=== PATIENT | female | born 1960 | race Caucasian/White ===

== ENCOUNTER 2019-10-13 06:00 | Outpatient (RCR) | payer MEDICARE, MEDICAID, SELFPAY | END 2019-11-12 00:01 | LOC: SPT 06:00 | PROVIDERS: Family Provider Family Medicine; Visit Provider Internal Medicine Nephrology | DX: I89.0 Lymphedema, not elsewhere classified (principal) | CPT/HCPCS: 97140 ==

== ENCOUNTER 2020-03-20 11:20 | Outpatient (CLI) | payer MEDICARE, MEDICAID, SELFPAY ==
--- NOTE | 2020-03-20 11:29 | XR_ITS ---
WS: [id number] PROCEDURE: XR chest 2V* [id number] CLINICAL INFORMATION: DYSPNEA, DIMINISHED LUNG SOUNDS COMPARISON: April 04, 2019 FINDINGS: Interval removal of the right central venous catheter. Heart: Cardiomegaly. Aortic calcification. Lungs: Hazy groundglass infiltrate in the right lower lobe. Recommend correlation for right lower lob e pneumonia. This can be further evaluated with chest CT. Left lung is well aerated. Bones: Mild thoracic curve convex left. XR/XR chest 2V* [id number] IMPRESSION: Hazy groundglass opacity in the right lower lobe suspicious for pneumonia. This can be further evaluated with CT. Recommend follow-up to resolution.
== END 2020-03-20 11:21 | disposition home or self-care (01) ==
LOC: RADWPI 11:26
PROVIDERS: Family Provider Family Medicine; PCP Family Medicine; Visit Provider Internal Medicine Nephrology
DX: R06.02 Shortness of breath (principal); R06.89 Other abnormalities of breathing; R06.00 Dyspnea, unspecified
CPT/HCPCS: 71046

== ENCOUNTER 2020-04-13 09:12 | Inpatient (IN) | payer MEDICARE, MEDICAID, SELFPAY ==
[2020-04-13] VITALS (29 sets, daily range): BP systolic 104–174; BP diastolic 51–83; PULSE 84–115; RESP 16–28; TEMP 37.7–39.1; O2SAT 95–99; BMI 42.0
--- NOTE | 2020-04-13 10:02 | ED_ITS ---
HPI - Nausea/Vomiting/Diarrhea General: Chief complaint: Nausea/Vomiting/Diarrhea Stated complaint: N/V Time Seen by Provider: 04/13/20 09:29 History of Present Illness: HPI Narrative: 59-year-old female presents the emergency room with complaint of nausea and vomiting for the last month or greater. She states about 2 months ago she was treated with doxycycline for a 10-day course for pneumonia her cough cleared up but she still had a persistent slight nonproductive cough after that. She is getting dry heaves where she has a frothy kind of vomit associated with chronic nausea. She uses promethazine for that she reports her appetite is been bad she denies any hematemesis coffee- ground emesis melena or black tarry stools she does report having measured temps at night up to 10 3-1 05 but they resolved and 90 9 in the morning she usually sees Dr. Bear and she follows with Dr. Lora for peritoneal dialysis which she does 1 exchange daily she is not had any change recently denies any cloudy fluid from her peritoneal dialysis changes. She has been seeing him via video message because of the recent COVID pandemic. Reports she is not been able to take food or fluids well the last several days she was here about a week ago some of those labs reviewed see the notes. MD elicited complaint: nausea and vomiting Pertinent past history: anorexia Onset (ago): minute(s) Description of vomiting: watery Associated nausea: Yes Associated abdominal pain: Yes Location of pain: Diffuse Pain consistency: constant Severity: severe Quality: cramping Exacerbating factors: eating Relieving factors: none Associated symtoms: Reports fatigue, malaise and nausea; Denies chest pain or dysuria Review of Systems Const: Reports: fever(s), chills, body aches, change in appetite, fatigue and malaise ENMT: Denies: throat pain, ear or mastoid pain, nasal discharge or nasal congestion Card: Denies: chest pain, edema, dyspnea on exertion or orthopnea Resp: Reports: non-productive cough; Denies: dyspnea or productive cough GI: Reports: nausea : Denies: flank pain, difficulty voiding, dysuria, urinary frequency or urinary urgency Skin/Breast: Denies: rash or pruritus PFS ED PFSH: Medical History Congestive heart failure Diabetes Diabetes mellitus type 2, insulin-dependent ESRD (end stage renal disease) On peritoneal dialysis. Followed by Dr. Lora Hyperlipidemia Hypertension Hypothyroidism Surgical History History of cholecystectomy History of lumbar surgery Due to epidural abscess in March 2018 Family History Mother Cancer Uterine and breast cancer Father Diabetes Other CAD (coronary artery disease) Social History Smoking and tobacco status: never smoked Alcohol intake: current Alcohol intake frequency: holidays/special occasions only Substance/Drug Use: never Physical Exam Const: GENERAL APPEARANCE: cooperative and comfortable NUTRITIONAL APPEARANCE: obese ORIENTATION/CONSCIOUSNESS: Yes awake, Yes oriented to person, Yes oriented to place and Yes oriented to time OTHER: Ill-appearing on presentation. HENMT: COMMON NORMALS: normocephalic, atraumatic, hearing grossly normal bilaterally, external ears normal, EAC's normal, TM's normal bilaterally, Normal nasal mucous membranes and turbinates present, moist oral mucous membranes and oropharynx normal HEAD & SCALP: normocephalic and atraumatic NOSE: Normal nasal mucous membranes and turbinates present EXTERNAL EAR: Yes external ears normal EXTERNAL AUDITORY CANAL: EAC's normal TYMPANIC MEMBRANE: TM's normal bilaterally Eye: COMMON NORMALS: Equal, round and reactive pupils present, EOMs intact bilaterally, conjunctivae normal and no scleral icterus CONJUNCTIVA: Yes conjunctivae normal PUPIL: Yes Equal, round and reactive pupils present Neck/C-Spine: COMMON NORMALS: full ROM, no lymphadenopathy, supple and no JVD Lymph: LYMPHATIC: no lymphadenopathy noted and no lymphedema noted Resp: COMMON NORMALS: normal respiratory effort, No retractions, No use of accessory muscles and clear to auscultation bilaterally AUSCULTATION: clear to auscultation bilaterally Cardio: COMMON NORMALS: no JVD, regular rate, regular rhythm and No murmurs present (Cardio) RATE: regular rate RHYTHM: regular rhythm GI: COMMON NORMALS: Soft to palpation and No hepatosplenomegaly present AUSCULTATION: Yes normoactive bowel sounds and Yes Hypoactive bowel sounds present PALPATION: Yes Soft to palpation, Yes Tenderness to palpation present (GI) (diffuse), No Guarding due to palpation present (GI) and Yes No hepatosplenomegaly present Extremity: COMMON NORMALS: normal to inspection NARRATIVE EXTREMITY EXAM: 3+ edema lower extremities bilaterally Neuro: SENSORIUM/ORIENTATION: Yes oriented to person, Yes oriented to place and Yes oriented to time Skin: COMMON NORMALS: no rashes or lesions noted GENERAL SKIN EXAM: no rashes or lesions noted Course Vital Signs: Vital signs: Vital Signs Temperature 99.2 F 04/14/20 15:08 Pulse Rate 87 04/14/20 15:08 Respiratory Rate 17 04/14/20 15:08 Blood Pressure 112/63 04/14/20 15:08 Pulse Oximetry 96 04/14/20 15:08 MDM - Nausea/Vomiting/Diarrhea Lab Data: Labs: Lab Results 04/13/20 04/13/20 04/13/20 Range/Units 09:30 10:40 10:40 WBC 17.2 H (4.0-10.0) 10^3/ uL RBC 2.63 L (4.1-5.3) 10^6/u L Hgb 8.5 L (11.5-15.3) g/dL Hct 27.1 L (37.0-47.0) % MCV 103.0 H (81-99) fL MCH 32.3 (28.0-34.0) pg MCHC 31.4 (30.0-36.0) g/dL RDW 12.6 (12.1-15.1) % Plt Count 298 (130-400) 10^3/c mm MPV 9.5 (7.4-10.4) fL Neut % (Auto) 82.4 % Lymph % (Auto) 4.7 % Calloway % (Auto) 11.8 % Eos % (Auto) 0.1 % Baso % (Auto) 0.2 % Neut # (Auto) 14.2 H (1.8-7.7) 10^3/u L Lymph # (Auto) 0.8 (0.8-4.8) 10^3/u L Calloway # (Auto) 2.0 H (0.2-0.9) 10^3/u L Eos # (Auto) 0.0 (0.0-0.8) 10^3/u L Baso # (Auto) 0.0 (0.0-0.1) 10^3/u L Nucleated RBC % (a uto) 0 % Nucleated RBCs # 0.0 /100WBC Specimen Type Sample Site ABG pH (7.35-7.45) ABG pCO2 (35-45) mmHg ABG pO2 (80.0-100.0) mmH g ABG HCO3 (22-26) mmol/L ABG O2 Saturation ABG Base Excess (-2.0-2.0) mmol/ L Jalil Test A-a O2 Gradient (5-10) mmHg Hematocrit (37-47) % Hgb O2 Saturation (95-100) % Carboxyhemoglobin (0.4-20.1) %THgb Methemoglobin (0.4-1.5) % Total Hemoglobin (12-16) g/dL Ionized Calcium (1.1-1.4) mmol/L O2 Delivery Device FiO2 % Pre K Teacher ID Sodium 129 L (136-145) mmol/L Potassium 4.0 (3.5-5.1) mmol/L Chloride 93 L (98-107) mmol/L Carbon Dioxide 16 L (22-29) mmol/L Anion Gap 24.0 H (5-19) BUN 74 H (6-20) mg/dL Creatinine 10.5 H* (0.5-0.9) mg/dL GFR Calculation 3.8 L (90-130) mL/min Glucose 171 H (65-115) mg/dL Calculated Osmolal ity 272 L (285-295) mOsm/k g Lactate (0.5-2.2) mmol/L Calcium 9.2 (8.5-10.5) mg/dL Total Bilirubin 0.9 (0.15-1.2) mg/dL AST 33 H (0-32) U/L ALT 29 (0-33) U/L Alkaline Phosphata se 89 (35-105) IU/L Total Protein 7.6 (6.6-8.7) g/dL Albumin 2.1 L (3.5-5.2) g/dL Globulin 5.5 H (1.3-4.6) g/dL Lipase 18 (13-60) U/L Urine Color Yellow (Yellow) Urine Appearance Cloudy (CLEAR) Urine pH 5 (5-7) Ur Specific Gravit y 1.015 (1.005-1.030) Urine Protein 3+ H (Negative) Urine Glucose (UA) 4+ H (Normal) Urine Ketones Negative (Negative) Urine Blood 3+ H (Negative) Urine Nitrate Negative (Negative) Urine Bilirubin Neg (NEGATIVE) Urine Urobilinogen Norm (Negative) mg/dL Ur Leukocyte Angélica ase Negative (Negative) Urine RBC 0-4 H (0-2) /hpf Urine WBC 0-4 H (0-5) /hpf Ur Squamous Epith Cells 5-10 H (0-5) Amorphous Sediment 1+ Urine Bacteria 2+ H (NONE) Serum Ketones (Negative) Influenza Type A A g (Negative) Influenza Type B A g (Negative) 04/13/20 04/13/20 04/13/20 Range/Units 10:40 10:40 10:47 WBC (4.0-10.0) 10^3/ uL RBC (4.1-5.3) 10^6/u L Hgb (11.5-15.3) g/dL Hct (37.0-47.0) % MCV (81-99) fL MCH (28.0-34.0) pg MCHC (30.0-36.0) g/dL RDW (12.1-15.1) % Plt Count (130-400) 10^3/c mm MPV (7.4-10.4) fL Neut % (Auto) % Lymph % (Auto) % Calloway % (Auto) % Eos % (Auto) % Baso % (Auto) % Neut # (Auto) (1.8-7.7) 10^3/u L Lymph # (Auto) (0.8-4.8) 10^3/u L Calloway # (Auto) (0.2-0.9) 10^3/u L Eos # (Auto) (0.0-0.8) 10^3/u L Baso # (Auto) (0.0-0.1) 10^3/u L Nucleated RBC % (a uto) % Nucleated RBCs # /100WBC Specimen Type Arterial Sample Site Radial, right ABG pH 7.37 (7.35-7.45) ABG pCO2 26.5 L (35-45) mmHg ABG pO2 74.9 L (80.0-100.0) mmH g ABG HCO3 15.3 L (22-26) mmol/L ABG O2 Saturation 96.3 ABG Base Excess -8.9 L (-2.0-2.0) mmol/ L Jalil Test Pos A-a O2 Gradient 40.9 H (5-10) mmHg Hematocrit 27.6 L (37-47) % Hgb O2 Saturation 94.0 L (95-100) % Carboxyhemoglobin 1.3 (0.4-20.1) %THgb Methemoglobin 1.0 (0.4-1.5) % Total Hemoglobin 9.0 L (12-16) g/dL Ionized Calcium 1.1 (1.1-1.4) mmol/L O2 Delivery Device Room air FiO2 21.0 % Pre K Teacher ID cak Sodium 130.0 L (136-145) mmol/L Potassium 3.7 (3.5-5.1) mmol/L Chloride (98-107) mmol/L Carbon Dioxide (22-29) mmol/L Anion Gap (5-19) BUN (6-20) mg/dL Creatinine (0.5-0.9) mg/dL GFR Calculation (90-130) mL/min Glucose 143.0 H (65-115) mg/dL Calculated Osmolal ity (285-295) mOsm/k g Lactate 1.4 (0.5-2.2) mmol/L Calcium (8.5-10.5) mg/dL Total Bilirubin (0.15-1.2) mg/dL AST (0-32) U/L ALT (0-33) U/L Alkaline Phosphata se (35-105) IU/L Total Protein (6.6-8.7) g/dL Albumin (3.5-5.2) g/dL Globulin (1.3-4.6) g/dL Lipase (13-60) U/L Urine Color (Yellow) Urine Appearance (CLEAR) Urine pH (5-7) Ur Specific Gravit y (1.005-1.030) Urine Protein (Negative) Urine Glucose (UA) (Normal) Urine Ketones (Negative) Urine Blood (Negative) Urine Nitrate (Negative) Urine Bilirubin (NEGATIVE) Urine Urobilinogen (Negative) mg/dL Ur Leukocyte Angélica ase (Negative) Urine RBC (0-2) /hpf Urine WBC (0-5) /hpf Ur Squamous Epith Cells (0-5) Amorphous Sediment Urine Bacteria (NONE) Serum Ketones Negative (Negative) Influenza Type A A g (Negative) Influenza Type B A g (Negative) 04/13/20 Range/Units 11:13 WBC (4.0-10.0) 10^3/ uL RBC (4.1-5.3) 10^6/u L Hgb (11.5-15.3) g/dL Hct (37.0-47.0) % MCV (81-99) fL MCH (28.0-34.0) pg MCHC (30.0-36.0) g/dL RDW (12.1-15.1) % Plt Count (130-400) 10^3/c mm MPV (7.4-10.4) fL Neut % (Auto) % Lymph % (Auto) % Calloway % (Auto) % Eos % (Auto) % Baso % (Auto) % Neut # (Auto) (1.8-7.7) 10^3/u L Lymph # (Auto) (0.8-4.8) 10^3/u L Calloway # (Auto) (0.2-0.9) 10^3/u L Eos # (Auto) (0.0-0.8) 10^3/u L Baso # (Auto) (0.0-0.1) 10^3/u L Nucleated RBC % (a uto) % Nucleated RBCs # /100WBC Specimen Type Sample Site ABG pH (7.35-7.45) ABG pCO2 (35-45) mmHg ABG pO2 (80.0-100.0) mmH g ABG HCO3 (22-26) mmol/L ABG O2 Saturation ABG Base Excess (-2.0-2.0) mmol/ L Jalil Test A-a O2 Gradient (5-10) mmHg Hematocrit (37-47) % Hgb O2 Saturation (95-100) % Carboxyhemoglobin (0.4-20.1) %THgb Methemoglobin (0.4-1.5) % Total Hemoglobin (12-16) g/dL Ionized Calcium (1.1-1.4) mmol/L O2 Delivery Device FiO2 % Pre K Teacher ID Sodium (136-145) mmol/L Potassium (3.5-5.1) mmol/L Chloride (98-107) mmol/L Carbon Dioxide (22-29) mmol/L Anion Gap (5-19) BUN (6-20) mg/dL Creatinine (0.5-0.9) mg/dL GFR Calculation (90-130) mL/min Glucose (65-115) mg/dL Calculated Osmolal ity (285-295) mOsm/k g Lactate (0.5-2.2) mmol/L Calcium (8.5-10.5) mg/dL Total Bilirubin (0.15-1.2) mg/dL AST (0-32) U/L ALT (0-33) U/L Alkaline Phosphata se (35-105) IU/L Total Protein (6.6-8.7) g/dL Albumin (3.5-5.2) g/dL Globulin (1.3-4.6) g/dL Lipase (13-60) U/L Urine Color (Yellow) Urine Appearance (CLEAR) Urine pH (5-7) Ur Specific Gravit y (1.005-1.030) Urine Protein (Negative) Urine Glucose (UA) (Normal) Urine Ketones (Negative) Urine Blood (Negative) Urine Nitrate (Negative) Urine Bilirubin (NEGATIVE) Urine Urobilinogen (Negative) mg/dL Ur Leukocyte Angélica ase (Negative) Urine RBC (0-2) /hpf Urine WBC (0-5) /hpf Ur Squamous Epith Cells (0-5) Amorphous Sediment Urine Bacteria (NONE) Serum Ketones (Negative) Influenza Type A A g Negative (Negative) Influenza Type B A g Negative (Negative) Discharge Plan Discharge Patient Disposition: Admitted As Inpatient Admit Provider: Mona Angel Clinical Impression: Peritoneal dialysis catheter in place, Diabetes, ESRD (end stage renal disease), Bacterial peritonitis Condition: Stable Discharge Date/Time: 04/13/20 14:35 Coding Level of Care Code ED Director Of Patient Care for Ankitg Fwd Exam Comprehensive
--- NOTE | 2020-04-13 10:20 | ECG_ITS ---
Measurements Intervals [place] Rate: 110 P: 52 AL: 172 QRS: -2 QRSD: 99 T: 68 QT: 320 QTc: 435 SINUS TACHYCARDIA LEFT ATRIAL ENLARGEMENT [-0.15mV P WAVE IN V1/V2] LEFT VENTRICULAR HYPERTROPHY AND ST-T CHANGE [VOLTAGE CRITERIA PLUS ST/T AB ABNORMALITY] Compared to ECG 04/04/2019 23:21:43 Atrial abnormality now present ST (T wave) deviation now present Sinus rhythm no longer present T-wave abnormality no longer present Electronically Signed On 04-13-2020 17:04:02 CDT by Abdiel Harmon M.D. [email or web address]
--- NOTE | 2020-04-13 10:20 | XR_ITS ---
WS: [id number] XR chest 1V portable [id number] REASON FOR EXAM: dyspnea/cough FINDINGS: Comparisons were made to March 20, 2020. The nodular deformity in the right lower lung has res olved. We note no definite lesions in the area. The lung martin show no pneumonia, pleural effusion, pulmonary edema. The heart mediastinum were normal. XR/XR chest 1V portable [id number] IMPRESSION: Today's findings negative chest
[2020-04-13] MEDS: ondansetron 2 mg/ML SDV 2 mL 4 MG IVP ×2 (10:38→13:05)
[2020-04-13 10:44] LABS: Basophils % 0.2 %; Eosinophils % 0.1 %; Hematocrit 27.1 % (37.0-47.0); Hemoglobin 8.5 g/dL (11.5-15.3); Lymphocytes # 0.8 10^3/uL (0.8-4.8); Lymphocytes % 4.7 %; Mean Corpuscular HGB Conc 31.4 g/dL (30.0-36.0); Mean Corpuscular Hemoglobin 32.3 pg (28.0-34.0); Mean Platelet Volume 9.5 fL (7.4-10.4); Monocytes % 11.8 %; Neutrophils # 14.2 10^3/uL (1.8-7.7); Neutrophils % 82.4 %; Nucleated Red Blood Cells % 0 %; Platelet Count 298 10^3/cmm (130-400); Red Blood Count 2.63 10^6/uL (4.1-5.3); Red Cell Distribution Width 12.6 % (12.1-15.1); White Blood Count 17.2 10^3/uL (4.0-10.0)
[2020-04-13] MEDS: cefTRIAXone 2,000 MG in sodium chloride 0.9% (plus) 50 ML 100 MG IV (10:49)
[2020-04-13 10:55] LABS: Ketone (Acetest) Serum Negative (Negative)
[2020-04-13 10:58] LABS: ABG PCO2 26.5 mmHg (35-45); ABG PH Result 7.37 (7.35-7.45); Alveolar-Arterial Oxygen Gradi 40.9 mmHg (5-10); Arterial Blood Gas Hematocrit 27.6 % (37-47); Base Excess ABG -8.9 mmol/L (-2.0-2.0); Blood Gas Allen Test Pos; Blood Gas Sample Site Radial, right; Blood Gas Sample Type Arterial; Carboxyhemoglobin 1.3 %THgb (0.4-20.1); HCO3 ABG 15.3 mmol/L (22-26); Ionized Calcium Level - ABG 1.1 mmol/L (1.1-1.4); Oxygen Device ROOM AIR; Oxygen Saturation ABG 96.3; PO2 ABG 74.9 mmHg (80.0-100.0); Potassium Level - ABG 3.7 mmol/L (3.5-5.0)
[2020-04-13 11:05] LABS: Alanine Aminotransferase 29 U/L (0-33); Albumin Level 2.1 g/dL (3.5-5.2); Alkaline Phosphatase 89 IU/L (35-105); Aspartate Amino Transferase 33 U/L (0-32); Blood Urea Nitrogen 74 mg/dL (6-20); Calcium 9.2 mg/dL (8.5-10.5); Carbon Dioxide 16 mmol/L (22-29); Chloride 93 mmol/L (98-107); Globulin 5.5 g/dL (1.3-4.6); Glomerular Filtration Rate 3.8 mL/min (90-130); Glucose 171 mg/dL (65-115); Lipase 18 U/L (13-60); Osmolality Calculated 272 mOsm/kg (285-295); Sodium 129 mmol/L (136-145); Total Bilirubin 0.9 mg/dL (0.15-1.2); Total Protein 7.6 g/dL (6.6-8.7)
[2020-04-13 11:06] LABS: Lactate (Lactic Acid level) 1.4 mmol/L (0.5-2.2)
[2020-04-13 11:30] LABS: Add Urine Microscopic? YES; Bilirubin Urine Neg (NEGATIVE); Blood Urine 3+ (Negative); Glucose Urine UA 4+ (Normal); Ketones Urine Negative (Negative); Leukocyte Esterase Urine Negative (Negative); Nitrate Urine Negative (Negative); Protein Urine 3+ (Negative); Specific Gravity, Urine 1.015 (1.005-1.030); Urine Appearance Cloudy (CLEAR); Urine Color Yellow (Yellow); Urobilinogen Urine Norm (Negative); pH Urine 5 (5-7)
[2020-04-13 11:36] LABS: Amorphous Sediment Urine 1+; RBC Urine 0-4 /hpf (0-2); WBC Urine 0-4 /hpf (0-5)
[2020-04-13 11:37] LABS: Add Urine Culture? Yes; Bacteria Urine 2+
[2020-04-13 11:42] LABS: Influenza A by IFA Negative (Negative); Influenza B by IFA Negative (Negative)
--- NOTE | 2020-04-13 11:56 | CT_ITS ---
WS: [id number] CT abdomen pelvis wo con [id number] REASON FOR EXAM: abd pain IV CONTRAST ADMINISTERED: Without TOTAL EXAM DLP: 1399.[address] scans at [facility] use at least one of these dose optimization techniques: automat ed exposure control; mA and/or kV adjustment per patient size (includes targeted exams where dose is matched to clinical indication); or iterative reconstruction. FINDINGS: The mediastinum was normal as well as the lower lungs. The liver showed no infiltrating changes. Gallbladder surgically absent. The spleen, stomach, adrenal glands are all normal. The right and left adrenal glands are enlarged and hypodense. The right and left kidneys show normal appearance no stones or hydronephrosis. The umbilical area was normal The large bowel in the right was normal no appendicitis seen. In the lower mid line of the abdomen is a catheter extends from the area just adjacent to the paraumb ilical area and is seated in the midline. The urinary bladder was normal. The descending colon as well as the sigmoid colon was essentially normal. A contracted uterus is seen. The pelvis show normal appearance bony structures and the lumbar spine degenerate changes no destruct nery changes. In the soft tissue of the back appears to be some edema this changes of the subcutaneous area and muscles. There is heavy arteriosclerotic changes of the vasculature. CT/CT abdomen pelvis wo con [id number] IMPRESSION: A catheter is seen in the midline of the lower abdomen and adequate position Bilateral enlargement of the adrenal glands. The posterior soft tissues suggests low-grade anasarca. Heavy arteriosclerotic changes of the vasculature.
--- NOTE | 2020-04-13 12:20 | PM.HP ---
Providers/Chief Complaint Admitting Physician: Mona Angel DO Primary Care Provider: Karen Bear MD Chief Complaint: N/V History of Present Illness Alesia Shaw is a 59 year old female with a past medical history of end-stage renal disease on peritoneal dialysis, hypertension, diastolic congestive heart failure, history of an epidural abscess, hypothyroidism and diabetes that presented to the emergency department today for nausea, vomiting, diarrhea for 1 month. Patient reported that she is also been having fever for the past 1 month. Patient reports that she has had a fever at home as high as 105. She stated that is typically worse at night. She reports that she has been having intractable nausea, vomiting and diarrhea that is been bad for 1 month but is become worse over the past 2 weeks. She stated that she has discussed this with providers via telemedicine. She reported that she was diagnosed with pneumonia and completed a course of doxycycline. She has had a dry intermittent cough for the past 1 month, no sputum production, no hemoptysis. Patient denies any exposure to CO VID-19. Patient reports that her nausea will occur throughout the day, no significant association with time or eating. She reports loose diarrhea stools, has been on recent antibiotics for pneumonia as noted. She reports that she is also on well water, her at home has not been sick. She notes some occasional vague abdominal discomfort, no sharp or stabbing pains. Patient reports having history of MRSA with a history of an epidural abscess that was treated at [facility] in [facility] in 2018. She denies any rashes or skin changes. She reports history of chronic lymphedema in the lower extremities of which she is on torsemide. Patient reports that she has not been able to keep down any food or water over the past few days due to worsening nausea, vomiting and diarrhea. Patient was seen and evaluated in the emergency department noted to have concern for sepsis with concern for spontaneous bacterial peritonitis. She was given Rocephin 2 g once and requested for admission to the hospital. Due to her length of symptoms CT scan of the abdomen and pelvis, without contrast due to contrast allergy, was requested. Nephrology consulted. Review of Systems Const: Reports: fever(s) and chills Eyes: Denies: change in vision ENMT: Denies: nasal congestion Card: Reports: edema; Denies: chest pain or palpitations Resp: Reports: non-productive cough; Denies: dyspnea, productive cough or hemoptysis GI: Reports: nausea, vomiting and diarrhea; Denies: abdominal pain, constipation, hematochezia or melena : Denies: dysuria or hematuria Musc: Denies: extremity pain or muscle cramps Skin/Breast: Denies: rash or new lesions Neuro: Denies: headache(s) or dizziness Psych: Denies: anxiety or depression Endo: Denies: polyuria or hot flashes Jimmy/Lymph: Denies: easy bruising or easy bleeding Medications/Allergies Home Medications Medication Instructions Recorded Confirmed Last Taken Type carvedilol 25 mg tablet 12.5 mg PO BID 04/02/20 04/13/20 04/12/20 History clonidine HCl 0.1 mg tablet 0.1 mg PO TID PRN 04/02/20 04/13/20 Unknown History levothyroxine 150 mcg tablet 150 mcg PO DAILY 04/02/20 04/13/20 04/13/20 History promethazine 25 mg tablet 25 mg PO QID PRN 04/02/20 04/13/20 Unknown History sodium bicarbonate 650 mg tablet 650 mg PO BID 04/02/20 04/13/20 04/12/20 History torsemide 20 mg tablet 40 mg PO DAILY PRN tab 04/02/20 04/13/20 Unknown History ergocalciferol (vitamin D2) 1,250 mcg PO DAILY 04/13/20 04/13/20 04/12/20 History insulin NPH and regular human See Rx Instructions .ROUTE .COMPLEX 04/13/20 04/13/20 04/13/20 History [Novolin 70/30 U-100 Insulin] vit B [id number]-M-ibtet ac-zinc 1 tab PO DAILY 04/13/20 04/13/20 04/12/20 History [RenaPlex] Allergies Allergy/AdvReac Type Severity Reaction Status Date / Time codeine Allergy Unknown Verified 04/02/20 10:56 Iodinated Contrast Media Allergy ALGY-Hives Verified 04/02/20 10:56 insulin detemir AdvReac Unknown Verified 04/02/20 10:56 [From Levemir U-100 Insulin] insulin glargine AdvReac Unknown Verified 04/02/20 10:56 [From Lantus U-100 Insulin] PFSH Acute PFSH: Medical History Congestive heart failure Diabetes Diabetes mellitus type 2, insulin-dependent ESRD (end stage renal disease) On peritoneal dialysis. Followed by Dr. Lora Hyperlipidemia Hypertension Hypothyroidism Surgical History History of cholecystectomy History of lumbar surgery Due to epidural abscess in March 2018 Family History Mother Cancer Uterine and breast cancer Father Diabetes Other CAD (coronary artery disease) Social History (Updated 04/13/20 @ 13:39 by Mona Angel DO) Smoking and tobacco status: never smoked Alcohol intake: current Alcohol intake frequency: holidays/special occasions only Substance/Drug Use: never Vitals/I&O/Wt Last Vital Signs Temp 101.6 F H 04/13/20 09:22 Pulse 94 04/13/20 09:42 Resp 16 04/13/20 11:16 BP 127/77 04/13/20 09:42 Pulse Ox 98 04/13/20 09:42 04/12/20 04/13/20 04/13/20 22:59 06:59 14:59 Intake Total 50 / 50 Balance 50 / 50 Weight last 48 hrs Weight 121.563 kg Physical Exam Const: COMMON NORMALS: patient oriented x3 and alert GENERAL APPEARANCE: cooperative and ill appearing ORIENTATION/CONSCIOUSNESS: Yes awake, Yes oriented to person, Yes oriented to place and Yes oriented to time HENMT: COMMON NORMALS: normocephalic and atraumatic HEAD & SCALP: normocephalic and atraumatic Eye: COMMON NORMALS: Equal, round and reactive pupils present PUPIL: Yes Equal, round and reactive pupils present Neck/C-Spine: COMMON NORMALS: supple GENERAL: Yes normal visual inspection Resp: COMMON NORMALS: normal respiratory effort and clear to auscultation bilaterally EFFORT & INSPECTION: Yes able to speak in complete sentences AUSCULTATION: clear to auscultation bilaterally, no crackles, no rales, no rhonchi and no wheezes Cardio: COMMON NORMALS: regular rhythm and No murmurs present (Cardio) RATE: tachycardic RHYTHM: regular rhythm GI: OTHER: Soft, mild diffuse tenderness, no guarding or rigidity, PD catheter site in place with no surrounding erythema or drainage. Normal bowel sounds : COMMON NORMALS: Yes no CVA tenderness BLADDER/KIDNEY EXAM: Yes no CVA tenderness Extremity: NARRATIVE EXTREMITY EXAM: 4+ pitting edema in the lower extremities bilaterally Neuro: COMMON NORMALS: patient oriented x3, CN's II-XII intact bilaterally, moves all extremities and no focal motor deficits SENSORIUM/ORIENTATION: Yes alert, Yes oriented to person, Yes oriented to place and Yes oriented to time SPEECH: speech normal Psych: COMMON NORMALS: mental status grossly normal and cooperative Skin: COMMON NORMALS: no rashes or lesions noted GENERAL SKIN EXAM: no rashes or lesions noted Data : 04/13/20 10:40 04/13/20 13:55 CT Abd/Pel: I personally reviewed and interpreted this imaging study as follows: Radiologist's impression: FINDINGS: The mediastinum was normal as well as the lower lungs. The liver showed no infiltrating changes. Gallbladder surgically absent. The spleen, stomach, adrenal glands are all normal. The right and left adrenal glands are enlarged and hypodense. The right and left kidneys show normal appearance no stones or hydronephrosis. The umbilical area was normal The large bowel in the right was normal no appendicitis seen. In the lower mid line of the abdomen is a catheter extends from the area just adjacent to the paraumbilical area and is seated in the midline. The urinary bladder was normal. The descending colon as well as the sigmoid colon was essentially normal. A contracted uterus is seen. The pelvis show normal appearance bony structures and the lumbar spine degenerate changes no destructive changes. In the soft tissue of the back appears to be some edema this changes of the subcutaneous area and muscles. There is heavy arteriosclerotic changes of the vasculature. CT/CT abdomen pelvis wo con [id number] IMPRESSION: A catheter is seen in the midline of the lower abdomen and adequate position Bilateral enlargement of the adrenal glands. The posterior soft tissues suggests low-grade anasarca. Heavy arteriosclerotic changes of the vasculature. CXR: I personally reviewed and interpreted this imaging study as follows: Radiologist's impression: FINDINGS: Comparisons were made to March 20, 2020. The nodular deformity in the right lower lung has resolved. We note no definite lesions in the area. The lung martin show no pneumonia, pleural effusion, pulmonary edema. The heart mediastinum were normal. XR/XR chest 1V portable [id number] IMPRESSION: Today's findings negative chest A&P Assessment and plan (1) Bacterial peritonitis: Concern for bacterial peritonitis in the setting of peritoneal dialysis Admit to ICU Given 2g Rocephin in the ED, will continue Nephrology consulted while patient was in the ED, appreciate recommendations and assistance in patient's care. Would recommend to have peritoneal fluid obtained for further fluid studies. Blood cultures ordered and pending Status: Acute (2) ESRD (end stage renal disease): Patient is on peritoneal dialysis, followed by Dr. Lora Nephrology consulted. Patient with metabolic acidosis and hyponatremia Status: Acute (3) Diabetes: Patient is on insulin 70/30, 35 units in the morning and 30 units at bedtime Status: Acute (4) Sepsis: Secondary to bacterial peritonitis. Blood cultures ordered and pending, urine culture ordered and pending, will obtain peritoneal fluid for culture and further studies Lactic acid ordered with reflex Close monitoring in the ICU Given IV fluids in the ED, will check serial sodium Status: Acute (5) Hyponatremia: In the setting of patient being on peritoneal dialysis, on torsemide, intractable nausea vomiting and diarrhea that is been worse over the past several weeks. Serial sodium checks Given IV fluids, normal saline while in the ED, will recheck sodium and determine further management at that time. Patient with significant lower extremity edema with prior diagnoses of diastolic congestive heart failure Will check urine sodium, patient reports that she still makes some urine despite being on dialysis Status: Acute (6) Metabolic acidosis: Secondary to sepsis Status: Acute Additional A&P Information Hypothyroidism: TSH within normal limits, continue home levothyroxine Anemia: no active bleeding, appears to be related to chronic disease DVT ppx: Heparin DIet: NPO due to intractable nausea and vomiting Code status: Full code, discussed with patient. Attestations Medical Necessity Statement*: Patient requires ICU admission due to sepsis with continued fever, end-stage renal disease on dialysis with concern for acute hyponatremia and bacterial peritonitis. Expected stay greater than 2 midnights Coding Level of Care Code Acute Outpatient Scheduler for Chg Fwd Exam Comprehensive Diagnoses Bacterial peritonitis K65.9 ESRD (end stage renal disease) N18.6 Diabetes E11.9 Sepsis A41.9 Hyponatremia E87.1 Metabolic acidosis E87.2
[2020-04-13] MEDS: sodium chloride 0.9% 1,000 ML 999 ML IV (12:21)
--- NOTE | 2020-04-13 13:11 | US_ITS ---
WS: [id number] RENAL ULTRASOUND URINARY BLADDER ULTRASOUND HISTORY: Sepsis, UTI COMPARISON: 08/15/2018 TECHNIQUE: 2-D and color Doppler imaging of the kidney submitted. Right kidney: 13.3 cm x 6.6 cm x 5.6 cm. Normal echogenicity with no hydronephrosis or mass. Left kidney: 12.8 cm x 4.7 cm x 6.3 cm. Normal size kidney. The kidney is difficult to visualize due to body habitus. No hydronephrosis. Aorta: Normal. Urinary Bladder: Slightly distended urinary bladder. No intraluminal filling defect. Poor visualizati on of the urinary bladder. US/US renal BI* [id number] IMPRESSION: 1. Limited evaluation of the LEFT kidney and urinary bladder. 2. No hydronephrosis. 3. No atrophy.
[2020-04-13 14:25] LABS: Sodium 130 mmol/L (136-145); Thyroid Stimulating Hormone 1.76 uIU/mL (0.27-4.20)
[2020-04-13] MEDS: heparin 5,000 unit/mL INJ 1 mL 5000 UNIT SUBCUT (15:05)
[2020-04-13] MEDS: sodium chloride 0.9% 1,000 ML 100 ML IV (15:05)
[2020-04-13] MEDS: promethazine 25 mg Tablet PO (15:13)
[2020-04-13] MEDS: acetaminophen 325 mg Tablet 650 MG PO (15:36)
[2020-04-13 16:52] LABS: Lactic Sepsis W/Reflex 0.8 mmol/L (0.5-2.2)
[2020-04-13 16:54] LABS: Glucose Point of Care 130 mg/dL (70-110)
[2020-04-13 17:12] LABS: Body Fluid Polynuclear #Cells 0.019 10^3/uL; Body Fluid WBC 71 /uL; Monocytes # Body Fluid 0.052 10^3/uL; RBC, Body Fluid 0 10^3/uL (0-0)
[2020-04-13] MEDS: insulin aspart 70/30 100 units/1 mL 15 UNIT SUBCUT (17:12)
[2020-04-13] MEDS: sodium bicarbonate 650 mg Tablet PO (17:13)
[2020-04-13] MEDS: carvedilol 12.5 mg Tablet PO (17:13)
[2020-04-13 17:16] LABS: Magnesium 1.6 mg/dL (1.7-2.3); Phosphorus 5.4 mg/dL (2.5-4.5)
[2020-04-13 18:31] LABS: Color, Body Fluid PALE YELLOW (PALE YELLOW)
[2020-04-13 18:32] LABS: Apprearance, Body Fluid CLEAR (CLEAR)
[2020-04-13 18:34] LABS: Body Fluid Specific Gravity 1.015
[2020-04-13 18:35] LABS: PATH Referral YES
[2020-04-13 19:08] LABS: Fluid Alkaline Phos. 5 IU/L
[2020-04-13 19:09] LABS: Albumin Body Fluid 0.4 g/dL; Amylase Body Fluid 3 U/L; Cholesterol Body Fluid 7 mg/dL (0-200); LDH Body Fluid 42 U/L; Total Protein Body Fluid 1 g/dL; Triglycerides Body Fluid 16 mg/dL (0-150); Uric Acid Body Fluid 9 mg/dL
[2020-04-13 19:56] LABS: Glucose Point of Care 96 mg/dL (70-110)
[2020-04-13 20:25] LABS: Anion Gap 20.6 (5-19); Blood Urea Nitrogen 76 mg/dL (6-20); Calcium 8.3 mg/dL (8.5-10.5); Carbon Dioxide 15 mmol/L (22-29); Chloride 98 mmol/L (98-107); Glomerular Filtration Rate 3.8 mL/min (90-130); Glucose 94 mg/dL (65-115); Osmolality Calculated 269 mOsm/kg (285-295); Potassium 3.6 mmol/L (3.5-5.1); Sodium 130 mmol/L (136-145)
--- NOTE | 2020-04-13 21:32 | PM.CONSULT ---
Providers/Reason For Consult Consulting Physican/Specialty*: telenephrology Reason for Consult*: ESRD care Attending Physician: Mona Angel DO Primary Care Provider: Karen Bear MD History of Present Illness History of Present Illness Alesia Shaw is a 59 year old female with a past medical history of end-stage renal disease on peritoneal dialysis, hypertension, diastolic congestive heart failure, history of an epidural abscess, hypothyroidism and diabetes. Pt was admitted w/ a 1 month h/o n/v/d/abd pain, and recently fevers. She was recently diagnosed with pneumonia and treated w/ doxycycline. She has had a dry intermittent cough for the past 1 month No known exposure to COVID-19. Patient reports having history of MRSA with a history of an epidural abscess that was treated at [facility] in [facility] in 2018. Review of Systems General: Reports: 10 or more systems reviewed and unremarkable except in HPI and below Narrative: weak, fevers, headaches, nausea, no sob, no cp. + dry cough, + abd pain, + edema, depressed/ anxious over clinical situation Meds/Allergies Home Medications and Allergies Home Medications Medication Instructions Recorded Confirmed Last Taken Type carvedilol 25 mg tablet 12.5 mg PO BID 04/02/20 04/13/20 04/12/20 History clonidine HCl 0.1 mg tablet 0.1 mg PO TID PRN 04/02/20 04/13/20 Unknown History levothyroxine 150 mcg tablet 150 mcg PO DAILY 04/02/20 04/13/20 04/13/20 History promethazine 25 mg tablet 25 mg PO QID PRN 04/02/20 04/13/20 Unknown History sodium bicarbonate 650 mg tablet 650 mg PO BID 04/02/20 04/13/20 04/12/20 History torsemide 20 mg tablet 40 mg PO DAILY PRN tab 04/02/20 04/13/20 Unknown History ergocalciferol (vitamin D2) 1,250 mcg PO DAILY 04/13/20 04/13/20 04/12/20 History insulin NPH and regular human See Rx Instructions .ROUTE .COMPLEX 04/13/20 04/13/20 04/13/20 History [Novolin 70/30 U-100 Insulin] vit B [id number]-tpbxk ac-zinc 1 tab PO DAILY 04/13/20 04/13/20 04/12/20 History [RenaPlex] Allergies Allergy/AdvReac Type Severity Reaction Status Date / Time codeine Allergy Unknown Verified 04/02/20 10:56 Iodinated Contrast Media Allergy ALGY-Hives Verified 04/02/20 10:56 insulin detemir AdvReac Unknown Verified 04/02/20 10:56 [From Levemir U-100 Insulin] insulin glargine AdvReac Unknown Verified 04/02/20 10:56 [From Lantus U-100 Insulin] Current Medications Current Medications Generic Name Dose Route Start Last Admin Trade Name Freq PRN Reason Stop Dose Admin Acetaminophen 650 mg 04/13/20 14:35 04/13/20 15:36 Tylenol PO 650 mg Q6H PRN Administration MILD PAIN Carvedilol 12.5 mg 04/13/20 18:00 04/13/20 17:13 Coreg PO 12.5 mg BID SHELBY Administration Heparin Sodium (Beef Lung) 5,000 unit 04/13/20 14:35 04/13/20 15:05 Heparin SUBCUT 5,000 unit Q12H SHELBY Administration Sodium Chloride 1,000 mls @ 100 mls/hr 04/13/20 14:35 04/13/20 15:05 Sodium Chloride 0.9% IV 100 mls/hr .Q10H SHELBY Administration Insulin Aspart 0 unit 04/13/20 18:00 04/13/20 16:59 Novolog SUBCUT Not Given TIDWM SHELBY Protocol Insulin Aspart 0 unit 04/13/20 21:00 04/13/20 20:39 Novolog SUBCUT Not Given BEDTIME SHELBY Protocol Insulin Aspart 15 unit 04/13/20 18:00 04/13/20 17:12 Novolog 70/30 SUBCUT 15 unit 0800,1800 SHELBY Administration Promethazine HCl 25 mg 04/13/20 14:35 04/13/20 15:13 Phenergan PO 25 mg QID PRN Administration Nausea Sodium Bicarbonate 650 mg 04/13/20 18:00 04/13/20 17:13 Sodium Bicarbonate PO 650 mg BID SHELBY Administration PFSH Acute PFSH: Medical History Congestive heart failure Diabetes Diabetes mellitus type 2, insulin-dependent ESRD (end stage renal disease) On peritoneal dialysis. Followed by Dr. Lora Hyperlipidemia Hypertension Hypothyroidism Surgical History History of cholecystectomy History of lumbar surgery Due to epidural abscess in March 2018 Family History Mother Cancer Uterine and breast cancer Father Diabetes Other CAD (coronary artery disease) Social History (Updated 04/13/20 @ 13:39 by Mona Angel DO) Smoking and tobacco status: never smoked Alcohol intake: current Alcohol intake frequency: holidays/special occasions only Substance/Drug Use: never Vitals/I&O/Wt Last Vital Signs Temp 101.3 F H 04/13/20 17:15 Pulse 86 04/13/20 20:00 Resp 18 04/13/20 20:00 BP 126/65 04/13/20 20:00 Pulse Ox 96 04/13/20 20:00 04/13/20 04/13/20 04/13/20 06:59 14:59 22:59 Intake Total 50 / 50 Balance 50 / 50 Weight last 48 hrs Weight 121.563 kg Physical Exam Narrative: EXAM NARRATIVE: uncomfortable, in bed NARD Heent- nc/at, eomi neck no jvp lungs crackles b/l heart reg abd soft, nt, +BS, + peritoneal dialysis catheter- c/d/i ext ++ b/l edema neuro- a,a, o x 3 Data Micro: Micro: Microbiology 04/13/20 10:45 Blood Culture - Pr eliminary Blood SPECIMEN [facility] BRYANNA 04/13/20 10:40 Blood Culture - Pr eliminary Blood SPECIMEN [facility] A&P Additional A&P Information 59 yr old female ESRD,hypothyroidism, IDDM, diastolic dysfunction, h/o MRSA epidual abscess. recent doxycycline use. 1. fevers and leukocytosis- PD fluids only 71 wbc -low for Peritonitis- will repeat in am -will give vancomycin 1 gm iv -LDH 2. ESRD- will do CAPD 4 exchanges of 2.5% gluc, 2 l fills 3. BP low for her- dec meds 4. anemia- check spep/ sife, iron studies- Q if due to fevers 5. abd pain- neg CT scan. monitor w/ PD and abx 6. hypothyroidiam- check tsh 7. hyponatremia- monitor w/ CAPD 8. Bone- minerla -metabelism of ESRD- check phos and pth -may need a binder if eating well 9. replace mag 10. enlarged adrenal glands on CT scan- per hospitalist. consider outpt endo eval Consult Attestations Medical Necessity Statement: fevers/ ESRD Time Spent in Patient Care: Greater than 35 minutes Coding Level of Care Code Acute Stretching Machine Operator for Gregorio Thompson
[2020-04-13] MEDS: vancomycin 1,000 MG in sodium chloride 0.9% 250 ML 250 MG IV (22:39)
[2020-04-13] MEDS: Dianeal low Ca w/2.5% dex 2,000 mL Bag 2000 ML INTRAPERIT (22:41)
[2020-04-14] VITALS (39 sets, daily range): BP systolic 106–153; BP diastolic 53–84; PULSE 84–92; RESP 9–25; TEMP 36.8–38.1; O2SAT 90–97
[2020-04-14] MEDS: sodium chloride 0.9% 1,000 ML 100 ML IV (00:56)
[2020-04-14] MEDS: heparin 5,000 unit/mL INJ 1 mL 5000 UNIT SUBCUT ×2 (01:44→13:40)
[2020-04-14] MEDS: Dianeal low Ca w/2.5% dex 2,000 mL Bag 2000 ML INTRAPERIT ×5 (06:09→23:08)
[2020-04-14 06:15] LABS: Hemoglobin 6.6 g/dL (11.5-15.3); Mean Corpuscular HGB Conc 31.7 g/dL (30.0-36.0); Mean Platelet Volume 9.8 fL (7.4-10.4); Nucleated Red Blood Cells % 0 %; Platelet Count 238 10^3/cmm (130-400); Red Blood Count 2.06 10^6/uL (4.1-5.3); Red Cell Distribution Width 12.7 % (12.1-15.1); White Blood Count 13.6 10^3/uL (4.0-10.0)
[2020-04-14 06:23] LABS: Iron 22 ug/dL (37-145); Magnesium 1.8 mg/dL (1.7-2.3); Percent Saturation 34.3 % (20-50); Phosphorus 6.2 mg/dL (2.5-4.5); Total Iron Binding Capacity 64 mcg/dl; Unsaturated Iron Binding 42 ug/dL (112-347)
[2020-04-14 06:25] LABS: Alanine Aminotransferase 29 U/L (0-33); Albumin Level 1.7 g/dL (3.5-5.2); Alkaline Phosphatase 68 IU/L (35-105); Anion Gap 21.8 (5-19); Aspartate Amino Transferase 39 U/L (0-32); Blood Urea Nitrogen 74 mg/dL (6-20); Calcium 8.3 mg/dL (8.5-10.5); Carbon Dioxide 15 mmol/L (22-29); Chloride 98 mmol/L (98-107); Globulin 4.2 g/dL (1.3-4.6); Glomerular Filtration Rate 3.7 mL/min (90-130); Glucose 128 mg/dL (65-115); Osmolality Calculated 273 mOsm/kg (285-295); Potassium 3.8 mmol/L (3.5-5.1); Sodium 131 mmol/L (136-145); Total Bilirubin 0.8 mg/dL (0.15-1.2); Total Protein 5.9 g/dL (6.6-8.7)
[2020-04-14 06:40] LABS: Parathyroid Hormone 68.2 pg/mL (15-65)
[2020-04-14 06:41] LABS: Hematocrit 20.8 % (37.0-47.0)
[2020-04-14 06:42] LABS: Ferritin 2611 ng/mL (15-150)
[2020-04-14 06:43] LABS: Calcium 4.8 mg/dL (8.5-10.5)
--- NOTE | 2020-04-14 07:02 | PM.PN ---
Subjective Subjective: Interval history: weak, diarrhea, sob. nausea, fevers Medications: Reviewed: Yes Medication Review Details: Current Medications Acetaminophen (Tylenol) 650 mg PO Q6H PRN PRN Reason: MILD PAIN Last Admin: 04/13/20 15:36 Dose: 650 mg Documented by: Carvedilol (Coreg) 12.5 mg PO BID [facility] Last Admin: 04/13/20 17:13 Dose: 12.5 mg Documented by: Dextrose (D50w) 25 ml IVP ONCE PRN; Protocol PRN Reason: hypoglycemia protocol Dextrose (D50w) 50 ml IVP PRN PRN; Protocol PRN Reason: hypoglycemia protocol Ergocalciferol (Vitamin D2) 50,000 unit PO SuWe@0600 [facility] Glucagon (Glucagen) 1 mg IM ONCE PRN; Protocol PRN Reason: Adult Acute Hypoglycemia Prot. Heparin Sodium (Beef Lung) (Heparin) 5,000 unit SUBCUT Q12H [facility] Last Admin: 04/14/20 01:44 Dose: 5,000 unit Documented by: Ceftriaxone Sodium 2,000 mg/ (Sodium Chloride) 50 mls @ 100 mls/hr IV Q24H SHELBY; Protocol Dextrose (D5w) 500 mls @ 100 mls/hr IV ONCE PRN; Protocol PRN Reason: Adult Acute Hypoglycemia Prot Sodium Chloride (Sodium Chloride 0.9%) 1,000 mls @ 100 mls/hr IV .Q10H [facility] Last Admin: 04/14/20 00:56 Dose: 100 mls/hr Documented by: Insulin Aspart (Novolog) 0 unit SUBCUT TIDWM [facility]; Protocol Last Admin: 04/13/20 16:59 Dose: Not Given Documented by: Insulin Aspart (Novolog) 0 unit SUBCUT BEDTIME [facility]; Protocol Last Admin: 04/13/20 20:39 Dose: Not Given Documented by: Insulin Aspart (Novolog 70/30) 15 unit SUBCUT 0800,1800 [facility] Last Admin: 04/13/20 17:12 Dose: 15 unit Documented by: Levothyroxine Sodium (Synthroid) 150 mcg PO DAILY [facility] Naloxone HCl (Narcan) 0.1 mg IVP Q2M PRN PRN Reason: RESPIRATORY RATE < 8/MIN Non-Formulary Medication (Vit B Rhtroys-X-Vycqn Ac-Zinc [Renaplex]) 1 tab PO DAILY [facility] Peritoneal Dialysis Solution (Dianeal Low Ca W/2.5% Dex) 2,000 ml INTRAPERIT 5XD SHELBY Last Admin: 04/14/20 06:09 Dose: 2,000 ml Documented by: Promethazine HCl (Phenergan) 25 mg PO QID PRN PRN Reason: Nausea Last Admin: 04/13/20 15:13 Dose: 25 mg Documented by: Vitals/I&O/Wt Last Vital Signs Temp 98.5 F 04/14/20 03:42 Pulse 87 04/14/20 04:00 Resp 19 H 04/14/20 04:00 BP 126/63 04/14/20 04:00 Pulse Ox 94 04/14/20 04:00 04/13/20 04/14/20 04/14/20 22:59 06:59 14:59 Intake Total 1287 / 1337 Balance 1287 / 1337 Weight last 48 hrs Weight 121.563 kg Physical Exam Narrative: EXAM NARRATIVE: comfortable, in bed NARD, sob Heent- nc/at, eomi neck no jvp lungs crackles b/l heart reg abd soft, nt, +BS, + peritoneal dialysis catheter- c/d/i ext ++ b/l edema neuro- a,a, o x 3 Data : 04/14/20 05:25 04/14/20 05:25 Micro: Microbiology 04/13/20 18:05 C.difficile Toxin B Gene (PCR) - Final Stool - Stool Aspirate 04/13/20 14:57 Gram Stain - Final Peritoneal Fluid 04/13/20 10:45 Blood Culture - Preliminary Blood SPECIMEN COLLECTED 04/13/20 10:40 Blood Culture - Preliminary Blood SPECIMEN COLLECTED A&P Additional A&P Information 59 yr old female ESRD,hypothyroidism, IDDM, diastolic dysfunction, h/o MRSA epidual abscess. recent doxycycline use. 1. fevers and leukocytosis- PD fluids only 71 wbc -low for Peritonitis- will repeat cell count and gram stain today -monitor vanco levels -LDH -i am concerned that anemia and fevers may be related- please eval for Malignancy and rheum causes of fevers 2. ESRD- will do CAPD 5exchanges of 2.5% gluc, 2 l fills 3. BP is good 4. anemia- check spep/ sife -high ferritin and iron studies -consider tx 2 u prbc -start epo 5. abd pain- neg CT scan. monitor w/ PD and abx c diff negative 6. hypothyroidiam- check tsh 7. hyponatremia- monitor w/ CAPD 8. Bone- mineral -metabelism of ESRD- start phos binder - pth is low for her- no calcitriol 9. metabolic acidosis- from diarrhea and renal failure- monitor 10. enlarged adrenal glands on CT scan- per hospitalist. consider outpt endo eval 11. repeat calcium as both 8.3 and 4.8 discussed w/ pt and RN Attestations Medical Necessity Statement*: anemia, fevers, ESRD Time Spent in Patient Care: Greater than 35 minutes Coding Level of Care Code Acute Dairy Farmer for Gregorio Thompson
[2020-04-14 07:08] LABS: Hematocrit 23.1 % (37.0-47.0); Hemoglobin 7.3 g/dL (11.5-15.3)
[2020-04-14 07:21] LABS: Glucose Point of Care 158 mg/dL (70-110)
--- NOTE | 2020-04-14 07:32 | CT_ITS ---
WS: [id number] CT chest wo con [id number] REASON FOR EXAM: Fever uncertain origin, cough IV CONTRAST ADMINISTERED: None. TOTAL EXAM DLP: 867.[address] scans at [facility] use at least one of these dose optimization techniques: automat ed exposure control; mA and/or kV adjustment per patient size (includes targeted exams where dose is matched to clinical indication); or iterative reconstruction. FINDINGS: Ascites is seen in the abdomen. The liver shows no infiltrating changes. There is heavy arteriosclerotic changes of the coronary arteries. The peripheral lung show no definite consolidation or pneumonia no pulmonary edema. The thoracic spine shows degenerated changes. CT/CT chest wo con [id number] IMPRESSION: Ascites. the lungs show no definite infiltrates.
[2020-04-14] MEDS: carvedilol 12.5 mg Tablet PO ×2 (08:49→17:46)
[2020-04-14] MEDS: levothyroxine 150 mcg Tablet PO (08:49)
[2020-04-14] MEDS: insulin aspart 70/30 100 units/1 mL 15 UNIT SUBCUT ×2 (08:49→17:46)
[2020-04-14] MEDS: calcium acetate 667 mg Capsule 1334 MG PO ×4 (08:49→17:46)
--- NOTE | 2020-04-14 08:49 | MR_ITS ---
WS: [id number] MRI THORACIC SPINE noncontrast. HISTORY: fever, bacteremia, history of epidural abscess T11-T12 COMPARISON: None available. TECHNIQUE: Multiplanar sequences are performed in sagittal and axial planes. Study is compromised by motion artifact. No contrast was given for this examination therefore epidura l abscess may not be visualized. No fractures or increased STIR or T2 signal within the vertebral bodies to suggest osteomyelitis or d iscitis. Large postsurgical defects in the lower thoracic spine at T11 and T12 from prior decompressi on. There is a linear area of abnormal signal in the conus centered at the T11-12 level. Abnormal signal extends over length of 2.5 cm. On the sagittal image this is predominantly within the midline of the dorsal cord. This is also at the level of the prior surgery. There is no mass effect upon the cord. T here is slight enlargement and widening of the conus. MR/MR thoracic spin wo con* [id number] IMPRESSION: 1. No significant mass effect or cord compression. 2. Linear abnormal T2 signal in the intramedullary cord at the T11-12 level ex tending over a length of 2.5 cm. Signal abnormality within the dorsal midline o f the cord. Differential includes cord infarct, demyelinating lesion and transv erse myelitis/HIV myelitis. Neoplasm thought less likely but cannot be excluded . Additional possible lesions to consider are vitamin deficiency such as B12 an d copper.
--- NOTE | 2020-04-14 08:49 | MR_ITS ---
WS: [id number] MRI LUMBAR SPINE NONCONTRAST HISTORY: fever, bacteremia, history of epidural abscess COMPARISON: 04/05/2018. TECHNIQUE: Sagittal and axial multisequence imaging is submitted. Study was terminated early due to patient discomfort. Prior posterior decompression from T11 to L1 of the posterior vertebral bodies. Previous the describe d abscess at the T11-12 location. Conus tapers to the L1 level. There is mild displacement of the conus and the nerve roots probably du e to adhesions. There is thickening of the nerve roots extending from the conus with clumping and tet felicitas from arachnoiditis. No acute marrow edema. L1-L2: No significant stenosis. L2-L3: Diffuse asymmetric disc osteophyte disease with significant encroachment into the LEFT lateral recess and foramen. Unchanged. L3-L4: Severe central canal stenosis due to ligamentum flavum disease and facet arthritis. Central di sc protrusion is also present. L4-L5: There is a large disc osteophyte complex centrally causing deformity of the ventral thecal sac . Marked clumping of the nerve roots. Similar to the prior study. L5-S1: Osteophytic ridging. No significant stenosis or change. Large amount of fluid in the peritoneal cavity. Marked atrophy of the muscles in the paraspinal regio n and the psoas muscles. MR/MR lumbar spine wo con* [id number] IMPRESSION: 1. Limited evaluation due to lack of contrast and motion and early termination of the study due to patient discomfort. 2. Multilevel areas of central and foraminal stenosis are stable since 04/05/20 18. 3. Decompression of the thoracolumbar spine from T11 to L1 secondary to the pr eviously described epidural abscess. The abscess is no longer present. 4. Again noted is the vague area of increased signal in the posterior thoracic cord at the T11-12 level. See MRI thoracic spine report. 5. 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 6. There is significant stenosis within the lumbar spine as described above. S imilar to the prior study of 04/05/2018.
--- NOTE | 2020-04-14 08:53 | USCV_ITS ---
Shaw, Susan Age: 59 Gender: F : 1960 Exam Date: 04/14/2020 11:04 Ordering Phys: Mona Angel DO Technologist: Janey Millard Exam Location[place] [facility] [place]ication: BACTEREMIA BP: 119 / 53 HR: 85 Rhythm: Sinus Technical Quality: Adequate MEASUREMENTS (Male / Female) Normal Values 2D ECHO LV Diastolic Diameter PLAX 5.4 cm 4.2 - 5.9 / 3.9 - 5.3 cm LV Systolic Diameter PLAX 2.6 cm LV Chamber Size 4.4 cm IVS Diastolic Thickness 0.9 cm 0.6 - 1.0 / 0.6 - 0.9 cm IVS Systolic Thickness 1.6 cm LVPW Diastolic Thickness 1.8 cm 0.6 - 1.0 / 0.6 - 0.9 cm LVPW Systolic Thickness 1.8 cm RV Chamber Size 3.1 cm LVOT Diameter 2.0 cm LV Ejection Fraction 2D Teich 83.3 % LV Ejection Fraction MOD 2C 40.3 % LV Ejection Fraction 2C AL 40.4 % LA Diameter 4.1 cm LA Width 3.6 cm LA Height 5.1 cm RA Width 3.8 cm RA Height 4.1 cm Aorta at Sinotubular Diameter 3.7 cm M-MODE LV Diastolic Diameter MM 5.3 cm 4.2 - 5.9 / 3.9 - 5.3 cm LV Systolic Diameter MM 3.5 cm LV Ejection Fraction MM Teich 62.1 % IVS Diastolic Thickness MM 1.2 cm 0.6 - 1.0 / 0.6 - 0.9 cm IVS Systolic Thickness MM 1.3 cm LVPW Diastolic Thickness MM 1.2 cm 0.6 - 1.0 / 0.6 - 0.9 cm LVPW Systolic Thickness MM 1.9 cm RV Diastolic Diameter MM 1.1 cm Aortic Annulus Diameter 3.0 cm LA Ao Ratio MM 1.4 MV E Point Septal Separation 0.6 cm DOPPLER AV Peak Velocity 181.0 cm/s LVOT Peak Velocity 85.0 cm/s AV Area Cont Eq vti 2.2 cm squared AV Area Cont Eq pk 1.6 cm squared MV Area PHT 4.4 cm squared Mitral E to A Ratio 1.2 MV E' Velocity 9.0 cm/s Mitral E to MV E' Ratio 11.3 Mitral E to LV E' Lateral Ratio 11.4 Mitral E to LV E' Septal Ratio 11.3 TR Peak Velocity 224.8 cm/s TR Peak Gradient 20.2 mmHg TR Mean Velocity 158.6 cm/s TR Mean Gradient 11.6 mmHg TR Velocity Time Integral 51.5 cm Right Atrial Pressure 5.0 mmHg Pulmonary Artery Systolic Pressu 25.2 mmHg PV Peak Velocity 71.0 cm/s RV Acceleration Time 0.1 s RV Ejection Time 0.3 s RV AcT/ET 0.5 FINDINGS Left Ventricle Normal left ventricular size and systolic function, EF 55 %. No gross wall motion normalities Right Ventricle Normal right ventricular size and systolic function. Right Atrium Normal right atrial size. Left Atrium Normal left atrial size. Mitral Valve No gross abnormalities noted Aortic Valve Thickened aortic valve. Tricuspid Valve Mild tricuspid valve regurgitation. Pulmonic Valve Pulmonic valve not well visualized. Pericardium No pericardial effusion. Aorta Normal aortic annulus size. CONCLUSIONS Normal left ventricular size and systolic function, EF 55 %. No gross wall motion normalities. Thickened aortic valve. Mild tricuspid valve regurgitation. There is no pericardial effusion. There are no intracardiac masses. Comparison with the previous study is difficult because of the difference in the technical quality. Consider ERIN, if clinically indicated Dr Elizabeth Gaines MD FACC (Electronically Signed) Final Date: 14 April 2020 20:57 S
[2020-04-14 09:06] LABS: C Reactive Protein 165.4 mg/L (0.0-4.9); Lactate Dehydrogenase 240 U/L (135-214)
--- NOTE | 2020-04-14 09:12 | P.PN_ITS ---
Subjective Subjective: Interval history: Patient awake in bed at time of exam today. Discussed with patient positive blood culture that just returned prior to entering the room. She reported understanding, discussed with her the need for further imaging of her thoracic and lumbar spine. Patient verbalized understanding and agreed. Discussed with patient about HIV testing, she verbalized understanding and agreed with plan. Patient reports that nausea is improved today, no further abdominal pain, continues to have loose stools. Reports chronic nonproductive cough. Patient denies any myalgias or arthralgias Medications: Reviewed: Yes Medication Review Details: Current Medications Acetaminophen (Tylenol) 650 mg PO Q6H PRN PRN Reason: MILD PAIN Last Admin: 04/13/20 15:36 Dose: 650 mg Documented by: Carvedilol (Coreg) 12.5 mg PO BID SHELBY Last Admin: 04/13/20 17:13 Dose: 12.5 mg Documented by: Dextrose (D50w) 25 ml IVP ONCE PRN; Protocol PRN Reason: hypoglycemia protocol Dextrose (D50w) 50 ml IVP PRN PRN; Protocol PRN Reason: hypoglycemia protocol Ergocalciferol (Vitamin D2) 50,000 unit PO SuWe@0600 SHELBY Glucagon (Glucagen) 1 mg IM ONCE PRN; Protocol PRN Reason: Adult Acute Hypoglycemia Prot. Heparin Sodium (Beef Lung) (Heparin) 5,000 unit SUBCUT Q12H SHELBY Last Admin: 04/14/20 01:44 Dose: 5,000 unit Documented by: Ceftriaxone Sodium 2,000 mg/ (Sodium Chloride) 50 mls @ 100 mls/hr IV Q24H SHELBY; Protocol Dextrose (D5w) 500 mls @ 100 mls/hr IV ONCE PRN; Protocol PRN Reason: Adult Acute Hypoglycemia Prot Sodium Chloride (Sodium Chloride 0.9%) 1,000 mls @ 100 mls/hr IV .Q10H SHELBY Last Admin: 04/14/20 00:56 Dose: 100 mls/hr Documented by: Insulin Aspart (Novolog) 0 unit SUBCUT TIDWM SHELBY; Protocol Last Admin: 04/13/20 16:59 Dose: Not Given Documented by: Insulin Aspart (Novolog) 0 unit SUBCUT BEDTIME SHELBY; Protocol Last Admin: 04/13/20 20:39 Dose: Not Given Documented by: Insulin Aspart (Novolog 70/30) 15 unit SUBCUT 0800,1800 SHELBY Last Admin: 04/13/20 17:12 Dose: 15 unit Documented by: Levothyroxine Sodium (Synthroid) 150 mcg PO DAILY [facility] Naloxone HCl (Narcan) 0.1 mg IVP Q2M PRN PRN Reason: RESPIRATORY RATE < 8/MIN Non-Formulary Medication (Vit B [id number] Ac-Zinc [Renaplex]) 1 tab PO DAILY [facility] Peritoneal Dialysis Solution (Dianeal Low Ca W/2.5% Dex) 2,000 ml INTRAPERIT 5XD [facility] Last Admin: 04/14/20 06:09 Dose: 2,000 ml Documented by: Promethazine HCl (Phenergan) 25 mg PO QID PRN PRN Reason: Nausea Last Admin: 04/13/20 15:13 Dose: 25 mg Documented by: Vitals/I&O/Wt Last Vital Signs Temp 99.4 F 04/14/20 08:00 Pulse 18 L 04/14/20 08:00 Resp 18 04/14/20 08:00 BP 133/73 04/14/20 08:00 Pulse Ox 95 04/14/20 08:00 04/13/20 04/14/20 04/14/20 22:59 06:59 14:59 Intake Total 1287 / 1337 Balance 1287 / 1337 Weight last 48 hrs Weight 121.563 kg Physical Exam Const: COMMON NORMALS: patient oriented x3 and alert GENERAL APPEARANCE: cooperative and ill appearing ORIENTATION/CONSCIOUSNESS: Yes awake, Yes or iented to person, Yes oriented to place and Yes oriented to time HENMT: COMMON NORMALS: normocephalic and atraumatic HEAD & SCALP: normocephalic and atraumatic Eye: COMMON NORMALS: Equal, round and reactive pupils present PUPIL: Yes Equal, round and reactive pupils present Neck/C-Spine: COMMON NORMALS: supple GENERAL: Yes normal visual inspection Resp: COMMON NORMALS: normal respiratory effort and clear to auscultation bilaterally EFFORT & INSPECTION: Yes able to speak in complete sentences AUSCULTATION: clear to auscultation bilaterally, no crackles, no rales, no rhonchi and no wheezes Cardio: COMMON NORMALS: regular rate, regular rhythm and No murmurs present (Cardio) RATE: regular rate RHYTHM: regular rhythm GI: OTHER: Obese, soft, no tenderness today, PD catheter in place with no surrounding erythema or drainage : COMMON NORMALS: Yes no CVA tenderness BLADDER/KIDNEY EXAM: Yes no CVA tenderness Back/Pelvis: COMMON NORMALS: no CVA tenderness Extremity: NARRATIVE EXTREMITY EXAM: 4+ pitting edema in the lower extremities bilaterally Neuro: COMMON NORMALS: patient oriented x3, CN's II-XII intact bilaterally, moves all extremities and no focal motor deficits SENSORIUM/ORIENTATION: Yes alert, Yes oriented to person, Yes oriented to place and Yes oriented to time SPEECH: speech normal Psych: COMMON NORMALS: mental status grossly normal and cooperative Skin: COMMON NORMALS: no rashes or lesions noted GENERAL SKIN EXAM: no rash es or lesions noted Data : 04/14/20 07:03 04/14/20 05:25 Micro: Microbiology 04/14/20 08:40 Blood Culture - Preliminary Blood SPECIMEN COLLECTED 04/14/20 08:40 Blood Culture - Preliminary Blood SPECIMEN COLLECTED 04/13/20 10:40 Blood Culture - Preliminary Blood Gram positive cocci 04/13/20 18:05 C.difficile Toxin B Gene (PCR) - Final Stool - Stool Aspirate 04/13/20 14:57 Gram Stain - Final Peritoneal Fluid 04/13/20 10:45 Blood Culture - Preliminary Blood SPECIMEN COLLECTED A&P Assessment and plan (1) Bacterial peritonitis: Concern for bacterial peritonitis in the setting of peritoneal dialysis on initial exam due to her underlying symptoms. Patient's gram stain shows no organisms and further culture pending. In the setting of PD she does have WBC of 71. Will continue on Rocephin at this time until further culture returns Nephrology consulted while patient was in the ED, appreciate recommendations and assistance in patient's care. Status: Acute (2) ESRD (end stage renal disease): Patient is on peritoneal dialysis, followed by Dr. Lora Nephrology consulted, continue PD as recommended Status: Acute (3) Diabetes: Patient is on insulin 70/30, 35 units in the morning and 30 units at bedtime. Decreased to 15 units in the morning and 15 units at bedtime due to intractable nausea and vomiting Status: Acute (4) Sepsis: Concern initially for perotinitis Patient has been reporting fever for approx 1 month Blood culture returned today with 1/4 bottles positive for gram positive cocci with history of epidural abscess in 03/2018 will further evaluate with MRI of the thoracic and lumbar spine Fluid cultures showing no organisms on gram stain, will follow up with culture and continue on Rocephin and Vancomycin at this time Urine culture pending Repeat blood culture today ECHO ordered due to bacteremia Status: Acute (5) Hyponatremia: In the setting of patient being on peritoneal dialysis, on torsemide, intractable nausea vomiting and diarrhea that is been worse Slow improvement concern for SIADH Status: Acute (6) Metabolic acidosis: Secondary to sepsis Status: Acute Additional A&P Information Recurrent fevers: this has been progressive over the past month. Appreciate nephrology consultation. Checking several lab studies to determine if this could be related to hematologic process versus infections versus rheumatologic process. WILLIAM, rheumatoid factor, peripheral smear with manual diff, ESR, CRP. With question of hemotologic process will check reticulocyte count, LDH, B12, folate. Also now presence of positive blood culture as noted above. Will continue on empiric antibiotics and with history of epidural abscess will check MRI of spine. CT chest ordered due to fever for 1 month and cough. Stool cultures pending. Perotineal fluid shows no organisms on gram stain, WBC 71, do not believe this is related to BP at this time and concern for underlying staph infection due to past medical history of MRSA abscess. Hypothyroidism: TSH within normal limits, continue home levothyroxine Chronic lymphedema Anemia: Macrocytic anemia, peripheral smear, manual diff added. Ferritin elevated, no evidence of any neurologic involvement, LFTs with only very slight AST elevation. Secondary hyperparathyroidism in the setting of dialysis History of epidural abscess T11-T12 in 03/2018: Repeat MRI of the thoracic and lumbar spine ordered DVT ppx: Heparin DIet: Clear liquid diet Code status: Full code, discussed with patient. Attestations Medical Necessity Statement*: Patient requires further hospitalization due to sepsis secondary to bacteremia, ESRD with history of epidural abscess. Coding Level of Care Code Acute Lifestyle Block Farmer for Chg Fwd Exam Comprehensive Diagnoses Bacterial peritonitis K65.9 ESRD (end stage renal disease) N18.6 Diabetes E11.9 Sepsis A41.9 Hyponatremia E87.1 Metabolic acidosis E87.2
[2020-04-14 09:14] LABS: LAB Peripheral Smear Sent for Review
[2020-04-14 09:19] LABS: Absolute Segmented Neutrophil 10.3 10/cmm (1.6-7.1); Band Neutrophils Absolute 2.2 10^3/cmm (0.0-1.2); Segmented Neutrophils 76 %; Total Cells Counted 100 (0-100)
[2020-04-14 09:20] LABS: Absolute Neutrophil 12.5 10^3/cmm (1.4-6.5); Platelet Estimate Normal (Normal); Rouleau 1+
[2020-04-14 09:30] LABS: Erythrocyte Sedimentation Rate > 120 mm/hr (0-15); Folate Level > 20.0 ng/mL (4.8-37.3); Vitamin B12 > 2000 pg/mL (232-1245)
[2020-04-14 09:35] LABS: HIV 1 & 2 Antibody Non-Reactive (Non-Reactiv); HIV 1 & 2 Antigen Non-Reactive (Non-Reactiv)
[2020-04-14 09:47] LABS: Hepatitis A Antibody IgM Non-Reactive (Nonreactive); Hepatitis B Core AB, Total Non-Reactive (Nonreactive); Hepatitis B Surface AB 60.4 (0-8.5); Hepatitis B Surface Antigen Non-Reactive (Nonreactive); Hepatitis C Virus Antibody Non-Reactive (Nonreactive)
[2020-04-14 10:09] LABS: INR 1.51 (0.8-1.2)
[2020-04-14 10:15] LABS: Lymphocytes 0 %; Lymphocytes Absolute 0.1 10^3/cmm (1.2-3.4)
[2020-04-14] MEDS: cefTRIAXone 2,000 MG in sodium chloride 0.9% (plus) 50 ML 100 MG IV (10:40)
[2020-04-14 11:17] LABS: Glucose Point of Care 161 mg/dL (70-110)
[2020-04-14] MEDS: LORazepam 1 mg Tablet PO (11:35)
[2020-04-14] MEDS: sodium chloride 0.9% (100 ml) 100 ML 50 ML (13:39)
[2020-04-14 15:17] LABS: Apprearance, Body Fluid CLEAR (CLEAR); Color, Body Fluid COLORLESS (PALE YELLOW)
[2020-04-14 15:20] LABS: Body Fluid WBC 11 /uL; RBC, Body Fluid 0 10^3/uL (0-0)
[2020-04-14 15:23] LABS: PATH Referral YES
[2020-04-14] MEDS: sodium chloride 0.9% (100 ml) 100 ML 125 ML (17:40)
[2020-04-14 17:55] LABS: Glucose Point of Care 233 mg/dL (70-110)
--- NOTE | 2020-04-14 18:20 | PC.NURSE ---
shift review Patient taken for chest CT this AM, taken by bed, she tolerated well. Patient taken for MRI if spine at approximately 1230, this nurse went with her, she tolerated most of the scan well, but towards the end began experiencing lower back pain. Once patient was back on the EMS stretcher, and able to sit up, the bck pain was relieved. Once back to her room at approximately 1330, patient was placed back in bed, and her blood transfusions were started. Patient gave consent for blood products. Patient tolerated first transfusion well. Second transfusion started. This nurse performed PD dialysis x3.
[2020-04-14 21:42] LABS: Glucose Point of Care 212 mg/dL (70-110)
[2020-04-14 23:12] LABS: Basophils # 0.1 10^3/uL (0.0-0.1); Basophils % 0.4 %; Eosinophils # 0.4 10^3/uL (0.0-0.8); Eosinophils % 2.8 %; Hematocrit 27.3 % (37.0-47.0); Hemoglobin 9.1 g/dL (11.5-15.3); Lymphocytes # 0.6 10^3/uL (0.8-4.8); Lymphocytes % 4.2 %; Mean Corpuscular HGB Conc 33.3 g/dL (30.0-36.0); Mean Corpuscular Hemoglobin 32.6 pg (28.0-34.0); Mean Corpuscular Volume 97.8 fL (81-99); Mean Platelet Volume 9.4 fL (7.4-10.4); Monocytes # 1.4 10^3/uL (0.2-0.9); Monocytes % 9.9 %; Neutrophils # 11.4 10^3/uL (1.8-7.7); Neutrophils % 80.6 %; Nucleated Red Blood Cells % 0 %; Platelet Count 292 10^3/cmm (130-400); Red Blood Count 2.79 10^6/uL (4.1-5.3); Red Cell Distribution Width 14.9 % (12.1-15.1); White Blood Count 14.1 10^3/uL (4.0-10.0)
[2020-04-15] VITALS (24 sets, daily range): BP systolic 110–149; BP diastolic 50–78; PULSE 68–84; RESP 13–23; TEMP 37.1–37.9; O2SAT 92–100
[2020-04-15] MEDS: acetaminophen 325 mg Tablet 650 MG PO ×2 (03:02→13:12)
[2020-04-15] MEDS: heparin 5,000 unit/mL INJ 1 mL 5000 UNIT SUBCUT ×2 (03:02→14:59)
[2020-04-15 05:34] LABS: Basophils # 0.1 10^3/uL (0.0-0.1); Basophils % 0.4 %; Eosinophils # 0.5 10^3/uL (0.0-0.8); Eosinophils % 3.6 %; Hemoglobin 8.5 g/dL (11.5-15.3); Lymphocytes # 0.6 10^3/uL (0.8-4.8); Lymphocytes % 4.2 %; Mean Corpuscular HGB Conc 32.7 g/dL (30.0-36.0); Mean Corpuscular Volume 97.7 fL (81-99); Mean Platelet Volume 9.5 fL (7.4-10.4); Monocytes # 1.4 10^3/uL (0.2-0.9); Monocytes % 10.5 %; Neutrophils # 10.4 10^3/uL (1.8-7.7); Neutrophils % 77.1 %; Nucleated Red Blood Cells % 0 %; Platelet Count 271 10^3/cmm (130-400); Red Blood Count 2.66 10^6/uL (4.1-5.3); White Blood Count 13.5 10^3/uL (4.0-10.0)
[2020-04-15 05:51] LABS: Alanine Aminotransferase 34 U/L (0-33); Albumin Level 1.8 g/dL (3.5-5.2); Alkaline Phosphatase 80 IU/L (35-105); Anion Gap 22.5 (5-19); Aspartate Amino Transferase 36 U/L (0-32); Blood Urea Nitrogen 73 mg/dL (6-20); Calcium 8.9 mg/dL (8.5-10.5); Carbon Dioxide 17 mmol/L (22-29); Chloride 97 mmol/L (98-107); Globulin 4.4 g/dL (1.3-4.6); Glomerular Filtration Rate 3.7 mL/min (90-130); Glucose 224 mg/dL (65-115); Osmolality Calculated 282 mOsm/kg (285-295); Potassium 3.5 mmol/L (3.5-5.1); Sodium 133 mmol/L (136-145); Total Bilirubin 1.7 mg/dL (0.15-1.2); Total Protein 6.2 g/dL (6.6-8.7)
[2020-04-15] MEDS: Dianeal low Ca w/2.5% dex 2,000 mL Bag 2000 ML INTRAPERIT ×4 (06:23→23:01)
[2020-04-15] MEDS: ergocalciferol (vitamin D2) 50,000 Unit Capsule 50000 UNIT PO (06:53)
[2020-04-15 06:54] LABS: Phosphorus 5.7 mg/dL (2.5-4.5)
[2020-04-15 07:47] LABS: Glucose Point of Care 225 mg/dL (70-110)
[2020-04-15] MEDS: carvedilol 12.5 mg Tablet PO ×2 (07:52→17:33)
[2020-04-15] MEDS: levothyroxine 150 mcg Tablet PO (07:52)
[2020-04-15] MEDS: calcium acetate 667 mg Capsule 1334 MG PO ×3 (07:52→17:33)
[2020-04-15] MEDS: insulin aspart 70/30 100 units/1 mL 15 UNIT SUBCUT (07:54)
[2020-04-15 08:13] LABS: INR 1.33 (0.8-1.2)
--- NOTE | 2020-04-15 09:07 | PM.PN ---
Subjective Subjective: Interval history: feels better. had low grade temp overnight. still w/ poor appetite and nausea. some sob, leg edema. Medications: Reviewed: Yes Medication Review Details: Current Medications Acetaminophen (Tylenol) 650 mg PO Q6H PRN PRN Reason: MILD PAIN Last Admin: 04/15/20 03:02 Dose: 650 mg Documented by: Calcium Acetate (Phoslo) 1,334 mg PO TIDWM SHELBY Last Admin: 04/15/20 07:52 Dose: 1,334 mg Documented by: Carvedilol (Coreg) 12.5 mg PO BID SHELBY Last Admin: 04/15/20 07:52 Dose: 12.5 mg Documented by: Dextrose (D50w) 25 ml IVP ONCE PRN; Protocol PRN Reason: hypoglycemia protocol Dextrose (D50w) 50 ml IVP PRN PRN; Protocol PRN Reason: hypoglycemia protocol Ergocalciferol (Vitamin D2) 50,000 unit PO SuWe@0600 SHELBY Last Admin: 04/15/20 06:53 Dose: 50,000 unit Documented by: Glucagon (Glucagen) 1 mg IM ONCE PRN; Protocol PRN Reason: Adult Acute Hypoglycemia Prot. Heparin Sodium (Beef Lung) (Heparin) 5,000 unit SUBCUT Q12H SHE[place] Last Admin: 04/15/20 03:02 Dose: 5,000 unit Documented by: Ceftriaxone Sodium 2,000 mg/ (Sodium Chloride) 50 mls @ 100 mls/hr IV Q24H SHELBY; Protocol Last Admin: 04/14/20 10:40 Dose: 100 mls/hr Documented by: Dextrose (D5w) 500 mls @ 100 mls/hr IV ONCE PRN; Protocol PRN Reason: Adult Acute Hypoglycemia Prot Vancomycin HCl 1,000 mg/ (Sodium Chloride) 250 mls @ 250 mls/hr IV Q72H SHE[place]; Protocol Insulin Aspart (Novolog) 0 unit SUBCUT TIDWM SHE[place]; Protocol Last Admin: 04/15/20 07:53 Dose: 8 unit Documented by: Insulin Aspart (Novolog) 0 unit SUBCUT BEDTIME [facility]; Protocol Last Admin: 04/14/20 21:50 Dose: 3 unit Documented by: Insulin Aspart (Novolog 70/30) 15 unit SUBCUT 0800,1800 SHELBY Last Admin: 04/15/20 07:54 Dose: 15 unit Documented by: Levothyroxine Sodium (Synthroid) 150 mcg PO DAILY [facility] Last Admin: 04/15/20 07:52 Dose: 150 mcg Documented by: Naloxone HCl (Narcan) 0.1 mg IVP Q2M PRN PRN Reason: RESPIRATORY RATE < 8/MIN Non-Formulary Medication (Vit B Qzbxzui-[id number]-[id number] Ac-Zinc [Renaplex]) 1 tab PO DAILY [facility] Peritoneal Dialysis Solution (Dianeal Low Ca W/2.5% Dex) 2,000 ml INTRAPERIT 5XD [facility] Last Admin: 04/15/20 06:23 Dose: 2,000 ml Documented by: Promethazine HCl (Phenergan) 25 mg PO QID PRN PRN Reason: Nausea Last Admin: 04/13/20 15:13 Dose: 25 mg Documented by: Vitals/I&O/Wt Last Vital Signs Temp 98.7 F 04/15/20 06:00 Pulse 70 04/15/20 08:00 Resp 20 H 04/15/20 08:00 BP 141/68 04/15/20 08:00 Pulse Ox 99 04/15/20 08:00 04/14/20 04/15/20 04/15/20 22:59 06:59 14:59 Intake Total 2700 / 2700 2000 / 4700 460 / 460 Output Total 5700 / 5700 Balance 2700 / 2700 -3700 / -1000 460 / 460 Weight last 48 hrs Weight 126.099 kg Weight 126.099 kg Weight 121.563 kg Physical Exam Narrative: EXAM NARRATIVE: comfortable, in bed, sitting up Heent- nc/at, eomi neck no jvp lungs crackles b/l heart reg abd soft, nt, +BS, + peritoneal dialysis catheter- c/d/i ext ++ b/l edema neuro- a,a, o x 3 Data : 04/15/20 05:16 04/15/20 05:16 Micro: Microbiology 04/14/20 08:40 Blood Culture - Preliminary Blood NEGATIVE TO DATE 04/14/20 08:40 Blood Culture - Preliminary Blood NEGATIVE TO DATE 04/13/20 14:57 Gram Stain - Final Peritoneal Fluid 04/13/20 10:45 Blood Culture - Preliminary Blood NEGATIVE TO DATE 04/13/20 10:40 Blood Culture - Preliminary Blood Gram positive cocci 04/13/20 18:05 Enteric Pathogens (PCR) - Final Stool - Stool Aspirate Parasite Antigen Panel - Final C.difficile Toxin B Gene (PCR) - Final 04/13/20 09:30 Urine Culture - Preliminary Urine,Clean Catch 04/14/20 04:09 Gram Stain - Final Peritoneal Fluid A&P Additional A&P Information 59 yr old female ESRD,hypothyroidism, IDDM, diastolic dysfunction, h/o MRSA epidual abscess. recent doxycycline use. 1. fevers and leukocytosis- gram + cocci bacteremia in 2/4 cultures -abx as per hospitalist - PD fluids only 71 wbc -and dec yesterday, unlikely peritonitis -monitor vanco levels 2. ESRD- will do CAPD 5exchanges of 2.5% gluc, 2 l fills 3. BP is good 4. anemia- check spep/ sife -high ferritin and iron studies -continue epo 5. hypothyroidiam- tsh 1.76 - is normal 6. hyponatremia- monitor w/ CAPD- is improving 7. Bone- mineral -metabelism of ESRD- start phos binder - pth is low for her- no calcitriol 8. metabolic acidosis- from diarrhea and renal failure- improving w/ CAPD 8. enlarged adrenal glands on CT scan- per hospitalist. consider outpt endo eval discussed w/ pt, Dr. Angel, and RN Attestations Medical Necessity Statement*: bacteremia, esrd, anemia Time Spent in Patient Care: 16 - 35 minutes Coding Level of Care Code Acute Video Editing Intern for Ankitg Jay
[2020-04-15 09:17] LABS: HDL Cholesterol 17 mg/dL (60-100); Triglycerides 155 mg/dL (0-150)
--- NOTE | 2020-04-15 09:32 | P.PN_ITS ---
Subjective Subjective: Interval history: Patient awake in bed at time of exam. She reported that she is feeling slightly better today. Able to tolerate oral diet with improvement in nausea. She denies any abdominal pain. Reports back pain due to sitting, no numbness or tingling in the upper or lower extremities, able to move all extremities as normal. Discussed with patient imaging findings from yesterday, discussed with her that these were reviewed with neurosurgeon with concern for chronic changes. Also discussed with patient plan for critical care consultation today. Discussed with patient plan for further work-up and evaluation, patient verbalized understanding and agreed with plan. Vitals/I&O/Wt Last Vital Signs Temp 98.7 F 04/15/20 06:00 Pulse 70 04/15/20 08:00 Resp 20 H 04/15/20 08:00 BP 141/68 04/15/20 08:00 Pulse Ox 99 04/15/20 08:00 04/14/20 04/15/20 04/15/20 22:59 06:59 14:59 Intake Total 2700 / 2700 2000 / 4700 460 / 460 Output Total 5700 / 5700 Balance 2700 / 2700 -3700 / -1000 460 / 460 Weight last 48 hrs Weight 126.099 kg Weight 126.099 kg Physical Exam Const: COMMON NORMALS: patient oriented x3 and alert GENERAL APPEARANCE: cooperative ORIENTATION/CONSCIOUSNESS: Yes awake, Yes oriented to person, Yes oriented to place and Yes oriented to time HENMT: COMMON NORMALS: normocephalic and atraumatic HEAD & SCALP: normocephalic and atraumatic Eye: COMMON NORMALS: Equal, round and reactive pupils present PUPIL: Yes Equal, round and reactive pupils present Neck/C-Spine: COMMON NORMALS: supple GENERAL: Yes normal visual inspection Resp: COMMON NORMALS: normal respiratory effort and clear to auscultation bilaterally EFFORT & INSPECTION: Yes able to speak in complete sentences AUSCULTATION: clear to auscultation bilaterally, no crackles, no rales, no rhonchi and no wheezes Cardio: COMMON NORMALS: regular rate, regular rhythm and No murmurs present (Cardio) RATE: regular rate RHYTHM: regular rhythm GI: OTHER: Obese, soft, non-tender, PD catheter in place with no surrounding erythema or drainage Back/Pelvis: OTHER: No spinous process tenderness Extremity: NARRATIVE EXTREMITY EXAM: 3+ pitting edema in the lower extremities bilaterally Neuro: COMMON NORMALS: patient oriented x3, CN's II-XII intact bilaterally, moves all extremities and no focal motor deficits SENSORIUM/ORIENTATION: Yes alert, Yes oriented to person, Yes oriented to place and Yes oriented to time SPEECH: speech normal Psych: COMMON NORMALS: mental status grossly normal and cooperative Skin: COMMON NORMALS: no rashes or lesions noted GENERAL SKIN EXAM: no rashes or lesions noted Data : 04/15/20 05:16 04/15/20 05:16 Micro: Microbiology 04/14/20 08:40 Blood Culture - Preliminary Blood NEGATIVE TO DATE 04/14/20 08:40 Blood Culture - Preliminary Blood NEGATIVE TO DATE 04/13/20 14:57 Gram Stain - Final Peritoneal Fluid 04/13/20 10:45 Blood Culture - Preliminary Blood NEGATIVE TO DATE 04/13/20 10:40 Blood Culture - Preliminary Blood Gram positive cocci 04/13/20 18:05 Enteric Pathogens (PCR) - Final Stool - Stool Aspirate Parasite Antigen Panel - Final C.difficile Toxin B Gene (PCR) - Final 04/13/20 09:30 Urine Culture - Preliminary Urine,Clean Catch 04/14/20 04:09 Gram Stain - Final Peritoneal Fluid A&P Assessment and plan (1) Bacterial peritonitis: Initial concern, continuing to treat until final cultures return Gram stain showed no organisms Continue with Rocephin at this time until final cultures return Nephrology consulted, appreciate recommendations and assistance in patient's care. Status: Acute (2) ESRD (end stage renal disease): Patient is on peritoneal dialysis, followed by Dr. Lora Nephrology consulted, continue PD as recommended Status: Acute (3) Diabetes: Patient is on insulin 70/30, 35 units in the morning and 30 units at bedtime. Increase dosing to 25 units twice daily Status: Acute (4) Sepsis: Continue with antibiotic coverage as prescribed Rocephin and vancomycin Initial concern for peritonitis, however as noted above no organisms on Gram stain and culture does not show any organisms at this time. We will continue to treat empirically until final cultures return Patient has a history of MRSA abscess that T11-T12. MRI of the thoracic and lumbar spine ordered yesterday which showed changes mentioned on report, these changes were discussed with neurosurgeon and due to patient not having any neurologic changes believed to be secondary to chronic changes. Recommended contrasted imaging, however patient being on peritoneal dialysis cannot do MRI with contrast. Patient has a CT contrast allergy, will pretreat and obtain CT with contrast of the thoracic and lumbar spine Discussed with Dr. Means today for consultation, appreciate recommendations and assistance in patient's care. Patient has had fever for 1 month's time Echocardiogram does not show any obvious vegetations, will consult cardiology for ERIN due to bacteremia Status: Acute (5) Hyponatremia: Slight improvement today, will continue to follow along with nephrology recommendations, plan for 4 exchanges today with PD Status: Acute Additional A&P Information Bacteremia: Repeat blood cultures ordered, gram positive cocci on initial 2/4 bottles. ECHO completed, will order ERIN, MRI thoracic and lumbar completed will order CT with contrast of thoracic and lumbar spine Recurrent fevers: For 1 month. Appreciate consultation from Dr. Means and Dr. Payne. Continue with Rocephin and vancomycin. Blood culture showing 1 out of 4 gram-positive cocci in clusters, repeat blood cultures ordered and pending. MRI performed of the thoracic and lumbar spine yesterday due to history of epidural abscess. Will further evaluate with CT with contrast today, due to patient having an allergy will pretreat. Continue to work-up further hematologic and rheumatologic processes due to patient's other contributing factors. Elevated ferritin: Continue to work-up for HLH, discussed with Dr. Means and appreciate consultation. Elevated rheumatoid factor: We will check CCP Transaminitis with hyperbilirubinemia: Elevated PT/INR, will check ultrasound of the right upper quadrant today Hypothyroidism: TSH within normal limits, continue home levothyroxine Chronic lymphedema Anemia: Macrocytic anemia, continue further work-up as noted above, checking repeat PT/INR, D-Dimer Secondary hyperparathyroidism in the setting of dialysis History of epidural abscess T11-T12 in 03/2018: Repeat MRI of the thoracic and lumbar spine performed this admission DVT ppx: Heparin DIet: Clear liquid diet, increase to full liquid carb consistent Code status: Full code, discussed with patient. 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
--- NOTE | 2020-04-15 09:41 | US_ITS ---
WS: [id number] ABDOMINAL ULTRASOUND LIMITED REASON FOR VISIT: Transaminitis TECHNIQUE: Grayscale and Doppler ultrasound examination of the abdomen. FINDINGS: Pancreas: Normal Abdominal aorta and IVC: Normal Liver: Liver measures 20.0 cm in length. Coarse reflective pattern throughout the liver consistent wi th fatty infiltration. Hepatopedal circulation portal system normal. Gallbladder: Gallbladder status post cholecystectomy Right kidney: Right kidney measures 12.4 cm x 6.8 cm x 5.5 cm. No hydronephrosis no stones. Small amount of fluid is seen in the pelvis in the right upper quadrant and right lower quadrant. Thi s is very minimal. US/US gall bladder [id number] IMPRESSION: Hepatomegaly with fatty infiltration. Status post cholecystectomy. Very small amount of free fluid is seen in the right upper quadrant and left up per quadrant.
[2020-04-15 10:02] LABS: Chol HDL Ratio 5.12 mg/dL (0.0-4.40); Cholesterol 87 mg/dL (0-200); LDL Cholesterol Calculated 39 mg/dL (50-129); LDL HDL Ratio 2.29 RATIO (0.00-3.22)
[2020-04-15 10:21] LABS: Lactate (Lactic Acid level) 2.4 mmol/L (0.5-2.2)
[2020-04-15 10:24] LABS: Gamma Glutamyl Transferase 40 U/L (5-36); Vancomycin Random 9.3 ug/mL (20.0-40.0)
[2020-04-15 10:41] LABS: D Dimer 13.49 ug/mIFEU (0-0.59)
[2020-04-15 11:30] LABS: Glucose Point of Care 205 mg/dL (70-110)
[2020-04-15] MEDS: cefTRIAXone 2,000 MG in sodium chloride 0.9% (plus) 50 ML 100 MG IV (11:43)
[2020-04-15] MEDS: predniSONE 20 mg Tablet 50 MG PO ×2 (16:31→21:07)
[2020-04-15 16:37] LABS: Anti-Nuclear Antibody Screen NEGATIVE (NEGATIVE)
[2020-04-15 17:17] LABS: Glucose Point of Care 204 mg/dL (70-110)
[2020-04-15] MEDS: insulin aspart 70/30 100 units/1 mL 20 UNIT SUBCUT (18:26)
[2020-04-15 21:05] LABS: Glucose Point of Care 170 mg/dL (70-110)
[2020-04-16] VITALS (27 sets, daily range): BP systolic 104–174; BP diastolic 47–93; PULSE 62–74; RESP 12–21; TEMP 36.6; O2SAT 94–100
[2020-04-16] MEDS: diphenhydrAMINE 50 mg Capsule PO (03:05)
[2020-04-16] MEDS: heparin 5,000 unit/mL INJ 1 mL 5000 UNIT SUBCUT ×2 (03:06→15:00)
[2020-04-16] MEDS: predniSONE 20 mg Tablet 50 MG PO (03:09)
--- NOTE | 2020-04-16 04:30 | CTR_ITS ---
PROCEDURE INFORMATION: Exam: CT Lumbar Spine With Contrast Exam date and time: 04/15/2020 11:59 PM Age: 59 years old Clinical indication: Other: Bacteremia, abnormal mri, HX epidural abscess; Additional info: Bacteremia, abnormal mri, h/o epidural abscess TECHNIQUE: Imaging protocol: Computed tomography images of the lumbar spine with intravenous contrast. Radiation optimization: All CT scans at this facility use at least one of these dose optimization techniques: automated exposure control; mA and/or kV adjustment per patient size (includes targeted exams where dose is matched to clinical indication); or iterative reconstruction. Contrast material: VISI; Contrast volume: 63 ml; Contrast route: 20G; COMPARISON: MR lumbar spine wo con* [id number] 04/14/2020 12:19 PM RADIATION DOSE METRICS: Total DLP: 2138.09 mGy-cm FINDINGS: Vertebrae: T11 and T12 laminectomies again evident. Still no acute fracture. No pars defect or interval malalignment. Moderate degeneration of the L3-L4 facet joints. Partial ossification of the L4-L5 interspinous ligament. Partial bony bridging of the L4-L5 facet joints. Large amount of spurring along the right L5-S1 facet joint. L1-L2: Continued annular bulging and mild canal stenosis at L1-L2. Still no significant foraminal narrowing at this level. L2-L3: Continued disc narrowing, annular bulging and a broad-based left paracentral and foraminal focal disc protrusion at L2-L3; prominent calcification in this protrusion now evident. Moderate canal stenosis, mild left foraminal stenosis and no significant right foraminal narrowing still present at this level. L3-L4: Continued annular bulging and ligamentum flavum hypertrophy at L3-L4 contributing to the moderate to marked canal stenosis in association with the spurring along the degenerated facet joints; interval slight worsening of the canal stenosis not excluded. Continued mild bilateral foraminal stenoses at this level. L4-L5: Continued disc narrowing and a prominent central focal disc protrusion at L4-L5 causing mild canal stenosis; current evidence of prominent calcification within the protrusion. Continued moderate bilateral foraminal stenoses at this level. L5-S1: No interval significant disc narrowing or canal stenosis at L5-S1. Continued mild to moderate bilateral foraminal stenoses at this level. Soft tissues: No acute finding. CT/CT lumbar spine w con [id number] IMPRESSION: 1. No acute fracture. T11 and T12 laminectomies again evident. 2. Multilevel degenerative disease with canal and foraminal stenoses still present as detailed above. Radiation Dose CTDIVOL = (mGy): DLP = 2138.09 (mGy-cm)
--- NOTE | 2020-04-16 04:30 | CTR_ITS ---
PROCEDURE INFORMATION: Exam: CT Thoracic Spine With Contrast Exam date and time: 04/15/2020 11:59 PM Age: 59 years old Clinical indication: Abnormal findings; Abnormal radiologic findings of thoracic; Other: Bacteremia, abnormal mri, HX epidural abscess; Additional info: Bacteremia, abnormal mri, history of epidural abscess TECHNIQUE: Imaging protocol: Computed tomography images of the thoracic spine with intravenous contrast. Radiation optimization: All CT scans at this facility use at least one of these dose optimization techniques: automated exposure control; mA and/or kV adjustment per patient size (includes targeted exams where dose is matched to clinical indication); or iterative reconstruction. Contrast material: VISI; Contrast volume: 63 ml; Contrast route: 20G; COMPARISON: MR thoracic spin wo con* [id number] 04/14/2020 11:58 AM RADIATION DOSE METRICS: Total DLP: 2955.98 mGy-cm FINDINGS: Vertebrae: T11 and T12 laminectomies again evident. Stable slight wedging of T5, T7, T11 and T12. No acute fracture. Alignment still intact. Minimal left convex scoliosis. Discs/Spinal canal/Neural foramina: Continued mild degeneration of the T11-12 disc. No interval canal stenosis. Prominent degeneration of the right T11-12 facet joint more apparent than before. Soft tissues: No acute finding. CT/CT thoracic spine w con [id number] IMPRESSION: 1. No acute bony disease. T11 and T12 laminectomies again evident. Old compression fractures detailed above. 2. Degenerative findings detailed above. Radiation Dose CTDIVOL = (mGy): DLP = 2955.98 (mGy-cm)
--- NOTE | 2020-04-16 04:30 | CTR_ITS ---
PROCEDURE INFORMATION: Exam: CT Cervical Spine With Contrast Exam date and time: 04/15/2020 11:59 PM Age: 59 years old Clinical indication: Other: Bacteremia, abnormal mri, HX epidural abscess; Additional info: Bacteremia, abnormal mri, history of epidural abscess TECHNIQUE: Imaging protocol: Computed tomography images of the cervical spine with intravenous contrast. Radiation optimization: All CT scans at this facility use at least one of these dose optimization techniques: automated exposure control; mA and/or kV adjustment per patient size (includes targeted exams where dose is matched to clinical indication); or iterative reconstruction. Contrast material: VISI; Contrast volume: 63 ml; Contrast route: 20G; COMPARISON: No relevant prior studies available. RADIATION DOSE METRICS: Total DLP: 777.53 mGy-cm FINDINGS: Vertebrae: No acute fracture. Large anterior exuberant spurs at C3-C4 and C4-C5. Moderate anterior spurs at C5-C6 and C6-C7. Alignment intact. Discs/Spinal canal/Neural foramina: Partial ossification of the C6-C7 disc. Ossification in the left paracentral focal disc protrusion at C3-C4 causing mild left canal stenosis. Slight annular bulging at C4-C5 causing no significant canal stenosis. Ossification in the right paracentral focal disc protrusion at C5-C6 causing mild right canal stenosis. Small calcification in the small left paracentral focal disc protrusion at C7-T1. Mild bilateral foraminal stenosis at C3-C4, but no significant foraminal narrowing elsewhere. Soft tissues: No acute finding. Mastoid air cells: Slight inferior right mastoid disease. Lungs: Lung apices unremarkable. CT/CT cervical spine w con [id number] IMPRESSION: 1. No acute fracture. Multilevel degenerative disease with canal and foraminal stenoses detailed above. 2. Slight inferior right mastoid disease. Radiation Dose CTDIVOL = (mGy): DLP = 777.53 (mGy-cm)
[2020-04-16 05:09] LABS: Basophils # 0.1 10^3/uL (0.0-0.1); Basophils % 0.5 %; Eosinophils # 0.1 10^3/uL (0.0-0.8); Eosinophils % 0.3 %; Hematocrit 32.8 % (37.0-47.0); Hemoglobin 10.6 g/dL (11.5-15.3); Lymphocytes # 0.5 10^3/uL (0.8-4.8); Lymphocytes % 2.7 %; Mean Corpuscular HGB Conc 32.3 g/dL (30.0-36.0); Mean Corpuscular Hemoglobin 31.5 pg (28.0-34.0); Mean Corpuscular Volume 97.6 fL (81-99); Mean Platelet Volume 9.6 fL (7.4-10.4); Monocytes # 0.5 10^3/uL (0.2-0.9); Monocytes % 2.4 %; Neutrophils # 17.1 10^3/uL (1.8-7.7); Neutrophils % 87.3 %; Nucleated Red Blood Cells % 0 %; Platelet Count 368 10^3/cmm (130-400); Red Blood Count 3.36 10^6/uL (4.1-5.3); Red Cell Distribution Width 14.7 % (12.1-15.1); White Blood Count 19.6 10^3/uL (4.0-10.0)
[2020-04-16 05:27] LABS: INR 1.29 (0.8-1.2)
[2020-04-16] MEDS: iodixanol 320 mg/mL 100mL Btl IV (05:31)
[2020-04-16 05:36] LABS: Magnesium 2.2 mg/dL (1.7-2.3); Phosphorus 6.4 mg/dL (2.5-4.5)
[2020-04-16 05:40] LABS: Alanine Aminotransferase 44 U/L (0-33); Alkaline Phosphatase 114 IU/L (35-105); Anion Gap 22.9 (5-19); Aspartate Amino Transferase 38 U/L (0-32); Blood Urea Nitrogen 72 mg/dL (6-20); Calcium 9.4 mg/dL (8.5-10.5); Carbon Dioxide 18 mmol/L (22-29); Chloride 94 mmol/L (98-107); Globulin 5.2 g/dL (1.3-4.6); Glomerular Filtration Rate 3.5 mL/min (90-130); Glucose 296 mg/dL (65-115); Osmolality Calculated 282 mOsm/kg (285-295); Potassium 3.9 mmol/L (3.5-5.1); Sodium 131 mmol/L (136-145); Total Bilirubin 0.7 mg/dL (0.15-1.2); Total Protein 7.2 g/dL (6.6-8.7)
[2020-04-16 06:02] LABS: Slide Review Slide Review Perform
--- NOTE | 2020-04-16 07:26 | P.PN_ITS ---
Subjective Subjective: Interval history: chronic sob. BP improved. c/o edema. no n/v/f/c/kearney/d Medications: Reviewed: Yes Medication Review Details: Current Medications Acetaminophen (Tylenol) 650 mg PO Q6H PRN PRN Reason: MILD PAIN Last Admin: 04/15/20 13:12 Dose: 650 mg Documented by: Calcium Acetate (Phoslo) 1,334 mg PO TIDWM SHELBY Last Admin: 04/15/20 17:33 Dose: 1,334 mg Documented by: Carvedilol (Coreg) 12.5 mg PO BID SHELBY Last Admin: 04/15/20 17:33 Dose: 12.5 mg Documented by: Dextrose (D50w) 25 ml IVP ONCE PRN; Protocol PRN Reason: hypoglycemia protocol Dextrose (D50w) 50 ml IVP PRN PRN; Protocol PRN Reason: hypoglycemia protocol Ergocalciferol (Vitamin D2) 50,000 unit PO SuWe@0600 SHE[facility] Last Admin: 04/15/20 06:53 Dose: 50,000 unit Documented by: Glucagon (Glucagen) 1 mg IM ONCE PRN; Protocol PRN Reason: Adult Acute Hypoglycemia Prot. Heparin Sodium (Beef Lung) (Heparin) 5,000 unit SUBCUT Q12H SHE[facility] Last Admin: 04/16/20 03:06 Dose: 5,000 unit Documented by: Ceftriaxone Sodium 2,000 mg/ (Sodium Chloride) 50 mls @ 100 mls/hr IV Q24H SHELBY; Protocol Last Admin: 04/15/20 11:43 Dose: 100 mls/hr Documented by: Dextrose (D5w) 500 mls @ 100 mls/hr IV ONCE PRN; Protocol PRN Reason: Adult Acute Hypoglycemia Prot Vancomycin HCl 1,000 mg/ (Sodium Chloride) 250 mls @ 250 mls/hr IV Q72H SHE[facility]; Protocol Insulin Aspart (Novolog) 0 unit SUBCUT TIDWM [facility]; Protocol Last Admin: 04/15/20 17:32 Dose: 6 unit Documented by: Insulin Aspart (Novolog) 0 unit SUBCUT BEDTIME SHELBY; Protocol Last Admin: 04/15/20 21:07 Dose: 2 unit Documented by: Insulin Aspart (Novolog 70/30) 20 unit SUBCUT 0800,1800 SHE[facility] Last Admin: 04/15/20 18:26 Dose: 20 unit Documented by: Levothyroxine Sodium (Synthroid) 150 mcg PO DAILY [facility] Last Admin: 04/15/20 07:52 Dose: 150 mcg Documented by: Naloxone HCl (Narcan) 0.1 mg IVP Q2M PRN PRN Reason: RESPIRATORY RATE < 8/MIN Non-Formulary Medication (Vit B [id number] Ac-Zinc [Renaplex]) 1 tab PO DAILY [facility] Peritoneal Dialysis Solution (Dianeal Low Ca W/2.5% Dex) 2,000 ml INTRAPERIT Q6H [facility] Last Admin: 04/15/20 23:01 Dose: 2,000 ml Documented by: Promethazine HCl (Phenergan) 25 mg PO QID PRN PRN Reason: Nausea Last Admin: 04/13/20 15:13 Dose: 25 mg Documented by: Vitals/I&O/Wt Last Vital Signs Temp 98.7 F 04/15/20 21:00 Pulse 67 04/16/20 06:00 Resp 15 04/16/20 06:00 BP 157/80 04/16/20 06:00 Pulse Ox 97 04/16/20 06:00 04/15/20 04/16/20 04/16/20 22:59 06:59 14:59 Intake Total 1800 / 4260 2000 / 6260 Output Total 1900 / 4400 2500 / 6900 Balance -100 / -140 -500 / -640 Weight last 48 hrs Weight 127.006 kg Weight 126.099 kg Physical Exam Narrative: EXAM NARRATIVE: uncomfortable, in bed, SOB, weak, swollen legs Heent- nc/at, eomi neck no jvp lungs crackles b/l heart reg abd soft, nt, +BS, + peritoneal dialysis catheter- c/d/i ext ++ b/l edema neuro- a,a, o x 3 Data : 04/16/20 04:13 04/16/20 04:13 Micro: Microbiology 04/13/20 14:57 Mycobacterial Smear - Preliminary Body Fluids - Peritoneal 04/13/20 10:45 Blood Culture - Preliminary Blood Staphylococcus species 04/13/20 10:40 Blood Culture - Preliminary Blood Staphylococcus species 04/15/20 16:13 Blood Culture - Preliminary Blood SPECIMEN COLLECTED 04/15/20 16:08 Blood Culture - Preliminary Blood SPECIMEN COLLECTED 04/14/20 04:09 Gram Stain - Final Peritoneal Fluid Body Fluid Culture - Preliminary 04/13/20 14:57 Gram Stain - Final Peritoneal Fluid Body Fluid Culture - Preliminary 04/13/20 09:30 Urine Culture - Final Urine,Clean Catch 04/14/20 08:40 Blood Culture - Preliminary Blood Gram positive cocci 04/14/20 08:40 Blood Culture - Preliminary Blood NEGATIVE TO DATE A&P Additional A&P Information 59 yr old female ESRD,hypothyroidism, IDDM, diastolic dysfunction, h/o MRSA epidual abscess. recent doxycycline use. 1. fevers and leukocytosis- gram + cocci bacteremia -abx as per hospitalist - PD fluids only 71 wbc -and repeat 11, unlikely peritonitis -monitor vanco levels - was only 9 yesterday- aim for trough under19 if MRSA and needs vanco -wbc up to 19 -abnormal CT and MRI of thoracic and lumbar spine as per medicine and NS- 2. ESRD- will do CAPD 5 exchanges of 2.5% gluc, 2 l fills 3. BP is good -pt c/o edema, and requests diuretics- will restart torsemide 4. anemia- check spep/ sife -high ferritin of 2611- and iron sat of 34%- no iron -hgb improving, dec epo dose 5. hypothyroidiam- tsh 1.76 - is normal 6. hyponatremia- monitor w/ CAPD and torsemide -k is normal 7. Bone- mineral -metabelism of ESRD- sphos binder - pth is low for her- no calcitriol 8. metabolic acidosis- from diarrhea and renal failure- stable w/ CAPD 8. enlarged adrenal glands on CT scan- per hospitalist. 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
[2020-04-16 07:51] LABS: Glucose Point of Care 275 mg/dL (70-110)
[2020-04-16] MEDS: carvedilol 12.5 mg Tablet PO ×2 (08:13→17:25)
[2020-04-16] MEDS: levothyroxine 150 mcg Tablet PO (08:13)
[2020-04-16] MEDS: insulin aspart 70/30 100 units/1 mL 20 UNIT SUBCUT (08:14)
[2020-04-16] MEDS: Dianeal low Ca w/2.5% dex 2,000 mL Bag 2000 ML INTRAPERIT ×3 (08:18→20:45)
--- NOTE | 2020-04-16 09:24 | ANES.PREANE2 ---
Pre-Anesthetic Assessment Pre-Anesthetic Assessment: Height/Weight: Height 1.7 m Weight 127.006 kg Temp Pulse Resp BP Pulse Ox 98.7 F 65 15 157/80 96 04/15/20 21:00 04/16/20 07:33 04/16/20 06:00 04/16/20 06:00 04/16/20 07:33 Preop Diagnosis: IE Familial anesthetic complications: None Was Beta Cristo taken within 24 hours: Yes Last intake: NPO > 8 hrs Social: Social History: No alcohol and No tobacco Airway: Cervical ROM: WNL MP: 3 Dentition: Full Anesthetic Plan: ASA status: 4 Anesthesia: MAC Meds/Allergies Current Medications: Current Medications Generic Name Dose Route Start Last Admin Trade Name Freq PRN Reason Stop Dose Admin Acetaminophen 650 mg 04/13/20 14:35 04/15/20 13:12 Tylenol PO 650 mg Q6H PRN Administration MILD PAIN Calcium Acetate 1,334 mg 04/14/20 08:00 04/15/20 17:33 Phoslo PO 1,334 mg TIDWM [facility] Administration Carvedilol 12.5 mg 04/13/20 18:00 04/16/20 08:13 Coreg PO 12.5 mg BID SHE[facility]BY Administration Ergocalciferol 50,000 unit 04/15/20 06:00 04/15/20 06:53 Vitamin D2 PO 50,000 unit SuWe@0600 SHE[facility] Administration Heparin Sodium (Be ef Lung) 5,000 unit 04/13/20 14:35 04/16/20 03:06 Heparin SUBCUT 5,000 unit Q12H SHE[facility] Administration Ceftriaxone Sodium 2,000 mg/ 50 mls @ 100 mls/ hr 04/14/20 11:00 04/15/20 11:43 Sodium Chloride IV 100 mls/hr Q24H SHE[facility] Administration Protocol Insulin Aspart 0 unit 04/13/20 18:00 04/16/20 08:14 Novolog SUBCUT 10 unit TIDWM [facility] Administration Protocol Insulin Aspart 0 unit 04/13/20 21:00 04/15/20 21:07 Novolog SUBCUT 2 unit BEDTIME SHE[facility] Administration Protocol Insulin Aspart 20 unit 04/15/20 18:00 04/16/20 08:14 Novolog 70/30 SUBCUT 20 unit 0800,1800 SHE[facility] Administration Levothyroxine Sodi um 150 mcg 04/14/20 09:00 04/16/20 08:13 Synthroid PO 150 mcg DAILY SHE[facility]BY Administration Peritoneal Dialysi s Solution 2,000 ml 04/15/20 11:00 04/16/20 08:18 Dianeal Low Ca W /2.5% Dex INTRAPERIT 2,000 ml Q6H SHE[facility] Administration Promethazine HCl 25 mg 04/13/20 14:35 04/13/20 15:13 Phenergan PO 25 mg QID PRN Administration Nausea Additional Medication Information: Current Medications Acetaminophen (Tylenol) 650 mg PO Q6H PRN PRN Reason: MILD PAIN Last Admin: 04/15/20 13:12 Dose: 650 mg Documented by: Calcium Acetate (Phoslo) 1,334 mg PO TIDWM [facility] Last Admin: 04/15/20 17:33 Dose: 1,334 mg Documented by: Carvedilol (Coreg) 12.5 mg PO BID [facility] Last Admin: 04/15/20 17:33 Dose: 12.5 mg Documented by: Dextrose (D50w) 25 ml IVP ONCE PRN; Protocol PRN Reason: hypoglycemia protocol Dextrose (D50w) 50 ml IVP PRN PRN; Protocol PRN Reason: hypoglycemia protocol Ergocalciferol (Vitamin D2) 50,000 unit PO SuWe@0600 [facility] Last Admin: 04/15/20 06:53 Dose: 50,000 unit Documented by: Glucagon (Glucagen) 1 mg IM ONCE PRN; Protocol PRN Reason: Adult Acute Hypoglycemia Prot. Heparin Sodium (Beef Lung) (Heparin) 5,000 unit SUBCUT Q12H [facility] Last Admin: 04/16/20 03:06 Dose: 5,000 unit Documented by: Ceftriaxone Sodium 2,000 mg/ (Sodium Chloride) 50 mls @ 100 mls/hr IV Q24H SHE[facility]; Protocol Last Admin: 04/15/20 11:43 Dose: 100 mls/hr Documented by: Dextrose (D5w) 500 mls @ 100 mls/hr IV ONCE PRN; Protocol PRN Reason: Adult Acute Hypoglycemia Prot Vancomycin HCl 1,000 mg/ (Sodium Chloride) 250 mls @ 250 mls/hr IV Q72H [facility]; Protocol Insulin Aspart (Novolog) 0 unit SUBCUT TIDWM [facility]; Protocol Last Admin: 04/15/20 17:32 Dose: 6 unit Documented by: Insulin Aspart (Novolog) 0 unit SUBCUT BEDTIME [facility]; Protocol Last Admin: 04/15/20 21:07 Dose: 2 unit Documented by: Insulin Aspart (Novolog 70/30) 20 unit SUBCUT 0800,1800 [facility] Last Admin: 04/15/20 18:26 Dose: 20 unit Documented by: Levothyroxine Sodium (Synthroid) 150 mcg PO DAILY [facility] Last Admin: 04/15/20 07:52 Dose: 150 mcg Documented by: Naloxone HCl (Narcan) 0.1 mg IVP Q2M PRN PRN Reason: RESPIRATORY RATE < 8/MIN Non-Formulary Medication (Vit B [id number] Ac-Zinc [Renaplex]) 1 tab PO DAILY [facility] Peritoneal Dialysis Solution (Dianeal Low Ca W/2.5% Dex) 2,000 ml INTRAPERIT Q6H [facility] Last Admin: 04/15/20 23:01 Dose: 2,000 ml Documented by: Promethazine HCl (Phenergan) 25 mg PO QID PRN PRN Reason: Nausea Last Admin: 04/13/20 15:13 Dose: 25 mg Documented by: PFSH Anesthesia PFSH: Medical History Congestive heart failure Diabetes Diabetes mellitus type 2, insulin-dependent ESRD (end stage renal disease) On peritoneal dialysis. Followed by Dr. Lora Hyperlipidemia Hypertension Hypothyroidism Surgical History History of cholecystectomy History of lumbar surgery Due to epidural abscess in March 2018 Family History Mother Cancer Uterine and breast cancer Father Diabetes Other CAD (coronary artery disease) Social History Smoking and tobacco status: never smoked Alcohol intake: current Alcohol intake frequency: holidays/special occasions only Data Anesthesia CBC & Chem 7: 04/16/20 04:13 04/16/20 04:13 Other Labs: Laboratory Results - last 48 hr 04/13/20 04/14/20 04/14/20 10:40 05:25 05:25 WBC RBC Hgb Hct MCV MCH MCHC RDW Plt Count MPV Neut % (Auto) Lymph % (Auto) Alexander % (Auto) Eos % (Auto) Baso % (Auto) Neut # (Auto) Lymph # (Auto) Alexander # (Auto) Eos # (Auto) Baso # (Auto) Nucleated RBC % (auto) Absolute Lymphocytes 0.1 L Lymphocytes (Manual) 0 Nucleated RBCs # Differential Comment ESR PT INR D-Dimer Sodium Potassium Chloride Carbon Dioxide Anion Gap BUN Creatinine GFR Calculation Glucose POC Glucose Calculated Osmolality Lactate Calcium Phosphorus Magnesium Total Bilirubin GGT AST ALT Alkaline Phosphatase Total Protein Albumin Globulin Triglycerides Cholesterol LDL Cholesterol, Calc HDL Cholesterol LDL/HDL Ratio Cholesterol/HDL Ratio Vitamin B12 > 2000 H Folate Fluid Color Fluid Appearance Fluid WBC Fluid RBC Fld Polynuclear WBCs % Fl Mononuclear % Auto Random Vancomycin WILLIAM Screen Negative Hepatitis A IgM Ab Hep Bs Antigen Hep Bs Antibody Hep B Core Total Ab Hepatitis C Antibody HIV 1&2 Ab & HIV 1 Ag HIV 1&2 Antibody Blood Type Rho(D) Type Antibody Screen PEG Antibody Screen Antibody Identification Cold Antibody Screen Crossmatch 04/14/20 04/14/20 04/14/20 05:25 05:25 05:25 WBC RBC Hgb Hct MCV MCH MCHC RDW Plt Count MPV Neut % (Auto) Lymph % (Auto) Alexander % (Auto) Eos % (Auto) Baso % (Auto) Neut # (Auto) Lymph # (Auto) Alexander # (Auto) Eos # (Auto) Baso # (Auto) Nucleated RBC % (auto) Absolute Lymphocytes Lymphocytes (Manual) Nucleated RBCs # Differential Comment ESR > 120 H PT 18.70 H INR 1.51 H D-Dimer Sodium Potassium Chloride Carbon Dioxide Anion Gap BUN Creatinine GFR Calculation Glucose POC Glucose Calculated Osmolality Lactate Calcium Phosphorus Magnesium Total Bilirubin GGT AST ALT Alkaline Phosphatase Total Protein Albumin Globulin Triglycerides Cholesterol LDL Cholesterol, Calc HDL Cholesterol LDL/HDL Ratio Cholesterol/HDL Ratio Vitamin B12 Folate > 20.0 Fluid Color Fluid Appearance Fluid WBC Fluid RBC Fld Polynuclear WBCs % Fl Mononuclear % Auto Random Vancomycin WILLIAM Screen Hepatitis A IgM Ab Hep Bs Antigen Hep Bs Antibody Hep B Core Total Ab Hepatitis C Antibody HIV 1&2 Ab & HIV 1 Ag HIV 1&2 Antibody Blood Type Rho(D) Type Antibody Screen PEG Antibody Screen Antibody Identification Cold Antibody Screen Crossmatch 04/14/20 04/14/20 04/14/20 08:30 08:30 08:30 WBC RBC Hgb Hct MCV MCH MCHC RDW Plt Count MPV Neut % (Auto) Lymph % (Auto) Alexander % (Auto) Eos % (Auto) Baso % (Auto) Neut # (Auto) Lymph # (Auto) Alexander # (Auto) Eos # (Auto) Baso # (Auto) Nucleated RBC % (auto) Absolute Lymphocytes Lymphocytes (Manual) Nucleated RBCs # Differential Comment ESR PT INR D-Dimer Sodium Potassium Chloride Carbon Dioxide Anion Gap BUN Creatinine GFR Calculation Glucose POC Glucose Calculated Osmolality Lactate Calcium Phosphorus Magnesium Total Bilirubin GGT AST ALT Alkaline Phosphatase Total Protein Albumin Globulin Triglycerides Cholesterol LDL Cholesterol, Calc HDL Cholesterol LDL/HDL Ratio Cholesterol/HDL Ratio Vitamin B12 Folate Fluid Color Fluid Appearance Fluid WBC Fluid RBC Fld Polynuclear WBCs % Fl Mononuclear % Auto Random Vancomycin WILLIAM Screen Hepatitis A IgM Ab Non-reactive Hep Bs Antigen Non-reactive Hep Bs Antibody 60.4 H Hep B Core Total Ab Non-reactive Hepatitis C Antibody Non-reactive HIV 1&2 Ab & HIV 1 Ag Non-reactive HIV 1&2 Antibody Non-reactive Blood Type A Positive Rho(D) Type Positive Antibody Screen Positive PEG Antibody Screen Negative Antibody Identification Cold Auto Aintobody Cold Antibody Screen Positive Crossmatch See Detail 04/14/20 04/14/20 04/14/20 11:14 14:20 17:39 WBC RBC Hgb Hct MCV MCH MCHC RDW Plt Count MPV Neut % (Auto) Lymph % (Auto) Alexander % (Auto) Eos % (Auto) Baso % (Auto) Neut # (Auto) Lymph # (Auto) Alexander # (Auto) Eos # (Auto) Baso # (Auto) Nucleated RBC % (auto) Absolute Lymphocytes Lymphocytes (Manual) Nucleated RBCs # Differential Comment Yes ESR PT INR D-Dimer Sodium Potassium Chloride Carbon Dioxide Anion Gap BUN Creatinine GFR Calculation Glucose POC Glucose 161 233 Calculated Osmolality Lactate Calcium Phosphorus Magnesium Total Bilirubin GGT AST ALT Alkaline Phosphatase Total Protein Albumin Globulin Triglycerides Cholesterol LDL Cholesterol, Calc HDL Cholesterol LDL/HDL Ratio Cholesterol/HDL Ratio Vitamin B12 Folate Fluid Color Colorless Fluid Appearance Clear Fluid WBC 11 Fluid RBC 0 Fld Polynuclear WBCs % 36.400 Fl Mononuclear % Auto 63.600 Random Vancomycin WILLIAM Screen Hepatitis A IgM Ab Hep Bs Antigen Hep Bs Antibody Hep B Core Total Ab Hepatitis C Antibody HIV 1&2 Ab & HIV 1 Ag HIV 1&2 Antibody Blood Type Rho(D) Type Antibody Screen PEG Antibody Screen Antibody Identification Cold Antibody Screen Crossmatch 04/14/20 04/14/20 04/15/20 21:39 23:07 05:16 WBC 14.1 H RBC 2.79 L Hgb 9.1 L Hct 27.3 L MCV 97.8 MCH 32.6 MCHC 33.3 D RDW 14.9 Plt Count 292 MPV 9.4 Neut % (Auto) 80.6 Lymph % (Auto) 4.2 Alexander % (Auto) 9.9 Eos % (Auto) 2.8 Baso % (Auto) 0.4 Neut # (Auto) 11.4 H Lymph # (Auto) 0.6 L Alexander # (Auto) 1.4 H Eos # (Auto) 0.4 Baso # (Auto) 0.1 Nucleated RBC % (auto) 0 Absolute Lymphocytes Lymphocytes (Manual) Nucleated RBCs # 0.0 Differential Comment ESR PT INR D-Dimer Sodium Potassium Chloride Carbon Dioxide Anion Gap BUN Creatinine GFR Calculation Glucose POC Glucose 212 Calculated Osmolality Lactate Calcium Phosphorus 5.7 H Magnesium 2.0 Total Bilirubin GGT AST ALT Alkaline Phosphatase Total Protein Albumin Globulin Triglycerides Cholesterol LDL Cholesterol, Calc HDL Cholesterol LDL/HDL Ratio Cholesterol/HDL Ratio Vitamin B12 Folate Fluid Color Fluid Appearance Fluid WBC Fluid RBC Fld Polynuclear WBCs % Fl Mononuclear % Auto Random Vancomycin WILLIAM Screen Hepatitis A IgM Ab Hep Bs Antigen Hep Bs Antibody Hep B Core Total Ab Hepatitis C Antibody HIV 1&2 Ab & HIV 1 Ag HIV 1&2 Antibody Blood Type Rho(D) Type Antibody Screen PEG Antibody Screen Antibody Identification Cold Antibody Screen Crossmatch 04/15/20 04/15/20 04/15/20 05:16 05:16 05:16 WBC 13.5 H RBC 2.66 L Hgb 8.5 L Hct 26.0 L MCV 97.7 MCH 32.0 MCHC 32.7 RDW 15.0 Plt Count 271 MPV 9.5 Neut % (Auto) 77.1 Lymph % (Auto) 4.2 Alexander % (Auto) 10.5 Eos % (Auto) 3.6 Baso % (Auto) 0.4 Neut # (Auto) 10.4 H Lymph # (Auto) 0.6 L Alexander # (Auto) 1.4 H Eos # (Auto) 0.5 Baso # (Auto) 0.1 Nucleated RBC % (auto) 0 Absolute Lymphocytes Lymphocytes (Manual) Nucleated RBCs # 0.0 Differential Comment ESR PT 17.00 H INR 1.33 H D-Dimer Sodium 133 L Potassium 3.5 Chloride 97 L Carbon Dioxide 17 L Anion Gap 22.5 H BUN 73 H Creatinine 10.8 H* GFR Calculation 3.7 L Glucose 224 H POC Glucose Calculated Osmolality 282 L Lactate Calcium 8.9 Phosphorus Magnesium Total Bilirubin 1.7 H GGT AST 36 H ALT 34 H Alkaline Phosphatase 80 Total Protein 6.2 L Albumin 1.8 L Globulin 4.4 Triglycerides Cholesterol LDL Cholesterol, Calc HDL Cholesterol LDL/HDL Ratio Cholesterol/HDL Ratio Vitamin B12 Folate Fluid Color Fluid Appearance Fluid WBC Fluid RBC Fld Polynuclear WBCs % Fl Mononuclear % Auto Random Vancomycin WILLIAM Screen Hepatitis A IgM Ab Hep Bs Antigen Hep Bs Antibody Hep B Core Total Ab Hepatitis C Antibody HIV 1&2 Ab & HIV 1 Ag HIV 1&2 Antibody Blood Type Rho(D) Type Antibody Screen PEG Antibody Screen Antibody Identification Cold Antibody Screen Crossmatch 04/15/20 04/15/20 04/15/20 05:16 07:30 09:39 WBC RBC Hgb Hct MCV MCH MCHC RDW Plt Count MPV Neut % (Auto) Lymph % (Auto) Alexander % (Auto) Eos % (Auto) Baso % (Auto) Neut # (Auto) Lymph # (Auto) Alexander # (Auto) Eos # (Auto) Baso # (Auto) Nucleated RBC % (auto) Absolute Lymphocytes Lymphocytes (Manual) Nucleated RBCs # Differential Comment ESR PT INR D-Dimer 13.49 H Sodium Potassium Chloride Carbon Dioxide Anion Gap BUN Creatinine GFR Calculation Glucose POC Glucose 225 Calculated Osmolality Lactate Calcium Phosphorus Magnesium Total Bilirubin GGT AST ALT Alkaline Phosphatase Total Protein Albumin Globulin Triglycerides 155 H Cholesterol 87 LDL Cholesterol, Calc 39 L HDL Cholesterol 17 L LDL/HDL Ratio 2.29 Cholesterol/HDL Ratio 5.12 H Vitamin B12 Folate Fluid Color Fluid Appearance Fluid WBC Fluid RBC Fld Polynuclear WBCs % Fl Mononuclear % Auto Random Vancomycin WILLIAM Screen Hepatitis A IgM Ab Hep Bs Antigen Hep Bs Antibody Hep B Core Total Ab Hepatitis C Antibody HIV 1&2 Ab & HIV 1 Ag HIV 1&2 Antibody Blood Type Rho(D) Type Antibody Screen PEG Antibody Screen Antibody Identification Cold Antibody Screen Crossmatch 04/15/20 04/15/20 04/15/20 09:39 09:39 11:21 WBC RBC Hgb Hct MCV MCH MCHC RDW Plt Count MPV Neut % (Auto) Lymph % (Auto) Alexander % (Auto) Eos % (Auto) Baso % (Auto) Neut # (Auto) Lymph # (Auto) Alexander # (Auto) Eos # (Auto) Baso # (Auto) Nucleated RBC % (auto) Absolute Lymphocytes Lymphocytes (Manual) Nucleated RBCs # Differential Comment ESR PT INR D-Dimer Sodium Potassium Chloride Carbon Dioxide Anion Gap BUN Creatinine GFR Calculation Glucose POC Glucose 205 Calculated Osmolality Lactate 2.4 H Calcium Phosphorus Magnesium Total Bilirubin GGT 40 H AST ALT Alkaline Phosphatase Total Protein Albumin Globulin Triglycerides Cholesterol LDL Cholesterol, Calc HDL Cholesterol LDL/HDL Ratio Cholesterol/HDL Ratio Vitamin B12 Folate Fluid Color Fluid Appearance Fluid WBC Fluid RBC Fld Polynuclear WBCs % Fl Mononuclear % Auto Random Vancomycin 9.3 L WILLIAM Screen Hepatitis A IgM Ab Hep Bs Antigen Hep Bs Antibody Hep B Core Total Ab Hepatitis C Antibody HIV 1&2 Ab & HIV 1 Ag HIV 1&2 Antibody Blood Type Rho(D) Type Antibody Screen PEG Antibody Screen Antibody Identification Cold Antibody Screen Crossmatch 04/15/20 04/15/20 04/16/20 17:13 21:03 04:13 WBC RBC Hgb Hct MCV MCH MCHC RDW Plt Count MPV Neut % (Auto) Lymph % (Auto) Alexander % (Auto) Eos % (Auto) Baso % (Auto) Neut # (Auto) Lymph # (Auto) Alexander # (Auto) Eos # (Auto) Baso # (Auto) Nucleated RBC % (auto) Absolute Lymphocytes Lymphocytes (Manual) Nucleated RBCs # Differential Comment ESR PT INR D-Dimer Sodium Potassium Chloride Carbon Dioxide Anion Gap BUN Creatinine GFR Calculation Glucose POC Glucose 204 170 Calculated Osmolality Lactate Calcium Phosphorus 6.4 H Magnesium 2.2 Total Bilirubin GGT AST ALT Alkaline Phosphatase Total Protein Albumin Globulin Triglycerides Cholesterol LDL Cholesterol, Calc HDL Cholesterol LDL/HDL Ratio Cholesterol/HDL Ratio Vitamin B12 Folate Fluid Color Fluid Appearance Fluid WBC Fluid RBC Fld Polynuclear WBCs % Fl Mononuclear % Auto Random Vancomycin WILLIAM Screen Hepatitis A IgM Ab Hep Bs Antigen Hep Bs Antibody Hep B Core Total Ab Hepatitis C Antibody HIV 1&2 Ab & HIV 1 Ag HIV 1&2 Antibody Blood Type Rho(D) Type Antibody Screen PEG Antibody Screen Antibody Identification Cold Antibody Screen Crossmatch 04/16/20 04/16/20 04/16/20 04:13 04:13 04:13 WBC 19.6 H RBC 3.36 L Hgb 10.6 L Hct 32.8 L MCV 97.6 MCH 31.5 MCHC 32.3 RDW 14.7 Plt Count 368 MPV 9.6 Neut % (Auto) 87.3 Lymph % (Auto) 2.7 Alexander % (Auto) 2.4 Eos % (Auto) 0.3 Baso % (Auto) 0.5 Neut # (Auto) 17.1 H Lymph # (Auto) 0.5 L Alexander # (Auto) 0.5 Eos # (Auto) 0.1 Baso # (Auto) 0.1 Nucleated RBC % (auto) 0 Absolute Lymphocytes Lymphocytes (Manual) Nucleated RBCs # 0.0 Differential Comment ESR PT 16.50 H INR 1.29 H D-Dimer Sodium 131 L Potassium 3.9 Chloride 94 L Carbon Dioxide 18 L Anion Gap 22.9 H BUN 72 H Creatinine 11.2 H* GFR Calculation 3.5 L Glucose 296 H POC Glucose Calculated Osmolality 282 L Lactate Calcium 9.4 Phosphorus Magnesium Total Bilirubin 0.7 GGT AST 38 H ALT 44 H Alkaline Phosphatase 114 H Total Protein 7.2 Albumin 2.0 L Globulin 5.2 H Triglycerides Cholesterol LDL Cholesterol, Calc HDL Cholesterol LDL/HDL Ratio Cholesterol/HDL Ratio Vitamin B12 Folate Fluid Color Fluid Appearance Fluid WBC Fluid RBC Fld Polynuclear WBCs % Fl Mononuclear % Auto Random Vancomycin WILLIAM Screen Hepatitis A IgM Ab Hep Bs Antigen Hep Bs Antibody Hep B Core Total Ab Hepatitis C Antibody HIV 1&2 Ab & HIV 1 Ag HIV 1&2 Antibody Blood Type Rho(D) Type Antibody Screen PEG Antibody Screen Antibody Identification Cold Antibody Screen Crossmatch 04/16/20 07:43 WBC RBC Hgb Hct MCV MCH MCHC RDW Plt Count MPV Neut % (Auto) Lymph % (Auto) Alexander % (Auto) Eos % (Auto) Baso % (Auto) Neut # (Auto) Lymph # (Auto) Alexander # (Auto) Eos # (Auto) Baso # (Auto) Nucleated RBC % (auto) Absolute Lymphocytes Lymphocytes (Manual) Nucleated RBCs # Differential Comment ESR PT INR D-Dimer Sodium Potassium Chloride Carbon Dioxide Anion Gap BUN Creatinine GFR Calculation Glucose POC Glucose 275 Calculated Osmolality Lactate Calcium Phosphorus Magnesium Total Bilirubin GGT AST ALT Alkaline Phosphatase Total Protein Albumin Globulin Triglycerides Cholesterol LDL Cholesterol, Calc HDL Cholesterol LDL/HDL Ratio Cholesterol/HDL Ratio Vitamin B12 Folate Fluid Color Fluid Appearance Fluid WBC Fluid RBC Fld Polynuclear WBCs % Fl Mononuclear % Auto Random Vancomycin WILLIAM Screen Hepatitis A IgM Ab Hep Bs Antigen Hep Bs Antibody Hep B Core Total Ab Hepatitis C Antibody HIV 1&2 Ab & HIV 1 Ag HIV 1&2 Antibody Blood Type Rho(D) Type Antibody Screen PEG Antibody Screen Antibody Identification Cold Antibody Screen Crossmatch Micro: Microbiology 04/13/20 14:57 Gram Stain - Final Peritoneal Fluid Body Fluid Culture - Preliminary 04/13/20 14:57 Mycobacterial Smear - Preliminary Body Fluids - Peritoneal 04/13/20 10:45 Blood Culture - Preliminary Blood Staphylococcus species 04/13/20 10:40 Blood Culture - Preliminary Blood Staphylococcus species 04/15/20 16:13 Blood Culture - Preliminary Blood SPECIMEN COLLECTED 04/15/20 16:08 Blood Culture - Preliminary Blood SPECIMEN COLLECTED 04/14/20 04:09 Gram Stain - Final Peritoneal Fluid Body Fluid Culture - Preliminary 04/13/20 09:30 Urine Culture - Final Urine,Clean Catch 04/14/20 08:40 Blood Culture - Preliminary Blood Gram positive cocci 04/14/20 08:40 Blood Culture - Preliminary Blood NEGATIVE TO DATE Cardiac Studies: No Data to Display
[2020-04-16] MEDS: TORSEmide 20 mg Tablet 10 MG PO (09:32)
--- NOTE | 2020-04-16 10:20 | PC.SOCIAL ---
IMM Page 2 of IMM explained to patient. Initialed, dated, and timed placed in chart.
--- NOTE | 2020-04-16 11:27 | PC.OT ---
Upon therapist's entry, patient reports fatigue, stating that she has been up since 3 A.M. She declines to participate in occupational therapy at this time, despite being offered the opportunity to perform ADL activity at bed-level. Will attempt to see patient later this afternoon after she has had time to rest, otherwise will provide services to patient tomorrow.
[2020-04-16] MEDS: cefTRIAXone 2,000 MG in sodium chloride 0.9% (plus) 50 ML 100 MG IV (12:00)
[2020-04-16 12:42] LABS: Cyclic Citrullinated Peptide <16 UNITS
--- NOTE | 2020-04-16 13:02 | PM.CONSULT ---
Providers/Reason For Consult Consulting Physican/Specialty*: Dior Gaines MD/cardiology Reason for Consult*: To perform a ERIN for suspected endocarditis Attending Physician: Mona Angel DO Primary Care Provider: Karen Bear MD History of Present Illness History of Present Illness Alesia Shaw is a 59 year old female with a history of end-stage renal disease, on peritoneal dialysis, history of hypertension, type 2 diabetes, hypothyroidism and essential benign hypertension is admitted to the hospital with complaints of fever and chills. Patient apparently has a history of spinal abscess with MRSA for which she underwent surgical intervention in 2018 at the [facility] in [place]. After the antibiotic treatment, patient developed kidney failure ended up requiring peritoneal dialysis. She also had a recent pneumonia for which she had antibiotic treatment as an outpatient. She is currently on IV antibiotics. Her blood culture grew gram-positive cocci,-1 out of 3 bottles; identity is pending. Patient is currently remaining afebrile for the last 78 hours. Is requested to rule out endocarditis. Patient had EGD and colonoscopy in the past. She has occasional dysphagia. She also has a dry cough. No history for any upper GI bleed. No history for any stomach ulcers. Review of Systems Narrative: CONSTITUTIONAL: Recent fever and chills as mentioned above EYES: No blurring of vision or other visual disturbances lately. ENT: No hoarseness of voice, auditory disturbances or sore throat. CARDIOVASCULAR: As to congestive heart failure RESPIRATORY: No significant cough. GASTROINTESTINAL: No hematemesis or melena. GENITOURINARY: End-stage renal disease INTEGUMENTARY: No skin rashes or history of skin cancer. NEURO: No transient ischemic attacks or amaurosis. PSYCHIATRIC: No history of psychosis or major depression. HEMATOLOGIC: Chronic anemia ENDOCRINE: N hypothyroidism MUSCULOSKELETAL: Lymphedema of the extremities ALLERGY/IMMUNOLOGY: As mentioned above. Meds/Allergies Home Medications and Allergies Home Medications Medication Instructions Recorded Confirmed Last Taken Type carvedilol 25 mg tablet 12.5 mg PO BID 04/02/20 04/13/20 04/12/20 History clonidine HCl 0.1 mg tablet 0.1 mg PO TID PRN 04/02/20 04/13/20 Unknown History levothyroxine 150 mcg tablet 150 mcg PO DAILY 04/02/20 04/13/20 04/13/20 History promethazine 25 mg tablet 25 mg PO QID PRN 04/02/20 04/13/20 Unknown History sodium bicarbonate 650 mg tablet 650 mg PO BID 04/02/20 04/13/20 04/12/20 History torsemide 20 mg tablet 40 mg PO DAILY PRN tab 04/02/20 04/13/20 Unknown History ergocalciferol (vitamin D2) 1,250 mcg PO DAILY 04/13/20 04/13/20 04/12/20 History insulin NPH and regular human See Rx Instructions .ROUTE .COMPLEX 04/13/20 04/13/20 04/13/20 History [Novolin 70/30 U-100 Insulin] vit B [id number]-[id number] ac-zinc 1 tab PO DAILY 04/13/20 04/13/20 04/12/20 History [RenaPlex] Allergies Allergy/AdvReac Type Severity Reaction Status Date / Time codeine Allergy Unknown Verified 04/02/20 10:56 Iodinated Contrast Media Allergy ALGY-Hives Verified 04/02/20 10:56 insulin detemir AdvReac Unknown Verified 04/02/20 10:56 [From Levemir U-100 Insulin] insulin glargine AdvReac Unknown Verified 04/02/20 10:56 [From Lantus U-100 Insulin] Current Medications Current Medications Generic Name Dose Route Start Last Admin Trade Name Curtisq PRN Reason Stop Dose Admin Acetaminophen 650 mg 04/13/20 14:35 04/15/20 13:12 Tylenol PO 650 mg Q6H PRN Administration MILD PAIN Calcium Acetate 1,334 mg 04/14/20 08:00 04/16/20 09:33 Phoslo PO Not Given TIDWM SHELBY Carvedilol 12.5 mg 04/13/20 18:00 04/16/20 08:13 Coreg PO 12.5 mg BID SHELBY Administration Ergocalciferol 50,000 unit 04/15/20 06:00 04/15/20 06:53 Vitamin D2 PO 50,000 unit SuWe@0600 SHELBY Administration Heparin Sodium (Beef Lung) 5,000 unit 04/13/20 14:35 04/16/20 03:06 Heparin SUBCUT 5,000 unit Q12H SHELBY Administration Ceftriaxone Sodium 2,000 mg/ 50 mls @ 100 mls/hr 04/14/20 11:00 04/15/20 11:43 Sodium Chloride IV 100 mls/hr Q24H SHELBY Administration Protocol Insulin Aspart 0 unit 04/13/20 18:00 04/16/20 11:31 Novolog SUBCUT 10 unit TIDWM SHELBY Administration Protocol Insulin Aspart 0 unit 04/13/20 21:00 04/15/20 21:07 Novolog SUBCUT 2 unit BEDTIME SHELBY Administration Protocol Insulin Aspart 20 unit 04/15/20 18:00 04/16/20 08:14 Novolog 70/30 SUBCUT 20 unit 0800,1800 SHELBY Administration Levothyroxine Sodium 150 mcg 04/14/20 09:00 04/16/20 08:13 Synthroid PO 150 mcg DAILY SHELBY Administration Peritoneal Dialysis Solution 2,000 ml 04/15/20 11:00 04/16/20 08:18 Dianeal Low Ca W/2.5% Dex INTRAPERIT 2,000 ml Q6H SHELBY Administration Promethazine HCl 25 mg 04/13/20 14:35 04/13/20 15:13 Phenergan PO 25 mg QID PRN Administration Nausea Torsemide 10 mg 04/16/20 08:00 04/16/20 09:32 Demadex PO 10 mg 0800 SHELBY Administration PFSH Acute PFSH: Medical History Congestive heart failure Diabetes Diabetes mellitus type 2, insulin-dependent ESRD (end stage renal disease) On peritoneal dialysis. Followed by Dr. Lora History of congestive heart failure History of MRSA infection Hyperlipidemia Hypertension Hypothyroidism Surgical History History of cholecystectomy History of lumbar surgery Due to epidural abscess in March 2018 Family History Mother Cancer Uterine and breast cancer Father Diabetes Other CAD (coronary artery disease) Social History Smoking and tobacco status: never smoked Alcohol intake: current Alcohol intake frequency: holidays/special occasions only Vitals/I&O/Wt Last Vital Signs Temp 98.7 F 04/15/20 21:00 Pulse 67 04/16/20 11:07 Resp 15 04/16/20 06:00 BP 157/80 04/16/20 06:00 Pulse Ox 100 04/16/20 11:07 04/15/20 04/16/20 04/16/20 22:59 06:59 14:59 Intake Total 1800 / 4260 2000 / 6260 Output Total 1900 / 4400 2500 / 6900 Balance -100 / -140 -500 / -640 Weight last 48 hrs Weight 280 lb Physical Exam Narrative: EXAM NARRATIVE: GENERAL: The patient is alert and oriented times three. Not in any acute distress. HEENT: Minimal pallor ; no icterus or lymphadenopathy.Oral cavity: There are no mucous membrane lesions. NECK: Trachea appears to be central. No masses noted. No JVD or thyromegaly appreciated. RESPIRATORY: Chest is symmetrical. No intercostals muscle retraction or any accessory muscle activation. There is no chest wall tenderness. Breath sounds are heard bilaterally. No rales or rhonchi heard. No evidence of any consolidation. BREASTS: Deferred. HEART: The heart sounds are normal. No S3 or S4. No significant murmurs. No pericardial rub. ABDOMEN: Peritoneal dialysis catheter in place. Normal bowel sounds. : Deferred. RECTAL: Deferred. LYMPHATIC: No lymphadenopathy noted in the neck or groin. EXTREMITIES: Chronic lymphedema of both lower extremities MUSCULOSKELETAL: No acute joint deformities or swelling SKIN: There are no significant rashes or ecchymosis NEUROPSYCHIATRIC: The patient is alert and oriented x3. No focal motor deficit. Data Micro: Micro: Microbiology 04/14/20 08:40 Blood Culture - Pr eliminary Blood Staphylococcus species 04/13/20 14:57 Gram Stain - Final Peritoneal Fluid Anaerobic Culture - Preliminary Body Fluid Culture - Preliminary 04/14/20 04:09 Gram Stain - Final Peritoneal Fluid Body Fluid Culture - Preliminary 04/13/20 14:57 Mycobacterial Smea r - Preliminary Body Fluids - Per itoneal 04/13/20 10:45 Blood Culture - Pr eliminary Blood Staphylococcus species 04/13/20 10:40 Blood Culture - Pr eliminary Blood Staphylococcus species 04/15/20 16:13 Blood Culture - Pr eliminary Blood SPECIMEN [facility] 04/15/20 16:08 Blood Culture - Pr eliminary Blood SPECIMEN [facility] 04/13/20 09:30 Urine Culture - Fi nal Urine,Clean Catch 04/14/20 08:40 Blood Culture - Pr eliminary Blood NEGATIVE TO TONIE E Imaging^: Echo: My impression: Echocardiogram on 04/14/2020 revealed Normal left ventricular size and systolic function, EF 55 %. No gross wall motion normalities. Thickened aortic valve. Mild tricuspid valve regurgitation. There is no pericardial effusion. There are no intracardiac masses. Comparison with the previous study is difficult because of the difference in the technical quality. Consider ERIN, if clinically indicated EKG^: EKG 1: My Interpretation: The EKG revealed sinus tachycardia with left axis deviation. Possible left atrial enlargement. Voltage criteria for LVH. Normal HI and QRS duration. A&P Assessment and plan (1) Bacteremia due to Staphylococcus: Patient is on IV antibiotics and is afebrile at this time. In view of her history of recurrent infection, it may be appropriate to go ahead and do a ERIN to evaluate for any evidence of endocarditis. Currently the patient has no contraindication for this procedure. I discussed with the patient in detail the risk and benefits. The risk of aspiration, bleeding, soft tissue injury, perforation of the stomach/esophagus and other concomitant complications were explained to the patient in detail. The patient understood this well and consented to proceed We will go ahead and schedule this procedure this afternoon Status: Acute (2) History of MRSA infection: Status: Acute (3) History of congestive heart failure: , Currently the heart failure seems to be compensated. 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
[2020-04-16 13:20] LABS: Glucose Point of Care 287 mg/dL (70-110)
--- NOTE | 2020-04-16 13:37 | P.PN_ITS ---
Subjective Subjective: Interval history: Patient awake in bed at time of exam. She reported nausea has resolved. She states that she if feeling better. Discussed with her plan for ERIN today. 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 Dr. Means will consult today. Vitals/I&O/Wt Last Vital Signs Temp 98.7 F 04/15/20 21:00 Pulse 67 04/16/20 11:07 Resp 15 04/16/20 06:00 BP 157/80 04/16/20 06:00 Pulse Ox 100 04/16/20 11:07 04/15/20 04/16/20 04/16/20 22:59 06:59 14:59 Intake Total 1800 / 4260 2000 / 6260 Output Total 1900 / 4400 2500 / 6900 Balance -100 / -140 -500 / -640 Weight last 48 hrs Weight 127.006 kg Physical Exam Const: COMMON NORMALS: patient oriented x3 and alert GENERAL APPEARANCE: cooperative ORIENTATION/CONSCIOUSNESS: Yes awake, Yes oriented to person, Yes oriented to place and Yes oriented to time HENMT: COMMON NORMALS: normocephalic and atraumatic HEAD & SCALP: normocephalic and atraumatic Eye: COMMON NORMALS: Equal, round and reactive pupils present PUPIL: Yes Equal, round and reactive pupils present Neck/C-Spine: COMMON NORMALS: supple GENERAL: Yes normal visual inspection Resp: COMMON NORMALS: normal respiratory effort and clear to auscultation bilaterally EFFORT & INSPECTION: Yes able to speak in complete sentences AUSCULTATION: clear to auscultation bilaterally, no crackles, no rales, no rhonchi and no wheezes OTHER: occasional dry cough Cardio: COMMON NORMALS: regular rate, regular rhythm and No murmurs present (Cardio) RATE: regular rate RHYTHM: regular rhythm GI: OTHER: Obese, soft, non-tender, PD catheter in place with no surrounding erythema or drainage : COMMON NORMALS: Yes no CVA tenderness BLADDER/KIDNEY EXAM: Yes no CVA tenderness Back/Pelvis: COMMON NORMALS: no CVA tenderness OTHER: No spinous process tenderness Extremity: NARRATIVE EXTREMITY EXAM: 3+ pitting edema in the lower extremities bilaterally Neuro: COMMON NORMALS: patient oriented x3, CN's II-XII intact bilaterally, moves all extremities and no focal motor deficits SENSORIUM/ORIENTATION: Yes alert, Yes oriented to person, Yes oriented to place and Yes oriented to time SPEECH: speech normal Psych: COMMON NORMALS: mental status grossly normal and cooperative Skin: COMMON NORMALS: no rashes or lesions noted GENERAL SKIN EXAM: no rashes or lesions noted Data : 04/16/20 04:13 04/16/20 04:13 Micro: Microbiology 04/13/20 10:45 Blood Culture - Preliminary Blood Staphylococcus aureus 04/13/20 10:40 Blood Culture - Preliminary Blood Staphylococcus aureus 04/14/20 08:40 Blood Culture - Preliminary Blood Staphylococcus species 04/13/20 14:57 Gram Stain - Final Peritoneal Fluid Anaerobic Culture - Preliminary Body Fluid Culture - Preliminary 04/14/20 04:09 Gram Stain - Final Peritoneal Fluid Body Fluid Culture - Preliminary 04/13/20 14:57 Mycobacterial Smear - Preliminary Body Fluids - Peritoneal 04/15/20 16:13 Blood Culture - Preliminary Blood SPECIMEN COLLECTED 04/15/20 16:08 Blood Culture - Preliminary Blood SPECIMEN COLLECTED 04/13/20 09:30 Urine Culture - Final Urine,Clean Catch 04/14/20 08:40 Blood Culture - Preliminary Blood NEGATIVE TO DATE A&P Assessment and plan (1) Bacterial peritonitis: Final cultures pending, however this is being ruled out Continue with Rocephin at this time until final cultures return Nephrology consulted, appreciate recommendations and assistance in patient's care. Status: Acute (2) ESRD (end stage renal disease): Patient is on peritoneal dialysis, followed by Dr. Lora Nephrology consulted, continue PD as recommended Status: Acute (3) Diabetes: Patient is on insulin 70/30, 35 units in the morning and 30 units at bedtime. Increase dosing to 30 units twice daily Status: Acute (4) Sepsis: Continue with antibiotic coverage as prescribed Rocephin and vancomycin Patient with concern for infectious endocarditis Patient has a history of MRSA abscess that T11-T12. MRI of the thoracic and lumbar spine ordered yesterday which showed changes mentioned on report, these changes were discussed with neurosurgeon and due to patient not having any neurologic changes believed to be secondary to chronic changes. Recommended contrasted imaging, however patient being on peritoneal dialysis cannot do MRI with contrast. Pretreated with prednisone to perform CT cervical, thoracic and lumbar spine today. NO evidence of abscess formation Dr. Means consulted ERIN to be performed today due to concern for infectious endocarditis, appreciate cardiology consultation Status: Acute (5) Hyponatremia: Appears fluid overloaded, PD per nephrology Restarted torsemide Status: Acute Additional A&P Information Bacteremia: Repeat blood cultures pending, initial repeat cultures remain positive. ERIN today, MRI and CT of spine performed Concern for infectious endocarditis: plan as above, continue IV antibiotics Recurrent fevers: For 1 month. Appreciate consultation from Dr. Means and Dr. Payne. Continue with Rocephin and vancomycin. bacteremia as treatment as above. Continue to work-up further hematologic and rheumatologic processes due to patient's other contributing factors. Elevated ferritin: Continue to work-up for HLH, discussed with Dr. Means and appreciate consultation. Elevated rheumatoid factor: We will check CCP Transaminitis with hyperbilirubinemia: RUQ US without acute abnormality Hypothyroidism: TSH within normal limits, continue home levothyroxine Chronic lymphedema Anemia: Macrocytic anemia, continue further work-up as noted above, checking repeat PT/INR, D-Dimer Secondary hyperparathyroidism in the setting of dialysis History of epidural abscess T11-T12 in 03/2018: Repeat MRI of the thoracic and lumbar spine performed this admission DVT ppx: Heparin DIet: Clear liquid diet, increase to full liquid carb consistent Code status: Full code, discussed with patient. 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
--- NOTE | 2020-04-16 15:08 | PC.OT ---
OT TREATMENT ATTEMPTED THIS P.M. PATIENT REPORTS THAT SHE IS VERY TIRED AND WOULD JUST LIKE TO REST FOR TODAY. OT TREATMENT TO BE ATTEMPTED AGAIN TOMORROW.
[2020-04-16] MEDS: calcium acetate 667 mg Capsule 1334 MG PO (17:25)
[2020-04-16] MEDS: insulin aspart 70/30 100 units/1 mL 25 UNIT SUBCUT (17:26)
[2020-04-16 17:42] LABS: Glucose Point of Care 309 mg/dL (70-110)
--- NOTE | 2020-04-16 18:31 | PM.CONSULT ---
Providers/Reason For Consult Consulting Physican/Specialty*: Pulmonary and critical care medicine Reason for Consult*: Sepsis likely secondary to endocarditis and staph aureus bacteremia Attending Physician: Mona Angel DO Primary Care Provider: Karen Bear MD History of Present Illness History of Present Illness Alesia Shaw is a 59 year old female with a complicated past medical history. The patient has end-stage renal disease and is on peritoneal dialysis. She has been doing the peritoneal dialysis for about 2 years. The etiology for the ESRD is likely diabetes. The patient has a history of MRSA epidural abscess which was in 2018 for which she underwent long-term antibiotic therapy. The patient tells me today that following this antibiotic therapy she had worsening of her kidney function. She also attributes her bilateral lower extremity lymphedema to the antibiotic therapy. The patient also has a past medical history of heart failure with preserved ejection fraction and hypothyroidism. This time the patient presented to the hospital with fever that was ongoing for about a month, diarrhea for the same duration. Apparently, the patient was diagnosed with pneumonia and was treated with doxycycline. I have a chest x-ray from March 20 which showed right lower lobe infiltrate. I am assuming this is the time when she was diagnosed with a pneumonia. On questioning today the patient tells me she has been having difficulty swallowing for more than 6 months. The difficulty is more pronounced with solid food rather than liquids. The patient also tells me she has been suffering from episodes of cough and occasionally she would cough off food that she had eaten before. This makes me wonder whether the patient had an episode of aspiration pneumonia at that time. When the patient presented to the hospital on April 13 with fever, diarrhea and signs of sepsis the initial diagnostic consideration was peritonitis likely secondary to the peritoneal dialysis catheter infection. However, the microbiologic studies from the peritoneal fluid was negative for any infection. The patient then turned out to have positive blood culture for gram-positive cocci in clusters. The initial concern was whether the patient is suffering from MRSA bacteremia that she had suffered from before. The patient does not have any intracardiac or intravascular prosthetic devices to my knowledge. The patient underwent MRI of the thoracic and lumbar spines any evidence of epidural abscess however there was some changes in the signal intensity. To definitively rule out any evidence of epidural abscess the patient underwent CT angiogram of the cervical thoracic and lumbar spine. The patient has contrast allergy and received steroid premedication for the scans. CT with contrast definitely be ruled out any epidural abscess. The patient also had a transthoracic echocardiogram to look for vegetation however it was negative. Her ejection fraction is 55% no gross wall motion abnormalities are detected. The E over E prime ratio was 11 which is not consistent with an elevated pulmonary capillary wedge pressure. The estimated pulmonary artery pressure was 25 mmHg. There was aortic valve thickening and mild tricuspid regurgitation. CT scan of the chest during this hospital admission was essentially unremarkable. The blood cultures from April 13 have been positive for staph aureus the blood culture from April 14 is also positive for staph aureus the cultures are negative from April 15. The staph species has been speciated today to be MSSA. The plan was to do a ERIN today. However there was difficulty in introduction of the ERIN probe into the esophagus. Given the patient's previous history of difficulty swallowing there is significant concern that the patient has upper esophageal stricture. The patient was supposed to undergo a second attempt in the OR with a definitive airway with endotracheal tube and possible muscle relaxation however the patient had eaten dinner somehow. The patient was seen and examined today. The patient appears comfortable and in no acute distress. She is resting comfortably and not complaining of any chest pain shortness of breath or cough. Her fever is also better. Review of Systems General: Reports: 10 or more systems reviewed and unremarkable except in HPI and below Meds/Allergies Home Medications and Allergies Home Medications Medication Instructions Recorded Confirmed Last Taken Type carvedilol 25 mg tablet 12.5 mg PO BID 04/02/20 04/13/20 04/12/20 History clonidine HCl 0.1 mg tablet 0.1 mg PO TID PRN 04/02/20 04/13/20 Unknown History levothyroxine 150 mcg tablet 150 mcg PO DAILY 04/02/20 04/13/20 04/13/20 History promethazine 25 mg tablet 25 mg PO QID PRN 04/02/20 04/13/20 Unknown History sodium bicarbonate 650 mg tablet 650 mg PO BID 04/02/20 04/13/20 04/12/20 History torsemide 20 mg tablet 40 mg PO DAILY PRN tab 04/02/20 04/13/20 Unknown History ergocalciferol (vitamin D2) 1,250 mcg PO DAILY 04/13/20 04/13/20 04/12/20 History insulin NPH and regular human See Rx Instructions .ROUTE .COMPLEX 04/13/20 04/13/20 04/13/20 History [Novolin 70/30 U-100 Insulin] vit B uoofilq-P-idmjr ac-zinc 1 tab PO DAILY 04/13/20 04/13/20 04/12/20 History [RenaPlex] Allergies Allergy/AdvReac Type Severity Reaction Status Date / Time codeine Allergy Unknown Verified 04/02/20 10:56 Iodinated Contrast Media Allergy ALGY-Hives Verified 04/02/20 10:56 insulin detemir AdvReac Unknown Verified 04/02/20 10:56 [From Levemir U-100 Insulin] insulin glargine AdvReac Unknown Verified 04/02/20 10:56 [From Lantus U-100 Insulin] Current Medications Current Medications Generic Name Dose Route Start Last Admin Trade Name Freq PRN Reason Stop Dose Admin Acetaminophen 650 mg 04/13/20 14:35 04/15/20 13:12 Tylenol PO 650 mg Q6H PRN Administration MILD PAIN Calcium Acetate 1,334 mg 04/14/20 08:00 04/16/20 17:25 Phoslo PO 1,334 mg TIDWM [facility] Administration Carvedilol 12.5 mg 04/13/20 18:00 04/16/20 17:25 Coreg PO 12.5 mg BID SHELBY Administration Ergocalciferol 50,000 unit 04/15/20 06:00 04/15/20 06:53 Vitamin D2 PO 50,000 unit SuWe@0600 SHE[facility] Administration Heparin Sodium (Beef Lung) 5,000 unit 04/13/20 14:35 04/16/20 15:00 Heparin SUBCUT 5,000 unit Q12H SHELBY Administration Insulin Aspart 0 unit 04/13/20 18:00 04/16/20 17:25 Novolog SUBCUT 12 unit TIDWM SHELBY Administration Protocol Insulin Aspart 0 unit 04/13/20 21:00 04/15/20 21:07 Novolog SUBCUT 2 unit BEDTIME SHELBY Administration Protocol Insulin Aspart 25 unit 04/16/20 18:00 04/16/20 17:26 Novolog 70/30 SUBCUT 25 unit 0800,1800 SHELBY Administration Levothyroxine Sodium 150 mcg 04/14/20 09:00 04/16/20 08:13 Synthroid PO 150 mcg DAILY SHE[facility] Administration Peritoneal Dialysis Solution 2,000 ml 04/15/20 11:00 04/16/20 14:38 Dianeal Low Ca W/2.5% Dex INTRAPERIT 2,000 ml Q6H SHELBY Administration Promethazine HCl 25 mg 04/13/20 14:35 04/13/20 15:13 Phenergan PO 25 mg QID PRN Administration Nausea Torsemide 10 mg 04/16/20 08:00 04/16/20 09:32 Demadex PO 10 mg 0800 SHELBY Administration PFSH Acute PFSH: Medical History Congestive heart failure Diabetes Diabetes mellitus type 2, insulin-dependent ESRD (end stage renal disease) On peritoneal dialysis. Followed by Dr. Lora History of congestive heart failure History of MRSA infection Hyperlipidemia Hypertension Hypothyroidism Surgical History History of cholecystectomy History of lumbar surgery Due to epidural abscess in March 2018 Family History Mother Cancer Uterine and breast cancer Father Diabetes Other CAD (coronary artery disease) Social History Smoking and tobacco status: never smoked Alcohol intake: current Alcohol intake frequency: holidays/special occasions only Vitals/I&O/Wt Last Vital Signs Temp 98.7 F 04/15/20 21:00 Pulse 64 04/16/20 17:00 Resp 16 04/16/20 17:00 BP 128/82 04/16/20 17:00 Pulse Ox 98 04/16/20 17:00 04/16/20 04/16/20 04/16/20 06:59 14:59 22:59 Intake Total 1999 / 63 480 / 480 Output Total 2500 / 6900 Balance -500 / -590 480 / 480 Weight last 48 hrs Weight 280 lb Physical Exam Narrative: EXAM NARRATIVE: General: Patient is awake alert and oriented, in no distress. Neck: No JVD, no cervical or supraclavicular lymphadenopathy. Respiratory: Inspection: No visible deformity of the chest wall Palpation: Trachea is mildly deviated to the right, bilateral symmetric expansion Percussion: Bilateral tympanic percussion note both anterior and posteriorly Auscultation: Bilateral clear to auscultation both anterior and posteriorly, no crackles wheezing or rhonchi Cardiovascular: Regular rate and rhythm, S1-S2 present, soft ejection systolic murmur at the aortic area, significant bilateral nonpitting peripheral edema Abdomen: Soft, nontender, distended from obesity, positive bowel sound Skin: No Osler nodes, Janeway lesion, rash Neuro: Mental status is normal, no gross cranial nerve deficit, normal motor Data Micro: Micro: Microbiology 04/16/20 17:13 Blood Culture - Pr eliminary Blood SPECIMEN COLLEC BRYANNA 04/16/20 17:08 Blood Culture - Pr eliminary Blood SPECIMEN COLLEC BRYANNA 04/15/20 16:13 Blood Culture - Pr eliminary Blood NEGATIVE TO TONIE E 04/15/20 16:08 Blood Culture - Pr eliminary Blood NEGATIVE TO TONIE E 04/13/20 10:45 Blood Culture - Pr eliminary Blood Staphylococcus aureus 04/13/20 10:40 Blood Culture - Pr eliminary Blood Staphylococcus aureus 04/14/20 08:40 Blood Culture - Pr eliminary Blood Staphylococcus species 04/13/20 14:57 Gram Stain - Final Peritoneal Fluid Anaerobic Culture - Preliminary Body Fluid Culture - Preliminary 04/14/20 04:09 Gram Stain - Final Peritoneal Fluid Body Fluid Culture - Preliminary 04/13/20 14:57 Mycobacterial Smea r - Preliminary Body Fluids - Per itoneal Other Data: Other data: I have reviewed the patient's laboratory, microbiologic and radiologic data. please see the HPI for detail. A&P Assessment and plan (1) Bacteremia due to Staphylococcus: The patient has MSSA bacteremia likely secondary to [place] valve infection and infective endocarditis. There is no evidence of any epidural abscess or abscess in any other part of the body. Based on the Iglesias criteria the patient has possible infective endocarditis. She has positive rheumatoid factor which is an immunologic phenomenon in the setting of infective endocarditis. Her blood cultures are consistently positive 24 hours apart which is 1 of the major criteria. We do not have any evidence of vegetation by transthoracic echocardiogram. The patient will be started on nafcillin. If she does not clear her bacteremia in the next 2 days will consider adding rifampin to her regimen. Unfortunately, the patient most likely has esophageal stricture and we are unable to do a ERIN today. The plan is to do a Gastrografin upper GI follow-through tomorrow morning and based on the result attempting esophageal dilation if that turns out to be the case. If for whatever reason a ERIN could not be performed the patient will be treated empirically with 6 weeks therapy from the first negative culture. And if the patient is positive for vegetation she will receive the same exact treatment. She does not have any evidence of worsening sepsis. Overall the patient is getting better. I have discussed this plan with the patient in detail and she is in agreement with the plan. Status: Acute Coding Level of Care Code Acute Broadcast Operations Director for [facility] Diagnoses Bacteremia due to Staphylococcus R78.81; B95.8
[2020-04-16] MEDS: nafcillin 2,000 MG in sodium chloride 0.9% (plus) 50 ML 100 MG IV (20:48)
[2020-04-16 21:55] LABS: Glucose Point of Care 303 mg/dL (70-110)
[2020-04-17] VITALS (25 sets, daily range): BP systolic 102–176; BP diastolic 59–91; PULSE 59–65; RESP 11–20; TEMP 36.4–36.7; O2SAT 91–100
[2020-04-17] MEDS: nafcillin 2,000 MG in sodium chloride 0.9% (plus) 50 ML 100 MG IV ×6 (01:16→20:59)
[2020-04-17] MEDS: heparin 5,000 unit/mL INJ 1 mL 5000 UNIT SUBCUT ×2 (03:15→15:45)
[2020-04-17] MEDS: Dianeal low Ca w/2.5% dex 2,000 mL Bag 2000 ML INTRAPERIT ×3 (03:15→21:00)
[2020-04-17 05:25] LABS: Basophils # 0.1 10^3/uL (0.0-0.1); Basophils % 0.3 %; Eosinophils % 0.1 %; Hematocrit 30.2 % (37.0-47.0); Lymphocytes # 0.7 10^3/uL (0.8-4.8); Lymphocytes % 3.5 %; Mean Corpuscular HGB Conc 33.1 g/dL (30.0-36.0); Mean Corpuscular Hemoglobin 32.5 pg (28.0-34.0); Mean Corpuscular Volume 98.1 fL (81-99); Mean Platelet Volume 9.6 fL (7.4-10.4); Monocytes # 0.9 10^3/uL (0.2-0.9); Monocytes % 4.5 %; Neutrophils % 83.1 %; Nucleated Red Blood Cells % 0 %; Platelet Count 372 10^3/cmm (130-400); Red Blood Count 3.08 10^6/uL (4.1-5.3); Red Cell Distribution Width 14.6 % (12.1-15.1); White Blood Count 20.5 10^3/uL (4.0-10.0)
[2020-04-17 05:38] LABS: Alanine Aminotransferase 35 U/L (0-33); Albumin Level 1.7 g/dL (3.5-5.2); Alkaline Phosphatase 95 IU/L (35-105); Anion Gap 21.1 (5-19); Aspartate Amino Transferase 24 U/L (0-32); Calcium 8.6 mg/dL (8.5-10.5); Carbon Dioxide 19 mmol/L (22-29); Chloride 97 mmol/L (98-107); Globulin 4.2 g/dL (1.3-4.6); Glomerular Filtration Rate 3.2 mL/min (90-130); Glucose 354 mg/dL (65-115); Magnesium 2.2 mg/dL (1.7-2.3); Osmolality Calculated 290 mOsm/kg (285-295); Phosphorus 6.1 mg/dL (2.5-4.5); Potassium 4.1 mmol/L (3.5-5.1); Sodium 133 mmol/L (136-145); Total Bilirubin 0.4 mg/dL (0.15-1.2); Total Protein 5.9 g/dL (6.6-8.7)
[2020-04-17 05:52] LABS: Blood Urea Nitrogen 85 mg/dL (6-20)
[2020-04-17 06:17] LABS: Slide Review Slide Review Perform
--- NOTE | 2020-04-17 06:58 | ECG_ITS ---
Measurements Intervals [place] Rate: 62 P: 39 IL: 195 QRS: -10 QRSD: 122 T: 24 QT: 473 QTc: 483 SINUS RHYTHM MODERATE INTRAVENTRICULAR CONDUCTION DELAY VOLTAGE CRITERIA FOR LVH PROLONGED QT INTERVAL Compared to ECG 04/13/2020 10:49:48 Intraventricular conduction delay now present Prolonged QT interval now present Sinus tachycardia no longer present Atrial abnormality no longer present ST (T wave) deviation no longer present Electronically Signed On 04-17-2020 17:59:53 CDT by Allison Gamble M.D. [email or web address]
[2020-04-17] MEDS: nitroglycerin 0.4 mg sublingual Tablet SUBLINGUAL (07:03)
--- NOTE | 2020-04-17 07:16 | PC.NURSE ---
SHIFT SUMMARY PT HAS BEEN ALERT AND ORIENTATED. PT ABLE TO GET UP WITH ONE ASSIST. PT HAS BEEN AFEBRILE. PT HAS BEEN STRICT NPO SINCE MIDNIGHT. PT GOT UP TO [facility] AND GAVE SELF A SPONGE BATH. PT BEGAN HAVING CHEST PAIN, DR LÓPEZ WAS CALLED, ONE NITRO SUBLINGUAL WAS ORDERED AND EKG.
[2020-04-17 07:25] LABS: Glucose Point of Care 367 mg/dL (70-110)
[2020-04-17 07:59] LABS: Troponin T (5th) Once 111 ng/mL (0-10)
[2020-04-17] MEDS: carvedilol 12.5 mg Tablet PO ×2 (09:51→17:26)
[2020-04-17] MEDS: levothyroxine 150 mcg Tablet PO (09:51)
[2020-04-17 10:35] LABS: Troponin T (5th) Once 112 ng/L (0-10)
--- NOTE | 2020-04-17 11:23 | PM.PN ---
Subjective Subjective: Interval history: Patient had an episode of chest pain this morning, lower substernal, radiated to the back between the shoulder blades. Lasted for 30 minutes or so. Responded to 1 sublingual nitro. An EKG was performed which revealed no new changes. The troponin T was 100. According the patient, she gets chest pain similar to this in the past. It was a little more severe than usual. He was very nervous this morning and was trying to reposition herself in the bed, which caused the pain?. She has no pain at the time of my examination. Medications: Medication Review Details: Current Medications Acetaminophen (Tylenol) 650 mg PO Q6H PRN PRN Reason: MILD PAIN Last Admin: 04/15/20 13:12 Dose: 650 mg Documented by: Calcium Acetate (Phoslo) 1,334 mg PO TIDWM [facility] Last Admin: 04/17/20 07:42 Dose: Not Given Documented by: Carvedilol (Coreg) 12.5 mg PO BID [facility] Last Admin: 04/17/20 09:51 Dose: 12.5 mg Documented by: Dextrose (D50w) 25 ml IVP ONCE PRN; Protocol PRN Reason: hypoglycemia protocol Dextrose (D50w) 50 ml IVP PRN PRN; Protocol PRN Reason: hypoglycemia protocol Ergocalciferol (Vitamin D2) 50,000 unit PO SuWe@0600 [facility] Last Admin: 04/15/20 06:53 Dose: 50,000 unit Documented by: Glucagon (Glucagen) 1 mg IM ONCE PRN; Protocol PRN Reason: Adult Acute Hypoglycemia Prot. Heparin Sodium (Beef Lung) (Heparin) 5,000 unit SUBCUT Q12H [facility] Last Admin: 04/17/20 03:15 Dose: 5,000 unit Documented by: Dextrose (D5w) 500 mls @ 100 mls/hr IV ONCE PRN; Protocol PRN Reason: Adult Acute Hypoglycemia Prot Nafcillin Sodium 2,000 mg/ (Sodium Chloride) 50 mls @ 100 mls/hr IV Q4H [facility] Last Admin: 04/17/20 09:51 Dose: 100 mls/hr Documented by: Insulin Aspart (Novolog) 0 unit SUBCUT TIDWM SHELBY; Protocol Last Admin: 04/17/20 09:07 Dose: Not Given Documented by: Insulin Aspart (Novolog) 0 unit SUBCUT BEDTIME [facility]; Protocol Last Admin: 04/16/20 21:07 Dose: 6 unit Documented by: Insulin Aspart (Novolog 70/30) 25 unit SUBCUT 0800,1800 [facility] Last Admin: 04/17/20 09:08 Dose: Not Given Documented by: Levothyroxine Sodium (Synthroid) 150 mcg PO DAILY [facility] Last Admin: 04/17/20 09:51 Dose: 150 mcg Documented by: Naloxone HCl (Narcan) 0.1 mg IVP Q2M PRN PRN Reason: RESPIRATORY RATE < 8/MIN Non-Formulary Medication (Vit B Mabfxsq-P-Wbqoz Ac-Zinc [Renaplex]) 1 tab PO DAILY [facility] Peritoneal Dialysis Solution (Dianeal Low Ca W/2.5% Dex) 2,000 ml INTRAPERIT Q6H [facility] Last Admin: 04/17/20 09:56 Dose: 2,000 ml Documented by: Promethazine HCl (Phenergan) 25 mg PO QID PRN PRN Reason: Nausea Last Admin: 04/13/20 15:13 Dose: 25 mg Documented by: Torsemide (Demadex) 10 mg PO 0800 [facility] Last Admin: 04/17/20 07:42 Dose: Not Given Documented by: Vitals/I&O/Wt Last Vital Signs Temp 97.9 F 04/17/20 02:00 Pulse 64 04/17/20 07:00 Resp 18 04/17/20 07:00 BP 138/72 04/17/20 06:00 Pulse Ox 95 04/17/20 06:00 04/16/20 04/17/20 04/17/20 22:59 06:59 14:59 Intake Total 530 / 530 100 / 630 Balance 530 / 530 100 / 630 Weight last 48 hrs Weight 280 lb Weight 280 lb Physical Exam Narrative: EXAM NARRATIVE: GENERAL: The patient is alert and oriented times three. Not in any acute distress. HEENT: Minimal pallor ; no icterus or lymphadenopathy.Oral cavity: There are no mucous membrane lesions. NECK: Trachea appears to be central. No masses noted. No JVD or thyromegaly appreciated. RESPIRATORY: Chest is symmetrical. No intercostals muscle retraction or any accessory muscle activation. There is no chest wall tenderness. Breath sounds are heard bilaterally. No rales or rhonchi heard. No evidence of any consolidation. BREASTS: Deferred. HEART: The heart sounds are normal. No S3 or S4. No significant murmurs. No pericardial rub. ABDOMEN: Peritoneal dialysis catheter in place. Normal bowel sounds. : Deferred. RECTAL: Deferred. LYMPHATIC: No lymphadenopathy noted in the neck or groin. EXTREMITIES: Chronic lymphedema of both lower extremities MUSCULOSKELETAL: No acute joint deformities or swelling SKIN: There are no significant rashes or ecchymosis NEUROPSYCHIATRIC: The patient is alert and oriented x3. No focal motor deficit. Data : 04/17/20 04:08 04/17/20 04:08 Micro: Microbiology 04/14/20 08:40 Blood Culture - Preliminary Blood Staphylococcus aureus 04/13/20 14:57 Gram Stain - Final Peritoneal Fluid Anaerobic Culture - Preliminary Body Fluid Culture - Final 04/14/20 04:09 Gram Stain - Final Peritoneal Fluid Body Fluid Culture - Final 04/16/20 17:13 Blood Culture - Preliminary Blood SPECIMEN COLLECTED 04/16/20 17:08 Blood Culture - Preliminary Blood SPECIMEN COLLECTED 04/15/20 16:13 Blood Culture - Preliminary Blood NEGATIVE TO DATE 04/15/20 16:08 Blood Culture - Preliminary Blood NEGATIVE TO DATE 04/13/20 10:45 Blood Culture - Preliminary Blood Staphylococcus aureus 04/13/20 10:40 Blood Culture - Preliminary Blood Staphylococcus aureus A&P Assessment and plan (1) Atypical chest pain: The etiology of the chest pain is not clear at this time. In view of the patient's multiple risk factors and history of heart failure, possible developing coronary ischemia causing this is a consideration. For further evaluation of her symptoms, she may benefit from a myocardial perfusion imaging or cardiac authorization. We may do a follow-up troponin T at 3 hours and 6 hours. After reviewing the results, further recommendations will be made. Status: Acute (2) Bacteremia due to Staphylococcus: Patient is on IV antibiotics and is afebrile at this time. In view of her history of recurrent infection, it may be appropriate to go ahead and do a ERIN to evaluate for any evidence of endocarditis. Currently the patient has no contraindication for this procedure. I discussed with the patient in detail the risk and benefits. The risk of aspiration, bleeding, soft tissue injury, perforation of the stomach/esophagus and other concomitant complications were explained to the patient in detail. The patient understood this well and consented to proceed ERIN was attempted yesterday. However I could not advance the ERIN probe into the esophagus because of some obstruction. The nurse car designer attempted this with the laryngoscope which also was unsuccessful. For this reason, it was decided to abort the procedure. Patient may benefit from an upper endoscopy and then decide on further evaluation. Status: Acute (3) History of MRSA infection: Patient is on antibiotics which may be continued Status: Acute (4) History of congestive heart failure: , Currently the heart failure seems to be compensated. Status: Acute Additional A&P Information The troponin T does not show any significant delta and the patient continues remain stable with no recurrence of chest pain, it may be appropriate to go ahead with the ERIN. Further recommendations will be made after the above. 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
--- NOTE | 2020-04-17 12:00 | USCV_ITS ---
Alesia Shaw Age: 59 Gender: F : 1960 Exam Date: 04/17/2020 11:53 Ordering Phys: Elizabeth Gaines MD ([email or web address]) Technologist: Janey Millard Exam Location: [facility] [place] Indication: BP: / HR: Rhythm: Sinus Technical Quality: MEASUREMENTS (Male / Female) Normal Values Medications Patient given IV sedation by anesthesia service, for details please refer to the anesthesia report. Complications None. Proc. Components ERIN was performed at multiple levels. FINDINGS Left Ventricle Normal left ventricular size and systolic function with no regional wall motion abnormalities. Left ventricular ejection fraction is estimated at 65-70 %. Right Ventricle Normal right ventricular size and systolic function. Right Atrium Normal right atrial size. Left Atrium Normal left atrial size. LA Appendage Normal left atrial appendage. Normal flow velocities in the left atrial appendage. No thrombus visualized in the left atrial appendage. IA Septum Normal interatrial septum. No evidence of atrial septal defect or patent foramen ovale by color Doppler or agitated saline study. Mitral Valve Structurally normal mitral valve. Trace mitral valve regurgitation. No mobile vegetation seen on the mitral valve. Aortic Valve Trileaflet aortic valve with thickening of left and noncoronary cusp. No aortic valve stenosis. Trace aortic valve regurgitation. Small globular minimally mobile echodensity seen attached to left coronary cusp (10 x 9 mm). This may represent aortic valve endocarditis. Tricuspid Valve Structurally normal tricuspid valve. Trace tricuspid valve regurgitation. No mobile vegetation seen on the tricuspid valve. Pulmonic Valve Structurally normal pulmonic valve. Trace pulmonary valve regurgitation. Pericardium No pericardial effusion. Aorta Normal size aortic root and proximal ascending aorta. No evidence of aortic dilation, aneurysm or dissection. CONCLUSIONS 1. Normal left ventricular size and systolic function with no regional wall motion abnormalities. Left ventricular ejection fraction is estimated at 65-70 %. 2. Trileaflet aortic valve with thickening of left and noncoronary cusp. Small globular minimally mobile echodensity seen attached to left coronary cusp (10 x 9 mm). This does not have the typical appearance of vegetation, however may represent aortic valve endocarditis. Clinical correlation is advised. 3. Trace aortic valve regurgitation. 4. No prior similar studies to compare. Allison Gamble MD (Electronically Signed) Final Date: 17 April 2020 14:59 Amended: 17 April 2020 17:56 C
[2020-04-17 12:13] LABS: Glucose Point of Care 382 mg/dL (70-110)
--- NOTE | 2020-04-17 12:27 | PC.OT ---
PAMELA SMITH, OTR/L SIPTC NDTC PT SCHEDULED FOR 2 TESTS ON TODAY'S DATE DUE TO DESTABILIZATION SECONDARY TO CARDIAC CONDITION. NURSING STATES THAT OT TX IS NOT INDICATED AT THIS TIME. THERAPIST LEFT HANDOUTS REGARDING ENERGY CONSERVATION AND LOG-ROLLING TECHNIQUES TO REVIEW WITH PT ON A LATER DATE.
--- NOTE | 2020-04-17 12:54 | PC.NURSE ---
to surgery for egd and scope
--- NOTE | 2020-04-17 13:03 | PM.PN ---
Subjective Subjective: Interval history: Feels unwell. PD is uncomfortable for her. Some fleeting chest pain this morning and she had some nitro which may have helped her. Hemodynamics remain stable PD fluid effluent is clear Significant LE edema but no other volume assoc Sx. Exit site and catheter is comfortable Medications: Reviewed: Yes Medication Review Details: Current Medications Acetaminophen (Tylenol) 650 mg PO Q6H PRN PRN Reason: MILD PAIN Last Admin: 04/15/20 13:12 Dose: 650 mg Documented by: Calcium Acetate (Phoslo) 1,334 mg PO TIDWM [facility] Last Admin: 04/17/20 07:42 Dose: Not Given Documented by: Carvedilol (Coreg) 12.5 mg PO BID [facility] Last Admin: 04/17/20 09:51 Dose: 12.5 mg Documented by: Dextrose (D50w) 25 ml IVP ONCE PRN; Protocol PRN Reason: hypoglycemia protocol Dextrose (D50w) 50 ml IVP PRN PRN; Protocol PRN Reason: hypoglycemia protocol Ergocalciferol (Vitamin D2) 50,000 unit PO SuWe@0600 [facility] Last Admin: 04/15/20 06:53 Dose: 50,000 unit Documented by: Glucagon (Glucagen) 1 mg IM ONCE PRN; Protocol PRN Reason: Adult Acute Hypoglycemia Prot. Heparin Sodium (Beef Lung) (Heparin) 5,000 unit SUBCUT Q12H [facility] Last Admin: 04/17/20 03:15 Dose: 5,000 unit Documented by: Dextrose (D5w) 500 mls @ 100 mls/hr IV ONCE PRN; Protocol PRN Reason: Adult Acute Hypoglycemia Prot Nafcillin Sodium 2,000 mg/ (Sodium Chloride) 50 mls @ 100 mls/hr IV Q4H [facility] Last Admin: 04/17/20 09:51 Dose: 100 mls/hr Documented by: Insulin Aspart (Novolog) 0 unit SUBCUT TIDWM [facility]; Protocol Last Admin: 04/17/20 09:07 Dose: Not Given Documented by: Insulin Aspart (Novolog) 0 unit SUBCUT BEDTIME [facility]; Protocol Last Admin: 04/16/20 21:07 Dose: 6 unit Documented by: Insulin Aspart (Novolog 70/30) 25 unit SUBCUT 0800,1800 [facility] Last Admin: 04/17/20 09:08 Dose: Not Given Documented by: Levothyroxine Sodium (Synthroid) 150 mcg PO DAILY [facility] Last Admin: 04/17/20 09:51 Dose: 150 mcg Documented by: Naloxone HCl (Narcan) 0.1 mg IVP Q2M PRN PRN Reason: RESPIRATORY RATE < 8/MIN Non-Formulary Medication (Vit B Glciorp-W-Lukov Ac-Zinc [Renaplex]) 1 tab PO DAILY [facility] Peritoneal Dialysis Solution (Dianeal Low Ca W/2.5% Dex) 2,000 ml INTRAPERIT Q6H [facility] Last Admin: 04/17/20 09:56 Dose: 2,000 ml Documented by: Promethazine HCl (Phenergan) 25 mg PO QID PRN PRN Reason: Nausea Last Admin: 04/13/20 15:13 Dose: 25 mg Documented by: Torsemide (Demadex) 10 mg PO 0800 [facility] Last Admin: 04/17/20 07:42 Dose: Not Given Documented by: Vitals/I&O/Wt Last Vital Signs Temp 97.9 F 04/17/20 02:00 Pulse 64 04/17/20 07:00 Resp 18 04/17/20 07:00 BP 138/72 04/17/20 06:00 Pulse Ox 95 04/17/20 06:00 04/16/20 04/17/20 04/17/20 22:59 06:59 14:59 Intake Total 530 / 530 100 / 630 50 / 50 Balance 530 / 530 100 / 630 50 / 50 Weight last 48 hrs Weight 127.006 kg Weight 127.006 kg Physical Exam Narrative: EXAM NARRATIVE: Exam performed via telemed with the aid of the bedside RN GENERAL: The patient is alert and oriented times three. Not in any acute distress. HEENT: Minimal pallor ; no icterus or lymphadenopathy.Oral cavity: There are no mucous membrane lesions. NECK: Trachea appears to be central. No masses noted. No JVD or thyromegaly appreciated. RESPIRATORY: Chest is symmetrical. No intercostals muscle retraction or any accessory muscle activation. There is no chest wall tenderness. Breath sounds are heard bilaterally. No rales or rhonchi heard. No evidence of any consolidation. BREASTS: Deferred. HEART: The heart sounds are normal. No S3 or S4. No significant murmurs. No pericardial rub. ABDOMEN: Peritoneal dialysis catheter in place. Normal bowel sounds. : Deferred. RECTAL: Deferred. LYMPHATIC: No lymphadenopathy noted in the neck or groin. EXTREMITIES: Chronic lymphedema of both lower extremities MUSCULOSKELETAL: No acute joint deformities or swelling SKIN: There are no significant rashes or ecchymosis NEUROPSYCHIATRIC: The patient is alert and oriented x3. No focal motor deficit. Const: COMMON NORMALS: no acute distress, patient oriented x3 and alert GENERAL APPEARANCE: cooperative, comfortable and ill appearing NUTRITIONAL APPEARANCE: obese ORIENTATION/CONSCIOUSNESS: Yes awake, Yes oriented to person, Yes oriented to place and Yes oriented to time OTHER: Ill-appearing on presentation. HENMT: COMMON NORMALS: normocephalic, atraumatic, hearing grossly normal bilaterally, external ears normal, EAC's normal, TM's normal bilaterally, Normal nasal mucous membranes and turbinates present, moist oral mucous membranes and oropharynx normal HEAD & SCALP: normocephalic and atraumatic NOSE: Normal nasal mucous membranes and turbinates present EXTERNAL EAR: Yes external ears normal EXTERNAL AUDITORY CANAL: EAC's normal TYMPANIC MEMBRANE: TM's normal bilaterally Eye: COMMON NORMALS: Equal, round and reactive pupils present, EOMs intact bilaterally, conjunctivae normal and no scleral icterus CONJUNCTIVA: Yes conjunctivae normal PUPIL: Yes Equal, round and reactive pupils present Neck/C-Spine: COMMON NORMALS: full ROM, no lymphadenopathy, supple and no JVD GENERAL: Yes normal visual inspection Lymph: LYMPHATIC: no lymphadenopathy noted and no lymphedema noted Resp: COMMON NORMALS: normal respiratory effort, No retractions, No use of accessory muscles and clear to auscultation bilaterally EFFORT & INSPECTION: Yes able to speak in complete sentences AUSCULTATION: clear to auscultation bilaterally, no crackles, no rales, no rhonchi and no wheezes OTHER: occasional dry cough Cardio: COMMON NORMALS: no JVD, regular rate, regular rhythm and No murmurs present (Cardio) RATE: regular rate and tachycardic RHYTHM: regular rhythm GI: COMMON NORMALS: Soft to palpation and No hepatosplenomegaly present AUSCULTATION: Yes normoactive bowel sounds and Yes Hypoactive bowel sounds present PALPATION: Yes Soft to palpation, Yes Tenderness to palpation present (GI) (diffuse), No Guarding due to palpation present (GI) and Yes No hepatosplenomegaly present OTHER: Obese, soft, non-tender, PD catheter in place with no surrounding erythema or drainage : COMMON NORMALS: Yes no CVA tenderness BLADDER/KIDNEY EXAM: Yes no CVA tenderness Back/Pelvis: COMMON NORMALS: no CVA tenderness OTHER: No spinous process tenderness Extremity: COMMON NORMALS: normal to inspection NARRATIVE EXTREMITY EXAM: 3+ pitting edema in the lower extremities bilaterally Neuro: COMMON NORMALS: patient oriented x3, CN's II-XII intact bilaterally, moves all extremities and no focal motor deficits SENSORIUM/ORIENTATION: Yes alert, Yes oriented to person, Yes oriented to place and Yes oriented to time SPEECH: speech normal Psych: COMMON NORMALS: mental status grossly normal and cooperative Skin: COMMON NORMALS: no rashes or lesions noted GENERAL SKIN EXAM: no rashes or lesions noted Data : 04/17/20 04:08 04/17/20 04:08 Micro: Microbiology 04/14/20 08:40 Blood Culture - Preliminary Blood Staphylococcus aureus 04/13/20 14:57 Gram Stain - Final Peritoneal Fluid Anaerobic Culture - Preliminary Body Fluid Culture - Final 04/14/20 04:09 Gram Stain - Final Peritoneal Fluid Body Fluid Culture - Final 04/16/20 17:13 Blood Culture - Preliminary Blood SPECIMEN COLLECTED 04/16/20 17:08 Blood Culture - Preliminary Blood SPECIMEN COLLECTED 04/15/20 16:13 Blood Culture - Preliminary Blood NEGATIVE TO DATE 04/15/20 16:08 Blood Culture - Preliminary Blood NEGATIVE TO DATE 04/13/20 10:45 Blood Culture - Preliminary Blood Staphylococcus aureus 04/13/20 10:40 Blood Culture - Preliminary Blood Staphylococcus aureus A&P Additional A&P Information 1. ESRD on PD - will change PD prescription to 3 red, 2 greens, each 2L exchanges, each last 3 hrs - dose meds for eGFR < 15 on PD 2. Staph bacteremia - on Nafcillin - for ERIN today - imaging for abscesses so far unrevealing - PD effluent WBCs below threshold (100) for peritonitis 3. Hemodynamics look stable 4. Anemia of ESRD - at goal for ESRD 5. cont phos binders and renal diet Attestations Medical Necessity Statement*: eval for ESRD mgmt Coding Level of Care Code Acute Debug Technician for Gregorio Thompson
--- NOTE | 2020-04-17 13:05 | SUR.OPER ---
Bubbles pushed by Phu Rubio CRNA at 1305
[2020-04-17] MEDS: sodium chloride 0.9% 1,000 ML 30 ML IV ×2 (15:14)
[2020-04-17] MEDS: promethazine 25 mg Tablet PO (15:19)
[2020-04-17 15:57] LABS: Troponin T (5th) Once 112 ng/L (0-10)
--- NOTE | 2020-04-17 16:44 | P.PN_ITS ---
Subjective Subjective: Interval history: Alesia Shaw is a 59 year old female with a history of end-stage renal disease, on peritoneal dialysis, history of hypertension, type 2 diabetes, hypothyroidism and essential benign hypertension is admitted to the hospital with complaints of fever and chills. She also has history of spinal abscess with MRSA for which she underwent surgical interven tion in 2018 at the [facility] in [place]. After the antibiotic treatment, patient developed kidney failure and ended up requiring peritoneal dialysis. Bld cx: (04/13/20) 3/ growing staph aureus and 04/14/20/ growing MSSA; Bld cx from 04/15 and 04/16 NTD. Last temp spike 100.2 on 04/15 midnight. Last 24 hr: She had episode of chest discomfort earlier this morning and troponin T 111->112-->112. She underwent EGD and ERIN earlier today. Medications: Reviewed: Yes Medication Review Details: Current Medications Acetaminophen (Tylenol) 650 mg PO Q6H PRN PRN Reason: MILD PAIN Last Admin: 04/15/20 13:12 Dose: 650 mg Documented by: Calcium Acetate (Phoslo) 1,334 mg PO TIDWM [facility] Last Admin: 04/17/20 12:09 Dose: Not Given Documented by: Carvedilol (Coreg) 12.5 mg PO BID [facility] Last Admin: 04/17/20 09:51 Dose: 12.5 mg Documented by: Dextrose (D50w) 25 ml IVP ONCE PRN; Protocol PRN Reason: hypoglycemia protocol Dextrose (D50w) 50 ml IVP PRN PRN; Protocol PRN Reason: hypoglycemia protocol Ergocalciferol (Vitamin D2) 50,000 unit PO SuWe@0600 [facility] Last Admin: 04/15/20 06:53 Dose: 50,000 unit Documented by: Glucagon (Glucagen) 1 mg IM ONCE PRN; Protocol PRN Reason: Adult Acute Hypoglycemia Prot. Heparin Sodium (Beef Lung) (Heparin) 5,000 unit SUBCUT Q12H [facility] Last Admin: 04/17/20 15:45 Dose: 5,000 unit Documented by: Dextrose (D5w) 500 mls @ 100 mls/hr IV ONCE PRN; Protocol PRN Reason: Adult Acute Hypoglycemia Prot Nafcillin Sodium 2,000 mg/ (Sodium Chloride) 50 mls @ 100 mls/hr IV Q4H [facility] Last Admin: 04/17/20 15:01 Dose: 100 mls/hr Documented by: Sodium Chloride (Sodium Chloride 0.9%) 1,000 mls @ 30 mls/hr IV .Q24H [facility] Last Admin: 04/17/20 15:14 Dose: 30 mls/hr Documented by: Sodium Chloride (Sodium Chloride 0.9%) 1,000 mls @ 30 mls/hr IV .Q24H ONE Stop: 04/18/20 12:16 Last Admin: 04/17/20 15:14 Dose: 30 mls/hr Documented by: Insulin Aspart (Novolog) 0 unit SUBCUT TIDWM [facility]; Protocol Last Admin: 04/17/20 12:14 Dose: 14 unit Documented by: Insulin Aspart (Novolog) 0 unit SUBCUT BEDTIME [facility]; Protocol Last Admin: 04/16/20 21:07 Dose: 6 unit Documented by: Insulin Aspart (Novolog 70/30) 25 unit SUBCUT 0800,1800 [facility] Last Admin: 04/17/20 09:08 Dose: Not Given Documented by: Levothyroxine Sodium (Synthroid) 150 mcg PO DAILY [facility] Last Admin: 04/17/20 09:51 Dose: 150 mcg Documented by: Naloxone HCl (Narcan) 0.1 mg IVP Q2M PRN PRN Reason: RESPIRATORY RATE < 8/MIN Non-Formulary Medication (Vit B Nuggrkm-W-Syhgk Ac-Zinc [Renaplex]) 1 tab PO DAILY [facility] Peritoneal Dialysis Solution (Dianeal Low Ca W/2.5% Dex) 2,000 ml INTRAPERIT BID [facility] Peritoneal Dialysis Solution (Dianeal Low Ca W/4.25% Dex) 2,000 ml INTRAPERIT TID [facility] Promethazine HCl (Phenergan) 25 mg PO QID PRN PRN Reason: Nausea Last Admin: 04/17/20 15:19 Dose: 25 mg Documented by: Torsemide (Demadex) 10 mg PO 0800 [facility] Last Admin: 04/17/20 07:42 Dose: Not Given Documented by: Vitals/I&O/Wt Last Vital Signs Temp 97.7 F 04/17/20 12:00 Pulse 62 04/17/20 14:00 Resp 16 04/17/20 14:00 BP 124/71 04/17/20 14:00 Pulse Ox 100 04/17/20 14:00 04/17/20 04/17/20 04/17/20 06:59 14:59 22:59 Intake Total 100 / 630 50 / 50 Output Total 1999 Balance 100 / 630 -1950 / -1950 Weight last 48 hrs Weight 279 lb 15.793 oz Weight 280 lb Weight 280 lb Physical Exam Narrative: EXAM NARRATIVE: GENERAL: The patient is alert, oriented and not in any acute distress. HEENT: Mild pallor ; no icterus or lymphadenopathy. NECK: No JVD or thyromegaly appreciated. RESPIRATORY: Chest is symmetrical. Breath sounds are heard bilaterally. No rales or rhonchi. HEART: The heart sounds are normal. No S3 or S4. No significant murmurs. EXTREMITIES: Chronic lymphedema of both lower extremities, trace pitting edema CERT PHARMACY TECH: The patient is alert and oriented x3. No focal motor deficit. Data : 04/17/20 04:08 04/17/20 04:08 Micro: Microbiology 04/14/20 08:40 Blood Culture - Preliminary Blood Staphylococcus aureus 04/13/20 14:57 Gram Stain - Final Peritoneal Fluid Anaerobic Culture - Preliminary Body Fluid Culture - Final 04/14/20 04:09 Gram Stain - Final Peritoneal Fluid Body Fluid Culture - Final 04/16/20 17:13 Blood Culture - Preliminary Blood SPECIMEN COLLECTED 04/16/20 17:08 Blood Culture - Preliminary Blood SPECIMEN COLLECTED 04/15/20 16:13 Blood Culture - Preliminary Blood NEGATIVE TO DATE 04/15/20 16:08 Blood Culture - Preliminary Blood NEGATIVE TO DATE 04/13/20 10:45 Blood Culture - Preliminary Blood Staphylococcus aureus 04/13/20 10:40 Blood Culture - Preliminary Blood Staphylococcus aureus A&P Assessment and plan (1) Infectious endocarditis: ERIN: Thickening noted on left and noncoronary cusp of aortic valve. There is a small globular echodense structure in left coronary cusp which is minima lly mobile. This does not have the typical appearance of vegetation. Clinical correlation is advised. -Recommend considering this as aortic valve vegetation and treating as such. -MSSA on cultures. Status: Acute Qualifiers: Infective endocarditis organism: bacterial Chronicity: subacute Qualified Code(s): I33.0 - Acute and subacute infective endocarditis (2) Atypical chest pain: Patient has multiple CAD risk factors. For further evaluation of her symptoms, she may benefit from a myocardial perfusion imaging or cardiac catheterization. Troponin T at 3 hours and 6 hours unchanged. Status: Acute (3) History of MRSA infection: Patient is on antibiotics which may be continued Status: Acute (4) Hypertension: Status: Acute (5) Diabetes: Status: Acute Qualifiers: Diabetes mellitus type: type 2 (6) ESRD (end stage renal disease): Status: Acute Attestations Medical Necessity Statement*: Needs hospital stay for management of sepsis and endocarditis Procedures Time out/Consent Time Out Performed: Yes Consent for Procedure: Consent obtained from patient, Risks & Benefits reviewed and Agrees to proceed with procedure Additional information: ERIN Procedure note Indication: Evaluate for endocarditis Sedation: Propofol by anesthesia The patient was brought down to the OR. Procedure was explained to the patient in detail and informed consent was obtained. Timeout was called. After achieving adequate sedation, upper GI endoscopy was performed given difficulty in inserting probe yesterday. Mid esophageal narrowing noted however there was no stricture and decision was made to proceed with ERIN. The probe was inserted on second attempt with mild resistance. No blood on the probe post procedure. Prelim report: Normal left ventricle size and systolic function. No left atrial or left atrial appendage mass or thrombus visualized. No ASD or PFO identified. Thickening noted on left and noncoronary cusp of aortic valve. There is a small globular echodense structure in left coronary cusp which is minimally mobile. This does not have the typical appearance of vegetation. Clinical correlation is advised. Full report to follow. Patient tolerated the procedure well after initial recovery in OR was transferred to ICU for further management. Coding Level of Care Code Acute Or Nurse Manager for Gregorio Thompson Diagnoses Infectious endocarditis I33.0 Infective endocarditis organism: bacterial Chronicity: subacute Atypical chest pain R07.89 History of MRSA infection Z86.14 Hypertension I10 Diabetes E11.9 Diabetes mellitus type: type 2 ESRD (end stage renal disease) N18.6
[2020-04-17 16:47] LABS: Glucose Point of Care 356 mg/dL (70-110)
--- NOTE | 2020-04-17 17:08 | PM.PN ---
Subjective Subjective: Interval history: Afebrile over last 24 hrs, hemodynamically stable, no acute events, currently on nasal cannula 4lpm. ERIN completed today. WBC trending up to 20. Blood cx last positive on 04/14 with MSSA Medications: Reviewed: Yes Vitals/I&O/Wt Last Vital Signs Temp 97.7 F 04/17/20 12:00 Pulse 62 04/17/20 14:00 Resp 16 04/17/20 14:00 BP 124/71 04/17/20 14:00 Pulse Ox 100 04/17/20 14:00 04/17/20 04/17/20 04/17/20 06:59 14:59 22:59 Intake Total 100 / 630 50 / 50 Output Total 1999 Balance 100 / 630 -1950 / -1950 Weight last 48 hrs Weight 127 kg Weight 127.006 kg Weight 127.006 kg Physical Exam Narrative: EXAM NARRATIVE: GEN: Awake, alert and oriented, no acute distress CVS: S1S2 N RS: CTA B/L Abd: Soft, nt/nd , bs+ PERFUME AND TOILET WATER MAKER: no focal neuro deficits Data : 04/17/20 04:08 04/17/20 04:08 Micro: Microbiology 04/14/20 08:40 Blood Culture - Preliminary Blood Staphylococcus aureus 04/13/20 14:57 Gram Stain - Final Peritoneal Fluid Anaerobic Culture - Preliminary Body Fluid Culture - Final 04/14/20 04:09 Gram Stain - Final Peritoneal Fluid Body Fluid Culture - Final 04/16/20 17:13 Blood Culture - Preliminary Blood SPECIMEN COLLECTED 04/16/20 17:08 Blood Culture - Preliminary Blood SPECIMEN COLLECTED 04/15/20 16:13 Blood Culture - Preliminary Blood NEGATIVE TO DATE 04/15/20 16:08 Blood Culture - Preliminary Blood NEGATIVE TO DATE 04/13/20 10:45 Blood Culture - Preliminary Blood Staphylococcus aureus 04/13/20 10:40 Blood Culture - Preliminary Blood Staphylococcus aureus A&P Assessment and plan (1) Aortic valve endocarditis: Status: Acute (2) Infectious endocarditis: Status: Acute Qualifiers: Infective endocarditis organism: bacterial Chronicity: subacute Qualified Code(s): I33.0 - Acute and subacute infective endocarditis (3) Sepsis: Status: Acute Qualifiers: Sepsis type: methicillin susceptible Staphylococcus aureus (4) ESRD (end stage renal disease): Status: Acute (5) Diabetes: Patient is on insulin 70/30, 35 units in the morning and 30 units at bedtime. Increase dosing to 30 units twice daily Status: Acute Qualifiers: Diabetes mellitus type: type 2 (6) Hyponatremia: Appears fluid overloaded, PD per nephrology Restarted torsemide Status: Acute (7) Atypical chest pain: Status: Acute (8) Hypertension: Status: Acute Additional A&P Information 1. Sepsis from Infective endocarditis / [place] aortic valve endocarditis -Meets major criteria by way of AV vegetation and positive blood cx with typical organism -Blood culture on 04/13 and 04/14 with recovery of MSSA, thus far no growth from 04/15 -Given chronicity of symptoms lasting 2-3 weeks. 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 -Spinal CT incl cervical, thoracic and lumbar w/contrast do not show any current evidence of abscess or discitis. MRI lumbar spine with Decompression of the thoracolumbar spine from T11 to L1 secondary to the previously described epidural abscess. The abscess is no longer present. -CT CAP without underlying abscesses -ERIN performed today shows trileaflet aortic valve with thickening noted of left and noncoronary cusp. Small globular slightly mobile echodensity seen attached to left coronary cusp (10 x 9 mm). This may represent aortic valve endocarditis. -Currently, patient does not show any signs to warrant early surgery such as associated valve dysfunction, symptoms or signs of heart failure (though hard to interpret as she is on PD and torsemide), paravalvular extension of infection with development of annular or aortic abscess, destructive penetrating lesion and/or heart block, persistent positive cx. However, of particular concern is the rising WBC count, large vegetation (~10mm), likely long standing bacteremia and difficult to assess volume status. For now will plan to continue at least 6 weeks of iv abx treatment, with close monitoring for development of any complications. Trend ESR, CRP every 2-3 weeks, on 04/14> 120 and 165 respectively 2. CKD on PD: appreciate renal recommendations 3. Atypical chest pain : Troponin elevated this am to >100, however without significant deltas, less likely ACS, however will need stress test in the near future 4. Dm: on insulin sliding scale Full code DVT ppx: heparin DVT ppx: Heparin DIet: Clear liquid diet, increase to full liquid carb consistent Code status: Full code, discussed with patient. Attestations Medical Necessity Statement*: need for iv antibiocs for infective endocarditis Coding Level of Care Code Acute School Services Officer for Chg Fwd Diagnoses Aortic valve endocarditis I35.8 Infectious endocarditis I33.0 Infective endocarditis organism: bacterial Chronicity: subacute Sepsis A41.9 Sepsis type: methicillin susceptible Staphylococcus aureus ESRD (end stage renal disease) N18.6 Diabetes E11.9 Diabetes mellitus type: type 2 Hyponatremia E87.1 Atypical chest pain R07.89 Hypertension I10
[2020-04-17] MEDS: calcium acetate 667 mg Capsule 1334 MG PO (17:27)
[2020-04-17] MEDS: insulin aspart 70/30 100 units/1 mL 25 UNIT SUBCUT (17:36)
[2020-04-17] MEDS: Dianeal low Ca w/4.25% dex 2,000 mL Bag 2000 ML INTRAPERIT (17:47)
[2020-04-17 21:08] LABS: Glucose Point of Care 239 mg/dL (70-110)
[2020-04-17] MEDS: bisacodyl 5 mg Tablet PO (21:15)
[2020-04-18] VITALS (33 sets, daily range): BP systolic 89–151; BP diastolic 45–80; PULSE 58–68; RESP 9–21; TEMP 36.4–36.6; O2SAT 93–98
[2020-04-18] MEDS: Dianeal low Ca w/4.25% dex 2,000 mL Bag 2000 ML INTRAPERIT ×4 (00:01→19:48)
[2020-04-18] MEDS: nafcillin 2,000 MG in sodium chloride 0.9% (plus) 50 ML 100 MG IV ×4 (01:11→13:11)
[2020-04-18] MEDS: acetaminophen 325 mg Tablet 650 MG PO ×3 (01:14→20:01)
[2020-04-18] MEDS: Dianeal low Ca w/2.5% dex 2,000 mL Bag 2000 ML INTRAPERIT ×3 (03:32→16:02)
[2020-04-18] MEDS: heparin 5,000 unit/mL INJ 1 mL 5000 UNIT SUBCUT ×2 (03:32→14:10)
[2020-04-18 05:23] LABS: Hematocrit 33.6 % (37.0-47.0); Hemoglobin 10.6 g/dL (11.5-15.3); Mean Corpuscular HGB Conc 31.5 g/dL (30.0-36.0); Mean Corpuscular Hemoglobin 31.5 pg (28.0-34.0); Mean Platelet Volume 9.2 fL (7.4-10.4); Nucleated Red Blood Cells % 0 %; Platelet Count 362 10^3/cmm (130-400); Red Blood Count 3.36 10^6/uL (4.1-5.3); Red Cell Distribution Width 14.6 % (12.1-15.1); White Blood Count 17.6 10^3/uL (4.0-10.0)
[2020-04-18 05:41] LABS: Alanine Aminotransferase 35 U/L (0-33); Albumin Level 1.8 g/dL (3.5-5.2); Alkaline Phosphatase 82 IU/L (35-105); Anion Gap 23.1 (5-19); Aspartate Amino Transferase 22 U/L (0-32); Blood Urea Nitrogen 73 mg/dL (6-20); Calcium 8.7 mg/dL (8.5-10.5); Carbon Dioxide 18 mmol/L (22-29); Chloride 98 mmol/L (98-107); Globulin 4.4 g/dL (1.3-4.6); Glomerular Filtration Rate 3.6 mL/min (90-130); Glucose 303 mg/dL (65-115); Magnesium 2.2 mg/dL (1.7-2.3); Osmolality Calculated 293 mOsm/kg (285-295); Phosphorus 6.9 mg/dL (2.5-4.5); Potassium 3.1 mmol/L (3.5-5.1); Sodium 136 mmol/L (136-145); Total Bilirubin 0.4 mg/dL (0.15-1.2); Total Protein 6.2 g/dL (6.6-8.7)
[2020-04-18 06:10] LABS: Slide Review Slide Review Perform
[2020-04-18 06:11] LABS: Absolute Eosinophils 0.3 10^3/cmm (0.0-0.7); Absolute Neutrophil 13.9 10^3/cmm (1.4-6.5); Absolute Segmented Neutrophil 12.1 10/cmm (1.6-7.1); Band Neutrophils Absolute 1.8 10^3/cmm (0.0-1.2); Eosinophils 2 %; Lymphocytes 10 %; Monocytes Absolute 0.7 10^3/cmm (0.1-0.6); Platelet Estimate Increased (Normal); Segmented Neutrophils 69 %; Total Cells Counted 100 (0-100)
--- NOTE | 2020-04-18 06:11 | PC.NURSE ---
SHIFT SUMMARY PT HAS REMAINED ALERT AND ORIENTATED. PT WAS ABLE TO HAVE BOWEL MOVEMENT. PT ABLE TO GET UP TO BSC WITH MINIMAL ASSISTANCE. DR LÓPEZ NOTIFIED OF ELEVATED CREATININE. PT HAS BEEN AFEBRILE. PT FLUIDS REMAIN RUNNING. PT WAS ABLE TO SWALLOW MEDS WITHOUT PROBLEM. IV REMAINS PATENT.
[2020-04-18 07:12] LABS: Glucose Point of Care 296 mg/dL (70-110)
[2020-04-18] MEDS: insulin aspart 70/30 100 units/1 mL 25 UNIT SUBCUT ×2 (07:57→17:03)
[2020-04-18] MEDS: TORSEmide 20 mg Tablet 10 MG PO (09:07)
[2020-04-18] MEDS: calcium acetate 667 mg Capsule 1334 MG PO ×3 (09:08→17:04)
[2020-04-18] MEDS: carvedilol 12.5 mg Tablet PO ×2 (09:13→17:04)
[2020-04-18] MEDS: levothyroxine 150 mcg Tablet PO (09:14)
--- NOTE | 2020-04-18 10:07 | PC.SOCIAL ---
IMM Updated Page 2 of IMM updated and given to the patient. Initialed, dated, and timed and placed back in chart.
--- NOTE | 2020-04-18 11:09 | P.PN_ITS ---
Subjective Subjective: Interval history: tolerating PD well with improved UF since adjusting her prescription. Edema is improving. She feels weak and unwell. ERIN report noted. Afebrile. Medications: Reviewed: Yes Medication Review Details: Current Medications Acetaminophen (Tylenol) 650 mg PO Q6H PRN PRN Reason: MILD PAIN Last Admin: 04/15/20 13:12 Dose: 650 mg Documented by: Calcium Acetate (Phoslo) 1,334 mg PO TIDWM [facility] Last Admin: 04/17/20 12:09 Dose: Not Given Documented by: Carvedilol (Coreg) 12.5 mg PO BID [facility] Last Admin: 04/17/20 09:51 Dose: 12.5 mg Documented by: Dextrose (D50w) 25 ml IVP ONCE PRN; Protocol PRN Reason: hypoglycemia protocol Dextrose (D50w) 50 ml IVP PRN PRN; Protocol PRN Reason: hypoglycemia protocol Ergocalciferol (Vitamin D2) 50,000 unit PO SuWe@0600 [facility] Last Admin: 04/15/20 06:53 Dose: 50,000 unit Documented by: Glucagon (Glucagen) 1 mg IM ONCE PRN; Protocol PRN Reason: Adult Acute Hypoglycemia Prot. Heparin Sodium (Beef Lung) (Heparin) 5,000 unit SUBCUT Q12H [facility] Last Admin: 04/17/20 15:45 Dose: 5,000 unit Documented by: Dextrose (D5w) 500 mls @ 100 mls/hr IV ONCE PRN; Protocol PRN Reason: Adult Acute Hypoglycemia Prot Nafcillin Sodium 2,000 mg/ (Sodium Chloride) 50 mls @ 100 mls/hr IV Q4H [facility] Last Admin: 04/17/20 15:01 Dose: 100 mls/hr Documented by: Sodium Chloride (Sodium Chloride 0.9%) 1,000 mls @ 30 mls/hr IV .Q24H [facility] Last Admin: 04/17/20 15:14 Dose: 30 mls/hr Documented by: Sodium Chloride (Sodium Chloride 0.9%) 1,000 mls @ 30 mls/hr IV .Q24H ONE Stop: 04/18/20 12:16 Last Admin: 04/17/20 15:14 Dose: 30 mls/hr Documented by: Insulin Aspart (Novolog) 0 unit SUBCUT TIDWM [facility]; Protocol Last Admin: 04/17/20 12:14 Dose: 14 unit Documented by: Insulin Aspart (Novolog) 0 unit SUBCUT BEDTIME [facility]; Protocol Last Admin: 04/16/20 21:07 Dose: 6 unit Documented by: Insulin Aspart (Novolog 70/30) 25 unit SUBCUT 0800,1800 [facility] Last Admin: 04/17/20 09:08 Dose: Not Given Documented by: Levothyroxine Sodium (Synthroid) 150 mcg PO DAILY [facility] Last Admin: 04/17/20 09:51 Dose: 150 mcg Documented by: Naloxone HCl (Narcan) 0.1 mg IVP Q2M PRN PRN Reason: RESPIRATORY RATE < 8/MIN Non-Formulary Medication (Vit B [id number] Ac-Zinc [Renaplex]) 1 tab PO DAILY [facility] Peritoneal Dialysis Solution (Dianeal Low Ca W/2.5% Dex) 2,000 ml INTRAPERIT BID [facility] Peritoneal Dialysis Solution (Dianeal Low Ca W/4.25% Dex) 2,000 ml INTRAPERIT TID [facility] Promethazine HCl (Phenergan) 25 mg PO QID PRN PRN Reason: Nausea Last Admin: 04/17/20 15:19 Dose: 25 mg Documented by: Torsemide (Demadex) 10 mg PO 0800 [facility] Last Admin: 04/17/20 07:42 Dose: Not Given Documented by: Vitals/I&O/Wt Last Vital Signs Temp 97.9 F 04/18/20 08:00 Pulse 64 04/18/20 08:00 Resp 15 04/18/20 08:00 BP 135/69 04/18/20 08:00 Pulse Ox 98 04/18/20 08:00 04/17/20 04/18/20 04/18/20 22:59 06:59 14:59 Intake Total 270 / 320 150 / 470 50 / 50 Output Total 1999 Balance 270 / -1680 150 / -1530 50 / 50 Weight last 48 hrs Weight 125.305 kg Weight 127 kg Weight 127 kg Weight 127.006 kg Physical Exam Narrative: EXAM NARRATIVE: Exam performed via telemed with the aid of the bedside RN GENERAL: The patient is alert and oriented times three. Not in any acute distress. HEENT: Minimal pallor ; no icterus or lymphadenopathy.Oral cavity: There are no mucous membrane lesions. NECK: Trachea appears to be central. No masses noted. No JVD or thyromegaly appreciated. RESPIRATORY: Chest is symmetrical. No intercostals muscle retraction or any accessory muscle activation. There is no chest wall tenderness. Breath sounds are heard bilaterally. No rales or rhonchi heard. No evidence of any consolidation. BREASTS: Deferred. HEART: The heart sounds are normal. No S3 or S4. No significant murmurs. No pericardial rub. ABDOMEN: Peritoneal dialysis catheter in place. Normal bowel sounds. : Deferred. RECTAL: Deferred. LYMPHATIC: No lymphadenopathy noted in the neck or groin. EXTREMITIES: Chronic lymphedema of both lower extremities MUSCULOSKELETAL: No acute joint deformities or swelling SKIN: There are no significant rashes or ecchymosis NEUROPSYCHIATRIC: The patient is alert and oriented x3. No focal motor deficit. Const: COMMON NORMALS: no acute distress, patient oriented x3 and alert GENERAL APPEARANCE: cooperative, comfortable and ill appearing NUTRITIONAL APPEARANCE: obese ORIENTATION/CONSCIOUSNESS: Yes awake, Yes oriented to person, Yes oriented to place and Yes oriented to time OTHER: Ill-appearing on presentation. HENMT: COMMON NORMALS: normocephalic, atraumatic, hearing grossly normal bilaterally, external ears normal, EAC's normal, TM's normal bilaterally, Normal nasal mucous membranes and turbinates present, moist oral mucous membranes and oropharynx normal HEAD & SCALP: normocephalic and atraumatic NOSE: Normal nasal mucous membranes and turbinates present EXTERNAL EAR: Yes external ears normal EXTERNAL AUDITORY CANAL: EAC's normal TYMPANIC MEMBRANE: TM's normal bilaterally Eye: COMMON NORMALS: Equal, round and reactive pupils present, EOMs intact bilaterally, conjunctivae normal and no scleral icterus CONJUNCTIVA: Yes conjunctivae normal PUPIL: Yes Equal, round and reactive pupils present Neck/C-Spine: COMMON NORMALS: full ROM, no lymphadenopathy, supple and no JVD GENERAL: Yes normal visual inspection Lymph: LYMPHATIC: no lymphadenopathy noted and no lymphedema noted Resp: COMMON NORMALS: normal respiratory effort, No retractions, No use of accessory muscles and clear to auscultation bilaterally EFFORT & INSPECTION: Yes able to speak in complete sentences AUSCULTATION: clear to auscultation bilaterally, no crackles, no rales, no rhonchi and no wheezes OTHER: occasional dry cough Cardio: COMMON NORMALS: no JVD, regular rate, regular rhythm and No murmurs present (Cardio) RATE: regular rate and tachycardic RHYTHM: regular rhythm GI: COMMON NORMALS: Soft to palpation and No hepatosplenomegaly present AUSCULTATION: Yes normoactive bowel sounds and Yes Hypoactive bowel sounds present PALPATION: Yes Soft to palpation, Yes Tenderness to palpation present (GI) (diffuse), No Guarding due to palpation present (GI) and Yes No hepatosplenomegaly present OTHER: Obese, soft, non-tender, PD catheter in place with no surrounding erythema or drainage : COMMON NORMALS: Yes no CVA tenderness BLADDER/KIDNEY EXAM: Yes no CVA tenderness Back/Pelvis: COMMON NORMALS: no CVA tenderness OTHER: No spinous process tenderness Extremity: COMMON NORMALS: normal to inspection NARRATIVE EXTREMITY EXAM: 3+ pitting edema in the lower extremities bilaterally Neuro: COMMON NORMALS: patient oriented x3, CN's II-XII intact bilaterally, moves all extremities and no focal motor deficits SENSORIUM/ORIENTATION: Yes alert, Yes oriented to person, Yes oriented to place and Yes oriented to time SPEECH: speech normal Psych: COMMON NORMALS: mental status grossly normal and cooperative Skin: COMMON NORMALS: no rashes or lesions noted GENERAL SKIN EXAM: no rashes or lesions noted Data : 04/18/20 04:55 04/18/20 04:55 Micro: Microbiology 04/14/20 08:40 Blood Culture - Preliminary Blood Staphylococcus aureus 04/13/20 10:45 Blood Culture - Final Blood Staphylococcus aureus 04/13/20 10:40 Blood Culture - Final Blood Staphylococcus aureus 04/13/20 14:57 Gram Stain - Final Peritoneal Fluid Anaerobic Culture - Preliminary Body Fluid Culture - Final 04/16/20 17:13 Blood Culture - Preliminary Blood NEGATIVE TO DATE 04/16/20 17:08 Blood Culture - Preliminary Blood NEGATIVE TO DATE 04/14/20 04:09 Gram Stain - Final Peritoneal Fluid Body Fluid Culture - Final A&P Additional A&P Information 1. ESRD on PD - PD prescription 3 red, 2 greens, each 2L exchanges, each last 3 hrs - dose meds for eGFR < 15 on PD 2. Staph bacteremia - on Nafcillin - ERIN noted for thickening of AV leaflet - PD effluent WBCs below threshold (100) for peritonitis 3. Hemodynamics look stable 4. Anemia of ESRD - at goal for ESRD 5. cont phos binders and renal diet Attestations Medical Necessity Statement*: mgmt of PD Coding Level of Care Code Acute Nurse Practitioner Adult for Gregorio Thompson
[2020-04-18 11:24] LABS: Glucose Point of Care 227 mg/dL (70-110)
--- NOTE | 2020-04-18 11:36 | PM.PN ---
Subjective Subjective: Interval history: Afebrile, last temperature 100.2F on 04/15. Last positive cx from 04/14, clear since 04/15. Medications: Reviewed: Yes Medication Review Details: Current Medications Acetaminophen (Tylenol) 650 mg PO Q6H PRN PRN Reason: MILD PAIN Last Admin: 04/15/20 13:12 Dose: 650 mg Documented by: Calcium Acetate (Phoslo) 1,334 mg PO TIDWM [facility] Last Admin: 04/17/20 12:09 Dose: Not Given Documented by: Carvedilol (Coreg) 12.5 mg PO BID [facility] Last Admin: 04/17/20 09:51 Dose: 12.5 mg Documented by: Dextrose (D50w) 25 ml IVP ONCE PRN; Protocol PRN Reason: hypoglycemia protocol Dextrose (D50w) 50 ml IVP PRN PRN; Protocol PRN Reason: hypoglycemia protocol Ergocalciferol (Vitamin D2) 50,000 unit PO SuWe@0600 [facility] Last Admin: 04/15/20 06:53 Dose: 50,000 unit Documented by: Glucagon (Glucagen) 1 mg IM ONCE PRN; Protocol PRN Reason: Adult Acute Hypoglycemia Prot. Heparin Sodium (Beef Lung) (Heparin) 5,000 unit SUBCUT Q12H [facility] Last Admin: 04/17/20 15:45 Dose: 5,000 unit Documented by: Dextrose (D5w) 500 mls @ 100 mls/hr IV ONCE PRN; Protocol PRN Reason: Adult Acute Hypoglycemia Prot Nafcillin Sodium 2,000 mg/ (Sodium Chloride) 50 mls @ 100 mls/hr IV Q4H [facility] Last Admin: 04/17/20 15:01 Dose: 100 mls/hr Documented by: Sodium Chloride (Sodium Chloride 0.9%) 1,000 mls @ 30 mls/hr IV .Q24H [facility] Last Admin: 04/17/20 15:14 Dose: 30 mls/hr Documented by: Sodium Chloride (Sodium Chloride 0.9%) 1,000 mls @ 30 mls/hr IV .Q24H ONE Stop: 04/18/20 12:16 Last Admin: 04/17/20 15:14 Dose: 30 mls/hr Documented by: Insulin Aspart (Novolog) 0 unit SUBCUT TIDWM [facility]; Protocol Last Admin: 04/17/20 12:14 Dose: 14 unit Documented by: Insulin Aspart (Novolog) 0 unit SUBCUT BEDTIME [facility]; Protocol Last Admin: 04/16/20 21:07 Dose: 6 unit Documented by: Insulin Aspart (Novolog 70/30) 25 unit SUBCUT 0800,1800 [facility] Last Admin: 04/17/20 09:08 Dose: Not Given Documented by: Levothyroxine Sodium (Synthroid) 150 mcg PO DAILY [facility] Last Admin: 04/17/20 09:51 Dose: 150 mcg Documented by: Naloxone HCl (Narcan) 0.1 mg IVP Q2M PRN PRN Reason: RESPIRATORY RATE < 8/MIN Non-Formulary Medication (Vit B Jrbyhsm-T-Dztnh Ac-Zinc [Renaplex]) 1 tab PO DAILY [facility] Peritoneal Dialysis Solution (Dianeal Low Ca W/2.5% Dex) 2,000 ml INTRAPERIT BID [facility] Peritoneal Dialysis Solution (Dianeal Low Ca W/4.25% Dex) 2,000 ml INTRAPERIT TID [facility] Promethazine HCl (Phenergan) 25 mg PO QID PRN PRN Reason: Nausea Last Admin: 04/17/20 15:19 Dose: 25 mg Documented by: Torsemide (Demadex) 10 mg PO 0800 [facility] Last Admin: 04/17/20 07:42 Dose: Not Given Documented by: Vitals/I&O/Wt Last Vital Signs Temp 97.9 F 04/18/20 08:00 Pulse 64 04/18/20 08:00 Resp 15 04/18/20 08:00 BP 135/69 04/18/20 08:00 Pulse Ox 98 04/18/20 08:00 04/17/20 04/18/20 04/18/20 22:59 06:59 14:59 Intake Total 270 / 320 150 / 470 1006 / 1006 Output Total 1999 Balance 270 / -1680 150 / -1530 1006 / 1006 Weight last 48 hrs Weight 125.305 kg Weight 127 kg Weight 127 kg Weight 127.006 kg Physical Exam Narrative: EXAM NARRATIVE: GEN: Awake, alert and oriented, no acute distress CVS: S1S2 N RS: CTA B/L Abd: Soft, nt/nd , bs+ 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 SURGEON: no focal neuro deficits EXT: lower extremity lymphedema Data : 04/18/20 04:55 04/18/20 04:55 Micro: Microbiology 04/14/20 08:40 Blood Culture - Preliminary Blood Staphylococcus aureus 04/13/20 10:45 Blood Culture - Final Blood Staphylococcus aureus 04/13/20 10:40 Blood Culture - Final Blood Staphylococcus aureus 04/13/20 14:57 Gram Stain - Final Peritoneal Fluid Anaerobic Culture - Preliminary Body Fluid Culture - Final 04/16/20 17:13 Blood Culture - Preliminary Blood NEGATIVE TO DATE 04/16/20 17:08 Blood Culture - Preliminary Blood NEGATIVE TO DATE 04/14/20 04:09 Gram Stain - Final Peritoneal Fluid Body Fluid Culture - Final A&P Assessment and plan (1) Aortic valve endocarditis: Status: Acute (2) Infectious endocarditis: Status: Acute Qualifiers: Infective endocarditis organism: bacterial Chronicity: subacute Qualified Code(s): I33.0 - Acute and subacute infective endocarditis (3) Sepsis: Status: Acute Qualifiers: Sepsis type: methicillin susceptible Staphylococcus aureus (4) ESRD (end stage renal disease): Status: Acute (5) Diabetes: Patient is on insulin 70/30, 35 units in the morning and 30 units at bedtime. Increase dosing to 30 units twice daily Status: Acute Qualifiers: Diabetes mellitus type: type 2 (6) Hyponatremia: Appears fluid overloaded, PD per nephrology Restarted torsemide Status: Acute (7) Atypical chest pain: Status: Acute (8) Hypertension: Status: Acute Additional A&P Information 1. Sepsis from Infective endocarditis / [place] aortic valve endocarditis -Meets major criteria by way of AV vegetation and positive blood cx with typical organism -Blood culture on 04/13 and 04/14 with recovery of MSSA, thus far no growth from 04/15 -Given chronicity of symptoms lasting 2-3 weeks. 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 -Spinal CT incl cervical, thoracic and lumbar w/contrast do not show any current evidence of abscess or discitis. MRI lumbar spine with Decompression of the thoracolumbar spine from T11 to L1 secondary to the previously described epidural abscess. The abscess is no longer present. -CT CAP without underlying abscesses -ERIN performed shows trileaflet aortic valve with thickening noted of left and noncoronary cusp. Small globular slightly mobile echodensity seen attached to left coronary cusp (10 x 9 mm). This may represent aortic valve endocarditis. -Currently, patient does not show any signs to warrant early surgery such as associated valve dysfunction, symptoms or signs of heart failure (though hard to interpret as she is on PD and torsemide), paravalvular extension of infection with development of annular or aortic abscess, destructive penetrating lesion and/or heart block, persistent positive cx. Echodensity doesnt appear freely mobile, less risk for embolization. However, of concern is the persisting WBC count(though she did receive steroids prior to her spine CT), large vegetation (~10mm), likely long standing bacteremia and difficult to assess volume status. For now will plan to continue at least 6 weeks of iv abx treatment, with close monitoring for development of any complications. Trend ESR, CRP every 2-3 weeks, on 04/14> 120 and 165 respectively On discharge will plan to transition to iv oxacillin via continuous home infusion pump if available. If not available, will likely use nafcillin vs cefazolin upon discharge, though would prefer nafcillin ideally. 2. CKD on PD: appreciate renal recommendations 3. Atypical chest pain : Troponin elevated this am to >100, however without significant deltas, less likely ACS, however will need stress test in the near future 4. 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
[2020-04-18] MEDS: potassium chloride oral liq 20 mEq/15 mL UDC 40 MEQ PO (14:44)
[2020-04-18 16:13] LABS: Glucose Point of Care 300 mg/dL (70-110)
[2020-04-18] MEDS: nafcillin 2,000 MG in sodium chloride 0.9% (plus) 50 ML 50 MG IV ×2 (17:02→21:12)
--- NOTE | 2020-04-18 17:10 | PM.PN ---
Subjective Subjective: Interval history: Stable denies any complaint. Vitals/I&O/Wt Last Vital Signs Temp 97.7 F 04/18/20 16:00 Pulse 66 04/18/20 16:00 Resp 17 04/18/20 16:00 BP 128/69 04/18/20 16:00 Pulse Ox 97 04/18/20 16:00 04/18/20 04/18/20 04/18/20 06:59 14:59 22:59 Intake Total 150 / 470 1532 / 1532 Output Total 1999 Balance 150 / -1530 1532 / 1532 Weight last 48 hrs Weight 276 lb 4 oz Weight 279 lb 15.793 oz Weight 279 lb 15.793 oz Weight 280 lb Physical Exam Narrative: EXAM NARRATIVE: GENERAL: Patient is alert, awake and oriented x3. NECK: No jugular vein distension. HEENT: No cyanosis. No icterus. No pallor. HEART: Regular S1 and S2. No murmur, rub or gallop. LUNGS: Clear to auscultate bilaterally. ABDOMEN: Soft, nontender and nondistended. Positive bowel sounds. No guarding, rebound or tenderness. CENTRAL NERVOUS SYSTEM: Grossly nonfocal. EXTREMITIES: Lower extremities without edema Data : 04/18/20 04:55 04/18/20 04:55 Micro: Microbiology 04/15/20 16:08 Blood Culture - Preliminary Blood Gram positive cocci 04/14/20 08:40 Blood Culture - Preliminary Blood Staphylococcus aureus 04/13/20 10:45 Blood Culture - Final Blood Staphylococcus aureus 04/13/20 10:40 Blood Culture - Final Blood Staphylococcus aureus 04/13/20 14:57 Gram Stain - Final Peritoneal Fluid Anaerobic Culture - Preliminary Body Fluid Culture - Final 04/16/20 17:13 Blood Culture - Preliminary Blood NEGATIVE TO DATE 04/16/20 17:08 Blood Culture - Preliminary Blood NEGATIVE TO DATE A&P Assessment and plan (1) Infectious endocarditis: Patient has suspicion of aortic valve endocarditis as it shows thickening, and the presence of persistent bacteremia we will assume it to be bacterial endocarditis. There is no perforation of the valve therefore we recommend continuimg antibiotics as per ID and medicine. Repeat echocardiogram in 3 months. Continue constant observation with repeated exam over the next few weeks. Status: Acute Qualifiers: Infective endocarditis organism: bacterial Chronicity: subacute Qualified Code(s): I33.0 - Acute and subacute infective endocarditis (2) Congestive heart failure: Well compensated continue med Status: Acute Qualifiers: Heart failure type: diastolic Heart failure chronicity: chronic Qualified Code(s): I50.32 - Chronic diastolic (congestive) heart failure (3) Hypertension: Optimally controlled continue medicine Status: Acute Qualifiers: Hypertension type: essential hypertension Qualified Code(s): I10 - Essential (primary) hypertension (4) ESRD (end stage renal disease): As per medicine and nephrology Status: Acute Attestations Medical Necessity Statement*: Require continuation hospitalization for above defined care. 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
--- NOTE | 2020-04-18 19:23 | PM.TDS ---
Transfer Summary Providers Date of Admission: 04/13/20 13:01 Date of Discharge: 04/18/20 Attending Provider at Admission: Mona Angel DO Attending Provider at Transfer: Althea Larkin MD Primary Care Provider: Karen Bear MD Anticipated Date of Transfer: Anticipated date of transfer: 04/18/20 Receiving Facility & Provider: Receiving Provider: [Dr. Crystal, cardiothoracic service ] Receiving facility: [[facility]] Diagnoses at Discharge Discharge Diagnosis (1) Infectious endocarditis: Status: Acute Qualifiers: Chronicity: subacute Infective endocarditis organism: bacterial Qualified Code(s): I33.0 - Acute and subacute infective endocarditis (2) Congestive heart failure: Status: Acute Qualifiers: Heart failure chronicity: chronic Heart failure type: diastolic Qualified Code(s): I50.32 - Chronic diastolic (congestive) heart failure (3) Hypertension: Status: Acute Qualifiers: Hypertension type: essential hypertension Qualified Code(s): I10 - Essential (primary) hypertension (4) ESRD (end stage renal disease): Status: Acute Problem details: On peritoneal dialysis. Followed by Dr. Lora Reason for Visit Reason for Visit: N/V Hospital Course Hospital Course: from HPI: Alesia Shaw is a 59 year old female with a past medical history of end-stage renal disease on peritoneal dialysis, hypertension, diastolic congestive heart failure, history of an epidural abscess, hypothyroidism and diabetes that presented to the emergency department on 04/13 for nausea, vomiting, diarrhea for 1 month. Patient reported that she is also been having fever for the past 1 month. Patient reports that she has had a fever at home as high as 105. She discussed the above symptoms via telemedicine and was prescribed a course of doxycycline.Patient was seen and evaluated in the emergency department noted to have concern for sepsis with concern for spontaneous bacterial peritonitis initially and started on ceftriaxone. Subsequently her blood culture returned positive for MSSA on 04/13 and 04/14. Peritoneal call count was 70, PMNLs 26%. No gross cellulitic changes at site of PD. She has chronic lymphedema without current signs of cellulitis. With recovery of bacteremia, further w/up pursued as below. She is currentlty on Nafcillin. She is being transferred now to [facility] per her and family request for higher level of care. Discharge Summary: 1. Sepsis from Infective endocarditis / [place] aortic valve endocarditis -Meets major criteria by way of AV vegetation and positive blood cx with typical organism -Blood culture on 04/13 and 04/14 with recovery of MSSA, thus far no growth from 04/15 -Given chronicity of symptoms lasting 2-3 weeks. she is likely to have been bacteremic for much longer duration -Patient started on Ceftriaxone initially, with switch to nafcillin on 04/16, continue same for now -Portal of entry may be from PD catheter, however peritoneal gram stain and cx without organisms -Of concern, patient reportedly has a history of MRSA epidural abscess, however cx results not available for review directly- records requested from [facility]. -Spinal CT incl cervical, thoracic and lumbar w/contrast do not show any current evidence of abscess or discitis. MRI lumbar spine with Decompression of the thoracolumbar spine from T11 to L1 secondary to the previous epidural abscess. The abscess is no longer present. -CT CAP without underlying abscesses or collections -ERIN performed on 04/17 shows trileaflet aortic valve with thickening noted of left and noncoronary cusp. Small globular slightly mobile echodensity seen attached to left coronary cusp (10 x 9 mm). This may represent aortic valve endocarditis. Cardiology consult appreciated. -Currently, patient does not show any signs to warrant early surgery such as associated valve dysfunction, symptoms or signs of heart failure (though hard to interpret as she is on PD and torsemide), paravalvular extension of infection with development of annular or aortic abscess, destructive penetrating lesion and/or heart block, persistent positive cx. However, of concern is the persisting WBC count, large vegetation (~10mm), likely long standing bacteremia and difficult to assess volume status. For now will plan to continue at least 6 weeks of iv abx treatment, with close monitoring for development of any complications. Trend ESR, CRP every 2-3 weeks, on 04/14> 120 and 165 respectively On discharge will plan to transition to iv oxacillin via continuous home infusion pump if available. If not available, will likely use nafcillin vs cefazolin upon discharge, though would prefer nafcillin ideally. PICC line to facilitate above. However, will wait until blood cx from 04/15 and 04/16 definitive negative. last fever 04/15, afebrile since then 2. CKD on PD: appreciate renal recommendations 3. Atypical chest pain on 6/5 : Troponin elevated to >111, however without significant deltas or acute ST-T changes, less likely ACS. May be secondary to endocarditis vs renal dysfunction. 4. Dm: on insulin sliding scale Dvt ppx: heparin s/c Full code Physical Exam Narrative: EXAM NARRATIVE: GEN: Awake, alert and oriented, no acute distress CVS: S1S2 N RS: CTA B/L Abd: Soft, nt/nd , bs+ , PD site without gross signs of cellulitis or infection MAGNETIZER: no focal neuro deficits TS Data Data Completed and Pending: Completed Studies During Hospitalization Category Date Time Status CT abdomen pelvis wo con [id number] Urge nt Cat Scan 04/13/20 11:[address] cervical spine w con [id number] Routi ne Cat Scan 04/16/20 04:[address] chest wo con 7 1250 Routine Cat Scan 04/14/20 07:[address] lumbar spine w con [id number] Routine Cat Scan 04/16/20 04:[address] thoracic spine w con [id number] Routi ne Cat Scan 04/16/20 04:30 Completed XR chest 1V pierce ble [id number] Stat Exams 04/13/20 10:20 Completed MR lumbar spine w o con* [id number] Routi ne MRI 04/14/20 08:49 Completed MR thoracic spin wo con* [id number] Rout ine MRI 04/14/20 08:49 Completed CV echo complete* [id number] Routine Ultrasound 04/14/20 08:53 Completed CV echo transesop hageal [id number] Routi ne Ultrasound 04/17/20 12:00 Completed US gall bladder 7 6705 Routine Ultrasound 04/15/20 09:41 Completed US renal BI* [id number] Routine Ultrasound 04/13/20 13:11 Completed Pending at discharge Category Date Time Status Anaerobic Culture Routine Lab 04/13/20 14:57 Results Blood Culture Sta t Lab 04/14/20 08:40 Results Blood Culture Sta t Lab 04/15/20 16:13 Results Blood Culture Sta t Lab 04/16/20 17:13 Results Body Fluid Cultur e & GS Routine Lab 04/13/20 14:57 Results Complete Blood Co unt w/Auto AM LABS Lab 04/19/20 04:00 Ordered Comprehensive Met abolic Panel AM LA BS Lab 04/19/20 04:00 Ordered Magnesium AM LABS Lab 04/19/20 04:00 Ordered Mycobacteria, Cul ture w/Fluor Routi ne Lab 04/13/20 14:57 Results Phosphorus AM LAB S Lab 04/19/20 04:00 Ordered Cytology [PTH] Ro utine Pth 04/13/20 13:12 Received Labs from last 24 hours 04/18/20 04/18/20 04/18/20 16:10 11:21 07:09 WBC RBC Hgb Hct MCV MCH MCHC RDW Plt Count MPV Nucleated RBC % (a uto) Total Counted Absolute Neutrophi ls Segmented Neutroph ils Abs Segm Neuts (Ma n) Band Neutrophils Abs Band Neuts (Ma n) Lymphocytes (Manua l) Monocytes (Manual) Absolute Monocytes Eosinophils (Manua l) Absolute Eosinophi ls Metamyelocytes Nucleated RBCs # Platelet Estimate Sodium Potassium Chloride Carbon Dioxide Anion Gap BUN Creatinine GFR Calculation Glucose POC Glucose 300 227 296 Calculated Osmolal ity Calcium Phosphorus Magnesium Total Bilirubin AST ALT Alkaline Phosphata se Total Protein Albumin Globulin 04/18/20 04/18/20 04/17/20 04:55 04:55 20:49 WBC 17.6 H RBC 3.36 L Hgb 10.6 L Hct 33.6 L MCV 100.0 H MCH 31.5 MCHC 31.5 RDW 14.6 Plt Count 362 MPV 9.2 Nucleated RBC % (a uto) 0 Total Counted 100 Absolute Neutrophi ls 13.9 H Segmented Neutroph ils 69 Abs Segm Neuts (Ma n) 12.1 H Band Neutrophils 10.0 Abs Band Neuts (Ma n) 1.8 H Lymphocytes (Manua l) 10 Monocytes (Manual) 4.0 Absolute Monocytes 0.7 H Eosinophils (Manua l) 2 Absolute Eosinophi ls 0.3 Metamyelocytes 5.0 Nucleated RBCs # 0.0 Platelet Estimate Increased H Sodium 136 Potassium 3.1 L Chloride 98 Carbon Dioxide 18 L Anion Gap 23.1 H BUN 73 H Creatinine 11.1 H* GFR Calculation 3.6 L Glucose 303 H POC Glucose 239 Calculated Osmolal ity 293 Calcium 8.7 Phosphorus 6.9 H Magnesium 2.2 Total Bilirubin 0.4 AST 22 ALT 35 H Alkaline Phosphata se 82 Total Protein 6.2 L Albumin 1.8 L Globulin 4.4 Vitals: Last Vital Signs Temp 97.7 F 04/18/20 16:02 Pulse 66 04/18/20 18:00 Resp 12 04/18/20 18:00 BP 151/77 04/18/20 18:00 Pulse Ox 95 04/18/20 18:00 TS Medications Medications Home Medications carvedilol 25 mg tablet 12.5 mg PO BID 04/02/20 [History Confirmed 04/13/20] clonidine HCl 0.1 mg tablet 0.1 mg PO TID PRN 04/02/20 [History Confirmed 04/13/20] levothyroxine 150 mcg tablet 150 mcg PO DAILY 04/02/20 [History Confirmed 04/13/20] promethazine 25 mg tablet 25 mg PO QID PRN 04/02/20 [History Confirmed 04/13/20] sodium bicarbonate 650 mg tablet 650 mg PO BID 04/02/20 [History Confirmed 04/13/20] torsemide 20 mg tablet 40 mg PO DAILY PRN tab 04/02/20 [History Confirmed 04/13/20] ergocalciferol (vitamin D2) 1,250 mcg PO DAILY 04/13/20 [History Confirmed 04/13/20] insulin NPH and regular human [Novolin 70/30 U-100 Insulin] See Rx Instructions .ROUTE .COMPLEX 04/13/20 [History Confirmed 04/13/20] vit B ubrlnze-O-tclpo ac-zinc [RenaPlex] 1 tab PO DAILY 04/13/20 [History Confirmed 04/13/20] Active Medications Acetaminophen (Tylenol) 650 mg PO Q6H PRN PRN Reason: MILD PAIN Last Admin: 04/18/20 09:44 Dose: 650 mg Documented by: Bisacodyl (Dulcolax) 5 mg PO DAILY PRN PRN Reason: CONSTIPATION Last Admin: 04/17/20 21:15 Dose: 5 mg Documented by: Calcium Acetate (Phoslo) 1,334 mg PO TIDWM COUNTS INCLUDE 234 BEDS AT THE [facility] Last Admin: 04/18/20 17:04 Dose: 1,334 mg Documented by: Carvedilol (Coreg) 12.5 mg PO BID COUNTS INCLUDE 234 BEDS AT THE [facility] Last Admin: 04/18/20 17:04 Dose: 12.5 mg Documented by: Dextrose (D50w) 25 ml IVP ONCE PRN; Protocol PRN Reason: hypoglycemia protocol Dextrose (D50w) 50 ml IVP PRN PRN; Protocol PRN Reason: hypoglycemia protocol Ergocalciferol (Vitamin D2) 50,000 unit PO SuWe@0600 COUNTS INCLUDE 234 BEDS AT THE [facility] Last Admin: 04/15/20 06:53 Dose: 50,000 unit Documented by: Glucagon (Glucagen) 1 mg IM ONCE PRN; Protocol PRN Reason: Adult Acute Hypoglycemia Prot. Heparin Sodium (Beef Lung) (Heparin) 5,000 unit SUBCUT Q12H [facility] Last Admin: 04/18/20 14:10 Dose: 5,000 unit Documented by: Dextrose (D5w) 500 mls @ 100 mls/hr IV ONCE PRN; Protocol PRN Reason: Adult Acute Hypoglycemia Prot Nafcillin Sodium 2,000 mg/ (Sodium Chloride) 50 mls @ 100 mls/hr IV Q4H [facility] Last Infusion: 04/18/20 18:02 Dose: Infused Documented by: Insulin Aspart (Novolog) 0 unit SUBCUT TIDWM [place]; Protocol Last Admin: 04/18/20 17:01 Dose: 10 unit Documented by: Insulin Aspart (Novolog) 0 unit SUBCUT BEDTIME [facility]; Protocol Last Admin: 04/17/20 20:59 Dose: 4 unit Documented by: Insulin Aspart (Novolog 70/30) 25 unit SUBCUT 0800,1800 [facility] Last Admin: 04/18/20 17:03 Dose: 25 unit Documented by: Levothyroxine Sodium (Synthroid) 150 mcg PO DAILY [facility] Last Admin: 04/18/20 09:14 Dose: 150 mcg Documented by: Naloxone HCl (Narcan) 0.1 mg IVP Q2M PRN PRN Reason: RESPIRATORY RATE < 8/MIN Non-Formulary Medication (Vit B Toekzqt-Z-Wcrnm Ac-Zinc [Renaplex]) 1 tab PO DAILY COUNTS INCLUDE 234 BEDS AT THE [facility] Peritoneal Dialysis Solution (Dianeal Low Ca W/4.25% Dex) 2,000 ml INTRAPERIT Q6H [facility] Last Admin: 04/18/20 13:01 Dose: 2,000 ml Documented by: Peritoneal Dialysis Solution (Dianeal Low Ca W/2.5% Dex) 2,000 ml INTRAPERIT Q6H [facility] Last Admin: 04/18/20 16:02 Dose: 2,000 ml Documented by: Promethazine HCl (Phenergan) 25 mg PO QID PRN PRN Reason: Nausea Last Admin: 04/17/20 15:19 Dose: 25 mg Documented by: Torsemide (Demadex) 10 mg PO 0800 [facility] Last Admin: 04/18/20 09:07 Dose: 10 mg Documented by: Discharge Plan Discharge Patient Disposition: Xfer Other Condition: Stable Prescriptions: No Action sodium bicarbonate 650 mg tablet 650 mg PO BID RF: 0 promethazine 25 mg tablet 25 mg PO QID PRN (Reason: Nausea) RF: 0 levothyroxine [Synthroid] 150 mcg tablet 150 mcg PO DAILY RF: 0 clonidine HCl 0.1 mg tablet 0.1 mg PO TID PRN (Reason: Blood Pressure) RF: 0 carvedilol 25 mg tablet 12.5 mg PO BID RF: 0 torsemide 20 mg tablet 40 mg PO DAILY PRN (Reason: Blood Pressure) RF: 0 ergocalciferol (vitamin D2) 1,250 mcg (50,000 unit) Capsule 1,250 mcg PO DAILY RF: 0 RenaPlex 800 mcg- 12.5 mg Tablet 1 tab PO DAILY RF: 0 Novolin 70/30 U-100 Insulin 100 unit/mL (70-30) suspension See Rx Instructions .ROUTE .COMPLEX RF: 0 Discharge Orders: Transfer Out of Facility (Order); Ordered 04/18/20 Ordered By: Althea Larkin Referrals: [facility] [Other] (This is the infusion pharmacy that will be delivering your IV medication to your home. If you have any questions or concerns regarding delivery of your IV medication, please call them at the phone number provided.) [facility] [place]) [Outside] (This is your home health company that will help in teaching you or your family how to administer the IV medication you will be receiving for 6 weeks. ) Karen Bear MD [Primary Care Provider] - Transfer Attestations Time Spent in Transfer Care*: greater than 30 min Specific Discharge Activities: Specific discharge activities: educating and/or supporting family/caregiver, discussing with pcp/other providers and documenting/other paperwork Quality Metrics Clinical Quality Measures: During this hospital stay, did patient experience: None Coding Level of Care Code Acute Ball Winder for g Fwd Diagnoses Infectious endocarditis I33.0 Chronicity: subacute Infective endocarditis organism: bacterial Congestive heart failure I50.32 Heart failure chronicity: chronic Heart failure type: diastolic Hypertension I10 Hypertension type: essential hypertension ESRD (end stage renal disease) N18.6
[2020-04-18 20:59] LABS: Glucose Point of Care 234 mg/dL (70-110)
--- NOTE | 2020-04-18 23:04 | PC.NURSE ---
Report called to MARCIANO Luis at [id number]. Ambulance service notified. Unsure of transport time. Patient aware. Personal belongings packed and ready. PD catheter capped and taped. VSS. No s/s distress noted. Chart copied and forms signed.
== END 2020-04-18 23:54 | disposition short-term general hospital (02) | DRG 871 ==
LOC: ER 12:24 → ICU 13:39
PROVIDERS: Internal Medicine; Internal Medicine Cardiovascular Disease; Internal Medicine Nephrology; Surgery; Admitting Provider Family Medicine; Emergency Provider Family Medicine; PCP Family Medicine; Visit Provider Student in an Organized Health Care Education/Training Program
PROC: (CPT 93312; principal; 2020-04-16 17:00)
PROC: 0DJ08ZZ Inspection of Upper Intestinal Tract, Via Natural or Artificial Opening Endoscopic (ICD-10-PCS; CPT 43235; principal; 2020-04-17 12:00)
PROC: (CPT 93312; 2020-04-17 12:00)
DX: A41.9 Sepsis, unspecified organism (principal); N18.6 End stage renal disease; I33.0 Acute and subacute infective endocarditis; I13.0 Hypertensive heart and chronic kidney disease with heart failure and stage 1 through stage 4 chronic kidney disease, or unspecified chronic kidney disease; I50.32 Chronic diastolic (congestive) heart failure; E87.1 Hypo-osmolality and hyponatremia; E87.2 Acidosis; Z99.2 Dependence on renal dialysis; E11.22 Type 2 diabetes mellitus with diabetic chronic kidney disease; E03.9 Hypothyroidism, unspecified; I89.0 Lymphedema, not elsewhere classified; Z79.4 Long term (current) use of insulin; D63.1 Anemia in chronic kidney disease; Z86.14 Personal history of Methicillin resistant Staphylococcus aureus infection; E78.5 Hyperlipidemia, unspecified; B95.61 Methicillin susceptible Staphylococcus aureus infection as the cause of diseases classified elsewhere
CPT/HCPCS: 12345; 36415; 36416; 36430; 36600; 43235; 71045; 71250; 72126; 72129; 72132; 72146; 72148; 74176; 76705; 76770; 80048; 80051; 80053; 80061; 80202; 80500; 81001; 82009; 82042; 82150; 82310; 82465; 82607; 82728; 82746; 82810; 82945; 82962; 82977; 83540; 83550; 83605; 83615; 83690; 83735; 83970; 83986; 84075; 84100; 84157; 84295; 84315; 84443; 84478; 84484; 84560; 85007; 85014; 85018; 85025; 85045; 85378; 85610; 85651; 86038; 86140; 86431; 86705; 86706; 86709; 86803; 86850; 86870; 86900; 86920; 87040; 87070; 87075; 87077; 87086; 87186; 87205; 87340; 87493; 87506; 87804; 87806; 88112; 88305; 89050; 90935; 93005; 93306; 93312; 93320; 93325; 94664; 96372; 96375; 97110; 97161; 97166; 97530; 97535; 99283; J0330; J0696; J1644; J1815; J2405; J3370; J3475; J3490; J7030; J7050; J7512; P9016; Q0163; Q0169; Q3014; Q9967

== ENCOUNTER 2020-05-06 16:35 | Outpatient (CLI) | payer MEDICARE, MEDICAID, SELFPAY ==
[2020-05-06 17:11] LABS: Basophils # 0.1 10^3/uL (0.0-0.1); Basophils % 0.5 %; Eosinophils # 0.9 10^3/uL (0.0-0.8); Lymphocytes % 10.4 %; Mean Corpuscular HGB Conc 30.7 g/dL (30.0-36.0); Mean Corpuscular Hemoglobin 31.4 pg (28.0-34.0); Mean Corpuscular Volume 102.6 fL (81-99); Mean Platelet Volume 9.6 fL (7.4-10.4); Monocytes # 1.1 10^3/uL (0.2-0.9); Monocytes % 10.8 %; Neutrophils # 6.8 10^3/uL (1.8-7.7); Neutrophils % 68.6 %; Nucleated Red Blood Cells % 0 %; Platelet Count 281 10^3/cmm (130-400); Red Blood Count 1.94 10^6/uL (4.1-5.3); Red Cell Distribution Width 15.9 % (12.1-15.1); White Blood Count 9.9 10^3/uL (4.0-10.0)
[2020-05-06 17:30] LABS: Hemoglobin 6.1 g/dL (11.5-15.3)
[2020-05-06 17:31] LABS: Hematocrit 19.9 % (37.0-47.0)
[2020-05-06 20:21] LABS: Alanine Aminotransferase < 5 U/L (0-33); Albumin Level 2.3 g/dL (3.5-5.2); Alkaline Phosphatase 109 IU/L (35-105); Anion Gap 29.5 (5-19); Aspartate Amino Transferase 17 U/L (0-32); Calcium 7.2 mg/dL (8.5-10.5); Carbon Dioxide 19 mmol/L (22-29); Chloride 84 mmol/L (98-107); Globulin 4.2 g/dL (1.3-4.6); Glomerular Filtration Rate 2.9 mL/min (90-130); Glucose 139 mg/dL (65-115); Osmolality Calculated 269 mOsm/kg (285-295); Potassium 4.5 mmol/L (3.5-5.1); Sodium 128 mmol/L (136-145); Total Bilirubin 0.2 mg/dL (0.15-1.2); Total Protein 6.5 g/dL (6.6-8.7)
[2020-05-06 20:51] LABS: Blood Urea Nitrogen 97 mg/dL (6-20)
== END 2020-05-06 16:36 | disposition home or self-care (01) ==
LOC: LAB 16:39
PROVIDERS: PCP Family Medicine; Visit Provider Family Medicine
DX: I38 Endocarditis, valve unspecified (principal); N18.6 End stage renal disease
CPT/HCPCS: 80053; 85025

== ENCOUNTER 2020-05-07 10:38 | Observation (INO) | payer MEDICARE, MEDICAID, SELFPAY ==
[2020-05-07] VITALS (22 sets, daily range): BP systolic 112–151; BP diastolic 52–74; PULSE 85–103; RESP 13–20; TEMP 36.7–37.4; O2SAT 95–99; BMI 41.6
--- NOTE | 2020-05-07 11:37 | ED_ITS ---
HPI - Recheck/Abnormal Lab/Rx General: Chief Complaint: Recheck/Abnormal Lab/Rx Stated Complaint: LOW BLOOD Time Seen by Provider: 05/07/20 11:05 Source: patient Mode of arrival: ambulatory Limitations: no limitations History of Present Illness: HPI narrative: Patient is a 59-year-old female with a history of end-stage renal failure on peritoneal dialysis at home, she also has a history of diabetes mellitus. She was recently admitted to this facility and then transferred to [facility] in [place] for MSSA bacteremia and possible infective endocarditis. She has been discharged home on cefazolin 500 mg every 12 hours to go on until June 09. Blood was drawn yesterday and she was noted to be anemic and requiring blood transfusion. Hemoglobin was 6.1. She was therefore sent here for transfusion. The patient complains of weakness, dizziness and lightheadedness, and nausea. Review of Systems General: Reports: 10 or more systems reviewed and unremarkable except in HPI and below Const: Denies: fever(s), chills or body aches Eyes: Denies: change in vision or blurry vision ENMT: Denies: throat pain, enlarged tonsils, odynophagia, hoarseness, mouth pain or swelling of lips/tongue Card: Denies: palpitations, irregular heart rhythm, edema or swelling of feet/ankles Resp: Denies: dyspnea, productive cough or non-productive cough GI: Reports: nausea and vomiting : Denies: flank pain, difficulty voiding, dysuria, urinary frequency, urinary urgency or urinary hesitancy Musc: Denies: neck pain, back pain or extremity swelling Skin/Breast: Denies: rash, pruritus or erythema Neuro: Reports: dizziness Endo: Denies: polyuria, polydipsia or tired all the time PFS ED PFSH: Medical History (Updated 05/07/20 @ 15:38 by Dayron Regalado MD, [facility]) Atypical chest pain Congestive heart failure Diabetes Diabetes mellitus type 2, insulin-dependent ESRD (end stage renal disease) On peritoneal dialysis. Followed by Dr. Lora History of congestive heart failure History of MRSA infection Hyperlipidemia Hypertension Hypothyroidism Surgical History History of cholecystectomy History of lumbar surgery Due to epidural abscess in March 2018 Family History Mother Cancer Uterine and breast cancer Father Diabetes Other CAD (coronary artery disease) Social History Smoking and tobacco status: never smoked Alcohol intake: current Alcohol intake frequency: holidays/special occasions only Physical Exam Const: COMMON NORMALS: no acute distress, average body habitus, patient oriented x3, no limitations, healthy appearing, alert and well nourished HENMT: COMMON NORMALS: normocephalic, atraumatic and moist oral mucous membranes HEAD & SCALP: normocephalic and atraumatic Neck/C-Spine: COMMON NORMALS: no meningeal signs and no JVD Resp: COMMON NORMALS: normal respiratory effort, No retractions, No use of accessory muscles, clear to auscultation bilaterally and percussion normal AUSCULTATION: clear to auscultation bilaterally PERCUSSION: percussion normal Cardio: COMMON NORMALS: no JVD, regular rate, regular rhythm, S1 normal heart sound present, S2 normal heart sound present, No gallops present (Cardio), No clicks present (Cardio), No murmurs present (Cardio), No rub (Cardio) and Peripheral pulses 2+ throughout RATE: regular rate RHYTHM: regular rhythm HEART SOUNDS: S1 normal heart sound present and S2 normal heart sound present PERIPHERAL PULSES: Peripheral pulses 2+ throughout GI: COMMON NORMALS: Normal to inspection, nondistended, normoactive bowel sounds present, Soft to palpation, non-tender, No hepatosplenomegaly present, no masses and no bruits PALPATION: Yes Soft to palpation and Yes No hepatosplenomegaly present : COMMON NORMALS: Yes no CVA tenderness BLADDER/KIDNEY EXAM: Yes no CVA tenderness Back/Pelvis: COMMON NORMALS: no CVA tenderness Extremity: COMMON NORMALS: normal to inspection, full ROM, capillary refill normal and no calf tenderness GENERAL: Yes edema (Chronic lymphedema.) Neuro: COMMON NORMALS: patient oriented x3 SENSORIUM/ORIENTATION: Yes alert MENINGEAL SIGNS: Yes no meningeal signs Skin: COMMON NORMALS: no rashes or lesions noted, no wounds, turgor normal, no jaundice, no petechiae and no mottling GENERAL SKIN EXAM: no rashes or lesions noted and turgor normal Course Reevaluation(s): Reevaluation #1: Discussed her lab findings with her. Explained that she needed 2 units of blood transfusion. Explained her creatinine values, she said it has been high since she started antibiotics and this is not unusual. We will admit her on an outpatient bed for blood transfusion and she will be discharged after that. She voiced understanding and is in agreement with the plan. Time: 15:00 Vital Signs: Vital signs: Vital Signs Temperature 98.3 F 05/07/20 15:25 Pulse Rate 96 05/07/20 15:25 Respiratory Rate 14 05/07/20 15:25 Blood Pressure 140/62 05/07/20 15:25 Pulse Oximetry 96 05/07/20 15:25 MDM - Recheck/Abnormal Lab/Rx MDM Narrative: Medical decision making narrative: 59-year-old female with end- stage renal failure on peritoneal dialysis at home, and who was recently discharged after admission here and at [place] for infective endocarditis. She is currently on Ancef 500 mg every 12 with end date on 06/01/2020. She is admitted to an outpatient bed for transfusion of 2 units of packed red blood cells and will be discharged home after that. The GI Lab was uncomfortable transfusing this patient and this is why she is admitted to the hospital. Lab Data: Labs: Lab Results 05/07/20 05/07/20 05/07/20 Range/Units 11:57 12:43 12:43 WBC 9.0 (4.0-10.0) 10^3/ uL RBC 1.88 L (4.1-5.3) 10^6/u L Hgb 6.3 L* (11.5-15.3) g/dL Hct 19.4 L* (37.0-47.0) % MCV 103.2 H (81-99) fL MCH 33.5 (28.0-34.0) pg MCHC 32.5 (30.0-36.0) g/dL RDW 16.1 H (12.1-15.1) % Plt Count 354 (130-400) 10^3/c mm MPV 9.7 (7.4-10.4) fL Neut % (Auto) 74.7 % Lymph % (Auto) 7.4 % [place] % (Auto) 11.3 % Eos % (Auto) 5.1 % Baso % (Auto) 0.6 % Neut # (Auto) 6.7 (1.8-7.7) 10^3/u L Lymph # (Auto) 0.7 L (0.8-4.8) 10^3/u L [place] # (Auto) 1.0 H (0.2-0.9) 10^3/u L Eos # (Auto) 0.5 (0.0-0.8) 10^3/u L Baso # (Auto) 0.1 (0.0-0.1) 10^3/u L Nucleated RBC % (a uto) 0 % Nucleated RBCs # 0.0 /100WBC Sodium 127 L (136-145) mmol/L Potassium 4.9 (3.5-5.1) mmol/L Chloride 83 L (98-107) mmol/L Carbon Dioxide 21 L (22-29) mmol/L Anion Gap 27.9 H (5-19) BUN 97 H* (6-20) mg/dL Creatinine 13.4 H* (0.5-0.9) mg/dL GFR Calculation 2.9 L (90-130) mL/min Glucose 170 H (65-115) mg/dL Calculated Osmolal ity 269 L (285-295) mOsm/k g Calcium 7.6 L (8.5-10.5) mg/dL Total Bilirubin 0.2 (0.15-1.2) mg/dL AST 17 (0-32) U/L ALT < 5 (0-33) U/L Alkaline Phosphata se 107 H (35-105) IU/L Total Protein 7.5 (6.6-8.7) g/dL Albumin 2.2 L (3.5-5.2) g/dL Globulin 5.3 H (1.3-4.6) g/dL Blood Type A Positive Rho(D) Type Positive Antibody Screen Negative Crossmatch See Detail Discharge Plan Discharge Patient Disposition: Placed in Observation Admit Provider: Driss Ann Clinical Impression: Diabetes, Hypertension, ESRD (end stage renal disease) Anemia Qualifiers: Chronic kidney disease stage: on chronic dialysis Condition: Stable Interventions: ED Discharge Assessment Last Done: 05/07/20 15:25 ED Charges Last Done: 05/07/20 15:25 Discharge Date/Time: 05/07/20 15:29 Coding Level of Care Code ED Substation Supervisor for Chg Fwd Exam Comprehensive
[2020-05-07] MEDS: ondansetron 2 mg/ML SDV 2 mL 4 MG IVP (12:00)
[2020-05-07 12:17] LABS: Basophils # 0.1 10^3/uL (0.0-0.1); Basophils % 0.6 %; Eosinophils # 0.5 10^3/uL (0.0-0.8); Eosinophils % 5.1 %; Lymphocytes # 0.7 10^3/uL (0.8-4.8); Lymphocytes % 7.4 %; Mean Corpuscular HGB Conc 32.5 g/dL (30.0-36.0); Mean Corpuscular Hemoglobin 33.5 pg (28.0-34.0); Mean Corpuscular Volume 103.2 fL (81-99); Mean Platelet Volume 9.7 fL (7.4-10.4); Monocytes % 11.3 %; Neutrophils # 6.7 10^3/uL (1.8-7.7); Neutrophils % 74.7 %; Nucleated Red Blood Cells % 0 %; Platelet Count 354 10^3/cmm (130-400); Red Blood Count 1.88 10^6/uL (4.1-5.3); Red Cell Distribution Width 16.1 % (12.1-15.1)
[2020-05-07 12:19] LABS: Hematocrit 19.4 % (37.0-47.0); Hemoglobin 6.3 g/dL (11.5-15.3)
[2020-05-07 13:18] LABS: Alanine Aminotransferase < 5 U/L (0-33); Albumin Level 2.2 g/dL (3.5-5.2); Alkaline Phosphatase 107 IU/L (35-105); Anion Gap 27.9 (5-19); Aspartate Amino Transferase 17 U/L (0-32); Calcium 7.6 mg/dL (8.5-10.5); Carbon Dioxide 21 mmol/L (22-29); Chloride 83 mmol/L (98-107); Globulin 5.3 g/dL (1.3-4.6); Glomerular Filtration Rate 2.9 mL/min (90-130); Glucose 170 mg/dL (65-115); Osmolality Calculated 269 mOsm/kg (285-295); Potassium 4.9 mmol/L (3.5-5.1); Sodium 127 mmol/L (136-145); Total Bilirubin 0.2 mg/dL (0.15-1.2); Total Protein 7.5 g/dL (6.6-8.7)
[2020-05-07 13:35] LABS: Blood Urea Nitrogen 97 mg/dL (6-20)
[2020-05-07] MEDS: sodium chloride 0.9% 500 ML IV (14:00)
[2020-05-07] MEDS: promethazine 25 mg Tablet 12.5 MG PO (16:27)
--- NOTE | 2020-05-07 20:00 | PC.NURSE ---
Pt. blood transfusions complete, vitals stable. Pt. IV removed and patient assisted into wheelchair and taken to private vehicle with driving. All personal belongings with patient.
== END 2020-05-07 20:00 | disposition home or self-care (01) ==
LOC: ER 13:45 → MEDSURG 15:23
PROVIDERS: Admitting Provider Internal Medicine; Emergency Provider Family Medicine; PCP Family Medicine; Visit Provider Internal Medicine
DX: D64.9 Anemia, unspecified (principal)
CPT/HCPCS: 12345; 36430; 80053; 85025; 86850; 86900; 86920; 96365; 96367; 96375; 99283; 99285; G0378; J0690; J2405; J7040; P9016; Q0169

== ENCOUNTER 2020-05-11 15:11 | Inpatient (IN) | payer MEDICARE, MEDICAID, SELFPAY ==
[2020-05-11 15:23] VITALS: BP 148/73; PULSE 105; RESP 20; TEMP 37.7; O2SAT 98; BMI 41.0
--- NOTE | 2020-05-11 15:47 | ED_ITS ---
HPI - General Adult General: Chief complaint: General Medical Stated complaint: SWOLLEN LEFT FOOT Time Seen by Provider: 05/11/20 15:32 History of Present Illness: HPI narrative: 59-year-old female comes in complaining of a foot infection. Patient was recently infected with MRSA she was here at our hospital initially thought she had a endocarditis she had MRSA blood positive blood cultures that were positive there is also concern for spontaneous bacterial peritonitis because of her peritoneal dialysis. She was admitted here treated with Rocephin initially and then changed to nafcillin ultimately was transferred to [place]. She was seen back on 625 for anemia as noted in the chart from the ER visit such as being admitted to [facility] but then she was it did not look like she actually got admitted that day I do not find an H&P. She currently does have a PICC line she continues to receive to receive CFIDS Mitchell for her endocarditis. Now she is complaining of some swelling bilaterally in her feet she has chronic lymphedema she states her left foot is beginning to become very tender and swollen and mildly reddened she felt this was present when she was at [place] earlier this month but they kept her on the current antibiotics they did not change any of the antibiotics. She denies having any temps at home she does have some nausea and vomiting and she had chills when she first arrived here. Associated symptoms: Deny chest pain, dyspnea, malaise, nausea, rash or vomiting Review of Systems Const: Denies: fever(s), chills, body aches, change in appetite, fatigue or malaise ENMT: Denies: throat pain, ear or mastoid pain, nasal discharge or nasal congestion Card: Denies: chest pain, edema, dyspnea on exertion or orthopnea Resp: Denies: dyspnea, productive cough or non-productive cough GI: Denies: abdominal pain, nausea, vomiting, hematemesis, coffee ground emesis, diarrhea, constipation, bloating, hematochezia or melena : Denies: flank pain, difficulty voiding, dysuria, urinary frequency or urinary urgency Skin/Breast: Denies: rash or pruritus [facility] ED PFSH: Medical History Atypical chest pain Congestive heart failure Diabetes Diabetes mellitus type 2, insulin-dependent ESRD (end stage renal disease) On peritoneal dialysis. Followed by Dr. Lora History of congestive heart failure History of MRSA infection Hyperlipidemia Hypertension Hypothyroidism Surgical History History of cholecystectomy History of lumbar surgery Due to epidural abscess in March 2018 Family History Mother Cancer Uterine and breast cancer Father Diabetes Other CAD (coronary artery disease) Social History Smoking and tobacco status: never smoked Alcohol intake: current Alcohol intake frequency: holidays/special occasions only Physical Exam Const: COMMON NORMALS: no acute distress GENERAL APPEARANCE: cooperative and comfortable ORIENTATION/CONSCIOUSNESS: Yes awake, Yes oriented to person, Yes oriented to place and Yes oriented to time Eye: COMMON NORMALS: Equal, round and reactive pupils present, EOMs intact bilaterally, conjunctivae normal and no scleral icterus CONJUNCTIVA: Yes conjunctivae normal PUPIL: Yes Equal, round and reactive pupils present Neck/C-Spine: COMMON NORMALS: full ROM, no lymphadenopathy, supple and no JVD Lymph: LYMPHATIC: no lymphadenopathy noted and no lymphedema noted Resp: COMMON NORMALS: normal respiratory effort, No retractions, No use of accessory muscles and clear to auscultation bilaterally AUSCULTATION: clear to auscultation bilaterally Cardio: COMMON NORMALS: no JVD, regular rate, regular rhythm and No murmurs present (Cardio) RATE: regular rate RHYTHM: regular rhythm GI: COMMON NORMALS: Soft to palpation and No hepatosplenomegaly present AUSCULTATION: Yes normoactive bowel sounds PALPATION: Yes Soft to palpation, No Tenderness to palpation present (GI), No Guarding due to palpation present (GI) and Yes No hepatosplenomegaly present Extremity: NARRATIVE EXTREMITY EXAM: 3+ pedal edema with mild redness around t he left foot and ankle and some maceration at the heel but no full-thickness breakdown of the skin on the left foot. There is no erythema on the right foot, but she does have 3+ edema of the right foot. Neuro: SENSORIUM/ORIENTATION: Yes oriented to person, Yes oriented to place and Yes oriented to time Skin: COMMON NORMALS: no rashes or lesions noted GENERAL SKIN EXAM: no rashes or lesions noted Course Vital Signs: Vital signs: Vital Signs Temperature 97.9 F 05/14/20 13:45 Pulse Rate 86 05/14/20 13:45 Respiratory Rate 19 H 05/14/20 13:45 Blood Pressure 147/75 05/14/20 13:45 Pulse Oximetry 96 05/14/20 13:45 MDM - General Adult MDM Narrative: Medical decision making narrative: Initially plan to discharge home with follow-up with the wound care clinic she is on outpatient antibiotics however her troponin came back over 300 her baseline troponin with renal disease is a little over 100 she is not having any chest pain I cannot really explain her to elevated troponin she will not be able to get a CTA of the chest she not really having any shortness of breath discussed discussed with Dr. Buchanan will go ahead and admit her and evaluate her for this elevated troponin she will also need to have nephrology consulted continue her antibiotics. She may need wound care referral as well. Lab Data: Labs: Lab Results 05/11/20 05/11/20 05/11/20 Range/Units 16:28 16:28 16:28 WBC 10.0 (4.0-10.0) 10^3/ uL RBC 2.23 L (4.1-5.3) 10^6/u L Hgb 7.1 L (11.5-15.3) g/dL Hct 22.5 L (37.0-47.0) % MCV 100.9 H (81-99) fL MCH 31.8 (28.0-34.0) pg MCHC 31.6 (30.0-36.0) g/dL RDW 15.4 H (12.1-15.1) % Plt Count 410 H (130-400) 10^3/c mm MPV 8.6 (7.4-10.4) fL Neut % (Auto) 70.6 % Lymph % (Auto) 7.1 % Dodge % (Auto) 13.1 % Eos % (Auto) 5.4 % Baso % (Auto) 0.4 % Neut # (Auto) 7.0 (1.8-7.7) 10^3/u L Lymph # (Auto) 0.7 L (0.8-4.8) 10^3/u L Dodge # (Auto) 1.3 H (0.2-0.9) 10^3/u L Eos # (Auto) 0.5 (0.0-0.8) 10^3/u L Baso # (Auto) 0.0 (0.0-0.1) 10^3/u L Nucleated RBC % (a uto) 0 % Nucleated RBCs # 0.0 /100WBC Sodium 129 L (136-145) mmol/L Potassium 5.4 H (3.5-5.1) mmol/L Chloride 88 L (98-107) mmol/L Carbon Dioxide 20 L (22-29) mmol/L Anion Gap 26.4 H (5-19) BUN 110 H* (6-20) mg/dL Creatinine 13.1 H* (0.5-0.9) mg/dL GFR Calculation 2.9 L (90-130) mL/min Glucose 168 H (65-115) mg/dL Calculated Osmolal ity 273 L (285-295) mOsm/k g Lactate 0.8 (0.5-2.2) mmol/L Calcium 7.4 L (8.5-10.5) mg/dL Total Bilirubin 0.2 (0.15-1.2) mg/dL AST 18 (0-32) U/L ALT < 5 (0-33) U/L Alkaline Phosphata se 111 H (35-105) IU/L Troponin T Baselin e (0-10) ng/L Total Protein 7.4 (6.6-8.7) g/dL Albumin 2.2 L (3.5-5.2) g/dL Globulin 5.2 H (1.3-4.6) g/dL Serum Ketones (Negative) 05/11/20 05/11/20 Range/Units 16:28 16:28 WBC (4.0-10.0) 10^3/ uL RBC (4.1-5.3) 10^6/u L Hgb (11.5-15.3) g/dL Hct (37.0-47.0) % MCV (81-99) fL MCH (28.0-34.0) pg MCHC (30.0-36.0) g/dL RDW (12.1-15.1) % Plt Count (130-400) 10^3/c mm MPV (7.4-10.4) fL Neut % (Auto) % Lymph % (Auto) % Dodge % (Auto) % Eos % (Auto) % Baso % (Auto) % Neut # (Auto) (1.8-7.7) 10^3/u L Lymph # (Auto) (0.8-4.8) 10^3/u L Dodge # (Auto) (0.2-0.9) 10^3/u L Eos # (Auto) (0.0-0.8) 10^3/u L Baso # (Auto) (0.0-0.1) 10^3/u L Nucleated RBC % (a uto) % Nucleated RBCs # /100WBC Sodium (136-145) mmol/L Potassium (3.5-5.1) mmol/L Chloride (98-107) mmol/L Carbon Dioxide (22-29) mmol/L Anion Gap (5-19) BUN (6-20) mg/dL Creatinine (0.5-0.9) mg/dL GFR Calculation (90-130) mL/min Glucose (65-115) mg/dL Calculated Osmolal ity (285-295) mOsm/k g Lactate (0.5-2.2) mmol/L Calcium (8.5-10.5) mg/dL Total Bilirubin (0.15-1.2) mg/dL AST (0-32) U/L ALT (0-33) U/L Alkaline Phosphata se (35-105) IU/L Troponin T Baselin e 361 H* (0-10) ng/L Total Protein (6.6-8.7) g/dL Albumin (3.5-5.2) g/dL Globulin (1.3-4.6) g/dL Serum Ketones Negative (Negative) Discharge Plan Discharge Patient Disposition: Admitted As Inpatient Admit Provider: Angel Baez Clinical Impression: Elevated troponin I level, ESRD (end stage renal disease), Peritoneal dialysis catheter in place, Bacteremia due to Staphylococcus, Aortic valve endocarditis, Lymphedema of both lower extremities, Diabetes, Anemia Condition: Stable Discharge Orders: Discharge Order (Routine); Ordered 05/11/20 Ordered By: Shelton Saunders Referrals: [facility] [Other] (This is the company that provides your IV medication. If you have any questions regarding delivery or issues with your IV medication, you may call them at the number provided.) [facility] [Outside] (This is your home health company.) WOUND CARE CLINIC, [Staff Physician] - 05/19/20 1:00 pm (You have an appointment with Dr. Camacho at the [facility] [place] at [address] [place] [address].) Karen Bear MD [Primary Care Provider] - Discharge Diet: Usual diet Discharge Activity: Limit activity as instructed Additional Instructions: Case management will call with referral to the wound care clinic. Interventions: ED Discharge Assessment Last Done: 05/11/20 18:32 ED Charges Last Done: 05/11/20 18:32 Discharge Date/Time: 05/11/20 18:46 Coding Level of Care Code ED Medical Practice Administrator for Chg Fwd Exam Comprehensive
--- NOTE | 2020-05-11 15:59 | ECG_ITS ---
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 Measurements Intervals [place] Rate: 104 P: 55 [place]: 182 QRS: -10 QRSD: 98 T: 64 QT: 341 QTc: 450 Interpretive Statements SINUS TACHYCARDIA POSSIBLE LEFT ATRIAL ENLARGEMENT [-0.1mV P WAVE IN V1/V2] POSSIBLE LEFT VENTRICULAR HYPERTROPHY [VOLTAGE CRITERIA PLUS LAE OR QRS WIDENING] Compared to ECG 04/17/2020 06:59:02 Sinus rhythm no longer present Intraventricular conduction delay no longer present Prolonged QT interval no longer present Electronically Signed On 05-11-2020 16:55:25 CDT by Abdiel Harmon M.D. [id number]
--- NOTE | 2020-05-11 15:59 | XRR_ITS ---
PROCEDURE INFORMATION: Exam: XR Chest, 1 View Exam date and time: 05/11/2020 4:15 PM Age: 59 years old Clinical indication: Cough and dyspnea; Additional info: Dyspnea/cough TECHNIQUE: Imaging protocol: XR of the chest Views: 1 view. COMPARISON: CR XR chest 1V portable [id number] 04/13/2020 11:02 AM FINDINGS: Tubes, catheters and devices: There is a right IJ central line with tip in the superior vena cava. Lungs: There is shallow inspiration with bibasilar linear atelectasis. The lungs are otherwise clear. No airspace consolidation. Pleural space: Unremarkable. No pleural effusion. No pneumothorax. Heart/Mediastinum: The heart is enlarged. Bones/joints: No acute abnormality. XR/XR chest 1V portable [id number] IMPRESSION: Mild atelectasis. The lungs are otherwise clear.
[2020-05-11 16:38] LABS: Basophils % 0.4 %; Eosinophils # 0.5 10^3/uL (0.0-0.8); Eosinophils % 5.4 %; Hematocrit 22.5 % (37.0-47.0); Hemoglobin 7.1 g/dL (11.5-15.3); Lymphocytes # 0.7 10^3/uL (0.8-4.8); Lymphocytes % 7.1 %; Mean Corpuscular HGB Conc 31.6 g/dL (30.0-36.0); Mean Corpuscular Hemoglobin 31.8 pg (28.0-34.0); Mean Corpuscular Volume 100.9 fL (81-99); Mean Platelet Volume 8.6 fL (7.4-10.4); Monocytes # 1.3 10^3/uL (0.2-0.9); Monocytes % 13.1 %; Neutrophils % 70.6 %; Nucleated Red Blood Cells % 0 %; Platelet Count 410 10^3/cmm (130-400); Red Blood Count 2.23 10^6/uL (4.1-5.3); Red Cell Distribution Width 15.4 % (12.1-15.1)
[2020-05-11 16:50] LABS: Lactate (Lactic Acid level) 0.8 mmol/L (0.5-2.2)
--- NOTE | 2020-05-11 17:00 | USCV_ITS ---
Shaw, Susan Age: 59 Gender: F : 1960 Exam Date: 05/11/2020 17:13 Ordering Phys: Shelton Saunders DO Technologist: Lula Brown [place]am Location[place] [facility] [place] Indication: SWELLING HISTORY: Lower extremity swelling. PROCEDURES: Venous duplex imaging was performed in bilateral lower extremities. The following venous structures were evaluated: common femoral vein, profunda vein, proximal portion of the greater saphenous vein, superficial femoral vein, and the popliteal vein. In addition, the posterior tibial and peroneal trunk were evaluated. Serial compression, augmentation maneuvers, and spectral Doppler flow evaluation were performed. FINDINGS: Normal 2-D Doppler and augmentation and compressibility throughout the lower extremity venous structures. Additional imaging through the proximal calf veins also reveals no thrombus. Limited evaluation of the greater saphenous vein is patent with no thrombus.. CONCLUSIONS No evidence of right lower extremity DVT. No evidence of left lower extremity DVT. All [place] MD (Electronically Signed) Final Date: 12 May 2020 16:39 S
[2020-05-11 17:01] LABS: Alanine Aminotransferase < 5 U/L (0-33); Albumin Level 2.2 g/dL (3.5-5.2); Alkaline Phosphatase 111 IU/L (35-105); Anion Gap 26.4 (5-19); Aspartate Amino Transferase 18 U/L (0-32); Calcium 7.4 mg/dL (8.5-10.5); Carbon Dioxide 20 mmol/L (22-29); Chloride 88 mmol/L (98-107); Globulin 5.2 g/dL (1.3-4.6); Glomerular Filtration Rate 2.9 mL/min (90-130); Glucose 168 mg/dL (65-115); Ketone (Acetest) Serum Negative (Negative); Osmolality Calculated 273 mOsm/kg (285-295); Potassium 5.4 mmol/L (3.5-5.1); Sodium 129 mmol/L (136-145); Total Bilirubin 0.2 mg/dL (0.15-1.2); Total Protein 7.4 g/dL (6.6-8.7)
[2020-05-11 17:33] LABS: Blood Urea Nitrogen 110 mg/dL (6-20)
[2020-05-11 17:34] LABS: Troponin(5th) Baseline 361 ng/L (0-10)
--- NOTE | 2020-05-11 18:00 | ECG_ITS ---
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 Measurements Intervals [place] Rate: 107 P: 51 [place]: 171 QRS: 1 QRSD: 100 T: 68 QT: 333 QTc: 446 Interpretive Statements SINUS TACHYCARDIA POSSIBLE LEFT ATRIAL ENLARGEMENT [-0.1mV P WAVE IN V1/V2] POSSIBLE LEFT VENTRICULAR HYPERTROPHY [VOLTAGE CRITERIA PLUS LAE OR QRS WIDENING] NONSPECIFIC T-WAVE ABNORMALITY Compared to ECG 05/11/2020 16:38:26 T-wave abnormality now present Electronically Signed On 05-12-2020 19:33:39 CDT by Ramone Seay M.D. [id number]
[2020-05-11] MEDS: LORazepam 2 mg/mL INJ 1 mL IVP (18:15)
[2020-05-11 18:32] VITALS: BP 121/70; PULSE 105; RESP 16; O2SAT 96
[2020-05-11 19:00] VITALS: BP 140/71; PULSE 98; RESP 16; O2SAT 98
--- NOTE | 2020-05-11 19:00 | PC.NURSE ---
Pt arrived via stretcher from ED with c/o elevated troponin and bilateral foot pain. Pt FONSECA x 4. VSS. NAD. Pt has PICC line to right neck upon admission. Also has an excoriated bottom with a couple small spots that looked to be healing. Left heel is soft and boggy and red. Also left leg is red and warm to the touch. Pt oriented to room and call light.
--- NOTE | 2020-05-11 19:20 | P.HP_ITS ---
Providers/Chief Complaint Admitting Physician: Angel Baez MD Primary Care Provider: Karen Bear MD Chief Complaint: SWOLLEN LEFT FOOT History of Present Illness Alesia Shaw is a 59 year old female who carries history of end-stage renal disease on peritoneal dialysis, diastolic congestive heart failure, diabetes hypothyroidism history of epidural abscess sepsis from infective endocarditis, aortic valve vegetation blood culture grew MSSA, was transferred to [facility] for further work-up, she was discharged from the hospital on IV cefazolin regimen coming in today for worsening left leg pain. Patient is stating that her assist her with peritoneal dialysis and IV antibiotics. She required 2 units of PRBC few days back. She has not noticed any bright bleed per rectum or dark-colored stools, she is denying hemoptysis or hematemesis. She has not been on anticoagulants. For last few days she has been noticing pain in her left leg, today it has gotten worse, her left foot looks more swollen and red, she did not notice any purulent drainage, she is not able to ambulate because of pain and increased swelling. Visiting nurse today at home noted high temperature, patient is not sure whether it was 100.9 or 109F. She is denying chills, but is endorsing nausea, one episode of vomiting and 2-3 liquidy bowel movements today. Diagnosis in the ER revealed anemia hemoglobin 7.1, low-grade temperature, tachycardia, Dopplers of lower extremity did not reveal DVT By the time I saw her she was in room 107, heart rate was persistently high 10 1-1 04, sinus tachycardia patient was chest pain-free no shortness of breath, he is endorsing sleeping in a recliner Her left foot has hyperemia, I have requested CT of lower extremity, did not see any purulent drainage, started Keflex For symptomatic anemia hemoglobin 7.1 and recent infective endocarditis I would transfuse her with 1 unit of PRBC Review of Systems Const: Reports: fever(s), body aches and fatigue; Denies: chills Eyes: Denies: change in vision ENMT: Denies: throat pain Card: Reports: swelling of feet/ankles, dyspnea on exertion and orthopnea; Denies: chest pain or palpitations Resp: Reports: dyspnea; Denies: productive cough or non-productive cough GI: Reports: abdominal pain, nausea, vomiting and diarrhea : Denies: flank pain Musc: Reports: extremity swelling, joint pain, joint redness and joint warmth Skin/Breast: Reports: erythema, skin tenderness and new lesions Neuro: Denies: headache(s) Psych: Reports: depression Endo: Denies: polyuria Jimmy/Lymph: Denies: easy bruising All/Imm: Denies: urticaria Medications/Allergies Home Medications Medication Instructions Recorded Confirmed Last Taken Type levothyroxine 150 mcg tablet 150 mcg PO DAILY 04/02/20 05/11/20 05/11/20 History ergocalciferol (vitamin D2) 1,250 mcg PO DAILY 04/13/20 05/11/20 05/10/20 History insulin NPH and regular human See Rx Instructions .ROUTE .COMPLEX 04/13/20 05/11/20 05/06/20 History [Novolin 70/30 U-100 Insulin] vit B fycxinm-E-llqih ac-zinc 1 tab PO DAILY 04/13/20 05/11/20 05/11/20 History [RenaPlex] cefazolin 1 g IM Q12H 05/07/20 05/11/20 05/11/20 History gentamicin 1 applic TOPICAL TID 05/07/20 05/11/20 05/11/20 History hydrocodone-acetaminophen 1 tab PO Q6H PRN #30 tab 05/11/20 Unknown Rx Allergies Allergy/AdvReac Type Severity Reaction Status Date / Time codeine Allergy Unknown Verified 05/11/20 15:27 Iodinated Contrast Media Allergy ALGY-Hives Verified 05/11/20 15:27 insulin detemir AdvReac Unknown Verified 05/11/20 15:27 [From Levemir U-100 Insulin] insulin glargine AdvReac Unknown Verified 05/11/20 15:27 [From Lantus U-100 Insulin] PFSH Acute PFSH: Medical History Atypical chest pain Congestive heart failure Diabetes Diabetes mellitus type 2, insulin-dependent ESRD (end stage renal disease) On peritoneal dialysis. Followed by Dr. Lora History of congestive heart failure History of MRSA infection Hyperlipidemia Hypertension Hypothyroidism Surgical History History of cholecystectomy History of lumbar surgery Due to epidural abscess in March 2018 Family History Mother Cancer Uterine and breast cancer Father Diabetes Other CAD (coronary artery disease) Social History Smoking and tobacco status: never smoked Alcohol intake: current Alcohol intake frequency: holidays/special occasions only Vitals/I&O/Wt Last Vital Signs Temp 99.8 F H 05/11/20 15:23 Pulse 105 H 05/11/20 18:32 Resp 16 05/11/20 18:32 BP 121/70 05/11/20 18:32 Pulse Ox 96 05/11/20 18:32 Weight last 48 hrs Weight 117.027 kg Physical Exam Narrative: EXAM NARRATIVE: Head to toe examination Obese obese female sitting comfortably in her bed Saturating well on room air, Sinus tachycardia heart rate 104 Blood pressure 140s systolic No active chest pain or shortness of breath S1, S2 I do not hear any murmur Abdomen soft nontender, peritoneal dialysis catheter without any signs of drainage or signs of abdominal wall infection She has pressure stage I ulcer on her back on admission, Left lower extremity hyperemia without any purulent drainage however I see some skin breakdown at plantar side of the foot Dorsalis pedis pulse palpable bilaterally Profuse pitting edema Awake alert oriented x3 GCS 15 EOMI, PERRLA Neurological nonfocal exam Lungs are clear to auscultation Data : 05/11/20 16:28 05/11/20 16:28 Micro: Microbiology 05/11/20 16:30 Blood Culture - Preliminary Blood SPECIMEN COLLECTED 05/11/20 16:28 Blood Culture - Preliminary Blood SPECIMEN COLLECTED A&P Assessment and plan (1) Cellulitis: Status: Acute (2) Aortic valve endocarditis: Status: Acute (3) Lymphedema of both lower extremities: Status: Acute (4) Anemia: Status: Acute (5) History of congestive heart failure: Status: Acute (6) Peritoneal dialysis catheter in place: Status: Acute (7) ESRD (end stage renal disease): Status: Acute (8) Diabetes: Status: Acute (9) Atypical chest pain: Status: Acute Additional A&P Information nonpurulent cellulitis of left extremity without sepsis No DVT as per venous Doppler report from the ER, official report is pending No leukocytosis, I would start her on Bactrim for MRSA coverage and continue cefazolin for her MSSA endocarditis cefazolin would adequately cover for nonpurulent cellulitis, Bactrim would co ary for MRSA Blood cultures obtained in the ER Currently she is afebrile She is not hypoxic [place] aortic valve endocarditis Currently on cefazolin, her last cefazolin dose is on May 02 Blood cultures taken, I do not hear any systolic murmur on pericardial auscultation Would not repeat echo at this point Abnormal troponin Is chest pain-free, negative delta troponin, I believe this is secondary to chronic kidney disease, type II OK Serial troponin and EKG Monitoring in CSU Acute on chronic macrocytic anemia She recently received 2 units of PRBC Considering her recent endocarditis history I will give her another unit of PRBC to keep her hemoglobin at 8 End-stage renal disease peritoneal dialysis dependent Dr. Vazquez consulted and notified Full code Distant carb diet/renal diet Would avoid DVT prophylaxis because of active anemia, will obtain VQ scan in the morning as well to rule out PE for persistent sinus tachycardia, I am going to give her 500 normal saline bolus to see fluid responsiveness Attestations Medical Necessity Statement*: Anticipating stay in the hospital cross more shakira n 2 midnight currently need blood transfusion and antibiotics for nonpurulent cellulitis with underlying multiple comorbid condition Time Spent in Patient Care: (>than 50% of time spent in counselling and/or direct pt care on unit) . 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
[2020-05-11 19:31] VITALS: BP 140/71; PULSE 101; RESP 17; O2SAT 98
--- NOTE | 2020-05-11 20:06 | CTR_ITS ---
PROCEDURE INFORMATION: Exam: CT Left Lower Extremity Without Contrast; Lower Leg Exam date and time: 05/11/2020 9:26 PM Age: 59 years old Clinical indication: Cellulitis; Lower leg; Left TECHNIQUE: Imaging protocol: CT of the Left lower extremity without contrast was performed. Exam focused on the lower leg. Radiation optimization: All CT scans at this facility use at least one of these dose optimization techniques: automated exposure control; mA and/or kV adjustment per patient size (includes targeted exams where dose is matched to clinical indication); or iterative reconstruction. COMPARISON: No relevant prior studies available. RADIATION DOSE METRICS: Total DLP (mGy-cm): 1140.05 FINDINGS: Bones/joints: There is a very small knee joint effusion. There is extensive debris deformity and destruction in the hindfoot and ankle. There is extensive comminuted fracture deformity of the distal fibula and the calcaneus. There is some destruction and nondisplaced fracture through the neck of the talus. The Lisfranc joint alignment is intact. There is some bony remodeling of the medial malleolus with chronic avulsion fracture fragments. There is debris in the ankle joint. There is extensive calcific debris lateral to the calcaneal fracture and distal fibula. Note is made that overall the bone density is appropriate which would be more typical for a Charcot type deformity rather than osteomyelitis. Soft tissues: There is edema in the subcutaneous fat and skin of ankle, hand foot and less prominently the the lower leg. No peripherally enhancing fluid collection or abscess. There is no gas in the muscles or soft tissues. The muscles are atrophic. No intramuscular fluid collection. No foreign body. There is abundant soft tissue thickening/edema and fluid surrounding the ankle and hindfoot especially adjacent to the destruction of the calcaneus, talus and fibula. There arm vascular calcifications. CT/CT lower leg LT wo con* [id number] IMPRESSION: 1. No peripherally enhancing fluid collection or abscess. No intramuscular fluid collection. There is diffuse subcutaneous and soft tissue edema that may reflect cellulitis, lymphedema or venous stasis. Some of this is probable reactive edema due to the extensive deformity in the ankle and hindfoot. 2. Extensive destruction, deformity and debris with comminuted fractures of the calcaneus, distal fibula and talus. This appearance is suspected be Charcot deformity given the extent of the destruction and deformity. Superimposed osteomyelitis cannot be excluded given the abundant soft tissue edema immediately adjacent to the fracture deformities in the hindfoot. Radiation Dose CTDIVOL = (mGy): DLP = 1140.05 (mGy-cm)
[2020-05-11 20:38] LABS: Glucose Point of Care 163 mg/dL (70-110)
--- NOTE | 2020-05-11 21:47 | PC.NURSE ---
Needing clarification of Ancef order. Was ordered as an IV push. Informed Dr Hooks and received ok to change to IV.
--- NOTE | 2020-05-11 21:57 | PC.NURSE ---
PICC line in place upon admission to right neck. Patent, CDI.
--- NOTE | 2020-05-11 22:00 | ECG_ITS ---
[facility] ED Test Date: 2020-05-11 Pat Name: Alesia hSaw Department: Room: 107 Gender: Female Partner Marketing Manager: SALIMA GUZMÁNB: 1960 Requested By: Shelton Junior Order Number: [id number] Reading MD: Ramone Seay M.D. Measurements Intervals [place] Rate: 93 P: 47 ND: 173 QRS: -18 QRSD: 102 T: 48 QT: 363 QTc: 453 Interpretive Statements SINUS RHYTHM POSSIBLE LEFT ATRIAL ENLARGEMENT [-0.1mV P WAVE IN V1/V2] POSSIBLE LEFT VENTRICULAR HYPERTROPHY [VOLTAGE CRITERIA PLUS LAE OR QRS WIDENING] Compared to ECG 05/11/2020 18:15:07 Sinus tachycardia no longer present T-wave abnormality no longer present Electronically Signed On 05-12-2020 19:33:53 CDT by Ramone Seay M.D. [email or web address] Biologicswinston medical centerPicarroblanchard valley [facility].[email or web address]/[id number]
[2020-05-11] MEDS: sodium chloride 0.9% 250 ML IV (22:03)
[2020-05-11] MEDS: ceFAZolin 1,000 MG in sodium chloride 0.9% (plus) 50 ML 100 MG IV (22:28)
[2020-05-11 22:43] LABS: Troponin 5 6HR Delta 8.3 ng/L (0-12)
[2020-05-11 22:45] LABS: Troponin 5 6HR 369.3 ng/L (0-10)
[2020-05-11 23:28] VITALS: BP 115/59; PULSE 97; RESP 12; O2SAT 96
[2020-05-11] MEDS: acetaminophen 325 mg Tablet 650 MG PO (23:30)
[2020-05-11] MEDS: Dianeal low Ca w/2.5% dex 2,000 mL Bag 2000 ML INTRAPERIT (23:43)
--- NOTE | 2020-05-11 23:45 | PC.NURSE ---
Pt started on Peritoneal Dialysis. Infusing bag had 1800 gm to start out with. Procedure done in sterile technique. Pt tolerated well.
[2020-05-12] VITALS (12 sets, daily range): BP systolic 127–159; BP diastolic 65–79; PULSE 85–96; RESP 15–23; TEMP 36.5–37.2; O2SAT 96–98
[2020-05-12] MEDS: sodium chloride 0.9% (100 ml) 100 ML 75 ML (00:45)
--- NOTE | 2020-05-12 01:27 | PC.NURSE ---
Addendum entered by Chioma Deluna RN 05/12/20 04:40: Spoke with pt again and she is dwelling for 6 hours at home. Disregard previous note. Original Note: While talking with pt she explained that when she does her dialysis at home she does not allow much dwell time before she drains.
[2020-05-12 05:09] LABS: Basophils # 0.1 10^3/uL (0.0-0.1); Basophils % 0.8 %; Eosinophils # 0.8 10^3/uL (0.0-0.8); Eosinophils % 8.1 %; Hemoglobin 7.5 g/dL (11.5-15.3); Lymphocytes # 1.2 10^3/uL (0.8-4.8); Lymphocytes % 12.7 %; Mean Corpuscular HGB Conc 31.3 g/dL (30.0-36.0); Mean Corpuscular Hemoglobin 32.2 pg (28.0-34.0); Mean Platelet Volume 8.7 fL (7.4-10.4); Monocytes # 1.2 10^3/uL (0.2-0.9); Monocytes % 13.2 %; Neutrophils # 5.6 10^3/uL (1.8-7.7); Neutrophils % 60.9 %; Nucleated Red Blood Cells % 0 %; Platelet Count 373 10^3/cmm (130-400); Red Blood Count 2.33 10^6/uL (4.1-5.3); Red Cell Distribution Width 16.2 % (12.1-15.1); White Blood Count 9.2 10^3/uL (4.0-10.0)
[2020-05-12 05:35] LABS: Alanine Aminotransferase < 5 U/L (0-33); Albumin Level 1.8 g/dL (3.5-5.2); Alkaline Phosphatase 107 IU/L (35-105); Anion Gap 25.1 (5-19); Aspartate Amino Transferase 19 U/L (0-32); Calcium 7.3 mg/dL (8.5-10.5); Carbon Dioxide 19 mmol/L (22-29); Chloride 92 mmol/L (98-107); Globulin 4.9 g/dL (1.3-4.6); Glucose 131 mg/dL (65-115); Osmolality Calculated 275 mOsm/kg (285-295); Potassium 5.1 mmol/L (3.5-5.1); Sodium 131 mmol/L (136-145); Total Bilirubin 0.3 mg/dL (0.15-1.2); Total Protein 6.7 g/dL (6.6-8.7)
[2020-05-12 05:49] LABS: Blood Urea Nitrogen 107 mg/dL (6-20)
[2020-05-12 06:34] LABS: Glucose Point of Care 135 mg/dL (70-110)
--- NOTE | 2020-05-12 06:41 | PC.NURSE ---
1900 gm drained from PD. Clear, light yellow fluid. Pt tolerated well.
[2020-05-12] MEDS: Dianeal low Ca w/2.5% dex 2,000 mL Bag 2000 ML INTRAPERIT ×3 (06:45→21:21)
--- NOTE | 2020-05-12 06:45 | PC.NURSE ---
PD infusing. Bag had 1800 gm of fluid in it.
--- NOTE | 2020-05-12 07:43 | PC.NURSE ---
Patient taken to nuclear medicine for V/Q scan. patient taken on her bed.
[2020-05-12] MEDS: sulfamethoxazole-trimeth DS 160-800 mg Tablet 1 TAB PO (09:53)
[2020-05-12] MEDS: ceFAZolin 1,000 MG in sodium chloride 0.9% (plus) 50 ML 100 MG IV ×2 (09:53→21:12)
[2020-05-12] MEDS: levothyroxine 150 mcg Tablet PO (09:53)
--- NOTE | 2020-05-12 10:31 | P.PN_ITS ---
Subjective Subjective: Interval history: Admitted overnight. H&P and labs noted. On examination patient lying comfortably in bed. Complaining of mild shortness of breath, cough for last 4 to 5 days along with minimal expectoration. She is complaining of occasional orthopnea and PND as well. She states she is been taking cefazolin twice daily every day along with peritoneal dialysis which she done as per the schedule. States main reason for her being in the hospital was pain in her left foot which is been going on for last 2 years but is getting worse for last 1 week. Vitals/I&O/Wt Last Vital Signs Temp 97.7 F 05/12/20 07:00 Pulse 88 05/12/20 07:00 Resp 17 05/12/20 07:00 BP 142/72 05/12/20 07:00 Pulse Ox 98 05/12/20 07:00 05/11/20 05/12/20 05/12/20 22:59 06:59 14:59 Intake Total 50 / 50 600 / 650 240 / 240 Output Total 200 / 200 Balance 50 / 50 600 / 650 40 / 40 Weight last 48 hrs Weight 117.027 kg Physical Exam Narrative: EXAM NARRATIVE: General: Obese obese female sitting comfortably in her bed Cardiac:S1, S2 regular, early diastolic murmur present in the aortic area soft, no gallop, JVD normal, no tachycardia Abdomen: Soft nontender, peritoneal dialysis catheter without any signs of drainage or signs of abdominal wall infection, bowel sounds present She has pressure stage I ulcer on her back on admission, Extremity: Left lower extremity hyperemia without any purulent drainage however I see some skin breakdown at plantar side of the foot Dorsalis pedis pulse palpable bilaterally Profuse pitting edema Neuro: Awake alert oriented x3 GCS 15 EOMI, PERRLA Neurological nonfocal exam Lungs: Normal vesicular breath sounds, bilaterally decreased air breath sounds clear to auscultation. Data : 05/12/20 04:48 05/12/20 04:48 Micro: Microbiology 05/12/20 06:55 Occult Blood (FIT) - Final Stool - Stool Aspirate 05/11/20 16:30 Blood Culture - Preliminary Blood SPECIMEN COLLECTED 05/11/20 16:28 Blood Culture - Preliminary Blood SPECIMEN COLLECTED A&P Assessment and plan (1) Cellulitis: Status: Acute (2) Aortic valve endocarditis: Status: Acute (3) Lymphedema of both lower extremities: Status: Acute (4) Anemia: Status: Acute (5) History of congestive heart failure: Status: Acute (6) Peritoneal dialysis catheter in place: Status: Acute (7) ESRD (end stage renal disease): Status: Acute (8) Diabetes: Status: Acute (9) Atypical chest pain: Status: Acute (10) SOB (shortness of breath): Status: Acute Additional A&P Information Bilateral chronic lymphedema: Patient states her pain has been chronic but has been getting worse for last 2 to 3 days. Lower limb Dopplers negative for DVT. Lower limb CT scan consistent with Charcot's foot with possibility of osteomyelitis which cannot be ruled out because of extensive edema. We will check ESR, CRP. We will compared to the ESR, CRP done on previous admission around April 14, 2020. Both values are going down it is highly unlikely that patient is having osteomyelitis. Patient CT scan discussed with Dr. Santana and he thinks patient does have Charcot's foot but chances of osteomyelitis is minimal. He is asking for plain film nonweightbearing. Will do x-ray of the foot and ankle. Patient's pain most likely because of Charcot's foot. Will need to follow-up with Dr. Santana as an outpatient. For possible cellulitis: Patient does not have any fever since admission but does report a fever of 101 low-grade fever of 99.8 on presentation to the ER but does not have any leukocytosis. Continue cefazolin which will cover for both MSSA endocarditis, Bactrim which started last night for possible MRSA infection. For additional gram-negative and possible Pseudomonas coverage given her history of diabetes and extensive cellulitis we will start patient on levofloxacin as per her renal functions and parenteral dialysis status. Check MRSA swab. If MRSA is negative can discontinue Bactrim. Patient will most likely need additional antibiotic coverage for cellulitis for overall 5 days. [place] aortic valve endocarditis: Currently getting treatment from with cefazolin 1 g IV every 12 hours. We will request documents from [facility] regarding further treatment plan. Case discussed with Dr. Gamble. For now patient is due for an outpatient ERIN on May 20. If patient worsens can do a ERIN before that. Limited TTE to evaluate for ejection fraction. Shortness of breath: Check proBNP, CT chest abdomen pelvis without contrast, PE has been ruled out by low probability on VQ scan. Given her recent admission at [facility] in [place] we will have to rule out COVID as patient has been having shortness of breath, cough, malaise and fevers at home also. Droplet and contact isolation precautions till then. Keep saturation over 92%. As her saturation is well-maintained on room air right now we will hold off on any IV diuresis for nebulization for now. Abnormal troponin Is chest pain-free, negative delta troponin, I believe this is secondary to chronic kidney disease, type II MT Serial troponin and EKG Monitoring in CSU Acute on chronic macrocytic anemia: Overall has received 2 units of PRBC in last 1 week. Check iron panel, erythropoietin levels. Anemia most likely because of chronic disease and CKD. We will discuss with nephrology for possible erythropoietin shot. End-stage renal disease: Dependent on peritoneal dialysis. Patient is more acidotic and creatinine continues to be on the higher side so we will discuss with Dr. Yin for possible change in dialysis fluid or regimen. Full code Renal on dialysis carb consistent diet DVT prophylaxis: Heparin 5000 subcu every 12 hour. Attestations Medical Necessity Statement*: Infective endocarditis, shortness of breath, rule out COVID-19 Time Spent in Patient Care: Greater than 35 minutes (>than 50% of time spent in counselling and/or direct pt care on unit) . Coding Level of Care Code Acute Purchasing/Receiving for g Fwd Diagnoses Cellulitis L03.90 Aortic valve endocarditis I35.8 Lymphedema of both lower extremities I89.0 Anemia D64.9 History of congestive heart failure Z86.79 Peritoneal dialysis catheter in place Z99.2 ESRD (end stage renal disease) N18.6 Diabetes E11.9 Atypical chest pain R07.89 SOB (shortness of breath) R06.02
[2020-05-12 10:42] LABS: Estmated Average Glucose 117; Hemoglobin A1C 5.7 % (4.0-6.0)
--- NOTE | 2020-05-12 10:47 | PM.PN ---
Subjective Subjective: Interval history: Patient feels well today, a little SOB and slight cough. Received PD overnight without pain, clear effluent and easy flow. No uremic Sx and she denies fevers and chills. Chronic LE edema. Some erythema of the lower legs Vitals/I&O/Wt Last Vital Signs Temp 97.7 F 05/12/20 07:00 Pulse 88 05/12/20 07:00 Resp 17 05/12/20 07:00 BP 142/72 05/12/20 07:00 Pulse Ox 98 05/12/20 07:00 05/11/20 05/12/20 05/12/20 22:59 06:59 14:59 Intake Total 50 / 50 600 / 650 240 / 240 Output Total 200 / 200 Balance 50 / 50 600 / 650 40 / 40 Weight last 48 hrs Weight 117.027 kg Physical Exam Narrative: EXAM NARRATIVE: Exam performed with the aid of the bedside RN S1, S2 no murmur Abdomen soft nontender, peritoneal dialysis catheter without any signs of drainage or signs of abdominal wall infection She has pressure stage I ulcer on her back on admission, Left lower extremity hyperemia without any purulent drainage however I see some skin breakdown at plantar side of the foot Profuse pitting edema Awake alert oriented x3 GCS 15 EOMI, PERRLA Neurological nonfocal exam Lungs are clear to auscultation Const: ORIENTATION/CONSCIOUSNESS: Yes oriented to person, Yes oriented to place and Yes oriented to time Eye: COMMON NORMALS: Equal, round and reactive pupils present, EOMs intact bilaterally, conjunctivae normal and no scleral icterus CONJUNCTIVA: Yes conjunctivae normal PUPIL: Yes Equal, round and reactive pupils present Neck/C-Spine: COMMON NORMALS: full ROM, no lymphadenopathy, supple and no JVD Lymph: LYMPHATIC: no lymphadenopathy noted and no lymphedema noted Resp: COMMON NORMALS: normal respiratory effort, No retractions, No use of accessory muscles and clear to auscultation bilaterally AUSCULTATION: clear to auscultation bilaterally Cardio: COMMON NORMALS: no JVD, regular rate, regular rhythm and No murmurs present (Cardio) RATE: regular rate RHYTHM: regular rhythm GI: COMMON NORMALS: Soft to palpation and No hepatosplenomegaly present AUSCULTATION: Yes normoactive bowel sounds PALPATION: Yes Soft to palpation, No Tenderness to palpation present (GI), No Guarding due to palpation present (GI) and Yes No hepatosplenomegaly present Neuro: SENSORIUM/ORIENTATION: Yes oriented to person, Yes oriented to place and Yes oriented to time Skin: COMMON NORMALS: no rashes or lesions noted GENERAL SKIN EXAM: no rashes or lesions noted Data : 05/12/20 04:48 05/12/20 04:48 Micro: Microbiology 05/12/20 06:55 Occult Blood (FIT) - Final Stool - Stool Aspirate 05/11/20 16:30 Blood Culture - Preliminary Blood SPECIMEN COLLECTED 05/11/20 16:28 Blood Culture - Preliminary Blood SPECIMEN COLLECTED A&P Additional A&P Information 1. ESRD - At home she was receiving only once daily PD exchange, 2L over 6hrs; this would rely on a reasonable [place] kidney function, which is now likely that she has lost - will do Q6 exchanges a day and see how she does - will d/w Dr Lora to increase outpatient prescription when she is close to DC - avoid the usual nephrotoxins - dose meds for eGFR < 15 on dialysis 2. Lytes ok 3. Anemia - will check iron levels and TIBC and give EPO today 4. ID - Possible LE cellulitis; Bactrim for MRSA coverage and continue cefazolin for her MSSA endocarditis Thanks, please call with any concerns; [phone] Attestations Medical Necessity Statement*: eval for ESRD Coding Level of Care Code Acute Ship Pilot Dispatcher for Gregorio Thompson
--- NOTE | 2020-05-12 10:58 | PC.CHAP ---
Pastoral Care Encounter/Spiritual Assessment Type of Contact [] Declined senior it project manager visit [] Patient/Family/Request visit [] Outpatient visit [] Follow-up visit [] Physician referral [] Code/Alert [] Routine visit [] Staff referral [] Actively dying [] Patient sleeping [] Family support [] [] Out of room [] Palliative care [] [] Receiving care in room [] Pre-surgical visit [] Trauma [] Long length of stay [] ICU visit [x] Other: with staff, needs a fellow up Relational/Emotional Strength [] Patient feels connected with others/family/visitors/staff [] Distress [] Loneliness/isolation [] Abandonment Spirituality of Patient [] Person of Mana [] Attends Confucianist of their Mana [] Believes in Prayer [] Reads Bible or Judaism materials [] There are Spiritual issues to be addressed Assembler [employer] Interventions [] Prayer [] Active listening [] Non-anxious presence [] Spiritual/emotional support [] Crisis/trauma care [] Spiritual counseling [] Bereavement support [] Provided bereavement packet [] Provided Bible/devotional materials [] Provided toy/stuffed animal, coloring book to patient or family member [] Provided Communion [] Anointing/[place] [] Salvation [] Completed spiritual assessment [] Other: Impact on Illness or Injury [] Angry [] Fearful [] Anxious [] Often cries [] Exhaustion [] Unable to work [] Unable to attend jehovah's witness [] Unable to walk/stand [] Unable to read [] Unable to drive [] Unable to eat/drink [] Unable to sleep [] Unable to be with family [] Patient intubated [] Other: Summary with staff, needs a fellow up Time spent with patient 5 mins
--- NOTE | 2020-05-12 11:04 | DCPLANNER ---
airborne operations manager had message to schedule a follow up appointment for patient with Wound Care. airborne operations manager called Wound Care, spoke with Anupama, a follow up appointment is scheduled for Tuesday, May 19, 2020 at 1:00 with . Clinic will call patient with appointment information. airborne operations manager called the in patient side of care coordination, and gave them the appointment information to add to discharge plan.
[2020-05-12 11:10] LABS: NT Pro B Type Natriuretic Pept 9557 pg/mL (0-125); Procalcitonin 1.75 ng/mL (0-0.5)
--- NOTE | 2020-05-12 11:12 | PC.NURSE ---
In to bedside to assist primary nurse Jaylene. Dr. Ward came to bedside to round as well as telenephro doc. Instructions from Dr Ward to obtain Covid swab. Covid swab kit brought down by lab. Swab obtained at 11:00. Labeled and sent to lab immediately. Report given to primary nurse Jaylene.
[2020-05-12 11:15] LABS: Glucose Point of Care 180 mg/dL (70-110)
[2020-05-12 11:20] LABS: C Reactive Protein 79.1 mg/L (0.0-4.9)
[2020-05-12 11:36] LABS: Iron 41 ug/dL (37-145); Percent Saturation 46.5 % (20-50); Total Iron Binding Capacity 88 mcg/dl; Unsaturated Iron Binding 47 ug/dL (112-347)
[2020-05-12 11:38] LABS: Erythrocyte Sedimentation Rate > 120 mm/hr (0-15)
[2020-05-12] MEDS: epoetin alfa 10,000 unit/mL INJ 10000 UNIT SUBCUT (14:11)
[2020-05-12] MEDS: HYDROcodone-acetaminophen 5-325 mg Tablet 1 TAB PO (16:10)
[2020-05-12 16:24] LABS: Glucose Point of Care 146 mg/dL (70-110)
[2020-05-12] MEDS: sulfamethoxazole-trimeth DS 160-800 mg Tablet 0.5 TAB PO (17:27)
--- NOTE | 2020-05-12 20:25 | NM_ITS ---
WS: [id number] NUCLEAR MEDICINE LUNG VENTILATION AND PERFUSION CLINICAL INFORMATION: Persistent sinus tachycardia TECHNIQUE: Ventilation/perfusion lung scan with 32.2 mCi technetium 99m DTPA. 5.5 mCi technetium 99m MAA COMPARISON: Radiograph May 11, 2020 FINDINGS: Patchy radiotracer deposition on the ventilatory images consistent with emphysema. Mild central bronc hial deposition. Normal symmetric radiotracer uptake on the perfusion weighted images. No mismatched perfusion defects to indicate pulmonary embolus. No lobar defects. Exam interpreted using the PIOPED II criteria 2008: 1. Normal 2. High probability (> 80%) 3. Intermediate probability (20-79%) 4. Low probability (10-19%) 5. Very low probability (<10%) JNM 2006 6. Indeterminate NM/NM pul vent and perfus* [id number] IMPRESSION: 1. Low probability for pulmonary embolus.
[2020-05-12 20:45] LABS: Glucose Point of Care 213 mg/dL (70-110)
--- NOTE | 2020-05-12 21:00 | PC.NURSE ---
Pt resting comfortably in bed.PICC line to right subclavian in place with clean, dry, and intact dressing. Left foot ulcer and redness spreading up LLE. BLE edema present. Denies complains. Peritoneal dialysis in progress. Dry cough persists with small amount of production per patient. No signs or symptoms of distress. Call light in reach. No further needs at this time.
[2020-05-13] VITALS (8 sets, daily range): BP systolic 97–138; BP diastolic 57–79; PULSE 67–97; RESP 16–25; TEMP 36.7–37.2; O2SAT 96–98
[2020-05-13] MEDS: HYDROcodone-acetaminophen 5-325 mg Tablet 1 TAB PO (00:12)
[2020-05-13] MEDS: Dianeal low Ca w/2.5% dex 2,000 mL Bag 2000 ML INTRAPERIT (04:35)
[2020-05-13 04:52] LABS: Basophils # 0.1 10^3/uL (0.0-0.1); Basophils % 0.6 %; Eosinophils # 0.8 10^3/uL (0.0-0.8); Hematocrit 23.6 % (37.0-47.0); Hemoglobin 7.3 g/dL (11.5-15.3); Lymphocytes % 10.1 %; Mean Corpuscular HGB Conc 30.9 g/dL (30.0-36.0); Mean Corpuscular Hemoglobin 31.6 pg (28.0-34.0); Mean Corpuscular Volume 102.2 fL (81-99); Mean Platelet Volume 8.8 fL (7.4-10.4); Monocytes # 1.1 10^3/uL (0.2-0.9); Monocytes % 10.6 %; Neutrophils # 6.8 10^3/uL (1.8-7.7); Nucleated Red Blood Cells % 0 %; Platelet Count 392 10^3/cmm (130-400); Red Blood Count 2.31 10^6/uL (4.1-5.3); Red Cell Distribution Width 16.2 % (12.1-15.1); White Blood Count 10.3 10^3/uL (4.0-10.0)
[2020-05-13 05:07] LABS: Alanine Aminotransferase < 5 U/L (0-33); Albumin Level 1.7 g/dL (3.5-5.2); Alkaline Phosphatase 103 IU/L (35-105); Anion Gap 25.9 (5-19); Aspartate Amino Transferase 17 U/L (0-32); Calcium 7.5 mg/dL (8.5-10.5); Carbon Dioxide 19 mmol/L (22-29); Chloride 92 mmol/L (98-107); Creatinine Clr Calc Pharmacy 6.6173; Globulin 4.9 g/dL (1.3-4.6); Glomerular Filtration Rate 3.2 mL/min (90-130); Glucose 135 mg/dL (65-115); Osmolality Calculated 277 mOsm/kg (285-295); Potassium 4.9 mmol/L (3.5-5.1); Sodium 132 mmol/L (136-145); Total Bilirubin 0.2 mg/dL (0.15-1.2); Total Protein 6.6 g/dL (6.6-8.7)
--- NOTE | 2020-05-13 05:07 | PC.NURSE ---
Pt stable through out this shift. Remains on room air. Cough persists. Pain controlled with PRN medications, see MAR. Pt bathed with minimal assist. Complete bed bath with CHG wipes, shower cap, and oral care provided. Pt sitting in chair per request. No acute changes throughout the night. Peritoneal dialyisis with total loss of 1.1 L. Pt denies any further needs at this time.
[2020-05-13 05:33] LABS: Blood Urea Nitrogen 100 mg/dL (6-20)
[2020-05-13 06:14] LABS: Glucose Point of Care 178 mg/dL (70-110)
[2020-05-13] MEDS: levoFLOXacin 500 mg Tablet PO (06:25)
[2020-05-13 07:32] LABS: Coronavirus Lab Test PTC NOT DETECTED
--- NOTE | 2020-05-13 07:35 | PC.NURSE ---
DR. UP NOTIFIED OF PATIENT'S COVID TEST BEING NEGATIVE. DC ISOLATION.
--- NOTE | 2020-05-13 07:38 | XRR_ITS ---
PROCEDURE INFORMATION: Exam: XR Left Ankle Exam date and time: 05/13/2020 8:36 AM Age: 59 years old Clinical indication: Pain; Ankle; Left; Additional info: Possible charcot foot, pain/swelling x 2 years TECHNIQUE: Imaging protocol: XR Left ankle. Views: 3 or more views. COMPARISON: No relevant prior studies available. FINDINGS: Bones/joints: There is pronounced fragmentation of the calcaneus, with loss of height and disruption of the normal talocalcaneal articulation. There is fragmentation of the distal fibula. Soft tissues: There is diffuse soft tissue swelling. XR/XR ankle LT min 3V* [id number] IMPRESSION: Fragmentation of the hindfoot, particularly in the calcaneus, with loss of height and disruption of the talocalcaneal articulation. Findings may reflect remote trauma or infection. Charcot foot is a consideration, although this typically involves the midfoot.
--- NOTE | 2020-05-13 08:57 | PM.PN ---
Subjective Subjective: Interval history: No acute events overnight. Patient has remained stable. COVID-19 came back negative. On examination today patient is lying comfortably in bed. States her breathing is little better, feels overall better but still concerned about cough. Patient has remained afebrile, denies having chest pain, headache, dizziness, palpitations. Vitals/I&O/Wt Last Vital Signs Temp 98.1 F 05/13/20 07:53 Pulse 97 05/13/20 07:53 Resp 25 H 05/13/20 07:53 BP 97/63 05/13/20 07:53 Pulse Ox 98 05/13/20 07:53 05/12/20 05/13/20 05/13/20 22:59 06:59 14:59 Intake Total 4240 / 6770 2600 / 9370 Output Total 2400 / 4900 2700 / 7600 Balance 1840 / 1870 -100 / 1770 Weight last 48 hrs Weight 117.027 kg Physical Exam Narrative: EXAM NARRATIVE: General: Obese obese female sitting comfortably in her bed Cardiac:S1, S2 regular, early diastolic murmur present in the aortic area soft, no gallop, JVD normal, no tachycardia Abdomen: Soft nontender, peritoneal dialysis catheter without any signs of drainage or signs of abdominal wall infection, bowel sounds present She has pressure stage I ulcer on her back on admission, Extremity: Left lower extremity hyperemia without any purulent drainage however I see some skin breakdown at plantar side of the foot Dorsalis pedis pulse palpable bilaterally Profuse pitting edema Neuro: Awake alert oriented x3 GCS 15, EOMI, PERRLA Neurological nonfocal exam Lungs: Normal vesicular breath sounds, bilaterally decreased air breath sounds clear to auscultation. Data : 05/13/20 03:32 05/13/20 03:32 Micro: Microbiology 05/11/20 16:30 Blood Culture - Preliminary Blood NEGATIVE TO DATE 05/11/20 16:28 Blood Culture - Preliminary Blood NEGATIVE TO DATE 05/12/20 06:55 Occult Blood (FIT) - Final Stool - Stool Aspirate A&P Assessment and plan (1) Cellulitis: Status: Acute (2) Aortic valve endocarditis: Status: Acute (3) Lymphedema of both lower extremities: Status: Acute (4) Anemia: Status: Acute (5) History of congestive heart failure: Status: Acute (6) Peritoneal dialysis catheter in place: Status: Acute (7) ESRD (end stage renal disease): Status: Acute (8) Diabetes: Status: Acute (9) Atypical chest pain: Status: Acute (10) SOB (shortness of breath): Status: Acute Additional A&P Information Bilateral chronic lymphedema: Patient states her pain has been chronic but has been getting worse for last 2 to 3 days. Lower limb Dopplers negative for DVT. Lower limb CT scan consistent with Charcot's foot with possibility of osteomyelitis which cannot be ruled out because of extensive edema. ESR still more than 120 CRP is coming down. With these results and as per my discussion with Dr. Santana osteomyelitis is Patient CT scan discussed with Dr. Santana and he thinks patient does have Charcot's foot but chances of osteomyelitis is minimal. He is asking for plain film nonweightbearing. Will do x-ray of the foot and ankle. We will follow-up with recommendations regarding patient's weightbearing status, possible need of prosthesis. For possible cellulitis: Patient does not have any fever since admission but does report a fever of 101 low-grade fever of 99.8 on presentation to the ER but does not have any leukocytosis. Continue cefazolin which will cover for both MSSA endocarditis, continue with Bactrim and levofloxacin for MRSA and Pseudomonas coverage respectively. Patient would most likely need 5-day course of Bactrim and levofloxacin to cover for cellulitis. If MRSA swab comes back negative will discontinue Bactrim. Lymphedema wraps. PT/OT evaluation. [place] aortic valve endocarditis: Currently getting treatment from with cefazolin 1 g IV every 12 hours. We will request documents from [facility] regarding further treatment plan. Case discussed with Dr. Gamble. For now patient is due for an outpatient ERIN on May 20. We will keep patient n.p.o. overnight. If patient spikes fever then will do ERIN tomorrow otherwise on the schedule date. Limited TTE to evaluate for ejection fraction. Shortness of breath: CT abdomen pelvis with chest negative for any fluid overload, infiltrate. COVID-19 negative. Shortness of breath most likely because of acidosis because of ESRD. Remove isolation, contact precautions. Keep saturation over 92%. As her saturation is well-maintained on room air right now we will hold off on any IV diuresis for nebulization for now. Abnormal troponin Is chest pain-free, negative delta troponin, I believe this is secondary to chronic kidney disease, type II [place] Serial troponin and EKG Monitoring in CSU Acute on chronic macrocytic anemia: Overall has received 2 units of PRBC in last 1 week. Hemoglobin stable. Continue with oral iron supplementation. Patient received Procrit yesterday. End-stage renal disease: Dependent on peritoneal dialysis. Appreciate Dr. Yin's recommendation. If patient continues to remain acidotic we will start patient on oral sodium bicarbonate supplementation. Check phosphorus levels. If elevated will start patient on phoslo. Full code Renal on dialysis carb consistent diet, n.p.o. after midnight for possible ERIN tomorrow if patient spikes fever DVT prophylaxis: Heparin 5000 subcu every 12 hour. Attestations Medical Necessity Statement*: Chronic lymphedema, infective endocarditis, ESRD Coding Level of Care Code Acute Spanish Speaking Nanny for [facility] Fwd Diagnoses Cellulitis L03.90 Aortic valve endocarditis I35.8 Lymphedema of both lower extremities I89.0 Anemia D64.9 History of congestive heart failure Z86.79 Peritoneal dialysis catheter in place Z99.2 ESRD (end stage renal disease) N18.6 Diabetes E11.9 Atypical chest pain R07.89 SOB (shortness of breath) R06.02
--- NOTE | 2020-05-13 09:00 | CT_ITS ---
WS: [id number] CT CHEST, ABDOMEN, AND PELVIS TECHNIQUE: Noncontrast CT of the chest, abdomen, and pelvis with coronal and sagittal reformatted mariia ges. CLINICAL INFORMATION: sob, ascitis COMPARISON: CT chest April 14, [address] April 13, 2020 DLP: 2514.[address] scans at [facility] use at least one of these dose optimization techniques: automat ed exposure control; mA and/or kV adjustment per patient size (includes targeted exams where dose is matched to clinical indication); or iterative reconstruction. CT CHEST: Both lungs are well aerated. No acute pulmonary infiltrates. No consolidation or pleural fluid. No mejia spicious pulmonary opacities. Subsegmental atelectasis in the right middle lobe. Slight subpleural fi brosis right lower lobe. Normal caliber thoracic aorta. Coronary calcification. No axillary lymphadenopathy. No mediastinal or hilar lymphadenopathy. Postoperative changes lower thoracic spine. CT ABDOMEN AND PELVIS: Prior postoperative hysterectomy. Atrophic uterus. Small amount of perihepatic ascites. Normal GE lizzeth ction. Small amount perisplenic ascites. Small amount of ascites in the pericolic gutters. Moderate a scites in the pelvis with pelvic catheter. Ascites is increased from April 13, 2020. No evidence of small or large bowel obstruction. Colon appears normal. Small bilateral adrenal adenom as. Atrophic pancreas. Vascular calcification. No hydronephrosis in either kidney. No periaortic lymp hadenopathy. A few slightly prominent para-aortic lymph nodes nonspecific but likely reactive the lar gest measuring 9 mm unchanged. Hypertrophic changes thoracic and lumbar spine. Disc osteophyte comple x L4-5 with moderate central canal stenosis unchanged. CT/CT chest abd pel wo con IMPRESSION: 1. No acute chest findings. 2. Mild perisplenic and perihepatic ascites. Small amount of fluid pericolic g utters. Mild to moderate fluid in the pelvis is increased from April 13, 2020. 3. Stable position of the pelvic catheter in the pelvis. 4. Small bilateral adrenal adenomas. 5. A few prominent periaortic lymph nodes likely reactive and unchanged. 6. No hydronephrosis in either kidney. 7. Prior cholecystectomy. Atrophic uterus.
[2020-05-13] MEDS: promethazine 25 mg Tablet 12.5 MG PO ×2 (09:01→15:52)
[2020-05-13] MEDS: sulfamethoxazole-trimeth DS 160-800 mg Tablet 0.5 TAB PO (09:01)
[2020-05-13] MEDS: levothyroxine 150 mcg Tablet PO (09:01)
[2020-05-13] MEDS: ceFAZolin 1,000 MG in sodium chloride 0.9% (plus) 50 ML 100 MG IV ×2 (09:06→21:09)
[2020-05-13 09:26] LABS: Magnesium 1.9 mg/dL (1.7-2.3)
[2020-05-13] MEDS: sodium bicarbonate 650 mg Tablet PO ×3 (09:27→21:08)
[2020-05-13 09:39] LABS: Phosphorus 8.2 mg/dL (2.5-4.5)
--- NOTE | 2020-05-13 10:34 | PM.PN ---
Subjective Subjective: Interval history: Feels weak and tired. PD is uncomfortable for her at these higher volumes. Hemodynamics remain labile. Chronic heavy LE edema. Passing urine in small amounts. Denies additional uremic Sx. Hyperphos noted Vitals/I&O/Wt Last Vital Signs Temp 98.1 F 05/13/20 07:53 Pulse 97 05/13/20 07:53 Resp 25 H 05/13/20 07:53 BP 97/63 05/13/20 07:53 Pulse Ox 98 05/13/20 07:53 05/12/20 05/13/20 05/13/20 22:59 06:59 14:59 Intake Total 4290 / 6820 2600 / 9420 360 / 360 Output Total 2400 / 4900 2700 / 7600 Balance 1890 / 1920 -100 / 1820 360 / 360 Weight last 48 hrs Weight 117.027 kg Physical Exam Narrative: EXAM NARRATIVE: Exam performed with the aid of the bedside RN S1, S2 no murmur Abdomen soft nontender, peritoneal dialysis catheter without any signs of drainage or signs of abdominal wall infection She has pressure stage I ulcer on her back on admission, Left lower extremity hyperemia without any purulent drainage however I see some skin breakdown at plantar side of the foot Profuse pitting edema Awake alert oriented x3 GCS 15 EOMI, PERRLA Neurological nonfocal exam Lungs are clear to auscultation Const: ORIENTATION/CONSCIOUSNESS: Yes oriented to person, Yes oriented to place and Yes oriented to time Eye: COMMON NORMALS: Equal, round and reactive pupils present, EOMs intact bilaterally, conjunctivae normal and no scleral icterus CONJUNCTIVA: Yes conjunctivae normal PUPIL: Yes Equal, round and reactive pupils present Neck/C-Spine: COMMON NORMALS: full ROM, no lymphadenopathy, supple and no JVD Lymph: LYMPHATIC: no lymphadenopathy noted and no lymphedema noted Resp: COMMON NORMALS: normal respiratory effort, No retractions, No use of accessory muscles and clear to auscultation bilaterally AUSCULTATION: clear to auscultation bilaterally Cardio: COMMON NORMALS: no JVD, regular rate, regular rhythm and No murmurs present (Cardio) RATE: regular rate RHYTHM: regular rhythm GI: COMMON NORMALS: Soft to palpation and No hepatosplenomegaly present AUSCULTATION: Yes normoactive bowel sounds PALPATION: Yes Soft to palpation, No Tenderness to palpation present (GI), No Guarding due to palpation present (GI) and Yes No hepatosplenomegaly present Neuro: SENSORIUM/ORIENTATION: Yes oriented to person, Yes oriented to place and Yes oriented to time Skin: COMMON NORMALS: no rashes or lesions noted GENERAL SKIN EXAM: no rashes or lesions noted Data : 05/13/20 03:32 05/13/20 03:32 Micro: Microbiology 05/11/20 16:30 Blood Culture - Preliminary Blood NEGATIVE TO DATE 05/11/20 16:28 Blood Culture - Preliminary Blood NEGATIVE TO DATE 05/12/20 06:55 Occult Blood (FIT) - Final Stool - Stool Aspirate A&P Additional A&P Information 1. ESRD - At home she was receiving only once daily PD exchange, 2L over 6hrs; this would rely on a reasonable [place] kidney function, which is now likely that she has lost - still under dialyzed, creatinine coming down with slightly improved clearance - reduce volume to 1.5L Q6 as we continue to tweak prescription, something that can tolerate; I have discussed with Dr Lora, she may need to transition to dialysis for a period of time - avoid the usual nephrotoxins - dose meds for eGFR < 15 on dialysis 2. Hyperphos - add phoslo 3. Anemia - s/p EPO 05/12 - iron levels look good 4. 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
--- NOTE | 2020-05-13 10:36 | USCV_ITS ---
Alesia Shaw Age: 59 Gender: F : 1960 Exam Date: 05/13/2020 10:42 Ordering Phys: Angel Baez MD Technologist: Abi Andino Exam Location: [facility] [place] Indication: ao valve endocarditis BP: 97 / 63 HR: 97 Rhythm: Sinus Technical Quality: Adequate MEASUREMENTS (Male / Female) Normal Values 2D ECHO LV Diastolic Diameter PLAX 4.1 cm 4.2 - 5.9 / 3.9 - 5.3 cm LV Systolic Diameter PLAX 3.1 cm IVS Diastolic Thickness 1.2 cm 0.6 - 1.0 / 0.6 - 0.9 cm IVS Systolic Thickness 1.3 cm LVPW Diastolic Thickness 1.3 cm 0.6 - 1.0 / 0.6 - 0.9 cm LVPW Systolic Thickness 1.8 cm LVOT Diameter 2.1 cm LV Ejection Fraction 2D Teich 48.2 % LV Ejection Fraction MOD 2C 64.6 % LV Ejection Fraction 2C AL 67.1 % LA Diameter 2.9 cm LA Width 3.1 cm LA Height 4.9 cm RA Width 2.4 cm RA Height 3.8 cm M-MODE LV Diastolic Diameter MM 5.5 cm 4.2 - 5.9 / 3.9 - 5.3 cm LV Systolic Diameter MM 3.1 cm LV Ejection Fraction MM Teich 73.5 % IVS Diastolic Thickness MM 1.4 cm 0.6 - 1.0 / 0.6 - 0.9 cm IVS Systolic Thickness MM 1.6 cm LVPW Diastolic Thickness MM 1.3 cm 0.6 - 1.0 / 0.6 - 0.9 cm LVPW Systolic Thickness MM 1.9 cm Aortic Annulus Diameter 2.9 cm LA Ao Ratio MM 1.0 MV E Point Septal Separation 0.5 cm DOPPLER AV Peak Velocity 113.0 cm/s LVOT Peak Velocity 100.0 cm/s AV Area Cont Eq vti 4.1 cm squared AV Area Cont Eq pk 3.2 cm squared MV Peak Velocity 104.0 cm/s MV Area PHT 4.1 cm squared Mitral E to A Ratio 0.6 MV E' Velocity 11.0 cm/s Mitral E to MV E' Ratio 6.9 Mitral E to LV E' Lateral Ratio 5.4 Mitral E to LV E' Septal Ratio 9.5 TR Peak Velocity 73.0 cm/s TR Peak Gradient 2.1 mmHg Right Atrial Pressure 3.0 mmHg Pulmonary Artery Systolic Pressu 5.1 mmHg PV Peak Velocity 106.0 cm/s RV Acceleration Time 0.1 s FINDINGS Left Ventricle Normal left ventricular cavity size. Normal left ventricular systolic function. Left ventricular ejection fraction is estimated at 65%. No diagnostic regional wall motion abnormalities. Right Ventricle Normal right ventricular size and systolic function, RVSP 5.1 mmHg. Right Atrium Normal right atrial size. Left Atrium Normal left atrial size. Mitral Valve Structurally normal mitral valve. Trace mitral valve regurgitation. Aortic Valve Mildly thickened trileaflet aortic valve (thickening seems to be more pronounced in noncoronary cusp). No aortic valve stenosis. No evidence of vegetation on aortic valve. Trace aortic valve regurgitation. Tricuspid Valve Structurally normal tricuspid valve. Trace tricuspid valve regurgitation. Pulmonic Valve Pulmonic valve not well visualized. Pericardium No pericardial effusion. Aorta Normal-sized aortic root. CONCLUSIONS 1. Normal left ventricular cavity size and systolic function. Left ventricular ejection fraction is estimated at 65%. No diagnostic regional wall motion abnormalities. 2. Normal right ventricular size and systolic function, RVSP 5.1 mmHg. 3. Mildly thickened trileaflet aortic valve. Previously noted possible aortic valve vegetation was not seen on this study. Trace aortic valve regurgitation. Allison Gamble MD (Electronically Signed) Final Date: 13 May 2020 15:54 S
[2020-05-13 11:28] LABS: Glucose Point of Care 158 mg/dL (70-110)
[2020-05-13] MEDS: calcium acetate 667 mg Capsule 1334 MG PO ×2 (12:53→17:16)
--- NOTE | 2020-05-13 14:29 | P.CONIM_ITS ---
Providers/Reason For Consult Consulting Physican/Specialty*: Curtis Santana D.P.M. Reason for Consult*: Charcot arthropathy left lower extremity. Attending Physician: Angel Baez MD Primary Care Provider: Karen Bear MD History of Present Illness History of Present Illness Alesia Shaw is a 59 year old female with significant comorbidities including type 2 diabetes, stage V renal disease, hypothyroidism, aortic valve vegetation, hypothyroidism, CHF and lymphedema. She has a history of spinal abscess in 2018 with surgical intervention at [facility] in [place]. She has been on long-term antibiotics with history of MRSA. Patient has complained of increased redness, swelling and pain at her left lower extremity. I was consulted to evaluate patient's left foot pain several weeks in duration. She has had increased redness, swelling and pain with weightbearing. She denies any known injury or trauma. Review of Systems General: Reports: 10 or more systems reviewed and unremarkable except in HPI and below Const: Denies: fever(s) or chills Card: Denies: chest pain or palpitations Resp: Denies: productive cough GI: Denies: nausea or vomiting : Denies: flank pain Musc: Reports: back pain, extremity pain, extremity swelling, joint pain, joint swelling, joint stiffness, limited range of motion and deformity Skin/Breast: Reports: erythema, nail changes and change in hair Neuro: Reports: numbness in extremities, sensory changes and difficulty walking Psych: Denies: suicidal ideation Jimmy/Lymph: Denies: easy bruising Meds/Allergies Home Medications and Allergies Home Medications Medication Instructions Recorded Confirmed Last Taken Type levothyroxine 150 mcg tablet 150 mcg PO DAILY 04/02/20 05/11/20 05/11/20 History ergocalciferol (vitamin D2) 1,250 mcg PO DAILY 04/13/20 05/11/20 05/10/20 History insulin NPH and regular human See Rx Instructions .ROUTE .COMPLEX 04/13/20 05/11/20 05/06/20 History [Novolin 70/30 U-100 Insulin] vit B [id number] ac-zinc 1 tab PO DAILY 04/13/20 05/11/20 05/11/20 History [RenaPlex] cefazolin 1 g IM Q12H 05/07/20 05/11/20 05/11/20 History gentamicin 1 applic TOPICAL TID 05/07/20 05/11/20 05/11/20 History hydrocodone-acetaminophen 1 tab PO Q6H PRN #30 tab 05/11/20 Unknown Rx Allergies Allergy/AdvReac Type Severity Reaction Status Date / Time codeine Allergy Unknown Verified 05/11/20 15:27 Iodinated Contrast Media Allergy ALGY-Hives Verified 05/11/20 15:27 insulin detemir AdvReac Unknown Verified 05/11/20 15:27 [From Levemir U-100 Insulin] insulin glargine AdvReac Unknown Verified 05/11/20 15:27 [From Lantus U-100 Insulin] Current Medications Current Medications Generic Name Dose Route Start Last Admin Trade Name Freq PRN Reason Stop Dose Admin Acetaminophen 650 mg 05/11/20 20:06 05/11/20 23:30 Tylenol PO 650 mg Q4H PRN Administration MILD PAIN OR INCREASE TEMP Hydrocodone Bitart/Acetaminophen 1 tab 05/11/20 19:20 05/13/20 00:12 Barnard 5-325 Mg PO 1 tab Q4H PRN Administration MODERATE TO SEVERE PAIN Calcium Acetate 1,334 mg 05/13/20 12:00 05/13/20 12:53 Phoslo PO 1,334 mg TIDWM SHELBY Administration Cefazolin Sodium 1,000 mg/ 50 mls @ 100 mls/hr 05/11/20 22:00 05/13/20 09:06 Sodium Chloride IV 100 mls/hr Q12H SHELBY Administration Insulin Aspart 0 unit 05/11/20 21:00 05/13/20 12:54 Novolog SUBCUT 4 unit WM&BEDTIME SHELBY Administration Protocol Levofloxacin 500 mg 05/13/20 07:00 05/13/20 06:25 Levaquin PO 500 mg Q48H SHELBY Administration Protocol Levothyroxine Sodium 150 mcg 05/12/20 09:00 05/13/20 09:01 Synthroid PO 150 mcg DAILY SHELBY Administration Promethazine HCl 12.5 mg 05/13/20 07:48 05/13/20 09:01 Phenergan PO 12.5 mg Q6H PRN Administration NAUSEA Sodium Bicarbonate 650 mg 05/13/20 09:00 05/13/20 09:27 Sodium Bicarbonate PO 650 mg TID SHELBY Administration PFSH Acute PFSH: Medical History Atypical chest pain Congestive heart failure Diabetes Diabetes mellitus type 2, insulin-dependent ESRD (end stage renal disease) On peritoneal dialysis. Followed by Dr. Lora History of congestive heart failure History of MRSA infection Hyperlipidemia Hypertension Hypothyroidism Surgical History History of cholecystectomy History of lumbar surgery Due to epidural abscess in March 2018 Family History Mother Cancer Uterine and breast cancer Father Diabetes Other CAD (coronary artery disease) Social History Smoking and tobacco status: never smoked Alcohol intake: current Alcohol intake frequency: holidays/special occasions only Vitals/I&O/Wt Last Vital Signs Temp 98.1 F 05/13/20 12:00 Pulse 94 05/13/20 14:11 Resp 18 05/13/20 14:11 BP 129/73 05/13/20 12:00 Pulse Ox 98 05/13/20 14:11 05/12/20 05/13/20 05/13/20 22:59 06:59 14:59 Intake Total 4290 / 6820 2600 / 9420 480 / 480 Output Total 2400 / 4900 2700 / 7600 Balance 1890 / 1920 -100 / 1820 480 / 480 Weight last 48 hrs Weight 258 lb Physical Exam Narrative: EXAM NARRATIVE: GENERAL: Patient is alert and oriented ?3 and in no acute distress. The following is a focused bilateral lower extremity exam. VASCULAR: Dorsalis pedis and posterior tibial arteries faintly palpable likely secondary to edema. Capillary refill time less than 3 seconds to the distal hallux bilaterally. Calf is supple and nontender proximally and distally. Diminished hair growth at bilateral legs and feet. Grade 4 pitting edema to the lower extremities. NEUROLOGICAL: Protective sensation intact 0/10 sites, tested with [place]fina monofilament to bilateral feet. DERMATOLOGICAL: Indurated skin at the left ankle. Lower extremity integument is thin and atrophic has shiny appearance with decreased texture and turgor. There is dependent rubor to the left lower extremity without warmth. No proximal lymphangitic streaking. There is a [place] grade 1 wound at the medial aspect of the left instep limited to breakdown of skin, there is an epithelialized margin. No purulent drainage or warmth to this area. Toenails 1 through 5 bilaterally are elongated, thickened and discolored with subungual debris. MUSCULOSKELETAL: Ligamentous laxity and hypermobility at the left foot, tenderness to palpation about the left rear foot. Muscle strength is 5 out of 5 in all 3 cardinal planes to bilateral foot and ankle. Pes planus foot type. Data Micro: Micro: Microbiology 05/12/20 14:50 MRSA Culture - Fin al Nose 05/11/20 16:30 Blood Culture - Pr eliminary Blood NEGATIVE TO OTNIE E 05/11/20 16:28 Blood Culture - Pr eliminary Blood NEGATIVE TO TONIE E Other Data: Other data: Left ankle 3 views taken significant for fragmentation at the rear foot of the left lower extremity including the distal fibula, talus and calcaneus. There is dislocation of the subtalar joint, findings highly suggestive of Charcot arthropathy. CT scan left lower extremity significant for subcutaneous and soft tissue edema, lymphedema, extensive destruction and deformity with debris with comminuted fractures of the calcaneus, distal fibula and talus, dislocation of subtalar joint, degenerative changes at the medial malleolus, findings favor Charcot arthropathy, osteomyelitis unable to be ruled out or differentiated on CT scan. A&P Assessment and plan (1) Charcot's joint of foot in type 2 diabetes mellitus: Status: Acute (2) Diabetes: Status: Acute (3) Lymphedema of both lower extremities: Status: Acute Patient is a pleasant 59-year-old female with significant comorbidities no linda in HPI. Patient was examined and evaluated, findings and treatment options were discussed with patient at length. Inflammatory markers including CRP, ESR and procalcitonin are elevated. Given clinical exam and review of CT scan and plain film x-ray I do not believe that the left lower extremity is her most likely source for these elevated inflammatory markers. Findings more consistent with acute phase of Charcot arthropathy of the left rear foot, findings consistent with osteopenia, fragmentation and joint dislocation on imaging, clinically there is swelling, erythema and ligamentous laxity with hypermobility at the affected joints. There is a [place]el[place] grade 1 at the instep of the left rear foot which is limited to breakdown of skin epidermis only there is no full- thickness wound, no purulent drainage. Due to patient's body habitus and lymphedema she will be very challenging to offload. At this time she is to be nonweightbearing to the left lower extremity as she is high risk for development of wounds and further collapse of unstable rear foot. Left subtalar joint is completely dislocated and talus is medial to the calcaneus and displaced completely inferiorly. There are no signs of wound formation clinically corresponding to this bony deformity at this time however should she be weightbearing she will likely further collapse putting her at risk for wound formation. Recommending complete decongestive therapy for bilateral lower extremity edema with end goal been able to be brace able with Charcot restraint orthotic walker which would allow her to weight-bear for transfers and therapy. At this time she is not brace able due to grade 4 lymphedema. She currently dialyzes through peritoneal dialysis daily, she does have home health, will incorporate lymphedema wraps with current home health plan. Patient would benefit from wheelchair will discuss this with social media marketing specialist. She will need to utilize wheelchair until she could be fitted for a ALEKNAGIK walker. Educated patient on importance of elevating her feet while at rest and avoid long periods of gravity dependent positioning. No plans for surgical intervention as patient is not an operative candidate for reconstruction of her right foot deformity due to comorbidities and body habitus. Will continue to monitor for signs of acute infection, work-up favors Charcot arthropathy at this time to the left lower extremity. At this time bone biopsy would be more risk than benefit as this could be a nidus for infection / new portal of entry for possible infection. Patient to follow-up in podiatry clinic on outpatient basis, physical therapy performing lymphedema wraps during this hospitalization. Consult Attestations Medical Necessity Statement: Acute Charcot left lower extremity. Coding Level of Care Code Acute Computed Tomography Scanner Operator for Gregorio Thompson Diagnoses Charcot's joint of foot in type 2 diabetes mellitus E11.610 Diabetes E11.9 Lymphedema of both lower extremities I89.0
[2020-05-13 15:25] LABS: Erythropoietin 11.2 mIU/mL (2.6-18.5)
[2020-05-13] MEDS: benzonatate 100 mg Capsule PO ×2 (15:52→21:08)
[2020-05-13 16:54] LABS: Glucose Point of Care 134 mg/dL (70-110)
[2020-05-13] MEDS: Dianeal low Ca w/2.5% dex 2,000 mL Bag 1500 ML INTRAPERIT (17:16)
[2020-05-13] MEDS: ferrous sulfate EC 325 mg Tablet PO (17:16)
--- NOTE | 2020-05-13 20:47 | P.CONIM_ITS ---
Providers/Reason For Consult Consulting Physican/Specialty*: Dr. Gamble, Cardiology Reason for Consult*: Consult for ERIN to evaluate for endocarditis Attending Physician: Angel Baez MD Primary Care Provider: Karen Bear MD History of Present Illness History of Present Illness Alesia Shaw is a 59 year old female with a history of end-stage renal disease, on peritoneal dialysis, history of hypertension, type 2 diabetes, hypothyroidism and history of spinal abscess with MRSA for which she underwent surgical intervention in 2018 at the [facility] in [place]. After the antibiotic treatment, patient developed kidney failure ended up requiring peritoneal dialysis. She was hospitalized last month for possible aortic valve vegetation with blood culture grew MSSA, was transferred to [facility] per patient and family request. She was evaluated by CT surgery and conservative approach with treatment with antibiotics and follow up ERIN was recommended. She was discharged from the hospital on IV cefazolin regimen and was admitted for worsening left leg pain. She required 3 units of PRBC few days back. She has not noticed any bright bleed per rectum or dark-colored stools, she is denying hemoptysis or hematemesis. She has not been on anticoagulants. Visiting nurse today at home noted high temperature, patient was not sure whether it was 100.9 or 109F. Patient had EGD and colonoscopy in the past. She has occasional dysphagia. No history for any stomach ulcers. I have asked to evaluate her for repeat ERIN. Review of Systems General: Reports: 10 or more systems reviewed and unremarkable except in HPI and below Const: Reports: fever(s) and fatigue; Denies: chills ENMT: Denies: nasal congestion or epistaxis Card: Reports: edema; Denies: chest pain, syncope or pre-syncope Resp: Denies: productive cough or non-productive cough GI: Reports: nausea and vomiting; Denies: hematochezia : Denies: hematuria Musc: Reports: extremity swelling and joint pain Skin/Breast: Denies: rash Neuro: Denies: weakness in extremities or confusion Psych: Denies: anxiety or depression Jimmy/Lymph: Denies: petechiae or purpura Meds/Allergies Home Medications and Allergies Home Medications Medication Instructions Recorded Confirmed Last Taken Type levothyroxine 150 mcg tablet 150 mcg PO DAILY 04/02/20 05/11/20 05/11/20 History ergocalciferol (vitamin D2) 1,250 mcg PO DAILY 04/13/20 05/11/20 05/10/20 History insulin NPH and regular human See Rx Instructions .ROUTE .COMPLEX 04/13/20 05/11/20 05/06/20 History [Novolin 70/30 U-100 Insulin] vit B [id number]-[id number]-brgur ac-zinc 1 tab PO DAILY 04/13/20 05/11/20 05/11/20 History [RenaPlex] cefazolin 1 g IM Q12H 05/07/20 05/11/20 05/11/20 History gentamicin 1 applic TOPICAL TID 05/07/20 05/11/20 05/11/20 History hydrocodone-acetaminophen 1 tab PO Q6H PRN #30 tab 05/11/20 Unknown Rx Allergies Allergy/AdvReac Type Severity Reaction Status Date / Time Iodinated Contrast Media Allergy ALGY-Hives Verified 05/11/20 15:27 Current Medications Current Medications Generic Name Dose Route Start Last Admin Trade Name Freq PRN Reason Stop Dose Admin Acetaminophen 650 mg 05/11/20 20:06 05/11/20 23:30 Tylenol PO 650 mg Q4H PRN Administration MILD PAIN OR INCREASE TEMP Hydrocodone Bitart/Acetaminophen 1 tab 05/11/20 19:20 05/13/20 00:12 [place] 5-325 Mg PO 1 tab Q4H PRN Administration MODERATE TO SEVERE PAIN Benzonatate 100 mg 05/13/20 15:00 05/13/20 15:52 Tessalon Pearls PO 100 mg TID SHELBY Administration Calcium Acetate 1,334 mg 05/13/20 12:00 05/13/20 17:16 Phoslo PO 1,334 mg TIDWM SHELBY Administration Ferrous Sulfate 325 mg 05/13/20 18:00 05/13/20 17:16 Ferrous Sulfate PO 325 mg BIDWM SHELBY Administration Cefazolin Sodium 1,000 mg/ 50 mls @ 100 mls/hr 05/11/20 22:00 05/13/20 09:06 Sodium Chloride IV 100 mls/hr Q12H SHELBY Administration Insulin Aspart 0 unit 05/11/20 21:00 05/13/20 16:54 Novolog SUBCUT Not Given WM&BEDTIME SHELBY Protocol Levofloxacin 500 mg 05/13/20 07:00 05/13/20 06:25 Levaquin PO 500 mg Q48H HSELBY Administration Protocol Levothyroxine Sodium 150 mcg 05/12/20 09:00 05/13/20 09:01 Synthroid PO 150 mcg DAILY SHELBY Administration Promethazine HCl 12.5 mg 05/13/20 07:48 05/13/20 15:52 Phenergan PO 12.5 mg Q6H PRN Administration NAUSEA Sodium Bicarbonate 650 mg 05/13/20 09:00 05/13/20 15:52 Sodium Bicarbonate PO 650 mg TID SHELBY Administration PFSH Acute PFSH: Medical History Atypical chest pain Congestive heart failure Diabetes Diabetes mellitus type 2, insulin-dependent ESRD (end stage renal disease) On peritoneal dialysis. Followed by Dr. Lora History of congestive heart failure History of MRSA infection Hyperlipidemia Hypertension Hypothyroidism Surgical History History of cholecystectomy History of lumbar surgery Due to epidural abscess in March 2018 Family History Mother Cancer Uterine and breast cancer Father Diabetes Other CAD (coronary artery disease) Social History Smoking and tobacco status: never smoked Alcohol intake: current Alcohol intake frequency: holidays/special occasions only Vitals/I&O/Wt Last Vital Signs Temp 99.0 F 05/13/20 15:54 Pulse 67 05/13/20 20:40 Resp 22 H 05/13/20 15:54 BP 134/75 05/13/20 15:54 Pulse Ox 97 05/13/20 20:40 05/13/20 05/13/20 05/13/20 06:59 14:59 22:59 Intake Total 2600 / 9420 480 / 480 240 / 720 Output Total 2700 / 7600 Balance -100 / 1820 480 / 480 240 / 720 Physical Exam Const: COMMON NORMALS: no acute distress, patient oriented x3 and alert G ENERAL APPEARANCE: cooperative, comfortable, well kempt and well hydrated HENMT: COMMON NORMALS: normocephalic, atraumatic, hearing grossly normal bilaterally and external ears normal HEAD & SCALP: normocephalic and atraumatic EXTERNAL EAR: Yes external ears normal Eye: COMMON NORMALS: Equal, round and reactive pupils present, EOMs intact bilaterally and conjunctivae normal GENERAL EYE: appearance normal, both eyes and all related structures ALIGNMENT: Yes alignment normal CONJUNCTIVA: Yes conjunctivae normal SCLERA: sclerae normal PUPIL: Yes Equal, round and reactive pupils present Neck/C-Spine: COMMON NORMALS: supple and no JVD CAROTIDS: Yes normal carotid upstroke Resp: COMMON NORMALS: clear to auscultation bilaterally AUSCULTATION: clear to auscultation bilaterally, no crackles, no rales, no rhonchi and no wheezes Cardio: COMMON NORMALS: no JVD, regular rate, regular rhythm, S1 normal heart sound present, S2 normal heart sound present and Peripheral pulses 2+ throughout PALPATION: normal PMI RATE: regular rate RHYTHM: regular rhythm HEART SOUNDS: S1 normal heart sound present, S2 normal heart sound present, no gallops and no murmurs BRUITS: no carotid bruits PERIPHERAL PULSES: Peripheral pulses 2+ throughout, radial pulses present, posterior tibial pulses present and dorsalis pedis present GI: COMMON NORMALS: Soft to palpation AUSCULTATION: Yes normoactive bowel sounds PALPATION: Yes Soft to palpation, No Tenderness to palpation present (GI), No Guarding due to palpation present (GI) and No Rigid due to palpation Extremity: GENERAL: Yes edema and No pallor Neuro: COMMON NORMALS: patient oriented x3, CN's II-XII intact bilaterally and no focal motor deficits SENSORIUM/ORIENTATION: Yes alert Psych: COMMON NORMALS: Normal thought process present and speech normal APPEARANCE: Yes well kempt SPEECH: Yes normal speech MOOD & AFFECT: Yes euthymic mood THOUGHT PROCESS: Normal thought process present Data Micro: Micro: Microbiology 05/12/20 14:50 MRSA Culture - Fin al Nose 05/11/20 16:30 Blood Culture - Pr eliminary Blood NEGATIVE TO TONIE E 05/11/20 16:28 Blood Culture - Pr eliminary Blood NEGATIVE TO TONIE E A&P Assessment and plan (1) Aortic valve endocarditis: Previous ERIN with mass that may represent IE. -On IV cefazolin, cultures negative here. -Will plan to follow up ERIN in am in OR. -Risks and benefit discussed with patient and she is agreeable for the procedure. Status: Acute (2) Hypertension: Status: Acute Qualifiers: Hypertension type: essential hypertension Qualified Code(s): I10 - Essential (primary) hypertension (3) ESRD (end stage renal disease): Status: Acute (4) Diabetes: Status: Acute Qualifiers: Diabetes mellitus type: type 2 Diabetes mellitus intermission coordinator insulin use: with intermediate use Additional A&P Information Anemia Metabolic acidosis Thank you for allowing me to participate in patient's care. Please feel free to call with questions or concerns. Consult Attestations Medical Necessity Statement: As per primary team Coding Level of Care Code Acute Recreational Vehicle Resort Manager for Gregorio Fwd Diagnoses Aortic valve endocarditis I35.8 Hypertension I10 Hypertension type: essential hypertension ESRD (end stage renal disease) N18.6 Diabetes E11.9 Diabetes mellitus type: type 2 Diabetes mellitus intermission coordinator insulin use: with intermediate use
[2020-05-14] VITALS (13 sets, daily range): BP systolic 111–170; BP diastolic 56–88; PULSE 86–100; RESP 14–20; TEMP 36.4–36.9; O2SAT 95–100
[2020-05-14] MEDS: Dianeal low Ca w/2.5% dex 2,000 mL Bag 1500 ML INTRAPERIT ×4 (00:15→23:15)
--- NOTE | 2020-05-14 00:18 | PC.NURSE ---
Performed peritoneal dialysis using aseptic technique. Removed 1900ml of clear, pale yellow fluid. Re-instilled 1500ml of dialysis fluid as ordered. Patient c/o mild nausea at present. Denies other needs. No other distressed observed.
[2020-05-14 00:54] LABS: Glucose Point of Care 167 mg/dL (70-110)
[2020-05-14 03:39] LABS: Basophils # 0.1 10^3/uL (0.0-0.1); Basophils % 0.7 %; Eosinophils # 0.6 10^3/uL (0.0-0.8); Eosinophils % 5.1 %; Hematocrit 23.4 % (37.0-47.0); Hemoglobin 7.1 g/dL (11.5-15.3); Lymphocytes % 8.6 %; Mean Corpuscular HGB Conc 30.3 g/dL (30.0-36.0); Mean Corpuscular Volume 105.4 fL (81-99); Mean Platelet Volume 8.4 fL (7.4-10.4); Monocytes # 1.1 10^3/uL (0.2-0.9); Monocytes % 9.4 %; Neutrophils # 8.2 10^3/uL (1.8-7.7); Neutrophils % 71.4 %; Nucleated Red Blood Cells % 0 %; Platelet Count 390 10^3/cmm (130-400); Red Blood Count 2.22 10^6/uL (4.1-5.3); Red Cell Distribution Width 15.9 % (12.1-15.1); White Blood Count 11.5 10^3/uL (4.0-10.0)
[2020-05-14 04:01] LABS: Alanine Aminotransferase < 5 U/L (0-33); Albumin Level 1.8 g/dL (3.5-5.2); Alkaline Phosphatase 98 IU/L (35-105); Anion Gap 22.9 (5-19); Aspartate Amino Transferase 15 U/L (0-32); Calcium 7.7 mg/dL (8.5-10.5); Carbon Dioxide 22 mmol/L (22-29); Chloride 91 mmol/L (98-107); Globulin 4.8 g/dL (1.3-4.6); Glomerular Filtration Rate 3.2 mL/min (90-130); Glucose 139 mg/dL (65-115); Osmolality Calculated 275 mOsm/kg (285-295); Potassium 4.9 mmol/L (3.5-5.1); Sodium 131 mmol/L (136-145); Total Bilirubin 0.2 mg/dL (0.15-1.2); Total Protein 6.6 g/dL (6.6-8.7)
[2020-05-14 04:07] LABS: Creatinine Clr Calc Pharmacy 6.6173
[2020-05-14 04:08] LABS: Blood Urea Nitrogen 97 mg/dL (6-20)
[2020-05-14] MEDS: ondansetron 2 mg/ML SDV 2 mL 4 MG IVP ×2 (04:27→08:43)
--- NOTE | 2020-05-14 04:35 | PC.NURSE ---
Nausea/vomiting Patient c/o severe nausea with vomiting. Emesis is a moderate amount of clear fluid. Patient stated, I can't take Zofran because it makes me act crazy. Reports not being able to keep down anything. Informed Dr Hooks of patient condition and received a verbal order which was read back and verified for a one time dose of Phenergan 12.5mg IM. Instructed patient on use of IM medication to include side effects. Patient agreed to take the IM and expressed complete understanding of all instruction. Patient requested to have dialysis fluids drained at this time to have some relief if possible and is refusing to have re-instilled for now. Patient stated, I am just overwhelmed with everything and I need a break. I am tired of feeling sick to my stomach constantly.
[2020-05-14] MEDS: promethazine 25 mg/mL SDV 1 mL 12.5 MG IM (04:43)
--- NOTE | 2020-05-14 04:48 | PC.NURSE ---
Peritoneal Dialysis Patient refusing to have PD fluid instilled at this time, agreeable to have 1100 dose instilled Continues to feel sick to her stomach and just wants a break. PD fluids drained presently. Patient had 2100ml return of pale yellow diasylate.
--- NOTE | 2020-05-14 04:56 | PC.NURSE ---
Refusing [address] dose of dialysis In[address] Dr Hooks of patient's refusal to have this dose of dialysis given at this time. Patient is agreeable to have 1100 dose given. is okay and reports to let her have a break.
[2020-05-14 06:38] LABS: Glucose Point of Care 159 mg/dL (70-110)
--- NOTE | 2020-05-14 07:27 | USCV_ITS ---
Alesia Shaw Age: 59 Gender: F : 1960 Exam Date: 05/14/2020 12:32 Ordering Phys: Allison Gamble MD ([email or web address]) Technologist: Peter Javier Exam Location: [facility] [place] Indication: ENDOCARDITIS BP: / HR: Rhythm: Sinus Technical Quality: Adequate MEASUREMENTS (Male / Female) Normal Values Medications Patient received IV sedation by anesthesia. Please refer to the anesthesia report for details. Complications Intubation attempts x3, difficult intubation with known history of esophageal narrowing (no esophageal stricture). No blood on probe post procedure. No periprocedural complications. Proc. Components Multiple images were obtained at mid esophageal level. FINDINGS Left Ventricle Normal left ventricular size, systolic function with no regional wall motion abnormalities. Left ventricular ejection fraction is estimated at 65 %. Right Ventricle Normal right ventricular size and systolic function. Right Atrium Normal right atrial size. Left Atrium Normal left atrial size. LA Appendage Normal left atrial appendage. Normal flow velocities in the left atrial appendage. No thrombus visualized in the left atrial appendage. IA Septum Normal interatrial septum. No patent foramen ovale. No evidence for an atrial septal defect. Mitral Valve Structurally normal mitral valve. Trace mitral valve regurgitation. Evidence of vegetation on mitral valve. Aortic Valve Thickened trileaflet aortic valve. Thickening is more pronounced in noncoronary and left cusps. No aortic valve stenosis. Trace aortic valve regurgitation. No evidence of vegetation on aortic valve. Tricuspid Valve Structurally normal tricuspid valve. Mild tricuspid valve regurgitation. No evidence of vegetation on tricuspid valve. Pulmonic Valve Structurally normal pulmonic valve. Trace pulmonary valve regurgitation. No evidence of vegetation on pulmonary valve. Pericardium No pericardial effusion. Aorta Normal size aortic root and proximal ascending aorta. No evidence of aortic dilation, aneurysm or dissection. CONCLUSIONS 1. Normal left ventricular size, systolic function with no regional wall motion abnormalities. Left ventricular ejection fraction is estimated at 65 %. 2. Thickened trileaflet aortic valve. Thickening is more pronounced in noncoronary and left cusps. Trace aortic valve regurgitation. No evidence of vegetation on aortic valve. 3. The possible vegetation noted on aortic valve on previous study from 04/17/2020 seems to be just thickening of the cusps rather than true vesgetation. 4. No evidence of infective endocarditis. Findings of the study were discussed with the primary team. Allison Gamble MD (Electronically Signed) Final Date: 14 May 2020 17:28 S
[2020-05-14] MEDS: levothyroxine 150 mcg Tablet PO (08:35)
[2020-05-14] MEDS: ceFAZolin 1,000 MG in sodium chloride 0.9% (plus) 50 ML 100 MG IV ×2 (09:59→21:33)
--- NOTE | 2020-05-14 10:56 | PM.PN ---
Subjective Subjective: Interval history: Feels ok, no overt uremic Sx at this time. Still has heavy LE edema, no pain. Eating and drinking ok. Vitals/I&O/Wt Last Vital Signs Temp 98.4 F 05/14/20 07:59 Pulse 100 05/14/20 07:59 Resp 17 05/14/20 07:59 BP 113/87 05/14/20 07:59 Pulse Ox 97 05/14/20 07:59 05/13/20 05/14/20 05/14/20 22:59 06:59 14:59 Intake Total 290 / 820 1500 / 2320 Output Total 4000 / 4000 Balance 290 / 820 -2500 / -1680 Physical Exam Narrative: EXAM NARRATIVE: Exam performed with the aid of the bedside RN S1, S2 no murmur Abdomen soft nontender, peritoneal dialysis catheter without any signs of drainage or signs of abdominal wall infection She has pressure stage I ulcer on her back on admission, Left lower extremity hyperemia without any purulent drainage however I see some skin breakdown at plantar side of the foot Profuse pitting edema Awake alert oriented x3 GCS 15 EOMI, PERRLA Neurological nonfocal exam Lungs are clear to auscultation Const: ORIENTATION/CONSCIOUSNESS: Yes oriented to person, Yes oriented to place and Yes oriented to time Eye: COMMON NORMALS: Equal, round and reactive pupils present, EOMs intact bilaterally, conjunctivae normal and no scleral icterus CONJUNCTIVA: Yes conjunctivae normal PUPIL: Yes Equal, round and reactive pupils present Neck/C-Spine: COMMON NORMALS: full ROM, no lymphadenopathy, supple and no JVD Lymph: LYMPHATIC: no lymphadenopathy noted and no lymphedema noted Resp: COMMON NORMALS: normal respiratory effort, No retractions, No use of accessory muscles and clear to auscultation bilaterally AUSCULTATION: clear to auscultation bilaterally Cardio: COMMON NORMALS: no JVD, regular rate, regular rhythm and No murmurs present (Cardio) RATE: regular rate RHYTHM: regular rhythm GI: COMMON NORMALS: Soft to palpation and No hepatosplenomegaly present AUSCULTATION: Yes normoactive bowel sounds PALPATION: Yes Soft to palpation, No Tenderness to palpation present (GI), No Guarding due to palpation present (GI) and Yes No hepatosplenomegaly present Neuro: SENSORIUM/ORIENTATION: Yes oriented to person, Yes oriented to place and Yes oriented to time Skin: COMMON NORMALS: no rashes or lesions noted GENERAL SKIN EXAM: no rashes or lesions noted Data : 05/14/20 03:30 05/14/20 03:30 Micro: Microbiology 05/12/20 14:50 MRSA Culture - Final Nose A&P Additional A&P Information 1. ESRD - At home she was receiving only once daily PD exchange, 2L over 6hrs; this would rely on a reasonable grayling kidney function, which is now likely that she has lost - reduce volume to 1.5L Q6 as we continue to tweak prescription, something that can tolerate; I have discussed with Dr Lora, she may need to transition to hemodialysis for a period of time - D/w outpatient PD nurse, [facility], who will ook into training her on night time cycler ([facility]) - avoid the usual nephrotoxins - dose meds for eGFR < 15 on dialysis 2. Hyperphos - on phoslo - dietary conuseling 3. Anemia - s/p EPO 05/12 - iron levels look good 4. ID - Possible LE cellulitis; Bactrim for MRSA coverage and continue cefazolin for her MSSA endocarditis Thanks, please call with any concerns; [phone] Attestations Medical Necessity Statement*: eval for ESRD mgmt Coding Level of Care Code Acute Career Transition Specialist for Gregorio Thompson
[2020-05-14 10:59] LABS: Lactate Dehydrogenase 323 U/L (135-214)
[2020-05-14] MEDS: ondansetron 2 mg/ML SDV 2 mL 8 MG IVP (11:49)
[2020-05-14 11:50] LABS: Glucose Point of Care 132 mg/dL (70-110)
[2020-05-14] MEDS: sodium chloride 0.9% (100 ml) 100 ML (11:50)
--- NOTE | 2020-05-14 12:07 | PC.NURSE ---
patient taken to OR for ERIN via gurney. continued vital signs and monitoring will continue with OR staff.
--- NOTE | 2020-05-14 12:24 | P.ANESASSM_ITS ---
Pre-Anesthetic Assessment Pre-Anesthetic Assessment: Height/Weight: Height 1.69 m Weight 117.027 kg Temp Pulse Resp BP Pulse Ox 98.2 F 94 18 132/69 98 05/14/20 11:53 05/14/20 11:53 05/14/20 11:53 05/14/20 11:53 05/14/20 11:53 Preop Diagnosis: IE Proposed Procedure: Operation Date: 05/14/20 12:05 Proposed Procedures p ERIN(Not Applicable) - Allison Gamble MD s EGD(Not Applicable) - Eros Jorgensen MD Operation Date: 05/14/20 12:00 Proposed Procedures p ERIN (Transesophageal Echocardiogram)(Not Applicable) - Allison Gamble MD Familial anesthetic complications: None Was Beta Cristo taken within 24 hours: N/A Last intake: NPO > 8 hrs Social: Social History: No alcohol and No tobacco Exam: Pre-Anes Outpt Exam: alert, oriented x 3, clear to auscultation bilaterally and regular rate & rhythm Airway: Cervical ROM: WNL MP: 4 Dentition: Full Additional comments: currrently N/V getting zofran, phenergan large tongue Pulmonary: Pulmonary: ARANGO CV/HEM: CV/HEM: Anemia (getting prbcs), CHF and HTN Comments: echo - EF 65% IE? lymphedema : : Chronic renal failure Comments: peritoneal dialysis Metabolic: Metabolic: DM, Morbid obesity and Thyroid Anesthetic Plan: ASA status: 4 Anesthesia: General Risk of > 500 ml bl ood loss (7ml/kg in children): No Meds/Allergies Current Medications: Current Medications Generic Name Dose Route Start Last Admin Trade Name Freq PRN Reason Stop Dose Admin Acetaminophen 650 mg 05/11/20 20:06 05/11/20 23:30 Tylenol PO 650 mg Q4H PRN Administration MILD PAIN OR INCR EASE TEMP Hydrocodone Bitart /Acetaminophen 1 tab 05/11/20 19:20 05/13/20 00:12 [place] 5-325 Mg PO 1 tab Q4H PRN Administration MODERATE TO SEVER E PAIN Benzonatate 100 mg 05/13/20 15:00 05/14/20 08:46 Tessalon Pearls PO Not Given TID SHELBY Calcium Acetate 1,334 mg 05/13/20 12:00 05/14/20 11:10 Phoslo PO Not Given TIDWM SHELBY Ferrous Sulfate 325 mg 05/13/20 18:00 05/14/20 08:45 Ferrous Sulfate PO Not Given BIDWM SHELBY Cefazolin Sodium 1 ,000 mg/ 50 mls @ 100 mls/ hr 05/11/20 22:00 05/14/20 09:59 Sodium Chloride IV 100 mls/hr Q12H SHELBY Administration Insulin Aspart 0 unit 05/11/20 21:00 05/14/20 11:50 Novolog SUBCUT Not Given WM&BEDTIME SHELBY Protocol Levofloxacin 500 mg 05/13/20 07:00 05/13/20 06:25 Levaquin PO 500 mg Q48H SHELBY Administration Protocol Levothyroxine Sodi um 150 mcg 05/12/20 09:00 05/14/20 08:35 Synthroid PO 150 mcg DAILY SHELBY Administration Ondansetron HCl 8 mg 05/14/20 09:33 05/14/20 11:49 Zofran IVP 8 mg Q6H PRN Administration NAUSEA AND VOMITI NG Peritoneal Dialysi s Solution 1,500 ml 05/13/20 23:00 05/14/20 10:30 Dianeal Low Ca W /2.5% Dex INTRAPERIT 1,500 ml Q6H SHELBY Administration Sodium Bicarbonate 650 mg 05/13/20 09:00 05/14/20 08:34 Sodium Bicarbona te PO Not Given TID SHELBY PFSH Anesthesia PFSH: Medical History Atypical chest pain Congestive heart failure Diabetes Diabetes mellitus type 2, insulin-dependent ESRD (end stage renal disease) On peritoneal dialysis. Followed by Dr. Lora History of congestive heart failure History of MRSA infection Hyperlipidemia Hypertension Hypothyroidism Surgical History History of cholecystectomy History of lumbar surgery Due to epidural abscess in March 2018 Family History Mother Cancer Uterine and breast cancer Father Diabetes Other CAD (coronary artery disease) Social History Smoking and tobacco status: never smoked Alcohol intake: current Alcohol intake frequency: holidays/special occasions only Data Anesthesia CBC & Chem 7: 05/14/20 03:30 05/14/20 03:30 Other Labs: Laboratory Results - last 48 hr 05/11/20 05/12/20 05/12/20 22:10 04:48 11:00 WBC RBC Hgb Hct MCV MCH MCHC RDW Plt Count MPV Neut % (Auto) Lymph % (Auto) [place] % (Auto) Eos % (Auto) Baso % (Auto) Neut # (Auto) Lymph # (Auto) [place] # (Auto) Eos # (Auto) Baso # (Auto) Nucleated RBC % (auto) Nucleated RBCs # Haptoglobin Sodium Potassium Chloride Carbon Dioxide Anion Gap BUN Creatinine GFR Calculation Glucose POC Glucose Calculated Osmolality Calcium Phosphorus Magnesium Erythropoietin 11.2 Total Bilirubin AST ALT Alkaline Phosphatase Lactate Dehydrogenase Total Protein Albumin Globulin Nasal/Oral COVID-19 PCR Not detected Blood Type A Positive Rho(D) Type Positive Antibody Screen Negative Crossmatch See Detail 05/12/20 05/12/20 05/13/20 16:20 20:33 03:32 WBC 10.3 H RBC 2.31 L Hgb 7.3 L Hct 23.6 L MCV 102.2 H MCH 31.6 MCHC 30.9 RDW 16.2 H Plt Count 392 MPV 8.8 Neut % (Auto) 66.0 Lymph % (Auto) 10.1 [place] % (Auto) 10.6 Eos % (Auto) 8.0 Baso % (Auto) 0.6 Neut # (Auto) 6.8 Lymph # (Auto) 1.0 [place] # (Auto) 1.1 H Eos # (Auto) 0.8 Baso # (Auto) 0.1 Nucleated RBC % (auto) 0 Nucleated RBCs # 0.0 Haptoglobin Sodium Potassium Chloride Carbon Dioxide Anion Gap BUN Creatinine GFR Calculation Glucose POC Glucose 146 213 Calculated Osmolality Calcium Phosphorus Magnesium Erythropoietin Total Bilirubin AST ALT Alkaline Phosphatase Lactate Dehydrogenase Total Protein Albumin Globulin Nasal/Oral COVID-19 PCR Blood Type Rho(D) Type Antibody Screen Crossmatch 05/13/20 05/13/20 05/13/20 03:32 03:32 06:04 WBC RBC Hgb Hct MCV MCH MCHC RDW Plt Count MPV Neut % (Auto) Lymph % (Auto) [place] % (Auto) Eos % (Auto) Baso % (Auto) Neut # (Auto) Lymph # (Auto) [place] # (Auto) Eos # (Auto) Baso # (Auto) Nucleated RBC % (auto) Nucleated RBCs # Haptoglobin Sodium 132 L Potassium 4.9 Chloride 92 L Carbon Dioxide 19 L Anion Gap 25.9 H BUN 100 H* Creatinine 12.2 H* GFR Calculation 3.2 L Glucose 135 H POC Glucose 178 Calculated Osmolality 277 L Calcium 7.5 L Phosphorus 8.2 H* Magnesium 1.9 Erythropoietin Total Bilirubin 0.2 AST 17 ALT < 5 Alkaline Phosphatase 103 Lactate Dehydrogenase Total Protein 6.6 Albumin 1.7 L Globulin 4.9 H Nasal/Oral COVID-19 PCR Blood Type Rho(D) Type Antibody Screen Crossmatch 05/13/20 05/13/20 05/13/20 11:24 16:50 21:03 WBC RBC Hgb Hct MCV MCH MCHC RDW Plt Count MPV Neut % (Auto) Lymph % (Auto) [place] % (Auto) Eos % (Auto) Baso % (Auto) Neut # (Auto) Lymph # (Auto) [place] # (Auto) Eos # (Auto) Baso # (Auto) Nucleated RBC % (auto) Nucleated RBCs # Haptoglobin Sodium Potassium Chloride Carbon Dioxide Anion Gap BUN Creatinine GFR Calculation Glucose POC Glucose 158 134 167 Calculated Osmolality Calcium Phosphorus Magnesium Erythropoietin Total Bilirubin AST ALT Alkaline Phosphatase Lactate Dehydrogenase Total Protein Albumin Globulin Nasal/Oral COVID-19 PCR Blood Type Rho(D) Type Antibody Screen Crossmatch 05/14/20 05/14/20 05/14/20 03:30 03:30 03:30 WBC 11.5 H RBC 2.22 L Hgb 7.1 L Hct 23.4 L MCV 105.4 H MCH 32.0 MCHC 30.3 RDW 15.9 H Plt Count 390 MPV 8.4 Neut % (Auto) 71.4 Lymph % (Auto) 8.6 [place] % (Auto) 9.4 Eos % (Auto) 5.1 Baso % (Auto) 0.7 Neut # (Auto) 8.2 H Lymph # (Auto) 1.0 [place] # (Auto) 1.1 H Eos # (Auto) 0.6 Baso # (Auto) 0.1 Nucleated RBC % (auto) 0 Nucleated RBCs # 0.0 Haptoglobin 183.0 Sodium 131 L Potassium 4.9 Chloride 91 L Carbon Dioxide 22 Anion Gap 22.9 H BUN 97 H* Creatinine 12.2 H* GFR Calculation 3.2 L Glucose 139 H POC Glucose Calculated Osmolality 275 L Calcium 7.7 L Phosphorus Magnesium Erythropoietin Total Bilirubin 0.2 AST 15 ALT < 5 Alkaline Phosphatase 98 Lactate Dehydrogenase 323 H Total Protein 6.6 Albumin 1.8 L Globulin 4.8 H Nasal/Oral COVID-19 PCR Blood Type Rho(D) Type Antibody Screen Crossmatch 05/14/20 05/14/20 06:29 11:09 WBC RBC Hgb Hct MCV MCH MCHC RDW Plt Count MPV Neut % (Auto) Lymph % (Auto) [place] % (Auto) Eos % (Auto) Baso % (Auto) Neut # (Auto) Lymph # (Auto) [place] # (Auto) Eos # (Auto) Baso # (Auto) Nucleated RBC % (auto) Nucleated RBCs # Haptoglobin Sodium Potassium Chloride Carbon Dioxide Anion Gap BUN Creatinine GFR Calculation Glucose POC Glucose 159 132 Calculated Osmolality Calcium Phosphorus Magnesium Erythropoietin Total Bilirubin AST ALT Alkaline Phosphatase Lactate Dehydrogenase Total Protein Albumin Globulin Nasal/Oral COVID-19 PCR Blood Type Rho(D) Type Antibody Screen Crossmatch Micro: Microbiology 05/12/20 14:50 MRSA Culture - Final Nose Cardiac Studies: No Data to Display
[2020-05-14] MEDS: sodium chloride 0.9% 1,000 ML 30 ML IV (12:26)
--- NOTE | 2020-05-14 12:37 | PM.PN ---
Subjective Subjective: Interval history: No events overnight. Patient seen multiple times today. Patient also seen post ERIN today. Tolerated pressure well. Extubated. Discussed in detail with patient that most likely most of her symptoms of difficulty in breathing, nausea is most likely from poorly controlled ESRD on her current schedule peritoneal dialysis. Also discussed that most likely she needs more aggressive peritoneal dialysis now. And if that peritoneal dialysis is not working she would most likely need hemodialysis. Vitals and labs noted. Patient has remained afebrile Vitals/I&O/Wt Last Vital Signs Temp 98.1 F 05/14/20 12:18 Pulse 92 05/14/20 12:18 Resp 18 05/14/20 12:18 BP 137/73 05/14/20 12:18 Pulse Ox 97 05/14/20 12:18 05/13/20 05/14/20 05/14/20 22:59 06:59 14:59 Intake Total 290 / 820 1500 / 2320 0 / 0 Output Total 4000 / 4000 Balance 290 / 820 -2500 / -1680 0 / 0 Physical Exam Narrative: EXAM NARRATIVE: General: Obese obese female sitting comfortably in her bed Cardiac:S1, S2 regular, early diastolic murmur present in the aortic area soft, no gallop, JVD normal, no tachycardia Abdomen: Soft nontender, peritoneal dialysis catheter without any signs of drainage or signs of abdominal wall infection, bowel sounds present She has pressure stage I ulcer on her back on admission, Extremity: Left lower extremity hyperemia without any purulent drainage however I see some skin breakdown at plantar side of the foot Dorsalis pedis pulse palpable bilaterally Profuse pitting edema Neuro: Awake alert oriented x3 GCS 15, EOMI, PERRLA Neurological nonfocal exam Lungs: Normal vesicular breath sounds, bilaterally decreased air breath sounds clear to auscultation. Data : 05/14/20 03:30 05/14/20 03:30 Micro: Microbiology 05/12/20 14:50 MRSA Culture - Final Nose A&P Assessment and plan (1) Cellulitis: Status: Acute (2) Aortic valve endocarditis: Status: Acute (3) Lymphedema of both lower extremities: Status: Acute (4) Anemia: Status: Acute (5) History of congestive heart failure: Status: Acute (6) Peritoneal dialysis catheter in place: Status: Acute (7) ESRD (end stage renal disease): Status: Acute (8) Diabetes: Status: Acute (9) Atypical chest pain: Status: Acute (10) SOB (shortness of breath): Status: Acute Additional A&P Information Bilateral chronic lymphedema: Patient states her pain has been chronic but has been getting worse for last 2 to 3 days. Lower limb Dopplers negative for DVT. Lower limb CT scan consistent with Charcot's foot with possibility of osteomyelitis which cannot be ruled out because of extensive edema. ESR still more than [address] is [address] down[address] scan reviewed with Dr. Santana. Osteomyelitis unlikely. He is asking for plain film nonweightbearing. Will do x-ray of the foot and ankle. We will follow-up with recommendations regarding patient's weightbearing status, possible need of prosthesis. Appreciate Dr. Santana's recommendations. For possible cellulitis: Patient does not have any fever since admission but does report a fever of 101 low-grade fever of 99.8 on presentation to the ER but does not have any leukocytosis. Continue cefazolin which will cover for both MSSA endocarditis, levofloxacin for possible Pseudomonas. Will most likely need overall 5-day course. Bactrim discontinued yesterday as MRSA was negative. Lymphedema wraps. PT/OT evaluation. [place] aortic valve endocarditis: Currently getting treatment from with cefazolin 1 g IV every 12 hours. Underwent ERIN today. Tolerated well. To finish course of cefazolin on June 11. Shortness of breath: Improving. CT abdomen pelvis with chest negative for any fluid overload, infiltrate. COVID-19 negative. Shortness of breath most likely because of acidosis because of ESRD. Keep saturation over 92%. As her saturation is well-maintained on room air right now we will hold off on any IV diuresis for nebulization for now. Abnormal troponin Is chest pain-free, negative delta troponin, I believe this is secondary to chronic kidney disease, type II CT Serial troponin and EKG Monitoring in CSU Acute on chronic macrocytic anemia: Overall received 3 units PRBC in the last 1 week. Rec received Procrit in this admission. Vitamin B12, folate level, erythropoietin levels within normal limits. Most likely because of her anemia of chronic disease and chronic infection. We will transfuse 1 more unit of PRBC today as hemoglobin 7.1. End-stage renal disease: Dependent on peritoneal dialysis. Appreciate Dr. Yin's recommendation. Continue with sodium bicarbonate and PhosLo. Full code Renal on dialysis carb consistent diet, DVT prophylaxis: Heparin 5000 subcu every 12 hour. Attestations Medical Necessity Statement*: Infective endocarditis, ESRD, cellulitis Time Spent in Patient Care: Greater than 35 minutes (>than 50% of time spent in counselling and/or direct pt care on unit). Coding Level of Care Code Acute Ear Muff Assembler for [facility] Fwd Diagnoses Cellulitis L03.90 Aortic valve endocarditis I35.8 Lymphedema of both lower extremities I89.0 Anemia D64.9 History of congestive heart failure Z86.79 Peritoneal dialysis catheter in place Z99.2 ESRD (end stage renal disease) N18.6 Diabetes E11.9 Atypical chest pain R07.89 SOB (shortness of breath) R06.02
--- NOTE | 2020-05-14 13:09 | PC.NURSE ---
See anesthesias note for monitoring blood and vital signs.
--- NOTE | 2020-05-14 13:32 | SUR.PHASEI ---
1321 PT TO PACU AWAKE ALERT WITH GOOD RESP NOTED PT COUGHING UP LARGE AMTS CLEAR THICK SECRETIONS PT VERBALIZING AND ASKING QUESTIONS ISAC LEIJA IV TO RT SUBCLAVIAN PORT DUAL LUMEN NS AT KVO AND PRBC INFUSING PER PUMP [id number]
[2020-05-14] MEDS: ferrous sulfate EC 325 mg Tablet PO (16:29)
[2020-05-14] MEDS: calcium acetate 667 mg Capsule 1334 MG PO (16:29)
[2020-05-14 16:36] LABS: Glucose Point of Care 147 mg/dL (70-110)
--- NOTE | 2020-05-14 19:17 | PM.PN ---
Subjective Subjective: Interval history: PLan for ERIN today, Nausea this morning and no vomiting. Medications: Reviewed: Yes Vitals/I&O/Wt Last Vital Signs Temp 98.0 F 05/14/20 16:15 Pulse 87 05/14/20 16:15 Resp 18 05/14/20 16:15 BP 119/67 05/14/20 16:15 Pulse Ox 96 05/14/20 16:15 05/14/20 05/14/20 05/14/20 06:59 14:59 22:59 Intake Total 1500 / 2320 0 / 0 240 / 240 Output Total 4000 / 4000 0 / 0 Balance -2500 / -1680 0 / 0 240 / 240 Physical Exam Const: COMMON NORMALS: no acute distress, patient oriented x3 and alert GENERAL APPEARANCE: cooperative, comfortable and well hydrated HENMT: COMMON NORMALS: normocephalic, atraumatic, hearing grossly normal bilaterally and external ears normal HEAD & SCALP: normocephalic and atraumatic EXTERNAL EAR: Yes external ears normal Eye: COMMON NORMALS: Equal, round and reactive pupils present, EOMs intact bilaterally and conjunctivae normal GENERAL EYE: appearance normal, both eyes and all related structures ALIGNMENT: Yes alignment normal CONJUNCTIVA: Yes conjunctivae normal SCLERA: sclerae normal PUPIL: Yes Equal, round and reactive pupils present Neck/C-Spine: COMMON NORMALS: supple and no JVD CAROTIDS: Yes normal carotid upstroke Resp: COMMON NORMALS: clear to auscultation bilaterally AUSCULTATION: clear to auscultation bilaterally, no crackles, no rales and no wheezes Cardio: COMMON NORMALS: no JVD, regular rate, regular rhythm, S1 normal heart sound present and S2 normal heart sound present PALPATION: normal PMI RATE: regular rate RHYTHM: regular rhythm HEART SOUNDS: S1 normal heart sound present, S2 normal heart sound present and no murmurs PERIPHERAL PULSES: radial pulses present Extremity: GENERAL: Yes edema (bilateral 1-2+) and No pallor Neuro: COMMON NORMALS: patient oriented x3 and no focal motor deficits SENSORIUM/ORIENTATION: Yes alert Psych: COMMON NORMALS: speech normal SPEECH: Yes normal speech Data : 05/14/20 03:30 05/14/20 03:30 A&P Assessment and plan (1) Aortic valve endocarditis: Previous ERIN with mass that may represent IE without typical appearance of endocarditis. -On IV cefazolin, cultures negative here. -Reviewing and comparing the images it seems like the possible mass is likely just off axis visualization of thickened aortic valve leaflet. THERE IS NO EVIDENCE OF INFECTIVE ENDOCARDITIS on aortic or any other valves. -Recommend finishing 6 week course of antibiotics. -I will sign off. Follow up in office in 3-4 weeks. Status: Acute (2) Hypertension: Status: Acute Qualifiers: Hypertension type: essential hypertension Qualified Code(s): I10 - Essential (primary) hypertension (3) ESRD (end stage renal disease): Status: Acute (4) Diabetes: Status: Acute Qualifiers: Diabetes mellitus watermelon harvesting supervisor insulin use: with watermelon harvesting supervisor use Diabetes mellitus type: type 2 Additional A&P Information Anemia Metabolic acidosis Thank you for allowing me to participate in patient's care. Please feel free to call with questions or concerns. Attestations Medical Necessity Statement*: As per primary team. Procedures Time out/Consent Time Out Performed: Yes Consent for Procedure: Consent obtained from patient, Risks & Benefits reviewed and Agrees to proceed with procedure Procedure Narrative ERIN Indication: MSSA sepsis r/o endocarditis; f/u on possible aortic valve endocarditis. Sedation By anesthesia, Intubation difficult, Attempts x 3, no blood on probe post procedure. Prelim report: Normal LV size and function. Thickening of trileaflet aortic valve. THERE IS NO EVIDENCE OF INFECTIVE ENDOCARDITIS on aortic or any other valves. Full report to follow. Patient tolerated the procedure well and after initial recovery in PACU was transfered to the floor. Coding Level of Care Code Acute Slubber Frame Changer for Greg[facility] Thompson Diagnoses Aortic valve endocarditis I35.8 Hypertension I10 Hypertension type: essential hypertension ESRD (end stage renal disease) N18.6 Diabetes E11.9 Diabetes mellitus nursing home insulin use: with watermelon harvesting supervisor use Diabetes mellitus type: type 2
--- NOTE | 2020-05-14 20:30 | PC.NURSE ---
Received report from MARCIANO Whittington. Pt resting in bed with no complaints. See nursing assessment. BLE have lymphedema wraps on, no SCD's applied for this reason.
[2020-05-14] MEDS: sodium bicarbonate 650 mg Tablet PO (21:16)
[2020-05-14] MEDS: benzonatate 100 mg Capsule PO (21:16)
[2020-05-14 22:37] LABS: Glucose Point of Care 128 mg/dL (70-110)
[2020-05-15] VITALS: BP 133/68; PULSE 87; RESP 20; TEMP 36.6; O2SAT 97
[2020-05-15 04:00] VITALS: BP 125/62; PULSE 87; RESP 12; TEMP 36.8; O2SAT 97
[2020-05-15] MEDS: ondansetron 2 mg/ML SDV 2 mL 8 MG IVP (04:06)
[2020-05-15 04:58] LABS: Alanine Aminotransferase < 5 U/L (0-33); Albumin Level 2.1 g/dL (3.5-5.2); Alkaline Phosphatase 106 IU/L (35-105); Anion Gap 25.1 (5-19); Aspartate Amino Transferase 19 U/L (0-32); Blood Urea Nitrogen 80 mg/dL (6-20); Carbon Dioxide 22 mmol/L (22-29); Chloride 91 mmol/L (98-107); Globulin 5.7 g/dL (1.3-4.6); Glomerular Filtration Rate 3.2 mL/min (90-130); Glucose 134 mg/dL (65-115); Osmolality Calculated 278 mOsm/kg (285-295); Potassium 5.1 mmol/L (3.5-5.1); Sodium 133 mmol/L (136-145); Total Bilirubin 0.2 mg/dL (0.15-1.2); Total Protein 7.8 g/dL (6.6-8.7)
[2020-05-15] MEDS: Dianeal low Ca w/2.5% dex 2,000 mL Bag 1500 ML INTRAPERIT ×2 (05:34→11:31)
[2020-05-15 05:53] LABS: Basophils # 0.1 10^3/uL (0.0-0.1); Basophils % 0.6 %; Eosinophils # 0.4 10^3/uL (0.0-0.8); Eosinophils % 3.4 %; Hemoglobin 8.4 g/dL (11.5-15.3); Lymphocytes # 1.2 10^3/uL (0.8-4.8); Mean Corpuscular HGB Conc 31.1 g/dL (30.0-36.0); Mean Corpuscular Hemoglobin 31.2 pg (28.0-34.0); Mean Corpuscular Volume 100.4 fL (81-99); Mean Platelet Volume 8.6 fL (7.4-10.4); Monocytes # 1.1 10^3/uL (0.2-0.9); Monocytes % 8.7 %; Neutrophils # 8.9 10^3/uL (1.8-7.7); Nucleated Red Blood Cells % 0 %; Platelet Count 457 10^3/cmm (130-400); Red Blood Count 2.69 10^6/uL (4.1-5.3); Red Cell Distribution Width 15.9 % (12.1-15.1); White Blood Count 12.3 10^3/uL (4.0-10.0)
[2020-05-15 05:59] LABS: Slide Review Slide Review Perform
[2020-05-15] MEDS: levoFLOXacin 500 mg Tablet PO (06:21)
[2020-05-15 06:40] LABS: Glucose Point of Care 146 mg/dL (70-110)
[2020-05-15] MEDS: ferrous sulfate EC 325 mg Tablet PO (07:40)
[2020-05-15] MEDS: calcium acetate 667 mg Capsule 1334 MG PO (07:40)
[2020-05-15 08:00] VITALS: BP 121/71; PULSE 89; RESP 18; TEMP 37; O2SAT 97
[2020-05-15] MEDS: benzonatate 100 mg Capsule PO (08:42)
[2020-05-15] MEDS: levothyroxine 150 mcg Tablet PO (08:42)
[2020-05-15] MEDS: sodium bicarbonate 650 mg Tablet PO (08:42)
--- NOTE | 2020-05-15 10:12 | P.PN_ITS ---
Subjective Subjective: Interval history: Feels good, keen to go home. No overt uremic Sx. Chronic LE edema. No orthostatic Sx and her hemodynamics are stable Medications: Reviewed: Yes Vitals/I&O/Wt Last Vital Signs Temp 98.6 F 05/15/20 08:00 Pulse 89 05/15/20 08:00 Resp 18 05/15/20 08:00 BP 121/71 05/15/20 08:00 Pulse Ox 97 05/15/20 08:00 05/14/20 05/15/20 05/15/20 22:59 06:59 14:59 Intake Total 240 / 290 3170 / 3460 480 / 480 Output Total 0 / 0 4000 / 4000 Balance 240 / 290 -830 / -540 480 / 480 Weight last 48 hrs Weight 127.051 kg Physical Exam Narrative: EXAM NARRATIVE: Exam performed with the aid of the bedside RN S1, S2 no murmur Abdomen soft nontender, peritoneal dialysis catheter without any signs of drainage or signs of abdominal wall infection She has pressure stage I ulcer on her back on admission, Left lower extremity hyperemia without any purulent drainage however I see some skin breakdown at plantar side of the foot Profuse pitting edema Awake alert oriented x3 GCS 15 EOMI, PERRLA Neurological nonfocal exam Lungs are clear to auscultation Const: ORIENTATION/CONSCIOUSNESS: Yes oriented to person, Yes oriented to place and Yes oriented to time Eye: COMMON NORMALS: Equal, round and reactive pupils present, EOMs intact bilaterally, conjunctivae normal and no scleral icterus CONJUNCTIVA: Yes conjunctivae normal PUPIL: Yes Equal, round and reactive pupils present Neck/C-Spine: COMMON NORMALS: full ROM, no lymphadenopathy, supple and no JVD Lymph: LYMPHATIC: no lymphadenopathy noted and no lymphedema noted Resp: COMMON NORMALS: normal respiratory effort, No retractions, No use of accessory muscles and clear to auscultation bilaterally AUSCULTATION: clear to auscultation bilaterally Cardio: COMMON NORMALS: no JVD, regular rate, regular rhythm and No murmurs present (Cardio) RATE: regular rate RHYTHM: regular rhythm GI: COMMON NORMALS: Soft to palpation and No hepatosplenomegaly present AUSCULTATION: Yes normoactive bowel sounds PALPATION: Yes Soft to palpation, No Tenderness to palpation present (GI), No Guarding due to palpation present (GI) and Yes No hepatosplenomegaly present Neuro: SENSORIUM/ORIENTATION: Yes oriented to person, Yes oriented to place and Yes oriented to time Skin: COMMON NORMALS: no rashes or lesions noted GENERAL SKIN EXAM: no rashes or lesions noted Data : 05/15/20 04:03 05/15/20 04:03 A&P Additional A&P Information 1. ESRD - At home she was receiving only once daily PD exchange, 2L over 6hrs; this would rely on a reasonable [place] kidney function, which is now likely that she has lost - D/w outpatient PD nurse, Oseas, who will look into training her on night time cycler ([facility]); this was also relayed to Dr Lora - avoid the usual nephrotoxins - dose meds for eGFR < 15 on dialysis 2. Hyperphos - on phoslo - dietary conuseling 3. Anemia - s/p EPO 05/12 - iron levels look good 4. ID - Possible LE cellulitis; Bactrim for MRSA coverage and continue cefazolin for her MSSA endocarditis; ERIN negative; to finish Abx for this - home today, ok with me Thanks, please call with any concerns; [phone] Attestations Medical Necessity Statement*: ESRD mgmt Coding Level of Care Code Acute Tugboat Mate for Gregorio Thompson
--- NOTE | 2020-05-15 10:28 | P.DS_ITS ---
Discharge Providers Date of Admission: 05/11/20 18:13 Date of Discharge: May 15, 2020 Attending Provider at Admission: Angel Baez MD Attending Provider at Discharge: Angel Baez MD Consults: Cardiology: Dr. Gamble Telemetry nephro: Dr. Yin Podiatry: Dr. Santana Primary Care Provider: Karen Bear MD Diagnoses at Discharge Discharge Diagnosis (1) Aortic valve endocarditis: Status: Acute (2) Hypertension: Status: Acute Qualifiers: Hypertension type: essential hypertension Qualified Code(s): I10 - Essential (primary) hypertension (3) ESRD (end stage renal disease): Status: Acute Problem details: On peritoneal dialysis. Followed by Dr. Lora (4) Diabetes: Status: Acute Problem details: Diabetes mellitus type 2, insulin-dependent Qualifiers: Diabetes mellitus [employer] insulin use: with [employer] use Diabetes mellitus type: type 2 Reason for Visit Reason for Visit: SWOLLEN LEFT FOOT Hospital Course Discharge Summary: Alesia Shaw is a 59 year old female who carries history of end-stage renal disease on peritoneal dialysis, diastolic congestive heart failure, diabetes hypothyroidism history of epidural abscess sepsis from infective endocarditis, aortic valve vegetation blood culture grew MSSA, was transferred to [facility] for further work-up, she was discharged from the hospital on IV cefazolin regimen coming in today for worsening left leg pain. Patient is stating that her assist her with peritoneal dialysis and IV antibiotics. She required 2 units of PRBC few days back. She has not noticed any bright bleed per rectum or dark-colored stools, she is denying hemoptysis or hematemesis. She has not been on anticoagulants. For last few days she has been noticing pain in her left leg, today it has gotten worse, her left foot looks more swollen and red, she did not notice any purulent drainage, she is not able to ambulate because of pain and increased swelling. Visiting nurse today at home noted high temperature, patient is not sure whether it was 100.9 or 109F. She is denying chills, but is endorsing nausea, one episode of vomiting and 2-3 liquidy bowel movements today. Patient was admitted to the floor with working diagnosis of possible osteomyelitis left ankle and CT foot was done. Patient's antibiotics were broadened to cover for MRSA, Pseudomonas. CT foot showed extensive destruction, deformity and debris with comminuted fractures of the calcaneus, distal fibula and talus. Densities and osteomyelitis could not be ruled out because of exten sive edema. ESR and CRP were rechecked and came down to be lower than 1 done on previous admission a month ago. Podiatry was consulted and CT scan was reviewed. As per podiatry recommendation patient most likely does not have osteomyelitis and changes in pain is most likely because of chronic fibular fracture/Charcot's foot. Because of downtrending CRP along with podiatry recommendation along with patient being on cefazolin for last 6 weeks chances of osteomyelitis is very low. Patient's MRSA came back negative so Bactrim was discontinued. Patient's blood work done in the ER admission was consistent with chronically elevated creatinine with new metabolic acidosis. It was thought to be because of inadequate peritoneal dialysis sessions. Nephrology was consulted and peritoneal dialysis was adjusted. She supposed to do 1.5 L exchanges at least 4 times a day. She tolerated the change well. Patient symptoms of nausea, difficulty in breathing, mild acidosis were thought to be because of inadequate treatment for ESRD. It was discussed in detail with patient and her family along with multiple education and counseling that patient most likely require more aggressive peritoneal dialysis for adequate treatment. Shortness of breath: Multiple etiologies were entertained. As patient's imaging remained clear pneumonia and CHF was ruled out. VQ scan was done which is negative for PE because patient was recently [place] around with episodes of fever since discharge COVID-19 was tested and was ruled out as well. Shortness of breath is most likely because of chronic acidosis because of ESRD. Her breathing pattern and shortness of breath improved once acidosis was improving as well. Infective endocarditis: Because patient was scheduled for ERIN as an outpatient on May 20 patient underwent ERIN during this hospitalization as she was deemed stable and COVID 19 was negative. ERIN done on this admission showed a normal EF with normal ventricular size, thickened trileaflet aortic valve which is more pronounced on noncoronary and left carbs trace AI, with no evidence of vegetation. ERIN reveals no evidence of infective endocarditis. Overall it is believed that patient symptoms are most likely because of inadequate dialysis for ESRD. Her symptoms improved once he started having aggressive dialysis. Her pain in the foot is most likely because of chronic fibular fracture. She is advised to follow-up with Dr. Santana as an outpatient. She is also advised to have a prosthetic boot fitting done once her lower limb swelling reduces. She is advised to follow-up with Dr. Santana as an outpatient. For possible infective endocarditis patient did have multiple blood cultures positive for MSSA with last blood culture being positive in April 22. Patient has multiple sources of possible infection including history of epidural abscess/discitis, possible endocarditis possible osteomyelitis but endocarditis was ruled out on this ERIN done on May 14. Discitis/epidural abscess was ruled out on MRI back done before. For now the best treatment plan would be to finish the antibiotic course for MSSA bacteremia till June 01. Patient is to continue IV antibiotics with home health as before. Patient is been discharged hemodynamically stable Physical Exam Narrative: EXAM NARRATIVE: General: Obese obese female sitting comfortably in her bed Cardiac:S1, S2 regular, early diastolic murmur present in the aortic area soft, no gallop, JVD normal, no tachycardia Abdomen: Soft nontender, peritoneal dialysis catheter without any signs of drainage or signs of abdominal wall infection, bowel sounds present She has pressure stage I ulcer on her back on admission, Extremity: Left lower extremity hyperemia without any purulent drainage however I see some skin breakdown at plantar side of the foot Dorsalis pedis pulse palpable bilaterally Profuse pitting edema Neuro: Awake alert oriented x3 GCS 15, EOMI, PERRLA Neurological nonfocal exam Lungs: Normal vesicular breath sounds, bilaterally decreased air breath sounds clear to auscultation. Discharge Data Data Completed and Pending: Completed Studies During Hospitalization Category Date Time Status CT chest abd pel wo con Routine Cat Scan 05/13/20 09:[address] lower leg LT w o con* [id number] Stat Cat Scan 05/11/20 20:06 Completed XR ankle LT min 3 V* [id number] Routine Exams 05/13/20 07:38 Completed XR chest 1V pierce ble [id number] Stat Exams 05/11/20 15:59 Completed NM pul vent and p erfus* [id number] Routi ne Nuc Med 05/12/20 20:25 Completed CV echo limited 9 3308 Routine Ultrasound 05/13/20 10:36 Completed CV echo transesop hageal [id number] Routi ne Ultrasound 05/14/20 07:27 [place] [id number] Urgent Ultrasound 05/11/20 17:00 Completed Pending at discharge Category Date Time Status Blood Culture Sta t Lab 05/11/20 16:30 Results Labs from last 24 hours 05/15/20 05/15/20 05/15/20 06:24 04:03 04:03 WBC 12.3 H RBC 2.69 L Hgb 8.4 L Hct 27.0 L MCV 100.4 H MCH 31.2 MCHC 31.1 RDW 15.9 H Plt Count 457 H MPV 8.6 Neut % (Auto) 72.0 Lymph % (Auto) 10.0 [place] % (Auto) 8.7 Eos % (Auto) 3.4 Baso % (Auto) 0.6 Neut # (Auto) 8.9 H Lymph # (Auto) 1.2 [place] # (Auto) 1.1 H Eos # (Auto) 0.4 Baso # (Auto) 0.1 Nucleated RBC % (a uto) 0 Nucleated RBCs # 0.0 Haptoglobin Sodium 133 L Potassium 5.1 Chloride 91 L Carbon Dioxide 22 Anion Gap 25.1 H BUN 80 H Creatinine 12.0 H* GFR Calculation 3.2 L Glucose 134 H POC Glucose 146 Calculated Osmolal ity 278 L Calcium 8.0 L Total Bilirubin 0.2 AST 19 ALT < 5 Alkaline Phosphata se 106 H Lactate Dehydrogen ase Total Protein 7.8 Albumin 2.1 L Globulin 5.7 H Blood Type Rho(D) Type Antibody Screen Crossmatch 05/14/20 05/14/20 05/14/20 21:00 16:28 11:09 WBC RBC Hgb Hct MCV MCH MCHC RDW Plt Count MPV Neut % (Auto) Lymph % (Auto) [place] % (Auto) Eos % (Auto) Baso % (Auto) Neut # (Auto) Lymph # (Auto) [place] # (Auto) Eos # (Auto) Baso # (Auto) Nucleated RBC % (a uto) Nucleated RBCs # Haptoglobin Sodium Potassium Chloride Carbon Dioxide Anion Gap BUN Creatinine GFR Calculation Glucose POC Glucose 128 147 132 Calculated Osmolal ity Calcium Total Bilirubin AST ALT Alkaline Phosphata se Lactate Dehydrogen ase Total Protein Albumin Globulin Blood Type Rho(D) Type Antibody Screen Crossmatch 05/14/20 05/11/20 03:30 22:10 WBC RBC Hgb Hct MCV MCH MCHC RDW Plt Count MPV Neut % (Auto) Lymph % (Auto) [place] % (Auto) Eos % (Auto) Baso % (Auto) Neut # (Auto) Lymph # (Auto) [place] # (Auto) Eos # (Auto) Baso # (Auto) Nucleated RBC % (a uto) Nucleated RBCs # Haptoglobin 183.0 Sodium Potassium Chloride Carbon Dioxide Anion Gap BUN Creatinine GFR Calculation Glucose POC Glucose Calculated Osmolal ity Calcium Total Bilirubin AST ALT Alkaline Phosphata se Lactate Dehydrogen ase 323 H Total Protein Albumin Globulin Blood Type A Positive Rho(D) Type Positive Antibody Screen Negative Crossmatch See Detail Addt'l Data from Hospital Stay: CT chest abdomen pelvis IMPRESSION: 1. No acute chest findings. 2. Mild perisplenic and perihepatic ascites. Small amount of fluid pericolic gutters. Mild to moderate fluid in the pelvis is increased from April 13, 2020. 3. Stable position of the pelvic catheter in the pelvis. 4. Small bilateral adrenal adenomas. 5. A few prominent periaortic lymph nodes likely reactive and unchanged. 6. No hydronephrosis in either kidney. 7. Prior cholecystectomy. Atrophic uterus. VQ scan: IMPRESSION: 1. Low probability for pulmonary embolus. Ankle x-ray: IMPRESSION: Fragmentation of the hindfoot, particularly in the calcaneus, with loss of height and disruption of the talocalcaneal articulation. Findings may reflect remote trauma or infection. Charcot foot is a consideration, although this typically involves the midfoot. Foot CT scan: IMPRESSION: 1. No peripherally enhancing fluid collection or abscess. No intramuscular fluid collection. There is diffuse subcutaneous and soft tissue edema that may reflect cellulitis, lymphedema or venous stasis. Some of this is probable reactive edema due to the extensive deformity in the ankle and hindfoot. 2. Extensive destruction, deformity and debris with comminuted fractures of the calcaneus, distal fibula and talus. This appearance is suspected be Charcot deformity given the extent of the destruction and deformity. Superimposed osteomyelitis cannot be excluded given the abundant soft tissue edema immediately adjacent to the fracture deformities in the hindfoot. Vitals: Last Vital Signs Temp 98.6 F 05/15/20 08:00 Pulse 89 05/15/20 08:00 Resp 18 05/15/20 08:00 BP 121/71 05/15/20 08:00 Pulse Ox 97 05/15/20 08:00 Discharge Plan Discharge Patient Disposition: Home, Self-Care Condition: Stable Prescriptions: New hydrocodone-acetaminophen 5-325 mg tablet 1 tab PO Q6H PRN (Reason: pain) Qty: 30 RF: 0 sodium bicarbonate 650 mg Tablet 650 mg PO TID Qty: 60 RF: 0 levofloxacin 500 mg Tablet 500 mg PO Q48H 5 Days Qty: 3 RF: 0 ferrous sulfate 325 mg (65 mg iron) Tablet,Delayed Release (Dr/Ec) 325 mg PO BIDWM Qty: 60 RF: 0 Calphron 667 mg Tablet 1,334 mg PO TIDWM Qty: 60 RF: 0 ondansetron HCl 8 mg tablet 8 mg PO DAILY PRN (Reason: nausea and vomiting) 5 Days Qty: 14 RF: 0 Continued levothyroxine [Synthroid] 150 mcg tablet 150 mcg PO DAILY RF: 0 cefazolin 1 gram Recon Soln 1 g IM Q12H RF: 0 gentamicin 0.1 % Cream 1 applic TOPICAL TID RF: 0 ergocalciferol (vitamin D2) 1,250 mcg (50,000 unit) Capsule 1,250 mcg PO DAILY RF: 0 RenaPlex 800 mcg- 12.5 mg Tablet 1 tab PO DAILY RF: 0 Novolin 70/30 U-100 Insulin 100 unit/mL (70-30) suspension See Rx Instructions .ROUTE .COMPLEX RF: 0 Discharge Orders: Discharge Order (Routine); Ordered 05/11/20 Ordered By: Shelton Saunders Other Ambulatory Orders: DME: Wheelchair (Order) Location: None Selected Ordered By: Angel Baez DME: [employer] (Order) Location: None Selected Ordered By: Angel Baez Referrals: [facility] [Other] (This is the company that provides your IV medication. If you have any questions regarding delivery or issues with your IV medication, you may call them at the number provided.) [facility] [Outside] (This is your home health company.) Alfonso Lora MD [Referring] - 2 weeks (Dr. storm office should contact you with appointment. If you have not heard from them by monday please contact them for a follow up appointment with in 2 weeks. ) Curtis Santana DPM [Physician] - 1 month (The orthopedic clinic will contact you with an ap[pointment date and time. If you do not hear from them by monday please call them to schedual and appointment with in 1 month. ) WOUND [facility]ARE CLINIC, [Staff Physician] - 05/19/20 1:00 pm (You have an appointment with Dr. Camacho at the [facility] located at [address] [place] [address].) Karen Bear MD [Primary Care Provider] - 2 weeks (The clinic should contact you with an appointment. If you do not hear from them by monday afternoon please call them. ) Discharge Diet: Usual diet Discharge Activity: Limit activity as instructed Patient Instructions: Levofloxacin (By mouth), Calcium Acetate (By mouth), Ascorbic Acid/Cyanocobalamin/Ferrous Fumarate (By mouth), Sodium Bicarbonate (By mouth), Transesophageal Echocardiogram (DC), Endocarditis (DC), Acute Wound Care (DC), Chronic Wound Care (DC) Activity Restrictions/Additional Instructions: Case management will call with referral to the wound care clinic. Discharge Date/Time: 05/15/20 13:00 Discharge Attestations Time Spent in Discharge Care*: greater than 30 min Specific Discharge Activities: Specific discharge activities: educating patient, discussing with pcp/other providers, discussing with upper caser/social workers/dc planners, documenting/other paperwork and evaluating patient/reviewing data Status at Discharge: Cognitive status at discharge: cognitively intact , Behavioral status at discharge: cooperative , Functional status at discharge: uses cane/walker Overall status at discharge: patient is back to baseline Quality Metrics Clinical Quality Measures During this hospital stay, did patient experience: None Coding Level of Care Code Acute Wet Machine Cutter for Chg Fwd Diagnoses Aortic valve endocarditis I35.8 Hypertension I10 Hypertension type: essential hypertension ESRD (end stage renal disease) N18.6 Diabetes E11.9 Diabetes mellitus [facility] insulin use: with [employer] use Diabetes mellitus type: type 2
[2020-05-15] MEDS: ceFAZolin 1,000 MG in sodium chloride 0.9% (plus) 50 ML 100 MG IV (10:43)
[2020-05-15 11:13] VITALS: BP 121/71; PULSE 89; RESP 18; TEMP 37; O2SAT 97
--- NOTE | 2020-05-25 14:29 | DCPLANNER ---
Patient did attend appointment scheduled for 05.19.20 with Wound Care.
== END 2020-05-15 13:00 | disposition home or self-care (01) | DRG 602 ==
LOC: ER 17:34 → CSU 22:10
PROVIDERS: Internal Medicine Cardiovascular Disease; Internal Medicine Nephrology; Admitting Provider Student in an Organized Health Care Education/Training Program; Emergency Provider Family Medicine; PCP Family Medicine; Visit Provider Student in an Organized Health Care Education/Training Program
PROC: (CPT 93312; principal; 2020-05-14 12:00)
DX: L03.116 Cellulitis of left lower limb (principal); N18.6 End stage renal disease; I12.0 Hypertensive chronic kidney disease with stage 5 chronic kidney disease or end stage renal disease; E87.2 Acidosis; I50.30 Unspecified diastolic (congestive) heart failure; E11.22 Type 2 diabetes mellitus with diabetic chronic kidney disease; Z99.2 Dependence on renal dialysis; Z79.4 Long term (current) use of insulin; I35.8 Other nonrheumatic aortic valve disorders; E03.9 Hypothyroidism, unspecified; Z11.59 Encounter for screening for other viral diseases; D63.1 Anemia in chronic kidney disease; I89.0 Lymphedema, not elsewhere classified
CPT/HCPCS: 12345; 36415; 36416; 36430; 36592; 71045; 71250; 73610; 73700; 74176; 78014; 80053; 82009; 82274; 82668; 82962; 83010; 83036; 83540; 83550; 83605; 83615; 83735; 83880; 84100; 84145; 84484; 85025; 85651; 86140; 86850; 86900; 86920; 87040; 87635; 87641; 90935; 93005; 93308; 93312; 93320; 93325; 93970; 96372; 96375; 97110; 97140; 97161; 97530; 99283; A9540; A9567; J0330; J0690; J1815; J2001; J2060; J2405; J2550; J2704; J3010; J3490; J7030; J7050; P9016; Q0169; Q3014; Q4081

== ENCOUNTER 2020-05-19 11:50 | Outpatient (CLI) | payer MEDICARE, MEDICAID, SELFPAY | END 2020-05-19 11:51 | disposition home or self-care (01) | LOC: WOUND 11:51 | PROVIDERS: PCP Family Medicine; Visit Provider Surgery | DX: I89.0 Lymphedema, not elsewhere classified (principal) | CPT/HCPCS: A6545; G0463 ==

== ENCOUNTER 2020-05-26 15:04 | Outpatient (CLI) | payer MEDICARE, MEDICAID, SELFPAY ==
[2020-05-26 16:08] LABS: Basophils # 0.1 10^3/uL (0.0-0.1); Basophils % 0.9 %; Eosinophils # 0.5 10^3/uL (0.0-0.8); Eosinophils % 3.8 %; Hematocrit 23.9 % (37.0-47.0); Hemoglobin 7.4 g/dL (11.5-15.3); Lymphocytes # 0.9 10^3/uL (0.8-4.8); Lymphocytes % 7.6 %; Mean Corpuscular Hemoglobin 31.4 pg (28.0-34.0); Mean Corpuscular Volume 101.3 fL (81-99); Mean Platelet Volume 9.3 fL (7.4-10.4); Monocytes # 1.2 10^3/uL (0.2-0.9); Monocytes % 10.3 %; Neutrophils # 8.83 10^3/uL (1.8-7.7); Neutrophils % 75.1 %; Nucleated Red Blood Cells % 0 %; Platelet Count 400 10^3/cmm (130-400); Red Blood Count 2.36 10^6/uL (4.1-5.3); Red Cell Distribution Width 14.6 % (12.1-15.1); White Blood Count 11.8 10^3/uL (4.0-10.0)
== END 2020-05-26 15:05 | disposition home or self-care (01) ==
LOC: LAB 15:08
PROVIDERS: PCP Family Medicine; Visit Provider Family Medicine
DX: Z01.89 Encounter for other specified special examinations (principal)
CPT/HCPCS: 85025

== ENCOUNTER 2020-06-02 14:33 | Outpatient (CLI) | payer MEDICARE, MEDICAID, SELFPAY ==
[2020-06-02 15:39] LABS: Basophils # 0.1 10^3/uL (0.0-0.1); Basophils % 0.6 %; Eosinophils # 0.9 10^3/uL (0.0-0.8); Hematocrit 24.4 % (37.0-47.0); Hemoglobin 7.3 g/dL (11.5-15.3); Lymphocytes # 1.1 10^3/uL (0.8-4.8); Lymphocytes % 10.4 %; Mean Corpuscular HGB Conc 29.9 g/dL (30.0-36.0); Mean Corpuscular Hemoglobin 30.8 pg (28.0-34.0); Mean Platelet Volume 9.1 fL (7.4-10.4); Monocytes # 1.3 10^3/uL (0.2-0.9); Monocytes % 12.2 %; Neutrophils # 7.16 10^3/uL (1.8-7.7); Neutrophils % 66.9 %; Nucleated Red Blood Cells % 0 %; Platelet Count 281 10^3/cmm (130-400); Red Blood Count 2.37 10^6/uL (4.1-5.3); Red Cell Distribution Width 14.6 % (12.1-15.1); White Blood Count 10.7 10^3/uL (4.0-10.0)
[2020-06-02 16:28] LABS: Alanine Aminotransferase < 5 U/L (0-33); Albumin Level 2.5 g/dL (3.5-5.2); Alkaline Phosphatase 84 IU/L (35-105); Aspartate Amino Transferase 13 U/L (0-32); Calcium 7.6 mg/dL (8.5-10.5); Carbon Dioxide 20 mmol/L (22-29); Chloride 92 mmol/L (98-107); Globulin 5.4 g/dL (1.3-4.6); Glomerular Filtration Rate 3.6 mL/min (90-130); Glucose 145 mg/dL (65-115); Osmolality Calculated 275 mOsm/kg (285-295); Sodium 131 mmol/L (136-145); Total Bilirubin 0.2 mg/dL (0.15-1.2); Total Protein 7.9 g/dL (6.6-8.7)
[2020-06-02 16:59] LABS: Blood Urea Nitrogen 89 mg/dL (6-20)
== END 2020-06-02 14:34 | disposition home or self-care (01) ==
LOC: LAB 14:37
PROVIDERS: PCP Family Medicine; Visit Provider Family Medicine
DX: I38 Endocarditis, valve unspecified (principal); L03.90 Cellulitis, unspecified; N18.6 End stage renal disease
CPT/HCPCS: 80053; 85025

== ENCOUNTER 2020-06-08 16:37 | Outpatient (CLI) | payer MEDICARE, MEDICAID, SELFPAY ==
[2020-06-08 17:44] LABS: Basophils % 0.4 %; Eosinophils # 0.9 10^3/uL (0.0-0.8); Eosinophils % 8.6 %; Hematocrit 21.3 % (37.0-47.0); Hemoglobin 6.7 g/dL (11.5-15.3); Lymphocytes # 0.9 10^3/uL (0.8-4.8); Lymphocytes % 8.3 %; Mean Corpuscular HGB Conc 31.5 g/dL (30.0-36.0); Mean Corpuscular Hemoglobin 31.2 pg (28.0-34.0); Mean Corpuscular Volume 99.1 fL (81-99); Mean Platelet Volume 8.9 fL (7.4-10.4); Monocytes # 1.5 10^3/uL (0.2-0.9); Monocytes % 13.6 %; Neutrophils # 7.33 10^3/uL (1.8-7.7); Nucleated Red Blood Cells % 0 %; Platelet Count 298 10^3/cmm (130-400); Red Blood Count 2.15 10^6/uL (4.1-5.3); Red Cell Distribution Width 14.1 % (12.1-15.1); White Blood Count 10.8 10^3/uL (4.0-10.0)
[2020-06-08 17:47] LABS: Anion Gap 27.9 (5-19); Carbon Dioxide 17 mmol/L (22-29); Chloride 91 mmol/L (98-107); Sodium 129 mmol/L (136-145)
[2020-06-08 17:48] LABS: Alanine Aminotransferase < 5 U/L (0-33); Albumin Level 2.6 g/dL (3.5-5.2); Alkaline Phosphatase 93 IU/L (35-105); Aspartate Amino Transferase 16 U/L (0-32); Calcium 7.4 mg/dL (8.5-10.5); Globulin 4.7 g/dL (1.3-4.6); Glomerular Filtration Rate 3.4 mL/min (90-130); Glucose 106 mg/dL (65-115); Osmolality Calculated 270 mOsm/kg (285-295); Total Bilirubin 0.2 mg/dL (0.15-1.2); Total Protein 7.3 g/dL (6.6-8.7)
[2020-06-08 18:25] LABS: Blood Urea Nitrogen 102 mg/dL (6-20); Potassium 6.9 mmol/L (3.5-5.1)
== END 2020-06-08 16:38 | disposition home or self-care (01) ==
LOC: LAB 16:40
PROVIDERS: PCP Family Medicine; Visit Provider Family Medicine
DX: I38 Endocarditis, valve unspecified (principal); L03.90 Cellulitis, unspecified; N18.6 End stage renal disease
CPT/HCPCS: 80053; 85025

== ENCOUNTER 2020-06-08 19:57 | Inpatient (IN) | payer MEDICARE, MEDICAID, SELFPAY ==
[2020-06-08] VITALS (7 sets, daily range): BP systolic 105–138; BP diastolic 55–70; PULSE 96–105; RESP 14–23; TEMP 36.5–37.1; O2SAT 95–100; BMI 41.9
--- NOTE | 2020-06-08 20:01 | ECG_ITS ---
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 Measurements Intervals [place] Rate: 101 P: 48 IN: 156 QRS: -16 QRSD: 90 T: 49 QT: 349 QTc: 452 Interpretive Statements SINUS TACHYCARDIA POSSIBLE LEFT ATRIAL ENLARGEMENT [-0.1mV P WAVE IN V1/V2] POSSIBLE LEFT VENTRICULAR HYPERTROPHY [VOLTAGE CRITERIA PLUS LAE OR QRS WIDENING] Compared to ECG 05/11/2020 22:04:47 Sinus rhythm no longer present Electronically Signed On 06-08-2020 21:18:37 CDT by Allison Gamble M.D. [email or web address]
[2020-06-08 20:41] LABS: Basophils % 0.4 %; Eosinophils % 10.2 %; Hematocrit 21.1 % (37.0-47.0); Lymphocytes % 11.1 %; Mean Corpuscular HGB Conc 30.8 g/dL (30.0-36.0); Mean Corpuscular Hemoglobin 31.4 pg (28.0-34.0); Mean Corpuscular Volume 101.9 fL (81-99); Mean Platelet Volume 8.1 fL (7.4-10.4); Monocytes # 1.3 10^3/uL (0.2-0.9); Neutrophils # 5.86 10^3/uL (1.8-7.7); Nucleated Red Blood Cells % 0 %; Platelet Count 236 10^3/cmm (130-400); Red Blood Count 2.07 10^6/uL (4.1-5.3); Red Cell Distribution Width 13.9 % (12.1-15.1); White Blood Count 9.3 10^3/uL (4.0-10.0)
--- NOTE | 2020-06-08 21:01 | W.ED.RECABL ---
HPI - Recheck/Abnormal Lab/Rx General: Chief Complaint: Recheck/Abnormal Lab/Rx Stated Complaint: abnormal labs Time Seen by Provider: 06/08/20 20:19 Source: patient and family Mode of arrival: wheelchair Limitations: no limitations History of Present Illness: HPI narrative: Alesia is a nice 59-year-old female who comes in with report of abnormal labs. The patient had outpatient labs drawn off of her dialysis catheter that she is using for IV antibiotics. The patient was told her creatinine was elevated which is a known issue as she is a peritoneal dialysis patient. She was also told her potassium was elevated. The patient does peritoneal dialysis and is currently doing peritoneal dialysis. She states though when she gets IV antibiotics this will sometimes hurt her kidneys and cause her to have increased potassium. She states otherwise she denies any complaints or concerns at this time. Review of Systems Const: Denies: fever(s), chills, body aches, fatigue, malaise or diaphoresis Eyes: Denies: change in vision, blurry vision, blind spots, photophobia, eye discharge or eye redness ENMT: Denies: throat pain, odynophagia, hoarseness, swelling of lips/tongue, oral sores, ear or mastoid pain, ear discharge, change in hearing or nasal discharge Card: Denies: chest pain, palpitations, irregular heart rhythm, edema, lightheadedness, syncope, pre-syncope, dyspnea on exertion or orthopnea Resp: Denies: dyspnea, productive cough, non-productive cough, wheezing, hemoptysis or chest congestion GI: Denies: abdominal pain, nausea, vomiting, hematemesis, coffee ground emesis, heartburn, diarrhea, constipation, GI cramping, hematochezia or melena : Denies: flank pain, dysuria, urinary frequency, urinary urgency or hematuria Musc: Denies: neck pain, back pain, extremity pain, extremity swelling, joint pain, joint swelling, joint redness, joint warmth or joint stiffness Skin/Breast: Denies: rash, pruritus, erythema, skin tenderness or jaundice Neuro: Denies: headache(s), numbness in extremities, weakness in extremities, sensory changes, lack of coordination, difficulty walking, dizziness, vertigo, confusion, Slurred speech present or seizure-like activity Jimmy/Lymph: Denies: easy bruising, easy bleeding, petechiae, purpura or enlarged lymph nodes All/Imm: Denies: urticaria, throat swelling, tongue swelling, facial swelling or acute wheezing PFSH ED PFSH: Medical History Atypical chest pain Congestive heart failure Diabetes Diabetes mellitus type 2, insulin-dependent ESRD (end stage renal disease) On peritoneal dialysis. Followed by Dr. Lora History of congestive heart failure History of MRSA infection Hyperlipidemia Hypertension Hypothyroidism Surgical History History of cholecystectomy History of lumbar surgery Due to epidural abscess in March 2018 Family History Mother Cancer Uterine and breast cancer Father Diabetes Other CAD (coronary artery disease) Social History Smoking and tobacco status: never smoked Alcohol intake: current Alcohol intake frequency: holidays/special occasions only Physical Exam Const: COMMON NORMALS: no acute distress, patient oriented x3, no limitations, healthy appearing and well nourished GENERAL APPEARANCE: cooperative, well kempt and well developed HENMT: COMMON NORMALS: normocephalic, atraumatic, external ears normal, EAC's normal and Normal external nose present HEAD & SCALP: normal to inspection, normocephalic and atraumatic FACE & SINUS: normal facial exam and face symmetric NOSE: Normal external nose present and Normal nares present EXTERNAL EAR: Yes external ears normal EXTERNAL AUDITORY CANAL: EAC's normal MOUTH: Normal oral and palatal mucosa present, lip normal and tongue normal Eye: COMMON NORMALS: Equal, round and reactive pupils present and conjunctivae normal GENERAL EYE: appearance normal, both eyes and all related structures ALIGNMENT: Yes alignment normal PERIORBITAL: periorbital findings normal EYELID: eyelids normal CONJUNCTIVA: Yes conjunctivae normal SCLERA: sclerae normal PUPIL: Yes Equal, round and reactive pupils present Neck/C-Spine: COMMON NORMALS: full ROM, no lymphadenopathy, supple, no meningeal signs and no JVD GENERAL: Yes normal visual inspection and Yes trachea midline Chest: COMMONS NORMALS: normal inspection of the chest and normal palpation of entire chest wall Resp: COMMON NORMALS: normal respiratory effort, No retractions and No use of accessory muscles EFFORT & INSPECTION: Yes able to speak in complete sentences and Yes symmetric chest movement AUSCULTATION: no crackles, no rales, no rhonchi and no wheezes Cardio: COMMON NORMALS: no JVD, regular rate, regular rhythm, S1 normal heart sound present and S2 normal heart sound present RATE: regular rate RHYTHM: regular rhythm HEART SOUNDS: S1 normal heart sound present, S2 normal heart sound present, no click, no gallops, no murmurs, no rubs and abnormal split S2 GI: COMMON NORMALS: Soft to palpation and No hepatosplenomegaly present PALPATION: Yes Soft to palpation, No Tenderness to palpation present (GI), No Guarding due to palpation present (GI), No Rigid due to palpation, Yes No hepatosplenomegaly present, No Hernia present, No Palpable mass present and No Pulsatile mass present : COMMON NORMALS: Yes no CVA tenderness BLADDER/KIDNEY EXAM: Yes no CVA tenderness EXTERNAL FEMALE EXAM: No Hernia present Back/Pelvis: COMMON NORMALS: no CVA tenderness, thoracic and lumbar spine normal to inspection, no thoracic nor lumbar tenderness and thoraco-lumbar ROM normal Extremity: COMMON NORMALS: normal to inspection, full ROM, capillary refill normal, no joint enlargement, no clubbing, cyanosis or edema and no calf tenderness Neuro: COMMON NORMALS: patient oriented x3, CN's II-XII intact bilaterally, moves all extremities, no focal motor deficits and no sensory deficits noted MENINGEAL SIGNS: Yes no meningeal signs SPEECH: speech normal Psych: COMMON NORMALS: mental status grossly normal, Normal thought process present, cooperative, normal affect, speech normal and activity/motor behavior normal APPEARANCE: Yes well kempt SPEECH: Yes normal speech THOUGHT PROCESS: Normal thought process present Skin: COMMON NORMALS: no rashes or lesions noted, turgor normal, no jaundice, no petechiae and no mottling GENERAL SKIN EXAM: no rashes or lesions noted and turgor normal Course Vital Signs: Vital signs: Vital Signs Temperature 98.5 F 06/08/20 20:08 Pulse Rate 105 H 06/08/20 20:08 Respiratory Rate 20 H 06/08/20 20:08 Blood Pressure 105/58 06/08/20 20:08 Pulse Oximetry 98 06/08/20 20:08 MDM - Recheck/Abnormal Lab/Rx MDM Narrative: Medical decision making narrative: The case was reviewed with both Drs. Hooks bharat Vazquez, they will admit and consult respectively. Dr. Ca will supervise the transfusion and Dr. Yin says he will likely let the patient finish her peritoneal dialysis and recheck her BMP in the morning. Lab Data: Attestation: I reviewed the patient's lab results. Labs: Lab Results 06/08/20 06/08/20 06/08/20 Range/Units 20:34 20:34 21:20 WBC 9.3 (4.0-10.0) 10^3/ uL RBC 2.07 L (4.1-5.3) 10^6/u L Hgb 6.5 L* (11.5-15.3) g/dL Hct 21.1 L (37.0-47.0) % MCV 101.9 H (81-99) fL MCH 31.4 (28.0-34.0) pg MCHC 30.8 (30.0-36.0) g/dL RDW 13.9 (12.1-15.1) % Plt Count 236 (130-400) 10^3/c mm MPV 8.1 (7.4-10.4) fL Neut % (Auto) 63.0 % Lymph % (Auto) 11.1 % [place] % (Auto) 14.0 % Eos % (Auto) 10.2 % Baso % (Auto) 0.4 % Neut # (Auto) 5.86 (1.8-7.7) 10^3/u L Lymph # (Auto) 1.0 (0.8-4.8) 10^3/u L [place] # (Auto) 1.3 H (0.2-0.9) 10^3/u L Eos # (Auto) 1.0 H (0.0-0.8) 10^3/u L Baso # (Auto) 0.0 (0.0-0.1) 10^3/u L Nucleated RBC % (a uto) 0 % Nucleated RBCs # 0.0 /100WBC PT 15.60 H (10.5-13.3) SECO NDS INR 1.20 (0.8-1.2) APTT 33.7 (23.9-36.7) SECO NDS Sodium 128 L (136-145) mmol/L Potassium 5.9 H (3.5-5.1) mmol/L Chloride 91 L (98-107) mmol/L Carbon Dioxide 18 L (22-29) mmol/L Anion Gap 24.9 H (5-19) BUN 97 H* (6-20) mg/dL Creatinine 11.7 H* (0.5-0.9) mg/dL GFR Calculation 3.3 L (90-130) mL/min Glucose 173 H (65-115) mg/dL Calculated Osmolal ity 271 L (285-295) mOsm/k g Calcium 7.4 L (8.5-10.5) mg/dL Total Bilirubin 0.2 (0.15-1.2) mg/dL AST 13 (0-32) U/L ALT < 5 (0-33) U/L Alkaline Phosphata se 84 (35-105) IU/L Total Protein 7.3 (6.6-8.7) g/dL Albumin 2.3 L (3.5-5.2) g/dL Globulin 5.0 H (1.3-4.6) g/dL EKG Data^: EKG 1: Attestation: I personally reviewed and interpreted this EKG as follows: EKG interpretation date: 06/08/20 EKG interpretation time: 20:50 Interpretation: Sinus tachycardia 101 beats a minute, LVH, peak T waves in precordial leads, otherwise no acute ST or T wave changes. Discharge Plan Discharge Patient Disposition: Placed in Observation Clinical Impression: Acute hyperkalemia, ESRD (end stage renal disease), Anemia Condition: Stable Prescriptions: No Action gabapentin 300 mg capsule 300 mg PO TID Qty: 90 RF: 1 levothyroxine [Synthroid] 150 mcg tablet 150 mcg PO DAILY RF: 0 Lasix 40 mg tablet 40 mg PO DAILY RF: 0 ergocalciferol (vitamin D2) 1,250 mcg (50,000 unit) Capsule 1,250 mcg PO DAILY RF: 0 RenaPlex 800 mcg- 12.5 mg Tablet 1 tab PO DAILY RF: 0 Novolin 70/30 U-100 Insulin 100 unit/mL (70-30) suspension See Rx Instructions .ROUTE .COMPLEX RF: 0 hydrocodone-acetaminophen 5-325 mg tablet 1 tab PO Q6H PRN (Reason: pain) Qty: 30 RF: 0 sodium bicarbonate 650 mg Tablet 650 mg PO TID Qty: 60 RF: 0 ferrous sulfate 325 mg (65 mg iron) Tablet,Delayed Release (Dr/Ec) 325 mg PO BIDWM Qty: 60 RF: 0 Referrals: Karen Bear MD [Primary Care Provider] - Coding Level of Care Code ED Product Marketing Director for Chg Fwd Exam Comprehensive
[2020-06-08 21:02] LABS: Hemoglobin 6.5 g/dL (11.5-15.3)
[2020-06-08 21:18] LABS: Alanine Aminotransferase < 5 U/L (0-33); Albumin Level 2.3 g/dL (3.5-5.2); Alkaline Phosphatase 84 IU/L (35-105); Anion Gap 24.9 (5-19); Aspartate Amino Transferase 13 U/L (0-32); Calcium 7.4 mg/dL (8.5-10.5); Carbon Dioxide 18 mmol/L (22-29); Chloride 91 mmol/L (98-107); Glomerular Filtration Rate 3.3 mL/min (90-130); Glucose 173 mg/dL (65-115); Osmolality Calculated 271 mOsm/kg (285-295); Potassium 5.9 mmol/L (3.5-5.1); Sodium 128 mmol/L (136-145); Total Bilirubin 0.2 mg/dL (0.15-1.2); Total Protein 7.3 g/dL (6.6-8.7)
--- NOTE | 2020-06-08 21:32 | PM.HP ---
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 Patient was called from our clinic because of abnormal labs, she was told about high potassium and creatinine. Patient is endorsing not paying attention to her peritoneal dialysis because of twice a day IV antibiotics that she is taking for bacteremia, she finished her IV antibiotics on Monday, she is denying nausea, chest pain, palpitations, dysuria. She does make urine. She has not noticed any bleeding in her stool. Her last colonoscopy did not reveal any active bleeders, however polypectomy was done. Peritoneal fluid cytology 04/22 did not reveal any malignancy. Patient is wheelchair-bound. Diagnosis in the ER revealed normal hemodynamics systolic blood pressure 118, persistent tachycardia heart rate fluctuating between 98-1 02, sinus tachycardia, hemoglobin 6.5, potassium 5.9, creatinine 11.7 Calcium 7.4 albumin 2.3 Review of Systems Const: Reports: chills, body aches and fatigue; Denies: fever(s) Eyes: Denies: change in vision ENMT: Denies: throat pain Card: Denies: chest pain Resp: Denies: dyspnea GI: Reports: diarrhea (Patient is endorsing chronic loose stools); Denies: abdominal pain, nausea or vomiting : Denies: flank pain Musc: Denies: neck pain Skin/Breast: Reports: lesions (Lymphedema with venous stasis dermatitis right lower leg hyperemia nonpurulent cellulitis) Neuro: Denies: headache(s) Psych: Denies: anxiety Endo: Denies: polyuria Jimmy/Lymph: Denies: easy bruising All/Imm: Denies: urticaria Medications/Allergies Home Medications Medication Instructions Recorded Confirmed Last Taken Type levothyroxine 150 mcg tablet 150 mcg PO DAILY 04/02/20 06/08/20 06/07/20 History Novolin 70/30 U-100 Insulin See Rx Instructions .ROUTE .COMPLEX 04/13/20 06/08/20 06/07/20 History RenaPlex 1 tab PO DAILY 04/13/20 06/08/20 06/07/20 History ergocalciferol (vitamin D2) 1,250 mcg PO DAILY 04/13/20 06/08/20 06/07/20 History hydrocodone-acetaminophen 1 tab PO Q6H PRN #30 tab 05/11/20 06/08/20 Unknown Rx ferrous sulfate 325 mg PO BIDWM #60 tab 05/15/20 06/08/20 Unknown Rx sodium bicarbonate 650 mg PO TID #60 tab 05/15/20 06/08/20 Unknown Rx furosemide [Lasix] 40 mg PO DAILY 06/08/20 06/08/20 Unknown History gabapentin 300 mg capsule 300 mg PO TID #90 cap 06/08/20 06/08/20 06/08/20 Rx Allergies Allergy/AdvReac Type Severity Reaction Status Date / Time Iodinated Contrast Media Allergy ALGY-Hives Verified 06/08/20 20:43 PFSH Acute PFSH: Medical History (Updated 06/08/20 @ 22:14 by Ramone Hooks MD) Atypical chest pain Congestive heart failure Diabetes Diabetes mellitus type 2, insulin-dependent ESRD (end stage renal disease) On peritoneal dialysis. Followed by Dr. Lora History of congestive heart failure History of MRSA infection Hyperlipidemia Hypertension Hypothyroidism MSSA (methicillin susceptible Staphylococcus aureus) Recent transesophageal echo rule out infective endocarditis, MRI of spine rule out epidural abscess, Status post IV cefazolin course finished on 06/02 Surgical History History of cholecystectomy History of lumbar surgery Due to epidural abscess in March 2018 Family History Mother Cancer Uterine and breast cancer Father Diabetes Other CAD (coronary artery disease) Social History Smoking and tobacco status: never smoked Alcohol intake: current Alcohol intake frequency: holidays/special occasions only Vitals/I&O/Wt Last Vital Signs Temp 98.5 F 06/08/20 20:08 Pulse 105 H 06/08/20 20:08 Resp 20 H 06/08/20 20:08 BP 105/58 07/27/20 20:08 Pulse Ox 98 06/08/20 20:08 Weight last 48 hrs Weight 117.934 kg Physical Exam Narrative: EXAM NARRATIVE: Patient is laying comfortable in her bed, currently saturating well on room air Sinus tachycardia noted S1, S2 no murmur appreciated Lungs are clear to auscultation EOMI, PERRLA Neurologically no focal deficit Lower semi-lymphedema with venous stasis dermatitis, right lower extremity nonpurulent cellulitis Abdomen soft peritoneal dialysis catheter without any drainage Nontender abdomen Appropriate mood and affect Patient seems to be in good spirits Data : 06/08/20 20:34 06/08/20 20:34 A&P Assessment and plan (1) Acute hyperkalemia: Status: Acute (2) Anemia: Status: Acute Qualifiers: Anemia type: unspecified type Qualified Code(s): D64.9 - Anemia, unspecified (3) Neuropathy: Status: Acute (4) Charcot's joint of foot in type 2 diabetes mellitus: Status: Acute (5) Lymphedema of both lower extremities: Status: Acute (6) Cellulitis: Status: Acute (7) ESRD (end stage renal disease): Status: Acute (8) Diabetes: Status: Acute Qualifiers: Diabetes mellitus keno terminal operator insulin use: with assisted use Diabetes mellitus type: type 2 Additional A&P Information Hyperkalemia Without hemodynamic compromise, I will give her 1 dose of calcium gluconate Peritoneal dialysis dependent for end-stage renal disease: Inadequate peritoneal dialysis regimen at home Nephro consult stat Anemia of chronic disease Macrocytic anemia Required blood transfusion in the past as well No source of GI bleed has been identified Colonoscopy without active source of bleeding, status post polypectomy No history of peptic ulcer disease We will transfuse 2 units Continue iron supplementation along folic acid Check B12 level Nonpurulent cellulitis of right lower extremity I would use doxycycline for now, avoid Bactrim Patient uses compression stockings Follows up with wound care Bilateral lower extremity Dopplers because of persistent sinus tachycardia Type 2 diabetes: Consistent carb diet, moderate sliding scale Full code Renal dialysis diet DVT prophylaxis not needed, I highly doubt compression devices will be completely wrapped on her lower extremities because of the extent of lymphedema Not a candidate of anticoagulation Attestations Medical Necessity Statement*: Anticipating stay in the hospital cross more than 2 midnights currently need management for hyperkalemia and inadequate peritoneal dialysis Requiring 2 units of blood transfusion for anemia Time Spent in Patient Care: 60mins Coding Level of Care Code Acute Quality Assurance Supervisor for Chg Fwd Diagnoses Acute hyperkalemia E87.5 Anemia D64.9 Anemia type: unspecified type Neuropathy G62.9 Charcot's joint of foot in type 2 diabetes mellitus E11.610 Lymphedema of both lower extremities I89.0 Cellulitis L03.90 ESRD (end stage renal disease) N18.6 Diabetes E11.9 Diabetes mellitus assisted insulin use: with keno terminal operator use Diabetes mellitus type: type 2
[2020-06-08 21:38] LABS: Partial Thromboplastin Time 33.7 SECONDS (23.9-36.7)
[2020-06-08 21:41] LABS: Blood Urea Nitrogen 97 mg/dL (6-20)
--- NOTE | 2020-06-08 21:43 | PM.MISC ---
Miscellaneous Note Purpose of Documentation: Brief Renal Note Note: EMR reviewed and case d/w Dr Sommer. Will see bedside in the am. Labs reviewed, K non critical i.e. continue PD to treat this without other therapy. Labs in the am at 4am. PD orders placed. 2.5% of 2L of [place], QID. For PRBCs Please call with any concerns overnight João Vazquez MD Nephrology,
--- NOTE | 2020-06-08 21:46 | PM.PN ---
Vitals/I&O/Wt Last Vital Signs Temp 98.5 F 06/08/20 20:08 Pulse 105 H 06/08/20 20:08 Resp 20 H 06/08/20 20:08 BP 105/58 06/08/20 20:08 Pulse Ox 98 06/08/20 20:08 Weight last 48 hrs Weight 117.934 kg Data : 06/08/20 20:34 06/08/20 20:34 A&P Additional A&P Information Case d/w Dr Sommer and EMR reviewed. Patient sent in with abnormal labs, found to have Hb 6.5 and hyperK. PD prescribed 2L, 2.5%, QID Hyperk noted, now 5.9. Cont PD for this with no other treatment To receive PRBCs Will see on the queen in the am Please call with any questions or concerns João Vazquez MD Nephrology, Attestations Medical Necessity Statement*: Eval and mgmt of ESRD Coding Level of Care Code Acute Casting Machine Set Up Operator for Ankitg Fwkaris
--- NOTE | 2020-06-08 21:49 | PC.NURSE ---
lab called critical bun 97; creatinine 11.7; and albumin 2.3. Notified Dr. Frey
--- NOTE | 2020-06-08 22:28 | PC.NURSE ---
during pt rounds, pt requesting gabapentin for neuropathy pain
[2020-06-08] MEDS: sodium chloride 0.9% 1,000 ML 100 ML IV (23:04)
--- NOTE | 2020-06-08 23:33 | PC.NURSE ---
pt placed on 2lpm of o2 after sats dropping and maintaining 86% on r/a
[2020-06-09] VITALS (11 sets, daily range): BP systolic 134–167; BP diastolic 64–80; PULSE 88–97; RESP 16–22; TEMP 36.5–36.9; O2SAT 93–100
--- NOTE | 2020-06-09 01:43 | USCV_ITS ---
Alesia Shaw Age: 59 Gender: F : 1960 Exam Date: 06/09/2020 13:11 Ordering Phys: Ramone Hooks MD Technologist: ALEJANDRO CORDOBA Exam Location: [facility] [place] Indication: SWELLING HISTORY: Lower extremity swelling. PROCEDURES: Venous duplex imaging was performed in bilateral lower extremities. The following venous structures were evaluated: common femoral vein, profunda vein, proximal portion of the greater saphenous vein, superficial femoral vein, and the popliteal vein. In addition, the posterior tibial and peroneal trunk were evaluated. FINDINGS: Normal 2-D Doppler and augmentation and compressibility throughout the lower extremity venous structures. Additional imaging through the proximal calf veins also reveals no thrombus. Limited evaluation of the greater saphenous vein is patent with no thrombus. CONCLUSIONS No evidence of right lower extremity DVT. No evidence of left lower extremity DVT. All [place] MD (Electronically Signed) Final Date: 09 June 2020 15:38 S
[2020-06-09 02:20] LABS: Vitamin B12 369 pg/mL (232-1245)
[2020-06-09] MEDS: ferrous sulfate EC 325 mg Tablet PO (02:49)
--- NOTE | 2020-06-09 03:58 | PC.NURSE ---
SCDs Unable to fit onto legs at this time.
[2020-06-09 05:29] LABS: Basophils # 0.1 10^3/uL (0.0-0.1); Basophils % 0.5 %; Eosinophils # 1.1 10^3/uL (0.0-0.8); Eosinophils % 11.4 %; Hematocrit 24.4 % (37.0-47.0); Hemoglobin 7.2 g/dL (11.5-15.3); Lymphocytes # 1.1 10^3/uL (0.8-4.8); Lymphocytes % 11.6 %; Mean Corpuscular HGB Conc 29.5 g/dL (30.0-36.0); Mean Corpuscular Hemoglobin 31.3 pg (28.0-34.0); Mean Corpuscular Volume 106.1 fL (81-99); Mean Platelet Volume 8.5 fL (7.4-10.4); Monocytes # 1.5 10^3/uL (0.2-0.9); Monocytes % 15.1 %; Neutrophils # 5.82 10^3/uL (1.8-7.7); Neutrophils % 60.3 %; Nucleated Red Blood Cells % 0 %; Platelet Count 247 10^3/cmm (130-400); Red Cell Distribution Width 14.2 % (12.1-15.1); White Blood Count 9.7 10^3/uL (4.0-10.0)
[2020-06-09 05:38] LABS: Anion Gap 25.2 (5-19); Calcium 7.3 mg/dL (8.5-10.5); Carbon Dioxide 16 mmol/L (22-29); Chloride 92 mmol/L (98-107); Glomerular Filtration Rate 3.3 mL/min (90-130); Glucose 112 mg/dL (65-115); Osmolality Calculated 266 mOsm/kg (285-295); Potassium 6.2 mmol/L (3.5-5.1); Sodium 127 mmol/L (136-145)
[2020-06-09 05:53] LABS: Blood Urea Nitrogen 98 mg/dL (6-20)
[2020-06-09 07:04] LABS: Glucose Point of Care 108 mg/dL (70-110)
[2020-06-09] MEDS: gabapentin 100 mg Capsule PO ×3 (08:30→20:12)
[2020-06-09] MEDS: sodium bicarbonate 650 mg Tablet PO ×3 (08:30→20:12)
[2020-06-09] MEDS: doxycycline 100 mg Tablet PO ×2 (08:30→17:29)
[2020-06-09] MEDS: sodium chloride 0.9% (100 ml) 100 ML (08:30)
[2020-06-09] MEDS: FUROsemide 40 mg Tablet PO (08:31)
[2020-06-09] MEDS: levothyroxine 150 mcg Tablet PO (08:31)
[2020-06-09] MEDS: b-complex-vitamin c Tablet 1 EACH PO (08:31)
[2020-06-09] MEDS: Dianeal low Ca w/2.5% dex 2,000 mL Bag 2000 ML INTRAPERIT (08:33)
--- NOTE | 2020-06-09 10:46 | PC.CHAP ---
Pastoral Care Encounter/Spiritual Assessment Type of Contact [] Declined fact checker visit [] Patient/Family/Request visit [] Outpatient visit [] Follow-up visit [] Physician referral [] Code/Alert [x] Routine visit [] Staff referral [] Actively dying [] Patient sleeping [] Family support [] [] Out of room [] Palliative care [] [x] Receiving care in room [] Pre-surgical visit [] Trauma [] Long length of stay [] ICU visit [] Other: Relational/Emotional Strength [x] Patient feels connected with others/family/visitors/staff [] Distress [] Loneliness/isolation [] Abandonment Spirituality of Patient [x] Person of Mana [] Attends Islam of their Mana [x] Believes in Prayer [] Reads Bible or Catholic materials [] There are Spiritual issues to be addressed Professor Of Pathology Interventions [x] Prayer [x] Active listening [x] Non-anxious presence [x] Spiritual/emotional support [] Crisis/trauma care [x] Spiritual counseling [] Bereavement support [] Provided bereavement packet [] Provided Bible/devotional materials [] Provided toy/stuffed animal, coloring book to patient or family member [] Provided Communion [] Anointing/[place] [] Salvation [x] Completed spiritual assessment [] Other: Impact on Illness or Injury [] Angry [] Fearful [] Anxious [] Often cries [] Exhaustion [] Unable to work [] Unable to attend roman catholic [] Unable to walk/stand [] Unable to read [] Unable to drive [] Unable to eat/drink [] Unable to sleep [] Unable to be with family [] Patient intubated [] Other: Summary In pain has good attitude, negative feelings, also doesn't know when she can go home Time spent with patient 10 mins
[2020-06-09 11:24] LABS: Glucose Point of Care 149 mg/dL (70-110)
--- NOTE | 2020-06-09 11:34 | P.PN_ITS ---
Subjective Subjective: Interval history: Admitted yesterday with hyperK. She feels ok with heavy LE edema which is chronic, no other overt uremic Sx. Passing small amounts of urine. Admits that she is only doing 2 exchanges a day, rarely 3 exchanges a day due to the burden of the time that this takes for her and her . PD is going well when she does the exchanges, ie the flow is fine, fredy ar effluent. She was found to be anemic and received PRBCs yesterday. Seen on PD today Vitals/I&O/Wt Last Vital Signs Temp 98.1 F 06/09/20 08:17 Pulse 92 06/09/20 08:17 Resp 18 06/09/20 08:17 BP 134/74 06/09/20 08:17 Pulse Ox 93 06/09/20 08:17 06/08/20 06/09/20 06/09/20 22:59 06:59 14:59 Intake Total 0 / 0 578 / 578 410 / 410 Balance 0 / 0 578 / 578 410 / 410 Weight last 48 hrs Weight 117.934 kg Physical Exam Narrative: EXAM NARRATIVE: Exam performed via telemed with aid of the bedside RN Constitutional: Awake, conversant, jovial HEENT: Wet mucosa, no jvp, non icteric Lungs: Bilaterally clear without discernible wheeze, rales in all lung zones CVS: S1 S2, no murmurs Abdo: Soft, BS ok Ext 4: Heavy edema, peripheral perfusion with no cyanosis Neurological: Grossly non-focal Data : 06/09/20 04:50 06/09/20 04:50 Micro: Microbiology 06/08/20 20:35 Blood Culture - Preliminary Blood SPECIMEN COLLECTED 06/08/20 20:34 Blood Culture - Preliminary Blood SPECIMEN COLLECTED A&P Additional A&P Information 1. ESRD - grossly under dialyzed using her current prescription. It is likely she was reliant on her [place] kidney function to support her small PD prescription and this has now failed - PD today increased to 1.5L every 6hrs - NPO tonight - tunneled line to be placed tomorrow - Hemodialysis tomorrow; 2K, UF 2-3L as tolerated - therapeutic case manager to organize outpatient dialysis in Dr Lora's clinic 2. HyperK - increased PD prescription - Hemodialysis tomorrow to definitely treat - Repeat K later today - low K diet 3. Anemia - S/p PRBCs, for iron and EPO as outpatient 4. Hemodynamics appear to be stable Attestations Medical Necessity Statement*: mgmt of ESRD Coding Level of Care Code Acute Trailhead Construction Worker for Gregorio Thompson
--- NOTE | 2020-06-09 13:28 | P.PN_ITS ---
Documented by User: YAHIR Spears STDALISIA 06/09/20 18:42 Subjective Subjective: Interval history: Patient was resting in bed and eating lunch. She reports lower extremity pain that it is improved with her current dose of gabapentin. She is fatigued but is conversant. Discussed plan to proceed with tunneled line placement and hemodialysis tomorrow and she seemed accepting of this plan. Vitals/I&O/Wt Last Vital Signs Temp 98.4 F 06/09/20 12:00 Pulse 88 06/09/20 12:00 Resp 18 06/09/20 12:00 BP 147/76 06/09/20 12:00 Pulse Ox 99 06/09/20 12:00 06/08/20 06/09/20 06/09/20 22:59 06:59 14:59 Intake Total 0 / 0 578 / 578 410 / 410 Balance 0 / 0 578 / 578 410 / 410 Weight last 48 hrs Weight 260 lb Physical Exam Narrative: EXAM NARRATIVE: General: Awake and alert x3. Conversant. Lungs: Lungs clear to auscultation. Cardio: Regular rate and rhythm, S1 and S2. No murmurs heard. Abdomen: Soft and nontender. No guarding. Bowel sounds active. Extremity: Significant lower extremity edema. Nonpurulent erythema seen on distal right extremity. Erythema was anterolateral and extended from ankle to near the lower knee. Data : 06/09/20 04:50 06/09/20 04:50 Micro: Microbiology 06/08/20 20:35 Blood Culture - Preliminary Blood SPECIMEN COLLECTED 06/08/20 20:34 Blood Culture - Preliminary Blood SPECIMEN COLLECTED A&P Assessment and plan (1) Acute hyperkalemia: Status: Acute (2) Anemia: Status: Acute Qualifiers: Anemia type: unspecified type Qualified Code(s): D64.9 - Anemia, unspecified (3) Neuropathy: Status: Acute (4) Charcot's joint of foot in type 2 diabetes mellitus: Status: Acute (5) Protein-energy malnutrition: Status: Acute (6) Cellulitis: Status: Acute (7) Anemia: Status: Acute (8) Lymphedema of both lower extremities: Status: Acute (9) Peritoneal dialysis catheter in place: Status: Acute (10) ESRD (end stage renal disease): Status: Acute (11) Diabetes: Status: Acute Qualifiers: 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 Continue telemetry. Increased PD to 1.5L every 6hrs per Dr. Vazquez. Planned hemodialysis for tomorrow. Reassess K later today. Hyponatremia Hypochloremia High anion gap metabolic acidosis Significantly elevated Cr of 11.7 These metabolic findings are suggestive of continued worsening end stage renal failure. Since no improvement has been made despite increased PD schedule, it is recommended by Dr. Vazquez to initiate hemodialysis. Tunneled line placement planned for tomorrow and hemodialysis will be initiated following placement. Continued hemodialysis should be coordinated in an outpatient setting with Dr. Lora. Patient is n.p.o. tonight Hypocalcemia but corrected for albumin level, calcium is normal at 8.7 Neuropathy controlled on gabapentin Continue outpatient follow-up with Dr. Santana for Charcot's arthropathy Diabetes mellitus Continue sliding scale insulin and consistent carb diet Lymphedema of lower extremities Chronic Patient uses compression stockings and is being evaluated in outpatient setting by Dr. Santana. Has been authorized for pneumatic lymphedema pumps. Bilateral lower extremities negative for DVT via US Anemia Macrocytic, consider checking B12 and folate. Denied blood in stool and negative stool occult blood on 05/12. Likely secondary to renal failure. Patient was given 2 units PRBC and hgb is 7.2 Patient was given one dose iron po and should be evaluated for EPO supplementation and iron infusion on outpatient basis. Cellulitis Continue doxycycline. Today is day 2 of doxycycline treatment. Expect 7 days total. Full code Renal dialysis, consistent carb diet DVT prophylaxis not indicated. SCDs are not likely to fit over leg edema and patient is not a candidate for anticoagulation due to severe anemia. Attestations Medical Necessity Statement*: Patient needs continued hospitalization for hyperkalemia and initiation of hemodialysis for end stage renal disease. 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 Other Attestations: Independently seen and examined patient. Reviewed medical student's findings above. Discussed with nephrology, and due to inadequacy of peritoneal dialysis, with persistent metabolic derangements as listed above, unfortunately he has needed to transition to hemodialysis. Discussed with general surgery and hemodialysis catheter will be placed tomorrow. N.p.o. after midnight. Otherwise continue doxycycline for right lower extremity cellulitis superimposed on severe lower extremity edema. She is awake and alert, having her lunch. Lucid. Appears comfortable. MMM No JVD RRR, no M/R/G Abdomen soft, nontender. PD catheter in place. Chronic severe lower extremity edema. Bilateral foot deformity. Right lower extremity skin with ill-defined large area of erythema from ankle extending proximally to below the knee and anterolateral portion mostly. Few small blisters, nonpurulent fluid. No weeping. 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
--- NOTE | 2020-06-09 15:47 | P.CONIM_ITS ---
Providers/Reason For Consult Consulting Physican/Specialty*: General Surgery Jose De Jesus Castro MD Reason for Consult*: Requesting tunneled hemodialysis catheter placement. Attending Physician: Arnold Hernandez Primary Care Provider: Karen Bear MD History of Present Illness History of Present Illness Alesia Shaw is a 59 year old female recently admitted with worsening hyperkalemia and evidence of worsening sequelae of end-stage renal disease, not being adequately treated by peritoneal dialysis. I have been asked to place a tunneled hemodialysis catheter for the patient. The patient had a dual-lumen central venous catheter placed at another institution approximately a month ago for treatment of methicillin sensitive Staphylococcus aureus infection. Her most recent blood cultures have been negative. Review of Systems General: Reports: 10 or more systems reviewed and unremarkable except in HPI and below Const: Denies: fever(s) Jimmy/Lymph: Reports: other (Bilateral lower extremity lymphedema) Meds/Allergies Home Medications and Allergies Home Medications Medication Instructions Recorded Confirmed Last Taken Type levothyroxine 150 mcg tablet 150 mcg PO DAILY 04/02/20 06/08/20 06/07/20 History Novolin 70/30 U-100 Insulin See Rx Instructions .ROUTE .COMPLEX 04/13/20 06/08/20 06/07/20 History RenaPlex 1 tab PO DAILY 04/13/20 06/08/20 06/07/20 History ergocalciferol (vitamin D2) 1,250 mcg PO DAILY 04/13/20 06/08/20 06/07/20 History hydrocodone-acetaminophen 1 tab PO Q6H PRN #30 tab 05/11/20 06/08/20 Unknown Rx ferrous sulfate 325 mg PO BIDWM #60 tab 05/15/20 06/08/20 Unknown Rx sodium bicarbonate 650 mg PO TID #60 tab 05/15/20 06/08/20 Unknown Rx furosemide [Lasix] 40 mg PO DAILY 06/08/20 06/08/20 Unknown History gabapentin 300 mg capsule 300 mg PO TID #90 cap 06/08/20 06/08/20 06/08/20 Rx Allergies Allergy/AdvReac Type Severity Reaction Status Date / Time Iodinated Contrast Media Allergy ALGY-Hives Verified 06/08/20 20:43 Current Medications Current Medications Generic Name Dose Route Start Last Admin Trade Name Freq PRN Reason Stop Dose Admin Doxycycline Monohydrate 100 mg 06/09/20 09:00 06/09/20 08:30 Vibramycin PO 100 mg BID SHELBY Administration Protocol Ferrous Sulfate 325 mg 06/09/20 01:43 06/09/20 02:49 Ferrous Sulfate PO 325 mg Q48H SHELBY Administration Furosemide 40 mg 06/09/20 09:00 06/09/20 08:31 Lasix PO 40 mg DAILY SHELBY Administration Gabapentin 100 mg 06/09/20 09:00 06/09/20 14:26 Neurontin PO 100 mg TID SHELBY Administration Sodium Chloride 500 mls @ 50 mls/hr 06/08/20 22:30 06/08/20 23:04 Sodium Chloride 0.9% IV Not Given .Q10H SHELBY Sodium Chloride 1,000 mls @ 100 mls/hr 06/08/20 22:30 06/08/20 23:04 Sodium Chloride 0.9% IV 100 mls/hr .Q10H SHELBY Administration Insulin Aspart 0 unit 06/09/20 08:00 06/09/20 12:23 Novolog SUBCUT 4 unit WM&BEDTIME SHELBY Administration Protocol Levothyroxine Sodium 150 mcg 06/09/20 09:00 06/09/20 08:31 Synthroid PO 150 mcg DAILY SHELBY Administration Multivitamins 1 each 06/09/20 09:00 06/09/20 08:31 Allbee-C PO 1 each DAILY SHELBY Administration Sodium Bicarbonate 650 mg 06/09/20 09:00 06/09/20 14:26 Sodium Bicarbonate PO 650 mg TID SHELBY Administration PFSH Acute PFSH: Medical History (Updated 06/09/20 @ 15:54 by Jose De Jesus Castro MD) Atypical chest pain Congestive heart failure Diabetes Diabetes mellitus type 2, insulin-dependent ESRD (end stage renal disease) History of colon polyps History of congestive heart failure History of MRSA infection Hyperlipidemia Hypertension Hypothyroidism MSSA (methicillin susceptible Staphylococcus aureus) Recent transesophageal echo rule out infective endocarditis, MRI of spine rule out epidural abscess, Status post IV cefazolin course finished on 06/02 Surgical History (Updated 06/09/20 @ 15:58 by Jose De Jesus Castro MD) Central vascular catheter in place upon arrival History of cholecystectomy History of lumbar surgery Due to epidural abscess in March 2018 Peritoneal dialysis catheter in place Family History Mother Cancer Uterine and breast cancer Father Diabetes Other CAD (coronary artery disease) Social History Smoking and tobacco status: never smoked Alcohol intake: current Alcohol intake frequency: holidays/special occasions only Female Reproductive History: Date of last menstrual period: 05/28/14 Vitals/I&O/Wt Last Vital Signs Temp 98.4 F 06/09/20 12:00 Pulse 88 06/09/20 12:00 Resp 18 06/09/20 12:00 BP 147/76 06/09/20 12:00 Pulse Ox 99 06/09/20 12:00 06/09/20 06/09/20 06/09/20 06:59 14:59 22:59 Intake Total 578 / 578 410 / 410 Balance 578 / 578 410 / 410 Weight last 48 hrs Weight 260 lb Physical Exam Narrative: EXAM NARRATIVE: The patient was encountered in her hospital room. She does not appear to be in any distress. The pupils are equal. No carotid bruits are heard. The patient has a double-lumen central venous catheter in her internal jugular vein on the right side. The site is unremarkable. The lungs seem clear anteriorly. The heart is regular. The abdomen is obese but is soft. The patient has a peritoneal dialysis catheter exiting the left side of the abdomen just above the umbilical level. The lower extremities show significant lymphedema bilaterally. She does have some erythema involving the right lower leg. Data Micro: Micro: Microbiology 06/08/20 20:35 Blood Culture - Pr eliminary Blood SPECIMEN [facility] 06/08/20 20:34 Blood Culture - Pr eliminary Blood SPECIMEN [facility] A&P Assessment and plan (1) ESRD (end stage renal disease): I have discussed converting the patient's current central line into a hoda neled hemodialysis catheter. Risks of surgery including bleeding, infection, etc. were all discussed. Her most recent blood cultures have been negative to date. The patient seems to understand and agrees to proceed. The patient will be made n.p.o. after midnight tonight. We will make arrangements for a tunneled hemodialysis catheter placement tomorrow morning. Status: Acute Consult Attestations Medical Necessity Statement: See admitting service's notation. Coding Level of Care Code Acute Financial Risk Manager for [facility] Diagnoses ESRD (end stage renal disease) N18.6
[2020-06-09] MEDS: Dianeal low Ca w/2.5% dex 2,000 mL Bag 1500 ML INTRAPERIT ×2 (15:49→22:26)
[2020-06-09 16:36] LABS: Glucose Point of Care 114 mg/dL (70-110)
[2020-06-09 19:00] LABS: Bilirubin Urine Neg (NEGATIVE); Blood Urine 3+ (Negative); Glucose Urine UA 2+ (Normal); Ketones Urine Negative (Negative); Leukocyte Esterase Urine 2+ (Negative); Nitrate Urine Negative (Negative); Protein Urine 3+ (Negative); Urine Color Yellow (Yellow); Urobilinogen Urine Neg (Negative); pH Urine 7 (5-7)
[2020-06-09 19:01] LABS: Add Urine Culture? No; Bacteria Urine 1+; Squamous Epithelial Cell Urine TOO NUMEROUS TO CNT (0-5)
[2020-06-09 21:28] LABS: Glucose Point of Care 140 mg/dL (70-110)
[2020-06-10] VITALS (13 sets, daily range): BP systolic 97–144; BP diastolic 49–71; PULSE 95–110; RESP 14–20; TEMP 36.7–37.7; O2SAT 94–99
--- NOTE | 2020-06-10 | SCC_ITS ---
Procedure Done: 1. Placement of 16 Fr. 31 cm HemoSplit long-term dialysis catheter into the right internal jugular vein over an existing central venous catheter tract with intraoperative fluoroscopy interpretation. 2. Removal of existing central venous catheter from right internal jugular vein. 27.1 seconds of fluoroscopic guidance, for a cumulative dose of 3.85 mGy, was provided to Dr. Castro by the radiology department. C-arm images of the chest were saved for the patient's permanent record. AMAURY
--- NOTE | 2020-06-10 06:45 | P.PN_ITS ---
Subjective Subjective: Interval history: Blood cultures remain negative to date. The patient says she is ready to proceed with her dialysis catheter placement. Vitals/I&O/Wt Last Vital Signs Temp 98.9 F 06/10/20 06:30 Pulse 110 H 06/10/20 06:30 Resp 20 H 06/10/20 06:30 BP 133/70 06/10/20 06:30 Pulse Ox 98 06/10/20 06:30 06/09/20 06/09/20 06/10/20 14:59 22:59 06:59 Intake Total 410 / 410 Output Total 150 / 150 Balance 410 / 260 -150 / 260 Weight last 48 hrs Weight 260 lb Physical Exam Narrative: EXAM NARRATIVE: Exam essentially unchanged. Patient remains afebrile. Data : 06/09/20 04:50 06/09/20 04:50 Micro: Microbiology 06/08/20 20:35 Blood Culture - Preliminary Blood NEGATIVE TO DATE 06/08/20 20:34 Blood Culture - Preliminary Blood NEGATIVE TO DATE A&P Assessment and plan (1) ESRD (end stage renal disease): Tunneled dialysis catheter placement this morning. Status: Acute Attestations Medical Necessity Statement*: See admitting service's notation. Coding Level of Care Code Acute Director Investment Banking for Gregorio Thompson Diagnoses ESRD (end stage renal disease) N18.6
--- NOTE | 2020-06-10 06:46 | P.ANESASSM_ITS ---
Pre-Anesthetic Assessment Pre-Anesthetic Assessment: Height/Weight: Height 1.68 m Weight 117.934 kg Temp Pulse Resp BP Pulse Ox 98.9 F 110 H 20 H 133/70 98 06/10/20 06:30 06/10/20 06:30 06/10/20 06:30 06/10/20 06:30 06/10/20 06:30 Preop Diagnosis: IE Proposed Procedure: Operation Date: 06/10/20 07:45 Proposed Procedures p Dialysis Catheter Insertion(Not Applicable) - Jose De Jesus Castro MD Last intake: Intake Last Liquid Date 06/09/20 Last Liquid Time 23:50 Last Solid Date 06/09/20 Last Solid Time 23:50 Social: Social History: No alcohol and No tobacco Exam: Pre-Anes Outpt Exam: alert, oriented x 3, clear to auscultation bilaterally and regular rate & rhythm Airway: Submandibular: WNL Cervical ROM: WNL MP: 2 Dentition: Other (teeth ok) History/ROS: No significant history except as noted Pulmonary: Pulmonary: ARANGO and Sleep apnea CV/HEM: CV/HEM: CHF and HTN : : Chronic renal failure Hepatic: Hepatic: Cirrohsis GI: GI: GERD (occ) Metabolic: Metabolic: DM, Hyperlipidemia, Morbid obesity and Thyroid Musc/skel: Musc/skel: Lower Back Pain, OA/DJD and Weakness (gen) Neuropsych: Neuropsych: Neuropathy (feet) Anesthetic Plan: ASA status: 3 Anesthesia: Anesthesia Evaluation and MAC Risk of > 500 ml blood loss (7ml/kg in children): No Meds/Allergies Current Medications: Current Medications Generic Name Dose Route Start Last Admin Trade Name Curtisq PRN Reason Stop Dose Admin Doxycycline Monohy drate 100 mg 06/09/20 09:00 06/09/20 17:29 Vibramycin PO 100 mg BID SHELBY Administration Protocol Ferrous Sulfate 325 mg 06/09/20 01:43 06/09/20 02:49 Ferrous Sulfate PO 325 mg Q48H SHELBY Administration Furosemide 40 mg 06/09/20 09:00 06/09/20 08:31 Lasix PO 40 mg DAILY SHELBY Administration Gabapentin 100 mg 06/09/20 09:00 06/09/20 20:12 Neurontin PO 100 mg TID SHELBY Administration Sodium Chloride 500 mls @ 50 mls/ hr 06/08/20 22:30 06/08/20 23:04 Sodium Chloride 0.9% IV Not Given .Q10H SHELBY Sodium Chloride 1,000 mls @ 100 m ls/hr 06/08/20 22:30 06/08/20 23:04 Sodium Chloride 0.9% IV 100 mls/hr .Q10H SHELBY Administration Insulin Aspart 0 unit 06/09/20 08:00 06/09/20 21:41 Novolog SUBCUT Not Given WM&BEDTIME SHELBY Protocol Levothyroxine Sodi um 150 mcg 06/09/20 09:00 06/09/20 08:31 Synthroid PO 150 mcg DAILY SHELBY Administration Multivitamins 1 each 06/09/20 09:00 06/09/20 08:31 Allbee-C PO 1 each DAILY SHELBY Administration Peritoneal Dialysi s Solution 1,500 ml 06/09/20 13:00 06/09/20 22:26 Dianeal Low Ca W /2.5% Dex INTRAPERIT 1,500 ml QID SHELBY Administration Sodium Bicarbonate 650 mg 06/09/20 09:00 06/09/20 20:12 Sodium Bicarbona te PO 650 mg TID SHELBY Administration PFSH Anesthesia PFSH: Medical History Atypical chest pain Congestive heart failure Diabetes Diabetes mellitus type 2, insulin-dependent ESRD (end stage renal disease) History of colon polyps History of congestive heart failure History of MRSA infection Hyperlipidemia Hypertension Hypothyroidism MSSA (methicillin susceptible Staphylococcus aureus) Recent transesophageal echo rule out infective endocarditis, MRI of spine rule out epidural abscess, Status post IV cefazolin course finished on 06/02 Surgical History Central vascular catheter in place upon arrival History of cholecystectomy History of lumbar surgery Due to epidural abscess in March 2018 Peritoneal dialysis catheter in place Family History Mother Cancer Uterine and breast cancer Father Diabetes Other CAD (coronary artery disease) Social History Smoking and tobacco status: never smoked Alcohol intake: current Alcohol intake frequency: holidays/special occasions only Female Reproductive History: Date of last menstrual period: 05/28/14 Data Anesthesia CBC & Chem 7: 06/09/20 04:50 06/09/20 04:50 Other Labs: Laboratory Results - last 48 hr 06/08/20 06/08/20 06/08/20 18:01 20:34 20:34 WBC 9.3 RBC 2.07 L Hgb 6.5 L* Hct 21.1 L MCV 101.9 H MCH 31.4 MCHC 30.8 RDW 13.9 Plt Count 236 MPV 8.1 Neut % (Auto) 63.0 Lymph % (Auto) 11.1 [facility] % (Auto) 14.0 Eos % (Auto) 10.2 Baso % (Auto) 0.4 Neut # (Auto) 5.86 Lymph # (Auto) 1.0 [facility] # (Auto) 1.3 H Eos # (Auto) 1.0 H Baso # (Auto) 0.0 Nucleated RBC % (auto) 0 Nucleated RBCs # 0.0 PT INR APTT Sodium 128 L Potassium 5.9 H Chloride 91 L Carbon Dioxide 18 L Anion Gap 24.9 H BUN 97 H* Creatinine 11.7 H* GFR Calculation 3.3 L Glucose 173 H POC Glucose Calculated Osmolality 271 L Calcium 7.4 L Total Bilirubin 0.2 AST 13 ALT < 5 Alkaline Phosphatase 84 Total Protein 7.3 Albumin 2.3 L Globulin 5.0 H Vitamin B12 Urine Color Yellow Urine Appearance Sl cloudy A Urine pH 7 Ur Specific [place] 1.010 Urine Protein 3+ H Urine Glucose (UA) 2+ Urine Ketones Negative Urine Blood 3+ H Urine Nitrate Negative Urine Bilirubin Neg Urine Urobilinogen Neg Ur Leukocyte Esterase 2+ H Urine RBC 10-15 H Urine WBC 10-15 H Ur Squamous Epith Cells Too numerous to cnt H Amorphous Sediment Not Reportable Urine Bacteria 1+ H Blood Type Rho(D) Type Antibody Screen Antibody Identification Cold Antibody Screen Crossmatch 06/08/20 06/08/20 06/08/20 21:20 21:20 21:32 WBC RBC Hgb Hct MCV MCH MCHC RDW Plt Count MPV Neut % (Auto) Lymph % (Auto) [facility] % (Auto) Eos % (Auto) Baso % (Auto) Neut # (Auto) Lymph # (Auto) [facility] # (Auto) Eos # (Auto) Baso # (Auto) Nucleated RBC % (auto) Nucleated RBCs # PT 15.60 H INR 1.20 APTT 33.7 Sodium Potassium Chloride Carbon Dioxide Anion Gap BUN Creatinine GFR Calculation Glucose POC Glucose Calculated Osmolality Calcium Total Bilirubin AST ALT Alkaline Phosphatase Total Protein Albumin Globulin Vitamin B12 369 Urine Color Urine Appearance Urine pH Ur Specific [place] Urine Protein Urine Glucose (UA) Urine Ketones Urine Blood Urine Nitrate Urine Bilirubin Urine Urobilinogen Ur Leukocyte Esterase Urine RBC Urine WBC Ur Squamous Epith Cells Amorphous Sediment Urine Bacteria Blood Type A Positive Rho(D) Type Positive Antibody Screen Negative Antibody Identification Cold Antibody Cold Antibody Screen Positive Crossmatch See Detail 06/09/20 06/09/20 06/09/20 04:50 04:50 06:48 WBC 9.7 RBC 2.30 L Hgb 7.2 L Hct 24.4 L MCV 106.1 H MCH 31.3 MCHC 29.5 L RDW 14.2 Plt Count 247 MPV 8.5 Neut % (Auto) 60.3 Lymph % (Auto) 11.6 [place] % (Auto) 15.1 Eos % (Auto) 11.4 Baso % (Auto) 0.5 Neut # (Auto) 5.82 Lymph # (Auto) 1.1 [facility] # (Auto) 1.5 H Eos # (Auto) 1.1 H Baso # (Auto) 0.1 Nucleated RBC % (auto) 0 Nucleated RBCs # 0.0 PT INR APTT Sodium 127 L Potassium 6.2 H Chloride 92 L Carbon Dioxide 16 L Anion Gap 25.2 H BUN 98 H* Creatinine 11.7 H* GFR Calculation 3.3 L Glucose 112 POC Glucose 108 Calculated Osmolality 266 L Calcium 7.3 L Total Bilirubin AST ALT Alkaline Phosphatase Total Protein Albumin Globulin Vitamin B12 Urine Color Urine Appearance Urine pH Ur Specific [place] Urine Protein Urine Glucose (UA) Urine Ketones Urine Blood Urine Nitrate Urine Bilirubin Urine Urobilinogen Ur Leukocyte Esterase Urine RBC Urine WBC Ur Squamous Epith Cells Amorphous Sediment Urine Bacteria Blood Type Rho(D) Type Antibody Screen Antibody Identification Cold Antibody Screen Crossmatch 06/09/20 06/09/20 06/09/20 11:22 16:30 21:23 WBC RBC Hgb Hct MCV MCH MCHC RDW Plt Count MPV Neut % (Auto) Lymph % (Auto) [facility] % (Auto) Eos % (Auto) Baso % (Auto) Neut # (Auto) Lymph # (Auto) [facility] [place] # (Auto) Eos # (Auto) Baso # (Auto) Nucleated RBC % (auto) Nucleated RBCs # PT INR APTT Sodium Potassium Chloride Carbon Dioxide Anion Gap BUN Creatinine GFR Calculation Glucose POC Glucose 149 114 140 Calculated Osmolality Calcium Total Bilirubin AST ALT Alkaline Phosphatase Total Protein Albumin Globulin Vitamin B12 Urine Color Urine Appearance Urine pH Ur Specific [place] Urine Protein Urine Glucose (UA) Urine Ketones Urine Blood Urine Nitrate Urine Bilirubin Urine Urobilinogen Ur Leukocyte Esterase Urine RBC Urine WBC Ur Squamous Epith Cells Amorphous Sediment Urine Bacteria Blood Type Rho(D) Type Antibody Screen Antibody Identification Cold Antibody Screen Crossmatch Micro: Microbiology 06/08/20 20:35 Blood Culture - Preliminary Blood NEGATIVE TO DATE 06/08/20 20:34 Blood Culture - Preliminary Blood NEGATIVE TO DATE Cardiac Studies: No Data to Display
[2020-06-10] MEDS: sodium chloride 0.9% 1,000 ML 30 ML IV (06:49)
--- NOTE | 2020-06-10 06:52 | PC.NURSE ---
patient off unit at shift change
--- NOTE | 2020-06-10 07:54 | SC_ITS ---
WS: [id number] INTRAOPERATIVE TECHNIQUE: 2 Spot fluoroscopic images for intraoperative purposes. FLUOROSCOPY TIME: 27 seconds CLINICAL INFORMATION: surgery COMPARISON: None. FINDINGS: Right subclavian central venous dual-lumen catheter in the distal IVC and right atrium. No visualized pneumothorax. SC/C-arm FL for CVA [id number] IMPRESSION: Images obtained for intraoperative purposes..
[2020-06-10] MEDS: heparin, porcine 1,000 unit/mL INJ 10 mL 10000 UNIT HE (08:11)
--- NOTE | 2020-06-10 08:28 | P.OP_ITS ---
Operative Report Date of procedure: June 10, 2020 Pre-op Diagnosis: End-stage renal disease, failing peritoneal dialysis. Post-op diagnosis: same Procedure Done: 1. Placement of 16 Fr. 31 cm HemoSplit long-term dialysis catheter into the right internal jugular vein over an existing central venous catheter tract with intraoperative fluoroscopy interpretation. 2. Removal of existing central venous catheter from right internal jugular v ein. Pathology: none sent Surgeon: Jose De Jesus Castro Anesthesia: MAC Estimated blood loss (mL): 5 Complications: None. Condition: stable Disposition: PACU Procedure: The patient was brought to the operating room and was placed in a supine position on the operating room table. A monitored anesthetic was induced. The right side of the neck and chest including the dual-lumen central line in the right internal jugular vein were prepped and draped in a sterile fashion. A combination of 1% lidocaine with 1 to 100,000 parts epinephrine and 0.5% bupivacaine was used for local anesthetic on throughout the procedure. A guidewire was easily passed down the venous catheter lumen and the catheter was removed. The C-arm was positioned and showed the guidewire extending down the vena cava. A 16 [place] HemoSplit long-term dialysis catheter was then placed on the right side of the chest and measured so that the subcutaneous cuff would be an appropriate location in the subcutaneous tunnel. The local anesthetic mixture was used to anesthetize a subcutaneous tract from the right chest wall to the right side of the neck over the top of the clavicle. A small incision was made on the chest wall at the proposed exit point and a small incision was also made adjacent to the guidewire on the right side of the neck. The HemoSplit catheter was then tunneled from the small incision on the chest to the small incision on the right side of the neck using the passer provided in the kit. Small to medium sized dilators were then placed over the guidewire to dilate the skin opening and the subcutaneous tissue, using fluoroscopy intermittently to assure continued good position of the J- wire/dilators. The introducer and sheath were then passed over the guidewire into the right internal jugular vein. The guidewire and introducer were removed and the arms of the HemoSplit dialysis catheter were easily passed down the sheath which was then torn away. The C-arm was once again positioned and showed good placement of the dialysis catheter tip in the vena cava. Both ports were aspirated and flushed with hep flush solution. Both ports showed excellent flow and were then left filled with concentrated hep flush solution. The catheter was sewn in place at the skin on the chest with some sutures of 3-0 Prolene. The small incision on the right side of the neck was closed using some interrupted inverted sutures of 4-0 Vicryl. The incision on the neck was covered with some surgical glue. A sterile dressing was placed over the HemoSplit exit site on the chest. The patient was taken back to the recovery area postoperatively in stable condition. INTRAOPERATIVE FLUOROSCOPY interpretation: FINDINGS: Intraoperative fluoroscopic images of a hemodialysis catheter placement were reviewed. An initial image reveals a guidewire entering the right internal jugular vein and extending down the vena cava. Subsequent images reveal a dialysis catheter on that side of the chest with its tubing tip in good location in the superior vena cava. No obvious pneumothorax is identified.
[2020-06-10] MEDS: doxycycline 100 mg Tablet PO ×2 (09:41→17:46)
[2020-06-10] MEDS: sodium bicarbonate 650 mg Tablet PO ×3 (09:41→21:57)
[2020-06-10] MEDS: b-complex-vitamin c Tablet 1 EACH PO (09:41)
[2020-06-10] MEDS: levothyroxine 150 mcg Tablet PO (09:42)
[2020-06-10] MEDS: FUROsemide 40 mg Tablet PO (09:42)
[2020-06-10] MEDS: gabapentin 100 mg Capsule PO ×3 (09:42→21:57)
--- NOTE | 2020-06-10 10:03 | PC.NURSE ---
Dr. Hernandez order to hold this scheduled dose of lasix, see MAR for further details.
[2020-06-10 10:54] LABS: Basophils % 0.3 %; Eosinophils # 0.2 10^3/uL (0.0-0.8); Eosinophils % 1.6 %; Hemoglobin 8.5 g/dL (11.5-15.3); Lymphocytes # 0.5 10^3/uL (0.8-4.8); Mean Corpuscular HGB Conc 30.4 g/dL (30.0-36.0); Mean Corpuscular Hemoglobin 30.8 pg (28.0-34.0); Mean Corpuscular Volume 101.4 fL (81-99); Mean Platelet Volume 8.5 fL (7.4-10.4); Monocytes # 1.2 10^3/uL (0.2-0.9); Monocytes % 9.7 %; Neutrophils # 10.64 10^3/uL (1.8-7.7); Neutrophils % 83.5 %; Nucleated Red Blood Cells % 0 %; Platelet Count 255 10^3/cmm (130-400); Red Blood Count 2.76 10^6/uL (4.1-5.3); Red Cell Distribution Width 14.3 % (12.1-15.1); White Blood Count 12.7 10^3/uL (4.0-10.0)
[2020-06-10 11:06] LABS: Glucose Point of Care 145 mg/dL (70-110)
[2020-06-10 11:08] LABS: Alanine Aminotransferase < 5 U/L (0-33); Alkaline Phosphatase 97 IU/L (35-105); Anion Gap 25.2 (5-19); Aspartate Amino Transferase 16 U/L (0-32); Calcium 7.3 mg/dL (8.5-10.5); Carbon Dioxide 18 mmol/L (22-29); Chloride 93 mmol/L (98-107); Globulin 5.1 g/dL (1.3-4.6); Glomerular Filtration Rate 3.2 mL/min (90-130); Glucose 137 mg/dL (65-115); Osmolality Calculated 273 mOsm/kg (285-295); Potassium 6.2 mmol/L (3.5-5.1); Sodium 130 mmol/L (136-145); Total Bilirubin 0.2 mg/dL (0.15-1.2); Total Protein 7.1 g/dL (6.6-8.7)
[2020-06-10 11:27] LABS: Blood Urea Nitrogen 98 mg/dL (6-20)
[2020-06-10 11:28] LABS: Phosphorus 9.9 mg/dL (2.5-4.5)
--- NOTE | 2020-06-10 11:29 | PC.NURSE ---
notified Dr Hernandez of critical lab values BUN 98, Creatinine 12.0, and phosp 9.9. and that patient is going to dialysis soon.
--- NOTE | 2020-06-10 11:48 | PC.NURSE ---
Patient taken to dialysis.
--- NOTE | 2020-06-10 13:26 | P.PN_ITS ---
Subjective Subjective: Interval history: Feels ok, s/p HD tunneled line placement No uremic Sx but she is very weak. Heavy LE edema Breathing comfortably Vitals/I&O/Wt Last Vital Signs Temp 98.9 F 06/10/20 11:15 Pulse 97 06/10/20 11:15 Resp 14 06/10/20 11:15 BP 113/66 06/10/20 11:15 Pulse Ox 94 06/10/20 11:15 06/09/20 06/10/20 06/10/20 22:59 06:59 14:59 Intake Total 50 / 50 Output Total 150 / 150 5 / 5 Balance -150 / 260 45 / 45 Weight last 48 hrs Weight 117.934 kg Physical Exam Narrative: EXAM NARRATIVE: Exam performed via telemed with aid of the bedside RN Constitutional: Awake, conversant, jovial HEENT: Wet mucosa, no jvp, non icteric Lungs: Bilaterally clear without discernible wheeze, rales in all lung zones CVS: S1 S2, no murmurs Abdo: Soft, BS ok Ext 4: Heavy edema, peripheral perfusion with no cyanosis Neurological: Grossly non-focal Data : 06/10/20 10:38 06/10/20 10:38 Micro: Microbiology 06/08/20 20:35 Blood Culture - Preliminary Blood NEGATIVE TO DATE 06/08/20 20:34 Blood Culture - Preliminary Blood NEGATIVE TO DATE A&P Additional A&P Information 1. ESRD - grossly under dialyzed using her current prescription. It is likely she was reliant on her [place] kidney function to support her small PD prescription and this has now failed - PD can now be held - hemodialysis today and will cont MWF prescription; 2K, UF 2-3L as tolerated - leather case finisher to organize outpatient dialysis in Dr Lora's clinic 2. HyperK - Will repeat labs this evening after dialysuis to make sure she is effectively dialyzed and cleaned up - low K diet 3. Anemia - S/p PRBCs, for iron and EPO as outpatient 4. Hemodynamics appear to be stable - ok for DC today after dialysis if labs look good Attestations Medical Necessity Statement*: eval for ESRD Coding Level of Care Code Acute Sterilization Tech for Ankitg Jay
--- NOTE | 2020-06-10 16:23 | PC.NURSE ---
patient requesting to be discharged today. telegraphic typewriter operator notified Dr Hernandez. Per Dr Hernandez, patient can be discharged home today if HD is set up and repeat BMP. Continuity Reader entered order for BMP and asked case management where we are on the outpatient HD
[2020-06-10 17:16] LABS: Anion Gap 17.1 (5-19); Blood Urea Nitrogen 45 mg/dL (6-20); Calcium 7.7 mg/dL (8.5-10.5); Carbon Dioxide 24 mmol/L (22-29); Chloride 97 mmol/L (98-107); Glucose 161 mg/dL (65-115); Osmolality Calculated 279 mOsm/kg (285-295); Potassium 4.1 mmol/L (3.5-5.1); Sodium 134 mmol/L (136-145)
--- NOTE | 2020-06-10 18:06 | PC.NURSE ---
notified Dr Hernandez of critical creatinine of 6.2 after HD.
--- NOTE | 2020-06-10 18:06 | PC.NURSE ---
Per Maylin with SS, we are waiting harvesting contractor back from Dr Lora about the HD
--- NOTE | 2020-06-10 18:33 | PM.PN ---
Subjective Subjective: Interval history: He did well with hemodialysis this evening. We have not been able to yet secure a slot for hemodialysis for her for Monday. He states that she is okay staying here tonight, and that also her is already gone, and so would no longer be able to give her a ride. Vitals/I&O/Wt Last Vital Signs Temp 98.9 F 06/10/20 11:15 Pulse 97 06/10/20 11:15 Resp 14 06/10/20 11:15 BP 113/66 06/10/20 11:15 Pulse Ox 94 06/10/20 11:15 06/10/20 06/10/20 06/10/20 06:59 14:59 22:59 Intake Total 50 / 50 360 / 410 Output Total 5 / 5 Balance 45 / 45 360 / 405 Weight last 48 hrs Weight 117.934 kg Physical Exam Const: COMMON NORMALS: no acute distress and patient oriented x3 GENERAL APPEARANCE: cooperative and comfortable NUTRITIONAL APPEARANCE: obese HENMT: COMMON NORMALS: oropharynx normal Neck/C-Spine: COMMON NORMALS: no JVD Resp: COMMON NORMALS: normal respiratory effort and clear to auscultation bilaterally AUSCULTATION: clear to auscultation bilaterally Cardio: COMMON NORMALS: no JVD, regular rhythm, S1 normal heart sound present, S2 normal heart sound present and No murmurs present (Cardio) RHYTHM: regular rhythm HEART SOUNDS: S1 normal heart sound present and S2 normal heart sound present GI: COMMON NORMALS: Normal to inspection, nondistended, normoactive bowel sounds present, Soft to palpation and non-tender PALPATION: Yes Soft to palpation Extremity: COMMON NORMALS: no joint enlargement GENERAL: Yes edema (Chronic severe swelling of bilateral lower extremities.) Neuro: COMMON NORMALS: patient oriented x3 and moves all extremities Skin: RASHES: rashes noted (Poorly defined, today pale erythema of anterolateral right ruth.) OTHER: Healing abrasions on anterior right ruth, left heel, medial foot, chronic skin, without surrounding cellulitis, no drainage. Data : 06/10/20 10:38 06/10/20 16:38 Micro: Microbiology 06/08/20 20:35 Blood Culture - Preliminary Blood NEGATIVE TO DATE 06/08/20 20:34 Blood Culture - Preliminary Blood NEGATIVE TO DATE A&P Assessment and plan (1) ESRD (end stage renal disease): Uncontrolled with PD, with metabolic abnormalities including hyperkalemia, acidosis. Tolerated HD well this evening. Try to secure a outpatient hemodialysis slot for her for this Monday, but were not yet able to accomplish this. Due to this, and since it is late and she is no longer able to get a ride home, will plan for discharge tomorrow morning on confirmation of availability of hemodialysis. Status: Acute (2) Acute hyperkalemia: Hyperkalemia responded to hemodialysis. Status: Acute (3) Cellulitis: This is improving. Faint erythema on right anterolateral lower ruth. Continue doxycycline. Status: Acute (4) Anemia: Responded well to 2 units. BC transfusion. Continue iron replacement. Erythropoietin with HD. Status: Acute Qualifiers: Anemia type: unspecified type Qualified Code(s): D64.9 - Anemia, unspecified (5) Neuropathy: Status: Acute (6) Charcot's joint of foot in type 2 diabetes mellitus: Continue follow-up with podiatry. Status: Acute (7) Lymphedema of both lower extremities: Status: Acute (8) Diabetes: Status: Acute Qualifiers: Diabetes mellitus half-way insulin use: with half-way use Diabetes mellitus type: type 2 Attestations Medical Necessity Statement*: Continue admission for discharge arrangements due to need for hemodialysis due to multiple metabolic derangements not responsive to peritoneal dialysis. Coding Level of Care Code Acute Logging Tractor Operator Swamp for [facility] Fwd Diagnoses ESRD (end stage renal disease) N18.6 Acute hyperkalemia E87.5 Cellulitis L03.90 Anemia D64.9 Anemia type: unspecified type Neuropathy G62.9 Charcot's joint of foot in type 2 diabetes mellitus E11.610 Lymphedema of both lower extremities I89.0 Diabetes E11.9 Diabetes mellitus half-way insulin use: with half-way use Diabetes mellitus type: type 2
[2020-06-10 20:46] LABS: Glucose Point of Care 137 mg/dL (70-110)
[2020-06-11] VITALS (7 sets, daily range): BP systolic 106–143; BP diastolic 55–72; PULSE 90–93; RESP 16–18; TEMP 36.7–37.1; O2SAT 95–97
[2020-06-11 03:20] LABS: Basophils % 0.4 %; Eosinophils # 0.7 10^3/uL (0.0-0.8); Eosinophils % 7.3 %; Hematocrit 24.4 % (37.0-47.0); Hemoglobin 7.4 g/dL (11.5-15.3); Lymphocytes % 10.1 %; Mean Corpuscular HGB Conc 30.3 g/dL (30.0-36.0); Mean Corpuscular Hemoglobin 30.3 pg (28.0-34.0); Mean Platelet Volume 8.5 fL (7.4-10.4); Monocytes # 1.2 10^3/uL (0.2-0.9); Monocytes % 12.3 %; Neutrophils # 6.89 10^3/uL (1.8-7.7); Neutrophils % 69.2 %; Nucleated Red Blood Cells % 0 %; Platelet Count 218 10^3/cmm (130-400); Red Blood Count 2.44 10^6/uL (4.1-5.3); Red Cell Distribution Width 14.1 % (12.1-15.1)
[2020-06-11 03:36] LABS: Alanine Aminotransferase < 5 U/L (0-33); Albumin Level 1.9 g/dL (3.5-5.2); Alkaline Phosphatase 95 IU/L (35-105); Anion Gap 16.7 (5-19); Aspartate Amino Transferase 21 U/L (0-32); Blood Urea Nitrogen 49 mg/dL (6-20); Calcium 6.9 mg/dL (8.5-10.5); Carbon Dioxide 23 mmol/L (22-29); Chloride 95 mmol/L (98-107); Glomerular Filtration Rate 5.8 mL/min (90-130); Glucose 127 mg/dL (65-115); Osmolality Calculated 270 mOsm/kg (285-295); Potassium 4.7 mmol/L (3.5-5.1); Sodium 130 mmol/L (136-145); Total Bilirubin 0.2 mg/dL (0.15-1.2); Total Protein 6.9 g/dL (6.6-8.7)
[2020-06-11] MEDS: HYDROcodone-acetaminophen 5-325 mg Tablet 1 TAB PO (06:28)
[2020-06-11 06:45] LABS: Glucose Point of Care 126 mg/dL (70-110)
--- NOTE | 2020-06-11 09:00 | PC.SOCIAL ---
IMM Page 2 of IMM explained to patient. Initialed, dated, and timed and placed in chart. Copy provided to patient.
[2020-06-11] MEDS: sodium bicarbonate 650 mg Tablet PO ×2 (09:13→14:01)
[2020-06-11] MEDS: doxycycline 100 mg Tablet PO (09:14)
[2020-06-11] MEDS: ferrous sulfate EC 325 mg Tablet PO (09:14)
[2020-06-11] MEDS: b-complex-vitamin c Tablet 1 EACH PO (09:14)
[2020-06-11] MEDS: FUROsemide 40 mg Tablet PO (09:14)
[2020-06-11] MEDS: gabapentin 100 mg Capsule PO ×2 (09:15→14:01)
[2020-06-11] MEDS: levothyroxine 150 mcg Tablet PO (09:15)
--- NOTE | 2020-06-11 09:19 | ANE.PACU2 ---
Inpatient post-anesthesia follow up: Airway intact: Yes Vital signs: Temperature 98.8 F Pulse Rate [Monito r] 105 Pulse Rate 92 Respiratory Rate 17 Blood Pressure [Ri ght Arm] 105/58 Blood Pressure 118/68 Pulse Oximetry 97 Oxygen Delivery Me thod Room Air Oxygen Flow Rate 2 Fraction of Inspir ed Oxygen Hydration adequate: Yes Nausea and vomiting: Yes Pain level: 1 Mental status: Baseline
[2020-06-11 11:24] LABS: Glucose Point of Care 167 mg/dL (70-110)
--- NOTE | 2020-06-11 13:07 | P.DS_ITS ---
Discharge Providers Date of Admission: 06/08/20 23:19 Date of Discharge: June 11, 2020 Attending Provider at Admission: Ramone Hooks MD Attending Provider at Discharge: Arnold Hernandez Primary Care Provider: Karen Bear MD Diagnoses at Discharge Discharge Diagnosis (1) ESRD (end stage renal disease): Status: Acute (2) Acute hyperkalemia: Status: Acute (3) Cellulitis: Status: Acute (4) Anemia: Status: Acute Qualifiers: Anemia type: unspecified type Qualified Code(s): D64.9 - Anemia, unspecified (5) Neuropathy: Status: Acute (6) Charcot's joint of foot in type 2 diabetes mellitus: Status: Acute (7) Lymphedema of both lower extremities: Status: Acute (8) Diabetes: Status: Acute Problem details: Diabetes mellitus type 2, insulin-dependent Qualifiers: Diabetes mellitus [facility] insulin use: with predatory animal exterminator use Diabetes mellitus type: type 2 Reason for Visit Reason for Visit: abnormal labs Hospital Course Hospital Course: Very pleasant 59-year-old lady with ESRD, until now undergoing peritoneal dialysis, with chronic lower extremity edema, chronic diastolic congestive heart failure, diabetes complicated by neuropathy, Charcot foot, hypothyroidism, 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 On presentation also noticed with area of cellulitis over anterolateral right ruth which has been treated with doxycycline with gradual improvement in the hospital. Noted chronic anemia. She was seen and assessed by nephrology, with recommendation for initiation of hemodialysis, and due to this had a tunneled hemodialysis catheter placed by surgery, with first session of hemodialysis on 06/10, with subsequent improvement in metabolic abnormalities. She tolerated first hemodialysis session well. She will need to continue follow-up with nephrology outpatient with regards to ESRD and chronic anemia, and continue hemodialysis for which she has a scheduled session for noon tomorrow. She is aware to confirm this in the morning when the clinic opens. She will complete the course of doxycycline for cellulitis. She is encouraged to continue follow- up with podiatry with regards to Charcot foot. Physical Exam Const: COMMON NORMALS: no acute distress and patient oriented x3 GENERAL APPEARANCE: cooperative and comfortable NUTRITIONAL APPEARANCE: obese OTHER: Today she is feeling well, denies any discomfort, and feels ready to return home. HENMT: COMMON NORMALS: oropharynx normal Neck/C-Spine: COMMON NORMALS: no JVD Resp: COMMON NORMALS: normal respiratory effort and clear to auscultation bilaterally AUSCULTATION: clear to auscultation bilaterally Cardio: COMMON NORMALS: no JVD, regular rhythm, S1 normal heart sound present, S2 normal heart sound present and No murmurs present (Cardio) RHYTHM: regular rhythm HEART SOUNDS: S1 normal heart sound present and S2 normal heart sound present GI: COMMON NORMALS: Normal to inspection, nondistended, normoactive bowel sounds present, Soft to palpation and non-tender PALPATION: Yes Soft to palpation Extremity: COMMON NORMALS: no joint enlargement GENERAL: Yes edema (Chronic severe swelling of bilateral lower extremities.) Neuro: COMMON NORMALS: patient oriented x3 and moves all extremities Skin: RASHES: rashes noted (Poorly defined, pale erythema of anterolateral right ruth.) OTHER: Healing abrasions on anterior right ruth, left heel, medial foot, chronic skin, without surrounding cellulitis, no drainage. Discharge Data Data Completed and Pending: Completed Studies During Hospitalization Category Date [place] [id number] Routin e Ultrasound 06/09/20 01:43 Completed Pending at discharge Category Date Time Status Blood Culture Sta t Lab 06/08/20 20:35 Results Complete Blood Co unt w/Auto AM LABS Lab 06/12/20 04:00 Ordered Comprehensive Met abolic Panel AM LA BS Lab 06/12/20 04:00 Ordered Labs from last 24 hours 06/11/20 06/11/20 06/11/20 10:45 06:13 02:56 WBC RBC Hgb Hct MCV MCH MCHC RDW Plt Count MPV Neut % (Auto) Lymph % (Auto) [place] % (Auto) Eos % (Auto) Baso % (Auto) Neut # (Auto) Lymph # (Auto) [place] # (Auto) Eos # (Auto) Baso # (Auto) Nucleated RBC % (a uto) Nucleated RBCs # Sodium 130 L Potassium 4.7 Chloride 95 L Carbon Dioxide 23 Anion Gap 16.7 BUN 49 H Creatinine 7.3 H* GFR Calculation 5.8 L Glucose 127 H POC Glucose 167 126 Calculated Osmolal ity 270 L Calcium 6.9 L Total Bilirubin 0.2 AST 21 ALT < 5 Alkaline Phosphata se 95 Total Protein 6.9 Albumin 1.9 L Globulin 5.0 H 06/11/20 06/10/20 06/10/20 02:56 19:26 16:38 WBC 10.0 RBC 2.44 L Hgb 7.4 L Hct 24.4 L MCV 100.0 H MCH 30.3 MCHC 30.3 RDW 14.1 Plt Count 218 MPV 8.5 Neut % (Auto) 69.2 Lymph % (Auto) 10.1 [place] % (Auto) 12.3 Eos % (Auto) 7.3 Baso % (Auto) 0.4 Neut # (Auto) 6.89 Lymph # (Auto) 1.0 [place] # (Auto) 1.2 H Eos # (Auto) 0.7 Baso # (Auto) 0.0 Nucleated RBC % (a uto) 0 Nucleated RBCs # 0.0 Sodium 134 L Potassium 4.1 Chloride 97 L Carbon Dioxide 24 Anion Gap 17.1 BUN 45 H Creatinine 6.2 H* GFR Calculation 7.0 L Glucose 161 H POC Glucose 137 Calculated Osmolal ity 279 L Calcium 7.7 L Total Bilirubin AST ALT Alkaline Phosphata se Total Protein Albumin Globulin Vitals: Last Vital Signs Temp 98.8 F 06/11/20 11:28 Pulse 93 06/11/20 11:28 Resp 17 06/11/20 11:28 BP 130/65 06/11/20 11:28 Pulse Ox 97 06/11/20 11:28 Discharge Plan Discharge Patient Disposition: Home Health Service Condition: Stable Prescriptions: New doxycycline monohydrate 100 mg Tablet 100 mg PO BID Qty: 14 RF: 0 Continued gabapentin 300 mg capsule 300 mg PO TID Qty: 90 RF: 1 levothyroxine [Synthroid] 150 mcg tablet 150 mcg PO DAILY RF: 0 Lasix 40 mg tablet 40 mg PO DAILY RF: 0 ergocalciferol (vitamin D2) 1,250 mcg (50,000 unit) Capsule 1,250 mcg PO DAILY RF: 0 RenaPlex 800 mcg- 12.5 mg Tablet 1 tab PO DAILY RF: 0 Novolin 70/30 U-100 Insulin 100 unit/mL (70-30) suspension See Rx Instructions .ROUTE .COMPLEX RF: 0 hydrocodone-acetaminophen 5-325 mg tablet 1 tab PO Q6H PRN (Reason: pain) Qty: 30 RF: 0 sodium bicarbonate 650 mg Tablet 650 mg PO TID Qty: 60 RF: 0 ferrous sulfate 325 mg (65 mg iron) Tablet,Delayed Release (Dr/Ec) 325 mg PO BIDWM Qty: 60 RF: 0 Discharge Orders: Discharge Order (Routine); Ordered 06/11/20 Ordered By: Arnold Hernandez Referrals: [facility] [place], [place] [Other] - 06/12/20 12:00 pm [facility] [Outside] Alfonso Lora MD [Referring] - 1 week Karen Bear MD [Primary Care Provider] - 4-7 days Discharge Activity: Increase activity as tolerated Activity Restrictions/Additional Instructions: Continue renal hemodialysis diet. Please follow-up with your parts and service manager next week. Continue follow-up with [facility] for hemodialysis. Please call the dialysis clinic early tomorrow morning to confirm your appointment for hemodialysis at noon. If you notice any worsening of redness, swelling, tenderness in the extremity affected by cellulitis, please contact your primary care provider, or seek assessment in urgent care or ER. Please continue follow-up with podiatry with regards to Charcot foot disorder. Discharge Attestations Time Spent in Discharge Care*: greater than 30 min Status at Discharge: Cognitive status at discharge: cognitively intact , Behavioral status at discharge: cooperative , Quality Metrics Clinical Quality Measures During this hospital stay, did patient experience: None Coding Level of Care Code Acute Counselor Dormitory for g Fwd Diagnoses ESRD (end stage renal disease) N18.6 Acute hyperkalemia E87.5 Cellulitis L03.90 Anemia D64.9 Anemia type: unspecified type Neuropathy G62.9 Charcot's joint of foot in type 2 diabetes mellitus E11.610 Lymphedema of both lower extremities I89.0 Diabetes E11.9 Diabetes mellitus [facility] insulin use: with predatory animal exterminator use Diabetes mellitus type: type 2
--- NOTE | 2020-06-11 13:58 | PM.PN ---
Subjective Subjective: Interval history: Feels ok today. Happy to go home. Dialysis went well yesterday Vitals/I&O/Wt Last Vital Signs Temp 98.8 F 06/11/20 11:28 Pulse 93 06/11/20 11:28 Resp 17 06/11/20 11:28 BP 130/65 06/11/20 11:28 Pulse Ox 97 06/11/20 11:28 06/10/20 06/11/20 06/11/20 22:59 06:59 14:59 Intake Total 360 / 410 200 / 610 1080 / 1080 Balance 360 / 405 200 / 605 1080 / 1080 Physical Exam Narrative: EXAM NARRATIVE: Exam performed via telemed with aid of the bedside RN Constitutional: Awake, conversant, jovial HEENT: Wet mucosa, no jvp, non icteric Lungs: Bilaterally clear without discernible wheeze, rales in all lung zones CVS: S1 S2, no murmurs Abdo: Soft, BS ok Ext 4: Heavy edema, peripheral perfusion with no cyanosis Neurological: Grossly non-focal Data : 06/11/20 02:56 06/11/20 02:56 A&P Additional A&P Information 1. ESRD - grossly under dialyzed using her current prescription. It is likely she was reliant on her [place] kidney function to support her small PD prescription and this has now failed - PD can now be held - hemodialysis today and will cont MWF prescription; 2K, UF 2-3L as tolerated - d/w [place] her PD RN 2. HyperK - improving labs after effective hemodialysis 3. Anemia - S/p PRBCs, for iron and EPO as outpatient 4. Hemodynamics appear to be stable - ok for DC today after dialysis if labs look good Attestations Medical Necessity Statement*: eval and mgmt of HD Coding Level of Care Code Acute Software Solutions Architect for Ankit[employer] Jay
== END 2020-06-11 14:11 | disposition home health service (06) | DRG 640 ==
LOC: ER 21:44 → MEDSURG 06-09 00:05
PROVIDERS: Emergency Medicine; Internal Medicine Nephrology; Surgery; Admitting Provider Internal Medicine; Emergency Provider Emergency Medicine; PCP Family Medicine; Visit Provider Internal Medicine
PROC: 0JH63XZ Insertion of Tunneled Vascular Access Device into Chest Subcutaneous Tissue and Fascia, Percutaneous Approach (ICD-10-PCS; principal; 2020-06-10 07:45)
DX: E87.5 Hyperkalemia (principal); N18.6 End stage renal disease; I13.2 Hypertensive heart and chronic kidney disease with heart failure and with stage 5 chronic kidney disease, or end stage renal disease; L03.115 Cellulitis of right lower limb; I50.30 Unspecified diastolic (congestive) heart failure; I89.0 Lymphedema, not elsewhere classified; E11.22 Type 2 diabetes mellitus with diabetic chronic kidney disease; E11.610 Type 2 diabetes mellitus with diabetic neuropathic arthropathy; Z79.4 Long term (current) use of insulin; E11.40 Type 2 diabetes mellitus with diabetic neuropathy, unspecified; E03.9 Hypothyroidism, unspecified; Z86.14 Personal history of Methicillin resistant Staphylococcus aureus infection; E78.5 Hyperlipidemia, unspecified; D63.1 Anemia in chronic kidney disease
CPT/HCPCS: 12345; 36415; 36416; 36430; 76000; 77001; 80048; 80053; 81001; 82607; 82962; 84100; 85025; 85610; 85730; 86850; 86870; 86900; 86920; 87040; 93005; 93970; 96372; 99283; C1750; C1769; J0610; J0690; J1644; J1815; J2704; J3010; J3490; J7030; P9016; Q3014

== ENCOUNTER 2020-06-27 07:11 | Outpatient (CLI) | payer MEDICARE, MEDICAID, SELFPAY ==
[2020-06-27] VITALS (13 sets, daily range): BP systolic 134–177; BP diastolic 62–75; PULSE 78–88; RESP 17–19; TEMP 36.5–37.4; O2SAT 93–98; BMI 41.6
--- NOTE | 2020-06-27 11:47 | PC.CHAP ---
Pastoral Care Encounter/Spiritual Assessment Type of Contact [] Declined manager acquisition visit [] Patient/Family/Request visit [] Outpatient visit [] Follow-up visit [] Physician referral [] Code/Alert [X] Routine visit [] Staff referral [] Actively dying [] Patient sleeping [] Family support [] [] Out of room [] Palliative care [] [] Receiving care in room [] Pre-surgical visit [] Trauma [] Long length of stay [] ICU visit [] Other: Relational/Emotional Strength [] Patient feels connected with others/family/visitors/staff [] Distress [] Loneliness/isolation [] Abandonment Spirituality of Patient [] Person of Mana [] Attends Mormon of their Mana [] Believes in Prayer [] Reads Bible or Christian materials [] There are Spiritual issues to be addressed Canal Equipment Maintenance Supervisor Interventions [] Prayer [] Active listening [] Non-anxious presence [] Spiritual/emotional support [] Crisis/trauma care [] Spiritual counseling [] Bereavement support [] Provided bereavement packet [] Provided Bible/devotional materials [] Provided toy/stuffed animal, coloring book to patient or family member [] Provided Communion [] Anointing/[place] [] Salvation [] Completed spiritual assessment [] Other: Impact on Illness or Injury [] Angry [] Fearful [] Anxious [] Often cries [] Exhaustion [] Unable to work [] Unable to attend yarsanism [] Unable to walk/stand [] Unable to read [] Unable to drive [] Unable to eat/drink [] Unable to sleep [] Unable to be with family [] Patient intubated [] Other: Summary Time spent with patient
[2020-06-27] MEDS: sodium chloride 0.9% (100 ml) 100 ML 75 ML (12:12)
[2020-06-27 14:51] LABS: Hematocrit 20.8 % (37.0-47.0); Hemoglobin 6.3 g/dL (11.5-15.3)
--- NOTE | 2020-06-27 17:19 | P.HP_ITS ---
Providers/Chief Complaint Primary Care Provider: Karen Bear MD Chief Complaint: end stage renal disease History of Present Illness Alesia Shaw is a pleasant 59 year old lady with ESRD, undergoing hemodialysis which was set up recently after peritoneal dialysis was found and adequate for her needs, with chronic anemia in addition to other chronic medical problems came in initially as outpatient blood transfusion referred by her tobacco classer, however, following transfusion hemoglobin was rechecked, and was noted to be 6.3. Due to this she is kept for observation, additional 1 unit blood transfusion. She reports recently has been feeling fatigued, as she states usually does when she becomes anemic. She reports she has had upper and lower endoscopy, not in [address] Jorgensen, reporting normal EGD results, and a polyp found on colonoscopy. She denies any hematochezia. Denies any shiraz blood in her urine or elsewhere. Does say that she intermittently gets iron by her tobacco classer. Denies NSAID use. Does state that she intermittently uses aspirin if she feels some palpitations or other discomfort as needed. She denies any prior NM or CVA. She otherwise has been at her baseline state of health. Review of Systems Const: Reports: fatigue; Denies: fever(s), chills, body aches or malaise Eyes: Denies: change in vision or eye redness ENMT: Denies: throat pain, oral sores or ear or mastoid pain Card: Reports: edema (Chronic); Denies: chest pain, pre-syncope or dyspnea on exertion Resp: Denies: dyspnea, productive cough, change in phlegm color or hemoptysis GI: Denies: abdominal pain, nausea, vomiting, diarrhea, constipation, hematochezia or melena : Denies: flank pain, urinary frequency or hematuria Musc: Denies: back pain, joint swelling or joint redness Skin/Breast: Denies: rash, sores or new lesions Neuro: Denies: headache(s), numbness in extremities, weakness in extremities, dizziness, confusion or seizure-like activity Endo: Denies: polyuria or polydipsia Jimmy/Lymph: Denies: easy bleeding or purpura All/Imm: Denies: urticaria, throat swelling or tongue swelling Medications/Allergies Home Medications Medication Instructions Recorded Confirmed Last Taken Type levothyroxine 150 mcg tablet 150 mcg PO DAILY 04/02/20 06/08/20 06/07/20 History Novolin 70/30 U-100 Insulin See Rx Instructions .ROUTE .COMPLEX 04/13/20 06/08/20 06/07/20 History RenaPlex 1 tab PO DAILY 04/13/20 06/08/20 06/07/20 History ergocalciferol (vitamin D2) 1,250 mcg PO DAILY 04/13/20 06/08/20 06/07/20 History hydrocodone-acetaminophen 1 tab PO Q6H PRN #30 tab 05/11/20 06/08/20 Unknown Rx ferrous sulfate 325 mg PO BIDWM #60 tab 05/15/20 06/08/20 Unknown Rx sodium bicarbonate 650 mg PO TID #60 tab 05/15/20 06/08/20 Unknown Rx Lasix 40 mg PO DAILY 06/08/20 06/08/20 Unknown History gabapentin 300 mg capsule 300 mg PO TID #90 cap 06/08/20 06/08/20 06/08/20 Rx doxycycline monohydrate 100 mg PO BID #14 tab 06/11/20 Unknown Rx Allergies Allergy/AdvReac Type Severity Reaction Status Date / Time Iodinated Contrast Media Allergy ALGY-Hives Verified 06/08/20 20:43 PFSH Acute PFSH: Medical History Atypical chest pain Congestive heart failure Diabetes Diabetes mellitus type 2, insulin-dependent ESRD (end stage renal disease) History of colon polyps History of congestive heart failure History of MRSA infection Hyperlipidemia Hypertension Hypothyroidism MSSA (methicillin susceptible Staphylococcus aureus) Recent transesophageal echo rule out infective endocarditis, MRI of spine rule out epidural abscess, Status post IV cefazolin course finished on 06/02 Surgical History Central vascular catheter in place upon arrival History of cholecystectomy History of lumbar surgery Due to epidural abscess in March 2018 Peritoneal dialysis catheter in place Family History Mother Cancer Uterine and breast cancer Father Diabetes Other CAD (coronary artery disease) Social History Smoking and tobacco status: never smoked Alcohol intake: current Alcohol intake frequency: holidays/special occasions only Female Reproductive History: Date of last menstrual period: 05/28/14 Vitals/I&O/Wt Last Vital Signs Temp 98.7 F 06/27/20 16:34 Pulse 80 06/27/20 16:34 Resp 17 06/27/20 16:34 BP 164/66 06/27/20 16:34 Pulse Ox 95 06/27/20 16:34 06/27/20 06/27/20 06/27/20 06:59 14:59 22:59 Intake Total 450 / 450 0 / 450 Balance 450 / 450 0 / 450 Physical Exam Const: COMMON NORMALS: no acute distress, patient oriented x3 and alert NUTRITIONAL APPEARANCE: obese ORIENTATION/CONSCIOUSNESS: Yes awake OTHER: Very pleasant, conversant, reclined in bed. Not in discomfort. Pale. HENMT: COMMON NORMALS: oropharynx normal Neck/C-Spine: COMMON NORMALS: no JVD Resp: COMMON NORMALS: normal respiratory effort and clear to auscultation bilaterally AUSCULTATION: clear to auscultation bilaterally Cardio: COMMON NORMALS: no JVD, regular rhythm, S1 normal heart sound present, S2 normal heart sound present and No murmurs present (Cardio) RHYTHM: regular rhythm HEART SOUNDS: S1 normal heart sound present and S2 normal heart sound present GI: COMMON NORMALS: Normal to inspection, nondistended, normoactive bowel sounds present, Soft to palpation and non-tender PALPATION: Yes Soft to palpation Extremity: COMMON NORMALS: no joint enlargement GENERAL: Yes edema (Chronic edema) Neuro: COMMON NORMALS: patient oriented x3 and moves all extremities Skin: COMMON NORMALS: no rashes or lesions noted GENERAL SKIN EXAM: no rashes or lesions noted OTHER: Chronic nonpitting, and pitting lower extremity edema, cellulitis appears resolved Data : 06/27/20 14:39 A&P Assessment and plan (1) Anemia: Symptomatic anemia. Was referred here for outpatient blood transfusion by her tobacco classer. Received 1 unit PRBC, subsequently rechecked hemoglobin with hemoglobin still low at 6.3. Will receive additional unit transfusion. Will monitor overnight, recheck hemoglobin. She has previously had EGD and colonoscopy, but in 2018, with history of polyp. Currently reports perhaps intermittently some dark stools. Does not report taking aspirin as needed for some palpitations and discomfort, although does not have history of non-STEMI or CVA. Discussed with her to discontinue taking aspirin as they does not strong for primary prevention, and otherwise it increases risk of bleeding, risk of gastritis, etc. Will start on PPI twice daily. Check iron panel. Check Hemoccult. Discussed with her she may need repeat of endoscopic evaluation. We will also check for H. pylori. TSH. Status: Acute Qualifiers: Anemia type: unspecified type Qualified Code(s): D64.9 - Anemia, unspecified Additional A&P Information ESRD, HD MWF, previously PD Diabetes with peripheral neuropathy, Charcot arthropathy Recent cellulitis: Completed antibiotics, and cellulitis resolved Chronic lower extremity edema/lymphedema Charcot arthropathy: Continue follow-up with podiatry HLD HTN Hypothyroidism History of epidural abscess from infective endocarditis Aortic valve vegetation History of MSSA bacteremia Among other chronic medical problems. Will request for medications to be reconciled. Attestations Medical Necessity Statement*: Place in observation. Coding Level of Care Code Acute Receiving And Processing Supervisor for [facility] Fwd Exam Comprehensive Diagnoses Anemia D64.9 Anemia type: unspecified type
[2020-06-27 17:59] LABS: H. Pylori IgG Antibody Negative (Negative)
[2020-06-27 18:04] LABS: Iron 33 ug/dL (37-145); Percent Saturation 27.7 % (20-50); Thyroid Stimulating Hormone 2.61 uIU/mL (0.27-4.20); Total Iron Binding Capacity 119 mcg/dl; Unsaturated Iron Binding 86 ug/dL (112-347)
[2020-06-27 18:17] LABS: Ferritin 1806 ng/mL (15-150)
[2020-06-27] MEDS: pantoprazole DR 40 mg Tablet PO (18:21)
[2020-06-27] MEDS: sodium chloride 0.9% (100 ml) 100 ML 125 ML (19:25)
[2020-06-27 20:20] LABS: Hemoglobin 7.1 g/dL (11.5-15.3)
[2020-06-27] MEDS: insulin glargine 100 units/1 mL 10 UNIT SUBCUT (21:26)
[2020-06-27 21:45] LABS: Glucose Point of Care 137 mg/dL (70-110)
[2020-06-28] VITALS: BP 168/66; PULSE 74; RESP 20; TEMP 37.4; O2SAT 97
[2020-06-28 03:49] LABS: Basophils # 0.1 10^3/uL (0.0-0.1); Basophils % 1.1 %; Eosinophils # 0.6 10^3/uL (0.0-0.8); Eosinophils % 6.4 %; Hematocrit 23.2 % (37.0-47.0); Hemoglobin 7.1 g/dL (11.5-15.3); Lymphocytes # 1.5 10^3/uL (0.8-4.8); Lymphocytes % 16.1 %; Mean Corpuscular HGB Conc 30.6 g/dL (30.0-36.0); Mean Corpuscular Hemoglobin 30.1 pg (28.0-34.0); Mean Corpuscular Volume 98.3 fL (81-99); Monocytes # 1.2 10^3/uL (0.2-0.9); Monocytes % 12.6 %; Neutrophils # 5.85 10^3/uL (1.8-7.7); Nucleated Red Blood Cells % 0 %; Platelet Count 270 10^3/cmm (130-400); Red Blood Count 2.36 10^6/uL (4.1-5.3); Red Cell Distribution Width 16.8 % (12.1-15.1); White Blood Count 9.3 10^3/uL (4.0-10.0)
[2020-06-28 03:50] VITALS: BP 164/60; PULSE 78; RESP 20; TEMP 37.2; O2SAT 96
[2020-06-28 04:09] LABS: Alanine Aminotransferase 7 U/L (0-33); Albumin Level 2.5 g/dL (3.5-5.2); Alkaline Phosphatase 84 IU/L (35-105); Anion Gap 11.2 (5-19); Aspartate Amino Transferase 18 U/L (0-32); Blood Urea Nitrogen 24 mg/dL (6-20); Calcium 7.8 mg/dL (8.5-10.5); Carbon Dioxide 30 mmol/L (22-29); Chloride 98 mmol/L (98-107); Globulin 4.7 g/dL (1.3-4.6); Glomerular Filtration Rate 9.8 mL/min (90-130); Glucose 117 mg/dL (65-115); Osmolality Calculated 278 mOsm/kg (285-295); Potassium 4.2 mmol/L (3.5-5.1); Sodium 135 mmol/L (136-145); Total Bilirubin 0.3 mg/dL (0.15-1.2); Total Protein 7.2 g/dL (6.6-8.7)
[2020-06-28] MEDS: levothyroxine 150 mcg Tablet PO (08:37)
[2020-06-28] MEDS: pantoprazole DR 40 mg Tablet PO (08:37)
[2020-06-28] MEDS: FUROsemide 40 mg Tablet PO (08:37)
[2020-06-28] MEDS: carvedilol 25 mg Tablet PO (08:37)
[2020-06-28] MEDS: acetaminophen 325 mg Tablet 650 MG PO (11:35)
[2020-06-28 11:41] LABS: Glucose Point of Care 161 mg/dL (70-110)
[2020-06-28 12:00] VITALS: BP 158/63; PULSE 74; RESP 18; TEMP 37.1; O2SAT 98
--- NOTE | 2020-06-28 12:14 | P.DS_ITS ---
Discharge Providers Date of Discharge: June 28, 2020 Attending Provider at Discharge: Arnold Hernandez Primary Care Provider: Karen Bear MD Diagnoses at Discharge Discharge Diagnosis (1) Anemia: Status: Acute Qualifiers: Anemia type: unspecified type Qualified Code(s): D64.9 - Anemia, unspecified Reason for Visit Reason for Visit: end stage renal disease Hospital Course Hospital Course: Very pleasant 59-year-old lady was placed in observation due to persistent anemia despite 1 unit. Received transfusion, with hemoglobin 6.3 after the transfusion. Additional unit was prepared and transfused. Subsequently hemoglobin remained stable at seven-point 1 in the evening and in the morning. It appears that due to difficulties during hemodialysis and unknown amount of her blood could not be returned to her due to clotting in the machine. This likely contributed to acute on chronic anemia. We checked Hemoccult in the hospital and this was normal. Iron studies appear to show normal iron saturation. H. pylori serology was negative, stool antigen was ordered and is pending, will need to be followed up. She is empirically started on PPI. Has a history of colonic polyp. Please reassess anemia, if needed refer for additional evaluation by endoscopy. She does take as needed aspirin for palpitations, without any history of RI/known coronary disease or CVA. Discussed with her increased risk of bleeding and unclear benefit from primary prophylaxis using aspirin. B12, folic acid were previously checked in the end of May and were normal. She is instructed to revisit anemia again with her pleating machine operator in office with consideration of erythropoietin. In case of persistent anemia hematology referral may be considered. At this time no evidence of hemolysis. She is instructed to also discuss with her primary care doctor regarding fatty liver infiltration noted in the past. So far there has been no sign of cirrhosis yet, but liver will need to be monitored for any progression to fibrosis or cirrhosis. She is otherwise feeling well. Is strong enough and happy to return home. All questions answered to her satisfaction. Physical Exam Const: COMMON NORMALS: no acute distress, patient oriented x3 and alert NUTRITIONAL APPEARANCE: obese ORIENTATION/CONSCIOUSNESS: Yes awake OTHER: Very pleasant, conversant, sitting up at the edge of the bed. Not in discomfort. Pale. HENMT: COMMON NORMALS: oropharynx normal Neck/C-Spine: COMMON NORMALS: no JVD Resp: COMMON NORMALS: normal respiratory effort and clear to auscultation bilaterally AUSCULTATION: clear to auscultation bilaterally Cardio: COMMON NORMALS: no JVD, regular rhythm, S1 normal heart sound present, S2 normal heart sound present and No murmurs present (Cardio) RHYTHM: regular rhythm HEART SOUNDS: S1 normal heart sound present and S2 normal heart sound present GI: COMMON NORMALS: Normal to inspection, nondistended, normoactive bowel sounds present, Soft to palpation and non-tender PALPATION: Yes Soft to palpation Extremity: COMMON NORMALS: no joint enlargement GENERAL: Yes edema (Chronic edema) Neuro: COMMON NORMALS: patient oriented x3 and moves all extremities SENSORIUM/ORIENTATION: Yes alert Skin: COMMON NORMALS: no rashes or lesions noted GENERAL SKIN EXAM: no rashes or lesions noted OTHER: Chronic nonpitting, and pitting lower extremity edema, cellulitis appears resolved Discharge Data Data Completed and Pending: Pending at discharge Category Date Time Status Complete Blood Co unt w/Auto AM LABS Lab 06/29/20 04:00 Ordered Complete Blood Co unt w/Auto AM LABS Lab 06/30/20 04:00 Ordered Comprehensive Met abolic Panel AM LA BS Lab 06/29/20 04:00 Ordered Comprehensive Met abolic Panel AM LA BS Lab 06/30/20 04:00 Ordered Helicobacter Pylo ri AG Stool Routin e Lab 06/27/20 19:45 Received Labs from last 24 hours 06/28/20 06/28/20 06/28/20 11:37 02:58 02:58 WBC 9.3 RBC 2.36 L Hgb 7.1 L Hct 23.2 L MCV 98.3 MCH 30.1 MCHC 30.6 RDW 16.8 H Plt Count 270 MPV 9.0 Neut % (Auto) 63.0 Lymph % (Auto) 16.1 [place] % (Auto) 12.6 Eos % (Auto) 6.4 Baso % (Auto) 1.1 Neut # (Auto) 5.85 Lymph # (Auto) 1.5 [place] # (Auto) 1.2 H Eos # (Auto) 0.6 Baso # (Auto) 0.1 Nucleated RBC % (a uto) 0 Nucleated RBCs # 0.0 Sodium 135 L Potassium 4.2 Chloride 98 Carbon Dioxide 30 H Anion Gap 11.2 BUN 24 H Creatinine 4.6 H GFR Calculation 9.8 L Glucose 117 H POC Glucose 161 Calculated Osmolal ity 278 L Calcium 7.8 L Iron TIBC % Saturation Unsat Iron Binding Ferritin Total Bilirubin 0.3 AST 18 ALT 7 Alkaline Phosphata se 84 Total Protein 7.2 Albumin 2.5 L Globulin 4.7 H TSH Stool H. pylori Ag H. pylori IgG Anti body Blood Type Rho(D) Type Antibody Screen Crossmatch 06/27/20 06/27/20 06/27/20 21:15 20:07 19:45 WBC RBC Hgb 7.1 L Hct MCV MCH MCHC RDW Plt Count MPV Neut % (Auto) Lymph % (Auto) [place] % (Auto) Eos % (Auto) Baso % (Auto) Neut # (Auto) Lymph # (Auto) [place] # (Auto) Eos # (Auto) Baso # (Auto) Nucleated RBC % (a uto) Nucleated RBCs # Sodium Potassium Chloride Carbon Dioxide Anion Gap BUN Creatinine GFR Calculation Glucose POC Glucose 137 Calculated Osmolal ity Calcium Iron TIBC % Saturation Unsat Iron Binding Ferritin Total Bilirubin AST ALT Alkaline Phosphata se Total Protein Albumin Globulin TSH Stool H. pylori Ag Pending H. pylori IgG Anti body Blood Type Rho(D) Type Antibody Screen Crossmatch 06/27/20 06/27/20 06/27/20 14:39 08:10 08:10 WBC RBC Hgb 6.3 L* Hct 20.8 L* MCV MCH MCHC RDW Plt Count MPV Neut % (Auto) Lymph % (Auto) [place] % (Auto) Eos % (Auto) Baso % (Auto) Neut # (Auto) Lymph # (Auto) [place] # (Auto) Eos # (Auto) Baso # (Auto) Nucleated RBC % (a uto) Nucleated RBCs # Sodium Potassium Chloride Carbon Dioxide Anion Gap BUN Creatinine GFR Calculation Glucose POC Glucose Calculated Osmolal ity Calcium Iron 33 L TIBC 119 % Saturation 27.7 Unsat Iron Binding 86 L Ferritin 1806 H Total Bilirubin AST ALT Alkaline Phosphata se Total Protein Albumin Globulin TSH 2.61 Stool H. pylori Ag H. pylori IgG Anti body Negative Blood Type Rho(D) Type Antibody Screen Crossmatch 06/27/20 08:10 WBC RBC Hgb Hct MCV MCH MCHC RDW Plt Count MPV Neut % (Auto) Lymph % (Auto) [place] % (Auto) Eos % (Auto) Baso % (Auto) Neut # (Auto) Lymph # (Auto) [place] # (Auto) Eos # (Auto) Baso # (Auto) Nucleated RBC % (a uto) Nucleated RBCs # Sodium Potassium Chloride Carbon Dioxide Anion Gap BUN Creatinine GFR Calculation Glucose POC Glucose Calculated Osmolal ity Calcium Iron TIBC % Saturation Unsat Iron Binding Ferritin Total Bilirubin AST ALT Alkaline Phosphata se Total Protein Albumin Globulin TSH Stool H. pylori Ag H. pylori IgG Anti body Blood Type A Positive Rho(D) Type Positive Antibody Screen Negative Crossmatch See Detail Vitals: Last Vital Signs Temp 99.0 F 06/28/20 03:50 Pulse 78 06/28/20 03:50 Resp 20 H 06/28/20 03:50 BP 164/60 06/28/20 03:50 Pulse Ox 96 06/28/20 03:50 Discharge Plan Discharge Patient Disposition: Home Prescriptions: New pantoprazole 40 mg Tablet,Delayed Release (Dr/Ec) 40 mg PO BID Qty: 60 RF: 0 Continued gabapentin 300 mg capsule 300 mg PO TID Qty: 90 RF: 1 levothyroxine [Synthroid] 150 mcg tablet 150 mcg PO DAILY RF: 0 furosemide [Lasix] 40 mg tablet 40 mg PO DAILY RF: 0 ergocalciferol (vitamin D2) 1,250 mcg (50,000 unit) Capsule 1,250 mcg PO DAILY RF: 0 RenaPlex 800 mcg- 12.5 mg Tablet 1 tab PO DAILY RF: 0 Novolin 70/30 U-100 Insulin 100 unit/mL (70-30) suspension See Rx Instructions .ROUTE .COMPLEX RF: 0 hydrocodone-acetaminophen 5-325 mg tablet 1 tab PO Q6H PRN (Reason: pain) Qty: 30 RF: 0 sodium bicarbonate 650 mg Tablet 650 mg PO TID Qty: 60 RF: 0 ferrous sulfate 325 mg (65 mg iron) Tablet,Delayed Release (Dr/Ec) 325 mg PO BIDWM Qty: 60 RF: 0 carvedilol 25 mg tablet 25 mg PO BID RF: 0 Discontinued doxycycline monohydrate 100 mg Tablet 100 mg PO BID Qty: 14 RF: 0 Discharge Orders: Discharge Order (Routine); Ordered 06/28/20 Ordered By: Arnold Hernandez Referrals: Alfonso Lora MD [Referring] - 07/01/20 (Anemia) Karen Bear MD [Primary Care Provider] - 4-7 days Diet: Usual diet Activity: Limit activity as instructed Activity Restrictions/Additional Instructions: Please discuss with your pleating machine operator regarding anemia, as well as with your primary care doctor. You likely may benefit from additional red blood cell unit transfusion with hemodialysis tomorrow. For now you are started on acid gabbie medication pantoprazole. Occult blood in the stool was negative. Discuss with your primary care doctor consideration of repeating this. Discuss also regarding referral for additional evaluation of your anemia. If pneumonia is persistent despite treatment by your pleating machine operator, referral to a electrical system specialist. Continue follow-up with your rcis. Discharge Attestations Time Spent in Discharge Care*: greater than 30 min Status at Discharge: Cognitive status at discharge: cognitively intact , Behavioral status at discharge: cooperative , Quality Metrics Clinical Quality Measures During this hospital stay, did patient experience: None Coding Level of Care Code Acute Mechanical Apprentice for [facility] Diagnoses Anemia D64.9 Anemia type: unspecified type
== END 2020-06-28 13:55 | disposition home or self-care (01) ==
LOC: OPS 07:15 → MEDSURG 07:52
PROVIDERS: Internal Medicine; PCP Family Medicine; Referring Provider Internal Medicine Nephrology; Visit Provider Internal Medicine Nephrology
DX: D64.9 Anemia, unspecified (principal)
CPT/HCPCS: 36415; 36416; 36430; 80053; 82274; 82728; 82962; 83540; 83550; 84443; 85014; 85018; 85025; 86677; 86850; 86900; 86920; 87338; 96372; J1815 ×2; P9016

== ENCOUNTER 2020-06-29 14:25 | Outpatient (CLI) | payer MEDICARE, MEDICAID, SELFPAY ==
[2020-06-29 15:04] LABS: Hematocrit 24.6 % (37.0-47.0); Hemoglobin 7.9 g/dL (11.5-15.3)
== END 2020-06-29 14:26 | disposition home or self-care (01) ==
PROVIDERS: PCP Family Medicine; Visit Provider Internal Medicine Nephrology
DX: D64.9 Anemia, unspecified (principal)
CPT/HCPCS: 83010; 85014; 85018; 86880

== ENCOUNTER 2020-09-03 09:47 | Outpatient (CLI) | payer MEDICARE, MEDICAID, SELFPAY | END 2020-09-03 09:48 | disposition home or self-care (01) | LOC: WOUND 09:48 | PROVIDERS: PCP Family Medicine; Visit Provider Nurse Practitioner Family | DX: E11.621 Type 2 diabetes mellitus with foot ulcer (principal); L97.412 Non-pressure chronic ulcer of right heel and midfoot with fat layer exposed; L97.421 Non-pressure chronic ulcer of left heel and midfoot limited to breakdown of skin | CPT/HCPCS: 11042; 11045; 87070; 87077; 87176; 87186; 87205; G0463; L4397 ==

== ENCOUNTER 2020-09-10 10:06 | Outpatient (CLI) | payer MEDICARE, MEDICAID, SELFPAY | END 2020-09-10 10:07 | disposition home or self-care (01) | LOC: WOUND 10:07 | PROVIDERS: PCP Family Medicine; Visit Provider Nurse Practitioner Family | DX: L89.622 Pressure ulcer of left heel, stage 2; L89.612 Pressure ulcer of right heel, stage 2 | CPT/HCPCS: 11042; 11045 ==

== ENCOUNTER 2020-09-17 09:22 | Outpatient (CLI) | payer MEDICARE, MEDICAID, SELFPAY | END 2020-09-17 09:23 | disposition home or self-care (01) | LOC: WOUND 09:23 | PROVIDERS: PCP Family Medicine; Visit Provider Nurse Practitioner Family | DX: E11.621 Type 2 diabetes mellitus with foot ulcer; L97.411 Non-pressure chronic ulcer of right heel and midfoot limited to breakdown of skin; L97.421 Non-pressure chronic ulcer of left heel and midfoot limited to breakdown of skin | CPT/HCPCS: 11042; 11045 ==

== ENCOUNTER 2020-09-24 09:07 | Outpatient (CLI) | payer MEDICARE, MEDICAID, SELFPAY | END 2020-09-24 09:08 | disposition home or self-care (01) | LOC: WOUND 09:08 | PROVIDERS: PCP Family Medicine; Visit Provider Nurse Practitioner Family | DX: E11.621 Type 2 diabetes mellitus with foot ulcer (principal); L97.411 Non-pressure chronic ulcer of right heel and midfoot limited to breakdown of skin; L97.421 Non-pressure chronic ulcer of left heel and midfoot limited to breakdown of skin | CPT/HCPCS: 11042; 11045 ==

== ENCOUNTER 2020-10-01 08:59 | Outpatient (CLI) | payer MEDICARE, MEDICAID, SELFPAY | END 2020-10-01 09:00 | disposition home or self-care (01) | LOC: WOUND 09:00 | PROVIDERS: PCP Family Medicine; Visit Provider Nurse Practitioner Family | DX: L89.620 Pressure ulcer of left heel, unstageable (principal); L89.610 Pressure ulcer of right heel, unstageable | CPT/HCPCS: G0463 ==

== ENCOUNTER 2020-10-21 09:10 | Outpatient (CLI) | payer MEDICARE, MEDICAID, SELFPAY ==
[2020-10-21 11:01] LABS: Basophils # 0.1 10^3/uL (0.0-0.1); Basophils % 0.5 %; Eosinophils # 0.5 10^3/uL (0.0-0.8); Eosinophils % 4.1 %; Hematocrit 25.8 % (37.0-47.0); Hemoglobin 8.2 g/dL (11.5-15.3); Lymphocytes % 7.7 %; Mean Corpuscular HGB Conc 31.8 g/dL (30.0-36.0); Mean Corpuscular Hemoglobin 30.7 pg (28.0-34.0); Mean Corpuscular Volume 96.6 fL (81-99); Mean Platelet Volume 8.5 fL (7.4-10.4); Monocytes # 1.5 10^3/uL (0.2-0.9); Monocytes % 11.9 %; Neutrophils # 9.22 10^3/uL (1.8-7.7); Neutrophils % 74.3 %; Nucleated Red Blood Cells % 0 %; Platelet Count 302 10^3/cmm (130-400); Red Blood Count 2.67 10^6/uL (4.1-5.3); Red Cell Distribution Width 17.5 % (12.1-15.1); White Blood Count 12.4 10^3/uL (4.0-10.0)
[2020-10-21 11:21] LABS: Alanine Aminotransferase 10 U/L (0-33); Albumin Level 2.4 g/dL (3.5-5.2); Alkaline Phosphatase 163 IU/L (35-105); Anion Gap 26.3 (5-19); Aspartate Amino Transferase 12 U/L (0-32); Blood Urea Nitrogen 77 mg/dL (6-20); Calcium 6.6 mg/dL (8.5-10.5); Carbon Dioxide 19 mmol/L (22-29); Chloride 93 mmol/L (98-107); Globulin 4.8 g/dL (1.3-4.6); Glomerular Filtration Rate 2.7 mL/min (90-130); Glucose 147 mg/dL (65-115); Homocysteine 17.81; Lactate Dehydrogenase 337 U/L (135-214); Osmolality Calculated 302 mOsm/kg (285-295); Potassium 5.3 mmol/L (3.5-5.1); Sodium 133 mmol/L (136-145); Total Bilirubin 0.4 mg/dL (0.15-1.2); Total Protein 7.2 g/dL (6.6-8.7)
[2020-10-21 11:35] LABS: Vitamin B12 432 pg/mL (232-1245)
[2020-10-21 11:57] LABS: Erythrocyte Sedimentation Rate > 120 mm/hr (0-15)
[2020-10-21 12:10] LABS: Folate Level 7.8 ng/mL (4.8-37.3)
--- NOTE | 2020-10-22 09:14 | ONC CON_ITS ---
Dr. Goel New Patient Note Patient: Alesia Shaw Unit #: [id number]: 1960 Dicatated By: Darerll Goel M.D.Date of Visit: Oct 21, 2020 Onc MED New Patient/Consult Referring Physician: Dr. CARLOS Lora M.D. Chief Complaint: Anemia. History of Present Illness: This is a 60-year-old woman with transfusion dependent anemia. Her chronic medical illnesses included hypertension, hyperlipidemia, type 2 diabetes, and hypothyroidism. In November 2017 she underwent laparoscopic cholecystectomy. During that hospitalization, she had become moderately anemic. Her serum iron studies at that time were suggestive of iron deficiency. She has since then remained anemic to the point that she has now become transfusion dependent. Her further clinical course has been very complicated, most significantly by an epidural abscess at T11-12 due to MRSA in May 2018. Subsequent to that illness she had progressive decline in renal function to the point that she began hemodialysis in March 2019, subsequently transitioned to home peritoneal dialysis. She also developed congestive heart failure and chronic lymphedema of the lower extremities. In April 2020 she was hospitalized with aortic valve endocarditis due to methicillin sensitive staph aureus. She has remained anemic, requiring PRBC transfusions on 6 occasions between April and June 2020, now totaling 9 units. She has had negative stool FIT on 2 occasions. She had undergone EGD and colonoscopy back in August 2018 and she had EGD again in April 2020. She remains on home peritoneal dialysis. She is generally weak and essentially not on ambulatory. ECOG score is 3. She says her appetite is not too great. Her weight has fluctuated due to her edema and dialysis. She has not had any recent fever and she does not have night sweating. She has shortness of breath which gets worse when she tries to lie flat. She has nonproductive cough, and she currently is being treated for bronchitis. She occasionally has chest pain. She sometimes has nausea. She has no other GI or complaints. She has some chronic generalized joint pain, particularly in her hands. She has been having pain in her lower back/tailbone and in her left hip and leg after a fall last week. She does not complain of headache or dizziness. She sometimes has numbness in her hands. Past Medical History: Her medical history includes chronic lymphedema, diastolic congestive heart failure, end stage renal disease, hyperlipidemia, hypertension, hypothyroidism, type II diabetes, aortic valve endocarditis due to MSSA in 2019, and epidural abscess due to MRSA in 2017. Past Surgical History: Her surgical/procedural history includes EGD in 2019, laparoscopic placement of peritoneal dialysis catheter in 2018, EGD and colonoscopy in 2017, spinal surgery for T11-12 epidural abscess in 2017, cholecystectomy in 2017, and lumbar laminectomy for ruptured disc in 1997. Medications: Carvedilol 1 Tablet (of 25 mg) Oral b.i.d., Cefdinir 1 Capsule (of 300 mg) Oral b.i.d., Chlorpheniramine-Phenylephrine 5 mL (of 4-10 mg/5mL) Liquid Oral q 6 hours PRN, Ergocalciferol 1 Capsule (of 1.25 mg ) Oral daily, Euthyrox 1 Tablet (of 150 mcg) Oral daily, Ferrous Sulfate 1 Tablet (of 325 (65 fe) mg) Oral b.i.d., Furosemide 1 Tablet (of 40 mg) Oral daily, Gabapentin 1 Capsule (of 300 mg) Oral t.i.d., HYDROcodone-Acetaminophen 1 Tablet (of 5-325 mg) Oral q 4 hours PRN, Insulin NPH (Human) (Isophane) (100 Units/mL) Subcutaneous Take as Directed, Levothyroxine Sodium 1 Tablet (of 150 mcg) Oral daily, Sodium Bicarbonate 1 Tablet (of 650 mg) Oral t.i.d., Vitamin B Complex 1 Tablet Oral daily Allergies: Iodinated Contrast Dye Social History: Ms. Shaw is . She is a non-smoker. She has occasional alcohol use. Family History: Both parents are living. Father has diabetes. Mother is been treated for uterine cancer and breast cancer. Two brothers are in good health. She has no children. Review Of Symptoms: Constitutional - She is generally weak and she has no energy. She has been non-ambulatory and in a wheelchair since April. Her appetite is good and her weight is up related to lymphedema. No fever, night sweats, or hot flashes. ECOG score is 3, Eyes - She has had loss in vision since 2018, ENMT - She has chronic sinusitis. No mouth sores. No sore throat or difficulty swallowing. She has a some tenderness to the right side of her neck, Hematologic/Lymphatic - No abnormal bruising or bleeding, Respiratory - She has shortness of breath with and without activity. She has a chronic dry cough. No pleuritic pain or hemoptysis. She is currently being treated for bronchitis, Cardiovascular - She occasionally has chest pain. No palpitations, Gastrointestinal - She has occasional nausea. No vomiting. No heartburn or acid reflux. No diarrhea or constipation. No blood in the stool or black stools, Genitourinary (F) - No dysuria or hematuria. No urinary frequency. No urgency or incontinence, Musculoskeletal - She has generalized chronic joint pain, especially in her hands. She fell last week and she has since then had pain in her lower back and left hip and leg, Integumentary - She has chronic lymphedema in her lower extremities, Neurologic - No headache or dizziness. She sometimes has numbness in her hands. No other focal neurologic symptoms, Psychiatric - No anxiety or depression. She does not sleep well. Vital Signs: Performed on Oct 21, 2020 09:38: 10, 41.02 (HIGH), 2.24 sq.m, 66.50 in, 96 %, 96 /min, 24 /min, 147/76 mm(hg) (HIGH), 98.9 F (HIGH), and 258.0 lbs (HIGH). Physical Examination: Constitutional - She appears generally weak, Eyes - Sclerae nonicteric. Conjunctivae clear, ENMT - No lesions noted in the oral cavity, Neck - No mass or thyromegaly. There is mild tenderness in the right submandibular area, Hematologic/Lymphatic - No cervical, clavicular, or axillary adenopathy, Respiratory - Lungs are clear with good air movement bilaterally, Cardiovascular - Heart rhythm is regular. There is a mild tachycardia. There is no murmur, gallop, or rub noted, Abdomen - Soft and non-tender. Liver and spleen are not enlarged. There is no abdominal mass or ascites noted and there is no inguinal adenopathy, Back/Spine - No spine or CVA tenderness noted, Extremities - There is severe, chronic swelling of both legs. I am not able to palpate pedal pulses, Integumentary - No rashes. No suspicious skin lesions noted, Neurologic - No focal neurologic deficits noted. Impression: 1. Patient with persistent/chronic anemia, now transfusion dependent. Etiology is uncertain, but in her particular situation the major concerns would be the possibility of multiple myeloma or myelodysplastic syndrome. 2. She developed end-stage renal disease from 2706-8629, and she is now on home peritoneal dialysis. Her anemia has not been responsive to treatment with GARRETT's. 3. In April 2020 she was treated for aortic valve endocarditis due to MSSA. 4. In May 2018 she was treated for T11-12 epidural abscess due to MRSA. Her other medical illnesses include: 5. Hypertension. 6. Hyperlipidemia. 7. Type 2 diabetes. 8. Diastolic congestive heart failure. 9. Chronic lower extremity lymphedema. 10. Hypothyroidism. Plan: The laboratory findings were reviewed with the patient and we discussed the clinical implications. She has developed transfusion dependent anemia in the setting of end-stage renal disease, and anemia has not been responding to treatment with an erythropoietin stimulating agent. As noted, in her situation I am mainly concerned about the possibility of multiple myeloma or myelodysplastic syndrome. She will have additional laboratory studies today to include CBC, comprehensive metabolic profile, reticulocyte count, LDH and haptoglobin levels, B12 and folate levels, methylmalonic acid and homocysteine levels, sed rate, serum protein electrophoresis, and serum free light chain assay. I will review the blood smear. She will have further evaluation as indicated. I anticipate that she will need to undergo bone marrow aspiration/biopsy. Signed By: Darrell Goel M.D. <<Signature on File>>
[2020-10-22 11:53] LABS: PROTEIN, TOTAL 6.5 g/dL (6.1-8.1)
[2020-10-22 14:59] LABS: KAPPA LIGHT CHAIN, FREE, SERUM 473.2 mg/L (3.3-19.4); KAPPA/LAMBDA LIGHT CHAINS FREE 1.75 (0.26-1.65); LAMBDA LIGHT CHAIN, FREE, SERU 270.5 mg/L (5.7-26.3)
[2020-10-23 14:38] LABS: ALPHA 1 GLOBULIN 0.7 g/dL (0.2-0.3); ALPHA 2 GLOBULIN 1.1 g/dL (0.5-0.9); BETA 1 GLOBULIN 0.3 g/dL (0.4-0.6); BETA 2 GLOBULIN 0.5 g/dL (0.2-0.5); GAMMA GLOBULIN 1.9 g/dL (0.8-1.7)
[2020-10-25 19:52] LABS: Methylmalonic Acid 1460 nmol/L (87-318)
== END 2020-10-21 09:11 | disposition home or self-care (01) ==
LOC: ONCMED 09:16
PROVIDERS: PCP Family Medicine; Visit Provider Internal Medicine Medical Oncology
DX: D64.9 Anemia, unspecified (principal); I13.2 Hypertensive heart and chronic kidney disease with heart failure and with stage 5 chronic kidney disease, or end stage renal disease; E11.22 Type 2 diabetes mellitus with diabetic chronic kidney disease; N18.6 End stage renal disease; I50.30 Unspecified diastolic (congestive) heart failure; E78.5 Hyperlipidemia, unspecified; I89.0 Lymphedema, not elsewhere classified; E03.9 Hypothyroidism, unspecified; Z79.4 Long term (current) use of insulin; Z86.14 Personal history of Methicillin resistant Staphylococcus aureus infection
CPT/HCPCS: 36415; 80053; 82607; 82746; 83010; 83090; 83615; 83883; 83921; 84155; 84165; 85025; 85045; 85651; 99204

== ENCOUNTER 2020-10-27 16:45 | Outpatient (CLI) | payer MEDICARE, MEDICAID, SELFPAY ==
[2020-10-27 17:08] LABS: Basophils # 0.1 10^3/uL (0.0-0.1); Basophils % 0.4 %; Eosinophils # 0.5 10^3/uL (0.0-0.8); Eosinophils % 3.2 %; Hematocrit 24.4 % (37.0-47.0); Hemoglobin 7.7 g/dL (11.5-15.3); Lymphocytes % 6.5 %; Mean Corpuscular HGB Conc 31.6 g/dL (30.0-36.0); Mean Corpuscular Hemoglobin 30.7 pg (28.0-34.0); Mean Corpuscular Volume 97.2 fL (81-99); Mean Platelet Volume 8.8 fL (7.4-10.4); Monocytes # 1.6 10^3/uL (0.2-0.9); Monocytes % 10.4 %; Neutrophils # 12.04 10^3/uL (1.8-7.7); Neutrophils % 78.6 %; Nucleated Red Blood Cells % 0 %; Platelet Count 323 10^3/cmm (130-400); Red Blood Count 2.51 10^6/uL (4.1-5.3); Red Cell Distribution Width 16.4 % (12.1-15.1); White Blood Count 15.3 10^3/uL (4.0-10.0)
[2020-10-27 17:52] LABS: Alanine Aminotransferase 11 U/L (0-33); Albumin Level 2.4 g/dL (3.5-5.2); Alkaline Phosphatase 160 IU/L (35-105); Anion Gap 27.3 (5-19); Aspartate Amino Transferase 14 U/L (0-32); Blood Urea Nitrogen 70 mg/dL (6-20); Calcium 6.6 mg/dL (8.5-10.5); Carbon Dioxide 19 mmol/L (22-29); Chloride 94 mmol/L (98-107); Globulin 4.8 g/dL (1.3-4.6); Glucose 98 mg/dL (65-115); Osmolality Calculated 300 mOsm/kg (285-295); Potassium 5.3 mmol/L (3.5-5.1); Sodium 135 mmol/L (136-145); Total Bilirubin 0.4 mg/dL (0.15-1.2); Total Protein 7.2 g/dL (6.6-8.7)
== END 2020-10-27 16:46 | disposition home or self-care (01) ==
LOC: LAB 16:50
PROVIDERS: PCP Family Medicine; Visit Provider Internal Medicine Nephrology
DX: D63.1 Anemia in chronic kidney disease (principal)
CPT/HCPCS: 80053; 85025

== ENCOUNTER 2020-11-16 13:06 | Outpatient (CLI) | payer MEDICARE, MEDICAID, SELFPAY | END 2020-11-16 13:07 | disposition home or self-care (01) | LOC: WOUND 13:07 | PROVIDERS: PCP Family Medicine; Visit Provider Thoracic Surgery (Cardiothoracic Vascular Surgery) | DX: L89.610 Pressure ulcer of right heel, unstageable (principal); L89.620 Pressure ulcer of left heel, unstageable | CPT/HCPCS: 11042; 11045 ==

== ENCOUNTER 2020-11-23 06:42 | Day surgery (SDC) | payer MEDICARE, MEDICAID, SELFPAY ==
[2020-11-20 13:05] VITALS: BMI 42.3
[2020-11-23] VITALS (10 sets, daily range): BP systolic 129–146; BP diastolic 52–74; PULSE 73–83; RESP 12–18; TEMP 36.4–36.8; O2SAT 91–100
--- NOTE | 2020-11-23 | SCC_ITS ---
Procedure Done: Placement of tunneled temporary dialysis catheter 16 [place] and 31 cm length via the right internal jugular vein Ultrasound and fluoroscopic interpretation was done by me through the whole entire procedure 54.8 seconds of fluoroscopic guidance, for a cumulative dose of 11.75 mGy, was provided to Dr. Medina by the radiology department. C-arm images of the chest were saved for the patient's permanent record. [facility]
--- NOTE | 2020-11-23 06:42 | SC_ITS ---
WS: [id number] INTRAOPERATIVE TECHNIQUE: 2 Spot fluoroscopic images for intraoperative purposes. FLUOROSCOPY TIME: 54.8 seconds CLINICAL INFORMATION: Powerport Placement COMPARISON: None. FINDINGS: Right dual-lumen Port-A-Cath with tips in the right atrium in good position. No visualized pneumothor ax. Endotracheal tube in good position. SC/C-arm [place] for CVA 10125 IMPRESSION: Images obtained for intraoperative purposes.
[2020-11-23] MEDS: sodium chloride 0.9% 1,000 ML 30 ML IV (07:45)
[2020-11-23 07:48] LABS: Glucose Point of Care 124 mg/dL (70-110)
--- NOTE | 2020-11-23 08:59 | ANES.PREANE2 ---
Pre-Anesthetic Assessment Pre-Anesthetic Assessment: Height/Weight: Height 1.69 m Weight 120.656 kg Temp Pulse Resp BP Pulse Ox 98.2 F 83 18 137/52 100 11/23/20 07:16 11/23/20 07:16 11/23/20 07:16 11/23/20 07:16 11/23/20 07:16 Preop Diagnosis: Lack of IV access Proposed Procedure: Operation Date: 11/23/20 08:20 Proposed Procedures p Portacath Placement 30941 [id number] D64.9(Not Applicable) - Denys Medina MD s PD Cath Removal(Not Applicable) - Denys Medina MD s Hemodialysis Catheter Insertion(Not Applicable) - Denys Medina MD Was Beta Cristo taken within 24 hours: Yes Social: Social History: No alcohol and No tobacco Exam: Pre-Anes Outpt Exam: alert, oriented x 3, clear to auscultation bilaterally and regular rate & rhythm Airway: Submandibular: WNL Cervical ROM: WNL MP: 2 Dentition: Full Pulmonary: Pulmonary: None reported CV/HEM: CV/HEM: Anemia : : Chronic renal failure Hepatic: Hepatic: None reported GI: GI: None reported Metabolic: Metabolic: DM and Morbid obesity Musc/skel: Musc/skel: None reported Neuropsych: Neuropsych: None reported Anesthetic Plan: ASA status: 3 Anesthesia: General Risk of > 500 ml blood loss (7ml/kg in children): No Meds/Allergies Current Medications: Current Medications Generic Name Dose Route Start Last Admin Trade Name Freq PRN Reason Stop Dose Admin Sodium Chloride 1,000 mls @ 30 ml s/hr 11/23/20 06:45 11/23/20 07:45 Sodium Chloride 0.9% IV 11/24/20 06:44 30 mls/hr .Q24H SHELBY Administration PFSH Anesthesia PFSH: Medical History (Updated 11/02/20 @ 14:37 by Karen Bear MD) Atypical chest pain Congestive heart failure Diabetes Diabetes mellitus type 2, insulin-dependent ESRD (end stage renal disease) History of colon polyps History of congestive heart failure History of MRSA infection Hyperlipidemia Hypertension Hypothyroidism MSSA (methicillin susceptible Staphylococcus aureus) Recent transesophageal echo rule out infective endocarditis, MRI of spine rule out epidural abscess, Status post IV cefazolin course finished on 06/02 Surgical History Central vascular catheter in place upon arrival History of cholecystectomy History of lumbar surgery Due to epidural abscess in March 2018 Peritoneal dialysis catheter in place Family History Mother Cancer Uterine and breast cancer Father Diabetes Other CAD (coronary artery disease) Social History Smoking and tobacco status: never smoked Alcohol intake: current Alcohol intake frequency: holidays/special occasions only Female Reproductive History: Date of last menstrual period: 05/28/14 Data Anesthesia Other Labs: Laboratory Results - last 48 hr 11/23/20 07:37 POC Glucose 124 H Cardiac Studies: No Data to Display
--- NOTE | 2020-11-23 09:55 | W.PM.OPSFHP ---
Same Day Surgery H&P Indication for Procedure/HPI DATE OF PROCEDURE: November 23, 2020 CHIEF COMPLAINT/INDICATIONFOR SURGICAL PROCEDURE: Hemodialysis catheter placement PREOP DIAGNOSIS: Requiring hemodialysis catheter/end-stage renal disease PLANNED PROCEDRUE: Operation Date: 11/23/20 08:20 Proposed Procedures p Portacath Placement [id number] D64.9(Not Applicable) - Denys Medina MD s PD Cath Removal(Not Applicable) - Denys Medina MD s Hemodialysis Catheter Insertion(Not Applicable) - Denys Medina MD This is a pleasant 60 years old female patient with multiple medical comorbidities requiring hemodialysis catheter as currently patient is not getting the goals via the peritoneal dialysis catheter per nephrology service. Patient was supposed to get a Port-A-Cath today originally yet I did receive a phone call from dialysis unit last Monday about adding hemodialysis catheter and explantation of the peritoneal dialysis catheter. Today after further clarification from Dr. Lora himself at this point he elected to request only the hemodialysis catheter and hold off putting Port-A-Cath and explantation of the PD catheter. It seems that there is some sort of infection of unknown etiology and he would rather confined the procedure today only to the HD catheter. Patient understands the discussion and we will proceed accordingly ROS All systems have been reviewed negative except as per the above or per problem list Medications/Allergies* Home Medications Medication Instructions Recorded Confirmed Type RenaPlex 1 tab PO DAILY 04/13/20 11/23/20 History furosemide [Lasix] 40 mg PO PRN 06/08/20 11/23/20 History carvedilol 25 mg PO DAILY 06/27/20 11/23/20 History levothyroxine [Synthroid] 150 mcg PO DAILY 11/20/20 11/23/20 History Allergies/Adverse Reactions Allergy/AdvReac Type Severity Reaction Status Date / Time Iodinated Contrast Media Allergy ALGY-Hives Verified 11/23/20 09:57 Current Medications: Generic Name Dose Route Start Last Admin Trade Name Freq PRN Reason Stop Dose Admin Sodium Chloride 1,000 mls @ 30 mls/hr 11/23/20 06:45 11/23/20 07:45 Sodium Chloride 0.9% IV 11/24/20 06:44 30 mls/hr .Q24H SHELBY Administration Pertinent History/Comorbid Conditions* Medical History (Updated 11/02/20 @ 14:37 by Karen Bear MD) Atypical chest pain Congestive heart failure Diabetes Diabetes mellitus type 2, insulin-dependent ESRD (end stage renal disease) History of colon polyps History of congestive heart failure History of MRSA infection Hyperlipidemia Hypertension Hypothyroidism MSSA (methicillin susceptible Staphylococcus aureus) Recent transesophageal echo rule out infective endocarditis, MRI of spine rule out epidural abscess, Status post IV cefazolin course finished on 06/02 Surgical History (Updated 09/08/20 @ 06:44 by Denys Medina MD) Central vascular catheter in place upon arrival History of cholecystectomy History of lumbar surgery Due to epidural abscess in March 2018 Peritoneal dialysis catheter in place Family History (Updated 04/13/20 @ 12:40 by Mona Angel DO) Diabetes Father CAD (coronary artery disease) Cancer Mother Uterine and breast cancer Social History Smoking and tobacco status: never smoked Alcohol intake: current Alcohol intake frequency: holidays/special occasions only Pertinent Exam Findings alert, oriented x 3, clear to auscultation bilaterally, regular rate & rhythm, operative site marked and procedure specific exam findings (Abdominal examination nontender there are nondistended soft, morbidly obese) Peritoneal dialysis catheter in place Recommendations Surgery/Procedure today (Placement of tunneled hemodialysis catheter. Informed consent per chart) Coding Level of Care Code Acute Store Facility Technician for Gregorio Thompson
[2020-11-23] MEDS: heparin, porcine 1,000 unit/mL INJ 10 mL 10000 UNIT IRRIGATION (10:51)
[2020-11-23] MEDS: lidocaine 2% INJ 20 mL INJECTION (11:13)
--- NOTE | 2020-11-23 11:18 | PM.OP ---
Operative Report Date of procedure: November 23, 2020 Pre-op Diagnosis: Requiring hemodialysis catheter/end-stage renal disease Post-op diagnosis: same Post-op Findings: Normal anatomy of right internal jugular vein Procedure Done: Placement of tunneled temporary dialysis catheter 16 [place] Islander and 31 cm length via the right internal jugular vein Ultrasound and fluoroscopic interpretation was done by me through the whole entire procedure Implants: Placement of tunneled temporary dialysis catheter 16 [place] Islander and 31 cm length via the right internal jugular vein Surgeon: Denys Medina Production Supervisor Trainee: processing technologist Michelle Circulating nurse Nia Anesthesia: General (Norma Potts) Estimated blood loss (mL): 10 Condition: stable Disposition: same day Brief History: Plan of care; After thorough history physical examination and reviewing the chart, I counseled the patient for tunneled hemodialysis catheter, indications, risks including pneumothorax and injury of major vascular structures, benefits,indications and alternatives were all discussed with the patient, patient understands and is interested to proceed. Rationale was carefully and clearly discussed with the patient.Appropriate informed consent have been reviewed and signed. Procedure: Right IJ Placement Patient was identified in the holding area and taken to the operative room and placed in supine position ,both arms were tucked,Time-out was done verifying the patient's name/date of /planned procedure and destination after the procedure, all were in agreement.SCDs confirmed to be functioning, intubated by anesthesia ,patient was given prophylactic antibiotics administered per protocol, and beta gabbie protocol was confirmed, appropriate positioning of the patient was done by me. Medications were reviewed to assess for anticoagulant usage. Risks and benefits and prevention of central line associated blood stream infection (CLABSI) were discussed with the patient/CPOA, and a consent was obtained. Monitors were in place and monitored throughout the procedure. All necessary supplies were available prior to start. Hand hygiene was completed prior to starting. Maximum barrier technique was utilized including a sterile gown, sterile gloves with a hat and mask. Site was was prepped with [chlorhexidine] and a full body drape was placed. 5 mL of 2% lidocaine was injected into the skin with a 25 gauge needle. Prep& drape was done under the usual sterile technique of upper chest right and left as well as the neck both sides, lidocaine 2% was injected at the site of the stick, started by Right Internal jugular vein stick that retrieved Venous blood was obtained from the first stickUnder ultrasound guidance where no evidence of intraluminal thromboses was detected. A guidewire was then threaded without any difficulty and under the guidance of fluoroscopy position was confirmed to be in the IVC, there was no PVC changes, at that point the guidewire was secured to the drapes with a hemostat and the needle was taken out, attention was then deviated towards creation of an insert for the HD catheter at the right upper chest, were lidocaine 2% was injected using an 15 blade knife skin incision was created dissection using a hemostat to create an entrance and for the HD catheter to be inserted were it was connected to a tunneler, and the tunneler was used to accommodate the catheter of the HD catheter to be delivered through the incision first created at the site of the stick ,which is at the right side of the neck, a small romelia was created with 11 blade knife to allow delivery of the catheter outside the wound ,at that point under fluoroscopy,serial dilators were done that come in the in the KIT, followed by that a dilator with the sheath introduced onto the guidewire ,the dilator and the wire were retrieved and the catheter of the port was introduced via the sheath where it was peeled off and the catheter maintained, to be in good position in the right atrium And the cuff of the catheter maintained to be in the subcutaneous layer. Both ports were flushed with heparin and appropriate And good blood Flow was retrieved.Hep-Lock's were then applied The whole procedure was done under fluoroscopy,the position maintained to be in the rt atrium that was confirmed with fluoroscopy, and the fluoroscopy interpretation was done by me throughout the entire procedure..Confirmation also was done with Dr. Washington radiologist over the phone The stick site was closed by 3-0 Vicryl deep subdermal interrupted sutures, followed by 4-0 Monocryl and Dermabond was used followed by dry dressing was applied. A 3/0 nylon was used to secure the hemodialysis catheter onto the anterior chest wall Patient tolerated the procedure well was taken to the recovery area Count was correct at the end of the procedure I was present for the whole entire procedure Position of the catheter was checked with a postoperative chest x-ray and it was in good position without evidence of pneumothorax.
[2020-11-23] MEDS: neomycin-poly-bacitracin oint 28 gm 1 APPLIC TOPICAL (11:20)
--- NOTE | 2020-11-23 11:21 | XRR_ITS ---
PROCEDURE INFORMATION: Exam: XR Chest, 1 View Exam date and time: 11/23/2020 11:22 AM Age: 60 years old Clinical indication: Device placement; Other: Status post placement of right internal jugular vein TECHNIQUE: Imaging protocol: XR of the chest Views: 1 view. COMPARISON: CT chest abd pel wo con 05/13/2020 8:11 AM FINDINGS: Tubes, catheters and devices: There is a tunneled right jugular dialysis catheter with the distal tip in the superior right atrium. Lungs: Decreased lung volumes. Bibasilar airspace disease likely due to atelectasis. Pleural space: No pleural effusion or pneumothorax. Heart/Mediastinum: The cardiac silhouette is not enlarged. Bones/joints: No acute osseous abnormality. XR/XR chest 1V portable [id number] IMPRESSION: 1. Right jugular dialysis catheter with the tip in the upper right atrium. 2. No pneumothorax. 3. Bibasilar atelectasis.
[2020-11-23] MEDS: ondansetron 2 mg/ML SDV 2 mL 4 MG IVP ×2 (11:40→11:45)
[2020-11-23] MEDS: metoclopramide 5 mg/mL SDV 2 mL 10 MG IVP (11:50)
--- NOTE | 2020-11-23 14:08 | ANE.PACU2 ---
Inpatient post-anesthesia follow up: Airway intact: Yes Vital signs: Temperature 97.6 F Pulse Rate 73 Respiratory Rate 16 Blood Pressure 133/68 Pulse Oximetry 91 Oxygen Delivery Me thod Room Air Oxygen Flow Rate 8 Fraction of Inspir ed Oxygen Hydration adequate: Yes Nausea and vomiting: No Pain level: 1 Mental status: Baseline
== END 2020-11-23 12:55 | disposition home or self-care (01) ==
PROVIDERS: PCP Family Medicine; Visit Provider Surgery
PROC: (CPT 36561; 2020-11-23 08:20)
DX: E66.01 Morbid (severe) obesity due to excess calories (principal); Z68.41 Body mass index [BMI] 40.0-44.9, adult; I13.2 Hypertensive heart and chronic kidney disease with heart failure and with stage 5 chronic kidney disease, or end stage renal disease; E11.22 Type 2 diabetes mellitus with diabetic chronic kidney disease; N18.6 End stage renal disease; I50.9 Heart failure, unspecified; Z86.14 Personal history of Methicillin resistant Staphylococcus aureus infection; E78.5 Hyperlipidemia, unspecified; E03.9 Hypothyroidism, unspecified; Z82.49 Family history of ischemic heart disease and other diseases of the circulatory system; Z83.3 Family history of diabetes mellitus
CPT/HCPCS: 36561; 12345; 36416; 71045; 77001; 82962; C1750; J0690; J1644; J2370; J2405; J2765; J3010; J3490; J7030

== ENCOUNTER 2020-11-26 13:03 | Outpatient (CLI) | payer MEDICARE, MEDICAID, SELFPAY | END 2020-11-26 13:04 | disposition home or self-care (01) | LOC: WOUND 13:05 | PROVIDERS: PCP Family Medicine; Visit Provider Thoracic Surgery (Cardiothoracic Vascular Surgery) | DX: L89.619 Pressure ulcer of right heel, unspecified stage (principal); L89.629 Pressure ulcer of left heel, unspecified stage | CPT/HCPCS: 11043; 11046; 87070; 87077; 87176; 87186; 87205 ==

== ENCOUNTER 2020-12-03 12:58 | Outpatient (CLI) | payer MEDICARE, MEDICAID, SELFPAY | END 2020-12-03 12:59 | disposition home or self-care (01) | LOC: WOUND 12:59 | PROVIDERS: PCP Family Medicine; Visit Provider Thoracic Surgery (Cardiothoracic Vascular Surgery) | DX: I96 Gangrene, not elsewhere classified (principal); L89.613 Pressure ulcer of right heel, stage 3; L89.623 Pressure ulcer of left heel, stage 3 | CPT/HCPCS: 11042; 11045 ==

== ENCOUNTER 2020-12-10 13:06 | Outpatient (CLI) | payer MEDICARE, MEDICAID, SELFPAY | END 2020-12-10 13:07 | disposition home or self-care (01) | LOC: WOUND 13:09 | PROVIDERS: PCP Family Medicine; Visit Provider Thoracic Surgery (Cardiothoracic Vascular Surgery) | DX: I96 Gangrene, not elsewhere classified (principal); L89.613 Pressure ulcer of right heel, stage 3; L89.623 Pressure ulcer of left heel, stage 3 | CPT/HCPCS: 11042; 11045 ==

== ENCOUNTER 2020-12-17 13:13 | Outpatient (CLI) | payer MEDICARE, MEDICAID, SELFPAY | END 2020-12-17 13:14 | disposition home or self-care (01) | LOC: WOUND 13:14 | PROVIDERS: PCP Family Medicine; Visit Provider Nurse Practitioner Family | DX: L89.613 Pressure ulcer of right heel, stage 3 (principal); L89.623 Pressure ulcer of left heel, stage 3; E11.622 Type 2 diabetes mellitus with other skin ulcer; L97.322 Non-pressure chronic ulcer of left ankle with fat layer exposed | CPT/HCPCS: 11042; 11045 ==

== ENCOUNTER 2020-12-24 09:42 | Outpatient (CLI) | payer MEDICARE, MEDICAID, SELFPAY ==
--- NOTE | 2020-12-24 11:36 | XR_ITS ---
WS: [id number] Bilateral feet, 3 views each, 12/24/2020 Clinical Data: BL foot pain Comparison: None. Findings: Right foot: There is erosion of all of the tarsal bones with loss of normal relationships between the tarsal bone s and loss of normal relationship between the tarsal bones and the ankle. There is diffuse osteoporos is of the tarsal bones, metatarsals and phalanges. Soft tissue swelling around the foot and ankle is noted. There are calcifications in the guardado of the small vessels of the right foot. No distinct fra ctures are seen. Left foot: There is erosion of all of the tarsal bones. There is complete dislocation of the ankle from the left tibia and fibula. The normal relationships of the tarsal bones show disruption and erosions. There i s soft tissue swelling about the left foot and ankle. There are calcifications in the guardado of small vessels. No definite fractures are seen. XR/[place] [id number] ORTH Impression: Bilateral tarsal bone erosions and disruptions consistent with bilateral Leroy t foot and joint.
--- NOTE | 2020-12-24 11:41 | XR_ITS ---
WS: [id number] Left ankle, 3 views, 12/24/2020 Clinical Data: pain Comparison: None. Findings: There is complete disruption with dislocation of the tarsal bones laterally. There are erosions of al l the tarsal bones with distortion of there are normal relationships. Bony fragments surround the lef t ankle. There is soft tissue swelling about the ankle. There are calcifications in the guardado of the small vessels. XR/XR ankle LT min 3V* [id number] Impression: Total disruption of the ankle joint with the tarsal bone erosion consistent wit h Charcot joint.
== END 2020-12-24 09:43 | disposition home or self-care (01) ==
LOC: WOUND 09:43
PROVIDERS: PCP Family Medicine; Visit Provider Nurse Practitioner Family
DX: I96 Gangrene, not elsewhere classified (principal); L89.613 Pressure ulcer of right heel, stage 3; L89.623 Pressure ulcer of left heel, stage 3; E11.622 Type 2 diabetes mellitus with other skin ulcer; L97.322 Non-pressure chronic ulcer of left ankle with fat layer exposed; M79.672 Pain in left foot; M79.671 Pain in right foot
CPT/HCPCS: 73610; 73630; 99214

== ENCOUNTER 2020-12-25 10:56 | Inpatient (IN) | payer MEDICARE, MEDICAID, SELFPAY ==
[2020-12-25] VITALS (10 sets, daily range): BP systolic 133–164; BP diastolic 71–99; PULSE 78–89; RESP 16–23; TEMP 36.1–36.8; O2SAT 96–100; BMI 41.6
[2020-12-25 12:45] LABS: Basophils # 0.1 10^3/uL (0.0-0.1); Basophils % 0.5 %; Eosinophils # 0.4 10^3/uL (0.0-0.8); Eosinophils % 4.3 %; Hematocrit 24.9 % (37.0-47.0); Hemoglobin 7.8 g/dL (11.5-15.3); Lymphocytes % 10.5 %; Mean Corpuscular HGB Conc 31.3 g/dL (30.0-36.0); Mean Corpuscular Hemoglobin 31.5 pg (28.0-34.0); Mean Corpuscular Volume 100.4 fL (81-99); Mean Platelet Volume 9.4 fL (7.4-10.4); Monocytes # 0.9 10^3/uL (0.2-0.9); Monocytes % 9.4 %; Neutrophils # 7.04 10^3/uL (1.8-7.7); Neutrophils % 74.8 %; Nucleated Red Blood Cells % 0 %; Platelet Count 183 10^3/cmm (130-400); Red Blood Count 2.48 10^6/uL (4.1-5.3); Red Cell Distribution Width 16.5 % (12.1-15.1); White Blood Count 9.4 10^3/uL (4.0-10.0)
[2020-12-25 13:03] LABS: Alanine Aminotransferase 7 U/L (0-33); Albumin Level 2.4 g/dL (3.5-5.2); Alkaline Phosphatase 120 IU/L (35-105); Aspartate Amino Transferase 11 U/L (0-32); Blood Urea Nitrogen 14 mg/dL (6-20); Calcium 7.8 mg/dL (8.5-10.5); Carbon Dioxide 27 mmol/L (22-29); Chloride 97 mmol/L (98-107); Globulin 4.8 g/dL (1.3-4.6); Glomerular Filtration Rate 10.9 mL/min (90-130); Glucose 161 mg/dL (65-115); Osmolality Calculated 280 mOsm/kg (285-295); Sodium 133 mmol/L (136-145); Total Bilirubin 0.3 mg/dL (0.15-1.2); Total Protein 7.2 g/dL (6.6-8.7)
[2020-12-25 13:04] LABS: Lactate (Lactic Acid level) 1.1 mmol/L (0.5-2.2)
--- NOTE | 2020-12-25 13:34 | ED_ITS ---
HPI - Wound/Laceration General: Chief Complaint: Wound/Laceration Stated Complaint: L FOOT/LEG PAIN, SENT OVER BY DR. KELLY, Time Seen by Provider: 12/25/20 11:28 Source: patient and old records reviewed History of Present Illness: HPI narrative: Patient presents emergency department with complaint of left foot infection. She has been on antibiotics for the past 2 weeks with no improvement. She has a history of Charcot foot. She saw Dr. Kelly, podiatry who recommended that she follow-up in the ER to be admitted for probable BKA. Associated symptoms: Denies fever(s), nausea or vomiting Review of Systems General: Reports: 10 or more systems reviewed and unremarkable except in HPI and below Const: Denies: fever(s) Eyes: Denies: change in vision ENMT: Denies: throat pain Card: Denies: chest pain Resp: Denies: dyspnea GI: Denies: abdominal pain, nausea or vomiting : Denies: flank pain Musc: Reports: deformity (Deformity, redness, and drainage from left ankle.); Denies: neck pain Skin/Breast: Reports: other (Patient with redness and drainage from the left foot) [facility] ED PFSH: Medical History (Updated 12/25/20 @ 13:43 by Rocky Parra MD) Atypical chest pain Congestive heart failure Diabetes Diabetes mellitus type 2, insulin-dependent ESRD (end stage renal disease) History of colon polyps History of congestive heart failure History of MRSA infection Hyperlipidemia Hypertension Hypothyroidism MSSA (methicillin susceptible Staphylococcus aureus) Recent transesophageal echo rule out infective endocarditis, MRI of spine rule out epidural abscess, Status post IV cefazolin course finished on 06/02 Surgical History Central vascular catheter in place upon arrival History of cholecystectomy History of lumbar surgery Due to epidural abscess in March 2018 Peritoneal dialysis catheter in place Family History Mother Cancer Uterine and breast cancer Father Diabetes Other CAD (coronary artery disease) Social History Smoking and tobacco status: never smoked Alcohol intake: current Alcohol intake frequency: holidays/special occasions only Female Reproductive History: Date of last menstrual period: 05/28/14 Physical Exam Const: COMMON NORMALS: no acute distress HENMT: COMMON NORMALS: normocephalic, atraumatic, hearing grossly normal bilaterally, external ears normal, EAC's normal, TM's normal bilaterally, Normal external nose present, Normal nasal mucous membranes and turbinates present, moist oral mucous membranes, oropharynx normal, dentition normal and gingiva normal HEAD & SCALP: normocephalic and atraumatic NOSE: Normal external nose present and Normal nasal mucous membranes and turbinates present EXTERNAL EAR: Yes external ears normal EXTERNAL AUDITORY CANAL: EAC's normal TYMPANIC MEMBRANE: TM's normal bilaterally Neck/C-Spine: COMMON NORMALS: no JVD Lymph: LYMPHATIC: lymphedema Resp: COMMON NORMALS: normal respiratory effort Cardio: COMMON NORMALS: no JVD, regular rate, regular rhythm, S1 normal heart sound present, S2 normal heart sound present, No gallops present (Cardio), No clicks present (Cardio), No murmurs present (Cardio), No rub (Cardio) and Peripheral pulses 2+ throughout RATE: regular rate RHYTHM: regular rhythm HEART SOUNDS: S1 normal heart sound present and S2 normal heart sound present PERIPHERAL PULSES: Peripheral pulses 2+ throughout Extremity: NARRATIVE EXTREMITY EXAM: Bilateral lower extremities with lymphedema. Both ankles have deformity, left worse than right. There is a chronic ulceration of the right heel. There is an infected ulceration of the left heel with an open draining hole in the skin. Course Vital Signs: Vital signs: Vital Signs Temperature 97.0 F L 12/25/20 11:04 Pulse Rate 78 12/25/20 11:04 Respiratory Rate 16 12/25/20 11:04 Blood Pressure 146/76 12/25/20 11:04 Pulse Oximetry 100 12/25/20 11:04 MDM - Wound/Laceration MDM Narrative: Medical decision making narrative: Patient to be admitted to the hospitalist with orthopedic consultation for possible BKA. Will need furt her evaluation and treatment. Will start on IV antibiotics. Failed outpatient treatment with oral antibiotics. Lab Data: Labs: Lab Results 12/25/20 12/25/20 12/25/20 Range/Units 12:20 12:20 12:20 WBC 9.4 (4.0-10.0) 10^3/ uL RBC 2.48 L (4.1-5.3) 10^6/u L Hgb 7.8 L (11.5-15.3) g/dL Hct 24.9 L (37.0-47.0) % MCV 100.4 H (81-99) fL MCH 31.5 (28.0-34.0) pg MCHC 31.3 (30.0-36.0) g/dL RDW 16.5 H (12.1-15.1) % Plt Count 183 (130-400) 10^3/c mm MPV 9.4 (7.4-10.4) fL Neut % (Auto) 74.8 % Lymph % (Auto) 10.5 % [place] % (Auto) 9.4 % Eos % (Auto) 4.3 % Baso % (Auto) 0.5 % Neut # (Auto) 7.04 (1.8-7.7) 10^3/u L Lymph # (Auto) 1.0 (0.8-4.8) 10^3/u L [place] # (Auto) 0.9 (0.2-0.9) 10^3/u L Eos # (Auto) 0.4 (0.0-0.8) 10^3/u L Baso # (Auto) 0.1 (0.0-0.1) 10^3/u L Nucleated RBC % (a uto) 0 % Nucleated RBCs # 0.0 /100WBC Sodium 133 L (136-145) mmol/L Potassium 4.0 (3.5-5.1) mmol/L Chloride 97 L (98-107) mmol/L Carbon Dioxide 27 (22-29) mmol/L Anion Gap 13.0 (5-19) BUN 14 (6-20) mg/dL Creatinine 4.2 H (0.5-0.9) mg/dL GFR Calculation 10.9 L (90-130) mL/min Glucose 161 H (65-115) mg/dL Calculated Osmolal ity 280 L (285-295) mOsm/k g Lactate 1.1 (0.5-2.2) mmol/L Calcium 7.8 L (8.5-10.5) mg/dL Total Bilirubin 0.3 (0.15-1.2) mg/dL AST 11 (0-32) U/L ALT 7 (0-33) U/L Alkaline Phosphata se 120 H (35-105) IU/L Total Protein 7.2 (6.6-8.7) g/dL Albumin 2.4 L (3.5-5.2) g/dL Globulin 4.8 H (1.3-4.6) g/dL Discharge Plan Discharge Patient Disposition: Admitted As Inpatient Clinical Impression: Charcot's joint of foot in type 2 diabetes mellitus, Cellulitis and abscess of lower extremity, ESRD (end stage renal disease) Condition: Stable Prescriptions: No Action Novolin 70/30 U-100 Insulin 100 unit/mL (70-30) suspension See Rx Instructions .ROUTE .COMPLEX Qty: 10 RF: 3 (DME) insulin syringe-needle U-100 [BD Insulin Syringe Ultra-Fine] 1 mL 30 gauge x 1/2 syringe See Rx Instructions .ROUTE .MEDSUPPLY Qty: 100 RF: 6 linezolid 600 mg tablet 600 mg PO BID@0600,1800 RF: 0 promethazine 25 mg tablet 25 mg PO Q6H PRN (Reason: NAUSEA/VOMITING) RF: 0 Synthroid 150 mcg tablet 150 mcg PO DAILY@0600 RF: 0 carvedilol 25 mg tablet 25 mg PO DAILY@0600 RF: 0 Referrals: Karen Bear MD [Primary Care Provider] - Coding Level of Care Code ED Grounds Caretaker for Gregorio Thompson
--- NOTE | 2020-12-25 13:55 | USCV_ITS ---
Alesia Shaw Age: 60 Gender: F : 1960 Exam Date: 12/25/2020 13:57 Ordering Phys: Angel Baez MD Technologist: Exam Location: [facility] [place]_ Indication: PVD RIGHT LEFT Brachial 165.00 mmHg Brachial 152.00 mmHg Pressure (mmHg) Waveform Pressure (mmHg) Waveform PROCESS PROJECT ENGINEER 180.00 85.00 Pre-Exercise Toe Pressure 44.00 0.52 Pre-Exercise Toe/Brachial Index 0.24 FINDINGS LT DPA >220 Supernormal resting ABIs bilaterally. TBI of 0.52 on the right side and 0.24 on the left side CONCLUSIONS 1. Murmur noncompressible arteries bilaterally 2. Abnormal TBI's bilaterally, suggestive of mild peripheral artery disease on the right and moderately severe disease on the left side, possibly involving the distal vessels No similar previous studies are available for comparison Dr Elizabeth Gaines MD [facility] (Electronically Signed) Final Date: 26 December 2020 18:07 S
--- NOTE | 2020-12-25 13:57 | PM.HP ---
Providers/Chief Complaint Primary Care Provider: Karen Bear MD Chief Complaint: L FOOT/LEG PAIN, SENT OVER BY DR. KELLY, History of Present Illness Alesia Shaw is a 60 year old female with past medical history of CKD stage IV on hemodialysis Monday, type 2 diabetes mellitus, hypothyroidism, lymphedema, history of MRSA infection, history of aortic valve endocarditis, history of diastolic heart failure, bilateral Charcot's foot who presents to the ER today at recommendation of Dr. Kelly for BKA. Patient states she has been having recurrent infection because of her lymphedema and Charcot's foot and her feet for over many years. She states she has been on antibiotics for last 4 weeks because of recurrent infections. She states right now she has 2 open wounds on her legs with the most recent one which is opened on the inner side of her left foot which opened around 2 weeks ago and since then has been bleeding a lot for which she has required up to 2 bandages per day which is usually done by her . She complains of bloody serosanguineous to purulent discharge on and off. Because of recurrent infections she was sent over to Dr. Kelly for possible surgery for Charcot's foot. Dr. Kelly advised her to get BKA hence she is in the ER. She denies any nausea, vomiting, headache, dysuria, no exposure to COVID-19, fever. She denies of having any diarrhea though complains of occasional constipation. Blood work in the ER showed a hemoglobin of 7.8, white count of 9.4, platelet count of 183, sodium of 133, chloride of 97, creatinine of 4.2, BUN of 14, calcium 7.8, alkaline phosphatase of 120, AST/ALT of 11/7 Review of Systems General: Reports: 10 or more systems reviewed and unremarkable except in HPI and below Const: Denies: fever(s), chills, body aches, change in appetite, change in weight, malaise, night sweats, diaphoresis, change in sleep pattern, daytime sleepiness or snoring Eyes: Denies: change in vision, blurry vision, photophobia, eye discomfort or eye discharge ENMT: Denies: throat pain, enlarged tonsils, hoarseness, mouth pain, oral sores, dry mouth, tinnitus, nasal congestion or post nasal drip Card: Denies: chest pain, palpitations, irregular heart rhythm, edema, swelling of feet/ankles, lightheadedness, syncope, pre-syncope, dyspnea on exertion, orthopnea, leg pain with exertion or acrocyanosis Resp: Denies: dyspnea, productive cough, non-productive cough, wheezing, stridor, pain on inspiration, change in phlegm color, hemoptysis or chest congestion GI: Denies: abdominal pain, nausea, vomiting, hematemesis, coffee ground emesis, dysphagia, heartburn, diarrhea, constipation, bloating, GI cramping, change in bowel habits, pain on defecation, hematochezia or melena : Denies: flank pain, dysuria, urinary frequency, urinary urgency, urinary hesitancy, nocturia or hematuria Musc: Denies: neck pain, back pain, extremity pain, joint pain, joint swelling, joint redness, joint stiffness or limited range of motion Neuro: Denies: headache(s), numbness in extremities, weakness in extremities, sensory changes, lack of coordination, difficulty walking, frequent falls, dizziness, vertigo, confusion, Slurred speech present, difficulty communicating thoughts or seizure-like activity Psych: Denies: anxiety, depression, mood swings, panic attacks, hopelessness or irritability Endo: Denies: polyuria, polydipsia, tired all the time, cold intolerance, excessive sweating, flushing or heat intolerance Jimmy/Lymph: Denies: easy bruising or easy bleeding All/Imm: Denies: tongue swelling, facial swelling or acute wheezing Medications/Allergies Home Medications Medication Instructions Recorded Confirmed Last Taken Type carvedilol 25 mg PO DAILY@0600 06/27/20 12/25/20 12/25/20 History insulin human U-100 NPH-regulr See Rx Instructions .ROUTE 07/23/20 12/25/20 11/22/20 Rx 70-30 mix 100 unit/mL subcutaneous .COMPLEX #10 ml susp insulin syringe-needle U-100 1 mL #100 ea 10/09/20 12/25/20 Unknown Rx 30 gauge x 1/2 Synthroid 150 mcg PO DAILY@0600 12/25/20 12/25/20 12/25/20 History linezolid 600 mg PO BID@0600,1800 12/25/20 12/25/20 12/25/20 History promethazine 25 mg PO Q6H PRN 12/25/20 12/25/20 Unknown History Allergies Allergy/AdvReac Type Severity Reaction Status Date / Time Iodinated Contrast Media Allergy ALGY-Hives Verified 12/25/20 11:08 PFSH Acute PFSH: Medical History (Updated 12/25/20 @ 13:59 by Angel Baez MD) Acute bronchitis Anemia Aortic valve endocarditis Atypical chest pain Bacteremia due to Staphylococcus EKG done this morning revealed normal sinus rhythm with a left axis deviation. Voltage area for LVH. No significant ST-T changes. Congestive heart failure Diabetes Diabetes mellitus type 2, insulin-dependent Dyspnea on exertion Elevated troponin I level ESRD (end stage renal disease) History of colon polyps History of congestive heart failure History of MRSA infection Hyperlipidemia Hypertension Hypothyroidism Infectious endocarditis MSSA (methicillin susceptible Staphylococcus aureus) Recent transesophageal echo rule out infective endocarditis, MRI of spine rule out epidural abscess, Status post IV cefazolin course finished on 06/02 Protein-energy malnutrition SOB (shortness of breath) Surgical History Central vascular catheter in place upon arrival History of cholecystectomy History of lumbar surgery Due to epidural abscess in March 2018 Peritoneal dialysis catheter in place Family History Mother Cancer Uterine and breast cancer Father Diabetes Other CAD (coronary artery disease) Social History Smoking and tobacco status: never smoked Alcohol intake: current Alcohol intake frequency: holidays/special occasions only Female Reproductive History: Date of last menstrual period: 05/28/14 Vitals/I&O/Wt Last Vital Signs Temp 97.0 F L 12/25/20 11:04 Pulse 87 12/25/20 13:34 Resp 21 H 12/25/20 13:34 BP 164/99 12/25/20 13:34 Pulse Ox 99 12/25/20 13:34 Weight last 48 hrs Weight 117.027 kg Physical Exam Narrative: EXAM NARRATIVE: General: No acute distress, AO x3 morbid obesity HEENT: PERRLA, pupils bilaterally equal and reactive Chest: Normal vesicular breath sounds, no added sounds, equal good air entry bilaterally CVS: S1-S2 regular, no murmurs, no tachycardia, no gallops, no rubs Abdomen: Soft, nontender, no organomegaly, bowel sounds present Neuro: No focal deficits, no facial deformity, AO x3, power 5/5 in all limbs Extremities: Bilateral dorsalis pedis and posterior tibialis artery nonpalpable secondary to edema, capillary refill less than 3 seconds. Wound at the left medial malleolus probes to bone with serous sanguinous drainage and localized erythema no proximal lymphangitic streaking. Indurated skin at lower extremities. Wound at the left plantar heel with eschar No underlying fluctuance or purulent drainage. Wound at the right plantar heel also with eschar, no underlying fluctuance. Data : 12/25/20 12:20 12/25/20 12:20 Micro: Microbiology 12/25/20 12:20 Blood Culture - Preliminary Blood SPECIMEN COLLECTED 12/25/20 12:20 Blood Culture - Preliminary Blood SPECIMEN COLLECTED A&P Assessment and plan (1) Cellulitis and abscess of lower extremity: Status: Acute (2) Diabetic ulcer of foot associated with diabetes mellitus due to underlying condition, limited to breakdown of skin: Status: Acute (3) Charcot's joint of foot in type 2 diabetes mellitus: Status: Acute (4) Anemia: Status: Acute Qualifiers: Anemia type: unspecified type Qualified Code(s): D64.9 - Anemia, unspecified (5) ESRD (end stage renal disease): Status: Acute (6) History of congestive heart failure: Status: Acute (7) Diabetes: Status: Acute Qualifiers: Diabetes mellitus terminal press operator insulin use: with terminal press operator use Diabetes mellitus type: type 2 (8) History of MRSA infection: Status: Acute (9) Lymphedema of both lower extremities: Status: Acute Additional A&P Information Bilateral Charcot's foot interval diabetes mellitus with cellulitis and abscess of lower extremities: Suggested BKA by Dr. Kelly. Check blood culture, urine culture, MRSA swab, procalcitonin. Start patient on vancomycin and Zosyn as per renal functions. Patient has previous history of Enterococcus faecalis and MRSA growing from her wound in the past. For now cover for both. Most likely patient would not require antibiotics post BKA until his blood cultures come back positive. Dr. Tobar has been consulted from the ER. Check bilateral NHAN to rule out peripheral vascular disease because of morbid obesity and anemia and type 2 diabetes mellitus: End-stage renal disease on hemodialysis: We will consult nephrology for inpatient hemodialysis. No metabolic acidosis letter abnormality at present. Anemia: Most likely anemia of chronic disease not responding to erythropoietin and requiring multiple transfusions. Patient has followed up with Dr. Geol in the past for the same. Cannot rule out multiple myeloma versus myelodysplastic syndrome. Patient is awaiting bone marrow biopsy. Check iron panel. Hemoglobin stable for now. Type 2 diabetes mellitus: Insulin sliding scale at moderate dose. Carb consistent diet. History of congestive heart failure: Last echocardiogram done in 2019 shows an EF of 55% with no R WMA and mild TR. No exacerbation at present. Monitor strict input output. Daily weights. Continue other chronic medications including Synthroid. Check iron panel, ferritin, reticulocyte count, vitamin B12, folate level, TSH. Full code. Renal dialysis carb consistent diet. DVT prophylaxis: We will hold off on starting pharmacological DVT prophylaxis because of possible procedure tomorrow along with chronic anemia. Cannot do SCDs or foot pumps because of extensive lymphedema and open wounds. Famotidine for PUD prophylaxis. Attestations Medical Necessity Statement*: Anticipate admission for more than 2 midnights for treatment of cellulitis and Charcot's foot with type 2 diabetes mellitus most likely requiring bilateral BKA's. Time Spent in Patient Care: Greater than 35 minutes (>than 50% of time spent in counselling and/or direct pt care on unit). Coding Level of Care Code Acute Community Development Officer for [facility] Diagnoses Cellulitis and abscess of lower extremity L03.119; L02.419 Diabetic ulcer of foot associated with diabetes mellitus due to underlying condition, limited to breakdown of skin E08.621; L97.501 Charcot's joint of foot in type 2 diabetes mellitus E11.610 Anemia D64.9 Anemia type: unspecified type ESRD (end stage renal disease) N18.6 History of congestive heart failure Z86.79 Diabetes E11.9 Diabetes mellitus fdc insulin use: with fdc use Diabetes mellitus type: type 2 History of MRSA infection Z86.14 Lymphedema of both lower extremities I89.0
[2020-12-25] MEDS: vancomycin 1,500 MG/300 ML PIGGYBACK 200 MG IV (14:37)
[2020-12-25] MEDS: piperacillin-tazobactam 3.375 GM in sodium chloride 0.9% (plus) 50 ML IV (14:37)
[2020-12-25 14:44] LABS: Procalcitonin 0.73 ng/mL (0-0.5); Thyroid Stimulating Hormone 3.12 uIU/mL (0.27-4.20)
--- NOTE | 2020-12-25 16:03 | PC.NURSE ---
PT STATES THAT SHE GETS VERY SICK WITH ANAESTHESIA, NAUSEA AND VOMITTING, MAKES PT FEEL LIKE SHE CAN NOT BREATHE.
--- NOTE | 2020-12-25 16:08 | P.CONIM_ITS ---
Providers/Reason For Consult Consulting Physican/Specialty*: Tomasa Hernandez DO, telenephrology Reason for Consult*: ESRD Attending Physician: Angel Baez MD Primary Care Provider: Karen Bear MD History of Present Illness History of Present Illness Alesia Shaw is a 60 year old female presenting for treatment of bilateral lower extremity infections related to DM, lymphedema, Charcot joint. She states leg has been weeping and bleeding x > 1 week. Has been on antibiotics. Plan is for BKA tomorrow. ESRD x 3 years, on peritoneal dialysis unil 3 weeks ago. Developed peritonitis, now on HD via right IJ dialysis catheter. Has urine output. PD catheter remains in placed. Needs to be flushed. Review of Systems General: Reports: Other (see HPI) Meds/Allergies Home Medications and Allergies Home Medications Medication Instructions Recorded Confirmed Last Taken Type carvedilol 25 mg PO DAILY@0600 06/27/20 12/25/20 12/25/20 History insulin human U-100 NPH-regulr See Rx Instructions .ROUTE 07/23/20 12/25/20 11/22/20 Rx 70-30 mix 100 unit/mL subcutaneous .COMPLEX #10 ml susp insulin syringe-needle U-100 1 mL #100 ea 10/09/20 12/25/20 Unknown Rx 30 gauge x 1/2 Synthroid 150 mcg PO DAILY@0600 12/25/20 12/25/20 12/25/20 History linezolid 600 mg PO BID@0600,1800 12/25/20 12/25/20 12/25/20 History promethazine 25 mg PO Q6H PRN 12/25/20 12/25/20 Unknown History Allergies Allergy/AdvReac Type Severity Reaction Status Date / Time Iodinated Contrast Media Allergy ALGY-Hives Verified 12/25/20 11:08 Current Medications Current Medications Generic Name Dose Route Start Last Admin Trade Name Freq PRN Reason Stop Dose Admin Piperacillin Sod/Tazobactam 50 mls @ 12.5 mls/hr 12/25/20 15:00 12/25/20 14:37 Sod 3.375 gm/ Sodium Chloride IV 12.5 mls/hr Q12H SHELBY Administration Protocol Vancomycin/PEG/NADA/Lysine/Water 1,500 mg in 300 mls @ 200 mls/hr 12/25/20 15:00 12/25/20 14:37 Vancocin IV 200 mls/hr Q48H SHELBY Administration PFSH Acute PFSH: Medical History Acute bronchitis Anemia Aortic valve endocarditis Atypical chest pain Bacteremia due to Staphylococcus EKG done this morning revealed normal sinus rhythm with a left axis deviation. Voltage area for LVH. No significant ST-T changes. Congestive heart failure Diabetes Diabetes mellitus type 2, insulin-dependent Dyspnea on exertion Elevated troponin I level ESRD (end stage renal disease) History of colon polyps History of congestive heart failure History of MRSA infection Hyperlipidemia Hypertension Hypothyroidism Infectious endocarditis MSSA (methicillin susceptible Staphylococcus aureus) Recent transesophageal echo rule out infective endocarditis, MRI of spine rule out epidural abscess, Status post IV cefazolin course finished on 06/02 Protein-energy malnutrition SOB (shortness of breath) Surgical History Central vascular catheter in place upon arrival History of cholecystectomy History of lumbar surgery Due to epidural abscess in March 2018 Peritoneal dialysis catheter in place Family History Mother Cancer Uterine and breast cancer Father Diabetes Other CAD (coronary artery disease) Social History Smoking and tobacco status: never smoked Alcohol intake: current Alcohol intake frequency: holidays/special occasions only Female Reproductive History: Date of last menstrual period: 05/28/14 Vitals/I&O/Wt Last Vital Signs Temp 98.2 F 12/25/20 15:00 Pulse 82 12/25/20 15:00 Resp 17 12/25/20 15:00 BP 163/77 12/25/20 15:00 Pulse Ox 98 12/25/20 15:00 Weight last 48 hrs Weight 117.027 kg Physical Exam Const: COMMON NORMALS: no acute distress GENERAL APPEARANCE: cooperative Extremity: GENERAL: Yes edema Data Labs: Other Labs: albumin 2.4, tamia Ca 9, LFTs normal Micro: Micro: Microbiology 12/25/20 12:20 Blood Culture - Pr eliminary Blood SPECIMEN [facility] BRYANNA 12/25/20 12:20 Blood Culture - Pr eliminary Blood SPECIMEN [facility] A&P Additional A&P Information 1. ESRD currently on hemodialysis MWF 2. Diabetic foot infections 3. Anemia 4. Mild hyponatremia 5. Hypoalbuminemia Plan: HD today, 3.5 hours, 3K, 2 liters UF as BP tolerates. Check iron studies, epogen at dialysis. Will arrange to flush PD catheter over weekend. Add Protein supplements. Consult Attestations Medical Necessity Statement: see above Time Spent in Patient Care: Greater than 35 minutes Coding Level of Care Code Acute Train Gateman for Greg[facility] Thompson
[2020-12-25 17:25] LABS: Hepatitis B Surface AB 67.3 (0-8.5); Hepatitis B Surface Antigen Non-Reactive (Nonreactive); Hepatitis C Virus Antibody Non-Reactive (Nonreactive)
[2020-12-25 17:45] LABS: Glucose Point of Care 117 mg/dL (70-110)
[2020-12-25 20:30] LABS: Phosphorus 3.1 mg/dL (2.5-4.5)
[2020-12-25 20:58] LABS: Ferritin 1800 ng/mL (15-150)
[2020-12-25 22:00] LABS: Glucose Point of Care 126 mg/dL (70-110)
[2020-12-25] MEDS: famotidine 20 mg/2 mL INJ IVP (22:13)
[2020-12-25] MEDS: ferrous gluconate 324 mg Tablet PO (22:14)
[2020-12-25 23:34] LABS: Iron 20 ug/dL (37-145); Total Iron Binding Capacity 80 mcg/dl; Unsaturated Iron Binding 60 ug/dL (112-347)
[2020-12-26] VITALS (41 sets, daily range): BP systolic 90–152; BP diastolic 45–80; PULSE 64–89; RESP 7–20; TEMP 36.2–37.7; O2SAT 18–100
[2020-12-26] MEDS: piperacillin-tazobactam 3.375 GM in sodium chloride 0.9% (plus) 50 ML IV (03:10)
[2020-12-26] MEDS: carvedilol 25 mg Tablet PO (05:50)
[2020-12-26] MEDS: levothyroxine 75 mcg Tablet 150 MCG PO (05:50)
[2020-12-26 06:54] LABS: Basophils # 0.1 10^3/uL (0.0-0.1); Basophils % 0.6 %; Eosinophils # 0.4 10^3/uL (0.0-0.8); Eosinophils % 4.9 %; Hematocrit 24.4 % (37.0-47.0); Hemoglobin 7.5 g/dL (11.5-15.3); Lymphocytes # 1.2 10^3/uL (0.8-4.8); Lymphocytes % 14.1 %; Mean Corpuscular HGB Conc 30.7 g/dL (30.0-36.0); Mean Corpuscular Hemoglobin 31.5 pg (28.0-34.0); Mean Corpuscular Volume 102.5 fL (81-99); Monocytes # 0.8 10^3/uL (0.2-0.9); Monocytes % 8.8 %; Neutrophils # 6.13 10^3/uL (1.8-7.7); Neutrophils % 71.3 %; Nucleated Red Blood Cells % 0 %; Platelet Count 184 10^3/cmm (130-400); Red Blood Count 2.38 10^6/uL (4.1-5.3); White Blood Count 8.6 10^3/uL (4.0-10.0)
[2020-12-26 07:16] LABS: Glucose Point of Care 112 mg/dL (70-110)
[2020-12-26 07:52] LABS: Alanine Aminotransferase 8 U/L (0-33); Albumin Level 2.1 g/dL (3.5-5.2); Alkaline Phosphatase 108 IU/L (35-105); Blood Urea Nitrogen 8 mg/dL (6-20); C Reactive Protein 34.5 mg/L (0.0-4.9); Calcium 7.6 mg/dL (8.5-10.5); Carbon Dioxide 26 mmol/L (22-29); Chloride 98 mmol/L (98-107); Cholesterol 82 mg/dL (0-200); Globulin 4.6 g/dL (1.3-4.6); Glomerular Filtration Rate 18.1 mL/min (90-130); Glucose 91 mg/dL (65-115); HDL Cholesterol 39 mg/dL (60-100); LDL Cholesterol Calculated 26 mg/dL (50-129); LDL HDL Ratio 0.67 RATIO (0.00-3.22); Magnesium 1.9 mg/dL (1.7-2.3); Osmolality Calculated 274 mOsm/kg (285-295); Phosphorus 2.3 mg/dL (2.5-4.5); Sodium 133 mmol/L (136-145); Total Bilirubin 0.4 mg/dL (0.15-1.2); Total Protein 6.7 g/dL (6.6-8.7); Triglycerides 83 mg/dL (0-150)
[2020-12-26 08:09] LABS: Aspartate Amino Transferase 21 U/L (0-32)
[2020-12-26 08:41] LABS: Estmated Average Glucose 94; Hemoglobin A1C 4.9 % (4.0-6.0)
[2020-12-26] MEDS: sodium chloride 0.9% 1,000 ML 30 ML IV (09:16)
--- NOTE | 2020-12-26 09:35 | P.ANESASSM_ITS ---
Pre-Anesthetic Assessment Pre-Anesthetic Assessment: Height/Weight: Height 1.68 m Weight 113.852 kg Temp Pulse Resp BP Pulse Ox 98.6 F 79 18 143/72 98 12/26/20 09:10 12/26/20 09:10 12/26/20 09:10 12/26/20 09:10 12/26/20 09:10 Preop Diagnosis: Requiring hemodialysis catheter/end-stage renal disease Proposed Procedure: Operation Date: 12/26/20 09:20 Proposed Procedures p Below Knee Amputation(Left) - Marbin Tobar MD Was Beta Cristo taken within 24 hours: Yes Social: Social History: No alcohol and No tobacco Exam: Pre-Anes Outpt Exam: alert, oriented x 3, clear to auscultation bilaterally and regular rate & rhythm Airway: Submandibular: WNL Cervical ROM: WNL MP: 2 Dentition: Full Pulmonary: Pulmonary: None reported CV/HEM: CV/HEM: Anemia, CHF and HTN : : Chronic renal failure GI: GI: GERD Metabolic: Metabolic: DM and Morbid obesity Musc/skel: Musc/skel: Weakness Neuropsych: Neuropsych: Neuropathy Anesthetic Plan: ASA status: 3 Anesthesia: Regional (specify below) Other: SAB Risk of > 500 ml blood loss (7ml/kg in children): No Meds/Allergies Current Medications: Current Medications Generic Name Dose Route Start Last Admin Trade Name Freq PRN Reason Stop Dose Admin Carvedilol 25 mg 12/26/20 06:00 12/26/20 05:50 Carvedilol 25 Mg Tablet PO 25 mg DAILY@0600 SHELBY Administration Famotidine 20 mg 12/25/20 15:49 12/25/20 22:13 Famotidine 20 Mg /2 Ml Inj IVP 20 mg Q12H SHELBY Administration Ferrous Gluconate 324 mg 12/25/20 18:00 12/25/20 22:14 Ferrous Gluconat e 324 Mg Tablet PO 324 mg BIDWM SHELBY Administration Piperacillin Sod/T azobactam 50 mls @ 12.5 mls /hr 12/25/20 15:00 12/26/20 08:25 Sod 3.375 gm/ So dium Chloride IV Infused Q12H SHELBY Infusion Protocol Vancomycin/PEG/NAD A/Lysine/Water 1,500 mg in 300 m ls @ 200 mls/hr 12/25/20 15:00 12/25/20 16:07 Vancocin IV Infused Q48H SHELBY Infusion Sodium Chloride 1,000 mls @ 30 ml s/hr 12/26/20 09:00 12/26/20 09:16 Sodium Chloride 0.9% IV 12/27/20 08:59 30 mls/hr .Q24H SHELBY Administration Insulin Aspart 0 unit 12/25/20 18:00 12/25/20 22:37 Insulin Aspart 1 00 Unit/1 Ml SUBCUT Not Given WM&BEDTIME SHELBY Protocol Levothyroxine Sodi um 150 mcg 12/26/20 06:00 12/26/20 05:50 Levothyroxine 75 Mcg Tablet PO 150 mcg DAILY@0600 SHELBY Administration PFSH Anesthesia PFSH: Medical History Acute bronchitis Anemia Aortic valve endocarditis Atypical chest pain Bacteremia due to Staphylococcus EKG done this morning revealed normal sinus rhythm with a left axis deviation. Voltage area for LVH. No significant ST-T changes. Congestive heart failure Diabetes Diabetes mellitus type 2, insulin-dependent Dyspnea on exertion Elevated troponin I level ESRD (end stage renal disease) History of colon polyps History of congestive heart failure History of MRSA infection Hyperlipidemia Hypertension Hypothyroidism Infectious endocarditis MSSA (methicillin susceptible Staphylococcus aureus) Recent transesophageal echo rule out infective endocarditis, MRI of spine rule out epidural abscess, Status post IV cefazolin course finished on 06/02 Protein-energy malnutrition SOB (shortness of breath) Surgical History Central vascular catheter in place upon arrival History of cholecystectomy History of lumbar surgery Due to epidural abscess in March 2018 Peritoneal dialysis catheter in place Family History Mother Cancer Uterine and breast cancer Father Diabetes Other CAD (coronary artery disease) Social History Smoking and tobacco status: never smoked Alcohol intake: current Alcohol intake frequency: holidays/special occasions only Female Reproductive History: Date of last menstrual period: 05/28/14 Data Anesthesia CBC & Chem 7: 12/26/20 05:52 12/26/20 05:52 Other Labs: Laboratory Results - last 48 hr 12/25/20 12/25/20 12/25/20 12:20 12:20 12:20 WBC 9.4 RBC 2.48 L Hgb 7.8 L Hct 24.9 L MCV 100.4 H MCH 31.5 MCHC 31.3 RDW 16.5 H Plt Count 183 MPV 9.4 Neut % (Auto) 74.8 Lymph % (Auto) 10.5 [place] % (Auto) 9.4 Eos % (Auto) 4.3 Baso % (Auto) 0.5 Neut # (Auto) 7.04 Lymph # (Auto) 1.0 [place] # (Auto) 0.9 Eos # (Auto) 0.4 Baso # (Auto) 0.1 Nucleated RBC % (auto) 0 Nucleated RBCs # 0.0 PT INR Sodium 133 L Potassium 4.0 Chloride 97 L Carbon Dioxide 27 Anion Gap 13.0 BUN 14 Creatinine 4.2 H GFR Calculation 10.9 L Glucose 161 H POC Glucose Estimat Average Glucose Hemoglobin A1c Calculated Osmolality 280 L Lactate 1.1 Calcium 7.8 L Phosphorus Magnesium Iron TIBC % Saturation Unsat Iron Binding Ferritin Total Bilirubin 0.3 AST 11 ALT 7 Alkaline Phosphatase 120 H C-Reactive Protein NT-Pro-B Natriuret Pep Total Protein 7.2 Albumin 2.4 L Globulin 4.8 H Triglycerides Cholesterol LDL Cholesterol, Calc HDL Cholesterol LDL/HDL Ratio Cholesterol/HDL Ratio Procalcitonin TSH Hep Bs Antigen Hep Bs Antibody Hepatitis C Antibody 12/25/20 12/25/20 12/25/20 12:20 12:20 12:20 WBC RBC Hgb Hct MCV MCH MCHC RDW Plt Count MPV Neut % (Auto) Lymph % (Auto) [place] % (Auto) Eos % (Auto) Baso % (Auto) Neut # (Auto) Lymph # (Auto) [place] # (Auto) Eos # (Auto) Baso # (Auto) Nucleated RBC % (auto) Nucleated RBCs # PT INR Sodium Potassium Chloride Carbon Dioxide Anion Gap BUN Creatinine GFR Calculation Glucose POC Glucose Estimat Average Glucose Hemoglobin A1c Calculated Osmolality Lactate Calcium Phosphorus Magnesium Iron 20 L TIBC 80 % Saturation 25.0 Unsat Iron Binding 60 L Ferritin Total Bilirubin AST ALT Alkaline Phosphatase C-Reactive Protein NT-Pro-B Natriuret Pep 310402 H Total Protein Albumin Globulin Triglycerides Cholesterol LDL Cholesterol, Calc HDL Cholesterol LDL/HDL Ratio Cholesterol/HDL Ratio Procalcitonin 0.73 H TSH 3.12 Cancelled Hep Bs Antigen Non-reactive Hep Bs Antibody 67.3 H Hepatitis C Antibody Non-reactive 12/25/20 12/25/20 12/25/20 12:20 17:42 21:35 WBC RBC Hgb Hct MCV MCH MCHC RDW Plt Count MPV Neut % (Auto) Lymph % (Auto) [place] % (Auto) Eos % (Auto) Baso % (Auto) Neut # (Auto) Lymph # (Auto) [place] # (Auto) Eos # (Auto) Baso # (Auto) Nucleated RBC % (auto) Nucleated RBCs # PT INR Sodium Potassium Chloride Carbon Dioxide Anion Gap BUN Creatinine GFR Calculation Glucose POC Glucose 117 H 126 H Estimat Average Glucose Hemoglobin A1c Calculated Osmolality Lactate Calcium Phosphorus 3.1 Magnesium Iron TIBC % Saturation Unsat Iron Binding Ferritin 1800 H Total Bilirubin AST ALT Alkaline Phosphatase C-Reactive Protein NT-Pro-B Natriuret Pep Total Protein Albumin Globulin Triglycerides Cholesterol LDL Cholesterol, Calc HDL Cholesterol LDL/HDL Ratio Cholesterol/HDL Ratio Procalcitonin TSH Hep Bs Antigen Hep Bs Antibody Hepatitis C Antibody 12/26/20 12/26/20 12/26/20 05:52 05:52 05:52 WBC 8.6 RBC 2.38 L Hgb 7.5 L Hct 24.4 L MCV 102.5 H MCH 31.5 MCHC 30.7 RDW 17.0 H Plt Count 184 MPV 10.0 Neut % (Auto) 71.3 Lymph % (Auto) 14.1 [place] % (Auto) 8.8 Eos % (Auto) 4.9 Baso % (Auto) 0.6 Neut # (Auto) 6.13 Lymph # (Auto) 1.2 [place] # (Auto) 0.8 Eos # (Auto) 0.4 Baso # (Auto) 0.1 Nucleated RBC % (auto) 0 Nucleated RBCs # 0.0 PT 16.60 H INR 1.30 H Sodium 133 L Potassium 4.0 Chloride 98 Carbon Dioxide 26 Anion Gap 13.0 BUN 8 Creatinine 2.7 H GFR Calculation 18.1 L Glucose 91 POC Glucose Estimat Average Glucose Hemoglobin A1c Calculated Osmolality 274 L Lactate Calcium 7.6 L Phosphorus 2.3 L Magnesium 1.9 Iron TIBC % Saturation Unsat Iron Binding Ferritin Total Bilirubin 0.4 AST 21 ALT 8 Alkaline Phosphatase 108 H C-Reactive Protein 34.5 H NT-Pro-B Natriuret Pep Total Protein 6.7 Albumin 2.1 L Globulin 4.6 Triglycerides 83 Cholesterol 82 LDL Cholesterol, Calc 26 L HDL Cholesterol 39 L LDL/HDL Ratio 0.67 Cholesterol/HDL Ratio 2.10 Procalcitonin TSH Hep Bs Antigen Hep Bs Antibody Hepatitis C Antibody 12/26/20 12/26/20 05:52 06:47 WBC RBC Hgb Hct MCV MCH MCHC RDW Plt Count MPV Neut % (Auto) Lymph % (Auto) [place] % (Auto) Eos % (Auto) Baso % (Auto) Neut # (Auto) Lymph # (Auto) [place] # (Auto) Eos # (Auto) Baso # (Auto) Nucleated RBC % (auto) Nucleated RBCs # PT INR Sodium Potassium Chloride Carbon Dioxide Anion Gap BUN Creatinine GFR Calculation Glucose POC Glucose 112 H Estimat Average Glucose 94 Hemoglobin A1c 4.9 Calculated Osmolality Lactate Calcium Phosphorus Magnesium Iron TIBC % Saturation Unsat Iron Binding Ferritin Total Bilirubin AST ALT Alkaline Phosphatase C-Reactive Protein NT-Pro-B Natriuret Pep Total Protein Albumin Globulin Triglycerides Cholesterol LDL Cholesterol, Calc HDL Cholesterol LDL/HDL Ratio Cholesterol/HDL Ratio Procalcitonin TSH Hep Bs Antigen Hep Bs Antibody Hepatitis C Antibody Micro: Microbiology 12/25/20 12:20 Blood Culture - Preliminary Blood SPECIMEN COLLECTED 12/25/20 12:20 Blood Culture - Preliminary Blood SPECIMEN COLLECTED Cardiac Studies: No Data to Display
--- NOTE | 2020-12-26 09:41 | PM.CONSULT ---
Providers/Reason For Consult Consulting Physican/Specialty*: Marbin Tobar MD; orthopedic surgery Reason for Consult*: Charcot arthropathy bilateral lower extremities with osteomyelitis left ankle and gangrenous wound right foot Attending Physician: Angel Baez MD Primary Care Provider: Karen Bear MD History of Present Illness History of Present Illness Alesia Shaw is a 60 year old female unfortunate recent history. She states in 2018 she was diagnosed with a MRSA abscess in her spine. During the course of her treatment with antibiotics she acquired kidney disease and now is on hemodialysis. She has had problems with wounds in both lower extremities and has been under the care of her primary physician and wound care. She describes deformities in both feet which is more or less left her nonambulatory over the past year. She describes of 4 weeks ago developing drainage from the medial aspect of her left ankle in 2 weeks ago she was seen by her primary physician and given antibiotics. He was evaluated in wound care where the wound over her medial left ankle was seem to be deep communicating with the joint. She was seen by Dr. Santana on and he told her that she needed to go to the emergency room for admission for amputation. It was reported to me that she had quite a bit of erythema in her left foot last night. She was admitted to medicine has been treated with vancomycin and Zosyn. She denies any appreciable pain. As stated above she has not ambulated in the year. She is able to stand on her feet and transfer to the toilet and get in and out of bed. She has a who has been very involved with her care particularly with wound care. Meds/Allergies Home Medications and Allergies Home Medications Medication Instructions Recorded Confirmed Last Taken Type carvedilol 25 mg PO DAILY@0600 06/27/20 12/25/20 12/25/20 History insulin human U-100 NPH-regulr See Rx Instructions .ROUTE 07/23/20 12/25/20 11/22/20 Rx 70-30 mix 100 unit/mL subcutaneous .COMPLEX #10 ml susp insulin syringe-needle U-100 1 mL #100 ea 10/09/20 12/25/20 Unknown Rx 30 gauge x 1/2 Synthroid 150 mcg PO DAILY@0600 12/25/20 12/25/20 12/25/20 History linezolid 600 mg PO BID@0600,1800 12/25/20 12/25/20 12/25/20 History promethazine 25 mg PO Q6H PRN 12/25/20 12/25/20 Unknown History Allergies Allergy/AdvReac Type Severity Reaction Status Date / Time Iodinated Contrast Media Allergy ALGY-Hives Verified 12/25/20 11:08 Current Medications Current Medications Generic Name Dose Route Start Last Admin Trade Name Freq PRN Reason Stop Dose Admin Carvedilol 25 mg 12/26/20 06:00 12/26/20 05:50 Carvedilol 25 Mg Tablet PO 25 mg DAILY@0600 SHELBY Administration Famotidine 20 mg 12/25/20 15:49 12/25/20 22:13 Famotidine 20 Mg/2 Ml Inj IVP 20 mg Q12H SHELBY Administration Ferrous Gluconate 324 mg 12/25/20 18:00 12/25/20 22:14 Ferrous Gluconate 324 Mg Tablet PO 324 mg BIDWM SHELBY Administration Piperacillin Sod/Tazobactam 50 mls @ 12.5 mls/hr 12/25/20 15:00 12/26/20 08:25 Sod 3.375 gm/ Sodium Chloride IV Infused Q12H SHELBY Infusion Protocol Vancomycin/PEG/NA[place]/Lysine/Water 1,500 mg in 300 mls @ 200 mls/hr 12/25/20 15:00 12/25/20 16:07 Vancocin IV Infused Q48H SHELBY Infusion Sodium Chloride 1,000 mls @ 30 mls/hr 12/26/20 09:00 12/26/20 09:16 Sodium Chloride 0.9% IV 12/27/20 08:59 30 mls/hr .Q24H SHELBY Administration Insulin Aspart 0 unit 12/25/20 18:00 12/25/20 22:37 Insulin Aspart 100 Unit/1 Ml SUBCUT Not Given WM&BEDTIME SHELBY Protocol Levothyroxine Sodium 150 mcg 12/26/20 06:00 12/26/20 05:50 Levothyroxine 75 Mcg Tablet PO 150 mcg DAILY@0600 SHELBY Administration PFSH Acute PFSH: Medical History Acute bronchitis Anemia Aortic valve endocarditis Atypical chest pain Bacteremia due to Staphylococcus EKG done this morning revealed normal sinus rhythm with a left axis deviation. Voltage area for LVH. No significant ST-T changes. Congestive heart failure Diabetes Diabetes mellitus type 2, insulin-dependent Dyspnea on exertion Elevated troponin I level ESRD (end stage renal disease) History of colon polyps History of congestive heart failure History of MRSA infection Hyperlipidemia Hypertension Hypothyroidism Infectious endocarditis MSSA (methicillin susceptible Staphylococcus aureus) Recent transesophageal echo rule out infective endocarditis, MRI of spine rule out epidural abscess, Status post IV cefazolin course finished on 06/02 Protein-energy malnutrition SOB (shortness of breath) Surgical History Central vascular catheter in place upon arrival History of cholecystectomy History of lumbar surgery Due to epidural abscess in March 2018 Peritoneal dialysis catheter in place Family History Mother Cancer Uterine and breast cancer Father Diabetes Other CAD (coronary artery disease) Social History Smoking and tobacco status: never smoked Alcohol intake: current Alcohol intake frequency: holidays/special occasions only Female Reproductive History: Date of last menstrual period: 05/28/14 Vitals/I&O/Wt Last Vital Signs Temp 98.6 F 12/26/20 09:10 Pulse 79 12/26/20 09:10 Resp 18 12/26/20 09:10 BP 143/72 12/26/20 09:10 Pulse Ox 98 12/26/20 09:10 12/25/20 12/26/20 12/26/20 22:59 06:59 14:59 Intake Total 350 / 350 50 / 50 Balance 350 / 350 50 / 50 Weight last 48 hrs Weight 251 lb Weight 258 lb Physical Exam Narrative: EXAM NARRATIVE: Patient is a larger female supine in bed. She is pleasant to conversation and answers questions with good understanding. She has marked edema both lower extremities distal to the knees. Left ankle and foot are remarkable for a valgus alignment and a flaccid hindfoot and ankle. There is a area of gangrene identified over the heel. A 1 cm wound is seen over the medial ankle that is draining serous fluid. She has diminished sensation in the foot. Her foot is warm but I cannot feel any palpable dorsalis pedis or tibialis posterior pulses. The right ankle reveals a superficial area of green 5 cm in diameter. No ankle wounds are noted but is a valgus deformity across the ankle. She again has diminished sensation and absent pulses there. Data Micro: Micro: Microbiology 12/25/20 12:20 Blood Culture - Pr eliminary Blood SPECIMEN [facility] 12/25/20 12:20 Blood Culture - Pr eliminary Blood SPECIMEN [facility] Imaging^: Other Xray: I personally reviewed and interpreted this imaging study as follows: (3 views of both feet and 3 views the left ankle dated 12/24/2020) My impression: The patient has severe Charcot degeneration of both ankles and hindfeet. The left ankle reveals's fragmentation and collapse of the entire of the hindfoot with lateral dislocation of the talus and what is left of the mortise. There is fragmentation and collapse of the navicular and calcaneus. The foot is in varus alignment. The appearance is most consistent with Charcot degeneration but septic arthropathy cannot be excluded. Radiographs of the right foot revealed degeneration of the tibiotalar and talocalcaneal arc articulation with collapse of the hindfoot. Again suggestive of Charcot degeneration. Additional osteomyelitis cannot be excluded. A&P Assessment and plan (1) Charcot's joint, left ankle and foot: Status: Acute (2) Septic arthritis of left ankle: Status: Acute (3) Diabetic ulcer of left foot: The clinical appearance of the left ankle is consistent with longstanding Charcot degeneration and now deep infection. With the degree of bone destruction I certainly agree with Dr. Santana that there really is no salvage operations for the foot and ankle. The only option we would have for this would be amputation. I discussed amputation with the patient. She has hopes of maintaining some ambulatory status. I told her below-knee amputation would probably be the only chance she would have being able to continue to ambulate somewhat. She has disease in her contralateral extremity and is heavy and there really is no chance of regaining amatory status with bilateral AKA's. Altogether her skin seems warm and I think we have a reasonable chance of a below-knee amputation healing. I told her that if it fails we would have to proceed with an above-knee amputation. Status: Acute (4) Charcot's joint, right ankle and foot: Status: Acute (5) Diabetic ulcer of right foot: The patient as Charcot degeneration in the right ankle and a area of gangrene on the heel. Fortunately there is no coexisting cellulitis. I suspect she will need an amputation here as well. She still has hopes of attempting to save the foot. We can get Dr. Santana in on Monday to see if he can help with local wound care or bracing. We will proceed with a left below-knee amputation today.. Status: Acute Coding Level of Care Code Acute [id number] Technical Lead for [facility] Diagnoses Charcot's joint, left ankle and foot M14.672 Septic arthritis of left ankle M00.9 Diabetic ulcer of left foot E11.621; L97.529 Charcot's joint, right ankle and foot M14.671 Diabetic ulcer of right foot E11.621; L97.519
--- NOTE | 2020-12-26 11:29 | P.PN_ITS ---
Subjective Subjective: Interval history: No acute events overnight. Patient has remained hemodynamically stable and afebrile. Patient due for left BKA today. Vitals/I&O/Wt Last Vital Signs Temp 98.6 F 12/26/20 09:10 Pulse 79 12/26/20 09:10 Resp 18 12/26/20 09:10 BP 143/72 12/26/20 09:10 Pulse Ox 98 12/26/20 09:10 12/25/20 12/26/20 12/26/20 22:59 06:59 14:59 Intake Total 350 / 350 50 / 50 Balance 350 / 350 50 / 50 Weight last 48 hrs Weight 113.852 kg Weight 117.027 kg Physical Exam 2 Narrative: EXAM NARRATIVE: General: No acute distress, AO x3 morbid obesity HEENT: PERRLA, pupils bilaterally equal and reactive Chest: Normal vesicular breath sounds, no added sounds, equal good air entry bilaterally CVS: S1-S2 regular, no murmurs, no tachycardia, no gallops, no rubs Abdomen: Soft, nontender, no organomegaly, bowel sounds present Neuro: No focal deficits, no facial deformity, AO x3, power 5/5 in all limbs Extremities: Bilateral dorsalis pedis and posterior tibialis artery nonpalpable secondary to edema, capillary refill less than 3 seconds. Wound at the left medial malleolus probes to bone with serous sanguinous drainage and localized erythema no proximal lymphangitic streaking. Indurated skin at lower extremities. Wound at the left plantar heel with eschar No underlying fluctuance or purulent drainage. Wound at the right plantar heel also with eschar, no underlying fluctuance. Data : 12/26/20 11:17 12/26/20 05:52 Other Labs: Pertinent Labs During Stay 12/25/20 12/25/20 12/25/20 12:20 12:20 12:20 Hemoglobin A1c Iron 20 L TIBC 80 % Saturation 25.0 Ferritin 1800 H C-Reactive Protein NT-Pro-B Natriuret Pep 795289 H Triglycerides Cholesterol HDL Cholesterol Procalcitonin 0.73 H TSH 3.12 Cancelled 12/26/20 12/26/20 05:52 05:52 Hemoglobin A1c 4.9 Iron TIBC % Saturation Ferritin C-Reactive Protein 34.5 H NT-Pro-B Natriuret Pep Triglycerides 83 Cholesterol 82 HDL Cholesterol 39 L Procalcitonin TSH Micro: Microbiology 12/25/20 12:20 Blood Culture - Preliminary Blood SPECIMEN COLLECTED 12/25/20 12:20 Blood Culture - Preliminary Blood SPECIMEN COLLECTED A&P Assessment and plan (1) Cellulitis and abscess of lower extremity: Status: Acute (2) Diabetic ulcer of foot associated with diabetes mellitus due to underlying condition, limited to breakdown of skin: Status: Acute (3) Charcot's joint of foot in type 2 diabetes mellitus: Status: Acute (4) Anemia: Status: Acute Qualifiers: Anemia type: unspecified type Qualified Code(s): D64.9 - Anemia, unspecified (5) ESRD (end stage renal disease): Status: Acute (6) History of congestive heart failure: Status: Acute (7) Diabetes: Status: Acute Qualifiers: 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 Santana. Left BKA with Dr. Segura today. Continue patient on vancomycin and Zosyn as per culture results. We will follow-up blood culture and urine culture results. Patient has previous history of Enterococcus faecalis and MRSA growing from her wound in the past. For now cover for both. Most likely patient would not require antibiotics post BKA until her blood cultures come back positive. NHAN results awaited. End-stage renal disease on hemodialysis: Hemodialysis session Monday, Monday, Monday. Appreciate nephrology consultation. No metabolic acidosis letter abnormality at present. Anemia: Most likely anemia of chronic disease not responding to erythropoietin and requiring multiple transfusions. Patient has followed up with Dr. Goel in the past for the same. Cannot rule out multiple myeloma versus myelodysplastic syndrome. Patient is awaiting bone marrow biopsy. Iron panel, ferritin levels appreciated. We will continue to monitor hemoglobin postoperatively. Type 2 diabetes mellitus: HbA1c 4.9. Change insulin sliding scale to low-dose protocol. Carb consistent diet. History of congestive heart failure: Last echocardiogram done in 2019 shows an EF of 55% with no R WMA and mild TR. No exacerbation at present. Monitor strict input output. Daily weights. Hypertension: Goal blood pressure less than 140/90 mmHg keeping mean over 65. Continue home dose of carvedilol for now. Continue other chronic medications including Synthroid. Check iron panel, ferritin, reticulocyte count, vitamin B12, folate level, TSH. Full code. Renal dialysis carb consistent diet. DVT prophylaxis: We will hold off on starting pharmacological DVT prophylaxis because of possible procedure tomorrow along with chronic anemia. Cannot do SCDs or foot pumps because of extensive lymphedema and open wounds. Famotidine for PUD prophylaxis. Attestations Medical Necessity Statement*: Patient requires further hospitalization for left BKA in setting of recurrent cellulitis/osteomyelitis due to charcoaled foot in patient with ESRD, type 2 diabetes mellitus. Time Spent in Patient Care: Greater than 35 minutes (>than 50% of time spent in counselling and/or direct pt care on unit) . 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
[2020-12-26 12:13] LABS: Basophils # 0.1 10^3/uL (0.0-0.1); Basophils % 0.8 %; Eosinophils # 0.4 10^3/uL (0.0-0.8); Eosinophils % 5.4 %; Lymphocytes # 1.2 10^3/uL (0.8-4.8); Mean Corpuscular Hemoglobin 31.9 pg (28.0-34.0); Mean Corpuscular Volume 102.7 fL (81-99); Mean Platelet Volume 9.8 fL (7.4-10.4); Monocytes # 0.5 10^3/uL (0.2-0.9); Neutrophils # 4.35 10^3/uL (1.8-7.7); Neutrophils % 66.3 %; Nucleated Red Blood Cells % 0 %; Platelet Count 161 10^3/cmm (130-400); Red Blood Count 1.82 10^6/uL (4.1-5.3); Red Cell Distribution Width 17.1 % (12.1-15.1); White Blood Count 6.5 10^3/uL (4.0-10.0)
[2020-12-26 12:15] LABS: Hemoglobin 5.8 g/dL (11.5-15.3)
[2020-12-26 12:16] LABS: Hematocrit 18.7 % (37.0-47.0)
[2020-12-26] MEDS: fentaNYL 50 mcg/mL INJ 2mL IVP (13:20)
[2020-12-26 13:22] LABS: Glucose Point of Care 108 mg/dL (70-110)
--- NOTE | 2020-12-26 13:23 | PM.OP ---
Operative Report Date of procedure: December 26, 2020 Pre-op Diagnosis: Osteomyelitis left ankle/Charcot degeneration Post-op diagnosis: same Post-op Findings: Same Procedure Done: Left below-knee amputation Pathology: none sent Surgeon: Marbin Tobar Anesthesia: Nerve Block (Spinal) Estimated blood loss (mL): 2,200 IV fluids (mL): 900 Complications: None Findings: Patient had Charcot degeneration in the ankle and hindfoot with severe destruction of bone and a draining wound suggestive of osteomyelitis Condition: stable Procedure: The patient was taken to the operating room and given a spinal anesthesia. She was given no additional antibiotics other than those given on the floor. A tourniquet was applied on the left leg. The draining sinus from the ankle was isolated from the surgical field with a sterile glove and adhesive drapes. The leg was prepped in the usual fashion. A tourniquet was initially inflated 250 mmHg. A short anterior curved incision was made over the tibia with significant bleeding suggestive of insufficient pressure and veinous bleeding. Hemostasis was accomplished electrocautery. The tourniquet was then briefly deflated with decreased bleeding. A longer posterior flap was fashioned with a scalpel blade dissection was carried down to the tibia with electrocautery. Dissection was then accomplished to the anterior lateral musculature. Excessively calcified vessels of the tibialis anterior were then identified. The tourniquet was reinflated this time to 400mmHg with some improvement in bleeding. Ultimately the calcified vessels were controlled with hemostats. An oscillating saw was used to transect the tibia just proximal to the anterior flap and the fibula at a slightly higher level. An amputation knife was used to complete the amputation. Multiple much smaller calcified vessels were identified with continued bleeding despite the tourniquet. The tibialis anterior and popliteal vessels were identified and ligated with multiple 0 silk sutures. Multiple smaller calcified vessels were dealt with with electrocautery. The tourniquet was then deflated with no significant additional bleeding identified. Posterior musculature could be drawn relatively easily up to the tibia. 3 drill holes were made in the tibia and 2 ultra braid sutures passed through the holes exiting the anterior cortex. The sutures were secured to the gastrocnemius/soleus musculature drawing that flap anteriorly. Ethibond suture was then used to approximate the anterior flap to the fascia over the anterior lateral musculature. Patient's subcutaneous tissues were indurated and calcified which made mobilization particularly medially difficult. Cautery was used to thin the stiff posterior medial tissue creating more pliable flaps. The skin was then reapproximated beginning laterally with 1 Prolene suture in a vertical mattress fashion. The skin edges were covered with Xeroflo gauze, 4 x 4's, ABD pads, compressive web roll and an Aba wrap. The patient was taken to recovery in stable condition. Total fluids provided during the case included 900 cc of crystalloid, 250 cc of albumin, 2 units of fresh frozen plasma and 1 unit of packed red blood cells with a second unit scheduled to be given in PACU.
--- NOTE | 2020-12-26 13:50 | ANE.PACU2 ---
Inpatient post-anesthesia follow up: Airway intact: Yes Vital signs: Temperature 98.4 F Pulse Rate [Monito r] 78 Pulse Rate 70 Respiratory Rate 17 Blood Pressure [Le ft Arm] 146/76 Blood Pressure 121/73 Pulse Oximetry 97 Oxygen Delivery Me thod Nasal Cannula Oxygen Flow Rate 2 Fraction of Inspir ed Oxygen Hydration adequate: Yes Nausea and vomiting: No Pain level: 2 Mental status: Baseline Additional Comments: Significant intraop blood loss, transfused and stable.
--- NOTE | 2020-12-26 13:55 | SUR.PHASEI ---
1242 PT TO OPS ROOM 11 AWAKE ALERT ON 8LMASK, GOOD RESP BP LOW, PRBC INFUSING PER WARMER,AT FAST RATE BY CRACKER AND COOKIE MACHINE OPERATOR AND DR HAM BOTH AT BEDSIDE. TO # 18 IV TO LT WRIST STARTED BY ANESTHESIA IN OR, DRESING TO LT STUMP D/I KNEES ELEVATED PER BED HOB AT 10 DEGREES, IV INFUSING AT MOD RATE PER CRACKER AND COOKIE MACHINE OPERATOR. 1252 UNIT INFUSED AND 2ND UNIT STARTED BY C OWNS SYLVESTER AT FAST RATE, DR HAM AT BEDSIDE,BLOOD WARMER USED IV SITE INTACT NO SWELLING NOTED PATENT VSS TAKEN 1320 PT COMPLAINS OF PAIN TO RT STUMP , SPINAL LEVEL TO HIP AREA, PT FEELS SOME TOUGH TO RT KNEE AREA. AND ABLE TO MOVE RT FOOT. SEE PAIN MED GIVEN PER DR HAM'S ORDER 1310 PT VERY ALERT STATES PAIN IS BETTER, PT UPDATED AND TO ROOM TO BE WITH PT , PT NOW ON 2LNC. 1327 2NS UNIT INFUSED AND FLUSHED PER DR HAM, IV SITE HEPLOCKED BY Sita TORRES RN. PT AWAKE ALERT SATS 97% NO DISTRESS NOTED. 1400 STAT H&H DRAWN BY RN , PT TO GO TO FLOOR PER DR HAM'S OK VSS PT ALERT , WILL CALL REPORT TO FLOOR. LT STUMP DRESSING D/I PT COLOR MORE PINK VSS.
[2020-12-26 14:22] LABS: Hematocrit 18.8 % (37.0-47.0)
[2020-12-26 14:24] LABS: Hemoglobin 6.2 g/dL (11.5-15.3)
[2020-12-26] MEDS: HYDROcodone-acetaminophen 5-325 mg Tablet 1 TAB PO (14:52)
[2020-12-26] MEDS: ondansetron 2 mg/ML SDV 2 mL 4 MG IVP (14:52)
[2020-12-26] MEDS: piperacillin-tazobactam 3.375 GM in sodium chloride 0.9% (plus) 50 ML 6 GM IV (14:53)
[2020-12-26] MEDS: HYDROmorphone 1 mg/mL INJ 1 mL IVP ×3 (15:08→22:45)
--- NOTE | 2020-12-26 15:55 | PC.NURSE ---
To Floor: Pt brought to floor by bed. Pt is awake and alert. -VSS. -Pt has NIC wrap bandage to Left BKA. -20g IV to Left arm and 20g to Right arm; both PDI. -On RA. -Pt is rating pain at 9/10 to left BKA. -PRN pain med is being administered.
--- NOTE | 2020-12-26 16:44 | PM.PN ---
Subjective Subjective: Interval history: seen postop BKA, other than pain in left leg, no complaints. She has eaten a small meal. Current BS 144. O2sat 98% RA Received 2uFFP earlier and has orders for 2 units pRBC Medications: Reviewed: Yes Vitals/I&O/Wt Last Vital Signs Temp 97.8 F 12/26/20 15:30 Pulse 74 12/26/20 15:30 Resp 18 12/26/20 15:30 BP 118/69 12/26/20 15:30 Pulse Ox 96 12/26/20 15:30 12/26/20 12/26/20 12/26/20 06:59 14:59 22:59 Intake Total 1243 / 1243 Output Total 2200 / 2200 Balance -957 / -957 Weight last 48 hrs Weight 113.852 kg Weight 117.027 kg Physical Exam Const: COMMON NORMALS: alert GENERAL APPEARANCE: cooperative Neuro: SENSORIUM/ORIENTATION: Yes alert Data : 12/26/20 14:00 12/26/20 05:52 Micro: Microbiology 12/25/20 12:20 Blood Culture - Preliminary Blood NEGATIVE TO DATE 12/25/20 12:20 Blood Culture - Preliminary Blood NEGATIVE TO DATE A&P Additional A&P Information 1. ESRD currently on hemodialysis MWF via left IJ tunneled catheter 2. Diabetic foot infection/Charcot joint s/p left BKA 3. Anemia, worsened postop, will receive 2 additional units pRBC tonight 4. Mild hyponatremia 5. Hypoalbuminemia Plan: May need HD tomorrow. Will arrange to flush PD catheter over weekend. Add Protein supplements. Check vancomycin levels predosing. Attestations Medical Necessity Statement*: postop BKA Time Spent in Patient Care: 16 - 35 minutes Coding Level of Care Code Acute Evaluation Engineer for Gregorio Thompson
[2020-12-26 16:53] LABS: Glucose Point of Care 144 mg/dL (70-110)
[2020-12-26] MEDS: promethazine 25 mg Tablet PO (17:51)
[2020-12-26 20:46] LABS: Glucose Point of Care 138 mg/dL (70-110)
[2020-12-26] MEDS: famotidine 20 mg/2 mL INJ IVP (22:41)
[2020-12-27] VITALS (11 sets, daily range): BP systolic 101–153; BP diastolic 58–76; PULSE 71–89; RESP 17–20; TEMP 36.1–37.4; O2SAT 96–100
[2020-12-27 01:29] LABS: Hematocrit 23.1 % (37.0-47.0); Hemoglobin 7.7 g/dL (11.5-15.3)
[2020-12-27] MEDS: HYDROcodone-acetaminophen 5-325 mg Tablet 1 TAB PO ×3 (02:01→20:51)
[2020-12-27] MEDS: piperacillin-tazobactam 3.375 GM in sodium chloride 0.9% (plus) 50 ML IV ×2 (02:12→15:41)
[2020-12-27] MEDS: ondansetron 2 mg/ML SDV 2 mL 4 MG IVP (02:12)
[2020-12-27] MEDS: levothyroxine 75 mcg Tablet 150 MCG PO (05:46)
[2020-12-27] MEDS: HYDROmorphone 1 mg/mL INJ 1 mL IVP ×2 (05:57→15:32)
[2020-12-27 06:26] LABS: Basophils # 0.1 10^3/uL (0.0-0.1); Basophils % 0.6 %; Eosinophils # 0.5 10^3/uL (0.0-0.8); Eosinophils % 4.9 %; Hematocrit 23.5 % (37.0-47.0); Hemoglobin 7.8 g/dL (11.5-15.3); Lymphocytes # 1.7 10^3/uL (0.8-4.8); Lymphocytes % 18.3 %; Mean Corpuscular HGB Conc 33.2 g/dL (30.0-36.0); Mean Corpuscular Hemoglobin 31.5 pg (28.0-34.0); Mean Platelet Volume 9.3 fL (7.4-10.4); Monocytes % 10.9 %; Neutrophils # 6.05 10^3/uL (1.8-7.7); Neutrophils % 64.8 %; Nucleated Red Blood Cells % 0 %; Platelet Count 173 10^3/cmm (130-400); Red Blood Count 2.48 10^6/uL (4.1-5.3); Red Cell Distribution Width 16.9 % (12.1-15.1); White Blood Count 9.4 10^3/uL (4.0-10.0)
[2020-12-27 06:31] LABS: Alanine Aminotransferase < 5 U/L (0-33); Alkaline Phosphatase 79 IU/L (35-105); Aspartate Amino Transferase 10 U/L (0-32); Blood Urea Nitrogen 13 mg/dL (6-20); Calcium 7.3 mg/dL (8.5-10.5); Carbon Dioxide 25 mmol/L (22-29); Chloride 99 mmol/L (98-107); Globulin 3.1 g/dL (1.3-4.6); Glomerular Filtration Rate 12.6 mL/min (90-130); Glucose 106 mg/dL (65-115); Osmolality Calculated 273 mOsm/kg (285-295); Sodium 131 mmol/L (136-145); Total Bilirubin 0.6 mg/dL (0.15-1.2); Total Protein 5.1 g/dL (6.6-8.7)
[2020-12-27 06:40] LABS: Glucose Point of Care 102 mg/dL (70-110)
--- NOTE | 2020-12-27 07:27 | PM.PN ---
Subjective Subjective: Interval history: feels well. no n/v/f/cp/kearney. s/p Rt BKA- left foot ulcer Medications: Reviewed: Yes Medication Review Details: Current Medications Acetaminophen (Acetaminophen 325 Mg Tablet) 650 mg PO Q6H PRN PRN Reason: Mild/Mod Pain Or Temp >/= 101 Hydrocodone Bitart/Acetaminophen (Hydrocodone-Acetaminophen 5-325 Mg Tablet) 1 tab PO Q8H PRN PRN Reason: MODERATE TO SEVERE PAIN Last Admin: 12/27/20 02:01 Dose: 1 tab Documented by: Bisacodyl (Bisacodyl 5 Mg Tablet) 10 mg PO DAILY PRN PRN Reason: CONSTIPATION Carvedilol (Carvedilol 25 Mg Tablet) 25 mg PO DAILY@0600 [facility] Last Admin: 12/26/20 05:50 Dose: 25 mg Documented by: Dextrose (Dextrose 50% Syringe 50 Ml) 25 ml IVP ONCE PRN; Protocol PRN Reason: hypoglycemia protocol Dextrose (Dextrose 50% Syringe 50 Ml) 50 ml IVP PRN PRN; Protocol PRN Reason: hypoglycemia protocol Famotidine (Famotidine 20 Mg/2 Ml Inj) 20 mg IVP Q12H [facility] Last Admin: 12/26/20 22:41 Dose: 20 mg Documented by: Ferrous Gluconate (Ferrous Gluconate 324 Mg Tablet) 324 mg PO BIDWM [facility] Last Admin: 12/26/20 20:51 Dose: Not Given Documented by: Glucagon (Glucagon 1 Mg/Ml Inj 1 Ml) 1 mg IM ONCE PRN; Protocol PRN Reason: Adult Acute Hypoglycemia Prot. Hydromorphone HCl (Hydromorphone 1 Mg/Ml Inj 1 Ml) 0.5 - 1 mg IVP Q3H PRN PRN Reason: Pain not managed by oral agent Last Admin: 12/27/20 05:57 Dose: 1 mg Documented by: Piperacillin Sod/Tazobactam (Sod 3.375 gm/ Sodium Chloride) 50 mls @ 12.5 mls/hr IV Q12H [facility]; Protocol Last Infusion: 12/27/20 06:59 Dose: Infused Documented by: Vancomycin/PEG/NADA/Lysine/Water (Vancocin) 1,500 mg in 300 mls @ 200 mls/hr IV Q48H [facility] Last Infusion: 12/25/20 16:07 Dose: Infused Documented by: Dextrose (D5w) 500 mls @ 100 mls/hr IV ONCE PRN; Protocol PRN Reason: Adult Acute Hypoglycemia Prot Sodium Chloride (Sodium Chloride 0.9%) 1,000 mls @ 0 mls/hr IV .Q0M PRN PRN Reason: hypotension or symptomatic Insulin Aspart (Insulin Aspart 100 Unit/1 Ml) 0 unit SUBCUT WM&BEDTIME [facility]; Protocol Last Admin: 12/26/20 21:11 Dose: Not Given Documented by: Lactulose (Lactulose Oral Liq 20 Gm/30 Ml Udc) 10 gm PO DAILY PRN PRN Reason: CONSTIPA Levothyroxine Sodium (Levothyroxine 75 Mcg Tablet) 150 mcg PO DAILY@0600 [facility] Last Admin: 12/27/20 05:46 Dose: 150 mcg Documented by: Ondansetron HCl (Ondansetron 2 Mg/Ml Sdv 2 Ml) 4 mg IVP Q8H PRN PRN Reason: vomiting, or N/V if npo Last Admin: 12/27/20 02:12 Dose: 4 mg Documented by: Promethazine HCl (Promethazine 25 Mg Tablet) 25 mg PO Q6H PRN PRN Reason: NAUSEA/VOMITING Last Admin: 12/26/20 17:51 Dose: 25 mg Documented by: Vitals/I&O/Wt Last Vital Signs Temp 96.9 F L 12/27/20 04:00 Pulse 82 12/27/20 04:00 Resp 19 H 12/27/20 05:57 BP 145/72 12/27/20 04:00 Pulse Ox 97 12/27/20 04:00 12/26/20 12/27/20 12/27/20 22:59 06:59 14:59 Intake Total 845 / 2088 1170 / 3258 Output Total 0 / 2200 Balance 845 / -112 1170 / 1058 Weight last 48 hrs Weight 107.683 kg Weight 113.852 kg Weight 117.027 kg Physical Exam Narrative: EXAM NARRATIVE: obese, NARD, VVSS heent- nc/at, eomi, anicteric neck supple lungs clear heart reg abd soft, nt, nd, +BS ext + b/l edema Left BKA bandaged. Rt foot ulcer weak legs neuro- a,a, o x 3 mood good Data : 12/27/20 01:07 12/27/20 05:30 Micro: Microbiology 12/25/20 12:20 Blood Culture - Preliminary Blood NEGATIVE TO DATE 12/25/20 12:20 Blood Culture - Preliminary Blood NEGATIVE TO DATE A&P Additional A&P Information 1. ESRD currently on hemodialysis MWF via left IJ tunneled catheter - will get routine HD today or tomorrow 2. Diabetic foot infection/Charcot joint s/p left BKA 3. Anemia, worsened postop, s/p 2 additional units pRBC tonight 4. Mild hyponatremia - m onitor w/ HD 5. Hypoalbuminemia 6. cellulitis- renal dose abx 7. DM control per medicine 8. BP stable 9. hypothyroidism on synthroid 10. hypocalcemia- corrects for hypoalbuminemia- check vit d and pth seen w/ RN- telehealth visit Attestations Medical Necessity Statement*: ESRD, DM foot ulcer, R BKA Time Spent in Patient Care: 16 - 35 minutes Coding Level of Care Code Acute General Education Professor for Gregorio Thompson
[2020-12-27] MEDS: ferrous gluconate 324 mg Tablet PO ×2 (08:54→17:36)
[2020-12-27 09:05] LABS: Mean Corpuscular Volume 94.8 fL (81-99)
[2020-12-27 10:46] LABS: Glucose Point of Care 198 mg/dL (70-110)
[2020-12-27] MEDS: promethazine 25 mg Tablet PO (11:25)
[2020-12-27] MEDS: famotidine 20 mg/2 mL INJ IVP ×2 (11:26→21:20)
--- NOTE | 2020-12-27 12:00 | PM.CONSULT ---
Providers/Reason For Consult Consulting Physican/Specialty*: Curtis Santana D.P.M. Reason for Consult*: Right heel ulcer Attending Physician: Angel Baez MD Primary Care Provider: Karen Bear MD History of Present Illness History of Present Illness Alesia Shaw is a 60 year old female with bilateral foot and ankle Charcot arthropathy. Status post left below-knee amputation. I saw her in clinic 12/24/2020 and directed her to the emergency department for admission and surgical intervention. She is in positive spirits, has a lot of support with her who also assists in transfers and daily medical care. Unfortunately patient has gross instability at her right ankle secondary to Charcot, she also has a wound at the plantar heel. I was consulted to manage the wound at her right heel during this hospitalization. Review of Systems General: Reports: 10 or more systems reviewed and unremarkable except in HPI and below Const: Denies: fever(s) or chills Card: Denies: chest pain or palpitations Resp: Denies: productive cough GI: Denies: abdominal pain, nausea or vomiting : Denies: flank pain Musc: Reports: extremity swelling, joint pain, joint stiffness, limited range of motion and deformity Skin/Breast: Reports: sores, nail changes and change in hair; Denies: rash Neuro: Reports: numbness in extremities, sensory changes and difficulty walking Psych: Denies: suicidal ideation Jimmy/Lymph: Denies: easy bruising Meds/Allergies Home Medications and Allergies Home Medications Medication Instructions Recorded Confirmed Last Taken Type carvedilol 25 mg PO DAILY@0600 06/27/20 12/25/20 12/25/20 History insulin human U-100 NPH-regulr See Rx Instructions .ROUTE 07/23/20 12/25/20 11/22/20 Rx 70-30 mix 100 unit/mL subcutaneous .COMPLEX #10 ml susp insulin syringe-needle U-100 1 mL #100 ea 10/09/20 12/25/20 Unknown Rx 30 gauge x 1/2 Synthroid 150 mcg PO DAILY@0600 12/25/20 12/25/20 12/25/20 History linezolid 600 mg PO BID@0600,1800 12/25/20 12/25/20 12/25/20 History promethazine 25 mg PO Q6H PRN 12/25/20 12/25/20 Unknown History Allergies Allergy/AdvReac Type Severity Reaction Status Date / Time Iodinated Contrast Media Allergy ALGY-Hives Verified 12/25/20 11:08 Current Medications Current Medications Generic Name Dose Route Start Last Admin Trade Name Freq PRN Reason Stop Dose Admin Hydrocodone Bitart/Acetaminophen 1 tab 12/25/20 15:49 12/27/20 11:25 Hydrocodone-Acetaminophen 5-325 Mg Tablet PO 1 tab Q8H PRN Administration MODERATE TO SEVERE PAIN Carvedilol 25 mg 12/26/20 06:00 12/26/20 05:50 Carvedilol 25 Mg Tablet PO 25 mg DAILY@0600 [facility] Administration Famotidine 20 mg 12/25/20 15:49 12/27/20 11:26 Famotidine 20 Mg/2 Ml Inj IVP 20 mg Q12H [facility] Administration Ferrous Gluconate 324 mg 12/25/20 18:00 12/27/20 08:54 Ferrous Gluconate 324 Mg Tablet PO 324 mg BIDWM [facility] Administration Hydromorphone HCl 0.5 - 1 mg 12/26/20 14:15 12/27/20 05:57 Hydromorphone 1 Mg/Ml Inj 1 Ml IVP 1 mg Q3H PRN Administration Pain not managed by oral agent Piperacillin Sod/Tazobactam 50 mls @ 12.5 mls/hr 12/25/20 15:00 12/27/20 06:59 Sod 3.375 gm/ Sodium Chloride IV Infused Q12H [facility] Infusion Protocol Vancomycin/PEG/NADA/Lysine/Water 1,500 mg in 300 mls @ 200 mls/hr 12/25/20 15:00 12/25/20 16:07 Vancocin IV Infused Q48H [facility] Infusion Insulin Aspart 0 unit 12/25/20 18:00 12/27/20 11:26 Insulin Aspart 100 Unit/1 Ml SUBCUT 4 unit WM&BEDTIME [facility] Administration Protocol Levothyroxine Sodium 150 mcg 12/26/20 06:00 12/27/20 05:46 Levothyroxine 75 Mcg Tablet PO 150 mcg DAILY@0600 [facility] Administration Ondansetron HCl 4 mg 12/25/20 15:49 12/27/20 02:12 Ondansetron 2 Mg/Ml Sdv 2 Ml IVP 4 mg Q8H PRN Administration vomiting, or N/V if npo Promethazine HCl 25 mg 12/25/20 15:49 12/27/20 11:25 Promethazine 25 Mg Tablet PO 25 mg Q6H PRN Administration NAUSEA/VOMITING PFSH Acute PFSH: Medical History Acute bronchitis Anemia Aortic valve endocarditis Atypical chest pain Bacteremia due to Staphylococcus EKG done this morning revealed normal sinus rhythm with a left axis deviation. Voltage area for LVH. No significant ST-T changes. Congestive heart failure Diabetes Diabetes mellitus type 2, insulin-dependent Dyspnea on exertion Elevated troponin I level ESRD (end stage renal disease) History of colon polyps History of congestive heart failure History of MRSA infection Hyperlipidemia Hypertension Hypothyroidism Infectious endocarditis MSSA (methicillin susceptible Staphylococcus aureus) Recent transesophageal echo rule out infective endocarditis, MRI of spine rule out epidural abscess, Status post IV cefazolin course finished on 06/02 Protein-energy malnutrition SOB (shortness of breath) Surgical History Central vascular catheter in place upon arrival History of cholecystectomy History of lumbar surgery Due to epidural abscess in March 2018 Peritoneal dialysis catheter in place Family History Mother Cancer Uterine and breast cancer Father Diabetes Other CAD (coronary artery disease) Social History Smoking and tobacco status: never smoked Alcohol intake: current Alcohol intake frequency: holidays/special occasions only Female Reproductive History: Date of last menstrual period: 05/28/14 Vitals/I&O/Wt Last Vital Signs Temp 98.1 F 12/27/20 11:26 Pulse 89 12/27/20 11:26 Resp 18 12/27/20 11:26 BP 147/65 12/27/20 11:26 Pulse Ox 100 12/27/20 11:26 12/26/20 12/27/20 12/27/20 22:59 06:59 14:59 Intake Total 845 / 2088 1170 / 3258 340 / 340 Output Total 0 / 2200 Balance 845 / -112 1170 / 1058 340 / 340 Weight last 48 hrs Weight 237 lb 6.4 oz Weight 251 lb Physical Exam Narrative: EXAM NARRATIVE: GENERAL: Patient is alert and oriented ?3 and in no acute distress. The following is a focused right lower extremity exam. Patient's is present. VASCULAR: Dorsalis pedis nonpalpable, posterior tibial artery nonpalpable likely secondary to edema. Capillary refill time less than 3 seconds to the distal hallux bilaterally. Calf is supple and nontender proximally and distally. Pitting edema to the lower extremity. NEUROLOGICAL: Protective sensation intact 0/10 sites, tested with [place] monofilament to bilateral feet. DERMATOLOGICAL: Wound at the right plantar heel measures 9.5 cm x 10.5 cm x 0.3 cm with fibrous devitalized base predebridement. Post debridement wound does not probe directly to bone that was exposed to fat layer. There is no purulent drainage from the wound. Wound does have foul odor, no periwound erythema or proximal lymphangitic streaking noted. No tunneling or undermining. Lower extremity integument is indurated. MUSCULOSKELETAL: Hypermobility at the right ankle and foot. Patient's right foot is not plantar great due to the extent of instability at her ankle and rear foot. Muscle strength is 5 out of 5 in all 3 cardinal planes. No pain with debridement secondary to neuropathy. 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 Shaw is a pleasant 60-year-old diabetic female with history of end-stage renal failure, bilateral Charcot arthropathy and recently status post left below-knee amputation. Bunch grade 2 ulceration to the right plantar heel, performed sharp debridement excisional nature utilizing pickups and a #10 blade down to fat layer. Unable to probe to bone, no purulence. Right heel wound is clinically stable, x-ray 12/24/2020 is negative for obvious osteomyelitis or soft tissue emphysema, given underlying Charcot osteomyelitis is unable to be ruled out. At this point efforts are being made to preserve the right lower extremity as she is status post below-knee amputation date of operation 12/26/2020, preserving her right foot given her levels of activity which are essentially just for transfers would allow her to transfer more efficiently. Ultimately she will likely require a below-knee amputation of the right lower extremity down the road but at this time will focus on local wound care and bracing options to help stabilize her right ankle to prevent further collapse and even open fracture which she is at risk of due to the instability. Following debridement performed wound care dressing consisting of silver alginate, sterile 4 x 4's and Kerlix. Applied a extra-large cam boot to the right lower extremity for the time being and will contact [employer] for Charcot restraint orthotic walker in efforts to allow her to utilize her right leg for transfers. Recommend wound care follow-up for her right heel ulcer after this hospitalization, she is currently established and was actively being treated at wound care prior to admission. 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
[2020-12-27] MEDS: vancomycin 1,500 MG/300 ML PIGGYBACK 200 MG IV (14:01)
--- NOTE | 2020-12-27 14:03 | P.PN_ITS ---
Subjective Subjective: Interval history: Last 24 hours patient underwent BKA. Patient had estimated blood loss for 2200 cc. Patient received 2 units of FFP, 1 unit of PRBC intraoperatively and 2 units postoperatively on the floor. No acute events overnight. Patient has remained hemodynamically stable. On examination sitting comfortably in bed having her lunch. Denies any nausea, vomiting, headache. In good spirits. Worked well with physical therapy. Has boot on right foot. Vitals/I&O/Wt Last Vital Signs Temp 98.1 F 12/27/20 11:26 Pulse 89 12/27/20 11:26 Resp 18 12/27/20 11:26 BP 147/65 12/27/20 11:26 Pulse Ox 100 12/27/20 11:26 12/26/20 12/27/20 12/27/20 22:59 06:59 14:59 Intake Total 845 / 2088 1170 / 3258 340 / 340 Output Total 0 / 2200 Balance 845 / -112 1170 / 1058 340 / 340 Weight last 48 hrs Weight 107.683 kg Weight 113.852 kg Physical Exam Narrative: EXAM NARRATIVE: General: No acute distress, AO x3 morbid obesity HEENT: PERRLA, pupils bilaterally equal and reactive Chest: Normal vesicular breath sounds, no added sounds, equal good air entry bilaterally CVS: S1-S2 regular, no murmurs, no tachycardia, no gallops, no rubs Abdomen: Soft, nontender, no organomegaly, bowel sounds present Neuro: No focal deficits, no facial deformity, AO x3, power 5/5 in all limbs Extremities: Bilateral dorsalis pedis and posterior tibialis artery nonpalpable secondary to edema, capillary refill less than 3 seconds. Wound at the left medial malleolus probes to bone with serous sanguinous drainage and localized erythema no proximal lymphangitic streaking. Indurated skin at lower extremities. Wound at the left plantar heel with eschar No underlying fluctuance or purulent drainage. Wound at the right plantar heel also with eschar, no underlying fluctuance. Data : 12/27/20 05:30 12/27/20 05:30 Micro: Microbiology 12/25/20 12:20 Blood Culture - Preliminary Blood NEGATIVE TO DATE 12/25/20 12:20 Blood Culture - Preliminary Blood NEGATIVE TO DATE A&P Assessment and plan (1) Cellulitis and abscess of lower extremity: Status: Acute (2) Diabetic ulcer of foot associated with diabetes mellitus due to underlying condition, limited to breakdown of skin: Status: Acute (3) Charcot's joint of foot in type 2 diabetes mellitus: Status: Acute (4) Anemia: Status: Acute Qualifiers: Anemia type: unspecified type Qualified Code(s): D64.9 - Anemia, unspecified (5) ESRD (end stage renal disease): Status: Acute (6) History of congestive heart failure: Status: Acute (7) Diabetes: Status: Acute Qualifiers: Diabetes mellitus termite helper insulin use: with termite helper use Diabetes mellitus type: type 2 (8) History of MRSA infection: Status: Acute (9) Lymphedema of both lower extremities: Status: Acute Additional A&P Information Bilateral Charcot's foot interval diabetes mellitus with cellulitis and abscess of lower extremities: Post left BKA by Dr. Tobar yesterday. Postoperative day 1. Continue patient on vancomycin and Zosyn as per culture results. We will follow-up blood culture and urine culture results. Patient has previous history of Enterococcus faecalis and MRSA growing from her wound in the past. For now cover for both. Most likely patient would not require antibiotics post BKA until her blood cultures come back positive. NHAN results awaited. Will consult Dr. Santana for possible debridement of wound on right heel and wound care suggestions. End-stage renal disease on hemodialysis: Hemodialysis session Monday, Monday, Monday. Appreciate nephrology consultation. No metabolic acidosis letter abnormality at present. Anemia: Post 3 units blood transfusion yesterday evening for acute blood loss anemia on chronic anemia. Chronic anemia most likely anemia of chronic disease not responding to erythropoietin and requiring multiple transfusions. Patient has followed up with Dr. Goel in the past for the same. Cannot rule out multiple myeloma versus myelodysplastic syndrome. Patient is awaiting bone marrow biopsy. Iron panel, ferritin levels appreciated. Hemoglobin back to baseline now. We will continue to monitor daily. Type 2 diabetes mellitus: HbA1c 4.9. Change insulin sliding scale to low-dose protocol. Carb consistent diet. History of congestive heart failure: Last echocardiogram done in 2019 shows an EF of 55% with no R WMA and mild TR. No exacerbation at present. Monitor strict input output. Daily weights. Hypertension: Goal blood pressure less than 140/90 mmHg keeping mean over 65. Continue home dose of carvedilol for now. Continue other chronic medications including Synthroid. Check iron panel, ferritin, reticulocyte count, vitamin B12, folate level, TSH. Full code. Renal dialysis carb consistent diet. DVT prophylaxis: We will hold off on starting pharmacological DVT prophylaxis because of possible procedure tomorrow along with chronic anemia. Cannot do SCDs or foot pumps because of extensive lymphedema and open wounds. Famotidine for PUD prophylaxis. Discharge planning: Most likely discharge in next 24 hours if patient continues to do well with PT and OT. Plan for discharge to home for now. Attestations Medical Necessity Statement*: Patient requires further hospitalization for postoperative management of left BKA for bilateral Charcot's foot disease with cellulitis and abscess of lower extremities in setting of diabetes mellitus Time Spent in Patient Care: Greater than 35 minutes (>than 50% of time spent in counselling and/or direct pt care on unit) . Coding Level of Care Code Acute Sign Fabricator for [facility] Diagnoses Cellulitis and abscess of lower extremity L03.119; L02.419 Diabetic ulcer of foot associated with diabetes mellitus due to underlying condition, limited to breakdown of skin E08.621; L97.501 Charcot's joint of foot in type 2 diabetes mellitus E11.610 Anemia D64.9 Anemia type: unspecified type ESRD (end stage renal disease) N18.6 History of congestive heart failure Z86.79 Diabetes E11.9 Diabetes mellitus termite helper insulin use: with senior care use Diabetes mellitus type: type 2 History of MRSA infection Z86.14 Lymphedema of both lower extremities I89.0
[2020-12-27 15:11] LABS: Bilirubin Urine Neg (Negative); Blood Urine 2+ (Negative); Glucose Urine UA 2+ (Normal); Ketones Urine 1+ (Negative); Nitrate Urine Negative (Negative); Protein Urine 3+ (Negative); Specific Gravity, Urine 1.015 (1.005-1.030); Urine Appearance Turbid (CLEAR); Urine Color Yellow (Yellow); pH Urine 9 (5-7)
[2020-12-27 15:12] LABS: Leukocyte Esterase Urine Negative (Negative); Urobilinogen Urine Norm (Negative)
[2020-12-27 15:31] LABS: Sulfosalicylic Acid Urine Positive (Negative)
[2020-12-27 15:33] LABS: Bacteria Urine 2+ /hpf; Mucus Urine 4+ /hpf; Squamous Epithelial Cell Urine 15-25 /hpf (0-5)
[2020-12-27 15:34] LABS: Add Urine Culture? No
[2020-12-27 16:45] LABS: Potassium, Radom Urine 58 mmol/L; Urine Random Chloride 27 mmol/L; Urine Random Sodium 45 mmol/L
[2020-12-27 17:14] LABS: Glucose Point of Care 145 mg/dL (70-110)
--- NOTE | 2020-12-27 19:32 | PM.PN ---
Subjective Subjective: Interval history: Patient doing quite well in good spirits. Pain tolerable with Vitals/I&O/Wt Last Vital Signs Temp 99.4 F 12/27/20 15:46 Pulse 83 12/27/20 15:46 Resp 18 12/27/20 15:46 BP 101/58 12/27/20 15:46 Pulse Ox 100 12/27/20 11:26 12/27/20 12/27/20 12/27/20 06:59 14:59 22:59 Intake Total 1170 / 3258 660 / 660 780 / 1440 Output Total 200 / 200 Balance 1170 / 1058 460 / 460 780 / 1240 Weight last 48 hrs Weight 237 lb 6.4 oz Weight 251 lb Physical Exam Narrative: EXAM NARRATIVE: medications right bloody drainage left below-knee amputation Data : 12/27/20 05:30 12/27/20 05:30 A&P Assessment and plan (1) Status post below-knee amputation of left lower extremity: Continue to mobilize with therapy. Patient and very familiar with wheelchair and transfers and hopefully she can go home soon. I discussed the patient's soft tissue envelope. There certainly is some concern that this may not heal and the patient seems to understand that but is grateful with the effort to save much of her leg as possible. Status: Acute (2) Anemia: Patient with chronic anemia with superimposed acute component due to operative blood loss. Hemoglobin improved posttransfusion. Status: Acute Qualifiers: Anemia type: unspecified type Qualified Code(s): D64.9 - Anemia, unspecified Attestations Medical Necessity Statement*: As per medicine Coding Level of Care Code Acute Cosmetic Manager for [facility] Diagnoses Status post below-knee amputation of left lower extremity Z89.512 Anemia D64.9 Anemia type: unspecified type
[2020-12-27 20:33] LABS: Glucose Point of Care 162 mg/dL (70-110)
[2020-12-28] VITALS (9 sets, daily range): BP systolic 114–149; BP diastolic 51–75; PULSE 80–93; RESP 17–18; TEMP 36.4–37.8; O2SAT 94–100
[2020-12-28] MEDS: HYDROmorphone 1 mg/mL INJ 1 mL IVP ×2 (01:07→15:54)
[2020-12-28] MEDS: piperacillin-tazobactam 3.375 GM in sodium chloride 0.9% (plus) 50 ML IV (02:44)
[2020-12-28] MEDS: levothyroxine 75 mcg Tablet 150 MCG PO (05:55)
[2020-12-28 06:02] LABS: Calcium 6.8 mg/dL (8.5-10.5); Parathyroid Hormone 185.7 pg/mL (15-65)
[2020-12-28 06:29] LABS: 25 Hydroxy Vitamin D 23 ng/mL (30-100); Alanine Aminotransferase 6 U/L (0-33); Albumin Level 2.1 g/dL (3.5-5.2); Alkaline Phosphatase 92 IU/L (35-105); Aspartate Amino Transferase 13 U/L (0-32); Blood Urea Nitrogen 18 mg/dL (6-20); Carbon Dioxide 22 mmol/L (22-29); Chloride 101 mmol/L (98-107); Globulin 3.5 g/dL (1.3-4.6); Glomerular Filtration Rate 10.3 mL/min (90-130); Glucose 88 mg/dL (65-115); Magnesium 1.9 mg/dL (1.7-2.3); Osmolality Calculated 279 mOsm/kg (285-295); Phosphorus 3.8 mg/dL (2.5-4.5); Sodium 134 mmol/L (136-145); Total Bilirubin 0.4 mg/dL (0.15-1.2); Total Protein 5.6 g/dL (6.6-8.7)
[2020-12-28 06:35] LABS: Glucose Point of Care 97 mg/dL (70-110)
[2020-12-28 06:38] LABS: Anion Gap 15.4 (5-19); Potassium 4.4 mmol/L (3.5-5.1)
--- NOTE | 2020-12-28 06:41 | PM.PN ---
Subjective Subjective: Interval history: feels better. leg stable, still w/ edema Medications: Reviewed: Yes Medication Review Details: Current Medications Acetaminophen (Acetaminophen 325 Mg Tablet) 650 mg PO Q6H PRN PRN Reason: Mild/Mod Pain Or Temp >/= 101 Hydrocodone Bitart/Acetaminophen (Hydrocodone-Acetaminophen 5-325 Mg Tablet) 1 tab PO Q8H PRN PRN Reason: MODERATE TO SEVERE PAIN Last Admin: 12/27/20 20:51 Dose: 1 tab Documented by: Bisacodyl (Bisacodyl 5 Mg Tablet) 10 mg PO DAILY PRN PRN Reason: CONSTIPATION Carvedilol (Carvedilol 25 Mg Tablet) 25 mg PO DAILY@0600 [facility] Last Admin: 12/26/20 05:50 Dose: 25 mg Documented by: Dextrose (Dextrose 50% Syringe 50 Ml) 25 ml IVP ONCE PRN; Protocol PRN Reason: hypoglycemia protocol Dextrose (Dextrose 50% Syringe 50 Ml) 50 ml IVP PRN PRN; Protocol PRN Reason: hypoglycemia protocol Famotidine (Famotidine 20 Mg/2 Ml Inj) 20 mg IVP Q12H [facility] Last Admin: 12/27/20 21:20 Dose: 20 mg Documented by: Ferrous Gluconate (Ferrous Gluconate 324 Mg Tablet) 324 mg PO BIDWM [facility] Last Admin: 12/27/20 17:36 Dose: 324 mg Documented by: Glucagon (Glucagon 1 Mg/Ml Inj 1 Ml) 1 mg IM ONCE PRN; Protocol PRN Reason: Adult Acute Hypoglycemia Prot. Hydromorphone HCl (Hydromorphone 1 Mg/Ml Inj 1 Ml) 0.5 - 1 mg IVP Q3H PRN PRN Reason: Pain not managed by oral agent Last Admin: 12/28/20 01:07 Dose: 1 mg Documented by: Piperacillin Sod/Tazobactam (Sod 3.375 gm/ Sodium Chloride) 50 mls @ 12.5 mls/hr IV Q12H [facility]; Protocol Last Admin: 12/28/20 02:44 Dose: 12.5 mls/hr Documented by: Vancomycin/PEG/NADA/Lysine/Water (Vancocin) 1,500 mg in 300 mls @ 200 mls/hr IV Q48H [facility] Last Infusion: 12/27/20 15:40 Dose: Infused Documented by: Dextrose (D5w) 500 mls @ 100 mls/hr IV ONCE PRN; Protocol PRN Reason: Adult Acute Hypoglycemia Prot Sodium Chloride (Sodium Chloride 0.9%) 1,000 mls @ 0 mls/hr IV .Q0M PRN PRN Reason: hypotension or symptomatic Albumin Human (Albumin) 12.5 gm in 50 mls @ 60 mls/hr IV PRN PRN PRN Reason: Hypotension and/or symptomatic Insulin Aspart (Insulin Aspart 100 Unit/1 Ml) 0 unit SUBCUT WM&BEDTIME [facility]; Protocol Last Admin: 12/27/20 20:52 Dose: 2 unit Documented by: Lactulose (Lactulose Oral Liq 20 Gm/30 Ml Udc) 10 gm PO DAILY PRN PRN Reason: CONSTIPA Levothyroxine Sodium (Levothyroxine 75 Mcg Tablet) 150 mcg PO DAILY@0600 [facility] Last Admin: 12/28/20 05:55 Dose: 150 mcg Documented by: Ondansetron HCl (Ondansetron 2 Mg/Ml Sdv 2 Ml) 4 mg IVP Q8H PRN PRN Reason: vomiting, or N/V if npo Last Admin: 12/27/20 02:12 Dose: 4 mg Documented by: Promethazine HCl (Promethazine 25 Mg Tablet) 25 mg PO Q6H PRN PRN Reason: NAUSEA/VOMITING Last Admin: 12/27/20 11:25 Dose: 25 mg Documented by: Vitals/I&O/Wt Last Vital Signs Temp 97.9 F 12/28/20 04:00 Pulse 85 12/28/20 04:00 Resp 17 12/28/20 04:00 BP 128/69 12/28/20 04:00 Pulse Ox 96 12/28/20 04:00 12/27/20 12/27/20 12/28/20 14:59 22:59 06:59 Intake Total 660 / 660 830 / 1490 360 / 1850 Output Total 200 / 200 100 / 300 Balance 460 / 460 830 / 1290 260 / 1550 Weight last 48 hrs Weight 109.588 kg Weight 107.683 kg Physical Exam Narrative: EXAM NARRATIVE: obese, NARD, VVSS heent- nc/at, eomi, anicteric neck supple lungs clear heart reg abd soft, nt, nd, +BS ext + b/l edema Left BKA bandaged. Rt foot ulcer weak legs neuro- a,a, o x 3 mood good Data : 12/27/20 05:30 12/28/20 05:01 A&P Additional A&P Information 1. ESRD currently on hemodialysis MWF via left IJ tunneled catheter - HD now- 3.5 hrs, 3k remove 2l, 2. Diabetic foot infection/Charcot joint s/p left BKA 3. Anemia, worsened postop, s/p 3l units pRBC transfussion 4. Mild hyponatremia - monitor w/ HD 5. Hypoalbuminemia 6. cellulitis- renal dose abx 7. DM control per medicine 8. BP stable 9. hypothyroidism on synthroid 10. hypocalcemia- corrects for hypoalbuminemia- check vit d and pth= 185- good for ESRD 11. s/p debridement ot ft heel seen w/ RN- telehealth visit Attestations Medical Necessity Statement*: per medicine Time Spent in Patient Care: 16 - 35 minutes Coding Level of Care Code Acute Latcher for [facility]
--- NOTE | 2020-12-28 06:46 | PC.NURSE ---
Patient taken to Dialysis.
--- NOTE | 2020-12-28 07:29 | PC.NURSE ---
Patient in dialysis at shift change
--- NOTE | 2020-12-28 08:34 | PC.SOCIAL ---
IMM Update Pg. 2 of IMM updated. Initialed, dated, and timed. Copy provided to patient.
[2020-12-28] MEDS: ferrous gluconate 324 mg Tablet PO ×2 (11:03→17:30)
[2020-12-28] MEDS: famotidine 20 mg/2 mL INJ IVP ×2 (11:03→21:55)
--- NOTE | 2020-12-28 12:18 | P.PN_ITS ---
Subjective Subjective: Interval history: No acute events overnight. Denies any nausea, vomiting, headache. Patient doing good mood. Underwent scheduled hemodialysis today. Denies any nausea vomiting, headache. Has remained afebrile and hemodynamically stable overnight. Requesting to be discharged tomorrow due to bad weather. States he does not have any transportation to her home, no water at her home. Vitals/I&O/Wt Last Vital Signs Temp 98.8 F 12/28/20 08:00 Pulse 82 12/28/20 09:29 Resp 18 12/28/20 08:00 BP 149/72 12/28/20 08:00 Pulse Ox 100 12/28/20 08:00 12/27/20 12/28/20 12/28/20 22:59 06:59 14:59 Intake Total 830 / 1490 410 / 1900 Output Total 100 / 300 Balance 830 / 1290 310 / 1600 Weight last 48 hrs Weight 109.588 kg Weight 107.683 kg Physical Exam Narrative: EXAM NARRATIVE: General: No acute distress, AO x3 morbid obesity HEENT: PERRLA, pupils bilaterally equal and reactive Chest: Normal vesicular breath sounds, no added sounds, equal good air entry bilaterally CVS: S1-S2 regular, no murmurs, no tachycardia, no gallops, no rubs Abdomen: Soft, nontender, no organomegaly, bowel sounds present Neuro: No focal deficits, no facial deformity, AO x3, power 5/5 in all limbs Extremities: Bilateral dorsalis pedis and posterior tibialis artery nonpalpable secondary to edema, capillary refill less than 3 seconds. Wound at the left medial malleolus probes to bone with serous sanguinous drainage and localized erythema no proximal lymphangitic streaking. Indurated skin at lower extremities. Wound at the left plantar heel with eschar No underlying fluctuance or purulent drainage. Wound at the right plantar heel also with eschar, no underlying fluctuance. Data : 12/27/20 05:30 12/28/20 05:01 A&P Assessment and plan (1) Cellulitis and abscess of lower extremity: Status: Acute (2) Diabetic ulcer of foot associated with diabetes mellitus due to underlying condition, limited to breakdown of skin: Status: Acute (3) Charcot's joint of foot in type 2 diabetes mellitus: Status: Acute (4) Anemia: Status: Acute Qualifiers: Anemia type: unspecified type Qualified Code(s): D64.9 - Anemia, unspecified (5) ESRD (end stage renal disease): Status: Acute (6) History of congestive heart failure: Status: Acute (7) Diabetes: Status: Acute Qualifiers: Diabetes mellitus skilled nursing insulin use: with skilled nursing use Diabetes mellitus type: type 2 (8) History of MRSA infection: Status: Acute (9) Lymphedema of both lower extremities: Status: Acute Additional A&P Information Bilateral Charcot's foot interval diabetes mellitus with cellulitis and abscess of lower extremities: Post left BKA by Dr. Tobar yesterday. Postoperative day 2 Switch antibiotics to linezolid as per the most recent culture results of Enterococcus from right knee wound earlier this year. Dressing as per Dr. Santana. End-stage renal disease on hemodialysis: Hemodialysis session Monday, Monday, Monday. Appreciate nephrology consultation. No metabolic acidosis letter abnormality at present. Anemia: Hemoglobin stable at baseline now. Post 3 units blood transfusion yesterday evening for acute blood loss anemia on chronic anemia. Chronic anemia most likely anemia of chronic disease not responding to erythropoietin and requiring multiple transfusions. Patient has followed up with Dr. Goel in the past for the same. Cannot rule out multiple myeloma versus myelodysplastic syndrome. Patient is awaiting bone marrow biopsy. Iron panel, ferritin levels appreciated. Type 2 diabetes mellitus: HbA1c 4.9. Change insulin sliding scale to low-dose protocol. Carb consistent diet. History of congestive heart failure: Last echocardiogram done in 2019 shows an EF of 55% with no R WMA and mild TR. No exacerbation at present. Monitor strict input output. Daily weights. Hypertension: Goal blood pressure less than 140/90 mmHg keeping mean over 65. Continue home dose of carvedilol for now. Continue other chronic medications including Synthroid. Check iron panel, ferritin, reticulocyte count, vitamin B12, folate level, TSH. Full code. Renal dialysis carb consistent diet. DVT prophylaxis: We will hold off on starting pharmacological DVT prophylaxis because of possible procedure tomorrow along with chronic anemia. Cannot do SCDs or foot pumps because of extensive lymphedema and open wounds. Famotidine for PUD prophylaxis. Discharge planning: Most likely discharge in next 24 hours if patient continues to do well with PT and OT. Plan for discharge to home for now. Attestations Medical Necessity Statement*: Requires further hospitalization for postoperative care for left BKA, right Charcot's foot with cellulitis and ulcer, ESRD on hemodialysis session today while safe discharge planning is sought Time Spent in Patient Care: Greater than 35 minutes (>than 50% of time spent in counselling and/or direct pt care on unit) . Coding Level of Care Code Acute Clerical Manager for [facility] Diagnoses Cellulitis and abscess of lower extremity L03.119; L02.419 Diabetic ulcer of foot associated with diabetes mellitus due to underlying condition, limited to breakdown of skin E08.621; L97.501 Charcot's joint of foot in type 2 diabetes mellitus E11.610 Anemia D64.9 Anemia type: unspecified type ESRD (end stage renal disease) N18.6 History of congestive heart failure Z86.79 Diabetes E11.9 Diabetes mellitus skilled nursing insulin use: with interviewing clerk use Diabetes mellitus type: type 2 History of MRSA infection Z86.14 Lymphedema of both lower extremities I89.0
[2020-12-28 12:27] LABS: Glucose Point of Care 128 mg/dL (70-110)
[2020-12-28] MEDS: HYDROcodone-acetaminophen 5-325 mg Tablet 1 TAB PO (12:39)
--- NOTE | 2020-12-28 14:13 | PC.NURSE ---
Notified Dr Baez 260 I just noticed that she has an order for MRSA swab nose. It was ordered on the . Just checking to see if you still want that since she was going to go home today? Just asking Read 12/28/20, 14:[address] Baez, No let it be 12/28/20, 14:07
[2020-12-28] MEDS: promethazine 25 mg Tablet PO (15:54)
[2020-12-28 17:22] LABS: Glucose Point of Care 157 mg/dL (70-110)
[2020-12-28] MEDS: linezolid 600 mg Tablet PO (17:30)
--- NOTE | 2020-12-28 18:22 | P.PN_ITS ---
Subjective Subjective: Interval history: Pain controlled with oral meds Vitals/I&O/Wt Last Vital Signs Temp 99.5 F 12/28/20 16:00 Pulse 89 12/28/20 16:00 Resp 18 12/28/20 16:00 BP 127/64 12/28/20 16:00 Pulse Ox 95 12/28/20 16:00 12/28/20 12/28/20 12/28/20 06:59 14:59 22:59 Intake Total 410 / 1900 240 / 240 360 / 600 Output Total 100 / 300 Balance 310 / 1600 240 / 240 360 / 600 Weight last 48 hrs Weight 241 lb 9.6 oz Weight 237 lb 6.4 oz Physical Exam Narrative: EXAM NARRATIVE: Slight staining left below-knee amputation dressing Data : 12/27/20 05:30 12/28/20 05:01 A&P Assessment and plan (1) Status post below-knee amputation of left lower extremity: Continue to mobilize with therapy. Dressing change in a.m. Status: Acute Attestations Medical Necessity Statement*: Discharge home when arrangements can be made at home. Fortunately very supportive Coding Level of Care Code Acute Cocoa Bean Cleaner for [facility] Diagnoses Status post below-knee amputation of left lower extremity Z89.512
[2020-12-28 21:27] LABS: Glucose Point of Care 185 mg/dL (70-110)
[2020-12-29] VITALS (7 sets, daily range): BP systolic 129–151; BP diastolic 68–75; PULSE 81–94; RESP 16–18; TEMP 36.8–37.1; O2SAT 96–99
[2020-12-29] MEDS: HYDROcodone-acetaminophen 5-325 mg Tablet 1 TAB PO ×3 (00:45→20:42)
[2020-12-29 03:05] LABS: Basophils # 0.1 10^3/uL (0.0-0.1); Basophils % 0.7 %; Eosinophils # 0.8 10^3/uL (0.0-0.8); Eosinophils % 8.1 %; Hematocrit 23.5 % (37.0-47.0); Hemoglobin 7.5 g/dL (11.5-15.3); Lymphocytes # 1.8 10^3/uL (0.8-4.8); Lymphocytes % 17.9 %; Mean Corpuscular HGB Conc 31.9 g/dL (30.0-36.0); Mean Corpuscular Hemoglobin 31.8 pg (28.0-34.0); Mean Corpuscular Volume 99.6 fL (81-99); Mean Platelet Volume 9.3 fL (7.4-10.4); Monocytes # 1.4 10^3/uL (0.2-0.9); Monocytes % 13.5 %; Neutrophils # 5.99 10^3/uL (1.8-7.7); Neutrophils % 59.2 %; Nucleated Red Blood Cells % 0 %; Platelet Count 238 10^3/cmm (130-400); Red Blood Count 2.36 10^6/uL (4.1-5.3); Red Cell Distribution Width 16.2 % (12.1-15.1); White Blood Count 10.1 10^3/uL (4.0-10.0)
[2020-12-29 03:21] LABS: Alanine Aminotransferase 7 U/L (0-33); Albumin Level 2.2 g/dL (3.5-5.2); Alkaline Phosphatase 111 IU/L (35-105); Anion Gap 10.9 (5-19); Aspartate Amino Transferase 13 U/L (0-32); Blood Urea Nitrogen 13 mg/dL (6-20); Calcium 7.1 mg/dL (8.5-10.5); Carbon Dioxide 27 mmol/L (22-29); Chloride 98 mmol/L (98-107); Globulin 3.8 g/dL (1.3-4.6); Glomerular Filtration Rate 12.6 mL/min (90-130); Glucose 116 mg/dL (65-115); Magnesium 1.8 mg/dL (1.7-2.3); Osmolality Calculated 275 mOsm/kg (285-295); Phosphorus 3.2 mg/dL (2.5-4.5); Potassium 3.9 mmol/L (3.5-5.1); Sodium 132 mmol/L (136-145); Total Bilirubin 0.3 mg/dL (0.15-1.2)
[2020-12-29] MEDS: levothyroxine 75 mcg Tablet 150 MCG PO (06:21)
[2020-12-29] MEDS: linezolid 600 mg Tablet PO ×2 (06:22→17:43)
[2020-12-29 07:07] LABS: Glucose Point of Care 101 mg/dL (70-110)
[2020-12-29] MEDS: ferrous gluconate 324 mg Tablet PO ×2 (07:37→17:43)
--- NOTE | 2020-12-29 07:41 | PM.PN ---
Subjective Subjective: Interval history: seen and examined w/ RN. feels well. Rt leg in brace, left leg bandaged. no n/v/f/c/kearney/d/sob. Medications: Reviewed: Yes Medication Review Details: Current Medications Acetaminophen (Acetaminophen 325 Mg Tablet) 650 mg PO Q6H PRN PRN Reason: Mild/Mod Pain Or Temp >/= 101 Hydrocodone Bitart/Acetaminophen (Hydrocodone-Acetaminophen 5-325 Mg Tablet) 1 tab PO Q8H PRN PRN Reason: MODERATE TO SEVERE PAIN Last Admin: 12/29/20 00:45 Dose: 1 tab Documented by: Bisacodyl (Bisacodyl 5 Mg Tablet) 10 mg PO DAILY PRN PRN Reason: CONSTIPATION Carvedilol (Carvedilol 6.25 Mg Tablet) 6.25 mg PO 0900,2100 [facility] Dextrose (Dextrose 50% Syringe 50 Ml) 25 ml IVP ONCE PRN; Protocol PRN Reason: hypoglycemia protocol Dextrose (Dextrose 50% Syringe 50 Ml) 50 ml IVP PRN PRN; Protocol PRN Reason: hypoglycemia protocol Famotidine (Famotidine 20 Mg/2 Ml Inj) 20 mg IVP Q12H [facility] Last Admin: 12/28/20 21:55 Dose: 20 mg Documented by: Ferrous Gluconate (Ferrous Gluconate 324 Mg Tablet) 324 mg PO BIDWM [facility] Last Admin: 12/29/20 07:37 Dose: 324 mg Documented by: Glucagon (Glucagon 1 Mg/Ml Inj 1 Ml) 1 mg IM ONCE PRN; Protocol PRN Reason: Adult Acute Hypoglycemia Prot. Hydromorphone HCl (Hydromorphone 1 Mg/Ml Inj 1 Ml) 0.5 - 1 mg IVP Q3H PRN PRN Reason: Pain not managed by oral agent Last Admin: 12/28/20 15:54 Dose: 1 mg Documented by: Dextrose (D5w) 500 mls @ 100 mls/hr IV ONCE PRN; Protocol PRN Reason: Adult Acute Hypoglycemia Prot Sodium Chloride (Sodium Chloride 0.9%) 1,000 mls @ 0 mls/hr IV .Q0M PRN PRN Reason: hypotension or symptomatic Albumin Human (Albumin) 12.5 gm in 50 mls @ 60 mls/hr IV PRN PRN PRN Reason: Hypotension and/or symptomatic Insulin Aspart (Insulin Aspart 100 Unit/1 Ml) 0 unit SUBCUT WM&BEDTIME [facility]; Protocol Last Admin: 12/29/20 07:18 Dose: Not Given Documented by: Lactulose (Lactulose Oral Liq 20 Gm/30 Ml Udc) 10 gm PO DAILY PRN PRN Reason: CONSTIPA Levothyroxine Sodium (Levothyroxine 75 Mcg Tablet) 150 mcg PO DAILY@0600 [facility] Last Admin: 12/29/20 06:21 Dose: 150 mcg Documented by: Linezolid (Linezolid 600 Mg Tablet) 600 mg PO BID@0600,1800 [facility]; Protocol Last Admin: 12/29/20 06:22 Dose: 600 mg Documented by: Ondansetron HCl (Ondansetron 2 Mg/Ml Sdv 2 Ml) 4 mg IVP Q8H PRN PRN Reason: vomiting, or N/V if npo Last Admin: 12/27/20 02:12 Dose: 4 mg Documented by: Promethazine HCl (Promethazine 25 Mg Tablet) 25 mg PO Q6H PRN PRN Reason: NAUSEA/VOMITING Last Admin: 12/28/20 15:54 Dose: 25 mg Documented by: Vitals/I&O/Wt Last Vital Signs Temp 98.8 F 12/29/20 04:00 Pulse 81 12/29/20 07:18 Resp 16 12/29/20 04:00 BP 144/69 12/29/20 04:00 Pulse Ox 96 12/29/20 04:00 12/28/20 12/29/20 12/29/20 22:59 06:59 14:59 Intake Total 360 / 600 600 / 1200 Balance 360 / 600 600 / 1200 Weight last 48 hrs Weight 109.316 kg Weight 109.588 kg Physical Exam Narrative: EXAM NARRATIVE: obese, NARD, VSS heent- nc/at, eomi, anicteric neck supple lungs clear heart reg abd soft, nt, nd, +BS ext -Left BKA bandaged. Rt leg in a boot Neuro- a,a, o x 3 skin- no rashes mood good Data : 12/29/20 02:46 12/29/20 02:46 A&P Additional A&P Information 1. ESRD currently on hemodialysis MWF via left IJ tunneled catheter - HD in am- 3.5 hrs, 3k remove 2l, 2. Diabetic foot infection/Charcot joint s/p left BKA 3. Anemia, worsened postop, s/p 3l units pRBC transfusion -give epo on HD in am. may need further prbc tx 4. Hyponatremia - monitor w/ HD 5. Hypoalbuminemia 6. cellulitis- renal dose abx 7. DM control per medicine 8. BP stable 9. hypothyroidism on synthroid 10. hypocalcemia- corrects for hypoalbuminemia- replace vit d and pth= 185- good for ESRD -phos excellent 11. s/p debridement of right heel seen w/ RN- telehealth visit Attestations Medical Necessity Statement*: per medicine. s/p BKA on left and rt foot debridement Time Spent in Patient Care: 16 - 35 minutes Coding Level of Care Code Acute Coal Unloader for [facility]
--- NOTE | 2020-12-29 08:05 | P.PN_ITS ---
Subjective Subjective: Interval history: Patient seen bedside, denies any acute events overnight. Her is present. Efforts being made for correction placement. Vitals/I&O/Wt Last Vital Signs Temp 98.8 F 12/29/20 04:00 Pulse 81 12/29/20 07:18 Resp 16 12/29/20 04:00 BP 144/69 12/29/20 04:00 Pulse Ox 96 12/29/20 04:00 12/28/20 12/29/20 12/29/20 22:59 06:59 14:59 Intake Total 360 / 600 600 / 1200 Balance 360 / 600 600 / 1200 Weight last 48 hrs Weight 241 lb Weight 241 lb 9.6 oz Physical Exam Narrative: EXAM NARRATIVE: GENERAL: Patient is alert and oriented ?3 and in no acute distress. The following is a focused right lower extremity exam. Patient's is present. VASCULAR: Dorsalis pedis nonpalpable, posterior tibial artery nonpalpable likely secondary to edema. Capillary refill time less than 3 seconds to the distal hallux bilaterally. Calf is supple and nontender proximally and distally. Pitting edema to the lower extremity. NEUROLOGICAL: Protective sensation intact 0/10 sites, tested with Earp Josefina monofilament to bilateral feet. DERMATOLOGICAL: Wound at the right plantar heel measures 9.5 cm x 10.5 cm x 0.3 cm with fibrous devitalized base predebridement. Post debridement wound does not probe directly to bone that was exposed to fat layer. There is no purulent drainage from the wound. Wound does have foul odor, no periwound erythema or proximal lymphangitic streaking noted. No tunneling or undermining. Lower extremity integument is indurated. MUSCULOSKELETAL: Hypermobility at the right ankle and foot. Patient's right foot is not plantar great due to the extent of instability at her ankle and rear foot. Muscle strength is 5 out of 5 in all 3 cardinal planes. No pain with debridement secondary to neuropathy. 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 Shaw is a pleasant 60-year-old diabetic female with history of end-stage renal failure, bilateral Charcot arthropathy and recently status post left below-knee amputation. Bunch grade 2 ulceration to the right plantar heel, wound is clinically stable, x-ray 12/24/2020 is negative for obvious osteomyelitis or soft tissue emphysema, given underlying Charcot osteomyelitis is unable to be ruled out. At this point efforts are being made to preserve the right lower extremity as she is status post below-knee amputation date of operation 12/26/2020, preserving her right f oot given her levels of activity which are essentially just for transfers would allow her to transfer more efficiently. Ultimately she will likely require a below-knee amputation of the right lower extremity down the road but at this time will focus on local wound care and bracing options to help stabilize her right ankle to prevent further collapse and even open fracture which she is at risk of due to the instability. Dressing change Betadine wet-to-dry performed by myself this morning will place order for nursing staff to change the dressing Betadine wet-to-dry twice daily. Continue offloading with cam boot. Will place order to the [facility] for [place] boot. 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
[2020-12-29] MEDS: cholecalciferol (vitamin D3) 1,000 unit Tablet 1000 UNIT PO (08:35)
[2020-12-29] MEDS: carvedilol 6.25 mg Tablet PO (08:35)
[2020-12-29] MEDS: famotidine 20 mg/2 mL INJ IVP ×2 (08:35→22:55)
[2020-12-29] MEDS: b-complex-vitamin c Tablet 1 EACH PO (08:35)
--- NOTE | 2020-12-29 08:39 | PC.NURSE ---
Dr Santana changed dressing to right heel this AM
[2020-12-29 12:00] LABS: Glucose Point of Care 123 mg/dL (70-110)
--- NOTE | 2020-12-29 13:58 | P.PN_ITS ---
Subjective Subjective: Interval history: Still with some pain but controlled with meds Vitals/I&O/Wt Last Vital Signs Temp 98.4 F 12/29/20 12:00 Pulse 83 12/29/20 12:00 Resp 18 12/29/20 12:00 BP 145/75 12/29/20 12:00 Pulse Ox 98 12/29/20 12:00 12/28/20 12/29/20 12/29/20 22:59 06:59 14:59 Intake Total 360 / 600 600 / 1200 240 / 240 Balance 360 / 600 600 / 1200 240 / 240 Weight last 48 hrs Weight 241 lb Weight 241 lb 9.6 oz Physical Exam Narrative: EXAM NARRATIVE: Below-knee amputation incision clean. Just a minimal amount of duskiness along the medial skin edges. Overall posterior flap seems very viable. Data : 12/29/20 02:46 12/29/20 02:46 A&P Assessment and plan (1) Status post below-knee amputation of left lower extremity: Alesia's wound looks at surprisingly good. Certainly with her atherosclerotic disease and poor soft tissue envelope she has a very high risk of wound healing complications but we seem to be everting that at this point. Therapy will be difficult. She is considering a [facility] transfer which may be a good idea. Status: Acute Attestations Medical Necessity Statement*: As per medicine Coding Level of Care Code Acute Benefits Assistant for Gregorio Thompson Diagnoses Status post below-knee amputation of left lower extremity Z89.512
--- NOTE | 2020-12-29 14:15 | PC.NURSE ---
Dr Tobar changed dressing to left stump.
[2020-12-29 16:54] LABS: Glucose Point of Care 159 mg/dL (70-110)
[2020-12-29] MEDS: promethazine 25 mg Tablet PO (18:13)
--- NOTE | 2020-12-29 19:30 | PM.PN ---
Subjective Subjective: Interval history: Patient is doing well. Denies any uncontrolled pain. In good spirits. Denies nausea or vomiting. No signs of bleeding. Medications: Reviewed: Yes Medication Review Details: Generic Name Dose Route Start Last Admin Trade Name Freq PRN Reason Stop Dose Admin Hydrocodone Bitart /Acetaminophen 1 tab 12/25/20 15:49 12/29/20 13:03 Hydrocodone-Acet aminophen 5-325 Mg Tablet PO 1 tab Q8H PRN Administration MODERATE TO SEVER E PAIN Carvedilol 6.25 mg 12/29/20 09:00 12/29/20 08:35 Carvedilol 6.25 Mg Tablet PO 6.25 mg 0900,2100 SHELBY Administration Famotidine 20 mg 12/25/20 15:49 12/29/20 08:35 Famotidine 20 Mg /2 Ml Inj IVP 20 mg Q12H SHELBY Administration Ferrous Gluconate 324 mg 12/25/20 18:00 12/29/20 17:43 Ferrous Gluconat e 324 Mg Tablet PO 324 mg BIDWM SHELBY Administration Hydromorphone HCl 0.5 - 1 mg 12/26/20 14:15 12/28/20 15:54 Hydromorphone 1 Mg/Ml Inj 1 Ml IVP 1 mg Q3H PRN Administration Pain not managed by oral agent Insulin Aspart 0 unit 12/25/20 18:00 12/29/20 17:43 Insulin Aspart 1 00 Unit/1 Ml SUBCUT 2 unit WM&BEDTIME SHELBY Administration Protocol Levothyroxine Sodi um 150 mcg 12/26/20 06:00 12/29/20 06:21 Levothyroxine 75 Mcg Tablet PO 150 mcg DAILY@0600 SHELBY Administration Linezolid 600 mg 12/28/20 18:00 12/29/20 17:43 Linezolid 600 Mg Tablet PO 600 mg BID@0600,1800 SHELBY Administration Protocol Multivitamins 1 each 12/29/20 09:00 12/29/20 08:35 G-Cqizmno-Aaszqr n C Tablet PO 1 each DAILY SHELBY Administration Ondansetron HCl 4 mg 12/25/20 15:49 12/27/20 02:12 Ondansetron 2 Mg /Ml Sdv 2 Ml IVP 4 mg Q8H PRN Administration vomiting, or N/V if npo Promethazine HCl 25 mg 12/25/20 15:49 12/29/20 18:13 Promethazine 25 Mg Tablet PO 25 mg Q6H PRN Administration NAUSEA/VOMITING Vitamin D 1,000 unit 12/29/20 09:00 12/29/20 08:35 Cholecalciferol (Vitamin D3) 1,000 Unit Tablet PO 1,000 unit DAILY SHELBY Administration Vitals/I&O/Wt Last Vital Signs Temp 98.2 F 12/29/20 15:44 Pulse 81 12/29/20 15:44 Resp 18 12/29/20 15:44 BP 147/70 12/29/20 15:44 Pulse Ox 99 12/29/20 15:44 12/29/20 12/29/20 12/29/20 06:59 14:59 22:59 Intake Total 600 / 1200 240 / 240 780 / 1020 Balance 600 / 1200 240 / 240 780 / 1020 Weight last 48 hrs Weight 109.316 kg Weight 109.588 kg Physical Exam Narrative: EXAM NARRATIVE: Awake alert oriented. No acute distress. Mood and affect are appropriate. Skin warm and dry. Moist mucous nares. Neck supple. No JVD Lungs clear. No respiratory distress Heart S1, S2, regular Abdomen soft, obese, nontender, bowel sounds are present Extremities left lower extremity status post BKA. Dressing is dry and clean. There is no peripheral cyanosis. Normal capillary refill Data : 12/29/20 02:46 12/29/20 02:46 A&P Assessment and plan (1) Cellulitis and abscess of lower extremity: Status: Acute (2) Diabetic ulcer of foot associated with diabetes mellitus due to underlying condition, limited to breakdown of skin: Status: Acute (3) Charcot's joint of foot in type 2 diabetes mellitus: Status: Acute (4) Anemia: Status: Acute Qualifiers: Anemia type: unspecified type Qualified Code(s): D64.9 - Anemia, unspecified (5) ESRD (end stage renal disease): Status: Acute (6) History of congestive heart failure: Status: Acute (7) Diabetes: Status: Acute Qualifiers: 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 Tobar yesterday. Postoperative day 2 Switch antibiotics to linezolid as per the most recent culture results of Enterococcus from right knee wound earlier this year. Dressing as per Dr. Santana. End-stage renal disease on hemodialysis: Hemodialysis session Monday, Monday, Monday. Appreciate nephrology consultation. No metabolic acidosis letter abnormality at present. Anemia: Hemoglobin stable at baseline now. Post 3 units blood transfusion yesterday evening for acute blood loss anemia on chronic anemia. Chronic anemia most likely anemia of chronic disease not responding to erythropoietin and requiring multiple transfusions. Patient has followed up with Dr. Goel in the past for the same. Cannot rule out multiple myeloma versus myelodysplastic syndrome. Patient is awaiting bone marrow biopsy. Iron panel, ferritin levels appreciated. Type 2 diabetes mellitus: HbA1c 4.9. Change insulin sliding scale to low-dose protocol. Carb consistent diet. History of congestive heart failure: Last echocardiogram done in 2019 shows an EF of 55% with no R WMA and mild TR. No exacerbation at present. Monitor strict input output. Daily weights. Hypertension: Goal blood pressure less than 140/90 mmHg keeping mean over 65. Continue home dose of carvedilol for now. Continue other chronic medications including Synthroid. Check iron panel, ferritin, reticulocyte count, vitamin B12, folate level, TSH. Full code. Renal dialysis carb consistent diet. DVT prophylaxis: We will hold off on starting pharmacological DVT prophylaxis because of possible procedure tomorrow along with chronic anemia. Cannot do SCDs or foot pumps because of extensive lymphedema and open wounds. Famotidine for PUD prophylaxis. Discharge planning: Most likely discharge in next 24 hours if patient continues to do well with PT and OT. Plan for discharge to home for now. [place] Status post left BKA by Dr. Tobar. Doing very well overall. The pain is well controlled. Right lower extremity wound. Previous culture positive for Enterococcus resistant type. Currently on linezolid based on sensitivities. Duration will depend on condition of the wound per outpatient wound care future evaluation results. Case management is working on her discharge needs. End-stage renal disease. Dialysis treatments per nephrology. Anemia. Expected acute blood loss secondary to surgery. Received 4 units. Stable currently. Continue monitoring. Will follow up with Dr. Goel after discharge for additional testing including bone marrow aspiration. Diabetes. Continue current management. Pretension. Well-controlled. Continue current management. History of CHF. Currently stable. Continue current management. The plan of care was discussed with the patient, her , multidisciplinary team. They verbalized understanding and agreement. Attestations Medical Necessity Statement*: SNF placement is pending Coding Level of Care Code Acute Senior Linux Administrator for [facility] Fwd Diagnoses Cellulitis and abscess of lower extremity L03.119; L02.419 Diabetic ulcer of foot associated with diabetes mellitus due to underlying condition, limited to breakdown of skin E08.621; L97.501 Charcot's joint of foot in type 2 diabetes mellitus E11.610 Anemia D64.9 Anemia type: unspecified type ESRD (end stage renal disease) N18.6 History of congestive heart failure Z86.79 Diabetes E11.9 Diabetes mellitus penitentiary insulin use: with penitentiary use Diabetes mellitus type: type 2 History of MRSA infection Z86.14 Lymphedema of both lower extremities I89.0
[2020-12-29 21:18] LABS: Glucose Point of Care 220 mg/dL (70-110)
[2020-12-30 00:33] VITALS: BP 152/72; PULSE 84; RESP 18; TEMP 36.6; O2SAT 97
[2020-12-30 03:35] LABS: Alanine Aminotransferase 7 U/L (0-33); Alkaline Phosphatase 103 IU/L (35-105); Anion Gap 12.1 (5-19); Aspartate Amino Transferase 12 U/L (0-32); Blood Urea Nitrogen 20 mg/dL (6-20); Calcium 6.8 mg/dL (8.5-10.5); Carbon Dioxide 25 mmol/L (22-29); Chloride 102 mmol/L (98-107); Globulin 3.8 g/dL (1.3-4.6); Glomerular Filtration Rate 9.5 mL/min (90-130); Glucose 118 mg/dL (65-115); Magnesium 1.9 mg/dL (1.7-2.3); Osmolality Calculated 284 mOsm/kg (285-295); Phosphorus 4.2 mg/dL (2.5-4.5); Potassium 4.1 mmol/L (3.5-5.1); Sodium 135 mmol/L (136-145); Total Bilirubin 0.2 mg/dL (0.15-1.2); Total Protein 5.8 g/dL (6.6-8.7)
[2020-12-30 04:18] VITALS: BP 160/74; PULSE 78; RESP 18; TEMP 36.6; O2SAT 100
[2020-12-30] MEDS: levothyroxine 75 mcg Tablet 150 MCG PO (06:00)
[2020-12-30] MEDS: linezolid 600 mg Tablet PO ×2 (06:14→18:06)
[2020-12-30 06:30] LABS: Glucose Point of Care 139 mg/dL (70-110)
[2020-12-30 07:32] VITALS: BP 160/76; PULSE 81; RESP 19; TEMP 36.8; O2SAT 98
[2020-12-30 08:00] VITALS: PULSE 83
--- NOTE | 2020-12-30 08:13 | PM.PN ---
Subjective Subjective: Interval history: no new complaints. rt leg in a boot, left BKA. no n/v/f/c/kearney/d Medications: Reviewed: Yes Medication Review Details: Current Medications Acetaminophen (Acetaminophen 325 Mg Tablet) 650 mg PO Q6H PRN PRN Reason: Mild/Mod Pain Or Temp >/= 101 Hydrocodone Bitart/Acetaminophen (Hydrocodone-Acetaminophen 5-325 Mg Tablet) 1 tab PO Q8H PRN PRN Reason: MODERATE TO SEVERE PAIN Last Admin: 12/29/20 20:42 Dose: 1 tab Documented by: Bisacodyl (Bisacodyl 5 Mg Tablet) 10 mg PO DAILY PRN PRN Reason: CONSTIPATION Carvedilol (Carvedilol 6.25 Mg Tablet) 6.25 mg PO 0900,2100 [facility] Last Admin: 12/29/20 08:35 Dose: 6.25 mg Documented by: Dextrose (Dextrose 50% Syringe 50 Ml) 25 ml IVP ONCE PRN; Protocol PRN Reason: hypoglycemia protocol Dextrose (Dextrose 50% Syringe 50 Ml) 50 ml IVP PRN PRN; Protocol PRN Reason: hypoglycemia protocol Famotidine (Famotidine 20 Mg/2 Ml Inj) 20 mg IVP Q12H [facility] Last Admin: 12/29/20 22:55 Dose: 20 mg Documented by: Ferrous Gluconate (Ferrous Gluconate 324 Mg Tablet) 324 mg PO BIDWM [facility] Last Admin: 12/29/20 17:43 Dose: 324 mg Documented by: Glucagon (Glucagon 1 Mg/Ml Inj 1 Ml) 1 mg IM ONCE PRN; Protocol PRN Reason: Adult Acute Hypoglycemia Prot. Hydromorphone HCl (Hydromorphone 1 Mg/Ml Inj 1 Ml) 0.5 - 1 mg IVP Q3H PRN PRN Reason: Pain not managed by oral agent Last Admin: 12/28/20 15:54 Dose: 1 mg Documented by: Dextrose (D5w) 500 mls @ 100 mls/hr IV ONCE PRN; Protocol PRN Reason: Adult Acute Hypoglycemia Prot Sodium Chloride (Sodium Chloride 0.9%) 1,000 mls @ 0 mls/hr IV .Q0M PRN PRN Reason: hypotension or symptomatic Albumin Human (Albumin) 12.5 gm in 50 mls @ 60 mls/hr IV PRN PRN PRN Reason: Hypotension and/or symptomatic Insulin Aspart (Insulin Aspart 100 Unit/1 Ml) 0 unit SUBCUT WM&BEDTIME [facility]; Protocol Last Admin: 12/29/20 22:54 Dose: 4 unit Documented by: Lactulose (Lactulose Oral Liq 20 Gm/30 Ml Udc) 10 gm PO DAILY PRN PRN Reason: CONSTIPA Levothyroxine Sodium (Levothyroxine 75 Mcg Tablet) 150 mcg PO DAILY@0600 [facility] Last Admin: 12/30/20 06:00 Dose: 150 mcg Documented by: Linezolid (Linezolid 600 Mg Tablet) 600 mg PO BID@0600,1800 [facility]; Protocol Last Admin: 12/30/20 06:14 Dose: 600 mg Documented by: Multivitamins (I-Dtmadxx-Avypbqf C Tablet) 1 each PO DAILY [facility] Last Admin: 12/29/20 08:35 Dose: 1 each Documented by: Ondansetron HCl (Ondansetron 2 Mg/Ml Sdv 2 Ml) 4 mg IVP Q8H PRN PRN Reason: vomiting, or N/V if npo Last Admin: 12/27/20 02:12 Dose: 4 mg Documented by: Promethazine HCl (Promethazine 25 Mg Tablet) 25 mg PO Q6H PRN PRN Reason: NAUSEA/VOMITING Last Admin: 12/29/20 18:13 Dose: 25 mg Documented by: Vitamin D (Cholecalciferol (Vitamin D3) 1,000 Unit Tablet) 1,000 unit PO DAILY [facility] Last Admin: 12/29/20 08:35 Dose: 1,000 unit Documented by: Vitals/I&O/Wt Last Vital Signs Temp 98.3 F 12/30/20 07:32 Pulse 81 12/30/20 07:32 Resp 19 H 12/30/20 07:32 BP 160/76 12/30/20 07:32 Pulse Ox 98 12/30/20 07:32 12/29/20 12/30/20 12/30/20 22:59 06:59 14:59 Intake Total 780 / 1020 Output Total 0 / 0 Balance 780 / 1020 0 / 1020 Weight last 48 hrs Weight 109.316 kg Weight 109.316 kg Physical Exam Narrative: EXAM NARRATIVE: obese, NARD, VSS heent- nc/at, eomi, anicteric neck supple lungs clear heart reg abd soft, nt, nd, +BS ext -Left BKA bandaged. Rt leg in a boot Neuro- a,a, o x 3 skin- no rashes mood good Data : 12/29/20 02:46 12/30/20 02:39 A&P Additional A&P Information 1. ESRD currently on hemodialysis MWF via left IJ tunneled catheter - HD now- 3.5 hrs, 3k remove 2l, 2. Diabetic foot infection/Charcot joint s/p left BKA 3. Anemia, worsened postop, s/p 3l units pRBC transfusion -give epo on HD - may need further prbc tx 4. Hyponatremia - monitor w/ HD 5. Hypoalbuminemia 6. cellulitis- renal dose abx 7. DM control per medicine 8. BP stable 9. hypothyroidism on synthroid 10. hypocalcemia- corrects for hypoalbuminemia- replace vit d and pth= 185- good for ESRD -phos excellent 11. s/p debridement of right heel seen w/ RN- telehealth visit Attestations Medical Necessity Statement*: per medicine Time Spent in Patient Care: 16 - 35 minutes Coding Level of Care Code Acute Energy Specialist for Gregorio Thompson
--- NOTE | 2020-12-30 09:21 | PC.NURSE ---
OFF UNIT TO DIALYSIS
--- NOTE | 2020-12-30 09:41 | PC.CHAP ---
Pastoral Care Encounter/Spiritual Assessment Type of Contact [] Declined shop steward visit [] Patient/Family/Request visit [] Outpatient visit [] Follow-up visit [] Physician referral [] Code/Alert [x] Routine visit [] Staff referral [] Actively dying [] Patient sleeping [] Family support [] [] Out of room [] Palliative care [] [x] Receiving care in room [] Pre-surgical visit [] Trauma [] Long length of stay [] ICU visit [] Other: Relational/Emotional Strength [] Patient feels connected with others/family/visitors/staff [] Distress [] Loneliness/isolation [] Abandonment Spirituality of Patient [] Person of Mana [] Attends Denominational of their Mana [] Believes in Prayer [] Reads Bible or Moravian materials [] There are Spiritual issues to be addressed Tile Setter Apprentice Interventions [] Prayer [] Active listening [] Non-anxious presence [] Spiritual/emotional support [] Crisis/trauma care [] Spiritual counseling [] Bereavement support [] Provided bereavement packet [] Provided Bible/devotional materials [] Provided toy/stuffed animal, coloring book to patient or family member [] Provided Communion [] Anointing/[place] [] Salvation [] Completed spiritual assessment [] Other: Impact on Illness or Injury [] Angry [] Fearful [] Anxious [] Often cries [] Exhaustion [] Unable to work [] Unable to attend anabaptist [] Unable to walk/stand [] Unable to read [] Unable to drive [] Unable to eat/drink [] Unable to sleep [] Unable to be with family [] Patient intubated [] Other: Summary Time spent with patient
[2020-12-30] MEDS: heparin, porcine 1,000 unit/mL INJ 10 mL HE (10:10)
--- NOTE | 2020-12-30 11:40 | PC.NURSE ---
REMAINS IN DIALYSIS
[2020-12-30 11:44] VITALS: BP 144/66; PULSE 78; RESP 16; TEMP 37.1; O2SAT 96
[2020-12-30 11:45] LABS: Glucose Point of Care 138 mg/dL (70-110)
--- NOTE | 2020-12-30 12:15 | P.PN_ITS ---
Subjective Subjective: Interval history: No comlaints. Pain ok with meds Vitals/I&O/Wt Last Vital Signs Temp 98.7 F 12/30/20 11:44 Pulse 78 12/30/20 11:44 Resp 16 12/30/20 11:44 BP 144/66 12/30/20 11:44 Pulse Ox 96 12/30/20 11:44 12/29/20 12/30/20 12/30/20 22:59 06:59 14:59 Intake Total 780 / 1020 240 / 240 Output Total 0 / 0 100 / 100 Balance 780 / 1020 0 / 1020 140 / 140 Weight last 48 hrs Weight 241 lb Weight 241 lb Physical Exam Narrative: EXAM NARRATIVE: Slight serosanuenous staining dressing. Dressing changed. Data : 12/29/20 02:46 12/30/20 02:39 A&P Assessment and plan (1) Status post below-knee amputation of left lower extremity: BKA flaps at high risk to to poor soft tissue envelope, DM and ESRS but thus far wounds look good. Status: Acute Attestations Medical Necessity Statement*: OK for discharge per ortho Coding Level of Care Code Acute Cabin Equipment Supervisor for [facility] Fwd Diagnoses Status post below-knee amputation of left lower extremity Z89.512
--- NOTE | 2020-12-30 13:14 | PC.NURSE ---
PT UP WITH PT - ANNABEL WELL
[2020-12-30] MEDS: cholecalciferol (vitamin D3) 1,000 unit Tablet 1000 UNIT PO (14:05)
[2020-12-30] MEDS: ferrous gluconate 324 mg Tablet PO (14:06)
[2020-12-30] MEDS: b-complex-vitamin c Tablet 1 EACH PO (14:06)
--- NOTE | 2020-12-30 14:49 | P.DS_ITS ---
Discharge Providers Date of Admission: 12/25/20 13:43 Date of Discharge: December 30, 2020 Attending Provider at Admission: Angel Baez MD Attending Provider at Discharge: Ezekiel Veronica Primary Care Provider: Karen Bear MD Diagnoses at Discharge Discharge Diagnosis (1) Status post below-knee amputation of left lower extremity: Status: Acute Reason for Visit Reason for Visit: L FOOT/LEG PAIN, SENT OVER BY DR. KELLY, Hospital Course Hospital Course Discharge diagnoses and problem list status post left BKA by Dr. Tobar. Doing very well overall. The pain is well controlled. Cleared for discharge. Will continue follow-up with outpatient wound care and Dr. Belcher Right lower extremity wound. Previous culture positive for Enterococcus resistant type. Currently on linezolid based on sensitivities. Duration will depend on condition of the wound per outpatient wound care future evaluation results. End-stage renal disease. Continue dialysis treatment in the senior living facility. Anemia. Expected acute blood loss secondary to surgery. Received 4 units. Stable currently. Continue monitoring. Will follow up with Dr. Goel after discharge for additional testing including bone marrow aspiration. Diabetes. Continue current management. Pretension. Well-controlled. Continue current management. History of CHF. Currently stable. Continue current management. The plan of care was discussed with the patient, her , multidisciplinary team. They verbalized understanding and agreement. Physical Exam Narrative: EXAM NARRATIVE: Awake alert oriented. No acute distress. Mood and affect are appropriate. Skin warm and dry. Moist mucous nares. Neck supple. No JVD Lungs clear. No respiratory distress Heart S1, S2, regular Abdomen soft, obese, nontender, bowel sounds are present Extremities left lower extremity status post BKA. Dressing is dry and clean. There is no peripheral cyanosis. Normal capillary refill Discharge Data Data Completed and Pending: Completed Studies During Hospitalization Category Date Time Status CV ankle brachial index 86921 Routi ne Ultrasound 12/25/20 13:55 Completed Pending at discharge Category Date Time Status Complete Blood Co unt w/Auto AM LABS Lab 12/31/20 04:00 Ordered MRSA by PCR Routi ne Lab 12/25/20 14:44 Ordered Magnesium AM LABS Lab 12/31/20 04:00 Ordered Renal Function Pa krystal AM LABS Lab 12/31/20 04:00 Ordered Vitamin D 1,25 Di hydroxy Routine Lab 12/27/20 05:30 Received Pathology: Surgic al [PTH] Routine Pth 12/26/20 12:49 Received Labs from last 24 hours 12/30/20 12/30/20 12/30/20 11:42 06:07 02:39 Sodium 135 L Potassium 4.1 Chloride 102 Carbon Dioxide 25 Anion Gap 12.1 BUN 20 Creatinine 4.7 H GFR Calculation 9.5 L Glucose 118 H POC Glucose 138 H 139 H Calculated Osmolal ity 284 L Calcium 6.8 L Phosphorus 4.2 Magnesium 1.9 Total Bilirubin 0.2 AST 12 ALT 7 Alkaline Phosphata se 103 Total Protein 5.8 L Albumin 2.0 L Globulin 3.8 12/29/20 12/29/20 21:04 16:49 Sodium Potassium Chloride Carbon Dioxide Anion Gap BUN Creatinine GFR Calculation Glucose POC Glucose 220 H 159 H Calculated Osmolal ity Calcium Phosphorus Magnesium Total Bilirubin AST ALT Alkaline Phosphata se Total Protein Albumin Globulin Vitals: Last Vital Signs Temp 98.7 F 12/30/20 11:44 Pulse 78 12/30/20 11:44 Resp 16 12/30/20 11:44 BP 144/66 12/30/20 11:44 Pulse Ox 96 12/30/20 11:44 Discharge Plan Discharge Patient Disposition: Home Condition: Stable Prescriptions: New carvedilol 6.25 mg Tablet 6.25 mg PO 0900,2099 Qty: 60 RF: 0 Novolog U-100 Insulin aspart 100 unit/mL Solution 0 unit SUBCUT WM&BEDTIME Qty: 0 RF: 0 B-complex with vitamin C Tablet 1 ea PO DAILY Qty: 30 RF: 0 cholecalciferol (vitamin D3) 25 mcg (1,000 unit) Tablet 1,000 unit PO DAILY Qty: 30 RF: 0 ferrous gluconate 324 mg (37.5 mg iron) Tablet 324 mg PO BIDWM 30 Days Qty: 60 RF: 0 Continued (DME) insulin syringe-needle U-100 [BD Insulin Syringe Ultra-Fine] 1 mL 30 gauge x 1/2 syringe See Rx Instructions .ROUTE .MEDSUPPLY Qty: 100 RF: 6 linezolid 600 mg tablet 600 mg PO BID@0600,1800 RF: 0 promethazine 25 mg tablet 25 mg PO Q6H PRN (Reason: NAUSEA/VOMITING) RF: 0 Synthroid 150 mcg tablet 150 mcg PO DAILY@0600 RF: 0 Discontinued Novolin 70/30 U-100 Insulin 100 unit/mL (70-30) suspension See Rx Instructions .ROUTE .COMPLEX Qty: 10 RF: 3 carvedilol 25 mg tablet 25 mg PO DAILY@0600 RF: 0 Discharge Orders: Discharge Order (Routine); Ordered 12/30/20 Ordered By: Ezekiel Veronica Other Ambulatory Orders: DME: [facility] (Order) Location: None Selected Ordered By: Angel Baez Referrals: Marbin Tobar MD [Physician] - 2 weeks (PLEASE CALL FOR APPOINTMENT) Karen Bear MD [Primary Care Provider] - 2 weeks (PLEASE CALL FOR APPOINTMENT) Discharge Diet: Diabetic Discharge Activity: Increase activity as tolerated Activity Restrictions/Additional Instructions: Tubigauze to left below-knee amputation stump. May change dressing as needed for drainage. 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
--- NOTE | 2020-12-30 15:10 | PC.NURSE ---
DR KELLY RIGHT FOOT DRESSING CHANGE DONE PER DR KELLY - ANNABEL VALENZUELA
[2020-12-30 15:48] VITALS: BP 172/81; PULSE 82; RESP 18; TEMP 36.8; O2SAT 100
--- NOTE | 2020-12-30 16:01 | PC.NURSE ---
[facility] REPORT CALLED TO RACHEAL DAHL LPN AT [facility]
--- NOTE | 2020-12-30 16:17 | PC.SOCIAL ---
*IMM Updated* Patient received updated IMM. This content writer initialled and placed in chart.
--- NOTE | 2020-12-30 16:37 | PC.NURSE ---
LATE ENTRY 699 - RIGHT CHEST WALL FISTULA NOTED TO BE C/D/I - LEFT PD SITE C/D/I
[2020-12-30 17:05] LABS: Glucose Point of Care 149 mg/dL (70-110)
--- NOTE | 2020-12-30 17:33 | PM.PN ---
Subjective Subjective: Interval history: Patient seen bedside today for dressing change to the right foot. Have been doing Betadine wet-to-dry twice daily. She has also been utilizing a cam boot for stabilization for transfers only. She remains in positive spirits. Plans for transfer to [facility]. Vitals/I&O/Wt Last Vital Signs Temp 98.2 F 12/30/20 15:48 Pulse 82 12/30/20 15:48 Resp 18 12/30/20 15:48 BP 172/81 12/30/20 15:48 Pulse Ox 100 12/30/20 15:48 12/30/20 12/30/20 12/30/20 06:59 14:59 22:59 Intake Total 240 / 240 Output Total 0 / 0 100 / 100 Balance 0 / 1020 140 / 140 Weight last 48 hrs Weight 241 lb Weight 241 lb Physical Exam Narrative: EXAM NARRATIVE: Patient is alert and oriented ?3 and in no acute distress. The following is a focused right lower extremity exam. Patient's is present. VASCULAR: Dorsalis pedis nonpalpable, posterior tibial artery nonpalpable likely secondary to edema. Capillary refill time less than 3 seconds to the distal hallux bilaterally. Calf is supple and nontender proximally and distally. Pitting edema to the lower extremity. NEUROLOGICAL: Protective sensation intact 0/10 sites, tested with [place] Josefina monofilament to bilateral feet. DERMATOLOGICAL: Wound at the right plantar heel measures 9.5 cm x 10.5 cm x 0.3 cm with fibrous devitalized base predebridement. Post debridement wound does not probe directly to bone that was exposed to fat layer. There is no purulent drainage from the wound. Wound does have foul odor, no periwound erythema or proximal lymphangitic streaking noted. No tunneling or undermining. Lower extremity integument is indurated. MUSCULOSKELETAL: Hypermobility at the right ankle and foot. Patient's right foot is not plantar great due to the extent of instability at her ankle and rear foot. Muscle strength is 5 out of 5 in all 3 cardinal planes. No pain with debridement secondary to neuropathy. 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 Shaw is a pleasant 60-year-old diabetic female with history of end-stage renal failure, bilateral Charcot arthropathy and recently status post left below-knee amputation. Bunch grade 2 ulceration to the right plantar heel, wound is clinically stable, x-ray 12/24/2020 is negative for obvious osteomyelitis or soft tissue emphysema, given underlying Charcot osteomyelitis is unable to be ruled out. At this point efforts are being made to preserve the right lower extremity as she is status post below-knee amputation date of operation 12/26/2020, preserving her right foot given her levels of activity which are essentially just for transfers would allow her to transfer more efficiently. Ultimately she will likely require a below-knee amputation of the right lower extremity down the road but at this time will focus on local wound care and bracing options to help stabilize her right ankle to prevent further collapse and even open fracture which she is at risk of due to the instability. Continue with Betadine wet-to-dry twice daily at alf for right heel wound. Recommend lymphedema wraps to the right lower extremity while at [place] Recommend follow-up appointment at [facility] wound care Continue with cam boot to the right lower extremity to utilize when transferring Order sent to [facility] for [place] boot to the right lower extremity. 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
[2021-01-05 19:23] LABS: Vit D 1,25 (Oh)2, Total <8 pg/mL (18-72); Vit D2 1,25 (Oh)2 <8 pg/mL; Vit D3 1,25 (Oh)2 <8 pg/mL
== END 2020-12-30 20:30 | disposition home or self-care (01) | DRG 40 ==
LOC: ER 13:43 → MEDSURG 14:08
PROVIDERS: Anesthesiology; Internal Medicine; Internal Medicine Nephrology; Orthopaedic Surgery; Admitting Provider Student in an Organized Health Care Education/Training Program; Emergency Provider Emergency Medicine; PCP Family Medicine; Visit Provider Internal Medicine
PROC: 0Y6G0ZZ Detachment at Left Knee Region, Open Approach (ICD-10-PCS; CPT 27880; principal; 2020-12-26 09:20)
DX: E11.610 Type 2 diabetes mellitus with diabetic neuropathic arthropathy (principal); N18.6 End stage renal disease; L03.119 Cellulitis of unspecified part of limb; D62 Acute posthemorrhagic anemia; L97.412 Non-pressure chronic ulcer of right heel and midfoot with fat layer exposed; M00.9 Pyogenic arthritis, unspecified; L02.419 Cutaneous abscess of limb, unspecified; I12.0 Hypertensive chronic kidney disease with stage 5 chronic kidney disease or end stage renal disease; L97.501 Non-pressure chronic ulcer of other part of unspecified foot limited to breakdown of skin; E11.621 Type 2 diabetes mellitus with foot ulcer; Z86.14 Personal history of Methicillin resistant Staphylococcus aureus infection; Z86.79 Personal history of other diseases of the circulatory system; L97.529 Non-pressure chronic ulcer of other part of left foot with unspecified severity; M14.672 Charcot's joint, left ankle and foot; L97.519 Non-pressure chronic ulcer of other part of right foot with unspecified severity; I89.0 Lymphedema, not elsewhere classified; E03.9 Hypothyroidism, unspecified; E11.22 Type 2 diabetes mellitus with diabetic chronic kidney disease; Z99.2 Dependence on renal dialysis; E78.5 Hyperlipidemia, unspecified
CPT/HCPCS: 36415; 36416; 36430; 73610; 73630; 80053; 80061; 80202; 81001; 82306; 82310; 82436; 82652; 82728; 82962; 83036; 83540; 83550; 83605; 83735; 83880; 83970; 84100; 84133; 84145; 84300; 84443; 85014; 85018; 85025; 85610; 86140; 86706; 86803; 86850; 86900; 86920; 86927; 87040; 87340; 88307; 93922; 94664; 96372; 97110; 97161; 97165; 97530; 97535; 99214; 99285; J1170; J1644; J1815; J2405; J2543; J3010; J3370; J3490; J7030; P9016; P9017; Q0169; Q3014; Q4081

== ENCOUNTER 2020-12-31 13:09 | Outpatient (CLI) | payer MEDICARE, MEDICAID, SELFPAY | END 2020-12-31 13:10 | disposition home or self-care (01) | LOC: WOUND 13:10 | PROVIDERS: PCP Family Medicine; Visit Provider Nurse Practitioner Family | DX: I96 Gangrene, not elsewhere classified (principal); L89.613 Pressure ulcer of right heel, stage 3 | CPT/HCPCS: 11042; 11045 ==

== ENCOUNTER 2021-01-07 10:01 | Outpatient (CLI) | payer MEDICARE, MEDICAID, SELFPAY ==
[2021-01-07 10:24] LABS: Basophils # 0.1 10^3/uL (0.0-0.1); Basophils % 1.2 %; Eosinophils # 0.4 10^3/uL (0.0-0.8); Eosinophils % 5.5 %; Hematocrit 25.8 % (37.0-47.0); Lymphocytes # 1.3 10^3/uL (0.8-4.8); Lymphocytes % 17.3 %; Mean Corpuscular Hemoglobin 32.5 pg (28.0-34.0); Mean Corpuscular Volume 104.9 fL (81-99); Mean Platelet Volume 9.7 fL (7.4-10.4); Monocytes # 0.8 10^3/uL (0.2-0.9); Monocytes % 10.4 %; Neutrophils % 65.3 %; Nucleated Red Blood Cells % 0 %; Platelet Count 197 10^3/cmm (130-400); Red Blood Count 2.46 10^6/uL (4.1-5.3); Red Cell Distribution Width 17.5 % (12.1-15.1); White Blood Count 7.2 10^3/uL (4.0-10.0)
== END 2021-01-07 10:02 | disposition home or self-care (01) ==
LOC: LAB 10:04
PROVIDERS: PCP Family Medicine; Visit Provider Nurse Practitioner Family
DX: D64.9 Anemia, unspecified (principal)
CPT/HCPCS: 85025

== ENCOUNTER 2021-01-07 13:00 | Outpatient (CLI) | payer MEDICARE, MEDICAID, SELFPAY | END 2021-01-07 13:01 | disposition home or self-care (01) | LOC: WOUND 13:01 | PROVIDERS: PCP Family Medicine; Visit Provider Thoracic Surgery (Cardiothoracic Vascular Surgery) | DX: I96 Gangrene, not elsewhere classified (principal); L89.613 Pressure ulcer of right heel, stage 3 | CPT/HCPCS: 11042; 11045 ==

== ENCOUNTER 2021-01-14 12:58 | Outpatient (CLI) | payer MEDICARE, MEDICAID, SELFPAY | END 2021-01-14 12:59 | disposition home or self-care (01) | LOC: WOUND 12:59 | PROVIDERS: PCP Family Medicine; Visit Provider Thoracic Surgery (Cardiothoracic Vascular Surgery) | DX: L89.613 Pressure ulcer of right heel, stage 3 (principal) | CPT/HCPCS: 11043; 11046; L8440 ==

== ENCOUNTER 2021-01-21 13:13 | Outpatient (CLI) | payer MEDICARE, MEDICAID, SELFPAY | END 2021-01-21 13:14 | disposition home or self-care (01) | LOC: WOUND 13:14 | PROVIDERS: PCP Family Medicine; Visit Provider Thoracic Surgery (Cardiothoracic Vascular Surgery) | DX: L89.893 Pressure ulcer of other site, stage 3 (principal); T81.31XA Disruption of external operation (surgical) wound, not elsewhere classified, initial encounter; Y83.8 Other surgical procedures as the cause of abnormal reaction of the patient, or of later complication, without mention of misadventure at the time of the procedure | CPT/HCPCS: 11042; 11045 ==

== ENCOUNTER 2021-02-04 09:33 | Outpatient (CLI) | payer MEDICARE, MEDICAID, SELFPAY | END 2021-02-04 09:34 | disposition home or self-care (01) | LOC: WOUND 09:35 | PROVIDERS: PCP Family Medicine; Visit Provider Nurse Practitioner Family | DX: E11.621 Type 2 diabetes mellitus with foot ulcer (principal); L89.613 Pressure ulcer of right heel, stage 3; T81.31XA Disruption of external operation (surgical) wound, not elsewhere classified, initial encounter; Y83.8 Other surgical procedures as the cause of abnormal reaction of the patient, or of later complication, without mention of misadventure at the time of the procedure; Z89.512 Acquired absence of left leg below knee | CPT/HCPCS: 11042; 11045; G0463 ==

== ENCOUNTER 2021-02-11 09:40 | Outpatient (CLI) | payer MEDICARE, MEDICAID, SELFPAY | END 2021-02-11 09:41 | disposition home or self-care (01) | LOC: WOUND 09:41 | PROVIDERS: PCP Family Medicine; Visit Provider Nurse Practitioner Family | DX: I96 Gangrene, not elsewhere classified (principal); L89.613 Pressure ulcer of right heel, stage 3; E11.621 Type 2 diabetes mellitus with foot ulcer; T81.31XA Disruption of external operation (surgical) wound, not elsewhere classified, initial encounter; Y83.8 Other surgical procedures as the cause of abnormal reaction of the patient, or of later complication, without mention of misadventure at the time of the procedure; Z89.512 Acquired absence of left leg below knee | CPT/HCPCS: 99212 ==

== ENCOUNTER 2021-02-18 09:15 | Outpatient (CLI) | payer MEDICARE, MEDICAID, SELFPAY | END 2021-02-18 09:16 | disposition home or self-care (01) | LOC: WOUND 09:16 | PROVIDERS: PCP Family Medicine; Visit Provider Nurse Practitioner Family | DX: I96 Gangrene, not elsewhere classified (principal); L89.613 Pressure ulcer of right heel, stage 3 | CPT/HCPCS: 11042; 11045 ==

== ENCOUNTER → 2021-03-02 08:33 | Outpatient (BNVA) | payer MEDICARE, MEDICAID, SELFPAY | PROVIDERS: PCP Family Medicine; Visit Provider Orthopaedic Surgery | DX: Z01.812 Encounter for preprocedural laboratory examination (principal); Z20.822 Contact with and (suspected) exposure to COVID-19 | CPT/HCPCS: 87635 ==

== ENCOUNTER 2021-03-04 07:11 | Day surgery (SDC) | payer MEDICARE, MEDICAID, SELFPAY ==
[2021-03-03 19:02] VITALS: BMI 36.2
[2021-03-04] VITALS (14 sets, daily range): BP systolic 104–176; BP diastolic 49–84; PULSE 58–81; RESP 9–19; TEMP 36.3–36.7; O2SAT 92–100
[2021-03-04 08:09] LABS: Glucose Point of Care 102 mg/dL (70-110)
[2021-03-04] MEDS: sodium chloride 0.9% 1,000 ML 30 ML IV (08:09)
[2021-03-04] MEDS: scopolamine 1.5 Patch 1 PATCH TRANSDERMA (08:09)
--- NOTE | 2021-03-04 08:47 | ANES.PREANE2 ---
Pre-Anesthetic Assessment Pre-Anesthetic Assessment: Height/Weight: Height 1.69 m Weight 103.419 kg Temp Pulse Resp BP Pulse Ox 98.1 F 69 18 176/84 99 03/04/21 07:49 03/04/21 07:49 03/04/21 07:49 03/04/21 07:49 03/04/21 07:49 Preop Diagnosis: Dehiscence left below-knee amputation Proposed Procedure: Operation Date: 03/04/21 09:25 Proposed Procedures p Debridement and closure below knee amputation dehisced 24268 Z89.512(Not Applicable) - Marbin Tobar MD Was Beta Cristo taken within 24 hours: Yes Was Clonidine taken within 24 hours: N/A Last intake: Intake Last Liquid Date 03/04/21 Last Liquid Time 22:00 Last Solid Date 03/03/21 Last Solid Time 18:30 Social: Social History: No alcohol and No tobacco Exam: Pre-Anes Outpt Exam: alert, oriented x 3, clear to auscultation bilaterally and regular rate & rhythm Airway: Submandibular: WNL Cervical ROM: WNL MP: 2 Dentition: Full CV/HEM: CV/HEM: Anemia, CHF and HTN : : Chronic renal failure Metabolic: Metabolic: DM and Morbid obesity Musc/skel: Musc/skel: Weakness Comments: Charcot Neuropsych: Neuropsych: Neuropathy Anesthetic Plan: ASA status: 3 Anesthesia: General Risk of > 500 ml blood loss (7ml/kg in children): No Meds/Allergies Current Medications: Current Medications Generic Name Dose Route Start Last Admin Trade Name Freq PRN Reason Stop Dose Admin Sodium Chloride 1,000 mls @ 30 ml s/hr 03/04/21 07:30 03/04/21 08:09 Sodium Chloride 0.9% IV 03/05/21 07:29 30 mls/hr .Q24H SHELBY Administration PFSH Anesthesia PFSH: Medical History Acute bronchitis Anemia Aortic valve endocarditis Atypical chest pain Bacteremia due to Staphylococcus EKG done this morning revealed normal sinus rhythm with a left axis deviation. Voltage area for LVH. No significant ST-T changes. 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 Protein-energy malnutrition Septic arthritis of left ankle SOB (shortness of breath) Surgical History Central vascular catheter in place upon arrival History of cholecystectomy History of lumbar surgery Due to epidural abscess in March 2018 Peritoneal dialysis catheter in place Family History Mother Cancer Uterine and breast cancer Father Diabetes Other CAD (coronary artery disease) Social History Smoking and tobacco status: never smoked Alcohol intake: current Alcohol intake frequency: holidays/special occasions only Female Reproductive History: Date of last menstrual period: 05/28/14 Data Anesthesia Other Labs: Laboratory Results - last 48 hr 03/04/21 08:04 POC Glucose 102 Cardiac Studies: No Data to Display
--- NOTE | 2021-03-04 09:49 | W.PM.OPSUD ---
Surgery/Procedure H&P Update DATE OF PROCEDURE: March 04, 2021 DATE H&P PERFORMED: 02/16/21 PREOP DIAGNOSIS: Dehiscence left below-knee amputation PLANNED PROCEDURE: Operation Date: 03/04/21 09:25 Proposed Procedures p Debridement and closure below knee amputation dehisced 38713 Z89.512(Not Applicable) - Marbin Tobar MD
[2021-03-04] MEDS: midazolam 1 mg/mL INJ 2 mL 2 MG IVP (09:58)
--- NOTE | 2021-03-04 11:00 | P.OP_ITS ---
Operative Report Date of procedure: March 04, 2021 Pre-op Diagnosis: Dehiscence left below-knee amputation Post-op Diagnosis: Dehiscence left below-knee amputation Post-op Findings: Dehiscence left below-knee amputation Procedure Done: Aggressive debridement below-knee amputation wound with closure over [place] drain Pathology: none sent Anesthesia: General Estimated blood loss (mL): 20 Complications: None Findings: The patient had an approximately 4 cm long dehiscence over anterior medial below-knee amputation with extension down to the deep muscular flap and a fluid cavity extending deeper between the muscular flap and distal tissues medially. Deep cultures were sent but there is no obvious necrosis or purulent tissue noted Disposition: PACU Brief History: Alesia underwent a left below-knee amputation with a dehiscence of the anterior medial skin. Local wound care failed to show improvement and she is taken to the operating room for debridement and closure of the wound Procedure: The patient was taken to the operating room and given a general anesthesia. Necrotic material at the base of the medial skin wound was initially abraded with the scissors and pickups bringing us down to the interval between the level of her posterior flap. There is communication then posteriorly between the subcutaneous tissue and fat. There was no obvious purulent or necrotic tissue and vascularity there seemed reasonable. Deep cultures were sent. The wound edges were aggressively cleaned in the subcutaneous tissues with a ronjoure and scissors. A small amount of hyalinized subcutaneous fat was removed from the most lateral aspect of the incision to facilitate a more tension-free repair. The wound was irrigated with saline. Quarter inch [place] was then routed from the deep cavity medially exiting the skin approximately 5 cm proximal to the wound. The skin edges were approximated with a vertical 2 and 1 Prolene sutures. 4 x 4's and ABD pad and compression to be gauze were applied. The patient was taken recovery room in stable condition.
--- NOTE | 2021-03-04 11:12 | P.PCN_ITS ---
PACU note PACU note: VSS, Good respiratory effort, report to VIOLIN TUTOR Post-Anesthesia Exam: awake
--- NOTE | 2021-03-04 11:12 | PM.PACU ---
PACU note PACU note: VSS, Good respiratory effort, report to AGRICULTURAL INSPECTOR Post-Anesthesia Exam: awake
[2021-03-04] MEDS: fentaNYL 50 mcg/mL INJ 2mL IVP ×2 (11:29→11:34)
--- NOTE | 2021-03-04 12:32 | SUR.PHASEII ---
patient states pain at 4/10. patient states her and her are going to eat after DC and she wants to wait to take a pain med until after she eats lunch.
--- NOTE | 2021-03-04 15:41 | ANE.PACU2 ---
Inpatient post-anesthesia follow up: Airway intact: Yes Vital signs: Temperature 97.8 F Pulse Rate 81 Respiratory Rate 18 Blood Pressure 142/80 Pulse Oximetry 92 Oxygen Delivery Me thod Room Air Oxygen Flow Rate 8 Fraction of Inspir ed Oxygen Hydration adequate: Yes Nausea and vomiting: No Pain level: 2 Mental status: Baseline
== END 2021-03-04 12:47 | disposition home or self-care (01) ==
PROVIDERS: PCP Family Medicine; Visit Provider Orthopaedic Surgery
PROC: (CPT 11042; principal; 2021-03-04 09:15)
DX: T87.81 Dehiscence of amputation stump (principal); E66.01 Morbid (severe) obesity due to excess calories; Z68.36 Body mass index [BMI] 36.0-36.9, adult; E11.40 Type 2 diabetes mellitus with diabetic neuropathy, unspecified; E11.22 Type 2 diabetes mellitus with diabetic chronic kidney disease; I13.2 Hypertensive heart and chronic kidney disease with heart failure and with stage 5 chronic kidney disease, or end stage renal disease; N18.6 End stage renal disease; I50.9 Heart failure, unspecified; Z86.010 Personal history of colon polyps; Z86.14 Personal history of Methicillin resistant Staphylococcus aureus infection; E78.5 Hyperlipidemia, unspecified; E03.9 Hypothyroidism, unspecified
CPT/HCPCS: 11042; 36416; 82962; 87070; 87075; 87077; 87186; 87205; 96374; J2250; J2405; J2704; J3010; J7030

== ENCOUNTER 2021-03-18 10:07 | Outpatient (CLI) | payer MEDICARE, MEDICAID, SELFPAY | END 2021-03-18 10:08 | disposition home or self-care (01) | LOC: WOUND 10:09 | PROVIDERS: PCP Family Medicine; Visit Provider Nurse Practitioner Family | DX: I96 Gangrene, not elsewhere classified (principal); L89.613 Pressure ulcer of right heel, stage 3 | CPT/HCPCS: 99212 ==

== ENCOUNTER 2021-03-30 13:14 | Outpatient (CLI) | payer MEDICARE, MEDICAID, SELFPAY | END 2021-03-30 13:15 | disposition home or self-care (01) | LOC: WOUND 13:15 | PROVIDERS: PCP Family Medicine; Visit Provider Thoracic Surgery (Cardiothoracic Vascular Surgery) | DX: I96 Gangrene, not elsewhere classified (principal); L89.613 Pressure ulcer of right heel, stage 3 | CPT/HCPCS: 11042; 11045 ==

== ENCOUNTER → 2021-04-19 12:31 | Outpatient (BNVA) | payer MEDICARE, MEDICAID, SELFPAY | PROVIDERS: PCP Family Medicine; Visit Provider Surgery | DX: Z01.812 Encounter for preprocedural laboratory examination (principal); Z20.822 Contact with and (suspected) exposure to COVID-19 | CPT/HCPCS: 87635 ==

== ENCOUNTER 2021-04-29 09:32 | Outpatient (CLI) | payer MEDICARE, MEDICAID, SELFPAY | END 2021-04-29 09:33 | disposition home or self-care (01) | LOC: WOUND 09:33 | PROVIDERS: PCP Family Medicine; Visit Provider Nurse Practitioner Family | DX: L89.613 Pressure ulcer of right heel, stage 3 (principal); T81.31XA Disruption of external operation (surgical) wound, not elsewhere classified, initial encounter; Y83.8 Other surgical procedures as the cause of abnormal reaction of the patient, or of later complication, without mention of misadventure at the time of the procedure | CPT/HCPCS: 11042; 11045 ==

== ENCOUNTER → 2021-05-14 11:34 | Outpatient (BNVA) | payer MEDICARE, MEDICAID, SELFPAY | PROVIDERS: PCP Family Medicine; Visit Provider Surgery | DX: Z11.52 Encounter for screening for COVID-19 (principal) | CPT/HCPCS: 87635 ==

== ENCOUNTER 2021-05-20 08:28 | Day surgery (SDC) | payer MEDICARE, MEDICAID, SELFPAY ==
[2021-05-19 17:30] VITALS: BMI 35.5
[2021-05-20 09:05] VITALS: PULSE 62; RESP 18; TEMP 36.3; O2SAT 97
[2021-05-20] MEDS: scopolamine 1.5 Patch 1 PATCH TRANSDERMA (09:12)
--- NOTE | 2021-05-20 09:16 | ANES.PREANE2 ---
Pre-Anesthetic Assessment Pre-Anesthetic Assessment: Height/Weight: Height 1.68 m Weight 99.79 kg Temp Pulse Resp Pulse Ox 97.3 F L 62 18 97 05/20/21 09:05 05/20/21 09:05 05/20/21 09:05 05/20/21 09:05 Preop Diagnosis: Removal of PD catheter Proposed Procedure: Operation Date: 05/20/21 11:00 Proposed Procedures p Peritoneal Catheter Removal 97701 z998.2(Not Applicable) - Eros Jorgensen MD Was Beta Cristo taken within 24 hours: Yes Was Clonidine taken within 24 hours: Yes Last intake: Intake Last Liquid Date 05/19/21 Last Liquid Time 20:30 Last Solid Date 05/19/21 Last Solid Time 20:30 Social: Social History: No alcohol and No tobacco Exam: Pre-Anes Outpt Exam: alert, oriented x 3 and regular rate & rhythm Additional Exam Findings (including area of procedure): dminished BS bilaterall L>R Airway: Submandibular: WNL Cervical ROM: WNL MP: 2 Dentition: Caps Pulmonary: Pulmonary: SOB CV/HEM: CV/HEM: HTN : : Chronic renal failuer Hepatic: Comments: Hepatomegaly GI: GI: None reported Metabolic: Metabolic: Thyroid Musc/skel: Musc/skel: Weakness Neuropsych: Neuropsych: None reported Anesthetic Plan: ASA status: 3 Anesthesia: MAC PFSH Anesthesia PFSH: Medical History (Updated 05/11/21 @ 15:53 by Eros Jorgensen MD) Acute bronchitis Anemia Aortic valve endocarditis Bacteremia due to Staphylococcus EKG done this morning revealed normal sinus rhythm with a left axis deviation. Voltage area for LVH. No significant ST-T changes. 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 Protein-energy malnutrition Septic arthritis of left ankle Surgical History (Updated 05/11/21 @ 15:55 by Eros Jorgensen MD) Central vascular catheter in place upon arrival History of cholecystectomy History of colonoscopy with polypectomy 2017 History of left below knee amputation History of lumbar surgery Due to epidural abscess in March 2018 Peritoneal dialysis catheter in place S/P hemodialysis catheter insertion Family History Mother Cancer Uterine and breast cancer Father Diabetes Other CAD (coronary artery disease) Social History Smoking and tobacco status: never smoked Alcohol intake: current Alcohol intake frequency: holidays/special occasions only Female Reproductive History: Date of last menstrual period: 05/28/14 Data Anesthesia Cardiac Studies: No Data to Display
[2021-05-20] MEDS: sodium chloride 0.9% 1,000 ML 30 ML IV (09:40)
[2021-05-20 09:41] LABS: Glucose Point of Care 129 mg/dL (70-110)
--- NOTE | 2021-05-20 09:55 | W.PM.OPSUD ---
Surgery/Procedure H&P Update DATE OF PROCEDURE: May 20, 2021 DATE H&P PERFORMED: 05/11/21 H&P UPDATE INFORMATION: I have reviewed H&P completed within last 30 days, I have examined patient prior to procedure and No changes to prior documentation PREOP DIAGNOSIS: Removal of PD catheter PLANNED PROCEDURE: Operation Date: 05/20/21 11:00 Proposed Procedures p Peritoneal Catheter Removal 62293 z998.2(Not Applicable) - Eros Jorgensen MD
[2021-05-20] MEDS: lidocaine 1% INJ 20 mL IM (10:28)
--- NOTE | 2021-05-20 10:41 | SUR.OPER ---
1041 catheter removed intact and inspected by dr christianson.disposed of in biohazard
[2021-05-20 10:56] VITALS: BP 190/87; PULSE 60; RESP 16; TEMP 36.2; O2SAT 100
[2021-05-20 11:01] VITALS: BP 188/92; PULSE 61; RESP 15; O2SAT 100
[2021-05-20 11:05] VITALS: BP 187/87; PULSE 62; RESP 13; TEMP 36.6; O2SAT 95
[2021-05-20 11:35] VITALS: BP 186/82; PULSE 60; RESP 16; TEMP 36.6; O2SAT 95
--- NOTE | 2021-05-20 15:15 | ANE.PACU2 ---
Inpatient post-anesthesia follow up: Airway intact: Yes Vital signs: Temperature 97.8 F Pulse Rate 60 Respiratory Rate 16 Blood Pressure 186/82 Pulse Oximetry 95 Oxygen Delivery Me thod Room Air Oxygen Flow Rate 8 Fraction of Inspir ed Oxygen Hydration adequate: Yes Nausea and vomiting: No Pain level: 3 Mental status: Baseline
--- NOTE | 2021-05-20 18:02 | PM.OP ---
Operative Report Date of procedure: May 20, 2021 Pre-op Diagnosis: ESRD on hemodialysis requiring removal of peritoneal dialysis catheter Post-op diagnosis: same Procedure Done: Removal of peritoneal dialysis catheter Pathology: none sent Surgeon: Eros Jorgensen Anesthesia: MAC and Local Condition: stable Disposition: PACU Procedure: The patient was taken to the operating room and placed under MAC after IV antibiotic had been administered. The abdomen including the catheter was prepped and draped in a sterile manner. 1% lidocaine with 0.5% Marcaine was infiltrated around the catheter in the left upper quadrant as well as at the site of planned incision to the left and inferior to the umbilicus. Using a 15 blade a 3 cm transverse incision was made at the site of prior entry into the peritoneal cavity. The subcutaneous tissue was divided using electrocautery and the catheter was dissected free from the surrounding subcutaneous tissue and removed from the peritoneal cavity without difficulty. The fascial defect was closed using [id number] 0 Vicryl suture. The distal cuff was dissected free from the surrounding subcutaneous tissue. Using hemostats the catheter up to the cuff was dissected free from the surrounding subcutaneous tissues through the catheter exit site , the catheter was cut and removed in 2 pieces without any difficulty. The wound was irrigated with saline and subcutaneous tissues approximated using interrupted 3-0 Vicryl suture and skin was closed using running subcuticular 4-0 Monocryl suture and surgical glue. The patient was transferred to recovery room in stable condition.
== END 2021-05-20 11:40 | disposition home or self-care (01) ==
PROVIDERS: PCP Family Medicine; Visit Provider Surgery
PROC: (CPT 49422; principal; 2021-05-20 11:00)
DX: Z49.02 Encounter for fitting and adjustment of peritoneal dialysis catheter (principal); Z86.14 Personal history of Methicillin resistant Staphylococcus aureus infection; E03.9 Hypothyroidism, unspecified; E11.22 Type 2 diabetes mellitus with diabetic chronic kidney disease; I12.0 Hypertensive chronic kidney disease with stage 5 chronic kidney disease or end stage renal disease; N18.6 End stage renal disease; Z99.2 Dependence on renal dialysis
CPT/HCPCS: 49422; 36416; 82962; J0690; J2250; J2704; J3490; J7030

== ENCOUNTER 2021-06-03 09:53 | Outpatient (CLI) | payer MEDICARE, MEDICAID, SELFPAY | END 2021-06-03 09:54 | disposition home or self-care (01) | LOC: WOUND 09:54 | PROVIDERS: PCP Family Medicine; Visit Provider Nurse Practitioner Family | DX: L89.613 Pressure ulcer of right heel, stage 3 (principal); T81.31XA Disruption of external operation (surgical) wound, not elsewhere classified, initial encounter; Y83.8 Other surgical procedures as the cause of abnormal reaction of the patient, or of later complication, without mention of misadventure at the time of the procedure; Z89.512 Acquired absence of left leg below knee | CPT/HCPCS: G0463 ==

== ENCOUNTER 2021-06-03 13:38 | Outpatient (CLI) | payer MEDICARE, MEDICAID, SELFPAY ==
--- NOTE | 2021-06-03 13:57 | XR_ITS ---
WS: [id number] Portable AP upright chest, 06/03/2021 Clinical Data: Z99.2 - Dependence on renal dialysis Comparison: Portable chest, 11/23/2020. Findings: There is a moderate left pleural effusion occupying half of the left lung. The right lung s hows no effusion. Heart is probably enlarged. The pulmonary vascularity is slightly increased. The [facility] dialysis catheter remains in the same position. XR/XR chest 2V* [id number] Impression: 1. Moderate left pleural effusion. 2. Cardiomegaly and minimal pulmonary vascular congestion.
== END 2021-06-03 13:39 | disposition home or self-care (01) ==
PROVIDERS: PCP Family Medicine; Visit Provider Surgery
DX: Z99.2 Dependence on renal dialysis (principal); J90 Pleural effusion, not elsewhere classified; I51.7 Cardiomegaly
CPT/HCPCS: 71046

== ENCOUNTER → 2021-06-04 10:42 | Day surgery (SDC) | payer MEDICARE, MEDICAID, SELFPAY ==
[2021-06-04] MEDS: alteplase 1 mg/mL SDV 2 mL 2 MG INTRACATH (11:09)
[2021-06-04 11:11] VITALS: BP 189/115; PULSE 68; RESP 18; TEMP 36.5; O2SAT 96; BMI 36.1
== END ==
PROVIDERS: PCP Family Medicine; Visit Provider Surgery
DX: Z45.2 Encounter for adjustment and management of vascular access device (principal)
CPT/HCPCS: 36593; 96374; J1642; J2997

== ENCOUNTER 2021-06-13 11:51 | Inpatient (IN) | payer MEDICARE, MEDICAID, SELFPAY ==
[2021-06-13] VITALS (9 sets, daily range): BP systolic 171–192; BP diastolic 86–120; PULSE 64–87; RESP 16–24; TEMP 36.6–37.1; O2SAT 88–100; BMI 35.8
--- NOTE | 2021-06-13 12:11 | ECG_ITS ---
[facility] Test Date: 2021-06-13 Pat Name: Alesia Shaw Department: Room: Gender: Female Manager Physical: : 1960 Requested By: Alli Gonzales Order Number: [id number] Reading MD: SARAHI TIWARI Measurements Intervals [place] Rate: 78 P: 49 ME: 213 QRS: -22 QRSD: 109 T: 121 QT: 403 QTc: 459 Interpretive Statements SINUS RHYTHM WITH FIRST DEGREE AV BLOCK POSSIBLE LEFT ATRIAL ENLARGEMENT [-0.1mV P WAVE IN V1/V2] LEFT VENTRICULAR HYPERTROPHY AND ST-T CHANGE [VOLTAGE CRITERIA PLUS ST/T ABNORMALITY] POSSIBLE SEPTAL MYOCARDIAL INFARCTION [30 ms Q WAVE IN V1/V2], PROBABLY OLD Compared to ECG 06/08/2020 20:50:08 First degree AV block now present ST (T wave) deviation now present Myocardial infarct finding now present Sinus tachycardia no longer present Electronically Signed On 06-13-2021 20:13:27 CDT by SARAHI TIWARI [id number]
--- NOTE | 2021-06-13 12:11 | XRR_ITS ---
PROCEDURE INFORMATION: Exam: XR Chest Exam date and time: 06/13/2021 12:11 PM Age: 60 years old Clinical indication: Shortness of breath; Additional info: SOB TECHNIQUE: Imaging protocol: XR of the chest. Views: 1 view. COMPARISON: CR XR chest 2V* [id number] 06/03/2021 2:04 PM FINDINGS: Tubes, catheters and devices: Unchanged position of right IJ dual lumen catheter with tip near the cavoatrial junction. Lungs: Moderate to large left pleural effusion obscuring the lung base, unchanged. The left upper lung and the right lung are well aerated. Pleural spaces: No visible pleural effusion on the right. No visible pneumothorax. Heart/Mediastinum: Cardiac silhouette probably upper normal. Bones/joints: No acute bony abnormality. XR/XR chest 1V portable [id number] IMPRESSION: No significant interval change. Moderate to large left pleural effusion with associated atelectasis. Superimposed left basilar pneumonia not excluded.
--- NOTE | 2021-06-13 12:13 | ED_ITS ---
HPI - SOB/Dyspnea General: Chief Complaint: Shortness of Breath/Dyspnea Stated Complaint: SOB Time Seen by Provider: 06/13/21 12:08 History of Present Illness: HPI Narrative: This patient is a 60-year-old female who presents to the emergency department with complaint of shortness of breath. Patient is a long history of dialysis and has a Oliveira catheter and is on her right chest. Patient states that she recently had it checked and everything looked fine.a chest x-ray they were described fluid in her lung. Believe the patient is describing a pleural effusion. Patient states that she is had issues with fluid on her lungs and lymphedema for years and has been taking dialysis but does not seem to improve it. Patient states she gets dialysis is on Wednesdays and Fridays. Patient comes in states she just cannot take this anymore wants a medical evaluation and see what can be done. Patient does not appear to be acutely sick and appears to have chronic conditions are stable. Patient states that she has had the Covid vaccine. Patient states she also had Covid 2 weeks ago. Will do medical evaluation treat as needed. MD elicited complaint: shortness of breath and cough Associated symptoms: Deny abdominal pain, chest pain, extremity pain, fever(s), lightheadedness, nausea, palpitations or vomiting Review of Systems General: Reports: 10 or more systems reviewed and unremarkable except in HPI and below Const: Denies: fever(s), chills, body aches or fatigue Eyes: Denies: change in vision or blurry vision ENMT: Denies: throat pain, hoarseness or mouth pain Card: Reports: edema; Denies: chest pain, palpitations, irregular heart rhythm, swelling of feet/ankles or lightheadedness Resp: Reports: dyspnea and non-productive cough; Denies: productive cough, wheezing or pain on inspiration GI: Denies: abdominal pain, nausea or vomiting : Denies: flank pain, difficulty voiding, dysuria, urinary frequency, urinary urgency or urinary hesitancy Musc: Denies: neck pain, back pain, extremity pain, extremity swelling, joint pain, joint swelling, joint redness, joint warmth or limited range of motion Skin/Breast: Denies: rash, pruritus, erythema or skin tenderness Neuro: Denies: headache(s), numbness in extremities or weakness in extremities Psych: Denies: anxiety or depression PFSH ED PFSH: Medical History Acute bronchitis Anemia Aortic valve endocarditis Bacteremia due to Staphylococcus EKG done this morning revealed normal sinus rhythm with a left axis deviation. Voltage area for LVH. No significant ST-T changes. 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 Protein-energy malnutrition Septic arthritis of left ankle Surgical History Central vascular catheter in place upon arrival History of cholecystectomy History of colonoscopy with polypectomy 2017 History of left below knee amputation History of lumbar surgery Due to epidural abscess in March 2018 Peritoneal dialysis catheter in place removal 05/20/21 S/P hemodialysis catheter insertion Family History Mother Cancer Uterine and breast cancer Father Diabetes Other CAD (coronary artery disease) Social History Smoking and tobacco status: never smoked Alcohol intake: current Alcohol intake frequency: holidays/special occasions only Female Reproductive History: Date of last menstrual period: 05/28/14 Physical Exam Const: COMMON NORMALS: no acute distress, average body habitus, patient oriented x3, no limitations, healthy appearing, alert and well nourished HENMT: COMMON NORMALS: normocephalic, atraumatic, hearing grossly normal bilaterally, external ears normal, EAC's normal, TM's normal bilaterally, Normal external nose present, Normal nasal mucous membranes and turbinates present, moist oral mucous membranes, oropharynx normal, dentition normal and gingiva normal HEAD & SCALP: normocephalic and atraumatic NOSE: Normal external nose present and Normal nasal mucous membranes and turbinates present EXTERNAL EAR: Yes external ears normal EXTERNAL AUDITORY CANAL: EAC's normal TYMPANIC MEMBRANE: TM's normal bilaterally Neck/C-Spine: COMMON NORMALS: full ROM, no lymphadenopathy, supple, no meningeal signs, no JVD, Thyroid normal and No carotid bruits THYROID: Thyroid normal Chest: COMMONS NORMALS: normal inspection of the chest, normal palpation of entire chest wall, normal inspection of the breasts and normal palpation of the breasts Breast/axilla inspection: Yes normal inspection of the breasts BREAST/AXILLA PALPATION: Yes normal palpation of the breasts Resp: COMMON NORMALS: normal respiratory effort, No retractions, No use of accessory muscles, clear to auscultation bilaterally and percussion normal AUSCULTATION: clear to auscultation bilaterally PERCUSSION: percussion normal Cardio: COMMON NORMALS: no JVD, regular rate, regular rhythm, S1 normal heart sound present, S2 normal heart sound present, No gallops present (Cardio), No clicks present (Cardio), No murmurs present (Cardio), No rub (Cardio) and Peripheral pulses 2+ throughout RATE: regular rate RHYTHM: regular rhythm HEART SOUNDS: S1 normal heart sound present and S2 normal heart sound present PERIPHERAL PULSES: Peripheral pulses 2+ throughout GI: COMMON NORMALS: Normal to inspection, nondistended, normoactive bowel sounds present, Soft to palpation, non-tender, No hepatosplenomegaly present, no masses and no bruits PALPATION: Yes Soft to palpation and Yes No hepatosplenomegaly present Back/Pelvis: COMMON NORMALS: thoracic and lumbar spine normal to inspection, no thoracic nor lumbar tenderness, thoraco-lumbar ROM normal and straight leg raise negative bilaterally Extremity: COMMON NORMALS: normal to inspection, full ROM, capillary refill normal, no joint enlargement, no clubbing, cyanosis or edema, no calf tenderness and no pedal edema GENERAL: Yes other findings (Chronic lymphedema to lower extremities. Patient also has below the knee a) Neuro: COMMON NORMALS: patient oriented x3 SENSORIUM/ORIENTATION: Yes alert MENINGEAL SIGNS: Yes no meningeal signs Course Reevaluation(s): Reevaluation #1: I did discuss at length with patient and family about findings and suggested patient be admitted to the hospital for further evaluation. They state understanding and agree Time: 15:41 Consultations: Consultation #1: I did discuss at length with hospitalist Dr. Hooks who is accepted this patient for admission. He will see patient write additional orders Time: 15:41 Vital Signs: Vital signs: Vital Signs Temperature 98.8 F 06/13/21 11:58 Pulse Rate 79 06/13/21 13:32 Respiratory Rate 24 H 06/13/21 13:32 Blood Pressure 185/90 06/13/21 11:58 Pulse Oximetry 100 06/13/21 13:32 MDM - SOB/Dyspnea 2 MDM Narrative: Medical decision making narrative: This patient is a 60-year-old female who presents to the emergency department with complaint of shortness of breath. Patient is a long history of dialysis and has a Oliveira catheter and is on her right chest. Patient states that she recently had it checked and everything looked fine.a chest x-ray they were described fluid in her lung. Believe the patient is describing a pleural effusion. Patient states that she is had issues with fluid on her lungs and lymphedema for years and has been taking dialysis but does not seem to improve it. Patient states she gets dialysis is on Wednesdays and Fridays. Patient comes in states she just cannot take this anymore wants a medical evaluation and see what can be done. Patient does not appear to be acutely sick and appears to have chronic conditions are stable. Patient states that she has had the Covid vaccine. Patient states she also had Covid 2 weeks ago. Will do medical evaluation treat as needed. I did discuss at length with patient and family about findings and suggested patient be admitted to the hospital for further evaluation. They state understanding and agree I did discuss at length with hospitalist Dr. Hooks who is accepted this patient for admission. He will see patient write additional orders Lab Data: Labs: Lab Results 06/13/21 06/13/21 06/13/21 Range/Units 12:43 12:45 12:45 WBC 3.8 L (4.0-10.0) 10^3/ uL RBC 3.46 L (4.1-5.3) 10^6/u L Hgb 11.4 L (11.5-15.3) g/dL Hct 35.6 L (37.0-47.0) % MCV 102.9 H (81-99) fL MCH 32.9 (28.0-34.0) pg MCHC 32.0 (30.0-36.0) g/dL RDW 16.2 H (12.1-15.1) % Plt Count 120 L (130-400) 10^3/c mm MPV 10.6 H (7.4-10.4) fL Neut % (Auto) 70.4 % Lymph % (Auto) 12.1 % [place] % (Auto) 15.0 % Eos % (Auto) 1.1 % Baso % (Auto) 1.1 % Neut # (Auto) 2.67 (1.8-7.7) 10^3/u L Lymph # (Auto) 0.5 L (0.8-4.8) 10^3/u L [place] # (Auto) 0.6 (0.2-0.9) 10^3/u L Eos # (Auto) 0.0 (0.0-0.8) 10^3/u L Baso # (Auto) 0.0 (0.0-0.1) 10^3/u L Nucleated RBC % (a uto) 0 % Nucleated RBCs # 0.0 /100WBC PT Cancelled INR Cancelled D-Dimer Cancelled Specimen Type Arterial Sample Site Brachial, left ABG pH 7.41 (7.35-7.45) ABG pCO2 46.8 H (35-45) mmHg ABG pO2 137.0 H (80.0-100.0) mmH g ABG HCO3 29.9 H (22-26) mmol/L ABG Base Excess 4.5 H (-2.0-2.0) mmol/ L [place] Test Pos Hematocrit 34.9 L (37-47) % Hgb O2 Saturation 97.5 (95-100) % Carboxyhemoglobin 1.3 (0.4-20.1) %THgb Methemoglobin 0.8 (0.4-1.5) % Total Hemoglobin 11.4 L (12-16) g/dL O2 Delivery Device Nc [employer] Portal Developer ID [email or web address] Sodium Potassium Chloride Carbon Dioxide Anion Gap BUN Creatinine GFR Calculation Glucose Calculated Osmolal ity Calcium Magnesium Total Bilirubin AST ALT Alkaline Phosphata se NT-Pro-B Natriuret Pep Total Protein Albumin Globulin SARS-CoV-2 Ag (Rap id) (Negative) 06/13/21 06/13/21 06/13/21 Range/Units 12:45 12:45 13:13 WBC (4.0-10.0) 10^3/ uL RBC (4.1-5.3) 10^6/u L Hgb (11.5-15.3) g/dL Hct (37.0-47.0) % MCV (81-99) fL MCH (28.0-34.0) pg MCHC (30.0-36.0) g/dL RDW (12.1-15.1) % Plt Count (130-400) 10^3/c mm MPV (7.4-10.4) fL Neut % (Auto) % Lymph % (Auto) % [place] % (Auto) % Eos % (Auto) % Baso % (Auto) % Neut # (Auto) (1.8-7.7) 10^3/u L Lymph # (Auto) (0.8-4.8) 10^3/u L [place] # (Auto) (0.2-0.9) 10^3/u L Eos # (Auto) (0.0-0.8) 10^3/u L Baso # (Auto) (0.0-0.1) 10^3/u L Nucleated RBC % (a uto) % Nucleated RBCs # /100WBC PT INR D-Dimer Specimen Type Sample Site ABG pH (7.35-7.45) ABG pCO2 (35-45) mmHg ABG pO2 (80.0-100.0) mmH g ABG HCO3 (22-26) mmol/L ABG Base Excess (-2.0-2.0) mmol/ L [place] Test Hematocrit (37-47) % Hgb O2 Saturation (95-100) % Carboxyhemoglobin (0.4-20.1) %THgb Methemoglobin (0.4-1.5) % Total Hemoglobin (12-16) g/dL O2 Delivery Device [employer] Portal Developer ID Sodium Cancelled 135 L Potassium Cancelled 4.7 Chloride Cancelled 96 L Carbon Dioxide Cancelled 28 Anion Gap Cancelled 15.7 BUN Cancelled 16 Creatinine Cancelled 4.4 H GFR Calculation Cancelled 10.3 L Glucose Cancelled 96 Calculated Osmolal ity Cancelled 281 L Calcium Cancelled 8.4 L Magnesium Cancelled 2.0 Total Bilirubin Cancelled 0.6 AST Cancelled 18 ALT Cancelled 11 Alkaline Phosphata se Cancelled 174 H NT-Pro-B Natriuret Pep Cancelled > 21649 H Total Protein Cancelled 7.6 Albumin Cancelled 3.6 Globulin Cancelled 4.0 SARS-CoV-2 Ag (Rap id) Negative (Negative) 06/13/21 Range/Units 13:13 WBC (4.0-10.0) 10^3/ uL RBC (4.1-5.3) 10^6/u L Hgb (11.5-15.3) g/dL Hct (37.0-47.0) % MCV (81-99) fL MCH (28.0-34.0) pg MCHC (30.0-36.0) g/dL RDW (12.1-15.1) % Plt Count (130-400) 10^3/c mm MPV (7.4-10.4) fL Neut % (Auto) % Lymph % (Auto) % [place] % (Auto) % Eos % (Auto) % Baso % (Auto) % Neut # (Auto) (1.8-7.7) 10^3/u L Lymph # (Auto) (0.8-4.8) 10^3/u L [place] # (Auto) (0.2-0.9) 10^3/u L Eos # (Auto) (0.0-0.8) 10^3/u L Baso # (Auto) (0.0-0.1) 10^3/u L Nucleated RBC % (a uto) % Nucleated RBCs # /100WBC PT 15.60 H INR 1.20 D-Dimer 2.70 H Specimen Type Sample Site ABG pH (7.35-7.45) ABG pCO2 (35-45) mmHg ABG pO2 (80.0-100.0) mmH g ABG HCO3 (22-26) mmol/L ABG Base Excess (-2.0-2.0) mmol/ L [place]il Test Hematocrit (37-47) % Hgb O2 Saturation (95-100) % Carboxyhemoglobin (0.4-20.1) %THgb Methemoglobin (0.4-1.5) % Total Hemoglobin (12-16) g/dL O2 Delivery Device [employer] Portal Developer ID Sodium Potassium Chloride Carbon Dioxide Anion Gap BUN Creatinine GFR Calculation Glucose Calculated Osmolal ity Calcium Magnesium Total Bilirubin AST ALT Alkaline Phosphata se NT-Pro-B Natriuret Pep Total Protein Albumin Globulin SARS-CoV-2 Ag (Rap id) (Negative) Imaging Data^: CXR: Attestation: I personally reviewed and interpreted this imaging study as follows: Radiologist's impression: FINDINGS: Tubes, catheters and devices: Unchanged position of right IJ dual lumen catheter with tip near the cavoatrial junction. Lungs: Moderate to large left pleural effusion obscuring the lung base, unchanged. The left upper lung and the right lung are well aerated. Pleural spaces: No visible pleural effusion on the right. No visible pneumothorax. Heart/Mediastinum: Cardiac silhouette probably upper normal. Bones/joints: No acute bony abnormality. XR/XR chest 1V portable [id number] IMPRESSION: No significant interval change. Moderate to large left pleural effusion with associated atelectasis. Superimposed left basilar pneumonia not excluded. CT Chest: Attestation: I personally reviewed and interpreted this imaging study as follows: Radiologist's impression: FINDINGS: Tubes, catheters and devices: Right IJ dual lumen catheter with tip within the distal SVC. Lungs and pleural spaces: Moderate to large left basilar pleural effusion with associated lower lobe atelectasis/consolidation. Mild right basilar atelectasis with trace layering effusion. No pneumothorax. Central airways normal caliber and patent. Heart: Upper normal. Coronary artery calcifications. Trace pericardial effusion. Aorta: Unremarkable. No aortic aneurysm. Lymph nodes: Nonspecific scattered enlarged mediastinal nodes which are new from prior. Largest nodes include 20 mm short axis subcarinal and 17 mm right lower paratracheal. Bones/joints: No acute or aggressive osseous lesion. Soft tissues: Unremarkable. Upper abdomen: No acute findings within the included upper abdomen. Extensive arterial calcifications. Unchanged bilateral adrenal thickening. CT/CT chest wo con [id number] IMPRESSION: 1. Moderate to large left pleural effusion with associated lower lobe atelectasis. Superimposed pneumonia not excluded. Trace right effusion. 2. Nonspecific enlarged mediastinal nodes, possibly reactive. EKG Data^: EKG 1: Attestation: I personally reviewed and interpreted this EKG as follows: EKG Interpretation Date: 06/13/21 EKG interpretation time: 12:20 Prior EKG tracings: not available for review Interpretation: Sinus rhythm with first-degree AV block left atrial enlargement left ventricle hypertrophy with nonspecific ST changes. Heart rate 78 Discharge Plan Discharge Patient Disposition: Placed in Observation Clinical Impression: Increasing shortness of breath, Diabetes, S/P hemodialysis catheter insertion, ESRD (end stage renal disease), Large pleural effusion Coding Level of Care Code ED Telemetry Nurse for Chg Fwd Exam Comprehensive
--- NOTE | 2021-06-13 12:36 | PC.PHAR ---
PT STATES SHE TAKES CARE OF HER OWN MEDICATIONS-PT STATES SHE HASNT TAKEN [facility] PACKET FOR A WHILE EXT MED HISTORY SHOWS LAST FILLED 04/28/21 30D/S-PT STATES SHE NEVER PICKED UP A CLONIDINE 0.2MG/24HOUR PATCH EXT MED HISTORY SHOWS LAST FILLED ON 05/21/21 -PT STATES SHE WAS TAKING CLONIDINE 0.2MG TABS BUT STATES THAT WAS DCED EXT MED HISTORY SHOWS LAST FILLED ON 05/14/21 30D/S 0.2MG TID- PT STATES SHE DOESNT TAKE INSULIN ANYMORE STATES SHE HASNT TAKEN SINCE NOV OR DEC EXT MED HISTORY SHOWS NOVOLOG FLEXPEN LAST FILLED ON 01/22/21 30D/S FOR SS QID-PT STATES SHE ONLY TAKES THE MEDICATIONS ENTERED
[2021-06-13 12:55] LABS: ABG PCO2 46.8 mmHg (35-45); ABG PH Result 7.41 (7.35-7.45); Arterial Blood Gas Hematocrit 34.9 % (37-47); Base Excess ABG 4.5 mmol/L (-2.0-2.0); Blood Gas Allen Test Pos; Blood Gas Sample Site Brachial, left; Blood Gas Sample Type Arterial; Carboxyhemoglobin 1.3 %THgb (0.4-20.1); HCO3 ABG 29.9 mmol/L (22-26); HGB O2 Sat 97.5 % (95-100); Methemoglobin 0.8 % (0.4-1.5); Oxygen Device NC; Total Hemoglobin 11.4 g/dL (12-16)
[2021-06-13 13:00] LABS: Basophils % 1.1 %; Eosinophils % 1.1 %; Hematocrit 35.6 % (37.0-47.0); Hemoglobin 11.4 g/dL (11.5-15.3); Lymphocytes # 0.5 10^3/uL (0.8-4.8); Lymphocytes % 12.1 %; Mean Corpuscular Hemoglobin 32.9 pg (28.0-34.0); Mean Corpuscular Volume 102.9 fL (81-99); Mean Platelet Volume 10.6 fL (7.4-10.4); Monocytes # 0.6 10^3/uL (0.2-0.9); Neutrophils # 2.67 10^3/uL (1.8-7.7); Neutrophils % 70.4 %; Nucleated Red Blood Cells % 0 %; Platelet Count 120 10^3/cmm (130-400); Red Blood Count 3.46 10^6/uL (4.1-5.3); Red Cell Distribution Width 16.2 % (12.1-15.1); White Blood Count 3.8 10^3/uL (4.0-10.0)
[2021-06-13] MEDS: ondansetron 2 mg/ML SDV 2 mL 4 MG IVP (13:46)
--- NOTE | 2021-06-13 14:06 | CTR_ITS ---
PROCEDURE INFORMATION: Exam: CT Chest Without Contrast; Diagnostic Exam date and time: 06/13/2021 2:06 PM Age: 60 years old Clinical indication: Shortness of breath; Prior surgery; Surgery type: Dialysis cath. ; Patient HX: SOB. Pleural effusion on cxr. ; Additional info: Pleural effusion TECHNIQUE: Imaging protocol: Diagnostic computed tomography of the chest without contrast. Radiation optimization: All CT scans at this facility use at least one of these dose optimization techniques: automated exposure control; mA and/or kV adjustment per patient size (includes targeted exams where dose is matched to clinical indication); or iterative reconstruction. COMPARISON: CT chest abd pel wo con 05/13/2020 8:11 AM RADIATION DOSE METRICS: Total DLP (mGy-cm): 882.7 FINDINGS: Tubes, catheters and devices: Right IJ dual lumen catheter with tip within the distal SVC. Lungs and pleural spaces: Moderate to large left basilar pleural effusion with associated lower lobe atelectasis/consolidation. Mild right basilar atelectasis with trace layering effusion. No pneumothorax. Central airways normal caliber and patent. Heart: Upper normal. Coronary artery calcifications. Trace pericardial effusion. Aorta: Unremarkable. No aortic aneurysm. Lymph nodes: Nonspecific scattered enlarged mediastinal nodes which are new from prior. Largest nodes include 20 mm short axis subcarinal and 17 mm right lower paratracheal. Bones/joints: No acute or aggressive osseous lesion. Soft tissues: Unremarkable. Upper abdomen: No acute findings within the included upper abdomen. Extensive arterial calcifications. Unchanged bilateral adrenal thickening. CT/CT chest wo con [id number] IMPRESSION: 1. Moderate to large left pleural effusion with associated lower lobe atelectasis. Superimposed pneumonia not excluded. Trace right effusion. 2. Nonspecific enlarged mediastinal nodes, possibly reactive. Radiation Dose CTDIVOL = (mGy): DLP = 882.7 (mGy-cm)
[2021-06-13 14:14] LABS: SARS Covid-2 Antigen Negative (Negative)
[2021-06-13 14:37] LABS: Alanine Aminotransferase 11 U/L (0-33); Albumin Level 3.6 g/dL (3.5-5.2); Alkaline Phosphatase 174 IU/L (35-105); Anion Gap 15.7 (5-19); Aspartate Amino Transferase 18 U/L (0-32); Blood Urea Nitrogen 16 mg/dL (6-20); Calcium 8.4 mg/dL (8.5-10.5); Carbon Dioxide 28 mmol/L (22-29); Chloride 96 mmol/L (98-107); Glomerular Filtration Rate 10.3 mL/min (90-130); Glucose 96 mg/dL (65-115); Osmolality Calculated 281 mOsm/kg (285-295); Potassium 4.7 mmol/L (3.5-5.1); Sodium 135 mmol/L (136-145); Total Bilirubin 0.6 mg/dL (0.15-1.2); Total Protein 7.6 g/dL (6.6-8.7)
[2021-06-13 15:02] LABS: NT Pro B Type Natriuretic Pept > 70000 pg/mL (0-125)
--- NOTE | 2021-06-13 16:25 | PM.HP ---
Providers/Chief Complaint Primary Care Provider: Karen Bear MD Chief Complaint: SOB History of Present Illness Alesia Shaw is a 60 year old female past medical history of CKD stage IV on hemodialysis Monday, type 2 diabetes mellitus, hypothyroidism, lymphedema, history of MRSA infection, history of aortic valve endocarditis, history of diastolic heart failure, Charcot's foot, preserved ejection fraction heart failure presented today with chief complaint of shortness of breath. Patient is stating that she has chronic shortness of breath but never required any oxygen in the past. Her peritoneal dialysis catheter got infected then she was transitioned to hemodialysis from December 03. Dr. Jorgensen placed her dialysis catheter which was recently evaluated by Dr. Medina, there is no plan of replacing the catheter, there was some concern regarding Cathflo. For last few months her shortness of breath has been getting worse, recently she has not noticed any fever, sinusitis, allergies, she is endorsing orthopnea, PND and getting short of breath easily with minimal exertion. The symptoms are associated with nausea and dry heaves. She has been producing yellow-colored sputum as well. She is a non-smoker. She has not been vaccinated for COVID-19. And she is not planning for vaccination in future as well. Her symptoms are also associated with left-sided chest pressure which she feels on laying flat. Her last dialysis session was on Monday. She decided to come to the hospital for further evaluation for worsening of her shortness of breath Diagnosis in the ER revealed hypertensive urgency, she was requiring 2 L of oxygen at rest however saturating 100%, CT chest revealed left-sided pleural effusion high D-dimer, multiple scattered lymph nodes, mediastinal lymphadenopathy, no active signs of consolidation Considering symptomatic shortness of breath she will need thoracentesis Review of Systems Const: Reports: chills, change in appetite, change in weight and fatigue Eyes: Denies: change in vision ENMT: Denies: throat pain Card: Reports: chest pain, dyspnea on exertion and orthopnea Resp: Reports: dyspnea and productive cough GI: Reports: abdominal pain and nausea : Denies: flank pain Musc: Denies: neck pain Skin/Breast: Reports: lesions Neuro: Denies: headache(s) Psych: Reports: anxiety Endo: Denies: polyuria Jimmy/Lymph: Denies: easy bruising All/Imm: Denies: urticaria Medications/Allergies Home Medications Medication Instructions Recorded Confirmed Last Taken Type Stump Research Lab Assistant #1 ea 01/12/21 06/13/21 Unknown Rx carvedilol [Coreg] 25 mg PO BID 05/19/21 06/13/21 06/12/21 History hydrocodone-acetaminophen 1 tab PO Q6H PRN #20 tab 05/20/21 06/13/21 Unknown Rx ondansetron HCl [Zofran] 4 mg PO Q6H PRN #20 tab 05/20/21 06/13/21 Unknown Rx promethazine-DM 6.25 mg-15 mg/5 mL 5 ml PO Q6H PRN #160 ml 06/07/21 06/13/21 Unknown Rx oral syrup albuterol sulfate [ProAir HFA] 2 puff INHALATION Q4H PRN 06/13/21 06/13/21 Unknown History docusate sodium [Colace] 100 mg PO BID PRN 06/13/21 06/13/21 Unknown History doxazosin [Cardura] 4 mg PO BID 06/13/21 06/13/21 06/13/21 10:00 History levothyroxine [Synthroid] 150 mcg PO QAM 06/13/21 06/13/21 06/13/21 History promethazine 25 mg PO Q6H PRN 06/13/21 06/13/21 Unknown History vit B,G-WI-mknb-selen-vit D3-E 1 tab PO DAILY 06/13/21 06/13/21 06/12/21 History [RenaPlex-D] Allergies Allergy/AdvReac Type Severity Reaction Status Date / Time Iodinated Contrast Media Allergy ALGY-Hives Verified 06/13/21 11:58 PFSH Acute PFSH: Medical History (Updated 06/13/21 @ 16:54 by Ramone Hooks MD) Acute bronchitis Anemia Aortic valve endocarditis Bacteremia due to Staphylococcus EKG done this morning revealed normal sinus rhythm with a left axis deviation. Voltage area for LVH. No significant ST-T changes. Charcot's joint of foot in type 2 diabetes mellitus Charcot's joint, left ankle and foot Congestive heart failure Diabetes Diabetes mellitus type 2, insulin-dependent. 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 Protein-energy malnutrition Septic arthritis of left ankle Surgical History (Updated 06/13/21 @ 16:54 by Ramone Hooks MD) Central vascular catheter in place upon arrival History of cholecystectomy History of colonoscopy with polypectomy 2017 History of left below knee amputation History of lumbar surgery Due to epidural abscess in March 2018 Peritoneal dialysis catheter in place removal 05/20/21 S/P hemodialysis catheter insertion Status post below-knee amputation of left lower extremity Family History Mother Cancer Uterine and breast cancer Father Diabetes Other CAD (coronary artery disease) Social History Smoking and tobacco status: never smoked Alcohol intake: current Alcohol intake frequency: holidays/special occasions only Female Reproductive History: Date of last menstrual period: 05/28/14 Vitals/I&O/Wt Last Vital Signs Temp 98.8 F 06/13/21 11:58 Pulse 78 06/13/21 16:13 Resp 23 H 06/13/21 16:13 BP 187/120 06/13/21 16:13 Pulse Ox 100 06/13/21 16:13 Weight last 48 hrs Weight 100.698 kg Physical Exam Narrative: EXAM NARRATIVE: Elderly female who was sitting in her bed saturating 100% on 2 L nasal cannula Has mild conversational dyspnea No active chest pain S1, S2 sinus rhythm no murmur appreciated Bilateral diminished breath sounds however no active wheezing Abdomen soft nontender some soreness secondary to excessive coughing No signs of peritonitis Right lower extremity lymphedema, Charcot foot EOMI, PERRLA Awake alert oriented x3 GCS 15 Right IJ dialysis catheter Appropriate mood and affect Data : 06/13/21 12:45 06/13/21 13:13 A&P Assessment and plan (1) Increasing shortness of breath: Status: Acute (2) Large pleural effusion: Status: Acute (3) Difficult intravenous access: Status: Acute (4) Neuropathy: Status: Acute (5) Hypertension: Status: Acute Qualifiers: Hypertension type: essential hypertension Qualified Code(s): I10 - Essential (primary) hypertension (6) ESRD (end stage renal disease): Status: Acute Additional A&P Information Symptomatic large pleural effusion Multiple mediastinal lymphadenopathy evident on CT scan Etiology most likely fluid overload due to end-stage renal disease with underlying heart failure Therapeutic and diagnostic thoracentesis in the morning Will request cytology as well I will keep her on Levaquin, no active consolidation evident on CT scan but is hard to delineate considering large pleural effusion however she is afebrile without leukocytosis End stage Renal disease last dialysis session was on Monday, consulted Dr. Yin Updated and notified, no acute indication of dialysis Hemoglobin stable Anemia: Hemoglobin stable Type 2 diabetes: Patient has been taken off insulin Preserved ejection fraction heart failure with underlying lymphedema No acute exacerbation Lymphedema of right leg without any active signs of cellulitis, follows up with wound care Does have signs of venous stasis dermatitis Full code Renal dialysis diet DVT prophylaxis currently on hold in anticipation of thoracentesis tomorrow She has high D-dimer, would recommend contrast CTA chest to rule out PE before dialysis She will need outpatient follow-up with pulmonology for mediastinal lymphadenopathy SCDs Attestations Medical Necessity Statement*: Anticipating discharge within 48 hours will need thoracentesis in the morning for symptomatic pleural effusion Time Spent in Patient Care: 16 - 35 minutes Coding Level of Care Code Acute Electronic Equipment Maint Tech for Chg Fwd Diagnoses Increasing shortness of breath R06.02 Large pleural effusion J90 Difficult intravenous access Z78.9 Neuropathy G62.9 Hypertension I10 Hypertension type: essential hypertension ESRD (end stage renal disease) N18.6
[2021-06-13] MEDS: metoprolol tartrate 1 mg/1 mL SDV 5 mL 5 MG IV (17:20)
[2021-06-13] MEDS: carvedilol 25 mg Tablet PO (18:47)
[2021-06-14] VITALS (11 sets, daily range): BP systolic 156–167; BP diastolic 69–83; PULSE 62–68; RESP 14–25; TEMP 36.6–37; O2SAT 95–99
[2021-06-14] MEDS: levothyroxine 150 mcg Tablet PO (05:11)
[2021-06-14] MEDS: levoFLOXacin 750 mg Tablet PO (05:11)
[2021-06-14 06:25] LABS: Basophils % 0.7 %; Eosinophils # 0.1 10^3/uL (0.0-0.8); Eosinophils % 1.9 %; Hemoglobin 10.6 g/dL (11.5-15.3); Lymphocytes # 0.8 10^3/uL (0.8-4.8); Lymphocytes % 19.5 %; Mean Corpuscular HGB Conc 31.2 g/dL (30.0-36.0); Mean Corpuscular Hemoglobin 32.7 pg (28.0-34.0); Mean Corpuscular Volume 104.9 fL (81-99); Mean Platelet Volume 10.6 fL (7.4-10.4); Monocytes # 0.6 10^3/uL (0.2-0.9); Monocytes % 13.4 %; Neutrophils # 2.64 10^3/uL (1.8-7.7); Neutrophils % 64.3 %; Nucleated Red Blood Cells % 0 %; Platelet Count 132 10^3/cmm (130-400); Red Blood Count 3.24 10^6/uL (4.1-5.3); White Blood Count 4.1 10^3/uL (4.0-10.0)
[2021-06-14 06:57] LABS: INR 1.17 (0.8-1.2)
[2021-06-14 07:00] LABS: Anion Gap 13.6 (5-19); Blood Urea Nitrogen 21 mg/dL (6-20); Calcium 8.3 mg/dL (8.5-10.5); Carbon Dioxide 28 mmol/L (22-29); Chloride 99 mmol/L (98-107); Glomerular Filtration Rate 8.7 mL/min (90-130); Glucose 101 mg/dL (65-115); Lactate Dehydrogenase 161 U/L (135-214); Osmolality Calculated 285 mOsm/kg (285-295); Potassium 4.6 mmol/L (3.5-5.1); Sodium 136 mmol/L (136-145)
--- NOTE | 2021-06-14 08:00 | US_ITS ---
WS: [id number] ULTRASOUND-GUIDED THORACENTESIS CLINICAL INFORMATION: Left-sided pleural effusion, symptom COMPARISON: None. PROCEDURE: Informed consent: The risks, benefits, and alternatives of the procedure were discussed with the caridad ent. Verbal and written consent was obtained. Timeout: A timeout was performed to confirm the correct patient, procedure, and site. Site: Left chest Preparation: A suitable skin site was identified. The patient was prepped and draped in usual sterile fashion. Lidocaine 1% was used for local anesthesia. Catheter: 4 [place] One-Step catheter. Fluid Volume: 1100 ml Color: Yellow 50 cc sent to the laboratory for requested tests. Remainder discarded safely. Complications: None US/ thoracentesis [id number] IMPRESSION: Uncomplicated ultrasound-guided left thoracentesis. 1100 cc yellow fluid remove d.
--- NOTE | 2021-06-14 08:00 | USCV_ITS ---
Alesia hSaw Age: 60 Gender: F : 1960 Exam Date: 06/14/2021 12:00 Ordering Phys: Ramone Hooks MD Technologist: Jarod Quick Exam Location: [facility] [place] Indication: RLE PAIN HISTORY: Lower extremity pain. PROCEDURES: Venous duplex imaging was performed in only the right lower extremity. The following venous structures were evaluated: common femoral vein, profunda vein, proximal portion of the greater saphenous vein, superficial femoral vein, and the popliteal vein. In addition, the posterior tibial and peroneal trunk were evaluated. Serial compression, augmentation maneuvers, and spectral Doppler flow evaluation were performed. FINDINGS: No evidence of DVT seen in any vessel visualized at this time. CONCLUSIONS No evidence of right lower extremity DVT. All Washington MD (Electronically Signed) Final Date: 14 June 2021 17:29 S
[2021-06-14] MEDS: doxazosin 4 mg Tablet PO ×2 (08:35→18:37)
[2021-06-14] MEDS: carvedilol 25 mg Tablet PO ×2 (08:36→18:36)
[2021-06-14] MEDS: fluticasone nasal spray 16gm Btl 2 SPRAY NASAL (10:30)
--- NOTE | 2021-06-14 11:42 | XR_ITS ---
WS: [id number] CHEST XRAY TECHNIQUE: Portable chest. CLINICAL INFORMATION: post thoracentesis COMPARISON: June 13, 2021 FINDINGS: Status post left thoracentesis. No pneumothorax. Improved left pleural effusion. Persistent infiltrate with consolidation left lower lobe. Heart: Cardiomegaly. Right central venous catheter with tip in the SVC. Lungs: No pneumothorax. Improved left pleural effusion with persistent infiltrate and consolidation l eft lower lobe. Right lung is well aerated. Bones: Normal visualized bony structures. XR/XR chest 1V portable [id number] IMPRESSION: 1. Status post left thoracentesis. No pneumothorax. 2. Improved left pleural effusion with persistent consolidation left lower lob e. 3. Right central venous catheter with tip in SVC.
--- NOTE | 2021-06-14 12:25 | PM.PN ---
Subjective Subjective: Interval history: Patient was seen and examined this morning, shortness of breath has improved slightly. Currently she denies any chest pain, nausea vomiting, due for thoracentesis today. Vitals and labs have been reviewed. Medications: Reviewed: Yes Vitals/I&O/Wt Last Vital Signs Temp 98.2 F 06/14/21 08:00 Pulse 65 06/14/21 08:00 Resp 14 06/14/21 08:00 BP 163/79 06/14/21 08:00 Pulse Ox 97 06/14/21 08:00 06/13/21 06/14/21 06/14/21 22:59 06:59 14:59 Intake Total 250 / 250 150 / 400 240 / 240 Balance 250 / 250 150 / 400 240 / 240 Weight last 48 hrs Weight 100.698 kg Physical Exam Const: COMMON NORMALS: patient oriented x3 Resp: EFFORT & INSPECTION: Yes symmetric chest movement OTHER: Diminished air entry bilaterally more on the left lung. Cardio: COMMON NORMALS: regular rate, regular rhythm, S1 normal heart sound present, S2 normal heart sound present, No gallops present (Cardio), No murmurs present (Cardio), No rub (Cardio) and Peripheral pulses 2+ throughout RATE: regular rate RHYTHM: regular rhythm HEART SOUNDS: S1 normal heart sound present and S2 normal heart sound present PERIPHERAL PULSES: Peripheral pulses 2+ throughout GI: COMMON NORMALS: Normal to inspection, nondistended, normoactive bowel sounds present, Soft to palpation, non-tender, No hepatosplenomegaly present and no masses AUSCULTATION: Yes normoactive bowel sounds PALPATION: Yes Soft to palpation and Yes No hepatosplenomegaly present RECTAL EXAM: deferred Extremity: COMMON NORMALS: no clubbing, cyanosis or edema and no pedal edema NARRATIVE EXTREMITY EXAM: S/P LT BKA . Lymphedema of the right lower extremity. Neuro: COMMON NORMALS: patient oriented x3 Data : 06/14/21 06:06 06/14/21 06:06 A&P Assessment and plan (1) Increasing shortness of breath: Status: Acute (2) Large pleural effusion: Status: Acute (3) Difficult intravenous access: Status: Acute (4) Neuropathy: Status: Acute (5) Hypertension: Status: Acute Qualifiers: Hypertension type: essential hypertension Qualified Code(s): I10 - Essential (primary) hypertension (6) ESRD (end stage renal disease): Status: Acute Additional A&P Information Symptomatic large pleural effusion Multiple mediastinal lymphadenopathy evident on CT scan Etiology most likely fluid overload due to end-stage renal disease with underlying heart failure Therapeutic and diagnostic thoracentesis in the morning Will request cytology as well I will keep her on Levaquin, no active consolidation evident on CT scan but is hard to delineate considering large pleural effusion however she is afebrile without leukocytosis End stage Renal disease last dialysis session was on Monday, consulted Dr. Yin Updated and notified, no acute indication of dialysis Hemoglobin stable Anemia: Hemoglobin stable Type 2 diabetes: Patient has been taken off insulin Preserved ejection fraction heart failure with underlying lymphedema No acute exacerbation Lymphedema of right leg without any active signs of cellulitis, follows up with wound care Does have signs of venous stasis dermatitis Full code Renal dialysis diet DVT prophylaxis currently on hold in anticipation of thoracentesis tomorrow She has high D-dimer, would recommend contrast CTA chest to rule out PE before dialysis She will need outpatient follow-up with pulmonology for mediastinal lymphadenopathy SCDs Attestations Medical Necessity Statement*: Patient needs to be in hospital for management of symptomatic large left pleural effusion. Coding Level of Care Code Acute Presales Senior Specialist for Chg Fwd Diagnoses Increasing shortness of breath R06.02 Large pleural effusion J90 Difficult intravenous access Z78.9 Neuropathy G62.9 Hypertension I10 Hypertension type: essential hypertension ESRD (end stage renal disease) N18.6
[2021-06-14 12:50] LABS: Appearance, Pleural Fluid CLEAR (CLEAR); Color, Pleural Fluid Yellow (Pale Yellow)
[2021-06-14 13:07] LABS: LDH Pleural Fluid 127 U/L
[2021-06-14 13:11] LABS: Total Protein Body Fluid 4.1 g/dL; Triglycerides Body Fluid 19 mg/dL (0-150)
[2021-06-14 13:25] LABS: Mononuclear %, Pleural Fluid 92 %; Mononuclear, Pleural Fluid # 0.093 10^3/uL; Polynuclear Cells, Pleural # 0.008 10^3/uL; Polynuclear Cells, Pleural % 8 %
[2021-06-14 14:24] LABS: Left Pleural Fluid Analysis Left Lung
[2021-06-14 14:29] LABS: PATH Referal YES; PATH Referral YES
--- NOTE | 2021-06-14 14:46 | P.PN_ITS ---
Subjective Subjective: Interval history: Ms Shaw presents from facility with shortness of breath. CT scan demonstrated left-sided pleural effusion. She underwent thoracentesis today and has been some improvement in her shortness of breath, she just has a slight cough. She last had hemodialysis on Monday. Uneventful session. She does note that they take off relatively low amounts of ultrafiltrate when they do dialysis. She is receiving dialysis via a tunneled dialysis catheter. This is been functioning well. She has some mild chronic lymphedema and her leg. No other symptoms of hypervolemia at this time. No uremic symptoms. Blood pressure was elevated in the emergency room, and after some up titration of her medications her blood pressure did come down somewhat but is still a little elevated at 160 systolic. Vitals/I&O/Wt Last Vital Signs Temp 98.2 F 06/14/21 08:00 Pulse 65 06/14/21 13:18 Resp 16 06/14/21 13:18 BP 163/79 06/14/21 08:00 Pulse Ox 99 06/14/21 13:18 06/13/21 06/14/21 06/14/21 22:59 06:59 14:59 Intake Total 250 / 250 150 / 400 240 / 240 Balance 250 / 250 150 / 400 240 / 240 Weight last 48 hrs Weight 100.698 kg Physical Exam Narrative: EXAM NARRATIVE: Constitutional: Awake, comfortable HEENT: Wet mucosa, no jvp, non icteric Lungs: Bilaterally clear without discernible wheeze, rales in all lung zones CVS: S1 S2, no murmurs Abdo: Soft, BS ok Ext 4: Minimal edema, peripheral perfusion with no cyanosis Neurological: Grossly non-focal Data : 06/14/21 06:06 06/14/21 06:06 A&P Additional A&P Information 1. ESRD Dialysis pending for today, I will use a 2K bath, ultrafiltration goal of 3 L if we can get this. Treatment time of 3.5 hours. Continue Monday, Monday, Monday schedule. Dose medication for GFR less than 15 on dialysis. 2. Shortness of breath and pleural effusion Status post thoracentesis. Pending the results of the analysis. It may be worth trying to drive down and challenge her dry weight in effort to reduce intravascular volume. 3. Hypertension. Pending 3 L of ultrafiltration on dialysis today, further medication titration following this. Continue home medications. 4. Chronic ESRD issues These to be handled in the outpatient dialysis clinic as part of standard monthly care. João Vazquez MD Nephrology [phone] Patient seen and examined via telemedicine, with the assistance of the bedside RN > 25 min spent in evaluation and mgmt of patient Attestations Medical Necessity Statement*: eval for ESRD mgmt Coding Level of Care Code Acute Commercial Pest Control Representative for Chg Jay
[2021-06-14] MEDS: guaiFENesin 100 mg/5 mL UDC 10 mL 200 MG PO (18:36)
--- NOTE | 2021-06-14 19:14 | PC.HD ---
UF off briefly during treatment d/t cramping, back on at lower rate but pt developed cramping again and asked to sign off [address] Vazquez notified.
--- NOTE | 2021-06-14 19:30 | PC.NURSE ---
Patient left unit at 1450 with dialysis nurse. Transported on her bed. Patient returned to CSU at 1815. Patient's at bedside. Patient given dinner.
--- NOTE | 2021-06-14 21:15 | PC.NURSE ---
Patient has soiled dressings to left stump and right heel. There is currently no wound care/dressing change order. Patient states her has the supplies and that wound care clinic will have instructions for it. Dr. Hooks notified. Ordered to change dressings. Wet to dry gauze on both wounds. Patient refused Kerlix, stating the wrap irritates her skin. She asked that the gauze be taped, like her does it.
[2021-06-15] VITALS (11 sets, daily range): BP systolic 134–182; BP diastolic 88–105; PULSE 62–72; RESP 14–23; TEMP 36.6–36.8; O2SAT 94–100
--- NOTE | 2021-06-15 00:56 | PC.NURSE ---
Patient is currently resting with eyes closed. Will monitor.
[2021-06-15 04:28] LABS: Basophils % 0.8 %; Eosinophils # 0.1 10^3/uL (0.0-0.8); Eosinophils % 1.6 %; Hematocrit 31.9 % (37.0-47.0); Hemoglobin 9.8 g/dL (11.5-15.3); Lymphocytes # 0.9 10^3/uL (0.8-4.8); Lymphocytes % 23.2 %; Mean Corpuscular HGB Conc 30.7 g/dL (30.0-36.0); Mean Corpuscular Hemoglobin 32.5 pg (28.0-34.0); Mean Corpuscular Volume 105.6 fL (81-99); Mean Platelet Volume 10.4 fL (7.4-10.4); Monocytes # 0.4 10^3/uL (0.2-0.9); Monocytes % 11.7 %; Neutrophils # 2.28 10^3/uL (1.8-7.7); Neutrophils % 62.4 %; Nucleated Red Blood Cells % 0 %; Platelet Count 118 10^3/cmm (130-400); Red Blood Count 3.02 10^6/uL (4.1-5.3); White Blood Count 3.7 10^3/uL (4.0-10.0)
[2021-06-15 04:50] LABS: Alanine Aminotransferase 8 U/L (0-33); Alkaline Phosphatase 153 IU/L (35-105); Anion Gap 12.3 (5-19); Aspartate Amino Transferase 17 U/L (0-32); Blood Urea Nitrogen 16 mg/dL (6-20); Calcium 7.8 mg/dL (8.5-10.5); Carbon Dioxide 26 mmol/L (22-29); Chloride 98 mmol/L (98-107); Globulin 3.5 g/dL (1.3-4.6); Glomerular Filtration Rate 11.8 mL/min (90-130); Glucose 86 mg/dL (65-115); Osmolality Calculated 274 mOsm/kg (285-295); Potassium 4.3 mmol/L (3.5-5.1); Sodium 132 mmol/L (136-145); Total Bilirubin 0.5 mg/dL (0.15-1.2); Total Protein 6.5 g/dL (6.6-8.7)
[2021-06-15] MEDS: FUROsemide 10 mg/mL SDV 4mL 40 MG IVP (06:00)
[2021-06-15] MEDS: levothyroxine 150 mcg Tablet PO (06:00)
--- NOTE | 2021-06-15 08:56 | USCV_ITS ---
Alesia Shaw Age: 60 Gender: F : 1960 Exam Date: 06/15/2021 15:32 Ordering Phys: Ron Ca MD Technologist: Exam Location: [facility] – [place] Indication: Assess LV function BP: 134 / 105 HR: 67 Rhythm: Sinus Technical Quality: Good MEASUREMENTS (Male / Female) Normal Values 2D ECHO LV Diastolic Diameter PLAX 5.2 cm 4.2 - 5.9 / 3.9 - 5.3 cm LV Systolic Diameter PLAX 4.5 cm IVS Diastolic Thickness 1.5 cm 0.6 - 1.0 / 0.6 - 0.9 cm IVS Systolic Thickness 1.2 cm LVPW Diastolic Thickness 0.9 cm 0.6 - 1.0 / 0.6 - 0.9 cm LVPW Systolic Thickness 1.2 cm LVOT Diameter 2.1 cm LV Ejection Fraction 2D Teich 26.2 % LV Ejection Fraction MOD 2C 19.3 % LV Ejection Fraction 2C AL 20.5 % LA Diameter 4.7 cm Aorta at Sinotubular Diameter 2.5 cm DOPPLER AV Peak Velocity 147.0 cm/s LVOT Peak Velocity 64.7 cm/s AV Area Cont Eq vti 1.7 cm squared AV Area Cont Eq pk 1.5 cm squared MV Area PHT 5.0 cm squared Mitral E to A Ratio 2.3 MV E' Velocity 39.6 cm/s Mitral E to MV E' Ratio 20.0 Mitral E to LV E' Lateral Ratio 19.2 Mitral E to LV E' Septal Ratio 20.9 TR Peak Velocity 306.0 cm/s TR Peak Gradient 37.5 mmHg Right Atrial Pressure 3.0 mmHg Pulmonary Artery Systolic Pressu 40.5 mmHg FINDINGS Left Ventricle Mildly dilated left ventricle. Severely decreased left ventricular systolic function. Left ventricular ejection fraction is estimated at 15 %. There is severe global hypokinesis with relative sparing of basal to mid inferolateral guardado. Restrictive diastolic filling pattern with severely increased filling pressure. Right Ventricle Mildly increased right ventricular size. Moderately decreased right ventricular systolic function. Right ventricular systolic pressure 62 mmHg. Right Atrium Mildly increased right atrial size. Right atrial pressure estimated at 15 mmHg. Left Atrium Mildly increased left atrial size. Mitral Valve Moderately thickened mitral valve. No mitral valve stenosis. Trace mitral valve regurgitation. Aortic Valve Moderately thickened trileaflet aortic valve. Thickening is more pronounced in noncoronary and left cusps. No aortic valve stenosis. No aortic valve regurgitation. Tricuspid Valve Structurally normal tricuspid valve. No tricuspid valve stenosis. Moderate tricuspid valve regurgitation. Pulmonic Valve Pulmonic valve not well visualized. Trace pulmonary valve regurgitation. Pericardium No pericardial effusion. Aorta Normal-sized aortic root. Dilated inferior vena cava with decreased respiratory variation. CONCLUSIONS 1. Mildly dilated left ventricle. Severely decreased left ventricular systolic function. Left ventricular ejection fraction is estimated at 15 %. There is severe global hypokinesis with relative sparing of basal to mid inferolateral guardado. Restrictive diastolic filling pattern with severely increased filling pressure. 2. Mildly increased right ventricular size. Moderately decreased right ventricular systolic function. 3. Mild biatrial enlargement. 4. Moderate tricuspid valve regurgitation. 5. Severely increased pulmonary artery pressure estimated at 62 mmHg. 6. When compared to previous echocardiogram dated 05/13/2020, left ventricular and right ventricular systolic function has decreased. Allison Gamble MD (Electronically Signed) Final Date: 15 June 2021 17:49 S
--- NOTE | 2021-06-15 09:21 | P.PN_ITS ---
Subjective Subjective: Interval history: She feels much better, breathing is much more improved. No uremic Sx. Hemodynamics are looking good. S/p pleural effusion thoracentesis yesterday, appears to be exudative. No chest pain, palpitation. Cough has resolved. Medications: Reviewed: Yes Vitals/I&O/Wt Last Vital Signs Temp 98 F 06/15/21 04:00 Pulse 62 06/15/21 05:59 Resp 16 06/15/21 05:59 BP 134/105 06/15/21 05:59 Pulse Ox 98 06/15/21 04:00 06/14/21 06/15/21 06/15/21 22:59 06:59 14:59 Intake Total 460 / 820 150 / 970 Output Total 2419 / 2419 Balance -1959 / -1599 150 / -1449 Weight last 48 hrs Weight 97.7 kg Weight 100.698 kg Physical Exam Narrative: EXAM NARRATIVE: Constitutional: Awake, comfortable HEENT: Wet mucosa, no jvp, non icteric Lungs: Bilaterally clear without discernible wheeze, rales in all lung zones CVS: S1 S2, no murmurs Abdo: Soft, BS ok Ext 4: Minimal edema, peripheral perfusion with no cyanosis Neurological: Grossly non-focal Data : 06/15/21 03:40 06/15/21 03:40 Micro: Microbiology 06/15/21 03:42 Blood Culture - Preliminary Blood SPECIMEN COLLECTED 06/15/21 03:40 Blood Culture - Preliminary Blood SPECIMEN COLLECTED 06/13/21 11:45 Gram Stain - Final Pleural Fluid A&P Additional A&P Information 1. ESRD Dialysis requested for tomorrow; 2K, UF 2-3L as tolerated Continue Monday, Monday, Monday schedule. Dose medication for GFR less than 15 on dialysis. 2. Shortness of breath and pleural effusion Status post thoracentesis. Appears exudative, further diagnostic work up per primary team 3. Hypertension. Controlled after dialysis yesterday 4. Chronic ESRD issues These to be handled in the outpatient dialysis clinic as part of standard monthly care. João Vazquez MD Nephrology [phone] Patient seen and examined via telemedicine, with the assistance of the bedside RN > 25 min spent in evaluation and mgmt of patient Attestations Medical Necessity Statement*: Eval for eSRD mgmt Coding Level of Care Code Acute [employer]ist[employer] Server for Chg Fwd
[2021-06-15] MEDS: fluticasone nasal spray 16gm Btl 2 SPRAY NASAL (09:31)
[2021-06-15] MEDS: doxazosin 4 mg Tablet PO ×2 (09:31→18:05)
[2021-06-15] MEDS: carvedilol 25 mg Tablet PO ×2 (09:31→18:05)
--- NOTE | 2021-06-15 09:38 | P.PN_ITS ---
Subjective Subjective: Interval history: Patient was seen and examined this morning, shortness of breath has improved post thoracentesis.Denies any other complaints. Medications: Reviewed: Yes Vitals/I&O/Wt Last Vital Signs Temp 98 F 06/15/21 04:00 Pulse 62 06/15/21 05:59 Resp 16 06/15/21 05:59 BP 134/105 06/15/21 05:59 Pulse Ox 98 06/15/21 04:00 06/14/21 06/15/21 06/15/21 22:59 06:59 14:59 Intake Total 460 / 820 150 / 970 Output Total 2419 / 2419 Balance -1959 / -1599 150 / -1449 Weight last 48 hrs Weight 97.7 kg Weight 100.698 kg Physical Exam Const: COMMON NORMALS: patient oriented x3 Resp: EFFORT & INSPECTION: Yes symmetric chest movement OTHER: Diminished air entry bilaterally more on the left lung. Cardio: COMMON NORMALS: regular rate, regular rhythm, S1 normal heart sound present, S2 normal heart sound present, No gallops present (Cardio), No murmurs present (Cardio), No rub (Cardio) and Peripheral pulses 2+ throughout RATE: regular rate RHYTHM: regular rhythm HEART SOUNDS: S1 normal heart sound present and S2 normal heart sound present PERIPHERAL PULSES: Peripheral pulses 2+ throughout GI: COMMON NORMALS: Normal to inspection, nondistended, normoactive bowel sounds present, Soft to palpation, non-tender, No hepatosplenomegaly present and no masses AUSCULTATION: Yes normoactive bowel sounds PALPATION: Yes Soft to palpation and Yes No hepatosplenomegaly present RECTAL EXAM: deferred Extremity: COMMON NORMALS: no clubbing, cyanosis or edema and no pedal edema NARRATIVE EXTREMITY EXAM: S/P LT BKA . Lymphedema of the right lower extremity. Neuro: COMMON NORMALS: patient oriented x3 Data : 06/15/21 03:40 06/15/21 03:40 Micro: Microbiology 06/15/21 03:42 Blood Culture - Preliminary Blood SPECIMEN COLLECTED 06/15/21 03:40 Blood Culture - Preliminary Blood SPECIMEN COLLECTED 06/13/21 11:45 Gram Stain - Final Pleural Fluid A&P Assessment and plan (1) Large pleural effusion: Status: Acute (2) Heart failure with reduced ejection fraction: Status: Acute (3) Increasing shortness of breath: Status: Acute (4) Difficult intravenous access: Status: Acute (5) Neuropathy: Status: Acute (6) Hypertension: Status: Acute Qualifiers: Hypertension type: essential hypertension Qualified Code(s): I10 - Essential (primary) hypertension (7) ESRD (end stage renal disease): Status: Acute Additional A&P Information Symptomatic large pleural effusion: CT chest without contrast: Moderate to large left pleural effusion with associated lower lobe atelectasis. Superimposed pneumonia not excluded. 2D echo: Mildly dilated left ventricle. Severely decreased left ventricular systolic function. Left ventricular ejection fraction is estimated at 15 %. There is severe global hypokinesis with relative sparing of basal to mid inferolateral guardado. Restrictive diastolic filling pattern with severely increased filling pressure. Mildly increased right ventricular size. Moderately decreased right ventricular systolic function. Mild biatrial enlargement. Moderate tricuspid valve regurgitation. Severely increased pulmonary artery pressure estimated at 62 mmHg. S/p: Left thoracentesis: With removal of 1100 cc yellow pleural fluid. Pleural fluid analysis as per light criteria is consistent with exudative effusi on possibly secondary to pneumonia, cannot conclusively rule out pseudoexudate, though the patient has not been on Lasix or other diuretic, longstanding pleural effusion, can have pseudoexudative characteristics even in absence of diuretic use.Pleural fluid proBNP will be helpful, given the fact that the patient has significant heart failure with reduced ejection fraction. pleural fluid pathology: Chronic inflammation with reactive mesothelial cells. No malignancy identified.) Continue levofloxacin 500 mg p.o. every 48 hour daily for now. Heart failure with reduced ejection fraction: Cardiology consult: To rule out underlying coronary artery disease. End stage Renal disease ( MWF ) Nephrology on board Anemia: Hemoglobin stable Type 2 diabetes: Patient has been taken off insulin Lymphedema of right leg without any active signs of cellulitis, follows up with wound care Does have signs of venous stasis dermatitis Full code Renal dialysis diet DVT :Heparin 5000 sc q12 h daily She will need outpatient follow-up with pulmonology for mediastinal lymphadenopathy Attestations Medical Necessity Statement*: Needs to the hospital for management of symptomatic pleural effusion, severely depressed ejection fraction, need for cardiology evaluation. Coding Level of Care Code Acute Gripper Attacher for Ch Fwd Diagnoses Large pleural effusion J90 Heart failure with reduced ejection fraction I50.20 Increasing shortness of breath R06.02 Difficult intravenous access Z78.9 Neuropathy G62.9 Hypertension I10 Hypertension type: essential hypertension ESRD (end stage renal disease) N18.6
--- NOTE | 2021-06-15 17:30 | P.CONIM_ITS ---
Providers/Reason For Consult Consulting Physician/Specialty*: Dr. Gamble, cardiology Reason for Consult*: Congestive heart failure with drop in left ventricular systolic function Attending Physician: Ron Ca MD Primary Care Provider: Karen Bear MD History of Present Illness History of Present Illness Alesia Shaw is a 60 year old female with a history of end-stage renal disease on hemodialysis via tunneled catheter (M,W, F, still making urine), history of hypertension, type 2 diabetes, HFpEF, chronic leg swelling, hypothyroidism and history of spinal abscess with MRSA for which she underwent surgical intervention in 2018 at the [facility] ([facility] in [place]. After the antibiotic treatment, patient developed kidney failure ended up requiring peritoneal dialysis. She was hospitalized 04/2020 for suspected aortic valve vegetation on ERIN with blood culture grew MSSA, was transferred to [facility] per patient and family request. She was evaluated by CT surgery and conservative approach with treatment with antibiotics and follow up ERIN did not show any aortic valve vegetation. She underwent left BKA in 12/2020 for left ankle osteomyelitis and Charcoat foot requiring repeat sx for dehiscence in 02/2021. She was admitted this time for few month h/o worsening shortness of breath with minimal exertion and coughing with intermittent productive of yellowish sputum. No fever, sinusitis or allergies. +orthopnea with some PND, nausea and dry heaves. She is a non-smoker, has not been vaccinated for COVID-19. CT chest revealed left-sided pleural effusion. She underwent thoracentesis and echo showed severely decreased LV function. I have been asked to assist in further management. Review of Systems Const: Reports: change in appetite, change in weight, fatigue and malaise; Denies: fever(s) or chills Eyes: Denies: change in vision ENMT: Denies: throat pain or epistaxis Card: Reports: chest pain, edema, dyspnea on exertion and orthopnea Resp: Reports: dyspnea and productive cough GI: Reports: abdominal pain and nausea; Denies: change in bowel habits, hematochezia or melena : Denies: flank pain, hematuria or vaginal bleeding Musc: Denies: neck pain Skin/Breast: Denies: rash Neuro: Denies: headache(s), dizziness or Slurred speech present Psych: Reports: anxiety Endo: Denies: polyuria Jimmy/Lymph: Denies: easy bruising or easy bleeding All/Imm: Denies: urticaria Meds/Allergies Home Medications and Allergies Home Medications Medication Instructions Recorded Confirmed Last Taken Type Stump Automation Lead #1 ea 01/12/21 06/13/21 Unknown Rx carvedilol [Coreg] 25 mg PO BID 05/19/21 06/13/21 06/12/21 History hydrocodone-acetaminophen 1 tab PO Q6H PRN #20 tab 05/20/21 06/13/21 Unknown Rx ondansetron HCl [Zofran] 4 mg PO Q6H PRN #20 tab 05/20/21 06/13/21 Unknown Rx promethazine-DM 6.25 mg-15 mg/5 mL 5 ml PO Q6H PRN #160 ml 06/07/21 06/13/21 Unknown Rx oral syrup albuterol sulfate [ProAir HFA] 2 puff INHALATION Q4H PRN 06/13/21 06/13/21 Unknown History docusate sodium [Colace] 100 mg PO BID PRN 06/13/21 06/13/21 Unknown History doxazosin [Cardura] 4 mg PO BID 06/13/21 06/13/21 06/13/21 10:00 History levothyroxine [Synthroid] 150 mcg PO QAM 06/13/21 06/13/21 06/13/21 History promethazine 25 mg PO Q6H PRN 06/13/21 06/13/21 Unknown History vit B,Q-EQ-wres-selen-vit D3-E 1 tab PO DAILY 06/13/21 06/13/21 06/12/21 History [RenaPlex-D] Allergies Allergy/AdvReac Type Severity Reaction Status Date / Time Iodinated Contrast Media Allergy ALGY-Hives Verified 06/13/21 11:58 Current Medications Current Medications Generic Name Dose Route Start Last Admin Trade Name Freq PRN Reason Stop Dose Admin Carvedilol 25 mg 06/13/21 18:04 06/15/21 09:31 Carvedilol 25 Mg Tablet PO 25 mg BID SHELBY Administration Doxazosin Mesylate 4 mg 06/14/21 09:00 06/15/21 09:31 Doxazosin 4 Mg Tablet PO 4 mg BID SHELBY Administration Fluticasone Propionate 2 spray 06/14/21 09:15 06/15/21 09:31 Fluticasone Nasal [place] 16gm Btl NASAL 2 spray DAILY SHELBY Administration Furosemide 40 mg 06/14/21 18:00 06/15/21 06:00 Furosemide 10 Mg/Ml Sdv 4ml IVP 40 mg Q12H SHELBY Administration Guaifenesin 200 mg 06/14/21 09:07 06/14/21 18:36 Guaifenesin 100 Mg/5 Ml Udc 10 Ml PO 200 mg Q4H PRN Administration COUGH AND CONGESTION Levothyroxine Sodium 150 mcg 06/14/21 06:00 06/15/21 06:00 Levothyroxine 150 Mcg Tablet PO 150 mcg QAM SHELBY Administration PFSH Acute PFSH: Medical History Acute bronchitis Anemia Aortic valve endocarditis Bacteremia due to Staphylococcus EKG done this morning revealed normal sinus rhythm with a left axis deviation. Voltage area for LVH. No significant ST-T changes. Charcot's joint of foot in type 2 diabetes mellitus Charcot's joint, left ankle and foot Congestive heart failure Diabetes Diabetes mellitus type 2, insulin-dependent. 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 Protein-energy malnutrition Septic arthritis of left ankle Surgical History Central vascular catheter in place upon arrival History of cholecystectomy History of colonoscopy with polypectomy 2017 History of left below knee amputation History of lumbar surgery Due to epidural abscess in March 2018 Peritoneal dialysis catheter in place removal 05/20/21 S/P hemodialysis catheter insertion Status post below-knee amputation of left lower extremity Family History Mother Cancer Uterine and breast cancer Father Diabetes Other CAD (coronary artery disease) Social History Smoking and tobacco status: never smoked Alcohol intake: current Alcohol intake frequency: holidays/special occasions only Female Reproductive History: Date of last menstrual period: 05/28/14 Vitals/I&O/Wt Last Vital Signs Temp 98 F 06/15/21 04:00 Pulse 67 06/15/21 15:09 Resp 14 06/15/21 15:09 BP 177/88 06/15/21 15:09 Pulse Ox 98 06/15/21 04:00 06/15/21 06/15/21 06/15/21 06:59 14:59 22:59 Intake Total 150 / 970 240 / 240 Balance 150 / -1449 240 / 240 Weight last 48 hrs Weight 215 lb 6.266 oz Physical Exam Narrative: EXAM NARRATIVE: GENERAL: obese woman sitting in bed in no acute distress HEENT: Pupils equal round reactive to light. No pallor or icterus. NECK: Elevated JVD. No carotid bruit. CARDIOVASCULAR SYSTEM: S1-S2 regular. PMI displaced. No murmur rubs or gallops. RESPIRATORY SYSTEM: Chest clear to auscultation. No wheezes rhonchi or rubs heard. No use of accessory muscles. ABDOMEN: Soft, nontender and nondistended. Normal bowel sounds present. EXTREMITIES: No cyanosis or clubbing. No edema. Left below-knee amputation PAN DUMPER: Patient is alert oriented ?3. No focal neurological deficits. SKIN: Normal turgor and temperature. PSYCH: Normal insight and judgment. Data Labs: Other Labs: NT proBNP greater than 70,000, Micro: Micro: Microbiology 06/13/21 11:45 Gram Stain - Final Pleural Fluid Body Fluid Culture - Preliminary 06/15/21 03:42 Blood Culture - Pr eliminary Blood SPECIMEN [facility] 06/15/21 03:40 Blood Culture - Pr eliminary Blood SPECIMEN [facility] Imaging^: US Vascular: Radiologist's impression: No evidence of right lower extremity DVT Other Data: Attestation for Other Data: I personally reviewed and interpreted the following: Other data: Chest x-ray 14 June 2021 IMPRESSION: 1. Status post left thoracentesis. No pneumothorax. 2. Improved left pleural effusion with persistent consolidation left lower lobe. 3. Right central venous catheter with tip in SVC. CT chest 13 June 2021 IMPRESSION: 1. Moderate to large left pleural effusion with associated lower lobe atelectasis. Superimposed pneumonia not excluded. Trace right effusion. 2. Nonspecific enlarged mediastinal nodes, possibly reactive NHAN 25 December 2020 FINDINGS LT DPA >220 Supernormal resting ABIs bilaterally. TBI of 0.52 on the right side and 0.24 on the left side CONCLUSIONS 1. Murmur noncompressible arteries bilaterally 2. Abnormal TBI's bilaterally, suggestive of mild peripheral artery disease on the right and moderately severe disease on the left side, possibly involving the distal vessels No similar previous studies are available for comparison Transthoracic echocardiogram 15 June 2021 CONCLUSIONS 1. Mildly dilated left ventricle. Severely decreased left ventricular systolic function. Left ventricular ejection fraction is estimated at 15 %. There is severe global hypokinesis with relative sparing of basal to mid inferolateral guardado. Restrictive diastolic filling pattern with severely increased filling pressure. 2. Mildly increased right ventricular size. Moderately decreased right ventricular systolic function. 3. Mild biatrial enlargement. 4. Moderate tricuspid valve regurgitation. 5. Severely increased pulmonary artery pressure estimated at 62 mmHg. 6. When compared to previous echocardiogram dated 05/13/2020, left ventricular and right ventricular systolic function has decreased. A&P Assessment and plan (1) Heart failure with reduced ejection fraction: On coreg. -continue to diurese. -Given marked drop in LV function, plan for LHC once feasible. -will need to be premedicated given iodine allergy (hives). Status: Acute (2) Large pleural effusion: s/p thoracentesis. Status: Acute (3) Hypertension: Blood pressure elevated. Status: Acute Qualifiers: Hypertension type: essential hypertension Qualified Code(s): I10 - Essential (primary) hypertension (4) ESRD (end stage renal disease): Status: Acute (5) Diabetes: Status: Acute Additional A&P Information Macrocytic anemia Thrombocytopenia Elevated alkaline phosphatase Thank you for allowing me to participate in patient's care. Please feel free to call with questions or concerns. Consult Attestations Medical Necessity Statement: Needs hospital stay for decompensated congestive heart failure Time Spent in Patient Care: Greater than 35 minutes (>than 50% of time spent in counselling and/or direct pt care on unit) . Coding Level of Care Code Acute Inner Tube Cutter for Gregorio Fwkaris Diagnoses Heart failure with reduced ejection fraction I50.20 Large pleural effusion J90 Hypertension I10 Hypertension type: essential hypertension ESRD (end stage renal disease) N18.6 Diabetes E11.9
[2021-06-15] MEDS: heparin 5,000 unit/mL INJ 1 mL 5000 UNIT SUBCUT (18:53)
--- NOTE | 2021-06-15 19:23 | PC.NURSE ---
Shift Note Frequent safety and comfort rounds continue. Orders and/or nursing care completed as indicated. Patient monitored for response to intervention and treatment(s). Education provided includes[wound care,medications]. Patient and/or security representative[verb understanding]. Will continue to monitor.
--- NOTE | 2021-06-15 19:44 | PC.NURSE ---
Shift Note Frequent safety and comfort rounds continue. Orders and/or nursing care completed as indicated. Patient monitored for response to intervention and treatment(s). Education provided includes[]. Patient and/or agency service representative[]. Will continue to monitor. Received report from MARCIANO Valdez. Dr Gamble to see patient. Patient currently talking on the phone.
[2021-06-15] MEDS: HYDROcodone-acetaminophen 5-325 mg Tablet 1 TAB PO (23:20)
[2021-06-16] VITALS (12 sets, daily range): BP systolic 131–197; BP diastolic 76–100; PULSE 59–75; RESP 15–25; TEMP 35.8–36.9; O2SAT 95–98
[2021-06-16 04:52] LABS: Basophils % 0.6 %; Eosinophils # 0.1 10^3/uL (0.0-0.8); Eosinophils % 2.8 %; Hematocrit 33.5 % (37.0-47.0); Hemoglobin 10.5 g/dL (11.5-15.3); Lymphocytes # 1.2 10^3/uL (0.8-4.8); Mean Corpuscular HGB Conc 31.3 g/dL (30.0-36.0); Mean Corpuscular Hemoglobin 32.7 pg (28.0-34.0); Mean Corpuscular Volume 104.4 fL (81-99); Mean Platelet Volume 10.7 fL (7.4-10.4); Monocytes # 0.7 10^3/uL (0.2-0.9); Monocytes % 13.4 %; Nucleated Red Blood Cells % 0 %; Platelet Count 138 10^3/cmm (130-400); Red Blood Count 3.21 10^6/uL (4.1-5.3); Red Cell Distribution Width 15.8 % (12.1-15.1); White Blood Count 4.9 10^3/uL (4.0-10.0)
[2021-06-16] MEDS: heparin 5,000 unit/mL INJ 1 mL 5000 UNIT SUBCUT ×2 (05:07→18:25)
[2021-06-16] MEDS: levothyroxine 150 mcg Tablet PO (05:07)
[2021-06-16] MEDS: levoFLOXacin 500 mg Tablet PO (05:07)
[2021-06-16 05:16] LABS: Alanine Aminotransferase 10 U/L (0-33); Alkaline Phosphatase 158 IU/L (35-105); Anion Gap 14.3 (5-19); Aspartate Amino Transferase 20 U/L (0-32); Blood Urea Nitrogen 26 mg/dL (6-20); Calcium 7.8 mg/dL (8.5-10.5); Carbon Dioxide 25 mmol/L (22-29); Chloride 100 mmol/L (98-107); Globulin 3.8 g/dL (1.3-4.6); Glomerular Filtration Rate 8.1 mL/min (90-130); Glucose 104 mg/dL (65-115); Osmolality Calculated 285 mOsm/kg (285-295); Potassium 4.3 mmol/L (3.5-5.1); Sodium 135 mmol/L (136-145); Total Bilirubin 0.4 mg/dL (0.15-1.2); Total Protein 6.8 g/dL (6.6-8.7)
--- NOTE | 2021-06-16 06:00 | XR_ITS ---
WS: [id number] Portable AP upright chest, 06/16/2021 Clinical Data: lt pleural effusion s/p thoracentesis Comparison: Portable chest, 06/14/2021. Findings: The left pleural effusion remains the same. There is a small right effusion. There is patch y opacity overlying both lower lobes, more on the left consistent with atelectasis and/or pneumonia. The heart size is slightly enlarged. There is a large dialysis catheter entering the right internal j ugular vein and ending in the superior vena cava. Monitor leads are on the chest wall. XR/XR chest 1V portable [id number] Impression: 1. Moderate left pleural effusion and small right effusion. 2. Patchy atelectasis and/or pneumonia overlying both lower lobes.
--- NOTE | 2021-06-16 06:37 | PC.NURSE ---
Patient taken via bed to dialysis at this time.
--- NOTE | 2021-06-16 06:53 | P.PN_ITS ---
Subjective Subjective: Interval history: feels sob on dialysis. no n/v/f/c/kearney/cp/d Medications: Reviewed: Yes Medication Review Details: Current Medications Hydrocodone Bitart/Acetaminophen (Hydrocodone-Acetaminophen 5-325 Mg Tablet) 1 tab PO Q6H PRN PRN Reason: pain Last Admin: 06/15/21 23:20 Dose: 1 tab Documented by: Albuterol Sulfate (Albuterol 8 Gm Mdi) 2 puff INHALATION Q4H PRN PRN Reason: Shortness Of Breath Albuterol/Ipratropium (Ipratropium-Albuterol 3 Ml Neb) 3 ml INHALATION Q6H PRN PRN Reason: SHORTNESS OF BREATH Carvedilol (Carvedilol 25 Mg Tablet) 25 mg PO BID [facility] Last Admin: 06/15/21 18:05 Dose: 25 mg Documented by: Docusate Sodium (Docusate Sodium 100 Mg Capsule) 100 mg PO BID PRN PRN Reason: Constipation Doxazosin Mesylate (Doxazosin 4 Mg Tablet) 4 mg PO BID [facility] Last Admin: 06/15/21 18:05 Dose: 4 mg Documented by: Fluticasone Propionate (Fluticasone Nasal [place] 16gm Btl) 2 spray NASAL DAILY [facility] Last Admin: 06/15/21 09:31 Dose: 2 spray Documented by: Furosemide (Furosemide 10 Mg/Ml Sdv 4ml) 40 mg IVP 0800,1400 [facility] Guaifenesin (Guaifenesin 100 Mg/5 Ml Udc 10 Ml) 200 mg PO Q4H PRN PRN Reason: COUGH AND CONGESTION Last Admin: 06/14/21 18:36 Dose: 200 mg Documented by: Heparin Sodium (Beef Lung) (Heparin 5,000 Unit/Ml Inj 1 Ml) 5,000 unit SUBCUT Q12H [facility] Last Admin: 06/16/21 05:07 Dose: 5,000 unit Documented by: Levofloxacin (Levofloxacin 500 Mg Tablet) 500 mg PO Q48H [facility]; Protocol Last Admin: 06/16/21 05:07 Dose: 500 mg Documented by: Levothyroxine Sodium (Levothyroxine 150 Mcg Tablet) 150 mcg PO QAM [facility] Last Admin: 06/16/21 05:07 Dose: 150 mcg Documented by: Ondansetron HCl (Ondansetron 4 Mg Tablet) 4 mg PO Q6H PRN PRN Reason: nausea and vomiting Ondansetron HCl (Ondansetron 2 Mg/Ml Sdv 2 Ml) 4 mg IVP Q6H PRN PRN Reason: NAUSEA AND VOMITING Promethazine HCl/Dextromethorphan (Promethazine-Dm 6.25-15 Mg/5 Ml Syrup) 5 ml PO Q6H PRN PRN Reason: cough Vitals/I&O/Wt Last Vital Signs Temp 98.3 F 06/16/21 04:00 Pulse 60 06/16/21 04:46 Resp 19 H 06/16/21 04:00 BP 186/83 06/16/21 04:00 Pulse Ox 98 06/16/21 04:00 06/15/21 06/15/21 06/16/21 14:59 22:59 06:59 Intake Total 240 / 240 240 / 480 150 / 630 Balance 240 / 240 240 / 480 150 / 630 Weight last 48 hrs Weight 97.7 kg Physical Exam Narrative: EXAM NARRATIVE: seen on dialysis. is sob, weak, VSS heent-nc/at, eomi, anicteric neck- supple lungs- wheezing heart- reg, +TATY abd soft, nt, nd ext L BKA, 1+ edema neuro- a,a,o x 3 Data : 06/16/21 04:23 06/16/21 04:23 Micro: Microbiology 06/15/21 03:42 Blood Culture - Preliminary Blood NEGATIVE TO DATE 06/15/21 03:40 Blood Culture - Preliminary Blood NEGATIVE TO DATE 06/13/21 11:45 Gram Stain - Final Pleural Fluid Body Fluid Culture - Preliminary A&P Additional A&P Information 1. ESRD Dialysis now- 2K, UF 2-3L as tolerated Continue Monday, Monday, Monday schedule. Dose medication for GFR less than 15 on dialysis. 2. Shortness of breath and pleural effusion Status post thoracentesis. Appears exudative, further diagnostic work up per primary team 3. Hypertension. -on beta-gabbie, add ARB or entresto as per cardiology 4. COPD- as per medicine -hypercapneia- bipap 5, anemia - hgb 10.5 6. Renal - BMM- ca 7.8, check phos and pth 7. hyponatremia-monitor w/ dialysis 8. systolic chf- low ef- for cath as per cardiology Patient seen and examined via telemedicine, with the assistance of the bedside RN > 25 min spent in evaluation and mgmt of patient Attestations Medical Necessity Statement*: CHF, ESRD -per medicine Time Spent in Patient Care: 16 - 35 minutes Coding Level of Care Code Acute Cellular Equipment Installer for Gregorio Thompson
[2021-06-16] MEDS: carvedilol 25 mg Tablet PO ×2 (11:05→18:25)
[2021-06-16] MEDS: FUROsemide 10 mg/mL SDV 4mL 40 MG IVP ×2 (11:05→14:27)
[2021-06-16] MEDS: b-complex-vitamin c Tablet 1 EACH PO (11:05)
[2021-06-16] MEDS: fluticasone nasal spray 16gm Btl 2 SPRAY NASAL (11:06)
[2021-06-16] MEDS: losartan 50 mg Tablet PO (11:07)
--- NOTE | 2021-06-16 12:11 | P.PN_ITS ---
Subjective Subjective: Interval history: She had shortness of breath and coughing this morning. Coughing and shortness of breath has improved. Urine output not well documented. -2.4 L by dialysis on 06/15/21. Today, UO 300 ml and HD 3300 ml. Medications: Reviewed: Yes Medication Review Details: Current Medications Hydrocodone Bitart/Acetaminophen (Hydrocodone-Acetaminophen 5-325 Mg Tablet) 1 tab PO Q6H PRN PRN Reason: pain Last Admin: 06/15/21 23:20 Dose: 1 tab Documented by: Albuterol Sulfate (Albuterol 8 Gm Mdi) 2 puff INHALATION Q4H PRN PRN Reason: Shortness Of Breath Albuterol/Ipratropium (Ipratropium-Albuterol 3 Ml Neb) 3 ml INHALATION Q6H PRN PRN Reason: SHORTNESS OF BREATH Carvedilol (Carvedilol 25 Mg Tablet) 25 mg PO BID [facility] Last Admin: 06/16/21 11:05 Dose: 25 mg Documented by: Docusate Sodium (Docusate Sodium 100 Mg Capsule) 100 mg PO BID PRN PRN Reason: Constipation Fluticasone Propionate (Fluticasone Nasal [place] 16gm Btl) 2 spray NASAL DAILY [facility] Last Admin: 06/16/21 11:06 Dose: 2 spray Documented by: Furosemide (Furosemide 10 Mg/Ml Sdv 4ml) 40 mg IVP 0800,1400 [facility] Last Admin: 06/16/21 11:05 Dose: 40 mg Documented by: Guaifenesin (Guaifenesin 100 Mg/5 Ml Udc 10 Ml) 200 mg PO Q4H PRN PRN Reason: COUGH AND CONGESTION Last Admin: 06/14/21 18:36 Dose: 200 mg Documented by: Heparin Sodium (Beef Lung) (Heparin 5,000 Unit/Ml Inj 1 Ml) 5,000 unit SUBCUT Q12H [facility] Last Admin: 06/16/21 05:07 Dose: 5,000 unit Documented by: Levofloxacin (Levofloxacin 500 Mg Tablet) 500 mg PO Q48H [facility]; Protocol Last Admin: 06/16/21 05:07 Dose: 500 mg Documented by: Levothyroxine Sodium (Levothyroxine 150 Mcg Tablet) 150 mcg PO QAM [facility] Last Admin: 06/16/21 05:07 Dose: 150 mcg Documented by: Losartan Potassium (Losartan 50 Mg Tablet) 50 mg PO DAILY [facility] Last Admin: 06/16/21 11:07 Dose: 50 mg Documented by: Multivitamins (S-Pzonkhw-Rjgwotk C Tablet) 1 each PO DAILY [facility] Last Admin: 06/16/21 11:05 Dose: 1 each Documented by: Ondansetron HCl (Ondansetron 4 Mg Tablet) 4 mg PO Q6H PRN PRN Reason: nausea and vomiting Ondansetron HCl (Ondansetron 2 Mg/Ml Sdv 2 Ml) 4 mg IVP Q6H PRN PRN Reason: NAUSEA AND VOMITING Promethazine HCl/Dextromethorphan (Promethazine-Dm 6.25-15 Mg/5 Ml Syrup) 5 ml PO Q6H PRN PRN Reason: cough Vitals/I&O/Wt Last Vital Signs Temp 96.4 F L 06/16/21 07:05 Pulse 60 06/16/21 07:05 Resp 20 H 06/16/21 07:05 BP 175/79 06/16/21 11:07 Pulse Ox 98 06/16/21 04:00 06/15/21 06/16/21 06/16/21 22:59 06:59 14:59 Intake Total 240 / 480 150 / 630 Balance 240 / 480 150 / 630 Weight last 48 hrs Weight 97.7 kg Physical Exam Const: COMMON NORMALS: patient oriented x3 Resp: EFFORT & INSPECTION: Yes symmetric chest movement OTHER: Diminished air entry bilaterally more on the left lung. Cardio: COMMON NORMALS: regular rate, regular rhythm, S1 normal heart sound present, S2 normal heart sound present, No gallops present (Cardio), No murmurs present (Cardio), No rub (Cardio) and Peripheral pulses 2+ throughout RATE: regular rate RHYTHM: regular rhythm HEART SOUNDS: S1 normal heart sound present and S2 normal heart sound present PERIPHERAL PULSES: Peripheral pulses 2+ throughout GI: COMMON NORMALS: Normal to inspection, nondistended, normoactive bowel sounds present, Soft to palpation, non-tender, No hepatosplenomegaly present and no masses AUSCULTATION: Yes normoactive bowel sounds PALPATION: Yes Soft to palpation and Yes No hepatosplenomegaly present RECTAL EXAM: deferred Extremity: COMMON NORMALS: no clubbing, cyanosis or edema and no pedal edema NARRATIVE EXTREMITY EXAM: S/P LT BKA . Lymphedema of the right lower extremity. Neuro: COMMON NORMALS: patient oriented x3 Data : 06/16/21 04:23 06/16/21 04:23 Micro: Microbiology 06/15/21 03:42 Blood Culture - Preliminary Blood NEGATIVE TO DATE 06/15/21 03:40 Blood Culture - Preliminary Blood NEGATIVE TO DATE 06/13/21 11:45 Gram Stain - Final Pleural Fluid Body Fluid Culture - Preliminary A&P Assessment and plan (1) Large pleural effusion: Status: Acute (2) Heart failure with reduced ejection fraction: Status: Acute (3) Increasing shortness of breath: Status: Acute (4) Difficult intravenous access: Status: Acute (5) Neuropathy: Status: Acute (6) Hypertension: Status: Acute Qualifiers: Hypertension type: essential hypertension Qualified Code(s): I10 - Essential (primary) hypertension (7) ESRD (end stage renal disease): Status: Acute Additional A&P Information Symptomatic large pleural effusion: CT chest without contrast: Moderate to large left pleural effusion with associated lower lobe atelectasis. Superimposed pneumonia not excluded. Xray chest : Persistent Moderate left pleural effusion and small right effusion. 2D echo: Mildly dilated left ventricle. Severely decreased left ventricular systolic function. Left ventricular ejection fraction is estimated at 15 %. There is severe global hypokinesis with relative sparing of basal to mid infe rolateral guardado. Restrictive diastolic filling pattern with severely increased filling pressure. Mildly increased right ventricular size. Moderately decreased right ventricular systolic function. Mild biatrial enlargement. Moderate tricuspid valve regurgitation. Severely increased pulmonary artery pressure estimated at 62 mmHg. S/p: Left thoracentesis: With removal of 1100 cc yellow pleural fluid. Pleural fluid analysis as per light criteria is consistent with exudative effusion possibly secondary to pneumonia, cannot conclusively rule out pseudoexudate, though the patient has not been on Lasix or other diuretic, longstanding pleural effusion, can have pseudoexudative characteristics even in absence of diuretic use.Pleural fluid proBNP will be helpful, given the fact that the patient has significant heart failure with reduced ejection fraction. pleural fluid pathology: Chronic inflammation with reactive mesothelial cells. No malignancy identified.) Continue levofloxacin 500 mg p.o. every 48 hour daily for now. Heart failure with reduced ejection fraction: Patient is due for LHC/RHC in am.To rule out underlying coronary artery disease. 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 Coding Level of Care Code Acute Marine Pipefitter for Chg Fwd Exam Detailed Diagnoses Large pleural effusion J90 Heart failure with reduced ejection fraction I50.20 Increasing shortness of breath R06.02 Difficult intravenous access Z78.9 Neuropathy G62.9 Hypertension I10 Hypertension type: essential hypertension ESRD (end stage renal disease) N18.6
--- NOTE | 2021-06-16 13:21 | P.PN_ITS ---
Subjective Subjective: Interval history: She had shortness of breath and coughing this morning. Coughing and shortness of breath has improved. Urine output not well documented. -2.4 L by dialysis on 06/15/21. Today, UO 300 ml and HD 3300 ml. Medications: Reviewed: Yes Medication Review Details: Current Medications Hydrocodone Bitart/Acetaminophen (Hydrocodone-Acetaminophen 5-325 Mg Tablet) 1 tab PO Q6H PRN PRN Reason: pain Last Admin: 06/15/21 23:20 Dose: 1 tab Documented by: Albuterol Sulfate (Albuterol 8 Gm Mdi) 2 puff INHALATION Q4H PRN PRN Reason: Shortness Of Breath Albuterol/Ipratropium (Ipratropium-Albuterol 3 Ml Neb) 3 ml INHALATION Q6H PRN PRN Reason: SHORTNESS OF BREATH Carvedilol (Carvedilol 25 Mg Tablet) 25 mg PO BID [facility] Last Admin: 06/16/21 11:05 Dose: 25 mg Documented by: Docusate Sodium (Docusate Sodium 100 Mg Capsule) 100 mg PO BID PRN PRN Reason: Constipation Fluticasone Propionate (Fluticasone Nasal [place] 16gm Btl) 2 spray NASAL DAILY [facility] Last Admin: 06/16/21 11:06 Dose: 2 spray Documented by: Furosemide (Furosemide 10 Mg/Ml Sdv 4ml) 40 mg IVP 0800,1400 [facility] Last Admin: 06/16/21 11:05 Dose: 40 mg Documented by: Guaifenesin (Guaifenesin 100 Mg/5 Ml Udc 10 Ml) 200 mg PO Q4H PRN PRN Reason: COUGH AND CONGESTION Last Admin: 06/14/21 18:36 Dose: 200 mg Documented by: Heparin Sodium (Beef Lung) (Heparin 5,000 Unit/Ml Inj 1 Ml) 5,000 unit SUBCUT Q12H [facility] Last Admin: 06/16/21 05:07 Dose: 5,000 unit Documented by: Levofloxacin (Levofloxacin 500 Mg Tablet) 500 mg PO Q48H [facility]; Protocol Last Admin: 06/16/21 05:07 Dose: 500 mg Documented by: Levothyroxine Sodium (Levothyroxine 150 Mcg Tablet) 150 mcg PO QAM [facility] Last Admin: 06/16/21 05:07 Dose: 150 mcg Documented by: Losartan Potassium (Losartan 50 Mg Tablet) 50 mg PO DAILY [facility] Last Admin: 06/16/21 11:07 Dose: 50 mg Documented by: Multivitamins (P-Ddcelfl-Oogohnb C Tablet) 1 each PO DAILY [facility] Last Admin: 06/16/21 11:05 Dose: 1 each Documented by: Ondansetron HCl (Ondansetron 4 Mg Tablet) 4 mg PO Q6H PRN PRN Reason: nausea and vomiting Ondansetron HCl (Ondansetron 2 Mg/Ml Sdv 2 Ml) 4 mg IVP Q6H PRN PRN Reason: NAUSEA AND VOMITING Promethazine HCl/Dextromethorphan (Promethazine-Dm 6.25-15 Mg/5 Ml Syrup) 5 ml PO Q6H PRN PRN Reason: cough Vitals/I&O/Wt Last Vital Signs Temp 96.4 F L 06/16/21 07:05 Pulse 60 06/16/21 07:05 Resp 20 H 06/16/21 07:05 BP 175/79 06/16/21 11:07 Pulse Ox 98 06/16/21 04:00 06/15/21 06/16/21 06/16/21 22:59 06:59 14:59 Intake Total 240 / 480 150 / 630 Balance 240 / 480 150 / 630 Weight last 48 hrs Weight 215 lb 6.266 oz Physical Exam Narrative: EXAM NARRATIVE: GENERAL: obese woman sitting in bed in no acute distress HEENT: Pupils equal round reactive to light. No pallor or icterus. NECK: Elevated JVD. No carotid bruit. CARDIOVASCULAR SYSTEM: S1-S2 regular. PMI displaced. grade 3/6 SM in LLSB. RESPIRATORY SYSTEM: Absent breath sounds bilateral mid to basal posterior lung martin (L>R). No wheezes or rhonchi heard. ABDOMEN: Soft, nontender and nondistended. Normal bowel sounds present. EXTREMITIES: No cyanosis or clubbing. 1+ pitting and non pitting edema below knee on right. Left below-knee amputation [employer] SYSTEMS ENGINEER: Patient is alert oriented ?3. No focal neurological deficits. SKIN: Normal turgor and temperature. PSYCH: Normal insight and judgment. Data : 06/17/21 03:33 06/17/21 03:33 Micro: Microbiology 06/15/21 03:42 Blood Culture - Preliminary Blood NEGATIVE TO DATE 06/15/21 03:40 Blood Culture - Preliminary Blood NEGATIVE TO DATE 06/13/21 11:45 Gram Stain - Final Pleural Fluid Body Fluid Culture - Preliminary A&P Assessment and plan (1) Heart failure with reduced ejection fraction: LVEF (55-->15%)On coreg. Start on losartan and aldactone. -continue to diurese. -Given marked drop in LV function, plan for [facility] hopefully tomorrow. -will need to be premedicated given iodine allergy (hives). Status: Acute (2) Large pleural effusion: s/p thoracentesis with removal of 1100 ml of pleural fluid. Status: Acute (3) Hypertension: Blood pressure elevated. Status: Acute Qualifiers: Hypertension type: essential hypertension Qualified Code(s): I10 - Essential (primary) hypertension (4) ESRD (end stage renal disease): Status: Acute (5) Diabetes: Status: Acute Additional A&P Information Macrocytic anemia Thrombocytopenia Elevated alkaline phosphatase Thank you for allowing me to participate in patient's care. Please feel free to call with questions or concerns. Attestations Medical Necessity Statement*: Needs hospital stay for decompensated congestive heart failure, pleural effusion and for further work-up of recent drop in LV function. Time Spent in Patient Care: 16 - 35 minutes (>than 50% of time spent in counselling and/or direct pt care on unit) . Coding Level of Care Code Acute Manager Utilization for Gregorio Thompson Diagnoses Heart failure with reduced ejection fraction I50.20 Large pleural effusion J90 Hypertension I10 Hypertension type: essential hypertension ESRD (end stage renal disease) N18.6 Diabetes E11.9
[2021-06-16] MEDS: spironolactone 25 mg Tablet PO (14:28)
--- NOTE | 2021-06-16 19:07 | PC.NURSE ---
Shift Note Received report from MARCIANO Valdez. Frequent safety and comfort rounds continue. Orders and/or nursing care completed as indicated. Patient monitored for response to intervention and treatment(s). Education provided includes prednisone and left and right heart catheterization. Patient and/or sales representative womens health verbalized complete understanding. Will continue to monitor. Denies needs at this time. No distress observed.
--- NOTE | 2021-06-16 19:21 | PC.NURSE ---
Shift Note Frequent safety and comfort rounds continue. Orders and/or nursing care completed as indicated. Patient monitored for response to intervention and treatment(s). Education provided includes[lasix and coreg]. Patient and/or sales promotion representative[verb understanding]. Will continue to monitor.
[2021-06-16] MEDS: predniSONE 20 mg Tablet 50 MG PO (19:54)
[2021-06-16] MEDS: guaiFENesin 100 mg/5 mL UDC 10 mL 200 MG PO (20:13)
[2021-06-16] MEDS: HYDROcodone-acetaminophen 5-325 mg Tablet 1 TAB PO (20:13)
--- NOTE | 2021-06-16 20:23 | PC.NURSE ---
Performed dressing changes to left stump and right heal as ordered. Minimal purulent drainage observed. No foul odors detected. Patient tolerated well.
[2021-06-16] MEDS: hyDRALAzine 20 mg/mL INJ 1 mL 10 MG IVP (20:47)
--- NOTE | 2021-06-16 20:51 | PC.NURSE ---
Informed Dr Hooks of patient's elevated blood pressure as documented. Received order to give Hydralazine 10mg IVP now. Will recheck BP in one hour post administration and begin with PO Hydralazine as ordered based on BP. Instructed patient on hydralazine and expectations. Patient verbalized complete understanding.
[2021-06-16] MEDS: hyDRALAzine 25 mg Tablet PO (22:01)
--- NOTE | 2021-06-16 22:03 | PC.NURSE ---
Current blood pressure 169/91. Administered PO Hydralazine as ordered per Dr Hooks.
[2021-06-17] VITALS (24 sets, daily range): BP systolic 129–191; BP diastolic 77–97; PULSE 70–84; RESP 12–27; TEMP 36.4–36.7; O2SAT 90–99
--- NOTE | 2021-06-17 00:02 | PC.NURSE ---
Patient reports feeling like she is having a reaction to new medication. Patient reports feeling flush and hot. Assessed patient's skin no rash, redness or hives observed at this time. Patient appears anxious about her scheduled procedure in the am. Patient blood pressure 197/98 post hydralazine administration. Patient has not slept in past [address] Hooks and received telephone order for Ativan 0.5mg PO one time dose. RBVO
[2021-06-17] MEDS: LORazepam 0.5 mg Tablet PO (00:17)
--- NOTE | 2021-06-17 00:18 | PC.NURSE ---
Instructed patient on need for sleep for scheduled procedure. Also discussed need to control elevated BP. Instructed on the use of Ativan per Dr Hooks to achieve these goals. Patient expressed great thanks and verbalized complete understanding.
[2021-06-17] MEDS: predniSONE 20 mg Tablet 50 MG PO ×2 (01:55→08:07)
--- NOTE | 2021-06-17 01:58 | PC.NURSE ---
Patient resting with eyes closed. Easily aroused. Patient reports feeling better.
[2021-06-17 04:52] LABS: Basophils % 0.3 %; Eosinophils % 0.2 %; Hematocrit 36.4 % (37.0-47.0); Hemoglobin 11.5 g/dL (11.5-15.3); Lymphocytes # 0.3 10^3/uL (0.8-4.8); Lymphocytes % 5.8 %; Mean Corpuscular HGB Conc 31.6 g/dL (30.0-36.0); Mean Corpuscular Hemoglobin 32.4 pg (28.0-34.0); Mean Corpuscular Volume 102.5 fL (81-99); Mean Platelet Volume 10.4 fL (7.4-10.4); Monocytes # 0.1 10^3/uL (0.2-0.9); Monocytes % 1.2 %; Neutrophils # 5.45 10^3/uL (1.8-7.7); Neutrophils % 92.2 %; Nucleated Red Blood Cells % 0 %; Platelet Count 147 10^3/cmm (130-400); Red Blood Count 3.55 10^6/uL (4.1-5.3); Red Cell Distribution Width 15.6 % (12.1-15.1); White Blood Count 5.9 10^3/uL (4.0-10.0)
[2021-06-17] MEDS: heparin 5,000 unit/mL INJ 1 mL 5000 UNIT SUBCUT ×2 (04:59→18:42)
[2021-06-17] MEDS: levothyroxine 150 mcg Tablet PO (04:59)
[2021-06-17 05:11] LABS: Calcium 8.1 mg/dL (8.5-10.5)
[2021-06-17 05:27] LABS: Slide Review Slide Review Perform
[2021-06-17 05:28] LABS: 25 Hydroxy Vitamin D 27 ng/mL (30-100); Alanine Aminotransferase 11 U/L (0-33); Albumin Level 3.1 g/dL (3.5-5.2); Alkaline Phosphatase 162 IU/L (35-105); Anion Gap 14.5 (5-19); Aspartate Amino Transferase 19 U/L (0-32); Blood Urea Nitrogen 21 mg/dL (6-20); Carbon Dioxide 24 mmol/L (22-29); Chloride 95 mmol/L (98-107); Ferritin 980 ng/mL (15-150); Globulin 4.1 g/dL (1.3-4.6); Glomerular Filtration Rate 10.3 mL/min (90-130); Glucose 174 mg/dL (65-115); Iron 34 ug/dL (37-145); Magnesium 2.1 mg/dL (1.7-2.3); Osmolality Calculated 275 mOsm/kg (285-295); Percent Saturation 30.6 % (20-50); Phosphorus 3.4 mg/dL (2.5-4.5); Potassium 4.5 mmol/L (3.5-5.1); Sodium 129 mmol/L (136-145); Total Bilirubin 0.5 mg/dL (0.15-1.2); Total Iron Binding Capacity 111 mcg/dl; Total Protein 7.2 g/dL (6.6-8.7); Unsaturated Iron Binding 77 ug/dL (112-347)
--- NOTE | 2021-06-17 06:44 | PC.NURSE ---
Shift Note Frequent safety and comfort rounds continue. Orders and/or nursing care completed as indicated. Patient monitored for response to intervention and treatment. Education provided includes left and right heart catheterization. Patient verbalized complete understanding. Consent signed and placed in chart. Patient prepped and ready. Patient denies pain this morning. No distress observed. Will continue to monitor.
--- NOTE | 2021-06-17 06:56 | P.PN_ITS ---
Subjective Subjective: Interval history: feels better. no n/v/f/c/kearney/d/sob. dec edema. awaiting cardiac cath today. Medications: Reviewed: Yes Medication Review Details: Current Medications Hydrocodone Bitart/Acetaminophen (Hydrocodone-Acetaminophen 5-325 Mg Tablet) 1 tab PO Q6H PRN PRN Reason: pain Last Admin: 06/16/21 20:13 Dose: 1 tab Documented by: Albuterol Sulfate (Albuterol 8 Gm Mdi) 2 puff INHALATION Q4H PRN PRN Reason: Shortness Of Breath Albuterol/Ipratropium (Ipratropium-Albuterol 3 Ml Neb) 3 ml INHALATION Q6H PRN PRN Reason: SHORTNESS OF BREATH Carvedilol (Carvedilol 25 Mg Tablet) 25 mg PO BID [facility] Last Admin: 06/16/21 18:25 Dose: 25 mg Documented by: Diphenhydramine HCl (Diphenhydramine 50 Mg Capsule) 50 mg PO ONCE ONE Stop: 06/17/21 09:01 Docusate Sodium (Docusate Sodium 100 Mg Capsule) 100 mg PO BID PRN PRN Reason: Constipation Fluticasone Propionate (Fluticasone Nasal [place] 16gm Btl) 2 spray NASAL DAILY [facility] Last Admin: 06/16/21 11:06 Dose: 2 spray Documented by: Furosemide (Furosemide 10 Mg/Ml Sdv 4ml) 40 mg IVP 0800,1400 [facility] Last Admin: 06/16/21 14:27 Dose: 40 mg Documented by: Guaifenesin (Guaifenesin 100 Mg/5 Ml Udc 10 Ml) 200 mg PO Q4H PRN PRN Reason: COUGH AND CONGESTION Last Admin: 06/16/21 20:13 Dose: 200 mg Documented by: Heparin Sodium (Beef Lung) (Heparin 5,000 Unit/Ml Inj 1 Ml) 5,000 unit SUBCUT Q12H [facility] Last Admin: 06/17/21 04:59 Dose: 5,000 unit Documented by: Hydralazine HCl (Hydralazine 25 Mg Tablet) 25 mg PO TID [facility] Last Admin: 06/16/21 22:01 Dose: 25 mg Documented by: Levofloxacin (Levofloxacin 500 Mg Tablet) 500 mg PO Q48H [facility]; Protocol Last Admin: 06/16/21 05:07 Dose: 500 mg Documented by: Levothyroxine Sodium (Levothyroxine 150 Mcg Tablet) 150 mcg PO QAM [facility] Last Admin: 06/17/21 04:59 Dose: 150 mcg Documented by: Lorazepam (Lorazepam 0.5 Mg Tablet) 0.5 mg PO ONCE PRN PRN Reason: ANXIETY Last Admin: 06/17/21 00:17 Dose: 0.5 mg Documented by: Losartan Potassium (Losartan 50 Mg Tablet) 50 mg PO DAILY [facility] Last Admin: 06/16/21 11:07 Dose: 50 mg Documented by: Multivitamins (P-Ukoffti-Znbcdjg C Tablet) 1 each PO DAILY [facility] Last Admin: 06/16/21 11:05 Dose: 1 each Documented by: Ondansetron HCl (Ondansetron 4 Mg Tablet) 4 mg PO Q6H PRN PRN Reason: nausea and vomiting Ondansetron HCl (Ondansetron 2 Mg/Ml Sdv 2 Ml) 4 mg IVP Q6H PRN PRN Reason: NAUSEA AND VOMITING Prednisone (Prednisone 20 Mg Tablet) 50 mg PO 0200,08,1999 [facility] Stop: 06/17/21 08:01 Last Admin: 06/17/21 01:55 Dose: 50 mg Documented by: Promethazine HCl/Dextromethorphan (Promethazine-Dm 6.25-15 Mg/5 Ml Syrup) 5 ml PO Q6H PRN PRN Reason: cough Spironolactone (Spironolactone 25 Mg Tablet) 25 mg PO DAILY [facility] Last Admin: 06/16/21 14:28 Dose: 25 mg Documented by: Vitals/I&O/Wt Last Vital Signs Temp 98 F 06/17/21 04:00 Pulse 81 06/17/21 04:27 Resp 20 H 06/17/21 04:00 BP 176/97 06/17/21 04:00 Pulse Ox 96 06/17/21 04:00 06/16/21 06/16/21 06/17/21 14:59 22:59 06:59 Intake Total 300 / 300 240 / 540 240 / 780 Output Total 3400 / 3400 250 / 3650 50 / 3700 Balance -3100 / -3100 -10 / -3110 190 / -2920 Weight last 48 hrs Weight 95.3 kg Physical Exam Narrative: EXAM NARRATIVE: comfortable, NARD, VS noted heent-nc/at, eomi, anicteric neck- supple lungs- good air movement b/l heart- reg, +TATY abd soft, nt, nd ext L BKA, 1+ edema neuro- a,a,o x 3 Data : 06/17/21 03:33 06/17/21 03:33 Micro: Microbiology 06/16/21 12:24 Gram Stain - Final Sputum - Expectorated Sputum 06/13/21 11:45 Anaerobic Culture - Preliminary Pleural Fluid 06/13/21 11:45 Gram Stain - Final Pleural Fluid Body Fluid Culture - Preliminary 06/15/21 03:42 Blood Culture - Preliminary Blood NEGATIVE TO DATE 06/15/21 03:40 Blood Culture - Preliminary Blood NEGATIVE TO DATE A&P Additional A&P Information 1. ESRD Dialysis in am- 2K, UF 2-3L as tolerated Continue Monday, Monday, Monday schedule. Dose medication for GFR less than 15 on dialysis. 2. Shortness of breath and pleural effusion Status post thoracentesis. Appears exudative, further diagnostic work up per pr imary team 3. Hypertension. -on beta-gabbie, add ARB or entresto as per cardiology -dec weight on dialysis 4. COPD- as per medicine -hypercapneia- bipap 5, anemia - hgb 10.5 ferritin 980, % sat 30 - no iv iron-may need 6. Renal - BMM- ca 8, normal phos and pth= 69, low vit d- replete po 7. hyponatremia-monitor w/ dialysis 8. systolic chf- low ef- for cath as per cardiology Patient seen and examined via telemedicine, with the assistance of the bedside RN > 25 min spent in evaluation and mgmt of patient Attestations Medical Necessity Statement*: per cardiology Time Spent in Patient Care: 16 - 35 minutes Coding Level of Care Code Acute Systems Testing Laboratory Technician for Ankitg Jay
[2021-06-17] MEDS: b-complex-vitamin c Tablet 1 EACH PO (08:08)
[2021-06-17] MEDS: carvedilol 25 mg Tablet PO ×2 (08:08→18:43)
[2021-06-17] MEDS: losartan 50 mg Tablet PO (08:08)
[2021-06-17] MEDS: diphenhydrAMINE 50 mg Capsule PO (08:09)
[2021-06-17] MEDS: fluticasone nasal spray 16gm Btl 2 SPRAY NASAL (08:10)
--- NOTE | 2021-06-17 09:29 | PC.NURSE ---
Shift Note Frequent safety and comfort rounds continue. Orders and/or nursing care completed as indicated. Patient monitored for response to intervention and treatment(s). Education provided includes[post cath procedures and restrictions]. Patient and/or b2b outside sales representative[state understanding. is at bedside.]. Will continue to monitor. HR, BP. Dr. Raines at bedside. Doctor okayed to hold diuretics this morning as patient scheduled at 1000 for heart cath.
--- NOTE | 2021-06-17 11:47 | PC.SOCIAL ---
IMM UPDATE Gave patient IMM update w/ at bedside. Provided them copy of pg 2. Verbalized understanding. 06/17/21 @ 1134. Initialed, dated, timed and placed in chart.
--- NOTE | 2021-06-17 12:19 | P.PN_ITS ---
Subjective Subjective: Interval history: Overall she is felling better.SOB has improved.Due for Cardiac Cath Today. Medications: Reviewed: Yes Medication Review Details: Current Medications Hydrocodone Bitart/Acetaminophen (Hydrocodone-Acetaminophen 5-325 Mg Tablet) 1 tab PO Q6H PRN PRN Reason: pain Last Admin: 06/16/21 20:13 Dose: 1 tab Documented by: Albuterol Sulfate (Albuterol 8 Gm Mdi) 2 puff INHALATION Q4H PRN PRN Reason: Shortness Of Breath Albuterol/Ipratropium (Ipratropium-Albuterol 3 Ml Neb) 3 ml INHALATION Q6H PRN PRN Reason: SHORTNESS OF BREATH Carvedilol (Carvedilol 25 Mg Tablet) 25 mg PO BID [facility] Last Admin: 06/16/21 18:25 Dose: 25 mg Documented by: Diphenhydramine HCl (Diphenhydramine 50 Mg Capsule) 50 mg PO ONCE ONE Stop: 06/17/21 09:01 Docusate Sodium (Docusate Sodium 100 Mg Capsule) 100 mg PO BID PRN PRN Reason: Constipation Fluticasone Propionate (Fluticasone Nasal Yulan 16gm Btl) 2 spray NASAL DAILY [facility] Last Admin: 06/16/21 11:06 Dose: 2 spray Documented by: Furosemide (Furosemide 10 Mg/Ml Sdv 4ml) 40 mg IVP 0800,1400 [facility] Last Admin: 06/16/21 14:27 Dose: 40 mg Documented by: Guaifenesin (Guaifenesin 100 Mg/5 Ml Udc 10 Ml) 200 mg PO Q4H PRN PRN Reason: COUGH AND CONGESTION Last Admin: 06/16/21 20:13 Dose: 200 mg Documented by: Heparin Sodium (Beef Lung) (Heparin 5,000 Unit/Ml Inj 1 Ml) 5,000 unit SUBCUT Q12H [facility] Last Admin: 06/17/21 04:59 Dose: 5,000 unit Documented by: Hydralazine HCl (Hydralazine 25 Mg Tablet) 25 mg PO TID [facility] Last Admin: 06/16/21 22:01 Dose: 25 mg Documented by: Levofloxacin (Levofloxacin 500 Mg Tablet) 500 mg PO Q48H [facility]; Protocol Last Admin: 06/16/21 05:07 Dose: 500 mg Documented by: Levothyroxine Sodium (Levothyroxine 150 Mcg Tablet) 150 mcg PO QAM [facility] Last Admin: 06/17/21 04:59 Dose: 150 mcg Documented by: Lorazepam (Lorazepam 0.5 Mg Tablet) 0.5 mg PO ONCE PRN PRN Reason: ANXIETY Last Admin: 06/17/21 00:17 Dose: 0.5 mg Documented by: Losartan Potassium (Losartan 50 Mg Tablet) 50 mg PO DAILY [facility] Last Admin: 06/16/21 11:07 Dose: 50 mg Documented by: Multivitamins (K-Ciigjfg-Hwtmsuj C Tablet) 1 each PO DAILY [facility] Last Admin: 06/16/21 11:05 Dose: 1 each Documented by: Ondansetron HCl (Ondansetron 4 Mg Tablet) 4 mg PO Q6H PRN PRN Reason: nausea and vomiting Ondansetron HCl (Ondansetron 2 Mg/Ml Sdv 2 Ml) 4 mg IVP Q6H PRN PRN Reason: NAUSEA AND VOMITING Prednisone (Prednisone 20 Mg Tablet) 50 mg PO 0200,0800,1999 [facility] Stop: 06/17/21 08:01 Last Admin: 06/17/21 01:55 Dose: 50 mg Documented by: Promethazine HCl/Dextromethorphan (Promethazine-Dm 6.25-15 Mg/5 Ml Syrup) 5 ml PO Q6H PRN PRN Reason: cough Spironolactone (Spironolactone 25 Mg Tablet) 25 mg PO DAILY [facility] Last Admin: 06/16/21 14:28 Dose: 25 mg Documented by: Vitals/I&O/Wt Last Vital Signs Temp 97.6 F 06/17/21 11:44 Pulse 76 06/17/21 11:44 Resp 18 06/17/21 11:44 BP 177/85 06/17/21 11:44 Pulse Ox 91 06/17/21 11:44 06/16/21 06/17/21 06/17/21 22:59 06:59 14:59 Intake Total 240 / 540 240 / 780 Output Total 250 / 3650 50 / 3700 Balance -10 / -3110 190 / -2920 Weight last 48 hrs Weight 95.3 kg Physical Exam Const: COMMON NORMALS: patient oriented x3 Resp: EFFORT & INSPECTION: Yes symmetric chest movement OTHER: Diminished air entry bilaterally more on the left lung. Cardio: COMMON NORMALS: regular rate, regular rhythm, S1 normal heart sound present, S2 normal heart sound present, No gallops present (Cardio), No murmurs present (Cardio), No rub (Cardio) and Peripheral pulses 2+ throughout RATE: regular rate RHYTHM: regular rhythm HEART SOUNDS: S1 normal heart sound present and S2 normal heart sound present PERIPHERAL PULSES: Peripheral pulses 2+ throughout GI: COMMON NORMALS: Normal to inspection, nondistended, normoactive bowel sounds present, Soft to palpation, non-tender, No hepatosplenomegaly present and no masses AUSCULTATION: Yes normoactive bowel sounds PALPATION: Yes Soft to palpation and Yes No hepatosplenomegaly present RECTAL EXAM: deferred Extremity: COMMON NORMALS: no clubbing, cyanosis or edema and no pedal edema NARRATIVE EXTREMITY EXAM: S/P LT BKA . Lymphedema of the right lower extremity. Neuro: COMMON NORMALS: patient oriented x3 Data : 06/17/21 03:33 06/17/21 03:33 Micro: Microbiology 06/16/21 12:24 Gram Stain - Final Sputum - Expectorated Sputum 06/13/21 11:45 Anaerobic Culture - Preliminary Pleural Fluid 06/13/21 11:45 Gram Stain - Final Pleural Fluid Body Fluid Culture - Preliminary A&P Assessment and plan (1) Large pleural effusion: Status: Acute (2) Heart failure with reduced ejection fraction: Status: Acute (3) Increasing shortness of breath: Status: Acute (4) Difficult intravenous access: Status: Acute (5) Neuropathy: Status: Acute (6) Hypertension: Status: Acute Qualifiers: Hypertension type: essential hypertension Qualified Code(s): I10 - Essential (primary) hypertension (7) ESRD (end stage renal disease): Status: Acute Additional A&P Information #CAD : Extremely calcified tight mid LAD lesion as well as Diagonal lesion.Will need atherectomy. #Symptomatic large pleural effusion: CT chest without contrast: Moderate to large left pleural effusion with associated lower lobe atelectasis. Superimposed pneumonia not excluded. Xray chest : Persistent Moderate left pleural effusion and small right effusion. 2D echo: Mildly dilated left ventricle. Severely decreased left ventricular systolic function. Left ventricular ejection fraction is estimated at 15 %. There is severe global hypokinesis with relative sparing of basal to mid inferolateral guardado. Restrictive diastolic filling pattern with severely increased filling pressure. Mildly increased right ventricular size. Moderately decreased right ventricular systolic function. Mild biatrial enlargement. Moderate tricuspid valve regurgitation. Severely increased pulmonary artery pressure estimated at 62 mmHg. S/p: Left thoracentesis: With removal of 1100 cc yellow pleural fluid. Pleural fluid analysis as per light criteria is consistent with exudative effusi on possibly secondary to pneumonia, cannot conclusively rule out pseudoexudate, though the patient has not been on Lasix or other diuretic, longstanding pleural effusion, can have pseudoexudative characteristics even in absence of diuretic use.Pleural fluid proBNP will be helpful, given the fact that the patient has significant heart failure with reduced ejection fraction. pleural fluid pathology: Chronic inflammation with reactive mesothelial cells. No malignancy identified.) Continue levofloxacin 500 mg p.o. every 48 hour daily for now. #Decempensated Heart failure with Severely reduced ejection fraction: Patient is due for LHC/RHC in am.To rule out underlying coronary artery disease. Appreciate Cardiology consult: End stage Renal disease: ( MWF ) Nephrology on board Anemia: Hemoglobin stable Type 2 diabetes: Patient has been taken off insulin Lymphedema of right leg without any active signs of cellulitis, follows up with wound care Does have signs of venous stasis dermatitis Full code Renal dialysis diet DVT :Heparin 5000 sc q12 h daily She will need outpatient follow-up with pulmonology for mediastinal lymphadenopathy Attestations Medical Necessity Statement*: Patient needs to be in hospital for the management of Symptomatic large pleural effusion,decompensated heart failure with reduced E.F ,CAD and need for atherectomy. Coding Level of Care Code Acute Product Sales Representative for Gregorio Fwd Diagnoses Large pleural effusion J90 Heart failure with reduced ejection fraction I50.20 Increasing shortness of breath R06.02 Difficult intravenous access Z78.9 Neuropathy G62.9 Hypertension I10 Hypertension type: essential hypertension ESRD (end stage renal disease) N18.6
[2021-06-17] MEDS: losartan 50 mg Tablet 25 MG PO (14:15)
--- NOTE | 2021-06-17 14:30 | PC.NURSE ---
Patient taken to dialysis on hospital bed
--- NOTE | 2021-06-17 18:23 | XACV_ITS ---
Exam Room: [facility] Ht: 168 cm Wt: 95 kg BSA: 2.14 m2 Gender: Female : 1960 Any Known Allergies: Contrast Exam Priority: Routine Indication(s): - CHF Procedure(s): Procedure Description: Diagnostic procedure Procedure Description: Left Heart Catheterization Procedure Description: Coronary Angiography Diagnostic Cath Status: Urgent Diagnostic Findings * Right Coronary Artery has no disease. It is a large, dominant vessel. * Proximal Left Anterior Descending: obstructive 70% stenosis, YANIQUE: 3 flow. It is a heavily calcified vessel. * Mid Left Anterior Descending to Mid Left Anterior Descending: severe 85% stenosis, YANIQUE: 3 flow. Heavy calcification is noted and there is bifurcation disease present with involvement of of the diagonal artery. * First Obtuse Marginal Branch Segment: severe 90% stenosis, YANIQUE: 3 flow. Small sized artery. * Left Main has no disease. * Proximal Circumflex: moderate 50% stenosis, YANIQUE: 3 flow. * 1st Diagonal: obstructive 70% stenosis, YANIQUE: 3 flow. * Coronary angiography shows right dominance. Conclusions 1. There is severe proximal to mid LAD, heavily calcified stenosis. There is also severe ostial diagonal artery stenosis. 2. OM 1 is a small sized vessel and has obstructive disease. Recommendations * Given severe coronary artery disease, we will proceed with PCI of the proximal to mid LAD/diagonal artery. We will stage the procedure as will need arthrectomy and may require ICU bed afterwards that is not available today. * Continue aspirin and statin. We will load her with Plavix. * Transfer back to CSU. Interventional RX Recommendation: PCI w/o planned CABG Diagnostic RX Recommendation: PCI w/o planned CABG Pressures Phase:Rest AO : 193 / 77 ( 119 ) @ 9:49:00 AM 190 / 77 ( 118 ) @ 9:49:00 AM 153 / 75 ( 109 ) @ 9:50:00 AM 144 / 76 ( 106 ) @ 9:53:00 AM 176 / 66 ( 108 ) @ 10:01:00 AM 175 / 66 ( 107 ) @ 10:01:00 AM LV : 228 / 12 / 105 @ 10:01:00 AM 184 / -4 / 20 @ 10:01:00 AM 183 / -5 / 18 @ 10:01:00 AM Valves Phase:DefaultPhase AV : 6.0 @ 11:33:19 AM AV Mean Gradient: 8.0 @ 11:33:19 AM Clinical Evaluation EBL: 5mL-10mL Procedural Details Procedure Consent Obtained. Pre-Procedure Time Out. Identified patient by full name and date of as verbalized by the patient/guarantor. Does the consent match the physician's order: Yes. Accurate & Complete Informed Consent: Yes. Inpatient/Outpatient History & Physical on Chart: Yes. If H&P is completed, is and addenduem needed: No; If yes, is the addendum complete: N/A. Visualize and Verify Site with Patient/Guarantor: N/A. Relevant Radiology Images available: N/A. Pre-op teaching completed and patient verbalized understanding. The risks, benefits, and alternatives of sedation and/or procedure were discussed by physician. The patient agrees to continue. Procedure started. [facility] Clinical Fraility Score: 4: Vulnerable. 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 Chest Pain Symptom Assessment: Atypical Angina. Cardiovascular Instability: No. Correct patient, site and procedure confirmed by cath team. Current diagnosis: Heart Failure; Reduced EF. PERRLA. Strong, equal hand marketing operations assistant bilaterally. Lungs clear x 5 lobes. IV Site on Arrival: 20 gauge in the left anticubital. IV Fluids: 0.9% NaCl at KVO. 0 mL infused prior to recyclable materials collector. Pre Procedural Pulses: bilateral radial was 2+. Pre Procedural Pulses: bilateral posterior tibial was Doppled. Pre Procedural Pulses: bilateral dorsalis pedis was Doppled. Oxygen started at 2liters/min via nasal canula. bilateral groins was prepped with chloroprep then draped in the usual sterile fashion. Physician notified. Admit Source: In Patient. Physician arrived. Equipment: 5F - Femoral. Equipment: 6F - Femoral. Heparinized Saline (2 units/mL), 1000 mL bag. Kit, Micropuncture. Cardiac Cath Pack. ACIST Manifold Kit Model BT 2000. Physician scrubbed in. Immediate Pre-Procedure Time Out. Correct Patient: Yes; Correct Procedure: Yes; Correct Site: Yes; Correct Patient Position: Yes; Correct Supplies: Yes; Dried Flammable Prep: Yes; Blood Products Available: N/A;. Lidocaine 1% infiltrated to the right groin. Current Diagnosis : Heart Failure; Reduced EF. CONTRAST ALLERGY- PATIENT PREMEDICATED PRIOR TO PROCEDURE. AWARE. OKAY TO PROCEED. Arterial access obtained with micropuncture set. A CRD 5F JL4 Diagnostic Catheter was advanced over the wire and used for left coronary angiography. Catheter seated in the LCS. Multiple views taken of left coronary artery. Catheter removed over the wire. A CRD 5F JR4 Diagnostic Catheter was advanced over the wire and used for Right coronary angiography. Multiple views taken of right coronary artery. JR 4 into LV over the wire. EDP Sample taken: LV 228/12,105; HR: 73 BPM; SpO2: 94%. EDP Sample taken: LV 184/-5,20; HR: 74 BPM; SpO2: 93%. Pullback taken: LV 183/-6,18; AO 176/66(108); Mean: 8mmHg, Peak to Peak: 6mmHg, SEP: 23sec/min; HR: 73 BPM; SpO2: 95%. Catheter removed over the wire. Hand injection of the common femoral, right. Physician review of cine films. Physician scrubbed out. Manual Compression was successful in obtaining hemostatsis at the right femoral artery insertion site. No hematoma formation noted. Sheath(s) removed and manual pressure held until hemostasis was achieved. Sterile 4x4 and Op-site applied to the puncture site. No oozing or hematoma noted. Post sheath removal instructions were given and the patient verbalized understanding. Post Procedure: Pulses reassessed and unchanged. PERRLA. Strong, equal hand marketing operations assistant bilaterally. No VTE prophylaxis required. Medication's Wasted: Lidocaine 1% = 5 ml. Medication's Wasted: Heparin = 1000 units. Medication's Wasted: Fentanyl = 50 mcg. Total IV fluids: 39 mL. Fluoro: 4:00. Contrast type used: Visipaque 320 mgI/mL, 200 mL bottle. Visipaque 94 ml. Medication's Wasted: Versed = 1 mg. Post-op diagnosis: Severe Multivessel CAD. Complications: None. Estimated blood loss: 5mL-10mL. Procedure completed. Patient transferred by bed to 1st floor. Vital chart was stopped. Access Site Site: Right Femoral artery Sheath Size: 6 Fr Hemostasis Method: Manual Compression Hemostasis Success: Successful Procedure Medications Start: 10:40 AM Stop: 10:40 AM Medication: Versed Amount: 1 mg Route: I.V. Start: 10:42 AM Stop: 10:42 AM Medication: Versed Amount: 1 mg Route: I.V. Start: 10:42 AM Stop: 10:42 AM Medication: Fentanyl Amount: 50 mcg Route: I.V. Start: 10:46 AM Stop: 10:46 AM Medication: Versed Amount: 1 mg Route: I.V. I, the attending physician, have reviewed and verified all procedure medications. Yes, all medications given per verbal order History/Risk Factors Hypertension: Yes Dyslipidemia: No Peripheral Arterial Disease (PAD): No Myocardial Infarction (ME): No Obesity: Yes Renal Disease: Yes Tobacco Use: Never Dialysis: Current Prior Interventions PCI: No CABG: Yes Valve Surgery: No Report Signatures Finalized by Fly Long MD on 06/29/2021 11:30 AM
--- NOTE | 2021-06-17 18:51 | PC.NURSE ---
Shift Note Frequent safety and comfort rounds continue. Orders and/or nursing care completed as indicated. Patient monitored for response to intervention and treatment(s). Education provided includes[post cath care]. Patient and/or sales representative supervisor [states understanding]. Will continue to monitor BP, right femoral site, respiratory effort..
--- NOTE | 2021-06-17 23:09 | W.PM.OPSUD ---
Surgery/Procedure H&P Update DATE OF PROCEDURE: June 17, 2021 DATE H&P PERFORMED: 06/15/21 H&P UPDATE INFORMATION: I have reviewed H&P completed within last 30 days, I have examined patient prior to procedure and No changes to prior documentation PREOP DIAGNOSIS: New onset heart failure with reduced ejection fraction PRIMARY INDICATION FOR PROCEDURE: New onset heart failure with reduced ejection fraction PLANNED PROCEDURE: Left heart cath with possible percutaneous coronary intervention PATIENT REASSESSED PRIOR TO SEDATION, WITH NO CHANGE NOTED: Yes PHYSICAL EXAM: alert, oriented x 3, clear to auscultation bilaterally and regular rate & rhythm AIRWAY EVAL/ANESTHESIA PLAN: ASA III, Monitored Anesthesia, Local Anesthesia, Risks, benefits & alternatives of sedation and/or procedure discussed and Patient agrees to continue as planned
--- NOTE | 2021-06-17 23:16 | PM.MISC ---
Miscellaneous Note Purpose of Documentation: Brief procedure note Note: Patient underwent coronary angiogram today to assess heart failure. She has severe, heavily calcified 85% stenosis of the mid LAD. Large diagonal artery also has a ostial severe 75% stenosis. Ostial Left circumflex artery has a moderate 40-50% stenosis. RCA is a large artery and is patent. Patient will need PCI of the LAD/Diagonal artery with arthrectomy. We will stage it on Monday as she needs further optimization of the respiratory status. Also we did not have ICU bed availability today and given high risk nature of the procedure, she may require ICU bed post procedure. May also require impella support but we will decide on that on the day of procedure based on her condition at that time. Continue aspirin. Load with Plavix 600mg and then 75mg daily.
[2021-06-18] VITALS (10 sets, daily range): BP systolic 156–168; BP diastolic 61–98; PULSE 70–111; RESP 16–18; TEMP 36.5–36.7; O2SAT 93–96
--- NOTE | 2021-06-18 00:57 | PC.NURSE ---
Around 0030: Patient c/o itching to skin around perineum and buttocks. Skin dry and intact with red leathery appearance. Notified Dr. Hooks. Orders received, see JAN.
[2021-06-18] MEDS: guaiFENesin 100 mg/5 mL UDC 10 mL 200 MG PO ×2 (01:36→21:24)
[2021-06-18] MEDS: ALPRAZolam 0.5 mg Tablet 0.25 MG PO (01:36)
[2021-06-18] MEDS: nystatin cream 30 gm 1 APPLIC TOPICAL (01:44)
[2021-06-18 04:12] LABS: Basophils % 0.1 %; Hematocrit 35.8 % (37.0-47.0); Hemoglobin 11.7 g/dL (11.5-15.3); Lymphocytes # 0.7 10^3/uL (0.8-4.8); Lymphocytes % 8.6 %; Mean Corpuscular HGB Conc 32.7 g/dL (30.0-36.0); Mean Corpuscular Hemoglobin 33.2 pg (28.0-34.0); Mean Corpuscular Volume 101.7 fL (81-99); Mean Platelet Volume 9.7 fL (7.4-10.4); Monocytes # 0.6 10^3/uL (0.2-0.9); Monocytes % 6.9 %; Neutrophils # 6.92 10^3/uL (1.8-7.7); Nucleated Red Blood Cells % 0 %; Platelet Count 167 10^3/cmm (130-400); Red Blood Count 3.52 10^6/uL (4.1-5.3); Red Cell Distribution Width 16.1 % (12.1-15.1); White Blood Count 8.2 10^3/uL (4.0-10.0)
[2021-06-18 04:36] LABS: Alanine Aminotransferase 11 U/L (0-33); Alkaline Phosphatase 136 IU/L (35-105); Anion Gap 14.9 (5-19); Aspartate Amino Transferase 19 U/L (0-32); Blood Urea Nitrogen 22 mg/dL (6-20); Calcium 8.1 mg/dL (8.5-10.5); Carbon Dioxide 25 mmol/L (22-29); Chloride 98 mmol/L (98-107); Globulin 3.8 g/dL (1.3-4.6); Glomerular Filtration Rate 14.4 mL/min (90-130); Glucose 214 mg/dL (65-115); Osmolality Calculated 288 mOsm/kg (285-295); Phosphorus 2.6 mg/dL (2.5-4.5); Potassium 3.9 mmol/L (3.5-5.1); Sodium 134 mmol/L (136-145); Total Bilirubin 0.5 mg/dL (0.15-1.2); Total Protein 6.8 g/dL (6.6-8.7)
[2021-06-18] MEDS: levoFLOXacin 500 mg Tablet PO (06:07)
[2021-06-18] MEDS: heparin 5,000 unit/mL INJ 1 mL 5000 UNIT SUBCUT ×2 (06:08→18:25)
[2021-06-18] MEDS: levothyroxine 150 mcg Tablet PO (06:08)
[2021-06-18] MEDS: FUROsemide 10 mg/mL SDV 4mL 40 MG IVP (09:36)
[2021-06-18] MEDS: losartan 50 mg Tablet 75 MG PO (09:40)
[2021-06-18] MEDS: spironolactone 25 mg Tablet PO ×3 (09:40→18:38)
[2021-06-18] MEDS: b-complex-vitamin c Tablet 1 EACH PO (09:40)
[2021-06-18] MEDS: fluticasone nasal spray 16gm Btl 2 SPRAY NASAL (09:41)
[2021-06-18] MEDS: carvedilol 25 mg Tablet PO ×2 (09:41→18:21)
--- NOTE | 2021-06-18 10:33 | P.PN_ITS ---
Subjective Subjective: Interval history: s/p LHC by Dr. Long, found to have calcified mid LAD and proximal D1 stenosis. Medications: Reviewed: Yes Vitals/I&O/Wt Last Vital Signs Temp 97.9 F 06/18/21 04:04 Pulse 70 06/18/21 08:00 Resp 17 06/18/21 08:00 BP 160/73 06/18/21 09:40 Pulse Ox 96 06/18/21 08:00 06/17/21 06/18/21 06/18/21 22:59 06:59 14:59 Intake Total 300 / 300 400 / 700 Output Total 2800 / 2800 500 / 3300 Balance -2500 / -2500 -100 / -2600 Weight last 48 hrs Weight 218 lb 7.649 oz Weight 210 lb 1.608 oz Physical Exam Narrative: EXAM NARRATIVE: GENERAL: obese woman sitting in bed in no acute distress HEENT: Pupils equal round reactive to light. No pallor or icterus. NECK: Elevated JVD. No carotid bruit. CARDIOVASCULAR SYSTEM: S1-S2 regular. PMI displaced. grade 3/6 SM in LLSB. RESPIRATORY SYSTEM: Absent breath sounds bilateral mid to basal posterior lung martin (L>R). No wheezes or rhonchi heard. ABDOMEN: Soft, nontender and nondistended. Normal bowel sounds present. EXTREMITIES: No cyanosis or clubbing. 1+ pitting and non pitting edema below knee on right. 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 No focal neurological deficits. SKIN: Normal turgor and temperature. PSYCH: Normal insight and judgment. Data : 06/18/21 03:46 06/18/21 03:46 Micro: Microbiology 06/13/21 11:45 Anaerobic Culture - Preliminary Pleural Fluid 06/16/21 12:24 Gram Stain - Final Sputum - Expectorated Sputum Sputum Culture - Preliminary 06/13/21 11:45 Gram Stain - Final Pleural Fluid Body Fluid Culture - Final A&P Assessment and plan (1) Heart failure with reduced ejection fraction: LVEF (55-->15-20%)On coreg. Currently on losartan 75 mg and increase aldactone to 50 mg daily. -continue to diurese. will increase lasix to 80 mg IV BID. -s/p LHC on . Status: Acute (2) CAD (coronary artery disease): s/p LHC by Dr. Long, found to have calcified mid LAD and proximal D1 stenosis. - Plan for atherectomy and intervention on Monday -will need to be premedicated given iodine allergy (hives). -start on ASA 81 mg and statin. Status: Acute Qualifiers: Coronary Disease-Associated Artery/Lesion type: [place] artery [place] vs. transplanted heart: [place] heart Associated angina: without angina Qualified Code(s): I25.10 - Atherosclerotic heart disease of [place] coronary artery without angina pectoris (3) Large pleural effusion: s/p thoracentesis with removal of 1100 ml of pleural fluid. Status: Acute (4) Hypertension: Blood pressure elevated. Status: Acute Qualifiers: Hypertension type: essential hypertension Qualified Code(s): I10 - Essential (primary) hypertension (5) ESRD (end stage renal disease): She is due for dialysis tomorrow. Status: Acute (6) Diabetes: Status: Acute Additional A&P Information Macrocytic anemia Thrombocytopenia Elevated alkaline phosphatase Thank you for allowing me to participate in patient's care. Please feel free to call with questions or concerns. Attestations Medical Necessity Statement*: needs hospital stay for CHF and CAD Time Spent in Patient Care: 16 - 35 minutes Coding Level of Care Code Acute Grip for Chg Fwd Diagnoses Heart failure with reduced ejection fraction I50.20 CAD (coronary artery disease) I25.10 Coronary Disease-Associated Artery/Lesion type: [place] artery [place] vs. transplanted heart: [place] heart Associated angina: without angina Large pleural effusion J90 Hypertension I10 Hypertension type: essential hypertension ESRD (end stage renal disease) N18.6 Diabetes E11.9
--- NOTE | 2021-06-18 11:29 | P.PN_ITS ---
Subjective Subjective: Interval history: Ms. Shaw is doing well today with no acute complaints. No chest pain, palpitations, shortness of breath. Following hospitalization, her extremity ed sam is improving. C noted yesterday for multivessel disease, plan for PCI on Monday/Monday next week. Medications: Reviewed: Yes Medication Review Details: Current Medications Hydrocodone Bitart/Acetaminophen (Hydrocodone-Acetaminophen 5-325 Mg Tablet) 1 tab PO Q6H PRN PRN Reason: pain Last Admin: 06/16/21 20:13 Dose: 1 tab Documented by: Albuterol Sulfate (Albuterol 8 Gm Mdi) 2 puff INHALATION Q4H PRN PRN Reason: Shortness Of Breath Albuterol/Ipratropium (Ipratropium-Albuterol 3 Ml Neb) 3 ml INHALATION Q6H PRN PRN Reason: SHORTNESS OF BREATH Carvedilol (Carvedilol 25 Mg Tablet) 25 mg PO BID [facility] Last Admin: 06/16/21 18:25 Dose: 25 mg Documented by: Diphenhydramine HCl (Diphenhydramine 50 Mg Capsule) 50 mg PO ONCE ONE Stop: 06/17/21 09:01 Docusate Sodium (Docusate Sodium 100 Mg Capsule) 100 mg PO BID PRN PRN Reason: Constipation Fluticasone Propionate (Fluticasone Nasal [place] 16gm Btl) 2 spray NASAL DAILY [facility] Last Admin: 06/16/21 11:06 Dose: 2 spray Documented by: Furosemide (Furosemide 10 Mg/Ml Sdv 4ml) 40 mg IVP 0800,1400 [facility] Last Admin: 06/16/21 14:27 Dose: 40 mg Documented by: Guaifenesin (Guaifenesin 100 Mg/5 Ml Udc 10 Ml) 200 mg PO Q4H PRN PRN Reason: COUGH AND CONGESTION Last Admin: 06/16/21 20:13 Dose: 200 mg Documented by: Heparin Sodium (Beef Lung) (Heparin 5,000 Unit/Ml Inj 1 Ml) 5,000 unit SUBCUT Q12H [facility] Last Admin: 06/17/21 04:59 Dose: 5,000 unit Documented by: Hydralazine HCl (Hydralazine 25 Mg Tablet) 25 mg PO TID [facility] Last Admin: 06/16/21 22:01 Dose: 25 mg Documented by: Levofloxacin (Levofloxacin 500 Mg Tablet) 500 mg PO Q48H [facility]; Protocol Last Admin: 06/16/21 05:07 Dose: 500 mg Documented by: Levothyroxine Sodium (Levothyroxine 150 Mcg Tablet) 150 mcg PO QAM [facility] Last Admin: 06/17/21 04:59 Dose: 150 mcg Documented by: Lorazepam (Lorazepam 0.5 Mg Tablet) 0.5 mg PO ONCE PRN PRN Reason: ANXIETY Last Admin: 06/17/21 00:17 Dose: 0.5 mg Documented by: Losartan Potassium (Losartan 50 Mg Tablet) 50 mg PO DAILY [facility] Last Admin: 06/16/21 11:07 Dose: 50 mg Documented by: Multivitamins (L-Aaqfcan-Hmfgidh C Tablet) 1 each PO DAILY [facility] Last Admin: 06/16/21 11:05 Dose: 1 each Documented by: Ondansetron HCl (Ondansetron 4 Mg Tablet) 4 mg PO Q6H PRN PRN Reason: nausea and vomiting Ondansetron HCl (Ondansetron 2 Mg/Ml Sdv 2 Ml) 4 mg IVP Q6H PRN PRN Reason: NAUSEA AND VOMITING Prednisone (Prednisone 20 Mg Tablet) 50 mg PO 0200,0800,1999 [facility] Stop: 06/17/21 08:01 Last Admin: 06/17/21 01:55 Dose: 50 mg Documented by: Promethazine HCl/Dextromethorphan (Promethazine-Dm 6.25-15 Mg/5 Ml Syrup) 5 ml PO Q6H PRN PRN Reason: cough Spironolactone (Spironolactone 25 Mg Tablet) 25 mg PO DAILY [facility] Last Admin: 06/16/21 14:28 Dose: 25 mg Documented by: Vitals/I&O/Wt Last Vital Signs Temp 97.9 F 06/18/21 04:04 Pulse 70 06/18/21 08:00 Resp 17 06/18/21 08:00 BP 160/73 06/18/21 09:40 Pulse Ox 96 06/18/21 08:00 06/17/21 06/18/21 06/18/21 22:59 06:59 14:59 Intake Total 300 / 300 400 / 700 Output Total 2800 / 2800 500 / 3300 Balance -2500 / -2500 -100 / -2600 Weight last 48 hrs Weight 99.1 kg Weight 95.3 kg Physical Exam Narrative: EXAM NARRATIVE: Constitutional: Awake, comfortable HEENT: Wet mucosa, no jvp, non icteric Lungs: Bilaterally clear without discernible wheeze, rales in all lung zones CVS: S1 S2, no murmurs Abdo: Soft, BS ok Ext 4: Minimal edema, peripheral perfusion with no cyanosis Neurological: Grossly non-focal Data : 06/18/21 03:46 06/18/21 03:46 Micro: Microbiology 06/16/21 12:24 Gram Stain - Final Sputum - Expectorated Sputum Sputum Culture - Final 06/13/21 11:45 Anaerobic Culture - Preliminary Pleural Fluid 06/13/21 11:45 Gram Stain - Final Pleural Fluid Body Fluid Culture - Final A&P Additional A&P Information 1. ESRD Dialysis requested for tomorrow; 2K, UF 2-3L as tolerated Continue Monday, Monday, Monday schedule next week Dose medication for GFR less than 15 on dialysis. 2. Shortness of breath and pleural effusion Status post thoracentesis. Appears exudative; mgmt noted per primary tea, 3. CAD LHC noted yesterday for multivessel disease, plan for PCI on Monday/Monday next week. 4. Chronic ESRD issues These to be handled in the outpatient dialysis clinic as part of standard monthly care. João Vazquez MD Nephrology [phone] Patient seen and examined via telemedicine, with the assistance of the bedside RN > 25 min spent in evaluation and mgmt of patient Attestations Medical Necessity Statement*: Eval for ESRD Coding Level of Care Code Acute Cabin Man for Gregorio Thompson
--- NOTE | 2021-06-18 14:14 | PM.PN ---
Subjective Subjective: Interval history: Patient was seen and examined this morning no acute events overnight. Underwent hemodialysis yesterday. Medications: Reviewed: Yes Medication Review Details: Current Medications Hydrocodone Bitart/Acetaminophen (Hydrocodone-Acetaminophen 5-325 Mg Tablet) 1 tab PO Q6H PRN PRN Reason: pain Last Admin: 06/16/21 20:13 Dose: 1 tab Documented by: Albuterol Sulfate (Albuterol 8 Gm Mdi) 2 puff INHALATION Q4H PRN PRN Reason: Shortness Of Breath Albuterol/Ipratropium (Ipratropium-Albuterol 3 Ml Neb) 3 ml INHALATION Q6H PRN PRN Reason: SHORTNESS OF BREATH Carvedilol (Carvedilol 25 Mg Tablet) 25 mg PO BID [facility] Last Admin: 06/16/21 18:25 Dose: 25 mg Documented by: Diphenhydramine HCl (Diphenhydramine 50 Mg Capsule) 50 mg PO ONCE ONE Stop: 06/17/21 09:01 Docusate Sodium (Docusate Sodium 100 Mg Capsule) 100 mg PO BID PRN PRN Reason: Constipation Fluticasone Propionate (Fluticasone Nasal [place] 16gm Btl) 2 spray NASAL DAILY [facility] Last Admin: 06/16/21 11:06 Dose: 2 spray Documented by: Furosemide (Furosemide 10 Mg/Ml Sdv 4ml) 40 mg IVP 0800,1400 [facility] Last Admin: 06/16/21 14:27 Dose: 40 mg Documented by: Guaifenesin (Guaifenesin 100 Mg/5 Ml Udc 10 Ml) 200 mg PO Q4H PRN PRN Reason: COUGH AND CONGESTION Last Admin: 06/16/21 20:13 Dose: 200 mg Documented by: Heparin Sodium (Beef Lung) (Heparin 5,000 Unit/Ml Inj 1 Ml) 5,000 unit SUBCUT Q12H [facility] Last Admin: 06/17/21 04:59 Dose: 5,000 unit Documented by: Hydralazine HCl (Hydralazine 25 Mg Tablet) 25 mg PO TID [facility] Last Admin: 06/16/21 22:01 Dose: 25 mg Documented by: Levofloxacin (Levofloxacin 500 Mg Tablet) 500 mg PO Q48H [facility]; Protocol Last Admin: 06/16/21 05:07 Dose: 500 mg Documented by: Levothyroxine Sodium (Levothyroxine 150 Mcg Tablet) 150 mcg PO QAM [facility] Last Admin: 06/17/21 04:59 Dose: 150 mcg Documented by: Lorazepam (Lorazepam 0.5 Mg Tablet) 0.5 mg PO ONCE PRN PRN Reason: ANXIETY Last Admin: 06/17/21 00:17 Dose: 0.5 mg Documented by: Losartan Potassium (Losartan 50 Mg Tablet) 50 mg PO DAILY [facility] Last Admin: 06/16/21 11:07 Dose: 50 mg Documented by: Multivitamins (N-Pmrgyot-Dlbvzes C Tablet) 1 each PO DAILY [facility] Last Admin: 06/16/21 11:05 Dose: 1 each Documented by: Ondansetron HCl (Ondansetron 4 Mg Tablet) 4 mg PO Q6H PRN PRN Reason: nausea and vomiting Ondansetron HCl (Ondansetron 2 Mg/Ml Sdv 2 Ml) 4 mg IVP Q6H PRN PRN Reason: NAUSEA AND VOMITING Prednisone (Prednisone 20 Mg Tablet) 50 mg PO 0200,0800,1999 [facility] Stop: 06/17/21 08:01 Last Admin: 06/17/21 01:55 Dose: 50 mg Documented by: Promethazine HCl/Dextromethorphan (Promethazine-Dm 6.25-15 Mg/5 Ml Syrup) 5 ml PO Q6H PRN PRN Reason: cough Spironolactone (Spironolactone 25 Mg Tablet) 25 mg PO DAILY [facility] Last Admin: 06/16/21 14:28 Dose: 25 mg Documented by: Vitals/I&O/Wt Last Vital Signs Temp 97.9 F 06/18/21 04:04 Pulse 108 H 06/18/21 12:00 Resp 18 06/18/21 12:00 BP 168/98 06/18/21 12:00 Pulse Ox 95 06/18/21 12:00 06/17/21 06/18/21 06/18/21 22:59 06:59 14:59 Intake Total 300 / 300 400 / 700 Output Total 2800 / 2800 500 / 3300 Balance -2500 / -2500 -100 / -2600 Weight last 48 hrs Weight 99.1 kg Physical Exam Const: COMMON NORMALS: patient oriented x3 Resp: EFFORT & INSPECTION: Yes symmetric chest movement OTHER: Diminished air entry bilaterally more on the left lung. Cardio: COMMON NORMALS: regular rate, regular rhythm, S1 normal heart sound present, S2 normal heart sound present, No gallops present (Cardio), No murmurs present (Cardio), No rub (Cardio) and Peripheral pulses 2+ throughout RATE: regular rate RHYTHM: regular rhythm HEART SOUNDS: S1 normal heart sound present and S2 normal heart sound present PERIPHERAL PULSES: Peripheral pulses 2+ throughout GI: COMMON NORMALS: Normal to inspection, nondistended, normoactive bowel sounds present, Soft to palpation, non-tender, No hepatosplenomegaly present and no masses AUSCULTATION: Yes normoactive bowel sounds PALPATION: Yes Soft to palpation and Yes No hepatosplenomegaly present RECTAL EXAM: deferred Extremity: COMMON NORMALS: no clubbing, cyanosis or edema and no pedal edema NARRATIVE EXTREMITY EXAM: S/P LT BKA . Lymphedema of the right lower extremity. Neuro: COMMON NORMALS: patient oriented x3 Data : 06/18/21 03:46 06/18/21 03:46 Micro: Microbiology 06/16/21 12:24 Gram Stain - Final Sputum - Expectorated Sputum Sputum Culture - Final 06/13/21 11:45 Anaerobic Culture - Preliminary Pleural Fluid 06/13/21 11:45 Gram Stain - Final Pleural Fluid Body Fluid Culture - Final A&P Assessment and plan (1) Large pleural effusion: Status: Acute (2) Heart failure with reduced ejection fraction: Status: Acute (3) Increasing shortness of breath: Status: Acute (4) Difficult intravenous access: Status: Acute (5) Neuropathy: Status: Acute (6) Hypertension: Status: Acute Qualifiers: Hypertension type: essential hypertension Qualified Code(s): I10 - Essential (primary) hypertension (7) ESRD (end stage renal disease): Status: Acute Additional A&P Information #CAD : Extremely calcified tight mid LAD lesion as well as Diagonal lesion.Will need atherectomy. #Symptomatic large pleural effusion: CT chest without contrast: Moderate to large left pleural effusion with associated lower lobe atelectasis. Superimposed pneumonia not excluded. Xray chest : Persistent Moderate left pleural effusion and small right effusion. 2D echo: Mildly dilated left ventricle. Severely decreased left ventricular systolic function. Left ventricular ejection fraction is estimated at 15 %. There is severe global hypokinesis with relative sparing of basal to mid inferolateral guard[place]. Restrictive diastolic filling pattern with severely increased filling pressure. Mildly increased right ventricular size. Moderately decreased right ventricular systolic function. Mild biatrial enlargement. Moderate tricuspid valve regurgitation. Severely increased pulmonary artery pressure estimated at 62 mmHg. S/p: Left thoracentesis: With removal of 1100 cc yellow pleural fluid. Pleural fluid analysis as per light criteria is consistent with exudative effusion possibly secondary to pneumonia, cannot conclusively rule out pseudoexudate, though the patient has not been on Lasix or other diuretic, longstanding pleural effusion, can have pseudoexudative characteristics even in absence of diuretic use.Pleural fluid proBNP will be helpful, given the fact that the patient has significant heart failure with reduced ejection fraction. pleural fluid pathology: Chronic inflammation with reactive mesothelial cells. No malignancy identified.) Empirically continue levofloxacin 500 mg p.o. every 48 hour daily for now. #Decempensated Heart failure with Severely reduced ejection fraction: Lasix 80 mg I.V Daily Carvedilol 25 mg p.o. twice daily Losartan 75 mg p.o. daily Spironolactone 50 mg p.o. daily End stage Renal disease: ( MWF ) Nephrology on board #CAD . Aspirin 81 mg p.o. daily s/p LHC by Dr. Long, found to have calcified mid LAD and proximal D1 stenosis. Due for PCI on Monday. Anemia: Hemoglobin stable Type 2 diabetes: Patient has been taken off insulin Lymphedema of right leg without any active signs of cellulitis, follows up with wound care Does have signs of venous stasis dermatitis Full code Renal dialysis diet DVT :Heparin 5000 sc q12 h daily She will need outpatient follow-up with pulmonology for mediastinal lymphadenopathy Attestations Medical Necessity Statement*: Patient needs to be in hospital for management of symptomatic heart failure, need for PCI. Coding Level of Care Code Acute Order Filler for Chg Fwd Diagnoses Large pleural effusion J90 Heart failure with reduced ejection fraction I50.20 Increasing shortness of breath R06.02 Difficult intravenous access Z78.9 Neuropathy G62.9 Hypertension I10 Hypertension type: essential hypertension ESRD (end stage renal disease) N18.6
[2021-06-18] MEDS: aspirin 81 mg Chew Tablet PO (18:24)
[2021-06-18] MEDS: FUROsemide 10 mg/mL SDV 4mL 80 MG IVP (18:24)
[2021-06-18] MEDS: atorvastatin 40 mg Tablet PO (21:24)
[2021-06-18] MEDS: temazepam 15 mg Capsule PO (21:24)
[2021-06-19] VITALS (12 sets, daily range): BP systolic 158–183; BP diastolic 74–95; PULSE 56–82; RESP 16–20; TEMP 36.4–36.9; O2SAT 93–96
[2021-06-19 03:19] LABS: Basophils % 0.4 %; Eosinophils # 0.1 10^3/uL (0.0-0.8); Eosinophils % 1.6 %; Hematocrit 34.6 % (37.0-47.0); Lymphocytes # 1.8 10^3/uL (0.8-4.8); Lymphocytes % 26.6 %; Mean Corpuscular HGB Conc 31.8 g/dL (30.0-36.0); Mean Corpuscular Hemoglobin 32.8 pg (28.0-34.0); Mean Corpuscular Volume 103.3 fL (81-99); Mean Platelet Volume 9.8 fL (7.4-10.4); Monocytes # 0.6 10^3/uL (0.2-0.9); Neutrophils # 4.19 10^3/uL (1.8-7.7); Neutrophils % 62.1 %; Nucleated Red Blood Cells % 0 %; Platelet Count 178 10^3/cmm (130-400); Red Blood Count 3.35 10^6/uL (4.1-5.3); Red Cell Distribution Width 16.6 % (12.1-15.1); White Blood Count 6.8 10^3/uL (4.0-10.0)
[2021-06-19 03:47] LABS: Alanine Aminotransferase 11 U/L (0-33); Alkaline Phosphatase 128 IU/L (35-105); Anion Gap 12.7 (5-19); Aspartate Amino Transferase 19 U/L (0-32); Blood Urea Nitrogen 33 mg/dL (6-20); Carbon Dioxide 27 mmol/L (22-29); Chloride 100 mmol/L (98-107); Chol HDL Ratio 2.36 mg/dL (0.0-4.40); Cholesterol 92 mg/dL (0-200); Globulin 3.4 g/dL (1.3-4.6); Glucose 121 mg/dL (65-115); HDL Cholesterol 39 mg/dL (60-100); LDL Cholesterol Calculated 39 mg/dL (50-129); LDL Cholesterol Direct 46 mg/dL (0-100); Magnesium 2.1 mg/dL (1.7-2.3); Osmolality Calculated 291 mOsm/kg (285-295); Phosphorus 3.1 mg/dL (2.5-4.5); Potassium 3.7 mmol/L (3.5-5.1); Sodium 136 mmol/L (136-145); Total Bilirubin 0.4 mg/dL (0.15-1.2); Total Protein 6.4 g/dL (6.6-8.7); Triglycerides 68 mg/dL (0-150)
[2021-06-19 03:56] LABS: Estmated Average Glucose 131; Hemoglobin A1C 6.2 % (4.0-6.0)
[2021-06-19] MEDS: levothyroxine 150 mcg Tablet PO (06:03)
[2021-06-19] MEDS: heparin 5,000 unit/mL INJ 1 mL 5000 UNIT SUBCUT ×2 (06:08→18:36)
[2021-06-19] MEDS: aspirin 81 mg Chew Tablet PO (08:48)
[2021-06-19] MEDS: spironolactone 25 mg Tablet 50 MG PO (08:48)
[2021-06-19] MEDS: losartan 50 mg Tablet 75 MG PO (08:48)
[2021-06-19] MEDS: carvedilol 25 mg Tablet PO ×2 (08:49→18:35)
[2021-06-19] MEDS: b-complex-vitamin c Tablet 1 EACH PO (08:50)
[2021-06-19] MEDS: fluticasone nasal spray 16gm Btl 2 SPRAY NASAL (08:50)
[2021-06-19] MEDS: FUROsemide 10 mg/mL SDV 4mL 80 MG IVP ×2 (08:50→15:00)
--- NOTE | 2021-06-19 09:41 | P.PN_ITS ---
Subjective Subjective: Interval history: Patient is overall doing well. Denies chest pain. Breathing is improved. Vitals/I&O/Wt Last Vital Signs Temp 98.5 F 06/19/21 07:50 Pulse 63 06/19/21 09:35 Resp 18 06/19/21 09:35 BP 171/85 06/19/21 08:48 Pulse Ox 96 06/19/21 09:35 06/18/21 06/19/21 06/19/21 22:59 06:59 14:59 Intake Total 450 / 450 Balance 450 / 450 Weight last 48 hrs Weight 218 lb 7.649 oz Physical Exam Narrative: EXAM NARRATIVE: GENERAL: Patient is alert, awake and oriented x3. [] NECK: No jugular vein distension. [] HEENT: No cyanosis. No icterus. No pallor. [] HEART: Regular S1 and S2. No murmur, rub or gallop. [] LUNGS: Has mild wheezing ABDOMEN: Soft, nontender and nondistended. Positive bowel sounds. No guarding, rebound or tenderness. [] CENTRAL NERVOUS SYSTEM: Grossly nonfocal. [] EXTREMITIES: Lower extremities with 1+ edema bilaterally. Pulses palpable in the lower extremities, both dorsalis pedis and posterior tibial. [] Data : 06/19/21 02:56 06/19/21 02:56 Micro: Microbiology 06/13/21 11:45 Anaerobic Culture - Preliminary Pleural Fluid 06/16/21 12:24 Gram Stain - Final Sputum - Expectorated Sputum Sputum Culture - Final A&P Assessment and plan (1) Heart failure with reduced ejection fraction: LVEF (55-->15-20%)On coreg. On losartan and Aldactone. Continue diuretics. Patient has severe mid LAD/diagonal artery disease. Plan for arthrectomy and PCI on Monday. Status: Acute (2) CAD (coronary artery disease): Has calcified mid LAD and proximal LAD diagonal artery stenosis. - Plan for atherectomy and intervention on Monday -will need to be premedicated given iodine allergy (hives). Continue aspirin. Loaded with Plavix 600 mg. Status: Acute Qualifiers: Coronary Disease-Associated Artery/Lesion type: [place] artery [place] vs. transplanted heart: [place] heart Associated angina: without angina Qualified Code(s): I25.10 - Atherosclerotic heart disease of [place] coronary artery without angina pectoris (3) Large pleural effusion: s/p thoracentesis with removal of 1100 ml of pleural fluid. Status: Acute (4) Hypertension: Blood pressure elevated. Status: Acute Qualifiers: Hypertension type: essential hypertension Qualified Code(s): I10 - Essential (primary) hypertension (5) ESRD (end stage renal disease): Will get dialysis today. Status: Acute (6) Diabetes: Status: Acute Additional A&P Information Macrocytic anemia Thrombocytopenia Elevated alkaline phosphatase Thank you for involving us with care of this patient. We will continue to follow. Please call with questions. Attestations Medical Necessity Statement*: Care expected to cross 2 midnights. Coding Level of Care Code Acute Fisheries Manager for Gregorio Fwd Diagnoses Heart failure with reduced ejection fraction I50.20 CAD (coronary artery disease) I25.10 Coronary Disease-Associated Artery/Lesion type: [place] artery [place] vs. transplanted heart: [place] heart Associated angina: without angina Large pleural effusion J90 Hypertension I10 Hypertension type: essential hypertension ESRD (end stage renal disease) N18.6 Diabetes E11.9
--- NOTE | 2021-06-19 10:10 | PC.SOCIAL ---
IMM UPDATE Gave patient IMM update. Provided them copy of pg 2. Verbalized understanding. Initialed, dated, timed and placed in chart.
[2021-06-19] MEDS: heparin, porcine 1,000 unit/mL INJ 10 mL 10000 UNIT HE (10:38)
--- NOTE | 2021-06-19 11:04 | P.PN_ITS ---
Subjective Subjective: Interval history: No new issues today. No chest pain, palpitations, shortness of breath. No uremia. No extremity edema. She is about to be transferred to hemodialysis. Medications: Reviewed: Yes Medication Review Details: Current Medications Hydrocodone Bitart/Acetaminophen (Hydrocodone-Acetaminophen 5-325 Mg Tablet) 1 tab PO Q6H PRN PRN Reason: pain Last Admin: 06/16/21 20:13 Dose: 1 tab Documented by: Albuterol Sulfate (Albuterol 8 Gm Mdi) 2 puff INHALATION Q4H PRN PRN Reason: Shortness Of Breath Albuterol/Ipratropium (Ipratropium-Albuterol 3 Ml Neb) 3 ml INHALATION Q6H PRN PRN Reason: SHORTNESS OF BREATH Carvedilol (Carvedilol 25 Mg Tablet) 25 mg PO BID [facility] Last Admin: 06/16/21 18:25 Dose: 25 mg Documented by: Diphenhydramine HCl (Diphenhydramine 50 Mg Capsule) 50 mg PO ONCE ONE Stop: 06/17/21 09:01 Docusate Sodium (Docusate Sodium 100 Mg Capsule) 100 mg PO BID PRN PRN Reason: Constipation Fluticasone Propionate (Fluticasone Nasal [place] 16gm Btl) 2 spray NASAL DAILY [facility] Last Admin: 06/16/21 11:06 Dose: 2 spray Documented by: Furosemide (Furosemide 10 Mg/Ml Sdv 4ml) 40 mg IVP 0800,1400 [facility] Last Admin: 06/16/21 14:27 Dose: 40 mg Documented by: Guaifenesin (Guaifenesin 100 Mg/5 Ml Udc 10 Ml) 200 mg PO Q4H PRN PRN Reason: COUGH AND CONGESTION Last Admin: 06/16/21 20:13 Dose: 200 mg Documented by: Heparin Sodium (Beef Lung) (Heparin 5,000 Unit/Ml Inj 1 Ml) 5,000 unit SUBCUT Q12H [facility] Last Admin: 06/17/21 04:59 Dose: 5,000 unit Documented by: Hydralazine HCl (Hydralazine 25 Mg Tablet) 25 mg PO TID [facility] Last Admin: 06/16/21 22:01 Dose: 25 mg Documented by: Levofloxacin (Levofloxacin 500 Mg Tablet) 500 mg PO Q48H [facility]; Protocol Last Admin: 06/16/21 05:07 Dose: 500 mg Documented by: Levothyroxine Sodium (Levothyroxine 150 Mcg Tablet) 150 mcg PO QAM [facility] Last Admin: 06/17/21 04:59 Dose: 150 mcg Documented by: Lorazepam (Lorazepam 0.5 Mg Tablet) 0.5 mg PO ONCE PRN PRN Reason: ANXIETY Last Admin: 06/17/21 00:17 Dose: 0.5 mg Documented by: Losartan Potassium (Losartan 50 Mg Tablet) 50 mg PO DAILY [facility] Last Admin: 06/16/21 11:07 Dose: 50 mg Documented by: Multivitamins (C-Ertbrsw-Yqctdmn C Tablet) 1 each PO DAILY [facility] Last Admin: 06/16/21 11:05 Dose: 1 each Documented by: Ondansetron HCl (Ondansetron 4 Mg Tablet) 4 mg PO Q6H PRN PRN Reason: nausea and vomiting Ondansetron HCl (Ondansetron 2 Mg/Ml Sdv 2 Ml) 4 mg IVP Q6H PRN PRN Reason: NAUSEA AND VOMITING Prednisone (Prednisone 20 Mg Tablet) 50 mg PO 0200,0800,1999 [facility] Stop: 06/17/21 08:01 Last Admin: 06/17/21 01:55 Dose: 50 mg Documented by: Promethazine HCl/Dextromethorphan (Promethazine-Dm 6.25-15 Mg/5 Ml Syrup) 5 ml PO Q6H PRN PRN Reason: cough Spironolactone (Spironolactone 25 Mg Tablet) 25 mg PO DAILY [facility] Last Admin: 06/16/21 14:28 Dose: 25 mg Documented by: Vitals/I&O/Wt Last Vital Signs Temp 98.5 F 06/19/21 07:50 Pulse 63 06/19/21 09:35 Resp 18 06/19/21 09:35 BP 171/85 06/19/21 08:48 Pulse Ox 96 06/19/21 09:35 06/18/21 06/19/21 06/19/21 22:59 06:59 14:59 Intake Total 450 / 450 Balance 450 / 450 Weight last 48 hrs Weight 99.1 kg Physical Exam Narrative: EXAM NARRATIVE: Constitutional: Awake, comfortable HEENT: Wet mucosa, no jvp, non icteric Lungs: Bilaterally clear without discernible wheeze, rales in all lung zones CVS: S1 S2, no murmurs Abdo: Soft, BS ok Ext 4: Minimal edema, peripheral perfusion with no cyanosis Neurological: Grossly non-focal Data : 06/19/21 02:56 06/19/21 02:56 Micro: Microbiology 06/13/21 11:45 Anaerobic Culture - Preliminary Pleural Fluid 06/16/21 12:24 Gram Stain - Final Sputum - Expectorated Sputum Sputum Culture - Final A&P Additional A&P Information 1. ESRD Dialysis today; 2K, UF 2-3L as tolerated Continue Monday, Monday, Monday schedule next week Dose medication for GFR less than 15 on dialysis. 2. Shortness of breath and pleural effusion Status post thoracentesis. Appears exudative; mgmt noted per primary team 3. CAD LHC noted or multivessel disease, plan for PCI on Monday/Monday next week. 4. Chronic ESRD issues These to be handled in the outpatient dialysis clinic as part of standard monthly care. João Vazquez MD Nephrology [phone] Patient seen and examined via telemedicine, with the assistance of the bedside RN > 25 min spent in evaluation and mgmt of patient Attestations Medical Necessity Statement*: ESRd mgmt Coding Level of Care Code Acute Home Service Technician for Gregorio Thompson
--- NOTE | 2021-06-19 14:54 | PC.NURSE ---
return from dialysis.appears to have tolerated well.
[2021-06-19] MEDS: levoFLOXacin 500 mg Tablet PO (15:00)
--- NOTE | 2021-06-19 15:23 | P.PN_ITS ---
Subjective Subjective: Interval history: Patient was seen and examined this morning, no acute events overnight, underwent hemodialysis today. Denies any chest pain, shortness of breath has improved. Medications: Reviewed: Yes Medication Review Details: Current Medications Hydrocodone Bitart/Acetaminophen (Hydrocodone-Acetaminophen 5-325 Mg Tablet) 1 tab PO Q6H PRN PRN Reason: pain Last Admin: 06/16/21 20:13 Dose: 1 tab Documented by: Albuterol Sulfate (Albuterol 8 Gm Mdi) 2 puff INHALATION Q4H PRN PRN Reason: Shortness Of Breath Albuterol/Ipratropium (Ipratropium-Albuterol 3 Ml Neb) 3 ml INHALATION Q6H PRN PRN Reason: SHORTNESS OF BREATH Carvedilol (Carvedilol 25 Mg Tablet) 25 mg PO BID [facility] Last Admin: 06/16/21 18:25 Dose: 25 mg Documented by: Diphenhydramine HCl (Diphenhydramine 50 Mg Capsule) 50 mg PO ONCE ONE Stop: 06/17/21 09:01 Docusate Sodium (Docusate Sodium 100 Mg Capsule) 100 mg PO BID PRN PRN Reason: Constipation Fluticasone Propionate (Fluticasone Nasal [place] 16gm Btl) 2 spray NASAL DAILY [facility] Last Admin: 06/16/21 11:06 Dose: 2 spray Documented by: Furosemide (Furosemide 10 Mg/Ml Sdv 4ml) 40 mg IVP 0800,1400 [facility] Last Admin: 06/16/21 14:27 Dose: 40 mg Documented by: Guaifenesin (Guaifenesin 100 Mg/5 Ml Udc 10 Ml) 200 mg PO Q4H PRN PRN Reason: COUGH AND CONGESTION Last Admin: 06/16/21 20:13 Dose: 200 mg Documented by: Heparin Sodium (Beef Lung) (Heparin 5,000 Unit/Ml Inj 1 Ml) 5,000 unit SUBCUT Q12H [facility] Last Admin: 06/17/21 04:59 Dose: 5,000 unit Documented by: Hydralazine HCl (Hydralazine 25 Mg Tablet) 25 mg PO TID [facility] Last Admin: 06/16/21 22:01 Dose: 25 mg Documented by: Levofloxacin (Levofloxacin 500 Mg Tablet) 500 mg PO Q48H [facility]; Protocol Last Admin: 06/16/21 05:07 Dose: 500 mg Documented by: Levothyroxine Sodium (Levothyroxine 150 Mcg Tablet) 150 mcg PO QAM [facility] Last Admin: 06/17/21 04:59 Dose: 150 mcg Documented by: Lorazepam (Lorazepam 0.5 Mg Tablet) 0.5 mg PO ONCE PRN PRN Reason: ANXIETY Last Admin: 06/17/21 00:17 Dose: 0.5 mg Documented by: Losartan Potassium (Losartan 50 Mg Tablet) 50 mg PO DAILY [facility] Last Admin: 06/16/21 11:07 Dose: 50 mg Documented by: Multivitamins (U-Skvsexa-Ctvxrjt C Tablet) 1 each PO DAILY [facility] Last Admin: 06/16/21 11:05 Dose: 1 each Documented by: Ondansetron HCl (Ondansetron 4 Mg Tablet) 4 mg PO Q6H PRN PRN Reason: nausea and vomiting Ondansetron HCl (Ondansetron 2 Mg/Ml Sdv 2 Ml) 4 mg IVP Q6H PRN PRN Reason: NAUSEA AND VOMITING Prednisone (Prednisone 20 Mg Tablet) 50 mg PO 0200,08,1999 [facility] Stop: 06/17/21 08:01 Last Admin: 06/17/21 01:55 Dose: 50 mg Documented by: Promethazine HCl/Dextromethorphan (Promethazine-Dm 6.25-15 Mg/5 Ml Syrup) 5 ml PO Q6H PRN PRN Reason: cough Spironolactone (Spironolactone 25 Mg Tablet) 25 mg PO DAILY [facility] Last Admin: 06/16/21 14:28 Dose: 25 mg Documented by: Vitals/I&O/Wt Last Vital Signs Temp 98.4 F 06/19/21 11:28 Pulse 64 06/19/21 11:28 Resp 18 06/19/21 11:28 BP 167/78 06/19/21 11:28 Pulse Ox 96 06/19/21 09:35 06/19/21 06/19/21 06/19/21 06:59 14:59 22:59 Intake Total 450 / 450 Balance 450 / 450 Weight last 48 hrs Weight 99.1 kg Physical Exam Const: COMMON NORMALS: patient oriented x3 Resp: EFFORT & INSPECTION: Yes symmetric chest movement OTHER: Diminished air entry bilaterally more on the left lung. Cardio: COMMON NORMALS: regular rate, regular rhythm, S1 normal heart sound present, S2 normal heart sound present, No gallops present (Cardio), No murmurs present (Cardio), No rub (Cardio) and Peripheral pulses 2+ throughout RATE: regular rate RHYTHM: regular rhythm HEART SOUNDS: S1 normal heart sound present and S2 normal heart sound present PERIPHERAL PULSES: Peripheral pulses 2+ throughout GI: COMMON NORMALS: Normal to inspection, nondistended, normoactive bowel sounds present, Soft to palpation, non-tender, No hepatosplenomegaly present and no masses AUSCULTATION: Yes normoactive bowel sounds PALPATION: Yes Soft to palpation and Yes No hepatosplenomegaly present RECTAL EXAM: deferred Extremity: COMMON NORMALS: no clubbing, cyanosis or edema and no pedal edema NARRATIVE EXTREMITY EXAM: S/P LT BKA . Lymphedema of the right lower extremity. Neuro: COMMON NORMALS: patient oriented x3 Data : 06/19/21 02:56 06/19/21 02:56 Micro: Microbiology 06/13/21 11:45 Anaerobic Culture - Preliminary Pleural Fluid 06/16/21 12:24 Gram Stain - Final Sputum - Expectorated Sputum Sputum Culture - Final A&P Assessment and plan (1) Large pleural effusion: Status: Acute (2) Heart failure with reduced ejection fraction: Status: Acute (3) Increasing shortness of breath: Status: Acute (4) Difficult intravenous access: Status: Acute (5) Neuropathy: Status: Acute (6) Hypertension: Status: Acute Qualifiers: Hypertension type: essential hypertension Qualified Code(s): I10 - Essential (primary) hypertension (7) ESRD (end stage renal disease): Status: Acute Additional A&P Information #CAD : Extremely calcified tight mid LAD lesion as well as Diagonal lesion. Due for arthrectomy and PCI on Monday. #Symptomatic large pleural effusion: CT chest without contrast: Moderate to large left pleural effusion with associated lower lobe atelectasis. Superimposed pneumonia not excluded. Xray chest : Persistent Moderate left pleural effusion and small right effusion. 2D echo: Mildly dilated left ventricle. Severely decreased left ventricular systolic function. Left ventricular ejection fraction is estimated at 15 %. There is severe global hypokinesis with relative sparing of basal to mid inferolateral guardado. Restrictive diastolic filling pattern with severely increased filling pressure. Mildly increased right ventricular size. Moderately decreased right ventricular systolic function. Mild biatrial enlargement. Moderate tricuspid valve regurgitation. Severely increased pulmonary artery pressure estimated at 62 mmHg. S/p: Left thoracentesis: With removal of 1100 cc yellow pleural fluid. Pleural fluid analysis as per light criteria is consistent with exudative effusion possibly secondary to pneumonia, cannot conclusively rule out pseudoexudate, though the patient has not been on Lasix or other diuretic, longstanding pleural effusion, can have pseudoexudative characteristics even in absence of diuretic use.Pleural fluid proBNP will be helpful, given the fact that the patient has significant heart failure with reduced ejection fraction. pleural fluid pathology: Chronic inflammation with reactive mesothelial cells. No malignancy identified.) Empirically continue levofloxacin 500 mg p.o. every 48 hour daily for now. #Decempensated Heart failure with Severely reduced ejection fraction:Patient has B/L PLeural effusion, SOB. Lasix 80 mg I.V BID Carvedilol 25 mg p.o. twice daily Losartan 75 mg p.o. daily Spironolactone 50 mg p.o. daily End stage Renal disease: ( MW ) Nephrology on board #CAD . Aspirin 81 mg p.o. daily s/p LHC by Dr. Long, found to have calcified mid LAD and proximal D1 stenosis. Due for PCI on Monday. Anemia: Hemoglobin stable Type 2 diabetes: Patient has been taken off insulin Lymphedema of right leg without any active signs of cellulitis, follows up with wound care Does have signs of venous stasis dermatitis Full code Renal dialysis diet DVT :Heparin 5000 sc q12 h daily She will need outpatient follow-up with pulmonology for mediastinal lym phadenopathy Attestations Medical Necessity Statement*: Patient needs to be in hospital for the management of Symptomatic h/f, CAD , need, for PCI Coding Level of Care Code Acute Medical Laboratory Technician for Chg Fwd Diagnoses Large pleural effusion J90 Heart failure with reduced ejection fraction I50.20 Increasing shortness of breath R06.02 Difficult intravenous access Z78.9 Neuropathy G62.9 Hypertension I10 Hypertension type: essential hypertension ESRD (end stage renal disease) N18.6
--- NOTE | 2021-06-19 15:51 | PC.HD ---
Dr Vazquez notified that fluid removal goal was not met due to patient's legs cramping.
--- NOTE | 2021-06-19 18:27 | PC.NURSE ---
Shift Note Frequent safety and comfort rounds continue. Orders and/or nursing care completed as indicated. Patient monitored for response to intervention and treatment(s). Education provided includes[coreg]. Patient and/or enrollment eligibility representative verb understanding of instruction]. Will continue to monitor.
[2021-06-19] MEDS: nystatin cream 30 gm 1 APPLIC TOPICAL (18:45)
--- NOTE | 2021-06-19 19:32 | PC.NURSE ---
Shift Note Frequent safety and comfort rounds continue. Orders and/or nursing care completed as indicated. Patient monitored for response to intervention and treatment(s). Education provided includes[]. Patient and/or manufacturer's representative [ResponseToTeaching]. Will continue to monitor. Received report from MARCIANO Valdez. Patient resting in bed. Assisted patient up to BSC. Patient tolerated well. Discussed thoracentesis for tomorrow and return to cathode washer on Monday. Patient verbalized complete understanding. Patient denies pain presently but does c/o persistent dry cough. Patient requesting cough syrup with bedtime medications. No other distress observed.
[2021-06-19] MEDS: temazepam 15 mg Capsule PO (20:07)
[2021-06-19] MEDS: atorvastatin 40 mg Tablet PO (20:07)
[2021-06-20] VITALS (12 sets, daily range): BP systolic 155–192; BP diastolic 75–96; PULSE 64–75; RESP 15–25; TEMP 36.3–37; O2SAT 89–97
[2021-06-20 03:12] LABS: Basophils % 0.6 %; Eosinophils # 0.3 10^3/uL (0.0-0.8); Eosinophils % 4.2 %; Hematocrit 34.4 % (37.0-47.0); Lymphocytes # 1.2 10^3/uL (0.8-4.8); Lymphocytes % 17.9 %; Mean Corpuscular Hemoglobin 32.9 pg (28.0-34.0); Mean Platelet Volume 9.9 fL (7.4-10.4); Monocytes # 0.7 10^3/uL (0.2-0.9); Monocytes % 10.9 %; Neutrophils # 4.36 10^3/uL (1.8-7.7); Neutrophils % 65.9 %; Nucleated Red Blood Cells % 0 %; Platelet Count 174 10^3/cmm (130-400); Red Blood Count 3.34 10^6/uL (4.1-5.3); Red Cell Distribution Width 16.6 % (12.1-15.1); White Blood Count 6.6 10^3/uL (4.0-10.0)
[2021-06-20 03:37] LABS: Anion Gap 14.1 (5-19); Blood Urea Nitrogen 24 mg/dL (6-20); Carbon Dioxide 25 mmol/L (22-29); Chloride 98 mmol/L (98-107); Glomerular Filtration Rate 13.4 mL/min (90-130); Glucose 113 mg/dL (65-115); Osmolality Calculated 281 mOsm/kg (285-295); Potassium 4.1 mmol/L (3.5-5.1); Sodium 133 mmol/L (136-145)
--- NOTE | 2021-06-20 04:34 | PC.NURSE ---
Clarified Heparin SQ order due this morning with Dr Bautista. Patient is scheduled to have thoracentesis this morning. Received instruction to hold this morning dose of Heparin SQ. RBVO
[2021-06-20] MEDS: levothyroxine 150 mcg Tablet PO (06:00)
--- NOTE | 2021-06-20 06:00 | XRR_ITS ---
PROCEDURE INFORMATION: Exam: XR Chest Exam date and time: 06/20/2021 6:00 AM Age: 60 years old Clinical indication: Condition or disease; Lung condition and disease; Pleural effusion; Influenza; Additional info: Lt pleural effusion TECHNIQUE: Imaging protocol: XR of the chest. Views: 1 view. COMPARISON: CR XR chest 1V portable [id number] 06/16/2021 6:27 AM FINDINGS: Tubes, catheters and devices: There is a tunneled right jugular hemodialysis catheter with the tip in the superior vena cava just above the cavoatrial junction. Lungs: Suspect left basilar compressive atelectasis. Pleural spaces: There is a moderate to large size left pleural effusion, slightly increased in volume in the interval. There is a trace right pleural effusion. No pneumothorax. Heart/Mediastinum: The cardiac silhouette is not enlarged. The mediastinal contours are within normal limits. Bones/joints: Degenerative changes in the thoracic spine. XR/XR chest 1V portable [id number] IMPRESSION: Increased volume of left pleural effusion.
--- NOTE | 2021-06-20 06:01 | PC.NURSE ---
Shift Note Frequent safety and comfort rounds continue. Orders and/or nursing care completed as indicated. Patient monitored for response to intervention and treatment(s). Education provided includes Restoril. Patient and/or senior outside sales representative verbalized complete understanding. Patient resting bed with eyes closed. Arouses easily. Administered medication as ordered. Patient expressed for the Restoril to help with sleep. Patient reports not sleeping well for a while. Also reports unable to lie flat to sleep. Noted patient to be orthopnic sleeping sitting up in bed. Patient denies pain or other needs this am. Will continue to monitor.
--- NOTE | 2021-06-20 06:52 | P.PN_ITS ---
Subjective Subjective: Interval history: inc uop w/ lasix. still sob and edema. no n/v/f/c/kearney/d Medications: Reviewed: Yes Medication Review Details: Current Medications Acetaminophen (Acetaminophen 325 Mg Tablet) 650 mg PO Q6H PRN PRN Reason: MILD PAIN Hydrocodone Bitart/Acetaminophen (Hydrocodone-Acetaminophen 5-325 Mg Tablet) 1 tab PO Q6H PRN PRN Reason: MODERATE pain Last Admin: 06/16/21 20:13 Dose: 1 tab Documented by: Al Hydrox/Mg Hydrox/Simethicone (Hknn-Vic-Pagreknfh-Luis Armando 30 Ml Udc) 30 ml PO Q15M PRN PRN Reason: INDIGESTION Albuterol Sulfate (Albuterol 8 Gm Mdi) 2 puff INHALATION Q4H PRN PRN Reason: Shortness Of Breath Albuterol/Ipratropium (Ipratropium-Albuterol 3 Ml Neb) 3 ml INHALATION Q6H PRN PRN Reason: SHORTNESS OF BREATH Alprazolam (Alprazolam 0.5 Mg Tablet) 0.25 mg PO TID PRN PRN Reason: ANXIETY Last Admin: 06/18/21 01:36 Dose: 0.25 mg Documented by: Aspirin (Aspirin 81 Mg Chew Tablet) 81 mg PO DAILY [facility] Last Admin: 06/19/21 08:48 Dose: 81 mg Documented by: Atorvastatin Calcium (Atorvastatin 40 Mg Tablet) 40 mg PO BEDTIME [facility] Last Admin: 06/19/21 20:07 Dose: 40 mg Documented by: Atropine Sulfate (Atropine 1 Mg/Ml Sdv 1 Ml) 0.5 mg IVP PRN PRN PRN Reason: Symptomatic bradycardia Carvedilol (Carvedilol 25 Mg Tablet) 25 mg PO BID [facility] Last Admin: 06/19/21 18:35 Dose: 25 mg Documented by: Docusate Sodium (Docusate Sodium 100 Mg Capsule) 100 mg PO BID PRN PRN Reason: Constipation Fentanyl (Fentanyl 50 Mcg/Ml Inj 2ml) 50 mcg IVP PRN PRN PRN Reason: PAIN Fluticasone Propionate (Fluticasone Nasal [place] 16gm Btl) 2 spray NASAL DAILY [facility] Last Admin: 06/19/21 08:50 Dose: 2 spray Documented by: Furosemide (Furosemide 10 Mg/Ml Sdv 4ml) 80 mg IVP 0800,1400 [facility] Last Admin: 06/19/21 15:00 Dose: 80 mg Documented by: Guaifenesin (Guaifenesin 100 Mg/5 Ml Udc 10 Ml) 200 mg PO Q4H PRN PRN Reason: COUGH AND CONGESTION Last Admin: 06/18/21 21:24 Dose: 200 mg Documented by: Heparin Sodium (Beef Lung) (Heparin 5,000 Unit/Ml Inj 1 Ml) 5,000 unit SUBCUT Q12H [facility] Last Admin: 06/20/21 04:34 Dose: Not Given Documented by: Albumin Human (Albumin) 12.5 gm in 50 mls @ 60 mls/hr IV PRN PRN PRN Reason: Hypotension and/or symptomatic Albumin Human (Albumin) 12.5 gm in 50 mls @ 60 mls/hr IV PRN PRN PRN Reason: Hypotension and/or symptomatic Levofloxacin (Levofloxacin 500 Mg Tablet) 500 mg PO Q48H [facility]; Protocol Last Admin: 06/19/21 15:00 Dose: 500 mg Documented by: Levothyroxine Sodium (Levothyroxine 150 Mcg Tablet) 150 mcg PO QAM [facility] Last Admin: 06/20/21 06:00 Dose: 150 mcg Documented by: Losartan Potassium (Losartan 50 Mg Tablet) 75 mg PO DAILY [facility] Last Admin: 06/19/21 08:48 Dose: 75 mg Documented by: Magnesium Hydroxide (Magnesium Hydroxide 30 Ml Udc) 30 ml PO DAILY PRN PRN Reason: CONSTIPATION Multivitamins (D-Xmnjzxf-Zujkhcw C Tablet) 1 each PO DAILY [facility] Last Admin: 06/19/21 08:50 Dose: 1 each Documented by: Naloxone HCl (Naloxone 0.4 Mg/Ml Sdv) 0.1 mg IVP Q2M PRN PRN Reason: RESPIRATORY RATE < 8/MIN Nitroglycerin (Nitroglycerin 0.4 Mg Sublingual Tablet) 0.4 mg SUBLINGUAL Q5M PRN PRN Reason: CHEST PAIN Nystatin (Nystatin Cream 30 Gm) 1 applic TOPICAL BID PRN PRN Reason: ITCHING Last Admin: 06/19/21 18:45 Dose: 1 gm Documented by: Ondansetron HCl (Ondansetron 4 Mg Tablet) 4 mg PO Q6H PRN PRN Reason: nausea and vomiting Ondansetron HCl (Ondansetron 2 Mg/Ml Sdv 2 Ml) 4 mg IVP Q6H PRN PRN Reason: NAUSEA AND VOMITING Promethazine HCl/Dextromethorphan (Promethazine-Dm 6.25-15 Mg/5 Ml Syrup) 5 ml PO Q6H PRN PRN Reason: cough Last Admin: 06/19/21 20:11 Dose: 5 ml Documented by: Spironolactone (Spironolactone 25 Mg Tablet) 50 mg PO DAILY [facility] Last Admin: 06/19/21 08:48 Dose: 50 mg Documented by: Temazepam (Temazepam 15 Mg Capsule) 15 mg PO BEDTIME PRN PRN Reason: INSOMNIA Last Admin: 06/19/21 20:07 Dose: 15 mg Documented by: Vitals/I&O/Wt Last Vital Signs Temp 97.5 F L 06/19/21 19:34 Pulse 64 06/20/21 05:07 Resp 20 H 06/20/21 02:54 BP 155/75 06/20/21 02:54 Pulse Ox 94 06/20/21 02:54 06/19/21 06/19/21 06/20/21 14:59 22:59 06:59 Intake Total 450 / 450 240 / 690 240 / 930 Output Total 3930 / 3930 Balance 450 / 450 -3690 / -3240 240 / -3000 Weight last 48 hrs Weight 94.6 kg Physical Exam Narrative: EXAM NARRATIVE: somewhat SOB, VS noted heent-nc/at, eomi, anicteric neck- supple, no jvp RT ACW dialysis catheetr lungs- dull bases b/l heart- reg, +TATY abd soft, nt, nd ext L BKA, 1+ edema neuro- a,a,o x 3 Data : 06/20/21 02:58 06/20/21 02:58 Micro: Microbiology 06/15/21 03:42 Blood Culture - Final Blood NO GROWTH AFTER 5 DAYS 06/15/21 03:40 Blood Culture - Final Blood NO GROWTH AFTER 5 DAYS 06/13/21 11:45 Anaerobic Culture - Preliminary Pleural Fluid A&P Additional A&P Information 1. ESRD s/p Dialysis yesterday; -plan repeat HD in am- 3.5 hrs, 3K, UF 2-3L as tolerated Continue Monday, Monday, Monday schedule Dose medication for GFR less than 15 on dialysis. 2. Shortness of breath and pleural effusion ct chest still w/ moderate to large pleural effusions- eval for another thoracentesis -Status post thoracentesis. Appears exudative; mgmt noted per primary team 3. CAD LHC noted or multivessel disease, plan for PCI and artherctomy tomorrow. 4. CHF- 2D echo: Mildly dilated left ventricle. Severely decreased left ventricular systolic function. Left ventricular ejection fraction is estimated at 15 %. There is severe global hypokinesis with relative sparing of basal to mid inferolateral guardado. Restrictive diastolic filling pattern with severely increased filling pressure. Mildly increased right ventricular size. Moderately decreased right ventricular systolic function. Mild biatrial enlargement. Moderate tricuspid valve regurgitation. Severely increased pulmonary artery pressure estimated at 62 mmHg. -on aldactone, lasix and ARB 5. BP - monitor on current meds and thoracentesis and fluid removal on hd 6. hgb okay 7. renal bone- mineral -metabolism- normal phos, ca 8, pth 69- no vit d analouges 8. hyponatremia- from ESRD and CHF Patient seen and examined via telemedicine, with the assistance of the bedside RN > 25 min spent in evaluation and mgmt of patient Attestations Medical Necessity Statement*: for cardiac cath and HD in am. for thoracentesis for pleural effusion Time Spent in Patient Care: 16 - 35 minutes Coding Level of Care Code Acute Wood Engraver for Gregorio Thompson
[2021-06-20] MEDS: FUROsemide 10 mg/mL SDV 4mL 80 MG IVP ×2 (09:35→16:39)
[2021-06-20] MEDS: carvedilol 25 mg Tablet PO ×2 (09:36→18:19)
[2021-06-20] MEDS: b-complex-vitamin c Tablet 1 EACH PO (09:36)
[2021-06-20] MEDS: losartan 50 mg Tablet 75 MG PO (09:36)
[2021-06-20] MEDS: aspirin 81 mg Chew Tablet PO (09:36)
[2021-06-20] MEDS: spironolactone 25 mg Tablet 50 MG PO (09:37)
[2021-06-20] MEDS: fluticasone nasal spray 16gm Btl 2 SPRAY NASAL (09:38)
[2021-06-20] MEDS: ALPRAZolam 0.5 mg Tablet 0.25 MG PO (09:39)
--- NOTE | 2021-06-20 11:17 | P.PN_ITS ---
Subjective Subjective: Interval history: Patient was seen and examined today, no acute event overnight,bedside ultrasound done has shown moderate lt pleural effusion.She is due for thoracentesis today. Medications: Reviewed: Yes Medication Review Details: Current Medications Acetaminophen (Acetaminophen 325 Mg Tablet) 650 mg PO Q6H PRN PRN Reason: MILD PAIN Hydrocodone Bitart/Acetaminophen (Hydrocodone-Acetaminophen 5-325 Mg Tablet) 1 tab PO Q6H PRN PRN Reason: MODERATE pain Last Admin: 06/16/21 20:13 Dose: 1 tab Documented by: Al Hydrox/Mg Hydrox/Simethicone (Jcon-Hnd-Kklmsybup-Luis Armando 30 Ml Udc) 30 ml PO Q15M PRN PRN Reason: INDIGESTION Albuterol Sulfate (Albuterol 8 Gm Mdi) 2 puff INHALATION Q4H PRN PRN Reason: Shortness Of Breath Albuterol/Ipratropium (Ipratropium-Albuterol 3 Ml Neb) 3 ml INHALATION Q6H PRN PRN Reason: SHORTNESS OF BREATH Alprazolam (Alprazolam 0.5 Mg Tablet) 0.25 mg PO TID PRN PRN Reason: ANXIETY Last Admin: 06/18/21 01:36 Dose: 0.25 mg Documented by: Aspirin (Aspirin 81 Mg Chew Tablet) 81 mg PO DAILY [facility] Last Admin: 06/19/21 08:48 Dose: 81 mg Documented by: Atorvastatin Calcium (Atorvastatin 40 Mg Tablet) 40 mg PO BEDTIME [facility] Last Admin: 06/19/21 20:07 Dose: 40 mg Documented by: Atropine Sulfate (Atropine 1 Mg/Ml Sdv 1 Ml) 0.5 mg IVP PRN PRN PRN Reason: Symptomatic bradycardia Carvedilol (Carvedilol 25 Mg Tablet) 25 mg PO BID [facility] Last Admin: 06/19/21 18:35 Dose: 25 mg Documented by: Docusate Sodium (Docusate Sodium 100 Mg Capsule) 100 mg PO BID PRN PRN Reason: Constipation Fentanyl (Fentanyl 50 Mcg/Ml Inj 2ml) 50 mcg IVP PRN PRN PRN Reason: PAIN Fluticasone Propionate (Fluticasone Nasal [place] 16gm Btl) 2 spray NASAL DAILY [facility] Last Admin: 06/19/21 08:50 Dose: 2 spray Documented by: Furosemide (Furosemide 10 Mg/Ml Sdv 4ml) 80 mg IVP 0800,1400 [facility] Last Admin: 06/19/21 15:00 Dose: 80 mg Documented by: Guaifenesin (Guaifenesin 100 Mg/5 Ml Udc 10 Ml) 200 mg PO Q4H PRN PRN Reason: COUGH AND CONGESTION Last Admin: 06/18/21 21:24 Dose: 200 mg Documented by: Heparin Sodium (Beef Lung) (Heparin 5,000 Unit/Ml Inj 1 Ml) 5,000 unit SUBCUT Q12H [facility] Last Admin: 06/20/21 04:34 Dose: Not Given Documented by: Albumin Human (Albumin) 12.5 gm in 50 mls @ 60 mls/hr IV PRN PRN PRN Reason: Hypotension and/or symptomatic Albumin Human (Albumin) 12.5 gm in 50 mls @ 60 mls/hr IV PRN PRN PRN Reason: Hypotension and/or symptomatic Levofloxacin (Levofloxacin 500 Mg Tablet) 500 mg PO Q48H [facility]; Protocol Last Admin: 06/19/21 15:00 Dose: 500 mg Documented by: Levothyroxine Sodium (Levothyroxine 150 Mcg Tablet) 150 mcg PO QAM [facility] Last Admin: 06/20/21 06:00 Dose: 150 mcg Documented by: Losartan Potassium (Losartan 50 Mg Tablet) 75 mg PO DAILY [facility] Last Admin: 06/19/21 08:48 Dose: 75 mg Documented by: Magnesium Hydroxide (Magnesium Hydroxide 30 Ml Udc) 30 ml PO DAILY PRN PRN Reason: CONSTIPATION Multivitamins (T-Ysfgoji-Tdayaac C Tablet) 1 each PO DAILY [facility] Last Admin: 06/19/21 08:50 Dose: 1 each Documented by: Naloxone HCl (Naloxone 0.4 Mg/Ml Sdv) 0.1 mg IVP Q2M PRN PRN Reason: RESPIRATORY RATE < 8/MIN Nitroglycerin (Nitroglycerin 0.4 Mg Sublingual Tablet) 0.4 mg SUBLINGUAL Q5M PRN PRN Reason: CHEST PAIN Nystatin (Nystatin Cream 30 Gm) 1 applic TOPICAL BID PRN PRN Reason: ITCHING Last Admin: 06/19/21 18:45 Dose: 1 gm Documented by: Ondansetron HCl (Ondansetron 4 Mg Tablet) 4 mg PO Q6H PRN PRN Reason: nausea and vomiting Ondansetron HCl (Ondansetron 2 Mg/Ml Sdv 2 Ml) 4 mg IVP Q6H PRN PRN Reason: NAUSEA AND VOMITING Promethazine HCl/Dextromethorphan (Promethazine-Dm 6.25-15 Mg/5 Ml Syrup) 5 ml PO Q6H PRN PRN Reason: cough Last Admin: 06/19/21 20:11 Dose: 5 ml Documented by: Spironolactone (Spironolactone 25 Mg Tablet) 50 mg PO DAILY [facility] Last Admin: 06/19/21 08:48 Dose: 50 mg Documented by: Temazepam (Temazepam 15 Mg Capsule) 15 mg PO BEDTIME PRN PRN Reason: INSOMNIA Last Admin: 06/19/21 20:07 Dose: 15 mg Documented by: Vitals/I&O/Wt Last Vital Signs Temp 97.8 F 06/20/21 09:00 Pulse 66 06/20/21 09:00 Resp 18 06/20/21 09:00 BP 176/84 06/20/21 09:36 Pulse Ox 94 06/20/21 07:32 06/19/21 06/20/21 06/20/21 22:59 06:59 14:59 Intake Total 240 / 690 240 / 930 Output Total 3930 / 3930 Balance -3690 / -3240 240 / -3000 Weight last 48 hrs Weight 94.6 kg Physical Exam Const: COMMON NORMALS: patient oriented x3 Resp: EFFORT & INSPECTION: Yes symmetric chest movement OTHER: Diminished air entry bilaterally more on the left lung. Cardio: COMMON NORMALS: regular rate, regular rhythm, S1 normal heart sound present, S2 normal heart sound present, No gallops present (Cardio), No murmurs present (Cardio), No rub (Cardio) and Peripheral pulses 2+ throughout RATE: regular rate RHYTHM: regular rhythm HEART SOUNDS: S1 normal heart sound present and S2 normal heart sound present PERIPHERAL PULSES: Peripheral pulses 2+ throughout GI: COMMON NORMALS: Normal to inspection, nondistended, normoactive bowel sounds present, Soft to palpation, non-tender, No hepatosplenomegaly present and no masses AUSCULTATION: Yes normoactive bowel sounds PALPATION: Yes Soft to palpation and Yes No hepatosplenomegaly present RECTAL EXAM: deferred Extremity: COMMON NORMALS: no clubbing, cyanosis or edema and no pedal edema NARRATIVE EXTREMITY EXAM: S/P LT BKA . Lymphedema of the right lower extremity. Neuro: COMMON NORMALS: patient oriented x3 Data : 06/20/21 02:58 06/20/21 02:58 Micro: Microbiology 06/15/21 03:42 Blood Culture - Final Blood NO GROWTH AFTER 5 DAYS 06/15/21 03:40 Blood Culture - Final Blood NO GROWTH AFTER 5 DAYS 06/13/21 11:45 Anaerobic Culture - Preliminary Pleural Fluid A&P Assessment and plan (1) Large pleural effusion: Status: Acute (2) Heart failure with reduced ejection fraction: Status: Acute (3) Increasing shortness of breath: Status: Acute (4) Difficult intravenous access: Status: Acute (5) Neuropathy: Status: Acute (6) Hypertension: Status: Acute Qualifiers: Hypertension type: essential hypertension Qualified Code(s): I10 - Essential (primary) hypertension (7) ESRD (end stage renal disease): Status: Acute Additional A&P Information #CAD : Extremely calcified tight mid LAD lesion as well as Diagonal lesion. Due for arthrectomy and PCI on Monday. #Symptomatic large pleural effusion: CT chest without contrast: Moderate to large left pleural effusion with associated lower lobe atelectasis. Superimposed pneumonia not excluded. Xray chest : Persistent Moderate left pleural effusion and small right effusion. 2D echo: Mildly dilated left ventricle. Severely decreased left ventricular systolic function. Left ventricular ejection fraction is estimated at 15 %. There is severe global hypokinesis with relative sparing of basal to mid inferolateral [place]. Restrictive diastolic filling pattern with severely increased filling pressure. Mildly increased right ventricular size. Moderately decreased right ventricular systolic function. Mild biatrial enlargement. Moderate tricuspid valve regurgitation. Severely increased pulmonary artery pressure estimated at 62 mmHg. S/p: Left thoracentesis: With removal of 1100 cc yellow pleural fluid. S/P Repeat thoracentesis on 06/20 with removal of 1400cc straw colored fluid.Sent for analysis. Pleural fluid analysis as per light criteria is consistent with exudative effusion possibly secondary to pneumonia, cannot conclusively rule out pseudoexudate, though the patient has not been on Lasix or other diuretic, longstanding pleural effusion, can have pseudoexudative characteristics even in absence of diuretic use.Pleural fluid proBNP will be helpful, given the fact that the patient has significant heart failure with reduced ejection fraction. pleural fluid pathology: Chronic inflammation with reactive mesothelial cells. No malignancy identified.) Empirically continue levofloxacin 500 mg p.o. every 48 hour daily for now. #Decempensated Heart failure with Severely reduced ejection fraction:Patient has B/L PLeural effusion, SOB. Lasix 80 mg I.V BID Carvedilol 25 mg p.o. twice daily Losartan 75 mg p.o. daily Spironolactone 50 mg p.o. daily End stage Renal disease: ( MWF ) Nephrology on board #CAD . Aspirin 81 mg p.o. daily s/p LHC by Dr. Long, found to have calcified mid LAD and proximal D1 stenosis. Due for PCI on Monday. Anemia: Hemoglobin stable Type 2 diabetes: Patient has been taken off insulin Lymphedema of right leg without any active signs of cellulitis, follows up with wound care Does have signs of venous stasis dermatitis Full code Renal dialysis diet DVT :Heparin 5000 sc q12 h daily She will need outpatient follow-up with pulmonology for mediastinal lymphadenopathy Attestations Medical Necessity Statement*: Patient is due for PCI on Monday. Coding Level of Care Code Acute Tight Bar[employer] Inspector for Gregorio Fwd Diagnoses Large pleural effusion J90 Heart failure with reduced ejection fraction I50.20 Increasing shortness of breath R06.02 Difficult intravenous access Z78.9 Neuropathy G62.9 Hypertension I10 Hypertension type: essential hypertension ESRD (end stage renal disease) N18.6
--- NOTE | 2021-06-20 11:17 | PM.PN ---
Subjective Subjective: Interval history: Patient is having shortness of breath. Chest x-ray showing significant pleural effusion. Plan for PCI tomorrow however will need thoracentesis before that. Vitals/I&O/Wt Last Vital Signs Temp 97.8 F 06/20/21 09:00 Pulse 66 06/20/21 09:00 Resp 18 06/20/21 09:00 BP 176/84 06/20/21 09:36 Pulse Ox 94 06/20/21 07:32 06/19/21 06/20/21 06/20/21 22:59 06:59 14:59 Intake Total 240 / 690 240 / 930 Output Total 3930 / 3930 Balance -3690 / -3240 240 / -3000 Weight last 48 hrs Weight 208 lb 8.917 oz Physical Exam Narrative: EXAM NARRATIVE: GENERAL: Patient is alert, awake and oriented x3. [] NECK: No jugular vein distension. [] HEENT: No cyanosis. No icterus. No pallor. [] HEART: Regular S1 and S2. No murmur, rub or gallop. [] LUNGS: Has mild wheezing ABDOMEN: Soft, nontender and nondistended. Positive bowel sounds. No guarding, rebound or tenderness. [] CENTRAL NERVOUS SYSTEM: Grossly nonfocal. [] EXTREMITIES: Lower extremities with 1+ edema bilaterally. Pulses palpable in the lower extremities, both dorsalis pedis and posterior tibial. [] Data : 06/20/21 02:58 06/20/21 02:58 Micro: Microbiology 06/15/21 03:42 Blood Culture - Final Blood NO GROWTH AFTER 5 DAYS 06/15/21 03:40 Blood Culture - Final Blood NO GROWTH AFTER 5 DAYS 06/13/21 11:45 Anaerobic Culture - Preliminary Pleural Fluid A&P Assessment and plan (1) Heart failure with reduced ejection fraction: LVEF (55-->15-20%)On coreg. On losartan and Aldactone. Continue diuretics. Patient has severe mid LAD/diagonal artery disease. Plan for arthrectomy and PCI tomorrow. Patient's respiratory status is worse today and she has significant residual pleural effusion on chest x-ray. Will benefit from thoracentesis today. Plan with pulmonology. Status: Acute (2) CAD (coronary artery disease): Has calcified mid LAD and proximal LAD diagonal artery stenosis. - Plan for atherectomy and intervention on Monday -Premedication for iodine allergy ordered.. Continue aspirin. Loaded with Plavix 600 mg. Status: Acute Qualifiers: Coronary Disease-Associated Artery/Lesion type: [place] artery [place] vs. transplanted heart: [place] heart Associated angina: without angina Qualified Code(s): I25.10 - Atherosclerotic heart disease of [place] coronary artery without angina pectoris (3) Large pleural effusion: s/p thoracentesis with removal of 1100 ml of pleural fluid. Status: Acute (4) Hypertension: Blood pressure elevated. Status: Acute Qualifiers: Hypertension type: essential hypertension Qualified Code(s): I10 - Essential (primary) hypertension (5) ESRD (end stage renal disease): Will get dialysis today. Status: Acute (6) Diabetes: Status: Acute Additional A&P Information Macrocytic anemia Thrombocytopenia Elevated alkaline phosphatase Thank you for involving us with care of this patient. We will continue to follow. Please call with questions. Attestations Medical Necessity Statement*: Care expected to cross 2 midnights. Coding Level of Care Code Acute [employer] Agent for Gregorio Thompson Diagnoses Heart failure with reduced ejection fraction I50.20 CAD (coronary artery disease) I25.10 Coronary Disease-Associated Artery/Lesion type: [place] artery [place] vs. transplanted heart: [place] heart Associated angina: without angina Large pleural effusion J90 Hypertension I10 Hypertension type: essential hypertension ESRD (end stage renal disease) N18.6 Diabetes E11.9
[2021-06-20] MEDS: clopidogrel 300 mg Tablet 600 MG PO (12:45)
--- NOTE | 2021-06-20 16:08 | PC.CHAP ---
Pastoral Care Encounter/Spiritual Assessment Type of Contact [] Declined nurses assistant visit [] Patient/Family/Request visit [] Outpatient visit [] Follow-up visit [] Physician referral [] Code/Alert [XX] Routine visit [] Staff referral [] Actively dying [] Patient sleeping [] Family support [] [] Out of room [] Palliative care [] [] Receiving care in room [] Pre-surgical visit [] Trauma [] Long length of stay [] ICU visit [] Other: Relational/Emotional Strength [XX] Patient feels connected with others/family/visitors/staff [] Distress [] Loneliness/isolation [] Abandonment Spirituality of Patient [XX] Person of Mana [] Attends Hinduism of their Mana [XX] Believes in Prayer [XX] Reads Bible or Hinduism materials [] There are Spiritual issues to be addressed Long Lines Operator Interventions [XX] Prayer [XX] Active listening [XX] Non-anxious presence [] Spiritual/emotional support [] Crisis/trauma care [] Spiritual counseling [] Bereavement support [] Provided bereavement packet [XX] Provided Bible/devotional materials [] Provided toy/stuffed animal, coloring book to patient or family member [] Provided Communion [] Anointing/Independence [] Salvation [XX] Completed spiritual assessment [] Other: Impact on Illness or Injury [] Angry [] Fearful [] Anxious [] Often cries [] Exhaustion [] Unable to work [] Unable to attend judaism [] Unable to walk/stand [] Unable to read [] Unable to drive [] Unable to eat/drink [] Unable to sleep [] Unable to be with family [] Patient intubated [] Other: Summary: Spouse present with pt. Pt reports having a staph infection three years ago the treatment for which led to a series of events...renal failure, lymphedema, and lowe limb amputation. Current problem is blocked arteries causing pulmonary edema. Tomorrow, pt will have procedure to place stents or bypass blocked arteries. Pt and her are strong believers and full of gratitude. Pt hopes to be able to sing gospel songs, again, when she can breathe. Community support is primarily from her family. They've not yet found a lutheran home (moved here 6 years ago). Provided prayer and Daily Bread. Time spent with patient: 15 mins
--- NOTE | 2021-06-20 16:26 | XRR_ITS ---
PROCEDURE INFORMATION: Exam: XR Chest Exam date and time: 06/20/2021 4:26 PM Age: 60 years old Clinical indication: Shortness of breath; Prior surgery; Patient HX: Post thoracentesis TECHNIQUE: Imaging protocol: XR of the chest. Views: 1 view. COMPARISON: CR (CHEST, ) 06/20/2021 8:46 AM FINDINGS: Tubes, catheters and devices: Stable right dialysis catheter. Lungs: Linear atelectasis or scarring in the left lung base with re-expansion. The right lung is clear. Pleural spaces: Small left pleural effusion has improved, consistent with thoracentesis. No pneumothorax. Heart/Mediastinum: Unremarkable. No cardiomegaly. Bones/joints: Unremarkable. XR/XR chest 1V portable [id number] IMPRESSION: 1. No pneumothorax following left thoracentesis.
--- NOTE | 2021-06-20 16:47 | PM.ACPR ---
Procedure/Consent Time out: Time Out Performed: Yes Consent: Consent for Procedure: Consent obtained from patient Procedure Narrative: Name of the procedure: Left sided thoracentesis under ultrasound guidance Indication: Symptomatic pleural effusion Anesthetics: Local anesthesia with 1% lidocaine. IV pain medication: None. Description of the procedure: The procedure was explained to the patient in detail including the risks and a consent was obtained. The left hemithorax was scanned with ultrasound to find a safe fluid pocket. Moderate free-flowing fluid was noted. There was no complexity. Following identification of the fluid pocket the site was marked. The site was cleaned using sterile technique. Lidocaine 1% was injected into the skin and the subcutaneous tissue. Subsequently, the periosteum in the parietal pleural was also anesthetized using lidocaine. The pleural space was entered in the posterior axillary line in the left eighth intercostal space. Straw-colored fluid was aspirated. About 1450 cc of fluid was aspirated. Sample: The pleural fluid was sent for cell count and differential, pH, protein, LDH, albumin, Gram stain and culture, fungal stain and culture, AFB stain and culture and cytology. Postprocedure chest x-ray did not show any pneumothorax. Acute Procedures Epistaxis Control: Time out performed: Yes
[2021-06-20 17:53] LABS: Body Fluid WBC 3 /uL; Monocytes # Body Fluid 0.003; RBC, Body Fluid 0 10^3/uL
[2021-06-20 17:56] LABS: Apprearance, Body Fluid CLEAR; Color, Body Fluid YELLOW; PATH Referral YES
[2021-06-20 18:17] LABS: LDH Pleural Fluid 104 U/L; Total Protein Pleural Fluid 4.1 g/dL
[2021-06-20] MEDS: heparin 5,000 unit/mL INJ 1 mL 5000 UNIT SUBCUT (18:19)
[2021-06-20] MEDS: predniSONE 20 mg Tablet 40 MG PO ×2 (18:19→23:49)
--- NOTE | 2021-06-20 18:30 | PC.NURSE ---
Shift Note Frequent safety and comfort rounds continue. Orders and/or nursing care completed as indicated. Patient monitored for response to intervention and treatment(s). Education provided includes[thoracentesis]. Patient and/or hr representative verb understanding.dr carpenter performed thoracentesis.1450 cc straw colored fluid obtained.pt tolerated procedure well.pcxr performed after procedure. Will continue to monitor.
[2021-06-20] MEDS: temazepam 15 mg Capsule PO (20:53)
[2021-06-20] MEDS: atorvastatin 40 mg Tablet PO (20:53)
[2021-06-21] VITALS (20 sets, daily range): BP systolic 116–191; BP diastolic 59–92; PULSE 62–76; RESP 11–32; TEMP 36.4–36.8; O2SAT 93–95
[2021-06-21] MEDS: predniSONE 20 mg Tablet 40 MG PO ×3 (05:25→19:42)
[2021-06-21] MEDS: levothyroxine 150 mcg Tablet PO (05:27)
--- NOTE | 2021-06-21 05:27 | PC.NURSE ---
Heparin not given per Dr Long. Patient to go to lab head this morning for procedure.
[2021-06-21 06:26] LABS: Basophils % 0.2 %; Eosinophils % 0.1 %; Hematocrit 37.5 % (37.0-47.0); Hemoglobin 12.2 g/dL (11.5-15.3); Lymphocytes # 0.4 10^3/uL (0.8-4.8); Lymphocytes % 4.9 %; Mean Corpuscular HGB Conc 32.5 g/dL (30.0-36.0); Mean Corpuscular Hemoglobin 32.8 pg (28.0-34.0); Mean Corpuscular Volume 100.8 fL (81-99); Mean Platelet Volume 10.5 fL (7.4-10.4); Monocytes # 0.1 10^3/uL (0.2-0.9); Neutrophils # 8.17 10^3/uL (1.8-7.7); Nucleated Red Blood Cells % 0 %; Platelet Count 190 10^3/cmm (130-400); Red Blood Count 3.72 10^6/uL (4.1-5.3); Red Cell Distribution Width 16.2 % (12.1-15.1); White Blood Count 8.8 10^3/uL (4.0-10.0)
[2021-06-21 06:48] LABS: Magnesium 2.2 mg/dL (1.7-2.3); Phosphorus 3.7 mg/dL (2.5-4.5)
[2021-06-21 07:00] LABS: Anion Gap 15.8 (5-19); Blood Urea Nitrogen 39 mg/dL (6-20); Calcium 8.1 mg/dL (8.5-10.5); Carbon Dioxide 23 mmol/L (22-29); Chloride 98 mmol/L (98-107); Glomerular Filtration Rate 9.8 mL/min (90-130); Glucose 207 mg/dL (65-115); Osmolality Calculated 289 mOsm/kg (285-295); Potassium 4.8 mmol/L (3.5-5.1); Sodium 132 mmol/L (136-145)
--- NOTE | 2021-06-21 07:08 | PM.PN ---
Subjective Subjective: Interval history: feels better after fluid removed from thoracentesis Medications: Reviewed: Yes Medication Review Details: Current Medications Acetaminophen (Acetaminophen 325 Mg Tablet) 650 mg PO Q6H PRN PRN Reason: MILD PAIN Hydrocodone Bitart/Acetaminophen (Hydrocodone-Acetaminophen 5-325 Mg Tablet) 1 tab PO Q6H PRN PRN Reason: MODERATE pain Last Admin: 06/16/21 20:13 Dose: 1 tab Documented by: Albuterol Sulfate (Albuterol 8 Gm Mdi) 2 puff INHALATION Q4H PRN PRN Reason: Shortness Of Breath Albuterol/Ipratropium (Ipratropium-Albuterol 3 Ml Neb) 3 ml INHALATION Q6H PRN PRN Reason: SHORTNESS OF BREATH Alprazolam (Alprazolam 0.5 Mg Tablet) 0.25 mg PO TID PRN PRN Reason: ANXIETY Last Admin: 06/20/21 09:39 Dose: 0.25 mg Documented by: Aspirin (Aspirin 81 Mg Chew Tablet) 81 mg PO DAILY [facility] Last Admin: 06/20/21 09:36 Dose: 81 mg Documented by: Atorvastatin Calcium (Atorvastatin 40 Mg Tablet) 40 mg PO BEDTIME [facility] Last Admin: 06/20/21 20:53 Dose: 40 mg Documented by: Atropine Sulfate (Atropine 1 Mg/Ml Sdv 1 Ml) 0.5 mg IVP PRN PRN PRN Reason: Symptomatic bradycardia Carvedilol (Carvedilol 25 Mg Tablet) 25 mg PO BID [facility] Last Admin: 06/20/21 18:19 Dose: 25 mg Documented by: Clopidogrel Bisulfate (Clopidogrel 75 Mg Tablet) 75 mg PO DAILY [facility] Docusate Sodium (Docusate Sodium 100 Mg Capsule) 100 mg PO BID PRN PRN Reason: Constipation Fentanyl (Fentanyl 50 Mcg/Ml Inj 2ml) 50 mcg IVP PRN PRN PRN Reason: PAIN Fluticasone Propionate (Fluticasone Nasal [place] 16gm Btl) 2 spray NASAL DAILY [facility] Last Admin: 06/20/21 09:38 Dose: 2 spray Documented by: Furosemide (Furosemide 10 Mg/Ml Sdv 4ml) 80 mg IVP 0800,1400 [facility] Last Admin: 06/20/21 16:39 Dose: 80 mg Documented by: Guaifenesin (Guaifenesin 100 Mg/5 Ml Udc 10 Ml) 200 mg PO Q4H PRN PRN Reason: COUGH AND CONGESTION Last Admin: 06/18/21 21:24 Dose: 200 mg Documented by: Heparin Sodium (Beef Lung) (Heparin 5,000 Unit/Ml Inj 1 Ml) 5,000 unit SUBCUT Q12H [facility] Last Admin: 06/21/21 05:27 Dose: Not Given Documented by: Albumin Human (Albumin) 12.5 gm in 50 mls @ 60 mls/hr IV PRN PRN PRN Reason: Hypotension and/or symptomatic Albumin Human (Albumin) 12.5 gm in 50 mls @ 60 mls/hr IV PRN PRN PRN Reason: Hypotension and/or symptomatic Sodium Chloride (Sodium Chloride 0.9%) 1,000 mls @ 50 mls/hr IV .Q20H ONE Stop: 06/21/21 07:24 Levofloxacin (Levofloxacin 500 Mg Tablet) 500 mg PO Q48H [facility]; Protocol Last Admin: 06/19/21 15:00 Dose: 500 mg Documented by: Levothyroxine Sodium (Levothyroxine 150 Mcg Tablet) 150 mcg PO QAM [facility] Last Admin: 06/21/21 05:27 Dose: 150 mcg Documented by: Losartan Potassium (Losartan 50 Mg Tablet) 75 mg PO DAILY [facility] Last Admin: 06/20/21 09:36 Dose: 75 mg Documented by: Magnesium Hydroxide (Magnesium Hydroxide 30 Ml Udc) 30 ml PO DAILY PRN PRN Reason: CONSTIPATION Multivitamins (K-Wsoszrf-Hgkujjx C Tablet) 1 each PO DAILY [facility] Last Admin: 06/20/21 09:36 Dose: 1 each Documented by: Naloxone HCl (Naloxone 0.4 Mg/Ml Sdv) 0.1 mg IVP Q2M PRN PRN Reason: RESPIRATORY RATE < 8/MIN Nitroglycerin (Nitroglycerin 0.4 Mg Sublingual Tablet) 0.4 mg SUBLINGUAL Q5M PRN PRN Reason: CHEST PAIN Nystatin (Nystatin Cream 30 Gm) 1 applic TOPICAL BID PRN PRN Reason: ITCHING Last Admin: 06/19/21 18:45 Dose: 1 gm Documented by: Ondansetron HCl (Ondansetron 4 Mg Tablet) 4 mg PO Q6H PRN PRN Reason: nausea and vomiting Ondansetron HCl (Ondansetron 2 Mg/Ml Sdv 2 Ml) 4 mg IVP Q6H PRN PRN Reason: NAUSEA AND VOMITING Prednisone (Prednisone 20 Mg Tablet) 40 mg PO QID [facility] Last Admin: 06/21/21 05:25 Dose: 40 mg Documented by: Promethazine HCl/Dextromethorphan (Promethazine-Dm 6.25-15 Mg/5 Ml Syrup) 5 ml PO Q6H PRN PRN Reason: cough Last Admin: 06/20/21 20:53 Dose: 5 ml Documented by: Spironolactone (Spironolactone 25 Mg Tablet) 50 mg PO DAILY [facility] Last Admin: 06/20/21 09:37 Dose: 50 mg Documented by: Temazepam (Temazepam 15 Mg Capsule) 15 mg PO BEDTIME PRN PRN Reason: INSOMNIA Last Admin: 06/20/21 20:53 Dose: 15 mg Documented by: Vitals/I&O/Wt Last Vital Signs Temp 98 F 06/21/21 03:54 Pulse 68 06/21/21 06:00 Resp 11 L 06/21/21 03:54 BP 191/89 06/21/21 03:54 Pulse Ox 94 06/21/21 03:54 06/20/21 06/21/21 06/21/21 22:59 06:59 14:59 Intake Total 120 / 120 Balance 120 / 120 Weight last 48 hrs Weight 94.6 kg Physical Exam Narrative: EXAM NARRATIVE: more comfortable in bed heent-nc/at, eomi, anicteric neck- supple, no jvp RT ACW dialysis catheter lungs- dull bases b/l heart- reg, +TATY abd soft, nt, nd ext L BKA, 1+ edema neuro- a,a,o x 3 Data : 06/21/21 06:00 06/21/21 06:00 Micro: Microbiology 06/20/21 16:00 Gram Stain - Final Pleural Fluid 06/13/21 11:45 Anaerobic Culture - Preliminary Pleural Fluid 06/15/21 03:42 Blood Culture - Final Blood NO GROWTH AFTER 5 DAYS 06/15/21 03:40 Blood Culture - Final Blood NO GROWTH AFTER 5 DAYS A&P Additional A&P Information 1. ESRD s/p Dialysis yesterday; -plan repeat HD after cardiac cath -3.5 hrs, 2K, UF 2-3L as tolerated Continue Monday, Monday, Monday schedule Dose medication for GFR less than 15 on dialysis. 2. Shortness of breath and pleural effusion ct chest still w/ moderate to large pleural effusions- s/p second thoracentesis - mgmt per primary and pulmonary team 3. CAD LHC noted or multivessel disease, plan for PCI and artherctomy today. 4. CHF- 2D echo: Mildly dilated left ventricle. Severely decreased left ventricular systolic function. Left ventricular ejection fraction is estimated at 15 %. There is severe global hypokinesis with relative sparing of basal to mid inferolateral guardado. Restrictive diastolic filling pattern with severely increased filling pressure. Mildly increased right ventricular size. Moderately decreased right ventricular systolic function. Mild biatrial enlargement. Moderate tricuspid valve regurgitation. Severely increased pulmonary artery pressure estimated at 62 mmHg. -on aldactone, lasix and ARB 5. BP - monitor on current meds and thoracentesis and fluid removal on hd -will titrate meds w/ cardiology 6. hgb okay 7. renal bone- mineral -metabolism- normal phos, ca 8.1, pth 69- no vit d analouges 8. hyponatremia- from ESRD and CHF Patient seen and examined via telemedicine, with the assistance of the bedside RN 30 min spent in evaluation and mgmt of patient Attestations Medical Necessity Statement*: cad, esrd, htn, pleural effusions Time Spent in Patient Care: 16 - 35 minutes Coding Level of Care Code Acute Jack Spooler Tender for Gregorio Thompson
[2021-06-21] MEDS: clopidogrel 75 mg Tablet PO (09:06)
[2021-06-21] MEDS: b-complex-vitamin c Tablet 1 EACH PO (09:06)
[2021-06-21] MEDS: aspirin 81 mg Chew Tablet PO (09:06)
[2021-06-21] MEDS: spironolactone 25 mg Tablet 50 MG PO (09:07)
[2021-06-21] MEDS: carvedilol 25 mg Tablet PO ×2 (09:07→18:44)
[2021-06-21] MEDS: losartan 50 mg Tablet 75 MG PO (09:07)
[2021-06-21] MEDS: FUROsemide 10 mg/mL SDV 4mL 80 MG IVP (09:09)
--- NOTE | 2021-06-21 09:55 | PC.CHAP ---
Pastoral Care Encounter/Spiritual Assessment Type of Contact [] Declined thread marker visit [] Patient/Family/Request visit [] Outpatient visit [] Follow-up visit [] Physician referral [] Code/Alert [] Routine visit [] Staff referral [] Actively dying [] Patient sleeping [] Family support [] [] Out of room [] Palliative care [] [] Receiving care in room [] Pre-surgical visit [] Trauma [] Long length of stay [] ICU visit [] Other: Relational/Emotional Strength [] Patient feels connected with others/family/visitors/staff [] Distress [] Loneliness/isolation [] Abandonment Spirituality of Patient [] Person of Mana [] Attends Uatsdin of their Mana [] Believes in Prayer [] Reads Bible or Episcopalian materials [] There are Spiritual issues to be addressed Stress Test Technician Interventions [x] Prayer [] Active listening [] Non-anxious presence [] Spiritual/emotional support [] Crisis/trauma care [] Spiritual counseling [] Bereavement support [] Provided bereavement packet [] Provided Bible/devotional materials [] Provided toy/stuffed animal, coloring book to patient or family member [] Provided Communion [] Anointing/[place] [] Salvation [x] Completed spiritual assessment [] Other: Impact on Illness or Injury [] Angry [] Fearful [] Anxious [] Often cries [] Exhaustion [] Unable to work [] Unable to attend anabaptism [] Unable to walk/stand [] Unable to read [] Unable to drive [] Unable to eat/drink [] Unable to sleep [] Unable to be with family [] Patient intubated [] Other: Summary Time spent with patient
--- NOTE | 2021-06-21 10:43 | XACV_ITS ---
Exam Room: [facility] Ht: 168 cm Wt: 95 kg BSA: 2.14 m2 Gender: Female : 1960 Any Known Allergies: Contrast Exam Priority: Routine Procedure(s): Procedure Description: Diagnostic procedure Procedure Description: PCI procedure Procedure Description: Drug Eluting Coronary Stent Procedure Description: Coronary Atherectomy Procedure Description: Miscellaneous Procedure Description: Angio-Seal Procedure Description: ACT Procedure Description: Coronary Angiography Diagnostic Cath Status: Urgent Diagnostic Findings * Right Coronary Artery was not injected. * INDICATION: LV dysfunction. * This is a staged procedure for PCI of the LAD/Diagonal artery bifurcation. For full diagnostic report, please refer to report from 06/17/2021. * Mid Left Anterior Descending to Mid Left Anterior Descendin% stenosis, YANIQUE: 3 flow. * Left Main has no disease. * Circumflex has no disease. * Proximal Left Anterior Descending to Mid Left Anterior Descending: obstructive 70% stenosis, YANIQUE: 3 flow. * 1st Diagonal: obstructive 70% stenosis, YANIQUE: 3 flow. PCI Status: Urgent PCI Indication: Other Interventional Findings * Procedure detail: Pain is left main artery with XB 3.5 guide catheter. We used run-through guidewire to cross proximal and mid LAD stenosis. This was exchanged for Viper arthrectomy wire. This was followed by performance of CSI orbital arthrectomy from proximal to mid LAD. We then switched Viper wire back to run-through wire. A second run-through wire was used to cross into the diagonal artery. We predilated diagonal artery stenosis with 2.5 x 12 mm semicompliant balloon. This was followed by predilation of mid LAD stenosis with 2.5 x 12 mm semicompliant balloon. We then predilated the proximal LAD stenosis with 2.5 x 12 mm semicompliant balloon. We then performed bifurcation stenting of LAD/diagonal artery using mini crush technique. 2.75 x 15 mm resolute Noelle drug-eluting stent was deployed in diagonal artery with 3.0 x 22 mm resolute [place] drug-eluting stent parked in the mid LAD. Diagonal artery stent was crushed with the mid LAD stent. This was followed by placement of 3.5 x 18 mm resolute Noelle stent from proximal to to mid LAD. Both proximal and mid LAD stents overlapped each other. We performed post dilation of proximal LAD stent with 3.75 x 8 mm noncompliant balloon. This was followed by post dilation of mid LAD stent with a 3.0 x 6 mm noncompliant balloon. We tried performing final kissing balloon inflation in diagonal artery and mid LAD however wire could not be crossed into diagonal stent. At this time final angiogram was performed which showed excellent stent expansion, no residual stenosis and YANIQUE-3 flow.. * Proximal Left Anterior Descending to Mid Left Anterior Descendin% stenosis treated with a AB TREK 2.50X12 RX BALLOON, MDT R NOELLE 3.5X18 JD, and MDT NC EUPHORA RX [id number] BALLOON. 0% residual stenosis, YANIQUE: 3 flow. * Mid Left Anterior Descending to Mid Left Anterior Descendin% stenosis treated with a AB TREK 2.50X12 RX BALLOON, MDT R NOELLE 3.0X22 JD, and MDT NC EUPHORA RX [id number] BALLOON. 0% residual stenosis, YANIQUE: 3 flow. * 1st Diagonal: 70% stenosis treated with a AB TREK 2.50X12 RX BALLOON, and MDT R NOELLE 2.75X15 JD. 0% residual stenosis, YANIQUE: 3 flow. Conclusions 1. Severe proximal to mid LAD stenosis. Severe ostial diagonal artery stenosis. 2. Successful revascularization of the LAD with orbital arthrectomy and PCI with JD x 2 including bifurcation stenting of mid LAD and diagonal artery using mini-crush technique (2 stents placed in LAD and 1 in diagonal artery). Recommendations * Transfer to [facility]. * Aspirin and Plavix for atleast 1 year. * High intensity statin therapy. * Guideline directed heart failure therapy. * Outpatient cardiology follow up in 1 month. Interventional RX Recommendation: PCI w/o planned CABG Diagnostic RX Recommendation: PCI w/o planned CABG Anticoagulation: Heparin Pressures Phase:Rest AO : 3 / -1 ( 0 ) @ 10:10:00 AM 196 / 85 ( 127 ) @ 10:14:00 AM 170 / 68 ( 107 ) @ 10:19:00 AM 162 / 58 ( 98 ) @ 10:20:00 AM 147 / 63 ( 96 ) @ 11:04:00 AM 168 / 69 ( 107 ) @ 12:03:00 PM Clinical Evaluation EBL: 5mL-10mL Procedural Details Pre-Procedure Time Out. Identified patient by full name and date of as verbalized by the patient/guarantor. Does the consent match the physician's order: Yes. Accurate & Complete Informed Consent: Yes. Inpatient/Outpatient History & Physical on Chart: Yes. If H&P is completed, is and addenduem needed: No; If yes, is the addendum complete: N/A. Visualize and Verify Site with Patient/Guarantor: N/A. Relevant Radiology Images available: N/A. Pre-op teaching completed and patient verbalized understanding. The risks, benefits, and alternatives of sedation and/or procedure were discussed by physician. The patient agrees to continue. Procedure started. [facility] Clinical Fraility Score: 4: Vulnerable. Supervisor Chemical Indications: LV Dysfunction. Chest Pain Symptom Assessment: Atypical Angina. Cardiovascular Instability: No. Correct patient, site and procedure confirmed by cath team. Current diagnosis: LV Dysfunction. PERRLA. Strong, equal hand pheresis specialist bilaterally. Lungs clear x 5 lobes. IV Site on Arrival: 20 gauge in the right anticubital. IV Fluids: 0.9% NaCl at KVO. 0 mL infused prior to clinical laboratory medical director. Pre Procedural Pulses: bilateral radial was 3+. Pre Procedural Pulses: bilateral posterior tibial was Doppled. Pre Procedural Pulses: bilateral dorsalis pedis was Doppled. Oxygen started at 3liters/min via nasal canula. bilateral groins was prepped with chloroprep then draped in the usual sterile fashion. Physician notified. Physician arrived. Current Diagnosis : ACS. Physician Scrubbed in. Hemodynamic formulas in Rest were re-calculated based on hemoglobin value from 06/21/2021 6:00:00 AM. Baseline sample Acquired. HR: 72 BPM. Abnormal Labs discussed prior to start with MD. No new orders. Creat 4.4. Patient to be dialyzed post procedure. Lidocaine 1% infiltrated to the right groin. Arterial access obtained with micropuncture set. Patient's Family Updated. 7 kenyan XB 3.5 guide catheter was inserted over the wire. Guide seated in the LCS. 300 cm Runthrough guidewire was advanced through the guide catheter to lesion in the prox LAD. Runthrough advanced across the lesion. Teleport Microcatheter inserted over the wire. Advanced to the Distal LAD. Runthrough removed. Viperwire inserted. Teleport catheter removed over the wire. Angiography performed. CSI device inserted. Tested prior to insert. Advanced to the lesion in the Proximal LAD. Atherectomy of the Proximal LAD performed. Angiography performed. [place] Advanced to mid LAD. Atherectomy of the Mid LAD performed. ACT drawn. Results 376 seconds. Therapeutic limits - pre-heparin administration 90-150 seconds and monitoring heparin during a vascular procedure >250 seconds. Angiography performed. CSI rob removed over the wire. Teleport catheter inserted over the viper wire. Viper wire removed. 300 cm Runthrough inserted. Teleport removed over the wire. 2nd runthrough 180 cm inserted and advanced down the 1st diagonal. Equipment: 6F - Femoral. Cardiac Cath Pack. ACIST Manifold Kit Model BT 2000. Heparinized Saline (2 units/mL), 1000 mL bag. Kit, Micropuncture. Inflation number : 1 A AB TREK 2.50X12 RX BALLOON was prepped and advanced across the 1st Diag , then inflated to 12 SCOTTIE for 0:31 seconds. Inflation number: 2 The AB TREK 2.50X12 RX BALLOON was reinflated across the 1st Diag, to 12 SCOTTIE for 0:29 seconds. Balloon out over the wire. Balloon inserted over 300 cm Runthrough wire. Balloon out over the wire. 300 cm Runthrough removed. 2nd 180 cm Runthrough inserted and advanced down the LAD. Inflation number: 1 The AB TREK 2.50X12 RX BALLOON was reinflated across the Mid LAD, to 12 SCOTTIE for 0:17 seconds. Inflation number: 2 The AB TREK 2.50X12 RX BALLOON was reinflated across the Mid LAD, to 12 SCOTTIE for 0:17 seconds. Inflation number: 3 The AB TREK 2.50X12 RX BALLOON was reinflated across the Mid LAD, to 12 SCOTTIE for 0:17 seconds. Balloon back to Proximal LAD. Inflation number: 1 The AB TREK 2.50X12 RX BALLOON was reinflated across the Prox LAD, to 12 SCOTTIE for 0:13 seconds. Balloon out over the wire. Angiography performed. INVENTORY: ENDOFLATOR X2. Inflation Number : 3 A MDT R NOELLE 2.75X15 JD -Lot Number# [id number] was prepped and advanced across the 1st Diag. The stent was deployed at 12 SCOTTIE for 0:33 seconds. EXP 12/16/2022. Diagonal balloon removed over the wire. Angiography performed. Diagonal Runthrough wire removed. Inflation Number : 4 A MDT R NOELLE 3.0X22 JD -Lot Number# [id number] was prepped and advanced across the Mid LAD. The stent was deployed at 14 SCOTTIE for 0:33 seconds. EXP 01/15/2023. LAD balloon out over the wire. Angiography performed. Inflation Number : 2 A MDT R NOELLE 3.5X18 JD -Lot Number# [id number] was prepped and advanced across the Prox LAD. The stent was deployed at 12 SCOTTIE for 0:32 seconds. EXP 01/20/2023. Stent balloon out over the wire. Angiography performed. Runthrough pulled back into the guide. Attempting to advance down the diagonal 1. Unable to advance runthrough. Wire removed. Runthrough wire inserted and advanced down the LAD. ACT drawn. Results 298 seconds. Therapeutic limits - pre-heparin administration 90-150 seconds and monitoring heparin during a vascular procedure >250 seconds. Lathe Set Up Person 50 inserted and attempted to advance down the diagonal 1. Unable to cannulated. Lathe Set Up Person 50 removed. New Lathe Set Up Person 50 wire inserted. Attempting to cross with use of teleport catheter. Unable to cannulate. Teleport and missile control pilot 50 removed. Inflation number : 3 A MDT ARJUN EUPHORA RX [id number] BALLOON was prepped and advanced across the Prox LAD , then inflated to 14 SCOTTIE for 0:21 seconds. Inflation number: 4 The MDT NC EUPHORA RX [id number] BALLOON was reinflated across the Prox LAD, to 14 SCOTTIE for 0:17 seconds. Balloon out over the wire. Inflation number : 5 A MDT NC EUPHORA RX [id number] BALLOON was prepped and advanced across the Mid LAD , then inflated to 14 SCOTTIE for 0:12 seconds. Inflation number: 6 The MDT NC EUPHORA RX [id number] BALLOON was reinflated across the Mid LAD, to 16 SCOTTIE for 0:15 seconds. Inflation number: 7 The MDT NC EUPHORA RX [id number] BALLOON was reinflated across the Mid LAD, to 16 SCOTTIE for 0:18 seconds. Inflation number: 8 The MDT NC EUPHORA RX 3.87M92IJ BALLOON was reinflated across the Mid LAD, to 16 SCOTTIE for 0:17 seconds. Balloon out over the wire. Angiography performed. Lathe Set Up Person 50 wire going in. Attempting to cross into diagonal 1. Lathe Set Up Person 50 out. Runthrough inserted. Runthrough advanced down the diagonal 1. 1.2X12 balloon inserted but unable to advance across the lesion. Balloon removed over the wire. LAD runthrough wire removed. Diagonal wire removed. Runthrough reshaped inserted. Teleport catheter inserted. Runthrough removed. New Lathe Set Up Person 50 wire inserted. Wire out. Teleport catheter out. Angiography performed. Guide catheter out over the wire. Physician review of films. Hand injection of right common femoral to assess for closure device. ACT drawn. Results 223 seconds. Therapeutic limits - pre-heparin administration 90-150 seconds and monitoring heparin during a vascular procedure >250 seconds. Lidocaine 1% infiltrated to the right groin. Immediate Pre-Procedure Time Out. Correct Patient: Yes; Correct Procedure: Yes; Correct Site: Yes; Correct Patient Position: Yes; Correct Supplies: Yes; Dried Flammable Prep: Yes; Blood Products Available: N/A;. A Angio-Seal VIP ([place]) was successful obtaining hemostatsis at the Right Femoral artery insertion site. Sheath(s) removed and manual pressure held until hemostasis was achieved. Sterile 4x4 and Op-site applied to the puncture site. No oozing or hematoma noted. Post sheath removal instructions were given and the patient verbalized understanding. Angioseal placed without complications. No signs or symptoms of hematoma noted. Sterile dressing applied per usual sterile fashion. Lot #[id number] Exp 02/10/2022. Post Procedure: Pulses reassessed and unchanged. PERRLA. Strong, equal hand pheresis specialist bilaterally. No VTE prophylaxis required. Medication's Wasted: Lidocaine 1% = 2 ml. Medication's Wasted: Heparin = 3000 units. Medication's Wasted: Hydralazine = 10 mg. Medication's Wasted: Versed = 1 mg. Medication's Wasted: Nitro = 49 mg. Total IV fluids: 157 mL. Fluoro: 55:01. Contrast type used: Omnipaque 300 mgI/mL, 500 mL bottle. [id number]. [id number]. PCI Indication: Angina; severe LAD stenosis; diagonal stenosis. Vital chart was stopped. Post-op diagnosis: SEVERE LAD AND DIAGONAL STENOSIS. Complications: None. Estimated blood loss: 5mL-10mL. Procedure completed. Patient transferred by bed to 1st floor. Vital chart was stopped. Access Site Site: Right Femoral artery Sheath Size: 7 Fr Hemostasis Method: Angio-Seal VIP ([place]) Hemostasis Success: Successful Procedure Medications Start: 11:08 AM Stop: 11:08 AM Medication: Versed Amount: 1 mg Route: I.V. Start: 11:08 AM Stop: 11:08 AM Medication: Fentanyl Amount: 50 mcg Route: I.V. Start: 11:11 AM Stop: 11:11 AM Medication: Versed Amount: 1 mg Route: I.V. Start: 11:14 AM Stop: 11:14 AM Medication: Heparin Amount: 9000 units Route: I.V. Start: 11:14 AM Stop: 11:14 AM Medication: Hydralazine Amount: 10 mg Route: I.V. Start: 11:17 AM Stop: 11:17 AM Medication: Fentanyl Amount: 50 mcg Route: I.V. Start: 11:24 AM Stop: 11:24 AM Medication: Versed Amount: 1 mg Route: I.V. Start: 11:32 AM Stop: 11:32 AM Medication: Versed Amount: 1 mg Route: I.V. Start: 11:37 AM Stop: 11:37 AM Medication: Fentanyl Amount: 50 mcg Route: I.V. Start: 11:40 AM Stop: 11:40 AM Medication: Versed Amount: 1 mg Route: I.V. Start: 12:00 PM Stop: 12:00 PM Medication: Heparin Amount: 2000 units Route: I.V. Start: 12:22 PM Stop: 12:22 PM Medication: Fentanyl Amount: 50 mcg Route: I.V. Start: 12:22 PM Stop: 12:22 PM Medication: Heparin Amount: 1000 units Route: I.V. Start: 12:05 PM Stop: 12:05 PM Medication: Versed Amount: 1 mg Route: I.V. Start: 12:58 PM Stop: 12:58 PM Medication: Versed Amount: 1 mg Route: I.V. Start: 12:50 PM Stop: 12:50 PM Medication: Heparin Amount: 1000 units Route: I.V. Start: 1:13 PM Stop: 1:13 PM Medication: Heparin Amount: 2000 units Route: I.V. I, the attending physician, have reviewed and verified all procedure medications. Yes, all medications given per verbal order History/Risk Factors Hypertension: Yes Dyslipidemia: No Peripheral Arterial Disease (PAD): No Myocardial Infarction (ND): No Obesity: Yes Renal Disease: Yes Tobacco Use: Never Dialysis: Current Prior Interventions PCI: No CABG: Yes Valve Surgery: No Report Signatures Finalized by Fly Long MD on 07/06/2021 07:10 PM
[2021-06-21] MEDS: diphenhydrAMINE 50 mg Capsule PO (10:51)
--- NOTE | 2021-06-21 10:54 | PC.NURSE ---
off unit to cook house laborer via bed
--- NOTE | 2021-06-21 12:39 | PM.PN ---
Subjective Subjective: Interval history: Status post 1400 cc removed from left pleural yesterday, patient endorsed feeling better, she was saturating well on room air Going for PCI today Vitals/I&O/Wt Last Vital Signs Temp 97.8 F 06/21/21 07:24 Pulse 69 06/21/21 07:35 Resp 20 H 06/21/21 07:35 BP 176/89 06/21/21 09:07 Pulse Ox 95 06/21/21 07:35 06/20/21 06/21/21 06/21/21 22:59 06:59 14:59 Intake Total 120 / 120 Balance 120 / 120 Weight last 48 hrs Weight 94.6 kg Physical Exam Narrative: EXAM NARRATIVE: Patient was saturating well on room air EOMI, PERRLA Awake alert oriented x3 GCS 15 S1, S2 with mild signs of fluid overload 1+ edema Right dialysis catheter Bilateral breath sounds with diminished flow at the bases Abdomen soft no signs of peritonitis Appropriate mood and affect No neurological deficits Left BKA Data : 06/21/21 06:00 06/21/21 06:00 Micro: Microbiology 06/20/21 16:00 Gram Stain - Final Pleural Fluid 06/13/21 11:45 Anaerobic Culture - Preliminary Pleural Fluid A&P Assessment and plan (1) CAD (coronary artery disease): Status: Acute Qualifiers: Coronary Disease-Associated Artery/Lesion type: [place] artery [place] vs. transplanted heart: [place] heart Associated angina: without angina Qualified Code(s): I25.10 - Atherosclerotic heart disease of [place] coronary artery without angina pectoris (2) Heart failure with reduced ejection fraction: Status: Acute (3) Increasing shortness of breath: Status: Acute (4) Large pleural effusion: Status: Acute (5) Charcot's joint, right ankle and foot: Status: Acute (6) Diabetic ulcer of left foot: Status: Acute (7) Anemia: Status: Acute Qualifiers: Anemia type: unspecified type Qualified Code(s): D64.9 - Anemia, unspecified Additional A&P Information Established coronary disease Extremely calcified tight mid LAD lesion as well as diagonal Patient awaiting PCI today/arthrectomy Symptomatic left-sided pleural effusion Exudative in nature Secondary to use of Lasix Patient has been continued on Levaquin empirically every 48 hours Chronic inflammation with reactive mesothelial cells without any malignancy Patient underwent thoracentesis twice with removal of 1100 cc yellow pleural fluid and then repeat thoracentesis on 06/20 1400 cc straw-colored fluid removed CT chest revealed mediastinal lymphadenopathy, will need outpatient follow-up Decompensated heart failure with underlying severe reduced action fraction Patient is getting higher doses of Lasix along evidence-based medicine for reduced action fraction heart failure End-stage renal disease Monday Nephrology is following up, appreciate recommendations Chronic anemia seems anemia of chronic disease stable Right leg edema: Venous stasis dermatitis: Wound care, has history of peripheral vascular disease Renal dialysis diet after procedure Continue DVT prophylaxis Heparin after her procedure Attestations Medical Necessity Statement*: Continue medical management, awaiting PCI today Time Spent in Patient Care: less than 15 minutes Coding Level of Care Code 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 transplanted heart: [place] heart Associated angina: without angina Heart failure with reduced ejection fraction I50.20 Increasing shortness of breath R06.02 Large pleural effusion J90 Charcot's joint, right ankle and foot M14.671 Diabetic ulcer of left foot E11.621; L97.529 Anemia D64.9 Anemia type: unspecified type
--- NOTE | 2021-06-21 13:30 | PC.NURSE ---
From dental laboratory assistant pt is alert, oriented. denies any pain or discomfort. Right groin dressing is dry and intact. no bleeding, hematoma or swelling noted. old bruises from previous procedure noted. Instructed pt on activity bedrest and to let the nurse know of any unusual pain, pressure or discomfort on right groin. pt verbalizes understanding. v/s taken.
--- NOTE | 2021-06-21 14:28 | PC.SOCIAL ---
IMM UPDATE Gave patient IMM update with her at bedside. Provided her copy of pg 2. Verbalized understanding. Initialed, dated, timed and placed in chart.
--- NOTE | 2021-06-21 14:49 | PC.NURSE ---
off unit to Hemodialysis room via bed
--- NOTE | 2021-06-21 18:27 | PC.NURSE ---
Shift summary Pt is alert, oriented x4. Denies any chest pain or discomfort post left heart cath. Pt had an angioseal to her right groin. Dressing to right groin is clean, dry and intact. No hematoma, swelling or bleeding. Activity restrictions such as bedrest discuss to pt. Pt verbalizes and teach. 1430 pm-Pt had her hemodialysis. Will keep monitoring.
[2021-06-21] MEDS: levoFLOXacin 500 mg Tablet PO (18:45)
[2021-06-21] MEDS: heparin 5,000 unit/mL INJ 1 mL 5000 UNIT SUBCUT (18:49)
[2021-06-21] MEDS: atorvastatin 40 mg Tablet PO (19:42)
[2021-06-21] MEDS: nystatin cream 30 gm 1 APPLIC TOPICAL (21:00)
--- NOTE | 2021-06-21 23:36 | P.PN_ITS ---
Subjective Subjective: Interval history: Patient underwent successful PCI of proximal to mid LAD today with arthrectomy and bifurcation stenting of the LAD/first diagonal artery. Feeling well. Underwent dialysis post procedure Vitals/I&O/Wt Last Vital Signs Temp 98.3 F 06/21/21 20:00 Pulse 72 06/21/21 21:59 Resp 32 H 06/21/21 20:00 BP 116/59 06/21/21 20:00 Pulse Ox 94 06/21/21 20:00 06/21/21 06/21/21 06/22/21 14:59 22:59 06:59 Intake Total 360 / 360 Output Total 2498 / 2498 Balance -2138 / -2138 Weight last 48 hrs Weight 201 lb 0.985 oz Physical Exam Narrative: EXAM NARRATIVE: GENERAL: Patient is alert, awake and oriented x3. [] NECK: No jugular vein distension. [] HEENT: No cyanosis. No icterus. No pallor. [] HEART: Regular S1 and S2. No murmur, rub or gallop. [] LUNGS: Has mild wheezing ABDOMEN: Soft, nontender and nondistended. Positive bowel sounds. No guarding, rebound or tenderness. [] CENTRAL NERVOUS SYSTEM: Grossly nonfocal. [] EXTREMITIES: Lower extremity lympedema on the right side. [] Data : 06/21/21 06:00 06/21/21 06:00 Micro: Microbiology 06/13/21 11:45 Anaerobic Culture - Final Pleural Fluid 06/20/21 16:00 Gram Stain - Final Pleural Fluid A&P Assessment and plan (1) Heart failure with reduced ejection fraction: LVEF (55-->15-20%)On coreg. On losartan and Aldactone. Continue diuretics. Patient had severe prox to mid LAD/diagonal artery disease. Patient had PCI of prox to mid LAD and diagonal artery with arthrectomy and JD X3. Aspirin and Plavix for atleast 1 [address] Will follow [address] Dr Gamble Status: Acute (2) CAD (coronary artery disease): Underwent successful PCI of the LAD/Diagonal artery with JD x3 and arthrectomy. Continue aspirin and plavix for atleast 1 year Status: Acute Qualifiers: Coronary Disease-Associated Artery/Lesion type: [place] artery [place] vs. transplanted heart: [place] heart Associated angina: without angina Qualified Code(s): I25.10 - Atherosclerotic heart disease of [place] coronary artery without angina pectoris (3) Large pleural effusion: Had throcentesis done yesterday Status: Acute (4) Hypertension: Blood pressure elevated. Status: Acute Qualifiers: Hypertension type: essential hypertension Qualified Code(s): I10 - Essential (primary) hypertension (5) ESRD (end stage renal disease): Dialysis done today Status: Acute (6) Diabetes: Status: Acute Additional A&P Information Macrocytic anemia Thrombocytopenia Elevated alkaline phosphatase Thank you for involving us with care of this patient. We will continue to follow. Please call with questions. Attestations Medical Necessity Statement*: Care expected to cross 2 midnights. Coding Level of Care Code Acute Contract Runner for Gregorio Thompson Diagnoses Heart failure with reduced ejection fraction I50.20 CAD (coronary artery disease) I25.10 Coronary Disease-Associated Artery/Lesion type: [place] artery [place] vs. transplanted heart: [place] heart Associated angina: without angina Large pleural effusion J90 Hypertension I10 Hypertension type: essential hypertension ESRD (end stage renal disease) N18.6 Diabetes E11.9
[2021-06-22 04:00] VITALS: BP 174/83; PULSE 71; RESP 15; TEMP 36.8; O2SAT 97
[2021-06-22 04:08] VITALS: PULSE 70
[2021-06-22 04:36] LABS: Basophils % 0.1 %; Hematocrit 37.4 % (37.0-47.0); Hemoglobin 12.2 g/dL (11.5-15.3); Lymphocytes # 0.4 10^3/uL (0.8-4.8); Mean Corpuscular HGB Conc 32.6 g/dL (30.0-36.0); Mean Corpuscular Hemoglobin 32.6 pg (28.0-34.0); Mean Platelet Volume 10.4 fL (7.4-10.4); Monocytes # 0.3 10^3/uL (0.2-0.9); Monocytes % 2.2 %; Neutrophils # 11.47 10^3/uL (1.8-7.7); Neutrophils % 94.2 %; Nucleated Red Blood Cells % 0 %; Platelet Count 201 10^3/cmm (130-400); Red Blood Count 3.74 10^6/uL (4.1-5.3); Red Cell Distribution Width 16.8 % (12.1-15.1); White Blood Count 12.2 10^3/uL (4.0-10.0)
[2021-06-22 04:56] LABS: Anion Gap 14.6 (5-19); Blood Urea Nitrogen 37 mg/dL (6-20); Calcium 8.2 mg/dL (8.5-10.5); Carbon Dioxide 25 mmol/L (22-29); Chloride 98 mmol/L (98-107); Glomerular Filtration Rate 12.6 mL/min (90-130); Glucose 226 mg/dL (65-115); Osmolality Calculated 292 mOsm/kg (285-295); Potassium 4.6 mmol/L (3.5-5.1); Sodium 133 mmol/L (136-145)
[2021-06-22 04:57] LABS: Creatinine Clr Calc Pharmacy 18.8535
[2021-06-22 04:59] LABS: Magnesium 2.1 mg/dL (1.7-2.3)
[2021-06-22] MEDS: levothyroxine 150 mcg Tablet PO (05:36)
[2021-06-22] MEDS: heparin 5,000 unit/mL INJ 1 mL 5000 UNIT SUBCUT (05:36)
--- NOTE | 2021-06-22 06:52 | PM.PN ---
Subjective Subjective: Interval history: feels better. s/p PCI of proximal to mid LAD and arthrectomy yesterday. tolerated HD well. no n/v/f/c/kearney/d. dec sob- improved resp status Medications: Reviewed: Yes Medication Review Details: Current Medications Acetaminophen (Acetaminophen 325 Mg Tablet) 650 mg PO Q6H PRN PRN Reason: MILD PAIN Hydrocodone Bitart/Acetaminophen (Hydrocodone-Acetaminophen 5-325 Mg Tablet) 1 tab PO Q6H PRN PRN Reason: MODERATE pain Last Admin: 06/16/21 20:13 Dose: 1 tab Documented by: Al Hydrox/Mg Hydrox/Simethicone (Ugwn-Lrh-Wtrdurftj-Luis Armando 30 Ml Udc) 30 ml PO Q15M PRN PRN Reason: INDIGESTION Albuterol Sulfate (Albuterol 8 Gm Mdi) 2 puff INHALATION Q4H PRN PRN Reason: Shortness Of Breath Albuterol/Ipratropium (Ipratropium-Albuterol 3 Ml Neb) 3 ml INHALATION Q6H PRN PRN Reason: SHORTNESS OF BREATH Alprazolam (Alprazolam 0.5 Mg Tablet) 0.25 mg PO TID PRN PRN Reason: ANXIETY Aspirin (Aspirin 81 Mg Chew Tablet) 81 mg PO DAILY [facility] [place] Last Admin: 06/21/21 09:06 Dose: 81 mg Documented by: Atorvastatin Calcium (Atorvastatin 40 Mg Tablet) 40 mg PO BEDTIME [facility] [place] Last Admin: 06/21/21 19:42 Dose: 40 mg Documented by: Atropine Sulfate (Atropine 1 Mg/Ml Sdv 1 Ml) 0.5 mg IVP PRN PRN PRN Reason: Symptomatic bradycardia Atropine Sulfate (Atropine 1 Mg/Ml Sdv 1 Ml) 0.5 mg IVP PRN PRN PRN Reason: Symptomatic bradycardia Carvedilol (Carvedilol 25 Mg Tablet) 25 mg PO BID [facility] [place] Last Admin: 06/21/21 18:44 Dose: 25 mg Documented by: Clopidogrel Bisulfate (Clopidogrel 75 Mg Tablet) 75 mg PO DAILY [facility] [place] Last Admin: 06/21/21 09:06 Dose: 75 mg Documented by: Docusate Sodium (Docusate Sodium 100 Mg Capsule) 100 mg PO BID PRN PRN Reason: Constipation Fentanyl (Fentanyl 50 Mcg/Ml Inj 2ml) 50 mcg IVP PRN PRN PRN Reason: PAIN Fentanyl (Fentanyl 50 Mcg/Ml Inj 2ml) 50 mcg IVP PRN PRN PRN Reason: PAIN Fluticasone Propionate (Fluticasone Nasal [place] 16gm Btl) 2 spray NASAL DAILY [facility] [place] Last Admin: 06/21/21 09:11 Dose: Not Given Documented by: Furosemide (Furosemide 10 Mg/Ml Sdv 4ml) 80 mg IVP 0800,1400 [facility] [place] Last Admin: 06/21/21 09:09 Dose: 80 mg Documented by: Guaifenesin (Guaifenesin 100 Mg/5 Ml Udc 10 Ml) 200 mg PO Q4H PRN PRN Reason: COUGH AND CONGESTION Last Admin: 06/18/21 21:24 Dose: 200 mg Documented by: Heparin Sodium (Beef Lung) (Heparin 5,000 Unit/Ml Inj 1 Ml) 5,000 unit SUBCUT Q12H [facility] [place] Last Admin: 06/22/21 05:36 Dose: 5,000 unit Documented by: Albumin Human (Albumin) 12.5 gm in 50 mls @ 60 mls/hr IV PRN PRN PRN Reason: Hypotension and/or symptomatic Levofloxacin (Levofloxacin 500 Mg Tablet) 500 mg PO Q48H [facility] [place]; Protocol Last Admin: 06/21/21 18:45 Dose: 500 mg Documented by: Levothyroxine Sodium (Levothyroxine 150 Mcg Tablet) 150 mcg PO QAM [facility] [place] Last Admin: 06/22/21 05:36 Dose: 150 mcg Documented by: Losartan Potassium (Losartan 50 Mg Tablet) 75 mg PO DAILY [facility] [place] Last Admin: 06/21/21 09:07 Dose: 75 mg Documented by: Magnesium Hydroxide (Magnesium Hydroxide 30 Ml Udc) 30 ml PO DAILY PRN PRN Reason: CONSTIPATION Multivitamins (K-Xzwzykl-Tphnxzj C Tablet) 1 each PO DAILY [facility] [place] Last Admin: 06/21/21 09:06 Dose: 1 each Documented by: Naloxone HCl (Naloxone 0.4 Mg/Ml Sdv) 0.1 mg IVP Q2M PRN PRN Reason: RESPIRATORY RATE < 8/MIN Nitroglycerin (Nitroglycerin 0.4 Mg Sublingual Tablet) 0.4 mg SUBLINGUAL Q5M PRN PRN Reason: CHEST PAIN Nystatin (Nystatin Cream 30 Gm) 1 applic TOPICAL BID PRN PRN Reason: ITCHING Last Admin: 06/21/21 21:00 Dose: 1 applic Documented by: Ondansetron HCl (Ondansetron 4 Mg Tablet) 4 mg PO Q6H PRN PRN Reason: nausea and vomiting Ondansetron HCl (Ondansetron 2 Mg/Ml Sdv 2 Ml) 4 mg IVP Q6H PRN PRN Reason: NAUSEA AND VOMITING Prednisone (Prednisone 20 Mg Tablet) 40 mg PO QID [facility] [place] Last Admin: 06/21/21 19:42 Dose: 40 mg Documented by: Spironolactone (Spironolactone 25 Mg Tablet) 50 mg PO DAILY [facility] [place] Last Admin: 06/21/21 09:07 Dose: 50 mg Documented by: Temazepam (Temazepam 15 Mg Capsule) 15 mg PO BEDTIME PRN PRN Reason: INSOMNIA Vitals/I&O/Wt Last Vital Signs Temp 98.3 F 06/22/21 04:00 Pulse 70 06/22/21 04:08 Resp 15 06/22/21 04:00 BP 174/83 06/22/21 04:00 Pulse Ox 97 06/22/21 04:00 06/21/21 06/21/21 06/22/21 14:59 22:59 06:59 Intake Total 360 / 360 450 / 810 Output Total 2498 / 2498 Balance -2138 / -2138 450 / -1688 Weight last 48 hrs Weight 91.2 kg Physical Exam Narrative: EXAM NARRATIVE: vs noted- bp remains elevated comfortable in bed heent-nc/at, eomi, anicteric neck- supple, no jvp RT ACW dialysis catheter lungs- improved air movement b/l heart- reg, +TATY abd soft, nt, nd ext L BKA, trace b/l leg edema neuro- a,a,o x 3 Data : 06/22/21 04:23 06/22/21 04:23 Micro: Microbiology 06/13/21 11:45 Anaerobic Culture - Final Pleural Fluid A&P Additional A&P Information 1. ESRD s/p Dialysis yesterday; -plan repeat HD in am- MWF -3.5 hrs, 2K, UF 2-3L as tolerated Can be as outpt Dose medication for GFR less than 15 on dialysis. 2. Shortness of breath and pleural effusion -feels better after thoracentesis, Cath w/ PCI and HD 3. CAD LHC noted or multivessel disease, s/p LAD PCI and artherctomy on 06-21-21 -on asa and plavix 4. CHF- 2D echo: Mildly dilated left ventricle. Severely decreased left ventricular systolic function. Left ventricular ejection fraction is estimated at 15 %. There is severe global hypokinesis with relative sparing of basal to mid inferolateral [place]. Restrictive diastolic filling pattern with severely increased filling pressure. Mildly increased right ventricular size. Moderately decreased right ventricular systolic function. Mild biatrial enlargement. Moderate tricuspid valve regurgitation. Severely increased pulmonary artery pressure estimated at 62 mmHg. -on aldactone, lasix and ARB 5. BP - monitor on current meds and fluid removal on hd 6. hgb okay 6b. leukocytosis- monitor per medicine and cardiology 7. renal bone- mineral -metabolism- normal phos, ca 8.1, pth 69- no vit d analouges 8. hyponatremia- from ESRD and CHF Patient seen and examined via telemedicine, with the assistance of the bedside RN 25 min spent in evaluation and mgmt of patient Attestations Medical Necessity Statement*: per medicine and cardiology Time Spent in Patient Care: 16 - 35 minutes Coding Level of Care Code Acute Chicken Hatchery Helper for Gregorio Thompson
[2021-06-22 08:00] VITALS: BP 156/82; PULSE 76; RESP 22; TEMP 36.7; O2SAT 98
--- NOTE | 2021-06-22 08:18 | PC.NUTR ---
Nutrition follow up: Contacted Dr. Hooks, as apparently after PCI procedure, diet was changed to Cardiac. Received ordered to change back to previous Renal dialysis consistent carb diet. Recommend to continue with Nepro 4 oz TID and encourage po intakes of meals/supplement. See full RD assessment for further details.
[2021-06-22] MEDS: b-complex-vitamin c Tablet 1 EACH PO (09:58)
[2021-06-22] MEDS: aspirin 81 mg Chew Tablet PO (09:58)
[2021-06-22] MEDS: spironolactone 25 mg Tablet 50 MG PO (09:58)
[2021-06-22] MEDS: carvedilol 25 mg Tablet PO (09:58)
[2021-06-22] MEDS: clopidogrel 75 mg Tablet PO (09:58)
[2021-06-22] MEDS: predniSONE 20 mg Tablet 40 MG PO (09:58)
--- NOTE | 2021-06-22 10:36 | P.PN_ITS ---
Subjective Subjective: Interval history: s/p repeat LHC and stents to LAD and diagonal via R femoral access. Medications: Reviewed: Yes Vitals/I&O/Wt Last Vital Signs Temp 98.0 F 06/22/21 08:00 Pulse 76 06/22/21 08:00 Resp 22 H 06/22/21 08:00 BP 156/82 06/22/21 08:00 Pulse Ox 98 06/22/21 08:00 06/21/21 06/22/21 06/22/21 22:59 06:59 14:59 Intake Total 360 / 360 450 / 810 Output Total 2498 / 2498 Balance -2138 / -2138 450 / -1688 Weight last 48 hrs Weight 201 lb 0.985 oz Physical Exam Narrative: EXAM NARRATIVE: GENERAL: obese woman sitting in bed in no acute distress HEENT: Pupils equal round reactive to light. No pallor or icterus. NECK: Elevated JVD. No carotid bruit. CARDIOVASCULAR SYSTEM: S1-S2 regular. PMI displaced. grade 3/6 SM in LLSB. RESPIRATORY SYSTEM: Absent breath sounds bilateral mid to basal posterior lung martin (L>R). No wheezes or rhonchi heard. ABDOMEN: Soft, nontender and nondistended. Normal bowel sounds present. EXTREMITIES: No cyanosis or clubbing. 1+ pitting and non pitting edema below knee on right. Left below-knee amputation HELPER/DRIVER: Patient is alert oriented ?3. No focal neurological deficits. SKIN: Normal turgor and temperature. PSYCH: Normal insight and judgment. Data : 06/22/21 04:23 06/22/21 04:23 Micro: Microbiology 06/20/21 16:00 Gram Stain - Final Pleural Fluid Body Fluid Culture - Preliminary 06/13/21 11:45 Anaerobic Culture - Final Pleural Fluid A&P Assessment and plan (1) Heart failure with reduced ejection fraction: LVEF (55-->15-20%)On coreg, losartan and Aldactone. -continue lasix 80 mg PO daily Patient had severe prox to mid LAD/diagonal artery disease. Patient had PCI of prox to mid LAD and diagonal artery with arthrectomy and JD X3. Aspirin and Plavix for at least 1 year F/u with Ms. Fatima in 4-7 days and f/u with me in 1 month. -Declined Life vest. No arrhythmias on telemetry. -Stable to be discharged. Status: Acute (2) CAD (coronary artery disease): Underwent successful PCI of the LAD/Diagonal artery with JD x3 and arthrectomy. Continue aspirin and plavix for atleast 1 year Status: Acute Qualifiers: Coronary Disease-Associated Artery/Lesion type: [place] artery [place] vs. transplanted heart: [place] heart Associated angina: without angina Qualified Code(s): I25.10 - Atherosclerotic heart disease of [place] coronary artery without angina pectoris (3) Large pleural effusion: Had throcentesis done twice in this hospitalization Status: Acute (4) Hypertension: Blood pressure improved Status: Acute Qualifiers: Hypertension type: essential hypertension Qualified Code(s): I10 - Essential (primary) hypertension (5) ESRD (end stage renal disease): Dialysis done yesterday Status: Acute (6) Diabetes: Status: Acute Additional A&P Information Macrocytic anemia Thrombocytopenia Elevated alkaline phosphatase Thank you for involving us with care of this patient. We will continue to follow. Please call with questions. Attestations Medical Necessity Statement*: stable to be discharged Time Spent in Patient Care: 16 - 35 minutes (>than 50% of time spent in counselling and/or direct pt care on unit) . Coding Level of Care Code Acute Pot Press Operator for Gregorio Thompson Diagnoses Heart failure with reduced ejection fraction I50.20 CAD (coronary artery disease) I25.10 Coronary Disease-Associated Artery/Lesion type: [place] artery [place] vs. transplanted heart: [place] heart Associated angina: without angina Large pleural effusion J90 Hypertension I10 Hypertension type: essential hypertension ESRD (end stage renal disease) N18.6 Diabetes E11.9
--- NOTE | 2021-06-22 10:53 | P.DS_ITS ---
Discharge Providers Date of Admission: 06/14/21 20:11 Date of Discharge: June 22, 2021 Attending Provider at Admission: Ramone Hooks MD Attending Provider at Discharge: Ramone Hooks MD Primary Care Provider: Karen Bear MD Diagnoses at Discharge Discharge Diagnosis (1) Heart failure with reduced ejection fraction: Status: Acute (2) CAD (coronary artery disease): Status: Acute Qualifiers: Coronary Disease-Associated Artery/Lesion type: koi artery [place] vs. transplanted heart: koi heart Associated angina: without angina Qualified Code(s): I25.10 - Atherosclerotic heart disease of koi coronary artery without angina pectoris (3) Large pleural effusion: Status: Acute (4) Hypertension: Status: Acute Qualifiers: Hypertension type: essential hypertension Qualified Code(s): I10 - Essential (primary) hypertension (5) ESRD (end stage renal disease): Status: Acute (6) Diabetes: Status: Acute Permanent problem details: Diabetes mellitus type 2, insulin-dependent. HbA1c January 03?4.9 Reason for Visit Reason for Visit: SOB Hospital Course Hospital Course HPI Alesia Shaw is a 60 year old female past medical history of CKD stage IV on hemodialysis Monday, type 2 diabetes mellitus, hypothyroidism, lymphedema, history of MRSA infection, history of aortic valve endocarditis, history of diastolic heart failure, Charcot's foot, preserved ejection fraction heart failure presented today with chief complaint of shortness of breath. Patient is stating that she has chronic shortness of breath but never required any oxygen in the past. Her peritoneal dialysis catheter got infected then she was transitioned to hemodialysis from December 03. Dr. Jorgensen placed her dial ysis catheter which was recently evaluated by Dr. Medina, there is no plan of replacing the catheter, there was some concern regarding Cathflo. For last few months her shortness of breath has been getting worse, recently she has not noticed any fever, sinusitis, allergies, she is endorsing orthopnea, PND and getting short of breath easily with minimal exertion. The symptoms are associated with nausea and dry heaves. She has been producing yellow-colored sputum as well. She is a non-smoker. She has not been vaccinated for COVID-19. And she is not planning for vaccination in future as well. Her symptoms are also associated with left-sided chest pressure which she feels on laying flat. Her last dialysis session was on Monday. She decided to come to the hospital for further evaluation for worsening of her shortness of breath Diagnosis in the ER revealed hypertensive urgency, she was requiring 2 L of oxygen at rest however saturating 100%, CT chest revealed left-sided pleural ef fusion high D-dimer, multiple scattered lymph nodes, mediastinal lymphadenopathy, no active signs of consolidation Considering symptomatic shortness of breath she will need thoracentesis Hospital course Patient was admitted for management of symptomatic pleural effusion, shortness of breath, and chest pain. She underwent left-sided thoracentesis twice, 1100 cc and 1400 cc were removed by Dr. Means, it was an exudative fluid however she has been getting Lasix, she was put on antibiotics empirically however chest imaging did not show any active consolidation. This could very well be secondary to Lasix induced conversion of transudative to exudative pleural effusion. She stayed afebrile, cultures negative, pleural cytology negative for malignancy showed chronic inflammation, AFB negative. Fungal cultures negative. For her persistent shortness of breath, reduced ejection fraction 15 to 20% EF, she underwent cardiac cath through right groin, LHC by Dr. Long, found to have calcified mid LAD and proximal D1 stenosis. s/p repeat LHC and stents to LAD and diagonal via R femoral access. Patient had severe prox to mid LAD/diagonal artery disease. Patient had PCI of prox to mid LAD and diagonal artery with arthrectomy and JD X3. Patient felt better after thoracentesis and placement of stents, remarkable improvement in symptoms after stent placement. To continue dual antiplatelet therapy for at least 1 year. She is a non-smoker. Nonalcoholic. Gets dialyzed Monday. She was dialyzed after her heart cath. Cardiology evaluated her today and deemed her stable to go home. Patient refused LifeVest, no arrhythmia noted on telemetry during hospitalization. Physical Exam Narrative: EXAM NARRATIVE: Patient was saturating well on room air EOMI, PERRLA Awake alert oriented x3 GCS 15 S1, S2 with mild signs of fluid overload 1+ edema Right dialysis catheter Bilateral breath sounds with diminished flow at the bases Abdomen soft no signs of peritonitis Appropriate mood and affect No neurological deficits Left BKA Discharge Data Data Completed and Pending: Completed Studies During Hospitalization Category Date Time Status CT chest wo con 7 1250 Stat Cat Scan 06/13/21 14:06 Completed CXRP [XR chest 1V portable [id number]] R outine Exams 06/14/21 11:42 Completed XR chest 1V pierce ble [id number] Routine Exams 06/16/21 06:00 Completed XR chest 1V pierce ble [id number] Routine Exams 06/20/21 06:00 Completed XR chest 1V pierce ble [id number] Stat Exams 06/20/21 16:26 Completed XR chest 1V pierce ble [id number] Urgent Exams 06/13/21 12:11 [place] [id number] Routin e Ultrasound 06/14/21 08:00 Completed CV. echo complete * [id number] Routine Ultrasound 06/15/21 08:56 Completed US thoracentesis [id number] Routine Ultrasound 06/14/21 08:00 Completed Pending at discharge Category Date Time Status CLOCK MECHANIC request for service Routin e Exams 06/17/21 18:23 Taken CLOCK MECHANIC request for service Routin e Exams 06/21/21 10:43 Taken Body Fluid Cultur e & GS Routine Lab 06/20/21 16:00 Results Complete Blood Co unt w/Auto AM LABS Lab 06/23/21 04:00 Ordered Complete Blood Co unt w/Auto AM LABS Lab 06/24/21 04:00 Ordered Magnesium AM LABS Lab 06/23/21 04:00 Ordered Mycobacteria, Cul ture w/Fluor Routi ne Lab 06/20/21 16:00 Received Phosphorus AM LAB S Lab 06/23/21 04:00 Ordered Cytology [PTH] Ro utine Pth 06/20/21 16:42 Received Labs from last 24 hours 06/22/21 06/22/21 06/22/21 04:23 04:23 04:23 WBC 12.2 H RBC 3.74 L Hgb 12.2 Hct 37.4 MCV 100.0 H MCH 32.6 MCHC 32.6 RDW 16.8 H Plt Count 201 MPV 10.4 Neut % (Auto) 94.2 Lymph % (Auto) 3.0 [place] % (Auto) 2.2 Eos % (Auto) 0.0 Baso % (Auto) 0.1 Neut # (Auto) 11.47 H Lymph # (Auto) 0.4 L [place] # (Auto) 0.3 Eos # (Auto) 0.0 Baso # (Auto) 0.0 Nucleated RBC % (a uto) 0 Nucleated RBCs # 0.0 Sodium 133 L Potassium 4.6 Chloride 98 Carbon Dioxide 25 Anion Gap 14.6 BUN 37 H Creatinine 3.7 H GFR Calculation 12.6 L Glucose 226 H Calculated Osmolal ity 292 Calcium 8.2 L Phosphorus 3.0 Magnesium 2.1 Vitals: Last Vital Signs Temp 98.0 F 06/22/21 08:00 Pulse 76 06/22/21 08:00 Resp 22 H 06/22/21 08:00 BP 156/82 06/22/21 08:00 Pulse Ox 98 06/22/21 08:00 Discharge Plan Discharge Patient Disposition: Home Condition: Stable Prescriptions: New atorvastatin 40 mg Tablet 40 mg PO BEDTIME 90 Days Qty: 90 RF: 2 clopidogrel 75 mg Tablet 75 mg PO DAILY 90 Days Qty: 90 RF: 2 nitroglycerin 0.4 mg Tablet, Sublingual 0.4 mg sublingual Q5M PRN (Reason: Chest Pain) 30 Days Qty: 30 RF: 2 Children's Aspirin 81 mg Tablet,Chewable 81 mg PO DAILY 90 Days Qty: 90 RF: 2 furosemide 80 mg tablet 80 mg PO DAILY@0800 30 Days Qty: 30 RF: 2 losartan 100 mg tablet 100 mg PO DAILY 30 Days RF: 2 spironolactone 50 mg tablet 50 mg PO DAILY 30 Days RF: 2 Continued (DME) Stump Inlayer Silver See Rx Instructions .Route .MEDSUPPLY Qty: 1 RF: 0 promethazine-DM 6.25-15 mg/5 mL syrup 5 ml PO Q6H PRN (Reason: cough) Qty: 160 RF: 0 promethazine 25 mg tablet 25 mg PO Q6H PRN (Reason: Nausea And Vomiting) RF: 0 Synthroid 150 mcg tablet 150 mcg PO QAM RF: 0 ProAir HFA 90 mcg/actuation Hfa Aerosol Inhaler 2 puff INHALATION Q4H PRN (Reason: Shortness Of Breath) RF: 0 Cardura 2 mg tablet 4 mg PO BID RF: 0 RenaPlex-D 800 mcg-12.5 mg -2,000 unit tablet 1 tab PO DAILY RF: 0 Colace 100 mg capsule 100 mg PO BID PRN (Reason: Constipation) RF: 0 carvedilol [Coreg] 25 mg Tablet 25 mg PO BID RF: 0 hydrocodone-acetaminophen 5-325 mg tablet 1 tab PO Q6H PRN (Reason: pain) Qty: 20 RF: 0 ondansetron HCl [Zofran] 4 mg tablet 4 mg PO Q6H PRN (Reason: nausea and vomiting) Qty: 20 RF: 0 Discharge Orders: Discharge Order (Routine); Ordered 06/22/21 Ordered By: Ramone Hooks Referrals: Marli Fatima FNP [Nurse Practitioner] - 4-7 days (Monday or , per patient request) Allison Gamble MD [Physician] - 1 month Karen Bear MD [Primary Care Provider] - Discharge Diet: Cardiac Discharge Activity: Increase activity as tolerated and Use walker/crutches as instructed Patient Instructions: Left Heart Catheterization (DC), Heart Healthy Diet (DC), Opioid Safety Activity Restrictions/Additional Instructions: * Do not lift anything more than 5 lbs for 1 week. Keep the site dry and clean * Take medications as prescribed and follow up as scheduled. Discharge Attestations Time Spent in Discharge Care*: less than 30 min Status at Discharge: Cognitive status at discharge: cognitively intact , Behavioral status at discharge: cooperative , Quality Metrics Clinical Quality Measures During this hospital stay, did patient experience: AMI Clinical Trial Participant: No Contraindication to aspirin (AMI): Aspirin given Con traindication to statin: Statin prescribed Contraindication to PCI: PCI performed Contraindication to Fibrinolytics: Medical contraindication Coding Level of Care Code Acute [facility] note Diagnoses Heart failure with reduced ejection fraction I50.20 CAD (coronary artery disease) I25.10 Coronary Disease-Associated Artery/Lesion type: koi artery [place] vs. transplanted heart: koi heart Associated angina: without angina Large pleural effusion J90 Hypertension I10 Hypertension type: essential hypertension ESRD (end stage renal disease) N18.6 Diabetes E11.9
[2021-06-22 12:00] VITALS: BP 187/82; PULSE 78; RESP 22; O2SAT 96
[2021-06-22 12:45] VITALS: BP 171/82; PULSE 74; RESP 24; TEMP 36.6; O2SAT 98
[2021-06-22 12:53] VITALS: BP 171/82; PULSE 74; RESP 24; TEMP 36.6; O2SAT 98
--- NOTE | 2021-06-22 13:28 | PC.NURSE ---
Discharge Note Patient discharged to [home] via [wheelchair] accompanied by [spouse]. Discharge instructions reviewed with patient and/or jewelry sales representative. Mobile pharmacy medications and/or prescriptions provided. Belongings/home medications returned.
--- NOTE | 2021-06-28 09:07 | PC.SOCIAL ---
Follow up discharge call made, no answer. Message left.
--- NOTE | 2021-06-28 09:30 | PC.SOCIAL ---
hospital follow up call made. patient states she is feeling great, everyone at the hospital was wondering. she filled all of her new medications and has made her follow up appointments.
== END 2021-06-22 13:20 | disposition home or self-care (01) | DRG 246 ==
LOC: ER 15:40 → CSU 16:42
PROVIDERS: Internal Medicine; Internal Medicine Cardiovascular Disease; Internal Medicine Critical Care Medicine; Internal Medicine Nephrology; Admitting Provider Internal Medicine; Emergency Provider Emergency Medicine; PCP Family Medicine; Visit Provider Internal Medicine
PROC: 4A023N7 Measurement of Cardiac Sampling and Pressure, Left Heart, Percutaneous Approach (ICD-10-PCS; principal; 2021-06-17 10:00)
DX: I13.2 Hypertensive heart and chronic kidney disease with heart failure and with stage 5 chronic kidney disease, or end stage renal disease (principal); I50.31 Acute diastolic (congestive) heart failure; N18.6 End stage renal disease; E87.1 Hypo-osmolality and hyponatremia; D69.6 Thrombocytopenia, unspecified; E11.22 Type 2 diabetes mellitus with diabetic chronic kidney disease; I25.10 Atherosclerotic heart disease of native coronary artery without angina pectoris; E11.40 Type 2 diabetes mellitus with diabetic neuropathy, unspecified; E03.9 Hypothyroidism, unspecified; Z99.2 Dependence on renal dialysis; J44.9 Chronic obstructive pulmonary disease, unspecified; E78.5 Hyperlipidemia, unspecified; R59.0 Localized enlarged lymph nodes; D63.1 Anemia in chronic kidney disease; E11.621 Type 2 diabetes mellitus with foot ulcer; D72.829 Elevated white blood cell count, unspecified; R06.89 Other abnormalities of breathing; R74.8 Abnormal levels of other serum enzymes; I16.0 Hypertensive urgency; Z20.822 Contact with and (suspected) exposure to COVID-19; Z79.4 Long term (current) use of insulin; Z72.89 Other problems related to lifestyle; Z79.82 Long term (current) use of aspirin; Z78.9 Other specified health status; Z89.512 Acquired absence of left leg below knee; Z80.3 Family history of malignant neoplasm of breast; Z80.49 Family history of malignant neoplasm of other genital organs; Z79.890 Hormone replacement therapy
CPT/HCPCS: 32555; 36415; 36600; 71045; 71250; 80048; 80053; 80061; 80500; 82306; 82310; 82728; 82805; 82945; 83036; 83540; 83550; 83615; 83721; 83735; 83880; 83970; 83986; 84100; 84157; 84478; 85025; 85347; 85378; 85610; 87015; 87040; 87070; 87075; 87116; 87205; 87206; 87426; 87801; 88112; 88305; 89050; 90935; 93005; 93306; 93452; 93971; 94640; 96372; 96374; 96375; 99285; C1724; C1725; C1760; C1769; C1874; C1887; C1894; C9602; G0378; J0360; J1644; J1940; J2250; J2405; J3010; J3490; J7030; J7512; J7611; Q0163; Q3014; Q9967

== ENCOUNTER 2021-07-01 08:46 | Outpatient (CLI) | payer MEDICARE, MEDICAID, SELFPAY | END 2021-07-01 08:47 | disposition home or self-care (01) | LOC: WOUND 08:47 | PROVIDERS: PCP Family Medicine; Visit Provider Nurse Practitioner Family | DX: L89.613 Pressure ulcer of right heel, stage 3 (principal); T81.31XA Disruption of external operation (surgical) wound, not elsewhere classified, initial encounter; Y83.8 Other surgical procedures as the cause of abnormal reaction of the patient, or of later complication, without mention of misadventure at the time of the procedure; Z89.512 Acquired absence of left leg below knee | CPT/HCPCS: 11042 ==

== ENCOUNTER 2021-07-20 09:58 | Emergency (ER) | payer MEDICARE, MEDICAID, SELFPAY ==
[2021-07-20 11:40] VITALS: BP 188/86; PULSE 66; RESP 18; TEMP 36.8; O2SAT 95; BMI 33.2
--- NOTE | 2021-07-20 12:03 | XRR_ITS ---
PROCEDURE INFORMATION: Exam: XR Chest Exam date and time: 07/20/2021 12:03 PM Age: 60 years old Clinical indication: Device placement; Other: Dialysis cath fell out; Prior surgery; Surgery type: Dialysis cath, heart stents; Patient HX: Dialysis catheter came out while brushing her teeth this morning. This was last used 07/16/21. Had 3 heart stents placed early June and drained fluid off left lung. ; Additional info: Possible fractured dialysis cath. , Pa/lat per elizabeth TECHNIQUE: Imaging protocol: XR of the chest. Views: 2 views. Total images: 2 COMPARISON: CR (CHEST, ) 06/20/2021 4:22 PM FINDINGS: Lungs: Nonspecific left lung base opacity favors atelectasis or pneumonia. Pleural spaces: There is a moderate left pleural effusion. Heart/Mediastinum: Heart size is stable when compared to the prior exam. Bones/joints: Osseous structures are unchanged from the prior exam. XR/XR chest 2V* [id number] IMPRESSION: 1. Nonspecific left lung base opacity favors atelectasis or pneumonia. 2. There is a moderate left pleural effusion.
--- NOTE | 2021-07-20 19:05 | ED_ITS ---
HPI - General Adult General: Chief complaint: General Medical Stated complaint: dr thapa sent over Time Seen by Provider: 07/20/21 18:46 Source: patient Mode of arrival: ambulatory Limitations: no limitations History of Present Illness: HPI narrative: 60-year-old female states that she was brushing teeth this morning and her dialysis catheter developed. She had this dialysis catheter placed in May as a tunneling catheter in the right IJ. She states she called the Dr. Jorgensen's office who told her,.. She denies any shortness of breath denies any bleeding from the site. Associated symptoms: Deny chest pain, dyspnea, headache(s), nausea, rash or vomiting Review of Systems Const: Denies: fever(s), chills, body aches or change in appetite Eyes: Denies: blurry vision or eye discomfort ENMT: Denies: throat pain or dental pain Card: Denies: chest pain Resp: Denies: dyspnea GI: Denies: abdominal pain, nausea, vomiting or diarrhea : Denies: dysuria Musc: Denies: neck pain or back pain Skin/Breast: Denies: rash Neuro: Denies: headache(s) Psych: Denies: depression Jimmy/Lymph: Denies: easy bruising All/Imm: Denies: urticaria PFSH ED PFSH: Medical History Acute bronchitis Anemia Aortic valve endocarditis Bacteremia due to Staphylococcus EKG done this morning revealed normal sinus rhythm with a left axis deviation. Voltage area for LVH. No significant ST-T changes. 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 Neuropathy Protein-energy malnutrition Septic arthritis of left ankle Surgical History Central vascular catheter in place upon arrival History of cholecystectomy History of colonoscopy with polypectomy 2017 History of left below knee amputation History of lumbar surgery Due to epidural abscess in March 2018 Peritoneal dialysis catheter in place removal 05/20/21 S/P hemodialysis catheter insertion Status post below-knee amputation of left lower extremity Family History Mother Cancer Uterine and breast cancer Father Diabetes Other CAD (coronary artery disease) Social History Alcohol intake: current Alcohol intake frequency: holidays/special occasions only Female Reproductive History: Date of last menstrual period: 05/28/14 Physical Exam Const: COMMON NORMALS: no acute distress, patient oriented x3 and healthy appearing HENMT: COMMON NORMALS: normocephalic and atraumatic HEAD & SCALP: normocephalic and atraumatic Eye: COMMON NORMALS: Equal, round and reactive pupils present and EOMs intact bilaterally PUPIL: Yes Equal, round and reactive pupils present Neck/C-Spine: COMMON NORMALS: full ROM and supple Chest: COMMONS NORMALS: normal inspection of the chest and normal palpation of entire chest wall OTHER: Catheter on the right side has fallen out she has no bleeding at the site. Resp: COMMON NORMALS: normal respiratory effort, No retractions, No use of accessory muscles and clear to auscultation bilaterally AUSCULTATION: clear to auscultation bilaterally Cardio: COMMON NORMALS: regular rate, regular rhythm and No murmurs present (Cardio) RATE: regular rate RHYTHM: regular rhythm GI: COMMON NORMALS: Normal to inspection, nondistended, normoactive bowel sounds present, Soft to palpation, non-tender and no masses PALPATION: Yes Soft to palpation Extremity: COMMON NORMALS: normal to inspection and full ROM Neuro: COMMON NORMALS: patient oriented x3, moves all extremities and no focal motor deficits Psych: COMMON NORMALS: mental status grossly normal, Normal thought process present and cooperative THOUGHT PROCESS: Normal thought process present Skin: COMMON NORMALS: no rashes or lesions noted and no wounds GENERAL SKIN EXAM: no rashes or lesions noted Course Vital Signs: Vital signs: Vital Signs Temperature 98.2 F 07/20/21 11:40 Pulse Rate 66 07/20/21 11:40 Respiratory Rate 18 09/07/21 11:40 Blood Pressure 188/86 07/20/21 11:40 Pulse Oximetry 95 07/20/21 11:40 MDM - General Adult MDM Narrative: Medical decision making narrative: Patient presents here after having her dialysis catheter falling out. I spoke to Dr. Castro he is going to try to place it tomorrow Outpatient Surgery while case management set this up. Patient stable for discharge. Discharge Plan Discharge Patient Disposition: Home Clinical Impression: Dialysis catheter clot or failure Condition: Stable Prescriptions: No Action nystatin 100,000 unit/gram cream 1 applic topical BID Qty: 30 RF: 0 (DME) Stump Habitat Conservation Planner See Rx Instructions .Route .MEDSUPPLY Qty: 1 RF: 0 promethazine-DM 6.25-15 mg/5 mL syrup 5 ml PO Q6H PRN (Reason: cough) Qty: 160 RF: 0 Synthroid 150 mcg tablet See Rx Instructions .ROUTE .COMPLEX Qty: 90 RF: 0 promethazine 25 mg tablet 25 mg PO Q6H PRN (Reason: Nausea And Vomiting) RF: 0 ProAir HFA 90 mcg/actuation Hfa Aerosol Inhaler 2 puff INHALATION Q4H PRN (Reason: Shortness Of Breath) RF: 0 Cardura 2 mg tablet 4 mg PO BID RF: 0 RenaPlex-D 800 mcg-12.5 mg -2,000 unit tablet 1 tab PO DAILY RF: 0 Colace 100 mg capsule 100 mg PO BID PRN (Reason: Constipation) RF: 0 atorvastatin 40 mg Tablet 40 mg PO BEDTIME 90 Days Qty: 90 RF: 2 clopidogrel 75 mg Tablet 75 mg PO DAILY 90 Days Qty: 90 RF: 2 nitroglycerin 0.4 mg Tablet, Sublingual 0.4 mg sublingual Q5M PRN (Reason: Chest Pain) 30 Days Qty: 30 RF: 2 Children's Aspirin 81 mg Tablet,Chewable 81 mg PO DAILY 90 Days Qty: 90 RF: 2 furosemide 80 mg tablet 80 mg PO DAILY@0800 30 Days Qty: 30 RF: 2 losartan 100 mg tablet 100 mg PO DAILY 30 Days RF: 2 spironolactone 50 mg tablet 50 mg PO DAILY 30 Days RF: 2 carvedilol [Coreg] 25 mg Tablet 25 mg PO BID RF: 0 hydrocodone-acetaminophen 5-325 mg tablet 1 tab PO Q6H PRN (Reason: pain) Qty: 20 RF: 0 ondansetron HCl [Zofran] 4 mg tablet 4 mg PO Q6H PRN (Reason: nausea and vomiting) Qty: 20 RF: 0 Discharge Orders: Discharge ED (Routine); Ordered 07/20/21 Ordered By: Telma Darnell Referrals: Jose De Jesus Castro MD [Physician] - 1-3 days Karen Bear MD [Primary Care Provider] - Discharge Diet: Advance as tolerated Discharge Activity: Resume usual activity Patient Instructions: Tunneled Central Lines Child (ED), Opioid Safety Coding Level of Care Code ED Wool Shearer for Gregorio Thompson
[2021-07-20 19:26] VITALS: BP 198/80; PULSE 65; RESP 18; O2SAT 97
--- NOTE | 2021-07-21 08:44 | DCPLANNER ---
crisis manager had message to schedule an outpatient port placement. crisis manager called out patient surgery, spoke with Medina, gave her patients information. crisis manager was told that Medina would take care of getting patient scheduled.
== END 2021-07-20 19:28 | disposition home or self-care (01) ==
PROVIDERS: Emergency Provider Emergency Medicine; PCP Family Medicine
DX: T82.898A Other specified complication of vascular prosthetic devices, implants and grafts, initial encounter (principal); Z79.02 Long term (current) use of antithrombotics/antiplatelets; I25.10 Atherosclerotic heart disease of native coronary artery without angina pectoris; E11.40 Type 2 diabetes mellitus with diabetic neuropathy, unspecified; E11.22 Type 2 diabetes mellitus with diabetic chronic kidney disease; I13.2 Hypertensive heart and chronic kidney disease with heart failure and with stage 5 chronic kidney disease, or end stage renal disease; I50.9 Heart failure, unspecified; N18.6 End stage renal disease; E78.5 Hyperlipidemia, unspecified; Z89.512 Acquired absence of left leg below knee
CPT/HCPCS: 71046; 99282

== ENCOUNTER 2021-07-21 13:09 | Day surgery (SDC) | payer MEDICARE, MEDICAID, SELFPAY ==
--- NOTE | 2021-07-21 | SCC_ITS ---
Procedure Done: Placement of 16 Fr. 28 cm HemoSplit long-term dialysis catheter into the right internal jugular vein 2.5 seconds of fluoroscopic guidance, for a cumulative dose of 0.46 mGy, was provided to Dr. Castro by the radiology department. C-arm images of the chest were saved for the patient's permanent record. [facility]
--- NOTE | 2021-07-21 14:13 | ANES.PREANE2 ---
Pre-Anesthetic Assessment Pre-Anesthetic Assessment: Height/Weight: Height 1.68 m Preop Diagnosis: New onset heart failure with reduced ejection fraction Proposed Procedure: Operation Date: 07/21/21 16:40 Proposed Procedures p Dialysis Catheter Insertion(Not Applicable) - Jose De Jesus Castro MD Familial anesthetic complications: none Was Beta Cristo taken within 24 hours: Yes Was Clonidine taken within 24 hours: N/A Last intake: > 8 hrs Social: Social History: No alcohol and No tobacco Exam: Pre-Anes Outpt Exam: alert, oriented x 3, clear to auscultation bilaterally and regular rate & rhythm Airway: MP: 2 Dentition: Full CV/HEM: CV/HEM: CAD (stent 07/03) Comments: CONCLUSIONS 1. Normal left ventricular size, systolic function with no regional wall motion abnormalities. Left ventricular ejection fraction is estimated at 65 %. 2. Thickened trileaflet aortic valve. Thickening is more pronounced in noncoronary and left cusps. Trace aortic valve regurgitation. No evidence of vegetation on aortic valve. 3. The possible vegetation noted on aortic valve on previous study from 04/17/2020 seems to be just thickening of the cusps rather than true vesgetation. 4. No evidence of infective endocarditis. Findings of the study were discussed with the primary team : : Chronic renal failure Metabolic: Metabolic: DM and Thyroid Anesthetic Plan: ASA status: 4 Anesthesia: MAC Risk of > 500 ml blood loss (7ml/kg in children): No PFSH Anesthesia PFSH: Medical History Acute bronchitis Anemia Aortic valve endocarditis Bacteremia due to Staphylococcus EKG done this morning revealed normal sinus rhythm with a left axis deviation. Voltage area for LVH. No significant ST-T changes. 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 Neuropathy Protein-energy malnutrition Septic arthritis of left ankle Surgical History Central vascular catheter in place upon arrival History of cholecystectomy History of colonoscopy with polypectomy 2017 History of left below knee amputation History of lumbar surgery Due to epidural abscess in March 2018 Peritoneal dialysis catheter in place removal 05/20/21 S/P hemodialysis catheter insertion Status post below-knee amputation of left lower extremity Family History Mother Cancer Uterine and breast cancer Father Diabetes Other CAD (coronary artery disease) Social History Alcohol intake: current Alcohol intake frequency: holidays/special occasions only Female Reproductive History: Date of last menstrual period: 05/28/14 Data Anesthesia Cardiac Studies: Echocardiogram 06/15/21
[2021-07-21 14:28] VITALS: BP 173/86; PULSE 67; RESP 18; TEMP 36.9; O2SAT 97; BMI 33.2
[2021-07-21 14:31] LABS: Glucose Point of Care 81 mg/dL (70-110)
[2021-07-21] MEDS: sodium chloride 0.9% 1,000 ML 30 ML IV (14:35)
[2021-07-21] MEDS: scopolamine 1.5 Patch 1 PATCH TRANSDERMA (14:36)
--- NOTE | 2021-07-21 15:15 | P.HP_ITS ---
Providers/Chief Complaint Admitting Physician: General Surgery Jose De Jesus Castro MD Primary Care Provider: Karen Bear MD Chief Complaint: Hemodialysis catheter fell out History of Present Illness Alesia Shaw is a 60 year old female who is currently on hemodialysis 3 times a week. She says her last hemodialysis catheter was placed 6 or 7 months ago. She woke up yesterday and was brushing her teeth and realized the catheter was falling out. She is not sure if it was partially pulled out during her sleep, etc. She contacted Dr. Medina's office and was told to go to the emergency room. She says she waited for 9 hours in the emergency room before finding out that the hospital did not have any beds and arrangements were made for her to come back today for replacement of the dialysis catheter. Review of Systems General: Reports: 10 or more systems reviewed and unremarkable except in HPI and below Medications/Allergies Home Medications Medication Instructions Recorded Confirmed Last Taken Type Stump Sports Clerk #1 ea 01/12/21 07/21/21 07/20/21 Rx carvedilol [Coreg] 25 mg PO BID 05/19/21 07/21/21 07/21/21 History hydrocodone-acetaminophen 1 tab PO Q6H PRN #20 tab 05/20/21 07/21/21 07/20/21 Rx ondansetron HCl [Zofran] 4 mg PO Q6H PRN #20 tab 05/20/21 07/21/21 07/20/21 Rx promethazine-DM 6.25 mg-15 mg/5 mL 5 ml PO Q6H PRN #160 ml 06/07/21 07/21/21 07/20/21 Rx oral syrup RenaPlex-D 1 tab PO DAILY 06/13/21 07/21/21 07/20/21 History albuterol sulfate [ProAir HFA] 2 puff INHALATION Q4H PRN 06/13/21 07/21/21 07/20/21 History docusate sodium [Colace] 100 mg PO BID PRN 06/13/21 07/21/21 07/20/21 History doxazosin [Cardura] 4 mg PO BID 06/13/21 07/21/21 07/21/21 History promethazine 25 mg PO Q6H PRN 06/13/21 07/21/21 07/20/21 History aspirin [Children's Aspirin] 81 mg PO DAILY 90 Days #90 tab 06/22/21 07/21/21 07/20/21 Rx atorvastatin 40 mg PO BEDTIME 90 Days #90 tab 06/22/21 07/21/21 07/20/21 Rx clopidogrel 75 mg PO DAILY 90 Days #90 tab 06/22/21 07/21/21 07/20/21 Rx furosemide 80 mg PO DAILY@0800 30 Days #30 tab 06/22/21 07/21/21 07/20/21 Rx losartan 100 mg PO DAILY 30 Days tab 06/22/21 07/21/21 07/21/21 Rx nitroglycerin 0.4 mg SUBLINGUAL Q5M PRN 30 Days 06/22/21 07/21/21 07/20/21 Rx #30 tab spironolactone 50 mg PO DAILY 30 Days tab 06/22/21 07/21/21 07/20/21 Rx nystatin 100,000 unit/gram topical 1 applic TOPICAL BID #30 g 06/29/21 07/21/21 07/20/21 Rx cream levothyroxine [Synthroid] 150 mcg PO DAILY 07/21/21 07/21/21 07/20/21 History Allergies Allergy/AdvReac Type Severity Reaction Status Date / Time Iodinated Contrast Media Allergy ALGY-Hives Verified 07/21/21 14:13 PFSH Acute PFSH: Medical History Acute bronchitis Anemia Aortic valve endocarditis Bacteremia due to Staphylococcus EKG done this morning revealed normal sinus rhythm with a left axis deviation. Voltage area for LVH. No significant ST-T changes. 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 Neuropathy Protein-energy malnutrition Septic arthritis of left ankle Surgical History Central vascular catheter in place upon arrival History of cholecystectomy History of colonoscopy with polypectomy 2017 History of left below knee amputation History of lumbar surgery Due to epidural abscess in March 2018 Peritoneal dialysis catheter in place removal 05/20/21 S/P hemodialysis catheter insertion Status post below-knee amputation of left lower extremity Family History Mother Cancer Uterine and breast cancer Father Diabetes Other CAD (coronary artery disease) Social History Alcohol intake: current Alcohol intake frequency: holidays/special occasions only Female Reproductive History: Date of last menstrual period: 05/28/14 Vitals/I&O/Wt Last Vital Signs Temp 98.4 F 07/21/21 14:28 Pulse 67 07/21/21 14:28 Resp 18 07/21/21 14:28 BP 173/86 07/21/21 14:28 Pulse Ox 97 07/21/21 14:28 Weight last 48 hrs Weight 206 lb Physical Exam Narrative: EXAM NARRATIVE: The patient was encountered in her room in Outpatient Surgery. She does not appear to be in any distress. The pupils are equal. No carotid bruits are heard. The lungs reveal diminished air movement on the left side consistent with an effusion. The heart is regular. The abd omen is mildly to moderately obese but is soft and nontender. The patient is status post below the knee amputation on the left side. She has significant edema in the right lower leg. She can move all remaining limbs to command. Data : 07/21/21 11:10 A&P Assessment and plan (1) Chronic kidney disease with end stage renal failure on dialysis: The patient is here to have another dialysis catheter placed. She last took her Plavix and aspirin last night. I told her that these medications effects unfortunately last in the bloodstream for days, making any surgical procedure little bit more risky. She seems to understand. Placement of a hemodialysis catheter was gone over her but she has been through this multiple times before. She is agreeable to proceeding. The patient has been n.p.o. all day. I will make arrangements for a tunneled hemodialysis catheter placement today. Status: Acute Attestations Medical Necessity Statement*: The patient will be left in outpatient status for now. Coding Level of Care Code Acute Community Engagement Leader for Gregorio Thompson Diagnoses Chronic kidney disease with end stage renal failure on dialysis N18.6; Z99.2
[2021-07-21 15:46] LABS: Blood Urea Nitrogen 46 mg/dL (6-20); Calcium 9.2 mg/dL (8.5-10.5); Carbon Dioxide 20 mmol/L (22-29); Chloride 102 mmol/L (98-107); Glomerular Filtration Rate 5.9 mL/min (90-130); Glucose 84 mg/dL (65-115); Osmolality Calculated 299 mOsm/kg (285-295); Sodium 139 mmol/L (136-145)
--- NOTE | 2021-07-21 16:53 | SC_ITS ---
WS: [id number] C-arm fluoroscopy, right dialysis catheter insertion, 07/21/2021 Clinical Data: Placement of HemoSplit long-term dialysis catheter Comparison: None. Findings: A right dialysis catheter has been inserted via the right internal jugular vein. It ends in the super ior vena cava. SC/C-arm FL for CVA [id number] Impression: Dialysis catheter insertion.
[2021-07-21] MEDS: heparin, porcine 1,000 unit/mL INJ 10 mL 10000 UNIT XX (17:26)
--- NOTE | 2021-07-21 17:36 | P.OP_ITS ---
Operative Report Date of procedure: July 21, 2021 Pre-op Diagnosis: Chronic renal failure requiring dialysis. Post-op diagnosis: same Procedure Done: Placement of 16 Fr. 28 cm HemoSplit long-term dialysis catheter into the right internal jugular vein using intraoperative ultrasound guidance and intraoperative fluoroscopy. Implants: As above. Pathology: none sent Surgeon: Jose De Jesus Castro Anesthesia: MAC Estimated blood loss (mL): 10 Complications: None. Condition: stable Disposition: PACU Procedure: The patient was brought to the operating room and was placed in a supine position on the operating room table. A monitored anesthetic was induced. The right side of the neck and chest were prepped and draped in a sterile fashion. Intraoperative ultrasound was used to find the right internal jugular vein as evidenced by its size and compressibility. 1% lidocaine was used for local anesthetic on the neck and the right internal jugular vein was accessed with a needle and syringe on the first pass as evidenced by the return of dark nonpulsatile blood. The guidewire was easily passed down the needle and the needle was removed. The C-arm was positioned and showed the guidewire extending down the vena cava. A 16 Nepali 21 cm HemoSplit long-term dialysis catheter was then placed on the right side of the chest and measured so that the subcutaneous cuff would be an appropriate location in the subcutaneous tunnel. A combination of 1% lidocaine and 0.5% bupivacaine with 1-200,000 parts epinephrine was used to anesthetize a subcutaneous tract from the right chest wall to the right side of the neck over the top of the clavicle. A small incision was made on the chest wall at the proposed exit point and a small incision was also made adjacent to the guidewire on the right side of the neck. The HemoSplit catheter was then tunneled from the small incision on the chest to the small incision on the right side of the neck using the passer provided in the kit. Small to medium sized dilators were then placed over the guidewire to dilate the skin opening and the subcutaneous tissue. The introducer and sheath were then passed over the guidewire easily into the right internal jugular vein. The guidewire and introducer were removed and the arms of the HemoSplit dialysis catheter were easily passed down the sheath which was then torn away. The C-arm was once again positioned and showed good placement of the dialysis catheter tip in the vena cava. Both ports were aspirated and flushed with hep flush solution. Both ports showed excellent flow and were then left filled with concentrated hep flush solution. The catheter was sewn in place at the skin on the chest with some sutures of 2-0 Prolene. The small incision on the right side of the neck was closed using some interrupted inverted sutures of 4-0 Vicryl. The incision on the neck was covered with some Dermabond. A sterile dressing was placed over the HemoSplit e xit site on the chest. The patient was taken back to the recovery area postoperatively in stable condition. INTRAOPERATIVE FLUOROSCOPY FINDINGS: Intraoperative fluoroscopic images of a hemodialysis catheter placement were reviewed. An initial image reveals a guidewire entering the right internal jugular vein and extending down the vena cava. Subsequent images reveal a dialysis catheter on that side of the chest with its tubing tip in good location in the superior vena cava. No obvious pneumothorax is identified.
[2021-07-21 17:40] VITALS: BP 168/76; PULSE 67; RESP 16; TEMP 36.6; O2SAT 92
[2021-07-21 17:45] VITALS: BP 166/78; PULSE 68; RESP 17; O2SAT 90
[2021-07-21 17:50] VITALS: BP 166/82; PULSE 69; RESP 16; TEMP 36.6; O2SAT 91
[2021-07-21 18:00] VITALS: BP 179/84; PULSE 68; RESP 18; O2SAT 91
[2021-07-21] MEDS: ondansetron 2 mg/ML SDV 2 mL 4 MG IVP (18:24)
[2021-07-21 18:32] VITALS: BP 179/86; PULSE 65; RESP 18; O2SAT 90
[2021-07-21 18:36] LABS: Anion Gap 23.5 (5-19)
[2021-07-21 18:37] LABS: Potassium 6.5 mmol/L (3.5-5.1)
== END 2021-07-21 18:45 | disposition home or self-care (01) ==
PROVIDERS: Anesthesiology; PCP Family Medicine; Visit Provider Surgery
PROC: (CPT 36561; principal; 2021-07-21 16:40)
DX: Z49.01 Encounter for fitting and adjustment of extracorporeal dialysis catheter (principal); N18.6 End stage renal disease; Z99.2 Dependence on renal dialysis; I25.10 Atherosclerotic heart disease of native coronary artery without angina pectoris; Z86.14 Personal history of Methicillin resistant Staphylococcus aureus infection; E03.9 Hypothyroidism, unspecified; E78.5 Hyperlipidemia, unspecified; I10 Essential (primary) hypertension; E11.42 Type 2 diabetes mellitus with diabetic polyneuropathy; Z95.5 Presence of coronary angioplasty implant and graft
CPT/HCPCS: 36561; 36416; 76000; 77001; 80048; 82962; C1750; J0690; J1644; J2405; J2704; J3010; J3490; J7030

== ENCOUNTER 2021-07-29 08:51 | Outpatient (CLI) | payer MEDICARE, MEDICAID, SELFPAY | END 2021-07-29 08:52 | disposition home or self-care (01) | LOC: WOUND 08:55 | PROVIDERS: PCP Family Medicine; Visit Provider Emergency Medicine | DX: L89.613 Pressure ulcer of right heel, stage 3 (principal); T81.31XA Disruption of external operation (surgical) wound, not elsewhere classified, initial encounter; Y83.8 Other surgical procedures as the cause of abnormal reaction of the patient, or of later complication, without mention of misadventure at the time of the procedure; E11.9 Type 2 diabetes mellitus without complications | CPT/HCPCS: 11042; 11045 ==

== ENCOUNTER 2021-08-12 08:57 | Outpatient (CLI) | payer MEDICARE, MEDICAID, SELFPAY | END 2021-08-12 08:58 | disposition home or self-care (01) | LOC: WOUND 08:58 | PROVIDERS: PCP Family Medicine; Visit Provider Emergency Medicine | DX: I96 Gangrene, not elsewhere classified (principal); L89.613 Pressure ulcer of right heel, stage 3 | CPT/HCPCS: G0463 ==

== ENCOUNTER 2021-08-13 10:32 | Outpatient (CLI) | payer MEDICARE, MEDICAID, SELFPAY ==
--- NOTE | 2021-08-13 10:52 | XR_ITS ---
WS: [id number] CHEST 2 VIEWS HISTORY: I50.32 - Chronic diastolic (congestive) heart failure COMPARISON: 07/20/2021 Lungs: Moderate elevation of the LEFT hemidiaphragm with a moderate-sized effusion. Similar to the pr ior study. There is very slight vascular congestion. RIGHT lung is clear with no pneumonia. Cardiac size: Cardiac silhouette is obscured by the LEFT effusion. Mediastinum/Aorta: Mild atherosclerosis aorta. Bones: Bilateral AC joint arthritis. Double lumen dialysis catheter with tips in the distal SVC. XR/XR chest 2V* [id number] IMPRESSION: 1. Moderate LEFT pleural effusion is unchanged since the prior exam. 2. Very minimal pulmonary congestion.
== END 2021-08-13 10:33 | disposition home or self-care (01) ==
LOC: RAD 10:39
PROVIDERS: PCP Family Medicine; Visit Provider Internal Medicine Cardiovascular Disease
DX: I50.32 Chronic diastolic (congestive) heart failure (principal); J90 Pleural effusion, not elsewhere classified
CPT/HCPCS: 71046

== ENCOUNTER → 2021-08-17 09:37 | Outpatient (BNVA) | payer MEDICARE, MEDICAID, SELFPAY | PROVIDERS: PCP Family Medicine; Visit Provider Internal Medicine Cardiovascular Disease | DX: J90 Pleural effusion, not elsewhere classified (principal); I50.32 Chronic diastolic (congestive) heart failure; I25.10 Atherosclerotic heart disease of native coronary artery without angina pectoris | CPT/HCPCS: 80053; 83735; 83880 ==

== ENCOUNTER 2021-08-19 08:02 | Outpatient (CLI) | payer MEDICARE, MEDICAID, SELFPAY ==
--- NOTE | 2021-08-19 08:00 | MR_ITS ---
WS: [id number] MRI HEAD WITHOUT CONTRAST TECHNIQUE: Sagittal T1, T2 axial, T2 axial FLAIR, axial and coronal T1 images, axial susceptibility w eighted imaging, axial diffusion weighted images, and coronal T2 images were obtained. CLINICAL INFORMATION: MASS BASE OF SKULL COMPARISON: CT 11 018 FINDINGS: No evidence of restricted diffusion to suggest acute ischemia. Ventricular system and basal cisterns are patent. Mild small vessel changes. Mild parenchymal volume loss. No hemosiderin on susceptibly we ighted images. Normal posterior fossa. Normal vascular flow voids at the skull base. No extra-axial fluid collection s. No evidence of mass or mass effect. Paranasal sinuses are well aerated. Mastoid air cells are well aerated. No evidence of skull base mass. Contrast was not administered due to contrast allergy. Normal optic chiasm and pituitary infundibulum. Mild symmetric atrophy temporal lobes and hippocampal formations. No other significant findings. MR/MR head wo con* [id number] IMPRESSION: 1. No evidence of restricted diffusion to suggest acute ischemia. 2. Mild small vessel changes with mild parenchymal volume loss. 3. Paranasal sinuses and mastoid air cells are well aerated. 4. No definite visualized skull base mass. Contrast was not administered due t o history of reported contrast allergy. 5. No hemosiderin on susceptibly weighted images. 6. No other significant findings.
== END 2021-08-19 08:03 | disposition home or self-care (01) ==
LOC: RADSHAW 08:05
PROVIDERS: PCP Family Medicine; Visit Provider Internal Medicine Nephrology
DX: R22.0 Localized swelling, mass and lump, head (principal)
CPT/HCPCS: 70551

== ENCOUNTER 2021-08-26 08:32 | Outpatient (CLI) | payer MEDICARE, MEDICAID, SELFPAY | END 2021-08-26 08:33 | disposition home or self-care (01) | LOC: WOUND 08:33 | PROVIDERS: PCP Family Medicine; Visit Provider Emergency Medicine | DX: L89.613 Pressure ulcer of right heel, stage 3 (principal) | CPT/HCPCS: G0463 ==

== ENCOUNTER 2021-08-31 11:03 | Outpatient (CLI) | payer MEDICARE, MEDICAID, SELFPAY ==
--- NOTE | 2021-08-31 11:12 | XR_ITS ---
WS: [id number] RIGHT FOOT: 3 VIEW(S) TECHNIQUE: AP, oblique and lateral. HISTORY: TYPE 2 DIABETES MELLANTIS WITH FOOT ULCER, RIGHT HEEL STAGE3 COMPARISON: 12/24/2020 Severe osteopenia and severe peripheral arterial disease. Widening of the intertarsal joint spaces. Loss of the normal cortex of the ankle, calcaneus and talus . Chronic appearing dislocation at the ankle joint was also seen on the prior examination. No acute f ractures. Significant changes of Charcot joint. XR/XR foot RT min 3V* [id number] IMPRESSION: 1. Progression of the known Charcot joint. 2. Osteopenia with severe peripheral arterial calcifications. 3. Intertarsal joint space widening with loss of the normal cortex of the bone and subluxations at the tibiotalar joint.
== END 2021-08-31 11:04 | disposition home or self-care (01) ==
PROVIDERS: PCP Family Medicine; Visit Provider Emergency Medicine
DX: E11.621 Type 2 diabetes mellitus with foot ulcer (principal); L97.419 Non-pressure chronic ulcer of right heel and midfoot with unspecified severity; E11.610 Type 2 diabetes mellitus with diabetic neuropathic arthropathy; M85.871 Other specified disorders of bone density and structure, right ankle and foot
CPT/HCPCS: 73630

== ENCOUNTER 2021-09-07 09:20 | Outpatient (CLI) | payer MEDICARE, MEDICAID, SELFPAY | END 2021-09-07 09:21 | disposition home or self-care (01) | LOC: WOUND 09:21 | PROVIDERS: PCP Family Medicine; Visit Provider Thoracic Surgery (Cardiothoracic Vascular Surgery) | DX: L89.613 Pressure ulcer of right heel, stage 3 (principal); E11.9 Type 2 diabetes mellitus without complications | CPT/HCPCS: 99212 ==

== ENCOUNTER 2021-09-14 08:20 | Outpatient (CLI) | payer MEDICARE, MEDICAID, SELFPAY | END 2021-09-14 08:21 | disposition home or self-care (01) | LOC: WOUND 08:21 | PROVIDERS: PCP Family Medicine; Visit Provider Thoracic Surgery (Cardiothoracic Vascular Surgery) | DX: L89.613 Pressure ulcer of right heel, stage 3 (principal); E11.22 Type 2 diabetes mellitus with diabetic chronic kidney disease; I13.0 Hypertensive heart and chronic kidney disease with heart failure and stage 1 through stage 4 chronic kidney disease, or unspecified chronic kidney disease; N18.4 Chronic kidney disease, stage 4 (severe); I50.9 Heart failure, unspecified | CPT/HCPCS: 97597 ==

== ENCOUNTER 2021-09-28 08:20 | Outpatient (CLI) | payer MEDICARE, MEDICAID, SELFPAY | END 2021-09-28 08:21 | disposition home or self-care (01) | LOC: WOUND 08:22 | PROVIDERS: PCP Family Medicine; Visit Provider Emergency Medicine | DX: L89.613 Pressure ulcer of right heel, stage 3 (principal); E11.22 Type 2 diabetes mellitus with diabetic chronic kidney disease; I12.0 Hypertensive chronic kidney disease with stage 5 chronic kidney disease or end stage renal disease; N18.6 End stage renal disease | CPT/HCPCS: 11042; A6252 ==

== ENCOUNTER 2021-09-28 09:36 | Outpatient (CLI) | payer MEDICARE, MEDICAID, SELFPAY ==
--- NOTE | 2021-09-28 10:15 | USCV_ITS ---
Alesia Shaw Age: 61 Gender: F : 1960 Exam Date: 09/28/2021 10:39 Ordering Phys: Marli Fatima Technologist: BJ Exam Location: [facility] [place] Indication: CONGESTIVE HEART FAILURE BP: 150 / 80 HR: 64 Rhythm: Sinus Technical Quality: Very poor MEASUREMENTS (Male / Female) Normal Values 2D ECHO LV Diastolic Diameter PLAX 3.8 cm 4.2 - 5.9 / 3.9 - 5.3 cm LV Systolic Diameter PLAX 3.5 cm IVS Diastolic Thickness 1.7 cm 0.6 - 1.0 / 0.6 - 0.9 cm IVS Systolic Thickness 1.8 cm LVPW Diastolic Thickness 2.1 cm 0.6 - 1.0 / 0.6 - 0.9 cm LVPW Systolic Thickness 2.3 cm LVOT Diameter 3.1 cm LV Ejection Fraction 2D Teich 19.5 % LV Ejection Fraction MOD 2C 20.2 % LV Ejection Fraction 2C AL 21.5 % LA Diameter 2.6 cm Aorta at Sinotubular Diameter 2.5 cm FINDINGS Left Ventricle Right Ventricle Right Atrium Left Atrium Mitral Valve Aortic Valve Tricuspid Valve Pulmonic Valve Pericardium Aorta CONCLUSIONS 1. This is technically very difficult and limited study. 2. Mildly dilated left ventricular cavity size. Moderate concentric left ventricle hypertrophy. Severely decreased left ventricle systolic function. Left ventricular ejection fraction estimated at 25% Global hypokinesis with regional variation (more pronounced in anterior and anteroseptal guardado. 3. When compared to previous echocardiogram 06/15/2021, left ventricle systolic function may have improved somewhat. Allison Gamble MD (Electronically Signed) Final Date: 29 September 2021 12:49 S
== END 2021-09-28 09:37 | disposition home or self-care (01) ==
LOC: RAD 09:39
PROVIDERS: PCP Family Medicine; Visit Provider Nurse Practitioner Family
DX: I50.32 Chronic diastolic (congestive) heart failure (principal)
CPT/HCPCS: 93308

== ENCOUNTER → 2021-10-14 17:07 | Outpatient (BNVA) | payer MEDICARE, MEDICAID, SELFPAY | PROVIDERS: PCP Family Medicine; Visit Provider Family Medicine | DX: E03.9 Hypothyroidism, unspecified (principal); E11.9 Type 2 diabetes mellitus without complications; E78.5 Hyperlipidemia, unspecified; I10 Essential (primary) hypertension; R07.89 Other chest pain | CPT/HCPCS: 80053; 80061; 83036; 84443; 85025 ==

== ENCOUNTER 2021-11-16 11:59 | Outpatient (CLI) | payer MEDICARE, MEDICAID, SELFPAY ==
--- NOTE | 2021-11-16 12:04 | XRR_ITS ---
PROCEDURE INFORMATION: Exam: XR Chest Exam date and time: 11/16/2021 12:04 PM Age: 61 years old Clinical indication: Condition or disease; Lung condition and disease; Pleural effusion; Other: Not specified; Prior surgery; Surgery type: 3 stents; Additional info: J90 - pleural effusion, not elsewhere classified TECHNIQUE: Imaging protocol: XR of the chest. Views: 2 views. COMPARISON: CR XR chest 2V* [id number] 08/13/2021 10:58 AM FINDINGS: Tubes, catheters and devices: Right central line extends into the right atrium. Lungs: There is interstitial congestion in the left hilar region.. No consolidation. Pleural spaces: There is a large left lower lobe pleural effusion. No pneumothorax. Heart/Mediastinum: Unremarkable. No cardiomegaly. Bones/joints: Unremarkable. Other findings: Comparison to prior examination similar findings are seen. XR/XR chest 2V* [id number] IMPRESSION: 1. Stable large left lower lobe pleural effusion the 2. Right central line is in the right atrium
== END 2021-11-16 12:00 | disposition home or self-care (01) ==
PROVIDERS: PCP Family Medicine; Visit Provider Internal Medicine Cardiovascular Disease
DX: J90 Pleural effusion, not elsewhere classified (principal)
CPT/HCPCS: 71046

== ENCOUNTER 2021-11-16 13:57 | Outpatient (CLI) | payer MEDICARE, MEDICAID, SELFPAY | END 2021-11-16 13:58 | disposition home or self-care (01) | LOC: WOUND 13:58 | PROVIDERS: PCP Family Medicine; Visit Provider Nurse Practitioner Family | DX: E11.621 Type 2 diabetes mellitus with foot ulcer (principal); L97.412 Non-pressure chronic ulcer of right heel and midfoot with fat layer exposed | CPT/HCPCS: 11042; 99213 ==

== ENCOUNTER 2021-11-19 13:31 | Day surgery (SDC) | payer MEDICARE, MEDICAID, SELFPAY ==
[2021-11-19 14:00] VITALS: BP 126/66; PULSE 74; RESP 22; TEMP 37; O2SAT 93
[2021-11-19 14:15] VITALS: BMI 33.9
--- NOTE | 2021-11-19 14:43 | XR_ITS ---
WS: [id number] Portable AP upright chest, 11/19/2021 Clinical Data: post thoracentesis Comparison: PA and lateral chest, 11/16/2021. Findings: The left pleural effusion is greatly diminished following a thoracentesis. No pneumothorax is seen. A right dialysis catheter remains in good position. The heart size is slightly enlarged. XR/XR chest 1V portable [id number] Impression: Marked decrease in left pleural effusion following thoracentesis without pneumo thorax.
--- NOTE | 2021-11-19 14:59 | PM.PROC ---
Procedure Note: Date of procedure: 11/19/21 Pre-procedure diagnosis: large left pleural effusion in pt with CHF and ESRD on HD Post-procedure diagnosis: same Procedure: Timeout Performed: Consent for procedure: Obtained from patient and placed in chart Name of the procedure: Left sided thoracentesis under ultrasound guidance Indication: Symptomatic pleural effusion Anesthetics: Local anesthesia with 1% lidocaine. IV pain medication: None. Description of the procedure: The procedure was explained to the patient in detail including the risks and a consent was obtained. The left hemithorax was scanned with ultrasound to find a safe fluid pocket. Large free-flowing fluid was noted. There was no complexity. Following identification of the fluid pocket Using ultrasound the site was marked. The site was cleaned using sterile technique. Lidocaine 1% was injected into the skin and the subcutaneous tissue. Subsequently, the periosteum in the parietal pleural was also anesthetized using lidocaine. The pleural space was entered in the posterior axillary line in the left eighth intercostal space. Straw-colored fluid was aspirated. About 1900 cc of fluid was aspirated including labs. There is still about 500-600 cc fluid left but informed pt that with dialysis and lasix it should improve. Patient tolerated procedure well Sample: The pleural fluid was sent for cell count and differential, pH, protein, LDH, albumin, Gram stain and culture, ADA and cytology. Postprocedure chest x-ray did not show any pneumothorax. 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
[2021-11-19 15:11] VITALS: BP 157/75; PULSE 68; RESP 18; O2SAT 96
[2021-11-19 18:28] LABS: Body Fluid Polynuclear #Cells 0.037; Body Fluid WBC 228 /uL; Monocytes # Body Fluid 0.191
[2021-11-19 18:58] LABS: Albumin Body Fluid 2.5 g/dL; Amylase Body Fluid 24 U/L; Fluid Alkaline Phos. 31 IU/L; LDH Body Fluid 128 U/L; Triglycerides Body Fluid 27 mg/dL (0-150); Uric Acid Body Fluid 3 mg/dL
[2021-11-19 19:01] LABS: Apprearance, Body Fluid CLOUDY; Color, Body Fluid RED
[2021-11-19 22:04] LABS: Cholesterol Body Fluid 62 mg/dL (0-200)
[2021-11-19 23:44] LABS: Total Protein Pleural Fluid 4.3 g/dL
[2021-11-23 21:17] LABS: Pleural Fld Adenosine Deami 10.3 U/L (<9.2)
== END 2021-11-19 15:15 | disposition home or self-care (01) ==
PROVIDERS: PCP Family Medicine; Visit Provider Internal Medicine Pulmonary Disease
PROC: (CPT 32554; principal; 2021-11-19 14:00)
DX: J90 Pleural effusion, not elsewhere classified (principal)
CPT/HCPCS: 32554; 71045; 80500; 82042; 82150; 82465; 82945; 83615; 83986; 84075; 84157; 84311; 84315; 84478; 84560; 87015; 87070; 87075; 87116; 87205; 87206; 87801; 88112; 88305; 89050

== ENCOUNTER 2021-11-23 15:43 | Outpatient (CLI) | payer MEDICARE, MEDICAID, SELFPAY ==
--- NOTE | 2021-11-23 16:00 | XRR_ITS ---
PROCEDURE INFORMATION: Exam: XR Chest Exam date and time: 11/23/2021 4:00 PM Age: 61 years old Clinical indication: Condition or disease; Lung condition and disease; Pleural effusion; Other: Not elsewhere classified; Additional info: J90 - pleural effusion, not elsewhere classified TECHNIQUE: Imaging protocol: XR of the chest. Views: 2 views. COMPARISON: CR XR chest 1V portable [id number] 11/19/2021 2:56 PM FINDINGS: Tubes, catheters and devices: Right central line terminates within the proximal right atrium. Lungs: No consolidation. Pleural spaces: Moderate volume left pleural effusion, increased from prior study. No pneumothorax. Heart/Mediastinum: Similar cardiomegaly. Bones/joints: Unremarkable. XR/XR chest 2V* [id number] IMPRESSION: 1. Moderate volume left pleural effusion, increased from prior study. 2. Similar cardiomegaly.
== END 2021-11-23 15:44 | disposition home or self-care (01) ==
LOC: RAD 15:47
PROVIDERS: PCP Family Medicine; Visit Provider Family Medicine
DX: J90 Pleural effusion, not elsewhere classified (principal); I51.7 Cardiomegaly
CPT/HCPCS: 71046

== ENCOUNTER 2021-11-23 16:53 | Inpatient (IN) | payer MEDICARE, MEDICAID, SELFPAY ==
[2021-11-23] VITALS (7 sets, daily range): BP systolic 120–161; BP diastolic 55–80; PULSE 75–90; RESP 18–22; TEMP 37.2–38.5; O2SAT 88–98; BMI 33.7; BMI 33.9
--- NOTE | 2021-11-23 17:03 | ECG_ITS ---
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 Measurements Intervals [place] Rate: 87 P: 67 AR: 191 QRS: -39 QRSD: 137 T: 108 QT: 408 QTc: 493 Interpretive Statements SINUS RHYTHM LEFT AXIS DEVIATION [QRS AXIS < -30] INTRAVENTRICULAR CONDUCTION DELAY [130+ ms QRS DURATION] Compared to ECG 06/13/2021 12:20:49 Left-axis deviation now present Intraventricular conduction delay now present First degree AV block no longer present Left ventricular hypertrophy no longer present ST (T wave) deviation no longer present Myocardial infarct finding no longer present Electronically Signed On 11-24-2021 19:54:17 MANUFACTURING LABORER by Elizabeth Gaines M.D. [email or web address]
--- NOTE | 2021-11-23 18:11 | W.ED.SOB ---
HPI - SOB/Dyspnea General: Chief Complaint: Shortness of Breath/Dyspnea Stated Complaint: Cant breath, sent over for poss fluid in lungs Time Seen by Provider: 11/23/21 17:59 History of Present Illness: HPI Narrative: Ms Shaw is a 61-year-old lady with complex past medical history including hypertension, hyperlipidemia, diabetes, CAD, heart failure with reduced ejection fraction, CKD, history of MRSA, thyroid disorder, and recurrent pleural effusions of somewhat unclear etiology requiring thoracentesis most recently on Monday. Symptoms of been worse for the past 3 days. Course has been progressively worsening. Exacerbated by lying flat. Severe last night. Patient presents with hypoxemia and tachypnea with oxygen saturations in the 80s requiring supplemental oxygen which is different the patient's baseline. Otherwise has chronic generalized symptoms including nausea without vomiting and chronic diarrhea however no other changes in health, exacerbating, relieving factors identified. This is worse than it has been in the past. Patient did have an x-ray prior to arrival and is follow-up with pulmonology. MD elicited complaint: shortness of breath and chest pain Pertinent past history: congestive heart failure Onset (ago): day(s) Context: other (history of pleural effusions, unclear etiology) Timing: progressively worsening Severity: severe Exacerbating factors: lying flat Relieving factors: nothing Known history of: congestive heart failure and other Associated symptoms: Reports no associated symptoms Treatment prior to arrival: none Review of Systems General: Reports: 10 or more systems reviewed and unremarkable except in HPI and below PFSH ED PFSH: Medical History Acute bronchitis Anemia Aortic valve endocarditis Bacteremia due to Staphylococcus EKG done this morning revealed normal sinus rhythm with a left axis deviation. Voltage area for LVH. No significant ST-T changes. 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 Neuropathy Protein-energy malnutrition Septic arthritis of left ankle Surgical History Central vascular catheter in place upon arrival History of cholecystectomy History of colonoscopy with polypectomy 2017 History of left below knee amputation History of lumbar surgery Due to epidural abscess in March 2018 Peritoneal dialysis catheter in place removal 05/20/21 S/P hemodialysis catheter insertion Status post below-knee amputation of left lower extremity Family History Mother Cancer Uterine and breast cancer Father Diabetes Other CAD (coronary artery disease) Social History Alcohol intake: current Alcohol intake frequency: holidays/special occasions only Female Reproductive History: Date of last menstrual period: 05/28/14 Physical Exam Const: COMMON NORMALS: alert GENERAL APPEARANCE: cooperative, well developed and ill appearing HENMT: COMMON NORMALS: normocephalic and atraumatic HEAD & SCALP: normocephalic and atraumatic THROAT: posterior oropharynx normal Eye: COMMON NORMALS: conjunctivae normal CONJUNCTIVA: Yes conjunctivae normal SCLERA: sclerae normal Neck/C-Spine: COMMON NORMALS: supple GENERAL: Yes trachea midline Resp: EFFORT & INSPECTION: Yes tachypneic and Yes uses accessory muscles AUSCULTATION: diminished lung sounds on the left Cardio: COMMON NORMALS: regular rhythm RATE: tachycardic RHYTHM: regular rhythm OTHER: no significant peripheral edema GI: COMMON NORMALS: Soft to palpation PALPATION: Yes Soft to palpation and No Tenderness to palpation present (GI) PERCUSSION: normal to percussion Extremity: GENERAL: Yes normal exam except as noted and No edema Neuro: COMMON NORMALS: moves all extremities SENSORIUM/ORIENTATION: Yes alert and No Orientation impaired Psych: COMMON NORMALS: mental status grossly normal and Normal thought process present THOUGHT PROCESS: Normal thought process present Skin: NARRATIVE SKIN EXAM: no evidence of obvious infection from prior thoracentesis Course ED course: - Patient was seen and evaluated by me at bedside - Patient placed on cardiac monitors, IV access obtained - Initial evaluation notable for somewhat ill appearance, mild tachypnea though adequate oxygen saturation on supplemental oxygen. - Labs notable for leukocytosis, macrocytic anemia worse than recent however recent is a number of months old and she has had low hemoglobin in the past. No evidence of active bleeding on clinical exam. Metabolic panel consistent with known end-stage renal disease, no emergent indication for dialysis. Troponin baseline is elevated to repeat it is less likely indicating this is secondary to CKD. BNP elevated above 35,000, no evidence of gross fluid overload peripherally on clinical exam. Rapid COVID-negative - Imaging obtained prior to ED visit however this was reviewed and notable for moderate left-sided pleural effusion consistent with clinical history and physical exam - Upon serial reexamination after treatment the patient was similar. She did have improvement on supplemental oxygen subjectively. - Based on patient history, evaluation, labs, and imaging as interpreted the most likely cause of the patient's condition is recurrent pleural effusion and SIRS criteria. I discussed this case with Dr. Means of the pulmonology service. Very complex case especially in the context of rapid recurrence and end-stage renal disease. The patient does meet SIRS criteria so certainly infected pleural effusion is a consideration and after discussion patient will be given a dose of Zosyn. Given severity of symptoms and progressive worsening patient will be admitted for observation and evaluation by Dr. Coffman tomorrow morning for consideration of repeat thoracentesis versus other management. - The results of ED evaluation were discussed with the patient including plan for admission due to requirement for level of care not available if discharged to prevent significant worsening/deterioration. - Hospitalist service contacted and agreed to admit the patient. - Patient was admitted without further deterioration or significant events. Vital Signs: Vital signs: Vital Signs Temperature 98.1 F 11/28/21 14:52 Pulse Rate 66 11/28/21 14:52 Respiratory Rate 16 11/28/21 14:52 Blood Pressure 181/83 11/28/21 14:52 Pulse Oximetry 98 11/28/21 14:52 MDM - SOB/Dyspnea MDM Narrative: Medical decision making narrative: 61-year-old lady with complex past medical history including hypertension, hyperlipidemia, history of MRSA, CAD, heart failure with reduced ejection fraction, CKD on dialysis who presents to the emergency department with new oxygen requirement and rapidly recurrent pleural effusion. Patient does meet SIRS criteria. Very mixed picture regarding etiology of symptoms and laboratory abnormalities as well as best management strategy. Patient does not require emergent thoracentesis in the emergency department however after discussion with pulmonology does require further evaluation in the inpatient setting. Medical Records: Attestation: I reviewed the patient's medical records. Lab Data: Attestation: I reviewed the patient's lab results. Labs: Lab Results 11/23/21 11/23/21 11/23/21 18:35 18:35 18:35 WBC 12.6 10^3/uL H 10 ^3/uL (4.0-10.0) RBC 2.80 10^6/uL L 10 ^6/uL (4.1-5.3) Hgb 9.3 g/dL L g/dL (11.5-15.3) Hct 28.6 % L % (37.0-47.0) MCV 102.1 fl H fl (81-99) MCH 33.2 pg pg (28.0-34.0) MCHC 32.5 g/dL g/dL (30.0-36.0) RDW 14.6 % % (12.1-15.1) Plt Count 204 10^3/cmm 10^3 /cmm (130-400) MPV 10.5 fL H fL (7.4-10.4) Neut % (Auto) 85.1 % % Lymph % (Auto) 2.7 % % [place] % (Auto) 10.7 % % Eos % (Auto) 0.6 % % Baso % (Auto) 0.6 % % Neut # (Auto) 10.69 10^3/uL H 1 0^3/uL (1.8-7.7) Lymph # (Auto) 0.3 10^3/uL L 10^ 3/uL (0.8-4.8) [place] # (Auto) 1.4 10^3/uL H 10^ 3/uL (0.2-0.9) Eos # (Auto) 0.1 10^3/uL 10^3/ uL (0.0-0.8) Baso # (Auto) 0.1 10^3/uL 10^3/ uL (0.0-0.1) Nucleated RBC % (a uto) 0 % % Nucleated RBCs # 0.0 /100WBC /100W BC Sodium 136 mmol/L mmol/L (136-145) Potassium 5.0 mmol/L mmol/L (3.5-5.1) Chloride 90 mmol/L L mmol/ L (98-107) Carbon Dioxide 31 mmol/L H mmol/ L (22-29) Anion Gap 20.0 H (5-19) BUN 27 mg/dL H mg/dL (6-20) Creatinine 5.4 mg/dL H mg/dL (0.5-0.9) GFR Calculation 8.1 mL/min L mL/m in (90-130) Glucose 145 mg/dL H mg/dL (65-115) Calculated Osmolal ity 290 mOsm/kg mOsm/ kg (285-295) Calcium 9.6 mg/dL mg/dL (8.5-10.5) Troponin T Baselin e 211 ng/L H* ng/L (0-10) Troponin T 120 Min [place] Troponin T C-Reactive Protein NT-Pro-B Natriuret Pep > 91151 pg/mL H p g/mL (0-125) Procalcitonin SARS-CoV-2 Ag (Rap id) 11/23/21 11/23/21 11/23/21 18:35 19:32 20:19 WBC RBC Hgb Hct MCV MCH MCHC RDW Plt Count MPV Neut % (Auto) Lymph % (Auto) [place] % (Auto) Eos % (Auto) Baso % (Auto) Neut # (Auto) Lymph # (Auto) [place] # (Auto) Eos # (Auto) Baso # (Auto) Nucleated RBC % (a uto) Nucleated RBCs # Sodium Potassium Chloride Carbon Dioxide Anion Gap BUN Creatinine GFR Calculation Glucose Calculated Osmolal ity Calcium Troponin T Baselin e Troponin T 120 Min [place] 197.4 ng/L H ng/L (0-10) [place] Troponin T -13.6 ABS# L ABS# (0-10) C-Reactive Protein 16.3 mg/L H mg/L (0.0-4.9) NT-Pro-B Natriuret Pep Procalcitonin 0.22 ng/mL ng/mL (0-0.5) SARS-CoV-2 Ag (Rap id) Negative (Negative) EKG Data^: EKG 1: Attestation: I personally reviewed and interpreted this EKG as follows: EKG Interpretation Date: 11/23/21 EKG interpretation time: 18:30 Interpretation: Twelve-lead EKG shows a regular rhythm at a rate of 87. IL interval 191, QRS duration 137, QTc 453. Left axis deviation. Interpretation: Sinus rhythm. Left bundle branch block. Discharge Plan Discharge Patient Disposition: Placed in Observation Admit Provider: Althea Larkin Clinical Impression: Pleural effusion, left, History of MRSA infection, Chronic kidney disease with end stage renal failure on dialysis, Hypoxemia, SIRS (systemic inflammatory response syndrome) Discharge Diet: Advance as tolerated and Cardiac Coding Level of Care Code ED Lip Reading Teacher for Chg Fwd Exam Comprehensive
[2021-11-23 18:44] LABS: Basophils # 0.1 10^3/uL (0.0-0.1); Basophils % 0.6 %; Eosinophils # 0.1 10^3/uL (0.0-0.8); Eosinophils % 0.6 %; Hematocrit 28.6 % (37.0-47.0); Hemoglobin 9.3 g/dL (11.5-15.3); Lymphocytes # 0.3 10^3/uL (0.8-4.8); Lymphocytes % 2.7 %; Mean Corpuscular HGB Conc 32.5 g/dL (30.0-36.0); Mean Corpuscular Hemoglobin 33.2 pg (28.0-34.0); Mean Corpuscular Volume 102.1 fl (81-99); Mean Platelet Volume 10.5 fL (7.4-10.4); Monocytes # 1.4 10^3/uL (0.2-0.9); Monocytes % 10.7 %; Neutrophils # 10.69 10^3/uL (1.8-7.7); Neutrophils % 85.1 %; Nucleated Red Blood Cells % 0 %; Platelet Count 204 10^3/cmm (130-400); Red Cell Distribution Width 14.6 % (12.1-15.1); White Blood Count 12.6 10^3/uL (4.0-10.0)
[2021-11-23 19:11] LABS: Troponin(5th) Baseline 211 ng/L (0-10)
[2021-11-23 19:17] LABS: Blood Urea Nitrogen 27 mg/dL (6-20); Calcium 9.6 mg/dL (8.5-10.5); Carbon Dioxide 31 mmol/L (22-29); Chloride 90 mmol/L (98-107); Glomerular Filtration Rate 8.1 mL/min (90-130); Glucose 145 mg/dL (65-115); Osmolality Calculated 290 mOsm/kg (285-295); Sodium 136 mmol/L (136-145)
[2021-11-23 19:37] LABS: C Reactive Protein 16.3 mg/L (0.0-4.9)
[2021-11-23 19:44] LABS: Procalcitonin 0.22 ng/mL (0-0.5)
[2021-11-23 20:05] LABS: SARS Covid-2 Antigen Negative (Negative)
[2021-11-23 20:16] LABS: NT Pro B Type Natriuretic Pept > 35000 pg/mL (0-125)
[2021-11-23] MEDS: acetaminophen 500 mg Tablet 1000 MG PO (20:36)
[2021-11-23 20:54] LABS: Troponin 5 2HR Delta -13.6 ABS# (0-10)
[2021-11-23 20:55] LABS: Troponin 5 2HR 197.4 ng/L (0-10)
[2021-11-23] MEDS: piperacillin-tazobactam 4.5 GM in sodium chloride 0.9% (plus) 50 ML IV (21:28)
--- NOTE | 2021-11-23 23:03 | ECG_ITS ---
[facility] Test Date: 2021-11-24 Pat Name: Alesia Shaw Department: Room: 258 Gender: Female Financial Analyst: : 1960 Requested By: Deepak Jimenez Order Number: [id number] Leah MD: Elizabeth Gaines M.D. Measurements Intervals [place] Rate: 72 P: 22 FL: 170 QRS: -16 QRSD: 133 T: 139 QT: 418 QTc: 459 Interpretive Statements SINUS RHYTHM POSSIBLE LEFT ATRIAL ENLARGEMENT [-0.1mV P WAVE IN V1/V2] INTRAVENTRICULAR CONDUCTION DELAY [130+ ms QRS DURATION] LEFT VENTRICULAR HYPERTROPHY AND ST-T CHANGE [VOLTAGE CRITERIA PLUS ST/T ABNORMALITY] POSSIBLE ANTERIOR MYOCARDIAL INFARCTION , OF INDETERMINATE AGE [30 ms Q WAVE IN V3/V4, OR R < 0.2 mV IN V4] Compared to ECG 11/23/2021 18:24:54 Left ventricular hypertrophy now present ST (T wave) deviation now present Myocardial infarct finding now present Left-axis deviation no longer present Electronically Signed On 11-24-2021 20:07:31 PIPE BOWLS PAINT TRIMMER by Elizabeth Gaines M.D. [id number]
[2021-11-23 23:31] LABS: Adenovirus Not Detected (NOT DETECT); Chlamydia Pneumoniae Not Detected (NOT DETECT); Coronavirus 229E,HKU1,NL63,OC4 Not Detected (NOT DETECT); Human Metapneumovirus Not Detected (NOT DETECT); Human Rhinovirus/Enterovirus Not Detected (NOT DETECT); Influenza A Not Detected (NOT DETECT); Influenza A H1 Not Detected (NOT DETECT); Influenza A H1-2009 Not Detected (NOT DETECT); Influenza A H3 Not Detected (NOT DETECT); Influenza B Not Detected (NOT DETECT); Mycoplasma Pneumoniae Not Detected (NOT DETECT); Parainfluenza Virus Type 1 Not Detected (NOT DETECT); Parainfluenza Virus Type 2 Not Detected (NOT DETECT); Parainfluenza Virus Type 3 Not Detected (NOT DETECT); Parainfluenza Virus Type 4 Not Detected (NOT DETECT); Respiratory Syncytial Virus A Not Detected (NOT DETECT); Respiratory Syncytial Virus B Not Detected (NOT DETECT); SARS-COV-2 Not Detected (NOT DETECT)
[2021-11-24] VITALS (14 sets, daily range): BP systolic 114–159; BP diastolic 57–77; PULSE 67–78; RESP 16–18; TEMP 36.6–37.7; O2SAT 97–100
--- NOTE | 2021-11-24 00:33 | PC.NURSE ---
2215 to rm [id number] via stretcher from ER. Pt a/ox4. Reports increased shortness of breath since had fluid drained off of left lung Monday. O2 at 3L in use. Pt is Left below knee amputee and right foot turned outwards. Pt reports she has a prosthetic but doesn't use. She uses w/c and slide board for transfers. Bedside commode at bedside with one rail down for slide board use. Right leg approx 8cm area of redness and warmth noted to anterior below knee. Pt says she gets that way when she is hot and/or has fever. Right leg edema noted non pitting. POC explained. Awaiting doctor orders for further care. Voices understanding.
--- NOTE | 2021-11-24 00:41 | PC.NURSE ---
5830 Dr. Larkin notified pt to rm [id number]. She reports she will see pt and add orders as soon as possible. No immediate needs at this time. Pt not in resp distress, lungs diminished bilat.
--- NOTE | 2021-11-24 00:42 | PC.NURSE ---
0030 RT at bedside for EKG.
[2021-11-24 01:23] LABS: Troponin 5 6HR 204.7 ng/L (0-10); Troponin 5 6HR Delta -6.3 ng/L (0-12)
--- NOTE | 2021-11-24 01:38 | P.HP_ITS ---
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 She has a left sided pleural effusion which has been pres ent since at least 06/2021 and has undergone thoracentesis on multiple occassions, most recently on 11/19/21. cell count and differential 223 predominant mononuclear, pH 8, LDH 128, albumin 2.5, Gram stain and culture no organisms , ADA ordered but results not seen in system and cytology with chronic i nflammation with mesothelial cells. Her last known EF is at 25% Global hypokinesis with regional variation. On her last cardiology visit she reported that she stopped taking Entresto because of hyperkalemia and spironolactone due to diarrhea. declined life vest due to concern for intereference with tunneled cath, per her she is being considered for AICS placement nect month. On 11/16 Bumex dose was increased to 4mg BID and hydralazine was added 50mg TID. However patient currently taking Lasix 120mg BID instead of Bumex. Came to ER today with c/o worsening dyspnea, reports a new 02 requirement of 3lpm, however per review of prior admissions, patient has been between 2-8 lpm supplemetal 02 on priro admissions. Unbale to find a home 02 eval at this time however in the past has been discharged to SNF. also c/o productive cough and chronic diarrhea. X ray in the ER shows reaccumulation of left sided pleural effusion. EKG without acute ST-T wave changes. Trop elevated at >2-00 however delta not significant at 2 and 6 hrs. Prior numbers from 2019 within the same range. though patient denied any fever or chills at home, current T max at 101.3F in the ER. COVID PCR negative. Denies dyruia, follows with [facility] for gr 2 diabetic wound over right heel which has been healing well per notes review. Review of Systems General: Reports: 10 or more systems reviewed and unremarkable except in HPI and below Const: Denies: fever(s), chills or body aches Eyes: Denies: change in vision, blurry vision or photophobia ENMT: Reports: hoarseness; Denies: throat pain, enlarged tonsils, odynophagia or nasal congestion Card: Denies: chest pain, palpitations, irregular heart rhythm, edema, swelling of feet/ankles, lightheadedness, pre-syncope, dyspnea on exertion or orthopnea Resp: Denies: dyspnea, productive cough, non-productive cough, wheezing, stridor, pain on inspiration, change in phlegm color, hemoptysis or chest congestion GI: Denies: abdominal pain, nausea, vomiting, hematemesis, coffee ground emesis, dysphagia, heartburn, diarrhea, constipation, GI cramping, change in stool character, hematochezia or melena : Denies: flank pain, difficulty voiding, dysuria, urinary frequency, urinary urgency, urinary hesitancy or hematuria Musc: Denies: neck pain, back pain, extremity pain, joint swelling, joint warmth or deformity Neuro: Denies: headache(s), numbness in extremities, weakness in extremities, sensory changes, difficulty walking, frequent falls, dizziness, vertigo, behavioral changes, Slurred speech present or seizure-like activity Psych: Denies: anxiety, depression, suicidal ideation or homicidal ideation Endo: Denies: polyuria, polydipsia, tired all the time, cold intolerance or hot flashes Jimmy/Lymph: Denies: easy bruising or easy bleeding Medications/Allergies Home Medications Medication Instructions Recorded Confirmed Last Taken Type Stump Copy Writer #1 ea 01/12/21 11/23/21 07/20/21 Rx carvedilol [Coreg] 25 mg PO BID 05/19/21 11/23/21 11/23/21 History RenaPlex-D 1 tab PO DAILY 06/13/21 11/23/21 11/23/21 History albuterol sulfate [ProAir HFA] 2 puff INHALATION Q4H PRN 06/13/21 11/23/21 07/20/21 History aspirin [Children's Aspirin] 81 mg PO DAILY 90 Days #90 tab 06/22/21 11/23/21 11/22/21 Rx clopidogrel 75 mg PO DAILY 90 Days #90 tab 06/22/21 11/23/21 11/23/21 Rx nitroglycerin 0.4 mg SUBLINGUAL Q5M PRN 30 Days 06/22/21 11/23/21 07/20/21 Rx #30 tab nystatin 100,000 unit/gram topical 1 applic TOPICAL BID #30 g 06/29/21 11/23/21 07/20/21 Rx cream dextromethorphan-guaifenesin 10 1 tab-cap PO Q8H PRN 07/30/21 11/23/21 Unknown History mg-200 mg capsule furosemide 80 mg tablet 120 mg PO 0800,1400 #270 tab 09/14/21 11/23/21 11/23/21 Rx levothyroxine 150 mcg tablet 150 mcg PO DAILY #30 tab 10/14/21 11/23/21 11/23/21 Rx promethazine 25 mg tablet 25 mg PO Q6H PRN #30 tab 10/14/21 11/23/21 Unknown Rx isosorbide mononitrate 120 mg 120 mg PO DAILY #30 tab 11/09/21 11/23/21 11/23/21 Rx tablet,extended release 24 hr doxazosin 2 mg tablet 8 mg PO BID tab 11/16/21 11/23/21 11/23/21 History hydralazine 50 mg tablet 50 mg PO TID #90 tab 11/16/21 11/23/21 11/23/21 Rx psyllium husk [Metamucil] 0.4 g PO DAILY 11/23/21 11/23/21 11/23/21 History Allergies Allergy/AdvReac Type Severity Reaction Status Date / Time Iodinated Contrast Media Allergy ALGY-Hives Verified 11/19/21 15:19 PFSH Acute PFSH: Medical History Acute bronchitis Anemia Aortic valve endocarditis Bacteremia due to Staphylococcus EKG done this morning revealed normal sinus rhythm with a left axis deviation. Voltage area for LVH. No significant ST-T changes. 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 Neuropathy Protein-energy malnutrition Septic arthritis of left ankle Surgical History Central vascular catheter in place upon arrival History of cholecystectomy History of colonoscopy with polypectomy 2017 History of left below knee amputation History of lumbar surgery Due to epidural abscess in March 2018 Peritoneal dialysis catheter in place removal 05/20/21 S/P hemodialysis catheter insertion Status post below-knee amputation of left lower extremity Family History Mother Cancer Uterine and breast cancer Father Diabetes Other CAD (coronary artery disease) Social History Smoking and tobacco status: never smoked Alcohol intake: current Alcohol intake frequency: holidays/special occasions only Female Reproductive History: Date of last menstrual period: 05/28/14 Vitals/I&O/Wt Last Vital Signs Temp 99 F 11/23/21 22:45 Pulse 73 11/24/21 00:32 Resp 18 11/23/21 22:45 BP 120/64 11/23/21 22:45 Pulse Ox 97 11/24/21 00:32 Weight last 48 hrs Weight 95.254 kg Weight 94.801 kg Physical Exam Narrative: EXAM NARRATIVE: General: No acute distress, AO x3 HEENT: PERRLA, pupils bilaterally equal and reactive, pallors not present Chest: Normal vesicular breath sounds, no added sounds, equal good air entry bilaterally CVS: S1-S2 regular, no murmurs, no tachycardia, no gallops, no rubs Abdomen: Soft, nontender, no organomegaly, bowel sounds present Neuro: No focal deficits, no facial deformity, AO x3, power 5/5 in all limbs HD access site without signs of cellulitis Data : 11/23/21 18:35 11/23/21 18:35 Micro: Microbiology 11/23/21 20:19 Blood Culture - Preliminary Blood SPECIMEN COLLECTED 11/23/21 20:16 Blood Culture - Preliminary Blood SPECIMEN COLLECTED Attestation for Other Data: I personally reviewed and interpreted the following: Other data: Laboratory Results WBC 12.6 10^3/uL (4.0-10.0) H 11/23/21 18:35 RBC 2.80 10^6/uL (4.1-5.3) L 11/23/21 18:35 Hgb 9.3 g/dL (11.5-15.3) L 11/23/21 18:35 Hct 28.6 % (37.0-47.0) L 11/23/21 18:35 MCV 102.1 fl (81-99) H 11/23/21 18:35 MCH 33.2 pg (28.0-34.0) 11/23/21 18:35 MCHC 32.5 g/dL (30.0-36.0) 11/23/21 18:35 RDW 14.6 % (12.1-15.1) 11/23/21 18:35 Plt Count 204 10^3/cmm (130-400) 11/23/21 18:35 MPV 10.5 fL (7.4-10.4) H 11/23/21 18:35 Neut % (Auto) 85.1 % 11/23/21 18:35 Lymph % (Auto) 2.7 % 11/23/21 18:35 [place] % (Auto) 10.7 % 11/23/21 18:35 Eos % (Auto) 0.6 % 11/23/21 18:35 Baso % (Auto) 0.6 % 11/23/21 18:35 Neut # (Auto) 10.69 10^3/uL (1.8-7.7) H 11/23/21 18:35 Lymph # (Auto) 0.3 10^3/uL (0.8-4.8) L 11/23/21 18:35 [place] # (Auto) 1.4 10^3/uL (0.2-0.9) H 11/23/21 18:35 Eos # (Auto) 0.1 10^3/uL (0.0-0.8) 11/23/21 18:35 Baso # (Auto) 0.1 10^3/uL (0.0-0.1) 11/23/21 18:35 Nucleated RBC % (auto) 0 % 11/23/21 18:35 Nucleated RBCs # 0.0 /100WBC 11/23/21 18:35 Sodium 136 mmol/L (136-145) 11/23/21 18:35 Potassium 5.0 mmol/L (3.5-5.1) 11/23/21 18:35 Chloride 90 mmol/L (98-107) L 11/23/21 18:35 Carbon Dioxide 31 mmol/L (22-29) H 11/23/21 18:35 Anion Gap 20.0 (5-19) H 11/23/21 18:35 BUN 27 mg/dL (6-20) H 11/23/21 18:35 Creatinine 5.4 mg/dL (0.5-0.9) H 11/23/21 18:35 GFR Calculation 8.1 mL/min (90-130) L 11/23/21 18:35 Glucose 145 mg/dL (65-115) H 11/23/21 18:35 Calculated Osmolality 290 mOsm/kg (285-295) 11/23/21 18:35 Calcium 9.6 mg/dL (8.5-10.5) 11/23/21 18:35 Troponin T Baseline 211 ng/L (0-10) H* 11/23/21 18:35 Troponin T 120 Minute 197.4 ng/L (0-10) H 11/23/21 20:19 Delta Troponin T -13.6 ABS# (0-10) L 11/23/21 20:19 Troponin T Hi Sens 6Hr 204.7 ng/L (0-10) H 11/24/21 00:35 Troponin T Hi Sens 6Hr Delta -6.3 ng/L (0-12) L 11/24/21 00:35 C-Reactive Protein 16.3 mg/L (0.0-4.9) H 11/23/21 18:35 NT-Pro-B Natriuret Pep > 74670 pg/mL (0-125) H 11/23/21 18:35 Procalcitonin 0.22 ng/mL (0-0.5) 11/23/21 18:35 Coronavirus 229E (PCR) Not detected (NOT DETECT) 11/23/21 21:29 SARS-CoV-2 (PCR) Not detected (NOT DETECT) 11/23/21 21:29 SARS-CoV-2 Ag (Rapid) Negative (Negative) 11/23/21 19:32 XR/XR chest 2V* [id number] IMPRESSION: 1. Moderate volume left pleural effusion, increased from prior study. 2. Similar cardiomegaly. A&P Assessment and plan (1) Hypoxemia: Status: Acute (2) Pleural effusion, left: Status: Acute (3) ESRD (end stage renal disease): Status: Acute (4) CAD (coronary artery disease): Status: Acute Qualifiers: Associated angina: without angina Coronary Disease-Associated Artery/Lesion type: [place] artery [place] vs. transplanted heart: [place] heart Qualified Code(s): I25.10 - Atherosclerotic heart disease of [place] coronary artery without angina pectoris (5) Diabetic ulcer of foot associated with diabetes mellitus due to underlying condition, limited to breakdown of skin: Status: Acute (6) Ischemic cardiomyopathy: Status: Acute (7) Fever: Status: Acute Qualifiers: Fever type: unspecified Qualified Code(s): R50.9 - Fever, unspecified Additional A&P Information Patient with complex PMH as outlined above presneting today with worsened dyspnea, fever, requiring 3lpm supplemental 02 and reaccumulated long standing left sided pleural effusion Admit to med/surg as inpatient CXR with left pleural effusion, unable to appreciate underlying consolidation on current film COVID PCR negative check UA, Urine cx, blood cx, c diff PCR given ongoing diarrhea. Empirically recieved Zosyn in the ER which will be continued recent thoracentesis on 11/19 - pleural fluid analysis appears more likely to be transudative effusion. Gram stain and cx negative from this day Foot ulcer healing well per patient account and [facility] notes review, HD access without signs of cellulitis or drainage Pulmonology consulted from ER for possible thorcaneteis nephrology consult to resume MWF dialysis Bumex 2mg IV q12h in the interim Attestations Medical Necessity Statement*: anticipate >2 midnight admission for above defined care Coding Level of Care Code Acute Rn Imaging for Chg Fwd Diagnoses Hypoxemia R09.02 Pleural effusion, left J90 ESRD (end stage renal disease) N18.6 CAD (coronary artery disease) I25.10 Associated angina: without angina Coronary Disease-Associated Artery/Lesion type: [place] artery [place] vs. transplanted heart: [place] heart Diabetic ulcer of foot associated with diabetes mellitus due to underlying condition, limited to breakdown of skin E08.621; L97.501 Ischemic cardiomyopathy I25.5 Fever R50.9 Fever type: unspecified
[2021-11-24] MEDS: bumetanide 0.25 mg/mL SDV 10 mL 2 MG IVP ×2 (03:59→14:52)
[2021-11-24] MEDS: heparin 5,000 unit/mL INJ 1 mL 5000 UNIT SUBCUT ×2 (04:00→14:52)
--- NOTE | 2021-11-24 05:52 | PC.NURSE ---
0545 Dr Larkin at bedside.
--- NOTE | 2021-11-24 07:16 | P.CONIM_ITS ---
Providers/Reason For Consult Consulting Physician/Specialty*: dex dowd md / telenephrology Reason for Consult*: ESRD care Attending Physician: Althea Larkin MD Primary Care Provider: Karen Bear MD History of Present Illness History of Present Illness Alesia Shaw is a 61 year old female w/ ESRD on HD MWF, HTN, type 2 DM, chronic systolic dysfunction ( EF 25%) , leg edema, hypothyroidism, history of spinal abscess with MRSA 2017, 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 She has a left sided pleural effusion which has been present since at least 06/2021 and has undergone thoracentesis on multiple occasions, most recently on 11/19/21. Pt presented to ER w/ inc MOTT, orthopnea and SOB. In ER cxr reveled a left pleural effusion. renal consulted for ESRD care. Review of Systems General: Reports: 10 or more systems reviewed and unremarkable except in HPI and below Narrative: weak, sob, mott, leg edema, poor appetite, cough Medications/Allergies Home Medications Medication Instructions Recorded Confirmed Last Taken Type Stump Clinical Systems Analyst #1 ea 01/12/21 11/23/21 07/20/21 Rx carvedilol [Coreg] 25 mg PO BID 05/19/21 11/23/21 11/23/21 History RenaPlex-D 1 tab PO DAILY 06/13/21 11/23/21 11/23/21 History albuterol sulfate [ProAir HFA] 2 puff INHALATION Q4H PRN 06/13/21 11/23/21 07/20/21 History aspirin [Children's Aspirin] 81 mg PO DAILY 90 Days #90 tab 06/22/21 11/23/21 11/22/21 Rx clopidogrel 75 mg PO DAILY 90 Days #90 tab 06/22/21 11/23/21 11/23/21 Rx nitroglycerin 0.4 mg SUBLINGUAL Q5M PRN 30 Days 06/22/21 11/23/21 07/20/21 Rx #30 tab nystatin 100,000 unit/gram topical 1 applic TOPICAL BID #30 g 06/29/21 11/23/21 07/20/21 Rx cream dextromethorphan-guaifenesin 10 1 tab-cap PO Q8H PRN 07/30/21 11/23/21 Unknown History mg-200 mg capsule furosemide 80 mg tablet 120 mg PO 0800,1400 #270 tab 09/14/21 11/23/21 11/23/21 Rx levothyroxine 150 mcg tablet 150 mcg PO DAILY #30 tab 10/14/21 11/23/21 11/23/21 Rx promethazine 25 mg tablet 25 mg PO Q6H PRN #30 tab 10/14/21 11/23/21 Unknown Rx isosorbide mononitrate 120 mg 120 mg PO DAILY #30 tab 11/09/21 11/23/21 11/23/21 Rx tablet,extended release 24 hr doxazosin 2 mg tablet 8 mg PO BID tab 11/16/21 11/23/21 11/23/21 History hydralazine 50 mg tablet 50 mg PO TID #90 tab 11/16/21 11/23/21 11/23/21 Rx psyllium husk [Metamucil] 0.4 g PO DAILY 11/23/21 11/23/21 11/23/21 History Allergies Allergy/AdvReac Type Severity Reaction Status Date / Time Iodinated Contrast Media Allergy ALGY-Hives Verified 11/19/21 15:19 Current Medications Generic Name Dose Route Start Last Admin Trade Name Freq PRN Reason Stop Dose Admin Bumetanide 2 mg 11/24/21 02:15 11/24/21 03:59 Bumetanide 0.25 Mg/Ml Sdv 10 Ml IVP 2 mg Q12H SHELBY Administration Heparin Sodium (Porcine) 5,000 unit 11/24/21 02:15 11/24/21 04:00 Heparin 5,000 Unit/Ml Inj 1 Ml SUBCUT 5,000 unit Q12H SHELBY Administration PFSH Acute PFSH: Medical History Acute bronchitis Anemia Aortic valve endocarditis Bacteremia due to Staphylococcus EKG done this morning revealed normal sinus rhythm with a left axis deviation. Voltage area for LVH. No significant ST-T changes. 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 Neuropathy Protein-energy malnutrition Septic arthritis of left ankle Surgical History Central vascular catheter in place upon arrival History of cholecystectomy History of colonoscopy with polypectomy 2017 History of left below knee amputation History of lumbar surgery Due to epidural abscess in March 2018 Peritoneal dialysis catheter in place removal 05/20/21 S/P hemodialysis catheter insertion Status post below-knee amputation of left lower extremity Family History Mother Cancer Uterine and breast cancer Father Diabetes Other CAD (coronary artery disease) Social History Smoking and tobacco status: never smoked Alcohol intake: current Alcohol intake frequency: holidays/special occasions only Female Reproductive History: Date of last menstrual period: 05/28/14 Vitals/I&O/Wt Last Vital Signs Temp 99.1 F 11/24/21 04:00 Pulse 71 11/24/21 06:00 Resp 16 11/24/21 04:00 BP 114/57 11/24/21 04:00 Pulse Ox 97 11/24/21 04:00 11/23/21 11/24/21 11/24/21 22:59 06:59 14:59 Intake Total 170 / 170 Balance 170 / 170 Weight last 48 hrs Weight 95.254 kg Weight 94.801 kg Physical Exam Narrative: EXAM NARRATIVE: sob in bed, using 02 vs note heent- nc/at, eomi, anicteric neck supple lungs dull bases heart- s1, s2, reg abd soft, nt, nd, + bs ext- left BKA, rt sided edema neuro- a,a, o x 3 access- rt sided permacath Data Micro: Micro: Microbiology 11/23/21 20:19 Blood Culture - Pr eliminary Blood SPECIMEN [facility] BRYANNA 11/23/21 20:16 Blood Culture - Pr eliminary Blood SPECIMEN [facility] A&P Additional A&P Information 61 yr old female 1. pleural effusion- agree w/ pulm eval for possible thoracentesis - q pna - renal dose abx 2. acute on chronic systolic CHF-refused life vest- per cardiology- elevated BNP noted 3. ESRD- HD MWF- HD now- 3.5 hrs, 2k, remove 2l -check vit d, pth, phos 4. htn- dec hydralazine to have bp room for dialysis 5. anemia- check iron studies and give GARRETT seen and examined w/ RN- telehealth visit Consult Attestations Medical Necessity Statement: sob, pleural effusion, esrd- per medicine Time Spent in Patient Care: Greater than 35 minutes (>than 50% of time spent in counselling and/or direct pt care on unit) . Coding Level of Care Code Acute Reel System Operator for Gregorio Thompson
--- NOTE | 2021-11-24 07:32 | USCV_ITS ---
Alesia Shaw Age: 61 Gender: F : 1960 Exam Date: 11/24/2021 08:14 Ordering Phys: Irwin Payne MD Technologist: Jarod Quick Exam Location: [facility] – [place]_ Indication: EDEMA PROCEDURES: Venous duplex imaging was performed in bilateral lower extremities. The following venous structures were evaluated: common femoral vein, profunda vein, proximal portion of the greater saphenous vein, superficial femoral vein, and the popliteal vein. In addition, the posterior tibial and peroneal trunk were evaluated. Serial compression, augmentation maneuvers, and spectral Doppler flow evaluation were performed. FINDINGS: Could not visualize right posterior tibs due to swelling. The patient also has her left leg amputated below the knee.normal 2- D Doppler and augmentation and compressibility throughout the lower extremity venous structures. Additional imaging through the proximal calf veins also reveals no thrombus. Limited evaluation of the greater saphenous vein is patent with no thrombus.. CONCLUSIONS No evidence of right lower extremity DVT. Right posterior tibial not visualized due to edema No evidence of left lower extremity DVT. Prior Left BKA Prominent lymph nodes left groin non specific but likely reactive All Washington MD (Electronically Signed) Final Date: 24 November 2021 09:41 S
[2021-11-24] MEDS: pantoprazole DR 40 mg Tablet PO (08:30)
[2021-11-24] MEDS: clopidogrel 75 mg Tablet PO (08:30)
[2021-11-24] MEDS: carvedilol 25 mg Tablet PO ×2 (08:30→17:25)
[2021-11-24] MEDS: levothyroxine 150 mcg Tablet PO (08:30)
[2021-11-24] MEDS: psyllium powder Pkt 1 PACKET PO (08:30)
[2021-11-24] MEDS: aspirin 81 mg Chew Tablet PO (08:30)
[2021-11-24] MEDS: isosorbide mononitrate ER 60 mg Tablet 120 MG PO (08:30)
[2021-11-24] MEDS: hyDRALAzine 50 mg Tablet PO (08:31)
[2021-11-24] MEDS: hyDRALAzine 10 mg Tablet PO ×3 (08:33→21:22)
[2021-11-24] MEDS: nystatin cream 30 gm 1 APPLIC TOPICAL ×2 (08:33→17:32)
[2021-11-24] MEDS: b-complex-vitamin c Tablet 1 EACH PO (08:33)
[2021-11-24] MEDS: piperacillin-tazobactam 3.375 GM in sodium chloride 0.9% (plus) 50 ML IV ×2 (08:37→21:26)
[2021-11-24 09:37] LABS: Hepatitis B Surface AB 3.9 (11.5-1000); Hepatitis C Virus Antibody Non-Reactive (Nonreactive)
[2021-11-24 10:51] LABS: Hepatitis B Surface Antigen Non-Reactive (Nonreactive)
--- NOTE | 2021-11-24 11:04 | PC.CHAP ---
Pastoral Care Encounter/Spiritual Assessment Type of Contact [] Declined visitor use assistant visit [] Patient/Family/Request visit [] Outpatient visit [] Follow-up visit [] Physician referral [] Code/Alert [x] Routine visit [] Staff referral [] Actively dying [] Patient sleeping [] Family support [] [] Out of room [] Palliative care [] [] Receiving care in room [] Pre-surgical visit [] Trauma [] Long length of stay [] ICU visit [] Other: Relational/Emotional Strength [x] Patient feels connected with others/family/visitors/staff [] Distress [] Loneliness/isolation [] Abandonment Spirituality of Patient [x [] There are Spiritual issues to be addressed Mental Telepathist Interventions [x] Prayer [] Active listening [x] Non-anxious presence [x] Spiritual/emotional support [] Crisis/trauma care [] Spiritual counseling [] Bereavement support [] Provided bereavement packet [] Provided Bible/devotional materials [] Provided toy/stuffed animal, coloring book to patient or family member [] Provided Communion [] Anointing/[place] [] Salvation [x] Completed spiritual assessment [] Other: Impact on Illness or Injury [] Angry [] Fearful [] Anxious [] Often cries [] Exhaustion [] Unable to work [] Unable to attend muslim [] Unable to walk/stand [] Unable to read [] Unable to drive [] Unable to eat/drink [] Unable to sleep [] Unable to be with family [] Patient intubated [] Other: Summary Time spent with patient 10 min
[2021-11-24] MEDS: acetaminophen 325 mg Tablet 650 MG PO (14:53)
[2021-11-24] MEDS: HYDROmorphone 1 mg/mL INJ 1 mL 0.5 MG IVP (17:45)
[2021-11-24] MEDS: lidocaine 1% INJ 20 mL 5 ML IV (17:46)
--- NOTE | 2021-11-24 18:37 | XRR_ITS ---
PROCEDURE INFORMATION: Exam: XR Chest Exam date and time: 11/24/2021 6:37 PM Age: 61 years old Clinical indication: Device placement; Chest tube; Additional info: Chest tube, lung expansion TECHNIQUE: Imaging protocol: XR of the chest. Views: 1 view. COMPARISON: CR XR chest 2V* [id number] 11/23/2021 4:21 PM FINDINGS: Tubes, catheters and devices: Right central line terminates in the right atrium. Lungs: No consolidation. Pleural spaces: Interval placement of a chest tube terminating at the left lung base. Interval resolution of moderate volume left pleural effusion. There is now a moderate volume pneumothorax measuring roughly 6 cm from the diaphragm to the base of the lung. Probable trace right pleural effusion. Heart/Mediastinum: Stable heart size. Bones/joints: Visualized osseous structures are intact. XR/XR chest 1V portable [id number] IMPRESSION: Interval placement of left chest tube terminating at the left lung base. Resolution of previously noted moderate sized left pleural effusion. New moderate volume pneumothorax noted at the left lung base.
--- NOTE | 2021-11-24 18:44 | P.PCN_ITS ---
Procedure/Consent Time out: Time Out Performed: Yes Consent: Consent for Procedure: Consent obtained from patient, Risks & Benefits reviewed and Agrees to proceed with procedure Procedure Narrative: PULMONARY AND CRITICAL CARE MEDICINE 14 LATVIAN PIGTAIL PLACEMENT and left pleural cavity Procedure: Ultrasound-guided 14 Dutch pigtail placement in left pleural cavity Ultrasound-guided thoracentesis Indication: Worsening left pleural effusion-patient with fevers-suspected empyema Therapeutic Case Manager(s): Camilo Urenar Consent: Obtained from patient and placed in chart Anesthesia: 15 cc 1% lidocaine without epinephrine Description: Left pleural was localized using ultrasound guidance and site marked accordingly. After chlorhexidine skin prep, area was draped in a sterile manner. 1% lidocaine was used for local anesthesia. 14 Dutch pigtail catheter was then inserted into the pleural space using Seldinger technique with return of 1500 cc of bloody fluid. Catheter was connected to underwater seal then sutured in place, and a sterile dressing applied. Ultrasound guidance used: Yes. Image saved to ultrasound machine yes. EBL: 10 cc Complications: Postprocedure chest x-ray showed resolution of previously noted moderate-sized left pleural effusion with a new moderate volume pneumothorax noted at the left lung base suggestive of trapped lung. We will obtain a CT chest for better visualization of left pleural pathology. Patient remains hemodynamically stable Acute Procedures Epistaxis Control: Time out performed: Yes
--- NOTE | 2021-11-24 19:06 | CTR_ITS ---
PROCEDURE INFORMATION: Exam: CT Chest Without Contrast; Diagnostic Exam date and time: 11/24/2021 7:06 PM Age: 61 years old Clinical indication: Shortness of breath; Prior surgery; Surgery type: Chest tube; Additional info: Trappedlung TECHNIQUE: Imaging protocol: Diagnostic computed tomography of the chest without contrast. Radiation optimization: All CT scans at this facility use at least one of these dose optimization techniques: automated exposure control; mA and/or kV adjustment per patient size (includes targeted exams where dose is matched to clinical indication); or iterative reconstruction. COMPARISON: CT chest con [id number] 06/13/2021 2:48 PM RADIATION DOSE METRICS: Total DLP (mGy-cm): 1035.16 FINDINGS: Tubes, catheters and devices: Interval placement of percutaneous left basilar chest tube with decreased left pleural fluid collection. Lungs: Partially calcified rounded atelectasis in the dependent portion of the posterior segment left lower lobe. Pleural spaces: Interval appearance of air within the left pleural space with prominent loculated left basilar pneumothorax and mild left apical pneumothorax with overall 30-40% left pneumothorax. Heart: Stable severe calcified coronary artery disease. Aorta: Unremarkable. No aortic aneurysm. Lymph nodes: Borderline bilateral axillary lymphadenopathy which may be reactive. Mild mediastinal adenopathy which may be reactive. Gallbladder and bile ducts: Surgical clips in the gallbladder fossa consistent with cholecystectomy. Adrenal glands: Left adrenal hyperplasia. Kidneys and ureters: Small vessel arterial calcifications in the renal joesph bilaterally which are often associated with chronic renal failure. Bones/joints: Moderate thoracic spondylosis. Levoscoliosis. Soft tissues: Unremarkable. CT/CT chest [facility] [id number] IMPRESSION: 1. Stable severe calcified coronary artery disease. 2. Interval placement of percutaneous left basilar chest tube with decreased left pleural fluid collection. 3. Interval appearance of air within the left pleural space with prominent loculated left basilar pneumothorax and mild left apical pneumothorax with overall 30-40% left pneumothorax. 4. Partially calcified rounded atelectasis in the dependent portion of the posterior segment left lower lobe. Large caliber double lumen right central line with tip over the atrial caval junction. 5. Small vessel arterial calcifications in the renal joesph bilaterally which are often associated with chronic renal failure. 6. Borderline bilateral axillary lymphadenopathy which may be reactive. 7. Mild mediastinal adenopathy which may be reactive.
[2021-11-24 19:43] LABS: Hematocrit 23.2 % (37.0-47.0); Hemoglobin 7.3 g/dL (11.5-15.3); Mean Corpuscular HGB Conc 31.5 g/dL (30.0-36.0); Mean Corpuscular Hemoglobin 33.3 pg (28.0-34.0); Mean Corpuscular Volume 105.9 fl (81-99); Platelet Count 176 10^3/cmm (130-400); Red Blood Count 2.19 10^6/uL (4.1-5.3); Red Cell Distribution Width 14.5 % (12.1-15.1); White Blood Count 7.3 10^3/uL (4.0-10.0)
--- NOTE | 2021-11-24 19:47 | PM.CONSULT ---
Providers/Reason For Consult Consulting Physician/Specialty*: Camilo Coffman MD / Pulmonary Critical Care Reason for Consult*: Worsening left pleural effusion presented with fevers-suspected empyema Requesting Physician: Marques Short MD Attending Physician: Angel Baez MD Primary Care Provider: Karen Bear MD History of Present Illness History of Present Illness Alesia Shaw is a 61 year old female is a 61-year-old female with past medical history of ESRD on hemodialysis via tunneled catheter with history of hypertension, type 2 diabetes HFpEF, 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 She has been on supplemental oxygen 2 to 8 L/min on prior hospitalizations. She also complained of productive cough and chronic diarrhea. Chest x-ray in the ER showed reaccumulation of left pleural effusion. EKG without acute ST-T wave changes troponin elevated at > 200. On admission patient has T-max 101.3. COVID PCR negative. She denied any fevers or chills at home, dysuria. She follows up with wound care clinic for grade 2 diabetic wound over right heel which has been healing well per notes review. She has a left sided pleural effusion which has been present since at least 06/2021 and has undergone thoracentesis in June 2021 and most recently on 11/19/21. Patient was seen by survival specialist on 11/16/2021 and had a chest x-ray which showed large left pleural effusion for which she came to my clinic on 11/19/2021 reporting that her shortness of breath is worse and she could not sleep. She underwent therapeutic thoracentesis and 1900 cc of blood-tinged straw-colored fluid drained. There was still about 400 to 600 cc of fluid which was not drained as patient is on hemodialysis and Lasix and expected to improve. cell count and differential 223 predominant mononuclear, pH 8, LDH 128, albumin 2.5, Gram stain and culture no organisms , ADA 10 and cytology with chronic inflammation with mesothelial cells. Her last known EF is at 25% Global hypokinesis with regional variation. On her last cardiology visit she reported that she stopped taking Entresto because of hyperkalemia and spironolactone due to diarrhea. declined life vest due to concern for intereference with tunneled cath, per her she is being considered for AICD placement nect month. On 11/16 Bumex dose was increased to 4mg BID and hydralazine was added 50mg TID. However patient currently taking Lasix 120mg BID instead of Bumex. Pulmonary consultation requested for thoracentesis in this patient with worsening left pleural effusion and fever spikes as there were concerns for empyema. -Patient seen at bedside today -Reported after thoracentesis on 11/19/2021 she felt better-but gradually her dyspnea got worse and she has to come to ER. She underwent hemodialysis on 11/22/2021 and today as well -Labs and other imaging reviewed Review of Systems General: Reports: 10 or more systems reviewed and unremarkable except in HPI and below Medications/Allergies Home Medications Medication Instructions Recorded Confirmed Last Taken Type Stump Foil Wrapper #1 ea 01/12/21 11/23/21 07/20/21 Rx carvedilol [Coreg] 25 mg PO BID 05/19/21 11/23/21 11/23/21 History RenaPlex-D 1 tab PO DAILY 06/13/21 11/23/21 11/23/21 History albuterol sulfate [ProAir HFA] 2 puff INHALATION Q4H PRN 06/13/21 11/23/21 07/20/21 History aspirin [Children's Aspirin] 81 mg PO DAILY 90 Days #90 tab 06/22/21 11/23/21 11/22/21 Rx clopidogrel 75 mg PO DAILY 90 Days #90 tab 06/22/21 11/23/21 11/23/21 Rx nitroglycerin 0.4 mg SUBLINGUAL Q5M PRN 30 Days 06/22/21 11/23/21 07/20/21 Rx #30 tab nystatin 100,000 unit/gram topical 1 applic TOPICAL BID #30 g 06/29/21 11/23/21 07/20/21 Rx cream dextromethorphan-guaifenesin 10 1 tab-cap PO Q8H PRN 07/30/21 11/23/21 Unknown History mg-200 mg capsule furosemide 80 mg tablet 120 mg PO 0800,1400 #270 tab 09/14/21 11/23/21 11/23/21 Rx levothyroxine 150 mcg tablet 150 mcg PO DAILY #30 tab 10/14/21 11/23/21 11/23/21 Rx promethazine 25 mg tablet 25 mg PO Q6H PRN #30 tab 10/14/21 11/23/21 Unknown Rx isosorbide mononitrate 120 mg 120 mg PO DAILY #30 tab 11/09/21 11/23/21 11/23/21 Rx tablet,extended release 24 hr doxazosin 2 mg tablet 8 mg PO BID tab 11/16/21 11/23/21 11/23/21 History hydralazine 50 mg tablet 50 mg PO TID #90 tab 11/16/21 11/23/21 11/23/21 Rx psyllium husk [Metamucil] 0.4 g PO DAILY 11/23/21 11/23/21 11/23/21 History Allergies Allergy/AdvReac Type Severity Reaction Status Date / Time Iodinated Contrast Media Allergy ALGY-Hives Verified 11/19/21 15:19 Current Medications Generic Name Dose Route Start Last Admin Trade Name Curtisq PRN Reason Stop Dose Admin Acetaminophen 650 mg 11/24/21 02:10 11/24/21 14:53 Acetaminophen 325 Mg Tablet PO 650 mg Q6H PRN Administration Mild/Mod Pain Or Temp >/= 101 Aspirin 81 mg 11/24/21 09:00 11/24/21 08:30 Aspirin 81 Mg Chew Tablet PO 81 mg DAILY SHELBY Administration Bumetanide 2 mg 11/24/21 02:15 11/24/21 14:52 Bumetanide 0.25 Mg/Ml Sdv 10 Ml IVP 2 mg Q12H SHELBY Administration Carvedilol 25 mg 11/24/21 09:00 11/24/21 17:25 Carvedilol 25 Mg Tablet PO 25 mg BID SHELBY Administration Clopidogrel Bisulfate 75 mg 11/24/21 09:00 11/24/21 08:30 Clopidogrel 75 Mg Tablet PO 75 mg DAILY SHELBY Administration Heparin Sodium (Porcine) 5,000 unit 11/24/21 02:15 11/24/21 14:52 Heparin 5,000 Unit/Ml Inj 1 Ml SUBCUT 5,000 unit Q12H SHELBY Administration Hydralazine HCl 10 mg 11/24/21 09:00 11/24/21 14:53 Hydralazine 10 Mg Tablet PO 10 mg TID SHELBY Administration Piperacillin Sod/Tazobactam 50 mls @ 12.5 mls/hr 11/24/21 10:00 11/24/21 13:02 Sod 3.375 gm/ Sodium Chloride IV Infused Q12H SHELBY Infusion Protocol Isosorbide Mononitrate 120 mg 11/24/21 09:00 11/24/21 08:30 Isosorbide Mononitrate Er 60 Mg Tablet PO 120 mg DAILY SHELBY Administration Levothyroxine Sodium 150 mcg 11/24/21 09:00 11/24/21 08:30 Levothyroxine 150 Mcg Tablet PO 150 mcg DAILY SHELBY Administration Multivitamins 1 each 11/24/21 09:00 11/24/21 08:33 N-Nusvipg-Dmrujqh C Tablet PO 1 each DAILY SHELBY Administration Nystatin 1 applic 11/24/21 09:00 11/24/21 17:32 Nystatin Cream 30 Gm TOPICAL 1 applic BID SHELBY Administration Pantoprazole Sodium 40 mg 11/24/21 09:00 11/24/21 08:[address] 40 Mg Tablet PO 40 mg DAILY SHELBY Administration Psyllium Hydrophilic Mucilloid 1 packet 11/24/21 09:00 11/24/21 08:30 Psyllium Powder Pkt PO 1 packet DAILY SHELBY Administration PFSH Acute PFSH: Medical History Acute bronchitis Anemia Aortic valve endocarditis Bacteremia due to Staphylococcus EKG done this morning revealed normal sinus rhythm with a left axis deviation. Voltage area for LVH. No significant ST-T changes. 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 Neuropathy Protein-energy malnutrition Septic arthritis of left ankle Surgical History Central vascular catheter in place upon arrival History of cholecystectomy History of colonoscopy with polypectomy 2017 History of left below knee amputation History of lumbar surgery Due to epidural abscess in March 2018 Peritoneal dialysis catheter in place removal 05/20/21 S/P hemodialysis catheter insertion Status post below-knee amputation of left lower extremity Family History Mother Cancer Uterine and breast cancer Father Diabetes Other CAD (coronary artery disease) Social History Smoking and tobacco status: never smoked Alcohol intake: current Alcohol intake frequency: holidays/special occasions only Female Reproductive History: Date of last menstrual period: 05/28/14 Vitals/I&O/Wt Last Vital Signs Temp 98.9 F 11/24/21 19:23 Pulse 71 11/24/21 19:23 Resp 18 11/24/21 19:23 BP 159/70 11/24/21 19:23 Pulse Ox 97 11/24/21 16:00 11/24/21 11/24/21 11/24/21 06:59 14:59 22:59 Intake Total 170 / 170 290 / 290 640 / 930 Output Total 2315 / 2315 Balance 170 / 170 290 / 290 -1675 / -1385 Weight last 48 hrs Weight 225 lb 1.471 oz Weight 210 lb Weight 209 lb Physical Exam Narrative: EXAM NARRATIVE: General: alert, NAD HEENT: conj clear, EOMI, PERRL, mmm, Neck: supple, no meningismus Heme: no cervical LAP Pulmonary: Reduced breath sounds on left lower lung zone Cardiovascular: rrr, nl s1s2, no mrg Abdomen: soft, nt, nd, no r/g, bs+ Extremities: Left BKA, pulses +, 1+ pitting pedal edema : no CVA tenderness Skin: intact, no rash MSK: no back or neck pain Neurologic: grossly intact Data Labs: Other Labs: Radiology Impressions Chest X-Ray 11/24/21 18:37 IMPRESSION: Interval placement of left chest tube terminating at the left lung base. Resolution of previously noted moderate sized left pleural effusion. New moderate volume pneumothorax noted at the left lung base. ADDENDUM: 11/24/211926 Findings were discussed Dr. Coffman at 11/24/2021 7:24 PM [employer] SYSTEM[employer]. Laboratory Results WBC 7.3 10^3/uL (4.0- 10.0) 11/24/21 19:33 RBC 2.19 10^6/uL (4.1 -5.3) L 11/24/21 19:33 Hgb 7.3 g/dL (11.5-15 .3) L 11/24/21 19: Hct 23.2 % (37.0-47.0 ) L 11/24/21 19: MCV 105.9 fl (81-99) H 11/24/21 19: MCH 33.3 pg (28.0-34. 0) 11/24/21: MCHC 31.5 g/dL (30.0-3 6.0) 11/24/21 19: RDW 14.5 % (12.1-15.1 ) 11/24/21 19: Plt Count 176 10^3/cmm (130 -400) 11/24/21 19: MPV 11.0 fL (7.4-10.4 ) H 11/24/21 19:33 Neut % (Auto) 85.1 % 11/23/21 18:35 Lymph % (Auto) 2.7 % 11/23/21 18:35 Hale % (Auto) 10.7 % 11/23/21 18:35 Eos % (Auto) 0.6 % 11/23/21 18:35 Baso % (Auto) 0.6 % 11/23/21 18:35 Neut # (Auto) 10.69 10^3/uL (1. 8-7.7) H 11/23/21 18:35 Lymph # (Auto) 0.3 10^3/uL (0.8- 4.8) L 11/23/21 18:35 Hale # (Auto) 1.4 10^3/uL (0.2- 0.9) H 11/23/21 18:35 Eos # (Auto) 0.1 10^3/uL (0.0- 0.8) 11/23/21 18:35 Baso # (Auto) 0.1 10^3/uL (0.0- 0.1) 11/23/21 18:35 Nucleated RBC % (a uto) 0 % 11/23/21 18:35 Nucleated RBCs # 0.0 /100WBC 11/23/21 18:35 Sodium 136 mmol/L (136-1 45) 11/23/21 18:35 Potassium 5.0 mmol/L (3.5-5 .1) 11/23/21 18:35 Chloride 90 mmol/L (98-107 ) L 11/23/21 18:35 Carbon Dioxide 31 mmol/L (22-29) H 11/23/21 18:35 Anion Gap 20.0 (5-19) H 11/23/21 18:35 BUN 27 mg/dL (6-20) H 11/23/21 18:35 Creatinine 5.4 mg/dL (0.5-0. 9) H 11/23/21 18:35 GFR Calculation 8.1 mL/min (90-13 0) L 11/23/21 18:35 Glucose 145 mg/dL (65-115 ) H 11/23/21 18:35 Calculated Osmolal ity 290 mOsm/kg (285- 295) 11/23/21 18:35 Calcium 9.6 mg/dL (8.5-10 .5) 11/23/21 18:35 Troponin T Baselin e 211 ng/L (0-10) H* 11/23/21 18:35 Troponin T 120 Min [place] 197.4 ng/L (0-10) H 11/23/21 20:19 Delta Troponin T -13.6 ABS# (0-10) L 11/23/21 20:19 Troponin T Hi Sens 6Hr 204.7 ng/L (0-10) H 11/24/21 00:35 Troponin T Hi Sens 6Hr Delta -6.3 ng/L (0-12) L 11/24/21 00:35 C-Reactive Protein 16.3 mg/L (0.0-4. 9) H 11/23/21 18:35 NT-Pro-B Natriuret Pep > 97611 pg/mL (0- 125) H 11/23/21 18:35 Procalcitonin 0.22 ng/mL (0-0.5 ) 11/23/21 18:35 Coronavirus 229E ( PCR) Not detected (NO T DETECT) 11/23/21 21:29 Hep Bs Antigen Non-reactive (No nreactive) 11/24/21 07:59 Hep Bs Antibody 3.9 (11.5-1000) L 11/24/21 07:59 Hepatitis C Antibo dy Non-reactive (No nreactive) 11/24/21 07:59 SARS-CoV-2 (PCR) Not detected (NO T DETECT) 11/23/21 21:29 SARS-CoV-2 Ag (Rap id) Negative (Negati ve) 11/23/21 19:32 Micro: Micro: Microbiology 11/24/21 09:05 C.difficile Toxin B Gene (PCR) - Fin al Stool Routine Col lection 11/23/21 20:19 Blood Culture - Pr eliminary Blood SPECIMEN [facility] 11/23/21 20:16 Blood Culture - Pr eliminary Blood SPECIMEN [facility] A&P Assessment and plan (1) Pleural effusion, left: Status: Acute (2) Fever: Status: Acute Qualifiers: Fever type: unspecified Qualified Code(s): R50.9 - Fever, unspecified (3) Ischemic cardiomyopathy: Status: Acute (4) ESRD (end stage renal disease): Status: Acute (5) Chronic kidney disease with end stage renal failure on dialysis: Status: Acute (6) Congestive heart failure: Status: Acute Qualifiers: Heart failure type: diastolic Heart failure chronicity: chronic Qualified Code(s): I50.32 - Chronic diastolic (congestive) heart failure #Recurrent left pleural effusion in patient with history of ESRD on hemodialysis and severe systolic heart failure with EF < 25% # -Patient underwent initial thoracentesis 06/20/2021 which showed total protein 4.1 and LDH 104 -on 11/19/2021 with worsening dyspnea and imaging on 11/16/2021 showing large left pleural effusion- -patient was on Plavix for her CAD and was explained about possible bleeding and pneumothorax as potential complications-she underwent therapeutic thoracentesis and drained 1900 cc blood-tinged straw-colored fluid -Studies from 11/19/2021 pleural fluid showed cell count and differential 223 predominant mononuclear, pH 8, LDH 128, albumin 2.5, Gram stain and culture no organisms , ADA 10 and cytology with chronic inflammation with mesothelial cells. -Again presented this visit with fevers and again worsening left pleural effusion-suspect empyema due to recent thoracentesis -Bedside ultrasound showed fibrinous strands with moderate pleural effusion-initial aspiration showed cloudy bloody fluid-and so 14 [place] pigtail was placed and connected to Pleur-evac and collected 1500 cc bloody dark maroon blood-consistent with possible hemothorax and postprocedure imaging showed atelectatic left lower base with moderate volume pneumothorax at left lung base suggesting lung entrapment -Also ordered CT chest for better visualization of pleural pathology and may need surgical consultation if it is a trapped lung -Fluid sent for analysis, cultures Gram stain, cytology -Post procedure CBC showed hemoglobin 7.323; yesterday during admission 9.02/07 -There is no active bleeding noted-I will repeat CBC in 3 to 4 hours and transfuse 1 unit of PRBC if there is a gradual drop to keep H&H greater than 7/ -Patient is hemodynamically stable and saturating 99% on 3 L Recommendations conveyed to RN, RT, hospitalist taking care of the patient Consult Attestations Medical Necessity Statement: Deferred to hospitalist Time Spent in Patient Care: Greater than 35 minutes (>than 50% of time spent in counselling and/or direct pt care on unit). Critical Care Time: Critical Care Time (min): 70 Coding Level of Care Code Acute Wash Operator for g Fwd Diagnoses Pleural effusion, left J90 Fever R50.9 Fever type: unspecified Ischemic cardiomyopathy I25.5 ESRD (end stage renal disease) N18.6 Chronic kidney disease with end stage renal failure on dialysis N18.6; Z99.2 Congestive heart failure I50.32 Heart failure type: diastolic Heart failure chronicity: chronic
[2021-11-24 20:09] LABS: Apprearance, Body Fluid CLOUDY; Color, Body Fluid RED
[2021-11-24 20:10] LABS: Body Fluid Polynuclear #Cells 0.036; Body Fluid WBC 305 /uL; Monocytes # Body Fluid 0.269
[2021-11-24 20:27] LABS: Absolute Eosinophils 0.1 10^3/cmm (0.0-0.7); Absolute Segmented Neutrophil 5.8 10/cmm (1.6-7.1); Eosinophils 2 %; Lymphocytes 10 %; Lymphocytes Absolute 0.8 10^3/cmm (1.2-3.4); Monocytes Absolute 0.5 10^3/cmm (0.1-0.6); Segmented Neutrophils 80 %; Total Cells Counted 100 (0-100)
[2021-11-24 20:28] LABS: Absolute Neutrophil 5.8 10^3/cmm (1.4-6.5); Platelet Estimate Normal (Normal)
[2021-11-24] MEDS: fluticasone nasal spray 16gm Btl 1 SPRAY NASAL (21:21)
[2021-11-24] MEDS: HYDROmorphone 1 mg/mL INJ 1 mL 0.25 MG SUBCUT (21:22)
[2021-11-24 21:46] LABS: Albumin Body Fluid 2.2 g/dL; Amylase Body Fluid 18 U/L; Fluid Alkaline Phos. 34 IU/L; LDH Body Fluid 133 U/L
[2021-11-24 21:47] LABS: Cholesterol Body Fluid 50 mg/dL (0-200); Total Protein Pleural Fluid 3.7 g/dL; Triglycerides Body Fluid 24 mg/dL (0-150); Uric Acid Body Fluid 3 mg/dL
[2021-11-24 22:48] LABS: Basophils % 0.6 %; Eosinophils # 0.1 10^3/uL (0.0-0.8); Eosinophils % 1.3 %; Hematocrit 23.6 % (37.0-47.0); Hemoglobin 7.3 g/dL (11.5-15.3); Lymphocytes # 0.7 10^3/uL (0.8-4.8); Lymphocytes % 10.5 %; Mean Corpuscular HGB Conc 30.9 g/dL (30.0-36.0); Mean Corpuscular Hemoglobin 32.7 pg (28.0-34.0); Mean Corpuscular Volume 105.8 fl (81-99); Mean Platelet Volume 11.2 fL (7.4-10.4); Monocytes # 0.7 10^3/uL (0.2-0.9); Monocytes % 11.6 %; Neutrophils # 4.69 10^3/uL (1.8-7.7); Neutrophils % 75.5 %; Nucleated Red Blood Cells % 0 %; Platelet Count 168 10^3/cmm (130-400); Red Blood Count 2.23 10^6/uL (4.1-5.3); Red Cell Distribution Width 14.6 % (12.1-15.1); White Blood Count 6.2 10^3/uL (4.0-10.0)
[2021-11-25] VITALS (18 sets, daily range): BP systolic 131–167; BP diastolic 61–81; PULSE 66–74; RESP 16–22; TEMP 36.7–37.3; O2SAT 94–100
[2021-11-25] MEDS: bumetanide 0.25 mg/mL SDV 10 mL 2 MG IVP ×2 (02:19→13:33)
[2021-11-25] MEDS: heparin 5,000 unit/mL INJ 1 mL 5000 UNIT SUBCUT ×2 (02:19→13:33)
[2021-11-25 02:31] LABS: Iron 21 ug/dL (37-145); Percent Saturation 15.9 % (20-50); Total Iron Binding Capacity 132 mcg/dl; Unsaturated Iron Binding 111 ug/dL (112-347)
[2021-11-25] MEDS: HYDROmorphone 1 mg/mL INJ 1 mL 0.25 MG SUBCUT (02:36)
[2021-11-25 02:47] LABS: Folate Level 12.2 ng/mL (4.8-37.3); Vitamin B12 394 pg/mL (232-1245)
[2021-11-25] MEDS: sodium chloride 0.9% (100 ml) 100 ML 150 ML (06:00)
--- NOTE | 2021-11-25 06:00 | XR_ITS ---
WS: [id number] XR chest 1V portable [id number] REASON FOR EXAM: pneumonia FINDINGS: Right transjugular vein dialysis catheter remains in position at the cavoatrial junction. Small left pleural effusion. Linear and reticular lung opacities in the right lower lung. No change f rom 11/24/2021. In the lower left pleural space. Previously demonstrated pneumothorax has decreased in volume compare d to 11/24/2021. Left pleural effusion persists. Areas of consolidative opacity in the left lower lung which in part are atelectasis. No other interval change or new finding. XR/XR chest 1V portable [id number] IMPRESSION: Left pneumothorax decreased in volume. Otherwise stable abnormal chest.
[2021-11-25] MEDS: ondansetron 2 mg/ML SDV 2 mL 4 MG IVP (06:02)
[2021-11-25 06:20] LABS: Basophils # 0.1 10^3/uL (0.0-0.1); Basophils % 0.8 %; Eosinophils # 0.1 10^3/uL (0.0-0.8); Eosinophils % 1.7 %; Hematocrit 26.3 % (37.0-47.0); Hemoglobin 8.2 g/dL (11.5-15.3); Lymphocytes # 0.7 10^3/uL (0.8-4.8); Lymphocytes % 8.6 %; Mean Corpuscular HGB Conc 31.2 g/dL (30.0-36.0); Mean Corpuscular Hemoglobin 32.9 pg (28.0-34.0); Mean Corpuscular Volume 105.6 fl (81-99); Mean Platelet Volume 11.2 fL (7.4-10.4); Monocytes # 1.2 10^3/uL (0.2-0.9); Neutrophils # 5.66 10^3/uL (1.8-7.7); Neutrophils % 73.4 %; Nucleated Red Blood Cells % 0 %; Platelet Count 188 10^3/cmm (130-400); Red Blood Count 2.49 10^6/uL (4.1-5.3); Red Cell Distribution Width 15.3 % (12.1-15.1); White Blood Count 7.7 10^3/uL (4.0-10.0)
[2021-11-25 06:54] LABS: Alanine Aminotransferase 7 U/L (0-33); Albumin Level 3.2 g/dL (3.5-5.2); Alkaline Phosphatase 102 IU/L (35-105); Anion Gap 20.4 (5-19); Aspartate Amino Transferase 13 U/L (0-32); Blood Urea Nitrogen 21 mg/dL (6-20); Calcium 8.1 mg/dL (8.5-10.5); Carbon Dioxide 26 mmol/L (22-29); Chloride 96 mmol/L (98-107); Globulin 3.2 g/dL (1.3-4.6); Glomerular Filtration Rate 10.8 mL/min (90-130); Glucose 80 mg/dL (65-115); Iron 24 ug/dL (37-145); Magnesium 1.9 mg/dL (1.7-2.3); Osmolality Calculated 288 mOsm/kg (285-295); Percent Saturation 18.4 % (20-50); Phosphorus 4.7 mg/dL (2.5-4.5); Potassium 4.4 mmol/L (3.5-5.1); Sodium 138 mmol/L (136-145); Total Bilirubin 0.8 mg/dL (0.15-1.2); Total Iron Binding Capacity 130 mcg/dl; Total Protein 6.4 g/dL (6.6-8.7); Unsaturated Iron Binding 106 ug/dL (112-347)
[2021-11-25 06:55] LABS: Calcium 7.9 mg/dL (8.5-10.5)
[2021-11-25 07:02] LABS: 25 Hydroxy Vitamin D 30 ng/mL (30-100)
[2021-11-25 07:07] LABS: Ferritin 1315 ng/mL (15-150)
--- NOTE | 2021-11-25 07:15 | P.PN_ITS ---
Subjective Subjective: Interval history: feels better s/p HD and thoracentesis. Medications: Reviewed: Yes Medication Review Details: Current Medications Acetaminophen (Acetaminophen 325 Mg Tablet) 650 mg PO Q6H PRN PRN Reason: Mild/Mod Pain Or Temp >/= 101 Last Admin: 11/24/21 14:53 Dose: 650 mg Documented by: Albuterol Sulfate (Albuterol 8 Gm Mdi) 2 puff INHALATION Q4H PRN PRN Reason: Shortness Of Breath Aspirin (Aspirin 81 Mg Chew Tablet) 81 mg PO DAILY [facility] Last Admin: 11/24/21 08:30 Dose: 81 mg Documented by: Bumetanide (Bumetanide 0.25 Mg/Ml Sdv 10 Ml) 2 mg IVP Q12H [facility] Last Admin: 11/25/21 02:19 Dose: 2 mg Documented by: Carvedilol (Carvedilol 25 Mg Tablet) 25 mg PO BID [facility] Last Admin: 11/24/21 17:25 Dose: 25 mg Documented by: Clopidogrel Bisulfate (Clopidogrel 75 Mg Tablet) 75 mg PO DAILY [facility] Last Admin: 11/24/21 08:30 Dose: 75 mg Documented by: Epoetin Stephan (Epoetin Stephan 1000 Unit/0.05 Ml (Esrd)) 6,000 unit HE DAILY PRN PRN Reason: EACH DIALYSIS SESSION Stop: 12/01/21 07:52 Fluticasone Propionate (Fluticasone Nasal [place] 16gm Btl) 1 spray NASAL DAILY [facility] Last Admin: 11/24/21 21:21 Dose: 1 spray Documented by: Heparin Sodium (Porcine) (Heparin 5,000 Unit/Ml Inj 1 Ml) 5,000 unit SUBCUT Q12H [facility] Last Admin: 11/25/21 02:19 Dose: 5,000 unit Documented by: Hydralazine HCl (Hydralazine 10 Mg Tablet) 10 mg PO TID [facility] Last Admin: 11/24/21 21:22 Dose: 10 mg Documented by: Hydromorphone HCl (Hydromorphone 1 Mg/Ml Inj 1 Ml) 0.25 mg SUBCUT Q6H PRN PRN Reason: PAIN Last Admin: 11/25/21 02:36 Dose: 0.25 mg Documented by: Piperacillin Sod/Tazobactam (Sod 3.375 gm/ Sodium Chloride) 50 mls @ 12.5 mls/hr IV Q12H [facility]; Protocol Last Infusion: 11/25/21 01:00 Dose: Infused Documented by: Albumin Human (Albumin) 12.5 gm in 50 mls @ 60 mls/hr IV PRN PRN PRN Reason: Hypotension and/or symptomatic Isosorbide Mononitrate (Isosorbide Mononitrate Er 60 Mg Tablet) 120 mg PO DAILY [facility] Last Admin: 11/24/21 08:30 Dose: 120 mg Documented by: Levothyroxine Sodium (Levothyroxine 150 Mcg Tablet) 150 mcg PO DAILY [facility] Last Admin: 11/24/21 08:30 Dose: 150 mcg Documented by: Multivitamins (Y-Supzxyl-Onkxyie C Tablet) 1 each PO DAILY [facility] Last Admin: 11/24/21 08:33 Dose: 1 each Documented by: Naloxone HCl (Naloxone 0.4 Mg/Ml Sdv) 0.1 mg IVP Q2M PRN PRN Reason: OPIATERV Nitroglycerin (Nitroglycerin 0.4 Mg Sublingual Tablet) 0.4 mg SUBLINGUAL Q5M PRN PRN Reason: Chest Pain Non-Formulary Medication (Dextromethorphan-Guaifenesin [Coricidin Hbp Chest Lukas-Cough]) 1 tab-cap PO Q8H PRN PRN Reason: Cough Nystatin (Nystatin Cream 30 Gm) 1 applic TOPICAL BID [facility] Last Admin: 11/24/21 17:32 Dose: 1 applic Documented by: Ondansetron HCl (Ondansetron 2 Mg/Ml Sdv 2 Ml) 4 mg IVP Q8H PRN PRN Reason: vomiting, or N/V if npo Last Admin: 11/25/21 06:02 Dose: 4 mg Documented by: Pantoprazole Sodium (Pantoprazole Dr 40 Mg Tablet) 40 mg PO DAILY [facility] Last Admin: 11/24/21 08:30 Dose: 40 mg Documented by: Promethazine HCl (Promethazine 25 Mg Tablet) 25 mg PO Q6H PRN PRN Reason: Nausea And Vomiting Psyllium Hydrophilic Mucilloid (Psyllium Powder Pkt) 1 packet PO DAILY [facility] Last Admin: 11/24/21 08:30 Dose: 1 packet Documented by: Vitals/I&O/Wt Last Vital Signs Temp 98.8 F 11/25/21 07:08 Pulse 72 11/25/21 07:08 Resp 18 11/25/21 07:08 BP 156/71 11/25/21 07:08 Pulse Ox 98 11/25/21 07:08 11/24/21 11/25/21 11/25/21 22:59 06:59 14:59 Intake Total 760 / 1050 330 / 1380 Output Total 2315 / 2315 300 / 2615 Balance -1555 / -1265 30 / -1235 Weight last 48 hrs Weight 102.1 kg Weight 95.254 kg Weight 94.801 kg Physical Exam Narrative: EXAM NARRATIVE: comfortable, NARD in bed vs note heent- nc/at, eomi, anicteric neck supple lungs dull bases and crackles, left sided chest tube heart- s1, s2, reg abd soft, nt, nd, + bs ext- left BKA, rt sided edema neuro- a,a, o x 3 access- rt sided permacath Data : 11/25/21 05:17 11/25/21 05:17 Micro: Microbiology 11/23/21 20:16 Blood Culture - Preliminary Blood NEGATIVE TO DATE 11/23/21 20:19 Blood Culture - Preliminary Blood NEGATIVE TO DATE 11/24/21 09:05 C.difficile Toxin B Gene (PCR) - Final Stool Routine Collection A&P Additional A&P Information 61 yr old female 1. pleural effusion- s/p -thoracentesis and 14 [place] pigtail was placed and connected to Pleur-evac and collected 1500 cc bloody dark maroon blood- consistent with possible hemothorax and postprocedure imaging showed atelectatic left lower base with moderate volume pneumothorax at left lung base suggesting lung entrapment - q pna - renal dose abx 2. acute on chronic systolic CHF-refused life vest- per cardiology- elevated BNP noted 3. ESRD- HD MWF- s/p HD yesterday 3.5 hrs, 2k, remove 1.9l -check vit d, pth 96, phos= 4.7 -repeat HD in am 4. htn- monitor w/ fluid removal 5. anemia- ferritin 1315- no iv iron - GARRETT seen and examined w/ RN- telehealth visit Attestations Medical Necessity Statement*: esrd, pleural effusions Time Spent in Patient Care: 16 - 35 minutes Coding Level of Care Code Acute Banking Pin Adjuster for Chg Jay
[2021-11-25] MEDS: b-complex-vitamin c Tablet 1 EACH PO (08:46)
[2021-11-25] MEDS: pantoprazole DR 40 mg Tablet PO (08:46)
[2021-11-25] MEDS: aspirin 81 mg Chew Tablet PO (08:46)
[2021-11-25] MEDS: piperacillin-tazobactam 3.375 GM in sodium chloride 0.9% (plus) 50 ML IV ×2 (08:46→21:00)
[2021-11-25] MEDS: carvedilol 25 mg Tablet PO ×2 (08:46→17:06)
[2021-11-25] MEDS: isosorbide mononitrate ER 60 mg Tablet 120 MG PO (08:46)
[2021-11-25] MEDS: levothyroxine 150 mcg Tablet PO (08:46)
[2021-11-25] MEDS: hyDRALAzine 10 mg Tablet PO ×3 (08:46→21:00)
[2021-11-25] MEDS: fluticasone nasal spray 16gm Btl 1 SPRAY NASAL (08:46)
[2021-11-25] MEDS: nystatin cream 30 gm 1 APPLIC TOPICAL ×2 (09:01→17:16)
[2021-11-25] MEDS: psyllium powder Pkt 1 PACKET PO (09:01)
[2021-11-25] MEDS: HYDROmorphone 1 mg/mL INJ 1 mL 0.25 MG IVP ×3 (09:14→21:08)
[2021-11-25 14:40] LABS: Add Urine Microscopic? YES; Bilirubin Urine Neg (Negative); Blood Urine Neg (Negative); Glucose Urine UA 2+ (Normal); Ketones Urine Negative (Negative); Leukocyte Esterase Urine Negative (Negative); Nitrate Urine Negative (Negative); Protein Urine 3+ (Negative); Urine Appearance Clear (CLEAR); Urine Color Yellow (Yellow); Urobilinogen Urine Norm (Negative); pH Urine 9 (5-7)
[2021-11-25 14:41] LABS: Squamous Epithelial Cell Urine 15-25 /hpf (0-5)
[2021-11-25 14:42] LABS: Add Urine Culture? No; Bacteria Urine TRACE /hpf
--- NOTE | 2021-11-25 17:17 | PM.PN ---
Subjective Subjective: Interval history: Patient feels a little better. Underwent thoracentesis with placement of thoracostomy tube. Feels like dyspnea is improved. Appetite fair Medications: Reviewed: Yes Vitals/I&O/Wt Last Vital Signs Temp 98.1 F 11/25/21 15:28 Pulse 72 11/25/21 15:28 Resp 18 11/25/21 15:28 BP 132/75 11/25/21 15:28 Pulse Ox 94 11/25/21 15:28 11/25/21 11/25/21 11/25/21 06:59 14:59 22:59 Intake Total 330 / 1380 530 / 530 Output Total 300 / 2615 Balance 30 / -1235 530 / 530 Weight last 48 hrs Weight 102.1 kg Weight 95.254 kg Weight 94.801 kg Physical Exam Narrative: EXAM NARRATIVE: Chronically ill, cooperative, pleasant, not in acute distress Const: COMMON NORMALS: patient oriented x3 and alert HENMT: COMMON NORMALS: normocephalic, atraumatic and moist oral mucous membranes HEAD & SCALP: normocephalic and atraumatic Eye: COMMON NORMALS: Equal, round and reactive pupils present, EOMs intact bilaterally and no scleral icterus PUPIL: Yes Equal, round and reactive pupils present Neck/C-Spine: COMMON NORMALS: full ROM, supple and no JVD Chest: OTHER: left side chest tube in place Resp: COMMON NORMALS: normal respiratory effort and clear to auscultation bilaterally AUSCULTATION: clear to auscultation bilaterally Cardio: COMMON NORMALS: no JVD, regular rate, regular rhythm, No clicks present (Cardio) and No murmurs present (Cardio) RATE: regular rate RHYTHM: regular rhythm GI: COMMON NORMALS: Soft to palpation PALPATION: Yes Soft to palpation, No Tenderness to palpation present (GI) and No Guarding due to palpation present (GI) Extremity: COMMON NORMALS: normal to inspection and no clubbing, cyanosis or edema Neuro: COMMON NORMALS: patient oriented x3, moves all extremities and no sensory deficits noted SENSORIUM/ORIENTATION: Yes alert Psych: COMMON NORMALS: cooperative, normal affect, speech normal and activity/motor behavior normal SPEECH: Yes normal speech Skin: COMMON NORMALS: no rashes or lesions noted, no wounds and turgor normal GENERAL SKIN EXAM: no rashes or lesions noted and turgor normal Data : 11/25/21 05:17 11/25/21 05:17 Micro: Microbiology 11/25/21 13:16 Bacterial Antigens - Final Urine Kidney 11/24/21 19:00 Gram Stain - Final Pleural Fluid Anaerobic Culture - Preliminary 11/25/21 13:16 Legionella Urinary Antigen - Final Urine,Clean Catch 11/23/21 20:16 Blood Culture - Preliminary Blood NEGATIVE TO DATE 11/23/21 20:19 Blood Culture - Preliminary Blood NEGATIVE TO DATE 11/24/21 09:05 C.difficile Toxin B Gene (PCR) - Final Stool Routine Collection A&P Assessment and plan (1) Pleural effusion: Recurrent left sided pleural effusion as noted. Appreciate pulmonary input. Patient underwent left sided thoracentesis as noted with thoracostomy tube in place. Pleural fluid sent for cell count, cytology and culture. 1500 cc of bloody pleural fluid removed. Continue empiric antibiotic coverage - febrile on arrival Continue supplemental oxygen, pain management Monitor closely CTS consult placed after discussing with pulm Status: Acute (2) Ischemic cardiomyopathy: Patient with cardiomyopathy and EF of 25 percent Recd IV bumex Switch to PO bumex Continue to monitor closely Status: Acute (3) Hypoxemia: as above Status: Acute (4) Chronic kidney disease with end stage renal failure on dialysis: Appreciate nephrology consult- dialysis per nephrology Status: Acute (5) Diabetes: Continue current monitoring and management Status: Acute Qualifiers: Chronic kidney disease stage: on chronic dialysis Diabetes mellitus complication detail: with chronic kidney disease Diabetes mellitus complication status: with kidney complications Diabetes mellitus [facility] insulin use: unspecified [facility] insulin use status Diabetes mellitus type: type 2 Qualified Code(s): E11.22 - Type 2 diabetes mellitus with diabetic chronic kidney disease; N18.6 - End stage renal disease; Z99.2 - Dependence on renal dialysis Attestations Medical Necessity Statement*: Patient requires continuing hospitalization for management of recurrent pleural effusion, fever, hypoxia, and renal failure as well as ischemic cardiomyopathy Coding Level of Care Code Acute Debrander for g Fwd Exam Comprehensive Diagnoses Pleural effusion J90 Ischemic cardiomyopathy I25.5 Hypoxemia R09.02 Chronic kidney disease with end stage renal failure on dialysis N18.6; Z99.2 Diabetes E11.22; N18.6; Z99.2 Chronic kidney disease stage: on chronic dialysis Diabetes mellitus complication detail: with chronic kidney disease Diabetes mellitus complication status: with kidney complications Diabetes mellitus [facility] insulin use: unspecified 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
[2021-11-25] MEDS: HYDROcodone-acetaminophen 7.5-325 mg Tablet 1 TAB PO (20:59)
[2021-11-26] VITALS (15 sets, daily range): BP systolic 98–166; BP diastolic 70–78; PULSE 60–102; RESP 16–20; TEMP 36.7–37; O2SAT 93–99
[2021-11-26] MEDS: heparin 5,000 unit/mL INJ 1 mL 5000 UNIT SUBCUT ×2 (02:36→13:13)
[2021-11-26] MEDS: HYDROcodone-acetaminophen 7.5-325 mg Tablet 1 TAB PO ×3 (02:39→20:02)
[2021-11-26 05:34] LABS: Basophils # 0.1 10^3/uL (0.0-0.1); Basophils % 0.9 %; Eosinophils # 0.3 10^3/uL (0.0-0.8); Hematocrit 25.3 % (37.0-47.0); Lymphocytes # 1.1 10^3/uL (0.8-4.8); Lymphocytes % 13.3 %; Mean Corpuscular HGB Conc 31.6 g/dL (30.0-36.0); Mean Corpuscular Hemoglobin 32.8 pg (28.0-34.0); Mean Corpuscular Volume 103.7 fl (81-99); Mean Platelet Volume 11.4 fL (7.4-10.4); Monocytes # 1.2 10^3/uL (0.2-0.9); Monocytes % 14.8 %; Neutrophils # 5.46 10^3/uL (1.8-7.7); Neutrophils % 66.4 %; Nucleated Red Blood Cells % 0 %; Platelet Count 205 10^3/cmm (130-400); Red Blood Count 2.44 10^6/uL (4.1-5.3); Red Cell Distribution Width 15.1 % (12.1-15.1); White Blood Count 8.2 10^3/uL (4.0-10.0)
[2021-11-26 05:56] LABS: Alanine Aminotransferase 7 U/L (0-33); Alkaline Phosphatase 111 IU/L (35-105); Anion Gap 18.6 (5-19); Aspartate Amino Transferase 12 U/L (0-32); Blood Urea Nitrogen 32 mg/dL (6-20); Carbon Dioxide 26 mmol/L (22-29); Chloride 97 mmol/L (98-107); Globulin 3.4 g/dL (1.3-4.6); Glomerular Filtration Rate 8.1 mL/min (90-130); Glucose 149 mg/dL (65-115); Magnesium 2.2 mg/dL (1.7-2.3); Osmolality Calculated 294 mOsm/kg (285-295); Phosphorus 5.9 mg/dL (2.5-4.5); Potassium 4.6 mmol/L (3.5-5.1); Sodium 137 mmol/L (136-145); Total Bilirubin 0.6 mg/dL (0.15-1.2); Total Protein 6.4 g/dL (6.6-8.7)
[2021-11-26] MEDS: psyllium powder Pkt 1 PACKET PO (08:42)
[2021-11-26] MEDS: isosorbide mononitrate ER 60 mg Tablet 120 MG PO (08:43)
[2021-11-26] MEDS: carvedilol 25 mg Tablet PO ×2 (08:43→17:27)
[2021-11-26] MEDS: bumetanide 1 mg Tablet 2 MG PO (08:43)
[2021-11-26] MEDS: hyDRALAzine 10 mg Tablet PO ×3 (08:43→20:03)
[2021-11-26] MEDS: fluticasone nasal spray 16gm Btl 1 SPRAY NASAL (08:48)
--- NOTE | 2021-11-26 08:56 | PC.SOCIAL ---
IMM Update Pg. 2 of IMM updated and reviewed with patient, who verbalized understanding. Copy provided.
[2021-11-26] MEDS: nystatin cream 30 gm 1 APPLIC TOPICAL ×2 (09:20→17:27)
[2021-11-26] MEDS: HYDROmorphone 1 mg/mL INJ 1 mL 0.25 MG IVP ×2 (09:57→18:39)
--- NOTE | 2021-11-26 11:18 | P.PN_ITS ---
Subjective Subjective: Interval history: Seen and examined on dialysis. Tolerating treatment insistent that we only remove 1.5L of UF. No edema and no other hypervolemic Sx. No uremic Sx Feels better after thoracentesis Medications: Reviewed: Yes Medication Review Details: Current Medications Acetaminophen (Acetaminophen 325 Mg Tablet) 650 mg PO Q6H PRN PRN Reason: Mild/Mod Pain Or Temp >/= 101 Last Admin: 11/24/21 14:53 Dose: 650 mg Documented by: Albuterol Sulfate (Albuterol 8 Gm Mdi) 2 puff INHALATION Q4H PRN PRN Reason: Shortness Of Breath Aspirin (Aspirin 81 Mg Chew Tablet) 81 mg PO DAILY [facility] Last Admin: 11/24/21 08:30 Dose: 81 mg Documented by: Bumetanide (Bumetanide 0.25 Mg/Ml Sdv 10 Ml) 2 mg IVP Q12H [facility] Last Admin: 11/25/21 02:19 Dose: 2 mg Documented by: Carvedilol (Carvedilol 25 Mg Tablet) 25 mg PO BID [facility] Last Admin: 11/24/21 17:25 Dose: 25 mg Documented by: Clopidogrel Bisulfate (Clopidogrel 75 Mg Tablet) 75 mg PO DAILY [facility] Last Admin: 11/24/21 08:30 Dose: 75 mg Documented by: Epoetin Stehpan (Epoetin Stephan 1000 Unit/0.05 Ml (Esrd)) 6,000 unit HE DAILY PRN PRN Reason: EACH DIALYSIS SESSION Stop: 12/01/21 07:52 Fluticasone Propionate (Fluticasone Nasal [place] 16gm Btl) 1 spray NASAL DAILY [facility] Last Admin: 11/24/21 21:21 Dose: 1 spray Documented by: Heparin Sodium (Porcine) (Heparin 5,000 Unit/Ml Inj 1 Ml) 5,000 unit SUBCUT Q12H [facility] Last Admin: 11/25/21 02:19 Dose: 5,000 unit Documented by: Hydralazine HCl (Hydralazine 10 Mg Tablet) 10 mg PO TID [facility] Last Admin: 11/24/21 21:22 Dose: 10 mg Documented by: Hydromorphone HCl (Hydromorphone 1 Mg/Ml Inj 1 Ml) 0.25 mg SUBCUT Q6H PRN PRN Reason: PAIN Last Admin: 11/25/21 02:36 Dose: 0.25 mg Documented by: Piperacillin Sod/Tazobactam (Sod 3.375 gm/ Sodium Chloride) 50 mls @ 12.5 mls/hr IV Q12H [facility]; Protocol Last Infusion: 11/25/21 01:00 Dose: Infused Documented by: Albumin Human (Albumin) 12.5 gm in 50 mls @ 60 mls/hr IV PRN PRN PRN Reason: Hypotension and/or symptomatic Isosorbide Mononitrate (Isosorbide Mononitrate Er 60 Mg Tablet) 120 mg PO DAILY [facility] Last Admin: 11/24/21 08:30 Dose: 120 mg Documented by: Levothyroxine Sodium (Levothyroxine 150 Mcg Tablet) 150 mcg PO DAILY [facility] Last Admin: 11/24/21 08:30 Dose: 150 mcg Documented by: Multivitamins (S-Njjtmoj-Lunrvng C Tablet) 1 each PO DAILY [facility] Last Admin: 11/24/21 08:33 Dose: 1 each Documented by: Naloxone HCl (Naloxone 0.4 Mg/Ml Sdv) 0.1 mg IVP Q2M PRN PRN Reason: OPIATERV Nitroglycerin (Nitroglycerin 0.4 Mg Sublingual Tablet) 0.4 mg SUBLINGUAL Q5M PRN PRN Reason: Chest Pain Non-Formulary Medication (Dextromethorphan-Guaifenesin [Coricidin Hbp Chest Lukas-Cough]) 1 tab-cap PO Q8H PRN PRN Reason: Cough Nystatin (Nystatin Cream 30 Gm) 1 applic TOPICAL BID [facility] Last Admin: 11/24/21 17:32 Dose: 1 applic Documented by: Ondansetron HCl (Ondansetron 2 Mg/Ml Sdv 2 Ml) 4 mg IVP Q8H PRN PRN Reason: vomiting, or N/V if npo Last Admin: 11/25/21 06:02 Dose: 4 mg Documented by: Pantoprazole Sodium (Pantoprazole Dr 40 Mg Tablet) 40 mg PO DAILY [facility] Last Admin: 11/24/21 08:30 Dose: 40 mg Documented by: Promethazine HCl (Promethazine 25 Mg Tablet) 25 mg PO Q6H PRN PRN Reason: Nausea And Vomiting Psyllium Hydrophilic Mucilloid (Psyllium Powder Pkt) 1 packet PO DAILY [facility] Last Admin: 11/24/21 08:30 Dose: 1 packet Documented by: Vitals/I&O/Wt Last Vital Signs Temp 98.2 F 11/26/21 11:16 Pulse 66 11/26/21 11:16 Resp 16 11/26/21 11:16 BP 98/70 11/26/21 11:16 Pulse Ox 96 11/26/21 11:16 11/25/21 11/26/21 11/26/21 22:59 06:59 14:59 Intake Total 120 / 650 990 / 1640 240 / 240 Output Total 2049 / 2049 550 / 550 Balance -1930 / -1400 990 / -410 -310 / -310 Weight last 48 hrs Weight 104.099 kg Weight 102.1 kg Data : 11/26/21 04:52 11/26/21 04:52 Micro: Microbiology 11/24/21 19:00 Gram Stain - Final Pleural Fluid Anaerobic Culture - Preliminary Body Fluid Culture - Preliminary 11/25/21 13:16 Bacterial Antigens - Final Urine Kidney 11/25/21 13:16 Legionella Urinary Antigen - Final Urine,Clean Catch A&P Additional A&P Information 61 yr old female 1. pleural effusion- s/p -thoracentesis and 14 [place] pigtail was placed and connected to Pleur-evac and collected 1500 cc bloody dark maroon blood- consistent with possible hemothorax and postprocedure imaging showed atelectatic left lower base with moderate volume pneumothorax at left lung base suggesting lung entrapment - q pna - renal dose abx - I counseled her that we should consider decreasing her dry weight ie pulling more UF 2. acute on chronic systolic CHF-refused life vest- per cardiology- elevated BNP noted 3. ESRD- HD MWF- - seen and examined on dialysis today, plan next treatment on Monday - check vit d, pth 96, phos= 4.7 4. htn- monitor w/ fluid removal 5. anemia- ferritin 1315- no iv iron - GARRETT seen and examined w/ RN- telehealth visit Attestations Medical Necessity Statement*: eval for ESRD mgmt Coding Level of Care Code Acute Fixed Wing Aircraft Crew Chief for Gregorio Thompson
--- NOTE | 2021-11-26 12:03 | PM.MISC ---
Miscellaneous Note Purpose of Documentation: Ms. Shaw was in dialysis at the time of my visit to her room. I did confer with her during my visit to her room. I have also conferred with my colleague, Dr. Means from pulmonary medicine. I know her well from wound care services. She has a pigtail catheter in place in the left lower hemithorax from a chronic left effusion which, upon drainage, reveals what appears to be a portion of the left lower lobe which is trapped and unable to expand. I have been asked to give surgical opinion concerning potential for decortication. She has numerous comorbidities including chronic renal failure on hemodialysis, obesity, deconditioning, and cardiomyopathy with an ejection fraction of approximately 25%. Current plan after discussion with Dr. Means will be to continue management and then separately discharged with follow-up in my clinic. I will need to have a careful discussion with Ms. Shaw and her concerning benefits versus risk of decortication given her overall medical condition and numerous comorbidities. It appears with my conversation, that he also is a bit reticent to consider a major procedure. I will be off service until of next week.
[2021-11-26] MEDS: b-complex-vitamin c Tablet 1 EACH PO (13:13)
[2021-11-26] MEDS: pantoprazole DR 40 mg Tablet PO (13:13)
[2021-11-26] MEDS: levothyroxine 150 mcg Tablet PO (13:13)
[2021-11-26] MEDS: aspirin 81 mg Chew Tablet PO (13:13)
[2021-11-26] MEDS: piperacillin-tazobactam 3.375 GM in sodium chloride 0.9% (plus) 50 ML IV (13:14)
--- NOTE | 2021-11-26 13:58 | PM.PN ---
Subjective Subjective: Interval history: Patient feels better. Returned from dialysis. Dyspnea much improved. CT tube still in place. Pain better controlled Medications: Reviewed: Yes Vitals/I&O/Wt Last Vital Signs Temp 98.2 F 11/26/21 11:16 Pulse 66 11/26/21 11:16 Resp 16 11/26/21 11:16 BP 98/70 11/26/21 11:16 Pulse Ox 96 11/26/21 11:16 11/25/21 11/26/21 11/26/21 22:59 06:59 14:59 Intake Total 120 / 650 990 / 1640 240 / 240 Output Total 2049 / 2049 550 / 550 Balance -1930 / -1400 990 / -410 -310 / -310 Weight last 48 hrs Weight 104.099 kg Weight 102.1 kg Physical Exam Narrative: EXAM NARRATIVE: Patient alert, sitting on side of bed, chronically ill appearing Const: COMMON NORMALS: no acute distress, average body habitus, patient oriented x3 and alert HENMT: COMMON NORMALS: normocephalic, atraumatic and hearing grossly normal bilaterally HEAD & SCALP: normocephalic and atraumatic Eye: COMMON NORMALS: Equal, round and reactive pupils present, conjunctivae normal and no scleral icterus CONJUNCTIVA: Yes conjunctivae normal PUPIL: Yes Equal, round and reactive pupils present Neck/C-Spine: COMMON NORMALS: full ROM, supple, no JVD and Thyroid normal THYROID: Thyroid normal Chest: COMMONS NORMALS: normal inspection of the chest Resp: COMMON NORMALS: normal respiratory effort, No retractions and No use of accessory muscles Cardio: COMMON NORMALS: no JVD, regular rate and regular rhythm RATE: regular rate RHYTHM: regular rhythm GI: COMMON NORMALS: Normal to inspection, nondistended, normoactive bowel sounds present and no masses Extremity: COMMON NORMALS: full ROM OTHER: left BKA Neuro: COMMON NORMALS: patient oriented x3 and no sensory deficits noted SENSORIUM/ORIENTATION: Yes alert Psych: COMMON NORMALS: mental status grossly normal, cooperative and speech normal ATTITUDE: Yes calm SPEECH: Yes normal speech MOOD & AFFECT: Yes euthymic mood Skin: COMMON NORMALS: no rashes or lesions noted, no wounds, turgor normal and no petechiae GENERAL SKIN EXAM: no rashes or lesions noted and turgor normal Data : 11/26/21 04:52 11/26/21 04:52 Micro: Microbiology 11/24/21 19:00 Gram Stain - Final Pleural Fluid Anaerobic Culture - Preliminary Body Fluid Culture - Preliminary 11/25/21 13:16 Bacterial Antigens - Final Urine Kidney 11/25/21 13:16 Legionella Urinary Antigen - Final Urine,Clean Catch A&P Assessment and plan (1) Pleural effusion: Recurrent left sided pleural effusion as noted Patient underwent left sided thoracentesis as noted with thoracostomy tube in place. Pleural fluid sent for cell count, cytology and culture. 1500 cc of bloody pleural fluid removed on 11/25/21- cultures so far NG. Pathology reveals chronic inflammation, no malignant cells identified Continue empiric antibiotic coverage - febrile on arrival Continue supplemental oxygen, pain management Monitor closely CTS consult obtained with Dr Camacho- appreciate input Status: Acute (2) Ischemic cardiomyopathy: Patient with cardiomyopathy and EF of 25 percent On PO bumex Continue to monitor closely Status: Acute (3) Hypoxemia: as above Status: Acute (4) Chronic kidney disease with end stage renal failure on dialysis: Appreciate nephrology consult- dialysis per nephrology Status: Acute (5) Diabetes: Continue current monitoring and management Status: Acute Qualifiers: Chronic kidney disease stage: on chronic dialysis Diabetes mellitus complication detail: with chronic kidney disease Diabetes mellitus complication status: with kidney complications Diabetes mellitus detention insulin use: unspecified detention insulin use status Diabetes mellitus type: type 2 Qualified Code(s): E11.22 - Type 2 diabetes mellitus with diabetic chronic kidney disease; N18.6 - End stage renal disease; Z99.2 - Dependence on renal dialysis Attestations Medical Necessity Statement*: Patient requires ongoing hospitalization for management of her acute illness/medical issues, including recurrent pleural effusion, ESRD on dialysis and generalized weakness/hypoxia as well as ischemic cardiomyopathy Coding Level of Care Code Acute Lead Technical Writer for [facility] Diagnoses Pleural effusion J90 Ischemic cardiomyopathy I25.5 Hypoxemia R09.02 Chronic kidney disease with end stage renal failure on dialysis N18.6; Z99.2 Diabetes E11.22; N18.6; Z99.2 Chronic kidney disease stage: on chronic dialysis Diabetes mellitus complication detail: with chronic kidney disease Diabetes mellitus complication status: with kidney complications Diabetes mellitus detention insulin use: unspecified detention insulin use status Diabetes mellitus type: type 2
--- NOTE | 2021-11-26 14:07 | PC.HD ---
Dr Vazquez notified of fluid removal goal not met due to cramping and transient hypotension, and of early termination d/t diarrhea coming on.
--- NOTE | 2021-11-26 15:35 | PM.PN ---
Subjective Subjective: Interval history: The patient was seen and examined after she returned from dialysis. Her was at bedside. The patient appeared comfortable. 450 cc of serosanguineous fluid was noted in the pleural fluid drainage system. The patient appears comfortable. Chest x-ray from yesterday reviewed reaccumulation of pleural fluid which is expected in the setting of lung entrapment. The microbiology study from pleural fluid has been negative. Medications: Reviewed: Yes Vitals/I&O/Wt Last Vital Signs Temp 98.6 F 11/26/21 14:00 Pulse 67 11/26/21 14:00 Resp 18 11/26/21 14:00 BP 161/78 11/26/21 14:00 Pulse Ox 96 11/26/21 11:16 11/26/21 11/26/21 11/26/21 06:59 14:59 22:59 Intake Total 990 / 1640 760 / 760 Output Total 1136 / 1136 Balance 990 / -410 -376 / -376 Weight last 48 hrs Weight 238 lb 15.697 oz Weight 229 lb 8 oz Physical Exam Narrative: EXAM NARRATIVE: General: Patient is awake alert and oriented, in no distress. Neck: No JVD Respiratory: Auscultation: Reduced breath sound in the left posterior hemithorax, the breath sound is equal bilaterally otherwise, no wheezing or rhonchi Cardiovascular: Regular rate and rhythm, soft heart sounds, S1-S2 present, no murmur, edema in the right lower extremity Abdomen: Soft, nontender, mildly distended from obesity, positive bowel sound Musculoskeletal: Left below-knee amputation Skin: No rash Neuro: Mental status is normal, no gross motor deficit Data : 11/26/21 04:52 11/26/21 04:52 Micro: Microbiology 11/24/21 19:00 Gram Stain - Final Pleural Fluid Anaerobic Culture - Preliminary Body Fluid Culture - Preliminary 11/25/21 13:16 Urine Culture - Preliminary Urine,Clean Catch 11/25/21 13:16 Bacterial Antigens - Final Urine Kidney 11/25/21 13:16 Legionella Urinary Antigen - Final Urine,Clean Catch Attestation for Other Data: I personally reviewed and interpreted the following: Other data: I have reviewed the patient's laboratory, microbiologic and radiologic data. A&P Assessment and plan (1) Pleural effusion, left: This is a 61-year-old lady with recurrent left-sided pleural effusion. I had performed an extensive chart review for the patient. I had performed a thoracentesis in June 2021. At that time the pleural fluid analysis showed very minimally cellular pleural fluid. The patient had 3 lymphocytes and cell count analysis. Her LDH at that time was normal however the total protein was elevated. Postthoracentesis chest x-ray in June 2021 did reveal changes associated with pleural thickening. Since then, the patient has suffered from recurrent pleural effusion. The earliest time when I can see a normal chest x-ray was in November 2020. Between November and May the patient likely suffered from left-sided pleural space infection/inflammation. 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 The 2 other thoracentesis performed in November are consistent with lymphocyte predominant exudative pleural effusion. Exudation is determined by an elevated total protein count which can be present with trapped lung physiology. Post chest tube placement CT scan revealed thick pleural rind and basilar pneumothorax on the chest x-ray are both consistent with trapped lung physiology. There is no evidence of left-sided pleural space infection at this time. At least with MRSA. I do believe that the patient has dual pathology for the left-sided recurrent pleural effusion. The first pathology is that trapped lung which will cause recurrent but usually self-limiting pleural effusion as soon as the pleural drainage is removed. However, an additional component of fluid accumulation likely due to ESRD and heart failure is making the pleural effusion larger than what would be expected with only trapped lung physiology on the left side. The only way this can be fixed is by decortication which will allow for the expansion of the left lung and a position with the chest wall. However, the patient has a 25% ejection fraction and is of that vasculopath which does increase operative risk. Since the patient is comfortable, I am going to clamp the chest tube. We will obtain a chest x-ray tomorrow morning. The patient will likely have reaccumulation of the pleural fluid back. If the patient looks comfortable the chest tube can be discontinued at that point. When the patient leaves the hospital she will likely have pleural effusion. However as long as we can prevent a second etiology for worsening of the pleural effusion, i.e., heart failure and ESRD the patient will be able to stay out of the hospital. The patient tells me that she is still having urine output. She is on Bumex. Intensification of that may be beneficial. In the absence of that, dialysis more frequently may also be beneficial. In any case, the patient will follow-up with Dr. Camacho as outpatient and discuss the possibility of decortication in the future. Status: Acute Attestations Medical Necessity Statement*: Will defer to the primary team Coding Level of Care Code Acute Sales Representative Supervisor for Chg Fwd Diagnoses Pleural effusion, left J90
[2021-11-26] MEDS: heparin, porcine 1,000 unit/mL INJ 10 mL HE (17:28)
--- NOTE | 2021-11-26 18:43 | PC.NURSE ---
Clamped chest tube.
[2021-11-27] VITALS (13 sets, daily range): BP systolic 125–183; BP diastolic 47–77; PULSE 59–76; RESP 16–18; TEMP 36.1–37; O2SAT 90–100
[2021-11-27] MEDS: heparin 5,000 unit/mL INJ 1 mL 5000 UNIT SUBCUT ×2 (02:17→14:15)
[2021-11-27] MEDS: piperacillin-tazobactam 3.375 GM in sodium chloride 0.9% (plus) 50 ML IV (02:17)
[2021-11-27] MEDS: HYDROcodone-acetaminophen 7.5-325 mg Tablet 1 TAB PO ×3 (02:22→15:23)
[2021-11-27 05:30] LABS: Basophils # 0.1 10^3/uL (0.0-0.1); Eosinophils # 0.5 10^3/uL (0.0-0.8); Eosinophils % 6.1 %; Hematocrit 25.9 % (37.0-47.0); Lymphocytes # 1.4 10^3/uL (0.8-4.8); Lymphocytes % 17.6 %; Mean Corpuscular HGB Conc 30.9 g/dL (30.0-36.0); Mean Corpuscular Hemoglobin 32.3 pg (28.0-34.0); Mean Corpuscular Volume 104.4 fl (81-99); Mean Platelet Volume 11.1 fL (7.4-10.4); Monocytes # 1.1 10^3/uL (0.2-0.9); Monocytes % 14.7 %; Neutrophils % 59.9 %; Nucleated Red Blood Cells % 0 %; Platelet Count 231 10^3/cmm (130-400); Red Blood Count 2.48 10^6/uL (4.1-5.3); Red Cell Distribution Width 14.6 % (12.1-15.1); White Blood Count 7.7 10^3/uL (4.0-10.0)
[2021-11-27 05:46] LABS: Alanine Aminotransferase 7 U/L (0-33); Albumin Level 3.2 g/dL (3.5-5.2); Alkaline Phosphatase 118 IU/L (35-105); Aspartate Amino Transferase 10 U/L (0-32); Blood Urea Nitrogen 28 mg/dL (6-20); Carbon Dioxide 28 mmol/L (22-29); Chloride 98 mmol/L (98-107); Globulin 3.1 g/dL (1.3-4.6); Glomerular Filtration Rate 11.1 mL/min (90-130); Glucose 114 mg/dL (65-115); Magnesium 2.2 mg/dL (1.7-2.3); Osmolality Calculated 292 mOsm/kg (285-295); Phosphorus 4.8 mg/dL (2.5-4.5); Sodium 138 mmol/L (136-145); Total Bilirubin 0.5 mg/dL (0.15-1.2); Total Protein 6.3 g/dL (6.6-8.7)
[2021-11-27] MEDS: carvedilol 25 mg Tablet PO ×2 (08:53→16:53)
[2021-11-27] MEDS: bumetanide 1 mg Tablet 2 MG PO (08:53)
[2021-11-27] MEDS: levothyroxine 150 mcg Tablet PO (08:53)
[2021-11-27] MEDS: isosorbide mononitrate ER 60 mg Tablet 120 MG PO (08:53)
[2021-11-27] MEDS: hyDRALAzine 10 mg Tablet PO ×3 (08:53→21:30)
[2021-11-27] MEDS: b-complex-vitamin c Tablet 1 EACH PO (08:53)
[2021-11-27] MEDS: aspirin 81 mg Chew Tablet PO (08:53)
[2021-11-27] MEDS: pantoprazole DR 40 mg Tablet PO (08:53)
[2021-11-27] MEDS: psyllium powder Pkt 1 PACKET PO (08:54)
[2021-11-27] MEDS: fluticasone nasal spray 16gm Btl 1 SPRAY NASAL (08:59)
[2021-11-27] MEDS: nystatin cream 30 gm 1 APPLIC TOPICAL ×2 (09:02→16:53)
--- NOTE | 2021-11-27 10:00 | XRR_ITS ---
PROCEDURE INFORMATION: Exam: XR Chest Exam date and time: 11/27/2021 10:00 AM Age: 61 years old Clinical indication: Device placement; Chest tube; Additional info: Chest tube placement TECHNIQUE: Imaging protocol: XR of the chest. Views: 1 view. Total images: 1 COMPARISON: CR XR chest 1V portable [id number] 11/25/2021 5:24 AM FINDINGS: Tubes, catheters and devices: Tubes and catheters are unchanged from the prior exam. Lungs: Stable bilateral pleuroparenchymal disease. Pleural spaces: Residual pneumothorax noted on the left slightly improved. Heart/Mediastinum: Heart size is stable when compared to the prior exam. Bones/joints: Osseous structures are unchanged from the prior exam. XR/XR chest 1V portable [id number] IMPRESSION: 1. Tubes and catheters are unchanged from the prior exam. 2. Residual pneumothorax noted on the left slightly improved. 3. Stable bilateral pleuroparenchymal disease.
[2021-11-27] MEDS: HYDROmorphone 1 mg/mL INJ 1 mL 0.25 MG IVP ×2 (10:42→14:24)
[2021-11-27] MEDS: artificial tears Op Soln 15 mL Btl 1 DROP EYE-BOTH (11:20)
--- NOTE | 2021-11-27 12:20 | P.PN_ITS ---
Subjective Subjective: Interval history: Patient feels improved. Dyspnea has resolved. She has less pain. Chest tube is clamped. Medications: Reviewed: Yes Vitals/I&O/Wt Last Vital Signs Temp 97.9 F 11/27/21 11:59 Pulse 65 11/27/21 11:59 Resp 16 11/27/21 11:59 BP 148/47 11/27/21 11:59 Pulse Ox 90 11/27/21 11:59 11/26/21 11/27/21 11/27/21 22:59 06:59 14:59 Intake Total 530 / 1290 250 / 1540 240 / 240 Output Total 0 / 1136 Balance 530 / 154 250 / 404 240 / 240 Weight last 48 hrs Weight 108.4 kg Weight 104.099 kg Physical Exam Narrative: EXAM NARRATIVE: Patient in no distress, chronically ill appearing Const: COMMON NORMALS: patient oriented x3 HENMT: COMMON NORMALS: normocephalic and atraumatic HEAD & SCALP: nor mocephalic and atraumatic Eye: COMMON NORMALS: Equal, round and reactive pupils present and conjunctivae normal CONJUNCTIVA: Yes conjunctivae normal PUPIL: Yes Equal, round and reactive pupils present Neck/C-Spine: COMMON NORMALS: full ROM and supple Chest: OTHER: chest tube in place left chest Resp: COMMON NORMALS: normal respiratory effort, No use of accessory muscles and clear to auscultation bilaterally AUSCULTATION: clear to auscultation bilaterally Cardio: COMMON NORMALS: regular rate, regular rhythm, S1 normal heart sound present and S2 normal heart sound present RATE: regular rate RHYTHM: regular rhythm HEART SOUNDS: S1 normal heart sound present and S2 normal heart sound present GI: COMMON NORMALS: Soft to palpation, non-tender, No hepatosplenomegaly present and no masses PALPATION: Yes Soft to palpation and Yes No hepatosplenomegaly present Extremity: COMMON NORMALS: normal to inspection and full ROM OTHER: left BKA Neuro: COMMON NORMALS: patient oriented x3 and moves all extremities Psych: COMMON NORMALS: Normal thought process present and cooperative ATTITUDE: Yes calm MOOD & AFFECT: Yes euthymic mood THOUGHT PROCESS: Normal thought process present Skin: COMMON NORMALS: no rashes or lesions noted, no wounds and turgor normal GENERAL SKIN EXAM: no rashes or lesions noted and turgor normal Data : 11/27/21 04:47 11/27/21 04:47 Micro: Microbiology 11/25/21 13:16 Urine Culture - Final Urine,Clean Catch 11/24/21 19:00 Gram Stain - Final Pleural Fluid Anaerobic Culture - Preliminary Body Fluid Culture - Preliminary A&P Assessment and plan (1) Pleural effusion: Recurrent left sided pleural effusion as noted Patient underwent left sided thoracentesis as noted with thoracostomy tube in place. Pleural fluid sent for cell count, cytology and culture. 1500 cc of bloody pleural fluid removed on 11/25/21- cultures so far NG. Pathology reveals chronic inflammation, no malignant cells identified. Chest tube clamped- repeat CXR reveals residual pneumothorax and chest tube in place. Chest tube likely will be removed today or tomorrow. 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 Plan for decortication discussed and patient plans to F/U with Dr Camacho as outpatient. She is a high surgical risk as she has ischemic cardiomyopathy and CAD, stents with EF of 25 percent. Per patient, she has discussed ICD/defibrillator placement with her saw runner and she is a candidate for this as well She takes lasix 120 mg BID- will D/C bumex and resume home dose of lasix She still has urine output. Unfortunately patient unable to maximize fluid removal with dialysis as she does not tolerate it. Continue to monitor closely Zosyn discontinued. Afebrile, cultures negative Status: Acute (2) Ischemic cardiomyopathy: Patient with cardiomyopathy and EF of 25 percent On PO lasix- see above Continue to monitor closely Status: Acute (3) Hypoxemia: resolved- she is now on RA Status: Acute (4) Chronic kidney disease with end stage renal failure on dialysis: Appreciate nephrology consult- dialysis per nephrology Status: Acute (5) Diabetes: Continue current monitoring and management Status: Acute Qualifiers: Chronic kidney disease stage: on chronic dialysis Diabetes mellitus complication detail: with chronic kidney disease Diabetes mellitus complication status: with kidney complications Diabetes mellitus [facility] insulin use: unspecified [facility] insulin use status Diabetes mellitus type: type 2 Qualified Code(s): E11.22 - Type 2 diabetes mellitus with diabetic chronic kidney disease; N18.6 - End stage renal disease; Z99.2 - Dependence on renal dialysis Attestations Medical Necessity Statement*: Patient requires ongoing hospitalization for management of her acute medical problems including recurrent pleural effusion and ischemic cardiomyopaathy as well as ESRD on dialysis Coding Level of Care Code Acute Auto Body Mechanic Apprentice for Chg Fwd Exam Comprehensive Diagnoses Pleural effusion J90 Ischemic cardiomyopathy I25.5 Hypoxemia R09.02 Chronic kidney disease with end stage renal failure on dialysis N18.6; Z99.2 Diabetes E11.22; N18.6; Z99.2 Chronic kidney disease stage: on chronic dialysis Diabetes mellitus complication detail: with chronic kidney disease Diabetes mellitus complication status: with kidney complications Diabetes mellitus termite control representative insulin use: unspecified termite control representative insulin use status Diabetes mellitus type: type 2
[2021-11-27] MEDS: nitroglycerin 0.4 mg sublingual Tablet SUBLINGUAL ×2 (14:07→14:16)
[2021-11-27] MEDS: ondansetron 2 mg/ML SDV 2 mL 4 MG IVP ×2 (14:07→21:29)
--- NOTE | 2021-11-27 14:12 | ECG_ITS ---
[facility] Test Date: 2021-11-27 Pat Name: Alesia Shaw Department: Room: 258 Gender: Female Clothes Marker: : 1960 Requested By: Edel Blancas Order Number: [id number] Reading MD: SARAHI TIWARI Measurements Intervals [place] Rate: 67 P: 48 [place]: 185 QRS: -21 QRSD: 125 T: 116 QT: 470 QTc: 499 Interpretive Statements SINUS RHYTHM POSSIBLE LEFT ATRIAL ENLARGEMENT [-0.1mV P WAVE IN V1/V2] BORDERLINE LEFT AXIS DEVIATION [QRS AXIS < -20] LEFT VENTRICULAR HYPERTROPHY AND ST-T CHANGE [VOLTAGE CRITERIA PLUS ST/T ABNORMALITY] Compared to ECG 11/24/2021 00:25:18 Intraventricular conduction delay no longer present Myocardial infarct finding no longer present ST (T wave) deviation still present Electronically Signed On 11-27-2021 19:56:12 HAND DRILLER by SARAHI TIWARI [id number]
[2021-11-27] MEDS: promethazine 25 mg Tablet PO (14:24)
[2021-11-27] MEDS: FUROsemide 40 mg Tablet 80 MG PO (16:52)
[2021-11-27] MEDS: FUROsemide 40 mg Tablet PO (16:52)
--- NOTE | 2021-11-27 17:01 | PM.PN ---
Subjective Subjective: Interval history: Patient was seen and examined. She has been complaining of abdominal discomfort and nausea. Chest x-ray did not reveal any significant worsening of pleural effusion on the left side. I am going to remove the chest tube. Medications: Reviewed: Yes Vitals/I&O/Wt Last Vital Signs Temp 98.6 F 11/27/21 16:00 Pulse 71 11/27/21 16:00 Resp 16 11/27/21 16:00 BP 125/69 11/27/21 16:00 Pulse Ox 90 11/27/21 16:00 11/27/21 11/27/21 11/27/21 06:59 14:59 22:59 Intake Total 250 / 1540 480 / 480 Output Total 0 / 1136 Balance 250 / 404 480 / 480 Weight last 48 hrs Weight 238 lb 15.697 oz Weight 229 lb 8 oz Physical Exam Narrative: EXAM NARRATIVE: General: Patient is awake alert and oriented, in no distress. Neck: No JVD Respiratory: Auscultation: Reduced breath sound in the left posterior hemithorax, the breath sound is equal bilaterally otherwise, no wheezing or rhonchi Cardiovascular: Regular rate and rhythm, soft heart sounds, S1-S2 present, no murmur, edema in the right lower extremity Abdomen: Soft, nontender, mildly distended from obesity, positive bowel sound Musculoskeletal: Left below-knee amputation Skin: No rash Neuro: Mental status is normal, no gross motor deficit Data : 11/27/21 04:47 11/27/21 04:47 Micro: Microbiology 11/24/21 19:00 Gram Stain - Final Pleural Fluid Anaerobic Culture - Preliminary Body Fluid Culture - Preliminary 11/25/21 13:16 Urine Culture - Final Urine,Clean Catch Attestation for Other Data: I personally reviewed and interpreted the following: Other data: I have reviewed the patient's lab work and microbiological neurologic data. A&P Assessment and plan (1) Pleural effusion, left: The patient did not have any worsening of the respiratory status with chest tube clamping. Interestingly, noted significant amount of fluid returned on the left side. I am going to remove the chest tube. Following the removal of the chest tube some degree of pleural effusion will recur due to trapped lung physiology however this should not be enough to cause her any shortness of breath. The patient can be discharged on Augmentin to complete a total of 10-day therapy. The patient is to follow-up with Dr. Camacho for further intervention. The patient is currently on Lasix 120 mg twice a day. If necessary this can be increased to 160 twice a day. We need to prevent fluid accumulation due to renal failure to prevent her recurrent hospital visits. Status: Acute Attestations Medical Necessity Statement*: Will defer to the primary team Coding Level of Care Code Acute Medical Surgery Nurse for Gregorio Castillod Diagnoses Pleural effusion, left J90
--- NOTE | 2021-11-27 17:21 | PM.PN ---
Subjective Subjective: Interval history: I am seeing her in follow up for her ESRD management and dialysis needs. Feeling better. Got dialysis yesterday. No chest pain or shortness of breath Medications: Reviewed: Yes Vitals/I&O/Wt Last Vital Signs Temp 98.6 F 11/27/21 16:00 Pulse 71 11/27/21 16:00 Resp 16 11/27/21 16:00 BP 125/69 11/27/21 16:00 Pulse Ox 90 11/27/21 16:00 11/27/21 11/27/21 11/27/21 06:59 14:59 22:59 Intake Total 250 / 1540 480 / 480 Output Total 0 / 1136 Balance 250 / 404 480 / 480 Weight last 48 hrs Weight 108.4 kg Weight 104.099 kg Physical Exam Const: COMMON NORMALS: no acute distress and patient oriented x3 GENERAL APPEARANCE: cooperative ORIENTATION/CONSCIOUSNESS: Yes awake Extremity: GENERAL: No edema Neuro: COMMON NORMALS: patient oriented x3 Data : 11/27/21 04:47 11/27/21 04:47 Micro: Microbiology 11/24/21 19:00 Gram Stain - Final Pleural Fluid Anaerobic Culture - Preliminary Body Fluid Culture - Preliminary 11/25/21 13:16 Urine Culture - Final Urine,Clean Catch A&P Assessment and plan (1) ESRD (end stage renal disease): No indication for dialysis today. Will plan next HD on monday Status: Acute (2) Hypertension: BP stable Status: Acute Qualifiers: Hypertension type: essential hypertension Qualified Code(s): I10 - Essential (primary) hypertension (3) Anemia: Will give epo with dialysis Status: Acute Attestations Medical Necessity Statement*: pleural effusion Coding Level of Care Code Acute Tufting Supervisor for g Fwd Diagnoses ESRD (end stage renal disease) N18.6 Hypertension I10 Hypertension type: essential hypertension Anemia D64.9
[2021-11-28] VITALS (8 sets, daily range): BP systolic 141–181; BP diastolic 57–83; PULSE 64–79; RESP 16–20; TEMP 36.5–36.7; O2SAT 87–98
[2021-11-28] MEDS: heparin 5,000 unit/mL INJ 1 mL 5000 UNIT SUBCUT (02:16)
[2021-11-28 05:15] LABS: Basophils # 0.1 10^3/uL (0.0-0.1); Basophils % 1.1 %; Eosinophils # 0.5 10^3/uL (0.0-0.8); Eosinophils % 7.1 %; Hematocrit 25.6 % (37.0-47.0); Hemoglobin 8.1 g/dL (11.5-15.3); Lymphocytes # 1.2 10^3/uL (0.8-4.8); Lymphocytes % 18.4 %; Mean Corpuscular HGB Conc 31.6 g/dL (30.0-36.0); Mean Corpuscular Hemoglobin 32.8 pg (28.0-34.0); Mean Corpuscular Volume 103.6 fl (81-99); Mean Platelet Volume 10.7 fL (7.4-10.4); Monocytes # 0.9 10^3/uL (0.2-0.9); Monocytes % 13.7 %; Neutrophils # 3.91 10^3/uL (1.8-7.7); Neutrophils % 58.9 %; Nucleated Red Blood Cells % 0 %; Platelet Count 245 10^3/cmm (130-400); Red Blood Count 2.47 10^6/uL (4.1-5.3); Red Cell Distribution Width 14.2 % (12.1-15.1); White Blood Count 6.6 10^3/uL (4.0-10.0)
[2021-11-28] MEDS: pantoprazole DR 40 mg Tablet PO (08:34)
[2021-11-28] MEDS: levothyroxine 150 mcg Tablet PO (08:34)
[2021-11-28] MEDS: carvedilol 25 mg Tablet PO (08:34)
[2021-11-28] MEDS: psyllium powder Pkt 1 PACKET PO (08:34)
[2021-11-28] MEDS: isosorbide mononitrate ER 60 mg Tablet 120 MG PO (08:34)
[2021-11-28] MEDS: FUROsemide 40 mg Tablet PO (08:34)
[2021-11-28] MEDS: hyDRALAzine 10 mg Tablet PO (08:34)
[2021-11-28] MEDS: b-complex-vitamin c Tablet 1 EACH PO (08:34)
[2021-11-28] MEDS: aspirin 81 mg Chew Tablet PO (08:35)
[2021-11-28] MEDS: FUROsemide 40 mg Tablet 80 MG PO (08:35)
[2021-11-28] MEDS: fluticasone nasal spray 16gm Btl 1 SPRAY NASAL (08:36)
[2021-11-28] MEDS: nystatin cream 30 gm 1 APPLIC TOPICAL (08:36)
--- NOTE | 2021-11-28 11:51 | P.DS_ITS ---
Discharge Providers Date of Admission: 11/23/21 21:04 Date of Discharge: November 28, 2021 Attending Provider at Admission: Althea Larkin MD Attending Provider at Discharge: Edel Blancas MD Primary Care Provider: Karen Bear MD Diagnoses at Discharge Discharge Diagnosis (1) Pleural effusion, left: Status: Acute (2) Ischemic cardiomyopathy: Status: Acute (3) ESRD (end stage renal disease): Status: Acute (4) Hypertension: Status: Acute Qualifiers: Hypertension type: essential hypertension Qualified Code(s): I10 - Essential (primary) hypertension (5) Anemia: Status: Acute Reason for Visit Reason for Visit: Cant breath, sent over for poss fluid in lungs Hospital Course Hospital Course Patient is 61 year old female with h/o ESRD on dialysis, HTN, anemia of CKD, and ischemic cardiomyopathy with EF of 25 percent , h/o spinal abscess with MRSA in 2017, 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 Patient noted to have recurrent pleural effusion on left side which has been previously evaluated and noted to be exudative. Dr Means consulted and patient underwent left sided thoracostomy tube placement with removal of 1500 ml of bloody fluid. Patient COVID negative. Placed on IV antibiotics for broad spectrum coverage and switched to PO. Cultures negative. Patient underwent consultation with Dr Camacho to discuss possible decortication. She is a high surgical risk due to multiple medical issues including CAD, previous stent placements and ischemic cardiomyopathy with EF of 25 percent. Patient plans to F/U with Dr Camacho as an outpatient to explore theses options. Patient underwent hemodialysis while in hospital per nephrology and at discharge, will resume her Mon-Wed-Mon schedule. Patient requiring 2 L supplemental oxygen with exertion at discharge and also would benefit from overnight oximetry as an outpatient to r/u sleep apnea. Patient is stable for discharge. Thoracostomy tube removed on 11/27/21 and she remains stable. She will F/U with Dr Means in 7-10 days and her PCP in 5-7 days Discharge Data Data Completed and Pending: Completed Studies During Hospitalization Category Date Time Status CT chest wo con 7 1250 Stat Cat Scan 11/24/21 19:06 Completed XR chest 1V pierce ble [id number] Routine Exams 11/25/21 06:00 Completed XR chest 1V pierce ble [id number] Routine Exams 11/27/21 10:00 Completed XR chest 1V pierce ble [id number] Stat Exams 11/24/21 18:37 [place] [id number] Routin e Ultrasound 11/24/21 07:32 Completed Pending at discharge Category Date Time Status Anaerobic Culture Routine Lab 11/24/21 19:00 Results Blood Culture Sta t Lab 11/23/21 20:19 Results Body Fluid Cultur e & GS Routine Lab 11/24/21 19:00 Results Fungal Culture no t HR/SK/BL Routine Lab 11/24/21 19:00 Received MRSA by PCR Routi ne Lab 11/24/21 11:02 Ordered Mycobacteria, Cul ture w/Fluor Routi ne Lab 11/24/21 19:00 Received Cytology [PTH] Ro utine Pth 11/24/21 18:48 Received Labs from last 24 hours 11/28/21 04:50 WBC 6.6 RBC 2.47 L Hgb 8.1 L Hct 25.6 L MCV 103.6 H MCH 32.8 MCHC 31.6 RDW 14.2 Plt Count 245 MPV 10.7 H Neut % (Auto) 58.9 Lymph % (Auto) 18.4 Gray % (Auto) 13.7 Eos % (Auto) 7.1 Baso % (Auto) 1.1 Neut # (Auto) 3.91 Lymph # (Auto) 1.2 Gray # (Auto) 0.9 Eos # (Auto) 0.5 Baso # (Auto) 0.1 Nucleated RBC % (a uto) 0 Nucleated RBCs # 0.0 Vitals: Last Vital Signs Temp 98.1 F 11/28/21 11:28 Pulse 66 11/28/21 11:28 Resp 16 11/28/21 11:28 BP 181/83 11/28/21 11:28 Pulse Ox 98 11/28/21 11:28 Discharge Plan Discharge Patient Disposition: Home Condition: Stable Prescriptions: New amoxicillin-pot clavulanate 875-125 mg Tablet 1 tab PO BID Qty: 14 RF: 0 ondansetron HCl 4 mg Tablet 8 mg PO Q8H PRN (Reason: Nausea And Vomiting) Qty: 10 RF: 0 Continued nystatin 100,000 unit/gram cream 1 applic topical BID Qty: 30 RF: 0 furosemide 80 mg tablet 120 mg PO 0800,1400 Qty: 270 RF: 1 Synthroid 150 mcg tablet 150 mcg PO DAILY Qty: 30 RF: 5 promethazine 25 mg tablet 25 mg PO Q6H PRN (Reason: Nausea And Vomiting) Qty: 30 RF: 4 (DME) [facility] See Rx Instructions .Route .MEDSUPPLY Qty: 1 RF: 0 Coricidin HBP Chest Lukas-Cough 10-200 mg capsule 1 tab-cap PO Q8H PRN (Reason: Cough) RF: 0 hydralazine 50 mg tablet 50 mg PO TID Qty: 90 RF: 3 isosorbide mononitrate 120 mg tablet extended release 24 hr 120 mg PO DAILY Qty: 30 RF: 2 albuterol sulfate [ProAir HFA] 90 mcg/actuation Hfa Aerosol Inhaler 2 puff INHALATION Q4H PRN (Reason: Shortness Of Breath) RF: 0 RenaPlex-D 800 mcg-12.5 mg -2,000 unit tablet 1 tab PO DAILY RF: 0 clopidogrel 75 mg Tablet 75 mg PO DAILY 90 Days Qty: 90 RF: 2 nitroglycerin 0.4 mg Tablet, Sublingual 0.4 mg sublingual Q5M PRN (Reason: Chest Pain) 30 Days Qty: 30 RF: 2 aspirin [Children's Aspirin] 81 mg Tablet,Chewable 81 mg PO DAILY 90 Days Qty: 90 RF: 2 doxazosin [Cardura] 2 mg tablet 8 mg PO BID RF: 0 Metamucil 0.4 gram Capsule 0.4 g PO DAILY RF: 0 carvedilol [Coreg] 25 mg Tablet 25 mg PO BID RF: 0 Discharge Orders: Discharge Order (Routine); Ordered 11/28/21 Ordered By: Edel Blancas Other Ambulatory Orders: DME: Oxygen ( DIRECTED) Location: None Selected Ordered By: Edel Blancas Referrals: Jaden Camacho MD [Physician] - 4-7 days (Please call tomorrow to make a follow up appointment with Heart care services in 4-7 days. ) Epi Means MD [Physician] - 7-10 days (Please call Tomorrow to make a follow up appointment with Pulmonology within 7-10 days. ) Karen Bear MD [Primary Care Provider] - 4-7 days (Please call Monday to make a hospital follow up in 4-7 days. ) Discharge Diet: Advance as tolerated and Cardiac Patient Instructions: Amoxicillin (By mouth), Heart Failure (DC), Pleural Effusion (DC), Sepsis (GEN), Hypoxia (GEN), CHF Stoplight, Opioid Safety Activity Restrictions/Additional Instructions: Home oxygen at 2 L/min with exertion Discharge Attestations Time Spent in Discharge Care*: greater than 30 min Status at Discharge: Cognitive status at discharge: cognitively intact , Behavioral status at discharge: cooperative , Quality Metrics Clinical Quality Measures During this hospital stay, did patient experience: None Coding Level of Care Code Acute Chg FW DC note Diagnoses Pleural effusion, left J90 Ischemic cardiomyopathy I25.5 ESRD (end stage renal disease) N18.6 Hypertension I10 Hypertension type: essential hypertension Anemia D64.9
--- NOTE | 2021-11-28 12:53 | PC.NURSE ---
Discharge orders discussed with patient and spouse. Verbalized understanding.
--- NOTE | 2021-11-28 14:51 | PC.NURSE ---
Patient wheeled down to private vehicle with spouse.
--- NOTE | 2021-11-28 16:21 | P.PN_ITS ---
Subjective Subjective: Interval history: I am seeing her in follow up for her ESRD management and dialysis needs. Chest tube was removed yesterday. No cheat pain or shortness of breath Medications: Reviewed: Yes Vitals/I&O/Wt Last Vital Signs Temp 98.1 F 11/28/21 14:52 Pulse 66 11/28/21 14:52 Resp 16 11/28/21 14:52 BP 181/83 11/28/21 14:52 Pulse Ox 98 11/28/21 14:52 11/28/21 11/28/21 11/28/21 06:59 14:59 22:59 Intake Total 500 / 1580 480 / 480 Output Total 0 / 0 Balance 500 / 1580 480 / 480 Weight last 48 hrs Weight 106.231 kg Physical Exam Const: COMMON NORMALS: no acute distress, patient oriented x3 and alert GENERAL APPEARANCE: cooperative ORIENTATION/CONSCIOUSNESS: Yes awake Resp: COMMON NORMALS: clear to auscultation bilaterally AUSCULTATION: clear to auscultation bilaterally Cardio: COMMON NORMALS: S1 normal heart sound present and S2 normal heart sound present HEART SOUNDS: S1 normal heart sound present and S2 normal heart sound present GI: AUSCULTATION: Yes normoactive bowel sounds Extremity: GENERAL: Yes edema Neuro: COMMON NORMALS: patient oriented x3 SENSORIUM/ORIENTATION: Yes alert Skin: COMMON NORMALS: no rashes or lesions noted GENERAL SKIN EXAM: no rashes or lesions noted Data : 11/28/21 04:50 11/27/21 04:47 Micro: Microbiology 11/24/21 19:00 Gram Stain - Final Pleural Fluid Anaerobic Culture - Preliminary Body Fluid Culture - Final A&P Assessment and plan (1) ESRD (end stage renal disease): No indication for dialysis today. Ok to discharge pt from kidney standpoint Status: Acute (2) Hypertension: BP under control Status: Acute Qualifiers: Hypertension type: essential hypertension Qualified Code(s): I10 - Essential (primary) hypertension (3) Anemia: Pt will get epo with dialysis Status: Acute Attestations Medical Necessity Statement*: ESRD Coding Level of Care Code Acute [employer] Technician for [facility] Fwd Diagnoses ESRD (end stage renal disease) N18.6 Hypertension I10 Hypertension type: essential hypertension Anemia D64.9
== END 2021-11-28 14:58 | disposition home or self-care (01) | DRG 291 ==
LOC: ER 21:12 → MEDSURG 22:04
PROVIDERS: Emergency Medicine; Internal Medicine Nephrology; Internal Medicine Pulmonary Disease; Student in an Organized Health Care Education/Training Program; Admitting Provider Student in an Organized Health Care Education/Training Program; Emergency Provider Emergency Medicine; PCP Family Medicine; Visit Provider Internal Medicine
DX: I13.2 Hypertensive heart and chronic kidney disease with heart failure and with stage 5 chronic kidney disease, or end stage renal disease (principal); I50.23 Acute on chronic systolic (congestive) heart failure; N18.6 End stage renal disease; L97.411 Non-pressure chronic ulcer of right heel and midfoot limited to breakdown of skin; J90 Pleural effusion, not elsewhere classified; J93.9 Pneumothorax, unspecified; E11.22 Type 2 diabetes mellitus with diabetic chronic kidney disease; Z99.2 Dependence on renal dialysis; E78.5 Hyperlipidemia, unspecified; I25.10 Atherosclerotic heart disease of native coronary artery without angina pectoris; Z86.14 Personal history of Methicillin resistant Staphylococcus aureus infection; D63.1 Anemia in chronic kidney disease; E11.610 Type 2 diabetes mellitus with diabetic neuropathic arthropathy; E11.40 Type 2 diabetes mellitus with diabetic neuropathy, unspecified; E11.621 Type 2 diabetes mellitus with foot ulcer; Z89.512 Acquired absence of left leg below knee; E03.9 Hypothyroidism, unspecified; I25.5 Ischemic cardiomyopathy; Z79.82 Long term (current) use of aspirin; Z79.02 Long term (current) use of antithrombotics/antiplatelets; Z79.51 Long term (current) use of inhaled steroids
CPT/HCPCS: 12345; 36415; 36430; 71045; 71046; 71250; 80048; 80053; 80500; 81001; 82042; 82150; 82306; 82310; 82465; 82607; 82728; 82746; 82945; 83540; 83550; 83615; 83735; 83880; 83970; 83986; 84075; 84100; 84145; 84157; 84315; 84478; 84484; 84560; 85007; 85025; 85027; 86140; 86403; 86706; 86803; 86850; 86900; 86920; 87015; 87040; 87070; 87075; 87086; 87102; 87116; 87205; 87206; 87340; 87426; 87449; 87493; 87635; 87801; 88305; 89050; 93005; 93970; 94664; 96372; J1170; J1644; J2405; J2543; J3490; P9016; Q0169; Q3014; Q4081

== ENCOUNTER 2021-12-02 14:39 | Outpatient (CLI) | payer MEDICARE, MEDICAID, SELFPAY ==
--- NOTE | 2021-12-02 14:51 | XR_ITS ---
WS: [email or web address] Exam: XR chest 2V* [id number] Date/Time of Exam: 12/02/2021 2:55 PM Reason For Exam: J90 - Pleural effusion, not elsewhere classified Comparison 11/27/2021. Increasing consolidation and atelectasis in the lingula and left lower lobe. Improving right basal at electasis. The heart is enlarged. Pulmonary vascularity is increased. A double lumen dialysis cathete r is noted on the right and appears to extend into the right atrium. It is unchanged in location. No pneumothorax seen. The mediastinum is not widened. Bony structures are intact. Probable small right b dayen pleural effusion. XR/XR chest 2V* [id number] IMPRESSION: 1. Increasing consolidating infiltrate and atelectasis in the left lower lobe a nd lingula. Resolved left pneumothorax. 2. Cardiomegaly unchanged. 3. Improved right basal atelectasis since prior study. There is probably right basal pleural effusion present.
== END 2021-12-02 14:40 | disposition home or self-care (01) ==
LOC: ONCMED 14:49
PROVIDERS: PCP Family Medicine; Visit Provider Thoracic Surgery (Cardiothoracic Vascular Surgery)
DX: J90 Pleural effusion, not elsewhere classified (principal); J98.11 Atelectasis; I51.7 Cardiomegaly
CPT/HCPCS: 71046

== ENCOUNTER 2021-12-14 09:01 | Outpatient (CLI) | payer MEDICARE, MEDICAID, SELFPAY ==
--- NOTE | 2021-12-14 09:20 | XR_ITS ---
WS: [email or web address] PROCEDURE: XR chest 2V* [id number] CLINICAL INFORMATION: J90 - Pleural effusion, not elsewhere classified COMPARISON: December 02, 2021 FINDINGS: Heart: Cardiomegaly. Dual lumen right central venous catheter with tips in the distal SVC and right a trium. Lungs: Small left pleural effusion with compressive atelectasis and infiltrates in the left lower lob e. Patchy infiltrates in the left midlung similar to previous. Tiny right pleural effusion. Bones: Normal visualized bony structures. XR/XR chest 2V* [id number] IMPRESSION: 1. Stable cardiomegaly and right dual-lumen central venous catheter. 2. Stable small left pleural effusion with left lower lobe pneumonia. Patchy i nfiltrates in the left midlung are similar to previous. 3. Small right pleural effusion. 4. Overall no significant changes since December 02, 2021
== END 2021-12-14 09:02 | disposition home or self-care (01) ==
LOC: RAD 09:17
PROVIDERS: PCP Family Medicine; Visit Provider Thoracic Surgery (Cardiothoracic Vascular Surgery)
DX: J90 Pleural effusion, not elsewhere classified (principal); I51.7 Cardiomegaly; J18.9 Pneumonia, unspecified organism
CPT/HCPCS: 71046

== ENCOUNTER 2021-12-14 13:00 | Outpatient (CLI) | payer MEDICARE, MEDICAID, SELFPAY | END 2021-12-14 13:01 | disposition home or self-care (01) | LOC: WOUND 13:01 | PROVIDERS: PCP Family Medicine; Visit Provider Emergency Medicine | DX: I96 Gangrene, not elsewhere classified (principal); E11.621 Type 2 diabetes mellitus with foot ulcer; L97.412 Non-pressure chronic ulcer of right heel and midfoot with fat layer exposed | CPT/HCPCS: 99212 ==

== ENCOUNTER 2021-12-25 05:35 | Inpatient (IN) | payer MEDICARE, MEDICAID, SELFPAY ==
[2021-12-25] VITALS (7 sets, daily range): BP systolic 112–139; BP diastolic 54–82; PULSE 71–98; RESP 14–20; TEMP 36.8–39.6; O2SAT 90–99; BMI 36.1
--- NOTE | 2021-12-25 06:00 | XRR_ITS ---
PROCEDURE INFORMATION: Exam: XR Chest Exam date and time: 12/25/2021 6:00 AM Age: 61 years old Clinical indication: Fever TECHNIQUE: Imaging protocol: XR of the chest. Views: 1 view. COMPARISON: CR XR chest 2V* [id number] 12/14/2021 9:25 AM FINDINGS: Tubes, catheters and devices: Right IJ central venous catheter terminates in the region of the right atrium. Lungs: Left basilar airspace opacities are mildly improved from 12/14/2021. Pleural spaces: Small bilateral pleural effusions, similar to prior. No pneumothorax. Heart/Mediastinum: Unremarkable. No cardiomegaly. Bones/joints: Unremarkable. XR/XR chest 1V portable [id number] IMPRESSION: 1. Left basilar airspace opacities are mildly improved from 12/14/2021. 2. Similar small bilateral pleural effusions.
[2021-12-25] MEDS: sodium chloride 0.9% 1,000 ML 999 ML IV (06:15)
--- NOTE | 2021-12-25 06:19 | XRR_ITS ---
PROCEDURE INFORMATION: Exam: XR Right Tibia and Fibula Exam date and time: 12/25/2021 6:19 AM Age: 61 years old Clinical indication: Cellulitis; Lower leg; Right; Additional info: Foot pain TECHNIQUE: Imaging protocol: XR Right tibia and fibula. Views: 2 views. COMPARISON: CR XR foot RT min 3V* [id number] 08/31/2021 11:22 AM FINDINGS: Bones/joints: No acute fracture. 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 Osteopenia. Soft tissues: Soft tissue edema about the right leg. Vasculature: Vascular calcifications. XR/XR tibia fibula RT 2V [id number] IMPRESSION: 1. No acute fracture. 2. 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 3. Soft tissue edema about the right leg.
--- NOTE | 2021-12-25 06:19 | XRR_ITS ---
PROCEDURE INFORMATION: Exam: XR Right Foot Exam date and time: 12/25/2021 6:19 AM Age: 61 years old Clinical indication: Cellulitis; Foot; Right; Additional info: Foot swelling and pain TECHNIQUE: Imaging protocol: XR Right foot. Views: 1 or 2 views. COMPARISON: CR XR foot RT min 3V* [id number] 08/31/2021 11:22 AM FINDINGS: Bones/joints: No acute fracture. There is suggestion of neuropathic arthropathy of the midfoot and hindfoot, consistent with Charcot joint, similar to mildly progressed from prior. Marked osteopenia. Widening of the talonavicular joint with hindfoot valgus collapse. No specific radiographic evidence of acute osteomyelitis. Soft tissues: Subcutaneous soft tissue edema about the right ankle and foot. Vasculature: Vascular calcifications. XR/XR foot RT 2V [id number] IMPRESSION: 1. No acute fracture or specific radiographic evidence of acute osteomyelitis. 2. Evidence of Charcot joint, similar to mildly progressed from prior. 3. Soft tissue edema about the right foot and ankle.
--- NOTE | 2021-12-25 06:19 | XRR_ITS ---
PROCEDURE INFORMATION: Exam: XR Right Ankle Exam date and time: 12/25/2021 6:19 AM Age: 61 years old Clinical indication: Cellulitis; Ankle; Right; Additional info: Foot pain TECHNIQUE: Imaging protocol: XR Right ankle. Views: 1 or 2 views. COMPARISON: CR XR foot RT min 3V* [id number] 08/31/2021 11:22 AM FINDINGS: Bones/joints: No acute fracture. 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 Evidence of Charcot arthropathy of the hindfoot with lateral migration of the talus relative to the tibia and hindfoot valgus collapse. Osteopenia. Soft tissues: Extensive soft tissue edema about the right ankle. Vasculature: Vascular calcifications. XR/XR ankle RT 2V [id number] IMPRESSION: 1. No acute fracture. 2. Redemonstrated Charcot arthropathy of the hindfoot. 3. Remote fracture of the distal fibula with nonunion.
--- NOTE | 2021-12-25 06:29 | W.ED.GENADLT ---
HPI - General Adult General: Chief complaint: Fever Stated complaint: Infection\N\V\F\ from [facility] Time Seen by Provider: 12/25/21 06:15 History of Present Illness: Patient is a 61-year-old female with a history of dialysis Monday/Monday/Monday, DM c/b L aka who presents to the emergency room for evaluation of nausea/vomiting, diarrhea and fever and chills. Patient tells me that she has been having symptoms for the last 3 to 4 days. Patient underwent dialysis successfully yesterday afternoon. She has had COVID about 3 months ago. Reports mild cough generalized weakness and body ache. Denies any dyspnea or chest pain, or abdominal pain. Of note, patient has chronic diabetic ulcer in the right foot and L AKA. Onset: 3-4 days ago Duration:3-4days Location:home Severity:moderate Associated symptoms: Reports nausea and vomiting; Deny chest pain, dyspnea, rash or palpitations Review of Systems Const: Reports: fever(s), chills, body aches, fatigue and other (generalized weakness) Eyes: Denies: change in vision ENMT: Denies: mouth pain Card: Denies: chest pain or palpitations Resp: Reports: non-productive cough; Denies: dyspnea GI: Reports: nausea, vomiting and diarrhea; Denies: abdominal pain : Denies: dysuria Musc: Denies: extremity pain Skin/Breast: Denies: rash or new lesions Neuro: Denies: weakness in extremities Psych: Reports: other (Normal mood) Jimmy/Lymph: Denies: easy bruising PFS ED PFSH: Medical History Acute bronchitis Anemia Aortic valve endocarditis Bacteremia due to Staphylococcus EKG done this morning revealed normal sinus rhythm with a left axis deviation. Voltage area for LVH. No significant ST-T changes. 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 Neuropathy Protein-energy malnutrition Septic arthritis of left ankle Surgical History Central vascular catheter in place upon arrival History of cholecystectomy History of colonoscopy with polypectomy 2017 History of left below knee amputation History of lumbar surgery Due to epidural abscess in March 2018 Peritoneal dialysis catheter in place removal 05/20/21 S/P hemodialysis catheter insertion Status post below-knee amputation of left lower extremity Family History Mother Cancer Uterine and breast cancer Father Diabetes Other CAD (coronary artery disease) Social History Alcohol intake: current Alcohol intake frequency: holidays/special occasions only Female Reproductive History: Date of last menstrual period: 05/28/14 Physical Exam Const: COMMON NORMALS: alert HENMT: COMMON NORMALS: atraumatic HEAD & SCALP: atraumatic MOUTH: moist mucous membranes abnormal Eye: COMMON NORMALS: EOMs intact bilaterally and conjunctivae normal CONJUNCTIVA: Yes conjunctivae normal Neck/C-Spine: COMMON NORMALS: full ROM and supple Resp: OTHER: +coarse breath sounds b/l Cardio: COMMON NORMALS: regular rate RATE: regular rate GI: COMMON NORMALS: Soft to palpation and non-tender PALPATION: Yes Soft to palpation Extremity: COMMON NORMALS: full ROM NARRATIVE EXTREMITY EXAM: +R lower extremity swelling and warmth, stage 2 decubitus heel ulcer R side, sensation intact in the RLE, no crepitus, cap refill < 3 seconds b/l OTHER: +L AKA Neuro: SENSORIUM/ORIENTATION: Yes alert MOTOR EXAM: No Abnormal motor strength present and Other motor observations present (no focal motor deficits) Psych: COMMON NORMALS: speech normal SPEECH: Yes normal speech MOOD & AFFECT: Yes euthymic mood Course Vital Signs: Vital signs: Vital Signs Temperature 103.3 F H 12/25/21 05:50 Pulse Rate 98 12/25/21 05:50 Respiratory Rate 20 H 12/25/21 05:50 Blood Pressure 112/66 02/12/22 05:50 Pulse Oximetry 90 12/25/21 05:50 MDM - General Adult Medical Decision Making 61-year-old female w/ hx of dialysis presents emergency room with complaints of fever/chills, cough, diarrhea, nausea/vomiting. On arrival, patient is febrile to 103.3. Patient is also noted to be satting between 91 to 92% on room air. Lungs appears to be clear. WBC of 15.2, procalcitonin appears grossly elevated. Covid test negative today. X-ray chest not showing signs of pneumonia. Patient is end-stage renal is unable to provide us with urine. Patient received vancomycin, cefepime and 1 L fluid. Patient was made to defer 30 cc/kg of IVF given the fact that patient is on dialysis. At the present time it is unclear what the source of the fever is. Blood culture is pending. Disposition: admission Lab Data : 12/25/21 06:00 12/25/21 06:00 Radiology Impressions Chest X-Ray 12/25/21 06:00 IMPRESSION: 1. Left basilar airspace opacities are mildly improved from 12/14/2021. 2. Similar small bilateral pleural effusions. Ankle X-Ray 12/25/21 06:19 IMPRESSION: 1. No acute fracture. 2. Redemonstrated Charcot arthropathy of the hindfoot. 3. Remote fracture of the distal fibula with nonunion. Foot X-Ray 12/25/21 06:19 IMPRESSION: 1. No acute fracture or specific radiographic evidence of acute osteomyelitis. 2. Evidence of Charcot joint, similar to mildly progressed from prior. 3. Soft tissue edema about the right foot and ankle. Tibia/Fibula X-Ray 12/25/21 06:19 IMPRESSION: 1. No acute fracture. 2. 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 3. Soft tissue edema about the right leg. Laboratory Results WBC 15.2 10^3/uL (4.0-10.0) H 12/25/21 06:00 RBC 2.78 10^6/uL (4.1-5.3) L 12/25/21 06:00 Hgb 9.3 g/dL (11.5-15.3) L 12/25/21 06:00 Hct 28.8 % (37.0-47.0) L 12/25/21 06:00 MCV 103.6 fl (81-99) H 12/25/21 06:00 MCH 33.5 pg (28.0-34.0) 12/25/21 06:00 MCHC 32.3 g/dL (30.0-36.0) 12/25/21 06:00 RDW 15.9 % (12.1-15.1) H 12/25/21 06:00 Plt Count 159 10^3/cmm (130-400) 12/25/21 06:00 MPV 10.6 fL (7.4-10.4) H 12/25/21 06:00 Neut % (Auto) 92.1 % 12/25/21 06:00 Lymph % (Auto) 1.8 % 12/25/21 06:00 Ashley % (Auto) 4.4 % 12/25/21 06:00 Eos % (Auto) 0.0 % 12/25/21 06:00 Baso % (Auto) 0.3 % 12/25/21 06:00 Neut # (Auto) 13.99 10^3/uL (1.8-7.7) H 12/25/21 06:00 Lymph # (Auto) 0.3 10^3/uL (0.8-4.8) L 12/25/21 06:00 Ashley # (Auto) 0.7 10^3/uL (0.2-0.9) 12/25/21 06:00 Eos # (Auto) 0.0 10^3/uL (0.0-0.8) 12/25/21 06:00 Baso # (Auto) 0.0 10^3/uL (0.0-0.1) 12/25/21 06:00 Nucleated RBC % (auto) 0 % 12/25/21 06:00 Nucleated RBCs # 0.0 /100WBC 12/25/21 06:00 Sodium 136 mmol/L (136-145) 12/25/21 06:00 Potassium 4.2 mmol/L (3.5-5.1) 12/25/21 06:00 Chloride 94 mmol/L (98-107) L 12/25/21 06:00 Carbon Dioxide 27 mmol/L (22-29) 12/25/21 06:00 Anion Gap 19.2 (5-19) H 12/25/21 06:00 BUN 16 mg/dL (6-20) 12/25/21 06:00 Creatinine 3.7 mg/dL (0.5-0.9) H 12/25/21 06:00 GFR Calculation 12.5 mL/min (90-130) L 12/25/21 06:00 Glucose 90 mg/dL (65-115) 12/25/21 06:00 Calculated Osmolality 283 mOsm/kg (285-295) L 12/25/21 06:00 Lactate 1.9 mmol/L (0.5-2.2) 12/25/21 06:00 Calcium 8.4 mg/dL (8.5-10.5) L 12/25/21 06:00 Magnesium 2.0 mg/dL (1.7-2.3) 12/25/21 06:00 Total Bilirubin 1.0 mg/dL (0.15-1.2) 12/25/21 06:00 AST 26 U/L (0-32) 12/25/21 06:00 ALT 11 U/L (0-33) 12/25/21 06:00 Alkaline Phosphatase 207 IU/L (35-105) H 12/25/21 06:00 C-Reactive Protein 18.3 mg/L (0.0-4.9) H 12/25/21 06:00 Total Protein 7.6 g/dL (6.6-8.7) 12/25/21 06:00 Albumin 3.8 g/dL (3.5-5.2) 12/25/21 06:00 Globulin 3.8 g/dL (1.3-4.6) 12/25/21 06:00 Procalcitonin 8.23 ng/mL (0-0.5) H 12/25/21 06:00 Coronavirus 229E (PCR) Not detected (NOT DETECT) 12/25/21 06:28 SARS-CoV-2 (PCR) Not detected (NOT DETECT) 12/25/21 06:28 Imaging Data Other Imaging: Radiologist's impression: [address] [address] XRay Report Signed Patient: Alesia Shaw Unit #: [id number] : 1960 Age/Sex: 61 / F ADM Date: 12/25/21 Loc: ER Room/Bed: Attending Dr: Ordering Provider/Ordering MD: Deepak Jimenez MD Date of Service: 12/25/21 Procedure(s): XR tibia fibula RT 2V 61426 Accession Number(s): [id number] Report Number: [id number] PROCEDURE INFORMATION: Exam: XR Right Tibia and Fibula Exam date and time: 12/25/2021 6:19 AM Age: 61 years old Clinical indication: Cellulitis; Lower leg; Right; Additional info: Foot pain TECHNIQUE: Imaging protocol: XR Right tibia and fibula. Views: 2 views. COMPARISON: CR XR foot RT min 3V* [id number] 08/31/2021 11:22 AM FINDINGS: Bones/joints: No acute fracture. 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 Osteopenia. Soft tissues: Soft tissue edema about the right leg. Vasculature: Vascular calcifications. XR/XR tibia fibula RT 2V [id number] IMPRESSION: 1. No acute fracture. 2. 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 3. Soft tissue edema about the right leg. ? Dictated By: Vanessa Goddard MD Signed By: Vanessa Goddard MD Signed Date/Time: 12/25/21 0759 DD/ [address] [address] XRay Report Signed Patient: Alesia Shwa Unit #: [id number] : 1960 Age/Sex: 61 / F ADM Date: 12/25/21 Loc: ER Room/Bed: Attending Dr: Ordering Provider/Ordering MD: Deepak Jimenez MD Date of Service: 12/25/21 Procedure(s): XR foot RT 2V 45062 Accession Number(s): [id number] Report Number: [id number] PROCEDURE INFORMATION: Exam: XR Right Foot Exam date and time: 12/25/2021 6:19 AM Age: 61 years old Clinical indication: Cellulitis; Foot; Right; Additional info: Foot swelling and pain TECHNIQUE: Imaging protocol: XR Right foot. Views: 1 or 2 views. COMPARISON: CR XR foot RT min 3V* [id number] 08/31/2021 11:22 AM FINDINGS: Bones/joints: No acute fracture. There is suggestion of neuropathic arthropathy of the midfoot and hindfoot, consistent with Charcot joint, similar to mildly progressed from prior. Marked osteopenia. Widening of the talonavicular joint with hindfoot valgus collapse. No specific radiographic evidence of acute osteomyelitis. Soft tissues: Subcutaneous soft tissue edema about the right ankle and foot. Vasculature: Vascular calcifications. XR/XR foot RT 2V [id number] IMPRESSION: 1. No acute fracture or specific radiographic evidence of acute osteomyelitis. 2. Evidence of Charcot joint, similar to mildly progressed from prior. 3. Soft tissue edema about the right foot and ankle. ? Dictated By: Vanessa Goddard MD Signed By: Vanessa Goddard MD Signed Date/Time: 12/25/21 0758 DD/ 0619 [place] [address] XRay Report Signed Patient: Alesia Shaw Unit #: [id number] : 1960 Age/Sex: 61 / F ADM Date: 12/25/21 Loc: ER Room/Bed: Attending Dr: Ordering Provider/Ordering MD: Deepak Jimenez MD Date of Service: 12/25/21 Procedure(s): XR ankle RT 2V 86716 Accession Number(s): [id number] Report Number: [id number] PROCEDURE INFORMATION: Exam: XR Right Ankle Exam date and time: 12/25/2021 6:19 AM Age: 61 years old Clinical indication: Cellulitis; Ankle; Right; Additional info: Foot pain TECHNIQUE: Imaging protocol: XR Right ankle. Views: 1 or 2 views. COMPARISON: CR XR foot RT min 3V* [id number] 08/31/2021 11:22 AM FINDINGS: Bones/joints: No acute fracture. 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 Evidence of Charcot arthropathy of the hindfoot with lateral migration of the talus relative to the tibia and hindfoot valgus collapse. Osteopenia. Soft tissues: Extensive soft tissue edema about the right ankle. Vasculature: Vascular calcifications. XR/XR ankle RT 2V [id number] IMPRESSION: 1. No acute fracture. 2. Redemonstrated Charcot arthropathy of the hindfoot. 3. Remote fracture of the distal fibula with nonunion. ? Dictated By: Vanessa Goddard MD Signed By: Vanessa Goddard MD Signed Date/Time: 12/25/21 0800 DD/ [address] [address] XRay Report Signed Patient: Alesia Shaw Unit #: [id number] : 1960 Age/Sex: 61 / F ADM Date: 12/25/21 Loc: ER Room/Bed: Attending Dr: Ordering Provider/Ordering MD: Don Pineda DO Date of Service: 12/25/21 Procedure(s): XR chest 1V portable [id number] Accession Number(s): [id number] Report Number: [id number] PROCEDURE INFORMATION: Exam: XR Chest Exam date and time: 12/25/2021 6:00 AM Age: 61 years old Clinical indication: Fever TECHNIQUE: Imaging protocol: XR of the chest. Views: 1 view. COMPARISON: CR XR chest 2V* [id number] 12/14/2021 9:25 AM FINDINGS: Tubes, catheters and devices: Right IJ central venous catheter terminates in the region of the right atrium. Lungs: Left basilar airspace opacities are mildly improved from 12/14/2021. Pleural spaces: Small bilateral pleural effusions, similar to prior. No pneumothorax. Heart/Mediastinum: Unremarkable. No cardiomegaly. Bones/joints: Unremarkable. XR/XR chest 1V portable [id number] IMPRESSION: 1. Left basilar airspace opacities are mildly improved from 12/14/2021. 2. Similar small bilateral pleural effusions. ? Dictated By: Vanessa Goddard MD Signed By: Vanessa Goddard MD Signed Date/Time: 12/25/21 0755 DD/ 0600 Discharge Plan Discharge Condition: Stable Prescriptions: No Action nystatin 100,000 unit/gram cream 1 applic topical BID Qty: 30 0RF furosemide 80 mg tablet 120 mg PO 0800,1400 Qty: 270 1RF Synthroid 150 mcg tablet 150 mcg PO DAILY Qty: 30 5RF Rx Instructions: Take 1 tablet by mouth once daily (DME) Stump Nurse Practitioner Home Assessments See Rx Instructions .Route .MEDSUPPLY Qty: 1 0RF Rx Instructions: As directed hydralazine 50 mg tablet 50 mg PO TID Qty: 90 3RF isosorbide mononitrate 120 mg tablet extended release 24 hr 120 mg PO DAILY Qty: 30 2RF promethazine-DM 6.25-15 mg/5 mL syrup 5 ml PO Q6H PRN (Reason: cough) Qty: 160 0RF albuterol sulfate [ProAir HFA] 90 mcg/actuation Hfa Aerosol Inhaler 2 puff INHALATION Q4H PRN (Reason: Shortness Of Breath) 0RF RenaPlex-D 800 mcg-12.5 mg -2,000 unit tablet 1 tab PO DAILY 0RF clopidogrel 75 mg Tablet 75 mg PO DAILY 90 Days Qty: 90 2RF nitroglycerin 0.4 mg Tablet, Sublingual 0.4 mg sublingual Q5M PRN (Reason: Chest Pain) 30 Days Qty: 30 2RF aspirin [Children's Aspirin] 81 mg Tablet,Chewable 81 mg PO DAILY 90 Days Qty: 90 2RF doxazosin [Cardura] 2 mg tablet 8 mg PO BID 0RF Metamucil 0.4 gram Capsule 0.4 g PO DAILY 0RF amoxicillin-pot clavulanate 875-125 mg Tablet 1 tab PO BID Qty: 14 0RF ondansetron HCl 4 mg Tablet 8 mg PO Q8H PRN (Reason: Nausea And Vomiting) Qty: 10 0RF carvedilol [Coreg] 25 mg Tablet 25 mg PO BID 0RF Referrals: Karen Bear MD [Primary Care Provider] - Coding Level of Care Code ED Nurse Technician for [facility] Exam Comprehensive
[2021-12-25 06:34] LABS: Basophils % 0.3 %; Hematocrit 28.8 % (37.0-47.0); Hemoglobin 9.3 g/dL (11.5-15.3); Lymphocytes # 0.3 10^3/uL (0.8-4.8); Lymphocytes % 1.8 %; Mean Corpuscular HGB Conc 32.3 g/dL (30.0-36.0); Mean Corpuscular Hemoglobin 33.5 pg (28.0-34.0); Mean Corpuscular Volume 103.6 fl (81-99); Mean Platelet Volume 10.6 fL (7.4-10.4); Monocytes # 0.7 10^3/uL (0.2-0.9); Monocytes % 4.4 %; Neutrophils # 13.99 10^3/uL (1.8-7.7); Neutrophils % 92.1 %; Nucleated Red Blood Cells % 0 %; Platelet Count 159 10^3/cmm (130-400); Red Blood Count 2.78 10^6/uL (4.1-5.3); Red Cell Distribution Width 15.9 % (12.1-15.1); White Blood Count 15.2 10^3/uL (4.0-10.0)
[2021-12-25] MEDS: acetaminophen 500 mg Tablet 1000 MG PO (06:34)
[2021-12-25] MEDS: ondansetron 2 mg/ML SDV 2 mL 4 MG IVP ×2 (06:34→21:46)
[2021-12-25] MEDS: cefepime 1,000 MG in sodium chloride 0.9% (plus) 50 ML 100 MG IV (06:46)
[2021-12-25 06:58] LABS: Lactate (Lactic Acid level) 1.9 mmol/L (0.5-2.2)
[2021-12-25 06:59] LABS: Alanine Aminotransferase 11 U/L (0-33); Albumin Level 3.8 g/dL (3.5-5.2); Alkaline Phosphatase 207 IU/L (35-105); Aspartate Amino Transferase 26 U/L (0-32); Blood Urea Nitrogen 16 mg/dL (6-20); C Reactive Protein 18.3 mg/L (0.0-4.9); Calcium 8.4 mg/dL (8.5-10.5); Carbon Dioxide 27 mmol/L (22-29); Chloride 94 mmol/L (98-107); Globulin 3.8 g/dL (1.3-4.6); Glomerular Filtration Rate 12.5 mL/min (90-130); Glucose 90 mg/dL (65-115); Osmolality Calculated 283 mOsm/kg (285-295); Sodium 136 mmol/L (136-145); Total Protein 7.6 g/dL (6.6-8.7)
[2021-12-25 07:04] LABS: Procalcitonin 8.23 ng/mL (0-0.5)
[2021-12-25 07:19] LABS: Anion Gap 19.2 (5-19); Potassium 4.2 mmol/L (3.5-5.1)
[2021-12-25] MEDS: vancomycin 1,000 MG in sodium chloride 0.9% 250 ML 250 MG IV (07:25)
[2021-12-25 08:56] LABS: Adenovirus Not Detected (NOT DETECT); Chlamydia Pneumoniae Not Detected (NOT DETECT); Coronavirus 229E,HKU1,NL63,OC4 Not Detected (NOT DETECT); Human Metapneumovirus Not Detected (NOT DETECT); Human Rhinovirus/Enterovirus Not Detected (NOT DETECT); Influenza A Not Detected (NOT DETECT); Influenza A H1 Not Detected (NOT DETECT); Influenza A H1-2009 Not Detected (NOT DETECT); Influenza A H3 Not Detected (NOT DETECT); Influenza B Not Detected (NOT DETECT); Mycoplasma Pneumoniae Not Detected (NOT DETECT); Parainfluenza Virus Type 1 Not Detected (NOT DETECT); Parainfluenza Virus Type 2 Not Detected (NOT DETECT); Parainfluenza Virus Type 3 Not Detected (NOT DETECT); Parainfluenza Virus Type 4 Not Detected (NOT DETECT); Respiratory Syncytial Virus A Not Detected (NOT DETECT); Respiratory Syncytial Virus B Not Detected (NOT DETECT); SARS-COV-2 Not Detected (NOT DETECT)
[2021-12-25] MEDS: enoxaparin 40 mg/0.4 mL Syringe SUBCUT (11:54)
[2021-12-25] MEDS: piperacillin-tazobactam 3.375 GM in sodium chloride 0.9% (plus) 100 ML IV ×2 (11:54→23:08)
--- NOTE | 2021-12-25 18:00 | P.HP_ITS ---
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 She has a left sided pleural effusion which has been present since at least 06/2021 and has undergone thoracentesis on multiple occassions, admitted 11/24 for fever and underwent left sided thoracostomy tube placement due to concern for empyema with removal of 1500 ml of bloody fluid. Patient underwent consultation with Dr Camacho to discuss possible decortication. She is a high surgical risk due to multiple medical issues including CAD, previous stent placements and ischemic cardiomyopathy with EF of 25 percent, therefore has been serially monitored with CXR which have shown steady improvement, including today. Cultures negative, including recent fungal and AFB cx from one month ago. Path showed chronic inflammatory cells with hemosiderin laden histiocytes and reactive mesothelial cells. no malignancy. Presents to the ER today with 4-5 days of feeling unwell, fever noted to be 103F on ER arrival, poor po intake, diaarrhea at baseline. No recent increase in cough or sputum production. Covid PCR negative. Recently underwent wound debridement at [facility] on 12/14 following which reports that 3 days latre her right leg started to have worsening swelling (has baseline lymphedema) and became red and warm. Mild discharge at wound site post debridement. HD tunneled cath in >1 year currently, has declined AVF formation as she is worried about cardiovascular tolerance for surgery and difficulties travelling to [place] Review of Systems General: Reports: 10 or more systems reviewed and unremarkable except in HPI and below Medications/Allergies Home Medications Medication Instructions Recorded Confirmed Last Taken Type Stump News Technical Director #1 ea 01/12/21 12/25/21 07/20/21 Rx carvedilol 25 mg tablet (Coreg) 25 mg PO BID 05/19/21 12/25/21 11/23/21 History albuterol sulfate 90 mcg/actuation 2 puff INHALATION Q4H PRN 06/13/21 12/25/21 07/20/21 History aerosol inhaler (ProAir HFA) vit B,C-folic ac 800 mcg-zinc 12.5 1 tab PO DAILY 06/13/21 12/25/21 11/23/21 History mg-selen-D3 2,000 unit-vit E tablet (RenaPlex-D) aspirin 81 mg chewable tablet 81 mg PO DAILY 90 Days #90 tab 06/22/21 12/25/21 11/22/21 Rx (Children's Aspirin) clopidogrel 75 mg tablet 75 mg PO DAILY 90 Days #90 tab 06/22/21 12/25/21 11/23/21 Rx nitroglycerin 0.4 mg sublingual 0.4 mg SUBLINGUAL Q5M PRN 30 Days 06/22/21 12/25/21 07/20/21 Rx tablet #30 tab nystatin 100,000 unit/gram topical 1 applic TOPICAL BID #30 g 06/29/21 12/25/21 07/20/21 Rx cream furosemide 80 mg tablet 120 mg PO 0800,1400 #270 tab 09/14/21 12/25/21 11/23/21 Rx levothyroxine 150 mcg tablet 150 mcg PO DAILY #30 tab 10/14/21 12/25/21 11/23/21 Rx (Synthroid) isosorbide mononitrate 120 mg 120 mg PO DAILY #30 tab 11/09/21 12/25/21 11/23/21 Rx tablet,extended release 24 hr doxazosin 2 mg tablet (Cardura) 8 mg PO BID tab 11/16/21 12/25/21 11/23/21 History hydralazine 50 mg tablet 50 mg PO TID #90 tab 11/16/21 12/25/21 11/23/21 Rx psyllium husk 0.4 gram capsule 0.4 g PO DAILY 11/23/21 12/25/21 11/23/21 History (Metamucil) ondansetron HCl 4 mg tablet 8 mg PO Q8H PRN #10 tab 11/28/21 12/25/21 Unknown Rx promethazine-DM 6.25 mg-15 mg/5 mL 5 ml PO Q6H PRN #160 ml 12/10/21 12/25/21 Unknown Rx oral syrup calcium carbonate 470 mg calcium 3,531 mg PO . TID AND WITH MEALS 12/25/21 12/25/21 Unknown History (1,177 mg) chewable tablet (Tums Ultra) sevelamer carbonate 800 mg tablet 800 mg PO DAILY 12/25/21 12/25/21 Unknown History (Renvela) Allergies Allergy/AdvReac Type Severity Reaction Status Date / Time Iodinated Contrast Media Allergy ALGY-Hives Verified 12/02/21 15:19 PFSH Acute PFSH: Medical History Acute bronchitis Anemia Aortic valve endocarditis Bacteremia due to Staphylococcus EKG done this morning revealed normal sinus rhythm with a left axis deviation. Voltage area for LVH. No significant ST-T changes. 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 Neuropathy Protein-energy malnutrition Septic arthritis of left ankle Surgical History Central vascular catheter in place upon arrival History of cholecystectomy History of colonoscopy with polypectomy 2017 History of left below knee amputation History of lumbar surgery Due to epidural abscess in March 2018 Peritoneal dialysis catheter in place removal 05/20/21 S/P hemodialysis catheter insertion Status post below-knee amputation of left lower extremity Family History Mother Cancer Uterine and breast cancer Father Diabetes Other CAD (coronary artery disease) Social History Alcohol intake: current Alcohol intake frequency: holidays/special occasions only Female Reproductive History: Date of last menstrual period: 05/28/14 Vitals/I&O/Wt Last Vital Signs Temp 103.3 F H 12/25/21 05:50 Pulse 78 12/25/21 12:48 Resp 15 12/25/21 12:03 BP 117/54 12/25/21 12:48 Pulse Ox 99 12/25/21 12:48 12/25/21 12/25/21 12/25/21 06:59 14:59 22:59 Intake Total 1300 / 1300 Balance 1300 / 1300 Weight last 48 hrs Weight 101.605 kg Physical Exam Narrative: GEN: Awake, alert and oriented, no acute distress CVS: S1S2 N RS: CTA B/L all areas Abd: Soft, nt/nd , bs+ 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 ROOM 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: no focal neuro deficits RLE lymphedema+, cellulitic appeparance of leg , red, warm and mildly tender Data : 12/25/21 06:00 12/25/21 06:00 Micro: Microbiology 12/25/21 06:00 Blood Culture - Preliminary Blood SPECIMEN COLLECTED 12/25/21 05:50 Blood Culture - Preliminary Blood SPECIMEN COLLECTED A&P Assessment and plan (1) Sepsis: Status: Acute Plan Sepsis, as evidenced by fever, leukocytosis, multiple potential sources of infection currently under evaluation Currently has cellulitic apperanace of RLE, high risk given known lymphedema awaiting blood cx HD site looks healthy on appearance, awaiting blood cx Wound itself does not appear grossly infected No fluid bolus as HD patient empiric zosyn/vanc persistent right pleural effusion, s/p recent thoracentesis, decortication deferred due to multiple comorbidities, recent cx all negative, completed extended course of broad spectrum abx. CXR today shows serial improvement. if continues to be febrile, will likely obtain CT imaging of the chest for interval follow up pending c diff Nephrology consult to resume HD on schedule EF 25%, continue CHF medications including lasix, imdur Full code Attestations Medical Necessity Statement*: >2midnight admission anticipaited for sepsis, source under evaluation, need for iv abx, HD Coding Level of Care Code Acute Esl Instructor for g Fwd Diagnoses Sepsis A41.9
[2021-12-25] MEDS: nystatin cream 30 gm 1 APPLIC TOPICAL (21:10)
[2021-12-25] MEDS: carvedilol 25 mg Tablet PO (21:45)
[2021-12-25] MEDS: hyDRALAzine 50 mg Tablet PO (21:45)
[2021-12-25] MEDS: calcium carbonate 500 mg Chew Tablet 3000 MG PO (21:45)
[2021-12-25] MEDS: heparin 5,000 unit/mL INJ 1 mL 5000 UNIT SUBCUT (21:45)
[2021-12-25] MEDS: acetaminophen 325 mg Tablet 650 MG PO (21:46)
[2021-12-26] VITALS (10 sets, daily range): BP systolic 109–127; BP diastolic 58–74; PULSE 63–105; RESP 16–21; TEMP 36.4–37.4; O2SAT 92–100
[2021-12-26 01:23] LABS: Glucose Point of Care 128 mg/dL (70-110)
[2021-12-26 03:23] LABS: Bacillus cereus group Not Detected (NOT DETECT); Bacillus subtillis group Not Detected (NOT DETECT); Corynebacterium Not Detected (NOT DETECT); Cutibacterium acnes (P.acnes) Not Detected (NOT DETECT); Enterococcus Not Detected (NOT DETECT); Enterococcus faecalis Not Detected (NOT DETECT); Enterococcus faecium Not Detected (NOT DETECT); Lactobacillus species Not Detected (NOT DETECT); Listeria Not Detected (NOT DETECT); Listeria monocytogenes Not Detected (NOT DETECT); Micrococcus Not Detected (NOT DETECT); Pan Candida Not Detected (NOT DETECT); Pan Gram-Negative Not Detected (NOT DETECT); Staphylococcus epidermidis Not Detected (NOT DETECT); Staphylococcus lugdunensis Not Detected (NOT DETECT); Staphylococcus species Not Detected (NOT DETECT); Streptococcus agalactiae Not Detected (NOT DETECT); Streptococcus anginosus group Not Detected (NOT DETECT); Streptococcus pneumoniae Not Detected (NOT DETECT); Streptococcus pyogenes Not Detected (NOT DETECT); Streptococcus species Detected (NOT DETECT)
[2021-12-26 05:50] LABS: Basophils # 0.1 10^3/uL (0.0-0.1); Basophils % 0.5 %; Eosinophils # 0.1 10^3/uL (0.0-0.8); Eosinophils % 0.3 %; Hematocrit 25.2 % (37.0-47.0); Hemoglobin 7.9 g/dL (11.5-15.3); Lymphocytes # 0.7 10^3/uL (0.8-4.8); Lymphocytes % 4.4 %; Mean Corpuscular HGB Conc 31.3 g/dL (30.0-36.0); Mean Corpuscular Hemoglobin 33.9 pg (28.0-34.0); Mean Corpuscular Volume 108.2 fl (81-99); Mean Platelet Volume 10.8 fL (7.4-10.4); Monocytes # 0.8 10^3/uL (0.2-0.9); Monocytes % 5.2 %; Neutrophils # 13.26 10^3/uL (1.8-7.7); Neutrophils % 89.1 %; Nucleated Red Blood Cells % 0 %; Platelet Count 141 10^3/cmm (130-400); Red Blood Count 2.33 10^6/uL (4.1-5.3); White Blood Count 14.9 10^3/uL (4.0-10.0)
[2021-12-26 06:08] LABS: Alanine Aminotransferase 11 U/L (0-33); Albumin Level 3.1 g/dL (3.5-5.2); Alkaline Phosphatase 142 IU/L (35-105); Aspartate Amino Transferase 25 U/L (0-32); Blood Urea Nitrogen 27 mg/dL (6-20); Calcium 8.2 mg/dL (8.5-10.5); Carbon Dioxide 29 mmol/L (22-29); Chloride 94 mmol/L (98-107); Globulin 3.5 g/dL (1.3-4.6); Glomerular Filtration Rate 9.3 mL/min (90-130); Glucose 112 mg/dL (65-115); Osmolality Calculated 284 mOsm/kg (285-295); Sodium 134 mmol/L (136-145); Total Bilirubin 0.7 mg/dL (0.15-1.2); Total Protein 6.6 g/dL (6.6-8.7)
[2021-12-26 06:13] LABS: Anion Gap 15.4 (5-19); Potassium 4.4 mmol/L (3.5-5.1)
[2021-12-26] MEDS: heparin 5,000 unit/mL INJ 1 mL 5000 UNIT SUBCUT ×2 (06:43→17:18)
[2021-12-26] MEDS: sevelamer 800 mg Tablet PO (08:25)
[2021-12-26] MEDS: isosorbide mononitrate ER 60 mg Tablet 120 MG PO (08:25)
[2021-12-26] MEDS: calcium carbonate 500 mg Chew Tablet 3000 MG PO ×3 (08:25→20:41)
[2021-12-26] MEDS: hyDRALAzine 50 mg Tablet PO ×3 (08:26→20:41)
[2021-12-26] MEDS: clopidogrel 75 mg Tablet PO (08:26)
[2021-12-26] MEDS: FUROsemide 40 mg Tablet 120 MG PO ×2 (08:26→14:20)
[2021-12-26] MEDS: levothyroxine 150 mcg Tablet PO (08:26)
[2021-12-26] MEDS: carvedilol 25 mg Tablet PO ×2 (08:26→17:18)
[2021-12-26] MEDS: aspirin 81 mg Chew Tablet PO (08:26)
[2021-12-26] MEDS: pantoprazole DR 40 mg Tablet PO (08:26)
[2021-12-26] MEDS: piperacillin-tazobactam 3.375 GM in sodium chloride 0.9% (plus) 100 ML IV (10:40)
[2021-12-26 11:16] LABS: Glucose Point of Care 109 mg/dL (70-110)
[2021-12-26] MEDS: artificial tears Op Soln 15 mL Btl 1 DROP EYE-BOTH (14:19)
[2021-12-26 16:59] LABS: Glucose Point of Care 110 mg/dL (70-110)
[2021-12-26] MEDS: nystatin cream 30 gm 1 APPLIC TOPICAL (17:19)
--- NOTE | 2021-12-26 17:47 | PM.PN ---
Subjective Subjective: Afebrile over last 24 hours. States feeling improved today. Blood culture positive for Streptococcus species, awaiting further identification. Hemodynamically stable. Complains of pain over right leg. Cellulitis appears to be stable compared to yesterday's exam. 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 Data : 12/26/21 05:01 12/26/21 05:01 Micro: Microbiology 12/25/21 06:00 Blood Culture - Preliminary Blood Streptococcus Group C 12/25/21 05:50 Blood Culture - Preliminary Blood NEGATIVE TO DATE A&P Assessment and plan (1) Sepsis: Status: Acute Plan Sepsis, as evidenced by fever, leukocytosis Blood cx now positive for streptococcus species awaiting further identification Source suspected to be RLE cellulitis to which patient is highly susceptible given ssignificant lymphedema and recent debridement. HD site looks uninfected in appearance right plantar Wound itself does not appear grossly infected persistent right pleural effusion, s/p recent thoracentesis Nov 2021, decortication deferred due to multiple comorbidities, recent pleural cx all negative, completed extended course of broad spectrum abx. CXR today shows serial improvement. Less likely that persisting empyema is the source, however if strep spp turns out to be strep pneumo or if fails to improve with improvement in cellulitis, remains persistently bacteremia, will likely need CT imaging of the chest for interval follow up for empyema. Nephrology consult to resume HD on schedule EF 25%, ischemic cardiomyopathy, continue home meds D/c zosyn/vanc---> change to ceftriaxone 2g iv q24h. Attestations Medical Necessity Statement*: needs iv abx for treatment of strep bacteremia, HD Coding Level of Care Code Acute Labor Custodian for [facility] Fwd Diagnoses Sepsis A41.9
[2021-12-26] MEDS: cefTRIAXone 2,000 MG in sodium chloride 0.9% (plus) 100 ML 100 MG IV (18:19)
[2021-12-26 20:34] LABS: Glucose Point of Care 108 mg/dL (70-110)
[2021-12-26] MEDS: HYDROcodone-acetaminophen 5-325 mg Tablet 1 TAB PO (20:47)
[2021-12-27] VITALS (10 sets, daily range): BP systolic 106–148; BP diastolic 55–78; PULSE 62–99; RESP 13–18; TEMP 36.4–37.2; O2SAT 93–100
[2021-12-27 05:34] LABS: Basophils # 0.1 10^3/uL (0.0-0.1); Basophils % 0.4 %; Eosinophils # 0.3 10^3/uL (0.0-0.8); Eosinophils % 2.7 %; Hematocrit 23.8 % (37.0-47.0); Hemoglobin 7.4 g/dL (11.5-15.3); Lymphocytes # 0.8 10^3/uL (0.8-4.8); Mean Corpuscular HGB Conc 31.1 g/dL (30.0-36.0); Mean Corpuscular Hemoglobin 33.8 pg (28.0-34.0); Mean Corpuscular Volume 108.7 fl (81-99); Monocytes # 0.8 10^3/uL (0.2-0.9); Monocytes % 6.6 %; Neutrophils # 9.45 10^3/uL (1.8-7.7); Neutrophils % 82.9 %; Nucleated Red Blood Cells % 0 %; Platelet Count 169 10^3/cmm (130-400); Red Blood Count 2.19 10^6/uL (4.1-5.3); Red Cell Distribution Width 15.7 % (12.1-15.1); White Blood Count 11.4 10^3/uL (4.0-10.0)
[2021-12-27] MEDS: heparin 5,000 unit/mL INJ 1 mL 5000 UNIT SUBCUT ×2 (05:46→17:17)
[2021-12-27 05:49] LABS: Alanine Aminotransferase 12 U/L (0-33); Albumin Level 3.2 g/dL (3.5-5.2); Alkaline Phosphatase 148 IU/L (35-105); Anion Gap 17.4 (5-19); Aspartate Amino Transferase 21 U/L (0-32); Blood Urea Nitrogen 38 mg/dL (6-20); Calcium 8.2 mg/dL (8.5-10.5); Carbon Dioxide 26 mmol/L (22-29); Chloride 93 mmol/L (98-107); Globulin 3.6 g/dL (1.3-4.6); Glomerular Filtration Rate 8.1 mL/min (90-130); Glucose 117 mg/dL (65-115); Osmolality Calculated 284 mOsm/kg (285-295); Potassium 4.4 mmol/L (3.5-5.1); Sodium 132 mmol/L (136-145); Total Bilirubin 0.5 mg/dL (0.15-1.2); Total Protein 6.8 g/dL (6.6-8.7)
[2021-12-27 06:46] LABS: Glucose Point of Care 111 mg/dL (70-110)
--- NOTE | 2021-12-27 08:15 | P.CONIM_ITS ---
Providers/Reason For Consult Consulting Physician/Specialty*: dex dowd md / telenedphrology Reason for Consult*: ESRD care Requesting Physician: Dr. Althea Laboy Attending Physician: Ron Ca MD Primary Care Provider: Karen Bear MD History of Present Illness History of Present Illness Alesia Shaw is a 61 year old female h/o ESRD via tunnneled catheter MWF, CAD- multiple stents, htn, dmn, systolic dysfunction, hypothyroidism, L BKA. 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 She has a left sided pleural effusion which has been present since at least 06/2021 and has undergone thoracentesis on multiple occasions. The pt was admitted on 12/25 w/ fevers, diarrhea, leg swelling Pt was started on vanco and zosyn. Blood cultures grew strep and abx were changed to ceftriaxone. renal called today for ESRD care. Review of Systems Narrative: weak ,fevers, poor vision, h/a, sob, nausea, diarrhea, leg pains, edema. Medications/Allergies Home Medications Medication Instructions Recorded Confirmed Last Taken Type Stump Windows Server Architect #1 ea 01/12/21 12/25/21 07/20/21 Rx carvedilol 25 mg tablet (Coreg) 25 mg PO BID 05/19/21 12/25/21 11/23/21 History albuterol sulfate 90 mcg/actuation 2 puff INHALATION Q4H PRN 06/13/21 12/25/21 07/20/21 History aerosol inhaler (ProAir HFA) vit B,C-folic ac 800 mcg-zinc 12.5 1 tab PO DAILY 06/13/21 12/25/21 11/23/21 History mg-selen-D3 2,000 unit-vit E tablet (RenaPlex-D) aspirin 81 mg chewable tablet 81 mg PO DAILY 90 Days #90 tab 06/22/21 12/25/21 11/22/21 Rx (Children's Aspirin) clopidogrel 75 mg tablet 75 mg PO DAILY 90 Days #90 tab 06/22/21 12/25/21 11/23/21 Rx nitroglycerin 0.4 mg sublingual 0.4 mg SUBLINGUAL Q5M PRN 30 Days 06/22/21 12/25/21 07/20/21 Rx tablet #30 tab nystatin 100,000 unit/gram topical 1 applic TOPICAL BID #30 g 06/29/21 12/25/21 07/20/21 Rx cream furosemide 80 mg tablet 120 mg PO 0800,1400 #270 tab 09/14/21 12/25/21 11/23/21 Rx levothyroxine 150 mcg tablet 150 mcg PO DAILY #30 tab 10/14/21 12/25/21 11/23/21 Rx (Synthroid) isosorbide mononitrate 120 mg 120 mg PO DAILY #30 tab 11/09/21 12/25/21 11/23/21 Rx tablet,extended release 24 hr doxazosin 2 mg tablet (Cardura) 8 mg PO BID tab 11/16/21 12/25/21 11/23/21 History hydralazine 50 mg tablet 50 mg PO TID #90 tab 11/16/21 12/25/21 11/23/21 Rx psyllium husk 0.4 gram capsule 0.4 g PO DAILY 11/23/21 12/25/21 11/23/21 History (Metamucil) ondansetron HCl 4 mg tablet 8 mg PO Q8H PRN #10 tab 11/28/21 12/25/21 Unknown Rx promethazine-DM 6.25 mg-15 mg/5 mL 5 ml PO Q6H PRN #160 ml 12/10/21 12/25/21 Unknown Rx oral syrup calcium carbonate 470 mg calcium 3,531 mg PO . TID AND WITH MEALS 12/25/21 12/25/21 Unknown History (1,177 mg) chewable tablet (Tums Ultra) sevelamer carbonate 800 mg tablet 800 mg PO DAILY 12/25/21 12/25/21 Unknown History (Renvela) Allergies Allergy/AdvReac Type Severity Reaction Status Date / Time Iodinated Contrast Media Allergy ALGY-Hives Verified 12/02/21 15:19 Current Medications Generic Name Dose Route Start Last Admin Trade Name Freq PRN Reason Stop Dose Admin Acetaminophen 650 mg 12/25/21 10:33 12/25/21 21:46 Acetaminophen 325 Mg Tablet PO 650 mg Q6H PRN Administration Mild/Mod Pain Or Temp >/= 101 Hydrocodone Bitart/Acetaminophen 1 tab 12/26/21 17:59 12/26/21 20:47 Hydrocodone-Acetaminophen 5-325 Mg Tablet PO 1 tab Q4H PRN Administration MODERATE PAIN Artificial Tears 1 drop 12/26/21 13:51 12/26/21 14:19 Artificial Tears Op Soln 15 Ml Btl EYE-BOTH 1 drop Q4H PRN Administration DRY EYE(S) Aspirin 81 mg 12/26/21 09:00 12/26/21 08:26 Aspirin 81 Mg Chew Tablet PO 81 mg DAILY SHELBY Administration Calcium Carbonate 3,000 mg 12/25/21 21:00 12/26/21 20:41 Calcium Carbonate 500 Mg Chew Tablet PO 3,000 mg TID SHELBY Administration Carvedilol 25 mg 12/25/21 18:00 12/26/21 17:18 Carvedilol 25 Mg Tablet PO 25 mg BID SHELBY Administration Clopidogrel Bisulfate 75 mg 12/26/21 09:00 12/26/21 08:26 Clopidogrel 75 Mg Tablet PO 75 mg DAILY SHELBY Administration Furosemide 120 mg 12/26/21 08:00 12/26/21 14:20 Furosemide 40 Mg Tablet PO 120 mg 0800,1400 [facility] Administration Heparin Sodium (Porcine) 5,000 unit 12/25/21 18:15 12/27/21 05:46 Heparin 5,000 Unit/Ml Inj 1 Ml SUBCUT 5,000 unit Q12H SHELBY Administration Hydralazine HCl 50 mg 12/25/21 21:00 12/26/21 20:41 Hydralazine 50 Mg Tablet PO 50 mg TID [facility] Administration Ceftriaxone Sodium 2,000 mg/ 100 mls @ 100 mls/hr 12/26/21 18:00 12/26/21 21:48 Sodium Chloride IV Infused Q24H [facility] Infusion Protocol Insulin Human Lispro 0 unit 12/25/21 18:00 12/27/21 07:16 Insulin Lispro 100 Unit/1 Ml SUBCUT Not Given WM&BEDTIME [facility] Protocol Isosorbide Mononitrate 120 mg 12/26/21 09:00 12/26/21 08:25 Isosorbide Mononitrate Er 60 Mg Tablet PO 120 mg DAILY [facility] Administration Levothyroxine Sodium 150 mcg 12/26/21 09:00 12/26/21 08:26 Levothyroxine 150 Mcg Tablet PO 150 mcg DAILY [facility] Administration Nystatin 1 applic 12/25/21 18:00 12/26/21 17:19 Nystatin Cream 30 Gm TOPICAL 1 cream BID SHELBY Administration Ondansetron HCl 4 mg 12/25/21 10:33 12/25/21 21:46 Ondansetron 2 Mg/Ml Sdv 2 Ml IVP 4 mg Q8H PRN Administration vomiting, or N/V if npo Pantoprazole Sodium 40 mg 12/26/21 09:00 12/26/21 08:[address] 40 Mg Tablet PO 40 mg DAILY SHELBY Administration Sevelamer Carbonate 800 mg 12/26/21 09:00 12/26/21 08:25 Sevelamer 800 Mg Tablet PO 800 mg DAILY SHELBY Administration PFSH Acute PFSH: Medical History Acute bronchitis Anemia Aortic valve endocarditis Bacteremia due to Staphylococcus EKG done this morning revealed normal sinus rhythm with a left axis deviation. Voltage area for LVH. No significant ST-T changes. 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 Neuropathy Protein-energy malnutrition Septic arthritis of left ankle Surgical History Central vascular catheter in place upon arrival History of cholecystectomy History of colonoscopy with polypectomy 2017 History of left below knee amputation History of lumbar surgery Due to epidural abscess in March 2018 Peritoneal dialysis catheter in place removal 05/20/21 S/P hemodialysis catheter insertion Status post below-knee amputation of left lower extremity Family History Mother Cancer Uterine and breast cancer Father Diabetes Other CAD (coronary artery disease) Social History Alcohol intake: current Alcohol intake frequency: holidays/special occasions on ly Female Reproductive History: Date of last menstrual period: 05/28/14 Vitals/I&O/Wt Last Vital Signs Temp 97.8 F 12/27/21 07:30 Pulse 62 12/27/21 07:30 Resp 14 12/27/21 07:30 BP 138/70 12/27/21 07:30 Pulse Ox 100 12/27/21 07:30 12/26/21 12/27/21 12/27/21 22:59 06:59 14:59 Intake Total 710 / 1410 Balance 710 / 1410 Weight last 48 hrs Weight 105.959 kg Physical Exam Narrative: VSS, obese, in bed, sob using nc02 heent- nc/at, eomi, anicteric neck -supple lungs crackles, dull bases heart reg, + memo abd soft, nt, nd, + bs ext LLE BKA RLE edema, red neuro- a,a, o x 3 Data : 12/27/21 04:47 12/27/21 04:47 Micro: Microbiology 12/27/21 04:55 Blood Culture - Preliminary Blood SPECIMEN COLLECTED 12/27/21 04:47 Blood Culture - Preliminary Blood SPECIMEN COLLECTED 12/25/21 06:00 Blood Culture - Preliminary Blood Streptococcus Group C 12/25/21 05:50 Blood Culture - Preliminary Blood NEGATIVE TO DATE A&P Assessment and plan (1) Chronic kidney disease with end stage renal failure on dialysis: 61 yr old female 1. ESRD - dec bp meds- to allow for fluid removal on HD HD now- 3.5 hrs, 3k, remove 3l as lena 2. strep group c bacteremia - ceftriacxone -repeat blood cultures on HD today 3. ischemic CM- EF 25% 4. anemia- no iv iron w/ bacteremia -use kendall 5. hyponatremia- check tsh -monitor w/ HD 6. cxr- w/ improving pleural effusions pt seen and examine dw/ RN- telehealth visit informed consent for telehealth obtained time spent 50 + minutes Status: Acute Plan see aboe Consult Attestations Medical Necessity Statement: bacteremia Time Spent in Patient Care: Greater than 35 minutes (>than 50% of time spent in counselling and/or direct pt care on unit) . Coding Level of Care Code Acute Ironing Pleater for Chg Fwd Diagnoses Chronic kidney disease with end stage renal failure on dialysis N18.6; Z99.2
[2021-12-27] MEDS: calcium carbonate 500 mg Chew Tablet 3000 MG PO (08:17)
[2021-12-27] MEDS: hyDRALAzine 50 mg Tablet PO (08:18)
[2021-12-27] MEDS: carvedilol 25 mg Tablet PO ×2 (08:18→17:17)
[2021-12-27] MEDS: isosorbide mononitrate ER 60 mg Tablet 120 MG PO (08:18)
[2021-12-27] MEDS: sevelamer 800 mg Tablet PO (08:18)
[2021-12-27] MEDS: levothyroxine 150 mcg Tablet PO (08:18)
[2021-12-27] MEDS: FUROsemide 40 mg Tablet 120 MG PO (08:18)
[2021-12-27] MEDS: clopidogrel 75 mg Tablet PO (08:18)
[2021-12-27] MEDS: aspirin 81 mg Chew Tablet PO (08:18)
[2021-12-27] MEDS: pantoprazole DR 40 mg Tablet PO (08:18)
[2021-12-27] MEDS: nystatin cream 30 gm 1 APPLIC TOPICAL ×2 (08:19→17:20)
[2021-12-27] MEDS: b-complex-vitamin c Tablet 1 EACH PO (09:29)
[2021-12-27] MEDS: heparin, porcine 1,000 unit/mL INJ 10 mL HE (09:29)
[2021-12-27 11:41] LABS: Glucose Point of Care 103 mg/dL (70-110)
--- NOTE | 2021-12-27 12:28 | PM.PN ---
Subjective Subjective: Patient was seen and examined this morning, denies any shortness of breath, complaining of chronic cough, as well as lower extremity discomfort. Completed dialysis session today, continue to remain afebrile , Medications: Reviewed: Yes Medication Review Details: Generic Name Dose Route Start Last Admin Trade Name Freq PRN Reason Stop Dose Admin Acetaminophen 650 mg 12/25/21 10:33 12/27/21 13:24 Acetaminophen 32 5 Mg Tablet PO 650 mg Q6H PRN Administration Mild/Mod Pain Or Temp >/= 101 Hydrocodone Bitart /Acetaminophen 1 tab 12/26/21 17:59 12/27/21 17:19 Hydrocodone-Acet aminophen 5-325 Mg Tablet PO 1 tab Q4H PRN Administration MODERATE PAIN Artificial Tears 1 drop 12/26/21 13:51 12/26/21 14:19 Artificial Tears Op Soln 15 Ml Btl EYE-BOTH 1 drop Q4H PRN Administration DRY EYE(S) Aspirin 81 mg 12/26/21 09:00 12/27/21 08:18 Aspirin 81 Mg Ch ew Tablet PO 81 mg DAILY [facility] Administration Carvedilol 25 mg 12/25/21 18:00 12/27/21 17:17 Carvedilol 25 Mg Tablet PO 25 mg BID [facility] Administration Clopidogrel Bisulf ate 75 mg 12/26/21 09:00 12/27/21 08:18 Clopidogrel 75 M g Tablet PO 75 mg DAILY [facility] Administration Furosemide 120 mg 12/26/21 08:00 12/27/21 13:27 Furosemide 40 Mg Tablet PO Not Given 0800,1400 [facility] Heparin Sodium (Po rcine) 5,000 unit 12/25/21 18:15 12/27/21 17:17 Heparin 5,000 Un it/Ml Inj 1 Ml SUBCUT 5,000 unit Q12H [facility] Administration Ceftriaxone Sodium 2,000 mg/ 100 mls @ 100 mls /hr 12/26/21 18:00 12/27/21 17:17 Sodium Chloride IV 100 mls/hr Q24H SHE[facility] Administration Protocol Insulin Human Lisp ro 0 unit 12/25/21 18:00 12/27/21 17:20 Insulin Lispro 1 00 Unit/1 Ml SUBCUT Not Given WM&BEDTIME [facility] Protocol Isosorbide Mononit rate 120 mg 12/26/21 09:00 12/27/21 08:18 Isosorbide [place] itrate Er 60 Mg Ta blet PO 120 mg DAILY [facility] Administration Levothyroxine Sodi um 150 mcg 12/26/21 09:00 12/27/21 08:18 Levothyroxine 15 0 Mcg Tablet PO 150 mcg DAILY [facility] Administration Multivitamins 1 each 12/27/21 09:00 12/27/21 09:29 [id number]-Uqunuvx-Dziwfr n C Tablet PO 1 each DAILY [facility] Administration Nystatin 1 applic 12/25/21 18:00 12/27/21 17:20 Nystatin Cream 3 0 Gm TOPICAL 1 cream BID [facility] Administration Ondansetron HCl 4 mg 12/25/21 10:33 12/25/21 21:46 Ondansetron 2 Mg /Ml Sdv 2 Ml IVP 4 mg Q8H PRN Administration vomiting, or N/V if npo Pantoprazole Sodiu m 40 mg 12/26/21 09:00 12/27/21 08:[address] 40 Mg Tablet PO 40 mg DAILY [facility] Administration Sevelamer Carbonat e 800 mg 12/26/21 09:00 12/27/21 08:18 Sevelamer 800 Mg Tablet PO 800 mg DAILY [facility] Administration Vitals/I&O/Wt Last Vital Signs Temp 97.8 F 12/27/21 07:30 Pulse 62 12/27/21 11:43 Resp 16 12/27/21 11:43 BP 138/70 12/27/21 07:30 Pulse Ox 94 12/27/21 11:43 12/26/21 12/27/21 12/27/21 22:59 06:59 14:59 Intake Total 710 / 1410 150 / 150 Balance 710 / 1410 150 / 150 Weight last 48 hrs Weight 105.959 kg Physical Exam Const: COMMON NORMALS: patient oriented x3 HENMT: COMMON NORMALS: normocephalic, atraumatic, hearing grossly normal bilaterally and external ears normal HEAD & SCALP: normocephalic and atraumatic EXTERNAL EAR: Yes external ears normal Eye: COMMON NORMALS: no scleral icterus GENERAL EYE: appearance normal, both eyes and all related structures Chest: COMMONS NORMALS: normal inspection of the chest and normal palpation of entire chest wall CHEST: Yes Symmetrical chest wall rise Resp: COMMON NORMALS: normal respiratory effort, No retractions, No use of accessory muscles and clear to auscultation bilaterally EFFORT & INSPECTION: Yes symmetric chest movement AUSCULTATION: clear to auscultation bilaterally Cardio: COMMON NORMALS: regular rate, regular rhythm, S1 normal heart sound present, S2 normal heart sound present, No gallops present (Cardio), No murmurs present (Cardio), No rub (Cardio) and Peripheral pulses 2+ throughout RATE: regular rate RHYTHM: regular rhythm HEART SOUNDS: S1 normal heart sound present and S2 normal heart sound present PERIPHERAL PULSES: Peripheral pulses 2+ throughout GI: COMMON NORMALS: Normal to inspection, nondistended, normoactive bowel sounds present, Soft to palpation, non-tender, No hepatosplenomegaly present and no masses AUSCULTATION: Yes normoactive bowel sounds PALPATION: Yes Soft to palpation and Yes No hepatosplenomegaly present RECTAL EXAM: deferred Extremity: COMMON NORMALS: no clubbing, cyanosis or edema and no pedal edema Neuro: COMMON NORMALS: patient oriented x3 Data : 12/27/21 04:47 12/27/21 04:47 Micro: Microbiology 12/27/21 04:55 Blood Culture - Preliminary Blood SPECIMEN COLLECTED 12/27/21 04:47 Blood Culture - Preliminary Blood SPECIMEN COLLECTED 12/25/21 06:00 Blood Culture - Preliminary Blood Streptococcus Group C A&P Assessment and plan (1) Sepsis: Status: Acute Plan Sepsis: Likely secondary to right lower extremity cellulitis, HD site looks uninfected in appearance, Blood cx positive for streptococcus group C. Follow repeat blood culture: right plantar Wound itself does not appear grossly infected persistent right pleural effusion, s/p recent thoracentesis Nov 2021, decortication deferred due to multiple comorbidities, recent pleural cx all negative, completed extended course of broad spectrum abx. CXR today shows serial improvement. Less likely that persisting empyema is the source, however if strep spp turns out to be strep pneumo or if fails to improve with improvement in cellulitis, remains persistently bacteremia, will likely need CT imaging of the chest for interval follow up for empyema. Nephrology consult to resume HD on schedule EF 25%, ischemic cardiomyopathy, continue home meds Was initially on zosyn/vanc---> currently on ceftriaxone 2g iv q24h. Attestations Medical Necessity Statement*: Patient is to be in hospital for management of sepsis. Time Spent in Patient Care: Greater than 35 minutes (>than 50% of time spent in counselling and/or direct pt care on unit). 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
[2021-12-27] MEDS: acetaminophen 325 mg Tablet 650 MG PO (13:24)
[2021-12-27 17:04] LABS: Uric Acid 4.7 mg/dL (2.4-5.7)
[2021-12-27 17:13] LABS: Hepatitis B Surface Antigen Non-Reactive (Nonreactive); Hepatitis C Virus Antibody Non-Reactive (Nonreactive)
[2021-12-27] MEDS: cefTRIAXone 2,000 MG in sodium chloride 0.9% (plus) 100 ML 100 MG IV (17:17)
[2021-12-27] MEDS: HYDROcodone-acetaminophen 5-325 mg Tablet 1 TAB PO (17:19)
[2021-12-27 20:54] LABS: Glucose Point of Care 126 mg/dL (70-110)
[2021-12-27 22:46] LABS: Hepatitis B Surface AB > 1000.0 (11.5-1000)
[2021-12-28] VITALS (8 sets, daily range): BP systolic 131–164; BP diastolic 72–89; PULSE 61–110; RESP 15–20; TEMP 36.6–37.3; O2SAT 92–99
[2021-12-28] MEDS: acetaminophen 325 mg Tablet 650 MG PO ×2 (02:39→21:50)
[2021-12-28 05:19] LABS: Basophils # 0.1 10^3/uL (0.0-0.1); Basophils % 0.7 %; Eosinophils # 0.3 10^3/uL (0.0-0.8); Eosinophils % 4.2 %; Hematocrit 25.2 % (37.0-47.0); Hemoglobin 7.8 g/dL (11.5-15.3); Lymphocytes # 0.7 10^3/uL (0.8-4.8); Lymphocytes % 9.4 %; Mean Corpuscular Hemoglobin 33.1 pg (28.0-34.0); Mean Corpuscular Volume 106.8 fl (81-99); Mean Platelet Volume 10.7 fL (7.4-10.4); Monocytes # 0.6 10^3/uL (0.2-0.9); Monocytes % 8.7 %; Neutrophils # 5.28 10^3/uL (1.8-7.7); Neutrophils % 76.4 %; Nucleated Red Blood Cells % 0 %; Platelet Count 174 10^3/cmm (130-400); Red Blood Count 2.36 10^6/uL (4.1-5.3); Red Cell Distribution Width 15.8 % (12.1-15.1); White Blood Count 6.9 10^3/uL (4.0-10.0)
[2021-12-28] MEDS: heparin 5,000 unit/mL INJ 1 mL 5000 UNIT SUBCUT ×2 (05:37→18:24)
[2021-12-28 05:44] LABS: Alanine Aminotransferase 14 U/L (0-33); Albumin Level 3.3 g/dL (3.5-5.2); Alkaline Phosphatase 191 IU/L (35-105); Anion Gap 14.2 (5-19); Aspartate Amino Transferase 19 U/L (0-32); Blood Urea Nitrogen 27 mg/dL (6-20); Calcium 8.9 mg/dL (8.5-10.5); Carbon Dioxide 27 mmol/L (22-29); Chloride 96 mmol/L (98-107); Glomerular Filtration Rate 11.8 mL/min (90-130); Glucose 116 mg/dL (65-115); Iron 69 ug/dL (37-145); Magnesium 2.1 mg/dL (1.7-2.3); Osmolality Calculated 282 mOsm/kg (285-295); Potassium 4.2 mmol/L (3.5-5.1); Sodium 133 mmol/L (136-145); Total Bilirubin 0.5 mg/dL (0.15-1.2); Total Iron Binding Capacity 106 mcg/dl; Total Protein 7.3 g/dL (6.6-8.7); Unsaturated Iron Binding 37 ug/dL (112-347)
[2021-12-28 05:59] LABS: 25 Hydroxy Vitamin D 35 ng/mL (30-100); Calcium 8.9 mg/dL (8.5-10.5)
[2021-12-28 06:02] LABS: Ferritin 1253 ng/mL (15-150)
[2021-12-28 06:06] LABS: Parathyroid Hormone 77.3 pg/mL (15-65)
[2021-12-28 06:48] LABS: Glucose Point of Care 98 mg/dL (70-110)
[2021-12-28] MEDS: isosorbide mononitrate ER 60 mg Tablet 120 MG PO (08:40)
[2021-12-28] MEDS: aspirin 81 mg Chew Tablet PO (08:40)
[2021-12-28] MEDS: sevelamer 800 mg Tablet PO (08:40)
[2021-12-28] MEDS: levothyroxine 150 mcg Tablet PO (08:41)
[2021-12-28] MEDS: carvedilol 25 mg Tablet PO ×2 (08:41→18:24)
[2021-12-28] MEDS: pantoprazole DR 40 mg Tablet PO (08:41)
[2021-12-28] MEDS: FUROsemide 40 mg Tablet 120 MG PO ×2 (08:41→14:21)
[2021-12-28] MEDS: clopidogrel 75 mg Tablet PO (08:41)
[2021-12-28] MEDS: nystatin cream 30 gm 1 APPLIC TOPICAL ×2 (08:41→20:22)
[2021-12-28] MEDS: b-complex-vitamin c Tablet 1 EACH PO (08:41)
[2021-12-28] MEDS: ondansetron 2 mg/ML SDV 2 mL 4 MG IVP ×2 (08:46→18:24)
--- NOTE | 2021-12-28 09:26 | PM.PN ---
Subjective Subjective: weak. lethargic, swollen, sob, poor appetite Medications: Reviewed: Yes Medication Review Details: Current Medications Acetaminophen (Acetaminophen 325 Mg Tablet) 650 mg PO Q6H PRN PRN Reason: Mild/Mod Pain Or Temp >/= 101 Last Admin: 12/28/21 02:39 Dose: 650 mg Documented by: Hydrocodone Bitart/Acetaminophen (Hydrocodone-Acetaminophen 5-325 Mg Tablet) 1 tab PO Q4H PRN PRN Reason: MODERATE PAIN Last Admin: 12/27/21 17:19 Dose: 1 tab Documented by: Albuterol/Ipratropium (Ipratropium-Albuterol 3 Ml Neb) 3 ml INHALATION Q4H PRN PRN Reason: SHORTNESS OF BREATH Artificial Tears (Artificial Tears Op Soln 15 Ml Btl) 1 drop EYE-BOTH Q4H PRN PRN Reason: DRY EYE(S) Last Admin: 12/26/21 14:19 Dose: 1 drop Documented by: Aspirin (Aspirin 81 Mg Chew Tablet) 81 mg PO DAILY [facility] Last Admin: 12/28/21 08:40 Dose: 81 mg Documented by: Carvedilol (Carvedilol 25 Mg Tablet) 25 mg PO BID [facility] Last Admin: 12/28/21 08:41 Dose: 25 mg Documented by: Clopidogrel Bisulfate (Clopidogrel 75 Mg Tablet) 75 mg PO DAILY [facility] Last Admin: 12/28/21 08:41 Dose: 75 mg Documented by: Dextrose (Dextrose 50% Sdv 50 Ml) 25 ml IVP ONCE PRN; Protocol PRN Reason: hypoglycemia protocol Dextrose (Dextrose 50% Sdv 50 Ml) 50 ml IVP PRN PRN; Protocol PRN Reason: hypoglycemia protocol Furosemide (Furosemide 40 Mg Tablet) 120 mg PO 0800,1400 [facility] Last Admin: 12/28/21 08:41 Dose: 120 mg Documented by: Glucagon (Glucagon 1 Mg/Ml Inj 1 Ml) 1 mg IM ONCE PRN; Protocol PRN Reason: Adult Acute Hypoglycemia Prot. Heparin Sodium (Porcine) (Heparin 5,000 Unit/Ml Inj 1 Ml) 5,000 unit SUBCUT Q12H [facility] Last Admin: 12/28/21 05:37 Dose: 5,000 unit Documented by: Dextrose (D5w) 500 mls @ 100 mls/hr IV ONCE PRN; Protocol PRN Reason: Adult Acute Hypoglycemia Prot Ceftriaxone Sodium 2,000 mg/ (Sodium Chloride) 100 mls @ 100 mls/hr IV Q24H [facility]; Protocol Last Infusion: 12/28/21 05:36 Dose: Infused Documented by: Albumin Human (Albumin) 12.5 gm in 50 mls @ 60 mls/hr IV PRN PRN PRN Reason: Hypotension and/or symptomatic Insulin Human Lispro (Insulin Lispro 100 Unit/1 Ml) 0 unit SUBCUT WM&BEDTIME SHELBY; Protocol Last Admin: 12/28/21 08:12 Dose: Not Given Documented by: Isosorbide Mononitrate (Isosorbide Mononitrate Er 60 Mg Tablet) 120 mg PO DAILY [facility] Last Admin: 12/28/21 08:40 Dose: 120 mg Documented by: Lanolin (Lanolin Oint 7 Gm) 1 applic TOPICAL PRN PRN PRN Reason: DRYNESS Levothyroxine Sodium (Levothyroxine 150 Mcg Tablet) 150 mcg PO DAILY [facility] Last Admin: 12/28/21 08:41 Dose: 150 mcg Documented by: Multivitamins (B-Yreqmwx-Hxflbki C Tablet) 1 each PO DAILY [facility] Last Admin: 12/28/21 08:41 Dose: 1 each Documented by: Nitroglycerin (Nitroglycerin 0.4 Mg Sublingual Tablet) 0.4 mg SUBLINGUAL Q5M PRN PRN Reason: Chest Pain Nystatin (Nystatin Cream 30 Gm) 1 applic TOPICAL BID [facility] Last Admin: 12/28/21 08:41 Dose: 1 cream Documented by: Ondansetron HCl (Ondansetron 2 Mg/Ml Sdv 2 Ml) 4 mg IVP Q8H PRN PRN Reason: vomiting, or N/V if npo Last Admin: 12/28/21 08:46 Dose: 4 mg Documented by: Pantoprazole Sodium (Pantoprazole Dr 40 Mg Tablet) 40 mg PO DAILY [facility] Last Admin: 12/28/21 08:41 Dose: 40 mg Documented by: Promethazine HCl/Dextromethorphan (Promethazine-Dm 6.25-15 Mg/5 Ml Syrup) 5 ml PO Q6H PRN PRN Reason: cough Sevelamer Carbonate (Sevelamer 800 Mg Tablet) 800 mg PO DAILY [facility] Last Admin: 12/28/21 08:40 Dose: 800 mg Documented by: Vitals/I&O/Wt Last Vital Signs Temp 98.0 F 12/28/21 07:42 Pulse 62 12/28/21 09:00 Resp 17 12/28/21 09:00 BP 164/83 12/28/21 07:42 Pulse Ox 92 12/28/21 09:00 12/27/21 12/28/21 12/28/21 22:59 06:59 14:59 Intake Total 360 / 510 100 / 610 Balance 360 / 510 100 / 610 Physical Exam Narrative: VSS, obese, in bed, less sob heent- nc/at, eomi, anicteric neck -supple lungs crackles, dull bases heart reg, + memo abd soft, nt, nd, + bs ext LLE BKA RLE edema, red neuro- a,a, o x 3 Data : 12/28/21 04:35 12/28/21 04:35 Micro: Microbiology 12/27/21 04:55 Blood Culture - Preliminary Blood NEGATIVE TO DATE 12/27/21 04:47 Blood Culture - Preliminary Blood NEGATIVE TO DATE 12/27/21 15:00 Blood Culture - Preliminary Blood SPECIMEN COLLECTED 12/27/21 15:00 Blood Culture - Preliminary Blood SPECIMEN COLLECTED A&P Assessment and plan (1) Chronic kidney disease with end stage renal failure on dialysis: 61 yr old female 1. ESRD - challenge fluid removal on HD HD in am- 3.5 hrs, 3k, remove 3l as lena -pth low for ESRD no vit d analouges 2. strep group c bacteremia - ceftriacxone -repeat blood cultures NGTD 3. ischemic CM- EF 25% 4. anemia- no iv iron w/ bacteremia. ferritin 1253 -use kendall 5. hyponatremia- check tsh -low 0.9 -monitor w/ HD 6. cxr- w/ improving pleural effusions pt seen and examine dw/ RN- telehealth visit time spent 25 minutes Status: Acute Plan see aboe Attestations Medical Necessity Statement*: CHF, ESRD Time Spent in Patient Care: 16 - 35 minutes (>than 50% of time spent in counselling and/or direct pt care on unit). 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
[2021-12-28 10:01] LABS: ABG PH Result 7.47 (7.35-7.45); Arterial Blood Gas Hematocrit 26.8 % (37-47); Base Excess ABG 5.9 mmol/L (-2.0-2.0); Blood Gas Allen Test Pos; Blood Gas Sample Site Radial, right; Blood Gas Sample Type Arterial; HCO3 ABG 30.2 mmol/L (22-26); Oxygen Device NC
[2021-12-28 11:12] LABS: Glucose Point of Care 122 mg/dL (70-110)
--- NOTE | 2021-12-28 11:42 | PM.PN ---
Subjective Subjective: Patient was seen and examined this morning, she was complaining of nausea. Medications: Reviewed: Yes Medication Review Details: Generic Name Dose Route Start Last Admin Trade Name Freq PRN Reason Stop Dose Admin Acetaminophen 650 mg 12/25/21 10:33 12/27/21 13:24 Acetaminophen 32 5 Mg Tablet PO 650 mg Q6H PRN Administration Mild/Mod Pain Or Temp >/= 101 Hydrocodone Bitart /Acetaminophen 1 tab 12/26/21 17:59 12/27/21 17:19 Hydrocodone-Acet aminophen 5-325 Mg Tablet PO 1 tab Q4H PRN Administration MODERATE PAIN Artificial Tears 1 drop 12/26/21 13:51 12/26/21 14:19 Artificial Tears Op Soln 15 Ml Btl EYE-BOTH 1 drop Q4H PRN Administration DRY EYE(S) Aspirin 81 mg 12/26/21 09:00 12/27/21 08:18 Aspirin 81 Mg Ch ew Tablet PO 81 mg DAILY [facility] Administration Carvedilol 25 mg 12/25/21 18:00 12/27/21 17:17 Carvedilol 25 Mg Tablet PO 25 mg BID [facility] Administration Clopidogrel Bisulf ate 75 mg 12/26/21 09:00 12/27/21 08:18 Clopidogrel 75 M g Tablet PO 75 mg DAILY [facility] Administration Furosemide 120 mg 12/26/21 08:00 12/27/21 13:27 Furosemide 40 Mg Tablet PO Not Given 0800,1400 [facility] Heparin Sodium (Po rcine) 5,000 unit 12/25/21 18:15 12/27/21 17:17 Heparin 5,000 Un it/Ml Inj 1 Ml SUBCUT 5,000 unit Q12H [facility] Administration Ceftriaxone Sodium 2,000 mg/ 100 mls @ 100 mls /hr 12/26/21 18:00 12/27/21 17:17 Sodium Chloride IV 100 mls/hr Q24H [facility] Administration Protocol Insulin Human Lisp ro 0 unit 12/25/21 18:00 12/27/21 17:20 Insulin Lispro 1 00 Unit/1 Ml SUBCUT Not Given WM&BEDTIME [facility] Protocol Isosorbide Mononit rate 120 mg 12/26/21 09:00 12/27/21 08:18 Isosorbide [place] itrate Er 60 Mg Ta blet PO 120 mg DAILY [facility] Administration Levothyroxine Sodi um 150 mcg 12/26/21 09:00 12/27/21 08:18 Levothyroxine 15 0 Mcg Tablet PO 150 mcg DAILY [facility] Administration Multivitamins 1 each 12/27/21 09:00 12/27/21 09:29 [id number]-Cqljbwc-Ixbylq n C Tablet PO 1 each DAILY [facility] Administration Nystatin 1 applic 12/25/21 18:00 12/27/21 17:20 Nystatin Cream 3 0 Gm TOPICAL 1 cream BID [facility] Administration Ondansetron HCl 4 mg 12/25/21 10:33 12/25/21 21:46 Ondansetron 2 Mg /Ml Sdv 2 Ml IVP 4 mg Q8H PRN Administration vomiting, or N/V if npo Pantoprazole Sodiu m 40 mg 12/26/21 09:00 12/27/21 08:[address] 40 Mg Tablet PO 40 mg DAILY [facility] Administration Sevelamer Carbonat e 800 mg 12/26/21 09:00 12/27/21 08:18 Sevelamer 800 Mg Tablet PO 800 mg DAILY [facility] Administration Vitals/I&O/Wt Last Vital Signs Temp 98.0 F 12/28/21 07:42 Pulse 62 12/28/21 09:00 Resp 17 12/28/21 09:00 BP 164/83 12/28/21 07:42 Pulse Ox 92 12/28/21 09:00 12/27/21 12/28/21 12/28/21 22:59 06:59 14:59 Intake Total 360 / 510 100 / 610 360 / 360 Balance 360 / 510 100 / 610 360 / 360 Physical Exam Const: COMMON NORMALS: patient oriented x3 HENMT: COMMON NORMALS: normocephalic, atraumatic, hearing grossly normal bilaterally and external ears normal HEAD & SCALP: normocephalic and atraumatic EXTERNAL EAR: Yes external ears normal Eye: COMMON NORMALS: no scleral icterus GENERAL EYE: appearance normal, both eyes and all related structures Chest: COMMONS NORMALS: normal inspection of the chest and normal palpation of entire chest wall CHEST: Yes Symmetrical chest wall rise Resp: COMMON NORMALS: normal respiratory effort, No retractions, No use of accessory muscles and clear to auscultation bilaterally EFFORT & INSPECTION: Yes symmetric chest movement AUSCULTATION: clear to auscultation bilaterally Cardio: COMMON NORMALS: regular rate, regular rhythm, S1 normal heart sound present, S2 normal heart sound present, No gallops present (Cardio), No murmurs present (Cardio), No rub (Cardio) and Peripheral pulses 2+ throughout RATE: regular rate RHYTHM: regular rhythm HEART SOUNDS: S1 normal heart sound present and S2 normal heart sound present PERIPHERAL PULSES: Peripheral pulses 2+ throughout GI: COMMON NORMALS: Normal to inspection, nondistended, normoactive bowel sounds present, Soft to palpation, non-tender, No hepatosplenomegaly present and no masses AUSCULTATION: Yes normoactive bowel sounds PALPATION: Yes Soft to palpation and Yes No hepatosplenomegaly present RECTAL EXAM: deferred Extremity: COMMON NORMALS: no clubbing, cyanosis or edema and no pedal edema NARRATIVE EXTREMITY EXAM: RT FOOT Chronic Ulcer, RT lower extremity redness. Neuro: COMMON NORMALS: patient oriented x3 Data : 12/28/21 04:35 12/28/21 04:35 Micro: Microbiology 12/27/21 04:55 Blood Culture - Preliminary Blood NEGATIVE TO DATE 12/27/21 04:47 Blood Culture - Preliminary Blood NEGATIVE TO DATE 12/27/21 15:00 Blood Culture - Preliminary Blood SPECIMEN COLLECTED 12/27/21 15:00 Blood Culture - Preliminary Blood SPECIMEN COLLECTED A&P Assessment and plan (1) Sepsis: Status: Acute Plan Sepsis: Likely secondary to right lower extremity cellulitis, HD site looks uninfected in appearance, Blood cx positive for streptococcus group C. Follow repeat blood culture: right plantar Wound itself does not appear grossly infected Follow C.T Scan of rt foot without contrast. persistent right pleural effusion, s/p recent thoracentesis Nov 2021, decortication deferred due to multiple comorbidities, recent pleural cx all negative, completed extended course of broad spectrum abx. CXR today shows serial improvement. Less likely that persisting empyema is the source, however if strep spp turns out to be strep pneumo or if fails to improve with improvement in cellulitis, remains persistently bacteremia, will likely need CT imaging of the chest for interval follow up for empyema. Nephrology consult to resume HD on schedule EF 25%, ischemic cardiomyopathy, continue home meds Was initially on zosyn/vanc---> currently on ceftriaxone 2g iv q24h. Attestations Medical Necessity Statement*: Patient is to be in hospital for management of sepsis, continued need of IV antibiotics, continued need for hemodialysis. 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
--- NOTE | 2021-12-28 13:10 | PC.SOCIAL ---
Pg 2 IMM Explained to pt IMM. No questions voiced. Provided pt a copy. Initialed, dated, & timed a copy & placed in chart.
--- NOTE | 2021-12-28 16:45 | CTR_ITS ---
PROCEDURE INFORMATION: Exam: CT Right Lower Extremity Without Contrast, Foot Exam date and time: 12/28/2021 4:45 PM Age: 61 years old Clinical indication: Cellulitis and edema; Location not specified; Foot; Right; Additional info: RT foot chronic ulcer R/O osteo TECHNIQUE: Imaging protocol: CT of the Right lower extremity without contrast was performed. Exam focused on the foot. Radiation optimization: All CT scans at this facility use at least one of these dose optimization techniques: automated exposure control; mA and/or kV adjustment per patient size (includes targeted exams where dose is matched to clinical indication); or iterative reconstruction. COMPARISON: CR (LOW EXM, ) 12/25/2021 6:30 AM RADIATION DOSE METRICS: Total DLP (mGy-cm): 480.07 FINDINGS: Bones/joints: There is sclerosis with an abnormal contour of the talus, there is also fragmentation of the talus. There is periosteal reaction at the distal diaphysis of the tibia and the lateral malleolus, findings are suspicious for osteomyelitis. There is disruption of the tibiotalar joint and the talocalcaneal joint, suggesting a Charcot joint. Degenerative changes at multiple levels in the foot. Small/moderate ankle joint effusion with thickening and enhancement of the joint lining, suspicious for septic arthritis. Soft tissues: Extensive subcutaneous inflammation/edema and mild soft tissue edema at the foot and ankle and visualized right lower leg, suspicious for cellulitis. No radiopaque foreign body. Vasculature: Extensive atherosclerotic changes in the visualized arteries. CT/CT foot RT wo con* [id number] IMPRESSION: 1. There is sclerosis with an abnormal contour of the talus, there is also fragmentation of the talus. There is periosteal reaction at the distal diaphysis of the tibia and the lateral malleolus, findings are suspicious for osteomyelitis. 2. Small/moderate ankle joint effusion with thickening and enhancement of the joint lining, suspicious for septic arthritis. 3. Findings suspicious for extensive cellulitis in the visualized right lower leg, ankle, and foot. 4. There is disruption of the tibiotalar joint and the talocalcaneal joint, suggesting a Charcot joint. 5. Incidental/nonacute findings are listed in the report.
[2021-12-28 16:52] LABS: Glucose Point of Care 101 mg/dL (70-110)
[2021-12-28] MEDS: cefTRIAXone 2,000 MG in sodium chloride 0.9% (plus) 100 ML 100 MG IV (21:49)
[2021-12-28 21:58] LABS: Glucose Point of Care 141 mg/dL (70-110)
[2021-12-28] MEDS: trazodone 100 mg Tablet PO (22:16)
[2021-12-29] VITALS (12 sets, daily range): BP systolic 126–173; BP diastolic 67–100; PULSE 63–72; RESP 16–18; TEMP 36.1–37.3; O2SAT 94–96
[2021-12-29 05:05] LABS: Basophils # 0.1 10^3/uL (0.0-0.1); Basophils % 1.1 %; Eosinophils # 0.5 10^3/uL (0.0-0.8); Hemoglobin 7.9 g/dL (11.5-15.3); Lymphocytes # 0.8 10^3/uL (0.8-4.8); Lymphocytes % 10.1 %; Mean Corpuscular HGB Conc 30.4 g/dL (30.0-36.0); Mean Corpuscular Hemoglobin 32.4 pg (28.0-34.0); Mean Corpuscular Volume 106.6 fl (81-99); Mean Platelet Volume 10.4 fL (7.4-10.4); Monocytes % 13.3 %; Neutrophils # 5.05 10^3/uL (1.8-7.7); Neutrophils % 67.6 %; Nucleated Red Blood Cells % 0 %; Platelet Count 209 10^3/cmm (130-400); Red Blood Count 2.44 10^6/uL (4.1-5.3); Red Cell Distribution Width 15.4 % (12.1-15.1); White Blood Count 7.5 10^3/uL (4.0-10.0)
[2021-12-29 05:29] LABS: Alanine Aminotransferase 14 U/L (0-33); Albumin Level 3.1 g/dL (3.5-5.2); Alkaline Phosphatase 199 IU/L (35-105); Anion Gap 16.6 (5-19); Aspartate Amino Transferase 16 U/L (0-32); Blood Urea Nitrogen 30 mg/dL (6-20); Carbon Dioxide 26 mmol/L (22-29); Chloride 97 mmol/L (98-107); Globulin 3.7 g/dL (1.3-4.6); Glomerular Filtration Rate 8.9 mL/min (90-130); Glucose 115 mg/dL (65-115); Magnesium 2.3 mg/dL (1.7-2.3); Osmolality Calculated 287 mOsm/kg (285-295); Phosphorus 3.7 mg/dL (2.5-4.5); Potassium 4.6 mmol/L (3.5-5.1); Sodium 135 mmol/L (136-145); Total Bilirubin 0.4 mg/dL (0.15-1.2); Total Protein 6.8 g/dL (6.6-8.7)
[2021-12-29] MEDS: heparin 5,000 unit/mL INJ 1 mL 5000 UNIT SUBCUT ×2 (06:02→17:33)
[2021-12-29 06:56] LABS: Glucose Point of Care 120 mg/dL (70-110)
--- NOTE | 2021-12-29 09:41 | PM.PN ---
Subjective Subjective: feels well. slept well. no n/v/f/c/kearney/d/leg pains. + edema Medications: Reviewed: Yes Medication Review Details: Current Medications Acetaminophen (Acetaminophen 325 Mg Tablet) 650 mg PO Q6H PRN PRN Reason: Mild/Mod Pain Or Temp >/= 101 Last Admin: 12/28/21 21:50 Dose: 650 mg Documented by: Hydrocodone Bitart/Acetaminophen (Hydrocodone-Acetaminophen 5-325 Mg Tablet) 1 tab PO Q4H PRN PRN Reason: MODERATE PAIN Last Admin: 12/27/21 17:19 Dose: 1 tab Documented by: Albuterol/Ipratropium (Ipratropium-Albuterol 3 Ml Neb) 3 ml INHALATION Q4H PRN PRN Reason: SHORTNESS OF BREATH Artificial Tears (Artificial Tears Op Soln 15 Ml Btl) 1 drop EYE-BOTH Q4H PRN PRN Reason: DRY EYE(S) Last Admin: 12/26/21 14:19 Dose: 1 drop Documented by: Aspirin (Aspirin 81 Mg Chew Tablet) 81 mg PO DAILY [facility] Last Admin: 12/28/21 08:40 Dose: 81 mg Documented by: Carvedilol (Carvedilol 25 Mg Tablet) 25 mg PO BID [facility] Last Admin: 12/28/21 18:24 Dose: 25 mg Documented by: Clopidogrel Bisulfate (Clopidogrel 75 Mg Tablet) 75 mg PO DAILY [facility] Last Admin: 12/28/21 08:41 Dose: 75 mg Documented by: Dextrose (Dextrose 50% Sdv 50 Ml) 25 ml IVP ONCE PRN; Protocol PRN Reason: hypoglycemia protocol Dextrose (Dextrose 50% Sdv 50 Ml) 50 ml IVP PRN PRN; Protocol PRN Reason: hypoglycemia protocol Furosemide (Furosemide 40 Mg Tablet) 120 mg PO 0800,1400 [facility] Last Admin: 12/28/21 14:21 Dose: 120 mg Documented by: Glucagon (Glucagon 1 Mg/Ml Inj 1 Ml) 1 mg IM ONCE PRN; Protocol PRN Reason: Adult Acute Hypoglycemia Prot. Heparin Sodium (Porcine) (Heparin 5,000 Unit/Ml Inj 1 Ml) 5,000 unit SUBCUT Q12H [facility] Last Admin: 12/29/21 06:02 Dose: 5,000 unit Documented by: Dextrose (D5w) 500 mls @ 100 mls/hr IV ONCE PRN; Protocol PRN Reason: Adult Acute Hypoglycemia Prot Ceftriaxone Sodium 2,000 mg/ (Sodium Chloride) 100 mls @ 100 mls/hr IV Q24H [facility]; Protocol Last Infusion: 12/28/21 23:23 Dose: Infused Documented by: Albumin Human (Albumin) 12.5 gm in 50 mls @ 60 mls/hr IV PRN PRN PRN Reason: Hypotension and/or symptomatic Insulin Human Lispro (Insulin Lispro 100 Unit/1 Ml) 0 unit SUBCUT WM&BEDTIME [facility]; Protocol Last Admin: 12/28/21 21:49 Dose: Not Given Documented by: Isosorbide Mononitrate (Isosorbide Mononitrate Er 60 Mg Tablet) 120 mg PO DAILY [facility] Last Admin: 12/28/21 08:40 Dose: 120 mg Documented by: Lanolin (Lanolin Oint 7 Gm) 1 applic TOPICAL PRN PRN PRN Reason: DRYNESS Levothyroxine Sodium (Levothyroxine 150 Mcg Tablet) 150 mcg PO DAILY [facility] Last Admin: 12/28/21 08:41 Dose: 150 mcg Documented by: Multivitamins (H-Vkzdmqc-Qbmiehw C Tablet) 1 each PO DAILY [facility] Last Admin: 12/28/21 08:41 Dose: 1 each Documented by: Nitroglycerin (Nitroglycerin 0.4 Mg Sublingual Tablet) 0.4 mg SUBLINGUAL Q5M PRN PRN Reason: Chest Pain Nystatin (Nystatin Cream 30 Gm) 1 applic TOPICAL BID [facility] Last Admin: 12/28/21 20:22 Dose: 1 cream Documented by: Ondansetron HCl (Ondansetron 2 Mg/Ml Sdv 2 Ml) 4 mg IVP Q8H PRN PRN Reason: vomiting, or N/V if npo Last Admin: 12/28/21 18:24 Dose: 4 mg Documented by: Pantoprazole Sodium (Pantoprazole Dr 40 Mg Tablet) 40 mg PO DAILY [facility] Last Admin: 12/28/21 08:41 Dose: 40 mg Documented by: Promethazine HCl/Dextromethorphan (Promethazine-Dm 6.25-15 Mg/5 Ml Syrup 118ml Btl) 5 ml PO Q6H PRN PRN Reason: cough Last Admin: 12/28/21 16:53 Dose: 5 ml Documented by: Sevelamer Carbonate (Sevelamer 800 Mg Tablet) 800 mg PO DAILY [facility] Last Admin: 12/28/21 08:40 Dose: 800 mg Documented by: Trazodone HCl (Trazodone 100 Mg Tablet) 100 mg PO BEDTIME PRN PRN Reason: INSOMNIA Last Admin: 12/28/21 22:16 Dose: 100 mg Documented by: Vitals/I&O/Wt Last Vital Signs Temp 98.2 F 12/29/21 04:00 Pulse 64 12/29/21 07:53 Resp 18 12/29/21 07:53 BP 150/70 12/29/21 04:00 Pulse Ox 94 12/29/21 07:53 12/28/21 12/29/21 12/29/21 22:59 06:59 14:59 Intake Total 480 / 1080 340 / 1420 Balance 480 / 1080 340 / 1420 Physical Exam Narrative: VSS, obese, in bed, comfortable heent- nc/at, eomi, anicteric neck -supple lungs crackles, dull bases heart reg, + memo abd soft, nt, nd, + bs ext LLE BKA RLE edema and redness improving neuro- a,a, o x 3 Data : 12/29/21 04:29 12/29/21 04:29 Micro: Microbiology 12/27/21 15:00 Blood Culture - Preliminary Blood NEGATIVE TO DATE 12/27/21 15:00 Blood Culture - Preliminary Blood NEGATIVE TO DATE 12/25/21 06:00 Blood Culture - Preliminary Blood Streptococcus Group C 12/27/21 04:55 Blood Culture - Preliminary Blood NEGATIVE TO DATE 12/27/21 04:47 Blood Culture - Preliminary Blood NEGATIVE TO DATE A&P Assessment and plan (1) Chronic kidney disease with end stage renal failure on dialysis: 61 yr old female 1. ESRD - challenge fluid removal on HD HD now- 3 hrs, 3k, remove 3l as lena -pt refuses more than 3 hrs of HD, and refuses large volume removals -pth low for ESRD no vit d analouges 2. strep group c bacteremia - ceftriaxone -repeat blood cultures NGTD 3. ischemic CM- EF 25% 4. anemia- no iv iron w/ bacteremia. ferritin 1253 -use kendall 5. tsh -low 0.9 6. mild hyponatremia -monitor w/ HD 7. cxr- w/ improving pleural effusions pt seen and examine dw/ RN- telehealth visit time spent 25 minutes Status: Acute Plan see nicole Attestations Medical Necessity Statement*: per medicine Time Spent in Patient Care: 16 - 35 minutes (>than 50% of time spent in counselling and/or direct pt care on unit). 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
[2021-12-29] MEDS: heparin, porcine 1,000 unit/mL INJ 10 mL HE (11:10)
[2021-12-29] MEDS: FUROsemide 40 mg Tablet 120 MG PO ×2 (12:50→17:33)
[2021-12-29] MEDS: pantoprazole DR 40 mg Tablet PO (12:50)
[2021-12-29] MEDS: aspirin 81 mg Chew Tablet PO (12:50)
[2021-12-29] MEDS: isosorbide mononitrate ER 60 mg Tablet 120 MG PO (12:50)
[2021-12-29] MEDS: carvedilol 25 mg Tablet PO ×2 (12:50→17:33)
[2021-12-29] MEDS: b-complex-vitamin c Tablet 1 EACH PO (12:51)
[2021-12-29] MEDS: clopidogrel 75 mg Tablet PO (12:51)
[2021-12-29] MEDS: sevelamer 800 mg Tablet PO (12:51)
[2021-12-29] MEDS: levothyroxine 150 mcg Tablet PO (12:51)
[2021-12-29] MEDS: epoetin alfa 1000 Unit/0.05 mL (ESRD) 8000 UNIT SUBCUT (15:41)
--- NOTE | 2021-12-29 16:17 | PM.CONSULT ---
Providers/Reason For Consult Consulting Physician/Specialty*: Curtis Santana D.P.M. podiatry Reason for Consult*: Right foot wound. CT scan concerning for osteomyelitis of the right ankle. Attending Physician: Ron Ca MD Primary Care Provider: Karen Bear MD History of Present Illness History of Present Illness Alesia Shaw is a 61 year old female admitted for right leg cellulitis. Patient has extensive comorbidities including end-stage renal failure currently on dialysis, hypertension, diabetes type 2 with peripheral polyneuropathy, Charcot arthropathy, hypothyroid, MSSA AV endocarditis, history of osteomyelitis and Charcot of the left lower extremity status post below-knee amputation performed December 2020. Patient has history of extensive lymphedema. Recently had increased edema and insidious onset of cellulitis to the right lower extremity this has been responding to antibiotic therapy while inpatient. In regard to right lower extremity imaging during this hospitalization patient received an x-ray and CT to the right lower extremity. X-rays taken to [address] scan 12/28/2021. CT scan read was concerning for possible osteomyelitis of the talus, tibia and fibula. CT scan has a lower specificity and is unable to accurately differentiate osteomyelitis versus Charcot arthropathy. She has obvious Charcot, any concern for osteomyelitis cannot be entirely ruled out however correlating her lower extremity clinically have a lower suspicion for acute osteomyelitis. On review she has x-rays taken August 31, 2020 one of the right foot comparing those images to most recent right foot x-rays 12/25/2021 during this hospitalization I actually appreciate improvement to the overall bone density the collapse of the talus and dislocation remains unchanged, Monckeberg sclerosis also unchanged, cortical irregularity appreciated on August 31, 2021 is actually improving at the calcaneus, midfoot and distal tibia on the most recent x-ray. I believe that the CT findings are likely secondary to Charcot. Her wound at the right plantar foot is clinically very stable, no deep structures exposed is largely granular without purulent drainage or periwound erythema. I contacted our radiology department to look at our capacity to perform a FDG PET scan this would be the imaging of choice to differentiate osteomyelitis versus Charcot if this is a study that could be performed here at our facility this will be arranged, an FDG PET scan would likely not require any renal dosing or adjustment to protocol. The wound was dressed with a silver alginate and Optifoam will continue this daily. I advised her to keep her foot elevated level or above her hip for additional edema control. She is to be nonweightbearing to the right lower extremity at this time. She has a Charcot restraint orthotic walker but due to excessive edema at this time cannot be fitted. Once edema is under control she will utilize the Charcot restraint orthotic walker to her right lower extremity when transferring. Overall patient is sedentary, she utilizes a wheelchair. She reports that the only time she puts weight on her right lower extremity is when she has to transfer, I believe that a Charcot restraint orthotic walker would be adequate in stabilizing her right lower extremity at this time for transfers only. Podiatry will follow. Will follow up on imaging capabilities as above. Review of Systems General: Reports: 10 or more systems reviewed and unremarkable except in HPI and below Const: Denies: fever(s) or chills Card: Denies: chest pain or palpitations Resp: Denies: productive cough GI: Denies: abdominal pain, nausea or vomiting : Denies: flank pain Musc: Reports: extremity swelling, joint pain, joint stiffness, limited range of motion and deformity Skin/Breast: Reports: erythema, sores, nail changes and change in hair Neuro: Reports: numbness in extremities, sensory changes and difficulty walking Psych: Denies: suicidal ideation Jimmy/Lymph: Denies: easy bruising Medications/Allergies Home Medications Medication Instructions Recorded Confirmed Last Taken Type Stump Supervisor Residential #1 ea 01/12/21 12/25/21 07/20/21 Rx carvedilol 25 mg tablet (Coreg) 25 mg PO BID 05/19/21 12/25/21 11/23/21 History albuterol sulfate 90 mcg/actuation 2 puff INHALATION Q4H PRN 06/13/21 12/25/21 07/20/21 History aerosol inhaler (ProAir HFA) vit B,C-folic ac 800 mcg-zinc 12.5 1 tab PO DAILY 06/13/21 12/25/21 11/23/21 History mg-selen-D3 2,000 unit-vit E tablet (RenaPlex-D) aspirin 81 mg chewable tablet 81 mg PO DAILY 90 Days #90 tab 06/22/21 12/25/21 11/22/21 Rx (Children's Aspirin) clopidogrel 75 mg tablet 75 mg PO DAILY 90 Days #90 tab 06/22/21 12/25/21 11/23/21 Rx nitroglycerin 0.4 mg sublingual 0.4 mg SUBLINGUAL Q5M PRN 30 Days 06/22/21 12/25/21 07/20/21 Rx tablet #30 tab nystatin 100,000 unit/gram topical 1 applic TOPICAL BID #30 g 06/29/21 12/25/21 07/20/21 Rx cream furosemide 80 mg tablet 120 mg PO 0800,1400 #270 tab 09/14/21 12/25/21 11/23/21 Rx levothyroxine 150 mcg tablet 150 mcg PO DAILY #30 tab 10/14/21 12/25/21 11/23/21 Rx (Synthroid) isosorbide mononitrate 120 mg 120 mg PO DAILY #30 tab 11/09/21 12/25/21 11/23/21 Rx tablet,extended release 24 hr doxazosin 2 mg tablet (Cardura) 8 mg PO BID tab 11/16/21 12/25/21 11/23/21 History hydralazine 50 mg tablet 50 mg PO TID #90 tab 11/16/21 12/25/21 11/23/21 Rx psyllium husk 0.4 gram capsule 0.4 g PO DAILY 11/23/21 12/25/21 11/23/21 History (Metamucil) ondansetron HCl 4 mg tablet 8 mg PO Q8H PRN #10 tab 11/28/21 12/25/21 Unknown Rx promethazine-DM 6.25 mg-15 mg/5 mL 5 ml PO Q6H PRN #160 ml 12/10/21 12/25/21 Unknown Rx oral syrup calcium carbonate 470 mg calcium 3,531 mg PO . TID AND WITH MEALS 12/25/21 12/25/21 Unknown History (1,177 mg) chewable tablet (Tums Ultra) sevelamer carbonate 800 mg tablet 800 mg PO DAILY 12/25/21 12/25/21 Unknown History (Renvela) Allergies Allergy/AdvReac Type Severity Reaction Status Date / Time Iodinated Contrast Media Allergy ALGY-Hives Verified 12/02/21 15:19 Current Medications Generic Name Dose Route Start Last Admin Trade Name Freq PRN Reason Stop Dose Admin Acetaminophen 650 mg 12/25/21 10:33 12/28/21 21:50 Acetaminophen 325 Mg Tablet PO 650 mg Q6H PRN Administration Mild/Mod Pain Or Temp >/= 101 Hydrocodone Bitart/Acetaminophen 1 tab 12/26/21 17:59 12/27/21 17:19 Hydrocodone-Acetaminophen 5-325 Mg Tablet PO 1 tab Q4H PRN Administration MODERATE PAIN Artificial Tears 1 drop 12/26/21 13:51 12/26/21 14:19 Artificial Tears Op Soln 15 Ml Btl EYE-BOTH 1 drop Q4H PRN Administration DRY EYE(S) Aspirin 81 mg 12/26/21 09:00 12/29/21 12:50 Aspirin 81 Mg Chew Tablet PO 81 mg DAILY [facility] Administration Carvedilol 25 mg 12/25/21 18:00 12/29/21 12:50 Carvedilol 25 Mg Tablet PO 25 mg BID [facility] Administration Clopidogrel Bisulfate 75 mg 12/26/21 09:00 12/29/21 12:51 Clopidogrel 75 Mg Tablet PO 75 mg DAILY [facility] Administration Epoetin Stephan 8,000 unit 12/29/21 14:00 12/29/21 15:41 Epoetin Stephan 1000 Unit/0.05 Ml (Esrd) SUBCUT 8,000 unit QMWF [facility] Administration Furosemide 120 mg 12/26/21 08:00 12/29/21 12:50 Furosemide 40 Mg Tablet PO 120 mg 0800,1400 [facility] Administration Heparin Sodium (Porcine) 5,000 unit 12/25/21 18:15 12/29/21 06:02 Heparin 5,000 Unit/Ml Inj 1 Ml SUBCUT 5,000 unit Q12H [facility] Administration Ceftriaxone Sodium 2,000 mg/ 100 mls @ 100 mls/hr 12/26/21 18:00 12/28/21 23:23 Sodium Chloride IV Infused Q24H [facility] Infusion Protocol Insulin Human Lispro 0 unit 12/25/21 18:00 12/29/21 12:51 Insulin Lispro 100 Unit/1 Ml SUBCUT Not Given WM&BEDTIME [facility] Protocol Isosorbide Mononitrate 120 mg 12/26/21 09:00 12/29/21 12:50 Isosorbide Mononitrate Er 60 Mg Tablet PO 120 mg DAILY [facility] Administration Levothyroxine Sodium 150 mcg 12/26/21 09:00 12/29/21 12:51 Levothyroxine 150 Mcg Tablet PO 150 mcg DAILY [facility] Administration Multivitamins 1 each 12/27/21 09:00 12/29/21 12:51 V-Spuymzv-Yclfttg C Tablet PO 1 each DAILY [facility] Administration Nystatin 1 applic 12/25/21 18:00 12/29/21 12:55 Nystatin Cream 30 Gm TOPICAL Not Given BID [facility] Ondansetron HCl 4 mg 12/25/21 10:33 12/28/21 18:24 Ondansetron 2 Mg/Ml Sdv 2 Ml IVP 4 mg Q8H PRN Administration vomiting, or N/V if npo Pantoprazole Sodium 40 mg 12/26/21 09:00 12/29/21 12:[address] 40 Mg Tablet PO 40 mg DAILY [facility] Administration Promethazine HCl/Dextromethorphan 5 ml 12/28/21 15:11 12/28/21 16:53 Promethazine-Dm 6.25-15 Mg/5 Ml Syrup 118ml Btl PO 5 ml Q6H PRN Administration cough Sevelamer Carbonate 800 mg 12/26/21 09:00 12/29/21 12:51 Sevelamer 800 Mg Tablet PO 800 mg DAILY [facility] Administration Trazodone HCl 100 mg 12/28/21 21:57 12/28/21 22:16 Trazodone 100 Mg Tablet PO 100 mg BEDTIME PRN Administration INSOMNIA PFSH Acute PFSH: Medical History Acute bronchitis Anemia Aortic valve endocarditis Bacteremia due to Staphylococcus EKG done this morning revealed normal sinus rhythm with a left axis deviation. Voltage area for LVH. No significant ST-T changes. 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 Neuropathy Protein-energy malnutrition Septic arthritis of left ankle Surgical History Central vascular catheter in place upon arrival History of cholecystectomy History of colonoscopy with polypectomy 2017 History of left below knee amputation History of lumbar surgery Due to epidural abscess in March 2018 Peritoneal dialysis catheter in place removal 05/20/21 S/P hemodialysis catheter insertion Status post below-knee amputation of left lower extremity Family History Mother Cancer Uterine and breast cancer Father Diabetes Other CAD (coronary artery disease) Social History Alcohol intake: current Alcohol intake frequency: holidays/special occasions only Female Reproductive History: Date of last menstrual period: 05/28/14 Vitals/I&O/Wt Last Vital Signs Temp 97.9 F 12/29/21 12:00 Pulse 68 12/29/21 12:00 Resp 16 12/29/21 12:00 BP 140/68 12/29/21 12:00 Pulse Ox 95 12/29/21 12:00 12/29/21 12/29/21 12/29/21 06:59 14:59 22:59 Intake Total 340 / 1420 480 / 480 Balance 340 / 1420 480 / 480 Physical Exam Narrative: VASCULAR: Dorsalis pedis and posterior tibial arteries faintly palpable likely secondary to edema, right Capillary refill time less than 3 seconds to the right distal hallux. Diminished hair growth at bilateral legs and feet.? Grade 4 pitting edema to the right lower extremity. NEUROLOGICAL: Protective sensation intact 0/10 sites, tested with Pocahontas Josefina monofilament to right foot. DERMATOLOGICAL: Healthy and clinically stable appearing wound to the plantar aspect of the right midfoot. Wound has largely granular base, 90% granular and 10% macerated and fibrotic tissue. Has macerated margin, wound measurements 2.4 cm in length by 4.2 cm in width by 0.2 cm in depth. There is serosanguineous drainage, no purulence, wound does not probe to bone, tunnel or undermined, no deep structures exposed, not able to visualize tendon or fascia. No periwound erythema. No malodor to the right foot. No proximal lymphangitic streaking from the wound. Resolving cellulitis anteriorly to the right leg with skin tension lines present due to decreased edema. Mild chronic skin pigmentation changes due to longstanding peripheral vascular disease. MUSCULOSKELETAL: Status post below-knee amputation to the left. Hypomobility also at the right foot and ankle.? Data : 12/29/21 04:29 12/29/21 04:29 Micro: Microbiology 12/27/21 15:00 Blood Culture - Preliminary Blood NEGATIVE TO DATE 12/27/21 15:00 Blood Culture - Preliminary Blood NEGATIVE TO DATE 12/25/21 06:00 Blood Culture - Preliminary Blood Streptococcus Group C A&P Assessment and plan (1) Chronic kidney disease with end stage renal failure on dialysis: Status: Acute (2) Peripheral arterial disease: Status: Acute (3) Lymphedema: Status: Acute (4) Cellulitis: Status: Acute (5) Charcot's joint, right ankle and foot: Status: Acute (6) Non-pressure chronic ulcer of other part of right foot with fat layer exposed: Status: Acute Plan 61-year-old female admitted for right leg cellulitis improving while inpatient receiving antibiotic therapy. Ultimately moving forward will require aggressive decongestive therapy to help reduce lower extremity edema. She receives dialysis 3 times weekly, is on a diuretic, will need to incorporate mechanical compression and lifestyle changes of elevating her feet at all times when resting and avoid long peers of time in a gravity dependent position to the right leg. Does poorly with lymphedema wraps due to her body habitus and skin fold at the right distal leg, this cuts into her leg causing sores. My recommendation was to utilize lymphedema wraps such as Juzo or juxta lite that are in 2 pieces, 1 for the leg and one for the foot. Contacted [facility] this afternoon, they will be fitting her for right lower extremity lymphedema wrap both foot and leg tomorrow 12/30/2021. Coding Level of Care Code Acute Certified Dental Assistant for Gregorio Fwd Diagnoses Chronic kidney disease with end stage renal failure on dialysis N18.6; Z99.2 Peripheral arterial disease I73.9 Lymphedema I89.0 Cellulitis L03.90 Charcot's joint, right ankle and foot M14.671 Non-pressure chronic ulcer of other part of right foot with fat layer exposed L97.512
--- NOTE | 2021-12-29 16:19 | PM.PN ---
Subjective Subjective: Patient was seen and examined this morning, underwent dialysis today, no acute events overnight. Medications: Reviewed: Yes Medication Review Details: Generic Name Dose Route Start Last Admin Trade Name Freq PRN Reason Stop Dose Admin Acetaminophen 650 mg 12/25/21 10:33 12/27/21 13:24 Acetaminophen 32 5 Mg Tablet PO 650 mg Q6H PRN Administration Mild/Mod Pain Or Temp >/= 101 Hydrocodone Bitart /Acetaminophen 1 tab 12/26/21 17:59 12/27/21 17:19 Hydrocodone-Acet aminophen 5-325 Mg Tablet PO 1 tab Q4H PRN Administration MODERATE PAIN Artificial Tears 1 drop 12/26/21 13:51 12/26/21 14:19 Artificial Tears Op Soln 15 Ml Btl EYE-BOTH 1 drop Q4H PRN Administration DRY EYE(S) Aspirin 81 mg 12/26/21 09:00 12/27/21 08:18 Aspirin 81 Mg Ch ew Tablet PO 81 mg DAILY [facility] Administration Carvedilol 25 mg 12/25/21 18:00 12/27/21 17:17 Carvedilol 25 Mg Tablet PO 25 mg BID [facility] Administration Clopidogrel Bisulf ate 75 mg 12/26/21 09:00 12/27/21 08:18 Clopidogrel 75 M g Tablet PO 75 mg DAILY [facility] Administration Furosemide 120 mg 12/26/21 08:00 12/27/21 13:27 Furosemide 40 Mg Tablet PO Not Given 0800,1400 [facility] Heparin Sodium (Po rcine) 5,000 unit 12/25/21 18:15 12/27/21 17:17 Heparin 5,000 Un it/Ml Inj 1 Ml SUBCUT 5,000 unit Q12H [facility] Administration Ceftriaxone Sodium 2,000 mg/ 100 mls @ 100 mls /hr 12/26/21 18:00 12/27/21 17:17 Sodium Chloride IV 100 mls/hr Q24H [facility] Administration Protocol Insulin Human Lisp ro 0 unit 12/25/21 18:00 12/27/21 17:20 Insulin Lispro 1 00 Unit/1 Ml SUBCUT Not Given WM&BEDTIME [facility] Protocol Isosorbide Mononit rate 120 mg 12/26/21 09:00 12/27/21 08:18 Isosorbide [place] itrate Er 60 Mg Ta blet PO 120 mg DAILY [facility] Administration Levothyroxine Sodi um 150 mcg 12/26/21 09:00 12/27/21 08:18 Levothyroxine 15 0 Mcg Tablet PO 150 mcg DAILY [facility] Administration Multivitamins 1 each 12/27/21 09:00 12/27/21 09:29 C-Xagkkka-Httlau n C Tablet PO 1 each DAILY [facility] Administration Nystatin 1 applic 12/25/21 18:00 12/27/21 17:20 Nystatin Cream 3 0 Gm TOPICAL 1 cream BID [facility] Administration Ondansetron HCl 4 mg 12/25/21 10:33 12/25/21 21:46 Ondansetron 2 Mg /Ml Sdv 2 Ml IVP 4 mg Q8H PRN Administration vomiting, or N/V if npo Pantoprazole Sodiu m 40 mg 12/26/21 09:00 12/27/21 08:[address] 40 Mg Tablet PO 40 mg DAILY [facility] Administration Sevelamer Carbonat e 800 mg 12/26/21 09:00 12/27/21 08:18 Sevelamer 800 Mg Tablet PO 800 mg DAILY [facility] Administration Vitals/I&O/Wt Last Vital Signs Temp 97.9 F 12/29/21 12:00 Pulse 68 12/29/21 12:00 Resp 16 12/29/21 12:00 BP 140/68 12/29/21 12:00 Pulse Ox 95 12/29/21 12:00 12/29/21 12/29/21 12/29/21 06:59 14:59 22:59 Intake Total 340 / 1420 480 / 480 Balance 340 / 1420 480 / 480 Physical Exam Const: COMMON NORMALS: patient oriented x3 HENMT: COMMON NORMALS: normocephalic, atraumatic, hearing grossly normal bilaterally and external ears normal HEAD & SCALP: normocephalic and atraumatic EXTERNAL EAR: Yes external ears normal Eye: COMMON NORMALS: no scleral icterus GENERAL EYE: appearance normal, both eyes and all related structures Chest: COMMONS NORMALS: normal inspection of the chest and normal palpation of entire chest wall CHEST: Yes Symmetrical chest wall rise Resp: COMMON NORMALS: normal respiratory effort, No retractions, No use of accessory muscles and clear to auscultation bilaterally EFFORT & INSPECTION: Yes symmetric chest movement AUSCULTATION: clear to auscultation bilaterally Cardio: COMMON NORMALS: regular rate, regular rhythm, S1 normal heart sound present, S2 normal heart sound present, No gallops present (Cardio), No murmurs present (Cardio), No rub (Cardio) and Peripheral pulses 2+ throughout RATE: regular rate RHYTHM: regular rhythm HEART SOUNDS: S1 normal heart sound present and S2 normal heart sound present PERIPHERAL PULSES: Peripheral pulses 2+ throughout GI: COMMON NORMALS: Normal to inspection, nondistended, normoactive bowel sounds present, Soft to palpation, non-tender, No hepatosplenomegaly present and no masses AUSCULTATION: Yes normoactive bowel sounds PALPATION: Yes Soft to palpation and Yes No hepatosplenomegaly present RECTAL EXAM: deferred Extremity: COMMON NORMALS: no clubbing, cyanosis or edema and no pedal edema NARRATIVE EXTREMITY EXAM: RT FOOT Chronic Ulcer, RT lower extremity redness. Neuro: COMMON NORMALS: patient oriented x3 Data : 12/29/21 04:29 12/29/21 04:29 Micro: Microbiology 12/27/21 15:00 Blood Culture - Preliminary Blood NEGATIVE TO DATE 12/27/21 15:00 Blood Culture - Preliminary Blood NEGATIVE TO DATE 12/25/21 06:00 Blood Culture - Preliminary Blood Streptococcus Group C A&P Assessment and plan (1) Sepsis: Status: Acute Plan Sepsis: Likely secondary to right lower extremity cellulitis r/o right foot osteomyelitis: Blood cx positive for streptococcus group C. Follow repeat blood culture: NTD Was initially on zosyn/vanc---> currently on ceftriaxone 2g iv q24h. #Right foot plantar Wound : C.T Scan of rt foot without contrast:There is sclerosis with an abnormal contour of the talus, there is also fragmentation of the talus. There is periosteal reaction at the distal diaphysis of the tibia and the lateral malleolus, findings are suspicious for osteomyelitis. Small/moderate ankle joint effusion with thickening and enhancement of the joint lining, suspicious for septic arthritis. Follow ESR , CRP. Will involve podiatry in patient care, will consult orthopedic in am. #persistent right pleural effusion, s/p recent thoracentesis Nov 2021, decortication deferred due to multiple comorbidities, recent pleural cx all negative, completed extended course of broad spectrum abx. CXR today shows serial improvement. Less likely that persisting empyema is the source, however if strep spp turns out to be strep pneumo or if fails to improve with improvement in cellulitis, remains persistently bacteremia, will likely need CT imaging of the chest for interval follow up for empyema. Nephrology consult to resume HD on schedule EF 25%, ischemic cardiomyopathy, continue home meds Attestations Medical Necessity Statement*: Patient is to be in hospital for management of sepsis. Coding Level of Care Code Acute Specimen Boss for [facility] Jay Diagnoses Sepsis A41.9
[2021-12-29] MEDS: nystatin cream 30 gm 1 APPLIC TOPICAL (17:34)
[2021-12-29] MEDS: cefTRIAXone 2,000 MG in sodium chloride 0.9% (plus) 100 ML 100 MG IV (21:18)
[2021-12-29 21:43] LABS: Glucose Point of Care 137 mg/dL (70-110)
[2021-12-30] VITALS: BP 124/51; PULSE 68; RESP 16; O2SAT 91
[2021-12-30 04:00] VITALS: BP 120/48; PULSE 62; RESP 17; TEMP 36.8; O2SAT 90
[2021-12-30 05:39] LABS: Hematocrit 26.4 % (37.0-47.0); Hemoglobin 8.1 g/dL (11.5-15.3); Mean Corpuscular HGB Conc 30.7 g/dL (30.0-36.0); Mean Corpuscular Hemoglobin 32.8 pg (28.0-34.0); Mean Corpuscular Volume 106.9 fl (81-99); Platelet Count 181 10^3/cmm (130-400); Red Blood Count 2.47 10^6/uL (4.1-5.3); Red Cell Distribution Width 15.6 % (12.1-15.1); White Blood Count 7.7 10^3/uL (4.0-10.0)
[2021-12-30 05:42] LABS: Alanine Aminotransferase 13 U/L (0-33); Alkaline Phosphatase 196 IU/L (35-105); Blood Urea Nitrogen 21 mg/dL (6-20); C Reactive Protein 18.3 mg/L (0.0-4.9); Calcium 8.5 mg/dL (8.5-10.5); Carbon Dioxide 24 mmol/L (22-29); Chloride 99 mmol/L (98-107); Globulin 3.7 g/dL (1.3-4.6); Glomerular Filtration Rate 10.5 mL/min (90-130); Glucose 135 mg/dL (65-115); Magnesium 2.3 mg/dL (1.7-2.3); Osmolality Calculated 285 mOsm/kg (285-295); Phosphorus 3.3 mg/dL (2.5-4.5); Sodium 135 mmol/L (136-145); Total Bilirubin 0.4 mg/dL (0.15-1.2); Total Protein 6.7 g/dL (6.6-8.7)
[2021-12-30] MEDS: heparin 5,000 unit/mL INJ 1 mL 5000 UNIT SUBCUT (05:46)
[2021-12-30 05:50] LABS: Anion Gap 16.7 (5-19); Aspartate Amino Transferase 20 U/L (0-32); Potassium 4.7 mmol/L (3.5-5.1)
[2021-12-30 06:00] VITALS: PULSE 70
[2021-12-30 06:08] LABS: Slide Review Slide Review Perform
[2021-12-30 06:09] LABS: Total Cells Counted 100 (0-100)
[2021-12-30 06:11] LABS: Absolute Eosinophils 0.4 10^3/cmm (0.0-0.7); Absolute Neutrophil 5.2 10^3/cmm (1.4-6.5); Absolute Segmented Neutrophil 4.6 10/cmm (1.6-7.1); Band Neutrophils Absolute 0.5 10^3/cmm (0.0-1.2); Eosinophils 6 %; Lymphocytes 14 %; Lymphocytes Absolute 1.1 10^3/cmm (1.2-3.4); Monocytes Absolute 0.7 10^3/cmm (0.1-0.6); Platelet Estimate Normal (Normal); Segmented Neutrophils 60 %
[2021-12-30 06:12] LABS: Macrocytosis 2+; Polychromasia Trace
[2021-12-30 06:49] LABS: Glucose Point of Care 135 mg/dL (70-110)
--- NOTE | 2021-12-30 07:27 | PM.PN ---
Subjective Subjective: feels well. slept well. still w/ leg edema. no n/v/f/c/kearney/d/sob. Medications: Reviewed: Yes Medication Review Details: Current Medications Acetaminophen (Acetaminophen 325 Mg Tablet) 650 mg PO Q6H PRN PRN Reason: Mild/Mod Pain Or Temp >/= 101 Last Admin: 12/28/21 21:50 Dose: 650 mg Documented by: Hydrocodone Bitart/Acetaminophen (Hydrocodone-Acetaminophen 5-325 Mg Tablet) 1 tab PO Q4H PRN PRN Reason: MODERATE PAIN Last Admin: 12/27/21 17:19 Dose: 1 tab Documented by: Albuterol/Ipratropium (Ipratropium-Albuterol 3 Ml Neb) 3 ml INHALATION Q4H PRN PRN Reason: SHORTNESS OF BREATH Artificial Tears (Artificial Tears Op Soln 15 Ml Btl) 1 drop EYE-BOTH Q4H PRN PRN Reason: DRY EYE(S) Last Admin: 12/26/21 14:19 Dose: 1 drop Documented by: Aspirin (Aspirin 81 Mg Chew Tablet) 81 mg PO DAILY [facility] Last Admin: 12/29/21 12:50 Dose: 81 mg Documented by: Carvedilol (Carvedilol 25 Mg Tablet) 25 mg PO BID [facility] Last Admin: 12/29/21 17:33 Dose: 25 mg Documented by: Clopidogrel Bisulfate (Clopidogrel 75 Mg Tablet) 75 mg PO DAILY [facility] Last Admin: 12/29/21 12:51 Dose: 75 mg Documented by: Dextrose (Dextrose 50% Sdv 50 Ml) 25 ml IVP ONCE PRN; Protocol PRN Reason: hypoglycemia protocol Dextrose (Dextrose 50% Sdv 50 Ml) 50 ml IVP PRN PRN; Protocol PRN Reason: hypoglycemia protocol Epoetin Stephan (Epoetin Stephan 1000 Unit/0.05 Ml (Esrd)) 8,000 unit SUBCUT QMWF [facility] Last Admin: 12/29/21 15:41 Dose: 8,000 unit Documented by: Furosemide (Furosemide 40 Mg Tablet) 120 mg PO 0800,1400 [facility] Last Admin: 12/29/21 17:33 Dose: 120 mg Documented by: Glucagon (Glucagon 1 Mg/Ml Inj 1 Ml) 1 mg IM ONCE PRN; Protocol PRN Reason: Adult Acute Hypoglycemia Prot. Heparin Sodium (Porcine) (Heparin 5,000 Unit/Ml Inj 1 Ml) 5,000 unit SUBCUT Q12H [facility] Last Admin: 12/30/21 05:46 Dose: 5,000 unit Documented by: Dextrose (D5w) 500 mls @ 100 mls/hr IV ONCE PRN; Protocol PRN Reason: Adult Acute Hypoglycemia Prot Ceftriaxone Sodium 2,000 mg/ (Sodium Chloride) 100 mls @ 100 mls/hr IV Q24H [facility]; Protocol Last Infusion: 12/29/21 22:29 Dose: Infused Documented by: Albumin Human (Albumin) 12.5 gm in 50 mls @ 60 mls/hr IV PRN PRN PRN Reason: Hypotension and/or symptomatic Insulin Human Lispro (Insulin Lispro 100 Unit/1 Ml) 0 unit SUBCUT WM&BEDTIME [facility]; Protocol Last Admin: 12/29/21 21:03 Dose: Not Given Documented by: Isosorbide Mononitrate (Isosorbide Mononitrate Er 60 Mg Tablet) 120 mg PO DAILY [facility] Last Admin: 12/29/21 12:50 Dose: 120 mg Documented by: Lanolin (Lanolin Oint 7 Gm) 1 applic TOPICAL PRN PRN PRN Reason: DRYNESS Levothyroxine Sodium (Levothyroxine 150 Mcg Tablet) 150 mcg PO DAILY [facility] Last Admin: 12/29/21 12:51 Dose: 150 mcg Documented by: Multivitamins (R-Juogmzu-Tsvftrp C Tablet) 1 each PO DAILY [facility] Last Admin: 12/29/21 12:51 Dose: 1 each Documented by: Nitroglycerin (Nitroglycerin 0.4 Mg Sublingual Tablet) 0.4 mg SUBLINGUAL Q5M PRN PRN Reason: Chest Pain Nystatin (Nystatin Cream 30 Gm) 1 applic TOPICAL BID [facility] Last Admin: 12/29/21 17:34 Dose: 1 cream Documented by: Ondansetron HCl (Ondansetron 2 Mg/Ml Sdv 2 Ml) 4 mg IVP Q8H PRN PRN Reason: vomiting, or N/V if npo Last Admin: 12/28/21 18:24 Dose: 4 mg Documented by: Pantoprazole Sodium (Pantoprazole Dr 40 Mg Tablet) 40 mg PO DAILY [facility] Last Admin: 12/29/21 12:50 Dose: 40 mg Documented by: Promethazine HCl/Dextromethorphan (Promethazine-Dm 6.25-15 Mg/5 Ml Syrup 118ml Btl) 5 ml PO Q6H PRN PRN Reason: cough Last Admin: 12/28/21 16:53 Dose: 5 ml Documented by: Sevelamer Carbonate (Sevelamer 800 Mg Tablet) 800 mg PO DAILY [facility] Last Admin: 12/29/21 12:51 Dose: 800 mg Documented by: Trazodone HCl (Trazodone 100 Mg Tablet) 100 mg PO BEDTIME PRN PRN Reason: INSOMNIA Last Admin: 12/28/21 22:16 Dose: 100 mg Documented by: Vitals/I&O/Wt Last Vital Signs Temp 98.2 F 12/30/21 04:00 Pulse 70 12/30/21 06:00 Resp 17 12/30/21 04:00 BP 120/48 12/30/21 04:00 Pulse Ox 90 12/30/21 04:00 12/29/21 12/30/21 12/30/21 22:59 06:59 14:59 Intake Total 1000 / 1480 Output Total 3300 / 3300 200 / 3500 Balance -2300 / -1820 -200 / -2020 Weight last 48 hrs Weight 106.2 kg Physical Exam Narrative: VSS, obese, in bed, comfortable heent- nc/at, eomi, anicteric neck -supple lungs crackles, dull bases heart reg, + memo abd soft, nt, nd, + bs ext LLE BKA + edema RLE edema and redness neuro- a,a, o x 3 Data : 12/30/21 04:35 12/30/21 04:35 Micro: Microbiology 12/25/21 05:50 Blood Culture - Final Blood NO GROWTH AFTER 5 DAYS A&P Assessment and plan (1) Chronic kidney disease with end stage renal failure on dialysis: 61 yr old female 1. ESRD -pt refuses more than 3 hrs of HD or significant fluid removal on HD -repeat HD in AM- 3 hrs, 3k, remove 2l as lena -pth low for ESRD no vit d analouges 2. strep group c bacteremia - ceftriaxone -repeat blood cultures NGTD 3. ischemic CM- EF 25% 4. anemia- no iv iron w/ bacteremia. ferritin 1253 -use kendall 5. tsh -low 0.9 6. mild hyponatremia -monitor w/ HD 7. cxr- w/ improving pleural effusions pt seen and examine dw/ RN- telehealth visit time spent 25 minutes Status: Acute Plan see aboe Attestations Medical Necessity Statement*: per medicine Time Spent in Patient Care: 16 - 35 minutes (>than 50% of time spent in counselling and/or direct pt care on unit). Coding Level of Care Code Acute Optometry Assistant for Chg Fwd Diagnoses Chronic kidney disease with end stage renal failure on dialysis N18.6; Z99.2
[2021-12-30 08:00] VITALS: BP 166/97; PULSE 107; RESP 18; TEMP 36.7; O2SAT 96
--- NOTE | 2021-12-30 08:00 | P.PN_ITS ---
Subjective Subjective: Alesia Shaw is a 61 year old female admitted for right leg cellulitis.? Patient has extensive comorbidities including end-stage renal failure currently on dialysis, hypertension, diabetes type 2 with peripheral polyneuropathy, Charcot arthropathy, hypothyroid, MSSA AV endocarditis, history of osteomyelitis and Charcot of the left lower extremity status post below-knee amputation performed December 2020.? Patient has history of extensive lymphedema.? Recently had increased edema and insidious onset of cellulitis to the right lower extremity this has been responding to antibiotic therapy while inpatient. Vitals/I&O/Wt Last Vital Signs Temp 98.2 F 12/30/21 04:00 Pulse 70 12/30/21 06:00 Resp 17 12/30/21 04:00 BP 120/48 12/30/21 04:00 Pulse Ox 90 12/30/21 04:00 12/29/21 12/30/21 12/30/21 22:59 06:59 14:59 Intake Total 1000 / 1480 Output Total 3300 / 3300 200 / 3500 Balance -2300 / -1820 -200 / -2020 Weight last 48 hrs Weight 234 lb 2.095 oz Physical Exam Narrative: VASCULAR: Dorsalis pedis and posterior tibial arteries faintly palpable likely secondary to edema, right Capillary refill time less than 3 seconds to the right distal hallux. Diminished hair growth at bilateral legs and feet.? Grade 4 pitting edema to the right lower extremity. NEUROLOGICAL: Protective sensation intact 0/10 sites, tested with [place] monofilament to right foot. DERMATOLOGICAL: Healthy and clinically stable appearing wound to the plantar aspect of the right midfoot.? Wound has largely granular base, 90% granular and 10% macerated and fibrotic tissue.? Has macerated margin, wound measurements 2.4 cm in length by 4.2 cm in width by 0.2 cm in depth.? There is serosanguineous drainage, no purulence, wound does not probe to bone, tunnel or undermined, no deep structures exposed, not able to visualize tendon or fascia.? No periwound erythema.? No malodor to the right foot.? No proximal lymphangitic streaking from the wound.? Resolving cellulitis anteriorly to the right leg with skin tension lines present due to decreased edema.? Mild chronic skin pigmentation changes due to longstanding peripheral vascular disease. MUSCULOSKELETAL: Status post below-knee amputation to the left.? Hypomobility also at the right foot and ankle.? Data : 12/30/21 04:35 12/30/21 04:35 Micro: Microbiology 12/25/21 05:50 Blood Culture - Final Blood NO GROWTH AFTER 5 DAYS A&P Assessment and plan (1) Chronic kidney disease with end stage renal failure on dialysis: Status: Acute (2) Peripheral arterial disease: Status: Acute (3) Lymphedema: Status: Acute (4) Cellulitis: Status: Acute (5) Charcot's joint, right ankle and foot: Status: Acute (6) Non-pressure chronic ulcer of other part of right foot with fat layer exposed: Status: Acute Plan 61-year-old female admitted for right leg cellulitis improving while inpatient receiving antibiotic therapy. Ultimately moving forward will require aggressive decongestive therapy to help reduce lower extremity edema. She receives dialysis 3 times weekly, is on a diuretic, will need to incorporate mechanical compression and lifestyle changes of elevating her feet at all times when resting and avoid long peers of time in a gravity dependent position to the right leg. Does poorly with lymphedema wraps due to her body habitus and skin fold at the right distal leg, this cuts into her leg causing sores. My recommendation was to utilize lymphedema wraps such as Juzo or juxta lite that are in 2 pieces, 1 for the leg and one for the foot. Contacted [facility] this afternoon, they will be fitting her for right lower extremity lymphedema wrap both foot and leg tomorrow 12/30/2021. In regard to right lower extremity imaging during this hospitalization patient received an x-ray and CT to the right lower extremity.? X-rays taken to [address] scan 12/28/2021.? CT scan read was concerning for possible osteomyelitis of th e talus, tibia and fibula.? CT scan has a lower specificity and is unable to accurately differentiate osteomyelitis versus Charcot arthropathy.? She has obvious Charcot, any concern for osteomyelitis cannot be entirely ruled out however correlating her lower extremity clinically have a lower suspicion for acute osteomyelitis.? On review she has x-rays taken August 31, 2020 one of the right foot comparing those images to most recent right foot x-rays 12/25/2021 during this hospitalization I actually appreciate improvement to the overall bone density the collapse of the talus and dislocation remains unchanged, [place]ckeberg sclerosis also unchanged, cortical irregularity appreciated on August 31, 2021 is actually improving at the calcaneus, midfoot and distal tibia on the most recent x-ray.? I believe that the CT findings are likely secondary to Charcot.? Her wound at the right plantar foot is clinically very stable, no deep structures exposed is largely granular without purulent drainage or periwound erythema.? I contacted our radiology department to look at our capacity to perform a FDG PET scan this would be the imaging of choice to differentiate osteomyelitis versus Charcot if this is a study that could be performed here at our facility this will be arranged, an FDG PET scan would likely not require any renal dosing or adjustment to protocol. The wound was dressed with a silver alginate and Optifoam will continue this daily.? I advised her to keep her foot elevated level or above her hip for additional edema control.? She is to be nonweightbearing to the right lower extremity at this time.? She has a Charcot restraint orthotic walker but due to excessive edema at this time cannot be fitted.? Once edema is under control she will utilize the Charcot restraint orthotic walker to her right lower extremity when transferring.? Overall patient is sedentary, she utilizes a wheelchair.? She reports that the only time she puts weight on her right lower extremity is when she has to transfer, I believe that a Charcot restraint orthotic walker would be adequate in stabilizing her right lower extremity at this time for transfers only. Recommendations -Lymphedema control so that she can be fitted with her Charcot restraint orthotic walker for transfers to the right lower extremity. [facility] consulted and dispensed lymphedema leg wrap, physical therapy to perform lymphedema wrap to the foot and ankle. -Right lower extremity is clinically stable and cellulitis resolving with IV antibiotics, this is likely secondary to lymphedema -Right foot wound is clinically stable okay for discharge, will continue wound care follow-up -FDG PET scan can be done outpatient Attestations Medical Necessity Statement*: cellulitis Coding Level of Care Code Acute Sleeping Car Service Attendant for g Fwd Diagnoses Chronic kidney disease with end stage renal failure on dialysis N18.6; Z99.2 Peripheral arterial disease I73.9 Lymphedema I89.0 Cellulitis L03.90 Charcot's joint, right ankle and foot M14.671 Non-pressure chronic ulcer of other part of right foot with fat layer exposed L97.748
[2021-12-30] MEDS: nystatin cream 30 gm 1 APPLIC TOPICAL (08:42)
[2021-12-30] MEDS: carvedilol 25 mg Tablet PO (08:42)
[2021-12-30] MEDS: aspirin 81 mg Chew Tablet PO (08:42)
[2021-12-30] MEDS: b-complex-vitamin c Tablet 1 EACH PO (08:42)
[2021-12-30] MEDS: isosorbide mononitrate ER 60 mg Tablet 120 MG PO (08:42)
[2021-12-30] MEDS: levothyroxine 150 mcg Tablet PO (08:42)
[2021-12-30] MEDS: sevelamer 800 mg Tablet PO (08:42)
[2021-12-30] MEDS: FUROsemide 40 mg Tablet 120 MG PO (08:42)
[2021-12-30] MEDS: pantoprazole DR 40 mg Tablet PO (08:42)
[2021-12-30] MEDS: clopidogrel 75 mg Tablet PO (08:42)
[2021-12-30 09:33] VITALS: PULSE 89; RESP 18; O2SAT 96
[2021-12-30 09:38] LABS: Erythrocyte Sedimentation Rate 60 mm/hr (0-15)
--- NOTE | 2021-12-30 11:33 | PC.SOCIAL ---
IMM Update pg 2 of IMM updated and reviewed w/ patient. Copy provided and copy in chart updated.
[2021-12-30 11:45] LABS: Glucose Point of Care 136 mg/dL (70-110)
[2021-12-30 11:45] LABS: Glucose Point of Care 116 mg/dL (70-110)
[2021-12-30 11:45] LABS: Glucose Point of Care 132 mg/dL (70-110)
[2021-12-30 11:56] VITALS: BP 163/88; PULSE 106; RESP 18; TEMP 37; O2SAT 95
--- NOTE | 2021-12-30 12:47 | P.DS_ITS ---
Discharge Providers Date of Admission: 12/25/21 09:10 Date of Discharge: December 30, 2021 Attending Provider at Admission: Althea Larkin MD Attending Provider at Discharge: Ron Ca MD Primary Care Provider: Karen Bear MD Diagnoses at Discharge Discharge Diagnosis (1) Chronic kidney disease with end stage renal failure on dialysis: Status: Acute (2) Peripheral arterial disease: Status: Acute (3) Lymphedema: Status: Acute (4) Cellulitis: Status: Acute (5) Charcot's joint, right ankle and foot: Status: Acute (6) Non-pressure chronic ulcer of other part of right foot with fat layer exposed: Status: Acute Reason for Visit Reason for Visit: Infection\N\V\F\ from [facility] Hospital Course Hospital Course HPI : 61 year old female Alesia Shaw is a 61 year old female with a history of end-stage renal disease on hemodialysis via tunneled catheter history of hypertension, type 2 diabetes, HFpEF, 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 She has a left sided pleural effusion which has been present since at least 06/2021 and has undergone thoracentesis on multiple occassions, admitted 11/24 for fever and underwent left sided thoracostomy tube placement due to concern for empyema with removal of 1500 ml of bloody fluid. Patient underwent consultation with Dr Camacho to discuss possible decortication. She is a high surgical risk due to multiple medical issues including CAD, previous stent placements and ischemic cardiomyopathy with EF of 25 percent, therefore has been serially monitored with CXR which have shown steady improvement, including today. Cultures negative, including recent fungal and AFB cx from one month ago. Path showed chronic inflammatory cells with hemosiderin laden histiocytes and reactive mesothelial cells. no malignancy. Presents to the ER today with 4-5 days of feeling unwell, fever noted to be 103F on ER arrival, poor po intake, diaarrhea at baseline. No recent increase in cough or sputum production. Covid PCR negative. Recently underwent wound debridement at [facility] on 12/14 following which reports that 3 days latre her right leg started to have worsening swelling (has baseline lymphedema) and became red and warm. Mild discharge at wound site post debridement. HD tunneled cath in >1 year currently, has declined AVF formation as she is worried about cardiovascular tolerance for surgery and difficulties travelling to [place]. Hospital course : She was admitted for the management of sepsis 2/2 Sepsis: Likely secondary to right lower extremity cellulitis.Blood culture was positive for streptococcus group C 1/2 bottles, kumar sensitive , repeat blood culture was negative, she was kept on broad spectrum abxs during the hospital stay, van, zosyn and ceftriaxone on discharge she was switched to levofloxacin for 2 weeks as well as doxycycline 10 days. Orthopedic surgery and podiatry was on board for her chronic rt plantar wound : C.T Scan of rt foot without contrast:There is sclerosis with an abnormal contour of the talus, there is also fragmentation of the talus. There is periosteal reaction at the distal diaphysis of the tibia and the lateral malleolus, findings are suspicious for osteomyelitis. Small/moderate ankle joint effusion with thickening and enhancement of the joint lining, suspicious for septic arthritis.Podiatry is of the opinion that C.T findings are likely that of charcot. Podaitry wants to do FDG PET as outpatient to conclusively r/o osteomyelitis.The have decided to do as an outpatient. Orthopedic was on board and there clinical suspicion for septic arthritis is low. for her persistent right pleural effusion, s/p recent thoracentesis Nov 2021, decortication deferred due to multiple comorbidities, recent pleural cx all negative, completed extended course of broad spectrum abx.Repeat CXR have shown improvement. She remained afebrile during the hospital stay, and was hemodynamically stable,rotuine H/D was continued.She was discharged home in stable condition she will continue to follow, podiatry, cardiology, her pcp as outpatient. Physical Exam Const: COMMON NORMALS: patient oriented x3 HENMT: COMMON NORMALS: normocephalic, atraumatic, hearing grossly normal bilaterally and external ears normal HEAD & SCALP: normocephalic and atraumatic EXTERNAL EAR: Yes external ears normal Eye: COMMON NORMALS: no scleral icterus GENERAL EYE: appearance normal, both eyes and all related structures Chest: COMMONS NORMALS: normal inspection of the chest and normal palpation of entire chest wall CHEST: Yes Symmetrical chest wall rise Resp: COMMON NORMALS: normal respiratory effort, No retractions, No use of accessory muscles and clear to auscultation bilaterally EFFORT & INSPECTION: Yes symmetric chest movement AUSCULTATION: clear to auscultation bilaterally Cardio: COMMON NORMALS: regular rate, regular rhythm, S1 normal heart sound present, S2 normal heart sound present, No gallops present (Cardio), No murmurs present (Cardio), No rub (Cardio) and Peripheral pulses 2+ throughout RATE: regular rate RHYTHM: regular rhythm HEART SOUNDS: S1 normal heart sound present and S2 normal heart sound present PERIPHERAL PULSES: Peripheral pulses 2+ throughout GI: COMMON NORMALS: Normal to inspection, nondistended, normoactive bowel sounds present, Soft to palpation, non-tender, No hepatosplenomegaly present and no masses AUSCULTATION: Yes normoactive bowel sounds PALPATION: Yes Soft to palpation and Yes No hepatosplenomegaly present RECTAL EXAM: deferred Extremity: NARRATIVE EXTREMITY EXAM: RT FOOT Chronic Ulcer, RT lower extremity redness. chronic lymphedema Neuro: COMMON NORMALS: patient oriented x3 Discharge Data Studies Completed and Pending Completed Studies During Hospitalization Category Date Time Status CT foot RT wo con* [id number] Routine Cat Scan 12/28/21 16:45 Completed XR ankle RT 2V [id number] Urgent Exams 12/25/21 06:19 Completed XR chest 1V portable [id number] Urgent Exams 12/25/21 06:00 Completed XR foot RT 2V [id number] Urgent Exams 12/25/21 06:19 Completed XR tibia fibula RT 2V [id number] Urgent Exams 12/25/21 06:19 Completed Pending at discharge Category Date Time Status Blood Culture AM LABS Lab 12/27/21 04:55 Results Blood Culture Stat Lab 12/25/21 06:00 Results Blood Culture Stat Lab 12/27/21 15:00 Results Clostridioides Difficile PCR Routine Lab 12/25/21 09:09 Ordered Complete Blood Count w/Auto AM LABS Lab 12/30/21 04:35 Results Comprehensive Metabolic Panel AM LABS Lab 12/31/21 04:00 Ordered Comprehensive Metabolic Panel AM LABS Lab 01/01/22 04:00 Ordered Comprehensive Metabolic Panel AM LABS Lab 01/02/22 04:00 Ordered Enteric Bacterial Panel by PCR Routine Lab 12/25/21 09:09 Ordered Enteric Parasite Panel by PCR Routine Lab 12/25/21 09:09 Ordered Erythrocyte Sedimentation Rate Routine Lab 12/30/21 05:39 Ordered Immunochemical Fecal OCB Routine Lab 12/25/21 09:09 Ordered Lactoferrin Routine Lab 12/25/21 09:09 Ordered Magnesium AM LABS Lab 12/31/21 04:00 Ordered Magnesium AM LABS Lab 01/01/22 04:00 Ordered Magnesium AM LABS Lab 01/02/22 04:00 Ordered Phosphorus AM LABS Lab 12/31/21 04:00 Ordered Phosphorus AM LABS Lab 01/01/22 04:00 Ordered Phosphorus AM LABS Lab 01/02/22 04:00 Ordered Uric Acid AM LABS Lab 12/31/21 04:00 Ordered Radiology Impressions Chest X-Ray 12/25/21 06:00 IMPRESSION: 1. Left basilar airspace opacities are mildly improved from 12/14/2021. 2. Similar small bilateral pleural effusions. Ankle X-Ray 12/25/21 06:19 IMPRESSION: 1. No acute fracture. 2. Redemonstrated Charcot arthropathy of the hindfoot. 3. Remote fracture of the distal fibula with nonunion. Foot X-Ray 12/25/21 06:19 IMPRESSION: 1. No acute fracture or specific radiographic evidence of acute osteomyelitis. 2. Evidence of Charcot joint, similar to mildly progressed from prior. 3. Soft tissue edema about the right foot and ankle. Tibia/Fibula X-Ray 12/25/21 06:19 IMPRESSION: 1. No acute fracture. 2. 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 3. Soft tissue edema about the right leg. Foot CT 12/28/21 16:45 IMPRESSION: 1. There is sclerosis with an abnormal contour of the talus, there is also fragmentation of the talus. There is periosteal reaction at the distal diaphysis of the tibia and the lateral malleolus, findings are suspicious for osteomyelitis. 2. Small/moderate ankle joint effusion with thickening and enhancement of the joint lining, suspicious for septic arthritis. 3. Findings suspicious for extensive cellulitis in the visualized right lower leg, ankle, and foot. 4. There is disruption of the tibiotalar joint and the talocalcaneal joint, suggesting a Charcot joint. 5. Incidental/nonacute findings are listed in the report. Laboratory Results WBC 7.7 10^3/uL (4.0-10.0) 12/30/21 04:35 RBC 2.47 10^6/uL (4.1-5.3) L 12/30/21 04:35 Hgb 8.1 g/dL (11.5-15.3) L 12/30/21 04:35 Hct 26.4 % (37.0-47.0) L 12/30/21 04:35 MCV 106.9 fl (81-99) H 12/30/21 04:35 MCH 32.8 pg (28.0-34.0) 12/30/21 04:35 MCHC 30.7 g/dL (30.0-36.0) 12/30/21 04:35 RDW 15.6 % (12.1-15.1) H 12/30/21 04:35 Plt Count 181 10^3/cmm (130-400) 12/30/21 04:35 MPV 11.0 fL (7.4-10.4) H 12/30/21 04:35 Neut % (Auto) 67.6 % 12/29/21 04:29 Lymph % (Auto) Not Reportable 12/30/21 04:35 [place] % (Auto) Not Reportable 12/30/21 04:35 Eos % (Auto) 6.0 % 12/29/21 04:29 Baso % (Auto) 1.1 % 12/29/21 04:29 Neut # (Auto) 5.05 10^3/uL (1.8-7.7) 12/29/21 04:29 Lymph # (Auto) Not Reportable 12/30/21 04:35 [place] # (Auto) Not Reportable 12/30/21 04:35 Eos # (Auto) 0.5 10^3/uL (0.0-0.8) 12/29/21 04:29 Baso # (Auto) 0.1 10^3/uL (0.0-0.1) 12/29/21 04:29 Nucleated RBC % (auto) 0 % 12/29/21 04:29 Total Counted 100 (0-100) 12/30/21 04:35 Atypical Lymphs % 0.0 % (0-5) 12/30/21 04:35 Absolute Neutrophils 5.2 10^3/cmm (1.4-6.5) 12/30/21 04:35 Segmented Neutrophils 60 % 12/30/21 04:35 Abs Segm Neuts (Man) 4.6 10/cmm (1.6-7.1) 12/30/21 04:35 Band Neutrophils 7.0 % 12/30/21 04:35 Abs Band Neuts (Man) 0.5 10^3/cmm (0.0-1.2) 12/30/21 04:35 Absolute Lymphocytes 1.1 10^3/cmm (1.2-3.4) L 12/30/21 04:35 Lymphocytes (Manual) 14 % 12/30/21 04:35 Monocytes (Manual) 9.0 % 12/30/21 04:35 Absolute Monocytes 0.7 10^3/cmm (0.1-0.6) H 12/30/21 04:35 Eosinophils (Manual) 6 % 12/30/21 04:35 Absolute Eosinophils 0.4 10^3/cmm (0.0-0.7) 12/30/21 04:35 Basophils (Manual) 0.0 % 12/30/21 04:35 Absolute Basophils 0.0 10^3/cmm (0.0-0.2) 12/30/21 04:35 Metamyelocytes 2.0 % 12/30/21 04:35 Myelocytes 2.0 % 12/30/21 04:35 Nucleated RBCs # 0.0 /100WBC 12/29/21 04:29 Platelet Estimate Normal (Normal) 12/30/21 04:35 Polychromasia Trace 12/30/21 04:35 Macrocytosis 2+ H 12/30/21 04:35 ESR 60 mm/hr (0-15) H 12/30/21 09:03 Specimen Type Arterial 12/25/21 10:26 Sample Site Radial, right 12/25/21 10:26 ABG pH 7.47 (7.35-7.45) H 12/25/21 10:26 ABG pCO2 42.0 mmHg (35-45) 12/25/21 10:26 ABG pO2 86.0 mmHg (80.0-100.0) 12/25/21 10:26 ABG HCO3 30.2 mmol/L (22-26) H 12/25/21 10:26 ABG Base Excess 5.9 mmol/L (-2.0-2.0) H 12/25/21 10:26 Jalil Test Pos 12/25/21 10:26 Hematocrit 26.8 % (37-47) L 12/25/21 10:26 O2 Delivery Device Nc 12/25/21 10:26 O2 Liters/Min 2.0 % 12/25/21 10:[address] ID Bib 12/25/21 10:26 Sodium 135 mmol/L (136-145) L 12/30/21 04:35 Potassium 4.7 mmol/L (3.5-5.1) 12/30/21 04:35 Chloride 99 mmol/L (98-107) 12/30/21 04:35 Carbon Dioxide 24 mmol/L (22-29) 12/30/21 04:35 Anion Gap 16.7 (5-19) 12/30/21 04:35 BUN 21 mg/dL (6-20) H 12/30/21 04:35 Creatinine 4.3 mg/dL (0.5-0.9) H 12/30/21 04:35 GFR Calculation 10.5 mL/min (90-130) L 12/30/21 04:35 Glucose 135 mg/dL (65-115) H 12/30/21 04:35 POC Glucose 136 mg/dL (70-110) H 12/30/21 11:11 Calculated Osmolality 285 mOsm/kg (285-295) 12/30/21 04:35 Lactate 1.9 mmol/L (0.5-2.2) 12/25/21 06:00 Uric Acid 4.7 mg/dL (2.4-5.7) 12/27/21 15:00 Calcium 8.5 mg/dL (8.5-10.5) 12/30/21 04:35 Phosphorus 3.3 mg/dL (2.5-4.5) 12/30/21 04:35 Magnesium 2.3 mg/dL (1.7-2.3) 12/30/21 04:35 Iron 69 ug/dL (37-145) 12/28/21 04:35 TIBC 106 mcg/dl 12/28/21 04:35 % Saturation 65.0 % (20-50) H 12/28/21 04:35 Unsat Iron Binding 37 ug/dL (112-347) L 12/28/21 04:35 Ferritin 1253 ng/mL (15-150) H 12/28/21 04:35 Total Bilirubin 0.4 mg/dL (0.15-1.2) 12/30/21 04:35 AST 20 U/L (0-32) 12/30/21 04:35 ALT 13 U/L (0-33) 12/30/21 04:35 Alkaline Phosphatase 196 IU/L (35-105) H 12/30/21 04:35 C-Reactive Protein 18.3 mg/L (0.0-4.9) H 12/30/21 04:35 Total Protein 6.7 g/dL (6.6-8.7) 12/30/21 04:35 Albumin 3.0 g/dL (3.5-5.2) L 12/30/21 04:35 Globulin 3.7 g/dL (1.3-4.6) 12/30/21 04:35 25-OH Vitamin D Total 35 ng/mL (30-100) 12/28/21 04:35 Procalcitonin 8.23 ng/mL (0-0.5) H 12/25/21 06:00 PTH Intact 77.3 pg/mL (15-65) H 12/28/21 04:35 Calcium (PTH Intact) 8.9 mg/dL (8.5-10.5) 12/28/21 04:35 Coronavirus 229E (PCR) Not detected (NOT DETECT) 12/25/21 06:28 Hep Bs Antigen Non-reactive (Nonreactive) 12/27/21 15:00 Hep Bs Antibody > 1000.0 (11.5-1000) H 12/27/21 15:00 Hepatitis C Antibody Non-reactive (Nonreactive) 12/27/21 15:00 SARS-CoV-2 (PCR) Not detected (NOT DETECT) 12/25/21 06:28 Vitals Last Vital Signs Temp 98.6 F 12/30/21 11:56 Pulse 106 H 12/30/21 11:56 Resp 18 12/30/21 11:56 BP 163/88 12/30/21 11:56 Pulse Ox 95 12/30/21 11:56 Discharge Plan Discharge Patient Disposition: Home Condition: Stable Prescriptions: New doxycycline hyclate 100 mg tablet,delayed release (DR/EC) 100 mg PO BID 10 Days Qty: 20 0RF levofloxacin 750 mg tablet 750 mg PO Q48H 14 Days Qty: 7 0RF Continued nystatin 100,000 unit/gram cream 1 applic topical BID Qty: 30 0RF furosemide 80 mg tablet 120 mg PO 0800,1400 Qty: 270 1RF Synthroid 150 mcg tablet 150 mcg PO DAILY Qty: 30 5RF Rx Instructions: Take 1 tablet by mouth once daily (DME) [employer]ator See Rx Instructions .Route .MEDSUPPLY Qty: 1 0RF Rx Instructions: As directed hydralazine 50 mg tablet 50 mg PO TID Qty: 90 3RF isosorbide mononitrate 120 mg tablet extended release 24 hr 120 mg PO DAILY Qty: 30 2RF promethazine-DM 6.25-15 mg/5 mL syrup 5 ml PO Q6H PRN (Reason: cough) Qty: 160 0RF albuterol sulfate [ProAir HFA] 90 mcg/actuation Hfa Aerosol Inhaler 2 puff INHALATION Q4H PRN (Reason: Shortness Of Breath) 0RF RenaPlex-D 800 mcg-12.5 mg -2,000 unit tablet 1 tab PO DAILY 0RF clopidogrel 75 mg Tablet 75 mg PO DAILY 90 Days Qty: 90 2RF nitroglycerin 0.4 mg Tablet, Sublingual 0.4 mg sublingual Q5M PRN (Reason: Chest Pain) 30 Days Qty: 30 2RF aspirin [Children's Aspirin] 81 mg Tablet,Chewable 81 mg PO DAILY 90 Days Qty: 90 2RF doxazosin [Cardura] 2 mg tablet 8 mg PO BID 0RF psyllium husk [Metamucil] 0.4 gram Capsule 0.4 g PO DAILY 0RF ondansetron HCl 4 mg Tablet 8 mg PO Q8H PRN (Reason: Nausea And Vomiting) Qty: 10 0RF Tums Ultra 470 mg calcium (1,177 mg) tablet,chewable 3,531 mg PO . TID AND WITH MEALS 0RF Renvela 800 mg tablet 800 mg PO DAILY 0RF carvedilol [Coreg] 25 mg Tablet 25 mg PO BID 0RF No Action gentamicin 0.1 % cream 1 applic topical TID Qty: 30 3RF Discharge Orders: Discharge Order (Routine); Ordered 12/30/21 Ordered By: Ron Ca Referrals: Allison Gamble MD [Physician] - 02/02/22 2:15 pm (You have an appointment with Dr. Gamble on February 02 at 2:15. This appointment will replace your previous appointment on February 17.) Karen Bear MD [Primary Care Provider] - 01/11/22 11:00 am (You have an appointment with Dr. Bear on January 11 at 11:00.) Patient Instructions: Doxycycline (By mouth) (Acticlate, Adoxa, Avidoxy, Monodox, Doryx), Levofloxacin (By mouth) (Levaquin, Levaquin Leva-concepcion), Cellulitis (ED), Sepsis (GEN), Lymphedema (DC), Opioid Safety Discharge Attestations Time Spent in Discharge Care*: greater than 30 min Specific Discharge Activities: educating patient, educating and/or supporting family/caregiver, discussing with pcp/other providers, discussing with vocational case manager/social workers/dc planners, documenting/other paperwork and evaluating patient/reviewing data Status at Discharge: Cognitive status at discharge: cognitively intact , Behavioral status at discharge: cooperative , Quality Metrics Clinical Quality Measures [ No reported AMI, CVA or VTE this stay] Coding Level of Care Code Acute Chg FW DC note Exam Detailed Diagnoses Chronic kidney disease with end stage renal failure on dialysis N18.6; Z99.2 Peripheral arterial disease I73.9 Lymphedema I89.0 Cellulitis L03.90 Charcot's joint, right ankle and foot M14.671 Non-pressure chronic ulcer of other part of right foot with fat layer exposed L97.512
== END 2021-12-30 13:33 | disposition home health service (06) | DRG 871 ==
LOC: ER 06:34 → ER IP 11:44 → MEDSURG 20:26
PROVIDERS: Emergency Medicine; Internal Medicine Nephrology; Admitting Provider Student in an Organized Health Care Education/Training Program; Emergency Provider Emergency Medicine; PCP Family Medicine; Visit Provider Internal Medicine
DX: A41.9 Sepsis, unspecified organism (principal); N18.6 End stage renal disease; L03.115 Cellulitis of right lower limb; I13.2 Hypertensive heart and chronic kidney disease with heart failure and with stage 5 chronic kidney disease, or end stage renal disease; I50.30 Unspecified diastolic (congestive) heart failure; E87.1 Hypo-osmolality and hyponatremia; J90 Pleural effusion, not elsewhere classified; B95.4 Other streptococcus as the cause of diseases classified elsewhere; E11.22 Type 2 diabetes mellitus with diabetic chronic kidney disease; E11.610 Type 2 diabetes mellitus with diabetic neuropathic arthropathy; E11.621 Type 2 diabetes mellitus with foot ulcer; L97.512 Non-pressure chronic ulcer of other part of right foot with fat layer exposed; I25.10 Atherosclerotic heart disease of native coronary artery without angina pectoris; E78.5 Hyperlipidemia, unspecified; E03.9 Hypothyroidism, unspecified; I25.5 Ischemic cardiomyopathy; D63.1 Anemia in chronic kidney disease; I89.0 Lymphedema, not elsewhere classified; E11.51 Type 2 diabetes mellitus with diabetic peripheral angiopathy without gangrene; E11.42 Type 2 diabetes mellitus with diabetic polyneuropathy; Z89.512 Acquired absence of left leg below knee; Z99.2 Dependence on renal dialysis; Z95.828 Presence of other vascular implants and grafts; Z79.02 Long term (current) use of antithrombotics/antiplatelets; Z79.82 Long term (current) use of aspirin; Z86.14 Personal history of Methicillin resistant Staphylococcus aureus infection; Z95.5 Presence of coronary angioplasty implant and graft
CPT/HCPCS: 36415; 36416; 36600; 71045; 73590; 73600; 73620; 73700; 80053; 82306; 82310; 82728; 82803; 82962; 83540; 83550; 83605; 83735; 83970; 84100; 84145; 84550; 85007; 85025; 85651; 86140; 86706; 86803; 87040; 87077; 87150; 87186; 87205; 87340; 87635; 96365; 96366; 96367; 96372; 96375; 96376; 99285; J0692; J0696; J1644; J1650; J2405; J2543; J3370; J7030; J7050; Q3014; Q4081

== ENCOUNTER 2022-01-18 11:15 | Observation (INO) | payer MEDICARE, MEDICAID, SELFPAY ==
[2022-01-18] VITALS (11 sets, daily range): BP systolic 154–185; BP diastolic 92–131; PULSE 68–105; RESP 6–22; TEMP 36.1–36.2; O2SAT 97–98; BMI 36.1
--- NOTE | 2022-01-18 11:17 | XRR_ITS ---
PROCEDURE INFORMATION: Exam: XR Chest Exam date and time: 01/18/2022 11:17 AM Age: 61 years old Clinical indication: Pain; Angina pectoris; Additional info: Chest pain TECHNIQUE: Imaging protocol: XR of the chest. Views: 1 view. COMPARISON: CR (CHEST, ) 12/25/2021 6:29 AM FINDINGS: Tubes, catheters and devices: A dialysis catheter is present in satisfactory position with the tip projecting in the superior vena cava. Lungs: There is stable bibasilar atelectasis more prominently on the left side. Pleural spaces: Small pleural effusions are present larger on the left side. Heart/Mediastinum: Unremarkable. No cardiomegaly. Bones/joints: Unremarkable. XR/XR chest 1V portable [id number] IMPRESSION: Stable pleural effusions and basilar atelectasis.
--- NOTE | 2022-01-18 11:17 | ECG_ITS ---
[facility] Test Date: 2022-01-18 Pat Name: Alesia Shaw Department: Room: Gender: Female [employer]: : 1960 Requested By: Deepak Jimenez Order Number: [id number] Leha MD: Fly Long M.D. Measurements Intervals [place] Rate: 104 P: -36 HI: 275 QRS: -38 QRSD: 144 T: 96 QT: 403 QTc: 531 Interpretive Statements SINUS TACHYCARDIA WITH FIRST DEGREE AV BLOCK LEFT ATRIAL ENLARGEMENT [-0.15mV P-WAVE IN V1/V2] LEFT AXIS DEVIATION [QRS AXIS < -30] LEFT BUNDLE BRANCH BLOCK [120+ ms QRS DURATION, 80+ ms Q/S IN V1/V2, 85+ ms R IN I/aVL/V5/V6] Compared to ECG 11/27/2021 14:35:17 First degree AV block now present Left bundle-branch block now present Sinus rhythm no longer present Left ventricular hypertrophy no longer present ST (T wave) deviation no longer present Electronically Signed On 01-18-2022 17:30:08 BREAK OUT MAN by Fly Long M.D. [email or web address]
[2022-01-18 11:28] LABS: Basophils # 0.1 10^3/uL (0.0-0.1); Basophils % 1.1 %; Eosinophils # 0.2 10^3/uL (0.0-0.8); Hematocrit 28.7 % (37.0-47.0); Hemoglobin 9.2 g/dL (11.5-15.3); Lymphocytes # 0.6 10^3/uL (0.8-4.8); Lymphocytes % 12.6 %; Mean Corpuscular HGB Conc 32.1 g/dL (30.0-36.0); Mean Corpuscular Hemoglobin 33.2 pg (28.0-34.0); Mean Corpuscular Volume 103.6 fl (81-99); Mean Platelet Volume 10.3 fL (7.4-10.4); Monocytes # 0.5 10^3/uL (0.2-0.9); Monocytes % 11.7 %; Neutrophils # 3.17 10^3/uL (1.8-7.7); Neutrophils % 68.9 %; Nucleated Red Blood Cells % 0 %; Platelet Count 170 10^3/cmm (130-400); Red Blood Count 2.77 10^6/uL (4.1-5.3); Red Cell Distribution Width 16.1 % (12.1-15.1); White Blood Count 4.6 10^3/uL (4.0-10.0)
[2022-01-18] MEDS: nitroglycerin 0.4 mg sublingual Tablet SUBLINGUAL (11:31)
--- NOTE | 2022-01-18 11:31 | W.ED.GENADLT ---
HPI - General Adult General: Chief complaint: Chest Pain Stated complaint: CHEST PAIN Time Seen by Provider: 01/18/22 11:17 History of Present Illness: CC: Chest Pain HPI: This is a [61]yo patient hx of HTN, CAD s/ p JD to LAD and first diag in 06/2021, MRSA bacteremia/endocarditis/ L BKA, ESRD on dialysis MWF, recurrent pleural effusion of unknown etiology w/ recurrent thoracetnesis presenting to the ED w/ acute onset intermittent substernal chest pain x 4 hours. Patient tells me that this morning when she woke up she begins expensing left-sided pressure-like chest pain. Chest pain is relieved with nitro. So far, patient has taken about 9 tablets nitro and pain is still 6 out of 10. Pain is not tearing in nature and does not radiate to the back. Endorse nausea but has no associated with vomiting or decreased PO intake. Denies any recent sympathomimetic drug use. Patient denies any cough. Denies palpitations, syncope symptoms. Pain not positional. No recent immobility, surgery, unilateral leg swelling, or prior PE. Patient denies any orthopnea, paroxysmal nocturnal dyspnea, weight gain, or increased leg swellings. Onset: 4 hrs ago Duration: ongoing for the last 4 hours Location: home Severity: moderate/severe Associated symptoms: Reports chest pain; Deny dyspnea, nausea, rash, palpitations or vomiting Review of Systems Const: Denies: fever(s) or chills Eyes: Denies: change in vision ENMT: Denies: mouth pain Card: Reports: chest pain; Denies: palpitations Resp: Denies: dyspnea or non-productive cough GI: Denies: abdominal pain, nausea, vomiting or diarrhea : Denies: dysuria Musc: Denies: extremity pain Skin/Breast: Denies: rash or new lesions Neuro: Denies: weakness in extremities Psych: Reports: other (Normal mood) Jimmy/Lymph: Denies: easy bruising PFSH ED PFSH: Medical History Acute bronchitis Anemia Aortic valve endocarditis Bacteremia due to Staphylococcus EKG done this morning revealed normal sinus rhythm with a left axis deviation. Voltage area for LVH. No significant ST-T changes. 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 Neuropathy Protein-energy malnutrition Septic arthritis of left ankle Surgical History Central vascular catheter in place upon arrival History of cholecystectomy History of colonoscopy with polypectomy 2017 History of left below knee amputation History of lumbar surgery Due to epidural abscess in March 2018 Peritoneal dialysis catheter in place removal 05/20/21 S/P hemodialysis catheter insertion Status post below-knee amputation of left lower extremity Family History Mother Cancer Uterine and breast cancer Father Diabetes Other CAD (coronary artery disease) Social History Smoking and tobacco status: never smoked Alcohol intake: current Alcohol intake frequency: holidays/special occasions only Physical Exam Const: COMMON NORMALS: alert HENMT: COMMON NORMALS: atraumatic HEAD & SCALP: atraumatic MOUTH: moist mucous membranes not abnormal Eye: COMMON NORMALS: EOMs intact bilaterally and conjunctivae normal CONJUNCTIVA: Yes conjunctivae normal Neck/C-Spine: COMMON NORMALS: full ROM and supple Chest: OTHER: +R chest hemodialysis cathethers in place Resp: COMMON NORMALS: normal respiratory effort and clear to auscultation bilaterally AUSCULTATION: clear to auscultation bilaterally Cardio: COMMON NORMALS: regular rate RATE: regular rate GI: COMMON NORMALS: Soft to palpation and non-tender PALPATION: Yes Soft to palpation Extremity: COMMON NORMALS: full ROM OTHER: +L BKA Neuro: SENSORIUM/ORIENTATION: Yes alert MOTOR EXAM: No Abnormal motor strength present and Other motor observations present (no focal motor deficits) Psych: COMMON NORMALS: speech normal SPEECH: Yes normal speech MOOD & AFFECT: Yes euthymic mood Course Vital Signs: Vital signs: Vital Signs Pulse Rate 68 01/18/22 14:15 Respiratory Rate 17 01/18/22 14:15 Blood Pressure 157/96 01/18/22 14:15 Pulse Oximetry 98 01/18/22 14:15 MDM - General Adult Medical Decision Making [61]yo patient w/ hx of DM, HTN, CAD s/p JD x 3 presenting to the ED With acute substernal chest pain X 4 hrs with hx of similar prior pain. Chest pain 6/10 after 9 tablets of nitroglycerin Given History And Exam today I have moderate to high suspicion for ACS/UA/NSTEMI. Today, I have NO suspicion for pneumothorax, pneumonia, pulmonary embolus, tamponade, aortic dissection or other emergent problem as a cause for this presentation. ECG did not show any signs of acute STEMI. Workup: ECG x2, CXR, CBC, BMP, Troponin x2 Intervention: LS nitro, nitro drip Findings: ECG: LBBB. Does not meet Sgarbossa Criteria. No overt evidence of STEMI, hyperacute T waves, localizable STD or T wave inversions. No evidence of Brugada?s sign, delta wave, epsilon wave, significantly prolonged QTc, or malignant arrhythmia. No Q waves. Troponin: Other Labs unremarkable for emergent problems. CXR: Without PTX, PNA, or widened mediastinum [12:30pm] On reassessment, the patient is currently chest pain free. S/p aspirin 325mg. Pain improved on nitroglyceirn drip. Troponin of 170 with delta <5. CTA negative for dissection or large PE. Will be admitted for persistent chest pain Disposition: Inpatient admission. Lab Data : 01/18/22 11:20 01/18/22 11:20 Radiology Impressions Chest X-Ray 01/18/22 11:17 IMPRESSION: Stable pleural effusions and basilar atelectasis. Chest/Abdomen/Pelvis CTA 01/18/22 13:38 IMPRESSION: 1. No aortic dissection or aneurysm. 2. Extensive severe atherosclerotic disease throughout the arteries in the chest, abdomen and pelvis. 3. Diffuse soft tissue anasarca. 4. Small amount of ascites. 5. Advanced degenerative changes in thoracic and lumbar spine with osteophyte encroaching upon the thecal sac at the L4-5 level and foraminal stenosis. 6. Small bilateral pleural effusions. 7. Indeterminate mediastinal, hilar, retroperitoneal and mesenteric lymphadenopathy. May be reactive. 8. Cardiomegaly. Laboratory Results WBC 4.6 10^3/uL (4.0-10.0) 01/18/22 11:20 RBC 2.77 10^6/uL (4.1-5.3) L 01/18/22 11:20 Hgb 9.2 g/dL (11.5-15.3) L 01/18/22 11:20 Hct 28.7 % (37.0-47.0) L 01/18/22 11:20 MCV 103.6 fl (81-99) H 01/18/22 11:20 MCH 33.2 pg (28.0-34.0) 01/18/22 11:20 MCHC 32.1 g/dL (30.0-36.0) 01/18/22 11:20 RDW 16.1 % (12.1-15.1) H 01/18/22 11:20 Plt Count 170 10^3/cmm (130-400) 01/18/22 11:20 MPV 10.3 fL (7.4-10.4) 01/18/22 11:20 Neut % (Auto) 68.9 % 01/18/22 11:20 Lymph % (Auto) 12.6 % 01/18/22 11:20 [place] % (Auto) 11.7 % 01/18/22 11:20 Eos % (Auto) 5.0 % 01/18/22 11:20 Baso % (Auto) 1.1 % 01/18/22 11:20 Neut # (Auto) 3.17 10^3/uL (1.8-7.7) 01/18/22 11:20 Lymph # (Auto) 0.6 10^3/uL (0.8-4.8) L 01/18/22 11:20 [place] # (Auto) 0.5 10^3/uL (0.2-0.9) 01/18/22 11:20 Eos # (Auto) 0.2 10^3/uL (0.0-0.8) 01/18/22 11:20 Baso # (Auto) 0.1 10^3/uL (0.0-0.1) 01/18/22 11:20 Nucleated RBC % (auto) 0 % 01/18/22 11:20 Nucleated RBCs # 0.0 /100WBC 01/18/22 11:20 Sodium 134 mmol/L (136-145) L 01/18/22 11:20 Potassium 5.0 mmol/L (3.5-5.1) 01/18/22 11:20 Chloride 93 mmol/L (98-107) L 01/18/22 11:20 Carbon Dioxide 28 mmol/L (22-29) 01/18/22 11:20 Anion Gap 18.0 (5-19) 01/18/22 11:20 BUN 24 mg/dL (6-20) H 01/18/22 11:20 Creatinine 4.4 mg/dL (0.5-0.9) H 01/18/22 11:20 GFR Calculation 10.3 mL/min (90-130) L 01/18/22 11:20 Glucose 97 mg/dL (65-115) 01/18/22 11:20 POC Glucose 92 mg/dL (70-110) 01/18/22 11:18 Calculated Osmolality 282 mOsm/kg (285-295) L 01/18/22 11:20 Calcium 9.1 mg/dL (8.5-10.5) 01/18/22 11:20 Troponin T Baseline 170 ng/L (0-10) H* 01/18/22 11:20 Troponin T 120 Minute 166.7 ng/L (0-10) H 01/18/22 13:23 Delta Troponin T -3.3 ABS# (0-10) L 01/18/22 13:23 Imaging Data Other Imaging: Radiologist's impression: [address] [address] [address] Scan Report Signed Patient: Alesia Shaw Unit #: [id number] : 1960 Age/Sex: 61 / F ADM Date: 01/18/22 Loc: ER Room/Bed: Attending Dr: Ordering Provider/Ordering MD: Deepak Jimenez MD Date of Service: 01/18/22 Procedure(s): CT angio chest abdomen pelvis Accession Number(s): [id number] Report Number: [id number] WS: [id number] CTA CHEST, ABDOMEN AND PELVIS. HISTORY: Possible dissection, back pain. TECHNIQUE: Pre and postcontrast imaging through the chest. CT angiogram is performed through the chest. Additional imaging is performed through the abdomen and pelvis with IV contrast. Sagittal and coronal reformats have been submitted.? MIP imaging also reviewed. All CT scans at [facility] use at least one of these dose optimization techniques: automated exposure control; mA and/or kV adjustment per patient size (includes targeted exams where dose is matched to clinical indication); or iterative reconstruction. Contrast: Visipaque 95 cc IV. DLP: 2911.47 mGy.cm COMPARISON: 11/24/2021 Chest CTA: Opacification of the thoracic aorta. No aneurysmal dilatation. No dissection is evident. Normal size thoracic aorta. No luminal flap extending into the proximal great vessels. Moderate calcified plaque at the proximal LEFT subclavian artery. Ascending thoracic aorta is normal caliber. Pulmonary artery size is slightly enlarged. Contrast opacification in adequate to exclude embolism. Small bilateral pleural effusions with bilateral mild groundglass attenuation and subsegmental atelectasis associated with the effusions. No pneumothorax. Mediastinal and hilar lymphadenopathy. Lymphadenopathy measures 14 to 15 mm. There are numerous small lymph nodes along the anterior mediastinum and in the hilar regions. Diffuse soft tissue anasarca. Abdomen CTA: Normal size abdominal aorta with no dissection to the bifurcation. Heavy calcification throughout the aorta and the mesenteric arteries. There is heavy calcified plaque extending into the celiac axis and mesenteric arteries. Moderate atherosclerotic plaque within the renal arteries. Inferior mesenteric artery is heavily calcified. Mild hepatic congestion. Early enhancement imaging through the liver and spleen are negative. Atrophied pancreas. No adrenal mass. Gallbladder is within. Soft tissue anasarca. Calcifications are noted extensively throughout the renal arteries. There is perinephric stranding. Retroperitoneal mesenteric moderately enlarged lymph nodes. No GI tract obstruction. No free air or evidence for ischemia. Pelvic CTA: Heavy calcification within the iliac arteries. No dissection or aneurysm. Free fluid in the pelvis. Soft tissue anasarca. No distended urinary bladder. Advanced degenerative changes throughout the thoracic and lumbar spines. Osteophyte extends into the lumbar canal from the L4-5 vertebral bodies encroaching and deforming the ventral thecal sac. Central and bilateral foraminal stenosis at the L4-5 level. There are additional areas of encroachment upon the foramina and central canal throughout the lumbar region. CT/CT angio chest abdomen pelvis IMPRESSION: ? 1.? No aortic dissection or aneurysm. 2.? Extensive severe atherosclerotic disease throughout the arteries in the chest, abdomen and pelvis. 3.? Diffuse soft tissue anasarca. 4.? Small amount of ascites. 5.? Advanced degenerative changes in thoracic and lumbar spine with osteophyte encroaching upon the thecal sac at the L4-5 level and foraminal stenosis. 6.? Small bilateral pleural effusions. 7.? Indeterminate mediastinal, hilar, retroperitoneal and mesenteric lymphadenopathy. May be reactive. 8.? Cardiomegaly. ? ? ? Dictated By: Erica Romero DO Signed By: Erica Romero DO Signed Date/Time: 01/18/22 1430 DD/ [address] [place] [address] XRay Report Signed Patient: Alesia Shaw Unit #: [id number] : 1960 Age/Sex: 61 / F ADM Date: 01/18/22 Loc: ER Room/Bed: Attending Dr: Ordering Provider/Ordering MD: Deepak Jimenez MD Date of Service: 01/18/22 Procedure(s): XR chest 1V portable [id number] Accession Number(s): [id number] Report Number: [id number] PROCEDURE INFORMATION: Exam: XR Chest Exam date and time: 01/18/2022 11:17 AM Age: 61 years old Clinical indication: Pain; Angina pectoris; Additional info: Chest pain TECHNIQUE: Imaging protocol: XR of the chest. Views: 1 view. COMPARISON: CR (CHEST, ) 12/25/2021 6:29 AM FINDINGS: Tubes, catheters and devices: A dialysis catheter is present in satisfactory position with the tip projecting in the superior vena cava. Lungs: There is stable bibasilar atelectasis more prominently on the left side. Pleural spaces: Small pleural effusions are present larger on the left side. Heart/Mediastinum: Unremarkable. No cardiomegaly. Bones/joints: Unremarkable. XR/XR chest 1V portable 72217 IMPRESSION: Stable pleural effusions and basilar atelectasis. ? 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
[2022-01-18] MEDS: nitroglycerin drip 50 MG/250 ML PREMIX IV (11:40)
[2022-01-18 11:49] LABS: Blood Urea Nitrogen 24 mg/dL (6-20); Calcium 9.1 mg/dL (8.5-10.5); Carbon Dioxide 28 mmol/L (22-29); Chloride 93 mmol/L (98-107); Glomerular Filtration Rate 10.3 mL/min (90-130); Glucose 97 mg/dL (65-115); Osmolality Calculated 282 mOsm/kg (285-295); Sodium 134 mmol/L (136-145)
[2022-01-18 11:51] LABS: Troponin(5th) Baseline 170 ng/L (0-10)
[2022-01-18 12:03] LABS: Glucose Point of Care 92 mg/dL (70-110)
--- NOTE | 2022-01-18 12:10 | PC.NURSE ---
Dr. Jimenez gave this nurse verbal orders to increase nitro drip from 20mcg to 40mcg
--- NOTE | 2022-01-18 12:16 | PC.NURSE ---
PT REPORTS CHEST PAIN OF 6 AT THIS TIME
--- NOTE | 2022-01-18 12:26 | USCV_ITS ---
Alesia Shaw Age: 61 Gender: F : 1960 Exam Date: 01/18/2022 12:39 Ordering Phys: Deepak Jimenez MD Technologist: Lyn Taylor Exam Location: [facility] Indication: eval for dissection BP: 141 / 98 HR: 93 Rhythm: Atrial fibrillation Technical Quality: Adequate MEASUREMENTS (Male / Female) Normal Values 2D ECHO LV Diastolic Diameter PLAX 5.1 cm 4.2 - 5.9 / 3.9 - 5.3 cm LV Systolic Diameter PLAX 4.0 cm IVS Diastolic Thickness 1.5 cm 0.6 - 1.0 / 0.6 - 0.9 cm IVS Systolic Thickness 2.0 cm LVPW Diastolic Thickness 1.8 cm 0.6 - 1.0 / 0.6 - 0.9 cm LVPW Systolic Thickness 2.4 cm LVOT Diameter 2.0 cm LV Ejection Fraction 2D Teich 42.6 % LV Ejection Fraction MOD 2C 39.3 % LV Ejection Fraction 2C AL 39.3 % LA Diameter 3.7 cm LA Width 3.4 cm LA Height 4.8 cm RA Width 4.1 cm RA Height 4.7 cm Aorta at Sinotubular Diameter 2.5 cm M-MODE Aortic Annulus Diameter 2.5 cm LA Ao Ratio MM 1.3 MV E Point Septal Separation 1.1 cm DOPPLER AV Peak Velocity 130.0 cm/s LVOT Peak Velocity 67.0 cm/s AV Area Cont Eq vti 2.0 cm squared AV Area Cont Eq pk 1.7 cm squared MV Peak Velocity 157.0 cm/s MV Area PHT 5.1 cm squared MV E' Velocity 60.5 cm/s Mitral E to MV E' Ratio 11.6 Mitral E to LV E' Lateral Ratio 11.7 Mitral E to LV E' Septal Ratio 11.6 TR Peak Velocity 318.0 cm/s TR Peak Gradient 40.4 mmHg TR Mean Velocity 234.6 cm/s TR Mean Gradient 24.6 mmHg TR Velocity Time Integral 97.7 cm TV Peak E Velocity 87.0 cm/s Right Atrial Pressure 15.0 mmHg Pulmonary Artery Systolic Pressu 55.4 mmHg PV Peak Velocity 85.0 cm/s RV Acceleration Time 0.1 s RV Ejection Time 0.3 s RV AcT/ET 0.3 FINDINGS Left Ventricle Diffuse hypokinesia of the left ventricle with ejection fraction of 40%. Normal LV size. Right Ventricle Mildly increased right ventricular size. Normal right ventricular systolic function. Right Atrium Mildly increased right atrial size. Left Atrium Mildly increased left atrial size. Mitral Valve Thickened mitral valve. Aortic Valve No gross abnormalities noted Tricuspid Valve [id number]-ag-hlnnugpe tricuspid valve regurgitation. Moderate pulmonary hypertension with estimated pulmonary artery peak systolic pressure of 55 mmHg Pulmonic Valve Trace pulmonary valve regurgitation. Pericardium No pericardial effusion. Aorta Normal aortic annulus size. CONCLUSIONS Diffuse hypokinesia of the left ventricle with ejection fraction of 40%. Normal left ventricular size . Mild biatrial enlargement. [id number] tricuspid valve regurgitation. Moderate pulmonary hypertension with estimated pulmonary artery peak systolic pressure of 55 mmHg. Trace pulmonary valve regurgitation. There is no pericardial effusion. There are no intracardiac masses. Compared to the study from 09/28/2021, the LV ejection fraction appears to have improved. No evidence of aortic dissection. Consider CTA of the chest, if clinically indicated Dr Elizabeth Gaines MD FACC (Electronically Signed) Final Date: 18 January 2022 17:06 S
--- NOTE | 2022-01-18 12:31 | PC.NURSE ---
PT PLACED ON CONTINUOUS NIBP, SPO2, AND CM
[2022-01-18] MEDS: morphine 4 mg/mL SDV 1 mL IVP (12:36)
--- NOTE | 2022-01-18 13:17 | ECG_ITS ---
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 Measurements Intervals [place] Rate: 104 P: -15 CT: 274 QRS: -45 QRSD: 143 T: 92 QT: 406 QTc: 536 Interpretive Statements SINUS TACHYCARDIA WITH FIRST DEGREE AV BLOCK LEFT ATRIAL ENLARGEMENT [-0.15mV P-WAVE IN V1/V2] LEFT AXIS DEVIATION [QRS AXIS < -30] INTRAVENTRICULAR CONDUCTION DELAY [130+ ms QRS DURATION] Compared to ECG 01/18/2022 11:31:48 Intraventricular conduction delay now present Left bundle-branch block no longer present Electronically Signed On 01-18-2022 17:38:01 SEAT MENDER by Fly Long M.D. [id number]
--- NOTE | 2022-01-18 13:18 | PC.NURSE ---
pt states chest pain is a 5 on scale of 1 to 10. Nitro not titrated at this time
--- NOTE | 2022-01-18 13:38 | CT_ITS ---
WS: [id number] CTA CHEST, ABDOMEN AND PELVIS. HISTORY: Possible dissection, back pain. TECHNIQUE: Pre and postcontrast imaging through the chest. CT angiogram is performed through the ches t. Additional imaging is performed through the abdomen and pelvis with IV contrast. Sagittal and reyes nal reformats have been submitted. MIP imaging also reviewed. All CT scans at [facility] use at least one of these dose optimization techniques: automated exposure control; mA and/or kV adjustme nt per patient size (includes targeted exams where dose is matched to clinical indication); or iterat nery reconstruction. Contrast: Visipaque 95 cc IV. DLP: 2911.47 mGy.cm COMPARISON: 11/24/2021 Chest CTA: Opacification of the thoracic aorta. No aneurysmal dilatation. No dissection is evident. N ormal size thoracic aorta. No luminal flap extending into the proximal great vessels. Moderate calcif ied plaque at the proximal LEFT subclavian artery. Ascending thoracic aorta is normal caliber. Pulmon monico artery size is slightly enlarged. Contrast opacification in adequate to exclude embolism. Small b ilateral pleural effusions with bilateral mild groundglass attenuation and subsegmental atelectasis a ssociated with the effusions. No pneumothorax. Mediastinal and hilar lymphadenopathy. Lymphadenopathy measures 14 to 15 mm. There are numerous small lymph nodes along the anterior mediastinum and in the hilar regions. Diffuse soft tissue anasarca. Abdomen CTA: Normal size abdominal aorta with no dissection to the bifurcation. Heavy calcification t hroughout the aorta and the mesenteric arteries. There is heavy calcified plaque extending into the c eliac axis and mesenteric arteries. Moderate atherosclerotic plaque within the renal arteries. Inferi or mesenteric artery is heavily calcified. Mild hepatic congestion. Early enhancement imaging through the liver and spleen are negative. Atrophi ed pancreas. No adrenal mass. Gallbladder is within. Soft tissue anasarca. Calcifications are noted e xtensively throughout the renal arteries. There is perinephric stranding. Retroperitoneal mesenteric moderately enlarged lymph nodes. No GI tract obstruction. No free air or evidence for ischemia. Pelvic CTA: Heavy calcification within the iliac arteries. No dissection or aneurysm. Free fluid in t he pelvis. Soft tissue anasarca. No distended urinary bladder. Advanced degenerative changes throughout the thoracic and lumbar spines. Osteophyte extends into the lumbar canal from the L4-5 vertebral bodies encroaching and deforming the ventral thecal sac. Central and bilateral foraminal stenosis at the L4-5 level. There are additional areas of encroachment upon the foramina and central canal throughout the lumbar region. CT/CT angio chest abdomen pelvis IMPRESSION: 1. No aortic dissection or aneurysm. 2. Extensive severe atherosclerotic disease throughout the arteries in the jc st, abdomen and pelvis. 3. Diffuse soft tissue anasarca. 4. Small amount of ascites. 5. Advanced degenerative changes in thoracic and lumbar spine with osteophyte encroaching upon the thecal sac at the L4-5 level and foraminal stenosis. 6. Small bilateral pleural effusions. 7. Indeterminate mediastinal, hilar, retroperitoneal and mesenteric lymphadeno leroy. May be reactive. 8. Cardiomegaly.
[2022-01-18] MEDS: labetalol 5 mg/mL SDV 20mL 20 MG IVP (13:43)
[2022-01-18] MEDS: HYDROmorphone 1 mg/mL INJ 1 mL 0.5 MG IVP ×2 (13:44→14:50)
[2022-01-18] MEDS: diphenhydrAMINE 50 mg/mL SDV 1mL IVP (13:45)
--- NOTE | 2022-01-18 13:52 | PC.NURSE ---
PT STATES PAIN IS 8. NITRO DRIP TITRATED TO 60
[2022-01-18] MEDS: iodixanol 320 mg/mL 100mL Btl IV (14:03)
[2022-01-18 14:04] LABS: Troponin 5 2HR 166.7 ng/L (0-10); Troponin 5 2HR Delta -3.3 ABS# (0-10)
--- NOTE | 2022-01-18 14:55 | PC.NURSE ---
WHILE AT [facility]WAY PT IS IN NAD. PT IS RESTING QUIETLY SUPINE IN BED WITH EYES CLOSED. PT HAS GOOD CHEST RISE AND FALL.
[2022-01-18] MEDS: ondansetron 2 mg/ML SDV 2 mL 4 MG IVP (15:45)
--- NOTE | 2022-01-18 16:01 | PM.HP ---
Providers/Chief Complaint Admitting Physician: Stacey Nunes MD Primary Care Provider: Karen Bear MD Chief Complaint: CHEST PAIN History of Present Illness Alesia Shaw is a 61 year old female with a complex past medical history who presents to the emergency room with chief complaint of chest pain. She does have known coronary artery disease. She had 2 LAD stents and a first diagonal stent back in June of last year that involve the bifurcation. Dr. Long performed the procedure but she follows with Dr. Gamble outpatient. She had ischemic cardiomyopathy with ejection fraction down to 15% around the time of her stent placement in 06/2021 (this was down from 65% in 2019). Since that time she has had challenges managing her overall volume. She is a known chronic kidney disease patient on hemodialysis Mondays, Wednesdays and Fridays. She has significant comorbid conditions as outlined below. She reports increasing difficulty with not feeling well after dialysis which she relates to attempts to pull too much fluid. Yesterday she had dialysis for about 3 hours and felt like she had to stop. She does not had any fever but has not done well since dialysis yesterday. This morning she woke up and had severe left-sided chest pain that she described as sharp in nature and radiated up into the left side of her neck and left shoulder area. It was associated with nausea and vomiting. It sounds like she may have been short of breath. She describes some palpitations that are most prominent when she tries to lay down feeling like her heart is beating very fast. She took several nitroglycerin today at home without any improvement in the chest discomfort. It is not clear what her blood pressure was. Nurse came out to the house and had her take additional nitroglycerin. The chest pain continued and ultimately EMS was called. Pain was 10 out of 10. On arrival EMS describe patient's blood pressure being 172/115. Heart rate was 106. She received aspirin, additional sublingual nitroglycerin, fentanyl as well as some Zofran. EKG demonstrated left bundle branch block per EMS report. Pain remained 10 out of 10 here. She received additional aspirin, more sublingual nitroglycerin ultimately transitioning to nitroglycerin drip, morphine, 2 doses of Dilaudid. She was also given some labetalol. All blood pressures documented in the emergency room thus far have been 150s/90s. She received Solu-Medrol and Benadryl prior to CTA of the chest abdomen and pelvis due to a history of contrast allergy. This study showed extensive atherosclerosis, small bilateral pleural effusions which is an improvement from prior, nonspecific hilar adenopathy, degenerative changes but no evidence of acute process, including no evidence of dissection. Initial troponin was elevated at 170 which is lower than prior values documented here. 2-hour troponin did not show increase. Twelve-lead EKG with nonspecific changes that are similar to prior. Pain today is more severe than the pain she experienced prior to having to have stents placed though similar otherwise. At the time of my evaluation she is finally chest pain-free after the various medications that have been administered in the emergency room. With her comorbid issues and presentation she is being placed into observation for further evaluation and treatment as indicated. Review of Systems Const: Reports: change in appetite, change in weight (Challenges with dry weight at dialysis lately), fatigue and malaise; Denies: fever(s) or chills Eyes: Denies: blurry vision ENMT: Reports: dry mouth; Denies: throat pain or nasal congestion Card: Reports: chest pain, palpitations, irregular heart rhythm, edema (Right lower extremity, chronic related to lymphedema, not acutely worse ), dyspnea on exertion and orthopnea; Denies: lightheadedness Resp: Reports: dyspnea and non-productive cough; Denies: pain on inspiration or hemoptysis GI: Reports: abdominal pain (Lower abdominal wall discomfort; she attributes to anticoagulant injections), nausea and vomiting; Denies: diarrhea, constipation, hematochezia or melena : Reports: other (Still makes urine daily) Musc: Reports: back pain and extremity pain Skin/Breast: Reports: rash (Right lower extremity from recent cellulitis) and non-healing lesions (Right heel, managed by home health and PCP (not C anymore)); Denies: pruritus Neuro: Reports: numbness in extremities (Neuropathy); Denies: dizziness, Slurred speech present or difficulty communicating thoughts Psych: Reports: anxiety Jimmy/Lymph: Denies: easy bruising or easy bleeding Medications/Allergies Home Medications Medication Instructions Recorded Confirmed Last Taken Type Stump Box Puller #1 ea 01/12/21 01/04/22 07/20/21 Rx carvedilol 25 mg tablet (Coreg) 25 mg PO BID 05/19/21 01/04/2211/23/22 History albuterol sulfate 90 mcg/actuation 2 puff INHALATION Q4H PRN 06/13/21 01/18/22 07/20/21 History aerosol inhaler (ProAir HFA) vit B,C-folic ac 800 mcg-zinc 12.5 1 tab PO DAILY 06/13/21 01/04/22 11/23/21 History mg-selen-D3 2,000 unit-vit E tablet (RenaPlex-D) aspirin 81 mg chewable tablet 81 mg PO DAILY 90 Days #90 tab 06/22/21 01/18/22 01/17/22 Rx (Children's Aspirin) clopidogrel 75 mg tablet 75 mg PO DAILY 90 Days #90 tab 06/22/21 01/04/22 11/23/21 Rx nitroglycerin 0.4 mg sublingual 0.4 mg SUBLINGUAL Q5M PRN 30 Days 06/22/21 01/04/22 07/20/21 Rx tablet #30 tab nystatin 100,000 unit/gram topical 1 applic TOPICAL BID #30 g 06/29/21 01/04/22 07/20/21 Rx cream furosemide 80 mg tablet 120 mg PO 0800,1400 #270 tab 09/14/21 01/04/22 11/23/21 Rx levothyroxine 150 mcg tablet 150 mcg PO DAILY #30 tab 10/14/21 01/04/22 11/23/21 Rx (Synthroid) isosorbide mononitrate 120 mg 120 mg PO DAILY #30 tab 11/09/21 01/04/22 11/23/21 Rx tablet,extended release 24 hr doxazosin 2 mg tablet (Cardura) 8 mg PO BID tab 11/16/21 01/04/22 11/23/21 History psyllium husk 0.4 gram capsule 0.4 g PO DAILY 11/23/21 01/04/22 11/23/21 History (Metamucil) ondansetron HCl 4 mg tablet 8 mg PO Q8H PRN #10 tab 11/28/21 01/04/22 Unknown Rx promethazine-DM 6.25 mg-15 mg/5 mL 5 ml PO Q6H PRN #160 ml 12/10/21 01/04/22 Unknown Rx oral syrup calcium carbonate 470 mg calcium 3,531 mg PO . TID AND WITH MEALS 12/25/21 01/04/22 Unknown History (1,177 mg) chewable tablet (Tums Ultra) sevelamer carbonate 800 mg tablet 800 mg PO DAILY 12/25/21 01/04/22 Unknown History (Renvela) gentamicin 0.1 % topical cream 1 applic TOPICAL TID #30 g 01/04/22 01/04/22 Unknown Rx hydralazine 50 mg tablet 50 mg PO BID 01/18/22 01/18/22 01/17/22 History Allergies Allergy/AdvReac Type Severity Reaction Status Date / Time Iodinated Contrast Media Allergy ALGY-Hives Verified 01/04/22 16:05 PFSH Acute PFSH: Medical History (Updated 01/18/22 @ 17:15 by Stacey Nunes MD) Anemia Chronic kidney disease and blood loss, has previously required transfusion Aortic valve endocarditis (~04/2020) CAD (coronary artery disease) Charcot's joint of foot in type 2 diabetes mellitus Congestive heart failure systolic Diabetes Diabetes mellitus type 2, not on medications, HbA1c 10/2021 5.2 Diabetic ulcer of left foot Diabetic ulcer of right foot Difficult intravenous access Epidural abscess (~2017) ESRD (end stage renal disease) previously on peritoneal dialysis currently on hemodialysis History of colon polyps History of MRSA infection spinal abscess 2017 Hyperlipidemia Hypertension Hypothyroidism Ischemic cardiomyopathy EF 05/2020 65% >> 06/2021 15%, 09/2021 25% 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 Severe proximal to mid LAD stenosis. Severe ostial diagonal artery stenosis. 2. Successful revascularization of the LAD with orbital arthrectomy and PCI with JD x 2 including bifurcation stenting of mid LAD and diagonal artery using mini-crush technique (2 stents placed in LAD and 1 in diagonal artery). History of cholecystectomy History of colonoscopy with polypectomy 2017 History of left below knee amputation History of lumbar surgery Due to epidural abscess in March 2018 Peritoneal dialysis catheter in place removal 05/20/21 S/P hemodialysis catheter insertion multiple Family History Mother Cancer Uterine and breast cancer Father Diabetes Other CAD (coronary artery disease) Social History (Updated 01/18/22 @ 16:44 by Stacey Nunes MD) Smoking and tobacco status: never smoked Alcohol intake: current Alcohol intake frequency: holidays/special occasions only Substance/Drug Use: never Marital status: Vitals/I&O/Wt Last Vital Signs Pulse 71 01/18/22 15:36 Resp 17 01/18/22 15:36 BP 157/96 01/18/22 15:36 Pulse Ox 97 01/18/22 15:36 01/18/22 01/18/22 01/18/22 06:59 14:59 22:59 Intake Total 26.45 / 26.45 Balance 26.45 / 26.45 Weight last 48 hrs Weight 101.605 kg Physical Exam Narrative: Constitutional: Asleep, easily arousable, chronic ill appearance, currently chest pain-free HEENT: Normocephalic, atraumatic, extraocular movements are intact, nasopharynx is clear, oropharynx with dry mucous membranes, lips dry Neck: Supple Respiratory: Clear to auscultation anteriorly, no retractions, no accessory muscle use otherwise, decreased at bases posteriorly, no wheezes or rhonchi noted Cardiovascular: Regular rhythm, regular rate, no murmurs or rubs, 1+ pulses at both wrists, capillary refill intact right foot but unable to palpate pulses Abdomen: Soft, rotund, general soft tissue fullness noted with some area of prominence noted in the right lower quadrant but not tender, warm or red, bowel sounds are positive Extremities: Left BKA, right lower extremity diffusely edematous, Charcot joint noted Skin: Stasis changes to right lower extremity with some scaling of skin, dry right lower extremity, has approximately 4 to 5 cm diameter wound on the right heel with exposed muscle layer, some yellow slough on surrounding edges, no odor, no extension of erythema. Right leg from foot to knee is not warm to touch. No areas of acute fluid drainage appreciated. Has various iatrogenic minor bruises. Skin is pale Neuro: Speech is clear, face symmetric, moves all extremities Psych: Normal affect, expresses frustration with the fact that she is not feeling better Data : 01/18/22 11:20 01/18/22 11:20 Other Labs: Radiology Impressions Chest X-Ray 01/18/22 11:17 IMPRESSION: Stable pleural effusions and basilar atelectasis. Chest/Abdomen/Pelvis CTA 01/18/22 13:38 IMPRESSION: 1. No aortic dissection or aneurysm. 2. Extensive severe atherosclerotic disease throughout the arteries in the chest, abdomen and pelvis. 3. Diffuse soft tissue anasarca. 4. Small amount of ascites. 5. Advanced degenerative changes in thoracic and lumbar spine with osteophyte encroaching upon the thecal sac at the L4-5 level and foraminal stenosis. 6. Small bilateral pleural effusions. 7. Indeterminate mediastinal, hilar, retroperitoneal and mesenteric lymphadenopathy. May be reactive. 8. Cardiomegaly. Laboratory Results WBC 4.6 10^3/uL (4.0-10.0) 01/18/22 11:20 RBC 2.77 10^6/uL (4.1-5.3) L 01/18/22 11:20 Hgb 9.2 g/dL (11.5-15.3) L 01/18/22 11:20 Hct 28.7 % (37.0-47.0) L 01/18/22 11:20 MCV 103.6 fl (81-99) H 01/18/22 11:20 MCH 33.2 pg (28.0-34.0) 01/18/22 11:20 MCHC 32.1 g/dL (30.0-36.0) 01/18/22 11:20 RDW 16.1 % (12.1-15.1) H 01/18/22 11:20 Plt Count 170 10^3/cmm (130-400) 01/18/22 11:20 MPV 10.3 fL (7.4-10.4) 01/18/22 11:20 Neut % (Auto) 68.9 % 01/18/22 11:20 Lymph % (Auto) 12.6 % 01/18/22 11:20 [place] % (Auto) 11.7 % 01/18/22 11:20 Eos % (Auto) 5.0 % 01/18/22 11:20 Baso % (Auto) 1.1 % 01/18/22 11:20 Neut # (Auto) 3.17 10^3/uL (1.8-7.7) 01/18/22 11:20 Lymph # (Auto) 0.6 10^3/uL (0.8-4.8) L 01/18/22 11:20 [place] # (Auto) 0.5 10^3/uL (0.2-0.9) 01/18/22 11:20 Eos # (Auto) 0.2 10^3/uL (0.0-0.8) 01/18/22 11:20 Baso # (Auto) 0.1 10^3/uL (0.0-0.1) 01/18/22 11:20 Nucleated RBC % (auto) 0 % 01/18/22 11:20 Nucleated RBCs # 0.0 /100WBC 01/18/22 11:20 Sodium 134 mmol/L (136-145) L 01/18/22 11:20 Potassium 5.0 mmol/L (3.5-5.1) 01/18/22 11:20 Chloride 93 mmol/L (98-107) L 01/18/22 11:20 Carbon Dioxide 28 mmol/L (22-29) 01/18/22 11:20 Anion Gap 18.0 (5-19) 01/18/22 11:20 BUN 24 mg/dL (6-20) H 01/18/22 11:20 Creatinine 4.4 mg/dL (0.5-0.9) H 01/18/22 11:20 GFR Calculation 10.3 mL/min (90-130) L 01/18/22 11:20 Glucose 97 mg/dL (65-115) 01/18/22 11:20 POC Glucose 92 mg/dL (70-110) 01/18/22 11:18 Calculated Osmolality 282 mOsm/kg (285-295) L 01/18/22 11:20 Calcium 9.1 mg/dL (8.5-10.5) 01/18/22 11:20 Troponin T Baseline 170 ng/L (0-10) H* 01/18/22 11:20 Troponin T 120 Minute 166.7 ng/L (0-10) H 01/18/22 13:23 Delta Troponin T -3.3 ABS# (0-10) L 01/18/22 13:23 C-Reactive Protein 5.2 mg/L (0.0-4.9) H 01/18/22 11:20 A&P Assessment and plan (1) Chest pain: Substernal, severe. Seems atypical for cardiac source of pain although in the right location. Reproducible at the time of echocardiogram study by patient description, suggesting a musculoskeletal type component however not noted during my exam. Presently chest pain-free however on nitroglycerin and has had several doses of pain medication. She did have significant elevation in blood pressures initially that could be another contributing factor. Status: Acute Qualifiers: Chest pain type: precordial pain Qualified Code(s): R07.2 - Precordial pain (2) CAD (coronary artery disease): Known coronary artery disease with previous LAD and first diagonal stents in June 2021, on aspirin and Plavix and reports compliance with medications Status: Chronic Qualifiers: Coronary Disease-Associated Artery/Lesion type: [place] artery [place] vs. transplanted heart: [place] heart Associated angina: without angina Qualified Code(s): I25.10 - Atherosclerotic heart disease of [place] coronary artery without angina pectoris (3) Ischemic cardiomyopathy: Last ejection fraction in September 2021 was 25%, an improvement from values in June 2021. Patient reports challenges with overall fluid balance lately, especially in relation to hemodialysis, reporting that she often feels like too much fluid is removed and that this is contributing some to malaise and other symptoms described. Status: Chronic (4) Hypertension: Chronically difficult to control on multiple medications Status: Chronic Qualifiers: Hypertension type: renovascular hypertension Qualified Code(s): I15.0 - Renovascular hypertension (5) ESRD (end stage renal disease): Wednesdays and Fridays, follows with Dr. Lora outpatient Status: Chronic (6) Non-pressure chronic ulcer of other part of right foot with fat layer exposed: Managed by PCP and home health care. Has chosen not to continue care at wound care clinic. Status: Chronic (7) Pleural effusion, bilateral: Has been a recurrent challenge lately but today with significant improvement and only small bilateral pleural effusions Status: Chronic (8) History of staph infection: MRSA and MSSA, no evidence of current acute infection Status: Chronic (9) Lymphadenopathy: Including mediastinal, hilar, mesenteric and retroperitoneal, generally around 14 to 15 mm, indeterminate significance currently Status: Acute (10) Difficult intravenous access: Status: Chronic Plan Observation admission I have spoken with Dr. Gamble, her surgery attendant, who has graciously agreed to see her in consultation Follow-up pending echocardiogram Continue serial cardiac enzymes Continue home aspirin, Plavix and carvedilol Continue other cardiac home medications including hydralazine, doxazosin, furosemide, isosorbide For the time being we will continue nitroglycerin drip with plan to transition back to oral nitrates tomorrow as able Telemetry monitoring Pain control for chest discomfort otherwise Fluid restriction Check BNP Nephrology consultation for dialysis as needed Wound care as per usual regimen at home Monitor overall volume status Continue home levothyroxine for hypothyroidism Continue home Renvela Check procalcitonin and CRP as do have priors for comparison Subcu heparin for DVT prophylaxis Supportive care otherwise Findings, concerns and plans discussed with patient and and both were given an opportunity to ask questions Anticipate discharge home with outpatient follow-up once medically stable Full code Attestations Medical Necessity Statement*: Currently anticipate a stay less than two midnights in a patient with complex medical problems presenting with chest pain. She has known coronary artery disease and ischemic cardiomyopathy along with hypertension that can be difficult to control. Pain is really somewhat atypical as described and sounds more musculoskeletal but has responded to initiation of nitroglycerin drip along with pain medications in the emergency room. She has chronic troponin elevation that is better than usual right now. She is at high risk of significant clinical decline if acute issues are missed so we will place her into observation to evaluate further for illness necessitating continued inpatient care. Coding Level of Care Code Acute Facilities Maintenance Supervisor for Gregorio Thompson Diagnoses Chest pain R07.2 Chest pain type: precordial pain CAD (coronary artery disease) I25.10 Coronary Disease-Associated Artery/Lesion type: [place] artery [place] vs. transplanted heart: [place] heart Associated angina: without angina ESRD (end stage renal disease) N18.6 Ischemic cardiomyopathy I25.5 Hypertension I15.0 Hypertension type: renovascular hypertension Non-pressure chronic ulcer of other part of right foot with fat layer exposed L97.512 Pleural effusion, bilateral J90 Difficult intravenous access Z78.9 History of staph infection Z86.19 Lymphadenopathy R59.1
[2022-01-18 16:24] LABS: C Reactive Protein 5.2 mg/L (0.0-4.9)
--- NOTE | 2022-01-18 16:51 | PC.NURSE ---
Patient sitting up in bed. patient reports no pain at this time. nitro drip currently at 60mcg
--- NOTE | 2022-01-18 16:58 | PC.NURSE ---
physician notified of pt's pain scale score of 0. Physician gave this nurse verbal orders to continue nitro drip per blood pressure and chest pain protocol. nitro currently running at 60mcg
--- NOTE | 2022-01-18 17:17 | ECG_ITS ---
[facility] Test Date: 2022-01-18 Pat Name: Alesia Shaw Department: Room: 112 Gender: Female Proposal Engineer: : [id number] Requested By: Deepak Jimenez Order Number: [id number] Reading MD: Fly Long M.D. Measurements Intervals [place] Rate: 79 P: 55 AR: 224 QRS: -36 QRSD: 142 T: 120 QT: 453 QTc: 521 Interpretive Statements SINUS RHYTHM WITH FIRST DEGREE AV BLOCK LEFT ATRIAL ENLARGEMENT [-0.15mV P-WAVE IN V1/V2] LEFT AXIS DEVIATION [QRS AXIS < -30] INTRAVENTRICULAR CONDUCTION DELAY [130+ ms QRS DURATION] Compared to ECG 01/18/2022 12:26:11 Sinus tachycardia no longer present Electronically Signed On 01-18-2022 20:22:23 FASHION ARTIST by Fly Long M.D. [email or web address]
[2022-01-18 17:30] LABS: Troponin 5 6HR 185.1 ng/L (0-10)
[2022-01-18 17:31] LABS: Troponin 5 6HR Delta 15.1 ng/L (0-12)
--- NOTE | 2022-01-18 17:57 | P.CONIM_ITS ---
Providers/Reason For Consult Consulting Physician/Specialty*: Dr. Gamble, cardiology Reason for Consult*: Chest pain, history of CAD Attending Physician: Stacey Nunes MD Primary Care Provider: Karen Bear MD History of Present Illness History of Present Illness Alesia Shaw is a 61 year old female with a history of coronary disease s/p multiple stents ( 06/2021: LAD with orbital arthrectomy and PCI with JD x 2 including bifurcation stenting of mid LAD and diagonal artery using mini-crush technique (2 stents placed in LAD and 1 in diagonal artery), ischemic cardiomyopathy (last LVEF of 25%, 09/2021), end-stage renal disease on hemodialysis via tunneled catheter x ~1 yr, hypertension, type 2 diabetes, 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 She has a left sided pleural effusion and has undergone thoracentesis on multiple occassions. She was admitted 11/24 for fever and underwent left sided thoracostomy tube placement due to concern for empyema with removal of 1500 ml of bloody fluid. Patient underwent consultation with Dr Camacho to discuss possible decortication and was consideredn a high surgical risk. She was disc harged on 30 December after being managed for lower extremity cellulitis and sepsis. She was at dialysis yesterday and after about 3 hours she felt like she had to stop. No fever and yesterday she started having sharp left lateral chest pain along with pain in her left shoulder and left arm. The pain was rated as 10 on 10 in intensity and she took multiple nitroglycerin at home. She had a home nurse at home as well. She did not take her blood pressure medications and when EMS arrived her blood pressure was 132/115 mmHg. She received nitroglycerin fentanyl Zofran aspirin and presented to ER for further evaluation. She was started on nitroglycerin drip and at the time of evaluation remains chest pain- free. She continues to complain of nausea on and off. Review of Systems Const: Reports: change in appetite, change in weight (Challenges with dry weight at dialysis lately), fatigue and malaise; Denies: fever(s) or chills Eyes: Denies: blurry vision ENMT: Reports: dry mouth; Denies: throat pain or nasal congestion Card: Reports: chest pain, palpitations, irregular heart rhythm, edema (Right lower extremity, chronic related to lymphedema, not acutely worse ), dyspnea on exertion and orthopnea; Denies: lightheadedness Resp: Reports: dyspnea and non-productive cough; Denies: pain on inspiration or hemoptysis GI: Reports: abdominal pain (Lower abdominal wall discomfort; she attributes to anticoagulant injections), nausea and vomiting; Denies: diarrhea, constipation, hematochezia or melena : Reports: other (Still makes urine daily) Musc: Reports: back pain and extremity pain Skin/Breast: Reports: rash (Right lower extremity from recent cellulitis) and non-healing lesions (Right heel, managed by home health and PCP (not C anymore)); Denies: pruritus Neuro: Reports: numbness in extremities (Neuropathy); Denies: dizziness, Slurred speech present or difficulty communicating thoughts Psych: Reports: anxiety Jimmy/Lymph: Denies: easy bruising or easy bleeding Medications/Allergies Home Medications Medication Instructions Recorded Confirmed Last Taken Type Stump Chick Sexer #1 ea 01/12/21 01/18/22 07/20/21 Rx carvedilol 25 mg tablet (Coreg) 25 mg PO BID 05/19/21 01/18/22 01/17/22 History albuterol sulfate 90 mcg/actuation 2 puff INHALATION Q4H PRN 06/13/21 01/18/22 07/20/21 History aerosol inhaler (ProAir HFA) vit B,C-folic ac 800 mcg-zinc 12.5 1 tab PO DAILY 06/13/21 01/18/22 01/17/22 History mg-selen-D3 2,000 unit-vit E tablet (RenaPlex-D) aspirin 81 mg chewable tablet 81 mg PO DAILY 90 Days #90 tab 06/22/21 01/18/22 01/17/22 Rx (Children's Aspirin) clopidogrel 75 mg tablet 75 mg PO DAILY 90 Days #90 tab 06/22/21 01/18/22 01/17/22 Rx nitroglycerin 0.4 mg sublingual 0.4 mg SUBLINGUAL Q5M PRN 30 Days 06/22/21 01/18/22 07/20/21 Rx tablet #30 tab nystatin 100,000 unit/gram topical 1 applic TOPICAL BID #30 g 08/01/18/22 07/20/21 Rx cream furosemide 80 mg tablet 120 mg PO 0800,1400 #270 tab 09/14/21 01/18/22 01/17/22 Rx levothyroxine 150 mcg tablet 150 mcg PO DAILY #30 tab 10/14/21 01/18/22 01/17/22 Rx (Synthroid) isosorbide mononitrate 120 mg 120 mg PO DAILY #30 tab 11/09/21 01/18/22 01/17/22 Rx tablet,extended release 24 hr doxazosin 2 mg tablet (Cardura) 8 mg PO BID tab 11/16/21 01/18/22 01/17/22 History psyllium husk 0.4 gram capsule 0.4 g PO DAILY 11/23/21 01/18/22 01/17/22 History (Metamucil) ondansetron HCl 4 mg tablet 8 mg PO Q8H PRN #10 tab 11/28/21 01/18/22 Unknown Rx promethazine-DM 6.25 mg-15 mg/5 mL 5 ml PO Q6H PRN #160 ml 12/10/21 01/18/22 Unknown Rx oral syrup calcium carbonate 470 mg calcium 3,531 mg PO . TID AND WITH MEALS 12/25/21 01/18/22 01/17/22 History (1,177 mg) chewable tablet (Tums Ultra) sevelamer carbonate 800 mg tablet 800 mg PO DAILY 12/25/21 01/18/22 01/17/22 History (Renvela) gentamicin 0.1 % topical cream 1 applic TOPICAL TID #30 g 01/04/22 01/18/22 01/18/22 Rx hydralazine 50 mg tablet 50 mg PO BID 01/18/22 01/18/22 01/17/22 History Allergies Allergy/AdvReac Type Severity Reaction Status Date / Time Iodinated Contrast Media Allergy ALGY-Hives Verified 01/04/22 16:05 Current Medications Generic Name Dose Route Start Last Admin Trade Name Freq PRN Reason Stop Dose Admin Nitroglycerin/Dextrose 50 mg in 250 mls @ 0 mls/hr 01/18/22 11:30 01/18/22 13:50 Nitroglycerin Drip IV 60 mcg/min .Q0M SHELBY 18 mls/hr Titration Protocol Per Protocol Nitroglycerin 0.4 mg 03/08/22 11:26 01/18/22 11:31 Nitroglycerin 0.4 Mg Sublingual Tablet SUBLINGUAL 0.4 mg Q5M PRN Administration CHEST PAIN PFSH Acute PFSH: Medical History Anemia Chronic kidney disease and blood loss, has previously required transfusion Aortic valve endocarditis (~04/2020) CAD (coronary artery disease) Charcot's joint of foot in type 2 diabetes mellitus Congestive heart failure systolic Diabetes Diabetes mellitus type 2, not on medications, HbA1c 10/2021 5.2 Diabetic ulcer of left foot Diabetic ulcer of right foot Difficult intravenous access Epidural abscess (~2017) ESRD (end stage renal disease) previously on peritoneal dialysis currently on hemodialysis History of colon polyps History of MRSA infection spinal abscess 2017 Hyperlipidemia Hypertension Hypothyroidism Ischemic cardiomyopathy EF 05/2020 65% >> 06/2021 15%, 09/2021 25% 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 Severe proximal to mid LAD stenosis. Severe ostial diagonal artery stenosis. 2. Successful revascularization of the LAD with orbital arthrectomy and PCI with JD x 2 including bifurcation stenting of mid LAD and diagonal artery using mini-crush technique (2 stents placed in LAD and 1 in diagonal artery). History of cholecystectomy History of colonoscopy with polypectomy 2017 History of left below knee amputation History of lumbar surgery Due to epidural abscess in March 2018 Peritoneal dialysis catheter in place removal 05/20/21 S/P hemodialysis catheter insertion multiple Family History Mother Cancer Uterine and breast cancer Father Diabetes Other CAD (coronary artery disease) Social History Smoking and tobacco status: never smoked Alcohol intake: current Alcohol intake frequency: holidays/special occasions only Substance/Drug Use: never Marital status: Vitals/I&O/Wt Last Vital Signs Pulse 79 01/18/22 17:45 Resp 20 H 01/18/22 17:45 BP 157/96 01/18/22 17:45 Pulse Ox 97 01/18/22 17:45 01/18/22 01/18/22 01/18/22 06:59 14:59 22:59 Intake Total 26.45 / 26.45 Balance 26.45 / 26.45 Weight last 48 hrs Weight 224 lb Physical Exam Narrative: GENERAL: Averagely built and averagely nourished in no acute distress HEENT: Extraocular movement intact. Mild pallor, no icterus. NECK: No carotid bruit. CARDIOVASCULAR SYSTEM: S1-S2 regular. PMI displaced.? grade 3/6 SM in LLSB. RESPIRATORY SYSTEM: Absent breath sounds? mid to basal posterior lung martin on left with absent breath sounds.? No wheezes or rhonchi heard. ABDOMEN: Soft, nontender and nondistended. Normal bowel sounds present. EXTREMITIES: No cyanosis or 1+ edema. Left below-knee amputation DERRICK OPERATOR: Patient is alert oriented ?3. No focal neurological deficits. Data : 01/19/22 04:28 01/19/22 04:28 Other data: 09/28/21 Echo ?CONCLUSIONS ?1. This is technically very difficult and limited study. ?2.? Mildly dilated left ventricular cavity size.? Moderate ?concentric left ventricle hypertrophy.? Severely decreased left ?ventricle systolic function.? Left ventricular ejection fraction ?estimated at 25% Global hypokinesis with regional variation ?(more pronounced in anterior and anteroseptal guardado. ?3.? When compared to previous echocardiogram 06/15/2021, left ?ventricle systolic function may have improved somewhat. ? 06/17/21 Cardiac catheterization Conclusions ? 1. There is severe proximal to mid LAD, heavily calcified stenosis. There is also severe ostial diagonal artery stenosis. ? 2. OM 1 is a small sized vessel and has obstructive disease. Cardiac catheterization 21 June 2021 Conclusions ? 1. Severe proximal to mid LAD stenosis. Severe ostial diagonal artery stenosis. ? 2. Successful revascularization of the LAD with orbital arthrectomy and PCI with JD x 2 including bifurcation stenting of mid LAD and diagonal artery using mini-crush technique (2 stents placed in LAD and 1 in diagonal artery). 06/15/21 Procedure(s): CV. echo complete* [id number] ?CONCLUSIONS ?1. Mildly dilated left ventricle. Severely decreased left ?ventricular systolic function. Left ventricular ejection ?fraction is estimated at 15 %.? There is severe global ?hypokinesis with relative sparing of basal to mid inferolateral ?guardado.? Restrictive diastolic filling pattern with severely ?increased filling pressure. ?2. Mildly increased right ventricular size. Moderately decreased ?right ventricular systolic function. ?3. Mild biatrial enlargement. ?4. Moderate tricuspid valve regurgitation. ?5. Severely increased pulmonary artery pressure estimated at 62 ?mmHg. ?6. When compared to previous echocardiogram dated 05/13/2020, ?left ventricular and right ventricular systolic function has ?decreased. A&P Assessment and plan (1) Chest pain: troponin with no significant delta change. EKG with sinus rhythm with first- degree AV block. Left atrial enlargement. Left axis deviation and interventricular conduction delay (LBBB like morphology). -Chest pain pleuritic, sharp left lateral chest with pain in her left shoulder and arm. -Patient currently on nitroglycerin drip will plan to wean her off. -Echo with improved LV systolic function with ejection fraction ~35-40% -I will assess her clinically in the morning and then decide on further cardiac testing. I will increase her hydralazine 100 mg twice daily (twice a day has been prescribed for the sake of compliance). -I will consider changing furosemide to Bumex. She still makes urine Status: Acute (2) CAD (coronary artery disease): S/p stents to LAD and diagonal Status: Chronic Qualifiers: Associated angina: without angina Coronary Disease-Associated Artery/Lesion type: [place] artery [place] vs. transplanted heart: [place] heart Qualified Code(s): I25.10 - Atherosclerotic heart disease of [place] coronary artery without angina pectoris (3) Ischemic cardiomyopathy: Heart failure with reduced ejection fraction: ?-LVEF (55-->15-20%-->25%-->35-40%).?. -continue coreg and? imdur and currently on hydralazine 50 mg BID -Entresto and losartan were stopped because of hyperkalemia Status: Chronic (4) Hypertension: Blood pressure elevated currently remains on nitroglycerin drip Status: Chronic Qualifiers: Hypertension type: renovascular hypertension Qualified Code(s): I15.0 - Renovascular hypertension (5) Hyperlipidemia: Status: Chronic (6) Pleural effusion, bilateral: S/p multiple thoracentesis -Stable on CT chest Status: Chronic Coding Level of Care Code Established Pt Acute Keyboarding Clerk for Chg Fwd Patient Type Established History Comprehensive Exam Comprehensive Medical Decision Making Moderate Complexity Diagnoses Chest pain R07.9 CAD (coronary artery disease) I25.10 Associated angina: without angina Coronary Disease-Associated Artery/Lesion type: [place] artery [place] vs. transplanted heart: [place] heart Ischemic cardiomyopathy I25.5 Hypertension I15.0 Hypertension type: renovascular hypertension Hyperlipidemia E78.5 Pleural effusion, bilateral J90
[2022-01-18 18:26] LABS: INR 1.19 (0.8-1.2)
[2022-01-18 18:27] LABS: Partial Thromboplastin Time 36.1 SECONDS (23.9-36.7)
[2022-01-18 18:38] LABS: Procalcitonin 0.35 ng/mL (0-0.5)
--- NOTE | 2022-01-18 18:38 | PC.NURSE ---
Around 1830: Verbal orders received from Dr. Gamble, Biomedical Specialist. See MAR.
[2022-01-18 19:01] LABS: NT Pro B Type Natriuretic Pept > 70000 pg/mL (0-125)
[2022-01-18] MEDS: promethazine 25 mg Tablet 12.5 MG PO (19:10)
[2022-01-18] MEDS: carvedilol 25 mg Tablet PO (21:00)
[2022-01-18] MEDS: docusate sodium 100 mg Capsule PO (21:41)
[2022-01-18] MEDS: heparin 5,000 unit/mL INJ 1 mL 5000 UNIT SUBCUT (21:41)
[2022-01-18] MEDS: doxazosin 4 mg Tablet 8 MG PO (21:41)
[2022-01-18] MEDS: FUROsemide 40 mg Tablet 120 MG PO (21:42)
[2022-01-18] MEDS: hyDRALAzine 50 mg Tablet PO (21:42)
[2022-01-18] MEDS: nystatin cream 30 gm 1 APPLIC TOPICAL (22:28)
[2022-01-19] VITALS (16 sets, daily range): BP systolic 123–193; BP diastolic 60–99; PULSE 65–82; RESP 9–28; TEMP 36.1–36.9; O2SAT 89–100
[2022-01-19] MEDS: promethazine 25 mg Tablet 12.5 MG PO ×2 (00:47→08:07)
[2022-01-19] MEDS: nitroglycerin drip 50 MG/250 ML PREMIX 18 MG IV (00:48)
--- NOTE | 2022-01-19 02:52 | PC.NURSE ---
Right foot wound cleansed with normal saline. Gentamycin cream applied. 4x4 dressing chaned at 2200 on 01/18/22.
[2022-01-19 04:47] LABS: Basophils % 0.4 %; Hematocrit 29.2 % (37.0-47.0); Hemoglobin 9.2 g/dL (11.5-15.3); Lymphocytes # 0.4 10^3/uL (0.8-4.8); Mean Corpuscular HGB Conc 31.5 g/dL (30.0-36.0); Mean Corpuscular Hemoglobin 33.2 pg (28.0-34.0); Mean Corpuscular Volume 105.4 fl (81-99); Mean Platelet Volume 10.3 fL (7.4-10.4); Monocytes # 0.2 10^3/uL (0.2-0.9); Monocytes % 2.9 %; Neutrophils # 4.94 10^3/uL (1.8-7.7); Nucleated Red Blood Cells % 0 %; Platelet Count 174 10^3/cmm (130-400); Red Blood Count 2.77 10^6/uL (4.1-5.3); Red Cell Distribution Width 16.2 % (12.1-15.1); White Blood Count 5.6 10^3/uL (4.0-10.0)
[2022-01-19 05:09] LABS: Alanine Aminotransferase 16 U/L (0-33); Albumin Level 3.8 g/dL (3.5-5.2); Alkaline Phosphatase 209 IU/L (35-105); Anion Gap 17.6 (5-19); Aspartate Amino Transferase 21 U/L (0-32); Blood Urea Nitrogen 32 mg/dL (6-20); Calcium 9.4 mg/dL (8.5-10.5); Carbon Dioxide 28 mmol/L (22-29); Chloride 94 mmol/L (98-107); Globulin 3.9 g/dL (1.3-4.6); Glomerular Filtration Rate 8.1 mL/min (90-130); Glucose 207 mg/dL (65-115); Magnesium 2.3 mg/dL (1.7-2.3); Osmolality Calculated 291 mOsm/kg (285-295); Potassium 5.6 mmol/L (3.5-5.1); Sodium 134 mmol/L (136-145); Total Bilirubin 0.5 mg/dL (0.15-1.2); Total Protein 7.7 g/dL (6.6-8.7)
[2022-01-19 05:16] LABS: Phosphorus 8.8 mg/dL (2.5-4.5)
--- NOTE | 2022-01-19 06:01 | PC.NURSE ---
phosphorus 8.8 with morning labs. Secure message to Dr. Larkin sent at [phone]. No response. Call placed flexboard operator at [phone] with no answer. Message left.
[2022-01-19] MEDS: heparin 5,000 unit/mL INJ 1 mL 5000 UNIT SUBCUT (06:46)
[2022-01-19] MEDS: sevelamer 800 mg Tablet PO (08:07)
[2022-01-19] MEDS: isosorbide mononitrate ER 60 mg Tablet 120 MG PO (08:08)
[2022-01-19] MEDS: FUROsemide 40 mg Tablet 120 MG PO (08:08)
[2022-01-19] MEDS: doxazosin 4 mg Tablet 8 MG PO (08:09)
[2022-01-19] MEDS: nystatin cream 30 gm 1 APPLIC TOPICAL (08:09)
[2022-01-19] MEDS: clopidogrel 75 mg Tablet PO (08:09)
[2022-01-19] MEDS: hyDRALAzine 50 mg Tablet PO (08:09)
[2022-01-19] MEDS: aspirin 81 mg Chew Tablet PO (08:09)
[2022-01-19] MEDS: levothyroxine 150 mcg Tablet PO (08:09)
[2022-01-19] MEDS: carvedilol 25 mg Tablet PO (08:09)
[2022-01-19] MEDS: pantoprazole DR 40 mg Tablet PO (08:09)
[2022-01-19 08:12] LABS: Glucose Point of Care 177 mg/dL (70-110)
--- NOTE | 2022-01-19 09:35 | PC.NURSE ---
dialysis nurse here taking patient upstairs for hemodialysis now.
--- NOTE | 2022-01-19 09:53 | PC.CHAP ---
Pastoral Care Encounter/Spiritual Assessment Type of Contact [] Declined field instructor visit [] Patient/Family/Request visit [] Outpatient visit [] Follow-up visit [] Physician referral [] Code/Alert [x] Routine visit [] Staff referral [] Actively dying [] Patient sleeping [x] Family support [] [] Out of room [] Palliative care [] [] Receiving care in room [] Pre-surgical visit [] Trauma [] Long length of stay [] ICU visit [] Other: Relational/Emotional Strength [] Patient feels connected with others/family/visitors/staff [] Distress [] Loneliness/isolation [] Abandonment Spirituality of Patient [x] Person of Mana [] Attends Episcopalian of their Mana [] Believes in Prayer [] Reads Bible or Spiritism materials [] There are Spiritual issues to be addressed Route Salesperson Interventions [x] Prayer x[] Active listening [x] Non-anxious presence [x] Spiritual/emotional support [] Crisis/trauma care [] Spiritual counseling [] Bereavement support [] Provided bereavement packet [] Provided Bible/devotional materials [] Provided toy/stuffed animal, coloring book to patient or family member [] Provided Communion [] Anointing/[place] [] Salvation [x] Completed spiritual assessment [] Other: Impact on Illness or Injury [] Angry [] Fearful [] Anxious [] Often cries [] Exhaustion [] Unable to work [] Unable to attend yazidi [] Unable to walk/stand [] Unable to read [] Unable to drive [] Unable to eat/drink [] Unable to sleep [] Unable to be with family [] Patient intubated [] Other: Summary know patient and spouse ... praying for quick recovery Time spent with patient 10 min
--- NOTE | 2022-01-19 10:30 | PM.PN ---
Subjective Subjective: Feels well. Denies any complains -No chest pains. Medications: Reviewed: Yes Vitals/I&O/Wt Last Vital Signs Temp 98.2 F 01/19/22 07:59 Pulse 66 01/19/22 09:00 Resp 19 H 01/19/22 09:00 BP 137/73 01/19/22 08:00 Pulse Ox 89 L 01/19/22 09:00 01/18/22 01/19/22 01/19/22 22:59 06:59 14:59 Intake Total 437.4 / 463.85 157.5 / 157.5 Balance 437.4 / 463.85 157.5 / 157.5 Weight last 48 hrs Weight 248 lb 6.4 oz Weight 224 lb Physical Exam Narrative: GENERAL: Averagely built and averagely nourished in no acute distress HEENT: Extraocular movement intact. Mild pallor, no icterus. NECK: No carotid bruit. CARDIOVASCULAR SYSTEM: S1-S2 regular. PMI displaced.? grade 3/6 SM in LLSB. RESPIRATORY SYSTEM: Absent breath sounds? mid to basal posterior lung martin on left with absent breath sounds.? No wheezes or rhonchi heard. ABDOMEN: Soft, nontender and nondistended. Normal bowel sounds present. EXTREMITIES: No cyanosis or 1+ edema. Left below-knee amputation SPECIAL EDUCATION PROFESSIONAL: Patient is alert oriented ?3. No focal neurological deficits. Data : 01/19/22 04:28 01/19/22 04:28 A&P Assessment and plan (1) Chest pain: troponin with no significant delta change. EKG with sinus rhythm with first-degree AV block. Left atrial enlargement. Left axis deviation and interventricular conduction delay (LBBB like morphology). -Chest pain pleuritic, sharp left lateral chest with pain in her left shoulder and arm. -Patient currently on nitroglycerin drip will plan to wean her off. -Echo with improved LV systolic function with ejection fraction ~35-40% -No further cardiac testing. I will increase her hydralazine 100 mg twice daily (twice a day has been prescribed for the sake of compliance). -I will consider changing furosemide to Bumex. She still makes urine. She may be discharged home later today with f/u in 2 weeks in [facility]. Status: Acute (2) CAD (coronary artery disease): S/p stents to LAD and diagonal -continue DAPT, statin and beta gabbie Status: Chronic Qualifiers: Coronary Disease-Associated Artery/Lesion type: [place] artery [place] vs. transplanted heart: [place] heart Associated angina: without angina Qualified Code(s): I25.10 - Atherosclerotic heart disease of [place] coronary artery without angina pectoris (3) Ischemic cardiomyopathy: Heart failure with reduced ejection fraction: ?-LVEF (55-->15-20%-->25%-->35-40%).?. -continue coreg and? imdur and currently on hydralazine 50 mg BID -Entresto and losartan were stopped because of hyperkalemia Status: Chronic (4) Hypertension: Med changes as above Status: Chronic Qualifiers: Hypertension type: renovascular hypertension Qualified Code(s): I15.0 - Renovascular hypertension (5) Hyperlipidemia: Status: Chronic (6) Pleural effusion, bilateral: S/p multiple thoracentesis -Stable on CT chest Status: Chronic Attestations Medical Necessity Statement*: stable to be discharged later today Coding Level of Care Code Established Pt Acute Director Clinical Applications for Chg Fwd Patient Type Established History Comprehensive Exam Comprehensive Medical Decision Making Moderate Complexity Diagnoses Chest pain R07.9 CAD (coronary artery disease) I25.10 Coronary Disease-Associated Artery/Lesion type: [place] artery [place] vs. transplanted heart: [place] heart Associated angina: without angina Ischemic cardiomyopathy I25.5 Hypertension I15.0 Hypertension type: renovascular hypertension Hyperlipidemia E78.5 Pleural effusion, bilateral J90
--- NOTE | 2022-01-19 14:18 | PM.DCS ---
Discharge Providers Date of Admission: 01/18/22 14:43 Date of Discharge: January 19, 2022 Attending Provider at Admission: Stacey Nunes MD Attending Provider at Discharge: Sudheer Spaulding MD Primary Care Provider: Karen Bear MD Diagnoses at Discharge Discharge Diagnosis (1) Chest pain: Status: Acute (2) CAD (coronary artery disease): Status: Chronic Qualifiers: Coronary Disease-Associated Artery/Lesion type: [place] artery [place] vs. transplanted heart: [place] heart Associated angina: without angina Qualified Code(s): I25.10 - Atherosclerotic heart disease of [place] coronary artery without angina pectoris (3) Ischemic cardiomyopathy: Status: Chronic Permanent problem details: EF 05/2020 65% >> 06/2021 15%, 09/2021 25% (4) Hypertension: Status: Chronic Qualifiers: Hypertension type: renovascular hypertension Qualified Code(s): I15.0 - Renovascular hypertension (5) Hyperlipidemia: Status: Chronic (6) Pleural effusion, bilateral: Status: Chronic Reason for Visit Reason for Visit: CHEST PAIN Hospital Course Hospital Course This is a 61 year old female with a history of coronary disease s/p multiple stents (?06/2021: LAD with orbital arthrectomy and PCI with JD x 2 including bifurcation stenting of mid LAD and diagonal artery using mini-crush technique (2 stents placed in LAD and 1 in diagonal artery), ischemic cardiomyopathy (last LVEF of 25%, 09/2021), end-stage renal disease on hemodialysis via tunneled catheter x ~1 yr, hypertension, type 2 diabetes,? 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, history of multiple pleural effusions requiring thoracocentesis, history of left sided thoracostomy tube placement due to concern for empyema with removal of 1500 ml of bloody fluid, deemed a high surgical candidate for surgical intervention, recent history of cellulitis with sepsis of right lower extremity who presents [facility] for chest pain Patient was admitted to [facility] for chest pain, NSTEMI, 6-hour troponin I 85, down to 15.1, EKG no acute ST-T wave changes, recurrent chest pain during hospitalization, echocardiogram showed diffuse hypokinesis of the left ventricle with EF 40%, mild to moderate tricuspid valve regurg, compared to echocardiogram 10/02/2021, EF was improved, CT of the chest negative for aortic dissection. Cardiology was consulted, who recommended medical management, hydralazine dose was increased 100 twice daily, received inpatient dialysis, clinically improved, discharged home with follow-up with cardiology as outpatient, if she develops recurrent chest pain go to the emergency room. Continue home aspirin, Plavix, Coreg, statin Physical Exam Const: COMMON NORMALS: no acute distress and patient oriented x3 Resp: COMMON NORMALS: normal respiratory effort, No retractions, No use of accessory muscles and clear to auscultation bilaterally AUSCULTATION: clear to auscultation bilaterally Cardio: COMMON NORMALS: regular rate, regular rhythm, S1 normal heart sound present and S2 normal heart sound present RATE: regular rate RHYTHM: regular rhythm HEART SOUNDS: S1 normal heart sound present and S2 normal heart sound present GI: COMMON NORMALS: Normal to inspection, nondistended, normoactive bowel sounds present, Soft to palpation, non-tender and No hepatosplenomegaly present PALPATION: Yes Soft to palpation and Yes No hepatosplenomegaly present Extremity: COMMON NORMALS: no pedal edema Neuro: COMMON NORMALS: patient oriented x3 Psych: COMMON NORMALS: mental status grossly normal Discharge Data Studies Completed and Pending Completed Studies During Hospitalization Category Date Time Status CTA chest abdomen pelvis [CT angio chest abdomen pelvis Cat Scan 01/18/22 13:38 Completed ] Urgent XR chest 1V portable [id number] Urgent Exams 01/18/22 11:17 Completed CV. echo complete* [id number] Routine Ultrasound 01/18/22 12:26 Completed Radiology Impressions Chest X-Ray 01/18/22 11:17 IMPRESSION: Stable pleural effusions and basilar atelectasis. Chest/Abdomen/Pelvis CTA 01/18/22 13:38 IMPRESSION: 1. No aortic dissection or aneurysm. 2. Extensive severe atherosclerotic disease throughout the arteries in the chest, abdomen and pelvis. 3. Diffuse soft tissue anasarca. 4. Small amount of ascites. 5. Advanced degenerative changes in thoracic and lumbar spine with osteophyte encroaching upon the thecal sac at the L4-5 level and foraminal stenosis. 6. Small bilateral pleural effusions. 7. Indeterminate mediastinal, hilar, retroperitoneal and mesenteric lymphadenopathy. May be reactive. 8. Cardiomegaly. Laboratory Results WBC 5.6 10^3/uL (4.0-10.0) 03/09/22 04:28 RBC 2.77 10^6/uL (4.1-5.3) L 01/19/22 04:28 Hgb 9.2 g/dL (11.5-15.3) L 01/19/22 04:28 Hct 29.2 % (37.0-47.0) L 01/19/22 04:28 MCV 105.4 fl (81-99) H 01/19/22 04:28 MCH 33.2 pg (28.0-34.0) 01/19/22 04:28 MCHC 31.5 g/dL (30.0-36.0) 01/19/22 04:28 RDW 16.2 % (12.1-15.1) H 01/19/22 04:28 Plt Count 174 10^3/cmm (130-400) 01/19/22 04:28 MPV 10.3 fL (7.4-10.4) 01/19/22 04:28 Neut % (Auto) 89.0 % 01/19/22 04:28 Lymph % (Auto) 7.0 % 01/19/22 04:28 [place] % (Auto) 2.9 % 01/19/22 04:28 Eos % (Auto) 0.0 % 01/19/22 04:28 Baso % (Auto) 0.4 % 01/19/22 04:28 Neut # (Auto) 4.94 10^3/uL (1.8-7.7) 01/19/22 04:28 Lymph # (Auto) 0.4 10^3/uL (0.8-4.8) L 01/19/22 04:28 [place] # (Auto) 0.2 10^3/uL (0.2-0.9) 01/19/22 04:28 Eos # (Auto) 0.0 10^3/uL (0.0-0.8) 01/19/22 04:28 Baso # (Auto) 0.0 10^3/uL (0.0-0.1) 01/19/22 04:28 Nucleated RBC % (auto) 0 % 01/19/22 04:28 Nucleated RBCs # 0.0 /100WBC 01/19/22 04:28 PT 15.50 SECONDS (12.1-14.9) H 01/18/22 11:20 INR 1.19 (0.8-1.2) 01/18/22 11:20 APTT 36.1 SECONDS (23.9-36.7) 01/18/22 11:20 Sodium 134 mmol/L (136-145) L 01/19/22 04:28 Potassium 5.6 mmol/L (3.5-5.1) H 01/19/22 04:28 Chloride 94 mmol/L (98-107) L 01/19/22 04:28 Carbon Dioxide 28 mmol/L (22-29) 01/19/22 04:28 Anion Gap 17.6 (5-19) 01/19/22 04:28 BUN 32 mg/dL (6-20) H 01/19/22 04:28 Creatinine 5.4 mg/dL (0.5-0.9) H 01/19/22 04:28 GFR Calculation 8.1 mL/min (90-130) L 01/19/22 04:28 Glucose 207 mg/dL (65-115) H 01/19/22 04:28 POC Glucose 177 mg/dL (70-110) H 01/19/22 07:10 Calculated Osmolality 291 mOsm/kg (285-295) 01/19/22 04:28 Calcium 9.4 mg/dL (8.5-10.5) 01/19/22 04:28 Phosphorus 8.8 mg/dL (2.5-4.5) H* 01/19/22 04:28 Magnesium 2.3 mg/dL (1.7-2.3) 01/19/22 04:28 Total Bilirubin 0.5 mg/dL (0.15-1.2) 01/19/22 04:28 AST 21 U/L (0-32) 01/19/22 04:28 ALT 16 U/L (0-33) 01/19/22 04:28 Alkaline Phosphatase 209 IU/L (35-105) H 01/19/22 04:28 Troponin T Baseline 170 ng/L (0-10) H* 01/18/22 11:20 Troponin T 120 Minute 166.7 ng/L (0-10) H 01/18/22 13:23 Delta Troponin T -3.3 ABS# (0-10) L 01/18/22 13:23 Troponin T Hi Sens 6Hr 185.1 ng/L (0-10) H 01/18/22 16:33 Troponin T Hi Sens 6Hr Delta 15.1 ng/L (0-12) H* 01/18/22 16:33 C-Reactive Protein 5.2 mg/L (0.0-4.9) H 01/18/22 11:20 NT-Pro-B Natriuret Pep > 55103 pg/mL (0-125) H 01/18/22 11:20 Total Protein 7.7 g/dL (6.6-8.7) 01/19/22 04:28 Albumin 3.8 g/dL (3.5-5.2) 01/19/22 04:28 Globulin 3.9 g/dL (1.3-4.6) 01/19/22 04:28 Procalcitonin 0.35 ng/mL (0-0.5) 01/18/22 11:20 Vitals Last Vital Signs Temp 98.2 F 01/19/22 07:59 Pulse 66 01/19/22 09:00 Resp 19 H 01/19/22 09:00 BP 137/73 01/19/22 08:00 Pulse Ox 89 L 01/19/22 09:00 Discharge Plan Discharge Patient Disposition: Home Condition: Stable Prescriptions: New nitroglycerin 0.4 mg Tablet, Sublingual 0.4 mg sublingual Q5M PRN (Reason: Chest Pain) 30 Days Qty: 30 0RF docusate sodium 100 mg Capsule 100 mg PO BID 30 Days Qty: 60 0RF Continued nystatin 100,000 unit/gram cream 1 applic topical BID Qty: 30 0RF furosemide 80 mg tablet 120 mg PO 0800,1400 Qty: 270 1RF Synthroid 150 mcg tablet 150 mcg PO DAILY Qty: 30 5RF Rx Instructions: Take 1 tablet by mouth once daily gentamicin 0.1 % cream 1 applic topical TID Qty: 30 3RF (DME) Stump Supervisor Liquid Yeast See Rx Instructions .Route .MEDSUPPLY Qty: 1 0RF Rx Instructions: As directed isosorbide mononitrate 120 mg tablet extended release 24 hr 120 mg PO DAILY Qty: 30 2RF promethazine-DM 6.25-15 mg/5 mL syrup 5 ml PO Q6H PRN (Reason: cough) Qty: 160 0RF albuterol sulfate [ProAir HFA] 90 mcg/actuation Hfa Aerosol Inhaler 2 puff INHALATION Q4H PRN (Reason: Shortness Of Breath) 0RF RenaPlex-D 800 mcg-12.5 mg -2,000 unit tablet 1 tab PO DAILY 0RF clopidogrel 75 mg Tablet 75 mg PO DAILY 90 Days Qty: 90 2RF nitroglycerin 0.4 mg Tablet, Sublingual 0.4 mg sublingual Q5M PRN (Reason: Chest Pain) 30 Days Qty: 30 2RF aspirin [Children's Aspirin] 81 mg Tablet,Chewable 81 mg PO DAILY 90 Days Qty: 90 2RF doxazosin [Cardura] 2 mg tablet 8 mg PO BID 0RF psyllium husk [Metamucil] 0.4 gram Capsule 0.4 g PO DAILY 0RF ondansetron HCl 4 mg Tablet 8 mg PO Q8H PRN (Reason: Nausea And Vomiting) Qty: 10 0RF Tums Ultra 470 mg calcium (1,177 mg) tablet,chewable 3,531 mg PO . TID AND WITH MEALS 0RF sevelamer carbonate [Renvela] 800 mg tablet 800 mg PO DAILY 0RF carvedilol [Coreg] 25 mg Tablet 25 mg PO BID 0RF Changed hydralazine 50 mg tablet 100 mg PO BID Qty: 0 0RF Discharge Orders: Discharge Order (Routine); Ordered 01/19/22 Ordered By: Sudheer Spaulding Referrals: Allison Gamble MD [Physician] - 2 weeks Karen Bear MD [Primary Care Provider] - Discharge Diet: Advance as tolerated Discharge Activity: Resume usual activity Patient Instructions: Nitroglycerin (By mouth), Hypertension (DC), Hyperlipidemia (DC), Chest Pain Stoplight, Opioid Safety Activity Restrictions/Additional Instructions: -If you have recurrent chest pain please go to emergency room -Use nitroglycerin as needed -Follow-up with cardiology in 2 weeks Discharge Attestations Time Spent in Discharge Care*: less than 30 min Status at Discharge: Cognitive status at discharge: cognitively intact, Behavioral status at discharge: cooperative, Quality Metrics Clinical Quality Measures [ No reported AMI, CVA or VTE this stay] Coding Level of Care Code Acute Chg FW DC note Diagnoses Chest pain R07.9 CAD (coronary artery disease) I25.10 Coronary Disease-Associated Artery/Lesion type: [place] artery [place] vs. transplanted heart: [place] heart Associated angina: without angina Ischemic cardiomyopathy I25.5 Hypertension I15.0 Hypertension type: renovascular hypertension Hyperlipidemia E78.5 Pleural effusion, bilateral J90
--- NOTE | 2022-01-19 14:32 | P.PN_ITS ---
Subjective Subjective: Ms. Shaw received hemodialysis today. Tolerated the treatment well, tolerated total of 1800 mL ultrafiltration before she started to cramp. Chest pain now resolved, adjustments by cardiology made, she otherwise feels asymptomatic and is about to leave. Vitals/I&O/Wt Last Vital Signs Temp 98.2 F 01/19/22 07:59 Pulse 66 01/19/22 09:00 Resp 19 H 01/19/22 09:00 BP 137/73 01/19/22 08:00 Pulse Ox 89 L 01/19/22 09:00 01/18/22 01/19/22 01/19/22 22:59 06:59 14:59 Intake Total 437.4 / 463.85 157.5 / 157.5 Balance 437.4 / 463.85 157.5 / 157.5 Weight last 48 hrs Weight 112.672 kg Weight 101.605 kg Physical Exam Narrative: Constitutional: Awake, comfortable HEENT: Wet mucosa, no jvp, non icteric Lungs: Bilaterally clear without discernible wheeze, rales in all lung zones CVS: S1 S2, no murmurs Abdo: Soft, BS ok Ext 4: Minimal edema, peripheral perfusion with no cyanosis Neurological: Grossly non-focal Data : 01/19/22 04:28 01/19/22 04:28 A&P Assessment and plan (1) ESRD (end stage renal disease): 1. ESRD To continue outpatient dialysis and local clinic with Dr. Lora, next to have dialysis on Monday. 2. Hemodynamics remain stable. 3. Chronic ESRD issues to be addressed as outpatient by Dr. Guido Vazquez MD Nephrology [phone] Patient seen and examined via telemedicine, with the assistance of the bedside RN > 25 min spent in evaluation and mgmt of patient Status: Chronic Attestations Medical Necessity Statement*: esrd mgmt Coding Level of Care Code Acute Manager [employer] for [employer]g Fwd Diagnoses ESRD (end stage renal disease) N18.6
[2022-01-19] MEDS: heparin, porcine 1,000 unit/mL INJ 10 mL HE (15:04)
--- NOTE | 2022-01-19 15:22 | PC.NURSE ---
pt pivx3 dc'd. discharge instructions reviewed with patient and spouse. discussed change in medications. no questions or concerns from patient or spouse, verbalized understanding of all discharge instructions and follow up appointments. pt left via to private vehicle. assisted in transfer from to [place]. all personal belongings taken with patient.
== END 2022-01-19 15:18 | disposition home or self-care (01) ==
LOC: ER 13:52 → CSU 17:36
PROVIDERS: Admitting Provider Hospitalist; Emergency Provider Emergency Medicine; PCP Family Medicine; Visit Provider Family Medicine
DX: R07.9 Chest pain, unspecified (principal); I25.10 Atherosclerotic heart disease of native coronary artery without angina pectoris; I25.5 Ischemic cardiomyopathy; I15.0 Renovascular hypertension; E78.5 Hyperlipidemia, unspecified; J90 Pleural effusion, not elsewhere classified; Z95.5 Presence of coronary angioplasty implant and graft; E03.9 Hypothyroidism, unspecified; Z86.14 Personal history of Methicillin resistant Staphylococcus aureus infection; E11.22 Type 2 diabetes mellitus with diabetic chronic kidney disease; I13.2 Hypertensive heart and chronic kidney disease with heart failure and with stage 5 chronic kidney disease, or end stage renal disease; N18.6 End stage renal disease; Z99.2 Dependence on renal dialysis; I50.20 Unspecified systolic (congestive) heart failure; E11.40 Type 2 diabetes mellitus with diabetic neuropathy, unspecified; Z82.49 Family history of ischemic heart disease and other diseases of the circulatory system; Z83.3 Family history of diabetes mellitus; I44.7 Left bundle-branch block, unspecified; R59.1 Generalized enlarged lymph nodes; L97.512 Non-pressure chronic ulcer of other part of right foot with fat layer exposed; E11.621 Type 2 diabetes mellitus with foot ulcer
CPT/HCPCS: 36415; 36416; 71045; 71275; 74174; 80048; 80053; 82962; 83735; 83880; 84100; 84145; 84484; 85025; 85610; 85730; 86140; 93005; 93306; 96372; G0378; J1170; J1200; J1644; J2270; J2405; J2930; J3490; Q0169; Q9967

== ENCOUNTER → 2022-02-15 13:39 | Outpatient (BNVA) | payer MEDICARE, MEDICAID, SELFPAY | PROVIDERS: PCP Family Medicine; Visit Provider Surgery | DX: R19.8 Other specified symptoms and signs involving the digestive system and abdomen (principal) | CPT/HCPCS: 99214 ==

== ENCOUNTER → 2022-03-10 13:46 | Outpatient (BNVA) | payer MEDICARE, MEDICAID, SELFPAY | PROVIDERS: PCP Family Medicine; Visit Provider Internal Medicine Cardiovascular Disease | DX: I13.2 Hypertensive heart and chronic kidney disease with heart failure and with stage 5 chronic kidney disease, or end stage renal disease (principal); E11.22 Type 2 diabetes mellitus with diabetic chronic kidney disease; N18.6 End stage renal disease; I50.20 Unspecified systolic (congestive) heart failure; Z99.2 Dependence on renal dialysis; N17.9 Acute kidney failure, unspecified; Z79.84 Long term (current) use of oral hypoglycemic drugs; I25.5 Ischemic cardiomyopathy; I25.10 Atherosclerotic heart disease of native coronary artery without angina pectoris; I15.0 Renovascular hypertension; E78.5 Hyperlipidemia, unspecified | CPT/HCPCS: 99214 ==

== ENCOUNTER 2022-03-24 13:03 | Emergency (ER) | payer MEDICARE, MEDICAID, SELFPAY ==
[2022-03-24 13:19] VITALS: BP 97/54; PULSE 83; RESP 24; TEMP 37.4; O2SAT 90; BMI 36.1
--- NOTE | 2022-03-24 13:26 | XR_ITS ---
WS: [id number] PORTABLE CHEST HISTORY: hypoxia, fevers, not feeling well COMPARISON: 01/18/2022 and 12/25/2021 Dialysis catheter present with tip overlying the distal SVC and RIGHT heart. Similar to the prior rustam dy. Lung volumes are decreased. Small LEFT pleural effusion with LEFT basilar atelectasis/pneumonia. Mini mal increase in amount of pleural fluid since the prior study. Areas of atelectasis adjacent to the d escending aorta and at the LEFT lung base. Subsegmental atelectasis RIGHT costophrenic angle. No pneu mothorax. Cardiac size: Normal. Mediastinum/Aorta: Mild atherosclerosis aorta. No osseous abnormality seen. XR/XR chest 1V portable [id number] IMPRESSION: 1. Small LEFT pleural effusion with pleural thickening and atelectasis. Very s light increase in size in the amount of pleural thickening since 01/18/2022. 2. Consolidation at the LEFT lung base may be atelectasis from the effusion or developing pneumonia.
--- NOTE | 2022-03-24 13:27 | CT_ITS ---
WS: [id number] CT ABDOMEN AND PELVIS NONCONTRAST HISTORY: complains of severe abdominal pain TECHNIQUE: Imaging performed through the abdomen and pelvis. Coronal and sagittal reformats are submi tted. All CT scans at [facility] use at least one of these dose optimization techniques: auto mated exposure control; mA and/or kV adjustment per patient size (includes targeted exams where dose is matched to clinical indication); or iterative reconstruction. DLP: 2283.9 mGy.cm COMPARISON: 01/18/2022 and 05/13/2020 Lower thorax: Patient has known small LEFT pleural effusion and pleural thickening at the lung bases. Very small layering RIGHT pleural effusion. Heavy calcification noted within the coronary arteries. There is a small circumferential pericardial effusion and mild cardiomegaly. Soft tissue anasarca. Liver: Low-attenuation throughout the liver. There is a small amount of perihepatic fluid. Gallbladder: Prior cholecystectomy. No duct dilatation appreciated. Pancreas: Severe atrophy of the pancreas. Spleen: Normal size spleen with adjacent fluid. Adrenal glands: Normal. No mass. Right kidney: Atrophy of the RIGHT kidney is no obstruction. Heavy vascular calcification. Left kidney: Atrophy with no obstruction. Heavy vascular calcification. Aorta: Heavily calcified aorta. Severe calcification involving the mesenteric arteries. Patient is at significant risk for ischemic bowel. Extensive soft tissue anasarca. There is a small amount of ascites throughout the abdomen. There is a lso mesenteric edema. There are a few small lymph nodes in the retroperitoneum. The largest measuring 12 mm. GI tract: No GI tract obstruction. No small bowel or colon ischemic changes. Abdominal wall: No hernia. Diffuse soft tissue anasarca. Pelvis: Small amount of fluid in the pelvis. Uterus is atrophic with heavy calcifications throughout the iliac arteries. Small bilateral inguinal lymph nodes. Osseous structures: Advanced spondylitic changes in the thoracic and lumbar spines. No bone destructi on. CT/CT abdomen pelvis wo con [id number] IMPRESSION: 1. Severe soft tissue anasarca with mesenteric edema and a small amount of asc ites throughout the abdomen and pelvis. 2. Severe, extensive atherosclerotic changes throughout the aorta and the mes enteric arteries. 3. No GI tract ischemia or free air. Patient is at risk for ischemic bowel due to the extensive atherosclerotic changes within the aorta and mesenteric arter ies. 4. No free air. 5. Indeterminate retroperitoneal lymph nodes measuring up to 12 mm. Decrease i n size since the prior study of 01/18/2022. 6. Bilateral very small pleural effusions. Pleural thickening at the LEFT lung base similar to prior studies.
--- NOTE | 2022-03-24 13:28 | W.ED.GENADLT ---
Documented by User: LU Sanchez 03/24/22 15:28 HPI - General Adult General: Chief complaint: Shortness of Breath/Dyspnea Stated complaint: High HR Severe ABD Pain Time Seen by Provider: 03/24/22 13:15 Source: patient and family Mode of arrival: EMS Limitations: no limitations History of Present Illness: Patient is a 61-year-old female with an extensive medical history including CAD with multiple stents, ischemic cardiomyopathy (last EF noted at 25%), ESRD on MWF hemodialysis, HTN, DM2, hx of MRSA spinal abscess, MSSA endocarditis, charcot arthropathy, hypothyroidism, hx of L ankle osteomyelitis sp BKA, recurrent pleural effusions requiring thoracenteses, and recurrent cellulitis here for complaints of swelling and not feeling well. Patient tells me she is having a large amount of swelling to her abdomen and lower extremities. Patient states she was recently treated for a right lower leg cellulitis (hospital documentation states this was in [facility]). She reports she has missed her last 2 dialysis treatments because she did not feel well. Patient arrives hypotensive with BPs in the 90s/50s, low-grade fever of 99.3, and hypoxic on room air at roughly 87 to 88%. Associated symptoms: Reports dyspnea; Deny chest pain, headache(s), nausea, palpitations, syncope or vomiting Review of Systems Const: Reports: fever(s), chills, body aches and fatigue Eyes: Denies: change in vision or blurry vision Card: Reports: swelling of feet/ankles, dyspnea on exertion and orthopnea; Denies: chest pain, palpitations, irregular heart rhythm, edema, lightheadedness, syncope or pre-syncope Resp: Reports: dyspnea; Denies: wheezing or hemoptysis GI: Reports: abdominal pain; Denies: nausea, vomiting or diarrhea : Reports: other (pt doesn't make urine with her ESRD); Denies: flank pain Musc: Reports: extremity pain and extremity swelling; Denies: neck pain or back pain Neuro: Denies: headache(s) PFS ED PFSH: Medical History Anemia Chronic kidney disease and blood loss, has previously required transfusion Aortic valve endocarditis (~04/2020) CAD (coronary artery disease) Charcot's joint of foot in type 2 diabetes mellitus Congestive heart failure systolic Diabetes Diabetes mellitus type 2, not on medications, HbA1c 10/2021 5.2 Diabetic ulcer of left foot Diabetic ulcer of right foot Difficult intravenous access Epidural abscess (~2017) ESRD (end stage renal disease) previously on peritoneal dialysis currently on hemodialysis History of colon polyps History of MRSA infection spinal abscess 2017 Hyperlipidemia Hypertension Hypothyroidism Ischemic cardiomyopathy EF 05/2020 65% >> 06/2021 15%, 09/2021 25% 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 Severe proximal to mid LAD stenosis. Severe ostial diagonal artery stenosis. 2. Successful revascularization of the LAD with orbital arthrectomy and PCI with JD x 2 including bifurcation stenting of mid LAD and diagonal artery using mini-crush technique (2 stents placed in LAD and 1 in diagonal artery). History of cholecystectomy History of colonoscopy with polypectomy 2017 History of left below knee amputation History of lumbar surgery Due to epidural abscess in March 2018 Peritoneal dialysis catheter in place removal 05/20/21 S/P hemodialysis catheter insertion multiple Family History Mother Cancer Uterine and breast cancer Father Diabetes Other CAD (coronary artery disease) Social History Smoking and tobacco status: never smoked Alcohol intake: current Alcohol intake frequency: holidays/special occasions only Marital status: Physical Exam Const: COMMON NORMALS: patient oriented x3, no limitations and alert GENERAL APPEARANCE: cooperative NUTRITIONAL APPEARANCE: obese HENMT: COMMON NORMALS: normocephalic and atraumatic HEAD & SCALP: normocephalic and atraumatic Chest: COMMONS NORMALS: normal inspection of the chest and normal palpation of entire chest wall Resp: COMMON NORMALS: normal respiratory effort AUSCULTATION: diminished lung sounds (L lower) Cardio: COMMON NORMALS: regular rate and regular rhythm RATE: regular rate RHYTHM: regular rhythm GI: INSPECTION: Yes Abdominal wall edema and Yes Anasarca AUSCULTATION: Yes normoactive bowel sounds PALPATION: Yes Tenderness to palpation present (GI) Extremity: GENERAL: Yes normal exam except as noted OTHER: L BKA; bilateral LE with marked lymphedema, she has some mild erythema to anterior lower aspect of R LE; charcot arthropathy/deformity noted to R ankle/foot Neuro: SEEMA COMA SCALE: document GCS findings Seema coma scale eye opening: Spontaneous Seema coma scale verbal response: Orientated Seema coma scale motor response: Obey commands [place] coma scale total score: 15 COMMON NORMALS: patient oriented x3 SENSORIUM/ORIENTATION: Yes alert Course Vital Signs: Vital signs: Vital Signs Temperature 99.6 F 03/24/22 15:02 Pulse Rate 77 03/24/22 18:39 Respiratory Rate 20 H 03/24/22 18:39 Blood Pressure 112/60 03/24/22 18:39 Pulse Oximetry 96 03/24/22 18:39 MDM - General Adult Medical Decision Making Dr. Cook consulted following my initial assessment given her acuity and need for hospitalization and emergent dialysis. He will evaluate patient and speak to hospitalist. Recommended adding 2g Rocephin for abx coverage. Lab Data : 03/24/22 14:06 03/24/22 14:06 Radiology Impressions Chest X-Ray 03/24/22 13:26 IMPRESSION: 1. Small LEFT pleural effusion with pleural thickening and atelectasis. Very slight increase in size in the amount of pleural thickening since 01/18/2022. 2. Consolidation at the LEFT lung base may be atelectasis from the effusion or developing pneumonia. Abdomen/Pelvis CT 03/24/22 13:27 IMPRESSION: 1. Severe soft tissue anasarca with mesenteric edema and a small amount of ascites throughout the abdomen and pelvis. 2. Severe, extensive atherosclerotic changes throughout the aorta and the mesenteric arteries. 3. No GI tract ischemia or free air. Patient is at risk for ischemic bowel due to the extensive atherosclerotic changes within the aorta and mesenteric arteries. 4. No free air. 5. Indeterminate retroperitoneal lymph nodes measuring up to 12 mm. Decrease in size since the prior study of 01/18/2022. 6. Bilateral very small pleural effusions. Pleural thickening at the LEFT lung base similar to prior studies. Laboratory Results WBC 12.6 10^3/uL (4.0-10.0) H 03/24/22 14:06 RBC 2.83 10^6/uL (4.1-5.3) L 03/24/22 14:06 Hgb 9.1 g/dL (11.5-15.3) L 03/24/22 14:06 Hct 28.2 % (37.0-47.0) L 03/24/22 14:06 MCV 99.6 fl (81-99) H 03/24/22 14:06 MCH 32.2 pg (28.0-34.0) 03/24/22 14:06 MCHC 32.3 g/dL (30.0-36.0) 03/24/22 14:06 RDW 16.8 % (12.1-15.1) H 03/24/22 14:06 Plt Count 141 10^3/cmm (130-400) 03/24/22 14:06 MPV 10.6 fL (7.4-10.4) H 03/24/22 14:06 Neut % (Auto) 83.9 % 03/24/22 14:06 Lymph % (Auto) 3.7 % 03/24/22 14:06 [place] % (Auto) 10.1 % 03/24/22 14:06 Eos % (Auto) 0.8 % 03/24/22 14:06 Baso % (Auto) 0.3 % 03/24/22 14:06 Neut # (Auto) 10.58 10^3/uL (1.8-7.7) H 03/24/22 14:06 Lymph # (Auto) 0.5 10^3/uL (0.8-4.8) L 03/24/22 14:06 [place] # (Auto) 1.3 10^3/uL (0.2-0.9) H 03/24/22 14:06 Eos # (Auto) 0.1 10^3/uL (0.0-0.8) 03/24/22 14:06 Baso # (Auto) 0.0 10^3/uL (0.0-0.1) 03/24/22 14:06 Nucleated RBC % (auto) 0 % 03/24/22 14:06 Nucleated RBCs # 0.0 /100WBC 03/24/22 14:06 Sodium 131 mmol/L (136-145) L 03/24/22 14:06 Potassium 5.7 mmol/L (3.5-5.1) H 03/24/22 14:06 Chloride 91 mmol/L (98-107) L 03/24/22 14:06 Carbon Dioxide 21 mmol/L (22-29) L 03/24/22 14:06 Anion Gap 24.7 (5-19) H 03/24/22 14:06 BUN 78 mg/dL (6-20) H 03/24/22 14:06 Creatinine 10.0 mg/dL (0.5-0.9) H* 03/24/22 14:06 GFR Calculation 4.0 mL/min (90-130) L 03/24/22 14:06 Glucose 133 mg/dL (65-115) H 03/24/22 14:06 Calculated Osmolality 297 mOsm/kg (285-295) H 03/24/22 14:06 Lactic Acid 1.1 mmol/L (0.5-2.2) 03/24/22 14:06 Calcium 8.8 mg/dL (8.5-10.5) 03/24/22 14:06 Total Bilirubin 1.5 mg/dL (0.15-1.2) H 03/24/22 14:06 AST 11 U/L (0-32) 03/24/22 14:06 ALT 10 U/L (0-33) 03/24/22 14:06 Alkaline Phosphatase 153 IU/L (35-105) H 03/24/22 14:06 Troponin T Baseline 314 ng/L (0-10) H* 03/24/22 14:06 NT-Pro-B Natriuret Pep > 78524 pg/mL (0-125) H 03/24/22 14:06 Total Protein 7.3 g/dL (6.6-8.7) 03/24/22 14:06 Albumin 3.3 g/dL (3.5-5.2) L 03/24/22 14:06 Globulin 4.0 g/dL (1.3-4.6) 03/24/22 14:06 Discharge Plan Discharge Patient Disposition: Left Against Medical Advice Clinical Impression: ESRD (end stage renal disease), Hyperkalemia, Pneumonia Condition: Stable Prescriptions: New amoxicillin-pot clavulanate 875-125 mg tablet 1 tab PO Q12H Qty: 14 0RF No Action Synthroid 150 mcg tablet 150 mcg PO DAILY Qty: 30 5RF Rx Instructions: Take 1 tablet by mouth once daily gentamicin 0.1 % cream 1 applic topical TID PRN (Reason: Rash) 0RF nystatin 100,000 unit/gram cream 1 applic topical BID PRN (Reason: Rash) 0RF sodium bicarbonate 650 mg tablet 650 mg PO BID 0RF bumetanide 2 mg tablet 4 mg PO BID Qty: 120 3RF (DME) Stump Rn Transitional Care See Rx Instructions .Route .MEDSUPPLY Qty: 1 0RF Rx Instructions: As directed hydralazine 50 mg tablet 50 mg PO BID 0RF promethazine-DM 6.25-15 mg/5 mL syrup 5 ml PO Q6H PRN (Reason: cough) Qty: 160 0RF albuterol sulfate [ProAir HFA] 90 mcg/actuation Hfa Aerosol Inhaler 2 puff INHALATION Q4H PRN (Reason: Shortness Of Breath) 0RF RenaPlex-D 800 mcg-12.5 mg -2,000 unit tablet 1 tab PO DAILY 0RF clopidogrel 75 mg Tablet 75 mg PO DAILY 90 Days Qty: 90 2RF nitroglycerin 0.4 mg Tablet, Sublingual 0.4 mg sublingual Q5M PRN (Reason: Chest Pain) 30 Days Qty: 30 2RF aspirin [Children's Aspirin] 81 mg Tablet,Chewable 81 mg PO DAILY 90 Days Qty: 90 2RF doxazosin [Cardura] 2 mg tablet 8 mg PO BID 0RF psyllium husk [Metamucil] 0.4 gram Capsule 0.4 g PO DAILY 0RF ondansetron HCl 4 mg Tablet 8 mg PO Q8H PRN (Reason: Nausea And Vomiting) Qty: 10 0RF Tums Ultra 470 mg calcium (1,177 mg) tablet,chewable 3,531 mg PO TIDWM PRN (Reason: Heartburn) 0RF carvedilol [Coreg] 25 mg Tablet 25 mg PO BID 0RF Discharge Orders: Discharge ED (Routine); Ordered 03/24/22 Ordered By: Jake Cook Referrals: Karen Bear MD [Primary Care Provider] - Discharge Diet: Usual diet Discharge Activity: Resume usual activity Activity Restrictions/Additional Instructions: As we discussed you are leaving the emergency department against our recommendations. Please get to dialysis clinic tomorrow or soon as possible. We have provided a prescription for antibiotic to take as well. You are welcome to return to the emergency department anytime and we encourage you to do so. Stand Alone Forms: Against Medical Advice Coding Level of Care Code ED Stonework Supervisor for Chg Fwd Exam Comprehensive Documented by User: Jake Cook DO 03/24/22 18:56 HPI - General Adult General: Chief complaint: Shortness of Breath/Dyspnea Stated complaint: High HR Severe ABD Pain Time Seen by Provider: 03/24/22 13:15 PFSH ED PFSH: Medical History Anemia Chronic kidney disease and blood loss, has previously required transfusion Aortic valve endocarditis (~04/2020) CAD (coronary artery disease) Charcot's joint of foot in type 2 diabetes mellitus Congestive heart failure systolic Diabetes Diabetes mellitus type 2, not on medications, HbA1c 10/2021 5.2 Diabetic ulcer of left foot Diabetic ulcer of right foot Difficult intravenous access Epidural abscess (~2017) ESRD (end stage renal disease) previously on peritoneal dialysis currently on hemodialysis History of colon polyps History of MRSA infection spinal abscess 2017 Hyperlipidemia Hypertension Hypothyroidism Ischemic cardiomyopathy EF 05/2020 65% >> 06/2021 15%, 09/2021 25% 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 Severe proximal to mid LAD stenosis. Severe ostial diagonal artery stenosis. 2. Successful revascularization of the LAD with orbital arthrectomy and PCI with JD x 2 including bifurcation stenting of mid LAD and diagonal artery using mini-crush technique (2 stents placed in LAD and 1 in diagonal artery). History of cholecystectomy History of colonoscopy with polypectomy 2017 History of left below knee amputation History of lumbar surgery Due to epidural abscess in March 2018 Peritoneal dialysis catheter in place removal 05/20/21 S/P hemodialysis catheter insertion multiple Family History Mother Cancer Uterine and breast cancer Father Diabetes Other CAD (coronary artery disease) Social History Smoking and tobacco status: never smoked Alcohol intake: current Alcohol intake frequency: holidays/special occasions only Marital status: Physical Exam Neuro: SEEMA COMA SCALE: document GCS findings Seema coma scale total score: 15 Course Reevaluation(s): Reevaluation #1: I am adding this note onto Magda Michelle's note as I have already completed a note for this chart and there is been some change in the patient's course. She was admitted initially admitted to the hospitalist service for additional treatment to include dialysis however the consulting ve teacher could not perform dialysis on the patient at this facility because of all his staff is sick with COVID-19 currently. There are no dialysis nurses available to perform the procedure. He then recommended transfer to a facility that could perform dialysis. The patient and I had a lengthy conversation with her present. I informed her that because of the lack of staff that she would need to be transferred to another facility presumably in [place] either at [facility] or [facility]. She acknowledged our recommendations but at this point she desires to be discharged from the hospital. I informed her that she has elevation in her potassium consistent with her chronic kidney disease as well as increasing BUN that will require dialysis to correct in addition she has an uncertain effusion versus infiltrate suggestive of possible infection this. This is not definitive for pneumonia but certainly suggestive of. She also has troponin elevations which are likely due to her chronic kidney disease with poor clearance however we cannot rule out that there is any ongoing ACS or other heart condition. I informed her that her desire to go home may result in the loss of her current lifestyle and even due to fatal arrhythmia, heart attack etc. She acknowledged our discussion and acknowledged the treatment options which at this point include transfer to a facility that can perform dialysis and continue to treat and monitor her condition. She voiced understanding that it could be fatal to her to go home at this time. Her was present and while he did not share her desire to go home he supported her decisions. She has intact decision capacity and can voiced understanding to me of her current condition as well as potential outcomes. Again acknowledged all of those. At this point I have told her she is welcome to return at any time. Her plan is to go to dialysis clinic to be dialyzed tomorrow. I will plan on prescribing her a antibiotic to cover for any potential infections as well. Time: 18:52 Vital Signs: Vital signs: Vital Signs Temperature 99.6 F 03/24/22 15:02 Pulse Rate 77 03/24/22 18:39 Respiratory Rate 20 H 03/24/22 18:39 Blood Pressure 112/60 03/24/22 18:39 Pulse Oximetry 96 03/24/22 18:39 [facility] [place] - General Adult Lab Data : 03/24/22 14:06 03/24/22 14:06 Radiology Impressions Chest X-Ray 03/24/22 13:26 IMPRESSION: 1. Small LEFT pleural effusion with pleural thickening and atelectasis. Very slight increase in size in the amount of pleural thickening since 01/18/2022. 2. Consolidation at the LEFT lung base may be atelectasis from the effusion or developing pneumonia. Abdomen/Pelvis CT 03/24/22 13:27 IMPRESSION: 1. Severe soft tissue anasarca with mesenteric edema and a small amount of ascites throughout the abdomen and pelvis. 2. Severe, extensive atherosclerotic changes throughout the aorta and the mesenteric arteries. 3. No GI tract ischemia or free air. Patient is at risk for ischemic bowel due to the extensive atherosclerotic changes within the aorta and mesenteric arteries. 4. No free air. 5. Indeterminate retroperitoneal lymph nodes measuring up to 12 mm. Decrease in size since the prior study of 01/18/2022. 6. Bilateral very small pleural effusions. Pleural thickening at the LEFT lung base similar to prior studies. Laboratory Results WBC 12.6 10^3/uL (4.0-10.0) H 03/24/22 14:06 RBC 2.83 10^6/uL (4.1-5.3) L 03/24/22 14:06 Hgb 9.1 g/dL (11.5-15.3) L 03/24/22 14:06 Hct 28.2 % (37.0-47.0) L 03/24/22 14:06 MCV 99.6 fl (81-99) H 03/24/22 14:06 MCH 32.2 pg (28.0-34.0) 03/24/22 14:06 MCHC 32.3 g/dL (30.0-36.0) 03/24/22 14:06 RDW 16.8 % (12.1-15.1) H 03/24/22 14:06 Plt Count 141 10^3/cmm (130-400) 03/24/22 14:06 MPV 10.6 fL (7.4-10.4) H 03/24/22 14:06 Neut % (Auto) 83.9 % 03/24/22 14:06 Lymph % (Auto) 3.7 % 03/24/22 14:06 [place] % (Auto) 10.1 % 03/24/22 14:06 Eos % (Auto) 0.8 % 03/24/22 14:06 Baso % (Auto) 0.3 % 03/24/22 14:06 Neut # (Auto) 10.58 10^3/uL (1.8-7.7) H 03/24/22 14:06 Lymph # (Auto) 0.5 10^3/uL (0.8-4.8) L 03/24/22 14:06 [place] # (Auto) 1.3 10^3/uL (0.2-0.9) H 03/24/22 14:06 Eos # (Auto) 0.1 10^3/uL (0.0-0.8) 03/24/22 14:06 Baso # (Auto) 0.0 10^3/uL (0.0-0.1) 03/24/22 14:06 Nucleated RBC % (auto) 0 % 03/24/22 14:06 Nucleated RBCs # 0.0 /100WBC 03/24/22 14:06 Sodium 131 mmol/L (136-145) L 03/24/22 14:06 Potassium 5.7 mmol/L (3.5-5.1) H 03/24/22 14:06 Chloride 91 mmol/L (98-107) L 03/24/22 14:06 Carbon Dioxide 21 mmol/L (22-29) L 03/24/22 14:06 Anion Gap 24.7 (5-19) H 03/24/22 14:06 BUN 78 mg/dL (6-20) H 03/24/22 14:06 Creatinine 10.0 mg/dL (0.5-0.9) H* 03/24/22 14:06 GFR Calculation 4.0 mL/min (90-130) L 03/24/22 14:06 Glucose 133 mg/dL (65-115) H 03/24/22 14:06 Calculated Osmolality 297 mOsm/kg (285-295) H 03/24/22 14:06 Lactic Acid 1.1 mmol/L (0.5-2.2) 03/24/22 14:06 Calcium 8.8 mg/dL (8.5-10.5) 03/24/22 14:06 Total Bilirubin 1.5 mg/dL (0.15-1.2) H 03/24/22 14:06 AST 11 U/L (0-32) 03/24/22 14:06 ALT 10 U/L (0-33) 03/24/22 14:06 Alkaline Phosphatase 153 IU/L (35-105) H 03/24/22 14:06 Troponin T Baseline 314 ng/L (0-10) H* 03/24/22 14:06 NT-Pro-B Natriuret Pep > 45682 pg/mL (0-125) H 03/24/22 14:06 Total Protein 7.3 g/dL (6.6-8.7) 03/24/22 14:06 Albumin 3.3 g/dL (3.5-5.2) L 03/24/22 14:06 Globulin 4.0 g/dL (1.3-4.6) 03/24/22 14:06 Discharge Plan Discharge Patient Disposition: Left Against Medical Advice Clinical Impression: ESRD (end stage renal disease), Hyperkalemia, Pneumonia Condition: Stable Prescriptions: New amoxicillin-pot clavulanate 875-125 mg tablet 1 tab PO Q12H Qty: 14 0RF No Action Synthroid 150 mcg tablet 150 mcg PO DAILY Qty: 30 5RF Rx Instructions: Take 1 tablet by mouth once daily gentamicin 0.1 % cream 1 applic topical TID PRN (Reason: Rash) 0RF nystatin 100,000 unit/gram cream 1 applic topical BID PRN (Reason: Rash) 0RF sodium bicarbonate 650 mg tablet 650 mg PO BID 0RF bumetanide 2 mg tablet 4 mg PO BID Qty: 120 3RF (DME) Stump Rn Transitional Care See Rx Instructions .Route .MEDSUPPLY Qty: 1 0RF Rx Instructions: As directed hydralazine 50 mg tablet 50 mg PO BID 0RF promethazine-DM 6.25-15 mg/5 mL syrup 5 ml PO Q6H PRN (Reason: cough) Qty: 160 0RF albuterol sulfate [ProAir HFA] 90 mcg/actuation Hfa Aerosol Inhaler 2 puff INHALATION Q4H PRN (Reason: Shortness Of Breath) 0RF RenaPlex-D 800 mcg-12.5 mg -2,000 unit tablet 1 tab PO DAILY 0RF clopidogrel 75 mg Tablet 75 mg PO DAILY 90 Days Qty: 90 2RF nitroglycerin 0.4 mg Tablet, Sublingual 0.4 mg sublingual Q5M PRN (Reason: Chest Pain) 30 Days Qty: 30 2RF aspirin [Children's Aspirin] 81 mg Tablet,Chewable 81 mg PO DAILY 90 Days Qty: 90 2RF doxazosin [Cardura] 2 mg tablet 8 mg PO BID 0RF psyllium husk [Metamucil] 0.4 gram Capsule 0.4 g PO DAILY 0RF ondansetron HCl 4 mg Tablet 8 mg PO Q8H PRN (Reason: Nausea And Vomiting) Qty: 10 0RF Tums Ultra 470 mg calcium (1,177 mg) tablet,chewable 3,531 mg PO TIDWM PRN (Reason: Heartburn) 0RF carvedilol [Coreg] 25 mg Tablet 25 mg PO BID 0RF Discharge Orders: Discharge ED (Routine); Ordered 03/24/22 Ordered By: Jake Cook Referrals: Karen Bear MD [Primary Care Provider] - Discharge Diet: Usual diet Discharge Activity: Resume usual activity Activity Restrictions/Additional Instructions: As we discussed you are leaving the emergency department against our recommendations. Please get to dialysis clinic tomorrow or soon as possible. We have provided a prescription for antibiotic to take as well. You are welcome to return to the emergency department anytime and we encourage you to do so. Stand Alone Forms: Against Medical Advice Coding Level of Care Code ED Stonework Supervisor for Gregorio Fwd Exam Comprehensive
[2022-03-24 13:38] VITALS: BP 127/68; PULSE 83; RESP 18; O2SAT 99
--- NOTE | 2022-03-24 14:18 | ED_ITS ---
HPI - General Adult General: Chief complaint: Shortness of Breath/Dyspnea Stated complaint: High HR Severe ABD Pain Time Seen by Provider: 03/24/22 13:15 Source: patient and family Mode of arrival: EMS Limitations: no limitations History of Present Illness: This patient presents to the emergency department because of not feeling well for the past several days. She has had some low- grade fevers at home and complains of increasing abdominal distention and discomfort. Patient is a has a history of chronic kidney disease and is on 3 times weekly hemodialysis via infusion catheter. She previously had peritoneal dialysis but that did not seem to work for her long-term so she has been switched to hemodialysis approximately 2 years ago. She states that she does not feel like they get enough fluid off of her during her dialysis episodes. She states that she never feels like she is completely dialyzed after her run. She states she does make some urine on her own and has been taking her Bumex as well. She states she has not felt like eating or drinking much over the past few days. She has a history of lymphedema as well as had a BKA on the left because of lymphedema complications. She is accompanied by her at this time. Associated symptoms: Reports decreased appetite; Deny chest pain, dyspnea, headache(s), rash, palpitations or vomiting Review of Systems Const: Reports: change in appetite and change in weight; Denies: fever(s) or chills Eyes: Denies: change in vision or blurry vision ENMT: Denies: throat pain or odynophagia Card: Reports: edema; Denies: chest pain, palpitations or irregular heart rhythm Resp: Reports: non-productive cough; Denies: dyspnea GI: Denies: abdominal pain, vomiting or change in bowel habits : Reports: oliguria; Denies: flank pain Musc: Reports: extremity pain and extremity swelling; Denies: neck pain or back pain Skin/Breast: Denies: rash, pruritus or erythema Neuro: Denies: headache(s), numbness in extremities, Slurred speech present or seizure-like activity Psych: Denies: anxiety or depression Jimmy/Lymph: Denies: easy bruising or easy bleeding PFS ED PFSH: Medical History Anemia Chronic kidney disease and blood loss, has previously required transfusion Aortic valve endocarditis (~04/2020) CAD (coronary artery disease) Charcot's joint of foot in type 2 diabetes mellitus Congestive heart failure systolic Diabetes Diabetes mellitus type 2, not on medications, HbA1c 10/2021 5.2 Diabetic ulcer of left foot Diabetic ulcer of right foot Difficult intravenous access Epidural abscess (~2017) ESRD (end stage renal disease) previously on peritoneal dialysis currently on hemodialysis History of colon polyps History of MRSA infection spinal abscess 2017 Hyperlipidemia Hypertension Hypothyroidism Ischemic cardiomyopathy EF 05/2020 65% >> 06/2021 15%, 09/2021 25% 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 Severe proximal to mid LAD stenosis. Severe ostial diagonal artery stenosis. 2. Successful revascularization of the LAD with orbital arthrectomy and PCI with JD x 2 including bifurcation stenting of mid LAD and diagonal artery using mini-crush technique (2 stents placed in LAD and 1 in diagonal artery). History of cholecystectomy History of colonoscopy with polypectomy 2017 History of left below knee amputation History of lumbar surgery Due to epidural abscess in March 2018 Peritoneal dialysis catheter in place removal 05/20/21 S/P hemodialysis catheter insertion multiple Family History Mother Cancer Uterine and breast cancer Father Diabetes Other CAD (coronary artery disease) Social History Smoking and tobacco status: never smoked Alcohol intake: current Alcohol intake frequency: holidays/special occasions only Marital status: Physical Exam Narrative: EXAM NARRATIVE: Patient makes good eye contact. She answers questions in the goal-directed and cooperative fashion. Const: COMMON NORMALS: no acute distress, patient oriented x3 and alert NUTRITIONAL APPEARANCE: overweight HENMT: COMMON NORMALS: normocephalic, atraumatic, Normal nasal mucous membranes and turbinates present and moist oral mucous membranes HEAD & SCALP: normocephalic and atraumatic NOSE: Normal nasal mucous membranes and turbinates present Eye: COMMON NORMALS: Equal, round and reactive pupils present and EOMs intact bilaterally SCLERA: scleral abnormal (Mild scleral icterus) PUPIL: Yes Equal, round and reactive pupils present Neck/C-Spine: COMMON NORMALS: full ROM, no JVD and No carotid bruits Lymph: LYMPHATIC: no lymphedema noted lymphedema laterality: right (Lower extremity) Chest: COMMONS NORMALS: normal inspection of the chest (Has a dialysis catheter right upper chest without any erythema.) and normal palpation of entire chest wall Resp: COMMON NORMALS: normal respiratory effort, No retractions, No use of accessory muscles and clear to auscultation bilaterally AUSCULTATION: clear to auscultation bilaterally Cardio: COMMON NORMALS: no JVD, regular rate, regular rhythm and No murmurs present (Cardio) RATE: regular rate RHYTHM: regular rhythm GI: INSPECTION: Yes Anasarca and Yes central obesity PALPATION: Yes T enderness to palpation present (GI), No Guarding due to palpation present (GI), No Rigid due to palpation and No Hernia present : COMMON NORMALS: Yes no CVA tenderness BLADDER/KIDNEY EXAM: Yes no CVA tenderness EXTERNAL FEMALE EXAM: No Hernia present Back/Pelvis: COMMON NORMALS: no CVA tenderness, thoracic and lumbar spine normal to inspection and thoraco-lumbar ROM normal Extremity: COMMON NORMALS: capillary refill normal NARRATIVE EXTREMITY EXAM: Patient has notable edema of the right lower extremity. She has a AKA of left lower extremity. Her upper extremities are normal in appearance and range of motion without deformity. Capillary refill is normal. Neuro: COMMON NORMALS: patient oriented x3, moves all extremities, no focal motor deficits and no sensory deficits noted SENSORIUM/ORIENTATION: Yes alert Psych: COMMON NORMALS: mental status grossly normal Skin: COMMON NORMALS: no rashes or lesions noted, no wounds and no petechiae GENERAL SKIN EXAM: no rashes or lesions noted Course Reevaluation(s): Reevaluation #1: Discussed with on-call hospitalist. He agreed except the patient request I call nephrology. We will also go ahead and give her a 2 g loading dose of vancomycin because of her recent hospitalization and concerns about her possible pneumonia. Time: 16:27 Consultations: Consultation #1: On-call hospitalist Dr. Michael who agreed accept the patient. He asked that we call nephrology that call was placed. Time: 16:28 Vital Signs: Vital signs: Vital Signs Temperature 99.6 F 03/24/22 15:02 Pulse Rate 83 03/24/22 15:02 Respiratory Rate 22 H 03/24/22 15:02 Blood Pressure 112/64 03/24/22 15:02 Pulse Oximetry 97 03/24/22 15:02 [facility] - General Adult Medical Decision Making Patient with chronic kidney disease who has missed dialysis for over a week. She also has chest x-ray which suggests lower lobe infiltrates. She has subjective increasing shortness of breath and dyspnea which is likely related to her she will need to be admitted for dialysis and further evaluation.central obesity and increased anasarca and fluid retention due to missed dialysis but certainly pneumonia is a possibility. We will go ahead and initiate antibiotic coverage for possible pneumonia. Medical Records I reviewed the patient's medical records. Lab Data I reviewed the patient's lab results. : 03/24/22 14:06 03/24/22 14:06 Radiology Impressions Chest X-Ray 03/24/22 13:26 IMPRESSION: 1. Small LEFT pleural effusion with pleural thickening and atelectasis. Very slight increase in size in the amount of pleural thickening since 01/18/2022. 2. Consolidation at the LEFT lung base may be atelectasis from the effusion or developing pneumonia. Abdomen/Pelvis CT 03/24/22 13:27 IMPRESSION: 1. Severe soft tissue anasarca with mesenteric edema and a small amount of ascites throughout the abdomen and pelvis. 2. Severe, extensive atherosclerotic changes throughout the aorta and the mesenteric arteries. 3. No GI tract ischemia or free air. Patient is at risk for ischemic bowel due to the extensive atherosclerotic changes within the aorta and mesenteric arteries. 4. No free air. 5. Indeterminate retroperitoneal lymph nodes measuring up to 12 mm. Decrease in size since the prior study of 01/18/2022. 6. Bilateral very small pleural effusions. Pleural thickening at the LEFT lung base similar to prior studies. Laboratory Results WBC 12.6 10^3/uL (4.0-10.0) H 03/24/22 14:06 RBC 2.83 10^6/uL (4.1-5.3) L 03/24/22 14:06 Hgb 9.1 g/dL (11.5-15.3) L 03/24/22 14:06 Hct 28.2 % (37.0-47.0) L 03/24/22 14:06 MCV 99.6 fl (81-99) H 03/24/22 14:06 MCH 32.2 pg (28.0-34.0) 03/24/22 14:06 MCHC 32.3 g/dL (30.0-36.0) 03/24/22 14:06 RDW 16.8 % (12.1-15.1) H 03/24/22 14:06 Plt Count 141 10^3/cmm (130-400) 03/24/22 14:06 MPV 10.6 fL (7.4-10.4) H 03/24/22 14:06 Neut % (Auto) 83.9 % 03/24/22 14:06 Lymph % (Auto) 3.7 % 03/24/22 14:06 Braxton % (Auto) 10.1 % 03/24/22 14:06 Eos % (Auto) 0.8 % 03/24/22 14:06 Baso % (Auto) 0.3 % 03/24/22 14:06 Neut # (Auto) 10.58 10^3/uL (1.8-7.7) H 03/24/22 14:06 Lymph # (Auto) 0.5 10^3/uL (0.8-4.8) L 03/24/22 14:06 Braxton # (Auto) 1.3 10^3/uL (0.2-0.9) H 03/24/22 14:06 Eos # (Auto) 0.1 10^3/uL (0.0-0.8) 03/24/22 14:06 Baso # (Auto) 0.0 10^3/uL (0.0-0.1) 03/24/22 14:06 Nucleated RBC % (auto) 0 % 03/24/22 14:06 Nucleated RBCs # 0.0 /100WBC 03/24/22 14:06 Sodium 131 mmol/L (136-145) L 03/24/22 14:06 Potassium 5.7 mmol/L (3.5-5.1) H 03/24/22 14:06 Chloride 91 mmol/L (98-107) L 03/24/22 14:06 Carbon Dioxide 21 mmol/L (22-29) L 03/24/22 14:06 Anion Gap 24.7 (5-19) H 03/24/22 14:06 BUN 78 mg/dL (6-20) H 03/24/22 14:06 Creatinine 10.0 mg/dL (0.5-0.9) H* 03/24/22 14:06 GFR Calculation 4.0 mL/min (90-130) L 03/24/22 14:06 Glucose 133 mg/dL (65-115) H 03/24/22 14:06 Calculated Osmolality 297 mOsm/kg (285-295) H 03/24/22 14:06 Lactic Acid 1.1 mmol/L (0.5-2.2) 03/24/22 14:06 Calcium 8.8 mg/dL (8.5-10.5) 03/24/22 14:06 Total Bilirubin 1.5 mg/dL (0.15-1.2) H 03/24/22 14:06 AST 11 U/L (0-32) 03/24/22 14:06 ALT 10 U/L (0-33) 03/24/22 14:06 Alkaline Phosphatase 153 IU/L (35-105) H 03/24/22 14:06 NT-Pro-B Natriuret Pep > 23050 pg/mL (0-125) H 03/24/22 14:06 Total Protein 7.3 g/dL (6.6-8.7) 03/24/22 14:06 Albumin 3.3 g/dL (3.5-5.2) L 03/24/22 14:06 Globulin 4.0 g/dL (1.3-4.6) 03/24/22 14:06 EKG Data EKG 1: EKG interpretation time: 15:58 Interpretation: Contemporaneous EKG interpretation reveals ventricular rate of 81 bpm. MS interval and QRS duration are normal. Curate QTc intervals also normal. She does have a leftward axis as well as slight increase in P wave limb lead II suggestive of left atrial enlargement. She has some nonspecific ST-T wave changes in V5 and V6 but otherwise no acute ST wave changes or abnormal T waves, arrhythmias etc. Computer generated interpretation: Chest X-Ray 03/24/22 13:26 IMPRESSION: 1. Small LEFT pleural effusion with pleural thickening and atelectasis. Very slight increase in size in the amount of pleural thickening since 01/18/2022. 2. Consolidation at the LEFT lung base may be atelectasis from the effusion or developing pneumonia. Abdomen/Pelvis CT 03/24/22 13:27 IMPRESSION: 1. Severe soft tissue anasarca with mesenteric edema and a small amount of ascites throughout the abdomen and pelvis. 2. Severe, extensive atherosclerotic changes throughout the aorta and the mesenteric arteries. 3. No GI tract ischemia or free air. Patient is at risk for ischemic bowel due to the extensive atherosclerotic changes within the aorta and mesenteric arteries. 4. No free air. 5. Indeterminate retroperitoneal lymph nodes measuring up to 12 mm. Decrease in size since the prior study of 01/18/2022. 6. Bilateral very small pleural effusions. Pleural thickening at the LEFT lung base similar to prior studies. Discharge Plan Discharge Patient Disposition: Admitted As Inpatient Clinical Impression: ESRD (end stage renal disease), Hyperkalemia, Pneumonia Condition: Stable Coding Level of Care Code ED Maintenance Supervisor 2Nd Shift for Gregorio Fwkaris Exam Comprehensive
[2022-03-24 14:21] LABS: Basophils % 0.3 %; Eosinophils # 0.1 10^3/uL (0.0-0.8); Eosinophils % 0.8 %; Hematocrit 28.2 % (37.0-47.0); Hemoglobin 9.1 g/dL (11.5-15.3); Lymphocytes # 0.5 10^3/uL (0.8-4.8); Lymphocytes % 3.7 %; Mean Corpuscular HGB Conc 32.3 g/dL (30.0-36.0); Mean Corpuscular Hemoglobin 32.2 pg (28.0-34.0); Mean Corpuscular Volume 99.6 fl (81-99); Mean Platelet Volume 10.6 fL (7.4-10.4); Monocytes # 1.3 10^3/uL (0.2-0.9); Monocytes % 10.1 %; Neutrophils # 10.58 10^3/uL (1.8-7.7); Neutrophils % 83.9 %; Nucleated Red Blood Cells % 0 %; Platelet Count 141 10^3/cmm (130-400); Red Blood Count 2.83 10^6/uL (4.1-5.3); Red Cell Distribution Width 16.8 % (12.1-15.1); White Blood Count 12.6 10^3/uL (4.0-10.0)
[2022-03-24] MEDS: promethazine 25 mg/mL SDV 1 mL IM (14:23)
[2022-03-24 14:33] LABS: Lactic Sepsis W/Reflex 1.1 mmol/L (0.5-2.2)
[2022-03-24 14:44] LABS: Alanine Aminotransferase 10 U/L (0-33); Albumin Level 3.3 g/dL (3.5-5.2); Alkaline Phosphatase 153 IU/L (35-105); Anion Gap 24.7 (5-19); Aspartate Amino Transferase 11 U/L (0-32); Blood Urea Nitrogen 78 mg/dL (6-20); Calcium 8.8 mg/dL (8.5-10.5); Carbon Dioxide 21 mmol/L (22-29); Chloride 91 mmol/L (98-107); Glucose 133 mg/dL (65-115); Osmolality Calculated 297 mOsm/kg (285-295); Potassium 5.7 mmol/L (3.5-5.1); Sodium 131 mmol/L (136-145); Total Bilirubin 1.5 mg/dL (0.15-1.2); Total Protein 7.3 g/dL (6.6-8.7)
[2022-03-24 15:02] VITALS: BP 112/64; PULSE 83; RESP 22; TEMP 37.6; O2SAT 97
[2022-03-24 15:21] LABS: NT Pro B Type Natriuretic Pept > 70000 pg/mL (0-125)
[2022-03-24] MEDS: cefTRIAXone 2,000 MG in sodium chloride 0.9% (plus) 50 ML 100 MG IV (15:23)
--- NOTE | 2022-03-24 15:31 | ECG_ITS ---
[facility] Test Date: 2022-03-24 Pat Name: Alesia Shaw Department: Room: Gender: Female Senior Mainframe Developer: : 1960 Requested By: Jake Cook Order Number: [id number] Leah MD: Elizabeth Gaines M.D. Measurements Intervals [place] Rate: 81 P: 60 WA: 199 QRS: -34 QRSD: 125 T: 117 QT: 379 QTc: 441 Interpretive Statements SINUS RHYTHM POSSIBLE LEFT ATRIAL ENLARGEMENT [-0.1mV P-WAVE IN V1/V2] LEFT AXIS DEVIATION [QRS AXIS < -30] MODERATE INTRAVENTRICULAR CONDUCTION DELAY [110+ ms QRS DURATION] ST DEVIATION AND MODERATE T-WAVE ABNORMALITY, CONSIDER LATERAL ISCHEMIA [-0.1+ mV T-WAVE IN I/aVL/V5/V6] Compared to ECG 01/18/2022 17:38:37 T-wave abnormality now present Possible ischemia now present First degree AV block no longer present Electronically Signed On 03-25-2022 0:00:43 CDT by Elizabeth Gaines M.D. [id number]
--- NOTE | 2022-03-24 17:43 | PM.CONSULT ---
Providers/Reason For Consult Consulting Physician/Specialty*: dex dowd md / telenephrology Reason for Consult*: ESRD care Requesting Physician: Dr Jake Cook Primary Care Provider: Karen Bear MD History of Present Illness History of Present Illness Alesia Shaw is a 61 year old female with a history of ESRD on HD MWF via tunneled Rt IJ catheter, hypertension, type 2 diabetes, HFrEF, CAD s/p stents,chronic leg swelling/ lymphedema, Left BKA,, hypothyroidism, spinal abscess with MRSA Multiple hospitalizations for edema, and missing HD. Pt is in ER for missing HD for a week. Pt has nausea, weakness, diarrhea, edema, SOB, ARANGO, poor appetite, and weak. Renal called to provide ESRD care. Review of Systems General: Reports: 10 or more systems reviewed and unremarkable except in HPI and below Narrative: weak, headace, sob, swollen, nausea, itching, lethargic, severe diarrhea Medications/Allergies Home Medications Medication Instructions Recorded Confirmed Last Taken Type Stump Track Fitter #1 ea 01/12/21 03/24/22 07/20/21 Rx carvedilol 25 mg tablet (Coreg) 25 mg PO BID 05/19/21 03/24/22 03/23/22 History albuterol sulfate 90 mcg/actuation 2 puff INHALATION Q4H PRN 06/13/21 03/24/22 07/20/21 History aerosol inhaler (ProAir HFA) vit B,C-folic ac 800 mcg-zinc 12.5 1 tab PO DAILY 06/13/21 03/24/22 03/23/22 History mg-selen-D3 2,000 unit-vit E tablet (RenaPlex-D) aspirin 81 mg chewable tablet 81 mg PO DAILY 90 Days #90 tab 06/22/21 03/24/22 03/23/22 Rx (Children's Aspirin) clopidogrel 75 mg tablet 75 mg PO DAILY 90 Days #90 tab 06/22/21 03/24/22 03/23/22 Rx nitroglycerin 0.4 mg sublingual 0.4 mg SUBLINGUAL Q5M PRN 30 Days 06/22/21 03/24/22 07/20/21 Rx tablet #30 tab levothyroxine 150 mcg tablet 150 mcg PO DAILY #30 tab 10/14/21 03/24/22 03/23/22 Rx (Synthroid) doxazosin 2 mg tablet (Cardura) 8 mg PO BID tab 11/16/21 03/24/22 03/23/22 History psyllium husk 0.4 gram capsule 0.4 g PO DAILY 11/23/21 03/24/22 03/23/22 History (Metamucil) ondansetron HCl 4 mg tablet 8 mg PO Q8H PRN #10 tab 11/28/21 03/24/22 Unknown Rx promethazine-DM 6.25 mg-15 mg/5 mL 5 ml PO Q6H PRN #160 ml 12/10/21 03/24/22 Unknown Rx oral syrup calcium carbonate 470 mg calcium 3,531 mg PO TIDWM PRN 12/25/21 03/24/22 01/17/22 History (1,177 mg) chewable tablet (Tums Ultra) bumetanide 2 mg tablet 4 mg PO BID #120 tab 03/10/22 03/24/22 03/23/22 Rx gentamicin 0.1 % topical cream 1 applic TOPICAL TID PRN g 03/10/22 03/24/22 Unknown History hydralazine 50 mg tablet 50 mg PO BID tab 03/10/22 03/24/22 03/23/22 History nystatin 100,000 unit/gram topical 1 applic TOPICAL BID PRN g 03/10/22 03/24/22 Unknown History cream sodium bicarbonate 650 mg tablet 650 mg PO BID 03/10/22 03/24/22 03/23/22 History Allergies Allergy/AdvReac Type Severity Reaction Status Date / Time Iodinated Contrast Media Allergy ALGY-Hives Verified 02/15/22 13:49 Current Medications Generic Name Dose Route Start Last Admin Trade Name Freq PRN Reason Stop Dose Admin Vancomycin HCl 2,000 mg/ 500 mls @ 250 mls/hr 03/24/22 16:23 03/24/22 17:18 Sodium Chloride IV 03/24/22 18:22 250 mls/hr ONCE ONE Administration Protocol PFSH Acute PFSH: Medical History Anemia Chronic kidney disease and blood loss, has previously required transfusion Aortic valve endocarditis (~04/2020) CAD (coronary artery disease) Charcot's joint of foot in type 2 diabetes mellitus Congestive heart failure systolic Diabetes Diabetes mellitus type 2, not on medications, HbA1c 10/2021 5.2 Diabetic ulcer of left foot Diabetic ulcer of right foot Difficult intravenous access Epidural abscess (~2017) ESRD (end stage renal disease) previously on peritoneal dialysis currently on hemodialysis History of colon polyps History of MRSA infection spinal abscess 2017 Hyperlipidemia Hypertension Hypothyroidism Ischemic cardiomyopathy EF 05/2020 65% >> 06/2021 15%, 09/2021 25% 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 Severe proximal to mid LAD stenosis. Severe ostial diagonal artery stenosis. 2. Successful revascularization of the LAD with orbital arthrectomy and PCI with JD x 2 including bifurcation stenting of mid LAD and diagonal artery using mini-crush technique (2 stents placed in LAD and 1 in diagonal artery). History of cholecystectomy History of colonoscopy with polypectomy 2017 History of left below knee amputation History of lumbar surgery Due to epidural abscess in March 2018 Peritoneal dialysis catheter in place removal 05/20/21 S/P hemodialysis catheter insertion multiple Family History Mother Cancer Uterine and breast cancer Father Diabetes Other CAD (coronary artery disease) Social History Smoking and tobacco status: never smoked Alcohol intake: current Alcohol intake frequency: holidays/special occasions only Marital status: Vitals/I&O/Wt Last Vital Signs Temp 99.6 F 03/24/22 15:02 Pulse 83 03/24/22 15:02 Resp 22 H 03/24/22 15:02 BP 112/64 03/24/22 15:02 Pulse Ox 97 03/24/22 15:02 03/24/22 03/24/22 03/24/22 06:59 14:59 22:59 Intake Total 50 / 50 Balance 50 / 50 Weight last 48 hrs Weight 101.605 kg Physical Exam Narrative: vs noted obese, uncomfortable heent- nc/at, eomi, anicteric neck supple rt IJ Permacath lungs dull bases and crackles heart reg abd soft, nt, nd, + bs ext b/l edema Left bka, tremors neuro- a,a, o x 3 Data : 03/24/22 14:06 03/24/22 14:06 Micro: Microbiology 03/24/22 14:06 Blood Culture - Preliminary Blood SPECIMEN COLLECTED 03/24/22 13:56 Blood Culture - Preliminary Blood SPECIMEN COLLECTED A&P Assessment and plan (1) ESRD (end stage renal disease): 61 yeaR OLD FEMALE ESRD 1. ESRD- pt needs dialysis for edema, sob, hyperkalemia - Unfortunately 2 of the dialysis nurses are sick w/ fevers and chills and are under isolation for presumed COVID- 19. We need to transfer the pt for HD. This was explained to the pt and Dr. Cook. -will give d50, reg insulin, bumex 2. BP low, edema, missed HD- would recommend a cardiac echo to evaluate for effusion BNP >70,000- echo and needs HD and bumex 3. diarrhea- Has had multiple abx and hospitalizations- consider stool for c diff -pt has a leukocytosis 4. Q effusion vs pna 5. anemia of ESRD - can check iron studies and give GARRETT 6.hyponatremia- from ESRD and volume overload- monitor w/ HD 7. hyperkalemia- D50, reg insulin -please transfer pt for HD 8. DM care per PMD seen and examined w/ bedside media center director school- telehealth visit informed consent for Telehealth obtained time spent seeing pt and coordinating care =50+ minutes Status: Chronic Plan see above Consult Attestations Medical Necessity Statement: ESRD, anasarca, CHF, hyperkalemia Time Spent in Patient Care: Greater than 35 minutes (>than 50% of time spent in counselling and/or direct pt care on unit). Coding Level of Care Code Acute Peoplesoft Administrator for Chg Fwd Diagnoses ESRD (end stage renal disease) N18.6
--- NOTE | 2022-03-24 17:44 | ECG_ITS ---
[facility] Test Date: 2022-03-24 Pat Name: Alesia Shaw Department: Room: Gender: Female Help Desk Internship: : 1960 Requested By: Arnold Hernandez Order Number: [id number] Reading MD: Elizabeth Gaines M.D. Measurements Intervals [place] Rate: 77 P: 50 DC: 196 QRS: -37 QRSD: 125 T: 110 QT: 379 QTc: 431 Interpretive Statements SINUS RHYTHM POSSIBLE LEFT ATRIAL ENLARGEMENT [-0.1mV P-WAVE IN V1/V2] LEFT AXIS DEVIATION [QRS AXIS < -30] MODERATE INTRAVENTRICULAR CONDUCTION DELAY [110+ ms QRS DURATION] ST DEVIATION AND MODERATE T-WAVE ABNORMALITY, CONSIDER LATERAL ISCHEMIA [-0.1+ mV T-WAVE IN I/aVL/V5/V6] Compared to ECG 03/24/2022 15:51:17 No significant changes Electronically Signed On 03-25-2022 0:01:15 CDT by Elizabeth Gaines M.D. [id number]
[2022-03-24 18:19] LABS: Troponin(5th) Baseline 314 ng/L (0-10)
[2022-03-24 18:39] VITALS: BP 112/60; PULSE 77; RESP 20; O2SAT 96
--- NOTE | 2022-03-24 19:10 | PC.NURSE ---
Patient was advised about the risk with leaving AMA, a risk that includes . Patient stated she is aware of the risk and still wants to leave AMA.
== END 2022-03-24 19:27 | disposition left against medical advice (07) ==
PROVIDERS: Internal Medicine; Emergency Provider Physician Assistant; PCP Family Medicine
DX: E11.22 Type 2 diabetes mellitus with diabetic chronic kidney disease (principal); I13.2 Hypertensive heart and chronic kidney disease with heart failure and with stage 5 chronic kidney disease, or end stage renal disease; I50.22 Chronic systolic (congestive) heart failure; N18.6 End stage renal disease; E87.5 Hyperkalemia; J18.9 Pneumonia, unspecified organism; Z53.29 Procedure and treatment not carried out because of patient's decision for other reasons; I25.10 Atherosclerotic heart disease of native coronary artery without angina pectoris; I95.9 Hypotension, unspecified; R19.7 Diarrhea, unspecified; E87.1 Hypo-osmolality and hyponatremia; E66.8 Other obesity; Z68.36 Body mass index [BMI] 36.0-36.9, adult; Z99.2 Dependence on renal dialysis; Z79.02 Long term (current) use of antithrombotics/antiplatelets; Z95.5 Presence of coronary angioplasty implant and graft; Z89.512 Acquired absence of left leg below knee; Z91.15 Patient's noncompliance with renal dialysis
CPT/HCPCS: 36415; 71045; 74176; 80053; 83605; 83880; 84484; 85025; 87040; 93005; 96365; 96367; 96372; 99285; J0696; J2550; J3370; J7040

== ENCOUNTER 2022-03-25 12:08 | Emergency (ER) | payer MEDICARE, MEDICAID, SELFPAY ==
--- NOTE | 2022-03-25 12:14 | ED_ITS ---
HPI - Nausea/Vomiting/Diarrhea General: Chief complaint: General Medical Stated complaint: generalized weakness, n/v Time Seen by Provider: 03/25/22 12:13 History of Present Illness: Ms. Shaw is a 61-year-old lady with complex past medical history including end-stage renal disease on dialysis who presents to the emergency department due to weakness and nausea vomiting. The patient was seen and evaluated yesterday for similar complaints and needed emergent dialysis for hyperkalemia however we did not have a dialysis nurse available and the patient left AGAINST MEDICAL ADVICE instead of being transferred to another facility. She was instructed at that time to obtain dialysis today however she did not and instead was brought here to the emergency department. There are no acute events since yesterday however the patient continues to feel ill with nausea, vomiting, and generalized weakness. She additionally endorses concern regarding abdominal wall pain on her lower abdomen. She does not recall discussion of her results yesterday/did not understand them and denies any acute change regarding bowel habits or ability to have bowel movements. Overall course of symptoms has worsened. Intensity is moderate to severe. No other specific changes in health, exacerbating, or alleviating factors identified. Onset (ago): day(s) Description of diarrhea: watery Associated nausea: Yes Associated abdominal pain: Yes Location of pain: RLQ, LLQ and Suprapubic Pain consistency: constant Severity: moderate Quality: cramping and aching Exacerbating factors: other (Palpation) Associated symtoms: Reports nausea Review of Systems General: Reports: 10 or more systems reviewed and unremarkable except in HPI and below GI: Reports: nausea [facility] ED PFSH: Medical History Anemia Chronic kidney disease and blood loss, has previously required transfusion Aortic valve endocarditis (~04/2020) CAD (coronary artery disease) Charcot's joint of foot in type 2 diabetes mellitus Congestive heart failure systolic Diabetes Diabetes mellitus type 2, not on medications, HbA1c 10/2021 5.2 Diabetic ulcer of left foot Diabetic ulcer of right foot Difficult intravenous access Epidural abscess (~2017) ESRD (end stage renal disease) previously on peritoneal dialysis currently on hemodialysis History of colon polyps History of MRSA infection spinal abscess 2017 Hyperlipidemia Hypertension Hypothyroidism Ischemic cardiomyopathy EF 05/2020 65% >> 06/2021 15%, 09/2021 25% 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 Severe proximal to mid LAD stenosis. Severe ostial diagonal artery stenosis. 2. Successful revascularization of the LAD with orbital arthrectomy and PCI with JD x 2 including bifurcation stenting of mid LAD and diagonal artery using mini-crush technique (2 stents placed in LAD and 1 in diagonal artery). History of cholecystectomy History of colonoscopy with polypectomy 2017 History of left below knee amputation History of lumbar surgery Due to epidural abscess in March 2018 Peritoneal dialysis catheter in place removal 05/20/21 S/P hemodialysis catheter insertion multiple Family History Mother Cancer Uterine and breast cancer Father Diabetes Other CAD (coronary artery disease) Social History Smoking and tobacco status: never smoked Alcohol intake: current Alcohol intake frequency: holidays/special occasions only Marital status: Physical Exam Const: COMMON NORMALS: alert GENERAL APPEARANCE: cooperative and ill appearing HENMT: COMMON NORMALS: normocephalic and atraumatic HEAD & SCALP: normocephalic and atraumatic Eye: COMMON NORMALS: conjunctivae normal CONJUNCTIVA: Yes conjunctivae normal Neck/C-Spine: COMMON NORMALS: supple GENERAL: Yes trachea midline Resp: EFFORT & INSPECTION: Yes able to speak in complete sentences AUSCULTATION: diminished lung sounds bilateral in the lower lung martin Cardio: COMMON NORMALS: regular rate and regular rhythm RATE: regular rate RHYTHM: regular rhythm GI: COMMON NORMALS: Soft to palpation PALPATION: Yes Soft to palpation, Yes Tenderness to palpation present (GI), No Guarding due to palpation present (GI) and No Rigid due to palpation PERCUSSION: normal to percussion Extremity: GENERAL: Yes amputation (Left BKA) and Yes edema Neuro: COMMON NORMALS: moves all extremities SENSORIUM/ORIENTATION: Yes alert and No Orientation impaired Psych: COMMON NORMALS: mental status grossly normal and Normal thought process present THOUGHT PROCESS: Normal thought process present Skin: NARRATIVE SKIN EXAM: Skin changes consistent with stasis/volume overload Course ED course: - Patient was seen and evaluated by me at bedside - Patient placed on cardiac monitors, IV access obtained - Initial evaluation notable for exam as above. Patient appears clinically volume overload end, chronically ill appearance. Nonfocal neurologic exam. - Labs personally interpreted by me. EKG reviewed, No stemi - Labs notable for leukocytosis which is mildly improved compared to yesterday. Roughly hemoglobin at 9.1 likely secondary to anemia of chronic kidney disease. Metabolic panel with hyperkalemia at 5.7 in addition to progression of BUN elevation 87. T bili is increasing to 2.0, as recently as January 19 it was normal and this is increased from 1.5 yesterday. The exact etiology of this is uncert ain based on ED evaluation. CT scan was notable for prior cholecystectomy and though the patient does report abdominal pain this does not appear to be acutely worse and is not specifically isolated right upper quadrant. Patient was sent home with prescription for antibiotics for possible pneumonia, blood cultures obtained yesterday and given vital signs and clinical exam with history I do not feel that repeat blood cultures are needed at this time. - Imaging from previous day reviewed, I do not feel based on clinical exam and provided history that repeat CT scan is warranted of the abdomen. Etiology of pain is likely body wall edema/anasarca. As the patient continues to have shortness of breath and oxygen requirement above baseline I did order a repeat x-ray however the patient refused this. - Upon serial reexamination after treatment the patient was improved with regards to overall clinical appearance - Based on patient history, evaluation, and testing as interpreted the most lik gabby cause of the patient's condition is symptoms related to end-stage renal disease needing emergent dialysis. Unfortunately the patient did not receive dialysis today, and dialysis is only available in [facility] Monday and we are not able to arrange for outpatient dialysis this afternoon even if it were appropriate. - The results of ED evaluation were discussed with the patient including need for admission for emergent dialysis. - Patient and her family requesting transfer to [place] for additional care. I did discuss that I believe treatment would be similar however they are adamant regarding transfer. - Discussed case with hospitalist service at [facility] who accepted the patient. - Patient transferred via EMS and left the emergency department in satisfactory condition. Note: Click bubbles or prepopulated martin in note writing are used for assistance with data collection and billing and are inherently more limited than narrative and other text portions of this note. Please use narrative for additional clinical history and defer to narrative/free test for any case of contradictory information. If information appears in only free text or click bubble it should be considered present or absent as reported. Please contact note bond writer for clarifications of clinical information or contradictory information. MDM is a brief summary, contradictory or erroneous seeming information should be clarified and full note should be reviewed. Vital Signs: Vital signs: Vital Signs Temperature 98.3 F 03/25/22 12:30 Pulse Rate 73 03/25/22 21:07 Respiratory Rate 17 03/25/22 21:07 Blood Pressure 119/59 03/25/22 21:07 Pulse Oximetry 98 03/25/22 21:07 MDM - Nausea/Vomiting/Diarrhea Medical Decision Making 61-year-old lady with complex past medical history including end-stage renal disease presenting to the emergency department for need for dialysis. Patient notes nausea, vomiting, generalized malaise. She was seen yesterday and left AGAINST MEDICAL ADVICE as we do not have ability to perform dialysis. She did not obtain outpatient dialysis today and returns for worsening overall feeling. Patient still requires emergent dialysis due to hyperkalemia and likely uremic symptoms however desires transfer at this time and declines admission at this facility. Transferred for emergent dialysis via EMS to [facility] in [place]. Medical Records I reviewed the patient's medical records. Lab Data I reviewed the patient's lab results. : 03/25/22 13:25 03/25/22 13:25 Laboratory Results WBC 11.3 10^3/uL (4.0-10.0) H 03/25/22 13: RBC 2.82 10^6/uL (4.1-5.3) L 03/25/22 13:25 Hgb 9.1 g/dL (11.5-15.3) L 03/25/22 13:25 Hct 27.6 % (37.0-47.0) L 03/25/22 13: MCV 97.9 fl (81-99) 03/25/22 13: MCH 32.3 pg (28.0-34.0) 03/25/22 13: MCHC 33.0 g/dL (30.0-36.0) 03/25/22 13: RDW 16.8 % (12.1-15.1) H 03/25/22 13:25 Plt Count 131 10^3/cmm (130-400) 03/25/22 13:25 MPV 10.6 fL (7.4-10.4) H 03/25/22 13:25 Neut % (Auto) 84.9 % 03/25/22 13:25 Lymph % (Auto) 3.3 % 03/25/22 13:25 [place] % (Auto) 8.8 % 03/25/22 13:25 Eos % (Auto) 0.9 % 03/25/22 13:25 Baso % (Auto) 0.3 % 03/25/22 13:25 Neut # (Auto) 9.64 10^3/uL (1.8-7.7) H 03/25/22 13:25 Lymph # (Auto) 0.4 10^3/uL (0.8-4.8) L 03/25/22 13:25 [place] # (Auto) 1.0 10^3/uL (0.2-0.9) H 03/25/22 13:25 Eos # (Auto) 0.1 10^3/uL (0.0-0.8) 03/25/22 13:25 Baso # (Auto) 0.0 10^3/uL (0.0-0.1) 03/25/22 13: Nucleated RBC % (auto) 0 % 03/25/22 13: Nucleated RBCs # 0.0 /100WBC 03/25/22 13:25 Sodium 132 mmol/L (136-145) L 03/25/22 13:25 Potassium 5.7 mmol/L (3.5-5.1) H 03/25/22 13:25 Chloride 91 mmol/L (98-107) L 03/25/22 13:25 Carbon Dioxide 20 mmol/L (22-29) L 03/25/22 13:25 Anion Gap 26.7 (5-19) H 03/25/22 13:25 BUN 87 mg/dL (6-20) H* 03/25/22 13:25 Creatinine 10.4 mg/dL (0.5-0.9) H* 03/25/22 13:25 GFR Calculation 3.8 mL/min (90-130) L 03/25/22 13:25 Glucose 108 mg/dL (65-115) 03/25/22 13:25 Calculated Osmolality 301 mOsm/kg (285-295) H 03/25/22 13:25 Calcium 9.0 mg/dL (8.5-10.5) 03/25/22 13:25 Total Bilirubin 2.0 mg/dL (0.15-1.2) H 03/25/22 13:25 AST 11 U/L (0-32) 03/25/22 13:25 ALT 9 U/L (0-33) 03/25/22 13:25 Alkaline Phosphatase 154 IU/L (35-105) H 03/25/22 13:25 NT-Pro-B Natriuret Pep > 98053 pg/mL (0-125) H 03/25/22 13:25 Total Protein 7.5 g/dL (6.6-8.7) 03/25/22 13:25 Albumin 3.2 g/dL (3.5-5.2) L 03/25/22 13:25 Globulin 4.3 g/dL (1.3-4.6) 03/25/22 13:25 Critical Care Time Critical Care Time: Critical Care Time: Yes Total Critical Care Time: 50 Attestation: Due to a high probability of clinically significant, possibly life threatening deterioration, the patient required my highest level of attention and preparedness to intervene emergently and I personally spent this critical care time directly and personally managing the patient. This critical care time included obtaining a history; examining the patient; pulse oximetry; ordering and review of laboratory and imaging studies; arranging urgent treatment with development of a management plan; evaluation of patient's response to treatment; frequent reassessment; and, discussions with other providers as applicable. It was exclusive of separately billable procedures. Primary system involved is renal Discharge Plan Discharge Patient Disposition: Xfer Short-Term Hosp Clinical Impression: End-stage renal disease needing dialysis, Acute hyperkalemia, Uremia, Leukocytosis, Anemia in chronic kidney disease, Elevated bilirubin, Volume overload Condition: Stable Prescriptions: No Action Synthroid 150 mcg tablet 150 mcg PO DAILY Qty: 30 5RF gentamicin 0.1 % cream 1 applic topical TID PRN (Reason: Rash) 0RF nystatin 100,000 unit/gram cream 1 applic topical BID PRN (Reason: Rash) 0RF sodium bicarbonate 650 mg tablet 650 mg PO BID 0RF bumetanide 2 mg tablet 4 mg PO BID Qty: 120 3RF (DME) Stump Lead Javascript Developer See Rx Instructions .Route .MEDSUPPLY Qty: 1 0RF Rx Instructions: As directed hydralazine 50 mg tablet 50 mg PO BID 0RF albuterol sulfate [ProAir HFA] 90 mcg/actuation Hfa Aerosol Inhaler 2 puff INHALATION Q4H PRN (Reason: Shortness Of Breath) 0RF RenaPlex-D 800 mcg-12.5 mg -2,000 unit tablet 1 tab PO DAILY 0RF clopidogrel 75 mg Tablet 75 mg PO DAILY 90 Days Qty: 90 2RF nitroglycerin 0.4 mg Tablet, Sublingual 0.4 mg sublingual Q5M PRN (Reason: Chest Pain) 30 Days Qty: 30 2RF aspirin [Children's Aspirin] 81 mg Tablet,Chewable 81 mg PO DAILY 90 Days Qty: 90 2RF doxazosin [Cardura] 2 mg tablet 8 mg PO BID 0RF psyllium husk [Metamucil] 0.4 gram Capsule 0.4 g PO DAILY 0RF Tums Ultra 470 mg calcium (1,177 mg) tablet,chewable 3,531 mg PO TIDWM PRN (Reason: Heartburn) 0RF carvedilol [Coreg] 25 mg Tablet 25 mg PO BID 0RF Referrals: Karen Bear MD [Primary Care Provider] - Coding Level of Care Code ED Looping Inspector for Chg Fwd Exam Comprehensive
--- NOTE | 2022-03-25 12:23 | ECG_ITS ---
[facility] Test Date: 2022-03-25 Pat Name: Alesia Shaw Department: Room: Gender: Female Vegetable Tester: : [id number] Requested By: Marques Short Order Number: [id number] Reading MD: Fly Long M.D. Measurements Intervals [place] Rate: 71 P: 72 CA: 216 QRS: -60 QRSD: 133 T: 103 QT: 406 QTc: 443 Interpretive Statements SINUS RHYTHM WITH FIRST DEGREE AV BLOCK POSSIBLE LEFT ATRIAL ENLARGEMENT [-0.1mV P-WAVE IN V1/V2] LEFT AXIS DEVIATION [QRS AXIS < -30] INTRAVENTRICULAR CONDUCTION DELAY [130+ ms QRS DURATION] Compared to ECG 03/24/2022 18:01:22 First degree AV block now present T-wave abnormality no longer present Possible ischemia no longer present Electronically Signed On 03-25-2022 20:40:53 CDT by Fly Long M.D. [email or web address]
[2022-03-25 12:30] VITALS: BP 99/55; PULSE 90; RESP 22; TEMP 36.8; O2SAT 98; BMI 36.1
[2022-03-25 13:40] LABS: Basophils % 0.3 %; Eosinophils # 0.1 10^3/uL (0.0-0.8); Eosinophils % 0.9 %; Hematocrit 27.6 % (37.0-47.0); Hemoglobin 9.1 g/dL (11.5-15.3); Lymphocytes # 0.4 10^3/uL (0.8-4.8); Lymphocytes % 3.3 %; Mean Corpuscular Hemoglobin 32.3 pg (28.0-34.0); Mean Corpuscular Volume 97.9 fl (81-99); Mean Platelet Volume 10.6 fL (7.4-10.4); Monocytes % 8.8 %; Neutrophils # 9.64 10^3/uL (1.8-7.7); Neutrophils % 84.9 %; Nucleated Red Blood Cells % 0 %; Platelet Count 131 10^3/cmm (130-400); Red Blood Count 2.82 10^6/uL (4.1-5.3); Red Cell Distribution Width 16.8 % (12.1-15.1); White Blood Count 11.3 10^3/uL (4.0-10.0)
[2022-03-25 14:09] LABS: Alanine Aminotransferase 9 U/L (0-33); Albumin Level 3.2 g/dL (3.5-5.2); Alkaline Phosphatase 154 IU/L (35-105); Anion Gap 26.7 (5-19); Aspartate Amino Transferase 11 U/L (0-32); Carbon Dioxide 20 mmol/L (22-29); Chloride 91 mmol/L (98-107); Globulin 4.3 g/dL (1.3-4.6); Glomerular Filtration Rate 3.8 mL/min (90-130); Glucose 108 mg/dL (65-115); Osmolality Calculated 301 mOsm/kg (285-295); Potassium 5.7 mmol/L (3.5-5.1); Sodium 132 mmol/L (136-145); Total Protein 7.5 g/dL (6.6-8.7)
[2022-03-25 14:19] LABS: Blood Urea Nitrogen 87 mg/dL (6-20)
[2022-03-25 14:23] VITALS: BP 116/67; PULSE 71; RESP 15; O2SAT 100
[2022-03-25 14:44] LABS: NT Pro B Type Natriuretic Pept > 70000 pg/mL (0-125)
[2022-03-25] MEDS: calcium gluconate 0.9% NaCL 1 GM/50 ML PREMIX IV (16:04)
[2022-03-25 19:03] VITALS: BP 101/58; PULSE 72; RESP 17; O2SAT 97
[2022-03-25 21:05] VITALS: BP 119/59; PULSE 73; RESP 17; O2SAT 98
[2022-03-25 21:07] VITALS: BP 119/59; PULSE 73; RESP 17; O2SAT 98
== END 2022-03-25 21:10 | disposition short-term general hospital (02) ==
PROVIDERS: Emergency Provider Emergency Medicine; PCP Family Medicine
DX: I12.0 Hypertensive chronic kidney disease with stage 5 chronic kidney disease or end stage renal disease (principal); E11.22 Type 2 diabetes mellitus with diabetic chronic kidney disease; N18.6 End stage renal disease; Z99.2 Dependence on renal dialysis; E87.5 Hyperkalemia; D72.829 Elevated white blood cell count, unspecified; D63.1 Anemia in chronic kidney disease; R17 Unspecified jaundice; E87.70 Fluid overload, unspecified; I25.10 Atherosclerotic heart disease of native coronary artery without angina pectoris; I11.0 Hypertensive heart disease with heart failure; I50.20 Unspecified systolic (congestive) heart failure; E78.5 Hyperlipidemia, unspecified; E03.9 Hypothyroidism, unspecified; I25.5 Ischemic cardiomyopathy
CPT/HCPCS: 80053; 83880; 85025; 93005; 96365; 99284; 99285; J0610

== ENCOUNTER 2022-05-11 11:37 | Inpatient (IN) | payer MEDICARE, MEDICAID, SELFPAY ==
[2022-05-11] VITALS (7 sets, daily range): BP systolic 125–154; BP diastolic 67–106; PULSE 66–80; RESP 16–18; TEMP 37–37.2; O2SAT 93–99; BMI 41.4; BMI 38.1
--- NOTE | 2022-05-11 12:00 | CT_ITS ---
WS: [id number] CT ABDOMEN AND PELVIS NONCONTRAST HISTORY: abd pain, on HD TECHNIQUE: Imaging performed through the abdomen and pelvis. Coronal and sagittal reformats are submi tted. All CT scans at [facility] use at least one of these dose optimization techniques: auto mated exposure control; mA and/or kV adjustment per patient size (includes targeted exams where dose is matched to clinical indication); or iterative reconstruction. DLP: 1999.08 mGy.cm COMPARISON: 03/24/2022 Lower thorax: Heart is moderately enlarged. Extensive coronary artery calcifications and plaque in th e thoracic aorta. Pleural thickening and pleural fluid at the LEFT lung base. Adjacent LEFT lower lob e atelectasis. Liver: Liver is mildly enlarged. No appreciable bile duct dilatation. Gallbladder: Prior cholecystectomy. Pancreas: Marked atrophy. Spleen: Normal size with extensive splenic calcification. Adrenal glands: Patient has known bilateral adrenal adenomas. Right kidney: Marked atrophy with severe atherosclerotic calcification. Left kidney: Marked atrophy with severe atherosclerotic calcification. Aorta: Extensive atherosclerotic disease throughout the aorta and mesenteric arteries. Moderate ascites. There is also mesenteric edema and soft tissue anasarca. Similar to the prior studi es. GI tract: No GI tract obstruction. Mild distention of stomach with air. No pneumatosis identified. No free air is identified. Abdominal wall: Extensive soft tissue anasarca. Pelvis: Atrophic calcified uterus. Extensive calcification in the arteries of the pelvis. Osseous structures: Unremarkable. CT/CT abdomen pelvis wo con [id number] IMPRESSION: 1. Moderate amount of ascites throughout the abdomen. May be related to the pe ritoneal dialysis. 2. There is extensive atherosclerotic plaque throughout the abdomen and pelvis . Heavily diseased mesenteric arteries places the patient at risk for mesenteri c ischemia. At this time there is no pneumatosis or obstruction identified. 3. Continued effusion at the LEFT lung base. Cannot further evaluate without I V contrast. 4. Severe renal atrophy. 5. Cardiomegaly.
--- NOTE | 2022-05-11 12:04 | W.ED.NAVMDI ---
HPI - Nausea/Vomiting/Diarrhea General: Chief complaint: General Medical Stated complaint: chronic diarreah Time Seen by Provider: 05/11/22 11:55 History of Present Illness: 61-year-old presents due to diarrhea nausea and nonbloody nonbilious vomiting. States that she has had diarrhea for months but over the last at least gotten worse. She is dialysis patient is not missing dialysis sessions. Reports diffuse abdominal cramping but no pain. Denies any blood in the stool. Review of Systems Narrative: - CONSTITUTIONAL: Denies weight loss, fever and chills. - HEENT: Denies changes in vision and hearing. - RESPIRATORY: Denies SOB and cough. - CV: Denies palpitations and CP. - GI: As above - : Denies dysuria and urinary frequency. - MSK: Denies myalgia and joint pain. - SKIN: Denies rash and pruritus. - NEUROLOGICAL: Denies headache, weakness, numbness and syncope. - PSYCHIATRIC: Denies suicidal ideation [facility] ED PFSH: Medical History Anemia Chronic kidney disease and blood loss, has previously required transfusion Aortic valve endocarditis (~04/2020) CAD (coronary artery disease) Charcot's joint of foot in type 2 diabetes mellitus Congestive heart failure systolic Diabetes Diabetes mellitus type 2, not on medications, HbA1c 10/2021 5.2 Diabetic ulcer of left foot Diabetic ulcer of right foot Difficult intravenous access Epidural abscess (~2017) ESRD (end stage renal disease) previously on peritoneal dialysis currently on hemodialysis History of colon polyps History of MRSA infection spinal abscess 2017 Hyperlipidemia Hypertension Hypothyroidism Ischemic cardiomyopathy EF 05/2020 65% >> 06/2021 15%, 09/2021 25% 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 Severe proximal to mid LAD stenosis. Severe ostial diagonal artery stenosis. 2. Successful revascularization of the LAD with orbital arthrectomy and PCI with JD x 2 including bifurcation stenting of mid LAD and diagonal artery using mini-crush technique (2 stents placed in LAD and 1 in diagonal artery). History of cholecystectomy History of colonoscopy with polypectomy 2017 History of left below knee amputation History of lumbar surgery Due to epidural abscess in March 2018 Peritoneal dialysis catheter in place removal 05/20/21 S/P hemodialysis catheter insertion multiple Family History Mother Cancer Uterine and breast cancer Father Diabetes Other CAD (coronary artery disease) Social History Smoking and tobacco status: never smoked Alcohol intake: current Alcohol intake frequency: holidays/special occasions only Marital status: Physical Exam Narrative: EXAM NARRATIVE: - GENERAL: Alert and oriented x 3. No acute distress. Well-nourished. - EYES: EOMI. Anicteric. - HENT: Atraumatic, no C-spine tenderness. Moist mucous membranes. No scleral icterus. No cervical lymphadenopathy. - LUNGS: Clear to auscultation bilaterally. No accessory muscle use. Equal lung sounds bilaterally. No respiratory distress. - CARDIOVASCULAR: Regular rate and rhythm. No murmur. No JVD. Right upper chest dialysis catheter in place. No erythema or tenderness. - ABDOMEN: Soft, non-tender and non-distended. Negative CVA tenderness bilaterally, no rebound or guarding, negative Zazueta sign. No palpable masses. - EXTREMITIES: No edema. Non-tender. - SKIN: No rashes or lesions. Warm. - NEUROLOGIC: No meningismus or focal neurological deficits. CN II-XII grossly intact. - PSYCHIATRIC: Cooperative. Appropriate mood and affect. Course Vital Signs: Vital signs: Vital Signs Pulse Rate 66 05/11/22 14:32 Respiratory Rate 16 05/11/22 14:32 Blood Pressure 125/69 05/11/22 14:32 Pulse Oximetry 93 05/11/22 14:32 MDM - Nausea/Vomiting/Diarrhea Medical Decision Making 61-year-old presents due to worsening diarrhea. C. difficile swab sent. Patient is hemodynamically stable afebrile nontoxic-appearing. However in discussing the case with her substance abuse clinician there is revealed that she did actually missed several dialysis sessions. Her potassium today is 5.8. EKG does not reveal any acute hyperkalemic change. Provided with Kayexalate and calcium. Discussed with nephrology and they will dialyze her today. CT scan does not reveal any sign of appendicitis obstruction or other acute abnormality. She does have some volume overload. Remainder of lab work and imaging reviewed. Discussed with hospitalist and they agreed patient would benefit from admission. Patient admitted in stable condition. Further evaluation management per hospitalist team. Lab Data : 05/11/22 12:24 05/11/22 12:24 Radiology Impressions Abdomen/Pelvis CT 05/11/22 12:00 IMPRESSION: 1. Moderate amount of ascites throughout the abdomen. May be related to the peritoneal dialysis. 2. There is extensive atherosclerotic plaque throughout the abdomen and pelvis. Heavily diseased mesenteric arteries places the patient at risk for mesenteric ischemia. At this time there is no pneumatosis or obstruction identified. 3. Continued effusion at the LEFT lung base. Cannot further evaluate without IV contrast. 4. Severe renal atrophy. 5. Cardiomegaly. Laboratory Results WBC 5.9 10^3/uL (4.0-10.0) 05/11/22 12:24 RBC 2.88 10^6/uL (4.1-5.3) L 05/11/22 12:24 Hgb 9.5 g/dL (11.5-15.3) L 05/11/22 12:24 Hct 29.5 % (37.0-47.0) L 05/11/22 12:24 MCV 102.4 fl (81-99) H 05/11/22 12:24 MCH 33.0 pg (28.0-34.0) 05/11/22 12:24 MCHC 32.2 g/dL (30.0-36.0) 05/11/22 12:24 RDW 16.7 % (12.1-15.1) H 05/11/22 12:24 Plt Count 274 10^3/cmm (130-400) 05/11/22 12:24 MPV 9.2 fL (7.4-10.4) 05/11/22 12:24 Neut % (Auto) 72.3 % 05/11/22 12:24 Lymph % (Auto) 11.5 % 05/11/22 12:24 [place] % (Auto) 9.9 % 05/11/22 12:24 Eos % (Auto) 4.6 % 05/11/22 12:24 Baso % (Auto) 1.4 % 05/11/22 12:24 Neut # (Auto) 4.23 10^3/uL (1.8-7.7) 05/11/22 12:24 Lymph # (Auto) 0.7 10^3/uL (0.8-4.8) L 05/11/22 12:24 [place] # (Auto) 0.6 10^3/uL (0.2-0.9) 05/11/22 12:24 Eos # (Auto) 0.3 10^3/uL (0.0-0.8) 05/11/22 12:24 Baso # (Auto) 0.1 10^3/uL (0.0-0.1) 05/11/22 12:24 Nucleated RBC % (auto) 0 % 05/11/22 12:24 Nucleated RBCs # 0.0 /100WBC 05/11/22 12:24 Sodium 134 mmol/L (136-145) L 05/11/22 12:24 Potassium 5.8 mmol/L (3.5-5.1) H 05/11/22 12:24 Chloride 100 mmol/L (98-107) 05/11/22 12:24 Carbon Dioxide 21 mmol/L (22-29) L 05/11/22 12:24 Anion Gap 18.8 (5-19) 05/11/22 12:24 BUN 47 mg/dL (6-20) H 05/11/22 12:24 Creatinine 7.7 mg/dL (0.5-0.9) H* 05/11/22 12:24 GFR Calculation 5.4 mL/min (90-130) L 05/11/22 12:24 Glucose 83 mg/dL (65-115) 05/11/22 12:24 Calculated Osmolality 289 mOsm/kg (285-295) 05/11/22 12:24 Calcium 8.7 mg/dL (8.5-10.5) 05/11/22 12:24 Magnesium 2.3 mg/dL (1.7-2.3) 05/11/22 12:24 Total Bilirubin 0.9 mg/dL (0.15-1.2) 05/11/22 12:24 AST 12 U/L (0-32) 05/11/22 12:24 ALT 6 U/L (0-33) 05/11/22 12:24 Alkaline Phosphatase 182 IU/L (35-105) H 05/11/22 12:24 Total Protein 8.6 g/dL (6.6-8.7) 05/11/22 12:24 Albumin 3.5 g/dL (3.5-5.2) 05/11/22 12:24 Globulin 5.1 g/dL (1.3-4.6) H 05/11/22 12:24 Lipase 12 U/L (13-60) L 05/11/22 12:24 TSH 6.13 uIU/mL (0.27-4.20) H 05/11/22 12:24 Free T4 1.19 ng/dL (0.82-1.77) 05/11/22 12:24 EKG Data EKG 1: Other EKG comments: Sinus rhythm with first-degree AV block, rate of 68, possible LVH, no peaked T waves or signs of acute hyperkalemia or any sign of acute ischemic change. 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 See Rx Instructions .Route .MEDSUPPLY Qty: 1 0RF Rx Instructions: As directed hydralazine 50 mg tablet 50 mg PO BID 0RF clopidogrel 75 mg tablet 75 mg PO DAILY 90 Days Qty: 90 2RF nitroglycerin 0.4 mg Tablet, Sublingual 0.4 mg sublingual Q5M PRN (Reason: Chest Pain) 30 Days Qty: 30 2RF aspirin [Children's Aspirin] 81 mg Tablet,Chewable 81 mg PO DAILY 90 Days Qty: 90 2RF doxazosin [Cardura] 2 mg tablet 8 mg PO BID 0RF Tums Ultra 470 mg calcium (1,177 mg) tablet,chewable 3,531 mg PO TIDWM PRN (Reason: Heartburn) 0RF carvedilol [Coreg] 25 mg Tablet 25 mg PO BID 0RF Lasix 80 mg Tablet 120 mg PO BID 0RF Referrals: Karen Bear MD [Primary Care Provider] - Coding Level of Care Code ED Build And Release Manager for [facility]kar[facility]
[2022-05-11 12:50] LABS: Basophils # 0.1 10^3/uL (0.0-0.1); Basophils % 1.4 %; Eosinophils # 0.3 10^3/uL (0.0-0.8); Eosinophils % 4.6 %; Hematocrit 29.5 % (37.0-47.0); Hemoglobin 9.5 g/dL (11.5-15.3); Lymphocytes # 0.7 10^3/uL (0.8-4.8); Lymphocytes % 11.5 %; Mean Corpuscular HGB Conc 32.2 g/dL (30.0-36.0); Mean Corpuscular Volume 102.4 fl (81-99); Mean Platelet Volume 9.2 fL (7.4-10.4); Monocytes # 0.6 10^3/uL (0.2-0.9); Monocytes % 9.9 %; Neutrophils # 4.23 10^3/uL (1.8-7.7); Neutrophils % 72.3 %; Nucleated Red Blood Cells % 0 %; Platelet Count 274 10^3/cmm (130-400); Red Blood Count 2.88 10^6/uL (4.1-5.3); Red Cell Distribution Width 16.7 % (12.1-15.1); White Blood Count 5.9 10^3/uL (4.0-10.0)
[2022-05-11] MEDS: metoclopramide 5 mg/mL SDV 2 mL 10 MG IVP (12:50)
[2022-05-11 13:04] LABS: Alanine Aminotransferase 6 U/L (0-33); Albumin Level 3.5 g/dL (3.5-5.2); Alkaline Phosphatase 182 IU/L (35-105); Anion Gap 18.8 (5-19); Aspartate Amino Transferase 12 U/L (0-32); Blood Urea Nitrogen 47 mg/dL (6-20); Calcium 8.7 mg/dL (8.5-10.5); Carbon Dioxide 21 mmol/L (22-29); Chloride 100 mmol/L (98-107); Free T4 Free Thyroxine 1.19 ng/dL (0.82-1.77); Globulin 5.1 g/dL (1.3-4.6); Glomerular Filtration Rate 5.4 mL/min (90-130); Glucose 83 mg/dL (65-115); Lipase 12 U/L (13-60); Magnesium 2.3 mg/dL (1.7-2.3); Osmolality Calculated 289 mOsm/kg (285-295); Potassium 5.8 mmol/L (3.5-5.1); Sodium 134 mmol/L (136-145); Thyroid Stimulating Hormone 6.13 uIU/mL (0.27-4.20); Total Bilirubin 0.9 mg/dL (0.15-1.2); Total Protein 8.6 g/dL (6.6-8.7)
--- NOTE | 2022-05-11 13:58 | ECG_ITS ---
[facility] Test Date: 2022-05-11 Pat Name: Alesia Shaw Department: Room: Gender: Female Billing Administrator: : [id number] Requested By: David Cedillo Order Number: [id number] Reading MD: Abdiel Harmon M.D. Measurements Intervals [place] Rate: 68 P: 55 AL: 211 QRS: -42 QRSD: 130 T: 120 QT: 448 QTc: 477 Interpretive Statements SINUS RHYTHM WITH FIRST DEGREE AV BLOCK POSSIBLE LEFT ATRIAL ENLARGEMENT [-0.1mV P-WAVE IN V1/V2] LEFT AXIS DEVIATION [QRS AXIS < -30] LEFT VENTRICULAR HYPERTROPHY AND ST-T CHANGE [VOLTAGE CRITERIA PLUS ST/T ABNORMALITY] Compared to ECG 03/25/2022 16:15:40 Left ventricular hypertrophy now present ST (T wave) deviation now present Intraventricular conduction delay no longer present Electronically Signed On 05-11-2022 15:17:27 CDT by Abdiel Harmon M.D. [id number]
[2022-05-11] MEDS: sodium polystyrene sulfonate 15 gm/60 mL Btl PO (14:32)
[2022-05-11] MEDS: calcium gluconate 0.9% NaCL 1 GM/50 ML PREMIX IV ×2 (14:33→15:08)
--- NOTE | 2022-05-11 15:11 | P.CONIM_ITS ---
Providers/Reason For Consult Consulting Physician/Specialty*: dex dowd md /telenephrology Reason for Consult*: ESRD care/ hyperkalemia Requesting Physician: Dr Cedillo and the hospitalist Primary Care Provider: Karen Bear MD History of Present Illness History of Present Illness Alesia Shaw is a 61 year old female h/o ESRD on HD MWF via tunneled Rt IJ catheter,? hypertension, type 2 diabetes, HFrEF, CAD s/p stents,chronic leg swelling/ lymphedema, Left BKA,, hypothyroidism, spinal abscess with MRSA Multiple hospitalizations for edema, and missing HD.? Pt is in ER for missing HD for 5 days due to severe diarrhea. Pt c/o nausea, weakness, diarrhea, edema, SOB, ARANGO, poor appetite, and weak., chills? Renal called to provide ESRD care. Review of Systems Narrative: weak, sob, swollen, leg paisn, n/v/d/kearney Medications/Allergies Home Medications Medication Instructions Recorded Confirmed Last Taken Type [employer] Project Leader #1 ea 01/12/21 05/11/22 07/20/21 Rx carvedilol 25 mg tablet (Coreg) 25 mg PO BID 05/19/21 05/11/22 05/11/22 History aspirin 81 mg chewable tablet 81 mg PO DAILY 90 Days #90 tab 06/22/21 05/11/22 05/10/22 Rx (Children's Aspirin) nitroglycerin 0.4 mg sublingual 0.4 mg SUBLINGUAL Q5M PRN 30 Days 06/22/21 05/11/22 07/20/21 Rx tablet #30 tab levothyroxine 150 mcg tablet 150 mcg PO DAILY #30 tab 10/14/21 05/11/22 05/11/22 Rx (Synthroid) doxazosin 2 mg tablet (Cardura) 8 mg PO BID tab 11/16/21 05/11/22 05/11/22 History calcium carbonate 470 mg calcium 3,531 mg PO TIDWM PRN 12/25/21 05/11/22 01/17/22 History (1,177 mg) chewable tablet (Tums Ultra) gentamicin 0.1 % topical cream 1 applic TOPICAL TID PRN g 03/10/22 05/11/22 Unknown History hydralazine 50 mg tablet 50 mg PO BID tab 03/10/22 05/11/22 05/11/22 History nystatin 100,000 unit/gram topical 1 applic TOPICAL BID PRN g 03/10/22 05/11/22 Unknown History cream clopidogrel 75 mg tablet 75 mg PO DAILY 90 Days #90 tab 04/18/22 05/11/22 05/10/22 Rx furosemide 80 mg tablet (Lasix) 120 mg PO BID 05/11/22 05/11/22 05/10/22 History Allergies Allergy/AdvReac Type Severity Reaction Status Date / Time Iodinated Contrast Media Allergy ALGY-Hives Verified 04/07/22 16:03 Current Medications Generic Name Dose Route Start Last Admin Trade Name Freq PRN Reason Stop Dose Admin calcium gluconate 0.9% NaCL 1 gm in 50 mls @ 100 mls/hr 05/11/22 14:30 05/11/22 14:33 Calcium Gluconate 0.9% Nacl IV 05/12/22 14:59 100 mls/hr Q30MIN SHELBY Administration PFSH Acute PFSH: Medical History Anemia Chronic kidney disease and blood loss, has previously required transfusion Aortic valve endocarditis (~04/2020) CAD (coronary artery disease) Charcot's joint of foot in type 2 diabetes mellitus Congestive heart failure systolic Diabetes Diabetes mellitus type 2, not on medications, HbA1c 10/2021 5.2 Diabetic ulcer of left foot Diabetic ulcer of right foot Difficult intravenous access Epidural abscess (~2017) ESRD (end stage renal disease) previously on peritoneal dialysis currently on hemodialysis History of colon polyps History of MRSA infection spinal abscess 2017 Hyperlipidemia Hypertension Hypothyroidism Ischemic cardiomyopathy EF 05/2020 65% >> 06/2021 15%, 09/2021 25% 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 Severe proximal to mid LAD stenosis. Severe ostial diagonal artery stenosis. 2. Successful revascularization of the LAD with orbital arthrectomy and PCI with JD x 2 including bifurcation stenting of mid LAD and diagonal artery using mini-crush technique (2 stents placed in LAD and 1 in diagonal artery). History of cholecystectomy History of colonoscopy with polypectomy 2017 History of left below knee amputation History of lumbar surgery Due to epidural abscess in March 2018 Peritoneal dialysis catheter in place removal 05/20/21 S/P hemodialysis catheter insertion multiple Family History Mother Cancer Uterine and breast cancer Father Diabetes Other CAD (coronary artery disease) Social History Smoking and tobacco status: never smoked Alcohol intake: current Alcohol intake frequency: holidays/special occasions only Marital status: Vitals/I&O/Wt Last Vital Signs Pulse 66 05/11/22 14:32 Resp 16 05/11/22 14:32 BP 125/69 05/11/22 14:32 Pulse Ox 93 05/11/22 14:32 Weight last 48 hrs Weight 116.573 kg Physical Exam Narrative: vs noted obese,using nc 02 heent-? nc/at, eomi, anicteric neck supple rt IJ Permacath lungs dull bases and crackles heart reg abd soft, nt, nd, + bs ext b/l edema Left bka neuro- a,a, o x 3 Data : 05/11/22 12:24 05/11/22 12:24 A&P Assessment and plan (1) ESRD (end stage renal disease): 61 year old female 1. ESRD- pt needs dialysis for edema, sob, hyperkalemia -? will dialyze 3.5 hrs, 2k, remove 2.5- 3l as has ascites and effusion 2. CHFrEF- remove fluids on dialysis 3. BP low- hold cardua. can hold hydralazine if necessary 4. diarrhea- Has had multiple hospitalizations-?review previos w/u - ct scan noted -significant atherosclerotic plaque in abd and pelvis- Q if having some ischema especially w/ low EF -avoid hypotension on dialysis 5. anemia of ESRD - can check iron studies and give GARRETT 6. tsh 6.13 8. DM care per PMD seen and examined w/ RN- telehealth visit informed consent for Telehealth obtained time spent seeing pt and coordinating care =50+ minutes Status: Chronic Plan HD now Consult Attestations Medical Necessity Statement: hyperkalemia, edema, abd pain and diarrhea Time Spent in Patient Care: Greater than 35 minutes (>than 50% of time spent in counselling and/or direct pt care on unit) . Coding Level of Care Code Acute Assisted Living Coordinator for Chg Fwd Diagnoses ESRD (end stage renal disease) N18.6
[2022-05-11 16:00] LABS: Uric Acid 8.2 mg/dL (2.4-5.7)
--- NOTE | 2022-05-11 16:10 | P.HP_ITS ---
Providers/Chief Complaint Admitting Physician: Sudheer Spaulding MD Primary Care Provider: Karen Bear MD Chief Complaint: chronic diarreah History of Present Illness This is a? 61 year old female with a history of coronary disease s/p multiple stents (?06/2021: LAD with orbital arthrectomy and PCI with JD x 2 including bifurcation stenting of mid LAD and diagonal artery using mini-crush technique (2 stents placed in LAD and 1 in diagonal artery), ischemic cardiomyopathy (last LVEF of 25%, 09/2021), end-stage renal disease on hemodialysis via tunneled ca theter x ~1 yr, hypertension, type 2 diabetes,? 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 Patient tells me that she is here, due to missing dialysis, as she is developing acute on chronic diarrhea. Patient tells me that she has some degree of chronic diarrhea, for the last few weeks, she tells me that she is having diarrhea throughout the day, and given her acute worsening of diarrhea she is unable to go to dialysis. She tells me that she is up all night due to the diarrhea, it is difficult for her to go to dialysis with her diarrhea episodes. She also is developing acute abdominal distention, abdominal tenderness, she tells me that she is received peritoneal dialysis in the past, but she has been off peritoneal dialysis for the last year, her abdomen is quite distended and tight she is wondering if that is the cause for diarrhea. She tells me this is never really happened to her before. Review of the records show that she was here at [facility], emergency room, on March 24, for missed dialysis, but left AGAINST MEDICAL ADVICE as we did not have dialysis available at that time she came again later on, eventually was transferred to [place] as per her choice. I asked her about her stay at [facility], she tells me that did not do much for her, she is not exactly sure what they all did. She tells me that she has chronic lower extremity edema, she has had a left above-knee amputation. She tells me that her extremities remain edematous, and she tells me that they always take its edema from her dialysis but it never improves with dialysis, she has significant lymphedema. Denies any pain in her right lower extremity, she has had cellulitis in the past, she tells me that is about the same. She is not exactly sure why she is having diarrhea, she has not been on antibiotics in some time. Work-up in the emergency room showed hyperkalemia, elevated creatinine, she is received calcium gluconate, Kayexalate. Plans on dialysis, nephrology has been consulted, denies chest pain, palpitations. Medications/Allergies Home Medications Medication Instructions Recorded Confirmed Last Taken Type Stump Metal Patternmaker #1 ea 01/12/21 05/11/22 07/20/21 Rx carvedilol 25 mg tablet (Coreg) 25 mg PO BID 05/19/21 05/11/22 05/11/22 History aspirin 81 mg chewable tablet 81 mg PO DAILY 90 Days #90 tab 06/22/21 05/11/22 05/10/22 Rx (Children's Aspirin) nitroglycerin 0.4 mg sublingual 0.4 mg SUBLINGUAL Q5M PRN 30 Days 06/22/21 05/11/22 07/20/21 Rx tablet #30 tab levothyroxine 150 mcg tablet 150 mcg PO DAILY #30 tab 10/14/21 05/11/22 05/11/22 Rx (Synthroid) doxazosin 2 mg tablet (Cardura) 8 mg PO BID tab 11/16/21 05/11/22 05/11/22 History calcium carbonate 470 mg calcium 3,531 mg PO TIDWM PRN 12/25/21 05/11/22 01/17/22 History (1,177 mg) chewable tablet (Tums Ultra) gentamicin 0.1 % topical cream 1 applic TOPICAL TID PRN g 03/10/22 05/11/22 Unknown History hydralazine 50 mg tablet 50 mg PO BID tab 03/10/22 05/11/22 05/11/22 History nystatin 100,000 unit/gram topical 1 applic TOPICAL BID PRN g 03/10/22 05/11/22 Unknown History cream clopidogrel 75 mg tablet 75 mg PO DAILY 90 Days #90 tab 04/18/22 05/11/22 05/10/22 Rx furosemide 80 mg tablet (Lasix) 120 mg PO BID 05/11/22 05/11/22 05/10/22 History Allergies Allergy/AdvReac Type Severity Reaction Status Date / Time Iodinated Contrast Media Allergy ALGY-Hives Verified 04/07/22 16:03 PFSH Acute PFSH: Medical History Anemia Chronic kidney disease and blood loss, has previously required transfusion Aortic valve endocarditis (~04/2020) CAD (coronary artery disease) Charcot's joint of foot in type 2 diabetes mellitus Congestive heart failure systolic Diabetes Diabetes mellitus type 2, not on medications, HbA1c 10/2021 5.2 Diabetic ulcer of left foot Diabetic ulcer of right foot Difficult intravenous access Epidural abscess (~2017) ESRD (end stage renal disease) previously on peritoneal dialysis currently on hemodialysis History of colon polyps History of MRSA infection spinal abscess 2017 Hyperlipidemia Hypertension Hypothyroidism Ischemic cardiomyopathy EF 05/2020 65% >> 06/2021 15%, 09/2021 25% 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 Severe proximal to mid LAD stenosis. Severe ostial diagonal artery stenosis. 2. Successful revascularization of the LAD with orbital arthrectomy and PCI with JD x 2 including bifurcation stenting of mid LAD and diagonal artery using mini-crush technique (2 stents placed in LAD and 1 in diagonal artery). History of cholecystectomy History of colonoscopy with polypectomy 2017 History of left below knee amputation History of lumbar surgery Due to epidural abscess in March 2018 Peritoneal dialysis catheter in place removal 05/20/21 S/P hemodialysis catheter insertion multiple Family History Mother Cancer Uterine and breast cancer Father Diabetes Other CAD (coronary artery disease) Social History Smoking and tobacco status: never smoked Alcohol intake: current Alcohol intake frequency: holidays/special occasions only Marital status: Vitals/I&O/Wt Last Vital Signs Pulse 66 05/11/22 14:32 Resp 16 05/11/22 14:32 BP 125/69 05/11/22 14:32 Pulse Ox 93 05/11/22 14:32 05/11/22 05/11/22 05/11/22 06:59 14:59 22:59 Intake Total 50 / 50 Balance 50 / 50 Weight last 48 hrs Weight 116.573 kg Physical Exam Const: COMMON NORMALS: no acute distress and patient oriented x3 HENMT: COMMON NORMALS: normocephalic HEAD & SCALP: normocephalic Eye: COMMON NORMALS: Equal, round and reactive pupils present and EOMs intact bilaterally Neck/C-Spine: COMMON NORMALS: no JVD Resp: COMMON NORMALS: normal respiratory effort, No retractions, No use of accessory muscles and clear to auscultation bilaterally AUSCULTATION: clear to auscultation bilaterally Cardio: COMMON NORMALS: no JVD, regular rate, regular rhythm, S1 normal heart sound present and S2 normal heart sound present RATE: regular rate RHYTHM: regular rhythm HEART SOUNDS: S1 normal heart sound present and S2 normal heart sound present GI: COMMON NORMALS: Soft to palpation, non-tender and No hepatosplenomegaly present INSPECTION: Yes Abdominal wall edema and Yes Fluid wave present AUSCULTATION: Yes normoactive bowel sounds PALPATION: Yes Soft to palpation, Yes Tenderness to palpation present (GI) (Diffuse tenderness), No Guarding due to palpation present (GI) and No Rigid due to palpation Extremity: NARRATIVE EXTREMITY EXAM: Left lower extremity [id number] amputation Right lower extremity, 1+ pitting edema Does have erythema extending from mid ruth, down to ankle, she tells me that this is chronic, no significant warmth, no significant erythema Neuro: COMMON NORMALS: patient oriented x3, CN's II-XII intact bilaterally, moves all extremities and no focal motor deficits Psych: COMMON NORMALS: mental status grossly normal Data : 05/11/22 12:24 05/11/22 12:24 A&P Assessment and plan (1) Hyperkalemia: Status: Acute (2) ESRD (end stage renal disease): Status: Chronic (3) Fluid overload: Status: Acute (4) Abdominal ascites: Status: Acute (5) Ischemic cardiomyopathy: Status: Chronic (6) Lymphedema: Status: Chronic (7) Peripheral arterial disease: Status: Chronic (8) CAD (coronary artery disease): Status: Chronic Qualifiers: Coronary Disease-Associated Artery/Lesion type: [place] artery [place] vs. transplanted heart: [place] heart Associated angina: without angina Qualified Code(s): I25.10 - Atherosclerotic heart disease of [place] coronary artery without angina pectoris (9) Hypertension: Status: Chronic Qualifiers: Hypertension type: renovascular hypertension Qualified Code(s): I15.0 - Renovascular hypertension (10) Hyperlipidemia: Status: Chronic (11) Hypothyroidism: Status: Chronic Plan Hyperkalemia -No chest pain, no palpitations, EKG no acute ST-T wave changes -Has received Kayexalate -Has received calcium gluconate -Plans on emergent dialysis -We will give her 10 units IV push insulin with D50 for hyperkalemia for now -Recheck BMP at 9 PM Fluid overload -Has abdominal ascites -Likely will respond to dialysis -However does complain abdominal tenderness, distention -If this persists we will do paracentesis with studies -Evaluate for possible secondary bacterial peritonitis Acute on chronic diarrhea -Stool studies CAD, coutinue home medications ischemic cardiomyopathy HTN Attestations Medical Necessity Statement*: patient requires hospitalization, for hyperka lemia, fluid overload, outpatient with observation Coding Level of Care Code Acute Electric Deicer Inspector for Chg Fwd Diagnoses Hyperkalemia E87.5 ESRD (end stage renal disease) N18.6 Fluid overload E87.70 Abdominal ascites R18.8 Ischemic cardiomyopathy I25.5 Lymphedema I89.0 Peripheral arterial disease I73.9 CAD (coronary artery disease) I25.10 Coronary Disease-Associated Artery/Lesion type: [place] artery [place] vs. transplanted heart: [place] heart Associated angina: without angina Hypertension I15.0 Hypertension type: renovascular hypertension Hyperlipidemia E78.5 Hypothyroidism E03.9
--- NOTE | 2022-05-11 16:20 | PC.NURSE ---
Attempted to call report, no answer
[2022-05-11] MEDS: heparin, porcine 1,000 unit/mL INJ 10 mL 10000 UNIT HE (17:20)
[2022-05-11 17:29] LABS: Glucose Point of Care 106 mg/dL (70-110)
[2022-05-11 17:47] LABS: Gamma Glutamyl Transferase 70 U/L (5-36)
[2022-05-11 18:10] LABS: C Reactive Protein 13.8 mg/L (0.0-4.9); Procalcitonin 0.22 ng/mL (0-0.5); Thyroid Stimulating Hormone 5.99 uIU/mL (0.27-4.20)
[2022-05-11] MEDS: pantoprazole 40 mg SDV IVP (18:12)
[2022-05-11] MEDS: heparin 5,000 unit/mL INJ 1 mL 5000 UNIT SUBCUT (18:16)
[2022-05-11 20:58] LABS: Glucose Point of Care 104 mg/dL (70-110)
[2022-05-11] MEDS: carvedilol 25 mg Tablet PO (21:27)
[2022-05-11] MEDS: hyDRALAzine 50 mg Tablet PO (21:27)
[2022-05-11] MEDS: doxazosin 4 mg Tablet 8 MG PO (21:27)
[2022-05-11 23:14] LABS: Hepatitis B Surface AB 153.5 (11.5-1000); Hepatitis B Surface Antigen Non-Reactive (Nonreactive); Hepatitis C Virus Antibody Non-Reactive (Nonreactive)
[2022-05-12] VITALS (12 sets, daily range): BP systolic 116–154; BP diastolic 57–85; PULSE 68–111; RESP 15–19; TEMP 36.6–37.5; O2SAT 93–100
[2022-05-12 02:34] LABS: Basophils % 0.7 %; Eosinophils # 0.2 10^3/uL (0.0-0.8); Hemoglobin 8.6 g/dL (11.5-15.3); Lymphocytes # 0.6 10^3/uL (0.8-4.8); Mean Corpuscular HGB Conc 33.1 g/dL (30.0-36.0); Mean Corpuscular Volume 99.6 fl (81-99); Mean Platelet Volume 9.1 fL (7.4-10.4); Monocytes # 0.8 10^3/uL (0.2-0.9); Monocytes % 14.6 %; Neutrophils # 3.84 10^3/uL (1.8-7.7); Neutrophils % 69.3 %; Nucleated Red Blood Cells % 0 %; Platelet Count 238 10^3/cmm (130-400); Red Blood Count 2.61 10^6/uL (4.1-5.3); Red Cell Distribution Width 16.3 % (12.1-15.1); White Blood Count 5.5 10^3/uL (4.0-10.0)
[2022-05-12 02:47] LABS: Partial Thromboplastin Time 32.2 SECONDS (23.9-36.7)
[2022-05-12 03:01] LABS: Alanine Aminotransferase 6 U/L (0-33); Alkaline Phosphatase 166 IU/L (35-105); Anion Gap 14.5 (5-19); Aspartate Amino Transferase 12 U/L (0-32); Blood Urea Nitrogen 26 mg/dL (6-20); Calcium 8.7 mg/dL (8.5-10.5); Carbon Dioxide 25 mmol/L (22-29); Chloride 106 mmol/L (98-107); Ferritin 967 ng/mL (15-150); Globulin 4.4 g/dL (1.3-4.6); Glomerular Filtration Rate 8.5 mL/min (90-130); Glucose 97 mg/dL (65-115); Iron 31 ug/dL (37-145); Osmolality Calculated 297 mOsm/kg (285-295); Percent Saturation 32.2 % (20-50); Phosphorus 3.9 mg/dL (2.5-4.5); Potassium 4.5 mmol/L (3.5-5.1); Sodium 141 mmol/L (136-145); Total Bilirubin 0.8 mg/dL (0.15-1.2); Total Iron Binding Capacity 96 mcg/dl; Total Protein 7.4 g/dL (6.6-8.7); Unsaturated Iron Binding 65 ug/dL (112-347)
[2022-05-12 03:12] LABS: 25 Hydroxy Vitamin D 38 ng/mL (30-100)
[2022-05-12] MEDS: heparin 5,000 unit/mL INJ 1 mL 5000 UNIT SUBCUT ×2 (05:26→17:31)
[2022-05-12 06:26] LABS: Glucose Point of Care 113 mg/dL (70-110)
--- NOTE | 2022-05-12 07:01 | PM.PN ---
Subjective Subjective: feels better. still w/ edema and sob. abd improving Medications: Reviewed: Yes Medication Review Details: Current Medications Acetaminophen (Acetaminophen 325 Mg Tablet) 650 mg PO Q6H PRN PRN Reason: Mild/Mod Pain Or Temp >/= 101 Aspirin (Aspirin 81 Mg Chew Tablet) 81 mg PO DAILY [facility] Carvedilol (Carvedilol 25 Mg Tablet) 25 mg PO BID [facility] Last Admin: 05/11/22 21:27 Dose: 25 mg Documented by: Clopidogrel Bisulfate (Clopidogrel 75 Mg Tablet) 75 mg PO DAILY [facility] Doxazosin Mesylate (Doxazosin 4 Mg Tablet) 8 mg PO BID [facility] Last Admin: 05/11/22 21:27 Dose: 8 mg Documented by: Furosemide (Furosemide 40 Mg Tablet) 120 mg PO BID [facility] Last Admin: 05/11/22 18:17 Dose: Not Given Documented by: Heparin Sodium (Porcine) (Heparin 5,000 Unit/Ml Inj 1 Ml) 5,000 unit SUBCUT Q12H [facility] Last Admin: 05/12/22 05:26 Dose: 5,000 unit Documented by: Hydralazine HCl (Hydralazine 50 Mg Tablet) 50 mg PO BID [facility] Last Admin: 05/11/22 21:27 Dose: 50 mg Documented by: calcium gluconate 0.9% NaCL (Calcium Gluconate 0.9% Nacl) 1 gm in 50 mls @ 100 mls/hr IV Q30MIN [facility] Stop: 05/12/22 14:59 Last Infusion: 05/11/22 15:40 Dose: Infused Documented by: Albumin Human (Albumin) 12.5 gm in 50 mls @ 60 mls/hr IV PRN PRN PRN Reason: Hypotension and/or symptomatic Levalbuterol HCl (Levalbuterol 0.63 Mg/3 Ml Neb) 0.63 mg INHALATION Q6H.RESPIRATORY PRN PRN Reason: SHORTNESS OF BREATH Levothyroxine Sodium (Levothyroxine 150 Mcg Tablet) 150 mcg PO DAILY [facility] Multivitamins (J-Woaifgh-Rzvbfsf C Tablet) 1 each PO DAILY [facility] Nystatin (Nystatin Cream 30 Gm) 1 applic TOPICAL BID PRN PRN Reason: Rash Ondansetron HCl (Ondansetron 2 Mg/Ml Sdv 2 Ml) 4 mg IVP Q8H PRN PRN Reason: vomiting, or N/V if npo Pantoprazole Sodium (Pantoprazole 40 Mg Sdv) 40 mg IVP Q24H [facility] Last Admin: 05/11/22 18:12 Dose: 40 mg Documented by: Vancomycin HCl (Vancomycin 1,000 Mg Oral Mery (Btl)) 125 mg PO QID [facility] Last Admin: 05/11/22 21:28 Dose: 125 mg Documented by: Vitals/I&O/Wt Last Vital Signs Temp 99.5 F 05/12/22 04:00 Pulse 70 05/12/22 06:00 Resp 19 H 05/12/22 04:00 BP 116/57 05/12/22 04:00 Pulse Ox 93 05/12/22 04:00 05/11/22 05/12/22 05/12/22 22:59 06:59 14:59 Intake Total 340 / 340 480 / 820 Output Total 2500 / 2500 0 / 2500 Balance -2160 / -2160 480 / -1680 Weight last 48 hrs Weight 107.91 kg Weight 106.1 kg Weight 107.19 kg Weight 116.573 kg Physical Exam Narrative: vs noted obese,using nc 02 heent-? nc/at, eomi, anicteric neck supple rt IJ Permacath lungs dull bases and crackles heart reg abd soft, nt, nd, + bs ext b/l edema Left bka neuro- a,a, o x 3 Data : 05/12/22 02:22 05/12/22 02:22 Micro: Microbiology 05/11/22 16:07 Stool Lactoferrin - Final Stool C.difficile Toxin B Gene (PCR) - Final Occult Blood (FIT) - Final 05/11/22 22:25 Blood Culture - Preliminary Blood SPECIMEN COLLECTED 05/11/22 22:20 Blood Culture - Preliminary Blood SPECIMEN COLLECTED 05/11/22 12:10 C.difficile Toxin B Gene (PCR) - Final Stool Routine Collection A&P Assessment and plan (1) ESRD (end stage renal disease): 61 year old female 1. ESRD- pt tolerated HD yesterday -will dec BP meds -extra SUF today -full HD in am 2. CHFrEF- remove fluids on dialysis 3.abd pain and diarrhea- Has had multiple hospitalizations-?review previos w/u - ct scan noted -significant atherosclerotic plaque in abd and pelvis- Q if having some ischema especially w/ low EF -avoid hypotension on dialysis -positive stool for c diff -on po vanco 4. anemia of ESRD - Iron sat 32% ferritin 967 - give GARRETT -pt in Oct 2020 with a high free kappa/ lambda ratio- please have pt see heme- can be as outpt -consider repeat and send SIFE 5. tsh 6 8. DM care per PMD seen and examined w/ RN- telehealth visit informed consent for Telehealth obtained time spent seeing pt and coordinating care =50+ minutes Status: Chronic Plan see above Attestations Medical Necessity Statement*: c diff, ESRD Time Spent in Patient Care: 16 - 35 minutes Coding Level of Care Code Acute Inspector And Hand Packager for g Fwd Diagnoses ESRD (end stage renal disease) N18.6
[2022-05-12 08:01] LABS: INR 1.27 (0.8-1.2)
[2022-05-12] MEDS: levothyroxine 150 mcg Tablet PO (08:55)
[2022-05-12] MEDS: b-complex-vitamin c Tablet 1 EACH PO (08:55)
[2022-05-12] MEDS: clopidogrel 75 mg Tablet PO (08:55)
[2022-05-12] MEDS: aspirin 81 mg Chew Tablet PO (08:55)
[2022-05-12] MEDS: acetaminophen 325 mg Tablet 650 MG PO (11:10)
[2022-05-12 11:46] LABS: Glucose Point of Care 143 mg/dL (70-110)
[2022-05-12] MEDS: heparin, porcine 1,000 unit/mL INJ 10 mL 10000 UNIT HE (13:53)
--- NOTE | 2022-05-12 14:45 | P.PN_ITS ---
Subjective Subjective: Patient was seen this morning, her is at bedside, she tells me she feels a lot better, her abdomen does not feel tight anymore, she feels significantly better after dialysis her diarrhea has also improved Vitals/I&O/Wt Last Vital Signs Temp 99.0 F 05/12/22 14:00 Pulse 104 H 05/12/22 14:00 Resp 18 05/12/22 14:00 BP 127/74 05/12/22 14:00 Pulse Ox 100 05/12/22 11:50 05/11/22 05/12/22 05/12/22 22:59 06:59 14:59 Intake Total 340 / 340 480 / 820 720 / 720 Output Total 2500 / 2500 0 / 2500 1800 / 1800 Balance -2160 / -2160 480 / -1680 -1080 / -1080 Weight last 48 hrs Weight 108.2 kg Weight 107.91 kg Weight 106.1 kg Weight 107.19 kg Weight 116.573 kg Physical Exam Const: COMMON NORMALS: no acute distress and patient oriented x3 Neck/C-Spine: COMMON NORMALS: no JVD Resp: COMMON NORMALS: normal respiratory effort, No retractions, No use of accessory muscles and clear to auscultation bilaterally AUSCULTATION: clear to auscultation bilaterally Cardio: COMMON NORMALS: no JVD, regular rate, regular rhythm, S1 normal heart sound present and S2 normal heart sound present RATE: regular rate RHYTHM: regular rhythm HEART SOUNDS: S1 normal heart sound present and S2 normal heart sound present GI: COMMON NORMALS: Normal to inspection, nondistended, normoactive bowel sounds present, Soft to palpation, non-tender and No hepatosplenomegaly present PALPATION: Yes Soft to palpation and Yes No hepatosplenomegaly present : OTHER: Left above-knee amputation, right lower extremity pitting edema Neuro: COMMON NORMALS: patient oriented x3 Psych: COMMON NORMALS: mental status grossly normal Data : 05/12/22 02:22 05/12/22 02:22 Micro: Microbiology 05/11/22 22:20 Blood Culture - Preliminary Blood 05/11/22 16:07 Stool Lactoferrin - Final Stool C.difficile Toxin B Gene (PCR) - Final Occult Blood (FIT) - Final 05/11/22 22:25 Blood Culture - Preliminary Blood SPECIMEN COLLECTED 05/11/22 12:10 C.difficile Toxin B Gene (PCR) - Final Stool Routine Collection A&P Assessment and plan (1) Hyperkalemia: Status: Acute (2) ESRD (end stage renal disease): Status: Chronic (3) Fluid overload: Status: Acute (4) Abdominal ascites: Status: Acute (5) Ischemic cardiomyopathy: Status: Chronic (6) Lymphedema: Status: Chronic (7) Peripheral arterial disease: Status: Chronic (8) CAD (coronary artery disease): Status: Chronic Qualifiers: Coronary Disease-Associated Artery/Lesion type: [place] artery [place] vs. transplanted heart: [place] heart Associated angina: without angina Qualified Code(s): I25.10 - Atherosclerotic heart disease of [place] coronary [place] without angina pectoris (9) Hypertension: Status: Chronic Qualifiers: Hypertension type: renovascular hypertension Qualified Code(s): I15.0 - Renovascular hypertension (10) Hyperlipidemia: Status: Chronic (11) Hypothyroidism: Status: Chronic Plan Hyperkalemia resolved -No chest pain, no palpitations, EKG no acute ST-T wave changes -Has received Kayexalate -Has received calcium gluconate -Has received dialysis Fluid overload -Resolving -Received dialysis yesterday, will receive dialysis today -Has abdominal ascites, resolved C. difficile positivity, p.o. vancomycin Has extensive mesenteric arteries with disease, he is already on aspirin, Plavix, statin -Continue for now -Denies any abdominal pain with eating meals, no rest pain -We will need to follow-up with vascular surgery as outpatient Acute on chronic diarrhea -Stool studies CAD, coutinue home medications ischemic cardiomyopathy HTN Attestations Medical Necessity Statement*: Patient requires hospitalization fluid overload, CHF, inpatient, greater than 2 midnights Coding Level of Care Code Acute Gas Meter Repairer for Chg Fwd Diagnoses Hyperkalemia E87.5 ESRD (end stage renal disease) N18.6 Fluid overload E87.70 Abdominal ascites R18.8 Ischemic cardiomyopathy I25.5 Lymphedema I89.0 Peripheral arterial disease I73.9 CAD (coronary artery disease) I25.10 Coronary Disease-Associated Artery/Lesion type: [place] artery [place] vs. transplanted heart: [place] heart Associated angina: without angina Hypertension I15.0 Hypertension type: renovascular hypertension Hyperlipidemia E78.5 Hypothyroidism E03.9
[2022-05-12 16:39] LABS: Glucose Point of Care 156 mg/dL (70-110)
--- NOTE | 2022-05-12 17:14 | US_ITS ---
WS: [id number] INDICATION: Ascites TECHNIQUE: Ultrasound abdomen 4 quadrant for paracentesis FINDINGS: Mild abdominal ascites is visualized. Perihepatic ascites. US/US abdomen lmt fluid [id number] IMPRESSION: Mild abdominal ascites.
[2022-05-12] MEDS: pantoprazole 40 mg SDV IVP (17:30)
[2022-05-13] VITALS (8 sets, daily range): BP systolic 123–163; BP diastolic 71–90; PULSE 76–82; RESP 16–19; TEMP 36.8–37.2; O2SAT 94–100
[2022-05-13 00:32] LABS: Glucose Point of Care 99 mg/dL (70-110)
[2022-05-13 02:18] LABS: Basophils # 0.1 10^3/uL (0.0-0.1); Basophils % 0.9 %; Eosinophils # 0.2 10^3/uL (0.0-0.8); Eosinophils % 3.6 %; Hematocrit 28.2 % (37.0-47.0); Hemoglobin 8.8 g/dL (11.5-15.3); Lymphocytes # 0.7 10^3/uL (0.8-4.8); Lymphocytes % 12.9 %; Mean Corpuscular HGB Conc 31.2 g/dL (30.0-36.0); Mean Corpuscular Hemoglobin 33.1 pg (28.0-34.0); Mean Platelet Volume 9.7 fL (7.4-10.4); Monocytes # 0.8 10^3/uL (0.2-0.9); Monocytes % 14.9 %; Neutrophils % 67.5 %; Nucleated Red Blood Cells % 0 %; Platelet Count 223 10^3/cmm (130-400); Red Blood Count 2.66 10^6/uL (4.1-5.3); Red Cell Distribution Width 16.8 % (12.1-15.1); White Blood Count 5.5 10^3/uL (4.0-10.0)
[2022-05-13 02:35] LABS: Alanine Aminotransferase 7 U/L (0-33); Albumin Level 3.2 g/dL (3.5-5.2); Alkaline Phosphatase 176 IU/L (35-105); Blood Urea Nitrogen 33 mg/dL (6-20); Calcium 8.4 mg/dL (8.5-10.5); Carbon Dioxide 23 mmol/L (22-29); Chloride 102 mmol/L (98-107); Globulin 4.2 g/dL (1.3-4.6); Glomerular Filtration Rate 7.3 mL/min (90-130); Glucose 123 mg/dL (65-115); Osmolality Calculated 295 mOsm/kg (285-295); Phosphorus 4.9 mg/dL (2.5-4.5); Sodium 138 mmol/L (136-145); Total Bilirubin 0.7 mg/dL (0.15-1.2); Total Protein 7.4 g/dL (6.6-8.7)
[2022-05-13 02:36] LABS: Anion Gap 18.1 (5-19); Aspartate Amino Transferase 17 U/L (0-32); Potassium 5.1 mmol/L (3.5-5.1)
[2022-05-13] MEDS: heparin 5,000 unit/mL INJ 1 mL 5000 UNIT SUBCUT (05:45)
[2022-05-13 06:48] LABS: Glucose Point of Care 107 mg/dL (70-110)
--- NOTE | 2022-05-13 09:24 | P.PN_ITS ---
Subjective Subjective: No new issues with Ms. Shaw today. Diarrhea seems to be getting a little bit better. Dialysis is pending. Hemodynamics appear stable. No other acute new issues. Vitals/I&O/Wt Last Vital Signs Temp 98.5 F 05/13/22 07:49 Pulse 76 05/13/22 09:20 Resp 17 05/13/22 09:20 BP 140/77 05/13/22 07:49 Pulse Ox 94 05/13/22 09:20 05/12/22 05/13/22 05/13/22 22:59 06:59 14:59 Intake Total 600 / 1320 680 / 2000 360 / 360 Output Total 2 Balance 600 / -480 678 / 198 360 / 360 Weight last 48 hrs Weight 108.862 kg Weight 108.2 kg Weight 107.91 kg Weight 106.1 kg Weight 107.19 kg Weight 116.573 kg Physical Exam Narrative: Constitutional: Awake, comfortable HEENT: Wet mucosa, no jvp, non icteric Lungs: Bilaterally clear without discernible wheeze or rales in all lung zones CVS: S1 S2, no murmurs Abdo: Soft, BS ok Ext 4: chronic edema, peripheral perfusion with no cyanosis Neurological: Grossly non-focal Data : 05/13/22 01:46 05/13/22 01:46 Micro: Microbiology 05/11/22 22:25 Blood Culture - Preliminary Blood NEGATIVE TO DATE 05/11/22 16:07 Stool Lactoferrin - Final Stool Enteric Pathogens (PCR) - Final Parasite Antigen Panel - Final C.difficile Toxin B Gene (PCR) - Final Occult Blood (FIT) - Final 05/11/22 22:20 Blood Culture - Preliminary Blood A&P Assessment and plan (1) ESRD (end stage renal disease): Status: Chronic Plan 1. ESRD For dialysis this afternoon, 2 potassium bath, 3.5 hours, ultrafiltration 3 L. Continue Monday, Monday, Monday schedule Dose medication for GFR less than 15 on dialysis 2. Diarrhea Appears to be slowly improving Completing treatment for C. difficile colitis 3. Hemodynamics Look good 4. Chronic ESRD issues Can be managed as an outpatient as part of standard monthly management. Okay for discharge after dialysis from my own perspective today. Thank you for consultation Exam and interview performed with aid of bedside RN using telemedicine Time spent 20 min inc > 50% of time in face to face counseling João Vazquez MD [facility] Emergency Department [phone] Attestations Medical Necessity Statement*: eval for ESRD Coding Level of Care Code Acute Storage Management Architect for Chg Fwd Diagnoses ESRD (end stage renal disease) N18.6
[2022-05-13] MEDS: clopidogrel 75 mg Tablet PO (09:29)
[2022-05-13] MEDS: levothyroxine 150 mcg Tablet PO (09:29)
[2022-05-13] MEDS: aspirin 81 mg Chew Tablet PO (09:29)
[2022-05-13] MEDS: carvedilol 25 mg Tablet PO (09:29)
[2022-05-13] MEDS: b-complex-vitamin c Tablet 1 EACH PO (09:29)
[2022-05-13] MEDS: hyDRALAzine 25 mg Tablet PO (09:30)
[2022-05-13 10:57] LABS: Glucose Point of Care 152 mg/dL (70-110)
--- NOTE | 2022-05-13 11:36 | PM.DCS ---
Discharge Providers Date of Admission: 05/11/22 15:32 Date of Discharge: May 13, 2022 Attending Provider at Admission: Sudheer Spaulding MD Attending Provider at Discharge: Sudheer Spaulding MD Primary Care Provider: Karen Bear MD Diagnoses at Discharge Discharge Diagnosis (1) ESRD (end stage renal disease): Status: Chronic Permanent problem details: previously on peritoneal dialysis currently on hemodialysis Reason for Visit Reason for Visit: chronic diarreah Hospital Course Hospital Course This is a? 61 year old female with a history of coronary disease s/p multiple stents (?06/2021: LAD with orbital arthrectomy and PCI with JD x 2 including bifurcation stenting of mid LAD and diagonal artery using mini-crush technique (2 stents placed in LAD and 1 in diagonal artery), ischemic cardiomyopathy (last LVEF of 25%, 09/2021), end-stage renal disease on hemodialysis via tunneled catheter x ~1 yr, hypertension, type 2 diabetes,? 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 Patient was admitted to [facility] for fluid overload, she received inpatient dialysis, clinically improved, discharged home with her regular dialysis days Monday. For hyperkalemia, resolved with dialysis. For her acute on chronic diarrhea, C. difficile was positive, treated with p.o. vancomycin, diarrhea improved, discharged with home p.o. vancomycin Has extensive mesenteric arteries with disease, she is already on aspirin, Plavix, statin -Continue for now -Denies any abdominal pain with eating meals, no rest pain -She tells me she will follow-up with her vascular surgeon in [facility] Physical Exam Const: COMMON NORMALS: no acute distress and patient oriented x3 Resp: COMMON NORMALS: normal respiratory effort, No retractions, No use of accessory muscles and clear to auscultation bilaterally AUSCULTATION: clear to auscultation bilaterally Cardio: COMMON NORMALS: regular rate, regular rhythm, S1 normal heart sound present and S2 normal heart sound present RATE: regular rate RHYTHM: regular rhythm HEART SOUNDS: S1 normal heart sound present and S2 normal heart sound present GI: COMMON NORMALS: Normal to inspection, nondistended, normoactive bowel sounds present, Soft to palpation and non-tender PALPATION: Yes Soft to palpation Neuro: COMMON NORMALS: patient oriented x3 Psych: COMMON NORMALS: mental status grossly normal Discharge Data Studies Completed and Pending Completed Studies During Hospitalization Category Date Time Status CT abdomen pelvis wo con [id number] Stat Cat Scan 05/11/22 12:00 Completed US abdomen lmt fluid [id number] Urgent Ultrasound 05/12/22 17:14 Completed Pending at discharge Category Date Time Status Albumin Body Fluid Routine Lab 05/11/22 17:14 Ordered Amylase Body Fluid Routine Lab 05/11/22 17:14 Ordered Anaerobic Culture Routine Lab 05/11/22 17:14 Ordered Blood Culture Stat Lab 05/11/22 22:25 Results Body Fluid Analysis Routine Lab 05/11/22 17:14 Ordered Body Fluid Culture & GS Routine Lab 05/11/22 17:14 Ordered Body Fluid Specific [place] Routine Lab 05/11/22 17:14 Ordered Cholesterol Body Fluid Routine Lab 05/11/22 17:14 Ordered Complete Blood Count w/Auto AM LABS Lab 05/14/22 04:00 Ordered Complete Blood Count w/Auto AM LABS Lab 05/14/22 04:00 Ordered Comprehensive Metabolic Panel AM LABS Lab 05/14/22 04:00 Ordered Comprehensive Metabolic Panel AM LABS Lab 05/14/22 04:00 Ordered Cyto Order Verification Routine Lab 05/11/22 17:14 Ordered Fluid Alkaline Phos. Routine Lab 05/11/22 17:14 Ordered Glucose Body Fluid Routine Lab 05/11/22 17:14 Ordered LDH Body Fluid Routine Lab 05/11/22 17:14 Ordered Magnesium AM LABS Lab 05/14/22 04:00 Ordered Magnesium AM LABS Lab 05/14/22 04:00 Ordered Mycobacteria, Culture w/Fluor Routine Lab 05/11/22 17:14 Ordered Phosphorus AM LABS Lab 05/14/22 04:00 Ordered Phosphorus AM LABS Lab 05/14/22 04:00 Ordered Total Protein Body Fluid Routine Lab 05/11/22 17:14 Ordered Triglycerides Body Fluid Routine Lab 05/11/22 17:14 Ordered Uric Acid Body Fluid Routine Lab 05/11/22 17:14 Ordered Urinalysis and Microscopic Stat Lab 05/11/22 12:01 Uncollected pH Body Fluid Routine Lab 05/11/22 17:14 Ordered Radiology Impressions Abdomen/Pelvis CT 05/11/22 12:00 IMPRESSION: 1. Moderate amount of ascites throughout the abdomen. May be related to the peritoneal dialysis. 2. There is extensive atherosclerotic plaque throughout the abdomen and pelvis. Heavily diseased mesenteric arteries places the patient at risk for mesenteric ischemia. At this time there is no pneumatosis or obstruction identified. 3. Continued effusion at the LEFT lung base. Cannot further evaluate without IV contrast. 4. Severe renal atrophy. 5. Cardiomegaly. Abdomen Ultrasound 05/12/22 17:14 IMPRESSION: Mild abdominal ascites. Laboratory Results WBC 5.5 10^3/uL (4.0-10.0) 05/13/22 01:46 RBC 2.66 10^6/uL (4.1-5.3) L 05/13/22 01:46 Hgb 8.8 g/dL (11.5-15.3) L 05/13/22 01:46 Hct 28.2 % (37.0-47.0) L 05/13/22 01:46 MCV 106.0 fl (81-99) H D 05/13/22 01:46 MCH 33.1 pg (28.0-34.0) 05/13/22 01:46 MCHC 31.2 g/dL (30.0-36.0) D 05/13/22 01:46 RDW 16.8 % (12.1-15.1) H 05/13/22 01:46 Plt Count 223 10^3/cmm (130-400) 05/13/22 01:46 MPV 9.7 fL (7.4-10.4) 05/13/22 01:46 Neut % (Auto) 67.5 % 05/13/22 01:46 Lymph % (Auto) 12.9 % 05/13/22 01:46 [place] % (Auto) 14.9 % 05/13/22 01:46 Eos % (Auto) 3.6 % 05/13/22 01:46 Baso % (Auto) 0.9 % 05/13/22 01:46 Neut # (Auto) 3.70 10^3/uL (1.8-7.7) 05/13/22 01:46 Lymph # (Auto) 0.7 10^3/uL (0.8-4.8) L 05/13/22 01:46 [place] # (Auto) 0.8 10^3/uL (0.2-0.9) 05/13/22 01:46 Eos # (Auto) 0.2 10^3/uL (0.0-0.8) 05/13/22 01:46 Baso # (Auto) 0.1 10^3/uL (0.0-0.1) 05/13/22 01:46 Nucleated RBC % (auto) 0 % 05/13/22 01:46 Nucleated RBCs # 0.0 /100WBC 05/13/22 01:46 PT 16.20 SECONDS (12.1-14.9) H 05/12/22 02:22 INR 1.27 (0.8-1.2) H 05/12/22 02:22 APTT 32.2 SECONDS (23.9-36.7) 05/12/22 02:22 Sodium 138 mmol/L (136-145) 05/13/22 01:46 Potassium 5.1 mmol/L (3.5-5.1) 05/13/22 01:46 Chloride 102 mmol/L (98-107) 05/13/22 01:46 Carbon Dioxide 23 mmol/L (22-29) 05/13/22 01:46 Anion Gap 18.1 (5-19) 05/13/22 01:46 BUN 33 mg/dL (6-20) H 05/13/22 01:46 Creatinine 5.9 mg/dL (0.5-0.9) H* 05/13/22 01:46 GFR Calculation 7.3 mL/min (90-130) L 05/13/22 01:46 Glucose 123 mg/dL (65-115) H 05/13/22 01:46 POC Glucose 152 mg/dL (70-110) H 05/13/22 10:48 Calculated Osmolality 295 mOsm/kg (285-295) 05/13/22 01:46 Uric Acid 8.2 mg/dL (2.4-5.7) H 05/11/22 12:24 Calcium 8.4 mg/dL (8.5-10.5) L 05/13/22 01:46 Phosphorus 4.9 mg/dL (2.5-4.5) H 05/13/22 01:46 Magnesium 2.0 mg/dL (1.7-2.3) 05/13/22 01:46 Iron 31 ug/dL (37-145) L 05/12/22 02:22 TIBC 96 mcg/dl 05/12/22 02:22 % Saturation 32.2 % (20-50) 05/12/22 02:22 Unsat Iron Binding 65 ug/dL (112-347) L 05/12/22 02:22 Ferritin 967 ng/mL (15-150) H 05/12/22 02:22 Total Bilirubin 0.7 mg/dL (0.15-1.2) 05/13/22 01:46 GGT 70 U/L (5-36) H 05/11/22 16:05 AST 17 U/L (0-32) 05/13/22 01:46 ALT 7 U/L (0-33) 05/13/22 01:46 Alkaline Phosphatase 176 IU/L (35-105) H 05/13/22 01:46 C-Reactive Protein 13.8 mg/L (0.0-4.9) H 05/11/22 16:05 Total Protein 7.4 g/dL (6.6-8.7) 05/13/22 01:46 Albumin 3.2 g/dL (3.5-5.2) L 05/13/22 01:46 Globulin 4.2 g/dL (1.3-4.6) 05/13/22 01:46 Lipase 12 U/L (13-60) L 05/11/22 12:24 25-OH Vitamin D Total 38 ng/mL (30-100) 05/12/22 02:22 Procalcitonin 0.22 ng/mL (0-0.5) 05/11/22 16:05 TSH 5.99 uIU/mL (0.27-4.20) H 05/11/22 16:05 Free T4 1.19 ng/dL (0.82-1.77) 05/11/22 12:24 Hep Bs Antigen Non-reactive (Nonreactive) 05/11/22 22:25 Hep Bs Antibody 153.5 (11.5-1000) 05/11/22 22:25 Hepatitis C Antibody Non-reactive (Nonreactive) 05/11/22 22:25 Vitals Last Vital Signs Temp 98.5 F 05/13/22 07:49 Pulse 76 05/13/22 09:20 Resp 17 05/13/22 09:20 BP 140/77 05/13/22 07:49 Pulse Ox 94 05/13/22 09:20 Discharge Plan Discharge Patient Disposition: Home Condition: Stable Prescriptions: New vancomycin 125 mg capsule 125 mg PO Q6H 9 Days Qty: 36 0RF Continued Synthroid 150 mcg tablet 150 mcg PO DAILY Qty: 30 5RF gentamicin 0.1 % cream 1 applic topical TID PRN (Reason: Rash) 0RF nystatin 100,000 unit/gram cream 1 applic topical BID PRN (Reason: Rash) 0RF (DME) Stump [employer] Dipper See Rx Instructions .Route .MEDSUPPLY Qty: 1 0RF Rx Instructions: As directed hydralazine 50 mg tablet 50 mg PO BID 0RF clopidogrel 75 mg tablet 75 mg PO DAILY 90 Days Qty: 90 2RF nitroglycerin 0.4 mg Tablet, Sublingual 0.4 mg sublingual Q5M PRN (Reason: Chest Pain) 30 Days Qty: 30 2RF aspirin [Children's Aspirin] 81 mg Tablet,Chewable 81 mg PO DAILY 90 Days Qty: 90 2RF Tums Ultra 470 mg calcium (1,177 mg) tablet,chewable 3,531 mg PO TIDWM PRN (Reason: Heartburn) 0RF carvedilol [Coreg] 25 mg Tablet 25 mg PO BID 0RF Changed Lasix 80 mg Tablet 80 mg PO BID Qty: 0 0RF Discontinued doxazosin [Cardura] 2 mg tablet 8 mg PO BID 0RF Discharge Orders: Discharge Order (Routine); Ordered 05/13/22 Ordered By: Sudheer Spaulding Referrals: Karen Bear MD [Primary Care Provider] - Discharge Diet: Advance as tolerated Discharge Activity: Resume usual activity Patient Instructions: Opioid Safety Activity Restrictions/Additional Instructions: - Take antibiotics as prescribed for C. difficile colitis, hydrate well -Follow-up with primary care provider in 1 week -Follow-up with vascular surgeon Discharge Attestations Time Spent in Discharge Care*: less than 30 min Status at Discharge: Cognitive status at discharge: cognitively intact, Behavioral status at discharge: cooperative, Quality Metrics Clinical Quality Measures [ No reported AMI, CVA or VTE this stay] Coding Level of Care Code Acute Chg FW DC note Diagnoses ESRD (end stage renal disease) N18.6
--- NOTE | 2022-05-13 14:39 | PC.NURSE ---
dialysis today.tolerated well.discharge instructions given and explained.pt verb understanding of instructions.discharged via w/c to exit. to drive pt home
== END 2022-05-13 14:42 | disposition home health service (06) | DRG 291 ==
LOC: ER 12:06 → MEDSURG 16:09
PROVIDERS: Internal Medicine Nephrology; Admitting Provider Family Medicine; Emergency Provider Emergency Medicine; PCP Family Medicine; Visit Provider Family Medicine
DX: I13.2 Hypertensive heart and chronic kidney disease with heart failure and with stage 5 chronic kidney disease, or end stage renal disease (principal); N18.6 End stage renal disease; A04.72 Enterocolitis due to Clostridium difficile, not specified as recurrent; E11.22 Type 2 diabetes mellitus with diabetic chronic kidney disease; I50.22 Chronic systolic (congestive) heart failure; Z99.2 Dependence on renal dialysis; E87.5 Hyperkalemia; D63.1 Anemia in chronic kidney disease; I25.10 Atherosclerotic heart disease of native coronary artery without angina pectoris; Z95.5 Presence of coronary angioplasty implant and graft; E11.610 Type 2 diabetes mellitus with diabetic neuropathic arthropathy; Z86.14 Personal history of Methicillin resistant Staphylococcus aureus infection; E78.5 Hyperlipidemia, unspecified; E03.9 Hypothyroidism, unspecified; I25.5 Ischemic cardiomyopathy; E11.42 Type 2 diabetes mellitus with diabetic polyneuropathy; Z79.82 Long term (current) use of aspirin; Z79.02 Long term (current) use of antithrombotics/antiplatelets; Z89.512 Acquired absence of left leg below knee; I15.0 Renovascular hypertension
CPT/HCPCS: 36415; 36416; 49083; 74176; 76705; 80053; 82274; 82306; 82728; 82962; 82977; 83540; 83550; 83630; 83690; 83735; 84100; 84145; 84439; 84443; 84550; 85025; 85610; 85730; 86140; 86706; 86803; 87040; 87340; 87493; 87506; 93005; 94664; 96365; 96372; 96375; 99285; C9113; J0610; J1644; J2765; J3370; Q3014

== ENCOUNTER 2022-05-15 18:08 | Emergency (ER) | payer MEDICARE, MEDICAID, SELFPAY ==
[2022-05-15 18:21] VITALS: BP 154/82; PULSE 70; RESP 16; TEMP 36.4; O2SAT 96; BMI 43.5
--- NOTE | 2022-05-15 18:33 | CTR_ITS ---
PROCEDURE INFORMATION: Exam: CT Head Without Contrast Exam date and time: 05/15/2022 6:56 PM Age: 61 years old Clinical indication: Visual disturbance; Additional info: Vision loss TECHNIQUE: Imaging protocol: Computed tomography of the head without contrast. Radiation optimization: All CT scans at this facility use at least one of these dose optimization techniques: automated exposure control; mA and/or kV adjustment per patient size (includes targeted exams where dose is matched to clinical indication); or iterative reconstruction. COMPARISON: MR head wo con* [id number] 08/19/2021 8:44 AM RADIATION DOSE METRICS: Total DLP (mGy-cm): 685.43 FINDINGS: Brain: Normal. No hemorrhage. Unremarkable white matter. No mass effect. Cerebral ventricles: No ventriculomegaly. Paranasal sinuses: Visualized sinuses are unremarkable. No fluid levels. Mastoid air cells: Visualized mastoid air cells are well aerated. Bones/joints: Unremarkable. No acute fracture. Soft tissues: Unremarkable. The orbits are unremarkable. The lens of the right globe is very small/hypoplastic compared to the left. CT/CT head wo con* [id number] IMPRESSION: No acute intracranial abnormality. The lens of the right globe is very small/hypoplastic compared to the left.
--- NOTE | 2022-05-15 18:36 | W.ED.EYEPROB ---
HPI - Eye Problem General: Chief complaint: Eye Problems Stated complaint: Blurred Vision Time Seen by Provider: 05/15/22 18:25 Source: patient Mode of arrival: ambulatory Limitations: no limitations History of Present Illness: 61-year-old female who states that she has a history of cataracts along with end-stage renal disease she was recently admitted here for C. difficile was discharged on Monday on oral vancomycin states that since Monday she has had progressive vision loss. States that both eyes is progressively gotten more blurred visually until today where she states she cannot barely see she is only able to see shadows along with bright light with either eye denies any pain denies any fever denies any headache. Associated symptoms: Denies fever(s), headache(s), nausea, neck pain or vomiting Review of Systems Const: Denies: fever(s), chills, body aches or change in appetite Eyes: Reports: change in vision and blurry vision; Denies: eye discomfort ENMT: Denies: throat pain or dental pain Card: Denies: chest pain Resp: Denies: dyspnea GI: Denies: abdominal pain, nausea, vomiting or diarrhea : Denies: dysuria Musc: Denies: neck pain or back pain Skin/Breast: Denies: rash Neuro: Denies: headache(s) Psych: Denies: depression Jimmy/Lymph: Denies: easy bruising All/Imm: Denies: urticaria PFSH ED PFSH: Medical History Anemia Chronic kidney disease and blood loss, has previously required transfusion Aortic valve endocarditis (~04/2020) CAD (coronary artery disease) Charcot's joint of foot in type 2 diabetes mellitus Congestive heart failure systolic Diabetes Diabetes mellitus type 2, not on medications, HbA1c 10/2021 5.2 Diabetic ulcer of left foot Diabetic ulcer of right foot Difficult intravenous access Epidural abscess (~2017) ESRD (end stage renal disease) previously on peritoneal dialysis currently on hemodialysis History of colon polyps History of MRSA infection spinal abscess 2017 Hyperlipidemia Hypertension Hypothyroidism Ischemic cardiomyopathy EF 05/2020 65% >> 06/2021 15%, 09/2021 25% 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 Severe proximal to mid LAD stenosis. Severe ostial diagonal artery stenosis. 2. Successful revascularization of the LAD with orbital arthrectomy and PCI with JD x 2 including bifurcation stenting of mid LAD and diagonal artery using mini-crush technique (2 stents placed in LAD and 1 in diagonal artery). History of cholecystectomy History of colonoscopy with polypectomy 2017 History of left below knee amputation History of lumbar surgery Due to epidural abscess in March 2018 Peritoneal dialysis catheter in place removal 05/20/21 S/P hemodialysis catheter insertion multiple Family History Mother Cancer Uterine and breast cancer Father Diabetes Other CAD (coronary artery disease) Social History Smoking and tobacco status: never smoked Alcohol intake: current Alcohol intake frequency: holidays/special occasions only Marital status: Physical Exam Const: COMMON NORMALS: no acute distress, patient oriented x3 and healthy appearing HENMT: COMMON NORMALS: normocephalic and atraumatic HEAD & SCALP: normocephalic and atraumatic Eye: COMMON NORMALS: Equal, round and reactive pupils present and EOMs intact bilaterally PUPIL: Yes Equal, round and reactive pupils present OTHER: Patient's visual acuity is less than 20/200 for both eyes she is able to see bright light with both eyes she is able to see my gloved hand but not able to read fingers even up close bilaterally with each eye Neck/C-Spine: COMMON NORMALS: full ROM and supple Chest: COMMONS NORMALS: normal inspection of the chest and normal palpation of entire chest wall Resp: COMMON NORMALS: normal respiratory effort, No retractions, No use of accessory muscles and clear to auscultation bilaterally AUSCULTATION: clear to auscultation bilaterally Cardio: COMMON NORMALS: regular rate, regular rhythm and No murmurs present (Cardio) RATE: regular rate RHYTHM: regular rhythm GI: COMMON NORMALS: Normal to inspection, nondistended, normoactive bowel sounds present, Soft to palpation, non-tender and no masses PALPATION: Yes Soft to palpation Extremity: COMMON NORMALS: normal to inspection and full ROM Neuro: COMMON NORMALS: patient oriented x3, moves all extremities and no focal motor deficits Psych: COMMON NORMALS: mental status grossly normal, Normal thought process present and cooperative THOUGHT PROCESS: Normal thought process present Skin: COMMON NORMALS: no rashes or lesions noted and no wounds GENERAL SKIN EXAM: no rashes or lesions noted Course Vital Signs: Vital signs: Vital Signs Temperature 97.6 F 05/15/22 18:21 Pulse Rate 70 05/15/22 18:21 Respiratory Rate 16 05/15/22 18:21 Blood Pressure 154/82 05/15/22 18:21 Pulse Oximetry 96 05/15/22 18:21 MDM - Eye Problem Medical Decision Making Patient presents here with gradual visual loss of bilateral eyes. She has no pain no signs of retinal detachment no signs of acute angle glaucoma. Head CT here is normal no signs of a stroke as it was bilateral I have spoke to her cardiology associate Dr. Adams who recommends following up with him in clinic on Monday I did inform him she basically can only see shapes in vision and he did recommend follow-up on Monday in his office I informed patient of this as well she understands and agrees to plan. Lab Data : 05/15/22 18:45 05/15/22 18:[address] 05/15/22 18:33 IMPRESSION: No acute intracranial abnormality. The lens of the right globe is very small/hypoplastic compared to the left. Laboratory Results WBC 5.7 10^3/uL (4.0-10.0) 05/15/22 18:45 RBC 2.91 10^6/uL (4.1-5.3) L 05/15/22 18:45 Hgb 9.5 g/dL (11.5-15.3) L 05/15/22 18:45 Hct 29.5 % (37.0-47.0) L 05/15/22 18:45 MCV 101.4 fl (81-99) H 05/15/22 18:45 MCH 32.6 pg (28.0-34.0) 05/15/22 18:45 MCHC 32.2 g/dL (30.0-36.0) 05/15/22 18:45 RDW 16.0 % (12.1-15.1) H 05/15/22 18:45 Plt Count 231 10^3/cmm (130-400) 05/15/22 18:45 MPV 9.4 fL (7.4-10.4) 05/15/22 18:45 Neut % (Auto) 68.9 % 05/15/22 18:45 Lymph % (Auto) 12.4 % 05/15/22 18:45 [place] % (Auto) 13.1 % 05/15/22 18:45 Eos % (Auto) 4.1 % 05/15/22 18:45 Baso % (Auto) 1.1 % 05/15/22 18:45 Neut # (Auto) 3.90 10^3/uL (1.8-7.7) 05/15/22 18:45 Lymph # (Auto) 0.7 10^3/uL (0.8-4.8) L 05/15/22 18:45 [place] # (Auto) 0.7 10^3/uL (0.2-0.9) 05/15/22 18:45 Eos # (Auto) 0.2 10^3/uL (0.0-0.8) 05/15/22 18:45 Baso # (Auto) 0.1 10^3/uL (0.0-0.1) 05/15/22 18:45 Nucleated RBC % (auto) 0 % 05/15/22 18:45 Nucleated RBCs # 0.0 /100WBC 05/15/22 18:45 Sodium 135 mmol/L (136-145) L 05/15/22 18:45 Potassium 5.3 mmol/L (3.5-5.1) H 05/15/22 18:45 Chloride 98 mmol/L (98-107) 05/15/22 18:45 Carbon Dioxide 25 mmol/L (22-29) 05/15/22 18:45 Anion Gap 17.3 (5-19) 05/15/22 18:45 BUN 38 mg/dL (6-20) H 05/15/22 18:45 Creatinine 6.2 mg/dL (0.5-0.9) H* 05/15/22 18:45 GFR Calculation 6.9 mL/min (90-130) L 05/15/22 18:45 Glucose 123 mg/dL (65-115) H 05/15/22 18:45 Calculated Osmolality 290 mOsm/kg (285-295) 05/15/22 18:45 Calcium 8.8 mg/dL (8.5-10.5) 05/15/22 18:45 Total Bilirubin 0.7 mg/dL (0.15-1.2) 05/15/22 18:45 AST 12 U/L (0-32) 05/15/22 18:45 ALT 8 U/L (0-33) 05/15/22 18:45 Alkaline Phosphatase 176 IU/L (35-105) H 05/15/22 18:45 Total Protein 7.8 g/dL (6.6-8.7) 05/15/22 18:45 Albumin 3.3 g/dL (3.5-5.2) L 05/15/22 18:45 Globulin 4.5 g/dL (1.3-4.6) 05/15/22 18:45 Vancomycin Trough < 4.0 ug/mL (10-15) L 05/15/22 18:45 Discharge Plan Discharge Patient Disposition: Home Clinical Impression: Blurred vision, bilateral Condition: Stable Prescriptions: No Action Synthroid 150 mcg tablet 150 mcg PO DAILY Qty: 30 5RF gentamicin 0.1 % cream 1 applic topical TID PRN (Reason: Rash) 0RF nystatin 100,000 unit/gram cream 1 applic topical BID PRN (Reason: Rash) 0RF (DME) Stump [employer] See Rx Instructions .Route .MEDSUPPLY Qty: 1 0RF Rx Instructions: As directed hydralazine 50 mg tablet 50 mg PO BID 0RF clopidogrel 75 mg tablet 75 mg PO DAILY 90 Days Qty: 90 2RF nitroglycerin 0.4 mg Tablet, Sublingual 0.4 mg sublingual Q5M PRN (Reason: Chest Pain) 30 Days Qty: 30 2RF aspirin [Children's Aspirin] 81 mg Tablet,Chewable 81 mg PO DAILY 90 Days Qty: 90 2RF Tums Ultra 470 mg calcium (1,177 mg) tablet,chewable 3,531 mg PO TIDWM PRN (Reason: Heartburn) 0RF carvedilol [Coreg] 25 mg Tablet 25 mg PO BID 0RF vancomycin 125 mg capsule 125 mg PO Q6H 9 Days Qty: 36 0RF Lasix 80 mg Tablet 80 mg PO BID Qty: 0 0RF Discharge Orders: Discharge ED (Routine); Ordered 05/15/22 Ordered By: Telma Darnell Referrals: Karen Bear MD [Primary Care Provider] - Discharge Diet: Advance as tolerated Discharge Activity: Resume usual activity Patient Instructions: Vision Problems Coding Level of Care Code ED Leaf Stripper for Chg Fwd Exam Comprehensive
[2022-05-15 19:00] LABS: Basophils # 0.1 10^3/uL (0.0-0.1); Basophils % 1.1 %; Eosinophils # 0.2 10^3/uL (0.0-0.8); Eosinophils % 4.1 %; Hematocrit 29.5 % (37.0-47.0); Hemoglobin 9.5 g/dL (11.5-15.3); Lymphocytes # 0.7 10^3/uL (0.8-4.8); Lymphocytes % 12.4 %; Mean Corpuscular HGB Conc 32.2 g/dL (30.0-36.0); Mean Corpuscular Hemoglobin 32.6 pg (28.0-34.0); Mean Corpuscular Volume 101.4 fl (81-99); Mean Platelet Volume 9.4 fL (7.4-10.4); Monocytes # 0.7 10^3/uL (0.2-0.9); Monocytes % 13.1 %; Neutrophils % 68.9 %; Nucleated Red Blood Cells % 0 %; Platelet Count 231 10^3/cmm (130-400); Red Blood Count 2.91 10^6/uL (4.1-5.3); White Blood Count 5.7 10^3/uL (4.0-10.0)
[2022-05-15 19:17] LABS: Alanine Aminotransferase 8 U/L (0-33); Albumin Level 3.3 g/dL (3.5-5.2); Alkaline Phosphatase 176 IU/L (35-105); Anion Gap 17.3 (5-19); Aspartate Amino Transferase 12 U/L (0-32); Blood Urea Nitrogen 38 mg/dL (6-20); Calcium 8.8 mg/dL (8.5-10.5); Carbon Dioxide 25 mmol/L (22-29); Chloride 98 mmol/L (98-107); Globulin 4.5 g/dL (1.3-4.6); Glomerular Filtration Rate 6.9 mL/min (90-130); Glucose 123 mg/dL (65-115); Osmolality Calculated 290 mOsm/kg (285-295); Potassium 5.3 mmol/L (3.5-5.1); Sodium 135 mmol/L (136-145); Total Bilirubin 0.7 mg/dL (0.15-1.2); Total Protein 7.8 g/dL (6.6-8.7)
[2022-05-15 19:18] LABS: Vancomycin Trough < 4.0 ug/mL (10-15)
[2022-05-15 19:24] VITALS: BP 142/90; PULSE 70; RESP 18
[2022-05-15 19:46] VITALS: BP 142/90; PULSE 70; RESP 18
== END 2022-05-15 19:49 | disposition home or self-care (01) ==
PROVIDERS: Emergency Provider Emergency Medicine; PCP Family Medicine
DX: H53.8 Other visual disturbances (principal); Z79.02 Long term (current) use of antithrombotics/antiplatelets; Z79.82 Long term (current) use of aspirin; I25.10 Atherosclerotic heart disease of native coronary artery without angina pectoris; I13.2 Hypertensive heart and chronic kidney disease with heart failure and with stage 5 chronic kidney disease, or end stage renal disease; E11.22 Type 2 diabetes mellitus with diabetic chronic kidney disease; N18.6 End stage renal disease; I50.9 Heart failure, unspecified; E78.5 Hyperlipidemia, unspecified; Z89.512 Acquired absence of left leg below knee
CPT/HCPCS: 70450; 80053; 80202; 85025; 99283

== ENCOUNTER 2022-05-20 10:22 | Inpatient (IN) | payer MEDICARE, MEDICAID, SELFPAY ==
[2022-05-20] VITALS (24 sets, daily range): BP systolic 106–151; BP diastolic 55–93; PULSE 62–79; RESP 11–23; TEMP 36.4–36.7; O2SAT 92–98; BMI 38.2
--- NOTE | 2022-05-20 10:27 | ECG_ITS ---
[facility] Test Date: 2022-05-20 Pat Name: Alesia Shaw Department: Room: Gender: Female Medical Physiologist: : 1960 Requested By: Shelton Junior Order Number: [id number] Leah MD: Fly Long M.D. Measurements Intervals [place] Rate: 62 P: 51 TN: 241 QRS: -48 QRSD: 149 T: 118 QT: 475 QTc: 485 Interpretive Statements SINUS RHYTHM WITH FIRST DEGREE AV BLOCK POSSIBLE LEFT ATRIAL ENLARGEMENT [-0.1mV P-WAVE IN V1/V2] LEFT AXIS DEVIATION [QRS AXIS < -30] LEFT BUNDLE BRANCH BLOCK [120+ ms QRS DURATION, 80+ ms Q/S IN V1/V2, 85+ ms R IN I/aVL/V5/V6] INTERPRETATION BASED ON A DEFAULT AGE OF 40 YEARS Compared to ECG 05/11/2022 14:17:36 Left bundle-branch block now present Left ventricular hypertrophy no longer present ST (T wave) deviation no longer present Electronically Signed On 05-20-2022 18:15:08 CDT by Fly Long M.D. [email or web address]
--- NOTE | 2022-05-20 11:09 | W.ED.GENADLT ---
HPI - General Adult General: Chief complaint: Nausea/Vomiting/Diarrhea Stated complaint: N/D/V Time Seen by Provider: 05/20/22 10:26 Source: patient Mode of arrival: ambulatory Limitations: no limitations History of Present Illness: 61-year-old female with end-stage renal disease on hemodialysis presents to the emergency room with persistent diarrhea and nausea with some vomiting. She has not been to her dialysis all week because she states she has been too sick to go. She will have multiple episodes of diarrhea per hour. She was hospitalized recently was discharged home initially with tablets and then changed to a liquid she felt that the liquid did better but she feels like she is worsening rather than improving at this point. Denies any hematochezia melena hematemesis or coffee-ground emesis. She actually states she has had some decrease in the swelling in her legs. She does make small amounts of urine and has not had any dysuria urgency or frequency denies any chest pain or shortness of breath. Has not noted any particular worsening orthopnea. Onset (ago): day(s) Location: abdomen Pain Consistency: constant Relieving factors: none Exacerbating factors: none Associated symptoms: Reports decreased appetite, malaise, nausea, vomiting and weakness; Deny chest pain, confusion, cough, diaphoresis, dyspnea, fevers/chills, headache(s), rash, palpitations, seizures, short of breath or syncope Treatments prior to arrival: none Review of Systems Const: Reports: malaise; Denies: fever(s), chills, fatigue or diaphoresis ENMT: Denies: throat pain, ear or mastoid pain, nasal discharge or nasal congestion Card: Denies: chest pain, palpitations or syncope Resp: Denies: dyspnea GI: Reports: abdominal pain, nausea, vomiting and diarrhea : Denies: flank pain, difficulty voiding, dysuria, urinary frequency or urinary urgency Skin/Breast: Denies: rash Neuro: Denies: headache(s) or confusion PFS ED PFSH: Medical History Anemia Chronic kidney disease and blood loss, has previously required transfusion Aortic valve endocarditis (~04/2020) CAD (coronary artery disease) Charcot's joint of foot in type 2 diabetes mellitus Congestive heart failure systolic Diabetes Diabetes mellitus type 2, not on medications, HbA1c 10/2021 5.2 Diabetic ulcer of left foot Diabetic ulcer of right foot Difficult intravenous access Epidural abscess (~2017) ESRD (end stage renal disease) previously on peritoneal dialysis currently on hemodialysis History of colon polyps History of MRSA infection spinal abscess 2017 Hyperlipidemia Hypertension Hypothyroidism Ischemic cardiomyopathy EF 05/2020 65% >> 06/2021 15%, 09/2021 25% 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 Severe proximal to mid LAD stenosis. Severe ostial diagonal artery stenosis. 2. Successful revascularization of the LAD with orbital arthrectomy and PCI with JD x 2 including bifurcation stenting of mid LAD and diagonal artery using mini-crush technique (2 stents placed in LAD and 1 in diagonal artery). History of cholecystectomy History of colonoscopy with polypectomy 2017 History of left below knee amputation History of lumbar surgery Due to epidural abscess in March 2018 Peritoneal dialysis catheter in place removal 05/20/21 S/P hemodialysis catheter insertion multiple Family History Mother Cancer Uterine and breast cancer Father Diabetes Other CAD (coronary artery disease) Social History Smoking and tobacco status: never smoked Alcohol intake: current Alcohol intake frequency: holidays/special occasions only Marital status: Physical Exam Const: COMMON NORMALS: no acute distress GENERAL APPEARANCE: cooperative and comfortable ORIENTATION/CONSCIOUSNESS: Yes awake, Yes oriented to person, Yes oriented to place and Yes oriented to time HENMT: COMMON NORMALS: normocephalic, atraumatic and hearing grossly normal bilaterally HEAD & SCALP: normocephalic and atraumatic Eye: COMMON NORMALS: Equal, round and reactive pupils present, EOMs intact bilaterally, conjunctivae normal and no scleral icterus CONJUNCTIVA: Yes conjunctivae normal PUPIL: Yes Equal, round and reactive pupils present Neck/C-Spine: COMMON NORMALS: full ROM, no lymphadenopathy and supple Lymph: LYMPHATIC: no lymphadenopathy noted and no lymphedema noted Resp: COMMON NORMALS: normal respiratory effort, No retractions, No use of accessory muscles and clear to auscultation bilaterally AUSCULTATION: clear to auscultation bilaterally Cardio: COMMON NORMALS: regular rate, regular rhythm and No murmurs present (Cardio) RATE: regular rate RHYTHM: regular rhythm GI: COMMON NORMALS: No hepatosplenomegaly present AUSCULTATION: Yes normoactive bowel sounds PALPATION: Yes Tenderness to palpation present (GI), No Guarding due to palpation present (GI) and Yes No hepatosplenomegaly present Extremity: COMMON NORMALS: normal to inspection, capillary refill normal, no clubbing, cyanosis or edema, no calf tenderness and no pedal edema Neuro: SENSORIUM/ORIENTATION: Yes oriented to person, Yes oriented to place and Yes oriented to time Skin: COMMON NORMALS: no rashes or lesions noted GENERAL SKIN EXAM: no rashes or lesions noted Course Vital Signs: Vital signs: Vital Signs Temperature 97.9 F 05/21/22 00:00 Pulse Rate 68 05/21/22 03:00 Respiratory Rate 8 L 05/21/22 03:00 Blood Pressure 113/57 05/21/22 03:00 Pulse Oximetry 93 05/21/22 03:00 [facility] - General Adult Medical Decision Making End-stage renal disease with failed outpatient therapy for CDF will admit consult nephrology will need dialyzed today has not dialyzed all week. Discussed the hospitalist and nephrology. Medical Records I reviewed the patient's medical records. Lab Data I reviewed the patient's lab results. : 05/21/22 04:50 05/21/22 04:50 Radiology Impressions Chest X-Ray 05/20/22 12:25 Impression: Patchy opacity in left lower lobe consistent with atelectasis, scarring, loculated effusion and less likely pneumonia. KUB X-Ray 05/20/22 12:49 Impression: 1. Probable ascites. 2. Mild generalized ileus. 3. Left basilar atelectasis. Laboratory Results WBC 7.9 10^3/uL (4.0-10.0) 05/20/22 11:35 RBC 2.97 10^6/uL (4.1-5.3) L 05/20/22 11:35 Hgb 9.8 g/dL (11.5-15.3) L 05/20/22 11:35 Hct 31.6 % (37.0-47.0) L 05/20/22 11:35 MCV 106.4 fl (81-99) H 05/20/22 11:35 MCH 33.0 pg (28.0-34.0) 05/20/22 11:35 MCHC 31.0 g/dL (30.0-36.0) 05/20/22 11:35 RDW 15.7 % (12.1-15.1) H 05/20/22 11:35 Plt Count 292 10^3/cmm (130-400) 05/20/22 11:35 MPV 9.5 fL (7.4-10.4) 05/20/22 11:35 Neut % (Auto) 77.0 % 05/20/22 11:35 Lymph % (Auto) 8.1 % 05/20/22 11:35 Angelina % (Auto) 10.8 % 05/20/22 11:35 Eos % (Auto) 1.9 % 05/20/22 11:35 Baso % (Auto) 1.4 % 05/20/22 11:35 Neut # (Auto) 6.12 10^3/uL (1.8-7.7) 05/20/22 11:35 Lymph # (Auto) 0.6 10^3/uL (0.8-4.8) L 05/20/22 11:35 Angelina # (Auto) 0.9 10^3/uL (0.2-0.9) 05/20/22 11:35 Eos # (Auto) 0.2 10^3/uL (0.0-0.8) 05/20/22 11:35 Baso # (Auto) 0.1 10^3/uL (0.0-0.1) 05/20/22 11:35 Nucleated RBC % (auto) 0 % 05/20/22 11:35 Nucleated RBCs # 0.0 /100WBC 05/20/22 11:35 Sodium 134 mmol/L (136-145) L 05/20/22 11:35 Potassium 7.0 mmol/L (3.5-5.1) H* 05/20/22 11:35 Chloride 104 mmol/L (98-107) 05/20/22 11:35 Carbon Dioxide 9 mmol/L (22-29) L 05/20/22 11:35 Anion Gap 28.0 (5-19) H 05/20/22 11:35 BUN 79 mg/dL (6-20) H 05/20/22 11:35 Creatinine 10.0 mg/dL (0.5-0.9) H* 05/20/22 11:35 GFR Calculation 4.0 mL/min (90-130) L 05/20/22 11:35 Glucose 91 mg/dL (65-115) 05/20/22 11:35 Calculated Osmolality 301 mOsm/kg (285-295) H 05/20/22 11:35 Calcium 9.2 mg/dL (8.5-10.5) 05/20/22 11:35 Total Bilirubin 0.7 mg/dL (0.15-1.2) 05/20/22 11:35 AST 9 U/L (0-32) 05/20/22 11:35 ALT 6 U/L (0-33) 05/20/22 11:35 Alkaline Phosphatase 179 IU/L (35-105) H 05/20/22 11:35 C-Reactive Protein 12.3 mg/L (0.0-4.9) H 05/20/22 11:35 NT-Pro-B Natriuret Pep > 17614 pg/mL (0-125) H 05/20/22 11:35 Total Protein 8.8 g/dL (6.6-8.7) H 05/20/22 11:35 Albumin 3.5 g/dL (3.5-5.2) 05/20/22 11:35 Globulin 5.3 g/dL (1.3-4.6) H 05/20/22 11:35 Procalcitonin 0.20 ng/mL (0-0.5) 05/20/22 11:35 TSH 4.12 uIU/mL (0.27-4.20) 05/20/22 11:35 Urine Color Brown (Yellow) 05/20/22 11:00 Urine Appearance Turbid (CLEAR) 05/20/22 11:00 Urine pH 8 (5-7) H 05/20/22 11:00 Ur Specific Odin 1.010 (1.005-1.030) 05/20/22 11:00 Urine Protein Neg (Negative) 05/20/22 11:00 Urine Glucose (UA) Norm (Normal) 05/20/22 11:00 Urine Ketones Negative (Negative) 05/20/22 11:00 Urine Blood 3+ (Negative) H 05/20/22 11:00 Urine Nitrate Negative (Negative) 05/20/22 11:00 Urine Bilirubin 2+ (Negative) H 05/20/22 11:00 Prot Sulfosalicylic Acd Negative (Negative) 05/20/22 11:00 Urine Urobilinogen Norm mg/dL (Negative) 05/20/22 11:00 Ur Leukocyte Esterase 2+ (Negative) H 05/20/22 11:00 Urine RBC 0-4 /hpf (0-2) H 05/20/22 11:00 Urine WBC 10-15 /hpf (0-5) H 05/20/22 11:00 Ur Squamous Epith Cells 5-10 /hpf (0-5) H 05/20/22 11:00 Amorphous Sediment Not Reportable 05/20/22 11:00 Urine Bacteria 2+ /hpf (NONE) H 05/20/22 11:00 Serum Ketones Negative (Negative) 05/20/22 12:25 Hep Bs Antigen Non-reactive (Nonreactive) 05/20/22 12:25 Hepatitis C Antibody Non-reactive (Nonreactive) 05/20/22 12:25 Discharge Plan Discharge Patient Disposition: Admitted As Inpatient Admit Provider: Sudheer Spaulding Clinical Impression: C. difficile colitis, ESRD (end stage renal disease), Anemia, Ischemic cardiomyopathy, Diarrhea Condition: Stable Coding Level of Care Code ED Window Glazier for Gregorio Thompson
[2022-05-20 11:26] LABS: Bilirubin Urine 2+ (Negative); Blood Urine 3+ (Negative); Glucose Urine UA Norm (Normal); Ketones Urine Negative (Negative); Leukocyte Esterase Urine 2+ (Negative); Nitrate Urine Negative (Negative); Protein Urine Neg (Negative); Sulfosalicylic Acid Urine Negative (Negative); Urine Appearance Turbid (CLEAR); Urine Color Brown (Yellow); Urobilinogen Urine Norm (Negative); pH Urine 8 (5-7)
[2022-05-20 11:27] LABS: Add Urine Culture? Yes; Add Urine Microscopic? YES; Bacteria Urine 2+ /hpf; RBC Urine 0-4 /hpf (0-2)
[2022-05-20 11:39] LABS: Basophils # 0.1 10^3/uL (0.0-0.1); Basophils % 1.4 %; Eosinophils # 0.2 10^3/uL (0.0-0.8); Eosinophils % 1.9 %; Hematocrit 31.6 % (37.0-47.0); Hemoglobin 9.8 g/dL (11.5-15.3); Lymphocytes # 0.6 10^3/uL (0.8-4.8); Lymphocytes % 8.1 %; Mean Corpuscular Volume 106.4 fl (81-99); Mean Platelet Volume 9.5 fL (7.4-10.4); Monocytes # 0.9 10^3/uL (0.2-0.9); Monocytes % 10.8 %; Neutrophils # 6.12 10^3/uL (1.8-7.7); Nucleated Red Blood Cells % 0 %; Platelet Count 292 10^3/cmm (130-400); Red Blood Count 2.97 10^6/uL (4.1-5.3); Red Cell Distribution Width 15.7 % (12.1-15.1); White Blood Count 7.9 10^3/uL (4.0-10.0)
[2022-05-20 11:57] LABS: Alanine Aminotransferase 6 U/L (0-33); Albumin Level 3.5 g/dL (3.5-5.2); Alkaline Phosphatase 179 IU/L (35-105); Aspartate Amino Transferase 9 U/L (0-32); Blood Urea Nitrogen 79 mg/dL (6-20); Calcium 9.2 mg/dL (8.5-10.5); Chloride 104 mmol/L (98-107); Globulin 5.3 g/dL (1.3-4.6); Glucose 91 mg/dL (65-115); Osmolality Calculated 301 mOsm/kg (285-295); Sodium 134 mmol/L (136-145); Total Bilirubin 0.7 mg/dL (0.15-1.2); Total Protein 8.8 g/dL (6.6-8.7)
[2022-05-20] MEDS: ondansetron 2 mg/ML SDV 2 mL 4 MG IVP (11:59)
[2022-05-20 12:09] LABS: Carbon Dioxide 9 mmol/L (22-29)
[2022-05-20] MEDS: sodium bicarbonate 8.4% 1 mEq/mL 50mL Syr 100 MEQ IVP (12:14)
[2022-05-20] MEDS: calcium chloride 10% Syr 10 mL 2 GM IVP (12:14)
--- NOTE | 2022-05-20 12:25 | XR_ITS ---
WS: [id number] Portable AP upright chest, 05/20/2022 Clinical Data: dyspnea/cough Comparison: Portable chest, 03/24/2022. Findings: No nodules, masses or effusions are seen. The heart is normal. The pulmonary vascularity is not increased. No pneumothorax is seen. The patchy opacity in the left lower lobe has not changed. T here is left lateral pleural thickening. The patchy opacity may represent atelectasis, scarring or ev en pneumonia. There is a right dialysis catheter entering the right internal jugular vein and ending at the caval atrial junction. XR/XR chest 1V portable [id number] Impression: Patchy opacity in left lower lobe consistent with atelectasis, scarring, locula linda effusion and less likely pneumonia.
--- NOTE | 2022-05-20 12:30 | P.CONIM_ITS ---
Providers/Reason For Consult Consulting Physician/Specialty*: Tomasa Hernandez DO, telenephrology Reason for Consult*: ESRD Primary Care Provider: Karen Bear MD History of Present Illness History of Present Illness Alesia Shaw is a 61 year old female, ESRD on hemodialysis. Discharged from hospital 1 week ago, C.Diff diarrhea. Did not receive HD this week due to N/V/D. On oral vancomycin. On HD x 4 years via tunneled dialysis catheter. s/p Left AKA, + lymphedema right leg Medications/Allergies Home Medications Medication Instructions Recorded Confirmed Last Taken Type Stump Product Development Coordinator #1 ea 01/12/21 05/11/22 07/20/21 Rx carvedilol 25 mg tablet (Coreg) 25 mg PO BID 05/19/21 05/11/22 05/11/22 History aspirin 81 mg chewable tablet 81 mg PO DAILY 90 Days #90 tab 06/22/21 05/11/22 05/10/22 Rx (Children's Aspirin) nitroglycerin 0.4 mg sublingual 0.4 mg SUBLINGUAL Q5M PRN 30 Days 06/22/21 05/11/22 07/20/21 Rx tablet #30 tab levothyroxine 150 mcg tablet 150 mcg PO DAILY #30 tab 10/14/21 05/11/22 05/11/22 Rx (Synthroid) calcium carbonate 470 mg calcium 3,531 mg PO TIDWM PRN 12/25/21 05/11/22 01/17/22 History (1,177 mg) chewable tablet (Tums Ultra) gentamicin 0.1 % topical cream 1 applic TOPICAL TID PRN g 03/10/22 05/11/22 Unknown History hydralazine 50 mg tablet 50 mg PO BID tab 03/10/22 05/11/22 05/11/22 History nystatin 100,000 unit/gram topical 1 applic TOPICAL BID PRN g 03/10/22 05/11/22 Unknown History cream clopidogrel 75 mg tablet 75 mg PO DAILY 90 Days #90 tab 04/18/22 05/11/22 05/10/22 Rx furosemide 80 mg tablet (Lasix) 80 mg PO BID #0 tab 05/13/22 05/11/22 05/10/22 Rx vancomycin 125 mg capsule 125 mg PO Q6H 9 Days #36 cap 05/13/22 Unknown Rx Allergies Allergy/AdvReac Type Severity Reaction Status Date / Time Iodinated Contrast Media Allergy SAPNAY-Hives Verified 04/07/22 16:03 PFSH Acute PFSH: Medical History Anemia Chronic kidney disease and blood loss, has previously required transfusion Aortic valve endocarditis (~04/2020) CAD (coronary artery disease) Charcot's joint of foot in type 2 diabetes mellitus Congestive heart failure systolic Diabetes Diabetes mellitus type 2, not on medications, HbA1c 10/2021 5.2 Diabetic ulcer of left foot Diabetic ulcer of right foot Difficult intravenous access Epidural abscess (~2017) ESRD (end stage renal disease) previously on peritoneal dialysis currently on hemodialysis History of colon polyps History of MRSA infection spinal abscess 2017 Hyperlipidemia Hypertension Hypothyroidism Ischemic cardiomyopathy EF 05/2020 65% >> 06/2021 15%, 09/2021 25% 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 Severe proximal to mid LAD stenosis. Severe ostial diagonal artery stenosis. 2. Successful revascularization of the LAD with orbital arthrectomy and PCI with JD x 2 including bifurcation stenting of mid LAD and diagonal artery using mini-crush technique (2 stents placed in LAD and 1 in diagonal artery). History of cholecystectomy History of colonoscopy with polypectomy 2017 History of left below knee amputation History of lumbar surgery Due to epidural abscess in March 2018 Peritoneal dialysis catheter in place removal 05/20/21 S/P hemodialysis catheter insertion multiple Family History Mother Cancer Uterine and breast cancer Father Diabetes Other CAD (coronary artery disease) Social History Smoking and tobacco status: never smoked Alcohol intake: current Alcohol intake frequency: holidays/special occasions only Marital status: Vitals/I&O/Wt Last Vital Signs Temp 98 F 05/20/22 10:39 Pulse 62 05/20/22 10:39 Resp 18 05/20/22 10:39 BP 106/64 05/20/22 10:39 Pulse Ox 96 05/20/22 10:39 Weight last 48 hrs Weight 107.501 kg Physical Exam Narrative: alert, no distress HENMT: OTHER: tunneled HD catheter Extremity: NARRATIVE EXTREMITY EXAM: + edema right leg, left AKA Data : 05/20/22 11:35 05/20/22 11:35 A&P Assessment and plan (1) Hyperkalemia: Status: Acute Plan 1. ESRD 2. Hyperkalemia and increased anion gap metabolic acidosis - critical - due to diarrhea, missed HD, possible sepsis Rec: HD today 3.5h, 2K bath. HD again tomorrow. Panculture. check lactate level Consult Attestations Medical Necessity Statement: see above Time Spent in Patient Care: 16 - 35 minutes Coding Level of Care Code Acute Radiophone Operator for Gregorio Thompson Diagnoses Hyperkalemia E87.5
--- NOTE | 2022-05-20 12:49 | XR_ITS ---
WS: [id number] KUB, AP view, 05/20/2022 Clinical Data: cdiff Comparison: None. Findings: No abnormal intraabdominal masses are seen. There is no dilatated small bowel or evidence of obstruct ion. There are splenic artery and other vascular calcifications. There is left basilar atelectasis. There are calcifications overlying both kidneys but they may be vascular. There is probably ascites through out the abdomen causing diffuse opacity. XR/XR KUB portable [id number] Impression: 1. Probable ascites. 2. Mild generalized ileus. 3. Left basilar atelectasis.
--- NOTE | 2022-05-20 12:59 | PM.HP ---
Providers/Chief Complaint Primary Care Provider: Karen Bear MD Chief Complaint: N/D/V History of Present Illness This is a? 61 year old female with a history of coronary disease s/p multiple stents (?06/2021: LAD with orbital arthrectomy and PCI with JD x 2 including bifurcation stenting of mid LAD and diagonal artery using mini-crush technique (2 stents placed in LAD and 1 in diagonal artery), ischemic cardiomyopathy (last LVEF of 25%, 09/2021), end-stage renal disease on hemodialysis via tunneled catheter x ~1 yr, hypertension, type 2 diabetes,? 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 Patient recently was discharged from [facility], diagnosed with C. difficile colitis, discharged on p.o. vancomycin, received inpatient dialysis. However she tells when she got home she continued to have nausea, vomiting, inability keep down liquids, profuse diarrhea, she tells me that due to this she was not able to go to dialysis throughout the week. No fevers, no chills, has a chronic cough, no dysuria. No new rashes. No sick contacts. She continues to have watery bowel movements, she tells me that she was not able to keep down the heel vancomycin capsule so switched to liquids, but she was having difficulty keeping down liquid vancomycin. In the emergency room she was found to be hyperkalemic, she was given sodium bicarb, calcium gluconate, Kayexalate, nephrology has been consulted, they have already seen the patient, plans on urgent dialysis. EKG does show peaked T waves, denies any chest pain, no palpitations. Review of Systems Const: Denies: fever(s) or chills Eyes: Denies: change in vision Card: Reports: edema; Denies: chest pain or palpitations Resp: Denies: dyspnea, productive cough, non-productive cough or wheezing GI: Reports: nausea and vomiting; Denies: abdominal pain : Denies: dysuria or urinary frequency Musc: Denies: back pain Skin/Breast: Denies: rash Neuro: Denies: dizziness or vertigo Medications/Allergies Home Medications Medication Instructions Recorded Confirmed Last Taken Type Stump Adoption Social Worker #1 ea 01/12/21 05/11/22 07/20/21 Rx carvedilol 25 mg tablet (Coreg) 25 mg PO BID 05/19/21 05/11/22 05/11/22 History aspirin 81 mg chewable tablet 81 mg PO DAILY 90 Days #90 tab 06/22/21 05/11/22 05/10/22 Rx (Children's Aspirin) nitroglycerin 0.4 mg sublingual 0.4 mg SUBLINGUAL Q5M PRN 30 Days 06/22/21 05/11/22 07/20/21 Rx tablet #30 tab levothyroxine 150 mcg tablet 150 mcg PO DAILY #30 tab 10/14/21 05/11/22 05/11/22 Rx (Synthroid) calcium carbonate 470 mg calcium 3,531 mg PO TIDWM PRN 12/25/21 05/11/22 01/17/22 History (1,177 mg) chewable tablet (Tums Ultra) gentamicin 0.1 % topical cream 1 applic TOPICAL TID PRN g 03/10/22 05/11/22 Unknown History hydralazine 50 mg tablet 50 mg PO BID tab 03/10/22 05/11/22 05/11/22 History nystatin 100,000 unit/gram topical 1 applic TOPICAL BID PRN g 03/10/22 05/11/22 Unknown History cream clopidogrel 75 mg tablet 75 mg PO DAILY 90 Days #90 tab 04/18/22 05/11/22 05/10/22 Rx furosemide 80 mg tablet (Lasix) 80 mg PO BID #0 tab 05/13/22 05/11/22 05/10/22 Rx vancomycin 125 mg capsule 125 mg PO Q6H 9 Days #36 cap 05/13/22 Unknown Rx Allergies Allergy/AdvReac Type Severity Reaction Status Date / Time Iodinated Contrast Media Allergy ALGY-Hives Verified 04/07/22 16:03 PFSH Acute PFSH: Medical History Anemia Chronic kidney disease and blood loss, has previously required transfusion Aortic valve endocarditis (~04/2020) CAD (coronary artery disease) Charcot's joint of foot in type 2 diabetes mellitus Congestive heart failure systolic Diabetes Diabetes mellitus type 2, not on medications, HbA1c 10/2021 5.2 Diabetic ulcer of left foot Diabetic ulcer of right foot Difficult intravenous access Epidural abscess (~2017) ESRD (end stage renal disease) previously on peritoneal dialysis currently on hemodialysis History of colon polyps History of MRSA infection spinal abscess 2017 Hyperlipidemia Hypertension Hypothyroidism Ischemic cardiomyopathy EF 05/2020 65% >> 06/2021 15%, 09/2021 25% 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 Severe proximal to mid LAD stenosis. Severe ostial diagonal artery stenosis. 2. Successful revascularization of the LAD with orbital arthrectomy and PCI with JD x 2 including bifurcation stenting of mid LAD and diagonal artery using mini-crush technique (2 stents placed in LAD and 1 in diagonal artery). History of cholecystectomy History of colonoscopy with polypectomy 2017 History of left below knee amputation History of lumbar surgery Due to epidural abscess in March 2018 Peritoneal dialysis catheter in place removal 05/20/21 S/P hemodialysis catheter insertion multiple Family History Mother Cancer Uterine and breast cancer Father Diabetes Other CAD (coronary artery disease) Social History Smoking and tobacco status: never smoked Alcohol intake: current Alcohol intake frequency: holidays/special occasions only Marital status: Vitals/I&O/Wt Last Vital Signs Temp 98 F 05/20/22 10:39 Pulse 62 05/20/22 10:39 Resp 18 05/20/22 10:39 BP 106/64 05/20/22 10:39 Pulse Ox 96 05/20/22 10:39 Weight last 48 hrs Weight 107.501 kg Physical Exam Const: COMMON NORMALS: no acute distress and patient oriented x3 HENMT: COMMON NORMALS: normocephalic HEAD & SCALP: normocephalic Neck/C-Spine: COMMON NORMALS: no JVD Resp: COMMON NORMALS: normal respiratory effort, No retractions, No use of accessory muscles and clear to auscultation bilaterally AUSCULTATION: clear to auscultation bilaterally Cardio: COMMON NORMALS: no JVD, regular rate, regular rhythm, S1 normal heart sound present and S2 normal heart sound present RATE: regular rate RHYTHM: regular rhythm HEART SOUNDS: S1 normal heart sound present and S2 normal heart sound present GI: COMMON NORMALS: Soft to palpation, non-tender, No hepatosplenomegaly present, no masses and no bruits INSPECTION: Yes normal to inspection, Yes Abdominal wall edema and Yes abdominal distension AUSCULTATION: Yes normoactive bowel sounds PALPATION: Yes Firmness to palpation present (GI), No Tenderness to palpation present (GI), No Guarding due to palpation present (GI), No Rigid due to palpation and Yes No hepatosplenomegaly present Extremity: COMMON NORMALS: capillary refill normal, no clubbing, cyanosis or edema and no calf tenderness Neuro: COMMON NORMALS: patient oriented x3, CN's II-XII intact bilaterally, moves all extremities and no focal motor deficits OTHER: 1+ pitting edema, left below-knee amputation Psych: COMMON NORMALS: mental status grossly normal Data : 05/20/22 11:35 05/20/22 11:35 A&P Assessment and plan (1) Hyperkalemia: Status: Acute (2) Hypothyroidism: Status: Chronic (3) Hyperlipidemia: Status: Chronic (4) Hypertension: Status: Chronic Qualifiers: Hypertension type: renovascular hypertension Qualified Code(s): I15.0 - Renovascular hypertension (5) ESRD (end stage renal disease): Status: Chronic (6) CAD (coronary artery disease): Status: Chronic Qualifiers: Coronary Disease-Associated Artery/Lesion type: [place] artery [place] vs. transplanted heart: [place] heart Associated angina: without angina Qualified Code(s): I25.10 - Atherosclerotic heart disease of [place] coronary artery without angina pectoris (7) Diarrhea: Status: Acute Qualifiers: Diarrhea type: unspecified type Qualified Code(s): R19.7 - Diarrhea, unspecified (8) C. difficile colitis: Status: Acute (9) Increased anion gap metabolic acidosis: Status: Acute Plan Hyperkalemia secondary to missed dialysis -Receiving urgent dialysis -Has received sodium bicarb, calcium chloride, labetalol, Kayexalate -We will hold off on insulin as she is planning on getting urgent dialysis -Recheck serum potassium in the afternoon -Telemetry monitoring -Full code -Heparin for DVT prophylaxis Acute renal failure, missed dialysis, nephrology consulted, dialysis Nausea, vomiting -Possibly secondary to ileus, associate with C. difficile will do KUB -Other etiologies could include diabetic gastroparesis, started Reglan for nausea -Possibly secondary to missed dialysis -KUB, Reglan, Zofran C. difficile colitis -Given severity of nausea, vomiting, diarrhea -KUB to evaluate for possible ileus, possible fulminant C. difficile we will do CT abdomen pelvis -Start p.o. vancomycin high-dose -Start Flagyl Increased anion gap metabolic acidosis -Likely sec to missed dialysis, dehydration -Blood sugar within normal limits -Check for ketones, likely secondary to dehydration if elevated at home feel that she is in DKA -IV fluids, dialysis Possible sepsis -Likely secondary C. difficile colitis Lactic acid pending -Blood cultures, urine cultures, chest x-ray, KUB, lactic acid Attestations Medical Necessity Statement*: Patient requires hospitalization and due to hyperkalemia, missed dialysis, nausea, vomiting, dehydration, C. difficile colitis Coding Level of Care Code Acute Direct Chill Casting Operator for g Fwd Diagnoses Hyperkalemia E87.5 Hypothyroidism E03.9 Hyperlipidemia E78.5 Hypertension I15.0 Hypertension type: renovascular hypertension ESRD (end stage renal disease) N18.6 CAD (coronary artery disease) I25.10 Coronary Disease-Associated Artery/Lesion type: [place] artery [place] vs. transplanted heart: [place] heart Associated angina: without angina Diarrhea R19.7 Diarrhea type: unspecified type C. difficile colitis A04.72 Increased anion gap metabolic acidosis E87.2
[2022-05-20 13:11] LABS: C Reactive Protein 12.3 mg/L (0.0-4.9)
[2022-05-20 13:13] LABS: Hepatitis B Surface Antigen Non-Reactive (Nonreactive); Hepatitis C Virus Antibody Non-Reactive (Nonreactive)
[2022-05-20 13:36] LABS: Ketone (Acetest) Serum Negative (Negative)
[2022-05-20] MEDS: pantoprazole 40 mg SDV IVP (14:15)
[2022-05-20] MEDS: heparin 5,000 unit/mL INJ 1 mL 5000 UNIT SUBCUT (14:15)
[2022-05-20] MEDS: metroNIDAZOLE IV 500 MG/100 ML PREMIX 100 MG IV ×2 (14:16→20:13)
[2022-05-20] MEDS: dextrose 5%-sod chloride 0.9% 1,000 ML 50 ML IV (14:17)
[2022-05-20 14:24] LABS: NT Pro B Type Natriuretic Pept > 70000 pg/mL (0-125)
[2022-05-20 14:48] LABS: Thyroid Stimulating Hormone 4.12 uIU/mL (0.27-4.20)
[2022-05-20 15:55] LABS: INR 1.42 (0.8-1.2)
[2022-05-20 16:03] LABS: Lactic Sepsis W/Reflex 0.5 mmol/L (0.5-2.2)
--- NOTE | 2022-05-20 16:42 | ECG_ITS ---
[facility] Test Date: 2022-05-20 Pat Name: Alesia Shaw Department: Room: ICU10 Gender: Female Outplacement Consultant: : [id number] Requested By: Shelton Junior Order Number: [id number] Reading MD: Fly Long M.D. Measurements Intervals [place] Rate: 62 P: 51 NE: 241 QRS: -48 QRSD: 149 T: 118 QT: 475 QTc: 485 Interpretive Statements SINUS RHYTHM WITH FIRST DEGREE AV BLOCK POSSIBLE LEFT ATRIAL ENLARGEMENT [-0.1mV P-WAVE IN V1/V2] LEFT AXIS DEVIATION [QRS AXIS < -30] LEFT BUNDLE BRANCH BLOCK [120+ ms QRS DURATION, 80+ ms Q/S IN V1/V2, 85+ ms R IN I/aVL/V5/V6] Compared to ECG 05/11/2022 14:17:36 Left bundle-branch block now present Left ventricular hypertrophy no longer present ST (T wave) deviation no longer present Electronically Signed On 05-20-2022 18:21:59 CDT by Fly Long M.D. [id number]
[2022-05-20] MEDS: heparin, porcine 1,000 unit/mL INJ 10 mL 1000 UNIT HE (18:05)
[2022-05-20 18:27] LABS: Alanine Aminotransferase 6 U/L (0-33); Albumin Level 3.1 g/dL (3.5-5.2); Alkaline Phosphatase 151 IU/L (35-105); Anion Gap 16.1 (5-19); Aspartate Amino Transferase 8 U/L (0-32); Blood Urea Nitrogen 33 mg/dL (6-20); Calcium 8.7 mg/dL (8.5-10.5); Carbon Dioxide 23 mmol/L (22-29); Chloride 102 mmol/L (98-107); Globulin 4.4 g/dL (1.3-4.6); Glucose 87 mg/dL (65-115); Osmolality Calculated 291 mOsm/kg (285-295); Potassium 4.1 mmol/L (3.5-5.1); Sodium 137 mmol/L (136-145); Total Bilirubin 0.7 mg/dL (0.15-1.2); Total Protein 7.5 g/dL (6.6-8.7)
[2022-05-20] MEDS: morphine 4 mg/mL SDV 1 mL 1 MG IVP (20:14)
[2022-05-21] VITALS (18 sets, daily range): BP systolic 113–161; BP diastolic 49–81; PULSE 67–75; RESP 8–23; TEMP 36.3–36.9; O2SAT 92–97
[2022-05-21] MEDS: pantoprazole 40 mg SDV IVP ×2 (02:05→14:27)
[2022-05-21] MEDS: heparin 5,000 unit/mL INJ 1 mL 5000 UNIT SUBCUT ×2 (02:05→14:28)
[2022-05-21] MEDS: metroNIDAZOLE IV 500 MG/100 ML PREMIX 100 MG IV ×3 (05:00→21:13)
[2022-05-21 05:50] LABS: Basophils # 0.1 10^3/uL (0.0-0.1); Basophils % 1.2 %; Eosinophils # 0.2 10^3/uL (0.0-0.8); Eosinophils % 2.9 %; Hematocrit 29.8 % (37.0-47.0); Hemoglobin 9.3 g/dL (11.5-15.3); Lymphocytes # 0.5 10^3/uL (0.8-4.8); Lymphocytes % 7.9 %; Mean Corpuscular HGB Conc 31.2 g/dL (30.0-36.0); Mean Corpuscular Hemoglobin 32.5 pg (28.0-34.0); Mean Corpuscular Volume 104.2 fl (81-99); Mean Platelet Volume 9.7 fL (7.4-10.4); Monocytes # 0.9 10^3/uL (0.2-0.9); Monocytes % 14.8 %; Neutrophils # 4.31 10^3/uL (1.8-7.7); Neutrophils % 72.7 %; Nucleated Red Blood Cells % 0 %; Platelet Count 264 10^3/cmm (130-400); Red Blood Count 2.86 10^6/uL (4.1-5.3); Red Cell Distribution Width 15.4 % (12.1-15.1); White Blood Count 5.9 10^3/uL (4.0-10.0)
[2022-05-21 06:09] LABS: Alanine Aminotransferase 6 U/L (0-33); Albumin Level 3.1 g/dL (3.5-5.2); Alkaline Phosphatase 163 IU/L (35-105); Anion Gap 17.4 (5-19); Aspartate Amino Transferase 9 U/L (0-32); Blood Urea Nitrogen 37 mg/dL (6-20); Calcium 8.4 mg/dL (8.5-10.5); Carbon Dioxide 20 mmol/L (22-29); Chloride 102 mmol/L (98-107); Globulin 4.8 g/dL (1.3-4.6); Glomerular Filtration Rate 7.2 mL/min (90-130); Glucose 88 mg/dL (65-115); Osmolality Calculated 288 mOsm/kg (285-295); Potassium 4.4 mmol/L (3.5-5.1); Sodium 135 mmol/L (136-145); Total Bilirubin 0.8 mg/dL (0.15-1.2); Total Protein 7.9 g/dL (6.6-8.7)
[2022-05-21] MEDS: aspirin 81 mg Chew Tablet PO (08:11)
[2022-05-21] MEDS: levothyroxine 150 mcg Tablet PO (08:11)
[2022-05-21] MEDS: clopidogrel 75 mg Tablet PO (08:11)
[2022-05-21] MEDS: dextrose 5%-sod chloride 0.9% 1,000 ML 50 ML IV (08:24)
--- NOTE | 2022-05-21 09:04 | P.PN_ITS ---
Subjective Subjective: Seen via telemedicine with assistance of RN at bedside. seen during HD states she is feeling better than yesterday Vitals/I&O/Wt Last Vital Signs Temp 97.9 F 05/21/22 00:00 Pulse 68 05/21/22 08:00 Resp 19 H 05/21/22 08:00 BP 135/67 05/21/22 08:00 Pulse Ox 94 05/21/22 08:00 05/20/22 05/21/22 05/21/22 22:59 06:59 14:59 Intake Total 736.667 / 736.667 489.167 / 1225.834 720 / 720 Balance 736.667 / 736.667 489.167 / 1225.834 720 / 720 Weight last 48 hrs Weight 107.501 kg Weight 107.501 kg Data : 05/21/22 04:50 05/21/22 04:50 Other Labs: BC, urine culture pending Micro: Microbiology 05/20/22 19:57 Blood Culture - Preliminary Blood SPECIMEN COLLECTED 05/20/22 19:54 Blood Culture - Preliminary Blood SPECIMEN COLLECTED CXR: Radiologist's impression: Impression: Patchy opacity in left lower lobe consistent with atelectasis, scarring, loculated effusion and less likely pneumonia. ? A&P Assessment and plan (1) C. difficile colitis: Status: Acute Plan 1. ESRD, incenter HD 3x weekly, missed 2 sessions HD 2. Hyperkalemia and increased anion gap metabolic acidosis, resolved after hemodialysis yesterday 3. C.Diff colitis, receiving IV flagyl and oral vancomycin 4. Anemia Rec: HD today 3h, 2K bath. Next HD Monday05/23/22 Attestations Medical Necessity Statement*: see above Time Spent in Patient Care: 16 - 35 minutes Coding Level of Care Code Acute Remote Sensing Scientist for Gregorio Thompson Diagnoses C. difficile colitis A04.72
[2022-05-21] MEDS: ondansetron 2 mg/ML SDV 2 mL 8 MG IVP (11:19)
--- NOTE | 2022-05-21 11:26 | PM.PN ---
Subjective Subjective: Patient was seen this morning, she tells me that she feels a lot better with the antibiotics, and after dialysis, she is tolerating clear liquid diet well, she is wondering if her diet can be advanced Vitals/I&O/Wt Last Vital Signs Temp 98.1 F 05/21/22 10:26 Pulse 67 05/21/22 10:26 Resp 19 H 05/21/22 10:26 BP 134/61 05/21/22 10:26 Pulse Ox 94 05/21/22 08:00 05/20/22 05/21/22 05/21/22 22:59 06:59 14:59 Intake Total 1036.667 / 1036.667 489.167 / 1525.834 720 / 720 Output Total 600 / 600 Balance 436.667 / 436.667 489.167 / 925.834 720 / 720 Weight last 48 hrs Weight 99 kg Weight 107.501 kg Weight 107.501 kg Physical Exam Const: COMMON NORMALS: no acute distress and patient oriented x3 Resp: COMMON NORMALS: normal respiratory effort, No retractions, No use of accessory muscles and clear to auscultation bilaterally AUSCULTATION: clear to auscultation bilaterally Cardio: COMMON NORMALS: regular rate, regular rhythm, S1 normal heart sound present and S2 normal heart sound present RATE: regular rate RHYTHM: regular rhythm HEART SOUNDS: S1 normal heart sound present and S2 normal heart sound present GI: COMMON NORMALS: Normal to inspection, nondistended, normoactive bowel sounds present, Soft to palpation, non-tender and No hepatosplenomegaly present PALPATION: Yes Soft to palpation and Yes No hepatosplenomegaly present Neuro: COMMON NORMALS: patient oriented x3 Psych: COMMON NORMALS: mental status grossly normal Data : 05/21/22 04:50 05/21/22 04:50 Micro: Microbiology 05/20/22 11:00 Urine Culture - Preliminary Urine,Clean Catch 05/20/22 19:57 Blood Culture - Preliminary Blood SPECIMEN COLLECTED 05/20/22 19:54 Blood Culture - Preliminary Blood SPECIMEN COLLECTED A&P Assessment and plan (1) Hyperkalemia: Status: Acute (2) Hypothyroidism: Status: Chronic (3) Hyperlipidemia: Status: Chronic (4) Hypertension: Status: Chronic Qualifiers: Hypertension type: renovascular hypertension Qualified Code(s): I15.0 - Renovascular hypertension (5) ESRD (end stage renal disease): Status: Chronic (6) CAD (coronary artery disease): Status: Chronic Qualifiers: Coronary Disease-Associated Artery/Lesion type: [place] artery [place] vs. transplanted heart: [place] heart Associated angina: without angina Qualified Code(s): I25.10 - Atherosclerotic heart disease of [place] coronary artery without angina pectoris (7) Diarrhea: Status: Acute (8) C. difficile colitis: Status: Acute (9) Increased anion gap metabolic acidosis: Status: Acute Plan Hyperkalemia secondary to missed dialysis -Resolved -Had received sodium bicarb, calcium chloride, labetalol -Telemetry monitoring -Full code -Heparin for DVT prophylaxis Acute renal failure, missed dialysis, nephrology consulted, dialysis Nausea, vomiting -Resolved -Likely secondary to ileus associate with C. difficile -Other etiologies could include diabetic gastroparesis, started Reglan for nausea - Reglan, Zofran C. difficile colitis -Continue p.o. vancomycin high-dose -Continue Flagyl Increased anion gap metabolic acidosis -Resolved -Likely sec to missed dialysis, dehydration -Blood sugar within normal limits Possible sepsis -Likely secondary C. difficile colitis -Lactic acid within normal limits Attestations Medical Necessity Statement*: Patient requires hospitalization due to acute renal failure, nausea, vomiting, C. difficile colitis, Coding Level of Care Code Acute Supervisor Aluminum Fabrication for Chg Fwd Diagnoses Hyperkalemia E87.5 Hypothyroidism E03.9 Hyperlipidemia E78.5 Hypertension I15.0 Hypertension type: renovascular hypertension ESRD (end stage renal disease) N18.6 CAD (coronary artery disease) I25.10 Coronary Disease-Associated Artery/Lesion type: [place] artery [place] vs. transplanted heart: [place] heart Associated angina: without angina Diarrhea R19.7 C. difficile colitis A04.72 Increased anion gap metabolic acidosis E87.2
[2022-05-21] MEDS: heparin, porcine 1,000 unit/mL INJ 10 mL 1000 UNIT IV (13:08)
[2022-05-22] VITALS (10 sets, daily range): BP systolic 133–167; BP diastolic 63–88; PULSE 71–76; RESP 15–18; TEMP 36.7–37.3; O2SAT 91–96
[2022-05-22] MEDS: pantoprazole 40 mg SDV IVP (01:00)
[2022-05-22] MEDS: heparin 5,000 unit/mL INJ 1 mL 5000 UNIT SUBCUT ×2 (01:01→14:17)
[2022-05-22 03:59] LABS: Basophils # 0.1 10^3/uL (0.0-0.1); Basophils % 1.3 %; Eosinophils # 0.1 10^3/uL (0.0-0.8); Eosinophils % 2.3 %; Hematocrit 29.9 % (37.0-47.0); Hemoglobin 9.2 g/dL (11.5-15.3); Lymphocytes # 0.7 10^3/uL (0.8-4.8); Lymphocytes % 10.7 %; Mean Corpuscular HGB Conc 30.8 g/dL (30.0-36.0); Mean Corpuscular Hemoglobin 32.9 pg (28.0-34.0); Mean Corpuscular Volume 106.8 fl (81-99); Mean Platelet Volume 9.2 fL (7.4-10.4); Monocytes % 15.8 %; Neutrophils # 4.28 10^3/uL (1.8-7.7); Neutrophils % 69.6 %; Nucleated Red Blood Cells % 0 %; Platelet Count 251 10^3/cmm (130-400); Red Cell Distribution Width 15.3 % (12.1-15.1); White Blood Count 6.2 10^3/uL (4.0-10.0)
[2022-05-22] MEDS: metroNIDAZOLE IV 500 MG/100 ML PREMIX 100 MG IV ×2 (04:06→12:16)
[2022-05-22 04:22] LABS: Alanine Aminotransferase 6 U/L (0-33); Alkaline Phosphatase 155 IU/L (35-105); Anion Gap 16.2 (5-19); Aspartate Amino Transferase 10 U/L (0-32); Blood Urea Nitrogen 22 mg/dL (6-20); Calcium 7.8 mg/dL (8.5-10.5); Carbon Dioxide 24 mmol/L (22-29); Chloride 99 mmol/L (98-107); Globulin 4.5 g/dL (1.3-4.6); Glucose 125 mg/dL (65-115); Magnesium 1.9 mg/dL (1.7-2.3); Osmolality Calculated 285 mOsm/kg (285-295); Phosphorus 4.6 mg/dL (2.5-4.5); Potassium 4.2 mmol/L (3.5-5.1); Sodium 135 mmol/L (136-145); Total Bilirubin 0.6 mg/dL (0.15-1.2); Total Protein 7.5 g/dL (6.6-8.7)
[2022-05-22] MEDS: levothyroxine 150 mcg Tablet PO (09:11)
[2022-05-22] MEDS: aspirin 81 mg Chew Tablet PO (09:11)
[2022-05-22] MEDS: clopidogrel 75 mg Tablet PO (09:11)
--- NOTE | 2022-05-22 09:22 | P.PN_ITS ---
Subjective Subjective: Seen via telemedicine with assistance of RN at bedside. Abdomen feels gassy , no diarrhea, nausea or vomiting Vitals/I&O/Wt Last Vital Signs Temp 98.1 F 05/22/22 08:00 Pulse 71 05/22/22 08:00 Resp 18 05/22/22 08:00 BP 157/80 05/22/22 08:00 Pulse Ox 91 05/22/22 08:00 05/21/22 05/22/22 05/22/22 22:59 06:59 14:59 Intake Total 460 / 2580 580 / 3160 Output Total 0 / 276 Balance 460 / 2304 580 / 2884 Weight last 48 hrs Weight 102.421 kg Weight 102 kg Weight 99 kg Weight 107.501 kg Weight 107.501 kg Physical Exam Const: COMMON NORMALS: no acute distress and alert Neuro: SENSORIUM/ORIENTATION: Yes alert Data : 05/22/22 03:40 05/22/22 03:40 Other Labs: phos 4.5 Micro: Microbiology 05/20/22 11:00 Urine Culture - Final Urine,Clean Catch 05/20/22 19:57 Blood Culture - Preliminary Blood NEGATIVE TO DATE 05/20/22 19:54 Blood Culture - Preliminary Blood NEGATIVE TO DATE A&P Assessment and plan Plan 1. ESRD, incenter HD 3x weekly, missed 2 sessions HD last week. HD Monday and Monday, scheduled again tomorrow 2. Hyperkalemia and increased anion gap metabolic acidosis, resolved after hemodialysis 3. C.Diff colitis, receiving IV flagyl and oral vancomycin 4. Anemia - will receive IV epogen at dialysis tomorrow Rec: HD Monday05/23/22, 2K bath, 500 ml UF Attestations Medical Necessity Statement*: per primary service Time Spent in Patient Care: 16 - 35 minutes Coding Level of Care Code Acute Master Automotive Technician for Gregorio Thompson
--- NOTE | 2022-05-22 11:39 | PM.PN ---
Subjective Subjective: Patient was seen this morning and her is at bedside, she tells me that she feels a lot better, no nausea, no vomiting, Vitals/I&O/Wt Last Vital Signs Temp 98.1 F 05/22/22 08:00 Pulse 71 05/22/22 08:00 Resp 18 05/22/22 08:00 BP 157/80 05/22/22 08:00 Pulse Ox 91 05/22/22 08:00 05/21/22 05/22/22 05/22/22 22:59 06:59 14:59 Intake Total 460 / 2580 580 / 3160 Output Total 0 / 276 Balance 460 / 2304 580 / 2884 Weight last 48 hrs Weight 102.421 kg Weight 102 kg Weight 99 kg Weight 107.501 kg Physical Exam Const: COMMON NORMALS: no acute distress and patient oriented x3 Resp: COMMON NORMALS: normal respiratory effort, No retractions, No use of accessory muscles and clear to auscultation bilaterally AUSCULTATION: clear to auscultation bilaterally Cardio: COMMON NORMALS: regular rate, regular rhythm, S1 normal heart sound present and S2 normal heart sound present RATE: regular rate RHYTHM: regular rhythm HEART SOUNDS: S1 normal heart sound present and S2 normal heart sound present GI: COMMON NORMALS: Normal to inspection, nondistended, normoactive bowel sounds present, Soft to palpation and non-tender PALPATION: Yes Soft to palpation Extremity: COMMON NORMALS: no pedal edema Neuro: COMMON NORMALS: patient oriented x3 Data : 05/22/22 03:40 05/22/22 03:40 Micro: Microbiology 05/20/22 11:00 Urine Culture - Final Urine,Clean Catch 05/20/22 19:57 Blood Culture - Preliminary Blood NEGATIVE TO DATE 05/20/22 19:54 Blood Culture - Preliminary Blood NEGATIVE TO DATE A&P Assessment and plan (1) Hyperkalemia: Status: Acute (2) Hypothyroidism: Status: Chronic (3) Hyperlipidemia: Status: Chronic (4) Hypertension: Status: Chronic Qualifiers: Hypertension type: renovascular hypertension Qualified Code(s): I15.0 - Renovascular hypertension (5) ESRD (end stage renal disease): Status: Chronic (6) CAD (coronary artery disease): Status: Chronic Qualifiers: Coronary Disease-Associated Artery/Lesion type: [place] artery [place] vs. transplanted heart: [place] heart Associated angina: without angina Qualified Code(s): I25.10 - Atherosclerotic heart disease of [place] coronary artery without angina pectoris (7) Diarrhea: Status: Acute (8) C. difficile colitis: Status: Acute (9) Increased anion gap metabolic acidosis: Status: Acute Plan Hyperkalemia secondary to missed dialysis -Resolved -Had received sodium bicarb, calcium chloride, labetalol -Telemetry monitoring -Full code -Heparin for DVT prophylaxis Acute renal failure, missed dialysis, nephrology consulted, dialysis Nausea, vomiting -Resolved -Likely secondary to ileus associate with C. difficile -Other etiologies could include diabetic gastroparesis, started Reglan for nausea - Reglan, Zofran C. difficile colitis -Continue vancomycin 250 4 times daily -Continue Flagyl Increased anion gap metabolic acidosis -Resolved -Likely sec to missed dialysis, dehydration -Blood sugar within normal limits Possible sepsis -Resolved -Likely secondary C. difficile colitis -Lactic acid within normal limits Attestations Medical Necessity Statement*: Patient requires hospitalization due to end-stage renal disease, hyperkalemia, nausea, vomiting, C. difficile colitis Coding Level of Care Code Acute Staff Psychologist for g Fwd Diagnoses Hyperkalemia E87.5 Hypothyroidism E03.9 Hyperlipidemia E78.5 Hypertension I15.0 Hypertension type: renovascular hypertension ESRD (end stage renal disease) N18.6 CAD (coronary artery disease) I25.10 Coronary Disease-Associated Artery/Lesion type: [place] artery [place] vs. transplanted heart: [place] heart Associated angina: without angina Diarrhea R19.7 C. difficile colitis A04.72 Increased anion gap metabolic acidosis E87.2
[2022-05-22] MEDS: hyDRALAzine 50 mg Tablet PO (12:16)
[2022-05-22 17:04] LABS: Glucose Point of Care 147 mg/dL (70-110)
--- NOTE | 2022-05-22 17:10 | CTR_ITS ---
PROCEDURE INFORMATION: Exam: CT Abdomen And Pelvis Without Contrast Exam date and time: 05/22/2022 9:23 PM Age: 61 years old Clinical indication: Bloating; Prior surgery; Surgery date: 6+ months; Surgery type: Shanelle, colon polypectomy, dialysis catheter insertion; Additional info: Abdominal distention TECHNIQUE: Imaging protocol: Computed tomography of the abdomen and pelvis without contrast. Sagittal and coronal reformatted images were created and reviewed. Radiation optimization: All CT scans at this facility use at least one of these dose optimization techniques: automated exposure control; mA and/or kV adjustment per patient size (includes targeted exams where dose is matched to clinical indication); or iterative reconstruction. COMPARISON: 1. CT abdomen pelvis wo con [id number] 05/11/2022 12:[address] chest wo con [id number] 06/13/2021 2:48 PM RADIATION DOSE METRICS: Total DLP (mGy-cm): 1465.56 FINDINGS: Limitations: Evaluation of solid organs and vasculature is limited without intravenous contrast. Tubes, catheters and devices: There is a dialysis catheter with the distal tip in the right atrium, stable in position. Lungs: Stable scarring in the left lower lobe. Stable pleural base rounded opacity in the left lower lobe with vessel swirling towards the area, suggesting rounded atelectasis. Pleural spaces: Stable small right pleural effusion. Stable loculated small left pleural effusion with associated pleural thickening. Heart: Stable moderate enlargement of the heart. Stable extensive atherosclerotic calcification in the coronary arteries. Liver: The liver is unremarkable. Gallbladder and bile ducts: Patient has had a previous cholecystectomy. No biliary ductal dilatation. Pancreas: Stable marked atrophy of the pancreatic parenchyma. No pancreatic ductal dilatation. Spleen: The spleen is unremarkable. Adrenal glands: Indeterminate foci in the right and left adrenal glands. Hounsfield units show density greater than expected for adenomas. The focus in the right adrenal gland measures 1.3 x 0.7 cm and the focus in the left adrenal gland measures 1.6 x 1.1 cm (series 4, images 38 and 39). Findings are stable dating back to 06/13/2021. Kidneys and ureters: The right and left kidneys are unremarkable. The right and left ureters are unremarkable. Stomach and bowel: No obstruction. No mucosal thickening. Appendix: The appendix is visualized and is unremarkable. No findings to suggest acute appendicitis. Intraperitoneal space: No free intraperitoneal air. Stable large volume ascites and mild mesenteric edema. No loculated fluid collections to suggest an abscess. Vasculature: Extensive atherosclerotic changes in the visualized arteries. No evidence for aortic aneurysm. Lymph nodes: No lymphadenopathy. Urinary bladder: The bladder is incompletely filled, which can limit evaluation. No focal abnormality in the bladder however. Reproductive: The uterus, right ovary, and left ovary are unremarkable. Bones/joints: Degenerative changes in the spine, sacroiliac joints, and hips. Mild spinal canal stenosis at L1-L2 and L5-S1. Moderate spinal canal stenosis at L2-L3 and L4-L5. Significant spinal canal stenosis at L3-L4. Multilevel foraminal stenosis of varying severity in the lumbar spine. Soft tissues: Stable moderate body wall edema. CT/CT abdomen pelvis wo con [id number] IMPRESSION: 1. Stable loculated small left pleural effusion with associated pleural thickening. 2. Stable large volume ascites and mild mesenteric edema. 3. Stable moderate body wall edema. 4. Stable small right pleural effusion. 5. Stable indeterminate foci in both right and left adrenal glands dating back to 06/13/2021. 6. Incidental/nonacute findings are listed in the report.
[2022-05-22] MEDS: morphine 4 mg/mL SDV 1 mL 1 MG IVP (20:55)
[2022-05-23] VITALS (9 sets, daily range): BP systolic 127–169; BP diastolic 76–86; PULSE 70–98; RESP 14–19; TEMP 36.8–37.3; O2SAT 94–97
[2022-05-23] MEDS: hyDRALAzine 50 mg Tablet PO ×3 (00:11→23:46)
[2022-05-23] MEDS: heparin 5,000 unit/mL INJ 1 mL 5000 UNIT SUBCUT (01:02)
[2022-05-23 03:57] LABS: Basophils # 0.1 10^3/uL (0.0-0.1); Eosinophils # 0.2 10^3/uL (0.0-0.8); Eosinophils % 3.1 %; Hematocrit 28.9 % (37.0-47.0); Hemoglobin 9.1 g/dL (11.5-15.3); Lymphocytes # 0.7 10^3/uL (0.8-4.8); Lymphocytes % 12.1 %; Mean Corpuscular HGB Conc 31.5 g/dL (30.0-36.0); Mean Corpuscular Hemoglobin 33.2 pg (28.0-34.0); Mean Corpuscular Volume 105.5 fl (81-99); Mean Platelet Volume 9.5 fL (7.4-10.4); Monocytes % 15.7 %; Neutrophils # 4.14 10^3/uL (1.8-7.7); Neutrophils % 67.9 %; Nucleated Red Blood Cells % 0 %; Platelet Count 261 10^3/cmm (130-400); Red Blood Count 2.74 10^6/uL (4.1-5.3); Red Cell Distribution Width 15.2 % (12.1-15.1); White Blood Count 6.1 10^3/uL (4.0-10.0)
[2022-05-23 06:34] LABS: Alanine Aminotransferase < 5 U/L (0-33); Alkaline Phosphatase 138 IU/L (35-105); Anion Gap 16.4 (5-19); Aspartate Amino Transferase 8 U/L (0-32); Blood Urea Nitrogen 31 mg/dL (6-20); Calcium 8.4 mg/dL (8.5-10.5); Carbon Dioxide 24 mmol/L (22-29); Chloride 99 mmol/L (98-107); Globulin 4.2 g/dL (1.3-4.6); Glomerular Filtration Rate 7.6 mL/min (90-130); Glucose 91 mg/dL (65-115); Magnesium 1.9 mg/dL (1.7-2.3); Osmolality Calculated 286 mOsm/kg (285-295); Phosphorus 5.8 mg/dL (2.5-4.5); Potassium 4.4 mmol/L (3.5-5.1); Sodium 135 mmol/L (136-145); Total Bilirubin 0.7 mg/dL (0.15-1.2); Total Protein 7.2 g/dL (6.6-8.7)
--- NOTE | 2022-05-23 08:29 | P.PN_ITS ---
Subjective Subjective: abdomen feels more bloated more gas, no diarrhea Vitals/I&O/Wt Last Vital Signs Temp 98.3 F 05/23/22 07:43 Pulse 73 05/23/22 07:43 Resp 14 05/23/22 07:43 BP 165/86 05/23/22 07:43 Pulse Ox 95 05/23/22 07:43 05/22/22 05/23/22 05/23/22 22:59 06:59 14:59 Output Total 0 / 0 0 / 0 Balance 0 / 100 0 / 100 Weight last 48 hrs Weight 102.421 kg Weight 102 kg Physical Exam Const: COMMON NORMALS: no acute distress and alert Neuro: SENSORIUM/ORIENTATION: Yes alert Data : 05/23/22 03:20 05/23/22 06:05 Micro: Microbiology 05/20/22 11:00 Urine Culture - Final Urine,Clean Catch CT Abd/Pel: Radiologist's impression: 1. Stable loculated small left pleural effusion with associated pleuralthickening. 2. Stable large volume ascites and mild mesenteric edema. 3. Stable moderate body wall edema. 4. Stable small right pleural effusion. 5. Stable indeterminate foci in both right and left adrenal glands dating back to 06/13/2021. A&P Assessment and plan (1) Hypertension: Status: Chronic Qualifiers: Hypertension type: renovascular hypertension Qualified Code(s): I15.0 - Renovascular hypertension Plan Seen via telemedicine with assistance of RN at bedside 1. ESRD, incenter HD 3x weekly, missed 2 sessions HD last week. HD Monday and Monday, scheduled again today 2. Hyperkalemia and increased anion gap metabolic acidosis, resolved after hemodialysis 3. C.Diff colitis, improved. + large volume ascites - consider paracentesis 4. Anemia - will receive IV epogen at dialysis 5. Hypertension- on carvedilol and hydralazine. Does not tolerate UF at dialysis. Hydralazine can be increased if needed. Rec:? HD Monday05/23/22, 2K bath, 500 ml UF Attestations Medical Necessity Statement*: per primary service Time Spent in Patient Care: 16 - 35 minutes Coding Level of Care Code Acute District Manager In Training for [facility] Fwd Diagnoses Hypertension I15.0 Hypertension type: renovascular hypertension
--- NOTE | 2022-05-23 09:46 | US_ITS ---
WS: [id number] INDICATION: Ascites TECHNIQUE: Ultrasound abdomen 4 quadrant FINDINGS: Ultrasound of the 4 quadrant survey. Only a small amount of abdominal ascites is visualized . Insufficient fluid for paracentesis. The majority of the ascites on CT is located in the pelvis and perihepatic. US/US abdomen lmt fluid [id number] IMPRESSION: Small volume abdominal ascites.
[2022-05-23] MEDS: levothyroxine 150 mcg Tablet PO (09:54)
[2022-05-23] MEDS: carvedilol 25 mg Tablet PO ×2 (09:55→19:03)
--- NOTE | 2022-05-23 10:51 | PC.NURSE ---
IMM IMM given to pt with patient verbalizing understanding. Spouse at bedside. All questions answered. Second page initialed, dated, and timed in chart.
--- NOTE | 2022-05-23 13:32 | PM.PN ---
Subjective Subjective: This morning patient was stating that she has had no bowel movement since admission, she is feeling better, no active emesis, she is tolerating p.o. vancomycin Hepatitis panel negative Will check AFP Abdominal imaging that showed mesenteric edema, ascites Vitals/I&O/Wt Last Vital Signs Temp 98.3 F 05/23/22 07:43 Pulse 73 05/23/22 07:43 Resp 14 05/23/22 07:43 BP 165/86 05/23/22 07:43 Pulse Ox 95 05/23/22 07:43 05/22/22 05/23/22 05/23/22 22:59 06:59 14:59 Output Total 0 / 0 0 / 0 Balance 0 / 100 0 / 100 Weight last 48 hrs Weight 102.421 kg Weight 102 kg Physical Exam Narrative: Patient is sitting in her bed at the bedside Saturating well on room air Very pleasant and cooperative Abdomen distended however no active rigidity guarding or peritonitis No STEMI no swelling Left leg amputee Awake and alert Does not look dehydrated No signs of SBP Ascites positive Data : 05/23/22 03:20 05/23/22 06:05 A&P Assessment and plan (1) ESRD (end stage renal disease): Status: Chronic (2) C. difficile colitis: Status: Acute (3) Increased anion gap metabolic acidosis: Status: Acute (4) Ascites: Status: Acute Plan Ascites without SBP I requested abdominal paracentesis for therapeutic purposes IR notified Hold heparin No leukocytosis Sepsis resolved Nausea, vomiting resolved Left-sided loculated effusion which is chronic no active signs of infection End-stage renal disease, patient nephro recommendation C. difficile diarrhea: Diarrhea has improved She will need p.o. vancomycin 250 mg 4 times daily for 10 days Will give her refill from our pharmacy Continue levothyroxine for hypothyroidism And plan to discharge her tomorrow after her paracentesis Ascites most likely is due to underlying end-stage renal disease, hepatitis panel was negative, I will check AFP level Attestations Medical Necessity Statement*: Discharge home tomorrow Time Spent in Patient Care: 30 Coding Level of Care Code Acute Housekeeping/Laundry for Chg Fwd Diagnoses ESRD (end stage renal disease) N18.6 C. difficile colitis A04.72 Increased anion gap metabolic acidosis E87.2 Ascites R18.8
[2022-05-23 14:37] LABS: Tumor Marker Alpha Fetoprotein 0.6 ng/mL (0-8.3)
[2022-05-23] MEDS: epoetin alfa (ESRD) 5,000 UNIT in SYRINGE 1 EACH 0.25 UNIT IVP (14:53)
[2022-05-23] MEDS: heparin, porcine 1,000 unit/mL INJ 10 mL 1000 UNIT IV (14:54)
--- NOTE | 2022-05-23 15:32 | PC.NURSE ---
at dialysis room
--- NOTE | 2022-05-23 20:15 | PC.NURSE ---
Shift Note Frequent safety and comfort rounds continue. Orders and/or nursing care completed as indicated. Patient monitored for response to intervention and treatment(s). Education provided includes paracentesis, pt reported of getting sick to he stomach w/ metronidazole IV, refused to get it, notified Dr Hooks and ok to hold it.. Patient and/or payable representative verbalizes understanding. Will continue to monitor.
--- NOTE | 2022-05-23 20:17 | PC.NURSE ---
medication time adjusted Per pt, she usually takes her aspirin and plavix at night time. notified dr mejia at bedside and we discuss to hold it for possible paracentesis. both meds time readjusted for tonight.
[2022-05-23] MEDS: aspirin 81 mg Chew Tablet PO (20:38)
[2022-05-23] MEDS: clopidogrel 75 mg Tablet PO (20:38)
[2022-05-24] VITALS: BP 152/83; PULSE 81; RESP 19; TEMP 36.8; O2SAT 98
[2022-05-24 03:46] LABS: Alanine Aminotransferase < 5 U/L (0-33); Albumin Level 2.8 g/dL (3.5-5.2); Alkaline Phosphatase 139 IU/L (35-105); Aspartate Amino Transferase 10 U/L (0-32); Blood Urea Nitrogen 20 mg/dL (6-20); Calcium 7.9 mg/dL (8.5-10.5); Carbon Dioxide 25 mmol/L (22-29); Chloride 99 mmol/L (98-107); Globulin 4.4 g/dL (1.3-4.6); Glomerular Filtration Rate 11.5 mL/min (90-130); Glucose 110 mg/dL (65-115); Osmolality Calculated 283 mOsm/kg (285-295); Sodium 135 mmol/L (136-145); Total Bilirubin 0.6 mg/dL (0.15-1.2); Total Protein 7.2 g/dL (6.6-8.7)
[2022-05-24 03:49] LABS: Anion Gap 15.1 (5-19); Potassium 4.1 mmol/L (3.5-5.1)
[2022-05-24 04:00] VITALS: BP 161/81; PULSE 67; RESP 18; TEMP 36.8; O2SAT 98
[2022-05-24 06:00] VITALS: PULSE 67
[2022-05-24 08:00] VITALS: BP 158/84; PULSE 67; RESP 16; TEMP 36.6; O2SAT 95
--- NOTE | 2022-05-24 08:16 | PM.DCS ---
Discharge Providers Date of Admission: 05/20/22 13:09 Date of Discharge: May 24, 2022 Attending Provider at Admission: Sudheer Spaulding MD Attending Provider at Discharge: Ramone Hooks MD Primary Care Provider: Karen Bear MD Diagnoses at Discharge Discharge Diagnosis (1) ESRD (end stage renal disease): Status: Chronic Permanent problem details: previously on peritoneal dialysis currently on hemodialysis (2) C. difficile colitis: Status: Acute (3) Increased anion gap metabolic acidosis: Status: Acute (4) Ascites: Status: Acute Reason for Visit Reason for Visit: N/D/V Hospital Course Hospital Course 61-year female with a history of coronary disease s/p multiple stents (?06/2021: LAD with orbital arthrectomy and PCI with JD x 2 including bifurcation stenting of mid LAD and diagonal artery using mini-crush technique (2 stents placed in LAD and 1 in diagonal artery), ischemic cardiomyopathy (last LVEF of 25%, 09/2021), end-stage renal disease on hemodialysis via tunneled catheter x ~1 yr, hypertension, type 2 diabetes,? 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 Patient recently was discharged from [facility], diagnosed with C. difficile colitis, discharged on p.o. vancomycin, received inpatient dialysis. Patient stated that as soon as she returned home she was unable to keep anything down and she did not like the taste of oral vancomycin, however during her hospitalization she was able to take p.o. vancomycin without any difficulty, her vancomycin dose was increased to 250 mg, CT abdomen pelvis was unremarkable, for her increased anion gap metabolic acidosis and hyperkalemia she was dialyzed, that corrected her electrolyte imbalance and acidosis. Nausea and vomiting improved as well. Hemoglobin A1c less than 6.5, doubt diabetic gastroparesis. Improved EF 40% from 15% Her CT scan her abdomen pelvis showed small loculated small pleural effusion with thickening stable abdominal ascites and mild mesenteric edema moderate body wall edema. I requested IR to see if we can do paracentesis to relieve her shortness of breath however ascitic fluid was mostly located in the pelvis which was not drainable. Patient will be discharged home on p.o. vancomycin 250 mg 4 times daily 10-day regimen. Her metronidazole was discontinued during hospitalization. Her KUB showing ileus, she is passing flatus, tolerating her diet and medication. Patient is very anxious to return home today. She is high risk for readmissions secondary to her GI symptoms. On 05/24 repeat KUB, her CT scan of abdomen did not show ileus, I did call radiologist to discuss x-ray findings, they are not currently toxic megacolon but there is a lot of fluid collection in her small bowel, when I revisited the patient she was on bedside commode having a bowel movement, she had a small liquid bowel movement on 05/24 Patient does have a lot of reservations to the treatment plan for her C. difficile, she does not want to use IV metronidazole or vancomycin rectal enema. Physical Exam Narrative: Patient is sitting in her bed at the bedside Saturating well on room air Very pleasant and cooperative Abdomen distended however no active rigidity guarding or peritonitis Left leg amputee Awake and alert Does not look dehydrated No signs of SBP Ascites positive Discharge Data Studies Completed and Pending Completed Studies During Hospitalization Category Date Time Status CT abdomen pelvis wo con [id number] Routine Cat Scan 05/22/22 17:10 Completed XR KUB portable [id number] Stat Exams 05/20/22 12:49 Completed XR chest 1V portable [id number] Stat Exams 05/20/22 12:25 Completed US abdomen lmt fluid [id number] Routine Ultrasound 05/23/22 09:46 Completed Pending at discharge Category Date Time Status Blood Culture Stat Lab 05/20/22 19:57 Results Clostridioides Difficile PCR Routine Lab 05/20/22 12:49 Ordered Enteric Bacterial Panel by PCR Routine Lab 05/20/22 12:49 Ordered Enteric Parasite Panel by PCR Routine Lab 05/20/22 12:49 Ordered Immunochemical Fecal OCB Routine Lab 05/20/22 12:49 Ordered Lactoferrin Routine Lab 05/20/22 12:49 Ordered Radiology Impressions Chest X-Ray 05/20/22 12:25 Impression: Patchy opacity in left lower lobe consistent with atelectasis, scarring, loculated effusion and less likely pneumonia. KUB X-Ray 05/20/22 12:49 Impression: 1. Probable ascites. 2. Mild generalized ileus. 3. Left basilar atelectasis. Abdomen/Pelvis CT 05/22/22 17:10 IMPRESSION: 1. Stable loculated small left pleural effusion with associated pleural thickening. 2. Stable large volume ascites and mild mesenteric edema. 3. Stable moderate body wall edema. 4. Stable small right pleural effusion. 5. Stable indeterminate foci in both right and left adrenal glands dating back to 06/13/2021. 6. Incidental/nonacute findings are listed in the report. Abdomen Ultrasound 05/23/22 09:46 IMPRESSION: Small volume abdominal ascites. Laboratory Results WBC 6.1 10^3/uL (4.0-10.0) 05/23/22 03:20 RBC 2.74 10^6/uL (4.1-5.3) L 05/23/22 03:20 Hgb 9.1 g/dL (11.5-15.3) L 05/23/22 03:20 Hct 28.9 % (37.0-47.0) L 05/23/22 03:20 MCV 105.5 fl (81-99) H 05/23/22 03:20 MCH 33.2 pg (28.0-34.0) 05/23/22 03:20 MCHC 31.5 g/dL (30.0-36.0) 05/23/22 03:20 RDW 15.2 % (12.1-15.1) H 05/23/22 03:20 Plt Count 261 10^3/cmm (130-400) 05/23/22 03:20 MPV 9.5 fL (7.4-10.4) 05/23/22 03:20 Neut % (Auto) 67.9 % 05/23/22 03:20 Lymph % (Auto) 12.1 % 05/23/22 03:20 [place] % (Auto) 15.7 % 05/23/22 03:20 Eos % (Auto) 3.1 % 05/23/22 03:20 Baso % (Auto) 1.0 % 05/23/22 03:20 Neut # (Auto) 4.14 10^3/uL (1.8-7.7) 05/23/22 03:20 Lymph # (Auto) 0.7 10^3/uL (0.8-4.8) L 05/23/22 03:20 [place] # (Auto) 1.0 10^3/uL (0.2-0.9) H 05/23/22 03:20 Eos # (Auto) 0.2 10^3/uL (0.0-0.8) 05/23/22 03:20 Baso # (Auto) 0.1 10^3/uL (0.0-0.1) 05/23/22 03:20 Nucleated RBC % (auto) 0 % 05/23/22 03:20 Nucleated RBCs # 0.0 /100WBC 05/23/22 03:20 PT 17.70 SECONDS (12.1-14.9) H 05/20/22 15:36 INR 1.42 (0.8-1.2) H 05/20/22 15:36 Sodium 135 mmol/L (136-145) L 05/24/22 03:18 Potassium 4.1 mmol/L (3.5-5.1) 05/24/22 03:18 Chloride 99 mmol/L (98-107) 05/24/22 03:18 Carbon Dioxide 25 mmol/L (22-29) 05/24/22 03:18 Anion Gap 15.1 (5-19) 05/24/22 03:18 BUN 20 mg/dL (6-20) 05/24/22 03:18 Creatinine 4.0 mg/dL (0.5-0.9) H 05/24/22 03:18 GFR Calculation 11.5 mL/min (90-130) L 05/24/22 03:18 Glucose 110 mg/dL (65-115) 05/24/22 03:18 POC Glucose 147 mg/dL (70-110) H 05/22/22 17:01 Calculated Osmolality 283 mOsm/kg (285-295) L 05/24/22 03:18 Lactic Acid 0.5 mmol/L (0.5-2.2) 05/20/22 15:36 Calcium 7.9 mg/dL (8.5-10.5) L 05/24/22 03:18 Phosphorus 5.8 mg/dL (2.5-4.5) H 05/23/22 06:05 Magnesium 1.9 mg/dL (1.7-2.3) 05/23/22 06:05 Iron Cancelled 05/23/22 03:20 TIBC Cancelled 05/23/22 03:20 % Saturation Cancelled 05/23/22 03:20 Unsat Iron Binding Cancelled 05/23/22 03:20 Ferritin Cancelled 05/23/22 03:20 Total Bilirubin 0.6 mg/dL (0.15-1.2) 05/24/22 03:18 AST 10 U/L (0-32) 05/24/22 03:18 ALT < 5 U/L (0-33) 05/24/22 03:18 Alkaline Phosphatase 139 IU/L (35-105) H 05/24/22 03:18 C-Reactive Protein 12.3 mg/L (0.0-4.9) H 05/20/22 11:35 NT-Pro-B Natriuret Pep > 37441 pg/mL (0-125) H 05/20/22 11:35 Total Protein 7.2 g/dL (6.6-8.7) 05/24/22 03:18 Albumin 2.8 g/dL (3.5-5.2) L 05/24/22 03:18 Globulin 4.4 g/dL (1.3-4.6) 05/24/22 03:18 Tumor Marker AFP 0.6 ng/mL (0-8.3) 05/23/22 06:05 Procalcitonin 0.20 ng/mL (0-0.5) 05/20/22 11:35 TSH 4.12 uIU/mL (0.27-4.20) 05/20/22 11:35 Urine Color Brown (Yellow) 05/20/22 11:00 Urine Appearance Turbid (CLEAR) 05/20/22 11:00 Urine pH 8 (5-7) H 05/20/22 11:00 Ur Specific [place] 1.010 (1.005-1.030) 05/20/22 11:00 Urine Protein Neg (Negative) 05/20/22 11:00 Urine Glucose (UA) Norm (Normal) 05/20/22 11:00 Urine Ketones Negative (Negative) 05/20/22 11:00 Urine Blood 3+ (Negative) H 05/20/22 11:00 Urine Nitrate Negative (Negative) 05/20/22 11:00 Urine Bilirubin 2+ (Negative) H 05/20/22 11:00 Prot Sulfosalicylic Acd Negative (Negative) 05/20/22 11:00 Urine Urobilinogen Norm mg/dL (Negative) 05/20/22 11:00 Ur Leukocyte Esterase 2+ (Negative) H 05/20/22 11:00 Urine RBC 0-4 /hpf (0-2) H 05/20/22 11:00 Urine WBC 10-15 /hpf (0-5) H 05/20/22 11:00 Ur Squamous Epith Cells 5-10 /hpf (0-5) H 05/20/22 11:00 Amorphous Sediment Not Reportable 05/20/22 11:00 Urine Bacteria 2+ /hpf (NONE) H 05/20/22 11:00 Serum Ketones Negative (Negative) 05/20/22 12:25 Hep Bs Antigen Non-reactive (Nonreactive) 05/20/22 12:25 Hepatitis C Antibody Non-reactive (Nonreactive) 05/20/22 12:25 Vitals Last Vital Signs Temp 98.3 F 05/24/22 04:00 Pulse 67 05/24/22 06:00 Resp 18 05/24/22 04:00 BP 161/81 05/24/22 04:00 Pulse Ox 98 05/24/22 04:00 Discharge Plan Discharge Patient Disposition: Home Condition: Stable Prescriptions: New Vancocin 250 mg capsule 250 mg PO Q6H 7 Days Qty: 28 0RF Continued gentamicin 0.1 % cream 1 applic topical TID PRN (Reason: Rash) 0RF nystatin 100,000 unit/gram cream 1 applic topical BID PRN (Reason: Rash) 0RF (DME) [employer] See Rx Instructions .Route .MEDSUPPLY Qty: 1 0RF Rx Instructions: As directed hydralazine 50 mg tablet 50 mg PO BID 0RF clopidogrel 75 mg tablet 75 mg PO DAILY 90 Days Qty: 90 2RF nitroglycerin 0.4 mg Tablet, Sublingual 0.4 mg sublingual Q5M PRN (Reason: Chest Pain) 30 Days Qty: 30 2RF aspirin [Children's Aspirin] 81 mg Tablet,Chewable 81 mg PO DAILY 90 Days Qty: 90 2RF Tums Ultra 470 mg calcium (1,177 mg) tablet,chewable 3,531 mg PO TIDWM PRN (Reason: Heartburn) 0RF carvedilol [Coreg] 25 mg Tablet 25 mg PO BID 0RF vancomycin 125 mg capsule 125 mg PO Q6H 9 Days Qty: 36 0RF furosemide [Lasix] 80 mg Tablet 80 mg PO BID Qty: 0 0RF ondansetron HCl 8 mg tablet 8 mg PO Q6H PRN (Reason: Nausea) 0RF Euthyrox 150 mcg tablet 150 mcg PO DAILY 0RF Discharge Orders: Discharge Order (Routine); Ordered 05/24/22 Ordered By: Ramone Hooks Referrals: Karen Bear MD [Primary Care Provider] - 05/31/22 11:00 am (Your follow up appointment is on May 31 at 11:00 AM Please call [phone] if you have any questions or concerns. Thank you.) Discharge Diet: Cardiac Discharge Activity: As per PT/OT instructions Patient Instructions: Ascites, Clostridium Difficile, Vancomycin (By mouth), Opioid Safety Discharge Attestations Time Spent in Discharge Care*: less than 30 min Status at Discharge: Cognitive status at discharge: cognitively intact, Behavioral status at discharge: cooperative, Quality Metrics Clinical Quality Measures [ No reported AMI, CVA or VTE this stay] Coding Level of Care Code Acute g DC note Diagnoses ESRD (end stage renal disease) N18.6 C. difficile colitis A04.72 Increased anion gap metabolic acidosis E87.2 Ascites R18.8
--- NOTE | 2022-05-24 09:04 | XR_ITS ---
WS: [id number] ABDOMEN KUB CLINICAL INFORMATION: Abdominal pain COMPARISON: May 20, [address] May 22, 2022 FINDINGS: Dense splenic artery calcification. Cholecystectomy clips. Scattered air normal caliber small and lar ge bowel. No evidence of high-grade obstruction. Mild LEFT colon constipation. Osteopenia. Advanced spondylitic changes lumbar spine. XR/XR KUB portable [id number] Impression: 1. Previously described ileus has improved. Normal caliber small and large bow el today. No evidence of high-grade obstruction. 2. Mild LEFT colon constipation. 3. No other significant interval changes.
[2022-05-24] MEDS: aspirin 81 mg Chew Tablet PO (09:21)
[2022-05-24] MEDS: carvedilol 25 mg Tablet PO (09:21)
[2022-05-24] MEDS: clopidogrel 75 mg Tablet PO (09:21)
[2022-05-24] MEDS: levothyroxine 150 mcg Tablet PO (09:21)
[2022-05-24] MEDS: hyDRALAzine 50 mg Tablet PO (11:33)
[2022-05-24] MEDS: metoclopramide 5 mg/mL SDV 2 mL 10 MG IVP (11:33)
[2022-05-24 11:35] VITALS: BP 154/79; PULSE 71; RESP 16; TEMP 36.6; O2SAT 96
== END 2022-05-24 13:10 | disposition home or self-care (01) | DRG 371 ==
LOC: ER 11:39 → ICU 13:29 → MEDSURG 05-21 13:38
PROVIDERS: Internal Medicine; Admitting Provider Family Medicine; Emergency Provider Family Medicine; PCP Family Medicine; Visit Provider Internal Medicine
DX: A04.72 Enterocolitis due to Clostridium difficile, not specified as recurrent (principal); N18.6 End stage renal disease; I13.2 Hypertensive heart and chronic kidney disease with heart failure and with stage 5 chronic kidney disease, or end stage renal disease; I50.22 Chronic systolic (congestive) heart failure; E87.2 Acidosis; R18.8 Other ascites; K56.7 Ileus, unspecified; N17.9 Acute kidney failure, unspecified; E11.22 Type 2 diabetes mellitus with diabetic chronic kidney disease; Z99.2 Dependence on renal dialysis; Z91.15 Patient's noncompliance with renal dialysis; D63.1 Anemia in chronic kidney disease; I25.10 Atherosclerotic heart disease of native coronary artery without angina pectoris; Z95.5 Presence of coronary angioplasty implant and graft; E11.610 Type 2 diabetes mellitus with diabetic neuropathic arthropathy; Z86.14 Personal history of Methicillin resistant Staphylococcus aureus infection; E78.5 Hyperlipidemia, unspecified; E03.9 Hypothyroidism, unspecified; I25.5 Ischemic cardiomyopathy; E11.42 Type 2 diabetes mellitus with diabetic polyneuropathy; Z89.512 Acquired absence of left leg below knee; E87.5 Hyperkalemia; Z79.82 Long term (current) use of aspirin; Z79.02 Long term (current) use of antithrombotics/antiplatelets; E86.0 Dehydration
CPT/HCPCS: 36415; 36416; 71045; 74018; 74176; 76705; 80053; 81001; 82009; 82105; 82962; 83605; 83735; 83880; 84100; 84145; 84443; 85025; 85610; 86140; 86803; 87040; 87086; 87340; 93005; 94664; 96361; 96372; 96374; 96375; 99285; C9113; J1644; J2270; J2405; J2765; J3370; J3490; Q3014; Q4081; S0030

== ENCOUNTER 2022-05-31 07:25 | Emergency (ER) | payer MEDICARE, MEDICAID, SELFPAY ==
[2022-05-31] VITALS (7 sets, daily range): BP systolic 125–150; BP diastolic 75–85; PULSE 68–78; RESP 14–24; TEMP 36.4; O2SAT 91–98; BMI 37.3
[2022-05-31 07:55] LABS: Basophils # 0.1 10^3/uL (0.0-0.1); Basophils % 1.4 %; Eosinophils # 0.2 10^3/uL (0.0-0.8); Eosinophils % 3.3 %; Hematocrit 29.1 % (37.0-47.0); Hemoglobin 9.3 g/dL (11.5-15.3); Lymphocytes # 0.5 10^3/uL (0.8-4.8); Lymphocytes % 9.4 %; Mean Corpuscular Hemoglobin 33.1 pg (28.0-34.0); Mean Corpuscular Volume 103.6 fl (81-99); Mean Platelet Volume 9.3 fL (7.4-10.4); Monocytes # 0.9 10^3/uL (0.2-0.9); Monocytes % 14.7 %; Neutrophils # 4.09 10^3/uL (1.8-7.7); Neutrophils % 70.9 %; Nucleated Red Blood Cells % 0 %; Platelet Count 230 10^3/cmm (130-400); Red Blood Count 2.81 10^6/uL (4.1-5.3); Red Cell Distribution Width 15.1 % (12.1-15.1); White Blood Count 5.8 10^3/uL (4.0-10.0)
--- NOTE | 2022-05-31 07:55 | ED_ITS ---
HPI - General Adult General: Chief complaint: General Medical Stated complaint: N/V/D/ has C-diff Time Seen by Provider: 05/31/22 07:29 Source: patient Mode of arrival: wheelchair Limitations: no limitations History of Present Illness: 61-year-old female presents emergency room with complaints of persistent diarrhea. Patient has known C. difficile and has been on oral vancomycin she was recently hospitalized for same she states she did better when she is in the hospital and went home she was continue take vancomycin and has not had any decrease in stool output. She reports having 2-3 stools per half hour this morning. She denies hematochezia or melena no fever sweats chills some moderate abdominal cramping but that has not been worsening. Onset (ago): week(s) Location: abdomen Quality: aching Pain Consistency: intermittent Exacerbating factors: none Associated symptoms: Reports decreased appetite and nausea; Deny chest pain, confusion, cough, diaphoresis, dyspnea, fevers/chills, headache(s), malaise, rash, palpitations, seizures, short of breath, syncope, vomiting or weakness Treatments prior to arrival: none Review of Systems Const: Reports: fatigue; Denies: fever(s), chills, malaise or diaphoresis ENMT: Denies: throat pain, ear or mastoid pain, nasal discharge or nasal conge stion Card: Denies: chest pain, palpitations or syncope Resp: Denies: dyspnea, productive cough, non-productive cough or wheezing GI: Reports: abdominal pain, nausea and diarrhea; Denies: vomiting : Denies: flank pain, difficulty voiding, dysuria, urinary frequency or urinary urgency Skin/Breast: Denies: rash Neuro: Denies: headache(s) or confusion [facility] ED PFSH: Medical History Anemia Chronic kidney disease and blood loss, has previously required transfusion Anemia Aortic valve endocarditis (~04/2020) CAD (coronary artery disease) Charcot's joint of foot in type 2 diabetes mellitus Congestive heart failure systolic Diabetes Diabetes mellitus type 2, not on medications, HbA1c 10/2021 5.2 Diabetic ulcer of left foot Diabetic ulcer of right foot Diarrhea Difficult intravenous access Epidural abscess (~2017) ESRD (end stage renal disease) previously on peritoneal dialysis currently on hemodialysis History of colon polyps History of MRSA infection spinal abscess 2017 Hyperlipidemia Hypertension Hypothyroidism Ischemic cardiomyopathy EF 05/2020 65% >> 06/2021 15%, 09/2021 25% 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 Severe proximal to mid LAD stenosis. Severe ostial diagonal artery stenosis. 2. Successful revascularization of the LAD with orbital arthrectomy and PCI with JD x 2 including bifurcation stenting of mid LAD and diagonal artery using mini-crush technique (2 stents placed in LAD and 1 in diagonal artery). History of cholecystectomy History of colonoscopy with polypectomy 2017 History of left below knee amputation History of lumbar surgery Due to epidural abscess in March 2018 Peritoneal dialysis catheter in place removal 05/20/21 S/P hemodialysis catheter insertion multiple Family History Mother Cancer Uterine and breast cancer Father Diabetes Other CAD (coronary artery disease) Social History Smoking and tobacco status: never smoked Alcohol intake: current Alcohol intake frequency: holidays/special occasions only Marital status: Physical Exam Const: GENERAL APPEARANCE: cooperative and comfortable ORIENTATION/CONSCIOUSNESS: Yes awake, Yes oriented to person, Yes oriented to place and Yes oriented to time HENMT: COMMON NORMALS: normocephalic, atraumatic and hearing grossly normal bilaterally HEAD & SCALP: normocephalic and atraumatic Resp: COMMON NORMALS: normal respiratory effort, No retractions, No use of accessory muscles and clear to auscultation bilaterally AUSCULTATION: clear to auscultation bilaterally Cardio: COMMON NORMALS: regular rate, regular rhythm and No murmurs present (Cardio) RATE: regular rate RHYTHM: regular rhythm GI: COMMON NORMALS: No hepatosplenomegaly present AUSCULTATION: Yes normoactive bowel sounds PALPATION: Yes Tenderness to palpation present (GI), No Guarding due to palpation present (GI) and Yes No hepatosplenomegaly present PERCUSSION: tympanic to percussion Extremity: COMMON NORMALS: normal to inspection, capillary refill normal, no clubbing, cyanosis or edema, no calf tenderness and no pedal edema Neuro: SENSORIUM/ORIENTATION: Yes oriented to person, Yes oriented to place and Yes oriented to time Skin: COMMON NORMALS: no rashes or lesions noted GENERAL SKIN EXAM: no rashes or lesions noted Course Vital Signs: Vital signs: Vital Signs Temperature 97.6 F 05/31/22 07:32 Pulse Rate 68 05/31/22 10:30 Respiratory Rate 14 05/31/22 10:30 Blood Pressure 138/81 05/31/22 09:35 Pulse Oximetry 93 05/31/22 10:30 MDM - General Adult Medical Decision Making Treated mild hyperkalemia. Patient is due for dialysis tomorrow I think she will be fine to get then. We will switch her referral oral vancomycin to Dificid 200 twice daily she will have to get that tomorrow none of the local pharmacies have it available and will have to be ordered in we called and checked several pharmacies. Offered patient refill on her promethazine however she states she has plenty. Medical Records I reviewed the patient's medical records. Lab Data I reviewed the patient's lab results. : 05/31/22 07:52 05/31/22 07:52 Radiology Impressions Abdomen/Pelvis CT 05/31/22 08:01 IMPRESSION: 1. Stable small loculated LEFT pleural effusion/empyema with stable patchy infiltrates in the LEFT greater than RIGHT lower lobe. 2. Small volume perihepatic and perisplenic ascites. Stable ascites in the pelvis. 3. Diffuse body wall anasarca and mesenteric edema is unchanged. 4. Mild fluid distention and thickening of the sigmoid colon nonspecific but can be seen with infectious or inflammatory colitis. Air-fluid levels in the transverse colon. 5. Remainder of the small and large bowel are normal in appearance. 6. Dense vascular calcification. 7. No other significant changes compared to previous. Laboratory Results WBC 5.8 10^3/uL (4.0-10.0) 05/31/22 07:52 RBC 2.81 10^6/uL (4.1-5.3) L 05/31/22 07:52 Hgb 9.3 g/dL (11.5-15.3) L 05/31/22 07:52 Hct 29.1 % (37.0-47.0) L 05/31/22 07:52 MCV 103.6 fl (81-99) H 05/31/22 07:52 MCH 33.1 pg (28.0-34.0) 05/31/22 07:52 MCHC 32.0 g/dL (30.0-36.0) 05/31/22 07:52 RDW 15.1 % (12.1-15.1) 05/31/22 07:52 Plt Count 230 10^3/cmm (130-400) 05/31/22 07:52 MPV 9.3 fL (7.4-10.4) 05/31/22 07:52 Neut % (Auto) 70.9 % 05/31/22 07:52 Lymph % (Auto) 9.4 % 05/31/22 07:52 Kimble % (Auto) 14.7 % 05/31/22 07:52 Eos % (Auto) 3.3 % 05/31/22 07:52 Baso % (Auto) 1.4 % 05/31/22 07:52 Neut # (Auto) 4.09 10^3/uL (1.8-7.7) 05/31/22 07:52 Lymph # (Auto) 0.5 10^3/uL (0.8-4.8) L 05/31/22 07:52 Kimble # (Auto) 0.9 10^3/uL (0.2-0.9) 05/31/22 07:52 Eos # (Auto) 0.2 10^3/uL (0.0-0.8) 05/31/22 07:52 Baso # (Auto) 0.1 10^3/uL (0.0-0.1) 05/31/22 07:52 Nucleated RBC % (auto) 0 % 05/31/22 07:52 Nucleated RBCs # 0.0 /100WBC 05/31/22 07:52 PT 17.20 SECONDS (12.1-14.9) H 05/31/22 11:25 INR 1.37 (0.8-1.2) H 05/31/22 11:25 Sodium 136 mmol/L (136-145) 05/31/22 07:52 Potassium 5.4 mmol/L (3.5-5.1) H 05/31/22 07:52 Chloride 100 mmol/L (98-107) 05/31/22 07:52 Carbon Dioxide 24 mmol/L (22-29) 05/31/22 07:52 Anion Gap 17.4 (5-19) 05/31/22 07:52 BUN 32 mg/dL (6-20) H 05/31/22 07:52 Creatinine 5.7 mg/dL (0.5-0.9) H* 05/31/22 07:52 GFR Calculation 7.6 mL/min (90-130) L 05/31/22 07:52 Glucose 97 mg/dL (65-115) 05/31/22 07:52 Calculated Osmolality 289 mOsm/kg (285-295) 05/31/22 07:52 Calcium 9.0 mg/dL (8.5-10.5) 05/31/22 07:52 Total Bilirubin 0.7 mg/dL (0.15-1.2) 05/31/22 07:52 AST 13 U/L (0-32) 05/31/22 07:52 ALT < 5 U/L (0-33) 05/31/22 07:52 Alkaline Phosphatase 174 IU/L (35-105) H 05/31/22 07:52 Total Protein 7.6 g/dL (6.6-8.7) 05/31/22 07:52 Albumin 3.2 g/dL (3.5-5.2) L 05/31/22 07:52 Globulin 4.4 g/dL (1.3-4.6) 05/31/22 07:52 Discharge Plan Discharge Patient Disposition: Home Clinical Impression: C. difficile colitis, ESRD (end stage renal disease), Hyperkalemia Condition: Stable Prescriptions: New Dificid 200 mg tablet 200 mg PO BID 10 Days Qty: 20 0RF No Action gentamicin 0.1 % cream 1 applic topical TID PRN (Reason: Rash) 0RF nystatin 100,000 unit/gram cream 1 applic topical BID PRN (Reason: Rash) 0RF (DME) Stump Bi Report Developer See Rx Instructions .Route .MEDSUPPLY Qty: 1 0RF Rx Instructions: As directed hydralazine 50 mg tablet 50 mg PO BID 0RF nitroglycerin 0.4 mg Tablet, Sublingual 0.4 mg sublingual Q5M PRN (Reason: Chest Pain) 30 Days Qty: 30 2RF carvedilol [Coreg] 25 mg Tablet 25 mg PO BID 0RF furosemide [Lasix] 80 mg Tablet 80 mg PO BID Qty: 0 0RF ondansetron HCl 8 mg tablet 8 mg PO Q6H PRN (Reason: Nausea) 0RF doxazosin 8 mg tablet 8 mg PO BID 0RF promethazine 25 mg tablet 25 mg PO Q6H PRN (Reason: Nausea And Vomiting) 0RF vancomycin 50 mg/mL recon soln See Rx Instructions .ROUTE .COMPLEX 0RF Rx Instructions: 2.5ML PO BID QID FOR 10 DAYS (DISCARD REMAINING AMOUNT) clopidogrel 75 mg tablet 75 mg PO BEDTIME 0RF Euthyrox 150 mcg tablet 150 mcg PO QAM 0RF Children's Aspirin 81 mg tablet,chewable 81 mg PO BEDTIME 0RF Tums 300 mg (750 mg) Tablet,Chewable 2 tab PO PRN 0RF Metamucil 3.4 gram/5.4 gram Powder 1 tbsp PO DAILY 0RF Rx Instructions: mix into at least 8 oz of water or juice before administering Bio 360 Caps 1 cap PO DAILY 0RF Discharge Orders: Discharge ED (Routine); Ordered 05/31/22 Ordered By: Shelton Saunders Referrals: Karen Bear MD [Primary Care Provider] - Discharge Diet: Clear Liquid Discharge Activity: Increase activity as tolerated Activity Restrictions/Additional Instructions: Start Dificid as soon as you are able. Stop vancomycin. It is critically important for you to attend your dialysis run tomorrow. Coding Level of Care Code ED Assembler Unit for [employer]kit[employer] Fwd Exam Detailed
[2022-05-31] MEDS: ondansetron 2 mg/ML SDV 2 mL 4 MG IVP (07:56)
[2022-05-31] MEDS: sodium chloride 0.9% 1,000 ML 999 ML IV ×2 (07:57)
--- NOTE | 2022-05-31 08:01 | CT_ITS ---
WS: [id number] CT ABDOMEN PELVIS TECHNIQUE: Noncontrast CT of the abdomen and pelvis with coronal and sagittal reformatted images. CLINICAL INFORMATION: Abdominal pain COMPARISON: CT May 22, 2022 DLP: 1422.[address] scans at [facility] use at least one of these dose optimization techniques: automated e xposure control; mA and/or kV adjustment per patient size (includes targeted exams where dose is matc hed to clinical indication); or iterative reconstruction. FINDINGS: Small loculated LEFT pleural effusion/empyema is unchanged in appearance. Slight patchy infiltrates i n the LEFT greater than RIGHT lower lobe. This is similar to previous. Small amount perihepatic and p erisplenic ascites. Aortic calcification. Coronary calcification. Normal caliber abdominal aorta. Spl enic artery calcification. Stable prominent periaortic lymph nodes likely reactive. Diffuse body wall anasarca and mesenteric edema similar to previous. Ascites in the pelvis unchanged from previous. Mild fluid distention and thickening of the sigmoid colon. Air-fluid levels in normal caliber transverse colon. LEFT colon is decompressed. Small bowel is decompressed. No evidence of hig h-grade obstruction. Advanced spondylitic changes lumbar spine unchanged. Severe central canal stenos is L4-L5 is unchanged. Reactive inguinal lymph nodes. CT/CT abdomen pelvis wo con [id number] IMPRESSION: 1. Stable small loculated LEFT pleural effusion/empyema with stable patchy inf iltrates in the LEFT greater than RIGHT lower lobe. 2. Small volume perihepatic and perisplenic ascites. Stable ascites in the pel vis. 3. Diffuse body wall anasarca and mesenteric edema is unchanged. 4. Mild fluid distention and thickening of the sigmoid colon nonspecific but c an be seen with infectious or inflammatory colitis. Air-fluid levels in the tra nsverse colon. 5. Remainder of the small and large bowel are normal in appearance. 6. Dense vascular calcification. 7. No other significant changes compared to previous.
[2022-05-31 08:24] LABS: Alanine Aminotransferase < 5 U/L (0-33); Albumin Level 3.2 g/dL (3.5-5.2); Alkaline Phosphatase 174 IU/L (35-105); Aspartate Amino Transferase 13 U/L (0-32); Blood Urea Nitrogen 32 mg/dL (6-20); Carbon Dioxide 24 mmol/L (22-29); Chloride 100 mmol/L (98-107); Globulin 4.4 g/dL (1.3-4.6); Glomerular Filtration Rate 7.6 mL/min (90-130); Glucose 97 mg/dL (65-115); Osmolality Calculated 289 mOsm/kg (285-295); Sodium 136 mmol/L (136-145); Total Bilirubin 0.7 mg/dL (0.15-1.2); Total Protein 7.6 g/dL (6.6-8.7)
[2022-05-31 08:27] LABS: Anion Gap 17.4 (5-19); Potassium 5.4 mmol/L (3.5-5.1)
[2022-05-31] MEDS: morphine 4 mg/mL SDV 1 mL IVP (09:33)
[2022-05-31] MEDS: sodium polystyrene sulfonate 15 gm/60 mL Btl PO (11:25)
[2022-05-31] MEDS: calcium chloride 10% Syr 10 mL 2 GM IVP (11:25)
--- NOTE | 2022-05-31 11:39 | PC.PHAR ---
PT STATES SHE TAKES CARE OF HER OWN MEDICATIONS-PT STATES SHE NO LONGER TAKES RENAPLEX D FILLED 02/18/22 90D/S-BUMEX 2MG 2 TABS BID FILLED 04/07/22 30D/S SEVELAMER 800MG 3 TABS TID WITH MEALS AND ONE TAB WITH SNACKS-PT STATES THE DOXAZOSIN 8MG BID WAS DCED BUT STATES SHE RESTARTED TAKING YESTERDAY RX FILLED 05/04/22 30D/S-NOTES ARE MADE IN THE PHARMACY COMMENTS
[2022-05-31 11:45] LABS: INR 1.37 (0.8-1.2)
--- NOTE | 2022-05-31 15:39 | DCPLANNER ---
Addendum entered by Linda Valentino 07/08/22 16:13: Patient had a follow up appointment scheduled with Infectious Disease - patient did not attend appointment. Addendum entered by Linda Valentino 06/08/22 11:30: Patient has a follow up appointment scheduled for , June 16, 2022 at 9:[address] Larkin at Infectious Disease. Clinic will call patient with appointment information. Original Note: administrative manager had message to schedule a follow up appointment for patient with infectious disease. administrative manager sent patients information to the front office staff at infectious disease. Patients information will be printed and reviewed. Clinic will call patient with appointment information.
== END 2022-05-31 14:53 | disposition home or self-care (01) ==
PROVIDERS: Emergency Provider Family Medicine; PCP Family Medicine
DX: A04.72 Enterocolitis due to Clostridium difficile, not specified as recurrent (principal); E87.5 Hyperkalemia; I13.2 Hypertensive heart and chronic kidney disease with heart failure and with stage 5 chronic kidney disease, or end stage renal disease; E11.22 Type 2 diabetes mellitus with diabetic chronic kidney disease; N18.6 End stage renal disease; I50.9 Heart failure, unspecified; I25.10 Atherosclerotic heart disease of native coronary artery without angina pectoris; E78.5 Hyperlipidemia, unspecified; Z89.512 Acquired absence of left leg below knee; Z79.02 Long term (current) use of antithrombotics/antiplatelets
CPT/HCPCS: 74176; 80053; 85025; 85610; 87493; 96361; 96374; 99285; J2270; J2405; J3490; J7030

== ENCOUNTER 2022-07-21 07:58 | Inpatient (IN) | payer MEDICARE, MEDICAID, SELFPAY ==
[2022-07-21] VITALS (8 sets, daily range): BP systolic 121–154; BP diastolic 68–94; PULSE 69–102; RESP 16–20; TEMP 36.7–37.8; O2SAT 92–98; BMI 40.7
--- NOTE | 2022-07-21 08:15 | ECG_ITS ---
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 Measurements Intervals [place] Rate: 77 P: 52 VT: 198 QRS: -39 QRSD: 132 T: 118 QT: 402 QTc: 456 Interpretive Statements SINUS RHYTHM LEFT ATRIAL ENLARGEMENT [-0.15mV P-WAVE IN V1/V2] LEFT AXIS DEVIATION [QRS AXIS < -30] INTRAVENTRICULAR CONDUCTION DELAY [130+ ms QRS DURATION] LEFT VENTRICULAR HYPERTROPHY AND ST-T CHANGE [VOLTAGE CRITERIA PLUS ST/T ABNORMALITY] POSSIBLE SEPTAL MYOCARDIAL INFARCTION , PROBABLY OLD [30 ms Q WAVE IN V1/V2] Compared to ECG 05/20/2022 11:36:26 Intraventricular conduction delay now present Left ventricular hypertrophy now present ST (T wave) deviation now present First degree AV block no longer present Left bundle-branch block no longer present Electronically Signed On 07-22-2022 14:33:39 CDT by Fly Long M.D. [email or web address]
--- NOTE | 2022-07-21 08:17 | ED_ITS ---
HPI - Nausea/Vomiting/Diarrhea General: Chief complaint: Nausea/Vomiting/Diarrhea Stated complaint: fever, n/v/d Time Seen by Provider: 07/21/22 08:00 Source: patient Mode of arrival: ambulatory History of Present Illness: 61-year-old female presents to the emergency room with complaints of nausea vomiting and diarrhea. Patient is on hemodialysis. She gets dialysis Tuesdays and Saturdays. She has not had dialysis f or 5 days that she missed her dialysis 2 days ago and is due today. She also has noted a fever that began a couple of days ago. She has a chronic baseline cough that is unchanged for the most part. She does still make some urine she denies any dysuria urgency or frequency she has a left leg amputation and significant amount of edema in the right leg but she states edema in the right leg is unchanged it is mildly reddened. She was in the emergency room last month and was treated for C. difficile colitis with p.o. medications. MD elicited complaint: nausea and vomiting Pertinent past history: other (End-stage renal disease, recent C. difficile) Onset (ago): day(s) Associated nausea: No Location of pain: None Radiation: diffuse Severity: moderate Quality: cramping Exacerbating factors: none Relieving factors: none Associated symtoms: Reports anxiety; Denies altered mental status, bloating, change in vision, chest pain, cough, diaphoresis, decreased urine output, dizziness, dysuria, epistaxis, fatigue, fecal incontinence, fevers/chills, headache(s), anorexia, malaise, myalgias, nausea, numbness, palpitations, rash, short of breath, syncope, tenesmus, tinnitus or weakness Review of Systems Const: Denies: fever(s), chills, fatigue, malaise or diaphoresis Eyes: Denies: change in vision ENMT: Denies: tinnitus or epistaxis Card: Reports: edema; Denies: chest pain, palpitations or syncope GI: Reports: vomiting; Denies: abdominal pain, nausea, bloating or fecal incontinence : Denies: flank pain, difficulty voiding, dysuria, urinary frequency or u rinary urgency Neuro: Denies: headache(s) or dizziness Psych: Reports: anxiety PFSH ED PFSH: Medical History Anemia Chronic kidney disease and blood loss, has previously required transfusion Anemia Aortic valve endocarditis (~04/2020) C. difficile diarrhea CAD (coronary artery disease) Charcot's joint of foot in type 2 diabetes mellitus Congestive heart failure systolic Diabetes Diabetes mellitus type 2, not on medications, HbA1c 10/2021 5.2 Diabetic ulcer of left foot Diabetic ulcer of right foot Diarrhea Difficult intravenous access Epidural abscess (~2017) ESRD (end stage renal disease) previously on peritoneal dialysis currently on hemodialysis History of colon polyps History of MRSA infection spinal abscess 2017 Hyperlipidemia Hypertension Hypothyroidism Ischemic cardiomyopathy EF 05/2020 65% >> 06/2021 15%, 09/2021 25%> 40% (02/01) 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 Severe proximal to mid LAD stenosis. Severe ostial diagonal artery stenosis. 2. Successful revascularization of the LAD with orbital arthrectomy and PCI with JD x 2 including bifurcation stenting of mid LAD and diagonal artery using mini-crush technique (2 stents placed in LAD and 1 in diagonal artery). History of cholecystectomy History of colonoscopy with polypectomy 2017 History of left below knee amputation History of lumbar surgery Due to epidural abscess in March 2018 Peritoneal dialysis catheter in place removal 05/20/21 S/P hemodialysis catheter insertion multiple Family History Mother Cancer Uterine and breast cancer Father Diabetes Other CAD (coronary artery disease) Social History Smoking and tobacco status: never smoked Alcohol intake: current Alcohol intake frequency: holidays/special occasions only Marital status: Physical Exam Const: EXAM LIMITATIONS: no altered mental status GENERAL APPEARANCE: cooperative and comfortable ORIENTATION/CONSCIOUSNESS: Yes awake, Yes oriented to person, Yes oriented to place and Yes oriented to time HENMT: COMMON NORMALS: normocephalic, atraumatic and hearing grossly normal bilaterally HEAD & SCALP: normocephalic and atraumatic Lymph: LYMPHATIC: no lymphadenopathy noted and no lymphedema noted Resp: COMMON NORMALS: normal respiratory effort, No retractions, No use of accessory muscles and clear to auscultation bilaterally AUSCULTATION: clear to auscultation bilaterally Cardio: COMMON NORMALS: regular rate, regular rhythm and No murmurs present (Cardio) RATE: regular rate RHYTHM: regular rhythm GI: COMMON NORMALS: No hepatosplenomegaly present AUSCULTATION: Yes normoactive bowel sounds PALPATION: Yes Tenderness to palpation present (GI) (Vague nonspecific seems more focused to the right upper quadrant), No Guarding due to palpation present (GI) and Yes No hepatosplenomegaly present Extremity: OTHER: Left below the knee amputation. Inguinal lymph nodes present on the right. Right lower leg mildly reddened erythematous no purulent drainage no abscess no open skin. Neuro: SENSORIUM/ORIENTATION: Yes oriented to person, Yes oriented to place and Yes oriented to time Skin: OTHER: Right foot ulcer with exposure of subcutaneous fat. Redness and erythema of the lower right leg no purulent drainage Course Vital Signs: Vital signs: Vital Signs Temperature 97.7 F 07/29/22 15:58 Pulse Rate 77 07/29/22 15:58 Respiratory Rate 16 07/29/22 15:58 Blood Pressure 148/79 07/29/22 15:58 Pulse Oximetry 99 07/29/22 15:58 Oxygen Delivery Me thod 07/29/22 15:58 Oxygen Flow Rate 2 07/29/22 00:00 MDM - Nausea/Vomiting/Diarrhea Medical Decision Making Sepsis due to cellulitis. End-stage renal disease chronic right foot ulcer with Charcot foot. Discussed with hospitalist admit Lab Data : 07/29/22 04:47 07/29/22 04:47 Radiology Impressions Chest X-Ray 07/21/22 10:05 Impression: No change from previous chest x-ray. Duplex Scan Lower Extremity Artery 07/22/22 08:40 IMPRESSION: 1. Right posterior tibial artery lack of color blood flow. 2. Subcutaneous edema in the lower extremity. 3. Biphasic to monophasic blood flow in the common femoral, superficial femoral, and popliteal arteries reflecting a degree of stenosis. KUB X-Ray 07/28/22 11:03 IMPRESSION: 1. No acute bowel dilatation or obstruction is seen. 2. Lumbar spine osteoarthritis Abdomen/Pelvis CT 07/29/22 11:44 IMPRESSION: Essentially no change since the previous examination without evidence of colitis. Laboratory Results WBC 16.8 10^3/uL (4.0-10.0) H 07/21/22 08:37 RBC 3.05 10^6/uL (4.1-5.3) L 07/21/22 08:37 Hgb 9.8 g/dL (11.5-15.3) L 07/21/22 08:37 Hct 31.1 % (37.0-47.0) L 07/21/22 08:37 MCV 102.0 fl (81-99) H 07/21/22 08:37 MCH 32.1 pg (28.0-34.0) 07/21/22 08:37 MCHC 31.5 g/dL (30.0-36.0) 07/21/22 08:37 RDW 15.9 % (12.1-15.1) H 07/21/22 08:37 Plt Count 164 10^3/cmm (130-400) 07/21/22 08:37 MPV 10.0 fL (7.4-10.4) 07/21/22 08:37 Neut % (Auto) 90.2 % 07/21/22 08:37 Lymph % (Auto) 1.4 % 07/21/22 08:37 [place] % (Auto) 4.2 % 07/21/22 08:37 Eos % (Auto) 0.4 % 07/21/22 08:37 Baso % (Auto) 0.3 % 07/21/22 08:37 Neut # (Auto) 15.12 10^3/uL (1.8-7.7) H 07/21/22 08:37 Lymph # (Auto) 0.2 10^3/uL (0.8-4.8) L 07/21/22 08:37 [place] # (Auto) 0.7 10^3/uL (0.2-0.9) 07/21/22 08:37 Eos # (Auto) 0.1 10^3/uL (0.0-0.8) 07/21/22 08:37 Baso # (Auto) 0.1 10^3/uL (0.0-0.1) 07/21/22 08:37 Nucleated RBC % (auto) 0 % 07/21/22 08:37 Nucleated RBCs # 0.0 /100WBC 07/21/22 08:37 ESR 46 mm/hr (0-15) H 07/21/22 08:37 Sodium 134 mmol/L (136-145) L 07/21/22 08:37 Potassium 5.0 mmol/L (3.5-5.1) 07/21/22 08:37 Chloride 98 mmol/L (98-107) 07/21/22 08:37 Carbon Dioxide 20 mmol/L (22-29) L 07/21/22 08:37 Anion Gap 21.0 (5-19) H 07/21/22 08:37 BUN 54 mg/dL (6-20) H 07/21/22 08:37 Creatinine 8.8 mg/dL (0.5-0.9) H* 07/21/22 08:37 GFR Calculation 4.6 mL/min (90-130) L 07/21/22 08:37 Glucose 99 mg/dL (65-115) 07/21/22 08:37 Calculated Osmolality 293 mOsm/kg (285-295) 07/21/22 08:37 Lactic Acid 1.3 mmol/L (0.5-2.2) 07/21/22 08:37 Calcium 8.8 mg/dL (8.5-10.5) 07/21/22 08:37 Phosphorus 6.2 mg/dL (2.5-4.5) H 07/21/22 08:37 Magnesium 2.0 mg/dL (1.7-2.3) 07/21/22 08:37 Total Bilirubin 0.8 mg/dL (0.15-1.2) 07/21/22 08:37 AST 16 U/L (0-32) 07/21/22 08:37 ALT 10 U/L (0-33) 07/21/22 08:37 Alkaline Phosphatase 262 U/L (35-105) H 07/21/22 08:37 C-Reactive Protein 41.4 mg/L (0.0-4.9) H 07/21/22 08:37 Total Protein 7.8 g/dL (6.6-8.7) 07/21/22 08:37 Albumin 3.2 g/dL (3.5-5.2) L 07/21/22 08:37 Globulin 4.6 g/dL (1.3-4.6) 07/21/22 08:37 Vitamin B12 637 pg/mL (232-1245) 07/21/22 08:37 Folate 7.7 ng/mL (4.8-37.3) 07/21/22 08:37 Procalcitonin 29.52 ng/mL (0-0.5) H 07/21/22 08:37 TSH 2.44 uIU/mL (0.27-4.20) 07/21/22 08:37 Urine Color Yellow (Yellow) 07/21/22 10:20 Urine Appearance Clear (CLEAR) 07/21/22 10:20 Urine pH 6.5 (5-7) 07/21/22 10:20 Ur Specific [place] 1.005 (1.005-1.030) 07/21/22 10:20 Urine Protein 3+ (Negative) H 07/21/22 10:20 Urine Glucose (UA) 1+ (Normal) H 07/21/22 10:20 Urine Ketones 1+ (Negative) H 07/21/22 10:20 Urine Blood 2+ (Negative) H 07/21/22 10:20 Urine Nitrate Negative (Negative) 07/21/22 10:20 Urine Bilirubin Neg (Negative) 07/21/22 10:20 Urine Urobilinogen Norm mg/dL (Negative) 07/21/22 10:20 Ur Leukocyte Esterase Trace (Negative) H 07/21/22 10:20 Urine RBC 0-4 /hpf (0-2) H 07/21/22 10:20 Urine WBC 0-4 /hpf (0-5) H 07/21/22 10:20 Ur Squamous Epith Cells 5-10 /hpf (0-5) H 07/21/22 10:20 Amorphous Sediment Not Reportable 07/21/22 10:20 Urine Bacteria Trace /hpf (NONE) 07/21/22 10:20 Hep Bs Antigen Non-reactive (Nonreactive) 07/21/22 08:37 Hep Bs Antibody 85.5 (11.5-1000) 07/21/22 08:37 Hepatitis C Antibody Non-reactive (Nonreactive) 07/21/22 08:37 Discharge Plan Discharge Patient Disposition: Admitted As Inpatient Admit Provider: Angel Baez Clinical Impression: Sepsis, Cellulitis, Decubitus ulcer of right heel, stage 4, End-stage renal disease on hemodialysis, Charcot's joint of right foot Condition: Stable Discharge Diet: Cardiac Discharge Activity: Increase activity as tolerated Coding Level of Care Code ED Furniture Repair Technician for Gregorio Thompson Exam Problem Focused
[2022-07-21 08:47] LABS: Basophils # 0.1 10^3/uL (0.0-0.1); Basophils % 0.3 %; Eosinophils # 0.1 10^3/uL (0.0-0.8); Eosinophils % 0.4 %; Hematocrit 31.1 % (37.0-47.0); Hemoglobin 9.8 g/dL (11.5-15.3); Lymphocytes # 0.2 10^3/uL (0.8-4.8); Lymphocytes % 1.4 %; Mean Corpuscular HGB Conc 31.5 g/dL (30.0-36.0); Mean Corpuscular Hemoglobin 32.1 pg (28.0-34.0); Monocytes # 0.7 10^3/uL (0.2-0.9); Monocytes % 4.2 %; Neutrophils # 15.12 10^3/uL (1.8-7.7); Neutrophils % 90.2 %; Nucleated Red Blood Cells % 0 %; Platelet Count 164 10^3/cmm (130-400); Red Blood Count 3.05 10^6/uL (4.1-5.3); Red Cell Distribution Width 15.9 % (12.1-15.1); White Blood Count 16.8 10^3/uL (4.0-10.0)
--- NOTE | 2022-07-21 08:54 | CT_ITS ---
WS: [id number] CT ABDOMEN PELVIS TECHNIQUE: Noncontrast CT of the abdomen and pelvis with coronal and sagittal reformatted images. CLINICAL INFORMATION: Abdominal pain COMPARISON: CT May 31, 2022 DLP: 1255.[address] scans at [facility] use at least one of these dose optimization techniques: automated e xposure control; mA and/or kV adjustment per patient size (includes targeted exams where dose is matc hed to clinical indication); or iterative reconstruction. FINDINGS: Perisplenic and perihepatic ascites. Diffuse mesenteric edema. Diffuse body wall anasarca. Moderate l ower abdominal and pelvic ascites. Dense vascular calcification. Normal caliber abdominal aorta. Efrain c stents. Small LEFT pleural effusion with patchy infiltrates in the LEFT lower lobe. This is similar to previo us. Small LEFT pleural effusion with enhancing pleura improved from previous. Trace RIGHT pleural flu id. Prior cholecystectomy. Mild hepatomegaly. Fatty atrophy of the pancreas. Adrenal glands are normal. N o hydronephrosis in either kidney. Bilateral renal cortical atrophy. Enlarged lymph nodes periaortic, common iliac, internal iliac, and inguinal lymph nodes unchanged from previous. There are nonspecifi c but may be reactive and stable compared to May 31, 2022. A few air-fluid levels in normal caliber small and large bowel. No evidence of high-grade obstruction . Fluid level in the stomach. CT/CT abdomen pelvis wo con [id number] IMPRESSION: 1. Small LEFT pleural effusion with small empyema and pleural enhancement. Thi s is improved compared to May 31, 2022. Persistent pneumonia in the LEFT lower lobe. Trace RIGHT pleural fluid. 2. Perihepatic and perisplenic ascites with mild to moderate lower abdominal a nd pelvic ascites slightly increased from previous. 3. Normal caliber small and large bowel with a few air-fluid levels. No high-g rade obstruction. Air-fluid level in the stomach. 4. Enlarged lymph nodes periaortic, common iliac, internal iliac, and inguinal lymph nodes unchanged from previous. There are nonspecific but may be reactive and stable compared to May 31, 2022. 5. Moderate to severe central canal stenosis L4-L5 with disc osteophyte protru cindy and prior laminectomy is unchanged from previous. 6. No other remarkable changes compared to previous.
[2022-07-21 09:25] LABS: Alanine Aminotransferase 10 U/L (0-33); Albumin Level 3.2 g/dL (3.5-5.2); Alkaline Phosphatase 262 U/L (35-105); Aspartate Amino Transferase 16 U/L (0-32); Blood Urea Nitrogen 54 mg/dL (6-20); Calcium 8.8 mg/dL (8.5-10.5); Carbon Dioxide 20 mmol/L (22-29); Chloride 98 mmol/L (98-107); Globulin 4.6 g/dL (1.3-4.6); Glomerular Filtration Rate 4.6 mL/min (90-130); Glucose 99 mg/dL (65-115); Lactic Sepsis W/Reflex 1.3 mmol/L (0.5-2.2); Osmolality Calculated 293 mOsm/kg (285-295); Phosphorus 6.2 mg/dL (2.5-4.5); Sodium 134 mmol/L (136-145); Total Bilirubin 0.8 mg/dL (0.15-1.2); Total Protein 7.8 g/dL (6.6-8.7)
--- NOTE | 2022-07-21 10:05 | XR_ITS ---
WS: [id number] Portable AP upright chest, 07/21/2022 Clinical Data: dyspnea/cough Comparison: Portable chest, 05/20/2022. Findings: The patchy opacity in the left lower lobe has not changed. Again this is a combination of a telectasis, scarring and loculated effusion. The heart is at the upper limits of normal. The right obdulia ng is clear. No acute pneumonia or pneumothorax is seen. There is a dialysis catheter entering the [facility] internal jugular vein and ending at the cavoatrial junction. XR/XR chest 1V portable [id number] Impression: No change from previous chest x-ray.
--- NOTE | 2022-07-21 10:28 | PM.CONSULT ---
Providers/Reason For Consult Consulting Physician/Specialty*: dex dowd md / telenephrology Reason for Consult*: ESRD care Requesting Physician: Dr Vargas Primary Care Provider: Karen Bear MD History of Present Illness History of Present Illness Alesia Shaw is a 61 year old female ESRD was on PD- converted to HD T, Th, sat. CAD, ischemic CM ( EF 25%), htn, dm, hypothyroidism, h/o spinal abscess w/ MRSA in 2017, MSSA AV endocarditis in 04/2020, left BKA. h/o multiple pleural effusions and thoracentesis, and multiple DM/PVD related cellulitis of legs. Pt here w/ weakness, nausea, diarrhea, fevers, chills. h/o c diff colitis in june 2022. pt missed hd on 07/19/22- renal called for ESRD care Review of Systems Narrative: weak, diarrhea, abd pain, sob. Medications/Allergies Home Medications Medication Instructions Recorded Confirmed Last Taken Type Stump Abstract Checker #1 ea 01/12/21 05/31/22 07/20/21 Rx carvedilol 25 mg tablet (Coreg) 25 mg PO BID 05/19/21 05/31/22 05/31/22 07:00 History nitroglycerin 0.4 mg sublingual 0.4 mg sublingual Q5M PRN Chest 06/22/21 05/31/22 07/20/21 Rx tablet Pain 30 days #30 tabs gentamicin 0.1 % topical cream 1 applic topical TID PRN Rash 03/10/22 05/31/22 Unknown History nystatin 100,000 unit/gram topical 1 applic topical BID PRN Rash 03/10/22 05/31/22 Unknown History cream furosemide 80 mg tablet (Lasix) 80 mg PO BID #0 tabs 05/13/22 05/31/22 05/29/22 Rx ondansetron HCl 8 mg tablet 8 mg PO Q6H PRN Nausea 05/20/22 05/31/22 Unknown History Bio 360 Caps 1 cap PO DAILY 05/31/22 05/31/22 05/30/22 History aspirin 81 mg chewable tablet 81 mg PO BEDTIME 05/31/22 05/31/22 05/30/22 History (Children's Aspirin) calcium carbonate 300 mg (750 mg) 2 tab PO PRN 05/31/22 05/31/22 Unknown History chewable tablet (Tums) clopidogrel 75 mg tablet 75 mg PO BEDTIME 05/31/22 05/31/22 05/30/22 History doxazosin 8 mg tablet 8 mg PO BID 05/31/22 05/31/22 05/31/22 History promethazine 25 mg tablet 25 mg PO Q6H PRN Nausea And 05/31/22 05/31/22 Unknown History Vomiting psyllium husk 3.4 gram/5.4 gram 1 tbsp PO DAILY 05/31/22 05/31/22 05/30/22 History oral powder (Metamucil) vancomycin 50 mg/mL oral solution See Rx Instructions .Route .COMPLEX 05/31/22 05/31/22 05/30/22 History hydralazine 50 mg tablet 50 mg PO BID #60 tabs 07/11/22 Unknown Rx levothyroxine 150 mcg tablet 150 mcg PO QAM #90 tabs 07/15/22 Unknown Rx (Euthyrox) Allergies Allergy/AdvReac Type Severity Reaction Status Date / Time Iodinated Contrast Media Allergy ALGY-Hives Verified 07/07/22 13:44 PFSH Acute PFSH: Medical History (Updated 07/21/22 @ 10:35 by Irwin Dowd MD) Anemia Chronic kidney disease and blood loss, has previously required transfusion Anemia Aortic valve endocarditis (~04/2020) CAD (coronary artery disease) Charcot's joint of foot in type 2 diabetes mellitus Congestive heart failure systolic Diabetes Diabetes mellitus type 2, not on medications, HbA1c 10/2021 5.2 Diabetic ulcer of left foot Diabetic ulcer of right foot Diarrhea Difficult intravenous access Epidural abscess (~2017) ESRD (end stage renal disease) previously on peritoneal dialysis currently on hemodialysis History of colon polyps History of MRSA infection spinal abscess 2017 Hyperlipidemia Hypertension Hypothyroidism Ischemic cardiomyopathy EF 05/2020 65% >> 06/2021 15%, 09/2021 25% 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 Severe proximal to mid LAD stenosis. Severe ostial diagonal artery stenosis. 2. Successful revascularization of the LAD with orbital arthrectomy and PCI with JD x 2 including bifurcation stenting of mid LAD and diagonal artery using mini-crush technique (2 stents placed in LAD and 1 in diagonal artery). History of cholecystectomy History of colonoscopy with polypectomy 2017 History of left below knee amputation History of lumbar surgery Due to epidural abscess in March 2018 Peritoneal dialysis catheter in place removal 05/20/21 S/P hemodialysis catheter insertion multiple Family History Mother Cancer Uterine and breast cancer Father Diabetes Other CAD (coronary artery disease) Social History Smoking and tobacco status: never smoked Alcohol intake: current Alcohol intake frequency: holidays/special occasions only Marital status: Vitals/I&O/Wt Last Vital Signs Temp 100.1 F H 07/21/22 08:01 Pulse 88 07/21/22 08:46 Resp 18 07/21/22 08:46 BP 139/68 07/21/22 08:46 Pulse Ox 92 07/21/22 08:46 O2 Del Method 07/21/22 08:46 Physical Exam Narrative: febrile, uncomfortble, weak vs noted heent- nc/at, eomi, anicteric lungs crackles, dull rt side heart reg abd soft, nt, nd, + bs ext left BKA, rt min edema access Rt IJ PC neuro- a,a, o x 3 Data : 07/21/22 08:37 07/21/22 08:37 Micro: Microbiology 07/21/22 08:37 Blood Culture - Preliminary Blood SPECIMEN COLLECTED 07/21/22 08:40 Blood Culture - Preliminary Blood SPECIMEN COLLECTED A&P Assessment and plan (1) ESRD (end stage renal disease): 61 yr old female 1. ESRD - hd now 3.5 hrs, 2k, remove 2l 2. Leukocytosis and fevers- abx per medicine- also recent c diff 3. dm care per medicine 4. anemia - repeat iron syudies 5. renal bone mineral metabolism- phos binder seen and examined w/ RN and ER physician - telehealth visit -informed consent for HD and telehealth obtained from pt -time spent 50 min Status: Acute Plan as above Consult Attestations Medical Necessity Statement: per medicine Time Spent in Patient Care: Greater than 35 minutes (>than 50% of time spent in counselling and/or direct pt care on unit). Coding Level of Care Code Acute Manager Credit Collections for Chg Fwd Diagnoses ESRD (end stage renal disease) N18.6
[2022-07-21 11:00] LABS: Blood Urine 2+ (Negative); Glucose Urine UA 1+ (Normal); Ketones Urine 1+ (Negative); Nitrate Urine Negative (Negative); Protein Urine 3+ (Negative); Specific Gravity, Urine 1.005 (1.005-1.030); Urine Appearance Clear (CLEAR); Urine Color Yellow (Yellow); pH Urine 6.5 (5-7)
[2022-07-21 11:01] LABS: Add Urine Culture? No; Add Urine Microscopic? YES; Bacteria Urine TRACE /hpf; Bilirubin Urine Neg (Negative); Leukocyte Esterase Urine Trace (Negative); RBC Urine 0-4 /hpf (0-2); Urobilinogen Urine Norm (Negative); WBC Urine 0-4 /hpf (0-5)
[2022-07-21 11:17] LABS: Hepatitis B Surface AB 85.5 (11.5-1000); Hepatitis B Surface Antigen Non-Reactive (Nonreactive); Hepatitis C Virus Antibody Non-Reactive (Nonreactive)
[2022-07-21] MEDS: sevelamer 800 mg Tablet 1600 MG PO (11:27)
[2022-07-21] MEDS: b-complex-vitamin c Tablet 1 EACH PO (11:27)
[2022-07-21 13:08] LABS: C Reactive Protein 41.4 mg/L (0.0-4.9); Thyroid Stimulating Hormone 2.44 uIU/mL (0.27-4.20)
--- NOTE | 2022-07-21 13:33 | PM.HP ---
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 difficile on oral vancomycin. Patient presented to the ER today because of worsening diarrhea, nausea and vomiting over the last 1 month but more so over last 1 week associated with high-grade fevers since last 1 week going as high as 103 overnight last night. Patient states because she has been feeling worse she has missed her last 2 sessions of dialysis. She states her last dialysis session was last Monday which is 07/16. She complains of generalized myalgias. She still has a tunneled catheter present in her right hemithorax to which she gets dialysis. [facility] has not been approved for AV fistula for now. Review of Systems General: Reports: 10 or more systems reviewed and unremarkable except in HPI and below Const: Denies: fever(s), chills, body aches, change in appetite, change in weight, malaise, night sweats, diaphoresis, change in sleep pattern, daytime sleepiness or snoring Eyes: Denies: change in vision, blurry vision, photophobia, eye discomfort or eye discharge ENMT: Denies: throat pain, enlarged tonsils, hoarseness, mouth pain, oral sores, dry mouth, tinnitus, nasal congestion or post nasal drip Card: Denies: chest pain, palpitations, irregular heart rhythm, edema, swelling of feet/ankles, lightheadedness, syncope, pre-syncope, dyspnea on exertion, orthopnea, leg pain with exertion or acrocyanosis Resp: Denies: dyspnea, productive cough, non-productive cough, wheezing, stridor, pain on inspiration, change in phlegm color, hemoptysis or chest congestion GI: Denies: abdominal pain, nausea, vomiting, hematemesis, coffee ground emesis, dysphagia, heartburn, diarrhea, constipation, bloating, GI cramping, change in bowel habits, pain on defecation, hematochezia or melena : Denies: flank pain, dysuria, urinary frequency, urinary urgency, urinary hesitancy, nocturia or hematuria Musc: Denies: neck pain, back pain, extremity pain, joint pain, joint swelling, joint redness, joint stiffness or limited range of motion Neuro: Denies: headache(s), numbness in extremities, weakness in extremities, sensory changes, lack of coordination, difficulty walking, frequent falls, dizziness, vertigo, confusion, Slurred speech present, difficulty communicating thoughts or seizure-like activity Psych: Denies: anxiety, depression, mood swings, panic attacks, hopelessness or irritability Endo: Denies: polyuria, polydipsia, tired all the time, cold intolerance, excessive sweating, flushing or heat intolerance Jimmy/Lymph: Denies: easy bruising or easy bleeding All/Imm: Denies: tongue swelling, facial swelling or acute wheezing Medications/Allergies Home Medications Medication Instructions Recorded Confirmed Last Taken Type Stump Tower Director #1 ea 01/12/21 07/21/22 07/20/21 Rx carvedilol 25 mg tablet (Coreg) 25 mg PO BID 05/19/21 07/21/22 05/31/22 07:00 History nitroglycerin 0.4 mg sublingual 0.4 mg sublingual Q5M PRN Chest 06/22/21 07/21/22 07/20/21 Rx tablet Pain 30 days #30 tabs gentamicin 0.1 % topical cream 1 applic topical TID PRN Rash 03/10/22 07/21/22 Unknown History nystatin 100,000 unit/gram topical 1 applic topical BID PRN Rash 03/10/22 07/21/22 Unknown History cream Bio 360 Caps 1 cap PO DAILY 05/31/22 07/21/22 05/30/22 History aspirin 81 mg chewable tablet 81 mg PO BEDTIME 05/31/22 07/21/22 05/30/22 History (Children's Aspirin) calcium carbonate 300 mg (750 mg) 2 tab PO PRN 05/31/22 07/21/22 Unknown History chewable tablet (Tums) clopidogrel 75 mg tablet 75 mg PO BEDTIME 05/31/22 07/21/22 05/30/22 History doxazosin 8 mg tablet 8 mg PO BID 05/31/22 07/21/22 05/31/22 History promethazine 25 mg tablet 25 mg PO Q6H PRN Nausea And 05/31/22 07/21/22 Unknown History Vomiting hydralazine 50 mg tablet 50 mg PO BID #60 tabs 07/11/22 07/21/22 Unknown Rx levothyroxine 150 mcg tablet 150 mcg PO QAM #90 tabs 07/15/22 07/21/22 Unknown Rx (Euthyrox) furosemide 80 mg tablet (Lasix) 120 mg PO BID 07/21/22 07/21/22 Unknown History Allergies Allergy/AdvReac Type Severity Reaction Status Date / Time Iodinated Contrast Media Allergy ALGY-Hives Verified 07/21/22 13:06 PFSH Acute PFSH: Medical History (Updated 07/21/22 @ 13:45 by Angel Baez MD) Anemia Chronic kidney disease and blood loss, has previously required transfusion Anemia Aortic valve endocarditis (~04/2020) C. difficile diarrhea CAD (coronary artery disease) Charcot's joint of foot in type 2 diabetes mellitus Congestive heart failure systolic Diabetes Diabetes mellitus type 2, not on medications, HbA1c 10/2021 5.2 Diabetic ulcer of left foot Diabetic ulcer of right foot Diarrhea Difficult intravenous access Epidural abscess (~2017) ESRD (end stage renal disease) previously on peritoneal dialysis currently on hemodialysis History of colon polyps History of MRSA infection spinal abscess 2017 Hyperlipidemia Hypertension Hypothyroidism Ischemic cardiomyopathy EF 05/2020 65% >> 06/2021 15%, 09/2021 25%> 40% (02/01) 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 Severe proximal to mid LAD stenosis. Severe ostial diagonal artery stenosis. 2. Successful revascularization of the LAD with orbital arthrectomy and PCI with JD x 2 including bifurcation stenting of mid LAD and diagonal artery using mini-crush technique (2 stents placed in LAD and 1 in diagonal artery). History of cholecystectomy History of colonoscopy with polypectomy 2017 History of left below knee amputation History of lumbar surgery Due to epidural abscess in March 2018 Peritoneal dialysis catheter in place removal 05/20/21 S/P hemodialysis catheter insertion multiple Family History Mother Cancer Uterine and breast cancer Father Diabetes Other CAD (coronary artery disease) Social History Smoking and tobacco status: never smoked Alcohol intake: current Alcohol intake frequency: holidays/special occasions only Marital status: Vitals/I&O/Wt Last Vital Signs Temp 100.1 F H 07/21/22 08:01 Pulse 102 H 07/21/22 12:20 Resp 16 07/21/22 13:26 BP 144/81 07/21/22 13:26 Pulse Ox 95 07/21/22 13:26 O2 Del Method 07/21/22 12:20 O2 Flow Rate 2 07/21/22 12:20 07/20/22 07/21/22 07/21/22 22:59 06:59 14:59 Intake Total 50 / 50 Balance 50 / 50 Physical Exam Narrative: General: No acute distress, AO x3 HEENT: PERRLA, pupils bilaterally equal and reactive Chest: Normal vesicular breath sounds, no added sounds, equal good air entry bilaterally CVS: S1-S2 regular, no murmurs, no tachycardia, no gallops, no rubs Abdomen: Soft, mild tenderness in right upper quadrant, Zazueta sign negative, no organomegaly, bowel sounds present Neuro: No focal deficits, no facial deformity, AO x3, power 5/5 in all limbs Extremities: Left BKA, right lymphedema present, Skin warm, moist to touch, open pressure he ulcer present on the right side with pink base, surrounding skin whitish in color with mild white-colored base without any fluctuance. Data : 07/21/22 08:37 07/21/22 08:37 Micro: Microbiology 07/21/22 12:30 Blood Culture - Preliminary Blood SPECIMEN COLLECTED 07/21/22 08:37 Blood Culture - Preliminary Blood SPECIMEN COLLECTED 07/21/22 08:40 Blood Culture - Preliminary Blood SPECIMEN COLLECTED A&P Assessment and plan (1) Sepsis: Ruled in with fever, leukocytosis with possible source of cellulitis versus diarrhea Status: Acute (2) Cellulitis of right lower limb: Status: Acute (3) C. difficile diarrhea: Status: Acute (4) Non-pressure chronic ulcer of other part of right foot with fat layer exposed: Status: Chronic (5) Charcot's joint, right ankle and foot: Status: Chronic (6) Lymphedema: Status: Chronic (7) ESRD (end stage renal disease): Status: Acute (8) Protein-energy malnutrition: Status: Chronic Plan 61-year-old female with past medical history of endocarditis, spinal abscess, osteomyelitis needing to be left BKA, history of MRSA and MSSA bacteremia, end-stage renal disease patient on hemodialysis, recent C. difficile presents with fever, ongoing worsening diarrhea for last 1 week and missing dialysis for last 2 sessions along with open pressure heel ulcer on the right foot. Sepsis: As above. Source could be secondary to cellulitis of the right calf versus C. difficile colitis. Less likely right foot osteomyelitis. Check blood culture, urinalysis, urine culture, stool studies to rule out C. difficile. For now start on vancomycin IV, Zosyn along with oral vancomycin 250 mg 4 times daily. We will de-escalate antibiotics as per culture results. CRP mildly elevated. Check right foot CT scan in setting of history of Charcot's foot. There is concern of worsening ascites. Patient has history of SBP in setting of peritoneal dialysis in the past with most recently in May 2021. Will request for ultrasound-guided paracentesis to rule out SBP. Currently on room air. COVID-19 PCR checked in the ER. End-stage renal disease on hemodialysis: Missed dialysis sessions Nephrology recommendations appreciated. Dialysis accordingly. Hypertension: Goal blood pressure less than 140/90 mmHg. Continue multiple home oral medications. Will uptitrate as per goals. History of ischemic cardiomyopathy: Most recent EF 40% History of CAD: Post PCI. No active chest pain. Continue with home dose of aspirin, Coreg, Plavix. Check lipid panel. History of type 2 diabetes mellitus: Controlled. Last A1c 5.2. Repeat A1c. Hold off on insulin sliding scale Analgesia: Tylenol as needed Glycemic control: Not needed. Repeat A1c. Nutrition: Renal dialysis diet CODE STATUS: Full code PUD prophylaxis: Famotidine DVT prophylaxis: Heparin 5000 every 12 hourly Discharge planning: Home with caregiver once medically cleared [facility]mit to [facility]. This documentation was created by [email or web address] coverstitch elastic attacher software. Every effort was made to ensure accuracy of coverstitch elastic attacher. Any obvious errors or omissions should be clarified with the author of the document. Attestations Medical Necessity Statement*: Hospitalization for more than 2 midnights for management of sepsis secondary cellulitis, recent C. difficile colitis, diarrhea, end-stage renal disease on hemodialysis Time Spent in Patient Care: Greater than 35 minutes Coding Level of Care Code Acute Plastic Surgery Technician for [facility] Fwd Diagnoses Sepsis A41.9 Cellulitis of right lower limb L03.115 C. difficile diarrhea A04.72 Non-pressure chronic ulcer of other part of right foot with fat layer exposed L97.512 Charcot's joint, right ankle and foot M14.671 Lymphedema I89.0 ESRD (end stage renal disease) N18.6 Protein-energy malnutrition E46
[2022-07-21 13:44] LABS: Adenovirus Not Detected (NOT DETECT); Chlamydia Pneumoniae Not Detected (NOT DETECT); Coronavirus 229E,HKU1,NL63,OC4 Not Detected (NOT DETECT); Human Metapneumovirus Not Detected (NOT DETECT); Human Rhinovirus/Enterovirus Not Detected (NOT DETECT); Influenza A Not Detected (NOT DETECT); Influenza A H1 Not Detected (NOT DETECT); Influenza A H1-2009 Not Detected (NOT DETECT); Influenza A H3 Not Detected (NOT DETECT); Influenza B Not Detected (NOT DETECT); Mycoplasma Pneumoniae Not Detected (NOT DETECT); Parainfluenza Virus Type 1 Not Detected (NOT DETECT); Parainfluenza Virus Type 2 Not Detected (NOT DETECT); Parainfluenza Virus Type 3 Not Detected (NOT DETECT); Parainfluenza Virus Type 4 Not Detected (NOT DETECT); Respiratory Syncytial Virus A Not Detected (NOT DETECT); Respiratory Syncytial Virus B Not Detected (NOT DETECT); SARS-COV-2 Not Detected (NOT DETECT)
--- NOTE | 2022-07-21 13:48 | CT_ITS ---
WS: [id number] NONCONTRAST CT OF THE RIGHT FOOT TECHNIQUE: Noncontrast CT RIGHT foot with coronal and sagittal reformatted images. CLINICAL INFORMATION: charcot's possible osteo COMPARISON: None. DLP: 341.[address] scans at [facility] use at least one of these dose optimization techniques: automated e xposure control; mA and/or kV adjustment per patient size (includes targeted exams where dose is matc hed to clinical indication); or iterative reconstruction. FINDINGS: Area of soft tissue ulceration overlying the dorsal calcaneus. Fragmentation of the underly ing plantar calcaneus medially suspicious for osteomyelitis. Small adjacent fluid collection suspici ous for small abscess/phlegmon extending along the medial hindfoot. Diffuse soft tissue edema with skin thickening lower leg and ankle compatible with cellulitis. Ankle joint effusion with synovial thickening suspicious for septic arthritis. This is similar to previous. Chronic deformity and disruption of the tibiotalar and talocalcaneal joints compatible with Charcot joint. Destructive changes with sclerosis involving the anterior aspect of the talus similar to 2021 compatible with Charcot joint. Chronic destructive changes involving the distal fibula. Subchondral cystic change with degenerative arthritis involving the tarsal bones and TMT joint. Metatarsals appear intact. Degenerative arthritis involving the TMT joints. Visualized phalanges appear normal. Subchondral cystic changes involving the tarsal bones. Osteopenia. Vascular calcification. IMPRESSION: 1. Area of ulceration involving the dorsal plantar hindfoot overlying the calcaneus medially. Associ ated skin thickening with small associated fluid collection consistent with abscess/phlegmon. This me asures approximately 1.7 x 0.9 x 1.5 CM. 2. Destructive and erosive changes involving the underlying plantar calcaneus medially with fragment ation suspicious for osteomyelitis. 3. Chronic changes of Charcot joint with bony dislocation with areas of sclerosis appears relatively stable compared to December 28, 2021 with tibiotalar and talocalcaneal dislocation with flattening. 4. Extensive cellulitis and skin thickening throughout the visualized soft tissues. 5. Ankle joint effusion with thickening and induration involving the deep soft tissues compatible wi th cellulitis suspicious for septic joint. This is similar in appearance to December 28, 2021 6. Dense vascular calcification. 7. Osteopenia.
[2022-07-21 13:54] LABS: Erythrocyte Sedimentation Rate 46 mm/hr (0-15)
[2022-07-21 14:23] LABS: Procalcitonin 29.52 ng/mL (0-0.5); Vitamin B12 637 pg/mL (232-1245)
[2022-07-21] MEDS: heparin 5,000 unit/mL INJ 1 mL 5000 UNIT SUBCUT (16:21)
[2022-07-21] MEDS: acetaminophen 325 mg Tablet 650 MG PO (16:25)
[2022-07-21] MEDS: heparin, porcine 1,000 unit/mL INJ 10 mL HE (16:32)
--- NOTE | 2022-07-21 17:29 | P.CONIM_ITS ---
Providers/Reason For Consult Consulting Physician/Specialty*: Curtis Santana D.P.M. Reason for Consult*: Cellulitis right lower extremity, diabetic foot ulcer right central heel with concern for abscess, radiographic concern for joint effusion versus septic joint to the right ankle. Attending Physician: Angel Baez MD Primary Care Provider: Karen Bear MD History of Present Illness History of Present Illness Alesia Shaw is a 61 year old female present to the emergency department today with complaints of malaise, nausea, vomiting and diarrhea. Patient has had a chronic ulcer to her right heel, over the past few days has experienced increased swelling, redness and warmth to her right leg. Patient is forthcoming and expresses interest and below-knee amputation to the right lower extremity. She has a history of left BKA done December 26, 2020 secondary to Charcot and osteomyelitis. High comorbidities with history of CKD w/dialysis 3X weekly, diabetes type 2, history of PAD with significant calcifications of the lower extremity arteries, lymphedema, extensive Charcot to the right foot and ankle, history of osteomyelitis, endocarditis with MSSA, hypothyroid, history of C. difficile. She has a very supportive who is bedside with her during this consultation. Review of Systems General: Reports: 10 or more systems reviewed and unremarkable except in HPI and below Const: Denies: fever(s) or chills Eyes: Denies: change in vision Card: Denies: chest pain or palpitations Resp: Denies: dyspnea or productive cough GI: Denies: abdominal pain, nausea or vomiting : Denies: flank pain Musc: Reports: extremity pain, extremity swelling, joint stiffness, muscle weakness and deformity Skin/Breast: Reports: erythema, sores, changes in skin color, dry skin, nail changes and change in hair Neuro: Reports: numbness in extremities, sensory changes and difficulty walking Psych: Denies: suicidal ideation Endo: Denies: change in body appearance Jimmy/Lymph: Denies: tender lymph nodes Medications/Allergies Home Medications Medication Instructions Recorded Confirmed Last Taken Type [employer] Consultant #1 ea 01/12/21 07/21/22 07/20/21 Rx carvedilol 25 mg tablet (Coreg) 25 mg PO BID 05/19/21 07/21/22 05/31/22 07:00 History nitroglycerin 0.4 mg sublingual 0.4 mg sublingual Q5M PRN Chest 06/22/21 07/21/22 07/20/21 Rx tablet Pain 30 days #30 tabs gentamicin 0.1 % topical cream 1 applic topical TID PRN Rash 03/10/22 07/21/22 Unknown History nystatin 100,000 unit/gram topical 1 applic topical BID PRN Rash 03/10/22 07/21/22 Unknown History cream Bio 360 Caps 1 cap PO DAILY 05/31/22 07/21/22 05/30/22 History aspirin 81 mg chewable tablet 81 mg PO BEDTIME 05/31/22 07/21/22 05/30/22 History (Children's Aspirin) calcium carbonate 300 mg (750 mg) 2 tab PO PRN 05/31/22 07/21/22 Unknown History chewable tablet (Tums) clopidogrel 75 mg tablet 75 mg PO BEDTIME 05/31/22 07/21/22 05/30/22 History doxazosin 8 mg tablet 8 mg PO BID 05/31/22 07/21/22 05/31/22 History promethazine 25 mg tablet 25 mg PO Q6H PRN Nausea And 05/31/22 07/21/22 Unknown History Vomiting hydralazine 50 mg tablet 50 mg PO BID #60 tabs 07/11/22 07/21/22 Unknown Rx levothyroxine 150 mcg tablet 150 mcg PO QAM #90 tabs 07/15/22 07/21/22 Unknown Rx (Euthyrox) furosemide 80 mg tablet (Lasix) 120 mg PO BID 07/21/22 07/21/22 Unknown History Allergies Allergy/AdvReac Type Severity Reaction Status Date / Time Iodinated Contrast Media Allergy ALGY-Hives Verified 07/21/22 13:06 Current Medications Generic Name Dose Route Start Last Admin Trade Name Freq PRN Reason Stop Dose Admin Acetaminophen 650 mg 07/21/22 15:14 07/21/22 16:25 Acetaminophen 325 Mg Tablet PO 650 mg Q6H PRN Administration Mild/Mod Pain Or Temp >/= 101 Heparin Sodium (Porcine) 5,000 unit 07/21/22 15:14 07/21/22 16:21 Heparin 5,000 Unit/Ml Inj 1 Ml SUBCUT 5,000 unit Q12H SHELBY Administration Multivitamins 1 each 07/21/22 11:00 07/21/22 11:27 X-Okziopb-Sjoxfma C Tablet PO 1 each DAILY SHELBY Administration Sevelamer Carbonate 1,600 mg 07/21/22 12:00 07/21/22 11:27 Sevelamer 800 Mg Tablet PO 1,600 mg TIDWM SHELBY Administration PFSH Acute PFSH: Medical History (Updated 07/21/22 @ 13:45 by Angel Baez MD) Anemia Chronic kidney disease and blood loss, has previously required transfusion Anemia Aortic valve endocarditis (~04/2020) C. difficile diarrhea CAD (coronary artery disease) Charcot's joint of foot in type 2 diabetes mellitus Congestive heart failure systolic Diabetes Diabetes mellitus type 2, not on medications, HbA1c 10/2021 5.2 Diabetic ulcer of left foot Diabetic ulcer of right foot Diarrhea Difficult intravenous access Epidural abscess (~2017) ESRD (end stage renal disease) previously on peritoneal dialysis currently on hemodialysis History of colon polyps History of MRSA infection spinal abscess 2017 Hyperlipidemia Hypertension Hypothyroidism Ischemic cardiomyopathy EF 05/2020 65% >> 06/2021 15%, 09/2021 25%> 40% (02/01) 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 Severe proximal to mid LAD stenosis. Severe ostial diagonal artery stenosis. 2. Successful revascularization of the LAD with orbital arthrectomy and PCI with JD x 2 including bifurcation stenting of mid LAD and diagonal artery using mini-crush technique (2 stents placed in LAD and 1 in diagonal artery). History of cholecystectomy History of colonoscopy with polypectomy 2017 History of left below knee amputation History of lumbar surgery Due to epidural abscess in March 2018 Peritoneal dialysis catheter in place removal 05/20/21 S/P hemodialysis catheter insertion multiple Family History Mother Cancer Uterine and breast cancer Father Diabetes Other CAD (coronary artery disease) Social History Smoking and tobacco status: never smoked Alcohol intake: current Alcohol intake frequency: holidays/special occasions only Marital status: Vitals/I&O/Wt Last Vital Signs Temp 99.5 F 07/21/22 15:12 Pulse 98 07/21/22 15:38 Resp 16 07/21/22 15:38 BP 147/90 07/21/22 15:38 Pulse Ox 98 07/21/22 15:38 O2 Del Method 07/21/22 15:38 O2 Flow Rate 2 07/21/22 12:20 07/21/22 07/21/22 07/21/22 06:59 14:59 22:59 Intake Total 50 / 50 Balance 50 / 50 Weight last 48 hrs Weight 252 lb 9.6 oz Physical Exam Narrative: Patient is alert and oriented x3, her is bedside, patient was seen while dialyzing. VASCULAR: Dorsalis pedis and posterior tibial arteries faintly palpable likely secondary to edema, right Capillary refill time less than 3 seconds to the right distal hallux. Diminished hair growth at bilateral legs and feet.? Grade 4 pitting edema to the right lower extremity. NEUROLOGICAL: Protective sensation intact 0/10 sites, tested with [place] monofilament to right foot. DERMATOLOGICAL: Fibrogranular wound right central plantar heel measures 7 cm x 8 cm x 0.5 cm, 80% granular 20% fibrotic with macerated rim with undermining, undermining at posterior portion of the wound probes near to calcaneus. There is serosanguineous drainage, no purulence. Warmth and erythema at the right leg. Chronic skin pigmentation changes with fibrosing and decreased texture and turgor to the right leg. MUSCULOSKELETAL:Gross instability and hypermobility to the right ankle and midfoot. Right foot everts 90 degrees to the leg. Right foot is not plantar grade, when weightbearing patient is loading on her medial malleolus with the foot perpendicular to her leg in a everted position. Status post left below- knee amputation. Data : 07/22/22 05:29 07/22/22 05:29 Micro: Microbiology 07/21/22 12:30 Blood Culture - Preliminary Blood SPECIMEN COLLECTED 07/21/22 08:37 Blood Culture - Preliminary Blood SPECIMEN COLLECTED 07/21/22 08:40 Blood Culture - Preliminary Blood SPECIMEN COLLECTED A&P Assessment and plan (1) Cellulitis of right lower limb: Status: Acute (2) ESRD (end stage renal disease): Status: Acute (3) Charcot's joint, right ankle and foot: Status: Chronic (4) Non-pressure chronic ulcer of other part of right foot with fat layer exposed: Status: Chronic (5) Lymphedema: Status: Chronic Plan Very pleasant 61-year-old female with extensive comorbidities presents with malaise, nausea, vomiting and diarrhea admitted to the hospital for sepsis. White blood cell count on admission 16.[address] scan 07/21/2022 of right foot significant for small abscess medial to the plantar aspect of the calcaneus, erosive changes to the calcaneus suspicious for chronic osteo-, severe Charcot arthropathy involving the ankle and [place] joint, ankle joint effusion. Given the patient's clinical appearance, CT scan taken 07/21/[address] scan 12/28/2021 the bony destructive changes suspicious for osteomyelitis are similar in comparison, bony changes could represent chronic osteo versus Charcot, patient has erythema at the right leg, this is not communicating and tracking from the wound at the right central heel. Performed debridement of the right central heel wound and wound was able to debride directly to the area of concern of small abscess, this was serous fluid, there is no purulence. During debridement did not probe directly to bone. Patient is very forthcoming during this encounter and expressed interest in below-knee amputation to the right lower extremity. She states that her right foot is no longer functional to the point that it is no longer aiding in her transferring. She is emotionally taxed with a chronic wound and thinks that she would be better off with an amputation to reduce risk of future infections and sepsis. Given the extent of her Charcot arthropathy, her foot is not plantar grade, her foot fully everts perpendicular to the leg and when she is transferring she is essentially walking on her medial tibia with her foot in a 90 degree angle due to the hypermobility and extensive damage from Charcot arthropathy. Patient requesting consultation with surgeon able to perform below-knee amputation. Coding Level of Care Code Acute Technician Inventory Specialist for Gregorio Thompson Diagnoses Cellulitis of right lower limb L03.115 ESRD (end stage renal disease) N18.6 Charcot's joint, right ankle and foot M14.671 Non-pressure chronic ulcer of other part of right foot with fat layer exposed L97.512 Lymphedema I89.0
[2022-07-21 17:53] LABS: Folate Level 7.7 ng/mL (4.8-37.3)
[2022-07-21] MEDS: vancomycin 1,000 MG in sodium chloride 0.9% 250 ML 250 MG IV (21:34)
[2022-07-21] MEDS: famotidine 20 mg Tablet PO (21:36)
[2022-07-21] MEDS: aspirin 81 mg Chew Tablet PO (21:36)
[2022-07-21] MEDS: clopidogrel 75 mg Tablet PO (21:36)
[2022-07-21] MEDS: carvedilol 25 mg Tablet PO (21:36)
[2022-07-21] MEDS: doxazosin 4 mg Tablet 8 MG PO (21:36)
[2022-07-21] MEDS: hyDRALAzine 50 mg Tablet PO (21:36)
[2022-07-21] MEDS: piperacillin-tazobactam 3.375 GM in sodium chloride 0.9% (plus) 50 ML IV (22:50)
[2022-07-22] VITALS (8 sets, daily range): BP systolic 122–146; BP diastolic 73–83; PULSE 58–79; RESP 12–19; TEMP 36.5–36.8; O2SAT 95–100
[2022-07-22] MEDS: heparin 5,000 unit/mL INJ 1 mL 5000 UNIT SUBCUT ×2 (02:52→14:57)
[2022-07-22] MEDS: levothyroxine 150 mcg Tablet PO (05:07)
[2022-07-22 05:42] LABS: Basophils # 0.1 10^3/uL (0.0-0.1); Basophils % 0.6 %; Eosinophils # 0.2 10^3/uL (0.0-0.8); Eosinophils % 2.5 %; Hematocrit 28.3 % (37.0-47.0); Hemoglobin 8.7 g/dL (11.5-15.3); Lymphocytes # 0.7 10^3/uL (0.8-4.8); Lymphocytes % 7.6 %; Mean Corpuscular HGB Conc 30.7 g/dL (30.0-36.0); Mean Corpuscular Hemoglobin 32.1 pg (28.0-34.0); Mean Corpuscular Volume 104.4 fl (81-99); Mean Platelet Volume 10.1 fL (7.4-10.4); Monocytes # 0.6 10^3/uL (0.2-0.9); Neutrophils # 7.26 10^3/uL (1.8-7.7); Neutrophils % 81.8 %; Nucleated Red Blood Cells % 0 %; Platelet Count 141 10^3/cmm (130-400); Red Blood Count 2.71 10^6/uL (4.1-5.3); White Blood Count 8.9 10^3/uL (4.0-10.0)
[2022-07-22 06:02] LABS: Alanine Aminotransferase 8 U/L (0-33); Albumin Level 2.6 g/dL (3.5-5.2); Alkaline Phosphatase 206 U/L (35-105); Anion Gap 15.7 (5-19); Aspartate Amino Transferase 14 U/L (0-32); Blood Urea Nitrogen 29 mg/dL (6-20); Calcium 8.2 mg/dL (8.5-10.5); Carbon Dioxide 23 mmol/L (22-29); Chloride 100 mmol/L (98-107); Chol HDL Ratio 2.82 mg/dL (0.0-4.40); Cholesterol 79 mg/dL (0-200); Globulin 3.9 g/dL (1.3-4.6); Glomerular Filtration Rate 7.5 mL/min (90-130); Glucose 97 mg/dL (65-115); HDL Cholesterol 28 mg/dL (60-100); LDL Cholesterol Calculated 34 mg/dL (50-129); Magnesium 1.9 mg/dL (1.7-2.3); Osmolality Calculated 286 mOsm/kg (285-295); Phosphorus 4.4 mg/dL (2.5-4.5); Potassium 3.7 mmol/L (3.5-5.1); Sodium 135 mmol/L (136-145); Total Bilirubin 0.6 mg/dL (0.15-1.2); Total Protein 6.5 g/dL (6.6-8.7); Triglycerides 83 mg/dL (0-150); VLDL Cholestrol Calculation 17 mg/dL (0-30)
[2022-07-22 06:05] LABS: Calcium 7.9 mg/dL (8.5-10.5)
[2022-07-22 06:11] LABS: Parathyroid Hormone 81.9 pg/mL (15-65)
[2022-07-22 06:56] LABS: Estmated Average Glucose 103; Hemoglobin A1C 5.2 % (4.0-6.0)
[2022-07-22 06:58] LABS: Iron 58 ug/dL (37-145); Percent Saturation 65.1 % (20-50); Total Iron Binding Capacity 89 mcg/dl; Unsaturated Iron Binding 31 ug/dL (112-347)
[2022-07-22 07:13] LABS: 25 Hydroxy Vitamin D 30 ng/mL (30-100); Ferritin 1307 ng/mL (15-150)
--- NOTE | 2022-07-22 08:40 | USR_ITS ---
PROCEDURE INFORMATION: Exam: US Duplex Right Lower Extremity Arteries Or Arterial Bypass Grafts Exam date and time: 07/22/2022 1:36 PM Age: 61 years old Clinical indication: Other: No healing wounds; Additional info: Pad TECHNIQUE: Imaging protocol: Right Real-time duplex scan of the arteries or arterial bypass grafts of the right lower extremity with 2-D wagoner scale, color Doppler flow and spectral waveform analysis. Images documented and saved. COMPARISON: CT foot RT wo con* [id number] 07/21/2022 2:11 PM FINDINGS: Right common femoral artery: Biphasic to monophasic blood flow in the common femoral, superficial femoral, and popliteal arteries reflecting a degree of stenosis. Right superficial femoral artery: See above. Right popliteal artery: See above. Right calf/foot arteries: Right posterior tibial artery lack of color blood flow. Soft tissues: Subcutaneous edema in the lower extremity. US/[place] [id number] IMPRESSION: 1. Right posterior tibial artery lack of color blood flow. 2. Subcutaneous edema in the lower extremity. 3. Biphasic to monophasic blood flow in the common femoral, superficial femoral, and popliteal arteries reflecting a degree of stenosis.
--- NOTE | 2022-07-22 09:00 | P.PN_ITS ---
Subjective Subjective: diarrhea better Vitals/I&O/Wt Last Vital Signs Temp 98.1 F 07/22/22 07:37 Pulse 58 L 07/22/22 07:37 Resp 18 07/22/22 07:37 BP 130/73 07/22/22 07:37 Pulse Ox 99 07/22/22 07:37 O2 Del Method 07/22/22 07:37 O2 Flow Rate 2 07/22/22 07:37 07/21/22 07/22/22 07/22/22 22:59 06:59 14:59 Intake Total 550 / 600 530 / 1130 240 / 240 Output Total 3412 / 3412 50 / 3462 Balance -2862 / -2812 480 / -2332 240 / 240 Weight last 48 hrs Weight 112.491 kg Weight 111.7 kg Weight 114.577 kg Physical Exam Const: COMMON NORMALS: no acute distress and alert Neuro: SENSORIUM/ORIENTATION: Yes alert Data : 07/22/22 05:29 07/22/22 05:29 Other Labs: Ca 8.2, Phos 4.4, Mg 1.9 TSAT 65%, SF 1307 Micro: Microbiology 07/21/22 08:40 Blood Culture - Preliminary Blood NEGATIVE TO DATE 07/21/22 08:37 Blood Culture - Preliminary Blood NEGATIVE TO DATE 07/21/22 10:20 Bacterial Antigens - Final Urine Kidney 07/21/22 13:30 Stool Lactoferrin - Final Stool C.difficile Toxin B Gene (PCR) - Final Occult Blood (FIT) - Final 07/21/22 13:30 Legionella Urinary Antigen - Final Unknown Source 07/21/22 18:03 Blood Culture - Preliminary Blood SPECIMEN COLLECTED 07/21/22 18:03 Blood Culture - Preliminary Blood SPECIMEN COLLECTED 07/21/22 12:30 Blood Culture - Preliminary Blood SPECIMEN COLLECTED CXR: Radiologist's impression: Comparison: Portable chest, 05/20/2022. Findings: The patchy opacity in the left lower lobe has not changed. Again this is a combination of atelectasis, scarring and loculated effusion. The heart is at the upper limits of normal. The right lung is clear. No acute pneumonia or pneumothorax is seen. There is a dialysis catheter entering the right internal jugular vein and ending at the cavoatrial junction. CT Abd/Pel: Radiologist's impression: Perisplenic and perihepatic ascites. Diffuse mesenteric edema. Diffuse body wall anasarca. Moderate lower abdominal and pelvic ascites. Dense vascular calcification. Normal caliber abdominal aorta. Iliac stents. Small LEFT pleural effusion with patchy infiltrates in the LEFT lower lobe. This is similar to previous. Small LEFT pleural effusion with enhancing pleura improved from previous. Trace RIGHT pleural fluid. Prior cholecystectomy. Mild hepatomegaly. Fatty atrophy of the pancreas. Adrenal glands are normal. No hydronephrosis in either kidney. Bilateral renal cortical atrophy. Enlarged lymph nodes periaortic, common iliac, internal iliac, and inguinal lymph nodes unchanged from previous. There are nonspecific but may be reactive and stable compared to May 31, 2022. A few air-fluid levels in normal caliber small and large bowel. No evidence of high-grade obstruction. Fluid level in the stomach. A&P Assessment and plan (1) ESRD (end stage renal disease): seen via telehealth with assistance of RN at bedside Status: Acute Plan 1. ESRD, HD T//S via right IJ tunneled HD catheter 2. Cellulitis, BC to date no growth, on zosyn and vancomycin. PVD, recurrent leg infections, considering BKA 3. Anemia, iron replete 4. Fluid overload 5. Hypertension, well-controlled on current regimen Recommend: HD tomorrow, 3.5h, 2.5L UF. Continue epogen at Dialysis. Attestations Medical Necessity Statement*: see above Time Spent in Patient Care: 16 - 35 minutes Coding Level of Care Code Acute Nuclear Equipment Operator for Chg Fwd Diagnoses ESRD (end stage renal disease) N18.6
[2022-07-22 10:13] LABS: INR 1.24 (0.8-1.2)
[2022-07-22] MEDS: doxazosin 4 mg Tablet 8 MG PO ×2 (10:15→18:46)
[2022-07-22] MEDS: b-complex-vitamin c Tablet 1 EACH PO (10:16)
[2022-07-22] MEDS: carvedilol 25 mg Tablet PO ×2 (10:16→18:46)
[2022-07-22] MEDS: famotidine 20 mg Tablet PO ×2 (10:17→18:46)
[2022-07-22] MEDS: FUROsemide 40 mg Tablet 80 MG PO ×2 (10:17→18:46)
[2022-07-22] MEDS: piperacillin-tazobactam 3.375 GM in sodium chloride 0.9% (plus) 50 ML IV ×2 (10:18→22:05)
[2022-07-22] MEDS: hyDRALAzine 50 mg Tablet PO ×2 (10:18→18:47)
[2022-07-22] MEDS: nystatin cream 30 gm 1 APPLIC TOPICAL (10:35)
--- NOTE | 2022-07-22 10:44 | P.CONIM_ITS ---
Providers/Reason For Consult Consulting Physician/Specialty*: Dr. Paolo Cabrera, DO/General surgery Reason for Consult*: Possible right below-knee amputation Attending Physician: Angel Baez MD Primary Care Provider: Karen Bear MD History of Present Illness History of Present Illness Who presentedAlesia Shaw is a 61 year old female the hospital with weakness and fatigue. She carries a diagnosis of C. difficile colitis. She has a chronic wound to her right foot and likely osteomyelitis. She currently has lymphedema and cellulitis of the left leg as well. She is requesting right below-knee amputation. She had a left below-knee amputation 18 months ago. She had some difficulty with wound healing at that time. Review of Systems General: Reports: 10 or more systems reviewed and unremarkable except in HPI and below Medications/Allergies Home Medications Medication Instructions Recorded Confirmed Last Taken Type Stump Residential Interior Designer #1 ea 01/12/21 07/21/22 07/20/21 Rx carvedilol 25 mg tablet (Coreg) 25 mg PO BID 05/19/21 07/21/22 05/31/22 07:00 History nitroglycerin 0.4 mg sublingual 0.4 mg sublingual Q5M PRN Chest 06/22/21 07/21/22 07/20/21 Rx tablet Pain 30 days #30 tabs gentamicin 0.1 % topical cream 1 applic topical TID PRN Rash 03/10/22 07/21/22 Unknown History nystatin 100,000 unit/gram topical 1 applic topical BID PRN Rash 03/10/22 07/21/22 Unknown History cream Bio 360 Caps 1 cap PO DAILY 05/31/22 07/21/22 05/30/22 History aspirin 81 mg chewable tablet 81 mg PO BEDTIME 05/31/22 07/21/22 05/30/22 History (Children's Aspirin) calcium carbonate 300 mg (750 mg) 2 tab PO PRN 05/31/22 07/21/22 Unknown History chewable tablet (Tums) clopidogrel 75 mg tablet 75 mg PO BEDTIME 05/31/22 07/21/22 05/30/22 History doxazosin 8 mg tablet 8 mg PO BID 05/31/22 07/21/22 05/31/22 History promethazine 25 mg tablet 25 mg PO Q6H PRN Nausea And 05/31/22 07/21/22 Unknown History Vomiting hydralazine 50 mg tablet 50 mg PO BID #60 tabs 07/11/22 07/21/22 Unknown Rx levothyroxine 150 mcg tablet 150 mcg PO QAM #90 tabs 07/15/22 07/21/22 Unknown Rx (Euthyrox) furosemide 80 mg tablet (Lasix) 120 mg PO BID 07/21/22 07/21/22 Unknown History Allergies Allergy/AdvReac Type Severity Reaction Status Date / Time Iodinated Contrast Media Allergy ALGY-Hives Verified 07/21/22 13:06 Current Medications Generic Name Dose Route Start Last Admin Trade Name Freq PRN Reason Stop Dose Admin Acetaminophen 650 mg 07/21/22 15:14 07/21/22 16:25 Acetaminophen 325 Mg Tablet PO 650 mg Q6H PRN Administration Mild/Mod Pain Or Temp >/= 101 Aspirin 81 mg 07/21/22 21:00 07/21/22 21:36 Aspirin 81 Mg Chew Tablet PO 81 mg BEDTIME SHELBY Administration Carvedilol 25 mg 07/21/22 18:00 07/22/22 10:16 Carvedilol 25 Mg Tablet PO 25 mg BID SHELBY Administration Clopidogrel Bisulfate 75 mg 07/21/22 21:00 07/21/22 21:36 Clopidogrel 75 Mg Tablet PO 75 mg BEDTIME SHELBY Administration Doxazosin Mesylate 8 mg 07/21/22 18:00 07/22/22 10:15 Doxazosin 4 Mg Tablet PO 8 mg BID SHELBY Administration Famotidine 20 mg 07/21/22 18:00 07/22/22 10:17 Famotidine 20 Mg Tablet PO 20 mg BID SHELBY Administration Furosemide 80 mg 07/21/22 18:00 07/22/22 10:17 Furosemide 40 Mg Tablet PO 80 mg BID SHELBY Administration Heparin Sodium (Porcine) 5,000 unit 07/21/22 15:14 07/22/22 02:52 Heparin 5,000 Unit/Ml Inj 1 Ml SUBCUT 5,000 unit Q12H SHELBY Administration Hydralazine HCl 50 mg 07/21/22 18:00 07/22/22 10:18 Hydralazine 50 Mg Tablet PO 50 mg BID SHELBY Administration Piperacillin Sod/Tazobactam 50 mls @ 12.5 mls/hr 07/21/22 17:00 07/22/22 10:18 Sod 3.375 gm/ Sodium Chloride IV 12.5 mls/hr Q12H SHELBY Administration Protocol Vancomycin HCl 1,000 mg/ 250 mls @ 250 mls/hr 07/21/22 15:45 07/21/22 22:55 Sodium Chloride IV Infused [facility] Infusion Protocol Levothyroxine Sodium 150 mcg 07/22/22 06:00 07/22/22 05:07 Levothyroxine 150 Mcg Tablet PO 150 mcg QAM SHELBY Administration Multivitamins 1 each 07/21/22 11:00 07/22/22 10:16 N-Sbctala-Jyyiyah C Tablet PO 1 each DAILY SHELBY Administration Nystatin 1 applic 07/21/22 15:14 07/22/22 10:35 Nystatin Cream 30 Gm TOPICAL 1 applic BID PRN Administration Rash Sevelamer Carbonate 1,600 mg 07/21/22 12:00 07/22/22 09:37 Sevelamer 800 Mg Tablet PO Not Given TIDWM SHELBY Vancomycin HCl 250 mg 07/21/22 17:00 07/22/22 10:33 Vancomycin 1,000 Mg Oral Mery (Btl) PO 250 mg QID SHELBY Administration PFSH Acute PFSH: Medical History Anemia Chronic kidney disease and blood loss, has previously required transfusion Anemia Aortic valve endocarditis (~04/2020) C. difficile diarrhea CAD (coronary artery disease) Charcot's joint of foot in type 2 diabetes mellitus Congestive heart failure systolic Diabetes Diabetes mellitus type 2, not on medications, HbA1c 10/2021 5.2 Diabetic ulcer of left foot Diabetic ulcer of right foot Diarrhea Difficult intravenous access Epidural abscess (~2017) ESRD (end stage renal disease) previously on peritoneal dialysis currently on hemodialysis History of colon polyps History of MRSA infection spinal abscess 2017 Hyperlipidemia Hypertension Hypothyroidism Ischemic cardiomyopathy EF 05/2020 65% >> 06/2021 15%, 09/2021 25%> 40% (02/01) 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 Severe proximal to mid LAD stenosis. Severe ostial diagonal artery stenosis. 2. Successful revascularization of the LAD with orbital arthrectomy and PCI with JD x 2 including bifurcation stenting of mid LAD and diagonal artery using mini-crush technique (2 stents placed in LAD and 1 in diagonal artery). History of cholecystectomy History of colonoscopy with polypectomy 2017 History of left below knee amputation History of lumbar surgery Due to epidural abscess in March 2018 Peritoneal dialysis catheter in place removal 05/20/21 S/P hemodialysis catheter insertion multiple Family History Mother Cancer Uterine and breast cancer Father Diabetes Other CAD (coronary artery disease) Social History Smoking and tobacco status: never smoked Alcohol intake: current Alcohol intake frequency: holidays/special occasions only Marital status: Vitals/I&O/Wt Last Vital Signs Temp 98.1 F 07/22/22 07:37 Pulse 74 07/22/22 08:00 Resp 17 07/22/22 08:00 BP 130/73 07/22/22 07:37 Pulse Ox 98 07/22/22 08:00 O2 Del Method 07/22/22 08:00 O2 Flow Rate 2 07/22/22 08:00 07/21/22 07/22/22 07/22/22 22:59 06:59 14:59 Intake Total 550 / 600 530 / 1130 480 / 480 Output Total 3412 / 3412 50 / 3462 Balance -2862 / -2812 480 / -2332 480 / 480 Weight last 48 hrs Weight 248 lb Weight 246 lb 4.101 oz Weight 252 lb 9.6 oz Physical Exam Narrative: General : Patient is well developed , no acute distress, oriented x3 Head : Normal cephalic, a-traumatic. Ears : Pinnae and external canal are normal. Hearing is normal. Eyes : PERRLA, Sclera and injection are normal. No conjunctival discharge. Nose : Mucous membranes are without erythema. Throat : buccal mucosa is normal, gums are without significant recession or hypertrophy. Lungs : Equal chest rise bilaterally, no use of accessory muscles, trachea is m idline. Cor : Rate and rhythm are normal. Abdomen : Soft, ND, NT, no g/r/m Extremities : Healed left below-knee amputation. There is lymphedema to the right lower extremity with cellulitis of the right leg. The right foot is in bandages and being treated by podiatry. Back : non-tender to palpation, no CVA tenderness. Neuro : CN II - XII intact, Upper and lower extremities have equal and full strength Data : 07/22/22 05:29 07/22/22 05:29 Micro: Microbiology 07/21/22 08:40 Blood Culture - Preliminary Blood NEGATIVE TO DATE 07/21/22 08:37 Blood Culture - Preliminary Blood NEGATIVE TO DATE 07/21/22 10:20 Bacterial Antigens - Final Urine Kidney 07/21/22 13:30 Stool Lactoferrin - Final Stool C.difficile Toxin B Gene (PCR) - Final Occult Blood (FIT) - Final 07/21/22 13:30 Legionella Urinary Antigen - Final Unknown Source 07/21/22 18:03 Blood Culture - Preliminary Blood SPECIMEN COLLECTED 07/21/22 18:03 Blood Culture - Preliminary Blood SPECIMEN COLLECTED 07/21/22 12:30 Blood Culture - Preliminary Blood SPECIMEN COLLECTED A&P Assessment and plan (1) Cellulitis: Status: Acute (2) Charcot's joint, right ankle and foot: Status: Chronic (3) Non-pressure chronic ulcer of other part of right foot with fat layer exposed: Status: Chronic Plan Check likely has osteomyelitis with a septic joint in the right foot. She, however is not currently septic. Unfortunately she also has lymphedema and cellulitis of her right leg, upper calf. The 2 options at this point are guillotine amputation at the ankle to allow the infection and lymphedema to drain out, followed by BKA next week. Otherwise she can be treated with antibiotics until her cellulitis resolves and then undergo a single-stage below- knee amputation. She would prefer this. I think this is reasonable, as she is not currently septic. If she underwent a below-knee amputation at this time she would have a wound infection and a very difficult time healing. I will continue to follow her over the weekend. She can even be discharged home if medically cleared and to get a below-knee amputation as an outpatient. I will continue to follow her while she is in the hospital. Coding Level of Care Code Acute Pairer Substandard for Gregorio Thompson Diagnoses Cellulitis L03.90 Charcot's joint, right ankle and foot M14.671 Non-pressure chronic ulcer of other part of right foot with fat layer exposed L97.512
--- NOTE | 2022-07-22 11:44 | PC.CHAP ---
Pastoral Care Encounter/Spiritual Assessment Type of Contact [] Declined crawler crane operator visit [] Patient/Family/Request visit [] Outpatient visit [] Follow-up visit [] Physician referral [] Code/Alert [x] Routine visit [] Staff referral [] Actively dying [] Patient sleeping [] Family support [] [] Out of room [] Palliative care [] [] Receiving care in room [] Pre-surgical visit [] Trauma [] Long length of stay [] ICU visit [] Other: Relational/Emotional Strength [] Patient feels connected with others/family/visitors/staff [] Distress [] Loneliness/isolation [] Abandonment Spirituality of Patient [] Person of Mana [] Attends Zoroastrianism of their Mana [] Believes in Prayer [] Reads Bible or Christian materials [] There are Spiritual issues to be addressed Short Goods Drier Interventions [] Prayer [] Active listening [] Non-anxious presence [] Spiritual/emotional support [] Crisis/trauma care [] Spiritual counseling [] Bereavement support [] Provided bereavement packet [] Provided Bible/devotional materials [] Provided toy/stuffed animal, coloring book to patient or family member [] Provided Communion [] Anointing/Sentinel [] Salvation [] Completed spiritual assessment [] Other: Impact on Illness or Injury [] Angry [] Fearful [] Anxious [] Often cries [] Exhaustion [] Unable to work [] Unable to attend uatsdin [] Unable to walk/stand [] Unable to read [] Unable to drive [] Unable to eat/drink [] Unable to sleep [] Unable to be with family [] Patient intubated [x] Other: covid Summary Time spent with patient
--- NOTE | 2022-07-22 15:09 | PM.PN ---
Subjective Subjective: No acute vents overnight. Today morning patient seen sitting in bed with at bedside. Patient states she is feeling better. Denies any nausea, vomiting, headache. Underwent dialysis yesterday. Blood pressures well controlled. On review of chart it seems somehow multiple blood cultures were sent yesterday from the ER. Vitals/I&O/Wt Last Vital Signs Temp 98.0 F 07/22/22 11:47 Pulse 79 07/22/22 11:47 Resp 17 07/22/22 11:47 BP 124/73 07/22/22 11:47 Pulse Ox 99 07/22/22 11:47 O2 Del Method 07/22/22 11:47 O2 Flow Rate 2 07/22/22 11:47 07/22/22 07/22/22 07/22/22 06:59 14:59 22:59 Intake Total 530 / 1130 530 / 530 Output Total 50 / 3462 Balance 480 / -2332 530 / 530 Weight last 48 hrs Weight 112.491 kg Weight 111.7 kg Weight 114.577 kg Physical Exam Narrative: General: No acute distress, AO x3 HEENT: PERRLA, pupils bilaterally equal and reactive Chest: Normal vesicular breath sounds, no added sounds, equal good air entry bilaterally CVS: S1-S2 regular, no murmurs, no tachycardia, no gallops, no rubs Abdomen: Soft, mild tenderness in right upper quadrant, Zazueta sign negative, no organomegaly, bowel sounds present Neuro: No focal deficits, no facial deformity, AO x3, power 5/5 in all limbs Extremities: Left BKA, right lymphedema present, Skin warm, moist to touch, less warm and less red than yesterday. Open pressure he ulcer present on the right side with pink base, surrounding skin whitish in color with mild white-colored base without any fluctuance. Data : 07/22/22 05:29 07/22/22 05:29 Micro: Microbiology 07/21/22 13:30 Stool Lactoferrin - Final Stool Enteric Pathogens (PCR) - Final Parasite Antigen Panel - Final C.difficile Toxin B Gene (PCR) - Final Occult Blood (FIT) - Final 07/22/22 13:05 Blood Culture - Preliminary Blood SPECIMEN COLLECTED 07/22/22 13:00 Blood Culture - Preliminary Blood SPECIMEN COLLECTED 07/21/22 12:30 Blood Culture - Preliminary Blood 07/21/22 08:40 Blood Culture - Preliminary Blood NEGATIVE TO DATE 07/21/22 08:37 Blood Culture - Preliminary Blood NEGATIVE TO DATE 07/21/22 10:20 Bacterial Antigens - Final Urine Kidney 07/21/22 13:30 Legionella Urinary Antigen - Final Unknown Source 07/21/22 18:03 Blood Culture - Preliminary Blood SPECIMEN COLLECTED 07/21/22 18:03 Blood Culture - Preliminary Blood SPECIMEN COLLECTED A&P Assessment and plan (1) C. difficile diarrhea: Status: Acute (2) Sepsis: Ruled in with fever, leukocytosis with possible source of cellulitis versus diarrhea Status: Acute (3) Charcot's joint, right ankle and foot: Status: Chronic (4) Abscess of right heel: Status: Suspected (5) Acute osteomyelitis of right calcaneus: Status: Acute (6) Effusion of ankle joint, right: Status: Acute (7) Cellulitis of right lower limb: Status: Acute (8) Non-pressure chronic ulcer of other part of right foot with fat layer exposed: Status: Chronic (9) Lymphedema: Status: Chronic (10) ESRD (end stage renal disease): Status: Acute (11) Protein-energy malnutrition: Status: Chronic Plan 61-year-old female with past medical history of endocarditis, spinal abscess, osteomyelitis needing to be left BKA, history of MRSA and MSSA bacteremia, end-stage renal disease patient on hemodialysis, recent C. difficile presents with fever, ongoing worsening diarrhea for last 1 week and missing dialysis for last 2 sessions along with open pressure heel ulcer on the right foot. Sepsis: As above. Most likely secondary to C. difficile colitis along with possible abscess and osteomyelitis of the right calcaneum and right heel. Cellulitis less likely. Blood cultures from admission 1 out of 4 bottles from dialysis port positive for GPC. Stool studies positive for C. difficile colitis. No colitis on CT abdomen pelvis. Given previous culture history for now continue vancomycin and Zosyn. Repeat blood cultures both empirically and port. Follow-up blood cultures. 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 Last time patient was on Dificid. Vancomycin 500 mg p.o. 4 times daily. Patient would most likely need slow taper over next 28 days as an outpatient. Care discussed in detail with Dr. Santana from podiatry. After discussion with the family he recommends BKA. Care discussed in detail with Dr. Cabrera from surgery. He would like to proceed with possible foot amputation for now and then go forward. Will continue to coordinate plan. Continue antibiotic meanwhile. End-stage renal disease on hemodialysis: Missed dialysis sessions Nephrology recommendations appreciated. Dialysis accordingly. Hypertension: Goal blood pressure less than 140/90 mmHg. Continue multiple home oral medications. Will uptitrate as per goals. History of ischemic cardiomyopathy: Most recent EF 40% History of CAD: Post PCI. No active chest pain. Continue with home dose of aspirin, Coreg, Plavix. Check lipid panel. History of type 2 diabetes mellitus: Controlled. Last A1c 5.2. Repeat A1c. Hold off on insulin sliding scale Analgesia: Tylenol as needed Glycemic control: Not needed. Repeat A1c. Nutrition: Renal dialysis diet CODE STATUS: Full code PUD prophylaxis: Famotidine DVT prophylaxis: Heparin 5000 every 12 hourly Discharge planning: Home with caregiver once medically cleared Admit to [facility]. This documentation was created by [employer] commercial center manager software. Every effort was made to ensure accuracy of commercial center manager. Any obvious errors or omissions should be clarified with the author of the document. Attestations Medical Necessity Statement*: Requires further hospitalization for management of sepsis secondary to C. difficile, right calcaneal osteomyelitis, right heel abscess while further definitive plan is sought with a possible amputation Time Spent in Patient Care: Greater than 35 minutes Coding Level of Care Code Acute Commercial Center Manager for [facility] Fwd Diagnoses C. difficile diarrhea A04.72 Sepsis A41.9 Charcot's joint, right ankle and foot M14.671 Abscess of right heel L02.611 Acute osteomyelitis of right calcaneus M86.171 Effusion of ankle joint, right M25.471 Cellulitis of right lower limb L03.115 Non-pressure chronic ulcer of other part of right foot with fat layer exposed L97.512 Lymphedema I89.0 ESRD (end stage renal disease) N18.6 Protein-energy malnutrition E46
[2022-07-22] MEDS: aspirin 81 mg Chew Tablet PO (22:05)
[2022-07-23] VITALS: BP 143/70; PULSE 73; RESP 12; TEMP 36.5; O2SAT 100
[2022-07-23] MEDS: heparin 5,000 unit/mL INJ 1 mL 5000 UNIT SUBCUT ×2 (03:37→16:30)
[2022-07-23 04:00] VITALS: BP 127/82; PULSE 103; RESP 14; TEMP 36.6; O2SAT 98
[2022-07-23] MEDS: levothyroxine 150 mcg Tablet PO (05:12)
[2022-07-23 05:21] LABS: Basophils # 0.1 10^3/uL (0.0-0.1); Basophils % 0.7 %; Eosinophils # 0.3 10^3/uL (0.0-0.8); Eosinophils % 4.2 %; Hematocrit 29.6 % (37.0-47.0); Hemoglobin 8.9 g/dL (11.5-15.3); Lymphocytes # 0.7 10^3/uL (0.8-4.8); Lymphocytes % 9.6 %; Mean Corpuscular HGB Conc 30.1 g/dL (30.0-36.0); Mean Corpuscular Hemoglobin 31.3 pg (28.0-34.0); Mean Corpuscular Volume 104.2 fl (81-99); Mean Platelet Volume 9.5 fL (7.4-10.4); Monocytes # 0.6 10^3/uL (0.2-0.9); Neutrophils # 5.23 10^3/uL (1.8-7.7); Neutrophils % 75.9 %; Nucleated Red Blood Cells % 0 %; Platelet Count 156 10^3/cmm (130-400); Red Blood Count 2.84 10^6/uL (4.1-5.3); Red Cell Distribution Width 15.5 % (12.1-15.1); White Blood Count 6.9 10^3/uL (4.0-10.0)
[2022-07-23 05:40] LABS: Alanine Aminotransferase 8 U/L (0-33); Albumin Level 2.4 g/dL (3.5-5.2); Alkaline Phosphatase 186 U/L (35-105); Aspartate Amino Transferase 11 U/L (0-32); Blood Urea Nitrogen 36 mg/dL (6-20); Carbon Dioxide 25 mmol/L (22-29); Chloride 100 mmol/L (98-107); Globulin 4.2 g/dL (1.3-4.6); Glucose 87 mg/dL (65-115); Osmolality Calculated 290 mOsm/kg (285-295); Phosphorus 5.4 mg/dL (2.5-4.5); Sodium 136 mmol/L (136-145); Total Bilirubin 0.6 mg/dL (0.15-1.2); Total Protein 6.6 g/dL (6.6-8.7)
[2022-07-23 07:33] VITALS: BP 144/68; PULSE 69; RESP 18; TEMP 36.4; O2SAT 97
[2022-07-23] MEDS: FUROsemide 40 mg Tablet 80 MG PO ×2 (08:32→18:26)
[2022-07-23] MEDS: b-complex-vitamin c Tablet 1 EACH PO (08:33)
[2022-07-23] MEDS: carvedilol 25 mg Tablet PO ×2 (08:33→18:27)
[2022-07-23] MEDS: hyDRALAzine 50 mg Tablet PO ×2 (08:34→18:27)
[2022-07-23] MEDS: doxazosin 4 mg Tablet 8 MG PO ×2 (08:34→18:27)
[2022-07-23] MEDS: famotidine 20 mg Tablet PO ×2 (08:35→18:27)
--- NOTE | 2022-07-23 09:07 | PC.NURSE ---
pt to dialysis room via hospital bed at 0900 for scheduled dialysis
[2022-07-23] MEDS: heparin, porcine 1,000 unit/mL INJ 10 mL 1000 UNIT IV (09:22)
--- NOTE | 2022-07-23 09:33 | P.PN_ITS ---
Vitals/I&O/Wt Last Vital Signs Temp 97.6 F 07/23/22 07:33 Pulse 69 07/23/22 07:33 Resp 18 07/23/22 07:33 BP 144/68 07/23/22 07:33 Pulse Ox 97 07/23/22 07:33 O2 Del Method 07/23/22 07:33 O2 Flow Rate 3 07/23/22 00:00 07/22/22 07/23/22 07/23/22 22:59 06:59 14:59 Intake Total 480 / 1010 50 / 1060 Output Total 0 / 0 0 / 0 Balance 480 / 1010 50 / 1060 Weight last 48 hrs Weight 248 lb 4.8 oz Weight 248 lb Weight 246 lb 4.101 oz Weight 252 lb 9.6 oz Data : 07/23/22 05:11 07/23/22 05:11 Micro: Microbiology 07/21/22 18:03 Blood Culture - Preliminary Blood NEGATIVE TO DATE 07/21/22 18:03 Blood Culture - Preliminary Blood NEGATIVE TO DATE 07/21/22 13:30 Stool Lactoferrin - Final Stool Enteric Pathogens (PCR) - Final Parasite Antigen Panel - Final C.difficile Toxin B Gene (PCR) - Final Occult Blood (FIT) - Final 07/22/22 13:05 Blood Culture - Preliminary Blood SPECIMEN COLLECTED 07/22/22 13:00 Blood Culture - Preliminary Blood SPECIMEN COLLECTED 07/21/22 12:30 Blood Culture - Preliminary Blood 07/21/22 08:40 Blood Culture - Preliminary Blood NEGATIVE TO DATE 07/21/22 08:37 Blood Culture - Preliminary Blood NEGATIVE TO DATE 07/21/22 10:20 Bacterial Antigens - Final Urine Kidney A&P Assessment and plan (1) Cellulitis: Status: Acute (2) Charcot's joint, right ankle and foot: Status: Chronic (3) Non-pressure chronic ulcer of other part of right foot with fat layer exposed: Status: Chronic Plan Tried to see patient during rounds today. She was in hemodialysis. I will see her tomorrow. Plan is for right below-knee amputation on Monday. Attestations Medical Necessity Statement*: Patient will receive right below-knee amputation on Monday and will require at least a few days in the hospital afterwards Coding Level of Care Code Acute Curtain Framer for Gregorio Thompson Diagnoses Cellulitis L03.90 Charcot's joint, right ankle and foot M14.671 Non-pressure chronic ulcer of other part of right foot with fat layer exposed L97.351
--- NOTE | 2022-07-23 11:12 | PM.PN ---
Subjective Subjective: no new issues Vitals/I&O/Wt Last Vital Signs Temp 97.6 F 07/23/22 07:33 Pulse 69 07/23/22 07:33 Resp 18 07/23/22 07:33 BP 144/68 07/23/22 07:33 Pulse Ox 97 07/23/22 07:33 O2 Del Method 07/23/22 07:33 O2 Flow Rate 3 07/23/22 00:00 07/22/22 07/23/22 07/23/22 22:59 06:59 14:59 Intake Total 480 / 1010 50 / 1060 240 / 240 Output Total 0 / 0 0 / 0 Balance 480 / 1010 50 / 1060 240 / 240 Weight last 48 hrs Weight 112.627 kg Weight 112.491 kg Weight 111.7 kg Weight 114.577 kg Data : 07/23/22 05:11 07/23/22 05:11 Micro: Microbiology 07/21/22 18:03 Blood Culture - Preliminary Blood NEGATIVE TO DATE 07/21/22 18:03 Blood Culture - Preliminary Blood NEGATIVE TO DATE 07/21/22 13:30 Stool Lactoferrin - Final Stool Enteric Pathogens (PCR) - Final Parasite Antigen Panel - Final C.difficile Toxin B Gene (PCR) - Final Occult Blood (FIT) - Final 07/22/22 13:05 Blood Culture - Preliminary Blood SPECIMEN COLLECTED 07/22/22 13:00 Blood Culture - Preliminary Blood SPECIMEN COLLECTED 07/21/22 12:30 Blood Culture - Preliminary Blood 07/21/22 08:40 Blood Culture - Preliminary Blood NEGATIVE TO DATE 07/21/22 08:37 Blood Culture - Preliminary Blood NEGATIVE TO DATE 07/21/22 10:20 Bacterial Antigens - Final Urine Kidney A&P Assessment and plan (1) ESRD (end stage renal disease): seen via telehealth with assistance of RN at bedside Status: Acute Plan 1. ESRD, HD T/Th/S via right IJ tunneled HD catheter 2. Cellulitis, BC to date no growth, on zosyn and vancomycin. PVD, recurrent leg infections, BKA planned for Monday 3. Anemia, iron replete 4. Fluid overload 5. Hypertension, well-controlled on current regimen Recommend: Continue HD T/Th/S Continue epogen at Dialysis. Check vancomycin level Attestations Medical Necessity Statement*: see above Time Spent in Patient Care: 16 - 35 minutes Coding Level of Care Code Acute Street Sweeper for Chg Fwd Diagnoses ESRD (end stage renal disease) N18.6
[2022-07-23 13:04] VITALS: BP 126/78; BP 138/80; PULSE 61; PULSE 69; RESP 16; TEMP 36.4; TEMP 36.6
[2022-07-23] MEDS: piperacillin-tazobactam 3.375 GM in sodium chloride 0.9% (plus) 50 ML IV (13:41)
[2022-07-23 16:00] VITALS: BP 124/70; PULSE 73; RESP 18; TEMP 36.7; O2SAT 96
--- NOTE | 2022-07-23 16:34 | PM.PN ---
Subjective Subjective: No acute events overnight. Patient hemodynamically stable. States that is improving. Seen during dialysis. Denies any nausea, vomiting, headache. Vitals/I&O/Wt Last Vital Signs Temp 98.0 F 07/23/22 16:00 Pulse 73 07/23/22 16:00 Resp 18 07/23/22 16:00 BP 124/70 07/23/22 16:00 Pulse Ox 96 07/23/22 16:00 O2 Del Method 07/23/22 16:00 O2 Flow Rate 3 07/23/22 00:00 07/23/22 07/23/22 07/23/22 06:59 14:59 22:59 Intake Total 50 / 1060 740 / 740 Output Total 0 / 0 2365 / 2365 Balance 50 / 1060 -1625 / -1625 Weight last 48 hrs Weight 111.7 kg Weight 112.627 kg Weight 112.491 kg Weight 111.7 kg Physical Exam Narrative: General: No acute distress, AO x3 HEENT: PERRLA, pupils bilaterally equal and reactive Chest: Normal vesicular breath sounds, no added sounds, equal good air entry bilaterally CVS: S1-S2 regular, no murmurs, no tachycardia, no gallops, no rubs Abdomen: Soft, mild tenderness in right upper quadrant, Zazueta sign negative, no organomegaly, bowel sounds present Neuro: No focal deficits, no facial deformity, AO x3, power 5/5 in all limbs Extremities: Left BKA, right lymphedema present, Skin warm, moist to touch, less warm and less red than yesterday. Open pressure he ulcer present on the right side with pink base, surrounding skin whitish in color with mild white-colored base without any fluctuance. Data : 07/23/22 05:11 07/23/22 05:11 Micro: Microbiology 07/22/22 13:05 Blood Culture - Preliminary Blood NEGATIVE TO DATE 07/22/22 13:00 Blood Culture - Preliminary Blood NEGATIVE TO DATE 07/21/22 17:22 Anaerobic Culture - Preliminary Foot - Wound 07/21/22 12:30 Blood Culture - Preliminary Blood Coag negative Staphylococcus 07/21/22 18:03 Blood Culture - Preliminary Blood NEGATIVE TO DATE 07/21/22 18:03 Blood Culture - Preliminary Blood NEGATIVE TO DATE 07/21/22 13:30 Stool Lactoferrin - Final Stool Enteric Pathogens (PCR) - Final Parasite Antigen Panel - Final C.difficile Toxin B Gene (PCR) - Final Occult Blood (FIT) - Final A&P Assessment and plan (1) C. difficile diarrhea: Status: Acute (2) Sepsis: Ruled in with fever, leukocytosis with possible source of cellulitis versus diarrhea Status: Acute (3) Charcot's joint, right ankle and foot: Status: Chronic (4) Abscess of right heel: Status: Suspected (5) Acute osteomyelitis of right calcaneus: Status: Acute (6) Effusion of ankle joint, right: Status: Acute (7) Cellulitis of right lower limb: Status: Acute (8) Non-pressure chronic ulcer of other part of right foot with fat layer exposed: Status: Chronic (9) Lymphedema: Status: Chronic (10) ESRD (end stage renal disease): Status: Acute (11) Protein-energy malnutrition: Status: Chronic Plan 61-year-old female with past medical history of endocarditis, spinal abscess, osteomyelitis needing to be left BKA, history of MRSA and MSSA bacteremia, end-stage renal disease patient on hemodialysis, recent C. difficile presents with fever, ongoing worsening diarrhea for last 1 week and missing dialysis for last 2 sessions along with open pressure heel ulcer on the right foot. Sepsis: As above. Most likely secondary to C. difficile colitis along with possible abscess and osteomyelitis of the right calcaneum and right heel. Cellulitis less likely. Blood cultures from admission 1 out of 4 bottles from dialysis port positive for GPC. Stool studies positive for C. difficile colitis. No colitis on CT abdomen pelvis. Given previous culture history for now continue vancomycin and Zosyn. Repeat blood cultures both empirically and port. Follow-up blood cultures. 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 Last time patient was on Dificid. Vancomycin 500 mg p.o. 4 times daily. Patient would most likely need slow taper over next 28 days as an outpatient. Care discussed in detail with Dr. Santana from podiatry. After discussion with the family he recommends BKA. Care discussed in detail with Dr. Cabrera from surgery. He would like to proceed with possible foot amputation for now and then go forward. Will continue to coordinate plan. Continue antibiotic meanwhile. End-stage renal disease on hemodialysis: Missed dialysis sessions Nephrology recommendations appreciated. Dialysis accordingly. Hypertension: Goal blood pressure less than 140/90 mmHg. Continue multiple home oral medications. Will uptitrate as per goals. History of ischemic cardiomyopathy: Most recent EF 40% History of CAD: Post PCI. No active chest pain. Continue with home dose of aspirin, Coreg, Plavix. Check lipid panel. History of type 2 diabetes mellitus: Controlled. Last A1c 5.2. Repeat A1c. Hold off on insulin sliding scale Analgesia: Tylenol as needed Glycemic control: Not needed. Repeat A1c. Nutrition: Renal dialysis diet CODE STATUS: Full code PUD prophylaxis: Famotidine DVT prophylaxis: Heparin 5000 every 12 hourly Discharge planning: Home with caregiver once medically cleared Continue care at [facility] floor. Plan for today: Follow-up with blood cultures. Continue with vancomycin and Zosyn for now. Continue with oral vancomycin 500 mg 4 times a day. Plan for BKA versus foot amputation on Monday as per surgical team. This documentation was created by [employer] oil and gas lease pumper software. Every effort was made to ensure accuracy of oil and gas lease pumper. Any obvious errors or omissions should be clarified with the author of the document. Attestations Medical Necessity Statement*: Requires further hospitalization for management of C. difficile diarrhea, sepsis secondary C. difficile, possible abscess and osteomyelitis of right calcaneum and heel in setting of Charcot's foot, ESRD on hemodialysis while blood cultures are followed Time Spent in Patient Care: Greater than 35 minutes Coding Level of Care Code Acute Order Picker for [facility] Fwd Diagnoses C. difficile diarrhea A04.72 Sepsis A41.9 Charcot's joint, right ankle and foot M14.671 Abscess of right heel L02.611 Acute osteomyelitis of right calcaneus M86.171 Effusion of ankle joint, right M25.471 Cellulitis of right lower limb L03.115 Non-pressure chronic ulcer of other part of right foot with fat layer exposed L97.512 Lymphedema I89.0 ESRD (end stage renal disease) N18.6 Protein-energy malnutrition E46
[2022-07-23] MEDS: vancomycin 1,000 MG in sodium chloride 0.9% 250 ML 250 MG IV (17:58)
[2022-07-23 20:00] VITALS: BP 128/72; PULSE 65; PULSE 71; RESP 17; RESP 18; TEMP 36.6; O2SAT 100; O2SAT 95
[2022-07-23] MEDS: aspirin 81 mg Chew Tablet PO (20:55)
[2022-07-23] MEDS: diphenhydrAMINE 50 mg/mL SDV 1mL 25 MG IVP (21:19)
[2022-07-24] VITALS (8 sets, daily range): BP systolic 130–159; BP diastolic 63–93; PULSE 61–93; RESP 16–18; TEMP 36.4–36.7; O2SAT 97–100
[2022-07-24] MEDS: heparin 5,000 unit/mL INJ 1 mL 5000 UNIT SUBCUT ×2 (02:32→16:33)
[2022-07-24] MEDS: piperacillin-tazobactam 3.375 GM in sodium chloride 0.9% (plus) 50 ML IV ×2 (02:34→14:03)
[2022-07-24] MEDS: diphenhydrAMINE 50 mg/mL SDV 1mL 25 MG IVP (04:29)
[2022-07-24 05:16] LABS: Basophils % 0.7 %; Eosinophils # 0.3 10^3/uL (0.0-0.8); Eosinophils % 4.6 %; Hematocrit 30.7 % (37.0-47.0); Hemoglobin 9.3 g/dL (11.5-15.3); Lymphocytes # 0.7 10^3/uL (0.8-4.8); Lymphocytes % 10.8 %; Mean Corpuscular HGB Conc 30.3 g/dL (30.0-36.0); Mean Corpuscular Volume 102.3 fl (81-99); Monocytes # 0.5 10^3/uL (0.2-0.9); Monocytes % 7.5 %; Neutrophils # 4.65 10^3/uL (1.8-7.7); Neutrophils % 75.7 %; Nucleated Red Blood Cells % 0 %; Platelet Count 167 10^3/cmm (130-400); Red Cell Distribution Width 15.5 % (12.1-15.1); White Blood Count 6.1 10^3/uL (4.0-10.0)
[2022-07-24] MEDS: levothyroxine 150 mcg Tablet PO (05:30)
[2022-07-24 05:43] LABS: Alanine Aminotransferase 6 U/L (0-33); Albumin Level 2.8 g/dL (3.5-5.2); Alkaline Phosphatase 199 U/L (35-105); Anion Gap 13.9 (5-19); Aspartate Amino Transferase 12 U/L (0-32); Blood Urea Nitrogen 22 mg/dL (6-20); Calcium 8.3 mg/dL (8.5-10.5); Carbon Dioxide 27 mmol/L (22-29); Chloride 97 mmol/L (98-107); Globulin 4.2 g/dL (1.3-4.6); Glomerular Filtration Rate 9.8 mL/min (90-130); Glucose 104 mg/dL (65-115); Osmolality Calculated 282 mOsm/kg (285-295); Phosphorus 4.1 mg/dL (2.5-4.5); Potassium 3.9 mmol/L (3.5-5.1); Sodium 134 mmol/L (136-145); Total Bilirubin 0.6 mg/dL (0.15-1.2)
[2022-07-24] MEDS: hyDRALAzine 50 mg Tablet PO ×2 (09:43→17:36)
[2022-07-24] MEDS: carvedilol 25 mg Tablet PO ×2 (09:43→17:36)
[2022-07-24] MEDS: b-complex-vitamin c Tablet 1 EACH PO (09:43)
[2022-07-24] MEDS: famotidine 20 mg Tablet PO ×2 (09:43→17:36)
[2022-07-24] MEDS: FUROsemide 40 mg Tablet 80 MG PO ×2 (09:43→17:36)
[2022-07-24] MEDS: doxazosin 4 mg Tablet 8 MG PO ×2 (09:43→17:36)
--- NOTE | 2022-07-24 10:05 | P.PN_ITS ---
Subjective Subjective: no new issues Vitals/I&O/Wt Last Vital Signs Temp 97.6 F 07/24/22 08:00 Pulse 61 07/24/22 08:00 Resp 16 07/24/22 08:00 BP 146/75 07/24/22 08:00 Pulse Ox 99 07/24/22 08:00 O2 Del Method 07/24/22 08:00 O2 Flow Rate 2 07/24/22 07:49 07/23/22 07/24/22 07/24/22 22:59 06:59 14:59 Intake Total 540 / 1280 410 / 410 Balance 540 / -1085 410 / 410 Weight last 48 hrs Weight 113.307 kg Weight 111.7 kg Weight 112.627 kg Physical Exam Const: COMMON NORMALS: no acute distress and alert Neuro: SENSORIUM/ORIENTATION: Yes alert Data : 07/24/22 04:35 07/24/22 04:35 Other Labs: random vanco 13 (<24h after dose) Micro: Microbiology 07/23/22 05:30 MRSA Culture - Final Nose 07/22/22 13:05 Blood Culture - Preliminary Blood NEGATIVE TO DATE 07/22/22 13:00 Blood Culture - Preliminary Blood NEGATIVE TO DATE 07/21/22 17:22 Anaerobic Culture - Preliminary Foot - Wound 07/21/22 12:30 Blood Culture - Preliminary Blood Coag negative Staphylococcus A&P Assessment and plan (1) ESRD (end stage renal disease): seen via telehealth with assistance of RN at bedside Status: Acute Plan 1. ESRD, HD T/Th/S via right IJ tunneled HD catheter 2. Cellulitis, BC to date no growth, on zosyn and vancomycin. PVD, recurrent leg infections, BKA planned for Monday 3. Anemia, iron replete, getting epogen at dialysis, Hb stable 4. Fluid overload, improved 5. Hypertension, well-controlled on current regimen Recommend: Continue HD T/Th/S Continue epogen at Dialysis. Recommend increasing vancomycin dose if it is to be continued, redose preop, then either 1500 mg QHD or consider 1000 mg daily with repeat level. Attestations Medical Necessity Statement*: see above Time Spent in Patient Care: 16 - 35 minutes Coding Level of Care Code Acute Survey Questionnaire Designer for g Fwd Diagnoses ESRD (end stage renal disease) N18.6
--- NOTE | 2022-07-24 13:07 | PM.PN ---
Subjective Subjective: Patient seen and examined. No new complaints Vitals/I&O/Wt Last Vital Signs Temp 97.5 F L 07/24/22 20:00 Pulse 62 07/24/22 20:00 Resp 18 07/24/22 20:00 BP 141/63 07/24/22 20:00 Pulse Ox 100 07/24/22 20:00 O2 Del Method 07/24/22 20:00 O2 Flow Rate 2 07/24/22 20:00 07/24/22 07/24/22 07/24/22 06:59 14:59 22:59 Intake Total 410 / 410 290 / 700 Balance 410 / 410 290 / 700 Weight last 48 hrs Weight 249 lb 12.8 oz Weight 246 lb 4.101 oz Weight 248 lb 4.8 oz Physical Exam Narrative: General: No acute distress, awake alert and oriented x3 Extremities: Lymphedema right lower extremity with some cellulitis Data : 07/24/22 04:35 07/25/22 04:24 Micro: Microbiology 07/21/22 17:22 Wound Culture - Preliminary Foot Right Staphylococcus aureus Klebsiella oxytoca 07/21/22 17:22 Anaerobic Culture - Preliminary Foot - Wound 07/23/22 05:30 MRSA Culture - Final Nose A&P Assessment and plan (1) Acute osteomyelitis of right calcaneus: Status: Acute Plan To OR tomorrow for Right Below knee Amputation The risks and benefits of the procedure, including but not limited to, bleeding, infection, wound dehiscence, need for more proximal amputation, scar, numbness, pain, poor wound healing, were explained to the patient. She is understanding of the risks and wishes to proceed. Attestations Medical Necessity Statement*: Patient will need several more days in the hospital as she is undergoing below-knee amputation tomorrow Coding Level of Care Code Acute Lettuce Cutter for Gregorio Thompson Diagnoses Acute osteomyelitis of right calcaneus M86.171
--- NOTE | 2022-07-24 13:38 | PM.PN ---
Subjective Subjective: No acute events overnight. Today morning seen in the room with at bedside. Patient complaining of generalized itching. States he had similar itching after antibiotics in the past as well. Got relief with Benadryl. Denies any nausea, vomiting, headache. States diarrhea has reduced and frequency has reduced as well. Vitals/I&O/Wt Last Vital Signs Temp 97.5 F L 07/24/22 11:53 Pulse 93 07/24/22 11:53 Resp 18 07/24/22 11:53 BP 159/93 07/24/22 11:53 Pulse Ox 99 07/24/22 11:53 O2 Del Method 07/24/22 11:53 O2 Flow Rate 2 07/24/22 07:49 07/23/22 07/24/22 07/24/22 22:59 06:59 14:59 Intake Total 540 / 1280 410 / 410 Balance 540 / -1085 410 / 410 Weight last 48 hrs Weight 113.307 kg Weight 111.7 kg Weight 112.627 kg Physical Exam Narrative: General: No acute distress, AO x3 HEENT: PERRLA, pupils bilaterally equal and reactive Chest: Normal vesicular breath sounds, no added sounds, equal good air entry bilaterally CVS: S1-S2 regular, no murmurs, no tachycardia, no gallops, no rubs Abdomen: Soft, mild tenderness in right upper quadrant, Zazueta sign negative, no organomegaly, bowel sounds present Neuro: No focal deficits, no facial deformity, AO x3, power 5/5 in all limbs Extremities: Left BKA, right lymphedema present, Skin warm, moist to touch, less warm and less red than yesterday. Open pressure he ulcer present on the right side with pink base, surrounding skin whitish in color with mild white-colored base without any fluctuance. Data : 07/24/22 04:35 07/24/22 04:35 Micro: Microbiology 07/21/22 17:22 Anaerobic Culture - Preliminary Foot - Wound 07/23/22 05:30 MRSA Culture - Final Nose 07/22/22 13:05 Blood Culture - Preliminary Blood NEGATIVE TO DATE 07/22/22 13:00 Blood Culture - Preliminary Blood NEGATIVE TO DATE 07/21/22 12:30 Blood Culture - Preliminary Blood Coag negative Staphylococcus A&P Assessment and plan (1) C. difficile diarrhea: Status: Acute (2) Sepsis: Ruled in with fever, leukocytosis with possible source of cellulitis versus diarrhea Status: Acute (3) Charcot's joint, right ankle and foot: Status: Chronic (4) Abscess of right heel: Status: Suspected (5) Acute osteomyelitis of right calcaneus: Status: Acute (6) Effusion of ankle joint, right: Status: Acute (7) Cellulitis of right lower limb: Status: Acute (8) Non-pressure chronic ulcer of other part of right foot with fat layer exposed: Status: Chronic (9) Lymphedema: Status: Chronic (10) ESRD (end stage renal disease): Status: Acute (11) Protein-energy malnutrition: Status: Chronic Plan 61-year-old female with past medical history of endocarditis, spinal abscess, osteomyelitis needing to be left BKA, history of MRSA and MSSA bacteremia, end-stage renal disease patient on hemodialysis, recent C. difficile presents with fever, ongoing worsening diarrhea for last 1 week and missing dialysis for last 2 sessions along with open pressure heel ulcer on the right foot. Sepsis: As above. Most likely secondary to C. difficile colitis along with possible abscess and osteomyelitis of the right calcaneum and right heel. Cellulitis less likely. Blood cultures from admission 1 out of 4 bottles from dialysis port positive for GPC. Stool studies positive for C. difficile colitis. No colitis on CT abdomen pelvis. Given previous culture history for now continue vancomycin and Zosyn. Repeat blood cultures both empirically and port. Follow-up blood cultures. 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 Last time patient was on Dificid. Vancomycin 500 mg p.o. 4 times daily. Patient would most likely need slow taper over next 28 days as an outpatient. Care discussed in detail with Dr. Santana from podiatry. After discussion with the family he recommends BKA. Care discussed in detail with Dr. Cabrera from surgery. He would like to proceed with possible foot amputation for now and then go forward. Will continue to coordinate plan. Continue antibiotic meanwhile. End-stage renal disease on hemodialysis: Missed dialysis sessions Nephrology recommendations appreciated. Dialysis accordingly. Hypertension: Goal blood pressure less than 140/90 mmHg. Continue multiple home oral medications. Will uptitrate as per goals. History of ischemic cardiomyopathy: Most recent EF 40% History of CAD: Post PCI. No active chest pain. Continue with home dose of aspirin, Coreg, Plavix. Check lipid panel. History of type 2 diabetes mellitus: Controlled. Last A1c 5.2. Repeat A1c. Hold off on insulin sliding scale Analgesia: Tylenol as needed Glycemic control: Not needed. Repeat A1c. Nutrition: Renal dialysis diet CODE STATUS: Full code PUD prophylaxis: Famotidine DVT prophylaxis: Heparin 5000 every 12 hourly Discharge planning: Home with caregiver once medically cleared Continue care at [facility] floor. Plan for today: Follow-up blood cultures. Blood cultures from admission 1 out of 4 bottles from port positive for coag negative staph. Further speciation and sensitivity awaited. Repeat blood cultures so far negative. Continue with IV and oral antibiotics. Benadryl 25 mg p.o. every 6 hourly as needed, hydroxyzine 25 mg 4 times daily as needed. N.p.o. after midnight for the OR tomorrow. This documentation was created by [employer] library cataloging technician software. Every effort was made to ensure accuracy of library cataloging technician. Any obvious errors or omissions should be clarified with the author of the document. Attestations Medical Necessity Statement*: Requires further hospitalization for management of sepsis secondary to C. difficile diarrhea, possible calcaneal osteomyelitis, heal abscess in setting of Charcot's foot while amputation is awaited Time Spent in Patient Care: Greater than 35 minutes Coding Level of Care Code Acute Mud Mixer Operator for g Fwd Diagnoses C. difficile diarrhea A04.72 Sepsis A41.9 Charcot's joint, right ankle and foot M14.671 Abscess of right heel L02.611 Acute osteomyelitis of right calcaneus M86.171 Effusion of ankle joint, right M25.471 Cellulitis of right lower limb L03.115 Non-pressure chronic ulcer of other part of right foot with fat layer exposed L97.512 Lymphedema I89.0 ESRD (end stage renal disease) N18.6 Protein-energy malnutrition E46
[2022-07-24] MEDS: diphenhydrAMINE 25 mg Capsule PO ×2 (14:03→20:31)
[2022-07-24] MEDS: hyDROXYzine 25 mg Capsule PO ×2 (16:32→22:07)
[2022-07-24] MEDS: aspirin 81 mg Chew Tablet PO (20:06)
[2022-07-25] VITALS (29 sets, daily range): BP systolic 94–155; BP diastolic 51–84; PULSE 59–66; RESP 9–19; TEMP 36.3–36.9; O2SAT 92–100
[2022-07-25] MEDS: piperacillin-tazobactam 3.375 GM in sodium chloride 0.9% (plus) 50 ML IV (02:03)
[2022-07-25] MEDS: heparin 5,000 unit/mL INJ 1 mL 5000 UNIT SUBCUT (02:26)
[2022-07-25 05:28] LABS: Alanine Aminotransferase 7 U/L (0-33); Albumin Level 2.9 g/dL (3.5-5.2); Alkaline Phosphatase 176 U/L (35-105); Anion Gap 15.1 (5-19); Aspartate Amino Transferase 10 U/L (0-32); Blood Urea Nitrogen 26 mg/dL (6-20); Calcium 8.7 mg/dL (8.5-10.5); Carbon Dioxide 26 mmol/L (22-29); Chloride 98 mmol/L (98-107); Globulin 4.1 g/dL (1.3-4.6); Glomerular Filtration Rate 8.1 mL/min (90-130); Glucose 100 mg/dL (65-115); Osmolality Calculated 285 mOsm/kg (285-295); Potassium 4.1 mmol/L (3.5-5.1); Sodium 135 mmol/L (136-145); Total Bilirubin 0.6 mg/dL (0.15-1.2)
[2022-07-25] MEDS: levothyroxine 150 mcg Tablet PO (06:02)
[2022-07-25] MEDS: diphenhydrAMINE 25 mg Capsule PO (06:07)
--- NOTE | 2022-07-25 07:49 | PM.PN ---
Subjective Subjective: no new complaints. awaiting rt BKA Medications: Reviewed: Yes Medication Review Details: Current Medications Acetaminophen (Acetaminophen 325 Mg Tablet) 650 mg PO Q6H PRN PRN Reason: Mild/Mod Pain Or Temp >/= 101 Last Admin: 07/21/22 16:25 Dose: 650 mg Albuterol Sulfate (Albuterol 2.5 Mg/0.5 Ml Neb) 2.5 mg INHALATION Q6H.RESP PRN PRN Reason: SHORTNESS OF BREATH Aspirin (Aspirin 81 Mg Chew Tablet) 81 mg PO BEDTIME [facility] Last Admin: 07/24/22 20:06 Dose: 81 mg Carvedilol (Carvedilol 25 Mg Tablet) 25 mg PO BID [facility] Last Admin: 07/24/22 17:36 Dose: 25 mg Clopidogrel Bisulfate (Clopidogrel 75 Mg Tablet) 75 mg PO BEDTIME [facility] Last Admin: 07/21/22 21:36 Dose: 75 mg Diphenhydramine HCl (Diphenhydramine 25 Mg Capsule) 25 mg PO Q6H PRN PRN Reason: ITCHING Last Admin: 07/25/22 06:07 Dose: 25 mg Doxazosin Mesylate (Doxazosin 4 Mg Tablet) 8 mg PO BID [facility] Last Admin: 07/24/22 17:36 Dose: 8 mg Famotidine (Famotidine 20 Mg Tablet) 20 mg PO BID [facility] Last Admin: 07/24/22 17:36 Dose: 20 mg Furosemide (Furosemide 40 Mg Tablet) 80 mg PO BID [facility] Last Admin: 07/24/22 17:36 Dose: 80 mg Heparin Sodium (Porcine) (Heparin 5,000 Unit/Ml Inj 1 Ml) 5,000 unit SUBCUT Q12H [facility] Last Admin: 07/25/22 02:26 Dose: 5,000 unit Hydralazine HCl (Hydralazine 50 Mg Tablet) 50 mg PO BID [facility] Last Admin: 07/24/22 17:36 Dose: 50 mg Hydroxyzine Pamoate (Hydroxyzine 25 Mg Capsule) 25 mg PO QID PRN PRN Reason: ANXIETY Last Admin: 07/24/22 22:07 Dose: 25 mg Piperacillin Sod/Tazobactam (Sod 3.375 gm/ Sodium Chloride) 50 mls @ 12.5 mls/hr IV Q12H [facility]; Protocol Last Infusion: 07/25/22 06:07 Dose: Infused Vancomycin HCl 1,000 mg/ (Sodium Chloride) 250 mls @ 250 mls/hr IV DIALYSIS [facility]; Protocol Last Admin: 07/24/22 16:29 Dose: Not Given Sodium Chloride (Sodium Chloride 0.9%) 1,000 mls @ 0 mls/hr IV .Q0M PRN PRN Reason: hypotension or symptomatic Epoetin Stephan 5,000 unit/ N/A 0.25 mls @ 0 mls/hr IVP ONCE SHELBY Levothyroxine Sodium (Levothyroxine 150 Mcg Tablet) 150 mcg PO QAM [facility] Last Admin: 07/25/22 06:02 Dose: 150 mcg Multivitamins (Q-Cbyovxj-Awbihar C Tablet) 1 each PO DAILY [facility] Last Admin: 07/24/22 09:43 Dose: 1 each Nystatin (Nystatin Cream 30 Gm) 1 applic TOPICAL BID PRN PRN Reason: Rash Last Admin: 07/22/22 10:35 Dose: 1 applic Ondansetron HCl (Ondansetron 2 Mg/Ml Sdv 2 Ml) 4 mg IVP Q8H PRN PRN Reason: vomiting, or N/V if npo Sevelamer Carbonate (Sevelamer 800 Mg Tablet) 1,600 mg PO TIDWM [facility] Last Admin: 07/24/22 17:37 Dose: Not Given Vancomycin HCl (Vancomycin 1,000 Mg Oral Mery (Btl)) 500 mg PO QID [facility] Last Admin: 07/24/22 20:06 Dose: 5 ml Vitals/I&O/Wt Last Vital Signs Temp 98.4 F 07/25/22 04:00 Pulse 59 L 07/25/22 04:00 Resp 16 07/25/22 04:00 BP 139/63 07/25/22 04:00 Pulse Ox 98 07/25/22 04:00 O2 Del Method 07/24/22 20:00 O2 Flow Rate 2 07/24/22 20:00 07/24/22 07/25/22 07/25/22 22:59 06:59 14:59 Intake Total 410 / 820 50 / 870 Balance 410 / 820 50 / 870 Weight last 48 hrs Weight 115.031 kg Weight 113.307 kg Weight 111.7 kg Physical Exam Narrative: comfortable in bed, NARD vs noted heent- nc/at, eomi, anicteric lungs clear b/l heart reg abd soft, nt, nd, + bs ext left BKA, rt red and edema access Rt IJ PC neuro- a,a, o x 3 Data : 07/24/22 04:35 07/25/22 04:24 Micro: Microbiology 07/21/22 17:22 Wound Culture - Preliminary Foot Right Staphylococcus aureus Klebsiella oxytoca 07/21/22 17:22 Anaerobic Culture - Preliminary Foot - Wound A&P Assessment and plan (1) ESRD (end stage renal disease): 61 yr old female 1. ESRD - hd , , Mon- repeat HD in am now 4 hrs, 2k, remove 2l 2. c diff on oral vanco 3. for RT BKA 4. dm care per medicine 5. anemia - repeat iron syudies 6. renal bone mineral metabolism- phos binder 7. bp excellent- dec emds seen and examined w/ RN - telehealth visit -informed consent for HD and telehealth obtained from pt -time spent 30 min Status: Acute Plan as above Attestations Medical Necessity Statement*: esrd, pvd for bka Time Spent in Patient Care: 16 - 35 minutes (>than 50% of time spent in counselling and/or direct pt care on unit). Coding Level of Care Code Acute Corrugator Machine Operator for Gregorio Thompson Diagnoses ESRD (end stage renal disease) N18.6
[2022-07-25] MEDS: doxazosin 4 mg Tablet 8 MG PO (09:42)
[2022-07-25] MEDS: hyDROXYzine 25 mg Capsule PO (09:42)
[2022-07-25] MEDS: famotidine 20 mg Tablet PO (09:43)
[2022-07-25] MEDS: hyDRALAzine 25 mg Tablet PO ×2 (09:43→20:31)
[2022-07-25] MEDS: b-complex-vitamin c Tablet 1 EACH PO (09:43)
[2022-07-25] MEDS: carvedilol 25 mg Tablet PO (09:43)
--- NOTE | 2022-07-25 12:42 | P.ANESASSM_ITS ---
Pre-Anesthetic Assessment Height/Weight: Height 1.68 m Weight 115.031 kg Temp Pulse Resp BP Pulse Ox O2 Del Method O2 Flow Rate 97.6 F 65 16 155/84 95 2 07/25/22 12:00 07/25/22 12:00 07/25/22 12:00 07/25/22 12:00 07/25/22 12:00 07/25/22 12:00 07/24/22 20:00 Preop Diagnosis: Chronic renal failure requiring dialysis. Operation Date: 07/25/22 14:40 Proposed Procedures p BKA (Below Knee Amputation)(Right) - Paolo Cabrera DO Familial anesthetic complications: None Was Beta Cristo taken within 24 hours: N/A Was Clonidine taken within 24 hours: N/A Social No alcohol and No tobacco Exam alert, oriented x 3, clear to auscultation bilaterally and regular rate & rhythm Airway Submandibular: within normal limits Cervical ROM: within normal limits Mallampati: Class I Dentition: full History/ROS No significant complaints Pulmonary Shortness of Breath B/L pleural effusiobn CV/HEM Anemia (Hgb 9.3 ), Coronary Artery Disease, Congestive Heart Failure, Hypertension and Peripheral Vascular Disease Hx of endocarditis LE Duplex 07/22/22 US/[place] [id number] IMPRESSION: 1. Right posterior tibial artery lack of color blood flow. 2. Subcutaneous edema in the lower extremity. 3. Biphasic to monophasic blood flow in the common femoral, superficial femoral, and popliteal arteries reflecting a degree of stenosis. 09/2021 TTE ?CONCLUSIONS ?1. This is technically very difficult and limited study. ?2.? Mildly dilated left ventricular cavity size.? Moderate ?concentric left ventricle hypertrophy.? Severely decreased left ?ventricle systolic function.? Left ventricular ejection fraction ?estimated at 25% Global hypokinesis with regional variation ?(more pronounced in anterior and anteroseptal guardado. ?3.? When compared to previous echocardiogram 06/15/2021, left ?ventricle systolic function may have improved somewhat. Chronic Renal Failure Hepatic None reported Ascites hx GI None reported Recent C. diff infection Metabolic Diabetes Mellitus, Hyperlipidemia, Morbid Obesity and Thyroid Disease Musc/skel None reported Charcot foot MRSA infection hx Osteomyelitis Neuropsych Neuropathy Anesthetic Plan ASA status: 3 Anesthesia: Anesthesia Evaluation, General and Regional (specify below) (Popliteal and adductor canal blocks for post op pain control) Other: We discussed risk and benefits of general anesthesia including PONV, sore throat (sometimes severe), corneal abrasion, positioning and peripheral nerve injuries, life threatening allergic reaction, post operative ICU admission requiring prolonged intubation, stroke, heart attack, , and rare incidences of recall. Patient consents to proceed with general anesthesia. We discussed risk and benefits of nerve block for post op pain control including management of pain and titration of pain medications as signs/symptoms of nerve block wearing off begin to appear and/or prior bed. We discussed risk of failed nerve block, vascular injury or other vital structure injury, abscess/infection, LAST, and nerve injury. Plan general with popliteal and adductor canal blocks for post op pain control. Risk of > 500 ml blood loss (7ml/kg in children): No Medications/Allergies Home Medications Medication Instructions Recorded Confirmed Last Taken Type [employer] #1 ea 01/12/21 07/21/22 07/20/21 Rx carvedilol 25 mg tablet (Coreg) 25 mg PO BID 05/19/21 07/21/22 05/31/22 07:00 History nitroglycerin 0.4 mg sublingual 0.4 mg sublingual Q5M PRN Chest 06/22/21 07/21/22 07/20/21 Rx tablet Pain 30 days #30 tabs gentamicin 0.1 % topical cream 1 applic topical TID PRN Rash 03/10/22 07/21/22 Unknown History nystatin 100,000 unit/gram topical 1 applic topical BID PRN Rash 03/10/22 07/21/22 Unknown History cream Bio 360 Caps 1 cap PO DAILY 05/31/22 07/21/22 05/30/22 History aspirin 81 mg chewable tablet 81 mg PO BEDTIME 05/31/22 07/21/22 05/30/22 History (Children's Aspirin) calcium carbonate 300 mg (750 mg) 2 tab PO PRN 05/31/22 07/21/22 Unknown History chewable tablet (Tums) clopidogrel 75 mg tablet 75 mg PO BEDTIME 05/31/22 07/21/22 05/30/22 History doxazosin 8 mg tablet 8 mg PO BID 05/31/22 07/21/22 05/31/22 History promethazine 25 mg tablet 25 mg PO Q6H PRN Nausea And 05/31/22 07/21/22 Unknown History Vomiting hydralazine 50 mg tablet 50 mg PO BID #60 tabs 07/11/22 07/21/22 Unknown Rx levothyroxine 150 mcg tablet 150 mcg PO QAM #90 tabs 07/15/22 07/21/22 Unknown Rx (Euthyrox) furosemide 80 mg tablet (Lasix) 120 mg PO BID 07/21/22 07/21/22 Unknown History Allergies Allergy/AdvReac Type Severity Reaction Status Date / Time Iodinated Contrast Media Allergy ALGY-Hives Verified 07/21/22 13:06 Current Medications Generic Name Dose Route Start Last Admin Trade Name Curtisq PRN Reason Stop Dose Admin Acetaminophen 650 mg 07/21/22 15:14 07/21/22 16:25 Acetaminophen 325 Mg Tablet PO 650 mg Q6H PRN Administration Mild/Mod Pain Or Temp >/= 101 Aspirin 81 mg 07/21/22 21:00 07/24/22 20:06 Aspirin 81 Mg Chew Tablet PO 81 mg BEDTIME SHELBY Administration Carvedilol 25 mg 07/21/22 18:00 07/25/22 09:43 Carvedilol 25 Mg Tablet PO 25 mg BID SHELBY Administration Clopidogrel Bisulfate 75 mg 07/21/22 21:00 07/21/22 21:36 Clopidogrel 75 Mg Tablet PO 75 mg BEDTIME SHELBY Administration Diphenhydramine HCl 25 mg 07/24/22 13:37 07/25/22 06:07 Diphenhydramine 25 Mg Capsule PO 25 mg Q6H PRN Administration ITCHING Doxazosin Mesylate 8 mg 07/21/22 18:00 07/25/22 09:42 Doxazosin 4 Mg Tablet PO 8 mg BID SHELBY Administration Famotidine 20 mg 07/21/22 18:00 07/25/22 09:43 Famotidine 20 Mg Tablet PO 20 mg BID SHELBY Administration Heparin Sodium (Porcine) 5,000 unit 07/21/22 15:14 07/25/22 02:26 Heparin 5,000 Unit/Ml Inj 1 Ml SUBCUT 5,000 unit Q12H SHELBY Administration Hydralazine HCl 25 mg 07/25/22 09:00 07/25/22 09:43 Hydralazine 25 Mg Tablet PO 25 mg BID@0900,2100 SHELBY Administration Hydroxyzine Pamoate 25 mg 07/24/22 13:37 07/25/22 09:42 Hydroxyzine 25 Mg Capsule PO 25 mg QID PRN Administration ANXIETY Piperacillin Sod/Tazobactam 50 mls @ 12.5 mls/hr 07/21/22 17:00 07/25/22 06:07 Sod 3.375 gm/ Sodium Chloride IV Infused Q12H SHELBY Infusion Protocol Vancomycin HCl 1,000 mg/ 250 mls @ 250 mls/hr 07/21/22 15:45 07/24/22 16:29 Sodium Chloride IV Not Given [facility]IAL[facility] Protocol Levothyroxine Sodium 150 mcg 07/22/22 06:00 07/25/22 06:02 Levothyroxine 150 Mcg Tablet PO 150 mcg QAM SHELBY Administration Multivitamins 1 each 07/21/22 11:00 07/25/22 09:43 P-Ivyoghl-Xmsdmpw C Tablet PO 1 each DAILY SHELBY Administration Nystatin 1 applic 07/21/22 15:14 07/22/22 10:35 Nystatin Cream 30 Gm TOPICAL 1 applic BID PRN Administration Rash Sevelamer Carbonate 1,600 mg 07/21/22 12:00 07/25/22 11:49 Sevelamer 800 Mg Tablet PO Not Given TIDWM SHELBY Vancomycin HCl 500 mg 07/22/22 17:00 07/25/22 09:44 Vancomycin 1,000 Mg Oral Mery (Btl) PO 5 ml QID SHELBY Administration Additional Medication Information Current Medications Acetaminophen (Acetaminophen 325 Mg Tablet) 650 mg PO Q6H PRN PRN Reason: Mild/Mod Pain Or Temp >/= 101 Last Admin: 07/21/22 16:25 Dose: 650 mg Albuterol Sulfate (Albuterol 2.5 Mg/0.5 Ml Neb) 2.5 mg INHALATION Q6H.RESP PRN PRN Reason: SHORTNESS OF BREATH Aspirin (Aspirin 81 Mg Chew Tablet) 81 mg PO BEDTIME [facility] Last Admin: 07/24/22 20:06 Dose: 81 mg Carvedilol (Carvedilol 25 Mg Tablet) 25 mg PO BID SHELBY Last Admin: 07/24/22 17:36 Dose: 25 mg Clopidogrel Bisulfate (Clopidogrel 75 Mg Tablet) 75 mg PO BEDTIME [facility] Last Admin: 07/21/22 21:36 Dose: 75 mg Diphenhydramine HCl (Diphenhydramine 25 Mg Capsule) 25 mg PO Q6H PRN PRN Reason: ITCHING Last Admin: 07/25/22 06:07 Dose: 25 mg Doxazosin Mesylate (Doxazosin 4 Mg Tablet) 8 mg PO BID [facility] Last Admin: 07/24/22 17:36 Dose: 8 mg Famotidine (Famotidine 20 Mg Tablet) 20 mg PO BID [facility] Last Admin: 07/24/22 17:36 Dose: 20 mg Furosemide (Furosemide 40 Mg Tablet) 80 mg PO BID [facility] Last Admin: 07/24/22 17:36 Dose: 80 mg Heparin Sodium (Porcine) (Heparin 5,000 Unit/Ml Inj 1 Ml) 5,000 unit SUBCUT Q12H [facility] Last Admin: 07/25/22 02:26 Dose: 5,000 unit Hydralazine HCl (Hydralazine 50 Mg Tablet) 50 mg PO BID [facility] Last Admin: 07/24/22 17:36 Dose: 50 mg Hydroxyzine Pamoate (Hydroxyzine 25 Mg Capsule) 25 mg PO QID PRN PRN Reason: ANXIETY Last Admin: 07/24/22 22:07 Dose: 25 mg Piperacillin Sod/Tazobactam (Sod 3.375 gm/ Sodium Chloride) 50 mls @ 12.5 ml s/hr IV Q12H [facility]; Protocol Last Infusion: 07/25/22 06:07 Dose: Infused Vancomycin HCl 1,000 mg/ (Sodium Chloride) 250 mls @ 250 mls/hr IV [facility]; Protocol Last Admin: 07/24/22 16:29 Dose: Not Given Sodium Chloride (Sodium Chloride 0.9%) 1,000 mls @ 0 mls/hr IV .Q0M PRN PRN Reason: hypotension or symptomatic Epoetin Stephan 5,000 unit/ N/A 0.25 mls @ 0 mls/hr IVP ONCE SHELBY Levothyroxine Sodium (Levothyroxine 150 Mcg Tablet) 150 mcg PO QAM [facility] Last Admin: 07/25/22 06:02 Dose: 150 mcg Multivitamins (R-Tlgomdu-Uhsolcb C Tablet) 1 each PO DAILY [facility] Last Admin: 07/24/22 09:43 Dose: 1 each Nystatin (Nystatin Cream 30 Gm) 1 applic TOPICAL BID PRN PRN Reason: Rash Last Admin: 07/22/22 10:35 Dose: 1 applic Ondansetron HCl (Ondansetron 2 Mg/Ml Sdv 2 Ml) 4 mg IVP Q8H PRN PRN Reason: vomiting, or N/V if npo Sevelamer Carbonate (Sevelamer 800 Mg Tablet) 1,600 mg PO TIDWM [facility] Last Admin: 07/24/22 17:37 Dose: Not Given Vancomycin HCl (Vancomycin 1,000 Mg Oral Mery (Btl)) 500 mg PO QID [facility] Last Admin: 07/24/22 20:06 Dose: 5 ml PFSH Anesthesia Medical History Anemia Chronic kidney disease and blood loss, has previously required transfusion Anemia Aortic valve endocarditis (~04/2020) C. difficile diarrhea CAD (coronary artery disease) Charcot's joint of foot in type 2 diabetes mellitus Congestive heart failure systolic Diabetes Diabetes mellitus type 2, not on medications, HbA1c 10/2021 5.2 Diabetic ulcer of left foot Diabetic ulcer of right foot Diarrhea Difficult intravenous access Epidural abscess (~2017) ESRD (end stage renal disease) previously on peritoneal dialysis currently on hemodialysis History of colon polyps History of MRSA infection spinal abscess 2017 Hyperlipidemia Hypertension Hypothyroidism Ischemic cardiomyopathy EF 05/2020 65% >> 06/2021 15%, 09/2021 25%> 40% (02/01) 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 Severe proximal to mid LAD stenosis. Severe ostial diagonal artery stenosis. 2. Successful revascularization of the LAD with orbital arthrectomy and PCI with JD x 2 including bifurcation stenting of mid LAD and diagonal artery using mini-crush technique (2 stents placed in LAD and 1 in diagonal artery). History of cholecystectomy History of colonoscopy with polypectomy 2017 History of left below knee amputation History of lumbar surgery Due to epidural abscess in March 2018 Peritoneal dialysis catheter in place removal 05/20/21 S/P hemodialysis catheter insertion multiple Family History Mother Cancer Uterine and breast cancer Father Diabetes Other CAD (coronary artery disease) Social History Smoking and tobacco status: never smoked Alcohol intake: current Alcohol intake frequency: holidays/special occasions only Marital status: Data Anesthesia : 07/24/22 04:35 07/25/22 04:24 Short CBC 07/24/22 Range/Units 04:35 WBC 6.1 (4.0-10.0) 10^3/uL Hgb 9.3 L (11.5-15.3) g/dL Hct 30.7 L (37.0-47.0) % MCV 102.3 H (81-99) fl Plt Count 167 (130-400) 10^3/cmm Neut % (Auto) 75.7 % Neut # (Auto) 4.65 (1.8-7.7) 10^3/uL BMP 07/24/22 07/25/22 04:35 04:24 Sodium 134 L 135 L Potassium 3.9 4.1 Chloride 97 L 98 Carbon Dioxide 27 26 BUN 22 H 26 H Creatinine 4.6 H 5.4 H Glucose 104 100 Calcium 8.3 L 8.7 Liver Function 07/24/22 07/25/22 Range/Units 04:35 04:24 Total Bilirubin 0.6 0.6 (0.15-1.2) mg/dL AST 12 10 (0-32) U/L ALT 6 7 (0-33) U/L Alkaline Phosphatase 199 H 176 H (35-105) U/L Albumin 2.8 L 2.9 L (3.5-5.2) g/dL Microbiology 07/21/22 17:22 Wound Culture - Preliminary Foot Right Staphylococcus aureus Klebsiella oxytoca 07/21/22 17:22 Anaerobic Culture - Preliminary Foot - Wound Cardiac Studies: Echocardiogram 01/18/22 Echocardiogram Limited Views 09/28/21 Echocardiogram Ultrasound 04/14/20 Transesophageal Echocardiogram 05/14/20
--- NOTE | 2022-07-25 13:17 | P.OP_ITS ---
Operative Report Date of procedure: August 08, 2022 Pre-op diagnosis: Preop Diagnosis osteomyelitis right foot Preop Diagnosis osteomyelitis right foot Procedure done: Right below-knee amputation Specimens removed/disposition: Right leg and foot Surgeon: Dr. Paolo Cabrera DO Anesthesia: General Estimated blood loss (mL): 750 Complications: None apparent Brief History: This is a very pleasant 61-year-old female who has a history of left below-knee amputation. She has had several chronic infections including a decubitus ulcer on her right calcaneus that appears to have osteomyelitis. Internal medicine and the patient desire right below-knee amputation. The risks and benefits were explained and documented. Procedure: The patient was wheeled to the operative room and placed on the OR table in s upine position. The right lower extremity was inspected prepped and draped in usual sterile fashion. A timeout was performed. All present were in agreement. 10 cm below the tibial plateau this circumference was measured and the anterior two thirds was marked circumferentially. This marking was carried down for one third of the circumferential distance and drawn around posteriorly. This area was incised with a 10 blade scalpel. Dissection was carried down with electrocautery through the dermis and into the subcutaneous tissue. Minor bleeding was stopped with electrocautery. When large arteries and veins were encountered they were tied off with 0 silk. The tibia was then cleaned 2 cm proximally to the skin incision. A saw was used to transect the tibia 2 cm superior to the skin incision. The fibula was similarly transected 1 cm superior to this. Dissection was carried down through the tissues and the specimen was passed off. Once hemostasis was achieved, the posterior fold was then folded over the wound. Fascia and dermis were approximated with 0 and 2-0 Vicryl in an interrupted fashion. Dermis was further approximated with 3-0 Vicryl in an interrupted fashion. Skin was closed with 2-0 nylon in an interrupted vertical mattress fashion. Some rigoberto were placed in between the sutures. Skin was washed and dried. Sterile dressing was applied. Patient tolerated the procedure well. 2 units of PRBCs were given intraoperatively. She required 4 units during and after her left BKA done by previous surgeon.
--- NOTE | 2022-07-25 13:36 | P.PN_ITS ---
Subjective Subjective: No acute events overnight. Patient has remained hemodynamically stable and afebrile. Plan for BKA today. N.p.o. for the procedure. Vitals/I&O/Wt Last Vital Signs Temp 97.3 F L 07/25/22 13:11 Pulse 64 07/25/22 13:11 Resp 16 07/25/22 13:11 BP 145/81 07/25/22 13:11 Pulse Ox 98 07/25/22 13:11 O2 Del Method 07/25/22 13:11 O2 Flow Rate 2 07/24/22 20:00 07/24/22 07/25/22 07/25/22 22:59 06:59 14:59 Intake Total 410 / 820 50 / 870 Balance 410 / 820 50 / 870 Weight last 48 hrs Weight 115.031 kg Weight 113.307 kg Physical Exam Narrative: General: No acute distress, AO x3 HEENT: PERRLA, pupils bilaterally equal and reactive Chest: Normal vesicular breath sounds, no added sounds, equal good air entry bilaterally CVS: S1-S2 regular, no murmurs, no tachycardia, no gallops, no rubs Abdomen: Soft, mild tenderness in right upper quadrant, Zazueta sign negative, no organomegaly, bowel sounds present Neuro: No focal deficits, no facial deformity, AO x3, power 5/5 in all limbs Extremities: Left BKA, right lymphedema present, Skin warm, moist to touch, less warm and less red than yesterday. Open pressure he ulcer present on the right side with pink base, surrounding skin whitish in color with mild white-colored base without any fluctuance. Data : 07/24/22 04:35 07/25/22 04:24 Micro: Microbiology 07/21/22 17:22 Wound Culture - Preliminary Foot Right Staphylococcus aureus Klebsiella oxytoca 07/21/22 17:22 Anaerobic Culture - Preliminary Foot - Wound A&P Assessment and plan (1) C. difficile diarrhea: Status: Acute (2) Sepsis: Ruled in with fever, leukocytosis with possible source of cellulitis versus diarrhea Status: Acute (3) Charcot's joint, right ankle and foot: Status: Chronic (4) Abscess of right heel: Status: Suspected (5) Acute osteomyelitis of right calcaneus: Status: Acute (6) Effusion of ankle joint, right: Status: Acute (7) Cellulitis of right lower limb: Status: Acute (8) Non-pressure chronic ulcer of other part of right foot with fat layer exposed: Status: Chronic (9) Lymphedema: Status: Chronic (10) ESRD (end stage renal disease): Status: Acute (11) Protein-energy malnutrition: Status: Chronic Plan 61-year-old female with past medical history of endocarditis, spinal abscess, osteomyelitis needing to be left BKA, history of MRSA and MSSA bacteremia, end- stage renal disease patient on hemodialysis, recent C. difficile presents with fever, ongoing worsening diarrhea for last 1 week and missing dialysis for last 2 sessions along with open pressure heel ulcer on the right foot. Sepsis: As above. Most likely secondary to C. difficile colitis along with possible abscess and osteomyelitis of the right calcaneum and right heel. Cellulitis less likely. Blood cultures from admission 1 out of 4 bottles from dialysis port positive for GPC. Stool studies positive for C. difficile colitis. No colitis on CT abdomen pelvis. Given previous culture history for now continue vancomycin and Zosyn. Repeat blood cultures both empirically and port. Follow-up blood cultures. 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 Last time patient was on Dificid. Vancomycin 500 mg p.o. 4 times daily. Patient would most likely need slow taper over next 28 days as an outpatient. Care discussed in detail with Dr. Santana from podiatry. After discussion with the family he recommends BKA. Care discussed in detail with Dr. Cabrera from surgery. He would like to proceed with possible foot amputation for now and then go forward. Will continue to coordinate plan. Continue antibiotic meanwhile. End-stage renal disease on hemodialysis: Missed dialysis sessions Nephrology recommendations appreciated. Dialysis accordingly. Hypertension: Goal blood pressure less than 140/90 mmHg. Continue multiple home oral medications. Will uptitrate as per goals. History of ischemic cardiomyopathy: Most recent EF 40% History of CAD: Post PCI. No active chest pain. Continue with home dose of aspirin, Coreg, Plavix. Check lipid panel. History of type 2 diabetes mellitus: Controlled. Last A1c 5.2. Repeat A1c. Hold off on insulin sliding scale Analgesia: Tylenol as needed Glycemic control: Not needed. Repeat A1c. Nutrition: Renal dialysis diet CODE STATUS: Full code PUD prophylaxis: Famotidine DVT prophylaxis: Heparin 5000 every 12 hourly Discharge planning: Home with caregiver once medically cleared Continue care at MedSurg floor. Plan for today: 1 out of 4 bottles from the port negative. 1 out of 4 bottles positive for coag negative staph. High likelihood of contaminant. Repeat blood cultures from 07/22 so far negative. Wound culture positive for MSSA and Klebsiella. For now continue with IV vancomycin and Zosyn. Continue with oral vancomycin. Patient will need a slow taper as an outpatient. Continue with Benadryl as needed. Plan for BKA today. Post BKA we will continue IV antibiotics for 24 more hours. Plan for dialysis tomorrow. This documentation was created by [employer] file drawer finisher software. Every effort was made to ensure accuracy of file drawer finisher. Any obvious errors or omissions should be clarified with the author of the document. Attestations Medical Necessity Statement*: Requires further hospitalization for management of sepsis secondary to C. difficile, calcaneal osteomyelitis, heel abscess while further treatment plan with BKA is sought. Time Spent in Patient Care: Greater than 35 minutes Coding Level of Care Code Acute [employer] for [facility] Fwd Diagnoses C. difficile diarrhea A04.72 Sepsis A41.9 Charcot's joint, right ankle and foot M14.671 Abscess of right heel L02.611 Acute osteomyelitis of right calcaneus M86.171 Effusion of ankle joint, right M25.471 Cellulitis of right lower limb L03.115 Non-pressure chronic ulcer of other part of right foot with fat layer exposed L97.512 Lymphedema I89.0 ESRD (end stage renal disease) N18.6 Protein-energy malnutrition E46
--- NOTE | 2022-07-25 14:07 | W.PM.OPSUD ---
Surgery/Procedure H&P Update DATE OF PROCEDURE: July 25, 2022 DATE H&P PERFORMED: 07/22/22 CHANGES TO PREVIOUS DOCUMENTATION: Needs R BKA PREOP DIAGNOSIS: Chronic renal failure requiring dialysis. PRIMARY INDICATION FOR PROCEDURE: osteomyelitis PLANNED PROCEDURE: Operation Date: 07/25/22 14:40 Proposed Procedures p BKA (Below Knee Amputation)(Right) - Paolo Cabrera DO
--- NOTE | 2022-07-25 14:10 | ANES.PROC ---
Anesthesia Procedures Procedure/Date: 07/25/22 Nerve Block ^: Nerve Block 1: Main Anesthesia: general anesthesia Time Out Performed: Yes Consent: requested by attending/covering physician, from patient, risks and benefits reviewed and patient agrees to proceed Nerve block location: popliteal Anesthesia monitors applied: pulse oximetry and BP cuff Nerve block position: semi sitting Anesthetic Used: ropivicaine 0.5% Amount of anesthesia used (mL): 15 Ultrasound used to: recognize landmarks and other (visualize and ID popliteal nerve) Nerve Stimulator Used?: No Interscalene/Femoral BLK: 4 stimuplex 21 g needle used for position and inplane approach and visualize local anesthetic spread Injection: neg aspiration of heme Patient Tolerated Procedure: well Complications: none Additional Comments: After time out sterile prep, using sterile technique, and using real time US guidance for target selection needle was inserted with real time visualization of needle entry and real time visualization of needle advancement toward intended target. Negative aspiration. LA injected incrementally with negative aspiration every 5 cc and real time US visualization of LA spread throughout procedure. After injecting 15 ml around popliteal the needle was re positioned. Negative aspiration, 1 cc injected, no visualization of spread. Aspirated again as drawing needle back, positive heme. Procedure stopped. Tolerated well. Image(s) saved. Given patient comfort during block and report of prior contralateral BKA w/o blocks we decided to proceed with surgery without additional adductor canal block.
[2022-07-25] MEDS: scopolamine 1.5 Patch 1 PATCH TRANSDERMA (14:11)
[2022-07-25] MEDS: sodium chloride 0.9% 1,000 ML 30 ML IV (14:11)
[2022-07-25 16:08] LABS: Anion Gap 18.3 (5-19); Blood Urea Nitrogen 27 mg/dL (6-20); Calcium 8.1 mg/dL (8.5-10.5); Carbon Dioxide 21 mmol/L (22-29); Chloride 100 mmol/L (98-107); Glomerular Filtration Rate 7.8 mL/min (90-130); Glucose 70 mg/dL (65-115); Osmolality Calculated 284 mOsm/kg (285-295); Potassium 4.3 mmol/L (3.5-5.1); Sodium 135 mmol/L (136-145)
[2022-07-25 16:09] LABS: Hemoglobin 6.8 g/dL (11.5-15.3); Mean Corpuscular HGB Conc 30.9 g/dL (30.0-36.0); Mean Corpuscular Hemoglobin 31.9 pg (28.0-34.0); Mean Corpuscular Volume 103.3 fl (81-99); Mean Platelet Volume 9.8 fL (7.4-10.4); Platelet Count 136 10^3/cmm (130-400); Red Blood Count 2.13 10^6/uL (4.1-5.3); Red Cell Distribution Width 15.3 % (12.1-15.1); White Blood Count 4.3 10^3/uL (4.0-10.0)
--- NOTE | 2022-07-25 17:17 | PM.OP ---
Operative Report Date of procedure: July 25, 2022 Pre-op diagnosis: Preop Diagnosis osteomyelitis right foot Post-op diagnosis: same Procedure done: Right below-knee amputation
--- NOTE | 2022-07-25 17:29 | PM.MISC ---
Miscellaneous Note Purpose of Documentation: Intra op bleeding greater than expected. 2nd PIV, albumin administered intraop along. Type and cross sent, two units ordered intra op, however delay in blood bank processing. Post op VSS on simple mask. Will start blood transfusion ROCKY in PACU.
--- NOTE | 2022-07-25 17:31 | ANE.PACU2 ---
Inpatient post-anesthesia follow up: Vital signs: Temperature 97.7 F Pulse Rate 61 Respiratory Rate 10 Blood Pressure 97/52 Pulse Oximetry 100 Oxygen Delivery Me thod Simple Mask Oxygen Flow Rate 7 Fraction of Inspir ed Oxygen
[2022-07-25 18:02] LABS: Absolute Segmented Neutrophil 3.1 10/cmm (1.6-7.1); Band Neutrophils Absolute 0.1 10^3/cmm (0.0-1.2); Eosinophils 2 %; Lymphocytes 21 %; Monocytes Absolute 0.1 10^3/cmm (0.1-0.6); Segmented Neutrophils 71 %; Total Cells Counted 100 (0-100)
[2022-07-25 18:03] LABS: Anisocytosis 1+; Lymphocytes Absolute 0.9 10^3/cmm (1.2-3.4)
[2022-07-25 18:04] LABS: Absolute Neutrophil 3.1 10^3/cmm (1.4-6.5); Platelet Estimate Normal (Normal)
--- NOTE | 2022-07-25 18:29 | SUR.PHASEI ---
1719 PT TO PACU 12 ON CONTACT ISOLATION, PT AWAKES TO VOICE, PT DENIES PAIN ,AND NAUSEA PT QUICKLY BACK TO SLEEP,MONITOR SR NO ECTOPY NOTED PT RT STUMP ELEVATED, DRESSING LARGE SOFT, D/I LT STUMP WELL HEALED, IV TO LT WRIST WITH NS ON BLOOD TUBING CLAMPED OFF, IV TO RT WRIST PIID AND LT AC PIID, PT ID BRACELET TO LT WRIST , PT ID'D CHECKED X 2 IDENTIFIERS, PT BLOOD BAND TO RT WRIST. PT ON , DR MCKENNA AT BEDSIDE ORDERS RECIEVED TO INFUSE 2 UNITS PRBCS SOON THEY ARE READY.
--- NOTE | 2022-07-25 18:35 | SUR.PHASEI ---
1754 PT AWAKE ALERT REPORT CALLED TO FLOOR PT FAMILY UP TO PT ROOM, LAB CALLED AND BLOOD READY, RN TO LAB TO GET BLOOD AND PT TO FLOOR , HANDOFF AT BEDSIDE, DRESSING UNCHANGED AND IV PATENT, 1804 BLOOD AT BEDSIDE, ASSISTING RN TO START INFUSION, PT AWAKE ALERT TAKING ICE CHIPS. FAMILY AT BEDSIDE,
[2022-07-25] MEDS: HYDROmorphone 1 mg/mL INJ 1 mL IVP ×2 (19:44→22:35)
[2022-07-25] MEDS: aspirin 81 mg Chew Tablet PO (20:30)
[2022-07-26] VITALS (21 sets, daily range): BP systolic 90–113; BP diastolic 44–65; PULSE 66–79; RESP 14–18; TEMP 36–36.7; O2SAT 97–100
[2022-07-26] MEDS: piperacillin-tazobactam 3.375 GM in sodium chloride 0.9% (plus) 50 ML IV ×2 (02:30→14:39)
[2022-07-26] MEDS: heparin 5,000 unit/mL INJ 1 mL 5000 UNIT SUBCUT ×2 (02:30→14:39)
[2022-07-26] MEDS: HYDROmorphone 1 mg/mL INJ 1 mL IVP (02:52)
[2022-07-26] MEDS: ondansetron 2 mg/ML SDV 2 mL 4 MG IVP (03:34)
[2022-07-26 05:16] LABS: Basophils % 0.4 %; Eosinophils % 0.1 %; Hematocrit 27.4 % (37.0-47.0); Hemoglobin 8.7 g/dL (11.5-15.3); Lymphocytes # 0.5 10^3/uL (0.8-4.8); Lymphocytes % 4.9 %; Mean Corpuscular HGB Conc 31.8 g/dL (30.0-36.0); Mean Corpuscular Hemoglobin 31.4 pg (28.0-34.0); Mean Corpuscular Volume 98.9 fl (81-99); Mean Platelet Volume 9.8 fL (7.4-10.4); Monocytes # 0.4 10^3/uL (0.2-0.9); Monocytes % 3.9 %; Neutrophils # 9.58 10^3/uL (1.8-7.7); Neutrophils % 89.2 %; Nucleated Red Blood Cells % 0 %; Platelet Count 165 10^3/cmm (130-400); Red Blood Count 2.77 10^6/uL (4.1-5.3); Red Cell Distribution Width 16.5 % (12.1-15.1); White Blood Count 10.7 10^3/uL (4.0-10.0)
[2022-07-26 05:31] LABS: Alanine Aminotransferase < 5 U/L (0-33); Albumin Level 2.4 g/dL (3.5-5.2); Alkaline Phosphatase 124 U/L (35-105); Anion Gap 19.8 (5-19); Aspartate Amino Transferase 8 U/L (0-32); Blood Urea Nitrogen 31 mg/dL (6-20); Calcium 8.2 mg/dL (8.5-10.5); Carbon Dioxide 20 mmol/L (22-29); Chloride 100 mmol/L (98-107); Globulin 3.4 g/dL (1.3-4.6); Glomerular Filtration Rate 7.3 mL/min (90-130); Glucose 100 mg/dL (65-115); Osmolality Calculated 287 mOsm/kg (285-295); Phosphorus 6.1 mg/dL (2.5-4.5); Potassium 4.8 mmol/L (3.5-5.1); Sodium 135 mmol/L (136-145); Total Bilirubin 0.8 mg/dL (0.15-1.2); Total Protein 5.8 g/dL (6.6-8.7)
[2022-07-26 05:42] LABS: Vancomycin Trough 11.8 ug/mL (10-15)
[2022-07-26] MEDS: levothyroxine 150 mcg Tablet PO (06:15)
[2022-07-26] MEDS: metoclopramide 5 mg/mL SDV 2 mL 10 MG IVP (06:45)
--- NOTE | 2022-07-26 07:18 | P.PN_ITS ---
Subjective Subjective: seen and examined this am. POD #1 s/p RT BKA. had some hypotension, n/v overnight. no sob or vp security or kearney Medications: Reviewed: Yes Medication Review Details: Current Medications Acetaminophen (Acetaminophen 325 Mg Tablet) 650 mg PO Q6H PRN PRN Reason: Mild/Mod Pain Or Temp >/= 101 Last Admin: 07/21/22 16:25 Dose: 650 mg Hydrocodone Bitart/Acetaminophen (Hydrocodone-Acetaminophen 7.5-325 Mg Tablet) 1 tab PO Q4H PRN PRN Reason: MODERATE PAIN Albuterol Sulfate (Albuterol 2.5 Mg/0.5 Ml Neb) 2.5 mg INHALATION Q6H.RESP PRN PRN Reason: SHORTNESS OF BREATH Albuterol Sulfate (Albuterol 2.5 Mg/0.5 Ml Neb) 2.5 mg INHALATION ONCE PRN PRN Reason: WHEEZING Aspirin (Aspirin 81 Mg Chew Tablet) 81 mg PO BEDTIME [facility] Last Admin: 07/25/22 20:30 Dose: 81 mg Carvedilol (Carvedilol 25 Mg Tablet) 25 mg PO BID [facility] Last Admin: 07/25/22 09:43 Dose: 25 mg Clopidogrel Bisulfate (Clopidogrel 75 Mg Tablet) 75 mg PO BEDTIME [facility] Last Admin: 07/21/22 21:36 Dose: 75 mg Dexamethasone (Dexamethasone 4 Mg/Ml Inj) 4 mg IVP Q5M PRN PRN Reason: Nausea unrelieved by Reglan Stop: 07/26/22 17:15 Diphenhydramine HCl (Diphenhydramine 25 Mg Capsule) 25 mg PO Q6H PRN PRN Reason: ITCHING Last Admin: 07/25/22 06:07 Dose: 25 mg Diphenhydramine HCl (Diphenhydramine 50 Mg/Ml Sdv 1ml) 12.5 mg IVP ONCE PRN PRN Reason: NAUSEA Doxazosin Mesylate (Doxazosin 4 Mg Tablet) 8 mg PO BID [facility] Last Admin: 07/25/22 09:42 Dose: 8 mg Famotidine (Famotidine 20 Mg Tablet) 20 mg PO BID [facility] Last Admin: 07/25/22 09:43 Dose: 20 mg Famotidine (Famotidine 20 Mg/2 Ml Inj) 20 mg IVP ONCE PRN PRN Reason: HEARTBURN Fentanyl (Fentanyl 50 Mcg/Ml Inj 2ml) 50 mcg IVP Q10M PRN PRN Reason: Preop Pain Fentanyl (Fentanyl 50 Mcg/Ml Inj 2ml) 100 mcg IVP ONCE PRN PRN Reason: Per anesthesia for block Fentanyl (Fentanyl 50 Mcg/Ml Inj 2ml) 50 mcg IVP Q5M PRN PRN Reason: Pain level 6-10 PACU Phase I Stop: 07/26/22 17:15 Heparin Sodium (Porcine) (Heparin 5,000 Unit/Ml Inj 1 Ml) 5,000 unit SUBCUT Q12H [facility] Last Admin: 07/26/22 02:30 Dose: 5,000 unit Hydralazine HCl (Hydralazine 25 Mg Tablet) 25 mg PO BID@0900,2100 [facility] Last Admin: 07/25/22 20:31 Dose: 25 mg Hydromorphone HCl (Hydromorphone 1 Mg/Ml Inj 1 Ml) 0.5 mg IVP Q10M PRN PRN Reason: Pain level 7-10 PACU Phase I Stop: 07/26/22 17:15 Hydromorphone HCl (Hydromorphone 1 Mg/Ml Inj 1 Ml) 0.25 mg IVP Q10M PRN PRN Reason: Pain level 4-6 PACU Phase I Stop: 07/26/22 17:15 Hydromorphone HCl (Hydromorphone 1 Mg/Ml Inj 1 Ml) 1 mg IVP Q2H PRN PRN Reason: PAIN Last Admin: 07/26/22 02:52 Dose: 1 mg Hydroxyzine Pamoate (Hydroxyzine 25 Mg Capsule) 25 mg PO QID PRN PRN Reason: ANXIETY Last Admin: 07/25/22 09:42 Dose: 25 mg Piperacillin Sod/Tazobactam (Sod 3.375 gm/ Sodium Chloride) 50 mls @ 12.5 mls/hr IV Q12H [facility]; Protocol Last Infusion: 07/26/22 06:33 Dose: Infused Vancomycin HCl 1,000 mg/ (Sodium Chloride) 250 mls @ 250 mls/hr IV DIALYSIS [facility]; Protocol Last Admin: 07/24/22 16:29 Dose: Not Given Sodium Chloride (Sodium Chloride 0.9%) 1,000 mls @ 0 mls/hr IV .Q0M PRN PRN Reason: hypotension or symptomatic Epoetin Stephan 5,000 unit/ N/A 0.25 mls @ 0 mls/hr IVP ONCE [facility] Sodium Chloride (Sodium Chloride 0.9%) 1,000 mls @ 30 mls/hr IV .Q24H [facility] Stop: 07/26/22 13:14 Last Admin: 07/25/22 14:11 Dose: 30 mls/hr Sodium Chloride (Sodium Chloride 0.9%) 500 mls @ 999 mls/hr IV .Q31M PRN PRN Reason: HYPOTENSION Ipratropium [place] (Ipratropium 0.5 Mg/2.5 Ml Neb) 0.5 mg INHALATION ONCE PRN PRN Reason: WHEEZING Levothyroxine Sodium (Levothyroxine 150 Mcg Tablet) 150 mcg PO QAM [facility] Last Admin: 07/26/22 06:15 Dose: 150 mcg Lidocaine HCl (Lidocaine 1% Inj 20 Ml) 0.1 ml INTRADERMA PRN PRN PRN Reason: anesthetic prior to IV start Stop: 07/26/22 13:13 Meperidine HCl (Meperidine 50 Mg/Ml Inj) 12.5 mg IVP Q5M PRN PRN Reason: Shivering PACU Phase I Stop: 07/26/22 17:15 Metoclopramide HCl (Metoclopramide 5 Mg/Ml Sdv 2 Ml) 10 mg IVP Q5M PRN PRN Reason: Nausea unrelieved by Zofran Stop: 07/26/22 17:15 Metoclopramide HCl (Metoclopramide 5 Mg/Ml Sdv 2 Ml) 5 mg IVP Q8H PRN PRN Reason: NAUSEA AND VOMITING Multivitamins (V-Mpwcuew-Nzjisdy C Tablet) 1 each PO DAILY [facility] Last Admin: 07/25/22 09:43 Dose: 1 each Nystatin (Nystatin Cream 30 Gm) 1 applic TOPICAL BID PRN PRN Reason: Rash Last Admin: 07/22/22 10:35 Dose: 1 applic Ondansetron HCl (Ondansetron 2 Mg/Ml Sdv 2 Ml) 4 mg IVP Q8H PRN PRN Reason: vomiting, or N/V if npo Last Admin: 07/26/22 03:34 Dose: 4 mg Ondansetron HCl (Ondansetron 2 Mg/Ml Sdv 2 Ml) 4 mg IVP Q5M PRN PRN Reason: NAUSEA AND VOMITING Ondansetron HCl (Ondansetron 2 Mg/Ml Sdv 2 Ml) 4 mg IVP Q15M PRN PRN Reason: Nausea/Vomiting PACU PHASE II Ondansetron HCl (Ondansetron 2 Mg/Ml Sdv 2 Ml) 4 mg IVP Q5M PRN PRN Reason: Nausea PACU Phase I Stop: 07/26/22 17:15 Sevelamer Carbonate (Sevelamer 800 Mg Tablet) 1,600 mg PO TIDWM [facility] Last Admin: 07/25/22 11:49 Dose: Not Given Vancomycin HCl (Vancomycin 1,000 Mg Oral Mery (Btl)) 500 mg PO QID [facility] Last Admin: 07/25/22 20:32 Dose: 5 ml Vitals/I&O/Wt Last Vital Signs Temp 97.7 F 07/26/22 06:55 Pulse 75 07/26/22 06:55 Resp 18 07/26/22 06:55 BP 104/44 07/26/22 06:55 Pulse Ox 98 07/26/22 04:00 O2 Del Method 07/25/22 19:25 O2 Flow Rate 2 07/25/22 20:00 07/25/22 07/26/22 07/26/22 22:59 06:59 14:59 Intake Total 470 / 470 640 / 1110 Output Total 0 / 0 Balance 470 / 470 640 / 1110 Weight last 48 hrs Weight 110.132 kg Weight 115.031 kg Physical Exam Narrative: comfortable in bed, NARD vs noted heent- nc/at, eomi, anicteric lungs clear b/l heart reg abd soft, nt, nd, + bs ext left BKA - C/D/I, rt BKA stump bandaged HD access Rt IJ PC neuro- a,a, o x 3 Data : 07/26/22 04:56 07/26/22 04:56 Micro: Microbiology 07/21/22 17:22 Anaerobic Culture - Preliminary Foot - Wound 07/21/22 12:30 Blood Culture - Preliminary Blood Staphylococcus epidermidis 07/21/22 17:22 Wound Culture - Preliminary Foot Right Staphylococcus aureus Klebsiella oxytoca A&P Assessment and plan (1) ESRD (end stage renal disease): 61 yr old female 1. ESRD - hd , Th, Sat- HD now 4 hrs, 2k, remove 2l 2. c diff on oral vanco 3. for RT BKA 4. dm care per medicine 5. anemia - repeat iron studies- give GARRETT 6. renal bone mineral metabolism- phos binder, low pth- no binders 7. bp low- d/c alpha- gabbie. hold hydralazine seen and examined w/ RN - telehealth visit -informed consent for HD and telehealth obtained from pt -time spent 25+ min Status: Acute Plan as above Attestations Medical Necessity Statement*: bka, hypotension, anemia, ESRD Time Spent in Patient Care: 16 - 35 minutes (>than 50% of time spent in counselling and/or direct pt care on unit) . Coding Level of Care Code Acute Automotive Shop Foreman for Gregorio Fwkaris Diagnoses ESRD (end stage renal disease) N18.6
[2022-07-26] MEDS: midodrine 5 mg TABLET 10 MG PO (09:34)
--- NOTE | 2022-07-26 09:48 | PC.HD ---
Patient arrived to dialysis room with a BP of 104/44. Upon initiation of trx, her BP dropped and remained low, to 70s-80s systolic. This RN gave 200 mL NSS with no resolution. Per marine radio installer and servicer, another 500 mL NSS given, again with no resolution. Patient reported feeling symptomatic, with pain at her leg/surgical site, achiness, and generally feeling unwell, including lightheadedness. Per marine radio installer and servicer, 12.5G albumin was given via the HD circuit. Again, no change in her pressures was noted. Following her albumin administration, the patient requested an AMA early termination of treatment. Form was signed by patient and treatment was terminated after 2:30 of a 4:00 treatment. After rinsing back blood and terminating dialysis, BP was still marginal at 105/60. Primary RN and marine radio installer and servicer both aware. Per marine radio installer and servicer, plans are to attempt HD again tomorrow; however, patient is stating that she is not willing to receive another treatment before .
[2022-07-26] MEDS: heparin, porcine 1,000 unit/mL INJ 10 mL HE (10:16)
[2022-07-26] MEDS: b-complex-vitamin c Tablet 1 EACH PO (10:17)
[2022-07-26] MEDS: famotidine 20 mg Tablet PO ×2 (10:17→17:53)
[2022-07-26] MEDS: albumin 12.5 GM/50 ML VIAL IV (10:32)
[2022-07-26] MEDS: metoclopramide 5 mg/mL SDV 2 mL IVP (11:02)
--- NOTE | 2022-07-26 13:39 | P.PN_ITS ---
Subjective Subjective: Patient underwent BKA yesterday. As per the charting during BKA she lost quite a lot of blood in received 2 unit of blood transfusion. Could not quantify the amount of blood loss as no charting present. Today morning examination patient comfortably in bed. Blood pressures running on the low normal side. Antihypertensives were withheld. She did tolerate dialysis well today. Vitals/I&O/Wt Last Vital Signs Temp 97.6 F 07/26/22 12:17 Pulse 76 07/26/22 12:17 Resp 14 07/26/22 12:17 BP 90/44 07/26/22 12:17 Pulse Ox 100 07/26/22 12:17 O2 Del Method 07/26/22 08:00 O2 Flow Rate 2 07/26/22 08:00 07/25/22 07/26/22 07/26/22 22:59 06:59 14:59 Intake Total 470 / 470 640 / 1110 1709 / 1709 Output Total 0 / 0 247 / 247 Balance 470 / 470 640 / 1110 1462 / 1462 Weight last 48 hrs Weight 112.3 kg Weight 110.132 kg Weight 115.031 kg Physical Exam Narrative: General: No acute distress, AO x3 HEENT: PERRLA, pupils bilaterally equal and reactive Chest: Normal vesicular breath sounds, no added sounds, equal good air entry bilaterally CVS: S1-S2 regular, no murmurs, no tachycardia, no gallops, no rubs Abdomen: Soft, mild tenderness in right upper quadrant, Zazueta sign negative, no organomegaly, bowel sounds present Neuro: No focal deficits, no facial deformity, AO x3, power 5/5 in all limbs Extremities: Left BKA, right lymphedema present, Skin warm, moist to touch, less warm and less red than yesterday. Open pressure he ulcer present on the right side with pink base, surrounding skin whitish in color with mild white-colored base without any fluctuance. Data : 07/26/22 04:56 07/26/22 04:56 Micro: Microbiology 07/21/22 17:22 Wound Culture - Final Foot Right Staphylococcus aureus Klebsiella oxytoca 07/21/22 08:40 Blood Culture - Final Blood NO GROWTH AFTER 5 DAYS 07/21/22 08:37 Blood Culture - Final Blood NO GROWTH AFTER 5 DAYS 07/21/22 17:22 Anaerobic Culture - Preliminary Foot - Wound 07/21/22 12:30 Blood Culture - Preliminary Blood Staphylococcus epidermidis A&P Assessment and plan (1) Acute blood loss as cause of postoperative anemia: Status: Acute (2) C. difficile diarrhea: Status: Acute (3) Sepsis: Ruled in with fever, leukocytosis with possible source of cellulitis versus diarrhea Status: Acute (4) Charcot's joint, right ankle and foot: Status: Chronic (5) Abscess of right heel: Status: Suspected (6) Acute osteomyelitis of right calcaneus: Status: Acute (7) Effusion of ankle joint, right: Status: Acute (8) Cellulitis of right lower limb: Status: Acute (9) Non-pressure chronic ulcer of other part of right foot with fat layer exposed: Status: Chronic (10) Lymphedema: Status: Chronic (11) ESRD (end stage renal disease): Status: Acute (12) Protein-energy malnutrition: Status: Chronic Plan 61-year-old female with past medical history of endocarditis, spinal abscess, osteomyelitis needing to be left BKA, history of MRSA and MSSA bacteremia, end- stage renal disease patient on hemodialysis, recent C. difficile presents with fever, ongoing worsening diarrhea for last 1 week and missing dialysis for last 2 sessions along with open pressure heel ulcer on the right foot. Sepsis: As above. Most likely secondary to C. difficile colitis along with possible abscess and osteomyelitis of the right calcaneum and right heel. Cellulitis less likely. Blood cultures from admission 1 out of 4 bottles from dialysis port positive for GPC. Stool studies positive for C. difficile colitis. No colitis on CT abdomen pelvis. Given previous culture history for now continue vancomycin and Zosyn. Repeat blood cultures both empirically and port. Follow-up blood cultures. 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 Last time patient was on Dificid. Vancomycin 500 mg p.o. 4 times daily. Patient would most likely need slow taper over next 28 days as an outpatient. Care discussed in detail with Dr. Santana from podiatry. After discussion with the family he recommends BKA. Care discussed in detail with Dr. Cabrera from surgery. He would like to proceed with possible foot amputation for now and then go forward. Will continue to coordinate plan. Continue antibiotic meanwhile. End-stage renal disease on hemodialysis: Missed dialysis sessions Nephrology recommendations appreciated. Dialysis accordingly. Hypertension: Goal blood pressure less than 140/90 mmHg. Continue multiple home oral medications. Will uptitrate as per goals. History of ischemic cardiomyopathy: Most recent EF 40% History of CAD: Post PCI. No active chest pain. Continue with home dose of aspirin, Coreg, Plavix. Check lipid panel. History of type 2 diabetes mellitus: Controlled. Last A1c 5.2. Repeat A1c. Hold off on insulin sliding scale Analgesia: Tylenol as needed Glycemic control: Not needed. Repeat A1c. Nutrition: Renal dialysis diet CODE STATUS: Full code PUD prophylaxis: Famotidine DVT prophylaxis: Heparin 5000 every 12 hourly Discharge planning: Home with caregiver once medically cleared Continue care at [facility]. Plan for today: Follow blood cultures. Repeat d blood cultures from 07/22 so far negative. Continue antibiotics for 24 more hours. Patient will need to continue oral vancomycin as a slow taper as an outpatient. Patient will need to be discharged on 250 mg twice daily for 1 week followed by 250 mg daily for 1 week followed by 125 mg every 48 hours for next 2 to 8 weeks. Hold off on antihypertensives for now. Goal blood pressure less than 140/90 managerial mean over 65. For now hold off on hydralazine and Coreg. Will restart as per blood pressures. Given patient being symptomatic we will transfuse 1 more unit of PRBC today. Monitor CBC daily. Wound dressing as per surgical team. This documentation was created by [employer] program instructor software. Every effort was made to ensure accuracy of program instructor. Any obvious errors or omissions should be clarified with the author of the document. Attestations Medical Necessity Statement*: Requires further hospitalization for management of sepsis secondary to C. difficile, post BKA care, acute blood loss anemia Time Spent in Patient Care: Greater than 35 minutes Coding Level of Care Code Acute Explosive Ordnance Disposal Manager for g Fwd Diagnoses Acute blood loss as cause of postoperative anemia D62 C. difficile diarrhea A04.72 Sepsis A41.9 Charcot's joint, right ankle and foot M14.671 Abscess of right heel L02.611 Acute osteomyelitis of right calcaneus M86.171 Effusion of ankle joint, right M25.471 Cellulitis of right lower limb L03.115 Non-pressure chronic ulcer of other part of right foot with fat layer exposed L97.512 Lymphedema I89.0 ESRD (end stage renal disease) N18.6 Protein-energy malnutrition E46
--- NOTE | 2022-07-26 15:41 | PC.SOCIAL ---
IMM Updated Updated pt on IMM. No questions voiced. Provided pt a copy. Initialed, dated, & timed copy in chart.
--- NOTE | 2022-07-26 15:51 | ANE.PACU2 ---
Inpatient post-anesthesia follow up: Airway intact: Yes Vital signs: Temperature 98.0 F Pulse Rate 75 Respiratory Rate 18 Blood Pressure 94/59 Pulse Oximetry 98 Oxygen Delivery Me thod Room Air Oxygen Flow Rate 2 Fraction of Inspir ed Oxygen Hydration adequate: Yes Nausea and vomiting: No Pain level: 3 Mental status: Baseline
[2022-07-26] MEDS: vancomycin 1,000 MG in sodium chloride 0.9% 250 ML 250 MG IV (17:53)
[2022-07-26] MEDS: HYDROcodone-acetaminophen 7.5-325 mg Tablet 1 TAB PO ×2 (18:13→23:08)
[2022-07-26] MEDS: aspirin 81 mg Chew Tablet PO (20:31)
[2022-07-27] VITALS (9 sets, daily range): BP systolic 92–107; BP diastolic 55–67; PULSE 72–81; RESP 16–17; TEMP 36.6–37; O2SAT 92–100; BMI 40.6
[2022-07-27] MEDS: piperacillin-tazobactam 3.375 GM in sodium chloride 0.9% (plus) 50 ML IV ×2 (02:22→14:32)
[2022-07-27] MEDS: heparin 5,000 unit/mL INJ 1 mL 5000 UNIT SUBCUT ×2 (02:22→14:34)
[2022-07-27 03:26] LABS: Basophils # 0.1 10^3/uL (0.0-0.1); Basophils % 0.6 %; Eosinophils # 0.2 10^3/uL (0.0-0.8); Eosinophils % 1.8 %; Hematocrit 25.2 % (37.0-47.0); Hemoglobin 7.9 g/dL (11.5-15.3); Lymphocytes % 10.7 %; Mean Corpuscular HGB Conc 31.3 g/dL (30.0-36.0); Mean Corpuscular Hemoglobin 30.4 pg (28.0-34.0); Mean Corpuscular Volume 96.9 fl (81-99); Mean Platelet Volume 10.1 fL (7.4-10.4); Monocytes % 10.8 %; Neutrophils # 6.98 10^3/uL (1.8-7.7); Neutrophils % 74.7 %; Nucleated Red Blood Cells % 0 %; Platelet Count 196 10^3/cmm (130-400); Red Cell Distribution Width 18.6 % (12.1-15.1); White Blood Count 9.4 10^3/uL (4.0-10.0)
[2022-07-27 03:44] LABS: Alanine Aminotransferase 6 U/L (0-33); Albumin Level 2.9 g/dL (3.5-5.2); Alkaline Phosphatase 121 U/L (35-105); Anion Gap 16.1 (5-19); Aspartate Amino Transferase 14 U/L (0-32); Blood Urea Nitrogen 23 mg/dL (6-20); Calcium 8.2 mg/dL (8.5-10.5); Carbon Dioxide 24 mmol/L (22-29); Chloride 98 mmol/L (98-107); Globulin 3.2 g/dL (1.3-4.6); Glomerular Filtration Rate 9.1 mL/min (90-130); Glucose 131 mg/dL (65-115); Osmolality Calculated 283 mOsm/kg (285-295); Phosphorus 4.3 mg/dL (2.5-4.5); Potassium 4.1 mmol/L (3.5-5.1); Sodium 134 mmol/L (136-145); Total Bilirubin 0.5 mg/dL (0.15-1.2); Total Protein 6.1 g/dL (6.6-8.7)
[2022-07-27] MEDS: levothyroxine 150 mcg Tablet PO (06:37)
--- NOTE | 2022-07-27 09:09 | PM.PN ---
Subjective Subjective: had difficulty on dialysis. BP dropped yesterday. still swollen, weak, nausea. Medications: Reviewed: Yes Medication Review Details: Current Medications Acetaminophen (Acetaminophen 325 Mg Tablet) 650 mg PO Q6H PRN PRN Reason: Mild/Mod Pain Or Temp >/= 101 Last Admin: 07/21/22 16:25 Dose: 650 mg Hydrocodone Bitart/Acetaminophen (Hydrocodone-Acetaminophen 7.5-325 Mg Tablet) 1 tab PO Q4H PRN PRN Reason: MODERATE PAIN Last Admin: 07/26/22 23:08 Dose: 1 tab Albuterol Sulfate (Albuterol 2.5 Mg/0.5 Ml Neb) 2.5 mg INHALATION Q6H.RESP PRN PRN Reason: SHORTNESS OF BREATH Aspirin (Aspirin 81 Mg Chew Tablet) 81 mg PO BEDTIME [facility] Last Admin: 07/26/22 20:31 Dose: 81 mg Carvedilol (Carvedilol 12.5 Mg Tablet) 12.5 mg PO BID [facility] Last Admin: 07/26/22 10:19 Dose: Not Given Clopidogrel Bisulfate (Clopidogrel 75 Mg Tablet) 75 mg PO BEDTIME [facility] Last Admin: 07/21/22 21:36 Dose: 75 mg Diphenhydramine HCl (Diphenhydramine 25 Mg Capsule) 25 mg PO Q6H PRN PRN Reason: ITCHING Last Admin: 07/25/22 06:07 Dose: 25 mg Famotidine (Famotidine 20 Mg Tablet) 20 mg PO BID [facility] Last Admin: 07/26/22 17:53 Dose: 20 mg Heparin Sodium (Porcine) (Heparin 5,000 Unit/Ml Inj 1 Ml) 5,000 unit SUBCUT Q12H [facility] Last Admin: 07/27/22 02:22 Dose: 5,000 unit Hydralazine HCl (Hydralazine 25 Mg Tablet) 25 mg PO BID@0900,2100 [facility] Last Admin: 07/25/22 20:31 Dose: 25 mg Hydroxyzine Pamoate (Hydroxyzine 25 Mg Capsule) 25 mg PO QID PRN PRN Reason: ANXIETY Last Admin: 07/25/22 09:42 Dose: 25 mg Piperacillin Sod/Tazobactam (Sod 3.375 gm/ Sodium Chloride) 50 mls @ 12.5 mls/hr IV Q12H [facility]; Protocol Last Infusion: 07/27/22 06:35 Dose: Infused Vancomycin HCl 1,000 mg/ (Sodium Chloride) 250 mls @ 250 mls/hr IV DIALYSIS [facility]; Protocol Last Infusion: 07/26/22 19:21 Dose: Infused Sodium Chloride (Sodium Chloride 0.9%) 1,000 mls @ 0 mls/hr IV .Q0M PRN PRN Reason: hypotension or symptomatic Epoetin Stephan 5,000 unit/ N/A 0.25 mls @ 0 mls/hr IVP ONCE [facility] Levothyroxine Sodium (Levothyroxine 150 Mcg Tablet) 150 mcg PO QAM [facility] Last Admin: 07/27/22 06:37 Dose: 150 mcg Metoclopramide HCl (Metoclopramide 5 Mg/Ml Sdv 2 Ml) 5 mg IVP Q8H PRN PRN Reason: NAUSEA AND VOMITING Last Admin: 07/26/22 11:02 Dose: 5 mg Multivitamins (D-Bcdwntx-Bqgswdu C Tablet) 1 each PO DAILY [facility] Last Admin: 07/26/22 10:17 Dose: 1 each Nystatin (Nystatin Cream 30 Gm) 1 applic TOPICAL BID PRN PRN Reason: Rash Last Admin: 07/22/22 10:35 Dose: 1 applic Ondansetron HCl (Ondansetron 2 Mg/Ml Sdv 2 Ml) 4 mg IVP Q8H PRN PRN Reason: vomiting, or N/V if npo Last Admin: 07/26/22 03:34 Dose: 4 mg Sevelamer Carbonate (Sevelamer 800 Mg Tablet) 1,600 mg PO TIDWM [facility] Last Admin: 07/26/22 17:54 Dose: Not Given Vancomycin HCl (Vancomycin 1,000 Mg Oral Mery (Btl)) 500 mg PO QID [facility] Last Admin: 07/26/22 20:31 Dose: 5 ml Vitals/I&O/Wt Last Vital Signs Temp 98.2 F 07/27/22 08:00 Pulse 72 07/27/22 08:44 Resp 17 07/27/22 08:44 BP 107/67 07/27/22 08:00 Pulse Ox 95 07/27/22 08:44 O2 Del Method 07/27/22 08:44 O2 Flow Rate 2 07/27/22 04:00 07/26/22 07/27/22 07/27/22 22:59 06:59 14:59 Intake Total 1010 / 2959 290 / 3249 Output Total 0 / 247 Balance 1010 / 2712 290 / 3002 Weight last 48 hrs Weight 114.39 kg Weight 112.3 kg Weight 110.132 kg Physical Exam Narrative: comfortable in bed, NARD vs noted heent- nc/at, eomi, anicteric lungs clear b/l heart reg abd soft, nt, nd, + bs ext left BKA - C/D/I, rt BKA stump bandaged HD access Rt IJ PC neuro- a,a, o x 3 Data : 07/27/22 02:31 07/27/22 02:31 Micro: Microbiology 07/21/22 18:03 Blood Culture - Final Blood NO GROWTH AFTER 5 DAYS 07/21/22 18:03 Blood Culture - Final Blood NO GROWTH AFTER 5 DAYS 07/21/22 17:22 Anaerobic Culture - Preliminary Foot - Wound 07/21/22 17:22 Wound Culture - Final Foot Right Staphylococcus aureus Klebsiella oxytoca 07/21/22 08:40 Blood Culture - Final Blood NO GROWTH AFTER 5 DAYS 07/21/22 08:37 Blood Culture - Final Blood NO GROWTH AFTER 5 DAYS A&P Assessment and plan (1) ESRD (end stage renal disease): 61 yr old female 1. ESRD - hd , Th, Sat -only had 2.5 hrs yesterdya due to hypotension- plan repeat HD in am-HD now 4 hrs, 2k, remove 2l 2. c diff on oral vanco 3. S/P RT BKA 4. dm care per medicine 5. anemia - ferritin 1309- give GARRETT 6. renal bone mineral metabolism- phos binder, low pth- no binders 7. bp low- dec meds 8. mild hyponatremia= normal tsh seen and examined w/ RN - telehealth visit -informed consent for HD and telehealth obtained from pt -time spent 30 min Status: Acute Plan as above Attestations Medical Necessity Statement*: per mecine Time Spent in Patient Care: 16 - 35 minutes (>than 50% of time spent in counselling and/or direct pt care on unit). Coding Level of Care Code Acute Electrical Logging Operator for Chg Fwd Diagnoses ESRD (end stage renal disease) N18.6
[2022-07-27] MEDS: b-complex-vitamin c Tablet 1 EACH PO (09:58)
[2022-07-27] MEDS: famotidine 20 mg Tablet PO ×2 (09:58→17:14)
--- NOTE | 2022-07-27 15:14 | PM.PN ---
Subjective Subjective: In this AM. Patient got 1 unit of blood yesterday. Hemoglobin 7.9 today. It dropped again. Patient feels weak. She is supposed to go for dialysis today. Vitals/I&O/Wt Last Vital Signs Temp 98.2 F 07/27/22 11:49 Pulse 76 07/27/22 11:49 Resp 16 07/27/22 11:49 BP 106/67 07/27/22 11:49 Pulse Ox 96 07/27/22 11:49 O2 Del Method 07/27/22 11:49 O2 Flow Rate 2 07/27/22 08:00 07/27/22 07/27/22 07/27/22 06:59 14:59 22:59 Intake Total 290 / 3249 600 / 600 Output Total 0 / 247 Balance 290 / 3002 600 / 600 Weight last 48 hrs Weight 114.39 kg Weight 112.3 kg Weight 110.132 kg Physical Exam Narrative: General: No acute distress, AO x3 Chest: Normal vesicular breath sounds, no added sounds, equal good air entry bilaterally CVS: S1-S2 regular, no murmurs, no tachycardia, no gallops, no rubs Abdomen: Soft, nontender, obese rounded abdomen. Bowel sounds present Neuro: No focal deficits, no facial deformity, AO x3, power 5/5 in all limbs Extremities: Left BKA, right lymphedema present, Skin warm, moist to touch, less warm and less red than yesterday. Open pressure he ulcer present on the right side with pink base, surrounding skin whitish in color with mild white-colored base without any fluctuance. Data : 07/27/22 02:31 07/27/22 02:31 Micro: Microbiology 07/22/22 13:05 Blood Culture - Final Blood NO GROWTH AFTER 5 DAYS 07/22/22 13:00 Blood Culture - Final Blood NO GROWTH AFTER 5 DAYS 07/21/22 18:03 Blood Culture - Final Blood NO GROWTH AFTER 5 DAYS 07/21/22 18:03 Blood Culture - Final Blood NO GROWTH AFTER 5 DAYS 07/21/22 17:22 Anaerobic Culture - Preliminary Foot - Wound 07/21/22 17:22 Wound Culture - Final Foot Right Staphylococcus aureus Klebsiella oxytoca A&P Assessment and plan (1) Acute blood loss as cause of postoperative anemia: Status: Acute (2) Effusion of ankle joint, right: Status: Acute (3) Acute osteomyelitis of right calcaneus: Status: Acute (4) Abscess of right heel: Status: Suspected (5) C. difficile diarrhea: Status: Acute (6) Cellulitis of right lower limb: Status: Acute (7) Sepsis: Status: Acute (8) ESRD (end stage renal disease): Status: Acute (9) Protein-energy malnutrition: Status: Chronic (10) History of staph infection: Status: Chronic (11) Lymphadenopathy: Status: Acute (12) Charcot's joint, right ankle and foot: Status: Chronic (13) Non-pressure chronic ulcer of other part of right foot with fat layer exposed: Status: Chronic (14) Cellulitis: Status: Acute Plan #Acute blood loss, postop anemia, #Status post right AKA, postop day 2 #Sepsis secondary to C. 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 Blood cultures from admission 1 out of 4 bottles from dialysis port positive for GPC ? Stool studies positive for C. difficile ? Continue vancomycin, Zosyn. Follow-up blood cultures that were repeated ? First recurrence of C. difficile. Continue vancomycin orally slow taper for 28 days. To 50 mg twice daily for 1 week, 250 daily for 1 week, 125 every 48 hours for next 2 to 8 weeks. ? Appreciate recommendations from podiatry, surgery. ? Nephrology consulted. Continue dialysis ? Hold home antihypertensives for now. ? Most recent EF on echo 40%. No active chest pain. Continue home aspirin, Coreg, Plavix, ? A1c 5.2. Hold off on insulin sliding scale for now. Diabetes well controlled ? Repeat blood cultures from 9?9 negative so far. Continue antibiotic for 24 more hours. ? Check CBC every 12 hours. ? Continue wound care. ? Patient would not like to go to rehab at this time and would like to go home with home health. Case management working on it. Patient says her will also help her at home. ? Once hemoglobin is stable and blood pressure is stable patient may be able to discharge home with home health. We will continue to monitor for next 24 to 48 hours. Attestations Medical Necessity Statement*: Continue to monitor patient for next 24 to 48 hours. Once hemoglobin and blood pressure are stable will consider discharge. Coding Level of Care Code Acute Manager Educational for Gregorio Thompson Diagnoses Acute blood loss as cause of postoperative anemia D62 Effusion of ankle joint, right M25.471 Acute osteomyelitis of right calcaneus M86.171 Abscess of right heel L02.611 C. difficile diarrhea A04.72 Cellulitis of right lower limb L03.115 Sepsis A41.9 ESRD (end stage renal disease) N18.6 Protein-energy malnutrition E46 History of staph infection Z86.19 Lymphadenopathy R59.1 Charcot's joint, right ankle and foot M14.671 Non-pressure chronic ulcer of other part of right foot with fat layer exposed L97.512 Cellulitis L03.90
[2022-07-27 15:20] LABS: Basophils % 0.5 %; Eosinophils # 0.3 10^3/uL (0.0-0.8); Eosinophils % 3.5 %; Hematocrit 24.3 % (37.0-47.0); Hemoglobin 7.6 g/dL (11.5-15.3); Lymphocytes # 0.9 10^3/uL (0.8-4.8); Lymphocytes % 10.3 %; Mean Corpuscular HGB Conc 31.3 g/dL (30.0-36.0); Mean Corpuscular Hemoglobin 30.5 pg (28.0-34.0); Mean Corpuscular Volume 97.6 fl (81-99); Mean Platelet Volume 9.4 fL (7.4-10.4); Monocytes # 0.9 10^3/uL (0.2-0.9); Monocytes % 10.3 %; Neutrophils # 6.38 10^3/uL (1.8-7.7); Neutrophils % 73.7 %; Nucleated Red Blood Cells % 0 %; Platelet Count 169 10^3/cmm (130-400); Red Blood Count 2.49 10^6/uL (4.1-5.3); Red Cell Distribution Width 18.6 % (12.1-15.1); White Blood Count 8.7 10^3/uL (4.0-10.0)
[2022-07-27] MEDS: aspirin 81 mg Chew Tablet PO (20:31)
[2022-07-27] MEDS: HYDROcodone-acetaminophen 7.5-325 mg Tablet 1 TAB PO (21:33)
[2022-07-28] VITALS (7 sets, daily range): BP systolic 106–122; BP diastolic 59–75; PULSE 72–79; RESP 16–17; TEMP 36.8–37.2; O2SAT 93–100
[2022-07-28] MEDS: piperacillin-tazobactam 3.375 GM in sodium chloride 0.9% (plus) 50 ML IV ×2 (02:27→14:12)
[2022-07-28] MEDS: heparin 5,000 unit/mL INJ 1 mL 5000 UNIT SUBCUT ×2 (02:28→14:08)
[2022-07-28 04:53] LABS: Basophils % 0.3 %; Eosinophils # 0.3 10^3/uL (0.0-0.8); Eosinophils % 3.8 %; Hematocrit 24.2 % (37.0-47.0); Hemoglobin 7.4 g/dL (11.5-15.3); Lymphocytes # 0.9 10^3/uL (0.8-4.8); Lymphocytes % 10.4 %; Mean Corpuscular HGB Conc 30.6 g/dL (30.0-36.0); Mean Corpuscular Hemoglobin 30.5 pg (28.0-34.0); Mean Corpuscular Volume 99.6 fl (81-99); Mean Platelet Volume 9.9 fL (7.4-10.4); Monocytes # 0.9 10^3/uL (0.2-0.9); Monocytes % 9.6 %; Neutrophils # 6.66 10^3/uL (1.8-7.7); Nucleated Red Blood Cells % 0 %; Platelet Count 178 10^3/cmm (130-400); Red Blood Count 2.43 10^6/uL (4.1-5.3); Red Cell Distribution Width 18.2 % (12.1-15.1)
[2022-07-28 05:14] LABS: Vancomycin Trough 17.3 ug/mL (10-15)
[2022-07-28 05:19] LABS: Magnesium 2.1 mg/dL (1.7-2.3); Phosphorus 4.8 mg/dL (2.5-4.5)
[2022-07-28] MEDS: levothyroxine 150 mcg Tablet PO (06:26)
--- NOTE | 2022-07-28 07:10 | P.PN_ITS ---
Subjective Subjective: feels better. no n/v/f/c/kearney/d. has edema. denies sob Medications: Reviewed: Yes Medication Review Details: Current Medications Acetaminophen (Acetaminophen 325 Mg Tablet) 650 mg PO Q6H PRN PRN Reason: Mild/Mod Pain Or Temp >/= 101 Last Admin: 07/21/22 16:25 Dose: 650 mg Hydrocodone Bitart/Acetaminophen (Hydrocodone-Acetaminophen 7.5-325 Mg Tablet) 1 tab PO Q4H PRN PRN Reason: MODERATE PAIN Last Admin: 07/27/22 21:33 Dose: 1 tab Albuterol Sulfate (Albuterol 2.5 Mg/0.5 Ml Neb) 2.5 mg INHALATION Q6H.RESP PRN PRN Reason: SHORTNESS OF BREATH Aspirin (Aspirin 81 Mg Chew Tablet) 81 mg PO BEDTIME [facility] Last Admin: 07/27/22 20:31 Dose: 81 mg Carvedilol (Carvedilol 12.5 Mg Tablet) 12.5 mg PO BID [facility] Last Admin: 07/26/22 10:19 Dose: Not Given Clopidogrel Bisulfate (Clopidogrel 75 Mg Tablet) 75 mg PO BEDTIME [facility] Last Admin: 07/21/22 21:36 Dose: 75 mg Diphenhydramine HCl (Diphenhydramine 25 Mg Capsule) 25 mg PO Q6H PRN PRN Reason: ITCHING Last Admin: 07/25/22 06:07 Dose: 25 mg Famotidine (Famotidine 20 Mg Tablet) 20 mg PO BID [facility] Last Admin: 07/27/22 17:14 Dose: 20 mg Heparin Sodium (Porcine) (Heparin 5,000 Unit/Ml Inj 1 Ml) 5,000 unit SUBCUT Q 12H [facility] Last Admin: 07/28/22 02:28 Dose: 5,000 unit Hydralazine HCl (Hydralazine 25 Mg Tablet) 25 mg PO BID@0900,2100 [facility] Last Admin: 07/25/22 20:31 Dose: 25 mg Hydroxyzine Pamoate (Hydroxyzine 25 Mg Capsule) 25 mg PO QID PRN PRN Reason: ANXIETY Last Admin: 07/25/22 09:42 Dose: 25 mg Piperacillin Sod/Tazobactam (Sod 3.375 gm/ Sodium Chloride) 50 mls @ 12.5 mls/hr IV Q12H [facility]; Protocol Last Admin: 07/28/22 02:27 Dose: 12.5 mls/hr Vancomycin HCl 1,000 mg/ (Sodium Chloride) 250 mls @ 250 mls/hr IV DIALYSIS [facility]; Protocol Last Admin: 07/27/22 14:45 Dose: Not Given Sodium Chloride (Sodium Chloride 0.9%) 1,000 mls @ 0 mls/hr IV .Q0M PRN PRN Reason: hypotension or symptomatic Epoetin Stephan 5,000 unit/ N/A 0.25 mls @ 0 mls/hr IVP ONCE [facility] Albumin Human (Albumin) 12.5 gm in 50 mls @ 60 mls/hr IV PRN PRN PRN Reason: Hypotension and/or symptomatic Levothyroxine Sodium (Levothyroxine 150 Mcg Tablet) 150 mcg PO QAM [facility] Last Admin: 07/28/22 06:26 Dose: 150 mcg Metoclopramide HCl (Metoclopramide 5 Mg/Ml Sdv 2 Ml) 5 mg IVP Q8H PRN PRN Reason: NAUSEA AND VOMITING Last Admin: 07/26/22 11:02 Dose: 5 mg Multivitamins (F-Qitxqms-Nswrpmp C Tablet) 1 each PO DAILY [facility] Last Admin: 07/27/22 09:58 Dose: 1 each Nystatin (Nystatin Cream 30 Gm) 1 applic TOPICAL BID PRN PRN Reason: Rash Last Admin: 07/22/22 10:35 Dose: 1 applic Ondansetron HCl (Ondansetron 2 Mg/Ml Sdv 2 Ml) 4 mg IVP Q8H PRN PRN Reason: vomiting, or N/V if npo Last Admin: 07/26/22 03:34 Dose: 4 mg Sevelamer Carbonate (Sevelamer 800 Mg Tablet) 1,600 mg PO TIDWM [facility] Last Admin: 07/27/22 17:15 Dose: Not Given Vancomycin HCl (Vancomycin 1,000 Mg Oral Mery (Btl)) 500 mg PO QID [facility] Last Admin: 07/27/22 21:28 Dose: 5 ml Vitals/I&O/Wt Last Vital Signs Temp 98.5 F 07/28/22 03:45 Pulse 78 07/28/22 03:45 Resp 16 07/28/22 03:45 BP 119/70 07/28/22 03:45 Pulse Ox 100 07/28/22 03:45 O2 Del Method 07/28/22 03:45 O2 Flow Rate 2 07/28/22 03:45 07/27/22 07/28/22 07/28/22 22:59 06:59 14:59 Intake Total 410 / 1010 Balance 410 / 1010 Weight last 48 hrs Weight 114.362 kg Weight 114.39 kg Weight 112.3 kg Physical Exam Narrative: comfortable in bed, NARD vs noted heent- nc/at, eomi, anicteric lungs clear b/l heart reg abd soft, nt, nd, + bs ext left BKA - C/D/I, rt BKA stump bandaged HD access Rt IJ PC neuro- a,a, o x 3 Data : 07/28/22 04:00 07/27/22 02:31 Micro: Microbiology 07/21/22 17:22 Anaerobic Culture - Preliminary Foot - Wound 07/22/22 13:05 Blood Culture - Final Blood NO GROWTH AFTER 5 DAYS 07/22/22 13:00 Blood Culture - Final Blood NO GROWTH AFTER 5 DAYS A&P Assessment and plan (1) ESRD (end stage renal disease): 61 yr old female 1. ESRD - hd , , Mon - plan repeat HD now 4 hrs, 2k, remove 2l 2. c diff on oral vanco 3. S/P RT BKA 4. dm care per medicine 5. anemia - ferritin 1309- give GARRETT, would tx 1 u prbc on hd today 6. renal bone mineral metabolism- phos binder, low pth- no binders 7. bp low- dec meds 8. mild hyponatremia= normal tsh seen and examined w/ RN - telehealth visit -informed consent for HD and telehealth obtained from pt -time spent 30 min discussed w/ Dr Stephanie Pyle Status: Acute Plan as above Attestations Medical Necessity Statement*: anemia, esrd, hypotension Time Spent in Patient Care: 16 - 35 minutes (>than 50% of time spent in counselling and/or direct pt care on unit) . Coding Level of Care Code Acute Vest Front Presser for Chg Fwd Diagnoses ESRD (end stage renal disease) N18.6
[2022-07-28] MEDS: heparin, porcine 1,000 unit/mL INJ 10 mL HE (10:26)
[2022-07-28] MEDS: epoetin alfa 10,000 unit/mL INJ 10000 UNIT SUBCUT (10:26)
[2022-07-28] MEDS: famotidine 20 mg Tablet PO ×2 (10:27→17:36)
[2022-07-28] MEDS: b-complex-vitamin c Tablet 1 EACH PO (10:27)
--- NOTE | 2022-07-28 11:03 | XRR_ITS ---
PROCEDURE INFORMATION: Exam: XR Abdomen Exam date and time: 07/28/2022 11:27 AM Age: 61 years old Clinical indication: Bloating; Prior surgery; Surgery type: Numerous per patient TECHNIQUE: Imaging protocol: Radiologic exam of the abdomen. Views: Frontal supine view of the abdomen. 1 View. COMPARISON: CT abdomen pelvis con [id number] 07/21/2022 9:15 AM FINDINGS: Gastrointestinal tract: Partial gas-filled stomach.. A paucity of bowel gas is seen throughout the remainder of the GI tract. No bowel dilation. Evidence of cholecystectomy is seen. Bones/joints: There is osteoarthritis involving the lumbar spine XR/XR KUB portable [id number] IMPRESSION: 1. No acute bowel dilatation or obstruction is seen. 2. Lumbar spine osteoarthritis
[2022-07-28] MEDS: sevelamer 800 mg Tablet 1600 MG PO ×2 (11:24→11:55)
--- NOTE | 2022-07-28 13:22 | PM.PN ---
Subjective Subjective: Seen this morning. Patient will get 1 unit of blood today with dialysis. Discussed with optical glass sawyer as well. He will order Epogen for her. Patient is requesting liquid pain medication as the tablets are hard for her to digest. Otherwise she feels okay. However quite not ready to go home yet. She feels weak overall. Still wanting to go home and not wanting rehab. Vitals/I&O/Wt Last Vital Signs Temp 98.6 F 07/28/22 11:34 Pulse 75 07/28/22 11:34 Resp 16 07/28/22 11:34 BP 107/72 07/28/22 11:34 Pulse Ox 100 07/28/22 07:54 O2 Del Method 07/28/22 07:54 O2 Flow Rate 2 07/28/22 03:45 07/27/22 07/28/22 07/28/22 22:59 06:59 14:59 Intake Total 410 / 1010 50 / 1060 800 / 800 Output Total 1834 / 1834 Balance 410 / 1010 50 / 1060 -1034 / -1034 Weight last 48 hrs Weight 113 kg Weight 114.362 kg Weight 114.39 kg Physical Exam Narrative: General: No acute distress, AO x3 Chest: Normal vesicular breath sounds, no added sounds, equal good air entry bilaterally CVS: S1-S2 regular, no murmurs, no tachycardia, no gallops, no rubs Abdomen: Soft, nontender, obese rounded abdomen. Bowel sounds present Extremities: Left BKA, right mild lymphedema present, Skin warm, moist to touch, less warm and less red than yesterday. Open pressure he ulcer present on the right side with pink base, surrounding skin whitish in color with mild white-colored base without any fluctuance. Data : 07/28/22 04:00 07/27/22 02:31 Micro: Microbiology 07/21/22 17:22 Anaerobic Culture - Preliminary Foot - Wound 07/22/22 13:05 Blood Culture - Final Blood NO GROWTH AFTER 5 DAYS 07/22/22 13:00 Blood Culture - Final Blood NO GROWTH AFTER 5 DAYS A&P Assessment and plan (1) Acute blood loss as cause of postoperative anemia: Status: Acute (2) Effusion of ankle joint, right: Status: Acute (3) Acute osteomyelitis of right calcaneus: Status: Acute (4) Abscess of right heel: Status: Suspected (5) C. difficile diarrhea: Status: Acute (6) Cellulitis of right lower limb: Status: Acute (7) Sepsis: Status: Acute (8) ESRD (end stage renal disease): Status: Acute (9) Protein-energy malnutrition: Status: Chronic (10) History of staph infection: Status: Chronic (11) Lymphadenopathy: Status: Acute (12) Charcot's joint, right ankle and foot: Status: Chronic (13) Non-pressure chronic ulcer of other part of right foot with fat layer exposed: Status: Chronic (14) Cellulitis: Status: Acute Plan #Acute blood loss, postop anemia, #Status post right AKA, postop day 3 #Sepsis secondary to C. 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 Blood cultures from admission 1 out of 4 bottles from dialysis port positive for GPC ? Stool studies positive for C. difficile ? Continue vancomycin, Zosyn. Follow-up blood cultures that were repeated ? First recurrence of C. difficile. Continue vancomycin orally slow taper for 28 days. To 50 mg twice daily for 1 week, 250 daily for 1 week, 125 every 48 hours for next 2 to 8 weeks. ? Appreciate recommendations from podiatry, surgery. ? Nephrology consulted. Continue dialysis ? Hold home antihypertensives for now. ? Most recent EF on echo 40%. No active chest pain. Continue home aspirin, Coreg, Plavix, ? A1c 5.2. Hold off on insulin sliding scale for now. Diabetes well controlled ? Repeat blood cultures from 9?9 negative so far. Continue antibiotic for 24 more hours. ? Check CBC every 12 hours. -Transfuse 1 more unit of blood today. ? Change her pain medications to liquid ? Continue wound care. ? Patient would not like to go to rehab at this time and would like to go home with home health. Case management working on it. Patient says her will also help her at home. ? Once hemoglobin is stable and blood pressure is stable patient may be able to discharge home with home health. We will continue to monitor for next 24 to 48 hours. Attestations Medical Necessity Statement*: Continue to monitor hemoglobin. Hemoglobin dropped again today she is getting another unit of blood. Possible discharge within 24 to 48 hours pending clinical improvement. Coding Level of Care Code Acute Garment Sewing Machine Operator for Chg Fwd Diagnoses Acute blood loss as cause of postoperative anemia D62 Effusion of ankle joint, right M25.471 Acute osteomyelitis of right calcaneus M86.171 Abscess of right heel L02.611 C. difficile diarrhea A04.72 Cellulitis of right lower limb L03.115 Sepsis A41.9 ESRD (end stage renal disease) N18.6 Protein-energy malnutrition E46 History of staph infection Z86.19 Lymphadenopathy R59.1 Charcot's joint, right ankle and foot M14.671 Non-pressure chronic ulcer of other part of right foot with fat layer exposed L97.512 Cellulitis L03.90
--- NOTE | 2022-07-28 14:19 | PC.SOCIAL ---
IMM Updated Updated pt on IMM. No questions voiced. Provided pt a copy. Initialed, dated, & timed copy in chart.
[2022-07-28] MEDS: vancomycin 1,000 MG in sodium chloride 0.9% 250 ML 250 MG IV (16:24)
[2022-07-28] MEDS: HYDROcodone-APAP 7.5-325 mg/15 mL UDC PO (20:49)
[2022-07-28] MEDS: aspirin 81 mg Chew Tablet PO (20:52)
[2022-07-29] VITALS: BP 151/83; PULSE 75; RESP 17; TEMP 36.7; O2SAT 100
[2022-07-29] MEDS: piperacillin-tazobactam 3.375 GM in sodium chloride 0.9% (plus) 50 ML IV ×2 (03:03→14:15)
[2022-07-29] MEDS: heparin 5,000 unit/mL INJ 1 mL 5000 UNIT SUBCUT ×2 (03:04→14:20)
[2022-07-29 03:55] VITALS: BP 134/77; PULSE 76; RESP 17; TEMP 36.7; O2SAT 95
[2022-07-29 05:15] LABS: Basophils # 0.1 10^3/uL (0.0-0.1); Basophils % 0.6 %; Eosinophils # 0.4 10^3/uL (0.0-0.8); Eosinophils % 3.9 %; Hematocrit 27.8 % (37.0-47.0); Hemoglobin 8.5 g/dL (11.5-15.3); Lymphocytes # 0.9 10^3/uL (0.8-4.8); Lymphocytes % 9.4 %; Mean Corpuscular HGB Conc 30.6 g/dL (30.0-36.0); Mean Corpuscular Hemoglobin 30.9 pg (28.0-34.0); Mean Corpuscular Volume 101.1 fl (81-99); Monocytes % 10.3 %; Neutrophils # 7.15 10^3/uL (1.8-7.7); Neutrophils % 73.6 %; Nucleated Red Blood Cells % 0 %; Platelet Count 204 10^3/cmm (130-400); Red Blood Count 2.75 10^6/uL (4.1-5.3); White Blood Count 9.7 10^3/uL (4.0-10.0)
[2022-07-29 05:46] LABS: Alanine Aminotransferase 6 U/L (0-33); Albumin Level 2.9 g/dL (3.5-5.2); Alkaline Phosphatase 138 U/L (35-105); Aspartate Amino Transferase 14 U/L (0-32); Blood Urea Nitrogen 23 mg/dL (6-20); Calcium 8.3 mg/dL (8.5-10.5); Carbon Dioxide 25 mmol/L (22-29); Chloride 98 mmol/L (98-107); Glomerular Filtration Rate 9.3 mL/min (90-130); Glucose 116 mg/dL (65-115); Osmolality Calculated 285 mOsm/kg (285-295); Sodium 135 mmol/L (136-145); Total Bilirubin 0.6 mg/dL (0.15-1.2); Total Protein 6.9 g/dL (6.6-8.7)
[2022-07-29 05:51] VITALS: BMI 40.1
[2022-07-29] MEDS: levothyroxine 150 mcg Tablet PO (06:09)
[2022-07-29 07:24] VITALS: BP 136/79; PULSE 73; RESP 16; TEMP 36.7; O2SAT 95
[2022-07-29 08:48] VITALS: PULSE 75; RESP 18; O2SAT 94
[2022-07-29] MEDS: b-complex-vitamin c Tablet 1 EACH PO (08:48)
[2022-07-29] MEDS: famotidine 20 mg Tablet PO (08:48)
--- NOTE | 2022-07-29 09:14 | P.PN_ITS ---
Subjective Subjective: Patient seen and examined. No new complaints Vitals/I&O/Wt Last Vital Signs Temp 98.1 F 07/29/22 07:24 Pulse 75 07/29/22 08:48 Resp 18 07/29/22 08:48 BP 136/79 07/29/22 07:24 Pulse Ox 94 07/29/22 08:48 O2 Del Method 07/29/22 08:48 O2 Flow Rate 2 07/29/22 00:00 07/28/22 07/29/22 07/29/22 22:59 06:59 14:59 Intake Total 690 / 1970 250 / 2220 50 / 50 Balance 690 / 136 250 / 386 50 / 50 Weight last 48 hrs Weight 249 lb 1.957 oz Weight 249 lb 1.957 oz Weight 252 lb 2 oz Physical Exam Narrative: Incision intact without erythema or exudate Data : 07/29/22 04:47 07/29/22 04:47 Micro: Microbiology 07/21/22 17:22 Anaerobic Culture - Preliminary Foot - Wound Prevotella corporis A&P Assessment and plan (1) Acute osteomyelitis of right calcaneus: Status: Acute (2) Status post below knee amputation of right lower extremity: Status: Acute Plan Daily dressing changes with 4 x 4's and Aba bandage. Surgical stable for discharge. Follow-up in my office in 2 weeks Attestations Medical Necessity Statement*: Further hospitalization per hospitalist Coding Level of Care Code Acute Correction Officer Supervisor for Gregorio Thompson Diagnoses Acute osteomyelitis of right calcaneus M86.171 Status post below knee amputation of right lower extremity Z89.511
--- NOTE | 2022-07-29 09:15 | PM.PN ---
Subjective Subjective: weak, cold. poor appetite. had difficulty w/ hd yesterday. anxious. leg pain by stump site. Medications: Reviewed: Yes Medication Review Details: Current Medications Acetaminophen (Acetaminophen 325 Mg Tablet) 650 mg PO Q6H PRN PRN Reason: Mild/Mod Pain Or Temp >/= 101 Last Admin: 07/21/22 16:25 Dose: 650 mg Hydrocodone Bitart/Acetaminophen (Hydrocodone-Apap 7.5-325 Mg/15 Ml Udc) 15 ml PO Q4H PRN PRN Reason: MODERATE PAIN Last Admin: 07/28/22 20:49 Dose: 15 ml Albuterol Sulfate (Albuterol 2.5 Mg/0.5 Ml Neb) 2.5 mg INHALATION Q6H.RESP PRN PRN Reason: SHORTNESS OF BREATH Aspirin (Aspirin 81 Mg Chew Tablet) 81 mg PO BEDTIME [facility] Last Admin: 07/28/22 20:52 Dose: 81 mg Carvedilol (Carvedilol 12.5 Mg Tablet) 12.5 mg PO BID [facility] Last Admin: 07/26/22 10:19 Dose: Not Given Clopidogrel Bisulfate (Clopidogrel 75 Mg Tablet) 75 mg PO BEDTIME [facility] Last Admin: 07/21/22 21:36 Dose: 75 mg Diphenhydramine HCl (Diphenhydramine 25 Mg Capsule) 25 mg PO Q6H PRN PRN Reason: ITCHING Last Admin: 07/25/22 06:07 Dose: 25 mg Famotidine (Famotidine 20 Mg Tablet) 20 mg PO BID [facility] Last Admin: 07/29/22 08:48 Dose: 20 mg Heparin Sodium (Porcine) (Heparin 5,000 Unit/Ml Inj 1 Ml) 5,000 unit SUBCUT Q12H [facility] Last Admin: 07/29/22 03:04 Dose: 5,000 unit Hydralazine HCl (Hydralazine 25 Mg Tablet) 25 mg PO BID@0900,2100 [facility] Last Admin: 07/25/22 20:31 Dose: 25 mg Hydroxyzine Pamoate (Hydroxyzine 25 Mg Capsule) 25 mg PO QID PRN PRN Reason: ANXIETY Last Admin: 07/25/22 09:42 Dose: 25 mg Piperacillin Sod/Tazobactam (Sod 3.375 gm/ Sodium Chloride) 50 mls @ 12.5 mls/hr IV Q12H [facility]; Protocol Last Infusion: 07/29/22 07:26 Dose: Infused Vancomycin HCl 1,000 mg/ (Sodium Chloride) 250 mls @ 250 mls/hr IV DIALYSIS [facility]; Protocol Last Infusion: 07/28/22 17:24 Dose: Infused Sodium Chloride (Sodium Chloride 0.9%) 1,000 mls @ 0 mls/hr IV .Q0M PRN PRN Reason: hypotension or symptomatic Epoetin Stephan 5,000 unit/ N/A 0.25 mls @ 0 mls/hr IVP ONCE [facility] Albumin Human (Albumin) 12.5 gm in 50 mls @ 60 mls/hr IV PRN PRN PRN Reason: Hypotension and/or symptomatic Levothyroxine Sodium (Levothyroxine 150 Mcg Tablet) 150 mcg PO QAM [facility] Last Admin: 07/29/22 06:09 Dose: 150 mcg Metoclopramide HCl (Metoclopramide 5 Mg/Ml Sdv 2 Ml) 5 mg IVP Q8H PRN PRN Reason: NAUSEA AND VOMITING Last Admin: 07/26/22 11:02 Dose: 5 mg Multivitamins (E-Ajtrxzf-Dknjlld C Tablet) 1 each PO DAILY [facility] Last Admin: 07/29/22 08:48 Dose: 1 each Nystatin (Nystatin Cream 30 Gm) 1 applic TOPICAL BID PRN PRN Reason: Rash Last Admin: 07/22/22 10:35 Dose: 1 applic Ondansetron HCl (Ondansetron 2 Mg/Ml Sdv 2 Ml) 4 mg IVP Q8H PRN PRN Reason: vomiting, or N/V if npo Last Admin: 07/26/22 03:34 Dose: 4 mg Sevelamer Carbonate (Sevelamer 800 Mg Tablet) 1,600 mg PO TIDWM [facility] Last Admin: 07/29/22 08:50 Dose: Not Given Vancomycin HCl (Vancomycin 1,000 Mg Oral Mery (Btl)) 500 mg PO QID [facility] Last Admin: 07/29/22 08:49 Dose: 5 ml Vitals/I&O/Wt Last Vital Signs Temp 98.1 F 07/29/22 07:24 Pulse 75 07/29/22 08:48 Resp 18 07/29/22 08:48 BP 136/79 07/29/22 07:24 Pulse Ox 94 07/29/22 08:48 O2 Del Method 07/29/22 08:48 O2 Flow Rate 2 07/29/22 00:00 07/28/22 07/29/22 07/29/22 22:59 06:59 14:59 Intake Total 690 / 1970 250 / 2220 50 / 50 Balance 690 / 136 250 / 386 50 / 50 Weight last 48 hrs Weight 113 kg Weight 113 kg Weight 114.362 kg Physical Exam Narrative: comfortable in bed, NARD vs noted heent- nc/at, eomi, anicteric lungs clear b/l heart reg abd soft, nt, nd, + bs ext left BKA, rt BKA stump bandaged HD access Rt IJ PC neuro- a,a, o x 3 Data : 07/29/22 04:47 07/29/22 04:47 Micro: Microbiology 07/21/22 17:22 Anaerobic Culture - Preliminary Foot - Wound Prevotella corporis A&P Assessment and plan (1) ESRD (end stage renal disease): 61 yr old female 1. ESRD - hd , , Sat - plan repeat HD in am, 3 hr 2k, remove 1.5l 2. c diff on oral vanco 3. S/P RT BKA- iv vanco 4. dm care per medicine 5. anemia - ferritin 1309- give KENDALL, s/p 1 u prbc on hd yesterday -kendall 6. renal bone mineral metabolism- phos binder, low pth- no binders 7. bp stable 8. mild hyponatremia= normal tsh seen and examined w/ RN - telehealth visit -informed consent for HD and telehealth obtained from pt -time spent 25 + min Status: Acute Plan as above Attestations Medical Necessity Statement*: per medicine Time Spent in Patient Care: 16 - 35 minutes (>than 50% of time spent in counselling and/or direct pt care on unit). Coding Level of Care Code Acute Hearing Examiner for Chg Fwd Diagnoses ESRD (end stage renal disease) N18.6
--- NOTE | 2022-07-29 11:44 | CTR_ITS ---
PROCEDURE INFORMATION: Exam: CT Abdomen And Pelvis Without Contrast Exam date and time: 07/29/2022 1:55 PM Age: 61 years old Clinical indication: Abdominal pain; Generalized; Patient HX: Abdomen pain, diarrhea, c-diff; Additional info: Bloating, nausea, c. Diff diarrhea, R/O colitis? TECHNIQUE: Imaging protocol: Computed tomography of the abdomen and pelvis without contrast. Radiation optimization: All CT scans at this facility use at least one of these dose optimization techniques: automated exposure control; mA and/or kV adjustment per patient size (includes targeted exams where dose is matched to clinical indication); or iterative reconstruction. COMPARISON: CT abdomen pelvis wo con [id number] 07/21/2022 9:15 AM RADIATION DOSE METRICS: Total DLP (mGy-cm): 1283.62 FINDINGS: Tubes, catheters and devices: Possible central venous catheter with tip in the right atrium. Lungs: Bibasilar atelectasis which is stable. Left pleural effusion and left base atelectasis appears stable. Liver: Enlarged liver 240 mm. Gallbladder and bile ducts: Cholecystectomy clips. Pancreas: Stable atrophy. No ductal dilation. Spleen: Normal. No splenomegaly. Adrenal glands: Normal. No mass. Kidneys and ureters: Normal. No hydronephrosis. Stomach and bowel: The colon itself demonstrates no evidence of a shaggy or abnormal appearance. Appendix: No evidence of appendicitis. Intraperitoneal space: Again there is diffuse ascites. Vasculature: Questionable aortic surgery. Severe vascular calcifications again seen. Lymph nodes: Unremarkable. No enlarged lymph nodes. Urinary bladder: Unremarkable as visualized. Reproductive: Unremarkable as visualized. Bones/joints: Stable spine. Soft tissues: Diffuse soft tissue edema. CT/CT abdomen pelvis wo con [id number] IMPRESSION: Essentially no change since the previous examination without evidence of colitis.
[2022-07-29 12:00] VITALS: BP 144/83; PULSE 74; RESP 16; TEMP 36.8; O2SAT 93
[2022-07-29] MEDS: epoetin alfa 1000 Unit/0.05 mL (ESRD) 20000 UNIT SUBCUT (12:09)
[2022-07-29 12:20] LABS: Base Excess VBG 3.5 mmol/L (-3.0-3.0); Blood Gas Operator Identificat BROMA; Blood Gas Sample Site Not specified; Blood Gas Sample Type Venous; HCO3 VBG 28.4 mmol/L (24-28); PCO2 VBG 44.3 mmHg (41-51); PO2 VBG 28.2 mmHg (25-40); Venous Blood Gas Hematocrit 27.7 % (37-47); pH VBG 7.42 (7.32-7.42)
[2022-07-29 12:42] LABS: Lactate (Lactic Acid level) 0.7 mmol/L (0.5-2.2)
[2022-07-29 15:58] VITALS: BP 148/79; PULSE 77; RESP 16; TEMP 36.5; O2SAT 99
--- NOTE | 2022-07-29 16:29 | PM.DCS ---
Discharge Providers Date of Admission: 07/21/22 11:41 Date of Discharge: July 29, 2022 Attending Provider at Admission: Angel Baez MD Attending Provider at Discharge: Camille Pyle MD Primary Care Provider: Karen Bear MD Diagnoses at Discharge Discharge Diagnosis (1) Acute osteomyelitis of right calcaneus: Status: Acute (2) Status post below knee amputation of right lower extremity: Status: Acute Reason for Visit Reason for Visit: fever, n/v/d Brief History: Alesia Shaw is a 61 year old female with past medical history of CAD, multiple PCI most recently in June 2021 with JD to mid LAD, diagonal, ischemic cardiomyopathy with last known EF of 40 % in January 2022 which have improved from 25% in September 2021, and severe disease on hemodialysis, hypertension, type 2 diabetes mellitus, chronic leg swelling, left BKA in December 2020, history of MRSA spinal abscess in 2017, 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 difficile on oral vancomycin. Patient presented to the ER today because of worsening diarrhea, nausea and vomiting over the last 1 month but more so over last 1 week associated with high-grade fevers since last 1 week going as high as 103 overnight last night.? Patient states because she has been feeling worse she has missed her last 2 sessions of dialysis.? She states her last dialysis session was last Monday which is 07/16.? She complains of generalized myalgias.? She still has a tunneled catheter present in her right hemithorax to which she gets dialysis.? States has not been approved for AV fistula for now. Hospital Course Hospital Course Patient was admitted for sepsis secondary to C. difficile colitis along with cellulitis and osteomyelitis of the heel. Patient underwent BKA with surgery. She did have a lot of blood loss during procedure however unable to quantify. She did receive 2 units of transfusion 07/25/2011/01/2022. She also received another unit on 07/26 2022. Subsequently received another unit on 07/28 2022. Blood pressure has been soft during hospital stay. However closer to discharge it is now in normal range around 148 systolic for her. Surgery has cleared her for discharge at this point to follow-up outpatient within [address] Cabrera has provided wound care instructions in his note. Patient is to change dressing every day and cover with Aba bandage. Patient also received IV antibiotics vancomycin with dialysis and Zosyn since 07/21 up until today 07/29. Patient will need an extended slow course taper of oral vancomycin given second recurrence of C. difficile. Patient will need to follow-up with infectious disease clinic as an outpatient within a week of discharge. At that point further changes to medications can be made. Patient has been afebrile and has complained of a little bit of abdominal soreness with taking so many medications. I have switched some of her medications to liquid which has helped her. She is to continue famotidine daily. Patient has also been ordered Epogen by nephrology to have with dialysis. Hemoglobin is finally stable at 8.5 today. Patient was not interested in going to rehab at this time and wanted to go home. She stated that she has been to rehab before and she felt it did not help her in the past. Her will be helping her at home. She did complain of some bloating for which a KUB was repeated which did not show any obstructions and a CT abdomen pelvis was done today for her complaint of bloating. There were no changes seen on there. She does have minimal ascites and stable left small pleural effusion. Patient is on room air and saturating well. Blood pressure 1 4080 range. We will hold her Plavix until she repeats a CBC in 3 to 4 days. We will hold her Lasix and carvedilol until patient is seen by her primary care doctor outpatient. She will slowly resume those medications. Meds to beds were also set up for her as per her request. All of this was discussed with the patient at discharge and she is in agreement. She has been advised to return to the ER should she develop a fever, shortness of breath, lightheadedness, abdominal pain, bloody diarrhea or any other symptoms. 42-day supply of vancomycin has been sent to pharmacy by Dr. Mckenna when he saw her 3 days ago. We will fill that prescription and give that to the patient. Of note patient's 1 out of 4 blood culture was positive for gram-positive cocci which is staph epidermidis. This is most likely a contaminant. Repeat cultures from 07/22-day after admission have been so far negative. This documentation was created by [employer] compatibility test engineer software. Every effort was made to ensure accuracy of compatibility test engineer. Any obvious errors or omissions should be clarified with the author of the document. Physical Exam Narrative: General: No acute distress, AO x3 Chest: Normal vesicular breath sounds, no added sounds, equal good air entry bilaterally CVS: S1-S2 regular, no murmurs, no tachycardia, no gallops, no rubs Abdomen: Soft, nontender, obese rounded abdomen. Bowel sounds present Extremities: Left BKA, right sided stump is bandaged. Surgery has been evaluating the wound. Dr. Cabrera will see her in his office in 2 weeks. Discharge Data Studies Completed and Pending Completed Studies During Hospitalization Category Date Time Status CT abdomen pelvis wo con [id number] Stat Cat Scan 07/21/22 08:[address] abdomen pelvis wo con [id number] Urgent Cat Scan 07/29/22 11:[address] foot RT wo con* [id number] Routine Cat Scan 07/21/22 13:48 Completed XR KUB portable [id number] Routine Exams 07/28/22 11:03 Completed XR chest 1V portable [id number] Stat Exams 07/21/22 10:05 [place] [id number] Routine Ultrasound 07/22/22 08:40 Completed Pending at discharge Category Date Time Status Complete Blood Count w/Auto AM LABS Lab 07/30/22 04:00 Ordered Complete Blood Count w/Auto AM LABS Lab 07/31/22 04:00 Ordered Comprehensive Metabolic Panel AM LABS Lab 07/30/22 04:00 Ordered Comprehensive Metabolic Panel AM LABS Lab 07/31/22 04:00 Ordered Magnesium AM LABS Lab 07/30/22 04:00 Ordered Magnesium AM LABS Lab 07/31/22 04:00 Ordered PRBC [Leukocyte Reduced RBC] Routine Lab 07/25/22 16:50 Results Phosphorus AM LABS Lab 07/30/22 04:00 Ordered Phosphorus AM LABS Lab 07/31/22 04:00 Ordered Type and Screen Routine Lab 07/25/22 16:50 Results Pathology: Surgical [PTH] Routine Pth 07/25/22 17:36 Received Radiology Impressions Chest X-Ray 07/21/22 10:05 Impression: No change from previous chest x-ray. Duplex Scan Lower Extremity Artery 07/22/22 08:40 IMPRESSION: 1. Right posterior tibial artery lack of color blood flow. 2. Subcutaneous edema in the lower extremity. 3. Biphasic to monophasic blood flow in the common femoral, superficial femoral, and popliteal arteries reflecting a degree of stenosis. KUB X-Ray 07/28/22 11:03 IMPRESSION: 1. No acute bowel dilatation or obstruction is seen. 2. Lumbar spine osteoarthritis Abdomen/Pelvis CT 07/29/22 11:44 IMPRESSION: Essentially no change since the previous examination without evidence of colitis. Laboratory Results WBC 9.7 10^3/uL (4.0-10.0) 07/29/22 04:47 RBC 2.75 10^6/uL (4.1-5.3) L 07/29/22 04:47 Hgb 8.5 g/dL (11.5-15.3) L 07/29/22 04:47 Hct 27.8 % (37.0-47.0) L 07/29/22 04:47 MCV 101.1 fl (81-99) H 07/29/22 04:47 MCH 30.9 pg (28.0-34.0) 07/29/22 04:47 MCHC 30.6 g/dL (30.0-36.0) 07/29/22 04:47 RDW 18.0 % (12.1-15.1) H 07/29/22 04:47 Plt Count 204 10^3/cmm (130-400) 07/29/22 04:47 MPV 10.0 fL (7.4-10.4) 07/29/22 04:47 Neut % (Auto) 73.6 % 07/29/22 04:47 Lymph % (Auto) 9.4 % 07/29/22 04:47 Edwards % (Auto) 10.3 % 07/29/22 04:47 Eos % (Auto) 3.9 % 07/29/22 04:47 Baso % (Auto) 0.6 % 07/29/22 04:47 Neut # (Auto) 7.15 10^3/uL (1.8-7.7) 07/29/22 04:47 Lymph # (Auto) 0.9 10^3/uL (0.8-4.8) 07/29/22 04:47 Edwards # (Auto) 1.0 10^3/uL (0.2-0.9) H 07/29/22 04:47 Eos # (Auto) 0.4 10^3/uL (0.0-0.8) 07/29/22 04:47 Baso # (Auto) 0.1 10^3/uL (0.0-0.1) 07/29/22 04:47 Nucleated RBC % (auto) 0 % 07/29/22 04:47 Total Counted 100 (0-100) 07/25/22 15:17 Atypical Lymphs % 0.0 % (0-5) 07/25/22 15:17 Absolute Neutrophils 3.1 10^3/cmm (1.4-6.5) 07/25/22 15:17 Segmented Neutrophils 71 % 07/25/22 15:17 Abs Segm Neuts (Man) 3.1 10/cmm (1.6-7.1) 07/25/22 15:17 Band Neutrophils 2.0 % 07/25/22 15:17 Abs Band Neuts (Man) 0.1 10^3/cmm (0.0-1.2) 07/25/22 15:17 Absolute Lymphocytes 0.9 10^3/cmm (1.2-3.4) L 07/25/22 15:17 Lymphocytes (Manual) 21 % 07/25/22 15:17 Monocytes (Manual) 3.0 % 07/25/22 15:17 Absolute Monocytes 0.1 10^3/cmm (0.1-0.6) 07/25/22 15:17 Eosinophils (Manual) 2 % 07/25/22 15:17 Absolute Eosinophils 0.0 10^3/cmm (0.0-0.7) 07/25/22 15:17 Basophils (Manual) 0.0 % 07/25/22 15:17 Absolute Basophils 0.0 10^3/cmm (0.0-0.2) 07/25/22 15:17 Metamyelocytes 1.0 % 07/25/22 15:17 Nucleated RBCs # 0.0 /100WBC 07/29/22 04:47 Platelet Estimate Normal (Normal) 07/25/22 15:17 Anisocytosis 1+ H 07/25/22 15:17 ESR 46 mm/hr (0-15) H 07/21/22 08:37 PT 15.90 SECONDS (12.1-14.9) H 07/22/22 09:17 INR 1.24 (0.8-1.2) H 07/22/22 09:17 Specimen Type Venous 07/29/22 12:18 Sample Site Not specified 07/29/22 12:18 Jalil Test N/a 07/29/22 12:18 VBG pH 7.42 (7.32-7.42) 07/29/22 12:18 VBG pCO2 44.3 mmHg (41-51) 07/29/22 12:18 VBG pO2 28.2 mmHg (25-40) 07/29/22 12:18 VBG HCO3 28.4 mmol/L (24-28) H 07/29/22 12:18 VBG Base Excess 3.5 mmol/L (-3.0-3.0) H 07/29/22 12:18 VBG Hematocrit 27.7 % (37-47) L 07/29/22 12:18 O2 Delivery Device Not Reportable 07/29/22 12:18 Sales Development Specialist ID [id number] 07/29/22 12:18 Sodium 135 mmol/L (136-145) L 07/29/22 04:47 Potassium 4.0 mmol/L (3.5-5.1) 07/29/22 04:47 Chloride 98 mmol/L (98-107) 07/29/22 04:47 Carbon Dioxide 25 mmol/L (22-29) 07/29/22 04:47 Anion Gap 16.0 (5-19) 07/29/22 04:47 BUN 23 mg/dL (6-20) H 07/29/22 04:47 Creatinine 4.8 mg/dL (0.5-0.9) H 07/29/22 04:47 GFR Calculation 9.3 mL/min (90-130) L 07/29/22 04:47 Glucose 116 mg/dL (65-115) H 07/29/22 04:47 Estimat Average Glucose 103 07/22/22 05:29 Hemoglobin A1c 5.2 % (4.0-6.0) 07/22/22 05:29 Calculated Osmolality 285 mOsm/kg (285-295) 07/29/22 04:47 Lactic Acid 1.3 mmol/L (0.5-2.2) 07/21/22 08:37 Lactate 0.7 mmol/L (0.5-2.2) 07/29/22 12:18 Calcium 8.3 mg/dL (8.5-10.5) L 07/29/22 04:47 Phosphorus 4.0 mg/dL (2.5-4.5) 07/29/22 04:47 Magnesium 2.0 mg/dL (1.7-2.3) 07/29/22 04:47 Iron 58 ug/dL (37-145) 07/22/22 05:29 TIBC 89 mcg/dl 07/22/22 05:29 % Saturation 65.1 % (20-50) H 07/22/22 05:29 Unsat Iron Binding 31 ug/dL (112-347) L 07/22/22 05:29 Ferritin 1307 ng/mL (15-150) H 07/22/22 05:29 Total Bilirubin 0.6 mg/dL (0.15-1.2) 07/29/22 04:47 AST 14 U/L (0-32) 07/29/22 04:47 ALT 6 U/L (0-33) 07/29/22 04:47 Alkaline Phosphatase 138 U/L (35-105) H 07/29/22 04:47 C-Reactive Protein 41.4 mg/L (0.0-4.9) H 07/21/22 08:37 Total Protein 6.9 g/dL (6.6-8.7) 07/29/22 04:47 Albumin 2.9 g/dL (3.5-5.2) L 07/29/22 04:47 Globulin 4.0 g/dL (1.3-4.6) 07/29/22 04:47 Triglycerides 83 mg/dL (0-150) 07/22/22 05:29 Cholesterol 79 mg/dL (0-200) 07/22/22 05:29 LDL Cholesterol, Calc 34 mg/dL (50-129) L 07/22/22 05:29 Total VLDL Cholesterol 17 mg/dL (0-30) 07/22/22 05:29 HDL Cholesterol 28 mg/dL (60-100) L 07/22/22 05:29 Cholesterol/HDL Ratio 2.82 mg/dL (0.0-4.40) 07/22/22 05:29 Vitamin B12 637 pg/mL (232-1245) 07/21/22 08:37 25-OH Vitamin D Total 30 ng/mL (30-100) 07/22/22 05:29 Folate 7.7 ng/mL (4.8-37.3) 07/21/22 08:37 Procalcitonin 29.52 ng/mL (0-0.5) H 07/21/22 08:37 TSH 2.44 uIU/mL (0.27-4.20) 07/21/22 08:37 PTH Intact 81.9 pg/mL (15-65) H 07/22/22 05:29 Calcium (PTH Intact) 7.9 mg/dL (8.5-10.5) L 07/22/22 05:29 Urine Color Yellow (Yellow) 07/21/22 10:20 Urine Appearance Clear (CLEAR) 07/21/22 10:20 Urine pH 6.5 (5-7) 07/21/22 10:20 Ur Specific [place] 1.005 (1.005-1.030) 07/21/22 10:20 Urine Protein 3+ (Negative) H 07/21/22 10:20 Urine Glucose (UA) 1+ (Normal) H 07/21/22 10:20 Urine Ketones 1+ (Negative) H 07/21/22 10:20 Urine Blood 2+ (Negative) H 07/21/22 10:20 Urine Nitrate Negative (Negative) 07/21/22 10:20 Urine Bilirubin Neg (Negative) 07/21/22 10:20 Urine Urobilinogen Norm mg/dL (Negative) 07/21/22 10:20 Ur Leukocyte Esterase Trace (Negative) H 07/21/22 10:20 Urine RBC 0-4 /hpf (0-2) H 07/21/22 10:20 Urine WBC 0-4 /hpf (0-5) H 07/21/22 10:20 Ur Squamous Epith Cells 5-10 /hpf (0-5) H 07/21/22 10:20 Amorphous Sediment Not Reportable 07/21/22 10:20 Urine Bacteria Trace /hpf (NONE) 07/21/22 10:20 Vancomycin Trough 17.3 ug/mL (10-15) H 07/28/22 04:00 Random Vancomycin 13.0 ug/mL (20.0-40.0) L 07/24/22 04:34 Coronavirus 229E (PCR) Not detected (NOT DETECT) 07/21/22 11:50 Hep Bs Antigen Non-reactive (Nonreactive) 07/21/22 08:37 Hep Bs Antibody 85.5 (11.5-1000) 07/21/22 08:37 Hepatitis C Antibody Non-reactive (Nonreactive) 07/21/22 08:37 SARS-CoV-2 (PCR) Not detected (NOT DETECT) 07/21/22 11:50 Blood Type A Positive 07/25/22 16:50 Rho(D) Type Positive 07/25/22 16:50 Antibody Screen Negative 07/25/22 16:50 Crossmatch See Detail 07/25/22 16:50 Vitals Last Vital Signs Temp 97.7 F 07/29/22 15:58 Pulse 77 07/29/22 15:58 Resp 16 07/29/22 15:58 BP 148/79 07/29/22 15:58 Pulse Ox 99 07/29/22 15:58 O2 Del Method 07/29/22 15:58 O2 Flow Rate 2 07/29/22 00:00 Discharge Plan Discharge Patient Disposition: Home Condition: Stable Prescriptions: New vancomycin 250 mg capsule See Rx Instructions .ROUTE .COMPLEX 42 Days Qty: 40 0RF Rx Instructions: 250 mg twice daily for next 1 week, 250 mg once daily for next 1 week, 250 mg every 72 hours for 4-6 weeks after that. 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 See Rx Instructions .Route .MEDSUPPLY Qty: 1 0RF Rx Instructions: As directed Euthyrox 150 mcg tablet 150 mcg PO QAM Qty: 90 0RF nitroglycerin 0.4 mg Tablet, Sublingual 0.4 mg sublingual Q5M PRN (Reason: Chest Pain) 30 Days Qty: 30 2RF promethazine 25 mg tablet 25 mg PO Q6H PRN (Reason: Nausea And Vomiting) aspirin [Children's Aspirin] 81 mg tablet,chewable 81 mg PO BEDTIME Bio 360 Caps 1 cap PO DAILY Held hydralazine 50 mg tablet 50 mg PO BID Qty: 60 0RF Hold Instructions: see pcp before resuming Rx Instructions: MUST have follow-up for further refills carvedilol [Coreg] 25 mg Tablet 25 mg PO BID Hold Instructions: see pcp before resuming clopidogrel 75 mg tablet 75 mg PO BEDTIME Hold Instructions: see pcp and go over your repeat blood work results before resuming calcium carbonate [Tums] 300 mg (750 mg) Tablet,Chewable 2 tab PO PRN Hold Instructions: see pcp Lasix 80 mg tablet 120 mg PO BID Hold Instructions: hold and see pcp before resuming Discontinued doxazosin 8 mg tablet 8 mg PO BID Discharge Orders: Discharge Order (Routine); Ordered 07/29/22 Ordered By: Camille Pyle Other Ambulatory Orders: Basic Metabolic Panel (Routine) Timeframe: 3 Days Facility: [facility] - Location: Lab - Main Lab Ordered By: Camille Pyle Complete Blood Count w/Auto (Routine) Timeframe: 3 Days Location: Determined by Patient Ordered By: Camille Pyle Referrals: Paolo Cabrera DO [Physician] - 08/09/22 9:20 am Althea Larkin MD [Hospitalist] - 08/11/22 11:00 am (Recurrent C. difficile. ) Karen Bear MD [Primary Care Provider] - 08/08/22 10:00 am Discharge Diet: Cardiac Discharge Activity: Increase activity as tolerated Patient Instructions: Clostridium Difficile, Vancomycin (By mouth), Sevelamer (By mouth), Lymphadenopathy, Below the Knee Amputation (DC), Opioid Safety Activity Restrictions/Additional Instructions: You have been diagnosed with C. difficile diarrhea at this visit. Please complete your oral vancomycin as advised as discussed during your hospital stay for the next 4 to 6 weeks. Please follow-up with infectious disease specialist Dr. Larkin as an outpatient. I am holding all your blood pressure medications at this time including your Plavix until you are seen by your primary care doctor. Your blood pressure has been running on the lower side as you are aware. We will hold off on restarting them at this time. I discussed this with nephrology as well. Please see her primary care and slowly resume them as clinically warranted. Please make sure you attend your dialysis session Monday as previously directed. Please follow-up with general surgery within 2 weeks. If you develop a fever, worsening chills or any worsening symptoms including lightheadedness, dizziness, chest pain, shortness of breath, worsening diarrhea, abdominal pain, difficulty breathing, blood in stool worsening of surgical wound please return to the ER immediately. Discharge Attestations Time Spent in Discharge Care*: greater than 30 min Status at Discharge: Cognitive status at discharge: cognitively intact, Behavioral status at discharge: cooperative, Quality Metrics Clinical Quality Measures [ No reported AMI, CVA or VTE this stay] Coding Level of Care Code Acute Chg FW DC note Diagnoses Acute osteomyelitis of right calcaneus M86.171 Status post below knee amputation of right lower extremity Z89.511
== END 2022-07-29 17:36 | disposition home health service (06) | DRG 853 ==
LOC: ER 08:18 → MEDSURG 12:35
PROVIDERS: Internal Medicine; Internal Medicine Nephrology; Surgery; Admitting Provider Student in an Organized Health Care Education/Training Program; Emergency Provider Family Medicine; PCP Family Medicine; Visit Provider Internal Medicine
PROC: 0Y6H0Z2 Detachment at Right Lower Leg, Mid, Open Approach (ICD-10-PCS; CPT 27880; principal; 2022-07-25 14:40)
DX: A41.9 Sepsis, unspecified organism (principal); N18.6 End stage renal disease; L03.115 Cellulitis of right lower limb; I13.2 Hypertensive heart and chronic kidney disease with heart failure and with stage 5 chronic kidney disease, or end stage renal disease; I50.22 Chronic systolic (congestive) heart failure; L97.412 Non-pressure chronic ulcer of right heel and midfoot with fat layer exposed; M86.171 Other acute osteomyelitis, right ankle and foot; A04.72 Enterocolitis due to Clostridium difficile, not specified as recurrent; D62 Acute posthemorrhagic anemia; L02.611 Cutaneous abscess of right foot; E44.1 Mild protein-calorie malnutrition; Z68.41 Body mass index [BMI] 40.0-44.9, adult; I25.10 Atherosclerotic heart disease of native coronary artery without angina pectoris; Z95.5 Presence of coronary angioplasty implant and graft; I25.5 Ischemic cardiomyopathy; E11.22 Type 2 diabetes mellitus with diabetic chronic kidney disease; Z99.2 Dependence on renal dialysis; Z91.15 Patient's noncompliance with renal dialysis; Z89.512 Acquired absence of left leg below knee; Z86.14 Personal history of Methicillin resistant Staphylococcus aureus infection; D63.1 Anemia in chronic kidney disease; E11.610 Type 2 diabetes mellitus with diabetic neuropathic arthropathy; E11.69 Type 2 diabetes mellitus with other specified complication; E11.42 Type 2 diabetes mellitus with diabetic polyneuropathy; E11.621 Type 2 diabetes mellitus with foot ulcer; E78.5 Hyperlipidemia, unspecified; E03.9 Hypothyroidism, unspecified; Z79.82 Long term (current) use of aspirin; D50.9 Iron deficiency anemia, unspecified
CPT/HCPCS: 36415; 36430; 71045; 73700; 74018; 74176; 80048; 80053; 80061; 80202; 81001; 82274; 82306; 82310; 82607; 82728; 82746; 82803; 83036; 83540; 83550; 83605; 83630; 83735; 83970; 84100; 84145; 84443; 85007; 85025; 85027; 85610; 85651; 86140; 86403; 86706; 86803; 86850; 86900; 86920; 87040; 87070; 87075; 87077; 87186; 87205; 87340; 87449; 87493; 87506; 87635; 87641; 88307; 88311; 93005; 93926; 94664; 96365; 96372; 99285; J0713; J1100; J1170; J1200; J1642; J1644; J2405; J2543; J2704; J2765; J2795; J3010; J3370; J3490; J7030; J7050; P9016; P9041; P9047; Q3014; Q4081

== ENCOUNTER → 2022-08-15 09:22 | Outpatient (BNVA) | payer MEDICARE, MEDICAID, SELFPAY | PROVIDERS: PCP Family Medicine; Visit Provider Surgery | DX: Z98.890 Other specified postprocedural states (principal) | CPT/HCPCS: 99024 ==

== ENCOUNTER → 2022-08-25 10:56 | Outpatient (BNVA) | payer MEDICARE, MEDICAID, SELFPAY | PROVIDERS: PCP Family Medicine; Visit Provider Student in an Organized Health Care Education/Training Program | DX: A04.72 Enterocolitis due to Clostridium difficile, not specified as recurrent (principal) | CPT/HCPCS: 99204 ==

== ENCOUNTER → 2022-08-26 08:26 | Outpatient (BNVA) | payer MEDICARE, MEDICAID, SELFPAY | PROVIDERS: PCP Family Medicine; Visit Provider Surgery | DX: Z98.890 Other specified postprocedural states (principal); Z89.511 Acquired absence of right leg below knee | CPT/HCPCS: 99024 ==

== ENCOUNTER 2022-08-26 12:38 | Outpatient (CLI) | payer MEDICARE, MEDICAID, SELFPAY | END 2022-08-26 12:39 | disposition home or self-care (01) | LOC: LAB 12:43 | PROVIDERS: PCP Family Medicine; Visit Provider Student in an Organized Health Care Education/Training Program | DX: A04.72 Enterocolitis due to Clostridium difficile, not specified as recurrent (principal) | CPT/HCPCS: 87493 ==

== ENCOUNTER 2022-09-19 08:48 | Emergency (ER) | payer MEDICARE, MEDICAID, SELFPAY ==
--- NOTE | 2022-09-19 09:36 | ED_ITS ---
HPI - CPR General: Chief Complaint: Cardiac Arrest/CPR Stated Complaint: Code Blue Source: patient Mode of arrival: EMS History of Present Illness: 62-year-old female who presents emergency room via EMS from the surgery center. She had been undergoing ocular procedure today and went into cardiac arrest shortly after induction. On arrival here she is intubated with an epi drip running. Initial onset of arrest was at 738 there ar e handwritten notes from the surgery center brought by EMS she is received multiple doses of push dose epi and has an epi drip running although I do not know the dose or the rate it ran out shortly after she arrived here. They did briefly achieve ROSC patient was on an epi drip in route and there are documented blood pressures at 2 separate occasions during resuscitation however on arrival here she has no palpable pulse and CPR is in progress Onset (ago): hour(s) (1 hour and 10 minutes after onset of arrest) Timing confirmed by: other (Anesthesiologist) Place: other ([facility] [place]) Bystander CPR performed: Yes Downtime before ACLS arrival (mins): 0 Initial findings in the field: no respirations and no pulse ROSC in the field: Yes Known history of: CAD and other Treatments prior to arrival: intubation, BMV, chest compressions, epinephrine mgs # and sodium bicarbonate Review of Systems General: Reports: ROS unobtainable due to endotracheal tube PFSH ED PFSH: Medical History Anemia Chronic kidney disease and blood loss, has previously required transfusion Anemia Aortic valve endocarditis (~04/2020) C. difficile diarrhea CAD (coronary artery disease) Charcot's joint of foot in type 2 diabetes mellitus Congestive heart failure systolic Diabetes Diabetes mellitus type 2, not on medications, HbA1c 10/2021 5.2 Diabetic ulcer of left foot Diabetic ulcer of right foot Diarrhea Difficult intravenous access Epidural abscess (~2017) ESRD (end stage renal disease) previously on peritoneal dialysis currently on hemodialysis History of colon polyps History of MRSA infection spinal abscess 2017 Hyperlipidemia Hypertension Hypothyroidism Ischemic cardiomyopathy EF 05/2020 65% >> 06/2021 15%, 09/2021 25%> 40% (02/01) 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 Severe proximal to mid LAD stenosis. Severe ostial diagonal artery stenosis. 2. Successful revascularization of the LAD with orbital arthrectomy and PCI with JD x 2 including bifurcation stenting of mid LAD and diagonal artery using mini-crush technique (2 stents placed in LAD and 1 in diagonal artery). History of cholecystectomy History of colonoscopy with polypectomy 2017 History of left below knee amputation History of lumbar surgery Due to epidural abscess in March 2018 Peritoneal dialysis catheter in place removal 05/20/21 S/P hemodialysis catheter insertion multiple Family History Mother Cancer Uterine and breast cancer Father Diabetes Other CAD (coronary artery disease) Social History Smoking and tobacco status: never smoked Alcohol intake: current Alcohol intake frequency: holidays/special occasions only Marital status: Physical Exam Narrative: EXAM NARRATIVE: CPR in progress on arrival PEA on first pulse check. No spontaneous respirations no cardiac activity no palpable pulse ACLS protocols followed MDM - Cardiac Arrest/CPR Medical Decision Making ACLS protocol was followed on arrival. Past medical history reviewed from our charts. Patient has a known history of end-stage renal disease for last dialysis was 2 days ago some normal run according to family members who are here. She was given calcium chloride and another dose of sodium bicarb. The epi drip ran out and we continued epi push doses we briefly did have identifiable cardiac activity on the ultrasound had good peripheral perfusion and oxygen saturations but could not document a blood pressure. Spontaneously lost cardiac activity and pulse and ACLS protocol was resumed. Patient had no response second time around. Consulted with family wishes to continue. ACLS protocols were continued I had Dr. Ann joined me in the trauma room and review. Given the patient's history and the length of downtime with no response we did not feel that further resuscitative efforts would be warranted. On the last pulse check patient had agonal rhythm with occasional electrical activity but mostly asystole on ultrasound there is no cardiac activity. It was a consensus of both physicians present that resuscitative efforts should be ceased. Medical Records I reviewed the patient's medical records. Lab Data I reviewed the patient's lab results. Critical Care Time Critical Care Time: Critical Care Time: Yes Total Critical Care Time: 40 Attestation: The high probability of a clinically significant, sudden or life threatening deterioration of the patient's cardiovascular respiratory system(s) required my full and direct attention, intervention and personal management. The critical care time is as shown. 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 See Rx Instructions .Route .MEDSUPPLY Qty: 1 0RF Rx Instructions: As directed (DME) portable oxygen tank See Rx Instructions .Route .MEDSUPPLY Qty: 1 0RF Rx Instructions: As directed Dificid 200 mg tablet 200 mg PO BID 10 Days Qty: 20 0RF hydralazine 50 mg tablet 50 mg PO BID Qty: 60 0RF Hold Instructions: see pcp before resuming Rx Instructions: MUST have follow-up for further refills Euthyrox 150 mcg tablet 150 mcg PO QAM Qty: 90 1RF nitroglycerin 0.4 mg Tablet, Sublingual 0.4 mg sublingual Q5M PRN (Reason: Chest Pain) 30 Days Qty: 30 2RF carvedilol [Coreg] 25 mg Tablet 25 mg PO BID Hold Instructions: see pcp before resuming clopidogrel 75 mg tablet 75 mg PO BEDTIME Hold Instructions: see pcp and go over your repeat blood work results before resuming aspirin [Children's Aspirin] 81 mg tablet,chewable 81 mg PO BEDTIME calcium carbonate [Tums] 300 mg (750 mg) Tablet,Chewable 2 tab PO PRN Hold Instructions: see pcp Bio 360 Caps 1 cap PO DAILY promethazine 25 mg tablet 25 mg PO Q6H PRN (Reason: Nausea And Vomiting) Qty: 90 1RF Lasix 80 mg tablet 120 mg PO BID Hold Instructions: hold and see pcp before resuming Referrals: Karen Bear MD [Primary Care Provider] - Coding Level of Care Code ED [employer] Blanket Maker for Gregorio Thompson
--- NOTE | 2022-09-19 14:19 | PC.NURSE ---
Pt was brought in by EMS post cardiac arrest, Per EMS pt coded at 0742 when they came into the room CPR was being preformed by EMS, Pt was intubated and RT took over bagging the PT, pt was moved to our bed and was placed on our zoll. Pt was in PEA, i checked for a carotid pulse and was unable to find one. CPR was resumed. The pt had a IV in the right AC which was used for pushing meds.The supervisor melt house was recording times and telling us when to do pulse checks and give meds. Dr. Saunders was at bedside. EPI, Bicarb, and calcium was given at the times the supervisor melt house told me to give them. I checked the carotid during each pulse check and was never able to find pulse, Pt remained in PEA. After several rounds of CPR Dr. Wilson called the code at 0908.
== END 2022-09-19 18:58 | disposition expired ==
PROVIDERS: Emergency Provider Family Medicine; PCP Family Medicine
DX: I46.9 Cardiac arrest, cause unspecified (principal); E11.22 Type 2 diabetes mellitus with diabetic chronic kidney disease; I13.2 Hypertensive heart and chronic kidney disease with heart failure and with stage 5 chronic kidney disease, or end stage renal disease; I50.22 Chronic systolic (congestive) heart failure; N18.6 End stage renal disease; Z99.2 Dependence on renal dialysis
CPT/HCPCS: 99285; 99291; 99292; J0171; J3490